=== PATIENT | male | born 1935 | race Caucasian/White ===

== ENCOUNTER 2020-07-23 13:57 | Outpatient (REF) | payer MEDICARE, SELFPAY ==
[2020-07-23 15:44] LABS: Blood Urea Nitrogen 25 mg/dL (9-16); Estimated Glomerular Filt Rate > 60
== END 2020-07-23 13:58 | disposition home or self-care (01) ==
LOC: HO.LAB 13:57
PROVIDERS: PCP Internal Medicine; Visit Provider Internal Medicine
DX: R53.83 Other fatigue (principal)
CPT/HCPCS: 82565; 84520

== ENCOUNTER 2020-07-30 10:23 | Outpatient (REF) | payer MEDICARE, SELFPAY ==
--- NOTE | 2020-07-30 10:27 | CT_ITS ---
EXAMINATION: CT CHEST WITH CONTRAST CLINICAL INFORMATION: Lung nodule. COMPARISON: CT chest 05/07/2020, 10/31/2019 and 03/18/2019. TECHNIQUE: Multidetector volumetric CT imaging of the chest was obtained after the administration of 50 mL of Omnipaque 350 intravenous contrast without immediate adverse reactions. Axial MIP volume rendering provided. Sagittal and coronal reformatted images were obtained. This CT examination was performed using dose optimization techniques as appropriate, variously including the following: *Automated exposure control *Adjustment of mA and/or kV according to patient size (this includes techniques or standardized protocols for targeted exams where dose is matched to indication/reason for exam; i.e. extremities or head) *Use of iterative reconstruction technique DLP: 217 mGy-cm. FINDINGS: CMV DRIVER: Unremarkable. LUNGS: The lungs are hyperinflated with punctate 1-2 mm calcifications in the left lung base and right lung base, stable. These are most likely calcified granulomas. No definite noncalcified nodule or mass seen. MEDIASTINUM: The thyroid lobes are symmetrical and normal. The central trachea and the bronchi are widely patent. The great vessels are normal. Small shotty lymph nodes are seen in the mediastinum. There are coronary artery calcified lesions present. There is no pericardial effusion. Again visualized is a 1.5 x 1.2 cm lesion to the right of esophagus and posterior to the gaurav measuring 40 Hounsfield units. PLEURA: There is no pleural effusion. No pleural mass or thickening. AXILLA: No abnormal lymph nodes seen. The chest wall appears unremarkable. UPPER ABDOMEN: Unremarkable. OSSEOUS STRUCTURES: Again visualized is a left lateral 6th rib nonhealed fracture. No additional fractures seen. No lytic or sclerotic process seen. There is mild ventral spondylosis. CT/CT chest w con IMPRESSION: Stable posterior mediastinal lesion, posterior to the gaurav. It measures 1.5 x 1.2 cm. Previously it measured 1.8 x 1.1 cm and prior to that 1.7 x 1.0 cm. It appears stable. Multiple calcified bibasilar nodules, likely granulomas, are stable.
[2020-07-30] MEDS: iohexoL 350 MG/ML 100 ML INFUS..BTL 65 ML IV (11:11)
== END 2020-07-30 10:24 | disposition home or self-care (01) ==
LOC: HO.CT 10:23
PROVIDERS: PCP Internal Medicine; Visit Provider Internal Medicine
DX: R91.1 Solitary pulmonary nodule (principal)
CPT/HCPCS: 71260; Q9967

== ENCOUNTER 2020-12-14 15:28 | Inpatient (IN) | payer MEDICARE, SELFPAY ==
--- NOTE | ~2020-12-14 | XR_ITS ---
EXAMINATION: XR CHEST CLINICAL INFORMATION: Palpitations COMPARISON: 07/30/2020 TECHNIQUE: Frontal view of the chest was obtained. FINDINGS: Cardiac leads overlie the chest. Lungs are clear. No consolidation, pneumothorax, or pleural effusion. Cardiac and mediastinal contours are normal. Pulmonary vasculature appears normal. No acute osseous findings. Degenerative spondylosis is present in the thoracic spine. Chronic right rotator cuff tear. Osteoarthritis is present in the acromioclavicular and glenohumeral joints. XR/XR chest 1V IMPRESSION: No acute cardiopulmonary findings.
[2020-12-14 15:53] VITALS: BP 184/76; PULSE 42; RESP 18; TEMP 37.1; O2SAT 97; BMI 31.6
--- NOTE | 2020-12-14 16:03 | ED.ARRPALP ---
HPI - Arrhythmia/Palpitations General Chief Complaint: Arrhythmia/Palpitations Stated Complaint: afib Time Seen by Provider: 12/14/20 15:54 Source: patient Mode of arrival: ambulatory Limitations: no limitations History of Present Illness HPI narrative: Patient sent by his primary care doctor for irregular heartbeats patient denies no chest pain no shortness of breath no syncope episode . Patient been feeling dizzy for last 1 week 5 days ago his legs gave out without any syncope . patient does not feel any palpitation never had any heart issues in the past Related Data Home Medications Medication Instructions Recorded Confirmed aspirin 81 mg PO DAILY 12/14/20 12/14/20 atorvastatin 1 tab PO BEDTIME 12/14/20 12/14/20 cholecalciferol (vitamin D3) 1 cap PO DAILY 12/14/20 12/14/20 fluticasone propionate 2 spray INTRANASAL DAILY 12/14/20 12/14/20 insulin aspart U-100 [Novolog 1 sliding scale dose SUBCUT 12/14/20 U-100 Insulin aspart] USEASDIRECTD insulin degludec [Tresiba 88 unit SUBCUT DAILY 12/14/20 12/14/20 FlexTouch U-100] ipratropium-albuterol [Combivent 1 puff INHALATION QID 12/14/20 12/14/20 Respimat] losartan 1 tab PO DAILY 12/14/20 12/14/20 metoprolol succinate 1 tab PO DAILY 12/14/20 12/14/20 mirabegron [Myrbetriq] 1 tab PO DAILY 12/14/20 12/14/20 multivitamin 1 tab PO DAILY 12/14/20 12/14/20 pregabalin 1 cap PO TID 12/14/20 12/14/20 Allergies Allergy/AdvReac Type Severity Reaction Status Date / Time No Known Allergies Allergy Mild N/A Unverified 05/10/20 14:56 Review of Systems Review of Systems: Constitutional : No Weight loss, No Fever, No Chills ENT/Mouth : No sore throat, No Rhinorrhea Eyes: No Eye Pain, No Swelling Cardiovascular : No Chest Pain, no palpitations Respiratory : No Cough, No Sputum, no shortness of breath Gastrointestinal : no Nausea, No Vomiting, No Diarrhea, No abdominal Pain, no black stools Genitourinary : No Dysuria, No Urinary Frequency Musculoskeletal : No joint pain, No Myalgias, No Joint Swelling Skin : No Skin Lesions, No rash Neuro : No Weakness, No Numbness, ++ Dizziness, No Headache Psych : No Anxiety/Panic, No Depression Heme/Lymph: No Bruising, No Lymphadenopathy Endocrine : No Polyuria, No Polydipsia All other systems reviewed and are negative [facility] Past Medical History Medical History CAD (coronary artery disease) Diabetes HLD (hyperlipidemia) HTN (hypertension) Myocardial infarct, old Prostate CA Social History Social History Household Members: Significant Other Housing: House Do you presently have visiting nurse or other home services: No Smoking Status: Former smoker Use of substances other than those prescribed or required for medical reasons: No Have you been hit, kicked, punched, or otherwise hurt by someone within the past year? If so, by whom?: No Do you feel safe in your current relationship?: Yes Is there a partner from a previous relationship who is making you feel unsafe now?: No Are you made to feel afraid or neglected: No Spiritual Healthcare Practices: mu-ism Cultural Healthcare Practices: rare blood rh neg B, would accept Advance Directives: No Advance Directives Information Provided: Yes Advance Directives on File: Yes Do you have thoughts of harming others: None Do you have a plan to hurt others: No Plan Recently lost weight without trying: No Physical Exam Vital Signs: Vital Signs: Last Vital Signs Temp 97.8 F 12/15/20 00:00 Pulse 55 12/15/20 00:00 Resp 20 12/15/20 00:00 BP 165/57 H 12/15/20 00:00 Pulse Ox 97 12/15/20 00:00 Body Mass Index 31.6 Appearance: Alert. Oriented X3. No acute distress. Eyes: Pupils equal, round and reactive to light. ENT: Pharynx normal. Neck: Normal inspection. Neck supple. CVS: Irregularly with frequent PVCs no murmur or gallop. Pulses normal. Respiratory: No respiratory distress. Breath sounds normal. Abdomen: Soft and nontender. Bowel sounds are present, no mass palpable, no CVA tenderness Skin: Skin warm and dry. Normal skin color. Normal skin turgor. Extremities: No lower extremity edema. Neuro: Oriented X 3. No motor deficit. No sensory deficit. MDM - Arrhythmia/Palpitations MDM Narrative Medical decision making narrative: Patient new onset of AFib with bigeminy low platelet counts will admit patient for further evaluation including echo and possible pacemaker placement. Lab Data Attestation: I reviewed the patient's lab results. Result diagrams: 12/14/20 16:03 12/14/20 16:03 Labs: Lab Results 12/14/20 12/14/20 12/14/20 Range/Units 16:03 16:03 16:03 WBC 2.7 L (4.8-10.8) X10*3/uL RBC 4.31 L (4.60-5.80) X10*6/uL Hgb 14.4 (14.0-18.0) g/dl Hct 41.5 L (42-52) % MCV 96.3 (80-98) fL MCH 33.4 H (27.0-33.0) pg MCHC 34.7 (31.0-36.0) g/dl RDW 14.7 (11.0-16.0) % Plt Count 44 L (160-400) X10*3/uL MPV 10.5 (9.4-12.4) fL Immature Gran % (Auto) 1.1 H (0.0-0.4) % Neut % (Auto) 48.1 (45-73) % Lymph % (Auto) 33.1 (20-40) % [place] % (Auto) 16.9 H (2-11) % Eos % (Auto) 0.8 (0-4) % Baso % (Auto) 0.0 (0-2) % Lymph # (Auto) 0.9 L (1.2-4.9) X10*3/uL [place] # (Auto) 0.5 (0.1-1.2) X10*3/uL Eos # (Auto) 0.0 (0.0-0.4) X10*3/uL Baso # (Auto) 0.0 (0.0-0.2) X10*3/uL Abs Immat Gran (auto) 0.03 (0.00-0.03) X10*3/uL Absolute Neuts (auto) 1.3 L (2.0-8.3) X10*3/uL Absolute Nucleated RBC 0.000 (0.0-0.012) X10*3/uL Nucleated RBC % (auto) 0.0 (0.0-0.2) /100WBC Smear Tech's Comments VERIFIED PT 14.2 H (10.8-13.0) SEC INR 1.2 H (0.9-1.1) APTT 32.5 (24.1-38.0) SEC Sodium 135 (135-145) mmol/L Potassium 4.0 (3.3-5.1) mmol/L Chloride 102 (96-108) mmol/L Carbon Dioxide 21 L (22-29) mmol/L Anion Gap 16 (12-20) BUN 34 H (9-16) mg/dL Creatinine 1.37 (0.5-1.4) mg/dL Estim Creat Clear Calc 41.2 Estimated GFR 50 Random Glucose 259 H (60-115) mg/dL Calcium 8.4 (8.4-10.2) mg/dL Magnesium 1.9 (1.6-2.6) mg/dL Total Bilirubin 2.0 H (0.0-1.0) mg/dL Direct Bilirubin 0.8 H (0.0-0.5) mg/dL AST 121 H (5-37) U/L ALT 89 H (0-40) U/L Alkaline Phosphatase 92 (39-117) U/L Troponin I High Sens (<3.5-35.0) ng/L B-Natriuretic Peptide (<100) pg/mL Total Protein 5.8 L (6.5-8.0) g/dL Albumin 3.3 L (3.5-5.0) g/dL TSH 1.67 (0.32-4.0) uIU/mL Urine Color Urine Appearance Urine pH (5.0-8.0) Ur Specific [place] (1.005-1.025) Urine Protein (NEG-TRACE) MG/DL Urine Glucose (UA) (NEG) MG/DL Urine Ketones (NEG) MG/DL Urine Blood (NEG) Urine Nitrite (NEG) Ur Leukocyte Esterase (NEG) Urine RBC (0) /HPF Urine WBC (0-4) /HPF Ur Squamous Epith Cells /LPF Urine Bacteria /LPF COVID-19 ([facility]) (Negative) COVID-19 Clin Com 12/14/20 12/14/20 12/14/20 Range/Units 16:03 16:03 17:02 WBC (4.8-10.8) X10*3/uL RBC (4.60-5.80) X10*6/uL Hgb (14.0-18.0) g/dl Hct (42-52) % MCV (80-98) fL MCH (27.0-33.0) pg MCHC (31.0-36.0) g/dl RDW (11.0-16.0) % Plt Count (160-400) X10*3/uL MPV (9.4-12.4) fL Immature Gran % (Auto) (0.0-0.4) % Neut % (Auto) (45-73) % Lymph % (Auto) (20-40) % [place] % (Auto) (2-11) % Eos % (Auto) (0-4) % Baso % (Auto) (0-2) % Lymph # (Auto) (1.2-4.9) X10*3/uL [place] # (Auto) (0.1-1.2) X10*3/uL Eos # (Auto) (0.0-0.4) X10*3/uL Baso # (Auto) (0.0-0.2) X10*3/uL Abs Immat Gran (auto) (0.00-0.03) X10*3/uL Absolute Neuts (auto) (2.0-8.3) X10*3/uL Absolute Nucleated RBC (0.0-0.012) X10*3/uL Nucleated RBC % (auto) (0.0-0.2) /100WBC Smear Tech's Comments PT (10.8-13.0) SEC INR (0.9-1.1) APTT (24.1-38.0) SEC Sodium (135-145) mmol/L Potassium (3.3-5.1) mmol/L Chloride (96-108) mmol/L Carbon Dioxide (22-29) mmol/L Anion Gap (12-20) BUN (9-16) mg/dL Creatinine (0.5-1.4) mg/dL Estim Creat Clear Calc Estimated GFR Random Glucose (60-115) mg/dL Calcium (8.4-10.2) mg/dL Magnesium (1.6-2.6) mg/dL Total Bilirubin (0.0-1.0) mg/dL Direct Bilirubin (0.0-0.5) mg/dL AST (5-37) U/L ALT (0-40) U/L Alkaline Phosphatase (39-117) U/L Troponin I High Sens 61.4 H (<3.5-35.0) ng/L B-Natriuretic Peptide 111 H (<100) pg/mL Total Protein (6.5-8.0) g/dL Albumin (3.5-5.0) g/dL TSH (0.32-4.0) uIU/mL Urine Color YELLOW Urine Appearance CLEAR Urine pH 5.5 (5.0-8.0) Ur Specific [place] >= 1.030 H (1.005-1.025) Urine Protein 1+ H (NEG-TRACE) MG/DL Urine Glucose (UA) 100 H (NEG) MG/DL Urine Ketones 5 (NEG) MG/DL Urine Blood NEG (NEG) Urine Nitrite NEG (NEG) Ur Leukocyte Esterase NEG (NEG) Urine RBC 0-2 (0) /HPF Urine WBC 0-2 (0-4) /HPF Ur Squamous Epith Cells TRACE /LPF Urine Bacteria TRACE /LPF COVID-19 ([facility]) Negative (Negative) COVID-19 Clin Com See Note 12/14/20 Range/Units 20:38 WBC (4.8-10.8) X10*3/uL RBC (4.60-5.80) X10*6/uL Hgb (14.0-18.0) g/dl Hct (42-52) % MCV (80-98) fL MCH (27.0-33.0) pg MCHC (31.0-36.0) g/dl RDW (11.0-16.0) % Plt Count (160-400) X10*3/uL MPV (9.4-12.4) fL Immature Gran % (Auto) (0.0-0.4) % Neut % (Auto) (45-73) % Lymph % (Auto) (20-40) % [place] % (Auto) (2-11) % Eos % (Auto) (0-4) % Baso % (Auto) (0-2) % Lymph # (Auto) (1.2-4.9) X10*3/uL [place] # (Auto) (0.1-1.2) X10*3/uL Eos # (Auto) (0.0-0.4) X10*3/uL Baso # (Auto) (0.0-0.2) X10*3/uL Abs Immat Gran (auto) (0.00-0.03) X10*3/uL Absolute Neuts (auto) (2.0-8.3) X10*3/uL Absolute Nucleated RBC (0.0-0.012) X10*3/uL Nucleated RBC % (auto) (0.0-0.2) /100WBC Smear Tech's Comments PT (10.8-13.0) SEC INR (0.9-1.1) APTT (24.1-38.0) SEC Sodium (135-145) mmol/L Potassium (3.3-5.1) mmol/L Chloride (96-108) mmol/L Carbon Dioxide (22-29) mmol/L Anion Gap (12-20) BUN (9-16) mg/dL Creatinine (0.5-1.4) mg/dL Estim Creat Clear Calc Estimated GFR Random Glucose (60-115) mg/dL Calcium (8.4-10.2) mg/dL Magnesium (1.6-2.6) mg/dL Total Bilirubin (0.0-1.0) mg/dL Direct Bilirubin (0.0-0.5) mg/dL AST (5-37) U/L ALT (0-40) U/L Alkaline Phosphatase (39-117) U/L Troponin I High Sens 55.8 H (<3.5-35.0) ng/L B-Natriuretic Peptide (<100) pg/mL Total Protein (6.5-8.0) g/dL Albumin (3.5-5.0) g/dL TSH (0.32-4.0) uIU/mL Urine Color Urine Appearance Urine pH (5.0-8.0) Ur Specific [place] (1.005-1.025) Urine Protein (NEG-TRACE) MG/DL Urine Glucose (UA) (NEG) MG/DL Urine Ketones (NEG) MG/DL Urine Blood (NEG) Urine Nitrite (NEG) Ur Leukocyte Esterase (NEG) Urine RBC (0) /HPF Urine WBC (0-4) /HPF Ur Squamous Epith Cells /LPF Urine Bacteria /LPF COVID-19 ([facility]) (Negative) COVID-19 Clin Com ECG Data Attestation: I personally reviewed and interpreted this ECG as follows: Interpretation: Atrial fibrillation with frequent Bigeminy with heart rate 75 beats per minute right bundle-branch block left anterior fascicular block no acute ischemic changes Discharge Plan Discharge Clinical Impression: Near syncope Atrial fibrillation Qualifiers: Atrial fibrillation type: unspecified Qualified Code(s): I48.91 - Unspecified atrial fibrillation Patient Disposition: Admitted As Inpatient Interventions: Admission Worksheet (ED) Last Done: 12/15/20 00:14 Discharge Date/Time: 12/15/20 00:00
[2020-12-14 16:17] VITALS: PULSE 45
[2020-12-14 16:22] LABS: INTERNATIONAL NORM RATIO 1.2 (0.9-1.1); Prothrombin Time 14.2 SEC (10.8-13.0)
[2020-12-14 16:25] LABS: Partial Thromboplastin Time 32.5 SEC (24.1-38.0)
[2020-12-14 16:28] LABS: COVID-19 Test Negative (Negative)
[2020-12-14 16:30] LABS: Eosinophils Percent Auto 0.8 % (0-4); Hematocrit 41.5 % (42-52); Hemoglobin 14.4 g/dl (14.0-18.0); Imm Gran Abs Auto 0.03 X10*3/uL (0.00-0.03); Imm Gran Pct Auto 1.1 % (0.0-0.4); Lymphocytes Absolute Auto 0.9 X10*3/uL (1.2-4.9); Lymphocytes Percent Auto 33.1 % (20-40); MANUAL DIFF FLAG SCAN; Mean Corpuscular HGB Conc 34.7 g/dl (31.0-36.0); Mean Corpuscular Hemoglobin 33.4 pg (27.0-33.0); Mean Corpuscular Volume 96.3 fL (80-98); Mean Platelet Volume 10.5 fL (9.4-12.4); Monocytes Absolute Auto 0.5 X10*3/uL (0.1-1.2); Monocytes Percent Auto 16.9 % (2-11); Neutrophils Absolute Auto 1.3 X10*3/uL (2.0-8.3); Neutrophils Percent Auto 48.1 % (45-73); Red Blood Count 4.31 X10*6/uL (4.60-5.80); Red Cell Distribution Width 14.7 % (11.0-16.0); SCAN SMEAR FLAG 1; White Blood Count 2.7 X10*3/uL (4.8-10.8)
[2020-12-14 16:43] LABS: Platelet Count 44 X10*3/uL (160-400)
[2020-12-14 16:44] LABS: SLIDE REVIEW VERIFIED
[2020-12-14 16:46] LABS: Alanine Aminotransferase 89 U/L (0-40); Albumin Level 3.3 g/dL (3.5-5.0); Alkaline Phosphatase 92 U/L (39-117); Anion Gap 16 (12-20); Aspartate Amino Transferase 121 U/L (5-37); Bilirubin Direct 0.8 mg/dL (0.0-0.5); Blood Urea Nitrogen 34 mg/dL (9-16); Calcium 8.4 mg/dL (8.4-10.2); Carbon Dioxide 21 mmol/L (22-29); Chloride 102 mmol/L (96-108); Creatinine Clr Calc Pharmacy 41.2; Estimated Glomerular Filt Rate 50; Glucose Random 259 mg/dL (60-115); Magnesium 1.9 mg/dL (1.6-2.6); Sodium 135 mmol/L (135-145); Total Protein 5.8 g/dL (6.5-8.0)
[2020-12-14 16:52] LABS: B Type Natriuretic Peptide 111 pg/mL (<100); Troponin-I High Sensitivity 61.4 ng/L (<3.5-35.0)
[2020-12-14 17:06] LABS: Thyroid Stimulating Hormone 1.67 uIU/mL (0.32-4.0)
[2020-12-14 17:19] LABS: Glucose Urine UA 100 MG/DL (NEG); Leukocyte Esterase Urine NEG (NEG); Nitrite Urine NEG (NEG); PH 5.5 (5.0-8.0); Specific Gravity - Urine >= 1.030 (1.005-1.025); Urine Blood NEG (NEG); Urine Ketones 5 MG/DL (NEG); Urine Protein 1+ MG/DL (NEG-TRACE)
[2020-12-14 17:23] LABS: Appearance Urine CLEAR; Color Urine YELLOW
[2020-12-14 17:49] LABS: Bacteria Urine TRACE /LPF; RBC Urine 0-2 /HPF (0); Squamous Epithelial Cell Urine TRACE /LPF; WBC Urine 0-2 /HPF (0-4)
[2020-12-14 18:00] VITALS: BP 134/49; PULSE 35; RESP 18; O2SAT 95
[2020-12-14] MEDS: Aspirin Enteric Coated 81 MG TABLET.DR 162 MG PO (18:10)
[2020-12-14 19:10] VITALS: BP 116/37; PULSE 34; RESP 18; O2SAT 96
[2020-12-14] MEDS: Pregabalin 150 MG CAPSULE PO (19:35)
[2020-12-14 19:42] VITALS: BP 135/77; PULSE 63; RESP 18; TEMP 36.8; O2SAT 96
[2020-12-14 21:33] LABS: Troponin-I High Sensitivity 55.8 ng/L (<3.5-35.0)
[2020-12-14 22:03] VITALS: BP 123/101; PULSE 77; RESP 15; TEMP 36.7; O2SAT 96
--- NOTE | 2020-12-14 22:14 | PM.IMHP ---
History of Present Illness Date of Service: 12/14/20 Chief Complaint: dizziness, weakness 85-year-old male with past medical history coronary artery disease, diabetes, HLD, HTN, prostate cancer presents to the hospital with complaints of dizziness, and weakness. Patient reports that about few days prior to presentation he was standing in the bathroom and his legs gave out and he fell. He denies losing any consciousness, denies feeling any chest pain or palpitations, he just states that he felt like his legs suddenly became significantly weak and he could not stand and he just lowered himself to the floor. He needed help to get up and he was on the floor for short period time. He did not injure his head. He reports that on that same day he had received an injection from his urologist for his prostate cancer and felt that this may have been a reaction to it, he called his urologist's and his urologist did not feel that that was the cause. He reports that he initially felt better the next day but 1 day after that he started feeling dizziness and weakness again. And decided to call his PCP who after seeing him in the office and undergoing EKG asked him to come to the hospital directly. He denies having any headache, change in vision, no chest pain, no palpitations, no diarrhea or constipation, no urinary symptoms, no lower extremity edema, no abdominal pain nausea or vomiting. He denies any numbness tingling but reports chronic neuropathy of his lower legs which have caused him to have difficulty with balance and therefore he uses a cane to get around. Patient's temp of 98.7?, heart rate of 42, respiratory rate of 18, blood pressure 184/76, satting 97% on room air. He had a heart rate as low as 35 while sleeping, and reported dizziness when changing position. Labs are significant for WBC count of 2.7 which patient states is chronic, hemoglobin of 14.4, platelet count of 44, PT of 14.2, INR of 1.2, BUN of 34, creatinine of 1.37 which is slightly elevated from previous visit at 1.14, total bili of 2.0, AST of 121, ALT of 89, high sensitivity troponin of 61.4, repeat 55.8, BNP of 111, albumin of 3.3, UA that is negative for infection, chest x-ray shows no acute cardiopulmonary finding EKG shows bigeminy/ AFib, a shows bifascicular block, Past medical history has blow and confirmed with patient Review of Systems Review of Systems: Yes all other systems are reviewed and are negative [facility] Medical History CAD (coronary artery disease) Diabetes HLD (hyperlipidemia) HTN (hypertension) Myocardial infarct, old Prostate CA Social History Household Members: Significant Other Housing: House Do you presently have visiting nurse or other home services: No Smoking Status: Former smoker Use of substances other than those prescribed or required for medical reasons: No Currently Displaying Signs/Symptoms of Drug Intoxication Withdrawal: No Have you been hit, kicked, punched, or otherwise hurt by someone within the past year? If so, by whom?: No Do you feel safe in your current relationship?: Yes Is there a partner from a previous relationship who is making you feel unsafe now?: No Are you made to feel afraid or neglected: No Spiritual Healthcare Practices: gnosticist Cultural Healthcare Practices: rare blood rh neg B, would accept Advance Directives: No Advance Directives Information Provided: Yes Advance Directives on File: Yes Do you have thoughts of harming others: None Do you have a plan to hurt others: No Plan Recently lost weight without trying: No Meds Allergies Allergy/AdvReac Type Severity Reaction Status Date / Time No Known Allergies Allergy Mild N/A Unverified 05/10/20 14:56 Active Medications: Current Medications Generic Name Dose Route Start Last Admin Trade Name Freq PRN Reason Stop Dose Admin Pharmacy Consult 1 each 12/14/20 19:18 Consult Rx Perform Med Rec MISCELLANE ONCE PRN Consult order Home Medications Medication Instructions Recorded Confirmed Last Taken Type aspirin 81 mg PO DAILY 12/14/20 12/14/20 Unknown History atorvastatin 1 tab PO BEDTIME 12/14/20 12/14/20 12/13/20 History cholecalciferol (vitamin D3) 1 cap PO DAILY 12/14/20 12/14/20 12/14/20 History fluticasone propionate 2 spray INTRANASAL DAILY 12/14/20 12/14/20 Unknown History insulin aspart U-100 [Novolog 1 sliding scale dose SUBCUT 12/14/20 Unknown History U-100 Insulin aspart] USEASDIRECTD insulin degludec [Tresiba 88 unit SUBCUT DAILY 12/14/20 12/14/20 Unknown History FlexTouch U-100] ipratropium-albuterol [Combivent 1 puff INHALATION QID 12/14/20 12/14/20 Unknown History Respimat] losartan 1 tab PO DAILY 12/14/20 12/14/20 Unknown History metoprolol succinate 1 tab PO DAILY 12/14/20 12/14/20 Unknown History mirabegron [Myrbetriq] 1 tab PO DAILY 12/14/20 12/14/20 Unknown History multivitamin 1 tab PO DAILY 12/14/20 12/14/20 Unknown History pregabalin 1 cap PO TID 12/14/20 12/14/20 Unknown History Physical Exam Vital Signs and Narrative: Vital Signs: Last Vital Signs Temp 98.1 F 12/14/20 22:03 Pulse 77 12/14/20 22:03 Resp 15 12/14/20 22:03 BP 123/101 H 12/14/20 22:03 Pulse Ox 96 12/14/20 22:03 Body Mass Index 31.6 Const: General: cooperative and no acute distress Orientation/consciousness: patient oriented x3 Eyes: General: appearance normal, both eyes and all related structures Resp: Effort & Inspection: normal respiratory effort and able to speak in complete sentences Cardio: Other: Irregular heart rate Rhythm: regular rhythm GI: Palpation (GI): Soft to palpation Auscultation: normal bowel sounds Skin: General skin exam: no rashes or lesions noted Neuro: General: patient oriented x3 Cognition (Neuro): normal cognition Extrem: General: Yes normal to inspection and Yes no pedal edema Results Labs CBC and Chem 7: 12/14/20 16:03 12/14/20 16:03 Labs: Laboratory Results - last 24 hr 12/14/20 12/14/20 12/14/20 16:03 16:03 16:03 MCV 96.3 MCH 33.4 H MCHC 34.7 RDW 14.7 Plt Count 44 L MPV 10.5 Immature Gran % (Auto) 1.1 H Neut % (Auto) 48.1 Lymph % (Auto) 33.1 [place] % (Auto) 16.9 H Eos % (Auto) 0.8 Baso % (Auto) 0.0 Lymph # (Auto) 0.9 L [place] # (Auto) 0.5 Eos # (Auto) 0.0 Baso # (Auto) 0.0 Abs Immat Gran (auto) 0.03 Absolute Neuts (auto) 1.3 L Absolute Nucleated RBC 0.000 Nucleated RBC % (auto) 0.0 Smear Tech's Comments VERIFIED PT 14.2 H INR 1.2 H APTT 32.5 Anion Gap 16 Estim Creat Clear Calc 41.2 Estimated GFR 50 Random Glucose 259 H Calcium 8.4 Magnesium 1.9 Total Bilirubin 2.0 H Direct Bilirubin 0.8 H AST 121 H ALT 89 H Alkaline Phosphatase 92 Troponin I High Sens B-Natriuretic Peptide Total Protein 5.8 L Albumin 3.3 L TSH 1.67 Urine Color Urine Appearance Urine pH Ur Specific [place] Urine Protein Urine Glucose (UA) Urine Ketones Urine Blood Urine Nitrite Ur Leukocyte Esterase Urine RBC Urine WBC Ur Squamous Epith Cells Urine Bacteria COVID-19 ([facility]) COVID-19 Clin ULTRA Testing 12/14/20 12/14/20 12/14/20 16:03 16:03 17:02 MCV MCH MCHC RDW Plt Count MPV Immature Gran % (Auto) Neut % (Auto) Lymph % (Auto) [place] % (Auto) Eos % (Auto) Baso % (Auto) Lymph # (Auto) [place] # (Auto) Eos # (Auto) Baso # (Auto) Abs Immat Gran (auto) Absolute Neuts (auto) Absolute Nucleated RBC Nucleated RBC % (auto) Smear Tech's Comments PT INR APTT Anion Gap Estim Creat Clear Calc Estimated GFR Random Glucose Calcium Magnesium Total Bilirubin Direct Bilirubin AST ALT Alkaline Phosphatase Troponin I High Sens 61.4 H B-Natriuretic Peptide 111 H Total Protein Albumin TSH Urine Color YELLOW Urine Appearance CLEAR Urine pH 5.5 Ur Specific [place] >= 1.030 H Urine Protein 1+ H Urine Glucose (UA) 100 H Urine Ketones 5 Urine Blood NEG Urine Nitrite NEG Ur Leukocyte Esterase NEG Urine RBC 0-2 Urine WBC 0-2 Ur Squamous Epith Cells TRACE Urine Bacteria TRACE COVID-19 ([facility]) Negative COVID-19 Clin Com See Note 12/14/20 20:38 MCV MCH MCHC RDW Plt Count MPV Immature Gran % (Auto) Neut % (Auto) Lymph % (Auto) [place] % (Auto) Eos % (Auto) Baso % (Auto) Lymph # (Auto) [place] # (Auto) Eos # (Auto) Baso # (Auto) Abs Immat Gran (auto) Absolute Neuts (auto) Absolute Nucleated RBC Nucleated RBC % (auto) Smear Tech's Comments PT INR APTT Anion Gap Estim Creat Clear Calc Estimated GFR Random Glucose Calcium Magnesium Total Bilirubin Direct Bilirubin AST ALT Alkaline Phosphatase Troponin I High Sens 55.8 H B-Natriuretic Peptide Total Protein Albumin TSH Urine Color Urine Appearance Urine pH Ur Specific [place] Urine Protein Urine Glucose (UA) Urine Ketones Urine Blood Urine Nitrite Ur Leukocyte Esterase Urine RBC Urine WBC Ur Squamous Epith Cells Urine Bacteria COVID-19 ([facility]) COVID-19 Clin Com Imaging Radiologist's Impressions: Impressions Chest X-Ray 12/14/20 15:55 IMPRESSION: No acute cardiopulmonary findings. Assessment and Plan (1) Atrial fibrillation: Qualifiers: Atrial fibrillation type: unspecified Qualified Code(s): I48.91 - Unspecified atrial fibrillation Status: Acute (2) Dizziness: Status: Acute (3) Near syncope: Status: Acute (4) Sick sinus syndrome: Status: Acute (5) Pancytopenia: Status: Acute This is an 85-year-old male who presents to the hospital with complaints of dizziness found to have bigeminy/AFib with bradycardia on EKG # dizziness/presyncopeSinus syndrome - most likely secondary to sick sinus syndrome as patient's EKG revealing bigeminy with an atrial fibrillation rhythm, and bradycardia with rates dropping to the 30s - will stop his metoprolol - echocardiogram - consult cardiology - possibly pacemaker placement # atrial fibrillation - new onset - has history of coronary artery disease - will obtain echocardiogram - hold metoprolol and setting of symptomatic bradycardia/sick sinus syndrome - cardiology consult - discuss in detail the risk versus benefits of anticoagulation, patient would like to decide once he speaks to retail merchandising manager # pancytopenia - has leukopenia, thrombocytopenia - reports chronic with no evaluation in the past - given patient need for anticoagulation for his current to new onset AFib will consult Hematology-Oncology for further workup of his pancytopenia possibly outpatient # CAD - continue aspirin, hold metoprolol - no chest pain at this time # diabetes - patient reports that he takes 80 units of long-acting insulin in the morning but has been having low sugars - advised to discuss insulin adjustment with his PCP - at this time will switch degludec to Lantus - monitor glucose - diabetic diet # HTN - stable - continue losartan # diabetic neuropathy - continue pregabalin DVT prophylaxis: SCDs
[2020-12-14 23:01] LABS: Calcium 8.7 mg/dL (8.4-10.2)
--- NOTE | 2020-12-14 23:22 | PC.NURSE ---
called [phone] for report once. unable to receive report.
[2020-12-15] VITALS (9 sets, daily range): BP systolic 107–165; BP diastolic 57–76; PULSE 37–63; RESP 16–20; TEMP 36–36.6; O2SAT 95–100; BMI 33.3
[2020-12-15] MEDS: Pregabalin 150 MG CAPSULE PO ×4 (01:33→22:26)
[2020-12-15] MEDS: Atorvastatin Calcium 40 MG TABLET PO ×2 (01:34→22:26)
[2020-12-15] MEDS: 0.9 % Sodium Chloride Flush 3 ML SYRINGE IVFLUSH ×3 (01:39→17:34)
[2020-12-15 06:58] LABS: Basophils Percent Auto 0.4 % (0-2); Eosinophils Percent Auto 0.7 % (0-4); Hematocrit 39.4 % (42-52); Hemoglobin 13.1 g/dl (14.0-18.0); Imm Gran Abs Auto 0.03 X10*3/uL (0.00-0.03); Imm Gran Pct Auto 1.1 % (0.0-0.4); Lymphocytes Absolute Auto 1.3 X10*3/uL (1.2-4.9); Lymphocytes Percent Auto 45.9 % (20-40); MANUAL DIFF FLAG SCAN; Mean Corpuscular HGB Conc 33.2 g/dl (31.0-36.0); Mean Corpuscular Hemoglobin 32.4 pg (27.0-33.0); Mean Corpuscular Volume 97.5 fL (80-98); Mean Platelet Volume 12.1 fL (9.4-12.4); Monocytes Absolute Auto 0.4 X10*3/uL (0.1-1.2); Monocytes Percent Auto 15.8 % (2-11); Neutrophils Percent Auto 36.1 % (45-73); Red Blood Count 4.04 X10*6/uL (4.60-5.80); Red Cell Distribution Width 14.8 % (11.0-16.0); SCAN SMEAR FLAG 1; White Blood Count 2.8 X10*3/uL (4.8-10.8)
[2020-12-15 06:59] LABS: Anion Gap 11 (12-20); Blood Urea Nitrogen 32 mg/dL (9-16); Calcium 8.3 mg/dL (8.4-10.2); Carbon Dioxide 28 mmol/L (22-29); Chloride 103 mmol/L (96-108); Creatinine Clr Calc Pharmacy 45.6; Estimated Glomerular Filt Rate 54; Glucose Random 223 mg/dL (60-115); Potassium 4.6 mmol/L (3.3-5.1); Sodium 137 mmol/L (135-145)
[2020-12-15 07:03] LABS: Platelet Count 47 X10*3/uL (160-400)
[2020-12-15 07:18] LABS: Glucose, Whole Blood 188 mg/dL (60-115)
[2020-12-15 07:23] LABS: SLIDE REVIEW VERIFIED
[2020-12-15] MEDS: Albuterol/Iprat 2.5/0.5MG 3 ML AMPUL.NEB INHALE ×2 (07:40→19:55)
[2020-12-15] MEDS: Aspirin Enteric Coated 81 MG TABLET.DR PO (08:49)
[2020-12-15] MEDS: Mirabegron 25 MG TAB.ER.24H PO (08:49)
[2020-12-15] MEDS: Insulin Lispro 100 UNIT/ML 3 ML VIAL SUBCUT ×4 (08:49→20:56)
[2020-12-15] MEDS: Multivitamin TABLET 1 TAB PO (08:49)
[2020-12-15] MEDS: Insulin Glargine,Hum.rec.anlog 100 UNIT/ML 10 ML VIAL 60 UNIT SUBCUT (08:49)
[2020-12-15] MEDS: Losartan Potassium 25 MG TABLET PO (08:50)
--- NOTE | 2020-12-15 09:51 | P.PNIM_ITS ---
Subjective Subjective Date of Service: 12/15/20 Interval History: Pt feels better this am. Denies any dizziness, no chest pain , no n/v, no abdominal pain. Slightly frustrated that he hasnt been able to reach his and that his breakfast hasnt come yet but otherwise, feeling well. Physical Exam Vital Signs: Vital Signs: Last Vital Signs Temp 97.1 F 12/15/20 07:51 Pulse 57 12/15/20 07:51 Resp 20 12/15/20 07:51 BP 148/76 H 12/15/20 07:51 Pulse Ox 100 12/15/20 07:51 Body Mass Index 33.3 Const: General: cooperative and no acute distress Orientation/consci ousness: patient oriented x3 Eyes: General: appearance normal, both eyes and all related structures Resp: Effort & Inspection: normal respiratory effort and able to speak in complete sentences Cardio: Rate: bradycardic Rhythm: abnormal rhythm GI: Palpation (GI): Soft to palpation Auscultation: normal bowel sounds Skin: General skin exam: no rashes or lesions noted Neuro: General: patient oriented x3 Cognition (Neuro): normal cognition Extrem: General: Yes normal to inspection and Yes no pedal edema Objective Data Current Medications Generic Name Dose Route Start Last Admin Trade Name Freq PRN Reason Stop Dose Admin Acetaminophen 650 mg 12/14/20 22:26 Acetaminophen 325 Mg Tablet PO Q6H PRN Pain, Mild (Pain Scale 1-3) Al Hydroxide/Mg Hydroxide 30 ml 12/14/20 22:26 Magnesium Hydrox/Alum Hydrox 30 Ml Oral.Susp PO Q4H PRN Heartburn/Nausea Albuterol/Ipratropium 3 ml 12/15/20 08:00 12/15/20 07:40 Albuterol/Iprat 2.5/0.5mg 3 Ml Ampul.Neb INHALE 3 ml RQID [facility] Administration Aspirin 81 mg 12/15/20 09:00 12/15/20 08:49 Aspirin Enteric Coated 81 Mg Tablet. PO 81 mg DAILY [facility] Administration Atorvastatin Calcium 40 mg 12/15/20 21:00 12/15/20 01:34 Atorvastatin Calcium 40 Mg Tablet PO 40 mg BEDTIME [facility] Administration Docusate Sodium 100 mg 12/14/20 22:26 Docusate Sodium 100 Mg Capsule PO DAILY PRN Constipation Fluticasone Propionate 2 spray 12/15/20 09:00 12/15/20 08:51 Fluticasone Propionate Nasal 16 Gm [place] NOSTRIL-B Not Given DAILY [facility] Insulin Glargine 60 unit 12/15/20 09:00 12/15/20 08:49 Insulin Glargine,Hum.Rec.Anlog 100 Unit/Ml 10 Ml Vial SUBCUT 60 unit DAILY [facility] Administration Insulin Human Lispro 0 unit 12/15/20 07:30 12/15/20 08:49 Insulin Lispro 100 Unit/Ml 3 Ml Vial SUBCUT 2 unit QIDACHS [facility] Administration Protocol Losartan Potassium 25 mg 12/15/20 09:00 12/15/20 08:50 Losartan Potassium 25 Mg Tablet PO 25 mg DAILY [facility] Administration Protocol Mirabegron 25 mg 12/15/20 09:00 12/15/20 08:49 Mirabegron 25 Mg Tab.Er.24h PO 25 mg DAILY [facility] Administration Multivitamins/Vitamin C 1 tab 12/15/20 09:00 12/15/20 08:49 Multivitamin Tablet PO 1 tab DAILY [facility] Administration Pharmacy Consult 1 each 12/14/20 19:18 Consult Rx Perform Med Rec MISCELLANE ONCE PRN Consult order Pregabalin 150 mg 12/15/20 09:00 12/15/20 08:49 Pregabalin 150 Mg Capsule PO 150 mg TID [facility] Administration Sodium Chloride 3 ml 12/15/20 00:00 12/15/20 08:48 0.9 % Sodium Chloride Flush 3 Ml Syringe IVFLUSH 3 ml QSHIFT [facility] Administration Labs CBC & Chem 7: 12/15/20 05:30 12/15/20 05:30 Assessment and Plan (1) Pancytopenia: Status: Acute (2) Sick sinus syndrome: Status: Acute (3) Dizziness: Status: Acute (4) Atrial fibrillation: Status: Acute (5) Near syncope: Status: Acute Assessment and Plan: This is an 85-year-old male who presents to the hospital with complaints of dizziness found to have bigeminy/AFib with bradycardia on EKG # dizziness/presyncope - most likely secondary to sick sinus syndrome as patient's EKG revealing bigeminy with an atrial fibrillation rhythm, - Pt aslo bradycardic with HRs as low as 30s. 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 # pancytopenia - has leukopenia, thrombocytopenia - reports chronic with no evaluation in the past - given patient need for anticoagulation for his current to new onset AFib will consult Hematology-Oncology for further workup of his pancytopenia possibly outpatient # CAD - continue aspirin, hold metoprolol - no chest pain at this time # diabetes - patient reports that he takes 80 units of long-acting insulin in the morning but has been having low sugars - advised to discuss insulin adjustment with his PCP - at this time will switch degludec to Lantus - monitor glucose and will add LDSSI - diabetic diet # HTN - stable - continue losartan # diabetic neuropathy - continue pregabalin DVT prophylaxis: SCDs in the setting of thrombocytopenia
--- NOTE | 2020-12-15 11:22 | P.CONCA_ITS ---
History of Present Illness History of Present Illness Date of Service: 12/15/20 Requesting physician: Robert Hsieh Consult reason: atrial fibrillation Chief complaint: New onset Afib Narrative: Thank you for asking us to consult on [place] for new onset atrial fibrillation and bradycardia with symptoms of lightheadedness. 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 On Thursday received a shot for prostate cancer and subsequently went home and while he was in the bathroom he suddenly felt weak in his legs and went to the ground. He did not have any dizziness, lightheadedness, loss of consciousness. No palpitations, chest pain, shortness of breath. He had to call his son-in-law will help him up and then subsequently continued to be dizzy. Subsequently on Thursday he went to his primary care physician we examine in and subsequently did EKG and was told that he needs to go to the hospital. EKG is not available to me at this point time. However when he came to the hospital was noted to be in atrial fibrillation with bigeminal rhythm with PVCs. His metoprolol was subsequently held as he was having bradycardia overnight. Cardiology consult was sought for further management. Currently not complaining of any dizziness. After holding his beta-blockers, this morning his heart rate is in the 70s with frequent PVCs. His troponin is mildly elevated blood flat. He denies any prior history of atrial fibrillation. Denies any recent exertional chest pain. Denies shortness of breath, orthopnea, PND. He does walk long distance but has to use a cane because after he walks long distance when he stops he gets imbalance. He has not had any falls. He says he has had low blood counts for many years, no clear etiology. Review of Systems Constitutional: Constitutional: Denies body ache(s), Denies chills, Denies fever(s) and Denies lethargy Cardiovascular: Cardiovascular: Denies chest pain, Reports lightheadedness, Denies palpitations, Denies dyspnea and Denies orthopnea Respiratory: Respiratory: Reports no additional respiratory complaints and Denies dyspnea Gastrointestinal: Gastrointestinal: Reports no additional gastrointestinal complaints Genitourinary: Genitourinary: Reports no additional male genitourinary complaints Musculoskeletal: Musculoskeletal: Reports no additional musculoskeletal complaints Neurologic: Reports system reviewed and no additional complaints, except as documented Psychiatric: Psychiatric: Reports no additional psychiatric complaints Endocrine: Endocrine: Reports no additional endocrine complaints and Denies palpitations Hematologic/Lymphatic: Hematologic/Lymphatic: Reports no additional hematologic/lymphatic complaints Allergic/Immunologic: Allergic/Immunologic: Reports no additional allergic/immunologic complaints [facility] Past Medical History Medical History (Updated 12/15/20 @ 11:28 by Titi Deluca MD) Bifascicular block CAD (coronary artery disease) Diabetes HLD (hyperlipidemia) HTN (hypertension) Myocardial infarct, old Prostate CA Social History Social History Household Members: Significant Other Housing: House Do you presently have visiting nurse or other home services: No Smoking Status: Former smoker Use of substances other than those prescribed or required for medical reasons: No Currently Displaying Signs/Symptoms of Drug Intoxication Withdrawal: No Have you been hit, kicked, punched, or otherwise hurt by someone within the past year? If so, by whom?: No Do you feel safe in your current relationship?: Yes Is there a partner from a previous relationship who is making you feel unsafe now?: No Are you made to feel afraid or neglected: No Spiritual Healthcare Practices: rastafarian Cultural Healthcare Practices: rare blood rh neg B, would accept Advance Directives: No Advance Directives Information Provided: Yes Advance Directives on File: Yes Do you have thoughts of harming others: None Do you have a plan to hurt others: No Plan Recently lost weight without trying: No Meds Allergies Allergy/AdvReac Type Severity Reaction Status Date / Time No Known Allergies Allergy Mild N/A Unverified 05/10/20 14:56 Active Medications: Current Medications Generic Name Dose Route Start Last Admin Trade Name Freq PRN Reason Stop Dose Admin Acetaminophen 650 mg 12/14/20 22:26 Acetaminophen 325 Mg Tablet PO Q6H PRN Pain, Mild (Pain Scale 1-3) Al Hydroxide/Mg Hydroxide 30 ml 12/14/20 22:26 Magnesium Hydrox/Alum Hydrox 30 Ml Oral.Susp PO Q4H PRN Heartburn/Nausea Albuterol/Ipratropium 3 ml 12/15/20 08:00 12/15/20 11:10 Albuterol/Iprat 2.5/0.5mg 3 Ml Ampul.Neb INHALE Not Given RQID [facility] Aspirin 81 mg 12/15/20 09:00 12/15/20 08:49 Aspirin Enteric Coated 81 Mg Tablet. PO 81 mg DAILY [facility] Administration Atorvastatin Calcium 40 mg 12/15/20 21:00 12/15/20 01:34 Atorvastatin Calcium 40 Mg Tablet PO 40 mg BEDTIME [facility] Administration Docusate Sodium 100 mg 12/14/20 22:26 Docusate Sodium 100 Mg Capsule PO DAILY PRN Constipation Fluticasone Propionate 2 spray 12/15/20 09:00 12/15/20 08:51 Fluticasone Propionate Nasal 16 Gm [place] NOSTRIL-B Not Given DAILY [facility] Insulin Glargine 60 unit 12/15/20 09:00 12/15/20 08:49 Insulin Glargine,Hum.Rec.Anlog 100 Unit/Ml 10 Ml Vial SUBCUT 60 unit DAILY [facility] Administration Insulin Human Lispro 0 unit 12/15/20 07:30 12/15/20 08:49 Insulin Lispro 100 Unit/Ml 3 Ml Vial SUBCUT 2 unit QIDACHS [facility] Administration Protocol Losartan Potassium 25 mg 12/15/20 09:00 12/15/20 08:50 Losartan Potassium 25 Mg Tablet PO 25 mg DAILY [facility] Administration Protocol Mirabegron 25 mg 12/15/20 09:00 12/15/20 08:49 Mirabegron 25 Mg Tab.Er.24h PO 25 mg DAILY [facility] Administration Multivitamins/Vitamin C 1 tab 12/15/20 09:00 12/15/20 08:49 Multivitamin Tablet PO 1 tab DAILY [facility] Administration Pharmacy Consult 1 each 12/14/20 19:18 Consult Rx Perform Med Rec MISCELLANE ONCE PRN Consult order Pregabalin 150 mg 12/15/20 09:00 12/15/20 08:49 Pregabalin 150 Mg Capsule PO 150 mg TID [facility] Administration Sodium Chloride 3 ml 12/15/20 00:00 12/15/20 08:48 0.9 % Sodium Chloride Flush 3 Ml Syringe IVFLUSH 3 ml QSHIFT [facility] Administration Home Medications Medication Instructions Recorded Confirmed Last Taken Type aspirin 81 mg PO DAILY 12/14/20 12/14/20 Unknown History atorvastatin 1 tab PO BEDTIME 12/14/20 12/14/20 12/13/20 History cholecalciferol (vitamin D3) 1 cap PO DAILY 12/14/20 12/14/20 12/14/20 History fluticasone propionate 2 spray INTRANASAL DAILY 12/14/20 12/14/20 Unknown History insulin aspart U-100 [Novolog 1 sliding scale dose SUBCUT 12/14/20 Unknown History U-100 Insulin aspart] USEASDIRECTD insulin degludec [Tresiba 88 unit SUBCUT DAILY 12/14/20 12/14/20 Unknown History FlexTouch U-100] ipratropium-albuterol [Combivent 1 puff INHALATION QID 12/14/20 12/14/20 Unknown History Respimat] losartan 1 tab PO DAILY 12/14/20 12/14/20 Unknown History metoprolol succinate 1 tab PO DAILY 12/14/20 12/14/20 Unknown History mirabegron [Myrbetriq] 1 tab PO DAILY 12/14/20 12/14/20 Unknown History multivitamin 1 tab PO DAILY 12/14/20 12/14/20 Unknown History pregabalin 1 cap PO TID 12/14/20 12/14/20 Unknown History Physical Exam Vital Signs: Vital Signs: Last Vital Signs Temp 97.1 F 12/15/20 07:51 Pulse 57 12/15/20 07:51 Resp 20 12/15/20 07:51 BP 148/76 H 12/15/20 07:51 Pulse Ox 100 12/15/20 07:51 Body Mass Index 33.3 Const: General: cooperative, comfortable, alert and awake Nutritional Appearance: obese Orientation/consciousness: patient oriented x3 HENMT: Head: Yes normocephalic and Yes atraumatic Neck: Neck: Yes trachea midline, Yes supple and Yes no JVD Resp: Effort & Inspection: normal respiratory effort Cardio: Jugular venous distension: no JVD Rhythm: abnormal rhythm ir regularly irregular Heart sounds: S1 normal heart sound present, S2 normal heart sound present and Murmur heart sound present systolic GI: Auscultation: normal bowel sounds Skin: General skin exam: no rashes or lesions noted Neuro: General: patient oriented x3 and no focal motor deficits Extrem: General: Yes no clubbing, cyanosis or edema Psych: Appearance: grossly normal Results Labs and Meds Result diagrams: 12/15/20 05:30 12/15/20 05:30 Lab results: Laboratory Results - last 24 hr 12/14/20 12/14/20 12/14/20 16:03 16:03 16:03 WBC 2.7 L RBC 4.31 L Hgb 14.4 Hct 41.5 L MCV 96.3 MCH 33.4 H MCHC 34.7 RDW 14.7 Plt Count 44 L MPV 10.5 Immature Gran % (Auto) 1.1 H Neut % (Auto) 48.1 Lymph % (Auto) 33.1 [place] % (Auto) 16.9 H Eos % (Auto) 0.8 Baso % (Auto) 0.0 Lymph # (Auto) 0.9 L [place] # (Auto) 0.5 Eos # (Auto) 0.0 Baso # (Auto) 0.0 Abs Immat Gran (auto) 0.03 Absolute Neuts (auto) 1.3 L Absolute Nucleated RBC 0.000 Nucleated RBC % (auto) 0.0 Smear Tech's Comments VERIFIED PT 14.2 H INR 1.2 H APTT 32.5 Sodium 135 Potassium 4.0 Chloride 102 Carbon Dioxide 21 L Anion Gap 16 BUN 34 H Creatinine 1.37 Estim Creat Clear Calc 41.2 Estimated GFR 50 POC Glucose Random Glucose 259 H Calcium 8.4 Magnesium 1.9 Total Bilirubin 2.0 H Direct Bilirubin 0.8 H AST 121 H ALT 89 H Alkaline Phosphatase 92 Troponin I High Sens B-Natriuretic Peptide Total Protein 5.8 L Albumin 3.3 L TSH 1.67 Urine Color Urine Appearance Urine pH Ur Specific [place] Urine Protein Urine Glucose (UA) Urine Ketones Urine Blood Urine Nitrite Ur Leukocyte Esterase Urine RBC Urine WBC Ur Squamous Epith Cells Urine Bacteria COVID-19 ([facility]) COVID-19 Clin Com 12/14/20 12/14/20 12/14/20 16:03 16:03 17:02 WBC RBC Hgb Hct MCV MCH MCHC RDW Plt Count MPV Immature Gran % (Auto) Neut % (Auto) Lymph % (Auto) [place] % (Auto) Eos % (Auto) Baso % (Auto) Lymph # (Auto) [place] # (Auto) Eos # (Auto) Baso # (Auto) Abs Immat Gran (auto) Absolute Neuts (auto) Absolute Nucleated RBC Nucleated RBC % (auto) Smear Tech's Comments PT INR APTT Sodium Potassium Chloride Carbon Dioxide Anion Gap BUN Creatinine Estim Creat Clear Calc Estimated GFR POC Glucose Random Glucose Calcium Magnesium Total Bilirubin Direct Bilirubin AST ALT Alkaline Phosphatase Troponin I High Sens 61.4 H B-Natriuretic Peptide 111 H Total Protein Albumin TSH Urine Color YELLOW Urine Appearance CLEAR Urine pH 5.5 Ur Specific [place] >= 1.030 H Urine Protein 1+ H Urine Glucose (UA) 100 H Urine Ketones 5 Urine Blood NEG Urine Nitrite NEG Ur Leukocyte Esterase NEG Urine RBC 0-2 Urine WBC 0-2 Ur Squamous Epith Cells TRACE Urine Bacteria TRACE COVID-19 ([facility]) Negative COVID-19 Clin Com See Note 12/14/20 12/14/20 12/15/20 20:38 22:36 05:30 WBC 2.8 L RBC 4.04 L Hgb 13.1 L Hct 39.4 L MCV 97.5 MCH 32.4 MCHC 33.2 RDW 14.8 Plt Count 47 L MPV 12.1 Immature Gran % (Auto) 1.1 H Neut % (Auto) 36.1 L Lymph % (Auto) 45.9 H [place] % (Auto) 15.8 H Eos % (Auto) 0.7 Baso % (Auto) 0.4 Lymph # (Auto) 1.3 [place] # (Auto) 0.4 Eos # (Auto) 0.0 Baso # (Auto) 0.0 Abs Immat Gran (auto) 0.03 Absolute Neuts (auto) 1.0 L Absolute Nucleated RBC 0.000 Nucleated RBC % (auto) 0.0 Smear Tech's Comments VERIFIED PT INR APTT Sodium Potassium Chloride Carbon Dioxide Anion Gap BUN Creatinine Estim Creat Clear Calc Estimated GFR POC Glucose Random Glucose Calcium 8.7 Magnesium Total Bilirubin Direct Bilirubin AST ALT Alkaline Phosphatase Troponin I High Sens 55.8 H B-Natriuretic Peptide Total Protein Albumin TSH Urine Color Urine Appearance Urine pH Ur Specific [place] Urine Protein Urine Glucose (UA) Urine Ketones Urine Blood Urine Nitrite Ur Leukocyte Esterase Urine RBC Urine WBC Ur Squamous Epith Cells Urine Bacteria COVID-19 ([facility]) COVID-19 Clin Com 12/15/20 12/15/20 05:30 07:14 WBC RBC Hgb Hct MCV MCH MCHC RDW Plt Count MPV Immature Gran % (Auto) Neut % (Auto) Lymph % (Auto) [place] % (Auto) Eos % (Auto) Baso % (Auto) Lymph # (Auto) [place] # (Auto) Eos # (Auto) Baso # (Auto) Abs Immat Gran (auto) Absolute Neuts (auto) Absolute Nucleated RBC Nucleated RBC % (auto) Smear Tech's Comments PT INR APTT Sodium 137 Potassium 4.6 Chloride 103 Carbon Dioxide 28 Anion Gap 11 L BUN 32 H Creatinine 1.27 Estim Creat Clear Calc 45.6 Estimated GFR 54 POC Glucose 188 H Random Glucose 223 H Calcium 8.3 L Magnesium Total Bilirubin Direct Bilirubin AST ALT Alkaline Phosphatase Troponin I High Sens B-Natriuretic Peptide Total Protein Albumin TSH Urine Color Urine Appearance Urine pH Ur Specific [place] Urine Protein Urine Glucose (UA) Urine Ketones Urine Blood Urine Nitrite Ur Leukocyte Esterase Urine RBC Urine WBC Ur Squamous Epith Cells Urine Bacteria COVID-19 ([facility]) COVID-19 Clin Com Imaging Radiologist's impression: Impressions Chest X-Ray 12/14/20 15:55 IMPRESSION: No acute cardiopulmonary findings. Assessment and Plan (1) Dizziness: Status: Acute Symptoms of dizziness which are of unclear etiology but could be related to new onset atrial fibrillation and/or bradycardia. Currently asymptomatic. Heart rate is much improved. Patient remains in atrial fibrillation at this point time. Will continue to monitor with full disclosure cardiac telemetry. (2) Atrial fibrillation: Qualifiers: Atrial fibrillation type: unspecified Qualified Code(s): I48.91 - Unspecified atrial fibrillation Status: Acute New onset atrial fibrillation. Patient with no prior history of atrial fibrillation. Currently rate is adequately controlled. Given nocturnal bradycardia and symptoms of dizziness hold off on any rate control medications at this point time.CHADSVASc score of at least 5. However he also has significant thrombocytopenia. Agree with Hematology consult. He is currently on aspirin therapy and can be switched to Eliquis for oral anticoagulation with similar bleeding risk, however would like Hematology input to decide if he would be a good candidate for oral anticoagulation therapy. Currently would hold off on rate control versus rhythm control discussion as not sure if this symptoms at directly related to atrial fibrillation. Duration of atrial fibrillation is not known at this point in time. Will obtain an echocardiogram to assess for LV systolic and diastolic function and biatrial chamber size. (3) Bradycardia: Status: Acute Noted bradycardia overnight with underlying bifascicular block. Could represent conduction system disease. Currently his metoprolol has been discontinued. This is appropriate. No need for pacing therapy at this point time unless he has recurrent significant bradycardia without rate control medication and/or develops tachyarrhythmia that requires rate slowing medications. Will continue to monitor. Will follow with the patient. (4) Bifascicular block: Status: Acute
[2020-12-15 11:36] LABS: Glucose, Whole Blood 411 mg/dL (60-115)
--- NOTE | 2020-12-15 12:27 | P.CNHO_ITS ---
Subjective - Subjective Patient: new to practice Consult date: 12/15/20 (thrombocytopenia) Primary Care Provider: Jewel Rebolledo MD HPI - Consult Narrative Reason for consult: thrombocytopenia and leucopenia Narrative: Jewel Canales is a 85 year old male He is an 85 year old man with mild cytopenias going back as far as 1996. The platelet count was about 90k in 2018. The PCP is Dr. Rebolledo who uses [facility] in his office. He has had no bleeding or serious infections in recent years. In [address] of lthe abdomen the spleen was not enlarged. He was seen and examinedltoday and seems stable. The platelet count is 44K repeat 47K. I spoke with Dr. Deluca who says he meets criteria for anticoagulation. Eliquis can be considered. Warfarin might be easier to reverse with FFP than Eliquis in the event of serious bleeding. The cause of the hematologic abnormalities is unclear. I will check with Dr. Rebolledo for recent office platelet counts. Review of Systems - Constitutional Reports daytime sleepiness - Respiratory Reports change in phlegm color - Gastrointestinal Reports other - Genitourinary Genitourinary: Reports frequent nighttime urination - Musculoskeletal Reports other - Neurologic Reports system reviewed and no additional complaints, except as documented, Reports hearing normal [facility] Medical History: Medical History (Last Updated 12/15/20 @ 11:28 by Titi Deluca MD) Bifascicular block CAD (coronary artery disease) Diabetes HLD (hyperlipidemia) HTN (hypertension) Myocardial infarct, old Prostate CA Social History: Social History (Last Reviewed 12/15/20 @ 11:26 by Titi Deluca MD) Living Situation History: Household Members: Significant Other Housing: House Do you presently have visiting nurse or other home services: No Tobacco History: Smoking Status: Former smoker Substance Use History: Use of substances other than those prescribed or required for medical reasons : No Currently Displaying Signs/Symptoms of Drug Intoxication Withdrawal: No Domestic Abuse History: Have you been hit, kicked, punched, or otherwise hurt by someone within the past year? If so, by whom?: No Do you feel safe in your current relationship?: Yes Is there a partner from a previous relationship who is making you feel unsafe now?: No Are you made to feel afraid or neglected: No Healthcare Practices: Spiritual Healthcare Practices: church Cultural Healthcare Practices: rare blood rh neg B, would accept Advance Directives: Advance Directives: No Advance Directives Information Provided: Yes Advance Directives on File: Yes Homicidal Assessment: Do you have thoughts of harming others: None Do you have a plan to hurt others: No Plan Nutrition Assessment: Recently lost weight without trying: No Smoking status: Former smoker Home Medications and Allergies Current Medications: Current Medications Generic Name Dose Route Start Last Admin Trade Name Shantell PRN Reason Stop Dose Admin Acetaminophen 650 mg 12/14/20 22:26 Acetaminophen 325 Mg Tablet PO Q6H PRN Pain, Mild (Pain Scale 1-3) Al Hydroxide/Mg Hydroxide 30 ml 12/14/20 22:26 Magnesium Hydrox/Alum Hydrox 30 Ml Oral.Susp PO Q4H PRN Heartburn/Nausea Albuterol/Ipratropium 3 ml 12/15/20 08:00 12/15/20 11:10 Albuterol/Iprat 2.5/0.5mg 3 Ml Ampul.Neb INHALE Not Given RQID [facility] Aspirin 81 mg 12/15/20 09:00 12/15/20 08:49 Aspirin Enteric Coated 81 Mg Tablet. PO 81 mg DAILY [facility] Administration Atorvastatin Calcium 40 mg 12/15/20 21:00 12/15/20 01:34 Atorvastatin Calcium 40 Mg Tablet PO 40 mg BEDTIME [facility] Administration Docusate Sodium 100 mg 12/14/20 22:26 Docusate Sodium 100 Mg Capsule PO DAILY PRN Constipation Fluticasone Propionate 2 spray 12/15/20 09:00 12/15/20 08:51 Fluticasone Propionate Nasal 16 Gm [place] NOSTRIL-B Not Given DAILY [facility] Insulin Glargine 60 unit 12/15/20 09:00 12/15/20 08:49 Insulin Glargine,Hum.Rec.Anlog 100 Unit/Ml 10 Ml Vial SUBCUT 60 unit DAILY [facility] Administration Insulin Human Lispro 0 unit 12/15/20 07:30 12/15/20 11:50 Insulin Lispro 100 Unit/Ml 3 Ml Vial SUBCUT 10 unit QIDACHS [facility] Administration Protocol Losartan Potassium 25 mg 12/15/20 09:00 12/15/20 08:50 Losartan Potassium 25 Mg Tablet PO 25 mg DAILY [facility] Administration Protocol Mirabegron 25 mg 12/15/20 09:00 12/15/20 08:49 Mirabegron 25 Mg Tab.Er.24h PO 25 mg DAILY [facility] Administration Multivitamins/Vitamin C 1 tab 12/15/20 09:00 12/15/20 08:49 Multivitamin Tablet PO 1 tab DAILY [facility] Administration Pharmacy Consult 1 each 12/14/20 19:18 Consult Rx Perform Med Rec MISCELLANE ONCE PRN Consult order Pregabalin 150 mg 12/15/20 09:00 12/15/20 08:49 Pregabalin 150 Mg Capsule PO 150 mg TID [facility] Administration Sodium Chloride 3 ml 12/15/20 00:00 12/15/20 08:48 0.9 % Sodium Chloride Flush 3 Ml Syringe IVFLUSH 3 ml QSHIFT [facility] Administration Home Medications Medication Instructions Recorded Confirmed Type aspirin 81 mg PO DAILY 12/14/20 12/14/20 History atorvastatin 1 tab PO BEDTIME 12/14/20 12/14/20 History cholecalciferol (vitamin D3) 1 cap PO DAILY 12/14/20 12/14/20 History fluticasone propionate 2 spray INTRANASAL DAILY 12/14/20 12/14/20 History insulin aspart U-100 [Novolog 1 sliding scale dose SUBCUT 12/14/20 History U-100 Insulin aspart] USEASDIRECTD insulin degludec [Tresiba 88 unit SUBCUT DAILY 12/14/20 12/14/20 History FlexTouch U-100] ipratropium-albuterol [Combivent 1 puff INHALATION QID 12/14/20 12/14/20 History Respimat] losartan 1 tab PO DAILY 12/14/20 12/14/20 History metoprolol succinate 1 tab PO DAILY 12/14/20 12/14/20 History mirabegron [Myrbetriq] 1 tab PO DAILY 12/14/20 12/14/20 History multivitamin 1 tab PO DAILY 12/14/20 12/14/20 History pregabalin 1 cap PO TID 12/14/20 12/14/20 History Allergies Allergy/AdvReac Type Severity Reaction Status Date / Time No Known Allergies Allergy Mild N/A Unverified 05/10/20 14:56 Physical Exam Vital signs: Vital Signs Temp 96.8 F 12/15/20 11:57 Pulse 57 12/15/20 11:57 Resp 16 12/15/20 11:57 BP 107/76 12/15/20 11:57 Pulse Ox 96 12/15/20 11:57 Intake & Output 12/14/20 12/15/20 12/15/20 18:59 06:59 18:59 Other: Urine 300 Last Bowel Movement 12/13/20 Weight 86.183 kg 90.7 kg [place] Weight in Grams 11905 Weight 90.7 kg - Constitutional Present: no acute distress - Routine HEENT Exam Head: Present: atraumatic Eye: Present: PERRL ENT: Present: TM's normal bilaterally - Routine Neck Exam Present: supple - Routine Respiratory Exam Present: decreased breath sounds - Routine Cardiovascular Exam Cardiovascular: Present: irregular rhythm - Routine Abdominal Exam Present: nontender - Routine Rectal Exam Patient deferred: visual exam - Routine Extremities Exam Present: nontender Hem/Onc Consult Result - Labs CBC & Chem 7: 12/15/20 05:30 12/15/20 05:30 Labs: Short CBC 12/14/20 12/15/20 Range/Units 16:03 05:30 WBC 2.7 L 2.8 L (4.8-10.8) X10*3/uL Hgb 14.4 13.1 L (14.0-18.0) g/dl Hct 41.5 L 39.4 L (42-52) % Plt Count 44 L 47 L (160-400) X10*3/uL BMP 12/14/20 12/14/20 12/15/20 16:03 22:36 05:30 Sodium 135 137 Potassium 4.0 4.6 Chloride 102 103 Carbon Dioxide 21 L 28 BUN 34 H 32 H Creatinine 1.37 1.27 Calcium 8.4 8.7 8.3 L Liver Function 12/14/20 Range/Units 16:03 Total Bilirubin 2.0 H (0.0-1.0) mg/dL Direct Bilirubin 0.8 H (0.0-0.5) mg/dL AST 121 H (5-37) U/L ALT 89 H (0-40) U/L Alkaline Phosphatase 92 (39-117) U/L Albumin 3.3 L (3.5-5.0) g/dL Urine 12/14/20 Range/Units 17:02 Urine Color YELLOW Urine Appearance CLEAR Urine pH 5.5 (5.0-8.0) Ur Specific [place] >= 1.030 H (1.005-1.025) Urine Protein 1+ H (NEG-TRACE) MG/DL Urine Glucose (UA) 100 H (NEG) MG/DL Assessment and Plan (1) Pancytopenia Start date: 12/15/20 (He may be anticoagulated if needed. Old office values will be obtrained.) Status: Acute
[2020-12-15 13:54] LABS: INTERNATIONAL NORM RATIO 1.1 (0.9-1.1); Prothrombin Time 13.5 SEC (10.8-13.0)
--- NOTE | 2020-12-15 15:33 | PC.NURSE ---
Critical blood glucose of 411 during 1130 check. previously recieved his scheduled 60 units of lantus and 2 units of humalog as ordered per protocol. hospitalist made aware. instructed to give 10 units of humalog sc as per protocol. no additional insulin ordered at this time.
--- NOTE | 2020-12-15 15:47 | MHC.CM.NN ---
PT REPORTS HE LIVES AT HOME WITH HIS AND HE IS INDEPENDENT WITH CARE AND MOBILITY. PT USES [facility] TO AMBULATE AND HAS NO OTHER DME. PT DENIES THE USE OF SERVICES. PT CONFIRMS HIS PCP IS CHANTAL SCOTT. PT STATES HE HAS A HCP COMPLETED AT HOME, COPY REQUESTED. IMM DELIVERED CURRENT DC PLAN IS HOME WITH NO SERVICES PTS TO TRANSPORT
[2020-12-15 17:03] LABS: Glucose, Whole Blood 337 mg/dL (60-115)
[2020-12-15] MEDS: Warfarin Sodium 2.5 MG TABLET PO (17:34)
[2020-12-15 20:33] LABS: Glucose, Whole Blood 173 mg/dL (60-115)
--- NOTE | 2020-12-15 22:26 | CA_ITS ---
Transthoracic Echocardiogram Patient (Last, First, Middle): Parent, Filemon Holloway Gender: Male Date of : 1935 Age: 85 Procedure Date: 12/15/2020 Procedure Type: Transthoracic Echocardiogram Location: [facility] [place] Height: 165.1 cm Weight: 90.27 kg BSA: 1.97 m2 Heart Rate: bpm BP: 107 / 76 mmHg Tank House Operator: BEATRICE White MD: Robert Hsieh MD Senior Designer: Titi Deluca MD Symptoms: A fib Study Quality: Fair ECG Rhythm: Atrial Fibrillation Conclusions: - 1. Low normal LV ejection fraction with LVEF of 50-55% with mild LVH 2. Mildly dilated left atrium 3. Normal cardiac valvular Doppler 4. Normal RV systolic pressure 5. No gross pericardial effusion Findings Left Ventricle Normal left ventricular cavity size. There is mildly increased left ventricular wall thickness. The left ventricular systolic function is low normal. The visually estimated ejection fraction is between 50-55%. Regional wall motion abnormalities can not be excluded due to suboptimal endocardial definition. Diastolic function is indeterminate on the basis of available data. Right Ventricle Normal right ventricular cavity size and systolic function. Atria The left atrium is mildly dilated. Interatrial shunt cannot be excluded. The right atrium is normal in size. Aortic Valve There is mild calcification of the aortic valve. There is mild thickening of the aortic valve. There is no aortic valve stenosis. There is no aortic valve regurgitation. Mitral Valve There is mild anterior and posterior mitral leaflet thickening. There is trace mitral valve regurgitation. There is no mitral valve stenosis. Pulmonic Valve The pulmonic valve is likely normal. There is trace to mild pulmonic valve regurgitation. Tricuspid Valve Likely normal tricuspid valve structure and function. There is mild tricuspid valve regurgitation. The right ventricular systolic pressure is normal. The right ventricular systolic pressure is 18 mmHg. Normal right atrial pressure. There is no evidence of pulmonary hypertension. Great Vessels All visible segments of the aorta are normal in size. The pulmonary artery was not well visualized. Venous The inferior vena cava is normal in size and collapses greater than 50% with inspiration. Pericardium/Pleural There is no evidence of pericardial effusion. Prior Study Comparison No previous study in the last 5 years for comparison Measurements 2D Linear Measurements IVSd: 1.37 0.6-0.9/0.6-1.0 cm LVIDd: 3.77 3.9-5.3/4.2-5.9 cm LVIDd Index: 1.91 2.4-3.2/2.2-3.1 cm/m2 LVIDs: 3.01 2.0-3.6 cm LVPWd: 1.22 0.7-1.1 cm Ao Root: 3.50 2.1-3.5 cm LA Diam: 4.00 2.7-3.8/3.0-4.0 cm LAIDs Index: 2.03 1.5-2.3 cm/m2 LV Mass: 211.82 67-162/88-224 g LV Mass Index: 107.52 43-95/49-115 g/m2 LVOT Diam: 2.00 3.0+(-)1.3 cm 2D Systolic Function EF 4C: 50.70 >55% EF 2C: 50.20 >55% EF BiP: 49.10 >55% Aortic Valve AoV Pk Rogelio: 1.55 AoV Mn Rogelio: 1.09 AoV VTI: 0.25 AoV Pk Grad: 10.00 Aov Mn Grad: 5.00 CHRISTIANO Cont.VTI: 2.16 LVOT LVOT Pk Rogelio: 1.00 LVOT Mn Rogelio: 0.66 LVOT VTI: 0.17 LVOT Pk Grad: 4.00 LVOT Mn Grad: 2.00 LVOT Diam: 2.00 LVOT Area: 3.14 Tricuspid Valve TR Pk Rogelio: 1.95 TR Pk Grad: 15.00 RA Press: 3.00 RVSP: 18.00 Great Vessels Aorta Ao Root-2D: 3.50 2.0-3.7 cm Ao Asc: 3.70 2.1-3.4 cm Ao Arch: 3.10 Updated in Other Vendor System with Status of Final Titi Deluca MD electronically signed on 12/15/2020 1:30:37 PM with status of Final
--- NOTE | 2020-12-16 | ECG_ITS ---
Test Reason : AFIB Blood Pressure : / mmHG Vent. Rate : 075 BPM Atrial Rate : 075 BPM P-R Int : 000 ms QRS Dur : 154 ms QT Int : 464 ms P-R-T Axes : 000 -77 036 degrees QTc Int : 518 ms Atrial fibrillation with frequent Premature ventricular complexes Right bundle branch block Left anterior fascicular block Bifascicular block Septal infarct , age undetermined Abnormal ECG When compared with ECG of 15-JAN-2011 15:13, Current undetermined rhythm precludes rhythm comparison, needs review (RBBB and left anterior fascicular block) is now Present Septal infarct is now Present Referred By: Michael Oconnell Electronically Signed By:CORNELIUS CAPPS MD
[2020-12-16] MEDS: 0.9 % Sodium Chloride Flush 3 ML SYRINGE IVFLUSH ×2 (00:18→10:40)
[2020-12-16 03:08] VITALS: BP 109/59; PULSE 57; RESP 18; TEMP 36.4; O2SAT 96
[2020-12-16 03:56] VITALS: PULSE 38
[2020-12-16 06:53] LABS: Hematocrit 37.4 % (42-52); Hemoglobin 12.4 g/dl (14.0-18.0); Mean Corpuscular HGB Conc 33.2 g/dl (31.0-36.0); Mean Corpuscular Hemoglobin 32.5 pg (27.0-33.0); Mean Corpuscular Volume 98.2 fL (80-98); Mean Platelet Volume 11.4 fL (9.4-12.4); Red Blood Count 3.81 X10*6/uL (4.60-5.80); Red Cell Distribution Width 14.9 % (11.0-16.0); White Blood Count 3.1 X10*3/uL (4.8-10.8)
[2020-12-16 06:55] LABS: INTERNATIONAL NORM RATIO 1.1 (0.9-1.1); Prothrombin Time 13.1 SEC (10.8-13.0)
[2020-12-16 07:05] LABS: Platelet Count 60 X10*3/uL (160-400)
[2020-12-16] MEDS: Albuterol/Iprat 2.5/0.5MG 3 ML AMPUL.NEB INHALE ×2 (07:17→11:11)
[2020-12-16 07:18] VITALS: PULSE 47; O2SAT 95
[2020-12-16 07:56] LABS: Glucose, Whole Blood 66 mg/dL (60-115)
[2020-12-16 08:51] VITALS: BP 141/64; PULSE 54; RESP 20; TEMP 36.3; O2SAT 95
[2020-12-16] MEDS: Aspirin Enteric Coated 81 MG TABLET.DR PO (10:39)
[2020-12-16] MEDS: Losartan Potassium 25 MG TABLET PO (10:39)
[2020-12-16] MEDS: Mirabegron 25 MG TAB.ER.24H PO (10:39)
[2020-12-16] MEDS: Pregabalin 150 MG CAPSULE PO (10:39)
[2020-12-16] MEDS: Multivitamin TABLET 1 TAB PO (10:40)
[2020-12-16 11:11] VITALS: BP 140/65; PULSE 61; PULSE 78; RESP 16; TEMP 36.8; O2SAT 96; O2SAT 97
--- NOTE | 2020-12-16 11:23 | P.PNIM_ITS ---
Subjective Subjective Date of Service: 12/16/20 Interval History: Seen in f/u for bradycardia, near syncope, AFIB. Heart rate in 60s Review of Systems Gen: no fever Resp: no sob, no cough CV: no chest, no ROBERSON, no leg edema GI: No n/v, no abd pain Neuro: No confusion Physical Exam Vital Signs: Vital Signs: Last Vital Signs Temp 98.2 F 12/16/20 11:11 Pulse 61 12/16/20 11:11 Resp 16 12/16/20 11:11 BP 140/65 H 12/16/20 11:11 Pulse Ox 97 12/16/20 11:11 Body Mass Index 33.3 Const: General: cooperative, comfortable, no acute distress, alert and awake Nutritional Appearance: obese Orientation/consciousness: patient oriented x3 Neck: Neck: Yes no JVD Resp: Effort & Inspection: normal respiratory effort and able to speak in complete sentences Cardio: Other: Irregular heart rate Jugular venous distension: no JVD Rate: bradycardic Rhythm: regular rhythm and abnormal rhythm irregularly irregular Heart sounds: S1 normal heart sound present, S2 normal heart sound present and Murmur heart sound present systolic GI: Palpation (GI): Soft to palpation Auscultation: normal bowel sounds Skin: General skin exam: no rashes or lesions noted Neuro: General: patient oriented x3 and no focal motor deficits Cognition (Neuro): normal cognition Extrem: General: Yes normal to inspection, Yes no clubbing, cyanosis or edema and Yes no pedal edema Psych: Appearance: grossly normal Objective Data Current Medications Generic Name Dose Route Start Last Admin Trade Name Freq PRN Reason Stop Dose Admin Acetaminophen 650 mg 12/14/20 22:26 Acetaminophen 325 Mg Tablet PO Q6H PRN Pain, Mild (Pain Scale 1-3) Al Hydroxide/Mg Hydroxide 30 ml 12/14/20 22:26 Magnesium Hydrox/Alum Hydrox 30 Ml Oral.Susp PO Q4H PRN Heartburn/Nausea Albuterol/Ipratropium 3 ml 12/15/20 08:00 12/16/20 11:11 Albuterol/Iprat 2.5/0.5mg 3 Ml Ampul.Neb INHALE 3 ml RQID [facility] Administration Aspirin 81 mg 12/15/20 09:00 12/16/20 10:39 Aspirin Enteric Coated 81 Mg Tablet.Dr PO 81 mg DAILY [facility] Administration Atorvastatin Calcium 40 mg 04/24/21 21:00 12/15/20 22:26 Atorvastatin Calcium 40 Mg Tablet PO 40 mg BEDTIME [facility] Administration Docusate Sodium 100 mg 12/14/20 22:26 Docusate Sodium 100 Mg Capsule PO DAILY PRN Constipation Fluticasone Propionate 2 spray 12/15/20 09:00 12/16/20 10:40 Fluticasone Propionate Nasal 16 Gm [place] NOSTRIL-B Not Given DAILY [facility] Insulin Glargine 60 unit 12/15/20 09:00 12/15/20 08:49 Insulin Glargine,Hum.Rec.Anlog 100 Unit/Ml 10 Ml Vial SUBCUT 60 unit DAILY [facility] Administration Insulin Human Lispro 0 unit 12/15/20 07:30 12/16/20 08:05 Insulin Lispro 100 Unit/Ml 3 Ml Vial SUBCUT Not Given QIDACHS [facility] Protocol Losartan Potassium 25 mg 12/15/20 09:00 12/16/20 10:39 Losartan Potassium 25 Mg Tablet PO 25 mg DAILY [facility] Administration Protocol Mirabegron 25 mg 12/15/20 09:00 12/16/20 10:39 Mirabegron 25 Mg Tab.Er.24h PO 25 mg DAILY [facility] Administration Multivitamins/Vitamin C 1 tab 12/15/20 09:00 12/16/20 10:40 Multivitamin Tablet PO 1 tab DAILY [facility] Administration Pharmacy Consult 1 each 12/14/20 19:18 Consult Rx Perform Med Rec MISCELLANE ONCE PRN Consult order Pregabalin 150 mg 12/15/20 09:00 12/16/20 10:39 Pregabalin 150 Mg Capsule PO 150 mg TID [facility] Administration Sodium Chloride 3 ml 12/15/20 00:00 12/16/20 10:40 0.9 % Sodium Chloride Flush 3 Ml Syringe IVFLUSH 3 ml QSHIFT [facility] Administration Warfarin Sodium 2.5 mg 12/15/20 18:00 12/15/20 17:34 Warfarin Sodium 2.5 Mg Tablet PO 2.5 mg DAILY@1800 [facility] Administration Labs CBC & Chem 7: 12/16/20 05:52 12/15/20 05:30 Assessment and Plan (1) Pancytopenia: Status: Acute Assessment and Plan: 85-year-old male who presents to the hospital with complaints of dizziness found to have bigeminy/AFib with bradycardia on EKG # He presented with a presyncopal episode and noted to to have bradycardia and new AFIB and bradycardia thought to be related to Metoprolol. He has been taken off metoprolol and seem to be doing well with Heart rate in 60s. There has not been any sinus pause to warrant Pace maker at this time. CHADS2 score is high and risk of stroke discussed with him and he accepts anticoagulation with cou madin. Other options such as Eliquis or Xarelto was discussed, however given underlying thrombocytopenia, oncology opioned that he will better off with coumadin should there ever be a need to reverese anticoagulation. He will therefore be discharged with coumadin adjusted for INR 2 to 3. - # pancytopenia--This is chronic and stable, evaluated by Dr. Vallecillo and not contraindication to anticoagulation as stated above. #Leukopenia is also chronic and stable and can be followed up on outpatient ba sis # CAD--Hold ASA with thrombocytopenia and now on coumdin # diabetes--To continue prior regimen of insulin at home # HTN--continue Losartan and Metoprolol is discontinued # diabetic neuropathy - continue pregabalin Discharge home today with Visiting nurse service for monitoring of INR
[2020-12-16 11:47] LABS: Glucose, Whole Blood 255 mg/dL (60-115)
[2020-12-16] MEDS: Insulin Glargine,Hum.rec.anlog 100 UNIT/ML 10 ML VIAL 60 UNIT SUBCUT (11:49)
[2020-12-16] MEDS: Insulin Lispro 100 UNIT/ML 3 ML VIAL SUBCUT (11:49)
[2020-12-16] MEDS: Potassium Chloride Packet 20 MEQ PACKET 40 MEQ PO (11:50)
--- NOTE | 2020-12-16 11:52 | P.F2F_ITS ---
Service Date Service Date: 12/16/20 Encounter Date of encounter: 12/16/20 Reasons for Services Reason for custodial: CV/CP assess and/or care and monitoring of PT/INR Overseeing Care: Jewel Rebolledo Homebound: Leaving the home is medically contraindicated at this time without the asist of a device and/or another person due th the listed conditions above and below. Homebound supporting statement: Homebound due to syncope related to slowly heart and new atrial fibrilation that has warranted medication adjustment at risk for fall and therefore needs the assistance of another person Certification: Based on the above findings, I certify that this patient is co nfined to the home and needs intermittent custodial care, physical therapy and/or speech therapy, or continues to need occupational therapy. The patient is under my care, and I have initiated the establishment of the plan of care. The patient will be followed by a physician who will periodically review the plan of care.
--- NOTE | 2020-12-16 11:54 | PM.DS ---
DS: Providers Provider Date of Service: 12/16/20 Date of admission: 12/14/20 22:11 Primary care physician: Jewel Rebolledo MD Consults: 12/14/20 22:26 Consult to Cardiology Routine Consulting Provider: Peter Viera Reason for consultation: new onset A fib Has provider been notified: No Consult to Hematology / Oncology Routine Consulting Provider: Bryon Keenan Reason for consultation: leukopenia, thrombocytopenia Has provider been notified: No DS: Diagnosis Discharge Diagnosis (1) Pancytopenia: Status: Acute DS: Medications Discharge Medications Home Medications: Home Medications Medication Instructions Recorded Confirmed Combivent Respimat 1 puff INHALATION QID 12/14/20 12/14/20 Myrbetriq 1 tab PO DAILY 12/14/20 12/14/20 Tresiba FlexTouch U-100 88 unit SUBCUT DAILY 12/14/20 12/14/20 atorvastatin 1 tab PO BEDTIME 12/14/20 12/14/20 cholecalciferol (vitamin D3) 1 cap PO DAILY 12/14/20 12/14/20 fluticasone propionate 2 spray INTRANASAL DAILY 12/14/20 12/14/20 insulin aspart U-100 [Novolog 1 sliding scale dose SUBCUT 12/14/20 U-100 Insulin aspart] USEASDIRECTD losartan 1 tab PO DAILY 12/14/20 12/14/20 multivitamin 1 tab PO DAILY 12/14/20 12/14/20 pregabalin 1 cap PO TID 12/14/20 12/14/20 Previous Rx's Medication Instructions Recorded warfarin 4 mg PO DAILY@1800 #60 tab 12/16/20 DS: Summary Hospital Course Hospital Course: 85-year-old male who presents to the hospital with complaints of dizziness found to have bigeminy/AFib with bradycardia on EKG # He presented with a presyncopal episode and noted to to have bradycardia and new AFIB and bradycardia thought to be related to Metoprolol. He has been taken off metoprolol and seem to be doing well with Heart rate in 60s. There has not been any sinus pause to warrant Pace maker at this time. CHADS2 score is high and risk of stroke discussed with him and he accepts anticoagulation with coumadin. Other options such as Eliquis or Xarelto was discussed, however given underlying thrombocytopenia, oncology opioned that he will better off with coumadin should there ever be a need to reverese anticoagulation. He will therefore be discharged with coumadin adjusted for INR 2 to 3. - # pancytopenia--This is chronic and stable, evaluated by Dr. Vallecillo and not contraindication to anticoagulation as stated above. #Leukopenia is also chronic and stable and can be followed up on outpatient basis # CAD--Hold ASA with thrombocytopenia and now on coumdin # diabetes--To continue prior regimen of insulin at home Time Spent with Patient Time attestation: Total time spent providing and/or coordinating discharge services: Discharge coordination time: Greater than 30 minutes Physical Exam Vital Signs: Vital Signs: Last Vital Signs Temp 98.2 F 12/16/20 11:11 Pulse 61 12/16/20 11:11 Resp 16 12/16/20 11:11 BP 140/65 H 12/16/20 11:11 Pulse Ox 97 12/16/20 11:11 Body Mass Index 33.3 see my progress note of today DS: Data Data Completed and Pending Labs on day of discharge: Laboratory Results - last 24 hr 12/15/20 12/15/20 12/15/20 13:32 16:58 20:27 WBC RBC Hgb Hct MCV MCH MCHC RDW Plt Count MPV Absolute Nucleated RBC Nucleated RBC % (auto) PT 13.5 H INR 1.1 POC Glucose 337 H 173 H 12/16/20 12/16/20 12/16/20 05:52 05:52 07:44 WBC 3.1 L RBC 3.81 L Hgb 12.4 L Hct 37.4 L MCV 98.2 H MCH 32.5 MCHC 33.2 RDW 14.9 Plt Count 60 L D MPV 11.4 Absolute Nucleated RBC 0.000 Nucleated RBC % (auto) 0.0 PT 13.1 H INR 1.1 POC Glucose 66 12/16/20 11:33 WBC RBC Hgb Hct MCV MCH MCHC RDW Plt Count MPV Absolute Nucleated RBC Nucleated RBC % (auto) PT INR POC Glucose 255 H Discharge Plan Discharge Anticipated Discharge Date/Time: 12/16/20 11:44 Patient Disposition: Home Health Service Discharge Diagnosis: AFIB, bradycardia and near syncope Referrals: Jewel Rebolledo MD [Primary Care Provider] - 1 Week Discharge Medications: New warfarin 2 mg tablet 4 mg PO DAILY@1800 Qty: 60 RF: 0 Continued atorvastatin 40 mg tablet 1 tab PO BEDTIME RF: 0 losartan 25 mg tablet 1 tab PO DAILY RF: 0 fluticasone propionate 50 mcg/actuation spray,suspension 2 spray intranasal DAILY RF: 0 cholecalciferol (vitamin D3) 125 mcg (5,000 unit) capsule 1 cap PO DAILY RF: 0 pregabalin 150 mg capsule 1 cap PO TID RF: 0 Myrbetriq 25 mg tablet extended release 24 hr 1 tab PO DAILY RF: 0 Tresiba FlexTouch U-100 100 unit/mL (3 mL) insulin pen 88 unit subcut DAILY RF: 0 Combivent Respimat 20-100 mcg/actuation mist 1 puff inhalation QID RF: 0 multivitamin Tablet 1 tab PO DAILY RF: 0 insulin aspart U-100 [Novolog U-100 Insulin aspart] 100 unit/mL Solution 1 sliding scale dose SUBCUT USEASDIRECTD RF: 0 Discontinued metoprolol succinate 25 mg tablet extended release 24 hr 1 tab PO DAILY RF: 0 aspirin 81 mg Tablet,Delayed Release (Dr/Ec) 81 mg PO DAILY RF: 0 Discharge Orders: Discharge Order (Routine); Ordered 12/16/20 Ordered By: Dru Penn Diet: advance to usual diet and diabetic diet Activity on Discharge: As tolerated Stand Alone Forms: Patient Portal Discharge page Care Plan Goals: prevent syncope and stroke Health Concerns: Atrial fib, syncope, bradycardia Plan of Treatment: Do not take Metoprolol anymore, i will slow your heart rate and cause dizziness. Stop taking aspirin. Start Coumadin and have INR check and reported to Dr. Rebolledo Assessment: Atril fibrilation with bradycardia and you are being starting on coumaddin
--- NOTE | 2020-12-16 13:10 | MHC.CM.PN ---
Patient has been medically cleared for dc to home today, with VNA. A referral has been made to [facility], who is aware of today's dc. PCP is Dr. Jewel Rebolledo.Last IMM addressed yesterday.
--- NOTE | 2020-12-16 13:18 | PM.PNCARD ---
Subjective Subjective Date of Service: 12/16/20 Principal diagnosis: Dizziness, atrial fibrillation Interval history: Patient remains in atrial fibrillation. Heart rate however shows no bradycardia. Heart rate in the 60s. Still complains of some dizziness. No near syncopal or lightheaded episode. Walked the hallways without any issues Review of Systems Constitutional: Reports no additional constitutional complaints Reports dizziness Cardiovascular: Reports no additional cardiovascular complaints Respiratory: Reports no additional respiratory complaints Reports system reviewed and no additional complaints, except as documented and Reports dizziness Psychiatric: Reports no additional psychiatric complaints Endocrine: Reports no additional endocrine complaints Physical Exam Vital Signs: Last Vital Signs Temp 98.2 F 12/16/20 11:11 Pulse 61 12/16/20 11:11 Resp 16 12/16/20 11:11 BP 140/65 H 12/16/20 11:11 Pulse Ox 97 12/16/20 11:11 Body Mass Index 33.3 Const General: cooperative, comfortable, no acute distress and alert Orientation/consciousness: patient oriented x3 Neck Neck: Yes trachea midline and Yes no JVD Resp Effort & Inspection: normal respiratory effort Auscultation: clear to auscultation bilaterally Cardio Rhythm: abnormal rhythm irregularly irregular Heart sounds: S1 normal heart sound present and S2 normal heart sound present Peripheral pulses: Peripheral pulses 2+ throughout Neuro General: patient oriented x3 and no focal motor deficits Extrem General: Yes no clubbing, cyanosis or edema Results Labs and Meds Result diagrams: 12/16/20 05:52 12/15/20 05:30 Lab results: Laboratory Results - last 24 hr 12/15/20 12/15/20 12/15/20 13:32 16:58 20:27 WBC RBC Hgb Hct MCV MCH MCHC RDW Plt Count MPV Absolute Nucleated RBC Nucleated RBC % (auto) PT 13.5 H INR 1.1 POC Glucose 337 H 173 H 12/16/20 12/16/20 12/16/20 05:52 05:52 07:44 WBC 3.1 L RBC 3.81 L Hgb 12.4 L Hct 37.4 L MCV 98.2 H MCH 32.5 MCHC 33.2 RDW 14.9 Plt Count 60 L D MPV 11.4 Absolute Nucleated RBC 0.000 Nucleated RBC % (auto) 0.0 PT 13.1 H INR 1.1 POC Glucose 66 12/16/20 11:33 WBC RBC Hgb Hct MCV MCH MCHC RDW Plt Count MPV Absolute Nucleated RBC Nucleated RBC % (auto) PT INR POC Glucose 255 H Progress Note: A&P Assessment and plan (1) Bradycardia: Status: Acute Assessment and Plan: Bradycardia which has not resolved since stopping metoprolol. No overt bradycardia noted overnight. Will follow up with Holter monitor as outpatient. Not sure of this was the cause of his dizziness/near syncopal episode. Will need to monitor as outpatient. No indication for pacing. (2) Atrial fibrillation: Status: Acute Assessment and Plan: New onset atrial fibrillation without any overt signs of congestive heart failure. Currently rate controlled. As recommended by Hematology will consider warfarin as an oral anticoagulation but this was discussed with patient in details. If platelet count improves gradually can switch to direct oral anticoagulant therapy such as Eliquis 5 mg b.i.d.. Discontinue aspirin therapy. No need for rate control therapy. Patient can be discharged home. Will follow up as outpatient. Fall Risk Details Current Medications: Current Medications Generic Name Dose Route Start Last Admin Trade Name Darriusq PRN Reason Stop Dose Admin Acetaminophen 650 mg 12/14/20 22:26 Acetaminophen 325 Mg Tablet PO Q6H PRN Pain, Mild (Pain Scale 1-3) Al Hydroxide/Mg Hydroxide 30 ml 12/14/20 22:26 Magnesium Hydrox/Alum Hydrox 30 Ml Oral.Susp PO Q4H PRN Heartburn/Nausea Albuterol/Ipratropium 3 ml 12/15/20 08:00 12/16/20 11:11 Albuterol/Iprat 2.5/0.5mg 3 Ml Ampul.Neb INHALE 3 ml RQID LESA Administration Aspirin 81 mg 12/15/20 09:00 12/16/20 10:39 Aspirin Enteric Coated 81 Mg Tablet. PO 81 mg DAILY LESA Administration Atorvastatin Calcium 40 mg 12/15/20 21:00 12/15/20 22:26 Atorvastatin Calcium 40 Mg Tablet PO 40 mg BEDTIME LESA Administration Docusate Sodium 100 mg 12/14/20 22:26 Docusate Sodium 100 Mg Capsule PO DAILY PRN Constipation Fluticasone Propionate 2 spray 12/15/20 09:00 12/16/20 10:40 Fluticasone Propionate Nasal 16 Gm [place] NOSTRIL-B Not Given DAILY [facility] Insulin Glargine 60 unit 12/15/20 09:00 12/16/20 11:49 Insulin Glargine,Hum.Rec.Anlog 100 Unit/Ml 10 Ml Vial SUBCUT 60 unit DAILY LESA Administration Insulin Human Lispro 0 unit 12/15/20 07:30 12/16/20 11:49 Insulin Lispro 100 Unit/Ml 3 Ml Vial SUBCUT 6 unit QIDACHS LESA Administration Protocol Losartan Potassium 25 mg 12/15/20 09:00 12/16/20 10:39 Losartan Potassium 25 Mg Tablet PO 25 mg DAILY LESA Administration Protocol Mirabegron 25 mg 12/15/20 09:00 12/16/20 10:39 Mirabegron 25 Mg Tab.Er.24h PO 25 mg DAILY LESA Administration Multivitamins/Vitamin C 1 tab 12/15/20 09:00 12/16/20 10:40 Multivitamin Tablet PO 1 tab DAILY LESA Administration Pharmacy Consult 1 each 12/14/20 19:18 Consult Rx Perform Med Rec MISCELLANE ONCE PRN Consult order Pregabalin 150 mg 12/15/20 09:00 12/16/20 10:39 Pregabalin 150 Mg Capsule PO 150 mg TID LESA Administration Sodium Chloride 3 ml 12/15/20 00:00 12/16/20 10:40 0.9 % Sodium Chloride Flush 3 Ml Syringe IVFLUSH 3 ml QSHIFT LESA Administration Warfarin Sodium 2.5 mg 12/15/20 18:00 12/15/20 17:34 Warfarin Sodium 2.5 Mg Tablet PO 2.5 mg DAILY@1800 LESA Administration Time Spent With Patient Time: Total time spent is greater than 50% in coordination of care (as documented) at patient's floor/unit and/or counseling patient: Time with patient: 25 - 35 minutes
--- NOTE | 2020-12-16 14:18 | MHC.CM.PN ---
CM met with Patient and his to further discuss dc planning and how the VNA will be out tomorrow or Thursday to check his INR, related to his new Coumadin. Patient appeared quite appreciative for the information and he is in agreement with the dc plan.
== END 2020-12-16 15:12 | disposition home health service (06) | DRG 309 ==
LOC: HO.ED 21:29 → HO.EDOVER 22:23 → HO.IMC 22:50
PROVIDERS: Emergency Medicine; Physician Assistant Medical; Admitting Provider Internal Medicine; Emergency Provider Internal Medicine; PCP Internal Medicine; Visit Provider Internal Medicine
DX: I48.91 Unspecified atrial fibrillation (principal); D61.818 Other pancytopenia; I25.2 Old myocardial infarction; E11.42 Type 2 diabetes mellitus with diabetic polyneuropathy; I45.2 Bifascicular block; C61 Malignant neoplasm of prostate; I25.10 Atherosclerotic heart disease of native coronary artery without angina pectoris; Z20.822 Contact with and (suspected) exposure to COVID-19; Z79.4 Long term (current) use of insulin; Z79.52 Long term (current) use of systemic steroids; Z79.01 Long term (current) use of anticoagulants; Z79.899 Other long term (current) drug therapy
CPT/HCPCS: 36415; 71045; 80048; 80076; 81001; 82310; 82947; 83735; 83880; 84443; 84484; 85025; 85027; 85610; 85730; 87635; 93005; 93306; 94640; 99285

== ENCOUNTER 2020-12-23 10:40 | Emergency (ER) | payer MEDICARE, SELFPAY ==
[2020-12-23] VITALS (9 sets, daily range): BP systolic 116–178; BP diastolic 40–74; PULSE 36–71; RESP 12–18; TEMP 35.9–36.9; O2SAT 97–100; BMI 47.2
--- NOTE | ~2020-12-23 | CT_ITS ---
EXAMINATION: IV contrast enhanced CT angiography of the head and neck CLINICAL INFORMATION: Headache. Possible aneurysm. COMPARISON: CT head 12/23/2020. TECHNIQUE: The degree of stenosis determined by NASCET criteria. This CT examination was performed using dose optimization techniques as appropriate, variously including the following: *Automated exposure control *Adjustment of mA and/or kV according to patient size (this includes techniques or standardized protocols for targeted exams where dose is matched to indication/reason for exam; i.e. extremities or head) *Use of iterative reconstruction technique Multiple 3-D thick section MIPS angiographic reformatted images are processed on the technologist workstation under concurrent supervision. Intravenous contrast: Omnipaque 350 70 mL. DLP: 1594 mGy-cm FINDINGS: CT angiography neck: Nonocclusive ostial calcifications are noted in association with the origin of the right subclavian artery. Noncalcific atherosclerotic plaque is present within the visualized transverse aorta. Common origin of the brachiocephalic and left common carotid arteries is noted. Nonocclusive bilateral concentric mixed calcific and noncalcific nonulcerative plaque is present within the carotid bulbs. The left vertebral artery is dominant. Punctate ostial calcifications are associated with the origin of the left vertebral artery. CT angiography head: origin of the right posterior cerebral artery is noted. Nonocclusive segmental atherosclerotic plaques are present within the cavernous portions of the internal carotid arteries. The A1 segment of the right anterior cerebral artery is absent. An anterior communicating artery is noted. No large vessel intracranial occlusions are identified. No intrarenal aneurysms are noted. Delayed IV postcontrast enhanced CT the head: Mild diffuse commensurate prominence of ventricles and sulci is noted. Patchy hypodensities are present within the periventricular white matter and ventral elvis suspicious for mild white matter chronic small vessel ischemic changes. No intracranial hemorrhage, tumors or acute infarcts are identified. Bilateral ocular lens extractions are visualized. No significant opacification of the visualized paranasal sinuses, mastoid air cells and middle ear cavities is noted. The thyroid is normal in appearance. No cervical lymphadenopathy is identified. The visualized lung apices are clear. Multiple 3-D reformatted images confirm findings made upon review of the initial axial image data set. Moderate multilevel facet and endplate hypertrophic degenerative changes of the cervical spine are present. CT/CT angio head neck IMPRESSION: IV contrast and CT the head: 1. No acute abnormalities. 2. Mild white matter chronic small vessel ischemic changes. CT angiography head: 1. No intracranial aneurysms. 2. No large vessel intracranial occlusions. CT angiography neck: 1. Mild nonocclusive, nonulcerative bilateral carotid bulb calcific and noncalcific atherosclerotic plaque.
--- NOTE | ~2020-12-23 | CT_ITS ---
EXAMINATION: CT HEAD WITHOUT CONTRAST CLINICAL INFORMATION: Headache for 3 days. COMPARISON: CT scan of the head dated 02/20/2017. TECHNIQUE: Contiguous axial imaging was performed from the skull base to vertex without intravenous administration of contrast. This CT examination was performed using dose optimization techniques as appropriate, variously including the following: *Automated exposure control *Adjustment of mA and/or kV according to patient size (this includes techniques or standardized protocols for targeted exams where dose is matched to indication/reason for exam; i.e. extremities or head) *Use of iterative reconstruction technique DLP: 767.00 mGy-cm FINDINGS: There is no evidence of acute intracranial hemorrhage or territorial infarction. No abnormal mass effect or midline shift is seen. Mari to white matter differentiation is well preserved. No extra-axial fluid collections are identified. The ventricles and sulci are enlarged, consistent with involutional changes. There is mild periventricular and deep white matter low-attenuation, consistent with ischemic small vessel disease. Mineralization in the basal ganglia again noted. The osseous structures and soft tissues are normal. There is mucosal thickening in the right maxillary sinus with small mucous retention cyst noted. The mastoid air cells and visualized portions of the paranasal sinuses are otherwise well aerated. CT/CT head/brain wo con IMPRESSION: No acute intracranial pathology. Mild involutional changes and findings of ischemic small vessel disease.
--- NOTE | 2020-12-23 12:38 | ECG_ITS ---
Test Reason : BRADYCARDIA Blood Pressure : / mmHG Vent. Rate : 065 BPM Atrial Rate : 065 BPM P-R Int : 000 ms QRS Dur : 154 ms QT Int : 468 ms P-R-T Axes : 002 -76 042 degrees QTc Int : 486 ms Atrial fibrillation Premature ventricular complexes Right bundle branch block Left anterior fascicular block Bifascicular block Abnormal ECG When compared with ECG of 14-DEC-2020 15:43, No significant changes seen Referred By: Mika Ingram Electronically Signed By:IKER SOTO
[2020-12-23] MEDS: Morphine Sulfate 4 MG/ML CARTRIDGE IVPUSH (12:45)
[2020-12-23 12:51] LABS: MANUAL DIFF FLAG NO
[2020-12-23 12:54] LABS: Basophils Percent Auto 0.2 % (0-2); Eosinophils Percent Auto 0.2 % (0-4); Hematocrit 41.2 % (42-52); Hemoglobin 13.7 g/dl (14.0-18.0); Imm Gran Abs Auto 0.05 X10*3/uL (0.00-0.03); Imm Gran Pct Auto 0.9 % (0.0-0.4); Lymphocytes Absolute Auto 0.8 X10*3/uL (1.2-4.9); Lymphocytes Percent Auto 13.3 % (20-40); Mean Corpuscular HGB Conc 33.3 g/dl (31.0-36.0); Mean Corpuscular Volume 99.3 fL (80-98); Mean Platelet Volume 10.3 fL (9.4-12.4); Monocytes Absolute Auto 0.6 X10*3/uL (0.1-1.2); Monocytes Percent Auto 10.2 % (2-11); Neutrophils Absolute Auto 4.4 X10*3/uL (2.0-8.3); Neutrophils Percent Auto 75.2 % (45-73); Platelet Count 126 X10*3/uL (160-400); Red Blood Count 4.15 X10*6/uL (4.60-5.80); Red Cell Distribution Width 14.9 % (11.0-16.0); White Blood Count 5.8 X10*3/uL (4.8-10.8)
--- NOTE | 2020-12-23 12:54 | ED_ITS ---
HPI - Headache General Chief Complaint: Headache <DONTRELL Fontaine - Last Filed: 12/23/20 18:43> Stated Complaint: head pain <DONTRELL Fontaine - Last Filed: 12/23/20 18:43> Time Seen by Provider: 12/23/20 12:37 <DONTRELL Fontaine - Last Filed: 12/23/20 18:43> Source: patient <DONTRELL Fontaine Last Filed: 12/23/20 18:43> Mode of arrival: ambulatory <DONTRELL Fontaine - Last Filed: 12/23/20 18:43> Limitations: no limitations <DONTRELL Fontaine Last Filed: 12/23/20 18:43> History of Present Illness HPI Narrative: Patient presents to ED for headache since Thursday. Patient states throbbing headache ( occipital) and neck pain. Patient denies any nausea, phot ophobia, recent head trauma. Patient recently started on Coumadin due to new onset atrial fibrillation. Patient states no fever or chills. <DONTRELL Fontaine Last Filed: 12/23/20 18:43> MD elicited complaint: headache <DONTRELL Fontaine Last Filed: 12/23/20 18:43> Related Data Home Medications: Home Medications Medication Instructions Recorded Confirmed Combivent Respimat 1 puff INHALATION QID 12/14/20 12/14/20 Myrbetriq 1 tab PO DAILY 12/14/20 12/14/20 Tresiba FlexTouch U-100 88 unit SUBCUT DAILY 12/14/20 12/14/20 atorvastatin 1 tab PO BEDTIME 12/14/20 12/14/20 cholecalciferol (vitamin D3) 1 cap PO DAILY 12/14/20 12/14/20 fluticasone propionate 2 spray INTRANASAL DAILY 12/14/20 12/14/20 insulin aspart U-100 [Novolog 1 sliding scale dose SUBCUT 12/14/20 U-100 Insulin aspart] USEASDIRECTD losartan 1 tab PO DAILY 12/14/20 12/14/20 multivitamin 1 tab PO DAILY 12/14/20 12/14/20 pregabalin 1 cap PO TID 12/14/20 12/14/20 Previous Rx's Medication Instructions Recorded warfarin 4 mg PO DAILY@1800 #60 tab 12/16/20 oxycodone-acetaminophen [Percocet] 1 tab PO TID PRN #9 tab 12/23/20 <DONTRELL Fontaine Last Filed: 12/23/20 18:43> Allergies/Adverse Reactions: Allergies Allergy/AdvReac Type Severity Reaction Status Date / Time No Known Allergies Allergy Mild N/A Unverified 05/10/20 14:56 <DONTRELL Fontaine Last Filed: 12/23/20 18:43> Review of Systems Review of Systems: Yes all other systems are reviewed and are negative <DONTRELL Fontaine Last Filed: 12/23/20 18:43> Constitutional: Constitutional: Reports as per HPI, Reports no additional constitutional complaints and Reports headache(s) <DONTRELL Fontaine Last Filed: 12/23/20 18:43> Eyes: Eyes: Reports as per HPI and Reports no additional eye complaints <DONTRELL Fontaine Last Filed: 12/23/20 18:43> ENT: Reports system reviewed and no additional complaints, except as d ocumented, Reports as per HPI, Reports headache(s) and Reports neck pain <DONTRELL Fontaine Last Filed: 12/23/20 18:43> Cardiovascular: Cardiovascular: Reports as per HPI and Reports no additional c ardiovascular complaints <DONTRELL Fontaine Last Filed: 12/23/20 18:43> Respiratory: Respiratory: Reports as per HPI and Reports no additional respiratory complaints <DONTRELL Fontaine Last Filed: 12/23/20 18:43> Gastrointestinal: Gastrointestinal: Reports as per HPI and Reports no additional gastrointestinal complaints <DONTRELL Fontaine Last Filed: 12/23/20 18:43> Genitourinary: Genitourinary: Reports no additional male genitourinary complaints and Reports as per HPI <DONTRELL Fontaine Last Filed: 12/23/20 18:43> Musculoskeletal: Musculoskeletal: Reports no additional musculoskeletal complaints, Reports as per HPI and Reports neck pain <DONTRELL Fontaine Last Filed: 12/23/20 18:43> Neurologic: Reports system reviewed and no additional complaints, except as documented, Reports as per HPI and Reports headache(s) <DONTRELL Fontaine Last Filed: 12/23/20 18:43> Psychiatric: Psychiatric: Reports no additional psychiatric complaints and Reports as per HPI <DONTRELL Fontaine - Last Filed: 12/23/20 18:43> [facility] Past Medical History Medical History: Medical History (Updated 12/23/20 @ 17:38 by DONTRELL Fontaine) Bifascicular block CAD (coronary artery disease) Diabetes HLD (hyperlipidemia) HTN (hypertension) Myocardial infarct, old Prostate CA <DONTRELL Fontaine - Last Filed: 12/23/20 18:43> Social History Social History: Social History Household Members: Significant Other Housing: House Alcohol intake: never Smoking Status: Never smoker Use of substances other than those prescribed or required for medical reasons: No Advance Directives: No Advance Directives Information Provided: No Current occupational status: retired <DONTRELL Fontaine - Last Filed: 12/23/20 18:43> Physical Exam Vital Signs: Vital Signs: Last Vital Signs Temp 98.5 F 12/23/20 16:32 Pulse 44 L 12/23/20 18:00 Resp 16 12/23/20 18:00 BP 117/50 L 12/23/20 18:00 Pulse Ox 99 12/23/20 18:00 Body Mass Index 47.2 <DONTRELL Fontaine - Last Filed: 12/23/20 18:43> Vital Signs: Last Vital Signs Temp 98.5 F 12/23/20 16:32 Pulse 44 L 12/23/20 18:00 Resp 16 12/23/20 18:00 BP 117/50 L 12/23/20 18:00 Pulse Ox 99 12/23/20 18:00 Body Mass Index 47.2 <Cole Olson MD - Last Filed: 12/23/20 16:06> Const: General: cooperative, healthy appearing and acute distress <DONTRELL Fontaine - Last Filed: 12/23/20 18:43> Orientation/consciousness: patient oriented x3 <DONTRELL Fontaine - Last Filed: 12/23/20 18:43> HENMT: Other: ociipital tenderness on palpation. . <DONTRELL Fontaine - Last Filed: 12/23/20 18:43> Head: Yes normal to inspection, Yes No palpable skull fracture present, Yes normocephalic, No atraumatic, No abrasion, No Acrocyanosis present, No Guzman's sign, No contusion, No cranial bruits, No hematoma, No laceration, No occipital foramen tenderness, No palpable skull fracture, No raccoon eyes, No scalp lesion, No scalp tenderness, No Temporal artery tenderness present and No periorbital ecchymosis <DONTRELL Fontaine Last Filed: 12/23/20 18:43> Eyes: Other: Negative photophobia <DONTRELL Fontaine Last Filed: 12/23/20 18:43> General: appearance normal, both eyes and all related structures <DONTRELL Posada Last Filed: 12/23/20 18:43> Neck: Neck: Yes normal visual inspection, Yes full ROM, Yes no lymphadenopathy, Yes no meningeal signs, Yes trachea midline, Yes supple and Yes tender (Cervical spine tenderness) <DONTRELL Fontaine Last Filed: 12/23/20 18:43> Chest: Chest palpation & inspection: normal inspection of the chest and normal palpation of entire chest wall <DONTRELL Fontaine Last Filed: 12/23/20 18:43> Resp: Effort & Inspection: normal respiratory effort and able to speak in complete sentences <DONTRELL Fontaine Last Filed: 12/23/20 18:43> Auscultation: clear to auscultation bilaterally <DONTRELL Fontaine Last Filed: 12/23/20 18:43> Cardio: Jugular venous distension: no JVD <DONTRELL Fontaine Last Filed: 12/23/20 18:43> Heart sounds: S1 normal heart sound present and S2 normal heart sound present <DONTRELL Fontaine Last Filed: 12/23/20 18:43> GI: Inspection: Yes normal to inspection and No abdominal wall ecchymosis <DONTRELL Fontaine Last Filed: 12/23/20 18:43> Palpation (GI): Soft to palpation, not firm, nontender, no guarding and not rigid <DONTRELL Fontaine Last Filed: 12/23/20 18:43> : General: No CVA tenderness and Yes no CVA tenderness <DONTRELL Fontaine Last Filed: 12/23/20 18:43> Back/Spine/Pelvis: Back: no CVA tenderness, No CVA tenderness and No back tenderness <DONTRELL Fontaine Last Filed: 12/23/20 18:43> Skin: General skin exam: no rashes or lesions noted and elasticity normal <DONTRELL Fontaine Last Filed: 12/23/20 18:43> Neuro: Other: Negative for any neuro deficits <DONTRELL Fontaine Last Filed: 12/23/20 18:43> General: patient oriented x3, no meningeal signs and CN's II-XI intact bilaterally <DONTRELL Fontaine Last Filed: 12/23/20 18:43> Cranial nerves: Yes CN's II-XII intact bilaterally <DONTRELL Fontaine Last Filed: 12/23/20 18:43> Extrem: General: Yes normal to inspection and Yes full ROM <DONTRELL Fontaine Last Filed: 12/23/20 18:43> Psych: Appearance: grossly normal, well kempt and not disheveled <DONTRELL Fontaine Last Filed: 12/23/20 18:43> Course Course Course Narrative: Due to patient being on coumading due to new atrial defibrillation with for couple days of headache will do CT scan immediately and and labs will be ordered. Morphine ordered for pain relief. Negative fluids ordered. Lactic and blood culture ordered. ESR CRP ordered <DONTRELL Fontaine Last Filed: 12/23/20 18:43> I was asked to evaluate the patient, 85-year-old male recently started on Coumadin for atrial fibrillation came in with headache and neck pain started 3 days ago as a mild pain then progressively getting worse, pain is mostly an occipital area radiating down to the neck mostly on the right side, no fever, no chills, no vomiting, no photophobia. 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 Patient feels better after morphine/Dilaudid given in the emergency department, physical exam/history/radiographic studies are consistent with cervical radiculopathy. Meningitis is not favorable diagnoses in the absence of vomiting/photophobia. No fever, no leukocytosis. Patient will be discharged home to hold his Coumadin for 1 days then resume as normal. Will be sent home with pain medication. Will follow-up with PCP as scheduled in 2 days. <Cole Olson MD - Last Filed: 12/23/20 16:06> Reevaluation(s) Reevaluation #1: Patient's head CT came back negative for any bleed. Patient still having headache states is a 10. . Discussed with DrGeovanny, recommend given Dilaudid and do head CT images no aneurysm. EKG negative for NSTEMI. No EKG changes. EKG negative for any new changes. <DONTRELL Fontaine - Last Filed: 12/23/20 18:43> Reevaluation #2: Head/neck CTA negative for any acute emboli in neck or head. ESR negative. No white count. Patient afebrile. Not suspecting meninigitis. Negative elevated of white blood cell count/lacticactic acid. Patinet is afebrile, and is negative for photophobia. patient re-evualauted by Dr. Olson who state symptoms indicated cervical radiculopahty. Patient informed him that neck pain radiating down upper extremities and worse on movement. Will do repeat troponin. <DONTRELL Fontaine - Last Filed: 12/23/20 18:43> Reevaluation #3: Patient's 2nd troponin came back the same. Patient feeling better. Patient will be discharged with oxycodone. Patient informed not to take his Coumadin dose today and restart tomorrow. Patient informed to call his PCP. Cervical radiculopathy. <DONTRELL Fontaine - Last Filed: 12/23/20 18:43> MDM - Headache MDM Narrative Medical decision making narrative: Cervical radicular Passy <DONTRELL Fontaine - Last Filed: 12/23/20 18:43> Lab Data Result diagrams: : 12/23/20 12:45 12/23/20 12:45 <DONTRELL Fontaine Last Filed: 12/23/20 18:43> Labs: Lab Results 12/23/20 12/23/20 12/23/20 Range/Units 12:45 12:45 12:45 WBC 5.8 (4.8-10.8) X10*3/uL RBC 4.15 L (4.60-5.80) X10*6/uL Hgb 13.7 L (14.0-18.0) g/dl Hct 41.2 L (42-52) % MCV 99.3 H (80-98) fL MCH 33.0 (27.0-33.0) pg MCHC 33.3 (31.0-36.0) g/dl RDW 14.9 (11.0-16.0) % Plt Count 126 L D (160-400) X10*3/uL MPV 10.3 (9.4-12.4) fL Immature Gran % (Auto) 0.9 H (0.0-0.4) % Neut % (Auto) 75.2 H (45-73) % Lymph % (Auto) 13.3 L (20-40) % [place] % (Auto) 10.2 (2-11) % Eos % (Auto) 0.2 (0-4) % Baso % (Auto) 0.2 (0-2) % Lymph # (Auto) 0.8 L (1.2-4.9) X10*3/uL [place] # (Auto) 0.6 (0.1-1.2) X10*3/uL Eos # (Auto) 0.0 (0.0-0.4) X10*3/uL Baso # (Auto) 0.0 (0.0-0.2) X10*3/uL Abs Immat Gran (auto) 0.05 H (0.00-0.03) X10*3/uL Absolute Neuts (auto) 4.4 (2.0-8.3) X10*3/uL Absolute Nucleated RBC 0.000 (0.0-0.012) X10*3/uL Nucleated RBC % (auto) 0.0 (0.0-0.2) /100WBC ESR 12 (0-15) MM/HR PT 67.2 H D (10.8-13.0) SEC INR 5.6 H* D (0.9-1.1) APTT 51.2 H D (24.1-38.0) SEC Sodium (135-145) mmol/L Potassium (3.3-5.1) mmol/L Chloride (96-108) mmol/L Carbon Dioxide (22-29) mmol/L Anion Gap (12-20) BUN (9-16) mg/dL Creatinine (0.5-1.4) mg/dL Estim Creat Clear Calc Estimated GFR POC Glucose (60-115) mg/dL Random Glucose (60-115) mg/dL Lactic Acid (0.5-2.0) mmol/L Calcium (8.4-10.2) mg/dL Total Bilirubin (0.0-1.0) mg/dL AST (5-37) U/L ALT (0-40) U/L Alkaline Phosphatase (39-117) U/L Troponin I High Sens (<3.5-35.0) ng/L C-Reactive Protein (< or = 0.50) mg/dL Total Protein (6.5-8.0) g/dL Albumin (3.5-5.0) g/dL 12/23/20 12/23/20 12/23/20 Range/Units 12:45 12:45 12:45 WBC (4.8-10.8) X10*3/uL RBC (4.60-5.80) X10*6/uL Hgb (14.0-18.0) g/dl Hct (42-52) % MCV (80-98) fL MCH (27.0-33.0) pg MCHC (31.0-36.0) g/dl RDW (11.0-16.0) % Plt Count (160-400) X10*3/uL MPV (9.4-12.4) fL Immature Gran % (Auto) (0.0-0.4) % Neut % (Auto) (45-73) % Lymph % (Auto) (20-40) % [place] % (Auto) (2-11) % Eos % (Auto) (0-4) % Baso % (Auto) (0-2) % Lymph # (Auto) (1.2-4.9) X10*3/uL [place] # (Auto) (0.1-1.2) X10*3/uL Eos # (Auto) (0.0-0.4) X10*3/uL Baso # (Auto) (0.0-0.2) X10*3/uL Abs Immat Gran (auto) (0.00-0.03) X10*3/uL Absolute Neuts (auto) (2.0-8.3) X10*3/uL Absolute Nucleated RBC (0.0-0.012) X10*3/uL Nucleated RBC % (auto) (0.0-0.2) /100WBC ESR (0-15) MM/HR PT (10.8-13.0) SEC INR (0.9-1.1) APTT (24.1-38.0) SEC Sodium 138 (135-145) mmol/L Potassium 4.7 (3.3-5.1) mmol/L Chloride 105 (96-108) mmol/L Carbon Dioxide 26 (22-29) mmol/L Anion Gap 12 (12-20) BUN 23 H (9-16) mg/dL Creatinine 1.07 (0.5-1.4) mg/dL Estim Creat Clear Calc 63.1 Estimated GFR > 60 POC Glucose (60-115) mg/dL Random Glucose 351 H* (60-115) mg/dL Lactic Acid 1.3 (0.5-2.0) mmol/L Calcium 8.9 D (8.4-10.2) mg/dL Total Bilirubin 1.2 H (0.0-1.0) mg/dL AST 48 H D (5-37) U/L ALT 66 H (0-40) U/L Alkaline Phosphatase 77 (39-117) U/L Troponin I High Sens 27.3 D (<3.5-35.0) ng/L C-Reactive Protein 2.49 H (< or = 0.50) mg/dL Total Protein 6.1 L (6.5-8.0) g/dL Albumin 3.6 (3.5-5.0) g/dL 12/23/20 12/23/20 Range/Units 16:08 16:40 WBC (4.8-10.8) X10*3/uL RBC (4.60-5.80) X10*6/uL Hgb (14.0-18.0) g/dl Hct (42-52) % MCV (80-98) fL MCH (27.0-33.0) pg MCHC (31.0-36.0) g/dl RDW (11.0-16.0) % Plt Count (160-400) X10*3/uL MPV (9.4-12.4) fL Immature Gran % (Auto) (0.0-0.4) % Neut % (Auto) (45-73) % Lymph % (Auto) (20-40) % [place] % (Auto) (2-11) % Eos % (Auto) (0-4) % Baso % (Auto) (0-2) % Lymph # (Auto) (1.2-4.9) X10*3/uL [place] # (Auto) (0.1-1.2) X10*3/uL Eos # (Auto) (0.0-0.4) X10*3/uL Baso # (Auto) (0.0-0.2) X10*3/uL Abs Immat Gran (auto) (0.00-0.03) X10*3/uL Absolute Neuts (auto) (2.0-8.3) X10*3/uL Absolute Nucleated RBC (0.0-0.012) X10*3/uL Nucleated RBC % (auto) (0.0-0.2) /100WBC ESR (0-15) MM/HR PT (10.8-13.0) SEC INR (0.9-1.1) APTT (24.1-38.0) SEC Sodium (135-145) mmol/L Potassium (3.3-5.1) mmol/L Chloride (96-108) mmol/L Carbon Dioxide (22-29) mmol/L Anion Gap (12-20) BUN (9-16) mg/dL Creatinine (0.5-1.4) mg/dL Estim Creat Clear Calc Estimated GFR POC Glucose 176 H (60-115) mg/dL Random Glucose (60-115) mg/dL Lactic Acid (0.5-2.0) mmol/L Calcium (8.4-10.2) mg/dL Total Bilirubin (0.0-1.0) mg/dL AST (5-37) U/L ALT (0-40) U/L Alkaline Phosphatase (39-117) U/L Troponin I High Sens 27.9 (<3.5-35.0) ng/L C-Reactive Protein (< or = 0.50) mg/dL Total Protein (6.5-8.0) g/dL Albumin (3.5-5.0) g/dL <DONTRELL Fontaine - Last Filed: 12/23/20 18:43> Lab Results 12/23/20 12/23/20 12/23/20 Range/Units 12:45 12:45 12:45 WBC 5.8 (4.8-10.8) X10*3/uL RBC 4.15 L (4.60-5.80) X10*6/uL Hgb 13.7 L (14.0-18.0) g/dl Hct 41.2 L (42-52) % MCV 99.3 H (80-98) fL MCH 33.0 (27.0-33.0) pg MCHC 33.3 (31.0-36.0) g/dl RDW 14.9 (11.0-16.0) % Plt Count 126 L D (160-400) X10*3/uL MPV 10.3 (9.4-12.4) fL Immature Gran % (Auto) 0.9 H (0.0-0.4) % Neut % (Auto) 75.2 H (45-73) % Lymph % (Auto) 13.3 L (20-40) % [place] % (Auto) 10.2 (2-11) % Eos % (Auto) 0.2 (0-4) % Baso % (Auto) 0.2 (0-2) % Lymph # (Auto) 0.8 L (1.2-4.9) X10*3/uL [place] # (Auto) 0.6 (0.1-1.2) X10*3/uL Eos # (Auto) 0.0 (0.0-0.4) X10*3/uL Baso # (Auto) 0.0 (0.0-0.2) X10*3/uL Abs Immat Gran (auto) 0.05 H (0.00-0.03) X10*3/uL Absolute Neuts (auto) 4.4 (2.0-8.3) X10*3/uL Absolute Nucleated RBC 0.000 (0.0-0.012) X10*3/uL Nucleated RBC % (auto) 0.0 (0.0-0.2) /100WBC ESR 12 (0-15) MM/HR PT 67.2 H D (10.8-13.0) SEC INR 5.6 H* D (0.9-1.1) APTT 51.2 H D (24.1-38.0) SEC Sodium (135-145) mmol/L Potassium (3.3-5.1) mmol/L Chloride (96-108) mmol/L Carbon Dioxide (22-29) mmol/L Anion Gap (12-20) BUN (9-16) mg/dL Creatinine (0.5-1.4) mg/dL Estim Creat Clear Calc Estimated GFR POC Glucose (60-115) mg/dL Random Glucose (60-115) mg/dL Lactic Acid (0.5-2.0) mmol/L Calcium (8.4-10.2) mg/dL Total Bilirubin (0.0-1.0) mg/dL AST (5-37) U/L ALT (0-40) U/L Alkaline Phosphatase (39-117) U/L Troponin I High Sens (<3.5-35.0) ng/L C-Reactive Protein (< or = 0.50) mg/dL Total Protein (6.5-8.0) g/dL Albumin (3.5-5.0) g/dL 12/23/20 12/23/20 12/23/20 Range/Units 12:45 12:45 12:45 WBC (4.8-10.8) X10*3/uL RBC (4.60-5.80) X10*6/uL Hgb (14.0-18.0) g/dl Hct (42-52) % MCV (80-98) fL MCH (27.0-33.0) pg MCHC (31.0-36.0) g/dl RDW (11.0-16.0) % Plt Count (160-400) X10*3/uL MPV (9.4-12.4) fL Immature Gran % (Auto) (0.0-0.4) % Neut % (Auto) (45-73) % Lymph % (Auto) (20-40) % [place] % (Auto) (2-11) % Eos % (Auto) (0-4) % Baso % (Auto) (0-2) % Lymph # (Auto) (1.2-4.9) X10*3/uL [place] # (Auto) (0.1-1.2) X10*3/uL Eos # (Auto) (0.0-0.4) X10*3/uL Baso # (Auto) (0.0-0.2) X10*3/uL Abs Immat Gran (auto) (0.00-0.03) X10*3/uL Absolute Neuts (auto) (2.0-8.3) X10*3/uL Absolute Nucleated RBC (0.0-0.012) X10*3/uL Nucleated RBC % (auto) (0.0-0.2) /100WBC ESR (0-15) MM/HR PT (10.8-13.0) SEC INR (0.9-1.1) APTT (24.1-38.0) SEC Sodium 138 (135-145) mmol/L Potassium 4.7 (3.3-5.1) mmol/L Chloride 105 (96-108) mmol/L Carbon Dioxide 26 (22-29) mmol/L Anion Gap 12 (12-20) BUN 23 H (9-16) mg/dL Creatinine 1.07 (0.5-1.4) mg/dL Estim Creat Clear Calc 63.1 Estimated GFR > 60 POC Glucose (60-115) mg/dL Random Glucose 351 H* (60-115) mg/dL Lactic Acid 1.3 (0.5-2.0) mmol/L Calcium 8.9 D (8.4-10.2) mg/dL Total Bilirubin 1.2 H (0.0-1.0) mg/dL AST 48 H D (5-37) U/L ALT 66 H (0-40) U/L Alkaline Phosphatase 77 (39-117) U/L Troponin I High Sens 27.3 D (<3.5-35.0) ng/L C-Reactive Protein 2.49 H (< or = 0.50) mg/dL Total Protein 6.1 L (6.5-8.0) g/dL Albumin 3.6 (3.5-5.0) g/dL 12/23/20 12/23/20 Range/Units 16:08 16:40 WBC (4.8-10.8) X10*3/uL RBC (4.60-5.80) X10*6/uL Hgb (14.0-18.0) g/dl Hct (42-52) % MCV (80-98) fL MCH (27.0-33.0) pg MCHC (31.0-36.0) g/dl RDW (11.0-16.0) % Plt Count (160-400) X10*3/uL MPV (9.4-12.4) fL Immature Gran % (Auto) (0.0-0.4) % Neut % (Auto) (45-73) % Lymph % (Auto) (20-40) % [place] % (Auto) (2-11) % Eos % (Auto) (0-4) % Baso % (Auto) (0-2) % Lymph # (Auto) (1.2-4.9) X10*3/uL [place] # (Auto) (0.1-1.2) X10*3/uL Eos # (Auto) (0.0-0.4) X10*3/uL Baso # (Auto) (0.0-0.2) X10*3/uL Abs Immat Gran (auto) (0.00-0.03) X10*3/uL Absolute Neuts (auto) (2.0-8.3) X10*3/uL Absolute Nucleated RBC (0.0-0.012) X10*3/uL Nucleated RBC % (auto) (0.0-0.2) /100WBC ESR (0-15) MM/HR PT (10.8-13.0) SEC INR (0.9-1.1) APTT (24.1-38.0) SEC Sodium (135-145) mmol/L Potassium (3.3-5.1) mmol/L Chloride (96-108) mmol/L Carbon Dioxide (22-29) mmol/L Anion Gap (12-20) BUN (9-16) mg/dL Creatinine (0.5-1.4) mg/dL Estim Creat Clear Calc Estimated GFR POC Glucose 176 H (60-115) mg/dL Random Glucose (60-115) mg/dL Lactic Acid (0.5-2.0) mmol/L Calcium (8.4-10.2) mg/dL Total Bilirubin (0.0-1.0) mg/dL AST (5-37) U/L ALT (0-40) U/L Alkaline Phosphatase (39-117) U/L Troponin I High Sens 27.9 (<3.5-35.0) ng/L C-Reactive Protein (< or = 0.50) mg/dL Total Protein (6.5-8.0) g/dL Albumin (3.5-5.0) g/dL <Cole Olson MD - Last Filed: 12/23/20 16:06> ECG Data Interpretation: Atrial fibrillation with frequent premature ventricular complexes. Bif ascicular block. Negative STEMI. Ventricular rate 65. Care is 154. QTC 486. <DONTRELL Fontaine - Last Filed: 12/23/20 18:43> Discharge Plan Discharge Clinical Impression: Cervical radiculopathy <DONTRELL Fontaine - Last Filed: 12/23/20 18:43> Patient Disposition: Home, Self-Care <DONTRELL Fontaine - Last Filed: 12/23/20 18:43> Instructions: Acute Headache (ED), Cervical Radiculopathy (ED) <DONTRELL Fontaine - Last Filed: 12/23/20 18:43> Additional Instructions: Return to the ED immediately for worsening neck pain, headache, dizziness, chest pain, shortness of breath, slurred speech, loss of vision, paralysis of extremities, fever, chills, neck stiffness, or any other concerning symptoms. Do not take your Coumadin dose for today. Call your PCP tomorrow. <DONTRELL Fontaine - Last Filed: 12/23/20 18:43> Prescriptions: New oxycodone-acetaminophen [Percocet] 5-325 mg tablet 1 tab PO TID PRN (Reason: pain) Qty: 9 RF: 0 No Action atorvastatin 40 mg tablet 1 tab PO BEDTIME RF: 0 losartan 25 mg tablet 1 tab PO DAILY RF: 0 fluticasone propionate 50 mcg/actuation spray,suspension 2 spray intranasal DAILY RF: 0 cholecalciferol (vitamin D3) 125 mcg (5,000 unit) capsule 1 cap PO DAILY RF: 0 pregabalin 150 mg capsule 1 cap PO TID RF: 0 Myrbetriq 25 mg tablet extended release 24 hr 1 tab PO DAILY RF: 0 Tresiba FlexTouch U-100 100 unit/mL (3 mL) insulin pen 88 unit subcut DAILY RF: 0 Combivent Respimat 20-100 mcg/actuation mist 1 puff inhalation QID RF: 0 multivitamin Tablet 1 tab PO DAILY RF: 0 insulin aspart U-100 [Novolog U-100 Insulin aspart] 100 unit/mL Solution 1 sliding scale dose SUBCUT USEASDIRECTD RF: 0 warfarin 2 mg tablet 4 mg PO DAILY@1800 Qty: 60 RF: 0 <DONTRELL Fontaine - Last Filed: 12/23/20 18:43> Referrals: Jewel Rebolledo MD [Primary Care Provider] - 2 days (Came to the ED for headache and neck pain. Head CT negative for bleed. Head CT negative for aneurysm. CT of neck shows cervical radiculopathy. INR 5.6. Patient informed not to take his Coumadin dose for today. EKG troponin & negative for heart attack.) <DONTRELL Fontaine - Last Filed: 12/23/20 18:43> Interventions: ED Discharge Assessment Last Done: 12/23/20 18:23 <DONTRELL Fontaine - Last Filed: 12/23/20 18:43> Discharge Date/Time: 12/23/20 18:25 <DONTRELL Fontaine - Last Filed: 12/23/20 18:43> Print Language: [place] <DONTRELL Fontaine - Last Filed: 12/23/20 18:43>
[2020-12-23 13:05] LABS: Prothrombin Time 67.2 SEC (10.8-13.0)
[2020-12-23 13:08] LABS: Lactic Acid 1.3 mmol/L (0.5-2.0)
[2020-12-23 13:12] LABS: INTERNATIONAL NORM RATIO 5.6 (0.9-1.1)
[2020-12-23 13:13] LABS: Partial Thromboplastin Time 51.2 SEC (24.1-38.0)
[2020-12-23 13:18] LABS: Troponin-I High Sensitivity 27.3 ng/L (<3.5-35.0)
[2020-12-23 13:32] LABS: Alanine Aminotransferase 66 U/L (0-40); Albumin Level 3.6 g/dL (3.5-5.0); Alkaline Phosphatase 77 U/L (39-117); Anion Gap 12 (12-20); Aspartate Amino Transferase 48 U/L (5-37); Bilirubin Total 1.2 mg/dL (0.0-1.0); Blood Urea Nitrogen 23 mg/dL (9-16); C Reactive Protein 2.49 mg/dL (< or = 0.50); Calcium 8.9 mg/dL (8.4-10.2); Carbon Dioxide 26 mmol/L (22-29); Chloride 105 mmol/L (96-108); Creatinine Clr Calc Pharmacy 63.1; Estimated Glomerular Filt Rate > 60; Glucose Random 351 mg/dL (60-115); Potassium 4.7 mmol/L (3.3-5.1); Sodium 138 mmol/L (135-145); Total Protein 6.1 g/dL (6.5-8.0)
[2020-12-23] MEDS: Acetaminophen 325 MG TABLET 650 MG PO (14:20)
[2020-12-23] MEDS: HYDROmorphone HCl 1 MG/ML SYRINGE IVPUSH (14:21)
[2020-12-23] MEDS: 0.9 % Sodium Chloride 1,000 ML 999 ML IV ×2 (14:25→14:26)
[2020-12-23 14:26] LABS: Erythrocyte Sedimentation Rate 12 MM/HR (0-15)
[2020-12-23] MEDS: iohexoL 350 MG/ML 100 ML INFUS..BTL IV (14:45)
[2020-12-23 16:43] LABS: Glucose, Whole Blood 176 mg/dL (60-115)
[2020-12-23 17:04] LABS: Troponin-I High Sensitivity 27.9 ng/L (<3.5-35.0)
== END 2020-12-23 18:25 | disposition home or self-care (01) ==
PROVIDERS: Physician Assistant; Emergency Provider Emergency Medicine; PCP Internal Medicine
DX: R51.9 Headache, unspecified (principal); M54.12 Radiculopathy, cervical region; I48.91 Unspecified atrial fibrillation; Z79.01 Long term (current) use of anticoagulants; E11.9 Type 2 diabetes mellitus without complications; Z79.4 Long term (current) use of insulin; E78.5 Hyperlipidemia, unspecified; Z79.02 Long term (current) use of antithrombotics/antiplatelets; I25.2 Old myocardial infarction; Z85.46 Personal history of malignant neoplasm of prostate
CPT/HCPCS: 36415; 70450; 70496; 70498; 80053; 82947; 83605; 84484; 85025; 85610; 85652; 85730; 86140; 87040; 93005; 96361; 96374; 96375; 99284; 99285; J1170; J2270; Q9967

== ENCOUNTER → 2020-12-27 09:23 | Outpatient (REF) | payer MEDICARE, SELFPAY ==
--- NOTE | 2020-12-27 11:30 | ECG_ITS ---
Hook-up date: 2020-12-27 09:39:00 Duration: 29:40:00 Test Indications: UNSPEC. AFIB Medications: 57358 QRS complexes 29726 Ventricular ectopics which represent 25 % of total QRS comp. * Supraventricular ectopics which represent % of total QRS comp. * Paced QRS complexs which represent % of total QRS comp. VENTRICULAR ECTOPY 78147 Isolated 32331 Bigeminal Cycles 477 Couplets 52 Runs 161 Beats in Runs 5 Beats LONGEST at 103 BPM at 16:27:09 2020-12-27 3 Beats FASTEST at 148 BPM at 21:57:31 2020-12-27 SUPRAVENTRICULAR ECTOPY * Isolated * Couplets * Runs * Beats in Runs * Beats LONGEST at * BPM at :: -- * Beats FASTEST at * BPM at :: -- HEART RATES 47 MIN at 22:41:41 2020-12-27 73 AVG 92 MAX at 08:18:20 2020-12-28 LONGEST RR 1.6480 secs at 22:36:23 2020-12-27 S-T LEVELS Channel 1 - 128 mm at 09:39:00 2020-12-27 - 128 mm at 09:39:00 2020-12-27 Channel 2 - 128 mm at 09:39:00 2020-12-27 - 128 mm at 09:39:00 2020-12-27 Channel 3 - 128 mm at 02:85:81 -- - 128 mm at 02:85:81 Basic rhythm Atrial fibrillation No long pause or profound bradycardia Good rate contrial in AF Frequent Premature ventricular complexes , 25% of total beats No diary submitted Referred By: Titi Deluca Overread By: TITI DELUCA MD
== END ==
LOC: HO.CARD 09:23
PROVIDERS: PCP Internal Medicine; Referring Provider Internal Medicine; Visit Provider Internal Medicine Cardiovascular Disease
DX: Z13.89 Encounter for screening for other disorder (principal)
CPT/HCPCS: 93226

== ENCOUNTER 2020-12-28 12:08 | Outpatient (REF) | payer MEDICARE, SELFPAY ==
[2020-12-28 13:41] LABS: Prothrombin Time 64.9 SEC (10.8-13.0)
[2020-12-28 13:52] LABS: INTERNATIONAL NORM RATIO 5.4 (0.9-1.1)
== END 2020-12-28 12:09 | disposition home or self-care (01) ==
LOC: HO.LAB 12:08
PROVIDERS: PCP Internal Medicine; Visit Provider Internal Medicine
DX: Z13.89 Encounter for screening for other disorder (principal)
CPT/HCPCS: 36415; 85610

== ENCOUNTER 2020-12-28 19:30 | Inpatient (IN) | payer MEDICARE, SELFPAY ==
--- NOTE | ~2020-12-28 | XR_ITS ---
EXAMINATION: XR CHEST CLINICAL INFORMATION: SOB. COMPARISON: Chest 12/14/2020 TECHNIQUE: Frontal view of the chest was obtained. FINDINGS: No significant abnormality is noted involving the heart, lungs, mediastinum, bony thorax or soft tissues. XR/XR chest 1V IMPRESSION: Unremarkable chest examination. No change from 12/14/2020.
--- NOTE | ~2020-12-28 | CT_ITS ---
EXAMINATION: CT ANGIOGRAM OF THE CHEST WITH AND WITHOUT CONTRAST (CT PULMONARY ANGIOGRAM FOR PE) CLINICAL INFORMATION: Hypoxia, shortness of breath COMPARISON: 07/30/2020, 03/18/2019, 01/18/2019 TECHNIQUE: Prior to contrast administration, noncontrast localization images were obtained. Subsequently, multidetector volumetric imaging was performed from the thoracic inlet to below the diaphragms following the administration of 71 mL Omnipaque 350 intravenous contrast. No contrast reaction reported Sagittal, coronal, and MIP oblique sagittal reformatted images were obtained on the CT workstation, uploaded to PACS, and reviewed. This CT examination was performed using dose optimization techniques as appropriate, variously including the following: *Automated exposure control *Adjustment of mA and/or kV according to patient size (this includes techniques or standardized protocols for targeted exams where dose is matched to indication/reason for exam; i.e. extremities or head) *Use of iterative reconstruction technique Total exam dose-length product 494 mGy-cm FINDINGS: QUALITY OF STUDY/CONTRAST BOLUS: Satisfactory. PULMONARY ARTERIES: No central or segmental pulmonary emboli. THORACIC AORTA: No aneurysm or dissection. LUNG: Moderate dependent changes. No acute or suspicious osseous abnormality. The trachea is midline and central airways are patent. PLEURA: No pleural effusion or pneumothorax. MEDIASTINUM: Heart size is mildly enlarged. Trace pericardial fluid. Coronary artery calcifications. No mediastinal or hilar adenopathy. Similar-appearing 1.8 x 1.1 cm oval lesion right lateral of the esophagus at the level of the aortic arch. No evidence of septal bowing or right heart strain. CHEST WALL/AXILLA: No axillary or internal mammary lymphadenopathy. OSSEOUS STRUCTURES: No acute or suspicious osseous abnormality. Old left lateral sixth rib fracture. UPPER ABDOMEN: Of the partially imaged upper abdomen, splenomegaly is seen, new since the prior study. There is reflux of contrast into the inferior vena cava. CT/CT angio chest PE protocol IMPRESSION: 1. No evidence of acute pulmonary embolism. 2. Reflux of contrast into the IVC suggesting possible elevated right heart pressure. 3. No splenomegaly, partially imaged. 4. Stable oval lesion adjacent to the esophagus, remaining indeterminate but not significantly changed since 2019. 5. Coronary artery calcifications. VTE: negative
--- NOTE | ~2020-12-28 | FL_ITS ---
EXAMINATION: Intraoperative fluoroscopy CLINICAL INFORMATION: Pacemaker insertion COMPARISON: Chest x-ray 12/30/2020 TECHNIQUE: Intraoperative fluoroscopy was provided for use by Dr. Rivas. A total of 1 image was saved to PACS. A radiologist was not present during imaging. Today's dictation is only for administrative purposes to document intraoperative fluoroscopic usage. TOTAL FLUOROSCOPIC TIME: 12 minutes and 4 seconds FL/FL guidance in OR FINDINGS~\^^ Intraoperative fluoroscopy provided for use by Dr. Rivas. Please see operative note for detailed findings.
--- NOTE | ~2020-12-28 | XR_ITS ---
EXAMINATION: XR CHEST CLINICAL INFORMATION: Pacemaker placement COMPARISON: Previous chest x-ray most recent from yesterday TECHNIQUE: Frontal view of the chest was obtained. FINDINGS: The cardiac and mediastinal contours are stable. There is a left subclavian dual chamber pacemaker with leads projecting over the right atrium and right ventricle. The lungs are clear. There is no pleural effusion or pneumothorax. XR/XR chest 1V IMPRESSION: Left subclavian dual chamber pacemaker with leads projecting over the right atrium and right ventricle.
--- NOTE | ~2020-12-28 | XR_ITS ---
EXAMINATION: XR CHEST CLINICAL INFORMATION: History pacemaker COMPARISON: Chest 12/28/2020 TECHNIQUE: Frontal view of the chest was obtained. FINDINGS: The lungs are somewhat expanded and clear. The heart size is enlarged with vascularity is normal. There is a right central venous catheter with its tip at the atriocaval junction. No gross bony abnormality seen. XR/XR chest 1V IMPRESSION: Mild cardiomegaly otherwise unremarkable chest exam. There is right central venous catheter tip at the atriocaval junction.
--- NOTE | ~2020-12-28 | XR_ITS ---
EXAMINATION: XR CHEST CLINICAL INFORMATION: Post pacer placement COMPARISON: Chest x-ray 12/30/2020 TECHNIQUE: Frontal portable view of the chest was obtained. 5:22 PM FINDINGS: Pacemaker lead in right atrium and right ventricle. There is no pneumothorax. Cardiac and mediastinal contours are normal. No pulmonary vascular congestion. No pleural effusion. 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 Right humeral head impacting inferior surface of the acromion. Multilevel degenerative spondylosis of the dorsal spine. XR/XR chest 1V IMPRESSION: Status post placement of pacemaker with lead in right atrium and right ventricle. No pneumothorax. Lungs are normally aerated.
--- NOTE | ~2020-12-28 | CT_ITS ---
EXAMINATION: CT HEAD WITHOUT CONTRAST CLINICAL INFORMATION: Intermittent dysphagia. Now asymptomatic. COMPARISON: CT brain 12/23/2020 TECHNIQUE: Contiguous axial imaging was performed from the skull base to vertex without intravenous administration of contrast. This CT examination was performed using dose optimization techniques as appropriate, variously including the following: *Automated exposure control *Adjustment of mA and/or kV according to patient size (this includes techniques or standardized protocols for targeted exams where dose is matched to indication/reason for exam; i.e. extremities or head) *Use of iterative reconstruction technique DLP: 1291 mGy-cm FINDINGS: There is no evidence of acute intracranial hemorrhage or territorial infarction. No abnormal mass effect or midline shift is seen. Mari to white matter differentiation is well preserved. No extra-axial fluid collections are identified. Both ventricles are symmetrical but slightly enlarged. No abnormal mari matter degeneration seen. The osseous structures and soft tissues are normal. There is a small polyp or retention cyst floor of right maxillary sinus. Rest of the paranasal sinuses and mastoid air cells are well-aerated. CT/CT head/brain wo con IMPRESSION: No acute intracranial process seen.
--- NOTE | ~2020-12-28 | XR_ITS ---
EXAMINATION: XR CHEST CLINICAL INFORMATION: Check placement of 10. Pacemaker COMPARISON: None TECHNIQUE: Frontal view of the chest was obtained. FINDINGS: The temporal pacemaker tip lies in the right atrium. The lungs are expanded and clear. The heart size and pulmonary vascularity is normal. No gross bony abnormality seen. XR/XR chest 1V IMPRESSION: The temporary pacemaker tip lies in the right atrium. The lungs are clear.
--- NOTE | ~2020-12-28 | XR_ITS ---
EXAMINATION: XR SHOULDER, LEFT CLINICAL INFORMATION: Pain COMPARISON: Previous left shoulder x-ray November 2018 TECHNIQUE: Two views of the left shoulder. FINDINGS: No fracture or dislocation is seen. There is arthritis at the glenohumeral joint. The acromioclavicular joint is normal. Soft tissues are normal. There is a left subclavian dual chamber pacemaker. 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
[2020-12-28 19:42] VITALS: BP 131/62; PULSE 78; RESP 22; TEMP 39.3; O2SAT 94; BMI 32.4
[2020-12-28 20:08] LABS: Glucose Urine UA NEG (NEG); Leukocyte Esterase Urine NEG (NEG); Nitrite Urine NEG (NEG); PH 5.5 (5.0-8.0); Specific Gravity - Urine 1.025 (1.005-1.025); Urine Blood 2+ (NEG); Urine Ketones NEG (NEG); Urine Protein TRACE MG/DL (NEG-TRACE)
[2020-12-28 20:10] LABS: Appearance Urine CLEAR; Color Urine DARK YELLOW
[2020-12-28 20:22] LABS: Bacteria Urine 1+ /LPF; RBC Urine 0-2 /HPF (0); WBC Urine 0 /HPF (0-4)
--- NOTE | 2020-12-28 20:23 | ECG_ITS ---
Test Reason : WEAKNESS Blood Pressure : / mmHG Vent. Rate : 083 BPM Atrial Rate : 083 BPM P-R Int : 206 ms QRS Dur : 144 ms QT Int : 388 ms P-R-T Axes : 024 -74 -05 degrees QTc Int : 455 ms Atrial fibrillation Right bundle branch block Left anterior fascicular block Bifascicular block Abnormal ECG When compared with ECG of 23-DEC-2020 12:29, Premature ventricular complexes not seen Referred By: Fabiola Benavidez Electronically Signed By:IKER SOTO
--- NOTE | 2020-12-28 20:24 | ED_ITS ---
HPI - General Adult General Chief complaint: Weakness Stated complaint: sob Time Seen by Provider: 12/28/20 19:54 Source: patient Mode of arrival: EMS Limitations: no limitations History of Present Illness HPI narrative: Patient comes to emergency room complaining of weakness. Patient states that for the last 2 days, he has been unable to stand up. Patient states that he is feels very weak. Patient denies shortness of breath. However, patient's family called EMS due to shortness of breath. Per EMS, oxygen s aturation was 90% on room air. Patient denies shortness of breath, no chest pain, no abdominal pain. Patient has noticed that his legs have gradually become more swollen for the last 3 days. Was discharged on 12/16/2020, patient was diagnosed with new onset atrial fibrillation, discharged on warfarin. Related Data Home Medications Medication Instructions Recorded Confirmed Combivent Respimat 1 puff INHALATION QID 12/14/20 12/14/20 Myrbetriq 1 tab PO DAILY 12/14/20 12/14/20 Tresiba FlexTouch U-100 88 unit SUBCUT DAILY 12/14/20 12/14/20 atorvastatin 1 tab PO BEDTIME 12/14/20 12/14/20 cholecalciferol (vitamin D3) 1 cap PO DAILY 12/14/20 12/14/20 fluticasone propionate 2 spray INTRANASAL DAILY 12/14/20 12/14/20 insulin aspart U-100 [Novolog 1 sliding scale dose SUBCUT 12/14/20 U-100 Insulin aspart] USEASDIRECTD losartan 1 tab PO DAILY 12/14/20 12/14/20 multivitamin 1 tab PO DAILY 12/14/20 12/14/20 pregabalin 1 cap PO TID 12/14/20 12/14/20 Previous Rx's Medication Instructions Recorded warfarin 4 mg PO DAILY@1800 #60 tab 12/16/20 oxycodone-acetaminophen [Percocet] 1 tab PO TID PRN #9 tab 12/23/20 Allergies Allergy/AdvReac Type Severity Reaction Status Date / Time No Known Allergies Allergy Mild N/A Verified 12/28/20 19:51 Review of Systems Review of Systems: Constitutional : No Weight loss, No Fever, No Chills, No Night Sweats, complaining of fatigue, worse in lower extremities ENT/Mouth : No Hearing loss, No Ear Pain, No Nasal Congestion, No Sinus Pain, No Hoarseness, No sore throat, No Rhinorrhea, No Swallowing Difficulty Eyes: No Eye Pain, No Swelling, No Redness, No Foreign Body, No Discharge, No Vision Changes Cardiovascular : No Chest Pain, no dyspnea, no palpitations Respiratory : No Cough, No Sputum, No Wheezing, No Smoke Exposure, per family, patient complained of shortness of breath, patient denies shortness of breath Gastrointestinal : No Nausea, No Vomiting, No Diarrhea, No Constipation, No abdominal Pain, No Hematochezia, No Melena Genitourinary : no irregular bleeding, No Dysuria, No Urinary Frequency, No Hematuria, No Urinary Incontinence, No Urgency, No Flank Pain, No Urinary Flow Changes, No Hesitancy Musculoskeletal : No joint pain, No Myalgias, No Joint Swelling, bilateral lower extremity swelling Skin : No Skin Lesions, No rash Neuro : No Weakness, No Numbness, No Paresthesias, No Loss of Consciousness, No Dizziness, No Headache Psych : No Anxiety/Panic, No Depression, No SI/HI/AH/VH, No Social Issues, Heme/Lymph: No Bruising, No Bleeding,No Lymphadenopathy Endocrine : No Polyuria, No Polydipsia, No Temperature Intolerance [facility] Past Medical History Medical History Bifascicular block CAD (coronary artery disease) Diabetes HLD (hyperlipidemia) HTN (hypertension) Myocardial infarct, old Pancytopenia Prostate CA Social History Social History Household Members: Significant Other Housing: House Alcohol intake: never Smoking Status: Never smoker Use of substances other than those prescribed or required for medical reasons: No Advance Directives: No Advance Directives Information Provided: Yes Current occupational status: retired Physical Exam Vital Signs: Vital Signs: Last Vital Signs Temp 98.5 F 12/28/20 21:53 Pulse 79 12/28/20 21:53 Resp 15 12/28/20 21:53 BP 100/46 L 12/28/20 21:53 Pulse Ox 95 12/28/20 21:53 Oxygen Flow Rate 2 12/28/20 19:42 Body Mass Index 32.4 Appearance: Alert. Oriented X3. No acute distress. Eyes: Pupils equal, round and reactive to light. ENT: Pharynx normal. Neck: Normal inspection. Neck supple. No lymph nodes noted. No crepitus CVS: Normal heart rate and rhythm. Pulses normal. Normal S1 and S2 Respiratory: No respiratory distress. Breath sounds normal. No Wheezing. No rales Abdomen: Soft and nontender. No rigidity. No distention. good BS x4 Skin: Skin warm and dry. Normal skin color. Normal skin turgor. Extremities: History pitting edema bilaterally, No Lacerations. No Rash Neuro: Oriented X 3. No motor deficit. No sensory deficit. Moving all extermi ties. No slurred speech. Course Course Course Narrative: 21:50 patient's called, states that patient has been falling at home, prior to EMS arrival patient was acutely confused for a few minutes, seem to have ?garbled speech?. By the time EMS arrived to the patient's house, the patient was at baseline. They did not mention this to EMS, therefore we did not get report. Patient denies falling Head CT shows no acute pathology, patient does not have a PE. At this time, it is unclear why patient had a fever of 102.7. There is not a clear source of infection, sepsis is not suspected at this time. Medical Decision Making Lab Data Result diagrams: 12/28/20 20:44 12/28/20 20:44 Labs: Lab Results 12/28/20 12/28/20 12/28/20 Range/Units 19:57 19:57 20:44 WBC 3.1 L (4.8-10.8) X10*3/uL RBC 4.10 L (4.60-5.80) X10*6/uL Hgb 13.4 L (14.0-18.0) g/dl Hct 39.1 L (42-52) % MCV 95.4 (80-98) fL MCH 32.7 (27.0-33.0) pg MCHC 34.3 (31.0-36.0) g/dl RDW 15.2 (11.0-16.0) % Plt Count 44 L D (160-400) X10*3/uL MPV 11.1 (9.4-12.4) fL Immature Gran % (Auto) 0.6 H (0.0-0.4) % Neut % (Auto) 86.4 H (45-73) % Lymph % (Auto) 8.6 L (20-40) % [place] % (Auto) 4.1 (2-11) % Eos % (Auto) 0.0 (0-4) % Baso % (Auto) 0.3 (0-2) % Lymph # (Auto) 0.3 L (1.2-4.9) X10*3/uL [place] # (Auto) 0.1 (0.1-1.2) X10*3/uL Eos # (Auto) 0.0 (0.0-0.4) X10*3/uL Baso # (Auto) 0.0 (0.0-0.2) X10*3/uL Abs Immat Gran (auto) 0.02 (0.00-0.03) X10*3/uL Absolute Neuts (auto) 2.7 (2.0-8.3) X10*3/uL Absolute Nucleated RBC 0.000 (0.0-0.012) X10*3/uL Nucleated RBC % (auto) 0.0 (0.0-0.2) /100WBC Smear Tech's Comments VERIFIED PT (10.8-13.0) SEC INR (0.9-1.1) Sodium (135-145) mmol/L Potassium (3.3-5.1) mmol/L Chloride (96-108) mmol/L Carbon Dioxide (22-29) mmol/L Anion Gap (12-20) BUN (9-16) mg/dL Creatinine (0.5-1.4) mg/dL Estim Creat Clear Calc Estimated GFR Random Glucose (60-115) mg/dL Lactic Acid (0.5-2.0) mmol/L Calcium (8.4-10.2) mg/dL Total Bilirubin (0.0-1.0) mg/dL Direct Bilirubin (0.0-0.5) mg/dL AST (5-37) U/L ALT (0-40) U/L Alkaline Phosphatase (39-117) U/L Troponin I High Sens (<3.5-35.0) ng/L B-Natriuretic Peptide (<100) pg/mL Total Protein (6.5-8.0) g/dL Albumin (3.5-5.0) g/dL Urine Color DARK YELLOW Urine Appearance CLEAR Urine pH 5.5 (5.0-8.0) Ur Specific [place] 1.025 (1.005-1.025) Urine Protein TRACE (NEG-TRACE) MG/DL Urine Glucose (UA) NEG (NEG) MG/DL Urine Ketones NEG (NEG) MG/DL Urine Blood 2+ H (NEG) Urine Nitrite NEG (NEG) Ur Leukocyte Esterase NEG (NEG) Urine RBC 0-2 (0) /HPF Urine WBC 0 (0-4) /HPF Ur Squamous Epith Cells NONE /LPF Urine Bacteria 1+ /LPF Coronavirus (PCR) NEGATIVE (Negative) Influenza Type A (PCR) NEGATIVE (Negative) Influenza Type B (PCR) NEGATIVE (Negative) RSV RNA Qual (PCR) NEGATIVE (Negative) 12/28/20 12/28/20 12/28/20 Range/Units 20:44 20:44 20:44 WBC (4.8-10.8) X10*3/uL RBC (4.60-5.80) X10*6/uL Hgb (14.0-18.0) g/dl Hct (42-52) % MCV (80-98) fL MCH (27.0-33.0) pg MCHC (31.0-36.0) g/dl RDW (11.0-16.0) % Plt Count (160-400) X10*3/uL MPV (9.4-12.4) fL Immature Gran % (Auto) (0.0-0.4) % Neut % (Auto) (45-73) % Lymph % (Auto) (20-40) % [place] % (Auto) (2-11) % Eos % (Auto) (0-4) % Baso % (Auto) (0-2) % Lymph # (Auto) (1.2-4.9) X10*3/uL [place] # (Auto) (0.1-1.2) X10*3/uL Eos # (Auto) (0.0-0.4) X10*3/uL Baso # (Auto) (0.0-0.2) X10*3/uL Abs Immat Gran (auto) (0.00-0.03) X10*3/uL Absolute Neuts (auto) (2.0-8.3) X10*3/uL Absolute Nucleated RBC (0.0-0.012) X10*3/uL Nucleated RBC % (auto) (0.0-0.2) /100WBC Smear Padmini's Comments PT 65.3 H (10.8-13.0) SEC INR 5.4 H* (0.9-1.1) Sodium 134 L (135-145) mmol/L Potassium 4.4 (3.3-5.1) mmol/L Chloride 101 (96-108) mmol/L Carbon Dioxide 24 (22-29) mmol/L Anion Gap 13 (12-20) BUN 28 H (9-16) mg/dL Creatinine 1.03 (0.5-1.4) mg/dL Estim Creat Clear Calc 59.3 Estimated GFR > 60 Random Glucose 60 D (60-115) mg/dL Lactic Acid 1.4 (0.5-2.0) mmol/L Calcium 8.3 L D (8.4-10.2) mg/dL Total Bilirubin 2.2 H (0.0-1.0) mg/dL Direct Bilirubin 1.0 H (0.0-0.5) mg/dL AST 103 H (5-37) U/L ALT 73 H (0-40) U/L Alkaline Phosphatase 88 (39-117) U/L Troponin I High Sens (<3.5-35.0) ng/L B-Natriuretic Peptide (<100) pg/mL Total Protein 6.1 L (6.5-8.0) g/dL Albumin 3.3 L (3.5-5.0) g/dL Urine Color Urine Appearance Urine pH (5.0-8.0) Ur Specific [place] (1.005-1.025) Urine Protein (NEG-TRACE) MG/DL Urine Glucose (UA) (NEG) MG/DL Urine Ketones (NEG) MG/DL Urine Blood (NEG) Urine Nitrite (NEG) Ur Leukocyte Esterase (NEG) Urine RBC (0) /HPF Urine WBC (0-4) /HPF Ur Squamous Epith Cells /LPF Urine Bacteria /LPF Coronavirus (PCR) (Negative) Influenza Type A (PCR) (Negative) Influenza Type B (PCR) (Negative) RSV RNA Qual (PCR) (Negative) 12/28/20 Range/Units 20:44 WBC (4.8-10.8) X10*3/uL RBC (4.60-5.80) X10*6/uL Hgb (14.0-18.0) g/dl Hct (42-52) % MCV (80-98) fL MCH (27.0-33.0) pg MCHC (31.0-36.0) g/dl RDW (11.0-16.0) % Plt Count (160-400) X10*3/uL MPV (9.4-12.4) fL Immature Gran % (Auto) (0.0-0.4) % Neut % (Auto) (45-73) % Lymph % (Auto) (20-40) % [place] % (Auto) (2-11) % Eos % (Auto) (0-4) % Baso % (Auto) (0-2) % Lymph # (Auto) (1.2-4.9) X10*3/uL [place] # (Auto) (0.1-1.2) X10*3/uL Eos # (Auto) (0.0-0.4) X10*3/uL Baso # (Auto) (0.0-0.2) X10*3/uL Abs Immat Gran (auto) (0.00-0.03) X10*3/uL Absolute Neuts (auto) (2.0-8.3) X10*3/uL Absolute Nucleated RBC (0.0-0.012) X10*3/uL Nucleated RBC % (auto) (0.0-0.2) /100WBC Smear Tech's Comments PT (10.8-13.0) SEC INR (0.9-1.1) Sodium (135-145) mmol/L Potassium (3.3-5.1) mmol/L Chloride (96-108) mmol/L Carbon Dioxide (22-29) mmol/L Anion Gap (12-20) BUN (9-16) mg/dL Creatinine (0.5-1.4) mg/dL Estim Creat Clear Calc Estimated GFR Random Glucose (60-115) mg/dL Lactic Acid (0.5-2.0) mmol/L Calcium (8.4-10.2) mg/dL Total Bilirubin (0.0-1.0) mg/dL Direct Bilirubin (0.0-0.5) mg/dL AST (5-37) U/L ALT (0-40) U/L Alkaline Phosphatase (39-117) U/L Troponin I High Sens 122.0 H D (<3.5-35.0) ng/L B-Natriuretic Peptide 262 H (<100) pg/mL Total Protein (6.5-8.0) g/dL Albumin (3.5-5.0) g/dL Urine Color Urine Appearance Urine pH (5.0-8.0) Ur Specific [place] (1.005-1.025) Urine Protein (NEG-TRACE) MG/DL Urine Glucose (UA) (NEG) MG/DL Urine Ketones (NEG) MG/DL Urine Blood (NEG) Urine Nitrite (NEG) Ur Leukocyte Esterase (NEG) Urine RBC (0) /HPF Urine WBC (0-4) /HPF Ur Squamous Epith Cells /LPF Urine Bacteria /LPF Coronavirus (PCR) (Negative) Influenza Type A (PCR) (Negative) Influenza Type B (PCR) (Negative) RSV RNA Qual (PCR) (Negative) Imaging Data Chest x-ray: Radiologist's impression: FINDINGS: No significant abnormality is noted involving the heart, lungs, mediastinum, bony thorax or soft tissues. XR/XR chest 1V IMPRESSION: Unremarkable chest examination. No change from 12/14/2020. Head CT: Radiologist's impression: There is no evidence of acute intracranial hemorrhage or territorial infarction. No abnormal mass effect or midline shift is seen. Purvis to white matter differentiation is well preserved. No extra-axial fluid collections are identified. Both ventricles are symmetrical but slightly enlarged. No abnormal purvis matter degeneration seen. The osseous structures and soft tissues are normal. There is a small polyp or retention cyst floor of right maxillary sinus. Rest of the paranasal sinuses and mastoid air cells are well-aerated. CT/CT head/brain wo con IMPRESSION: No acute intracranial process seen. CT for PE: Radiologist's impression: INDINGS: QUALITY OF STUDY/CONTRAST BOLUS: Satisfactory. PULMONARY ARTERIES: No central or segmental pulmonary emboli. THORACIC AORTA: No aneurysm or dissection. LUNG: Moderate dependent changes. No acute or suspicious osseous abnormality. The trachea is midline and central airways are patent. PLEURA: No pleural effusion or pneumothorax. MEDIASTINUM: Heart size is mildly enlarged. Trace pericardial fluid. Coronary artery calcifications. No mediastinal or hilar adenopathy. Similar-appearing 1.8 x 1.1 cm oval lesion right lateral of the esophagus at the level of the aortic arch. No evidence of septal bowing or right heart strain. CHEST WALL/AXILLA: No axillary or internal mammary lymphadenopathy. OSSEOUS STRUCTURES: No acute or suspicious osseous abnormality. Old left lateral sixth rib fracture. UPPER ABDOMEN: Of the partially imaged upper abdomen, splenomegaly is seen, new since the prior study. There is reflux of contrast into the inferior vena cava. CT/CT angio chest PE protocol IMPRESSION: 1. No evidence of acute pulmonary embolism. 2. Reflux of contrast into the IVC suggesting possible elevated right heart pressure. 3. No splenomegaly, partially imaged. 4. Stable oval lesion adjacent to the esophagus, remaining indeterminate but not significantly changed since 2019. 5. Coronary artery calcifications. VTE: negative ECG Data Attestation: I personally reviewed and interpreted this ECG as follows: (Sinus rhythm, heart rate 83, old bifascicular block in comparison to EKG of 12/23/2020, no ST segment depression or elevation, QTC 455) Discharge Plan Discharge Clinical Impression: CHF (congestive heart failure), Supratherapeutic INR, Fever of unknown origin Patient Disposition: Admitted As Inpatient Prescriptions: No Action atorvastatin 40 mg tablet 1 tab PO BEDTIME RF: 0 losartan 25 mg tablet 1 tab PO DAILY RF: 0 fluticasone propionate 50 mcg/actuation spray,suspension 2 spray intranasal DAILY RF: 0 cholecalciferol (vitamin D3) 125 mcg (5,000 unit) capsule 1 cap PO DAILY RF: 0 pregabalin 150 mg capsule 1 cap PO TID RF: 0 Myrbetriq 25 mg tablet extended release 24 hr 1 tab PO DAILY RF: 0 Tresiba FlexTouch U-100 100 unit/mL (3 mL) insulin pen 88 unit subcut DAILY RF: 0 Combivent Respimat 20-100 mcg/actuation mist 1 puff inhalation QID RF: 0 multivitamin Tablet 1 tab PO DAILY RF: 0 insulin aspart U-100 [Novolog U-100 Insulin aspart] 100 unit/mL Solution 1 sliding scale dose SUBCUT USEASDIRECTD RF: 0 warfarin 2 mg tablet 4 mg PO DAILY@1800 Qty: 60 RF: 0 oxycodone-acetaminophen [Percocet] 5-325 mg tablet 1 tab PO TID PRN (Reason: pain) Qty: 9 RF: 0
[2020-12-28] MEDS: Acetaminophen 325 MG TABLET 650 MG PO (20:48)
[2020-12-28 20:49] LABS: Influenza A PCR NEGATIVE (Negative); Influenza B PCR NEGATIVE (Negative); Resp Syncy Virus RNA Qual PCR NEGATIVE (Negative); SARS COV2 PCR INHOUSE NEGATIVE (Negative)
[2020-12-28 20:50] VITALS: BP 115/56; PULSE 80; RESP 16; O2SAT 98
[2020-12-28 20:53] LABS: Hemoglobin 13.4 g/dl (14.0-18.0); Imm Gran Abs Auto 0.02 X10*3/uL (0.00-0.03); Imm Gran Pct Auto 0.6 % (0.0-0.4); MANUAL DIFF FLAG SCAN; Mean Corpuscular Volume 95.4 fL (80-98); PLT CLUMP 1; SCAN SMEAR FLAG 1
[2020-12-28 20:55] LABS: Basophils Percent Auto 0.3 % (0-2); Hematocrit 39.1 % (42-52); Lymphocytes Absolute Auto 0.3 X10*3/uL (1.2-4.9); Lymphocytes Percent Auto 8.6 % (20-40); Mean Corpuscular HGB Conc 34.3 g/dl (31.0-36.0); Mean Corpuscular Hemoglobin 32.7 pg (27.0-33.0); Mean Platelet Volume 11.1 fL (9.4-12.4); Monocytes Absolute Auto 0.1 X10*3/uL (0.1-1.2); Monocytes Percent Auto 4.1 % (2-11); Neutrophils Absolute Auto 2.7 X10*3/uL (2.0-8.3); Neutrophils Percent Auto 86.4 % (45-73); Red Cell Distribution Width 15.2 % (11.0-16.0); White Blood Count 3.1 X10*3/uL (4.8-10.8)
[2020-12-28 21:06] LABS: Prothrombin Time 65.3 SEC (10.8-13.0)
[2020-12-28 21:08] LABS: INTERNATIONAL NORM RATIO 5.4 (0.9-1.1)
[2020-12-28 21:09] LABS: Lactic Acid 1.4 mmol/L (0.5-2.0)
[2020-12-28 21:25] LABS: Platelet Count 44 X10*3/uL (160-400)
[2020-12-28 21:26] LABS: SLIDE REVIEW VERIFIED
[2020-12-28 21:36] LABS: B Type Natriuretic Peptide 262 pg/mL (<100)
[2020-12-28 21:37] LABS: Alanine Aminotransferase 73 U/L (0-40); Albumin Level 3.3 g/dL (3.5-5.0); Alkaline Phosphatase 88 U/L (39-117); Anion Gap 13 (12-20); Aspartate Amino Transferase 103 U/L (5-37); Bilirubin Total 2.2 mg/dL (0.0-1.0); Blood Urea Nitrogen 28 mg/dL (9-16); Calcium 8.3 mg/dL (8.4-10.2); Carbon Dioxide 24 mmol/L (22-29); Chloride 101 mmol/L (96-108); Creatinine Clr Calc Pharmacy 59.3; Estimated Glomerular Filt Rate > 60; Glucose Random 60 mg/dL (60-115); Potassium 4.4 mmol/L (3.3-5.1); Sodium 134 mmol/L (135-145); Total Protein 6.1 g/dL (6.5-8.0)
--- NOTE | 2020-12-28 21:50 | PC.NURSE ---
Pt reports frequents unwitnessed falls at home, unknown head strike or loc. Reports sudden onset garbled...incomprehensible speech prior to calling the ambulance. Upon arrival pt neuros intact and remain intact at this time.
[2020-12-28 21:53] VITALS: BP 100/46; PULSE 79; RESP 15; TEMP 36.9; O2SAT 95
[2020-12-28 23:42] VITALS: BP 123/56; PULSE 94; RESP 20; TEMP 37.1; O2SAT 97
[2020-12-29] VITALS (11 sets, daily range): BP systolic 109–136; BP diastolic 53–71; PULSE 52–110; RESP 16–18; TEMP 36.1–37.2; O2SAT 93–99; BMI 32.0; BMI 32.1
[2020-12-29 00:24] LABS: Troponin-I High Sensitivity 144.6 ng/L (<3.5-35.0)
[2020-12-29] MEDS: Furosemide 40 MG/4 ML VIAL IVPUSH ×2 (02:51→15:15)
[2020-12-29 02:56] LABS: Glucose, Whole Blood 38 mg/dL (60-115)
[2020-12-29 03:27] LABS: Glucose, Whole Blood 167 mg/dL (60-115)
--- NOTE | 2020-12-29 05:36 | P.HPHOSP_ITS ---
History of Present Illness Date of Service: 12/28/20 Chief Complaint: SOB This is an 85-year-old male with past medical history of CAD, diabetes, HLD, HTN, recently diagnosed AFib on Coumadin, who presents to the hospital with shortness of breath and leg swelling. Patient appears very tired on my interview, but able to stay up long enough to give me answers. Of note patient was discharged on December 16 after being managed for new onset AFib and bradycardia thought to be related to metoprolol. It appears that mostly family sent the patient home because they were concerned about him having shortness of breath and falling, according to the family has also been confused lately although the patient denies. Patient is alert and oriented x3. He reports that mostly he came in because his legs have been given out on him, they feel weak, his also noticed leg swelling for the past 3 days. Although he denies shortness of breath in most situations, he does report some dyspnea on exertion. Denies any cough or sputum production, denies any fever or chills, no abdominal pain nausea or vomiting, no diarrhea constipation. No urinary symptoms. On arrival patient had an initial temp of 98.2 ? that increased to temp of 102.7?, heart rate ranging from 70s to mid 30s, respiratory rate of 17, blood pressure 178/74, satting 97% on 2 L of oxygen. Apparently was 90% on room air. Labs are significant for WBC count of hemoglobin of 13.7, hematocrit 41.2, PT of 67.2, INR of 5.6, BUN of 23, creatinine of 1.07, lactic acid of 1.3, total bili of 1.2, AST of 48, ALT of 66 (Lower than previous), BNP of 262 UA is negative, COVID-19 influenza A/B and RSV negative. No evidence of acute pulmonary embolism, no splenomegaly, stable overall lesion adjacent to the esophagus, coronary artery calcification, reflux of contrast into IVC suggesting possible elevated right heart pressure Has CT negative Past medical history as below on comply with patient Review of Systems Review of Systems: Yes all other systems are reviewed and are negative [facility] Medical History (Updated 12/29/20 @ 05:47 by Robert Hsieh MD) Atrial fibrillation Bifascicular block CAD (coronary artery disease) Diabetes HLD (hyperlipidemia) HTN (hypertension) Myocardial infarct, old Pancytopenia Prostate CA Social History Household Members: Spouse Housing: House Do you presently have visiting nurse or other home services: Yes (vna qd to check inr/ call md for adjustment of coumadin) Alcohol intake: never Smoking Status: Never smoker Use of substances other than those prescribed or required for medical reasons: No Have you been hit, kicked, punched, or otherwise hurt by someone within the past year? 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 1995 Advance Directives: No Advance Directives Information Provided: Yes ( Mckenzie - HCP) Do you have thoughts of harming others: None Do you have a plan to hurt others: No Plan Recently lost weight without trying: Unsure Poor oral hygiene: No Current occupational status: retired [employer] Allergies Allergy/AdvReac Type Severity Reaction Status Date / Time No Known Allergies Allergy Mild N/A Verified 12/28/20 19:51 Active Medications: Current Medications Generic Name Dose Route Start Last Admin Trade Name Freq PRN Reason Stop Dose Admin Acetaminophen 650 mg 12/29/20 01:42 Acetaminophen 325 Mg Tablet PO Q6H PRN Pain, Mild (Pain Scale 1-3) Docusate Sodium 100 mg 12/29/20 01:42 Docusate Sodium 100 Mg Capsule PO DAILY PRN Constipation Furosemide 40 mg 12/29/20 02:00 12/29/20 02:51 Furosemide 40 Mg/4 Ml Vial IVPUSH 40 mg Q12H LESA Administration Protocol Ondansetron HCl 4 mg 12/29/20 01:42 Ondansetron Hcl 4 Mg/2 Ml Vial IVPUSH Q8H PRN Nausea and Vomiting Sodium Chloride 3 ml 12/29/20 01:42 12/29/20 03:12 0.9 % Sodium Chloride Flush 3 Ml Syringe IVFLUSH Not Given QSHIFT [facility] Home Medications Medication Instructions Recorded Confirmed Last Taken Type Combivent Respimat 1 puff INHALATION QID 12/14/20 12/29/20 Unknown History Myrbetriq 1 tab PO DAILY 12/14/20 12/29/20 Unknown History Tresiba FlexTouch U-100 88 unit SUBCUT DAILY 12/14/20 12/29/20 Unknown History atorvastatin 1 tab PO BEDTIME 12/14/20 12/29/20 12/13/20 History cholecalciferol (vitamin D3) 1 cap PO DAILY 12/14/20 12/29/20 12/14/20 History fluticasone propionate 2 spray INTRANASAL DAILY 12/14/20 12/29/20 Unknown History insulin aspart U-100 [Novolog 1 sliding scale dose SUBCUT 12/14/20 12/29/20 Unknown History U-100 Insulin aspart] USEASDIRECTD losartan 1 tab PO DAILY 12/14/20 12/29/20 Unknown History multivitamin 1 tab PO DAILY 12/14/20 12/29/20 Unknown History pregabalin 1 cap PO TID 12/28/20 12/29/20 Unknown History warfarin 4 mg PO DAILY@1700 12/28/20 12/29/20 Unknown History Physical Exam Vital Signs and Narrative: Vital Signs: Last Vital Signs Temp 98.6 F 12/29/20 03:42 Pulse 75 12/29/20 03:42 Resp 18 12/29/20 03:42 BP 120/62 12/29/20 03:42 Pulse Ox 98 12/29/20 03:42 Oxygen Flow Rate 2 12/28/20 19:42 Body Mass Index 32.0 Const: Other: Sleepy but arousable General: cooperative, no acute distress and tired appearing Orientation/consciousness: patient oriented x3 Eyes: General: appearance normal, both eyes and all related structures Resp: Effort & Inspection: normal respiratory effort, able to speak in com plete sentences and abnormal respiratory pattern Auscultation: clear to a uscultation bilaterally Cardio: Rate: regular rate Rhythm: regular rhythm GI: Palpation (GI): Soft to palpation Auscultation: normal bowel sounds Skin: General skin exam: no rashes or lesions noted Neuro: General: patient oriented x3 Cognition (Neuro): normal cognition Extrem: Other: 3+ pitting edema extending just below the knee in lower extremities bilaterally General: Yes normal to inspection Results Labs CBC and Chem 7: 12/28/20 20:44 12/28/20 20:44 Labs: Laboratory Results - last 24 hr 12/28/20 12/28/20 12/28/20 19:57 19:57 20:44 MCV 95.4 MCH 32.7 MCHC 34.3 RDW 15.2 Plt Count 44 L D MPV 11.1 Immature Gran % (Auto) 0.6 H Neut % (Auto) 86.4 H Lymph % (Auto) 8.6 L [place] % (Auto) 4.1 Eos % (Auto) 0.0 Baso % (Auto) 0.3 Lymph # (Auto) 0.3 L [place] # (Auto) 0.1 Eos # (Auto) 0.0 Baso # (Auto) 0.0 Abs Immat Gran (auto) 0.02 Absolute Neuts (auto) 2.7 Absolute Nucleated RBC 0.000 Nucleated RBC % (auto) 0.0 Smear Tech's Comments VERIFIED PT INR Anion Gap Estim Creat Clear Calc Estimated GFR POC Glucose Random Glucose Lactic Acid Calcium Total Bilirubin Direct Bilirubin AST ALT Alkaline Phosphatase Troponin I High Sens B-Natriuretic Peptide Total Protein Albumin Urine Color DARK YELLOW Urine Appearance CLEAR Urine pH 5.5 Ur Specific [place] 1.025 Urine Protein TRACE Urine Glucose (UA) NEG Urine Ketones NEG Urine Blood 2+ H Urine Nitrite NEG Ur Leukocyte Esterase NEG Urine RBC 0-2 Urine WBC 0 Ur Squamous Epith Cells NONE Urine Bacteria 1+ Coronavirus (PCR) NEGATIVE Influenza Type A (PCR) NEGATIVE Influenza Type B (PCR) NEGATIVE RSV RNA Qual (PCR) NEGATIVE 12/28/20 12/28/20 12/28/20 20:44 20:44 20:44 MCV MCH MCHC RDW Plt Count MPV Immature Gran % (Auto) Neut % (Auto) Lymph % (Auto) [place] % (Auto) Eos % (Auto) Baso % (Auto) Lymph # (Auto) [place] # (Auto) Eos # (Auto) Baso # (Auto) Abs Immat Gran (auto) Absolute Neuts (auto) Absolute Nucleated RBC Nucleated RBC % (auto) Smear Tech's Comments PT 65.3 H INR 5.4 H* Anion Gap 13 Estim Creat Clear Calc 59.3 Estimated GFR > 60 POC Glucose Random Glucose 60 D Lactic Acid 1.4 Calcium 8.3 L D Total Bilirubin 2.2 H Direct Bilirubin 1.0 H AST 103 H ALT 73 H Alkaline Phosphatase 88 Troponin I High Sens B-Natriuretic Peptide Total Protein 6.1 L Albumin 3.3 L Urine Color Urine Appearance Urine pH Ur Specific [place] Urine Protein Urine Glucose (UA) Urine Ketones Urine Blood Urine Nitrite Ur Leukocyte Esterase Urine RBC Urine WBC Ur Squamous Epith Cells Urine Bacteria Coronavirus (PCR) Influenza Type A (PCR) Influenza Type B (PCR) RSV RNA Qual (PCR) 12/28/20 12/28/20 12/29/20 20:44 23:40 02:51 MCV MCH MCHC RDW Plt Count MPV Immature Gran % (Auto) Neut % (Auto) Lymph % (Auto) [place] % (Auto) Eos % (Auto) Baso % (Auto) Lymph # (Auto) [place] # (Auto) Eos # (Auto) Baso # (Auto) Abs Immat Gran (auto) Absolute Neuts (auto) Absolute Nucleated RBC Nucleated RBC % (auto) Smear Tech's Comments PT INR Anion Gap Estim Creat Clear Calc Estimated GFR POC Glucose 38 L* Random Glucose Lactic Acid Calcium Total Bilirubin Direct Bilirubin AST ALT Alkaline Phosphatase Troponin I High Sens 122.0 H D 144.6 H B-Natriuretic Peptide 262 H Total Protein Albumin Urine Color Urine Appearance Urine pH Ur Specific [place] Urine Protein Urine Glucose (UA) Urine Ketones Urine Blood Urine Nitrite Ur Leukocyte Esterase Urine RBC Urine WBC Ur Squamous Epith Cells Urine Bacteria Coronavirus (PCR) Influenza Type A (PCR) Influenza Type B (PCR) RSV RNA Qual (PCR) 12/29/20 03:23 MCV MCH MCHC RDW Plt Count MPV Immature Gran % (Auto) Neut % (Auto) Lymph % (Auto) [place] % (Auto) Eos % (Auto) Baso % (Auto) Lymph # (Auto) [place] # (Auto) Eos # (Auto) Baso # (Auto) Abs Immat Gran (auto) Absolute Neuts (auto) Absolute Nucleated RBC Nucleated RBC % (auto) Smear Tech's Comments PT INR Anion Gap Estim Creat Clear Calc Estimated GFR POC Glucose 167 H Random Glucose Lactic Acid Calcium Total Bilirubin Direct Bilirubin AST ALT Alkaline Phosphatase Troponin I High Sens B-Natriuretic Peptide Total Protein Albumin Urine Color Urine Appearance Urine pH Ur Specific [place] Urine Protein Urine Glucose (UA) Urine Ketones Urine Blood Urine Nitrite Ur Leukocyte Esterase Urine RBC Urine WBC Ur Squamous Epith Cells Urine Bacteria Coronavirus (PCR) Influenza Type A (PCR) Influenza Type B (PCR) RSV RNA Qual (PCR) Imaging Radiologist's Impressions: Impressions Chest X-Ray 12/28/20 19:55 IMPRESSION: Unremarkable chest examination. No change from 12/14/2020. Chest CTA 12/28/20 21:53 IMPRESSION: 1. No evidence of acute pulmonary embolism. 2. Reflux of contrast into the IVC suggesting possible elevated right heart pressure. 3. No splenomegaly, partially imaged. 4. Stable oval lesion adjacent to the esophagus, remaining indeterminate but not significantly changed since 2018. 5. Coronary artery calcifications. VTE: negative Head CT 12/28/20 21:54 IMPRESSION: No acute intracranial process seen. Assessment and Plan (1) CHF exacerbation: Status: Acute (2) Atrial fibrillation: Qualifiers: Atrial fibrillation type: unspecified Qualified Code(s): I48.91 - Unspecified atrial fibrillation Status: Acute (3) Supratherapeutic INR: Status: Acute (4) Fever of unknown origin: Status: Acute This is an 85-year-old male with past medical history of AFib, CAD who presents to the hospital with lower extremity edema as well as dyspnea found to have CHF # acute CHF exacerbation - elevated BNP, lower extremity edema, dyspnea - has an echo done in November that showed an ejection fraction of 50-55%, - will start him on Lasix 40 IV b.i.d. - strict I&O, daily weight, low-sodium diet - cardiology consult # fever of unknown origin - UA negative, chest CT does not show any infiltrate, no apparent soft tissue infection, no leukocytosis - received antibiotics in the ED - at this time will keep of antibiotics, follow cultures, if patient has repeat fever, will start antibiotic # supratherapeutic INR - INR 5.6 with no active bleed - will hold Coumadin - PT INR daily # atrial fib - supratherapeutic INR - metoprolol was held on previous admission for symptomatic bradycardia - will continue Coumadin once INR below 3 # diabetes - Pt had hypoglyceimia in ED - given significant hypoglycemia , will hold treseiba until glucose normalizes and or returns to his usual numbers - will place on low-dose sliding scale insulin - diabetic diet # hypertension - stable - continue losartan DVT prophylaxis: Coumadin
[2020-12-29 06:44] LABS: Hematocrit 34.3 % (42-52); Hemoglobin 11.7 g/dl (14.0-18.0); Mean Corpuscular HGB Conc 34.1 g/dl (31.0-36.0); Mean Corpuscular Hemoglobin 32.5 pg (27.0-33.0); Mean Corpuscular Volume 95.3 fL (80-98); Mean Platelet Volume 12.5 fL (9.4-12.4); White Blood Count 4.5 X10*3/uL (4.8-10.8)
[2020-12-29 06:45] LABS: Platelet Count 34 X10*3/uL (160-400)
[2020-12-29 07:16] LABS: Anion Gap 12 (12-20); Blood Urea Nitrogen 29 mg/dL (9-16); Calcium 7.7 mg/dL (8.4-10.2); Carbon Dioxide 25 mmol/L (22-29); Chloride 102 mmol/L (96-108); Creatinine Clr Calc Pharmacy 55.8; Estimated Glomerular Filt Rate > 60; Glucose Random 264 mg/dL (60-115); Potassium 3.8 mmol/L (3.3-5.1); Sodium 135 mmol/L (135-145)
[2020-12-29 07:22] LABS: Glucose, Whole Blood 245 mg/dL (60-115)
[2020-12-29 07:30] LABS: Band Neutrophils Percent 45 % (3-5); Basophils Percent Manual 1 % (0-1); Lymphocytes Absolute Manual 0.4 X10*3/uL (0.6-4.8); Lymphocytes Percent Manual 9 % (20-40); Monocytes Absolute Manual 0.3 X10*3/uL (0.0-1.2); Monocytes Percent Manual 6 % (2-11); Neutrophils Absolute Manual 3.8 X10*3/uL (2.2-7.9); Neutrophils Percent Manual 39 % (45-73)
[2020-12-29 07:31] LABS: RBC Morphology NOTED
[2020-12-29 07:32] LABS: Acanthocytes 1+ (0-2) /OIF; Platelet Estimate DECREASED (NORMAL); Platelet Morphology Comment NORMAL
[2020-12-29] MEDS: Multivitamin TABLET 1 TAB PO (07:55)
[2020-12-29] MEDS: 0.9 % Sodium Chloride Flush 3 ML SYRINGE IVFLUSH ×2 (07:55→15:15)
[2020-12-29] MEDS: Mirabegron 25 MG TAB.ER.24H PO (07:55)
[2020-12-29] MEDS: Losartan Potassium 25 MG TABLET PO (07:55)
[2020-12-29] MEDS: Pregabalin 150 MG CAPSULE PO ×3 (07:55→21:18)
[2020-12-29] MEDS: Fluticasone Propionate Nasal 16 GM SPRAY 2 SPRAY NOSTRIL-B (07:56)
[2020-12-29] MEDS: oxyCODONE HCl Immed Release 5 MG TABLET PO ×2 (08:55→21:18)
[2020-12-29] MEDS: predniSONE 20 MG TABLET PO (08:56)
[2020-12-29] MEDS: Albuterol/Iprat 2.5/0.5MG 3 ML AMPUL.NEB INHALE (11:04)
[2020-12-29 11:23] LABS: Glucose, Whole Blood 372 mg/dL (60-115)
[2020-12-29] MEDS: Insulin Lispro 100 UNIT/ML 3 ML VIAL SUBCUT ×3 (11:50→21:20)
[2020-12-29] MEDS: Metoprolol Tartrate 12.5 MG HALFTAB PO ×2 (11:51→21:19)
--- NOTE | 2020-12-29 12:24 | P.CONCA_ITS ---
History of Present Illness History of Present Illness Date of Service: 12/29/20 Consult reason: congestive heart failure Chief complaint: CHF exacerbation Narrative: This is a cardiology consultation regarding congestive heart failure. Patient has a history of recently diagnosed atrial fibrillation and was commenced on Coumadin. He presents to the hospital with leg swelling. He states that, for the last few days he has been having a lot of weakness in his legs. He could not stand or maintain his balance. Per H and P, he was also having some shortness of breath but patient denies that. Per family, that also been some confusion lately. No anginal-type chest pains. He has been admitted for further care for suspected congestive heart failure. Review of Systems Review of Systems: Yes all other systems are reviewed and are negative Cardiovascular: Cardiovascular: Reports as per HPI, Reports no additional cardiovascular complaints, Denies acrocyanosis, Denies cool extremities, Denies painful fingertips, Denies chest pain, Denies chest pain at rest, Denies diaphoresis, Denies syncope, Denies irregular heart rhythm, Denies claudication, Reports leg edema, Denies lightheadedness, Denies palpitations and Reports dyspnea Respiratory: Respiratory: Reports dyspnea Neurologic: Denies syncope Endocrine: Endocrine: Denies palpitations PMF Past Medical History Medical History (Updated 12/29/20 @ 12:32 by Jean Aguiar MD) Atrial fibrillation Bifascicular block CAD (coronary artery disease) Diabetes HLD (hyperlipidemia) HTN (hypertension) Myocardial infarct, old Pancytopenia Prostate CA Social History Social History Household Members: Spouse Housing: House Do you presently have visiting nurse or other home services: Yes (vna qd to check inr/ call md for adjustment of coumadin) Alcohol intake: never Smoking Status: Never smoker Use of substances other than those prescribed or required for medical reasons: No Currently Displaying Signs/Symptoms of Drug Intoxication Withdrawal: No Have you been hit, kicked, punched, or otherwise hurt by someone within the past year? 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 Advance Directives: No Advance Directives Information Provided: Yes ( Mckenzie - HCP) Do you have thoughts of harming others: None Do you have a plan to hurt others: No Plan Recently lost weight without trying: Unsure Poor oral hygiene: No Current occupational status: retired Meds Allergies Allergy/AdvReac Type Severity Reaction Status Date / Time No Known Allergies Allergy Mild N/A Verified 12/28/20 19:51 Active Medications: Current Medications Generic Name Dose Route Start Last Admin Trade Name Freq PRN Reason Stop Dose Admin Acetaminophen 650 mg 12/29/20 01:42 Acetaminophen 325 Mg Tablet PO Q6H PRN Pain, Mild (Pain Scale 1-3) Albuterol/Ipratropium 3 ml 12/29/20 06:00 12/29/20 11:04 Albuterol/Iprat 2.5/0.5mg 3 Ml Ampul.Neb INHALE 3 ml RQ6H LESA Administration Atorvastatin Calcium 40 mg 12/29/20 21:00 Atorvastatin Calcium 40 Mg Tablet PO BEDTIME LESA Docusate Sodium 100 mg 12/29/20 01:42 Docusate Sodium 100 Mg Capsule PO DAILY PRN Constipation Fluticasone Propionate 2 spray 12/29/20 09:00 12/29/20 07:56 Fluticasone Propionate Nasal 16 Gm [place] NOSTRIL-B 2 spray DAILY LESA Administration Furosemide 40 mg 12/29/20 02:00 12/29/20 02:51 Furosemide 40 Mg/4 Ml Vial IVPUSH 40 mg Q12H LESA Administration Protocol Insulin Human Lispro 0 unit 12/29/20 11:30 12/29/20 11:50 Insulin Lispro 100 Unit/Ml 3 Ml Vial SUBCUT 10 unit QIDACHS LESA Administration Protocol Losartan Potassium 25 mg 12/29/20 09:00 12/29/20 07:55 Losartan Potassium 25 Mg Tablet PO 25 mg DAILY LESA Administration Protocol Metoprolol Tartrate 12.5 mg 12/29/20 11:35 12/29/20 11:51 Metoprolol Tartrate 12.5 Mg Halftab PO 12.5 mg BID LESA Administration Protocol Mirabegron 25 mg 12/29/20 09:00 12/29/20 07:55 Mirabegron 25 Mg Tab.Er.24h PO 25 mg DAILY LESA Administration Multivitamins/Vitamin C 1 tab 12/29/20 09:00 12/29/20 07:55 Multivitamin Tablet PO 1 tab DAILY LESA Administration Ondansetron HCl 4 mg 12/29/20 01:42 Ondansetron Hcl 4 Mg/2 Ml Vial IVPUSH Q8H PRN Nausea and Vomiting Oxycodone HCl 5 mg 12/29/20 08:26 12/29/20 08:55 Oxycodone Hcl Immed Release 5 Mg Tablet PO 5 mg Q6H PRN Administration Pain, Severe (Pain Scale 7-10) Prednisone 20 mg 12/29/20 09:00 12/29/20 08:56 Prednisone 20 Mg Tablet PO 20 mg DAILY LESA Administration Pregabalin 150 mg 12/29/20 09:00 12/29/20 07:55 Pregabalin 150 Mg Capsule PO 150 mg TID LESA Administration Sodium Chloride 3 ml 12/29/20 01:42 12/29/20 07:55 0.9 % Sodium Chloride Flush 3 Ml Syringe IVFLUSH 3 ml QSHIFT [facility] Administration Home Medications Medication Instructions Recorded Confirmed Last Taken Type Combivent Respimat 1 puff INHALATION QID 12/14/20 12/29/20 Unknown History Myrbetriq 1 tab PO DAILY 12/14/20 12/29/20 Unknown History Tresiba FlexTouch U-100 88 unit SUBCUT DAILY 12/14/20 12/29/20 Unknown History atorvastatin 1 tab PO BEDTIME 12/14/20 12/29/20 12/13/20 History cholecalciferol (vitamin D3) 1 cap PO DAILY 12/14/20 12/29/20 12/14/20 History fluticasone propionate 2 spray INTRANASAL DAILY 12/14/20 12/29/20 Unknown History insulin aspart U-100 [Novolog 1 sliding scale dose SUBCUT 12/14/20 12/29/20 Unknown History U-100 Insulin aspart] USEASDIRECTD losartan 1 tab PO DAILY 12/14/20 12/29/20 Unknown History multivitamin 1 tab PO DAILY 12/14/20 12/29/20 Unknown History pregabalin 1 cap PO TID 12/28/20 12/29/20 Unknown History warfarin 4 mg PO DAILY@1700 12/28/20 12/29/20 Unknown History Physical Exam Vital Signs: Vital Signs: Last Vital Signs Temp 97.0 F 12/29/20 11:35 Pulse 84 12/29/20 11:51 Resp 16 12/29/20 11:35 BP 114/58 L 12/29/20 11:51 Pulse Ox 98 12/29/20 11:43 Oxygen Flow Rate 2 12/28/20 19:42 Body Mass Index 32.1 Const: General: cooperative, comfortable and no acute distress Orientation/consciousness: patient oriented x3 HENMT: Other: Unremarkable Neck: Neck: Yes normal visual inspection Chest: Chest palpation & inspection: normal inspection of the chest Resp: Auscultation: clear to auscultation bilaterally, no crackles and no wheezes Cardio: Jugular venous distension: no JVD Palpation: normal PMI Heart sounds: S1 normal heart sound present, S2 normal heart sound present, no gallops, no murmurs and no rubs GI: Palpation (GI): Soft to palpation Back/Spine/Pelvis: Other: unremarkable Skin: General skin exam: no rashes or lesions noted Neuro: General: patient oriented x3 Extrem: General: Yes edema (2+) Psych: Mental Status: mental status grossly normal Results Labs and Meds Result diagrams: 12/29/20 06:03 12/29/20 06:03 Lab results: Laboratory Results - last 24 hr 12/28/20 12/28/20 12/28/20 19:57 19:57 20:44 WBC 3.1 L RBC 4.10 L Hgb 13.4 L Hct 39.1 L MCV 95.4 MCH 32.7 MCHC 34.3 RDW 15.2 Plt Count 44 L D MPV 11.1 Immature Gran % (Auto) 0.6 H Neut % (Auto) 86.4 H Lymph % (Auto) 8.6 L [place] % (Auto) 4.1 Eos % (Auto) 0.0 Baso % (Auto) 0.3 Lymph # (Auto) 0.3 L [place] # (Auto) 0.1 Eos # (Auto) 0.0 Baso # (Auto) 0.0 Abs Immat Gran (auto) 0.02 Absolute Neuts (auto) 2.7 Absolute Nucleated RBC 0.000 Nucleated RBC % (auto) 0.0 Neutrophils % (Manual) Band Neutrophils % Lymphocytes % (Manual) Monocytes % (Manual) Basophils % (Manual) Abs Neuts (Manual) Lymphocytes # (Manual) Monocytes # (Manual) Platelet Estimate Plt Morphology Comment RBC Morphology Acanthocytes (Spur) Smear Tech's Comments VERIFIED PT INR Sodium Potassium Chloride Carbon Dioxide Anion Gap BUN Creatinine Estim Creat Clear Calc Estimated GFR POC Glucose Random Glucose Lactic Acid Calcium Total Bilirubin Direct Bilirubin AST ALT Alkaline Phosphatase Troponin I High Sens B-Natriuretic Peptide Total Protein Albumin Urine Color DARK YELLOW Urine Appearance CLEAR Urine pH 5.5 Ur Specific [place] 1.025 Urine Protein TRACE Urine Glucose (UA) NEG Urine Ketones NEG Urine Blood 2+ H Urine Nitrite NEG Ur Leukocyte Esterase NEG Urine RBC 0-2 Urine WBC 0 Ur Squamous Epith Cells NONE Urine Bacteria 1+ Coronavirus (PCR) NEGATIVE Influenza Type A (PCR) NEGATIVE Influenza Type B (PCR) NEGATIVE RSV RNA Qual (PCR) NEGATIVE 12/28/20 12/28/20 12/28/20 20:44 20:44 20:44 WBC RBC Hgb Hct MCV MCH MCHC RDW Plt Count MPV Immature Gran % (Auto) Neut % (Auto) Lymph % (Auto) [place] % (Auto) Eos % (Auto) Baso % (Auto) Lymph # (Auto) [place] # (Auto) Eos # (Auto) Baso # (Auto) Abs Immat Gran (auto) Absolute Neuts (auto) Absolute Nucleated RBC Nucleated RBC % (auto) Neutrophils % (Manual) Band Neutrophils % Lymphocytes % (Manual) Monocytes % (Manual) Basophils % (Manual) Abs Neuts (Manual) Lymphocytes # (Manual) Monocytes # (Manual) Platelet Estimate Plt Morphology Comment RBC Morphology Acanthocytes (Spur) Smear Tech's Comments PT 65.3 H INR 5.4 H* Sodium 134 L Potassium 4.4 Chloride 101 Carbon Dioxide 24 Anion Gap 13 BUN 28 H Creatinine 1.03 Estim Creat Clear Calc 59.3 Estimated GFR > 60 POC Glucose Random Glucose 60 D Lactic Acid 1.4 Calcium 8.3 L D Total Bilirubin 2.2 H Direct Bilirubin 1.0 H AST 103 H ALT 73 H Alkaline Phosphatase 88 Troponin I High Sens B-Natriuretic Peptide Total Protein 6.1 L Albumin 3.3 L Urine Color Urine Appearance Urine pH Ur Specific [place] Urine Protein Urine Glucose (UA) Urine Ketones Urine Blood Urine Nitrite Ur Leukocyte Esterase Urine RBC Urine WBC Ur Squamous Epith Cells Urine Bacteria Coronavirus (PCR) Influenza Type A (PCR) Influenza Type B (PCR) RSV RNA Qual (PCR) 12/28/20 12/28/20 12/29/20 20:44 23:40 02:51 WBC RBC Hgb Hct MCV MCH MCHC RDW Plt Count MPV Immature Gran % (Auto) Neut % (Auto) Lymph % (Auto) [place] % (Auto) Eos % (Auto) Baso % (Auto) Lymph # (Auto) [place] # (Auto) Eos # (Auto) Baso # (Auto) Abs Immat Gran (auto) Absolute Neuts (auto) Absolute Nucleated RBC Nucleated RBC % (auto) Neutrophils % (Manual) Band Neutrophils % Lymphocytes % (Manual) Monocytes % (Manual) Basophils % (Manual) Abs Neuts (Manual) Lymphocytes # (Manual) Monocytes # (Manual) Platelet Estimate Plt Morphology Comment RBC Morphology Acanthocytes (Spur) Smear Tech's Comments PT INR Sodium Potassium Chloride Carbon Dioxide Anion Gap BUN Creatinine Estim Creat Clear Calc Estimated GFR POC Glucose 38 L* Random Glucose Lactic Acid Calcium Total Bilirubin Direct Bilirubin AST ALT Alkaline Phosphatase Troponin I High Sens 122.0 H D 144.6 H B-Natriuretic Peptide 262 H Total Protein Albumin Urine Color Urine Appearance Urine pH Ur Specific [place] Urine Protein Urine Glucose (UA) Urine Ketones Urine Blood Urine Nitrite Ur Leukocyte Esterase Urine RBC Urine WBC Ur Squamous Epith Cells Urine Bacteria Coronavirus (PCR) Influenza Type A (PCR) Influenza Type B (PCR) RSV RNA Qual (PCR) 12/29/20 12/29/20 12/29/20 03:23 06:03 06:03 WBC 4.5 L RBC 3.60 L Hgb 11.7 L Hct 34.3 L MCV 95.3 MCH 32.5 MCHC 34.1 RDW 15.0 Plt Count 34 L MPV 12.5 H Immature Gran % (Auto) Cancelled Neut % (Auto) Cancelled Lymph % (Auto) Cancelled [place] % (Auto) Cancelled Eos % (Auto) Cancelled Baso % (Auto) Cancelled Lymph # (Auto) Cancelled [place] # (Auto) Cancelled Eos # (Auto) Cancelled Baso # (Auto) Cancelled Abs Immat Gran (auto) Cancelled Absolute Neuts (auto) Cancelled Absolute Nucleated RBC 0.000 Nucleated RBC % (auto) 0.0 Neutrophils % (Manual) 39 L Band Neutrophils % 45 H Lymphocytes % (Manual) 9 L Monocytes % (Manual) 6 Basophils % (Manual) 1 Abs Neuts (Manual) 3.8 Lymphocytes # (Manual) 0.4 L Monocytes # (Manual) 0.3 Platelet Estimate DECREASED Plt Morphology Comment NORMAL RBC Morphology NOTED Acanthocytes (Spur) 1+ (0-2) Smear Tech's Comments PT INR Sodium 135 Potassium 3.8 Chloride 102 Carbon Dioxide 25 Anion Gap 12 BUN 29 H Creatinine 1.09 Estim Creat Clear Calc 55.8 Estimated GFR > 60 POC Glucose 167 H Random Glucose 264 H D Lactic Acid Calcium 7.7 L D Total Bilirubin Direct Bilirubin AST ALT Alkaline Phosphatase Troponin I High Sens B-Natriuretic Peptide Total Protein Albumin Urine Color Urine Appearance Urine pH Ur Specific [place] Urine Protein Urine Glucose (UA) Urine Ketones Urine Blood Urine Nitrite Ur Leukocyte Esterase Urine RBC Urine WBC Ur Squamous Epith Cells Urine Bacteria Coronavirus (PCR) Influenza Type A (PCR) Influenza Type B (PCR) RSV RNA Qual (PCR) 12/29/20 12/29/20 07:19 11:18 WBC RBC Hgb Hct MCV MCH MCHC RDW Plt Count MPV Immature Gran % (Auto) Neut % (Auto) Lymph % (Auto) [place] % (Auto) Eos % (Auto) Baso % (Auto) Lymph # (Auto) [place] # (Auto) Eos # (Auto) Baso # (Auto) Abs Immat Gran (auto) Absolute Neuts (auto) Absolute Nucleated RBC Nucleated RBC % (auto) Neutrophils % (Manual) Band Neutrophils % Lymphocytes % (Manual) Monocytes % (Manual) Basophils % (Manual) Abs Neuts (Manual) Lymphocytes # (Manual) Monocytes # (Manual) Platelet Estimate Plt Morphology Comment RBC Morphology Acanthocytes (Spur) Smear Tech's Comments PT INR Sodium Potassium Chloride Carbon Dioxide Anion Gap BUN Creatinine Estim Creat Clear Calc Estimated GFR POC Glucose 245 H 372 H* Random Glucose Lactic Acid Calcium Total Bilirubin Direct Bilirubin AST ALT Alkaline Phosphatase Troponin I High Sens B-Natriuretic Peptide Total Protein Albumin Urine Color Urine Appearance Urine pH Ur Specific [place] Urine Protein Urine Glucose (UA) Urine Ketones Urine Blood Urine Nitrite Ur Leukocyte Esterase Urine RBC Urine WBC Ur Squamous Epith Cells Urine Bacteria Coronavirus (PCR) Influenza Type A (PCR) Influenza Type B (PCR) RSV RNA Qual (PCR) ECG Attestation: I personally reviewed and interpreted this ECG as follows: Interpretation: EKG from 28 of December- Appears to be somewhat regular with left anterior fascicular and right bundle-branch block; could still be atrial fibrillation; In today's telemetry, suspect atrial fibrillation and there are frequent PVCs in a bigeminal pattern. in the prior EKG from 12/14/2020, underlying rhythm was atrial fibrillation with frequent PVCs and bifascicular block and the rate was 75/Min. Imaging Radiologist's impression: Impressions Chest X-Ray 12/28/20 19:55 IMPRESSION: Unremarkable chest examination. No change from 12/14/2020. Chest CTA 12/28/20 21:53 IMPRESSION: 1. No evidence of acute pulmonary embolism. 2. Reflux of contrast into the IVC suggesting possible elevated right heart pressure. 3. No splenomegaly, partially imaged. 4. Stable oval lesion adjacent to the esophagus, remaining indeterminate but not significantly changed since 2019. 5. Coronary artery calcifications. VTE: negative Head CT 12/28/20 21:54 IMPRESSION: No acute intracranial process seen. Assessment and Plan (1) Acute diastolic (congestive) heart failure: Status: Acute (2) PAF (paroxysmal atrial fibrillation): Status: Acute (3) PVC (premature ventricular contraction): Status: Acute (4) Bifascicular block: Status: Acute (5) Supratherapeutic INR: Status: Acute (6) Thrombocytopenia: Status: Acute Laboratory and imaging studies were reviewed. Hemoglobin 11.7. Platelet count 34,000. INR is 5.4. Creatinine is 1.09. Blood sugars are elevated. Liver enzymes are also elevated but that was also seen last admission. Cardiac BNP is 262 which is higher than last month. High sensitivity troponins are 122 followed by 144. On the of December it was 27. In the last admission from November, it was 55 and 61. Echocardiogram from last month shows LVEF of 50-55%, mild LVH, mild left atrial dilatation. Overall, he might be in acute diastolic heart failure and that could be from atrial fibrillation itself. We could continue his IV Lasix and diuresed him aggressively. Otherwise he does have a lot of PVCs and that may also contribute to his heart failure and hence we can resume a small dose of beta-jas and see how bradycardic he really gets. This was apparently held last time due to the bradycardia but the EKG then also shows lot of PVCs and hence not clear if there is any miscalculation of heart rate. Hold anticoagulation due to supratherapeutic INR as well as diminished platelet count. Will follow with you and plan further care.
--- NOTE | 2020-12-29 12:30 | MHC.CM.PN ---
PT REPORTS HE LIVES AT HOME WITH HIS AND HE IS INDEPENDENT WITH CARE. PT USES A CANE TO AMBULATE. PT REPORTS HIS PCP IS CHANTAL SCOTT AND SAYS HE HAS A HCP COMPLETED. COPY REQUESTED. PT REPORTS HE IS ACTIVE WITH [facility] WAS REVIEWED AND PT INDICATED UNDERSTANDING. COPY PROVIDED. CURRENT DC PLAN IS HOME WITH RESUMPTION OF [facility] WILL TRANSPORT
--- NOTE | 2020-12-29 12:52 | HO.PM.IMPN ---
Subjective Subjective Date of Service: 12/30/20 Interval History: the patient was seen and evaluated this morning Laying in bed, feels tired and short of breath, questioning the need of recurrent admissions and repeating the same blood work and images Denies any fever, chills or Chest pain who No reported other overnight events. Systemic review: No fever, chills but has generalized weakness No chest pain, palpitation reporting dyspnea on exertion and shortness of breath or coughing No abdominal pain, nausea or vomiting No urinary symptoms No any rash or wounds but multiple bruises and lower extremities swelling Physical Exam Vital Signs: Vital Signs: Last Vital Signs Temp 97.0 F 12/29/20 11:35 Pulse 84 12/29/20 11:51 Resp 16 12/29/20 11:35 BP 114/58 L 12/29/20 11:51 Pulse Ox 98 12/29/20 11:43 Oxygen Flow Rate 2 12/28/20 19:42 Body Mass Index 32.1 Const: Other: Constitutional : Alert, oriented, not in distress Neck : Normal inspection, Supple Cardiovascular : RRR, S1 S2, +2 lower extremity edema Respiratory : Good bilateral air entry, basal crackles, wheezes or rhonchi Gastrointestinal: soft, lax, Normal bowel sounds, Non tender Skin : Warm/Dry, bruises Neurological : Alert & oriented x3, No focal deficit Objective Data Current Medications Generic Name Dose Route Start Last Admin Trade Name Freq PRN Reason Stop Dose Admin Acetaminophen 650 mg 12/29/20 01:42 Acetaminophen 325 Mg Tablet PO Q6H PRN Pain, Mild (Pain Scale 1-3) Albuterol/Ipratropium 3 ml 12/29/20 06:00 12/29/20 11:04 Albuterol/Iprat 2.5/0.5mg 3 Ml Ampul.Neb INHALE 3 ml RQ6H LESA Administration Atorvastatin Calcium 40 mg 12/29/20 21:00 Atorvastatin Calcium 40 Mg Tablet PO BEDTIME LESA Docusate Sodium 100 mg 12/29/20 01:42 Docusate Sodium 100 Mg Capsule PO DAILY PRN Constipation Fluticasone Propionate 2 spray 12/29/20 09:00 12/29/20 07:56 Fluticasone Propionate Nasal 16 Gm [place] NOSTRIL-B 2 spray DAILY LESA Administration Furosemide 40 mg 12/29/20 02:00 12/29/20 02:51 Furosemide 40 Mg/4 Ml Vial IVPUSH 40 mg Q12H LESA Administration Protocol Insulin Human Lispro 0 unit 12/29/20 11:30 12/29/20 11:50 Insulin Lispro 100 Unit/Ml 3 Ml Vial SUBCUT 10 unit QIDACHS [facility] Administration Protocol Losartan Potassium 25 mg 12/29/20 09:00 12/29/20 07:55 Losartan Potassium 25 Mg Tablet PO 25 mg DAILY LESA Administration Protocol Metoprolol Tartrate 12.5 mg 12/29/20 11:35 12/29/20 11:51 Metoprolol Tartrate 12.5 Mg Halftab PO 12.5 mg BID LESA Administration Protocol Mirabegron 25 mg 12/29/20 09:00 12/29/20 07:55 Mirabegron 25 Mg Tab.Er.24h PO 25 mg DAILY LESA Administration Multivitamins/Vitamin C 1 tab 12/29/20 09:00 12/29/20 07:55 Multivitamin Tablet PO 1 tab DAILY LESA Administration Ondansetron HCl 4 mg 12/29/20 01:42 Ondansetron Hcl 4 Mg/2 Ml Vial IVPUSH Q8H PRN Nausea and Vomiting Oxycodone HCl 5 mg 12/29/20 08:26 12/29/20 08:55 Oxycodone Hcl Immed Release 5 Mg Tablet PO 5 mg Q6H PRN Administration Pain, Severe (Pain Scale 7-10) Prednisone 20 mg 12/29/20 09:00 12/29/20 08:56 Prednisone 20 Mg Tablet PO 20 mg DAILY LESA Administration Pregabalin 150 mg 12/29/20 09:00 12/29/20 07:55 Pregabalin 150 Mg Capsule PO 150 mg TID LESA Administration Sodium Chloride 3 ml 12/29/20 01:42 12/29/20 07:55 0.9 % Sodium Chloride Flush 3 Ml Syringe IVFLUSH 3 ml QSHIFT [facility] Administration Labs CBC & Chem 7: 12/30/20 05:59 12/30/20 05:59 Assessment and Plan (1) CHF exacerbation: Status: Acute (2) Atrial fibrillation: Status: Acute (3) Supratherapeutic INR: Status: Acute (4) Fever of unknown origin: Status: Acute Assessment and Plan: This is an 85-year-old male with past medical history of AFib, CAD who presents to the hospital with lower extremity edema as well as dyspnea found to have CHF acute CHF exacerbation elevated BNP, lower extremity edema, dyspnea has an echo done in November that showed an ejection fraction of 50-55%, Continue Lasix 40 IV b.i.d. strict I&O, daily weight, low-sodium diet cardiology input appreciated fever UA negative, chest CT does not show any infiltrate, no apparent soft tissue infection, no leukocytosis received antibiotics in the ED at this time will keep of antibiotics, follow cultures, if patient has repeat fever, will start antibiotic Thrombocytopenia PLT low at 44 on admission related to supratherapeutic INR INR 5.4 with no active bleed will hold Coumadin PT INR daily atrial fib supratherapeutic INR to start low dose metoprolol 12.5 bid per cardiology will continue Coumadin once INR below 3 Hyperglycemia diabetes Pt had hypoglyceimia in ED started Lantus will place on low-dose sliding scale insulin diabetic diet hypertension stable continue losartan DVT prophylaxis: Coumadin
[2020-12-29 16:30] LABS: Glucose, Whole Blood 370 mg/dL (60-115)
--- NOTE | 2020-12-29 18:19 | PC.NURSE ---
Patient's POC at lunch 372 and POC at dinner 370; SSI coverage only per hospitalist. Patient amb in the hallway x 150 feet with walker and OOB to recliner for majority of the day. Patient frustrated using urinal because he is unable to control where the urine goes and has sudden urgency. Bedside commode in place, encouraged to use call pal when need to urinate arises so staff can help patient stand up. Patient verbalizes understanding and reports relief when urinating while standing up.
[2020-12-29 20:42] LABS: Glucose, Whole Blood 398 mg/dL (60-115)
[2020-12-29] MEDS: Atorvastatin Calcium 40 MG TABLET PO (21:34)
[2020-12-30] VITALS (22 sets, daily range): BP systolic 66–158; BP diastolic 31–90; PULSE 51–103; RESP 12–20; TEMP 36.4–37.9; O2SAT 92–98; BMI 31.4
[2020-12-30] MEDS: 0.9 % Sodium Chloride Flush 3 ML SYRINGE IVFLUSH ×4 (00:26→20:52)
[2020-12-30] MEDS: Furosemide 40 MG/4 ML VIAL IVPUSH ×2 (01:26→15:43)
[2020-12-30] MEDS: Albuterol/Iprat 2.5/0.5MG 3 ML AMPUL.NEB INHALE (05:35)
[2020-12-30] MEDS: Acetaminophen 325 MG TABLET 650 MG PO (06:02)
[2020-12-30 07:21] LABS: Hematocrit 37.4 % (42-52); Mean Corpuscular HGB Conc 34.8 g/dl (31.0-36.0); Mean Corpuscular Hemoglobin 32.3 pg (27.0-33.0); Red Blood Count 4.02 X10*6/uL (4.60-5.80); White Blood Count 3.4 X10*3/uL (4.8-10.8)
[2020-12-30 07:23] LABS: Platelet Count 38 X10*3/uL (160-400)
[2020-12-30 07:40] LABS: Glucose, Whole Blood 182 mg/dL (60-115)
[2020-12-30 07:46] LABS: Anion Gap 11 (12-20); Blood Urea Nitrogen 38 mg/dL (9-16); Calcium 8.1 mg/dL (8.4-10.2); Carbon Dioxide 29 mmol/L (22-29); Chloride 98 mmol/L (96-108); Creatinine Clr Calc Pharmacy 46.7; Estimated Glomerular Filt Rate 53; Glucose Random 187 mg/dL (60-115); Potassium 3.7 mmol/L (3.3-5.1); Sodium 134 mmol/L (135-145)
[2020-12-30] MEDS: Insulin Glargine,Hum.rec.anlog 100 UNIT/ML 10 ML VIAL 60 UNIT SUBCUT (07:51)
[2020-12-30] MEDS: Losartan Potassium 25 MG TABLET PO (07:52)
[2020-12-30] MEDS: Metoprolol Tartrate 12.5 MG HALFTAB PO (07:52)
[2020-12-30] MEDS: Insulin Lispro 100 UNIT/ML 3 ML VIAL SUBCUT ×4 (07:52→21:07)
[2020-12-30] MEDS: Mirabegron 25 MG TAB.ER.24H PO (07:52)
[2020-12-30] MEDS: predniSONE 20 MG TABLET PO (07:52)
[2020-12-30] MEDS: Pregabalin 150 MG CAPSULE PO ×3 (07:52→20:51)
[2020-12-30] MEDS: Multivitamin TABLET 1 TAB PO (07:52)
[2020-12-30] MEDS: Fluticasone Propionate Nasal 16 GM SPRAY 2 SPRAY NOSTRIL-B (07:53)
--- NOTE | 2020-12-30 09:40 | ECG_ITS ---
Test Reason : RHYTHM CHECK Blood Pressure : / mmHG Vent. Rate : 068 BPM Atrial Rate : 068 BPM P-R Int : 000 ms QRS Dur : 160 ms QT Int : 470 ms P-R-T Axes : 000 -66 -48 degrees QTc Int : 500 ms Atrial fibrillation with slow ventricular response and PVCs in bigeminy pattern, Bifascicular block T wave abnormality, consider inferior ischemia Abnormal ECG When compared with ECG of 28-DEC-2020 20:59, T wave inversion more evident in Inferior leads QT has lengthened Referred By: Krystle Mckeon Electronically Signed By:Peter Viera
--- NOTE | 2020-12-30 09:42 | ECG_ITS ---
Test Reason : RHYTHM CHECK Blood Pressure : / mmHG Vent. Rate : 072 BPM Atrial Rate : 072 BPM P-R Int : 000 ms QRS Dur : 166 ms QT Int : 470 ms P-R-T Axes : 000 -65 -56 degrees QTc Int : 515 ms Atrial fibrillation wit slow ventricular response and PVCs in bigeminy pattern Right bundle branch block Left anterior fascicular block Bifascicular block T wave abnormality, consider inferior ischemia Abnormal ECG When compared with ECG of 30-DEC-2020 09:40, No significant changes seen Referred By: Krystle Mckeon Electronically Signed By:Peter Viera
--- NOTE | 2020-12-30 09:45 | P.PNIM_ITS ---
Subjective Subjective Date of Service: 12/30/20 Interval History: The patient was seen and evaluated this morning Noticed to be clammy and lethargic at time of interview this morning. Check blood pressure statin to be 60/30. [place] position and a bolus of fluid was given. Rapid response call was done. Received a dose of glucagon as unit educator evaluated the patient and decided to transfer to ICU. Noticed to have bigeminy he is on telemetry Physical Exam Vital Signs: Vital Signs: Last Vital Signs Temp 97.6 F 12/30/20 08:00 Pulse 83 12/30/20 08:00 Resp 20 12/30/20 08:00 BP 90/49 L 12/30/20 08:00 Pulse Ox 92 12/30/20 08:00 Oxygen Flow Rate 2 12/28/20 19:42 Body Mass Index 31.4 Const: Other: Constitutional : Alert with stimulation, oriented, clammy, lethargic Neck : Normal inspection, Supple Cardiovascular : Irregular heart rhythm , S1 S2, +2 lower extremity edema Respiratory : Decreased bilateral air entry, basal fine crackles, wheezes or rhonchi Gastrointestinal: soft, lax, Normal bowel sounds, Non tender Skin : Warm/Dry, No rash Neurological : Alert & oriented x3, No focal deficit Objective Data Current Medications Generic Name Dose Route Start Last Admin Trade Name Darriusq PRN Reason Stop Dose Admin Acetaminophen 650 mg 12/29/20 01:42 12/30/20 06:02 Acetaminophen 325 Mg Tablet PO 650 mg Q6H PRN Administration Pain, Mild (Pain Scale 1-3) Albuterol/Ipratropium 3 ml 12/29/20 06:00 12/30/20 05:35 Albuterol/Iprat 2.5/0.5mg 3 Ml Ampul.Neb INHALE 3 ml RQ6H LESA Administration Atorvastatin Calcium 40 mg 12/29/20 21:00 12/29/20 21:34 Atorvastatin Calcium 40 Mg Tablet PO 40 mg BEDTIME LESA Administration Docusate Sodium 100 mg 12/29/20 01:42 Docusate Sodium 100 Mg Capsule PO DAILY PRN Constipation Fluticasone Propionate 2 spray 12/29/20 09:00 12/30/20 07:53 Fluticasone Propionate Nasal 16 Gm [place] NOSTRIL-B 2 spray DAILY LESA Administration Furosemide 40 mg 12/29/20 02:00 12/30/20 01:26 Furosemide 40 Mg/4 Ml Vial IVPUSH 40 mg Q12H REPLACED BY [facility] Administration Protocol Insulin Glargine 70 unit 12/30/20 09:00 12/30/20 08:58 Insulin Glargine,Hum.Rec.Anlog 100 Unit/Ml 10 Ml Vial SUBCUT Not Given DAILY REPLACED BY [facility] Insulin Human Lispro 0 unit 12/29/20 11:30 12/30/20 07:52 Insulin Lispro 100 Unit/Ml 3 Ml Vial SUBCUT 2 unit QIDACHS REPLACED BY [facility] Administration Protocol Metoprolol Tartrate 12.5 mg 12/29/20 11:35 12/30/20 07:52 Metoprolol Tartrate 12.5 Mg Halftab PO 12.5 mg BID REPLACED BY [facility] Administration Protocol Mirabegron 25 mg 12/29/20 09:00 12/30/20 07:52 Mirabegron 25 Mg Tab.Er.24h PO 25 mg DAILY REPLACED BY [facility] Administration Multivitamins/Vitamin C 1 tab 12/29/20 09:00 12/30/20 07:52 Multivitamin Tablet PO 1 tab DAILY REPLACED BY [facility] Administration Ondansetron HCl 4 mg 12/29/20 01:42 Ondansetron Hcl 4 Mg/2 Ml Vial IVPUSH Q8H PRN Nausea and Vomiting Oxycodone HCl 5 mg 12/29/20 08:26 12/29/20 21:18 Oxycodone Hcl Immed Release 5 Mg Tablet PO 5 mg Q6H PRN Administration Pain, Severe (Pain Scale 7-10) Prednisone 20 mg 12/29/20 09:00 12/30/20 07:52 Prednisone 20 Mg Tablet PO 20 mg DAILY REPLACED BY [facility] Administration Pregabalin 150 mg 12/29/20 09:00 12/30/20 07:52 Pregabalin 150 Mg Capsule PO 150 mg TID REPLACED BY [facility] Administration Sodium Chloride 3 ml 12/29/20 01:42 12/30/20 07:53 0.9 % Sodium Chloride Flush 3 Ml Syringe IVFLUSH 3 ml QSHIFT REPLACED BY [facility] Administration Labs CBC & Chem 7: 12/30/20 05:59 12/30/20 05:59 Microbiology Microbiology Results: Microbiology 12/28/20 20:55 Blood - Venous Blood Culture - Preliminary No growth after 24 hours. 12/28/20 20:44 Blood - Venous Blood Culture - Preliminary No growth after 24 hours. Assessment and Plan (1) CHF exacerbation: Status: Acute (2) Atrial fibrillation: Status: Acute (3) Supratherapeutic INR: Status: Acute (4) Fever of unknown origin: Status: Acute Assessment and Plan: This is an 85-year-old male with past medical history of AFib, CAD who presents to the hospital with lower extremity edema as well as dyspnea found to have CHF Hypotension Seems to be secondary to medications, in irregular heart rhythm Blood pressure dropped to 60s over 30s Given glucagon Bolus of fluid Transferred to ICU for close monitoring and possible need of pressors acute CHF exacerbation has an echo done in November that showed an ejection fraction of 50-55%, Continue Lasix IV strict I&O, daily weight, low-sodium diet cardiology input appreciated fever Was febrile once in the emergency and never after that Patient has leukopenia at baseline UA negative, chest CT does not show any infiltrate, no apparent soft tissue infection Has 45% band Antibiotics on hold Blood cultures negative after 48 hours Thrombocytopenia PLT low at 44 on admission , dropped down to 33 related to warfarin usage, possible infection? supratherapeutic INR INR for with no active bleed will hold Coumadin PT INR daily atrial fib Started on low dose metoprolol 12.5 bid per cardiology Hold metoprolol for low blood pressure and abnormal rhythm Hyperglycemia diabetes Pt had hypoglyceimia in ED Increase Lantus will place on low-dose sliding scale insulin diabetic diet hypertension stable continue losartan DVT prophylaxis: Coumadin
[2020-12-30 10:05] LABS: Glucose, Whole Blood 385 mg/dL (60-115)
--- NOTE | 2020-12-30 10:17 | PC.NURSE ---
Rapid response at 0930 for BP 64/33, 1L bolus started, 0.5 mg glucagon given, EKG completed. Care transitioned to ICU for closer management at this time. Family aware.
[2020-12-30] MEDS: Lidocaine HCl 2 % MPF 5 ML VIAL 2 ML INFILTRATI (11:00)
[2020-12-30 12:01] LABS: Glucose, Whole Blood 357 mg/dL (60-115)
--- NOTE | 2020-12-30 13:05 | P.PNCA_ITS ---
Subjective Subjective Date of Service: 12/30/20 Interval history: Today morning he developed low blood pressure, clammy lethargic and hence transferred to the ICU. He received temporary pacemaker. Review of Systems Review of Systems Yes all other systems are reviewed and are negative Constitutional: Reports weakness Cardiovascular: Reports as per HPI, Reports no additional cardiovascular complaints, Denies acrocyanosis, Denies cool extremities, Denies painful fingertips, Denies chest pain, Denies chest pain at rest, Denies diaphoresis, Reports syncope, Reports irregular heart rhythm, Denies claudication, Reports leg edema, Denies lightheadedness, Denies palpitations and Reports dyspnea Respiratory: Reports dyspnea Reports syncope, Reports tremor(s) and Reports weakness Endocrine: Denies palpitations Physical Exam Vital Signs: Last Vital Signs Temp 97.6 F 12/30/20 08:00 Pulse 83 12/30/20 12:00 Resp 14 12/30/20 12:00 BP 83/41 L 12/30/20 12:00 Pulse Ox 93 12/30/20 12:00 Oxygen Flow Rate 2 12/28/20 19:42 Body Mass Index 31.4 Const General: cooperative, comfortable and no acute distress Orientation/consciousness: patient oriented x3 HENIA Other: Unremarkable Neck Neck: Yes normal visual inspection Chest Chest palpation & inspection: normal inspection of the chest Resp Auscultation: clear to auscultation bilaterally, no crackles and no wheezes Cardio Jugular venous distension: no JVD Palpation: normal PMI Heart sounds: S1 normal heart sound present, S2 normal heart sound present, no gallops, no murmurs and no rubs GI Palpation (GI): Soft to palpation Back/Spine/Pelvis Other: unremarkable Skin General skin exam: no rashes or lesions noted Neuro General: patient oriented x3 Extrem General: Yes edema (2+) Psych Mental Status: mental status grossly normal Results Labs and Meds Result diagrams: 12/30/20 05:59 12/30/20 05:59 Lab results: Laboratory Results - last 24 hr 12/29/20 12/29/20 12/30/20 16:27 20:32 05:59 WBC 3.4 L RBC 4.02 L Hgb 13.0 L Hct 37.4 L MCV 93.0 MCH 32.3 MCHC 34.8 RDW 15.0 Plt Count 38 L MPV Not Reportable Absolute Nucleated RBC 0.000 Nucleated RBC % (auto) 0.0 PT INR Sodium Potassium Chloride Carbon Dioxide Anion Gap BUN Creatinine Estim Creat Clear Calc Estimated GFR POC Glucose 370 H* 398 H* Random Glucose Calcium 12/30/20 12/30/20 12/30/20 05:59 07:37 09:21 WBC RBC Hgb Hct MCV MCH MCHC RDW Plt Count MPV Absolute Nucleated RBC Nucleated RBC % (auto) PT 48.0 H D INR 4.0 H Sodium 134 L Potassium 3.7 Chloride 98 Carbon Dioxide 29 Anion Gap 11 L BUN 38 H Creatinine 1.29 Estim Creat Clear Calc 46.7 Estimated GFR 53 POC Glucose 182 H Random Glucose 187 H Calcium 8.1 L 12/30/20 12/30/20 09:59 11:57 WBC RBC Hgb Hct MCV MCH MCHC RDW Plt Count MPV Absolute Nucleated RBC Nucleated RBC % (auto) PT INR Sodium Potassium Chloride Carbon Dioxide Anion Gap BUN Creatinine Estim Creat Clear Calc Estimated GFR POC Glucose 385 H* 357 H* Random Glucose Calcium Imaging Radiologist's impression: Impressions Chest X-Ray 12/30/20 11:20 IMPRESSION: Mild cardiomegaly otherwise unremarkable chest exam. There is right central venous catheter tip at the atriocaval junction. Progress Note: A&P Assessment and plan (1) Acute diastolic (congestive) heart failure: Status: Acute (2) PVC (premature ventricular contraction): Status: Acute (3) Persistent atrial fibrillation: Status: Acute (4) Bifascicular block: Status: Acute (5) Supratherapeutic INR: Status: Acute (6) Thrombocytopenia: Status: Acute Assessment and Plan: Laboratory and imaging studies were reviewed. Hemoglobin 11.7. Platelet count 34,000. INR is 5.4. Creatinine is 1.09. Blood sugars are elevated. Liver enzymes are also elevated but that was also seen last admission. Cardiac BNP is 262 which is higher than last month. High sensitivity troponins are 122 followe d by 144. On the 23 of December it was 27. In the last admission from November, it was 55 and 61. Echocardiogram from last month shows LVEF of 50-55%, mild LVH, mild left atrial dilatation. Overall, he might be in acute diastolic heart failure and that could be from atrial fibrillation itself. He also has frequent premature ventricular contractions and that may be playing a significant role as well. Currently, he is status post temporary transvenous pacer implantation but not pacing at this time. Possibly loss of contact as the patient is sitting to eat. We could try to see if pacing could suppress the PVC burden and if the blood pressure also improves. If that were the case, then a permanent pacemaker might be of help. However, he also has a very low platelet count and that will be an issue. Diuretics as tolerated by blood pressure. Hold off further beta- blockers at this time. With regard to leg weakness, also consider any myelopathy and hence spinal imaging as appropriate. Discussed at length with the family at the bedside including 3 children and also talk to the over the phone. All questions were answered to their satisfaction. Fall Risk Details Current Medications: Current Medications Generic Name Dose Route Start Last Admin Trade Name Freq PRN Reason Stop Dose Admin Acetaminophen 650 mg 12/29/20 01:42 12/30/20 06:02 Acetaminophen 325 Mg Tablet PO 650 mg Q6H PRN Administration Pain, Mild (Pain Scale 1-3) Albuterol/Ipratropium 3 ml 12/29/20 06:00 12/30/20 11:19 Albuterol/Iprat 2.5/0.5mg 3 Ml Ampul.Neb INHALE Not Given RQ6H LESA Atorvastatin Calcium 40 mg 12/29/20 21:00 12/29/20 21:34 Atorvastatin Calcium 40 Mg Tablet PO 40 mg BEDTIME LESA Administration Docusate Sodium 100 mg 12/29/20 01:42 Docusate Sodium 100 Mg Capsule PO DAILY PRN Constipation Fluticasone Propionate 2 spray 12/29/20 09:00 12/30/20 07:53 Fluticasone Propionate Nasal 16 Gm [place] NOSTRIL-B 2 spray DAILY LESA Administration Furosemide 40 mg 12/29/20 02:00 12/30/20 01:26 Furosemide 40 Mg/4 Ml Vial IVPUSH 40 mg Q12H LESA Administration Protocol Insulin Glargine 70 unit 12/30/20 09:00 12/30/20 08:58 Insulin Glargine,Hum.Rec.Anlog 100 Unit/Ml 10 Ml Vial SUBCUT Not Given DAILY LESA Insulin Human Lispro 0 unit 12/29/20 11:30 12/30/20 12:12 Insulin Lispro 100 Unit/Ml 3 Ml Vial SUBCUT 10 unit QIDACHS LESA Administration Protocol Metoprolol Tartrate 12.5 mg 12/29/20 11:35 12/30/20 07:52 Metoprolol Tartrate 12.5 Mg Halftab PO 12.5 mg BID LESA Administration Protocol Mirabegron 25 mg 12/29/20 09:00 12/30/20 07:52 Mirabegron 25 Mg Tab.Er.24h PO 25 mg DAILY LESA Administration Multivitamins/Vitamin C 1 tab 12/29/20 09:00 12/30/20 07:52 Multivitamin Tablet PO 1 tab DAILY LESA Administration Ondansetron HCl 4 mg 12/29/20 01:42 Ondansetron Hcl 4 Mg/2 Ml Vial IVPUSH Q8H PRN Nausea and Vomiting Oxycodone HCl 5 mg 12/29/20 08:26 12/29/20 21:18 Oxycodone Hcl Immed Release 5 Mg Tablet PO 5 mg Q6H PRN Administration Pain, Severe (Pain Scale 7-10) Prednisone 20 mg 12/29/20 09:00 12/30/20 07:52 Prednisone 20 Mg Tablet PO 20 mg DAILY LESA Administration Pregabalin 150 mg 12/29/20 09:00 12/30/20 07:52 Pregabalin 150 Mg Capsule PO 150 mg TID LESA Administration Sodium Chloride 3 ml 12/29/20 01:42 12/30/20 07:53 0.9 % Sodium Chloride Flush 3 Ml Syringe IVFLUSH 3 ml QSHIFT LESA Administration Time Spent With Patient Time: Total time spent is greater than 50% in coordination of care (as documented) at patient's floor/unit and/or counseling patient: Time with patient: 25 - 35 minutes
[2020-12-30] MEDS: Phenylephrine HCL 20 MG in 0.9 % Sodium Chloride 250 ML 206.62 MG IVCONT (13:30)
--- NOTE | 2020-12-30 15:55 | P.PCNCC_ITS ---
Procedures Abscess I/D Consent for Procedure: Emergent-no informed consent obtained Site: neck Side (if applicable): right Sedation/analgesia: none Anesthetic used: lidocaine 1% Procedure Note Procedure Note: Emergent placement of central line catheter along with temporary pacing wire Indication for symptomatic bradycardia in the face of ventricular bigeminy with effective heart rate of 30 After sterile preparation and draping utilizing the right internal jugular vein a gained easy entry under ultrasound guidance passing retrograde with Seldinger technique J tipped guidewire over which a 6 and half Guatemalan introducer with side-arm and then through that a 6 [place] balloon tipped pacing wire was then placed using fluoroscopic guidance into the apex of the right ventricle with 100% capture and rate set at 100 which [address] excellent over Dr[address] elimination of the premature beats and a heart rate of 100 with marked improvement of symptoms and resolution of hypotension Chest x-ray showed no evidence of pneumothorax no complication
--- NOTE | 2020-12-30 16:13 | P.CONCC_ITS ---
History of Present Illness Data of Consult Service Date: 12/30/20 Requesting physician: Santosh Mayes Primary Care Provider: Unknown Physician HPI Reason for consult: Rapid response for near-syncope with palpable heart rate of 30 and blood pr Rapid response for near-syncope with hypotension and blood pressures of 60 and palpable pulse of 30 Patient with background sick sinus syndrome with underlying hypertension and hypertensive myocardial disease who approximately 2 weeks ago developed atrial fibrillation placed on Coumadin with supratherapeutic numbers of about the 4-5 for an INR and was noted on the monitor to be in ventricular bigeminy with an effective heart rate of 30 patient was urgently brought down to the the ICU because of hypotension and via the right internal jugular vein I urgently placed a temporary pacing wire to the right ventricular apex pacing initially at a rate of 80 effectively over driving the ventricular bigeminy and alleviating symptoms and pressure came up to 119 systolic pressure and the patient did very well from that point forward Review of Systems Review of Systems: Yes all other systems are reviewed and are negative [facility] Past Medical History Medical History (Updated 12/30/20 @ 16:17 by Krystle Mckeon MD) Atrial fibrillation Bifascicular block CAD (coronary artery disease) Diabetes HLD (hyperlipidemia) HTN (hypertension) Myocardial infarct, old Pancytopenia Prostate CA Social History Social History Household Members: Spouse Housing: House Do you presently have visiting nurse or other home services: Yes (vna qd to check inr/ call md for adjustment of coumadin) Alcohol intake: never Smoking Status: Never smoker Use of substances other than those prescribed or required for medical reasons: No Currently Displaying Signs/Symptoms of Drug Intoxication Withdrawal: No Have you been hit, kicked, punched, or otherwise hurt by someone within the past year? 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 1995 Advance Directives: No Advance Directives Information Provided: Yes ( Mckenzie - HCP) Do you have thoughts of harming others: None Do you have a plan to hurt others: No Plan Recently lost weight without trying: Unsure Poor oral hygiene: No Current occupational status: retired Meds Allergies Allergy/AdvReac Type Severity Reaction Status Date / Time No Known Allergies Allergy Mild N/A Verified 12/28/20 19:51 Active Medications: Current Medications Generic Name Dose Route Start Last Admin Trade Name Freq PRN Reason Stop Dose Admin Acetaminophen 650 mg 12/29/20 01:42 12/30/20 06:02 Acetaminophen 325 Mg Tablet PO 650 mg Q6H PRN Administration Pain, Mild (Pain Scale 1-3) Albuterol/Ipratropium 3 ml 12/29/20 06:00 12/30/20 15:42 Albuterol/Iprat 2.5/0.5mg 3 Ml Ampul.Neb INHALE Not Given RQ6H LESA Atorvastatin Calcium 40 mg 12/29/20 21:00 12/29/20 21:34 Atorvastatin Calcium 40 Mg Tablet PO 40 mg BEDTIME LESA Administration Docusate Sodium 100 mg 12/29/20 01:42 Docusate Sodium 100 Mg Capsule PO DAILY PRN Constipation Fluticasone Propionate 2 spray 12/29/20 09:00 12/30/20 07:53 Fluticasone Propionate Nasal 16 Gm [place] NOSTRIL-B 2 spray DAILY LESA Administration Furosemide 40 mg 12/29/20 02:00 12/30/20 15:43 Furosemide 40 Mg/4 Ml Vial IVPUSH 40 mg Q12H LESA Administration Protocol Phenylephrine HCl 20 mg/ 252 mls @ 0 mls/hr 12/30/20 13:30 12/30/20 13:55 Sodium Chloride IVCONT 0.5 mcg/kg/min .Q0M LESA 34.44 mls/hr Titration Protocol Per Protocol Insulin Glargine 70 unit 12/30/20 09:00 12/30/20 08:58 Insulin Glargine,Hum.Rec.Anlog 100 Unit/Ml 10 Ml Vial SUBCUT Not Given DAILY [facility] Insulin Human Lispro 0 unit 12/29/20 11:30 12/30/20 12:12 Insulin Lispro 100 Unit/Ml 3 Ml Vial SUBCUT 10 unit QIDACHS LESA Administration Protocol Lidocaine HCl 2 ml 12/30/20 16:15 Lidocaine Hcl 1 % Mpf 2 Ml Ampul INFILTRATI 12/30/20 16:16 ONCE ONE Mirabegron 25 mg 12/29/20 09:00 12/30/20 07:52 Mirabegron 25 Mg Tab.Er.24h PO 25 mg DAILY LESA Administration Multivitamins/Vitamin C 1 tab 12/29/20 09:00 12/30/20 07:52 Multivitamin Tablet PO 1 tab DAILY LESA Administration Ondansetron HCl 4 mg 12/29/20 01:42 Ondansetron Hcl 4 Mg/2 Ml Vial IVPUSH Q8H PRN Nausea and Vomiting Oxycodone HCl 5 mg 12/29/20 08:26 12/29/20 21:18 Oxycodone Hcl Immed Release 5 Mg Tablet PO 5 mg Q6H PRN Administration Pain, Severe (Pain Scale 7-10) Prednisone 20 mg 12/29/20 09:00 12/30/20 07:52 Prednisone 20 Mg Tablet PO 20 mg DAILY LESA Administration Pregabalin 150 mg 12/29/20 09:00 12/30/20 15:43 Pregabalin 150 Mg Capsule PO 150 mg TID LESA Administration Sodium Chloride 3 ml 12/29/20 01:42 12/30/20 15:43 0.9 % Sodium Chloride Flush 3 Ml Syringe IVFLUSH 3 ml QSHIFT LESA Administration Home Medications Medication Instructions Recorded Confirmed Last Taken Type Combivent Respimat 1 puff INHALATION QID 12/14/20 12/29/20 Unknown History Myrbetriq 1 tab PO DAILY 12/14/20 12/29/20 Unknown History Tresiba FlexTouch U-100 88 unit SUBCUT DAILY 12/14/20 12/29/20 Unknown History atorvastatin 1 tab PO BEDTIME 12/14/20 12/29/20 12/13/20 History cholecalciferol (vitamin D3) 1 cap PO DAILY 12/14/20 12/29/20 12/14/20 History fluticasone propionate 2 spray INTRANASAL DAILY 12/14/20 12/29/20 Unknown History insulin aspart U-100 [Novolog 1 sliding scale dose SUBCUT 12/14/20 12/29/20 Unknown History U-100 Insulin aspart] USEASDIRECTD losartan 1 tab PO DAILY 12/14/20 12/29/20 Unknown History multivitamin 1 tab PO DAILY 12/14/20 12/29/20 Unknown History pregabalin 1 cap PO TID 12/28/20 12/29/20 Unknown History warfarin 4 mg PO DAILY@1700 12/28/20 12/29/20 Unknown History Physical Exam Vital Signs: Vital Signs: Last Vital Signs Temp 97.6 F 12/30/20 08:00 Pulse 101 H 12/30/20 16:00 Resp 16 12/30/20 16:00 BP 101/51 L 12/30/20 16:00 Pulse Ox 97 12/30/20 16:00 Oxygen Flow Rate 2 12/28/20 19:42 Body Mass Index 31.4 Results Labs CBC & Chem 7: 12/30/20 05:59 12/30/20 05:59 Labs: Short CBC 12/30/20 Range/Units 05:59 WBC 3.4 L (4.8-10.8) X10*3/uL Hgb 13.0 L (14.0-18.0) g/dl Hct 37.4 L (42-52) % Plt Count 38 L (160-400) X10*3/uL BMP 12/30/20 05:59 Sodium 134 L Potassium 3.7 Chloride 98 Carbon Dioxide 29 BUN 38 H Creatinine 1.29 Calcium 8.1 L Microbiology Microbiology Results: Microbiology 12/28/20 20:55 Blood - Venous Blood Culture - Preliminary No growth after 24 hours. 12/28/20 20:44 Blood - Venous Blood Culture - Preliminary No growth after 24 hours. Assessment and Plan (1) Thrombocytopenia: Status: Acute (2) Ventricular bigeminy: Status: Acute (3) PVC (premature ventricular contraction): Status: Acute (4) PAF (paroxysmal atrial fibrillation): Status: Acute (5) Acute diastolic (congestive) heart failure: Status: Acute (6) CHF exacerbation: Status: Acute (7) Supratherapeutic INR: Status: Acute (8) Bifascicular block: Status: Acute (9) Fever of unknown origin: Status: Acute (10) Leukopenia: Status: Acute (11) Symptomatic bradycardia: Status: Acute At this point Coumadin will be held until INR is at 2 or below and now knowing that the overdrive pacing works to alleviate symptoms he would then have a permanent dual-chamber pacemaker placed with a blind atrial lead and then reestablished Coumadin anticoagulation for 1 more week and then we could address potential cardioversion for the back to normal sinus rhythm and we can also con alteration tailor anti rhythmic medication because he will have a stable basic heart rate
[2020-12-30 16:35] LABS: Glucose, Whole Blood 455 mg/dL (60-115)
[2020-12-30] MEDS: Insulin Glargine,Hum.rec.anlog 100 UNIT/ML 10 ML VIAL 15 UNIT SUBCUT (17:11)
[2020-12-30] MEDS: Phenylephrine HCL 20 MG in 0.9 % Sodium Chloride 250 ML IVCONT (17:54)
--- NOTE | 2020-12-30 18:16 | PC.NURSE ---
PT ARRIVED FROM [facility] ON IMC AT 1015. BEDSIDE TO DISCUSS PLACEMENT OF TEMPORARY PACEMAKER WITH PATIENT. PT AGREED TO PROCEDURE. INITAL PLACEMENT CONFIRMED WITH CXR. SETTING OF A RATE OF 80, OUTPUT 6.0, SENSE 2.0. WHILE EATING LUNCH CAPTURING LOST, MD NOTIFIED AND SETTINGS ADJUSTED WITHOUT SUCCESS. PATIENT BROUGHT TO IR TO FIX WIRES UNDER FLUORO BY MD. NEW AND CURRENT SETTINGS: RATE 100, OUTPUT 6.0, SENSE 3.0. RHYTHM VPACED WITH FREQUENT PVCS. BLOOD PRESSURE BEING SUPPORTED BY BRE AND CURRENTLY RUNNING AT 0.5 MCG/KG/MIN. CUELLO PLACED FOR ACCURATE I&O. DINNER POC 455 AND COVERED WITH SLIDING SCALE OF 10 UNITS AND STARTED ON LANTUS 15 UNITS BID. ATE 100% OF LUNCH AND DINNER. BATHED, Q2HR REPO, PILLOWS UTILIZED. FAMILY BEDSIDE AND UPDATED BY THIS RN AND MD.
[2020-12-30] MEDS: Atorvastatin Calcium 40 MG TABLET PO (20:51)
[2020-12-30 21:08] LABS: Glucose, Whole Blood 469 mg/dL (60-115)
[2020-12-30] MEDS: Insulin Regular, Human 100 UNIT/ML 3 ML VIAL SUBCUT (21:42)
[2020-12-30 23:58] LABS: Glucose, Whole Blood 433 mg/dL (60-115)
[2020-12-31] VITALS (33 sets, daily range): BP systolic 74–168; BP diastolic 38–84; PULSE 59–110; RESP 11–22; TEMP 36.1–38.3; O2SAT 91–977; BMI 30.4
[2020-12-31] MEDS: Insulin Regular, Human 100 UNIT/ML 3 ML VIAL 15 UNIT SUBCUT (00:02)
[2020-12-31] MEDS: Phenylephrine HCL 20 MG in 0.9 % Sodium Chloride 250 ML 20.66 MG IVCONT (01:55)
[2020-12-31 02:04] LABS: Glucose, Whole Blood 300 mg/dL (60-115)
[2020-12-31] MEDS: Insulin Lispro 100 UNIT/ML 3 ML VIAL SUBCUT ×5 (02:10→21:31)
[2020-12-31 04:11] LABS: Glucose, Whole Blood 283 mg/dL (60-115)
[2020-12-31] MEDS: Albuterol/Iprat 2.5/0.5MG 3 ML AMPUL.NEB INHALE ×3 (05:20→23:51)
[2020-12-31 05:38] LABS: Hemoglobin 13.7 g/dl (14.0-18.0); PLT ABN DIST 1
[2020-12-31 05:40] LABS: Hematocrit 40.2 % (42-52); Mean Corpuscular HGB Conc 34.1 g/dl (31.0-36.0); Mean Corpuscular Hemoglobin 31.9 pg (27.0-33.0); Mean Corpuscular Volume 93.7 fL (80-98); Mean Platelet Volume 13.6 fL (9.4-12.4); Platelet Count 37 X10*3/uL (160-400); Red Blood Count 4.29 X10*6/uL (4.60-5.80); Red Cell Distribution Width 15.3 % (11.0-16.0); White Blood Count 4.8 X10*3/uL (4.8-10.8)
[2020-12-31 05:43] LABS: INTERNATIONAL NORM RATIO 3.4 (0.9-1.1); Prothrombin Time 41.4 SEC (10.8-13.0)
[2020-12-31 06:07] LABS: Anion Gap 15 (12-20); Blood Urea Nitrogen 45 mg/dL (9-16); Calcium 8.6 mg/dL (8.4-10.2); Carbon Dioxide 24 mmol/L (22-29); Chloride 102 mmol/L (96-108); Estimated Glomerular Filt Rate 44; Glucose Random 233 mg/dL (60-115); Magnesium 1.9 mg/dL (1.6-2.6); Potassium 4.5 mmol/L (3.3-5.1); Sodium 136 mmol/L (135-145)
--- NOTE | 2020-12-31 06:08 | PC.NURSE ---
VSS with Neosynephrine gtt. Pt a&o x3, able to make needs known. Pt satting well with 2L NC. Temporary pacemaker in place, 42 at hub, Rate 100, output 6.0, sensing 3.0- vpaced on monitor. U/O wnl, pt repod self,on myVBO
[2020-12-31 06:10] LABS: Atypical Lymph Absolute Manual 0.1 x10*3/uL; Atypical Lymphs Percent Manual 3 % (0-6); Band Neutrophils Percent 24 % (3-5); Lymphocytes Absolute Manual 0.6 X10*3/uL (0.6-4.8); Lymphocytes Percent Manual 13 % (20-40); Monocytes Absolute Manual 0.1 X10*3/uL (0.0-1.2); Monocytes Percent Manual 2 % (2-11); Neutrophils Absolute Manual 3.9 X10*3/uL (2.2-7.9); Neutrophils Percent Manual 58 % (45-73)
[2020-12-31 06:12] LABS: Dohle Bodies PRESENT; Polychromasia 1+ (0-2) /OIF; RBC Morphology NOTED; Toxic Granulation PRESENT
[2020-12-31 06:13] LABS: Large Platelet PRESENT; Platelet Estimate DECREASED (NORMAL); Platelet Morphology Comment NOTED; Toxic Vacuolation PRESENT
[2020-12-31 07:13] LABS: Glucose, Whole Blood 181 mg/dL (60-115)
[2020-12-31] MEDS: Acetaminophen 325 MG TABLET 650 MG PO (07:42)
[2020-12-31] MEDS: oxyCODONE HCl Immed Release 5 MG TABLET PO (07:44)
[2020-12-31] MEDS: Pregabalin 150 MG CAPSULE PO ×3 (07:45→21:31)
[2020-12-31] MEDS: Multivitamin TABLET 1 TAB PO (07:45)
[2020-12-31] MEDS: Mirabegron 25 MG TAB.ER.24H PO (07:47)
[2020-12-31] MEDS: predniSONE 20 MG TABLET PO (07:50)
[2020-12-31] MEDS: Sodium,Potassium Phosphates POWD.PACK 2 PACKET PO (08:11)
[2020-12-31] MEDS: 0.9 % Sodium Chloride Flush 3 ML SYRINGE IVFLUSH ×3 (08:56→23:51)
[2020-12-31] MEDS: Insulin Glargine,Hum.rec.anlog 100 UNIT/ML 10 ML VIAL 90 UNIT SUBCUT (08:59)
[2020-12-31] MEDS: Fluticasone Propionate Nasal 16 GM SPRAY 2 SPRAY NOSTRIL-B (09:00)
[2020-12-31] MEDS: Phenylephrine HCL 20 MG in 0.9 % Sodium Chloride 250 ML 68.87 MG IVCONT (09:15)
[2020-12-31] MEDS: Albumin Human 25 % 100 ML IV ×2 (10:49→16:06)
[2020-12-31] MEDS: Furosemide 200 MG in 0.9 % Sodium Chloride 80 ML IVCONT (10:51)
[2020-12-31 11:25] LABS: Glucose, Whole Blood 214 mg/dL (60-115)
--- NOTE | 2020-12-31 11:53 | P.PNCA_ITS ---
Subjective Subjective Date of Service: 12/31/20 Interval history: Feeling fine. Still complaining of some neck pain. Chart reviewed. It appears heart rate was in 30s palpable when he had h ypotension. He was pacing at 100 and on dropping the rate to 50 he has background AFib with PVCs. He has palpable heart rate is 46. His blood pressure in [place] rhythm was 140/54. Physical Exam Vital Signs: Last Vital Signs Temp 100.9 F H 12/31/20 08:00 Pulse 87 12/31/20 11:44 Resp 20 12/31/20 11:00 BP 120/47 L 12/31/20 11:00 Pulse Ox 99 12/31/20 11:00 Oxygen Flow Rate 2 12/28/20 19:42 Body Mass Index 30.4 GENERAL APPEARANCE: in no acute distress, pleasant. HEENT: unremarkable. HEAD: normocephalic, atraumatic. NECK/THYROID: no carotid bruit, right IJ Cordis with temporary pacemaker wire. SKIN: no suspicious lesions, warm and dry. HEART: no murmurs, irregular rate and rhythm. LUNGS: clear to auscultation bilaterally. ABDOMEN: soft, nontender. EXTREMITIES: Mild edema PERIPHERAL PULSES: equal. NEUROLOGIC: No gross deficits, AAO X 3 Results Labs and Meds Result diagrams: 12/31/20 05:06 12/31/20 05:06 Lab results: Laboratory Results - last 24 hr 12/30/20 12/30/20 12/30/20 11:57 16:32 21:01 WBC RBC Hgb Hct MCV MCH MCHC RDW Plt Count MPV Immature Gran % (Auto) Neut % (Auto) Lymph % (Auto) [place] % (Auto) Eos % (Auto) Baso % (Auto) Lymph # (Auto) [place] # (Auto) Eos # (Auto) Baso # (Auto) Abs Immat Gran (auto) Absolute Neuts (auto) Absolute Nucleated RBC Nucleated RBC % (auto) Neutrophils % (Manual) Band Neutrophils % Lymphocytes % (Manual) Atypical Lymphs % (Man) Monocytes % (Manual) Abs Neuts (Manual) Lymphocytes # (Manual) Atyp Lymphs # (Manual) Monocytes # (Manual) Toxic Granulation Toxic Vacuolation Dohle Bodies Platelet Estimate Large Platelets Plt Morphology Comment RBC Morphology Polychromasia Smear Path Review PT INR Sodium Potassium Chloride Carbon Dioxide Anion Gap BUN Creatinine Estim Creat Clear Calc Estimated GFR POC Glucose 357 H* 455 H* 469 H* Random Glucose Calcium Phosphorus Magnesium 12/30/20 12/31/20 12/31/20 23:40 01:59 04:07 WBC RBC Hgb Hct MCV MCH MCHC RDW Plt Count MPV Immature Gran % (Auto) Neut % (Auto) Lymph % (Auto) [place] % (Auto) Eos % (Auto) Baso % (Auto) Lymph # (Auto) [place] # (Auto) Eos # (Auto) Baso # (Auto) Abs Immat Gran (auto) Absolute Neuts (auto) Absolute Nucleated RBC Nucleated RBC % (auto) Neutrophils % (Manual) Band Neutrophils % Lymphocytes % (Manual) Atypical Lymphs % (Man) Monocytes % (Manual) Abs Neuts (Manual) Lymphocytes # (Manual) Atyp Lymphs # (Manual) Monocytes # (Manual) Toxic Granulation Toxic Vacuolation Dohle Bodies Platelet Estimate Large Platelets Plt Morphology Comment RBC Morphology Polychromasia Smear Path Review PT INR Sodium Potassium Chloride Carbon Dioxide Anion Gap BUN Creatinine Estim Creat Clear Calc Estimated GFR POC Glucose 433 H* 300 H 283 H Random Glucose Calcium Phosphorus Magnesium 12/31/20 12/31/20 12/31/20 05:06 05:06 05:06 WBC 4.8 RBC 4.29 L Hgb 13.7 L Hct 40.2 L MCV 93.7 MCH 31.9 MCHC 34.1 RDW 15.3 Plt Count 37 L MPV 13.6 H Immature Gran % (Auto) Cancelled Neut % (Auto) Cancelled Lymph % (Auto) Cancelled [place] % (Auto) Cancelled Eos % (Auto) Cancelled Baso % (Auto) Cancelled Lymph # (Auto) Cancelled [place] # (Auto) Cancelled Eos # (Auto) Cancelled Baso # (Auto) Cancelled Abs Immat Gran (auto) Cancelled Absolute Neuts (auto) Cancelled Absolute Nucleated RBC 0.000 Nucleated RBC % (auto) 0.0 Neutrophils % (Manual) 58 Band Neutrophils % 24 H Lymphocytes % (Manual) 13 L Atypical Lymphs % (Man) 3 Monocytes % (Manual) 2 Abs Neuts (Manual) 3.9 Lymphocytes # (Manual) 0.6 Atyp Lymphs # (Manual) 0.1 Monocytes # (Manual) 0.1 Toxic Granulation PRESENT Toxic Vacuolation PRESENT Dohle Bodies PRESENT Platelet Estimate DECREASED Large Platelets PRESENT Plt Morphology Comment NOTED RBC Morphology NOTED Polychromasia 1+ (0-2) Smear Path Review SEE NOTE PT 41.4 H INR 3.4 H Sodium 136 Potassium 4.5 D Chloride 102 Carbon Dioxide 24 Anion Gap 15 BUN 45 H Creatinine 1.52 H Estim Creat Clear Calc 39.0 Estimated GFR 44 POC Glucose Random Glucose 233 H Calcium 8.6 D Phosphorus 2.0 L Magnesium 1.9 12/31/20 12/31/20 07:07 11:19 WBC RBC Hgb Hct MCV MCH MCHC RDW Plt Count MPV Immature Gran % (Auto) Neut % (Auto) Lymph % (Auto) [place] % (Auto) Eos % (Auto) Baso % (Auto) Lymph # (Auto) [place] # (Auto) Eos # (Auto) Baso # (Auto) Abs Immat Gran (auto) Absolute Neuts (auto) Absolute Nucleated RBC Nucleated RBC % (auto) Neutrophils % (Manual) Band Neutrophils % Lymphocytes % (Manual) Atypical Lymphs % (Man) Monocytes % (Manual) Abs Neuts (Manual) Lymphocytes # (Manual) Atyp Lymphs # (Manual) Monocytes # (Manual) Toxic Granulation Toxic Vacuolation Dohle Bodies Platelet Estimate Large Platelets Plt Morphology Comment RBC Morphology Polychromasia Smear Path Review PT INR Sodium Potassium Chloride Carbon Dioxide Anion Gap BUN Creatinine Estim Creat Clear Calc Estimated GFR POC Glucose 181 H 214 H Random Glucose Calcium Phosphorus Magnesium Imaging Radiologist's impression: Impressions Chest X-Ray 12/30/20 13:25 IMPRESSION: The temporary pacemaker tip lies in the right atrium. The lungs are clear. Progress Note: A&P Assessment and plan (1) Symptomatic bradycardia: Status: Acute (2) Ventricular bigeminy: Status: Acute (3) Persistent atrial fibrillation: Status: Acute (4) Thrombocytopenia: Status: Acute (5) Supratherapeutic INR: Status: Acute Assessment and Plan: 85-year-old gentleman with background of bifascicular block, diastolic heart failure, recent diagnosis of atrial fibrillation for which she was on Coumadin and thrombocytopenia. He is presenting for neck pain. He was noticed to be clinically in heart failure and also was noticed to have significant bigeminy for which is a beta jas. Followed by that he developed symptomatic bradycardia and was brought to ICU urgently and had a temporary pacemaker placed. His blood pressure improved after that. Currently his background rhythm is atrial fibrillation with bigeminy and his palpable heart rate is 46 beats per minute. His blood pressure is stable. I have left the pacemaker at a backup of 50 beats per minute for now. I agree that he will need permanent pacemaker. I will reach out to electrophysiology with [facility] to see if we can do the permanent pacemaker soon. Continue to hold the Coumadin for now. Unsure what is the cause for his platelet counts being low. Blood cultures are negative. Thank you for allowing me to participate in the care of your patient. Please feel free to contact me if you have any questions. Fall Risk Details Current Medications: Current Medications Generic Name Dose Route Start Last Admin Trade Name Freq PRN Reason Stop Dose Admin Acetaminophen 650 mg 12/29/20 01:42 12/31/20 07:42 Acetaminophen 325 Mg Tablet PO 650 mg Q6H PRN Administration Pain, Mild (Pain Scale 1-3) Albuterol/Ipratropium 3 ml 12/29/20 06:00 12/31/20 11:43 Albuterol/Iprat 2.5/0.5mg 3 Ml Ampul.Neb INHALE 3 ml RQ6H LESA Administration Atorvastatin Calcium 40 mg 12/29/20 21:00 12/30/20 20:51 Atorvastatin Calcium 40 Mg Tablet PO 40 mg BEDTIME LESA Administration Docusate Sodium 100 mg 12/29/20 01:42 Docusate Sodium 100 Mg Capsule PO DAILY PRN Constipation Doxycycline Hyclate 100 mg 12/31/20 21:00 Doxycycline Hyclate 100 Mg Tablet PO Q12H LESA Fentanyl 50 mcg 12/31/20 11:11 Fentanyl Citrate/Pf 100 Mcg/2 Ml Vial IVPUSH Q3H PRN Pain, Moderate (Pain Scale 4-6 Fluticasone Propionate 2 spray 12/29/20 09:00 12/31/20 09:00 Fluticasone Propionate Nasal 16 Gm Olla NOSTRIL-B 2 spray DAILY LESA Administration Phenylephrine HCl 100 mg/ 260 mls @ 0 mls/hr 12/31/20 09:45 Sodium Chloride IVCONT .Q0M LESA Protocol Per Protocol Albumin Human 100 mls @ 100 mls/hr 12/31/20 10:15 12/31/20 10:49 Kedbumin 25 % IV 01/01/21 05:14 100 mls/hr Q6H LESA Administration Furosemide 200 mg/ Sodium 100 mls @ 1 mls/hr 12/31/20 10:15 12/31/20 10:51 Chloride IVCONT 2 mg/hr .Q24H LESA 1 mls/hr Administration 2 MG/HR Doxycycline Hyclate 100 mg/ 250 mls @ 166.67 mls/hr 12/31/20 11:18 Sodium Chloride IV 12/31/20 12:47 ONCE ONE Insulin Glargine 90 unit 12/31/20 09:00 12/31/20 08:59 Insulin Glargine,Hum.Rec.Anlog 100 Unit/Ml 10 Ml Vial SUBCUT 90 unit DAILY LESA Administration Insulin Human Lispro 0 unit 12/29/20 11:30 12/31/20 08:53 Insulin Lispro 100 Unit/Ml 3 Ml Vial SUBCUT 2 unit QIDACHS LESA Administration Protocol Mirabegron 25 mg 12/29/20 09:00 12/31/20 07:47 Mirabegron 25 Mg Tab.Er.24h PO 25 mg DAILY LESA Administration Multivitamins/Vitamin C 1 tab 12/29/20 09:00 12/31/20 07:45 Multivitamin Tablet PO 1 tab DAILY LESA Administration Ondansetron HCl 4 mg 12/29/20 01:42 Ondansetron Hcl 4 Mg/2 Ml Vial IVPUSH Q8H PRN Nausea and Vomiting Oxycodone HCl 5 mg 12/29/20 08:26 12/31/20 07:44 Oxycodone Hcl Immed Release 5 Mg Tablet PO 5 mg Q6H PRN Administration Pain, Severe (Pain Scale 7-10) Pregabalin 150 mg 12/29/20 09:00 12/31/20 07:45 Pregabalin 150 Mg Capsule PO 150 mg TID LESA Administration Sodium Chloride 3 ml 12/29/20 01:42 12/31/20 08:56 0.9 % Sodium Chloride Flush 3 Ml Syringe IVFLUSH 3 ml QSHIFT LESA Administration Time Spent With Patient Time: Total time spent is greater than 50% in coordination of care (as documented) at patient's floor/unit and/or counseling patient: Time with patient: 15 - 24 minutes
[2020-12-31] MEDS: Doxycycline Hyclate 100 MG in 0.9 % Sodium Chloride 250 ML 166.67 MG IV (12:18)
[2020-12-31] MEDS: fentaNYL citrate/PF 100 MCG/2 ML VIAL 50 MCG IVPUSH (12:19)
[2020-12-31] MEDS: Phenylephrine HCL 100 MG in 0.9 % Sodium Chloride 250 ML 13.76 MG IVCONT (12:22)
--- NOTE | 2020-12-31 14:03 | MHC.CM.PN ---
Pt remains in ICU with CHF exacerbation, bradycardia needing a permanent pacer and new temp concerning for infectious process. Temp will be monitored today: if afebrile, plans can be made for pacer insertion (INR still elevated but could be reversed) Pt resides at home with spouse and has [facility] services. CM to follow for changes in d/c plan
--- NOTE | 2020-12-31 14:18 | P.PNCC_ITS ---
Subjective Subjective Date of Service: 12/31/20 Interval History: 85-year-old gentleman with underlying history of CAD, diabetes mellitus, AFib, bifascicular block, prior [place] with recent admission for bradycardia secondary to beta-jas overdose admitted on 12/28/2020 with dyspnea secondary to heart failure exacerbation. Patient has been initially treated with a diuretic, he developed symptomatic bradycardia with ventricular bigeminy necessitating transfer to intensive care unit and placement of a temporary pacer with pressor support. His hospital course has been further been complicated by coagulopathy, transaminitis, and thrombocytopenia. Of note, on 12/31/2020 his blood smear was noted to be positive for Anaplasma and he was started on doxycycline. Physical Exam Vital Signs: Vital Signs: Last Vital Signs Temp 98.7 F 12/31/20 12:00 Pulse 86 12/31/20 14:00 Resp 22 H 12/31/20 14:00 BP 99/71 12/31/20 14:00 Pulse Ox 93 12/31/20 14:00 Oxygen Flow Rate 2 12/28/20 19:42 Body Mass Index 30.4 Const: General: no acute distress, alert and awake Eyes: Sclerae: sclerae normal EOM: EOMs intact bilaterally Neck: Neck: Yes no lymphadenopathy, Yes trachea midline and Yes supple Resp: Effort & Inspection: normal respiratory effort and no respiratory distress Auscultation: crackles (Bibasilar) Cardio: Rate: regular rate Rhythm: regular rhythm Heart sounds: no gallops, no murmurs and no rubs GI: Palpation (GI): Soft to palpation and Other GI palpation findings present ( Nontender) Auscultation: normal bowel sounds Extrem: General: No clubbing, No cyanosis and Yes pedal edema (2+ bilateral) Objective Data Labs CBC & Chem 7: 12/31/20 05:06 12/31/20 05:06 Labs: Laboratory Results - last 24 hr 12/30/20 12/30/20 12/30/20 16:32 21:01 23:40 WBC RBC Hgb Hct MCV MCH MCHC RDW Plt Count MPV Immature Gran % (Auto) Neut % (Auto) Lymph % (Auto) [place] % (Auto) Eos % (Auto) Baso % (Auto) Lymph # (Auto) [place] # (Auto) Eos # (Auto) Baso # (Auto) Abs Immat Gran (auto) Absolute Neuts (auto) Absolute Nucleated RBC Nucleated RBC % (auto) Neutrophils % (Manual) Band Neutrophils % Lymphocytes % (Manual) Atypical Lymphs % (Man) Monocytes % (Manual) Abs Neuts (Manual) Lymphocytes # (Manual) Atyp Lymphs # (Manual) Monocytes # (Manual) Toxic Granulation Toxic Vacuolation Dohle Bodies Platelet Estimate Large Platelets Plt Morphology Comment RBC Morphology Polychromasia Smear Path Review PT INR Sodium Potassium Chloride Carbon Dioxide Anion Gap BUN Creatinine Estim Creat Clear Calc Estimated GFR POC Glucose 455 H* 469 H* 433 H* Random Glucose Calcium Phosphorus Magnesium 12/31/20 12/31/20 12/31/20 01:59 04:07 05:06 WBC RBC Hgb Hct MCV MCH MCHC RDW Plt Count MPV Immature Gran % (Auto) Neut % (Auto) Lymph % (Auto) [place] % (Auto) Eos % (Auto) Baso % (Auto) Lymph # (Auto) [place] # (Auto) Eos # (Auto) Baso # (Auto) Abs Immat Gran (auto) Absolute Neuts (auto) Absolute Nucleated RBC Nucleated RBC % (auto) Neutrophils % (Manual) Band Neutrophils % Lymphocytes % (Manual) Atypical Lymphs % (Man) Monocytes % (Manual) Abs Neuts (Manual) Lymphocytes # (Manual) Atyp Lymphs # (Manual) Monocytes # (Manual) Toxic Granulation Toxic Vacuolation Dohle Bodies Platelet Estimate Large Platelets Plt Morphology Comment RBC Morphology Polychromasia Smear Path Review PT 41.4 H INR 3.4 H Sodium Potassium Chloride Carbon Dioxide Anion Gap BUN Creatinine Estim Creat Clear Calc Estimated GFR POC Glucose 300 H 283 H Random Glucose Calcium Phosphorus Magnesium 12/31/20 12/31/20 12/31/20 05:06 05:06 07:07 WBC 4.8 RBC 4.29 L Hgb 13.7 L Hct 40.2 L MCV 93.7 MCH 31.9 MCHC 34.1 RDW 15.3 Plt Count 37 L MPV 13.6 H Immature Gran % (Auto) Cancelled Neut % (Auto) Cancelled Lymph % (Auto) Cancelled [place] % (Auto) Cancelled Eos % (Auto) Cancelled Baso % (Auto) Cancelled Lymph # (Auto) Cancelled [place] # (Auto) Cancelled Eos # (Auto) Cancelled Baso # (Auto) Cancelled Abs Immat Gran (auto) Cancelled Absolute Neuts (auto) Cancelled Absolute Nucleated RBC 0.000 Nucleated RBC % (auto) 0.0 Neutrophils % (Manual) 58 Band Neutrophils % 24 H Lymphocytes % (Manual) 13 L Atypical Lymphs % (Man) 3 Monocytes % (Manual) 2 Abs Neuts (Manual) 3.9 Lymphocytes # (Manual) 0.6 Atyp Lymphs # (Manual) 0.1 Monocytes # (Manual) 0.1 Toxic Granulation PRESENT Toxic Vacuolation PRESENT Dohle Bodies PRESENT Platelet Estimate DECREASED Large Platelets PRESENT Plt Morphology Comment NOTED RBC Morphology NOTED Polychromasia 1+ (0-2) Smear Path Review SEE NOTE PT INR Sodium 136 Potassium 4.5 D Chloride 102 Carbon Dioxide 24 Anion Gap 15 BUN 45 H Creatinine 1.52 H Estim Creat Clear Calc 39.0 Estimated GFR 44 POC Glucose 181 H Random Glucose 233 H Calcium 8.6 D Phosphorus 2.0 L Magnesium 1.9 12/31/20 11:19 WBC RBC Hgb Hct MCV MCH MCHC RDW Plt Count MPV Immature Gran % (Auto) Neut % (Auto) Lymph % (Auto) [place] % (Auto) Eos % (Auto) Baso % (Auto) Lymph # (Auto) [place] # (Auto) Eos # (Auto) Baso # (Auto) Abs Immat Gran (auto) Absolute Neuts (auto) Absolute Nucleated RBC Nucleated RBC % (auto) Neutrophils % (Manual) Band Neutrophils % Lymphocytes % (Manual) Atypical Lymphs % (Man) Monocytes % (Manual) Abs Neuts (Manual) Lymphocytes # (Manual) Atyp Lymphs # (Manual) Monocytes # (Manual) Toxic Granulation Toxic Vacuolation Dohle Bodies Platelet Estimate Large Platelets Plt Morphology Comment RBC Morphology Polychromasia Smear Path Review PT INR Sodium Potassium Chloride Carbon Dioxide Anion Gap BUN Creatinine Estim Creat Clear Calc Estimated GFR POC Glucose 214 H Random Glucose Calcium Phosphorus Magnesium Microbiology Microbiology Results: Microbiology 12/28/20 20:55 Blood - Venous Blood Culture - Preliminary No growth after 48 hours. 12/28/20 20:44 Blood - Venous Blood Culture - Preliminary No growth after 48 hours. Progress Note: A&P Assessment and plan (1) Symptomatic bradycardia: Status: Acute Assessment and Plan: Assessment: 85-year-old gentleman with underlying CAD, AFib, bifascicular block admitted with acute on chronic diastolic congestive heart failure exacerbation further complicated by development of symptomatic bradycardia requiring temporary pacer cough and acute anaplasma infection Plan: Neuro: No acute issues. Cardiac: Symptomatic bradycardia, underlying AFib and bifascicular block. Cardiology service care appreciated. Now with temporary pacer, may require permanent pacer. Exacerbation of underlying diastolic congestive heart failure improving with diuresis. Continue to titrate off pressors as tolerated. Pulmonary: Acute hypoxic respiratory failure secondary to exacerbation of underlying chronic diastolic congestive heart failure, improving with diuresis. Continue to titrate off supplemental oxygen as tolerated. Renal: A care, likely secondary to intravascular volume depletion. Will start with albumin supplementation. Continue with gentle IV diuresis. Endo: No acute issues. Underlying diabetes mellitus. GI: No acute issues. ID: Anaplasma on the blood smear, starting doxycycline. Lyme serologies are pending. 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 Coagulopathy, improving. Psych: No acute issues. Miscellaneous: No acute issues. Prophylaxis: INR supratherapeutic Diet: Cardiac Critical care time spent: 60 minutes (2) Leukopenia: Status: Acute (3) Ventricular bigeminy: Status: Acute (4) Persistent atrial fibrillation: Status: Acute (5) Thrombocytopenia: Status: Acute (6) Acute diastolic (congestive) heart failure: Status: Acute (7) Supratherapeutic INR: Status: Acute (8) Anaplasmosis: Status: Acute Critical Care Time Critical Care Time (minutes): 60
[2020-12-31 16:35] LABS: Glucose, Whole Blood 392 mg/dL (60-115)
--- NOTE | 2020-12-31 20:20 | PC.NURSE ---
assumed care at 0700; patient was alert, anxious, oriented x4. Patient was on 3 lpm nasal cannula, this has been titrated off to room air, spo2 stays 96-100% on room air. This morning patient noted to have drank 1 liter of PO fluids from 7 am to 8 am, lung sounds with finecrackles at bilateral bases, +4 edema to bilateral feet, MD notified, urine outputs had been about 30 ccs per hour, lasix gtt ordered, after started urine outputs increased to about 150-225 per hour, and patient diuresed over 1 liter this shift. New order for 2 liters per day fluid restriction, patient educated about this. Patient BP has been somewhat labile around change to 5x concentrated Michele, but otherwise Michele was titrated up from 0.5 to 2 and back down to 0.5. Patient in afib with bigemony and trigemony on monitor, frequent PVCs, and V-Pacing. Temporary pacer in Cordis to right IJ, original settings were pacing 100, output 6.0, and sensing 3.0; the exhibit cleaner was in to see patient in the afternoon and changed these so it was pacing 50 with output 6.0 and sensing 3.0; the patient had more ectopy with frequent PVCs and bradycardia down to 40's with no sensing or firing on monitor, MD was brought to bedside and changed settings to pacing 60, output 6.0, sensing 3.0, and that is the current setting; the cordis is 42 cm at the hub; the dressing was reinforced with tegederms. Patient started on albumin. Patient abdomen is distended and semi-firm, last BM 12/29, MD aware. Patient has fine tremors of bilateral hands, patient and his attest that this started day of admission, and MD aware. Patient endorses drinking wine and beer at baseline, but states his last drink was 3 weeks ago. Patient was sweaty all day, despite being bathed and his POC was 181 while diaphoretic. Later in at dinner his POC was 392, 10 units lispro administered per sliding scale and MD notified. 90 units of lantus this morning. good appetite: 100% meals. Patient was febrile this morning 100.9 orally, MD aware. Rechecked and afebrile in the afternoon. Patient tested positive for anaplasma this shift, new order for doxycycline, also tested for Lyme this shift. skin with scattered bruising through bilateral arms, also has redness on bilateral buttocks that is blanchable and photographed, and abrasions to bilateral knees that are intact.
[2020-12-31 21:17] LABS: Glucose, Whole Blood 345 mg/dL (60-115)
[2020-12-31] MEDS: Atorvastatin Calcium 40 MG TABLET PO (21:31)
[2020-12-31] MEDS: Albumin Human 25 % 100 ML 200 ML IV (21:38)
[2021-01-01] VITALS (32 sets, daily range): BP systolic 80–162; BP diastolic 45–84; PULSE 58–88; RESP 9–19; TEMP 36–36.9; O2SAT 91–100; BMI 29.5
[2021-01-01] MEDS: Albumin Human 25 % 100 ML 200 ML IV (04:10)
[2021-01-01 05:41] LABS: VBG Base Excess 8.7 mmol/L; VBG HCO3 33 mmol/L (22-26); VBG pCO2 47 mmHg; VBG pH 7.46 (7.32-7.43); VBG pO2 39 mmHg
[2021-01-01] MEDS: Albuterol/Iprat 2.5/0.5MG 3 ML AMPUL.NEB INHALE ×3 (05:51→19:34)
[2021-01-01 06:01] LABS: Basophils Percent Auto 0.2 % (0-2); MANUAL DIFF FLAG SCAN; Platelet Count 34 X10*3/uL (160-400); SCAN SMEAR FLAG 1
[2021-01-01 06:03] LABS: Hematocrit 30.7 % (42-52); Hemoglobin 10.5 g/dl (14.0-18.0); Imm Gran Abs Auto 0.06 X10*3/uL (0.00-0.03); Imm Gran Pct Auto 1.3 % (0.0-0.4); Lymphocytes Absolute Auto 1.3 X10*3/uL (1.2-4.9); Lymphocytes Percent Auto 26.5 % (20-40); Mean Corpuscular HGB Conc 34.2 g/dl (31.0-36.0); Mean Corpuscular Hemoglobin 32.5 pg (27.0-33.0); Mean Platelet Volume 13.4 fL (9.4-12.4); Monocytes Absolute Auto 0.4 X10*3/uL (0.1-1.2); Monocytes Percent Auto 7.9 % (2-11); Neutrophils Absolute Auto 3.1 X10*3/uL (2.0-8.3); Neutrophils Percent Auto 64.1 % (45-73); Red Blood Count 3.23 X10*6/uL (4.60-5.80); Red Cell Distribution Width 15.8 % (11.0-16.0); White Blood Count 4.8 X10*3/uL (4.8-10.8)
[2021-01-01 06:09] LABS: PLT ABN DIST 1
[2021-01-01 06:11] LABS: INTERNATIONAL NORM RATIO 2.3 (0.9-1.1); Prothrombin Time 27.3 SEC (10.8-13.0)
[2021-01-01 06:23] LABS: SLIDE REVIEW VERIFIED
[2021-01-01 06:35] LABS: Alanine Aminotransferase 81 U/L (0-40); Albumin Level 3.7 g/dL (3.5-5.0); Alkaline Phosphatase 96 U/L (39-117); Anion Gap 14 (12-20); Aspartate Amino Transferase 88 U/L (5-37); Bilirubin Total 1.7 mg/dL (0.0-1.0); Blood Urea Nitrogen 46 mg/dL (9-16); Calcium 8.6 mg/dL (8.4-10.2); Carbon Dioxide 30 mmol/L (22-29); Chloride 99 mmol/L (96-108); Estimated Glomerular Filt Rate 46; Glucose Random 357 mg/dL (60-115); Magnesium 1.9 mg/dL (1.6-2.6); Potassium 3.5 mmol/L (3.3-5.1); Sodium 139 mmol/L (135-145)
[2021-01-01 06:47] LABS: Venous Blood Gas Refer to POC result
[2021-01-01 07:08] LABS: Glucose, Whole Blood 318 mg/dL (60-115)
[2021-01-01] MEDS: Insulin Lispro 100 UNIT/ML 3 ML VIAL SUBCUT ×4 (08:06→20:27)
[2021-01-01] MEDS: Insulin Glargine,Hum.rec.anlog 100 UNIT/ML 10 ML VIAL 90 UNIT SUBCUT (08:06)
[2021-01-01] MEDS: Pregabalin 150 MG CAPSULE PO ×3 (08:07→20:30)
[2021-01-01] MEDS: Mirabegron 25 MG TAB.ER.24H PO (08:07)
[2021-01-01] MEDS: Multivitamin TABLET 1 TAB PO (08:07)
[2021-01-01] MEDS: 0.9 % Sodium Chloride Flush 3 ML SYRINGE IVFLUSH ×2 (08:07→16:29)
[2021-01-01] MEDS: Fluticasone Propionate Nasal 16 GM SPRAY 2 SPRAY NOSTRIL-B (08:08)
[2021-01-01] MEDS: Potassium Chloride Packet 20 MEQ PACKET 60 MEQ PO (09:12)
[2021-01-01 09:31] LABS: Glucose, Whole Blood 313 mg/dL (60-115)
--- NOTE | 2021-01-01 10:01 | P.PNCA_ITS ---
Subjective Subjective Date of Service: 01/01/21 Principal diagnosis: Afib, Alejandro, Temp PPM, PVCs, Diastolic HF, hypotension, thrombocytopenia Interval history: Cardiology follow up for the above. Seen at 0845. Today he reports feeling shaky and thristy. He states he felt better yesterday. No chest pains, breathing comfortable. No heart palpitations or dizziness. Mild generalized weakness. Review of Systems Review of Systems as above Yes all other systems are reviewed and are negative Physical Exam Vital Signs: Last Vital Signs Temp 97.3 F 01/01/21 08:00 Pulse 60 01/01/21 09:00 Resp 10 L 01/01/21 09:00 BP 111/75 01/01/21 09:00 Pulse Ox 100 01/01/21 09:00 Oxygen Flow Rate 2 12/28/20 19:42 Body Mass Index 29.5 Const General: cooperative, no acute distress, alert and awake Orientation/consciousness: patient oriented x3 HENMT Head: Yes normal to inspection Neck Other: Introducer and pacer wire into right IJ, no JVD seen left IJ Neck: Yes no JVD Resp Other: Unlabored with rales noted in each lower lobe Effort & Inspection: normal respiratory effort and not labored Auscultation: no rhonchi and no wheezes Cardio Palpation: normal PMI Rate: regular rate Rhythm: regular rhythm Heart sounds: S1 normal heart sound present and S2 normal heart sound present Peripheral pulses: Peripheral pulses 2+ throughout GI Inspection: Yes normal to inspection Neuro General: patient oriented x3 Extrem General: Yes normal to inspection and No edema Results Labs and Meds Result diagrams: 01/01/21 05:35 01/01/21 05:35 Lab results: Laboratory Results - last 24 hr 12/31/20 12/31/20 12/31/20 05:06 11:19 16:32 WBC RBC Hgb Hct MCV MCH MCHC RDW Plt Count MPV Immature Gran % (Auto) Neut % (Auto) Lymph % (Auto) [place] % (Auto) Eos % (Auto) Baso % (Auto) Lymph # (Auto) [place] # (Auto) Eos # (Auto) Baso # (Auto) Abs Immat Gran (auto) Absolute Neuts (auto) Absolute Nucleated RBC Nucleated RBC % (auto) Smear Tech's Comments Smear Path Review SEE NOTE PT INR VBG pH VBG pCO2 VBG pO2 VBG HCO3 VBG O2 Saturation VBG Base Excess Sodium Potassium Chloride Carbon Dioxide Anion Gap BUN Creatinine Estim Creat Clear Calc Estimated GFR POC Glucose 214 H 392 H* Random Glucose Calcium Phosphorus Magnesium Total Bilirubin AST ALT Alkaline Phosphatase Total Protein Albumin 12/31/20 01/01/21 01/01/21 21:11 05:35 05:35 WBC 4.8 RBC 3.23 L D Hgb 10.5 L D Hct 30.7 L D MCV 95.0 MCH 32.5 MCHC 34.2 RDW 15.8 Plt Count 34 L MPV 13.4 H Immature Gran % (Auto) 1.3 H Neut % (Auto) 64.1 Lymph % (Auto) 26.5 [place] % (Auto) 7.9 Eos % (Auto) 0.0 Baso % (Auto) 0.2 Lymph # (Auto) 1.3 [place] # (Auto) 0.4 Eos # (Auto) 0.0 Baso # (Auto) 0.0 Abs Immat Gran (auto) 0.06 H Absolute Neuts (auto) 3.1 Absolute Nucleated RBC 0.000 Nucleated RBC % (auto) 0.0 Smear Tech's Comments VERIFIED Smear Path Review PT 27.3 H D INR 2.3 H VBG pH VBG pCO2 VBG pO2 VBG HCO3 VBG O2 Saturation VBG Base Excess Sodium Potassium Chloride Carbon Dioxide Anion Gap BUN Creatinine Estim Creat Clear Calc Estimated GFR POC Glucose 345 H Random Glucose Calcium Phosphorus Magnesium Total Bilirubin AST ALT Alkaline Phosphatase Total Protein Albumin 01/01/21 01/01/21 01/01/21 05:35 05:35 07:04 WBC RBC Hgb Hct MCV MCH MCHC RDW Plt Count MPV Immature Gran % (Auto) Neut % (Auto) Lymph % (Auto) [place] % (Auto) Eos % (Auto) Baso % (Auto) Lymph # (Auto) [place] # (Auto) Eos # (Auto) Baso # (Auto) Abs Immat Gran (auto) Absolute Neuts (auto) Absolute Nucleated RBC Nucleated RBC % (auto) Smear Tech's Comments Smear Path Review PT INR VBG pH 7.46 H VBG pCO2 47 VBG pO2 39 VBG HCO3 33 H VBG O2 Saturation 65.0 VBG Base Excess 8.7 Sodium 139 Potassium 3.5 D Chloride 99 Carbon Dioxide 30 H Anion Gap 14 BUN 46 H Creatinine 1.46 H Estim Creat Clear Calc 40.0 Estimated GFR 46 POC Glucose 318 H Random Glucose 357 H* Calcium 8.6 Phosphorus 4.0 Magnesium 1.9 Total Bilirubin 1.7 H AST 88 H ALT 81 H Alkaline Phosphatase 96 Total Protein 6.0 L Albumin 3.7 01/01/21 09:23 WBC RBC Hgb Hct MCV MCH MCHC RDW Plt Count MPV Immature Gran % (Auto) Neut % (Auto) Lymph % (Auto) [place] % (Auto) Eos % (Auto) Baso % (Auto) Lymph # (Auto) [place] # (Auto) Eos # (Auto) Baso # (Auto) Abs Immat Gran (auto) Absolute Neuts (auto) Absolute Nucleated RBC Nucleated RBC % (auto) Smear Tech's Comments Smear Path Review PT INR VBG pH VBG pCO2 VBG pO2 VBG HCO3 VBG O2 Saturation VBG Base Excess Sodium Potassium Chloride Carbon Dioxide Anion Gap BUN Creatinine Estim Creat Clear Calc Estimated GFR POC Glucose 313 H Random Glucose Calcium Phosphorus Magnesium Total Bilirubin AST ALT Alkaline Phosphatase Total Protein Albumin Progress Note: A&P Assessment and plan (1) Symptomatic bradycardia: Status: Acute Assessment and Plan: Events of admission reviewed by me. In ICU and under close observation of wildlife ecology professor. Temporary pacemaker wire in place. Tele shows underlying atrial fibrillation with V paced rhythm, PVCs with up to 4 beat NSVT. Platinum heart rate yesterday in the 40s. Lyme disease testing pending. If Neg then planning for permanent PPM placement. We will continue to follow along. (2) Ventricular bigeminy: Status: Acute Assessment and Plan: Freq PVCs this admit, short NSVT runs. Echo with EF 50-55%, mild LVH, normal valves. K and Mg normal levels. Sat 97% on RA. Ongoing tele monitoring (3) Persistent atrial fibrillation: Status: Acute Assessment and Plan: Slow ventricular response, underlying. Now with temporary PPM in place. On no rate slowing medications. Coumadin on hold. Probable PPM in near future. Has known thrombocytopenia with Plt currently 34. No signs of bleeding. Eventual restart of anticoagulation when medically appropriate (4) Thrombocytopenia: Status: Acute (5) Acute diastolic (congestive) heart failure: Status: Acute Assessment and Plan: On exam he does have rales in each base. He denies feeling sob. On lasix drip for diuresis. Continue with strict I+O monitoring, close monitoring of electrolyte and kidney function. Fall Risk Details Current Medications: Current Medications Generic Name Dose Route Start Last Admin Trade Name Freq PRN Reason Stop Dose Admin Acetaminophen 650 mg 12/29/20 01:42 12/31/20 07:42 Acetaminophen 325 Mg Tablet PO 650 mg Q6H PRN Administration Pain, Mild (Pain Scale 1-3) Albuterol/Ipratropium 3 ml 12/29/20 06:00 01/01/21 05:51 Albuterol/Iprat 2.5/0.5mg 3 Ml Ampul.Neb INHALE 3 ml RQ6H LESA Administration Atorvastatin Calcium 40 mg 12/29/20 21:00 12/31/20 21:31 Atorvastatin Calcium 40 Mg Tablet PO 40 mg BEDTIME LESA Administration Docusate Sodium 100 mg 12/29/20 01:42 Docusate Sodium 100 Mg Capsule PO DAILY PRN Constipation Doxycycline Hyclate 100 mg 12/31/20 21:00 01/01/21 08:07 Doxycycline Hyclate 100 Mg Tablet PO 100 mg Q12H LESA Administration Fentanyl 50 mcg 12/31/20 11:11 12/31/20 12:19 Fentanyl Citrate/Pf 100 Mcg/2 Ml Vial IVPUSH 50 mcg Q3H PRN Administration Pain, Moderate (Pain Scale 4-6 Fluticasone Propionate 2 spray 12/29/20 09:00 01/01/21 08:08 Fluticasone Propionate Nasal 16 Gm [place] NOSTRIL-B 2 spray DAILY LESA Administration Phenylephrine HCl 100 mg/ 260 mls @ 0 mls/hr 12/31/20 09:45 01/01/21 05:38 Sodium Chloride IVCONT 0.3 mcg/kg/min .Q0M LESA 4.13 mls/hr Titration Protocol Per Protocol Furosemide 200 mg/ Sodium 100 mls @ 1 mls/hr 12/31/20 10:15 12/31/20 10:51 Chloride IVCONT 2 mg/hr .Q24H LESA 1 mls/hr Administration 2 MG/HR Insulin Glargine 90 unit 12/31/20 09:00 01/01/21 08:06 Insulin Glargine,Hum.Rec.Anlog 100 Unit/Ml 10 Ml Vial SUBCUT 90 unit DAILY LESA Administration Insulin Human Lispro 0 unit 12/29/20 11:30 01/01/21 08:06 Insulin Lispro 100 Unit/Ml 3 Ml Vial SUBCUT 8 unit QIDACHS LESA Administration Protocol Mirabegron 25 mg 12/29/20 09:00 01/01/21 08:07 Mirabegron 25 Mg Tab.Er.24h PO 25 mg DAILY LESA Administration Multivitamins/Vitamin C 1 tab 12/29/20 09:00 01/01/21 08:07 Multivitamin Tablet PO 1 tab DAILY LESA Administration Pt Own Theraworx ( 1 each 12/31/20 15:54 Mag Sulfate [place]) TOPICAL TID PRN muscle ache Ondansetron HCl 4 mg 12/29/20 01:42 Ondansetron Hcl 4 Mg/2 Ml Vial IVPUSH Q8H PRN Nausea and Vomiting Oxycodone HCl 5 mg 12/29/20 08:26 12/31/20 07:44 Oxycodone Hcl Immed Release 5 Mg Tablet PO 5 mg Q6H PRN Administration Pain, Severe (Pain Scale 7-10) Pregabalin 150 mg 12/29/20 09:00 01/01/21 08:07 Pregabalin 150 Mg Capsule PO 150 mg TID LESA Administration Sodium Chloride 3 ml 12/29/20 01:42 01/01/21 08:07 0.9 % Sodium Chloride Flush 3 Ml Syringe IVFLUSH 3 ml QSHIFT LESA Administration Time Spent With Patient Time: Total time spent is greater than 50% in coordination of care (as documented) at patient's floor/unit and/or counseling patient: Time with patient: 15 - 24 minutes
[2021-01-01 10:06] LABS: Lyme Blot 1.67 index
[2021-01-01] MEDS: Furosemide 200 MG in 0.9 % Sodium Chloride 80 ML IVCONT (10:11)
--- NOTE | 2021-01-01 10:22 | P.CDIC_ITS ---
CDI Concurrent Query Service Date: 01/01/21 Documentation Clarification: Please clarify if you are treating a proba ble/suspected/likely or confirmed: Acute kidney failure Please specify if known or undetermined Provider Response: Other Other Diagnosis: Acute kidney injury PLEASE DO NOT DELETE/MODIFY EXISTING CONTENT Additional information is needed in order to code to the highest accuracy and appropriate Severity of Illness (SOI). Please clarify the information noted below in your progress notes and discharge summary. Risk Factors/Clinical Indicators/Treatments GFR > 60 53 44 CR: 1.03 1.29 1.52 Bun 28 38 45 IV fluids CDS: Radha Kurtz CCS, [facility]IS Contact Number: [phone] Please Review the information above and exercise your independent professional judgment in responding to the query. If you concur, pleas document in the PROGRESS NOTES and DISCHARGE SUMMARY. If you do not agree with the query, please document in the query above. THIS QUERY IS PART OF THE PERMANENT MEDICAL RECORD
[2021-01-01 12:19] LABS: Glucose, Whole Blood 334 mg/dL (60-115)
[2021-01-01 12:19] LABS: Glucose, Whole Blood 325 mg/dL (60-115)
--- NOTE | 2021-01-01 12:59 | PM.CCPN ---
Subjective Subjective Date of Service: 01/01/21 Interval History: 85-year-old gentleman with underlying history of CAD, diabetes mellitus, AFib, bifascicular block, prior [place] with recent admission for bradycardia secondary to beta-jas overdose admitted on 12/28/2020 with dyspnea secondary to heart failure exacerbation. Patient has been initially treated with a diuretic, he developed symptomatic bradycardia with ventricular bigeminy necessitating transfer to intensive care unit and placement of a temporary pacer with pressor support. His hospital course has been further been complicated by coagulopathy, transaminitis, and thrombocytopenia. Of note, on 12/31/2020 his blood smear was noted to be positive for Anaplasma and he was started on doxycycline. Lyme serologies are pending. No events overnight. Physical Exam Vital Signs: Vital Signs: Last Vital Signs Temp 97.3 F 01/01/21 08:00 Pulse 66 01/01/21 12:48 Resp 16 01/01/21 12:00 BP 92/51 L 01/01/21 12:48 Pulse Ox 94 01/01/21 12:00 Oxygen Flow Rate 2 12/28/20 19:42 Body Mass Index 29.5 Const: General: no acute distress, alert and awake Eyes: Sclerae: sclerae normal EOM: EOMs intact bilaterally Neck: Neck: Yes no lymphadenopathy, Yes trachea midline and Yes supple Resp: Effort & Inspection: normal respiratory effort and no respiratory distress Auscultation: crackles (Bibasilar) Cardio: Rate: regular rate (Paced) Rhythm: regular rhythm Heart sounds: no gallops, no murmurs and no rubs GI: Palpation (GI): Soft to palpation and Other GI palpation findings present ( Nontender) Auscultation: normal bowel sounds Extrem: General: No clubbing, No cyanosis and Yes pedal edema (1+ bilateral) Objective Data Labs CBC & Chem 7: 01/01/21 05:35 01/01/21 05:35 Labs: Laboratory Results - last 24 hr 12/31/20 12/31/20 12/31/20 15:31 16:32 21:11 WBC RBC Hgb Hct MCV MCH MCHC RDW Plt Count MPV Immature Gran % (Auto) Neut % (Auto) Lymph % (Auto) [place] % (Auto) Eos % (Auto) Baso % (Auto) Lymph # (Auto) [place] # (Auto) Eos # (Auto) Baso # (Auto) Abs Immat Gran (auto) Absolute Neuts (auto) Absolute Nucleated RBC Nucleated RBC % (auto) Smear Tech's Comments PT INR VBG pH VBG pCO2 VBG pO2 VBG HCO3 VBG O2 Saturation VBG Base Excess Sodium Potassium Chloride Carbon Dioxide Anion Gap BUN Creatinine Estim Creat Clear Calc Estimated GFR POC Glucose 392 H* 345 H Random Glucose Calcium Phosphorus Magnesium Total Bilirubin AST ALT Alkaline Phosphatase Total Protein Albumin Lyme Progressive Test 1.67 H 01/01/21 01/01/21 01/01/21 05:35 05:35 05:35 WBC 4.8 RBC 3.23 L D Hgb 10.5 L D Hct 30.7 L D MCV 95.0 MCH 32.5 MCHC 34.2 RDW 15.8 Plt Count 34 L MPV 13.4 H Immature Gran % (Auto) 1.3 H Neut % (Auto) 64.1 Lymph % (Auto) 26.5 [place] % (Auto) 7.9 Eos % (Auto) 0.0 Baso % (Auto) 0.2 Lymph # (Auto) 1.3 [place] # (Auto) 0.4 Eos # (Auto) 0.0 Baso # (Auto) 0.0 Abs Immat Gran (auto) 0.06 H Absolute Neuts (auto) 3.1 Absolute Nucleated RBC 0.000 Nucleated RBC % (auto) 0.0 Smear Tech's Comments VERIFIED PT 27.3 H D INR 2.3 H VBG pH VBG pCO2 VBG pO2 VBG HCO3 VBG O2 Saturation VBG Base Excess Sodium 139 Potassium 3.5 D Chloride 99 Carbon Dioxide 30 H Anion Gap 14 BUN 46 H Creatinine 1.46 H Estim Creat Clear Calc 40.0 Estimated GFR 46 POC Glucose Random Glucose 357 H* Calcium 8.6 Phosphorus 4.0 Magnesium 1.9 Total Bilirubin 1.7 H AST 88 H ALT 81 H Alkaline Phosphatase 96 Total Protein 6.0 L Albumin 3.7 Lyme Progressive Test 01/01/21 01/01/21 01/01/21 05:35 07:04 09:23 WBC RBC Hgb Hct MCV MCH MCHC RDW Plt Count MPV Immature Gran % (Auto) Neut % (Auto) Lymph % (Auto) [place] % (Auto) Eos % (Auto) Baso % (Auto) Lymph # (Auto) [place] # (Auto) Eos # (Auto) Baso # (Auto) Abs Immat Gran (auto) Absolute Neuts (auto) Absolute Nucleated RBC Nucleated RBC % (auto) Smear Tech's Comments PT INR VBG pH 7.46 H VBG pCO2 47 VBG pO2 39 VBG HCO3 33 H VBG O2 Saturation 65.0 VBG Base Excess 8.7 Sodium Potassium Chloride Carbon Dioxide Anion Gap BUN Creatinine Estim Creat Clear Calc Estimated GFR POC Glucose 318 H 313 H Random Glucose Calcium Phosphorus Magnesium Total Bilirubin AST ALT Alkaline Phosphatase Total Protein Albumin Lyme Progressive Test 01/01/21 01/01/21 11:15 12:13 WBC RBC Hgb Hct MCV MCH MCHC RDW Plt Count MPV Immature Gran % (Auto) Neut % (Auto) Lymph % (Auto) [place] % (Auto) Eos % (Auto) Baso % (Auto) Lymph # (Auto) [place] # (Auto) Eos # (Auto) Baso # (Auto) Abs Immat Gran (auto) Absolute Neuts (auto) Absolute Nucleated RBC Nucleated RBC % (auto) Smear Tech's Comments PT INR VBG pH VBG pCO2 VBG pO2 VBG HCO3 VBG O2 Saturation VBG Base Excess Sodium Potassium Chloride Carbon Dioxide Anion Gap BUN Creatinine Estim Creat Clear Calc Estimated GFR POC Glucose 325 H 334 H Random Glucose Calcium Phosphorus Magnesium Total Bilirubin AST ALT Alkaline Phosphatase Total Protein Albumin Lyme Progressive Test Microbiology Microbiology Results: Microbiology 12/28/20 20:55 Blood - Venous Blood Culture - Preliminary No growth after 48 hours. 12/28/20 20:44 Blood - Venous Blood Culture - Preliminary No growth after 48 hours. Progress Note: A&P Assessment and plan (1) Anaplasmosis: Status: Acute Assessment and Plan: Assessment: 85-year-old gentleman with underlying CAD, AFib, bifascicular block admitted with acute on chronic diastolic congestive heart failure exacerbation further complicated by development of symptomatic bradycardia requiring temporary pacer cough and acute anaplasma infection Plan: Neuro: No acute issues. Cardiac: Symptomatic bradycardia, underlying AFib and bifascicular block. Cardiology service care appreciated. Now with temporary pacer, may require permanent pacer. Exacerbation of underlying diastolic congestive heart failure improving with diuresis. Continue to titrate off pressors as tolerated. Pulmonary: Acute hypoxic respiratory failure secondary to exacerbation of underlying chronic diastolic congestive heart failure, improving with diuresis. Continue to titrate off supplemental oxygen as tolerated. Renal: Acute kidney injury, likely secondary to intravascular volume depletion versus cardiorenal syndrome, improving. Non oliguric. Continue with gentle IV diuresis. Endo: No acute issues. Underlying diabetes mellitus. GI: No acute issues. ID: Anaplasma now on doxycycline. Lyme serologies are pending. 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 Coagulopathy, improving. Psych: No acute issues. Miscellaneous: No acute issues. Prophylaxis: INR supratherapeutic Diet: Cardiac Critical care time spent: 60 minutes (2) Symptomatic bradycardia: Status: Acute (3) Leukopenia: Status: Acute (4) Ventricular bigeminy: Status: Acute (5) Persistent atrial fibrillation: Status: Acute (6) Thrombocytopenia: Status: Acute (7) Acute diastolic (congestive) heart failure: Status: Acute (8) Acute kidney injury: Status: Acute (9) Bifascicular block: Status: Acute Critical Care Time Critical Care Time (minutes): 60
[2021-01-01 16:25] LABS: Glucose, Whole Blood 330 mg/dL (60-115)
[2021-01-01] MEDS: Phenylephrine HCL 100 MG in 0.9 % Sodium Chloride 250 ML 6.88 MG IVCONT (18:09)
[2021-01-01] MEDS: Atorvastatin Calcium 40 MG TABLET PO (20:28)
[2021-01-02] VITALS (31 sets, daily range): BP systolic 80–127; BP diastolic 45–73; PULSE 56–92; RESP 11–21; TEMP 36.8; O2SAT 87–98; BMI 28.6
[2021-01-02 05:26] LABS: VBG HCO3 34 mmol/L (22-26); VBG pCO2 47 mmHg; VBG pH 7.47 (7.32-7.43); VBG pO2 51 mmHg
[2021-01-02 05:28] LABS: Venous Blood Gas Refer to POC result
[2021-01-02 05:33] LABS: Imm Gran Abs Auto 0.25 X10*3/uL (0.00-0.03); MANUAL DIFF FLAG SCAN; PLT ABN DIST 1; SCAN SMEAR FLAG 1
[2021-01-02 05:34] LABS: Basophils Percent Auto 0.1 % (0-2); Eosinophils Percent Auto 0.4 % (0-4); Hematocrit 36.7 % (42-52); Hemoglobin 12.3 g/dl (14.0-18.0); Imm Gran Pct Auto 3.6 % (0.0-0.4); Lymphocytes Absolute Auto 2.6 X10*3/uL (1.2-4.9); Lymphocytes Percent Auto 37.2 % (20-40); Mean Corpuscular HGB Conc 33.5 g/dl (31.0-36.0); Mean Corpuscular Hemoglobin 31.6 pg (27.0-33.0); Mean Corpuscular Volume 94.3 fL (80-98); Mean Platelet Volume 13.9 fL (9.4-12.4); Monocytes Absolute Auto 0.5 X10*3/uL (0.1-1.2); Monocytes Percent Auto 7.2 % (2-11); Neutrophils Absolute Auto 3.5 X10*3/uL (2.0-8.3); Neutrophils Percent Auto 51.5 % (45-73); Red Blood Count 3.89 X10*6/uL (4.60-5.80); Red Cell Distribution Width 15.8 % (11.0-16.0); White Blood Count 6.9 X10*3/uL (4.8-10.8)
[2021-01-02 05:37] LABS: Platelet Count 51 X10*3/uL (160-400)
[2021-01-02 05:56] LABS: Alanine Aminotransferase 90 U/L (0-40); Albumin Level 3.5 g/dL (3.5-5.0); Alkaline Phosphatase 116 U/L (39-117); Anion Gap 15 (12-20); Aspartate Amino Transferase 90 U/L (5-37); Bilirubin Total 1.6 mg/dL (0.0-1.0); Blood Urea Nitrogen 42 mg/dL (9-16); Calcium 9.5 mg/dL (8.4-10.2); Carbon Dioxide 29 mmol/L (22-29); Chloride 99 mmol/L (96-108); Creatinine Clr Calc Pharmacy 46.1; Estimated Glomerular Filt Rate 55; Glucose Random 133 mg/dL (60-115); Magnesium 1.8 mg/dL (1.6-2.6); Phosphorus 3.7 mg/dL (2.7-4.5); Potassium 4.4 mmol/L (3.3-5.1); SLIDE REVIEW VERIFIED; Sodium 139 mmol/L (135-145); Total Protein 6.5 g/dL (6.5-8.0)
[2021-01-02 07:31] LABS: Glucose, Whole Blood 118 mg/dL (60-115)
[2021-01-02 07:51] LABS: Glucose, Whole Blood 133 mg/dL (60-115)
[2021-01-02] MEDS: 0.9 % Sodium Chloride Flush 3 ML SYRINGE IVFLUSH ×2 (07:59→15:23)
[2021-01-02] MEDS: Mirabegron 25 MG TAB.ER.24H PO (08:01)
[2021-01-02] MEDS: Pregabalin 150 MG CAPSULE PO ×3 (08:01→20:41)
[2021-01-02] MEDS: Multivitamin TABLET 1 TAB PO (08:01)
[2021-01-02] MEDS: Insulin Glargine,Hum.rec.anlog 100 UNIT/ML 10 ML VIAL 90 UNIT SUBCUT (08:02)
[2021-01-02 09:13] LABS: Glucose, Whole Blood 370 mg/dL (60-115)
[2021-01-02] MEDS: Fluticasone Propionate Nasal 16 GM SPRAY 2 SPRAY NOSTRIL-B (09:35)
[2021-01-02] MEDS: Furosemide 200 MG in 0.9 % Sodium Chloride 80 ML IVCONT (11:11)
--- NOTE | 2021-01-02 11:13 | P.PNCA_ITS ---
Subjective Subjective Date of Service: 01/02/21 Principal diagnosis: Afib, CHF, ?Lyme carditis Interval history: Denying any active issues. He is on low-dose of phen ylephrine. On Lasix drip. His [place] rhythm is atrial fibrillation with occasional PVCs. His heart rate is in 60s. Review of Systems Review of Systems Yes all other systems are reviewed and are negative Physical Exam Vital Signs: Last Vital Signs Temp 97.4 F 01/01/21 23:00 Pulse 64 01/02/21 11:00 Resp 18 01/02/21 11:00 BP 97/56 L 01/02/21 11:00 Pulse Ox 94 01/02/21 11:00 Oxygen Flow Rate 2 12/28/20 19:42 Body Mass Index 28.6 GENERAL APPEARANCE: in no acute distress, pleasant. NECK/THYROID: no carotid bruit, right IJ Cordis with temporary pacemaker wire. HEART: no murmurs, irregular rate and rhythm. LUNGS: clear to auscultation bilaterally. ABDOMEN: soft, nontender. EXTREMITIES: 1-2+ edema. PERIPHERAL PULSES: equal. NEUROLOGIC: No gross deficits, AAO X 3 Results Labs and Meds Result diagrams: 01/02/21 05:15 01/02/21 05:15 Lab results: Laboratory Results - last 24 hr 01/01/21 01/01/21 01/01/21 11:15 12:13 16:22 WBC RBC Hgb Hct MCV MCH MCHC RDW Plt Count MPV Immature Gran % (Auto) Neut % (Auto) Lymph % (Auto) [place] % (Auto) Eos % (Auto) Baso % (Auto) Lymph # (Auto) [place] # (Auto) Eos # (Auto) Baso # (Auto) Abs Immat Gran (auto) Absolute Neuts (auto) Absolute Nucleated RBC Nucleated RBC % (auto) Smear Tech's Comments VBG pH VBG pCO2 VBG pO2 VBG HCO3 VBG O2 Saturation VBG Base Excess Sodium Potassium Chloride Carbon Dioxide Anion Gap BUN Creatinine Estim Creat Clear Calc Estimated GFR POC Glucose 325 H 334 H 330 H Random Glucose Calcium Phosphorus Magnesium Total Bilirubin AST ALT Alkaline Phosphatase Total Protein Albumin 01/01/21 01/02/21 01/02/21 20:15 05:15 05:15 WBC 6.9 RBC 3.89 L D Hgb 12.3 L Hct 36.7 L MCV 94.3 MCH 31.6 MCHC 33.5 RDW 15.8 Plt Count 51 L D MPV 13.9 H Immature Gran % (Auto) 3.6 H Neut % (Auto) 51.5 Lymph % (Auto) 37.2 [place] % (Auto) 7.2 Eos % (Auto) 0.4 Baso % (Auto) 0.1 Lymph # (Auto) 2.6 [place] # (Auto) 0.5 Eos # (Auto) 0.0 Baso # (Auto) 0.0 Abs Immat Gran (auto) 0.25 H Absolute Neuts (auto) 3.5 Absolute Nucleated RBC 0.000 Nucleated RBC % (auto) 0.0 Smear Tech's Comments VERIFIED VBG pH VBG pCO2 VBG pO2 VBG HCO3 VBG O2 Saturation VBG Base Excess Sodium 139 Potassium 4.4 D Chloride 99 Carbon Dioxide 29 Anion Gap 15 BUN 42 H Creatinine 1.25 Estim Creat Clear Calc 46.1 Estimated GFR 55 POC Glucose 370 H* Random Glucose 133 H D Calcium 9.5 D Phosphorus 3.7 Magnesium 1.8 Total Bilirubin 1.6 H AST 90 H ALT 90 H Alkaline Phosphatase 116 D Total Protein 6.5 Albumin 3.5 01/02/21 01/02/21 01/02/21 05:18 07:26 07:43 WBC RBC Hgb Hct MCV MCH MCHC RDW Plt Count MPV Immature Gran % (Auto) Neut % (Auto) Lymph % (Auto) [place] % (Auto) Eos % (Auto) Baso % (Auto) Lymph # (Auto) [place] # (Auto) Eos # (Auto) Baso # (Auto) Abs Immat Gran (auto) Absolute Neuts (auto) Absolute Nucleated RBC Nucleated RBC % (auto) Smear Tech's Comments VBG pH 7.47 H VBG pCO2 47 VBG pO2 51 VBG HCO3 34 H VBG O2 Saturation 79.0 VBG Base Excess TNP Sodium Potassium Chloride Carbon Dioxide Anion Gap BUN Creatinine Estim Creat Clear Calc Estimated GFR POC Glucose 118 H 133 H Random Glucose Calcium Phosphorus Magnesium Total Bilirubin AST ALT Alkaline Phosphatase Total Protein Albumin Progress Note: A&P Assessment and plan (1) Anaplasmosis: Status: Acute (2) Symptomatic bradycardia: Status: Acute (3) Persistent atrial fibrillation: Status: Acute (4) PVC (premature ventricular contraction): Status: Acute (5) CHF (congestive heart failure): Status: Acute (6) Bifascicular block: Status: Acute Assessment and Plan: 85-year-old gentleman with background of bifascicular block, diastolic heart failure, recent diagnosis of atrial fibrillation for which he was on Coumadin. He had symptomatic bradycardia. Based on clinical features he was diagnosed with anaplasmosis and started on doxycycline. He also had Lyme titer sent. Temporary pacemaker was placed because of her very bradycardia. I have set him at 50 beats per minute backup rate and his [place] rhythm is atrial fibrillation at 65 beats per minute with occasional premature ventricular complexes. Clinic ally he is improving with doxycycline. On IV diuretics for congestive heart failure. He has peripheral edema but no obvious JVD right now. Will follow along with you. Thank you for allowing me to participate in the care of your patient. Please feel free to contact me if you have any questions. Fall Risk Details Current Medications: Current Medications Generic Name Dose Route Start Last Admin Trade Name Freq PRN Reason Stop Dose Admin Acetaminophen 650 mg 12/29/20 01:42 12/31/20 07:42 Acetaminophen 325 Mg Tablet PO 650 mg Q6H PRN Administration Pain, Mild (Pain Scale 1-3) Albuterol/Ipratropium 3 ml 12/29/20 06:00 01/02/21 05:41 Albuterol/Iprat 2.5/0.5mg 3 Ml Ampul.Neb INHALE Not Given RQ6H LESA Atorvastatin Calcium 40 mg 12/29/20 21:00 01/01/21 20:28 Atorvastatin Calcium 40 Mg Tablet PO 40 mg BEDTIME LESA Administration Docusate Sodium 100 mg 12/29/20 01:42 Docusate Sodium 100 Mg Capsule PO DAILY PRN Constipation Doxycycline Hyclate 100 mg 12/31/20 21:00 01/02/21 08:01 Doxycycline Hyclate 100 Mg Tablet PO 100 mg Q12H LESA Administration Fentanyl 50 mcg 12/31/20 11:11 12/31/20 12:19 Fentanyl Citrate/Pf 100 Mcg/2 Ml Vial IVPUSH 50 mcg Q3H PRN Administration Pain, Moderate (Pain Scale 4-6 Fluticasone Propionate 2 spray 12/29/20 09:00 01/02/21 09:35 Fluticasone Propionate Nasal 16 Gm [place] NOSTRIL-B 2 spray DAILY LESA Administration Phenylephrine HCl 100 mg/ 260 mls @ 0 mls/hr 12/31/20 09:45 01/01/21 18:09 Sodium Chloride IVCONT 0.5 mcg/kg/min .Q0M LESA 6.88 mls/hr Administration Protocol Per Protocol Furosemide 200 mg/ Sodium 100 mls @ 1 mls/hr 12/31/20 10:15 01/02/21 11:11 Chloride IVCONT 2 mg/hr .Q24H LESA 1 mls/hr Administration 2 MG/HR Insulin Glargine 90 unit 12/31/20 09:00 01/02/21 08:02 Insulin Glargine,Hum.Rec.Anlog 100 Unit/Ml 10 Ml Vial SUBCUT 90 unit DAILY LESA Administration Insulin Human Lispro 0 unit 12/29/20 11:30 01/02/21 07:47 Insulin Lispro 100 Unit/Ml 3 Ml Vial SUBCUT Not Given QIDACHS [facility] Protocol Mirabegron 25 mg 12/29/20 09:00 01/02/21 08:01 Mirabegron 25 Mg Tab.Er.24h PO 25 mg DAILY LESA Administration Multivitamins/Vitamin C 1 tab 12/29/20 09:00 01/02/21 08:01 Multivitamin Tablet PO 1 tab DAILY LESA Administration Pt Own Theraworx ( 1 each 12/31/20 15:54 Mag Sulfate [place]) TOPICAL TID PRN muscle ache Ondansetron HCl 4 mg 12/29/20 01:42 Ondansetron Hcl 4 Mg/2 Ml Vial IVPUSH Q8H PRN Nausea and Vomiting Oxycodone HCl 5 mg 12/29/20 08:26 12/31/20 07:44 Oxycodone Hcl Immed Release 5 Mg Tablet PO 5 mg Q6H PRN Administration Pain, Severe (Pain Scale 7-10) Pregabalin 150 mg 12/29/20 09:00 01/02/21 08:01 Pregabalin 150 Mg Capsule PO 150 mg TID LESA Administration Sodium Chloride 3 ml 12/29/20 01:42 01/02/21 07:59 0.9 % Sodium Chloride Flush 3 Ml Syringe IVFLUSH 3 ml QSHIFT LESA Administration Time Spent With Patient Time: Total time spent is greater than 50% in coordination of care (as documented) at patient's floor/unit and/or counseling patient: Time with patient: 15 - 24 minutes
[2021-01-02] MEDS: Albuterol/Iprat 2.5/0.5MG 3 ML AMPUL.NEB INHALE ×2 (11:18→16:56)
[2021-01-02] MEDS: Acetaminophen 325 MG TABLET 650 MG PO (11:23)
[2021-01-02] MEDS: oxyCODONE HCl Immed Release 5 MG TABLET PO (11:23)
[2021-01-02 11:28] LABS: Glucose, Whole Blood 129 mg/dL (60-115)
[2021-01-02] MEDS: Heparin Sodium,Porcine 5,000 UNIT/ML VIAL 5000 UNIT SUBCUT ×2 (11:32→20:38)
[2021-01-02] MEDS: Magnesium Sulfate/H2O 2 GM/50 ML PIGGYBACK IV (12:23)
[2021-01-02] MEDS: Calcium Carbonate 750 MG TAB.CHEW PO (14:36)
--- NOTE | 2021-01-02 14:55 | P.PNCC_ITS ---
Subjective Subjective Date of Service: 01/02/21 Interval History: 85-year-old gentleman with underlying history of CAD, diabetes mellitus, AFib, bifascicular block, prior [place] with recent admission for bradycardia secondary to beta-jas overdose admitted on 12/28/2020 with dyspnea secondary to heart failure exacerbation. Patient has been initially treated with a diuretic, he developed symptomatic bradycardia with ventricular bigeminy necessitating transfer to intensive care unit and placement of a temporary pacer with pressor support. His hospital course has been further been complicated by coagulopathy, transaminitis, and thrombocytopenia. Of note, on 12/31/2020 his blood smear was noted to be positive for Anaplasma and he was started on doxycycline. Lyme antibody screen is positive, other serology is pending. No events overnight. Physical Exam Vital Signs: Vital Signs: Last Vital Signs Temp 98.2 F 01/02/21 13:00 Pulse 75 01/02/21 14:00 Resp 18 01/02/21 14:00 BP 94/56 L 01/02/21 14:00 Pulse Ox 92 01/02/21 14:00 Oxygen Flow Rate 2 12/28/20 19:42 Body Mass Index 28.6 Const: General: no acute distress, alert and awake Eyes: Sclerae: sclerae normal EOM: EOMs intact bilaterally Neck: Neck: Yes no lymphadenopathy, Yes trachea midline and Yes supple Resp: Effort & Inspection: normal respiratory effort and no respiratory distress Auscultation: clear to auscultation bilaterally Cardio: Rate: regular rate Rhythm: regular rhythm Heart sounds: no gallops, no murmurs and no rubs GI: Palpation (GI): Soft to palpation and Other GI palpation findings present ( Nontender) Auscultation: normal bowel sounds Extrem: General: No clubbing, No cyanosis and Yes pedal edema (Trace bilateral) Objective Data Labs CBC & Chem 7: 01/02/21 05:15 01/02/21 05:15 Labs: Laboratory Results - last 24 hr 01/01/21 01/01/21 01/02/21 16:22 20:15 05:15 WBC 6.9 RBC 3.89 L D Hgb 12.3 L Hct 36.7 L MCV 94.3 MCH 31.6 MCHC 33.5 RDW 15.8 Plt Count 51 L D MPV 13.9 H Immature Gran % (Auto) 3.6 H Neut % (Auto) 51.5 Lymph % (Auto) 37.2 Bradley % (Auto) 7.2 Eos % (Auto) 0.4 Baso % (Auto) 0.1 Lymph # (Auto) 2.6 Bradley # (Auto) 0.5 Eos # (Auto) 0.0 Baso # (Auto) 0.0 Abs Immat Gran (auto) 0.25 H Absolute Neuts (auto) 3.5 Absolute Nucleated RBC 0.000 Nucleated RBC % (auto) 0.0 Smear Tech's Comments VERIFIED VBG pH VBG pCO2 VBG pO2 VBG HCO3 VBG O2 Saturation VBG Base Excess Sodium Potassium Chloride Carbon Dioxide Anion Gap BUN Creatinine Estim Creat Clear Calc Estimated GFR POC Glucose 330 H 370 H* Random Glucose Calcium Phosphorus Magnesium Total Bilirubin AST ALT Alkaline Phosphatase Total Protein Albumin 01/02/21 01/02/21 01/02/21 05:15 05:18 07:26 WBC RBC Hgb Hct MCV MCH MCHC RDW Plt Count MPV Immature Gran % (Auto) Neut % (Auto) Lymph % (Auto) Bradley % (Auto) Eos % (Auto) Baso % (Auto) Lymph # (Auto) Bradley # (Auto) Eos # (Auto) Baso # (Auto) Abs Immat Gran (auto) Absolute Neuts (auto) Absolute Nucleated RBC Nucleated RBC % (auto) Smear Tech's Comments VBG pH 7.47 H VBG pCO2 47 VBG pO2 51 VBG HCO3 34 H VBG O2 Saturation 79.0 VBG Base Excess TNP Sodium 139 Potassium 4.4 D Chloride 99 Carbon Dioxide 29 Anion Gap 15 BUN 42 H Creatinine 1.25 Estim Creat Clear Calc 46.1 Estimated GFR 55 POC Glucose 118 H Random Glucose 133 H D Calcium 9.5 D Phosphorus 3.7 Magnesium 1.8 Total Bilirubin 1.6 H AST 90 H ALT 90 H Alkaline Phosphatase 116 D Total Protein 6.5 Albumin 3.5 01/02/21 01/02/21 07:43 11:22 WBC RBC Hgb Hct MCV MCH MCHC RDW Plt Count MPV Immature Gran % (Auto) Neut % (Auto) Lymph % (Auto) Bradley % (Auto) Eos % (Auto) Baso % (Auto) Lymph # (Auto) Bradley # (Auto) Eos # (Auto) Baso # (Auto) Abs Immat Gran (auto) Absolute Neuts (auto) Absolute Nucleated RBC Nucleated RBC % (auto) Smear Tech's Comments VBG pH VBG pCO2 VBG pO2 VBG HCO3 VBG O2 Saturation VBG Base Excess Sodium Potassium Chloride Carbon Dioxide Anion Gap BUN Creatinine Estim Creat Clear Calc Estimated GFR POC Glucose 133 H 129 H Random Glucose Calcium Phosphorus Magnesium Total Bilirubin AST ALT Alkaline Phosphatase Total Protein Albumin Microbiology Microbiology Results: Microbiology 12/28/20 20:55 Blood - Venous Blood Culture - Preliminary No growth after 48 hours. 12/28/20 20:44 Blood - Venous Blood Culture - Preliminary No growth after 48 hours. Progress Note: A&P Assessment and plan (1) Acute kidney injury: Status: Acute Assessment and Plan: Assessment: 85-year-old gentleman with underlying CAD, AFib, bifascicular block admitted with acute on chronic diastolic congestive heart failure exacerbation further complicated by development of symptomatic bradycardia requiring temporary pacer cough and acute anaplasma infection Plan: Neuro: No acute issues. Cardiac: Symptomatic bradycardia, underlying AFib and bifascicular block. Cardiology service care appreciated. Now with temporary pacer, planned for permanent pacer. Exacerbation of underlying diastolic congestive heart failure improving with diuresis. Continue to titrate off pressors as tolerated. Pulmonary: Acute hypoxic respiratory failure secondary to exacerbation of underlying chronic diastolic congestive heart failure, improving with diuresis. Continue to titrate off supplemental oxygen as tolerated. Renal: Acute kidney injury, likely secondary to intravascular volume depletion versus cardiorenal syndrome, improving. Non oliguric. Continue with gentle IV diuresis. Endo: No acute issues. Underlying diabetes mellitus. GI: No acute issues. ID: Anaplasma now on doxycycline. Lyme serologies are pending. Infectious Disease service care appreciated. Continue on doxycycline. 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 Coagulopathy, improving. Psych: No acute issues. Miscellaneous: No acute issues. Prophylaxis: Heparin Diet: Cardiac Critical care time spent: 60 minutes (2) Hepatorenal syndrome: Status: Acute (3) Anaplasmosis: Status: Acute (4) Symptomatic bradycardia: Status: Acute (5) Suspected Lyme disease: Status: Acute (6) Persistent atrial fibrillation: Status: Acute (7) Thrombocytopenia: Status: Acute (8) Acute diastolic (congestive) heart failure: Status: Acute (9) Bifascicular block: Status: Acute (10) Diabetes: Status: Acute Critical Care Time Critical Care Time (minutes): 60
[2021-01-02] MEDS: cefTRIAXone sodium 1 GM in 0.9 % Sodium Chloride 50 ML IV (15:23)
--- NOTE | 2021-01-02 15:40 | P.CNID_ITS ---
History of Present Illness Data of Consult Service Date: 01/02/21 Requesting physician: Kartik Avila Primary Care Provider: Unknown Physician HPI Reason for consult: tickborne illness,heart block He presents to hospital with weakness and falling at home. He was found to be bradycardic and has heart block. He has no fever or chills He reports his dog has ticks,no report of antiparasitic agents applied to dogs PMFSH Past Medical History Medical History Atrial fibrillation Bifascicular block CAD (coronary artery disease) Diabetes HLD (hyperlipidemia) HTN (hypertension) Myocardial infarct, old Pancytopenia Prostate CA Family History Family history: reviewed and not pertinent Social History Social History Household Members: Spouse Housing: House Do you presently have visiting nurse or other home services: Yes (vna qd to check inr/ call md for adjustment of coumadin) Alcohol intake: never Current occupational status: retired [employer] Allergies Allergy/AdvReac Type Severity Reaction Status Date / Time No Known Allergies Allergy Mild N/A Verified 12/28/20 19:51 Active Medications: Current Medications Generic Name Dose Route Start Last Admin Trade Name Freq PRN Reason Stop Dose Admin Acetaminophen 650 mg 12/29/20 01:42 01/02/21 11:23 Acetaminophen 325 Mg Tablet PO 650 mg Q6H PRN Administration Pain, Mild (Pain Scale 1-3) Albuterol/Ipratropium 3 ml 12/29/20 06:00 01/02/21 11:18 Albuterol/Iprat 2.5/0.5mg 3 Ml Ampul.Neb INHALE 3 ml RQ6H LESA Administration Atorvastatin Calcium 40 mg 12/29/20 21:00 01/01/21 20:28 Atorvastatin Calcium 40 Mg Tablet PO 40 mg BEDTIME LESA Administration Calcium Carbonate 750 mg 01/02/21 11:15 01/02/21 14:36 Calcium Carbonate 750 Mg Tab.Chew PO 750 mg Q6H PRN Administration Dyspepsia Docusate Sodium 100 mg 12/29/20 01:42 Docusate Sodium 100 Mg Capsule PO DAILY PRN Constipation Doxycycline Hyclate 100 mg 12/31/20 21:00 01/02/21 08:01 Doxycycline Hyclate 100 Mg Tablet PO 100 mg Q12H LESA Administration Fentanyl 50 mcg 12/31/20 11:11 12/31/20 12:19 Fentanyl Citrate/Pf 100 Mcg/2 Ml Vial IVPUSH 50 mcg Q3H PRN Administration Pain, Moderate (Pain Scale 4-6 Fluticasone Propionate 2 spray 12/29/20 09:00 01/02/21 09:35 Fluticasone Propionate Nasal 16 Gm Procious NOSTRIL-B 2 spray DAILY LESA Administration Heparin Sodium (Porcine) 5,000 unit 01/02/21 11:30 01/02/21 11:32 Heparin Sodium,Porcine 5,000 Unit/Ml Vial SUBCUT 5,000 unit Q8H LESA Administration Phenylephrine HCl 100 mg/ 260 mls @ 0 mls/hr 12/31/20 09:45 01/02/21 15:05 Sodium Chloride IVCONT 0.4 mcg/kg/min .Q0M LESA 5.5 mls/hr Titration Protocol Per Protocol Furosemide 200 mg/ Sodium 100 mls @ 1 mls/hr 12/31/20 10:15 01/02/21 11:11 Chloride IVCONT 2 mg/hr .Q24H LESA 1 mls/hr Administration 2 MG/HR Ceftriaxone Sodium 1 gm/ 50 mls @ 100 mls/hr 01/02/21 16:00 01/02/21 15:23 Sodium Chloride IV 100 mls/hr Q24H LESA Administration Insulin Glargine 90 unit 12/31/20 09:00 01/02/21 08:02 Insulin Glargine,Hum.Rec.Anlog 100 Unit/Ml 10 Ml Vial SUBCUT 90 unit DAILY LESA Administration Insulin Human Lispro 0 unit 12/29/20 11:30 01/02/21 11:22 Insulin Lispro 100 Unit/Ml 3 Ml Vial SUBCUT Not Given QIDACHS [facility] Protocol Mirabegron 25 mg 12/29/20 09:00 01/02/21 08:01 Mirabegron 25 Mg Tab.Er.24h PO 25 mg DAILY LESA Administration Multivitamins/Vitamin C 1 tab 12/29/20 09:00 01/02/21 08:01 Multivitamin Tablet PO 1 tab DAILY LESA Administration Pt Own Theraworx ( 1 each 12/31/20 15:54 Mag Sulfate Procious) TOPICAL TID PRN muscle ache Ondansetron HCl 4 mg 12/29/20 01:42 Ondansetron Hcl 4 Mg/2 Ml Vial IVPUSH Q8H PRN Nausea and Vomiting Oxycodone HCl 5 mg 12/29/20 08:26 01/02/21 11:23 Oxycodone Hcl Immed Release 5 Mg Tablet PO 5 mg Q6H PRN Administration Pain, Severe (Pain Scale 7-10) Pregabalin 150 mg 12/29/20 09:00 01/02/21 14:36 Pregabalin 150 Mg Capsule PO 150 mg TID LESA Administration Sodium Chloride 3 ml 12/29/20 01:42 01/02/21 15:23 0.9 % Sodium Chloride Flush 3 Ml Syringe IVFLUSH 3 ml QSHIFT LESA Administration Home Medications Medication Instructions Recorded Confirmed Last Taken Type Combivent Respimat 1 puff INHALATION QID 12/14/20 12/29/20 Unknown History Myrbetriq 1 tab PO DAILY 12/14/20 12/29/20 Unknown History Tresiba FlexTouch U-100 88 unit SUBCUT DAILY 12/14/20 12/29/20 Unknown History atorvastatin 1 tab PO BEDTIME 12/14/20 12/29/20 12/13/20 History cholecalciferol (vitamin D3) 1 cap PO DAILY 12/14/20 12/29/20 12/14/20 History fluticasone propionate 2 spray INTRANASAL DAILY 12/14/20 12/29/20 Unknown Hi story insulin aspart U-100 [Novolog 1 sliding scale dose SUBCUT 12/14/20 12/29/20 Unknown History U-100 Insulin aspart] USEASDIRECTD losartan 1 tab PO DAILY 12/14/20 12/29/20 Unknown History multivitamin 1 tab PO DAILY 12/14/20 12/29/20 Unknown History pregabalin 1 cap PO TID 12/28/20 12/29/20 Unknown History Physical Exam Vital Signs: Vital Signs: Last Vital Signs Temp 98.2 F 01/02/21 13:00 Pulse 67 01/02/21 15:00 Resp 14 01/02/21 15:00 BP 88/53 L 01/02/21 15:05 Pulse Ox 94 01/02/21 15:00 Oxygen Flow Rate 2 12/28/20 19:42 Body Mass Index 28.6 Const: General: cooperative Orientation/consciousness: patient oriented x3 HENMT: Head: Yes normal to inspection Mouth: Normal oral and palatal mucosa present Eyes: General: appearance normal, both eyes and all related structures Resp: Effort & Inspection: normal respiratory effort Cardio: Rate: bradycardic GI: Palpation (GI): Soft to palpation and nontender Skin: General skin exam: no rashes or lesions noted Neuro: General: patient oriented x3 Extrem: Other: scab from fall right knee Results Labs CBC & Chem 7: 01/07/21 05:31 01/07/21 05:31 Labs: Short CBC 12/31/20 01/02/21 Range/Units 05:06 05:15 WBC 6.9 (4.8-10.8) X10*3/uL Hgb 12.3 L (14.0-18.0) g/dl Hct 36.7 L (42-52) % Plt Count 51 L D (160-400) X10*3/uL Smear Path Review SEE NOTE BMP 01/02/21 05:15 Sodium 139 Potassium 4.4 D Chloride 99 Carbon Dioxide 29 BUN 42 H Creatinine 1.25 Calcium 9.5 D Liver Function 01/02/21 Range/Units 05:15 Total Bilirubin 1.6 H (0.0-1.0) mg/dL AST 90 H (5-37) U/L ALT 90 H (0-40) U/L Alkaline Phosphatase 116 D (39-117) U/L Albumin 3.5 (3.5-5.0) g/dL Microbiology Microbiology Results: Microbiology 12/28/20 20:55 Blood - Venous Blood Culture - Preliminary No growth after 48 hours. 12/28/20 20:44 Blood - Venous Blood Culture - Preliminary No growth after 48 hours. Assessment and Plan (1) Suspected Lyme disease: Status: Acute Would treat with Ceftriaxone while in house He will not need PICC line Finish treatment with po Doxycycline for 14-21 d outpatient If still symptomatic block after 7 days needs permanent pacer for possible other cardiac causes (2) Anaplasmosis: Status: Acute (3) Symptomatic bradycardia:
[2021-01-02 16:15] LABS: C Reactive Protein 6.86 mg/dL (< or = 0.50)
[2021-01-02 16:17] LABS: Glucose, Whole Blood 261 mg/dL (60-115)
[2021-01-02] MEDS: Insulin Lispro 100 UNIT/ML 3 ML VIAL SUBCUT ×2 (16:17→20:38)
[2021-01-02 16:51] LABS: Erythrocyte Sedimentation Rate 40 MM/HR (0-15)
[2021-01-02] MEDS: Phenylephrine HCL 100 MG in 0.9 % Sodium Chloride 250 ML 6.88 MG IVCONT (20:23)
[2021-01-02 20:37] LABS: Glucose, Whole Blood 305 mg/dL (60-115)
[2021-01-02] MEDS: Atorvastatin Calcium 40 MG TABLET PO (20:41)
[2021-01-03] VITALS (22 sets, daily range): BP systolic 104–142; BP diastolic 49–76; PULSE 50–70; RESP 9–21; TEMP 36.2–36.5; O2SAT 90–98; BMI 29.5
[2021-01-03] MEDS: 0.9 % Sodium Chloride Flush 3 ML SYRINGE IVFLUSH ×4 (00:17→23:32)
[2021-01-03] MEDS: Albuterol/Iprat 2.5/0.5MG 3 ML AMPUL.NEB INHALE ×2 (00:26→05:55)
[2021-01-03 06:00] LABS: Hemoglobin 12.1 g/dl (14.0-18.0); PLT ABN DIST 1
[2021-01-03 06:02] LABS: Hematocrit 35.7 % (42-52); Mean Corpuscular HGB Conc 33.9 g/dl (31.0-36.0); Mean Corpuscular Hemoglobin 31.9 pg (27.0-33.0); Mean Corpuscular Volume 94.2 fL (80-98); Mean Platelet Volume 12.9 fL (9.4-12.4); NRBC Pct Auto 0.2 /100WBC (0.0-0.2); Red Blood Count 3.79 X10*6/uL (4.60-5.80); Red Cell Distribution Width 16.2 % (11.0-16.0); White Blood Count 9.5 X10*3/uL (4.8-10.8)
[2021-01-03 06:04] LABS: Platelet Count 68 X10*3/uL (160-400)
[2021-01-03 06:27] LABS: Alanine Aminotransferase 88 U/L (0-40); Albumin Level 3.2 g/dL (3.5-5.0); Alkaline Phosphatase 117 U/L (39-117); Anion Gap 14 (12-20); Aspartate Amino Transferase 94 U/L (5-37); Bilirubin Total 1.2 mg/dL (0.0-1.0); Blood Urea Nitrogen 47 mg/dL (9-16); Calcium 9.2 mg/dL (8.4-10.2); Carbon Dioxide 31 mmol/L (22-29); Chloride 98 mmol/L (96-108); Estimated Glomerular Filt Rate 50; Glucose Random 147 mg/dL (60-115); Magnesium 2.2 mg/dL (1.6-2.6); Phosphorus 5.3 mg/dL (2.7-4.5); Sodium 139 mmol/L (135-145); Total Protein 6.1 g/dL (6.5-8.0)
[2021-01-03 06:34] LABS: Atypical Lymph Absolute Manual 0.3 x10*3/uL; Atypical Lymphs Percent Manual 3 % (0-6); Band Neutrophils Percent 10 % (3-5); Eosinophils Absolute Manual 0.2 X10*3/UL (0.0-0.8); Eosinophils Percent Manual 2 % (0-4); Lymphocytes Absolute Manual 2.9 X10*3/uL (0.6-4.8); Lymphocytes Percent Manual 30 % (20-40); Metamyelocytes Absolute 0.2 X10*3/uL; Metamyelocytes Percent 2 %; Monocytes Absolute Manual 0.7 X10*3/uL (0.0-1.2); Monocytes Percent Manual 7 % (2-11); Neutrophils Absolute Manual 5.3 X10*3/uL (2.2-7.9); Neutrophils Percent Manual 46 % (45-73)
[2021-01-03 06:37] LABS: Platelet Estimate DECREASED (NORMAL); Platelet Morphology Comment NOTED; RBC Morphology NORMAL
[2021-01-03 07:29] LABS: Glucose, Whole Blood 141 mg/dL (60-115)
[2021-01-03] MEDS: Insulin Glargine,Hum.rec.anlog 100 UNIT/ML 10 ML VIAL 90 UNIT SUBCUT (08:13)
[2021-01-03] MEDS: Fluticasone Propionate Nasal 16 GM SPRAY 2 SPRAY NOSTRIL-B (08:14)
--- NOTE | 2021-01-03 08:16 | PC.NURSE ---
Addendum entered by Lina Esquivel RN 01/03/21 18:02: BACK FROM OR AT 1638. LEFT UPPER CHEST INCISION C/D/I - OINTMENT FROM THE OR ON IT. CXR BEDSIDE TO CONFIRM PLACEMENT. A&O X 4, DENIES PAIN. BRE GTT TURNED OFF AT 1648. MAINTAINING MAP > 65. SECOND DOSE OF ALBUMIN GIVEN. RIJ CORDIS REMOVED BY THIS RN. BATHED, BARRIER CREAM, SMALL BM, FAMILY UPDATE THROUGHOUT THE DAY. REPORT GIVEN TO [facility] RN. AWAITING TRANSFER. Addendum entered by Lina Esquivel RN 01/03/21 14:37: OFF UNIT TO OR AT 1435. Addendum entered by Lina Esquivel RN 01/03/21 10:16: LASIX GTT STOPPED AT 0945 PER MD. Original Note: ALL PO MEDS HELD THIS AM PER MD DUE TO NPO STATUS FOR SURGERY LATER THIS AFTERNOON. LANTUS DECREASED TO 50 UNITS PER MD.
[2021-01-03] MEDS: Albumin Human 25 % 100 ML IV ×3 (09:00→20:09)
[2021-01-03 10:48] LABS: INTERNATIONAL NORM RATIO 1.5 (0.9-1.1); Prothrombin Time 17.8 SEC (10.8-13.0)
--- NOTE | 2021-01-03 11:12 | P.PNCA_ITS ---
Subjective Subjective Date of Service: 01/03/21 <YAN Arzola - Last Filed: 01/03/21 12:36> 01/03/21 <Titi Deluca MD - Last Filed: 01/03/21 16:53> Principal diagnosis: Afib, CHF, ?Lyme carditis, symptomatic chemo, temp PPM <YAN Arzola - Last Filed: 01/03/21 12:36> Interval history: Cardiology follow up for the above. Seen at 0830. Today he is observed awake, resting in bed. He denies feeling sob, no cough. No chest pains, heart palpitation, dizziness. Waiting for breakfast, denies nausea. Mena in place. Legs without significant edema. Temporary pacer wire in place right IJ. <YAN Arzola - Last Filed: 01/03/21 12:36> Review of Systems Review of Systems as above <YAN Arzola - Last Filed: 01/03/21 12:36> Yes all other systems are reviewed and are negative <YAN Arzola - Last Filed: 01/03/21 12:36> Physical Exam Vital Signs: Last Vital Signs Temp 97.1 F 01/03/21 07:00 Pulse 50 01/03/21 10:15 Resp 12 01/03/21 10:00 BP 128/62 01/03/21 10:15 Pulse Ox 90 L 01/03/21 10:00 Oxygen Flow Rate 2 12/28/20 19:42 Body Mass Index 29.5 <YAN Arzola - Last Filed: 01/03/21 12:36> Const General: cooperative, no acute distress, alert and awake <YAN Arzola - Last Filed: 01/03/21 12:36> Orientation/consciousness: patient oriented x3 <YAN Arzola Last Filed: 01/03/21 12:36> Neck Other: Introducer and temp pacer wire right IJ - <YAN Arzola - Last Filed: 01/03/21 12:36> Neck: Yes normal visual inspection and Yes no JVD <YAN Arzola - Last Filed: 01/03/21 12:36> Resp Other: faint rales noted left base <Yary Carlin NPC - Last Filed: 01/03/21 12:36> Effort & Inspection: normal respiratory effort, able to speak in complete sentences and not labored <Yary Carlin NPC - Last Filed: 01/03/21 12:36> Auscultation: clear to auscultation bilaterally, no rhonchi and no wheezes <[facility] Carlin [facility] - Last Filed: 01/03/21 12:36> Cardio Other: heart tones irregular <Yary Tesfaye [facility] - Last Filed: 01/03/21 12:36> Palpation: normal PMI <Yary Carlin [facility] - Last Filed: 01/03/21 12:36> Rate: regular rate <Yary Carlin [facility] - Last Filed: 01/03/21 12:36> Heart sounds: S1 normal heart sound present and S2 normal heart sound present <Yary Carlin [facility] - Last Filed: 01/03/21 12:36> Peripheral pulses: Peripheral pulses 2+ throughout <Yary Carlin [facility] - Last Filed: 01/03/21 12:36> GI Inspection: Yes normal to inspection <Yary Carlin [facility] - Last Filed: 01/03/21 12:36> Neuro General: patient oriented x3 <Yary Carlin [facility] - Last Filed: 01/03/21 12:36> Extrem General: Yes normal to inspection and No edema <Yary Carlin [facility] - Last Filed: 01/03/21 12:36> Results Labs and Meds Result diagrams: : 01/03/21 05:48 01/03/21 05:48 <Yary Carlin [facility] - Last Filed: 01/03/21 12:36> Lab results: Laboratory Results - last 24 hr 01/02/21 01/02/21 01/02/21 11:22 15:39 15:39 WBC RBC Hgb Hct MCV MCH MCHC RDW Plt Count MPV Immature Gran % (Auto) Neut % (Auto) Lymph % (Auto) [place] % (Auto) Eos % (Auto) Baso % (Auto) Lymph # (Auto) [place] # (Auto) Eos # (Auto) Baso # (Auto) Abs Immat Gran (auto) Absolute Neuts (auto) Absolute Nucleated RBC Nucleated RBC % (auto) Neutrophils % (Manual) Band Neutrophils % Lymphocytes % (Manual) Atypical Lymphs % (Man) Monocytes % (Manual) Eosinophils % (Manual) Metamyelocytes % Abs Neuts (Manual) Lymphocytes # (Manual) Atyp Lymphs # (Manual) Monocytes # (Manual) Eosinophils # (Manual) Metamyelocytes # Platelet Estimate Plt Morphology Comment RBC Morphology ESR 40 H PT INR Sodium Potassium Chloride Carbon Dioxide Anion Gap BUN Creatinine Estim Creat Clear Calc Estimated GFR POC Glucose 129 H Random Glucose Calcium Phosphorus Magnesium Total Bilirubin AST ALT Alkaline Phosphatase C-Reactive Protein 6.86 H Total Protein Albumin 01/02/21 01/02/21 01/03/21 16:14 20:33 05:48 WBC 9.5 RBC 3.79 L Hgb 12.1 L Hct 35.7 L MCV 94.2 MCH 31.9 MCHC 33.9 RDW 16.2 H Plt Count 68 L D MPV 12.9 H Immature Gran % (Auto) Cancelled Neut % (Auto) Cancelled Lymph % (Auto) Cancelled [place] % (Auto) Cancelled Eos % (Auto) Cancelled Baso % (Auto) Cancelled Lymph # (Auto) Cancelled [place] # (Auto) Cancelled Eos # (Auto) Cancelled Baso # (Auto) Cancelled Abs Immat Gran (auto) Cancelled Absolute Neuts (auto) Cancelled Absolute Nucleated RBC 0.020 H Nucleated RBC % (auto) 0.2 Neutrophils % (Manual) 46 Band Neutrophils % 10 H Lymphocytes % (Manual) 30 Atypical Lymphs % (Man) 3 Monocytes % (Manual) 7 Eosinophils % (Manual) 2 Metamyelocytes % 2 Abs Neuts (Manual) 5.3 Lymphocytes # (Manual) 2.9 Atyp Lymphs # (Manual) 0.3 Monocytes # (Manual) 0.7 Eosinophils # (Manual) 0.2 Metamyelocytes # 0.2 Platelet Estimate DECREASED Plt Morphology Comment NOTED RBC Morphology NORMAL ESR PT INR Sodium Potassium Chloride Carbon Dioxide Anion Gap BUN Creatinine Estim Creat Clear Calc Estimated GFR POC Glucose 261 H 305 H Random Glucose Calcium Phosphorus Magnesium Total Bilirubin AST ALT Alkaline Phosphatase C-Reactive Protein Total Protein Albumin 01/03/21 01/03/21 01/03/21 05:48 07:25 10:31 WBC RBC Hgb Hct MCV MCH MCHC RDW Plt Count MPV Immature Gran % (Auto) Neut % (Auto) Lymph % (Auto) [place] % (Auto) Eos % (Auto) Baso % (Auto) Lymph # (Auto) [place] # (Auto) Eos # (Auto) Baso # (Auto) Abs Immat Gran (auto) Absolute Neuts (auto) Absolute Nucleated RBC Nucleated RBC % (auto) Neutrophils % (Manual) Band Neutrophils % Lymphocytes % (Manual) Atypical Lymphs % (Man) Monocytes % (Manual) Eosinophils % (Manual) Metamyelocytes % Abs Neuts (Manual) Lymphocytes # (Manual) Atyp Lymphs # (Manual) Monocytes # (Manual) Eosinophils # (Manual) Metamyelocytes # Platelet Estimate Plt Morphology Comment RBC Morphology ESR PT 17.8 H D INR 1.5 H Sodium 139 Potassium 4.0 Chloride 98 Carbon Dioxide 31 H Anion Gap 14 BUN 47 H Creatinine 1.36 Estim Creat Clear Calc 43.0 Estimated GFR 50 POC Glucose 141 H Random Glucose 147 H Calcium 9.2 Phosphorus 5.3 H Magnesium 2.2 Total Bilirubin 1.2 H AST 94 H ALT 88 H Alkaline Phosphatase 117 C-Reactive Protein Total Protein 6.1 L Albumin 3.2 L <MOODY ArzolaC - Last Filed: 01/03/21 12:36> Progress Note: A&P Assessment and plan (1) Symptomatic bradycardia: Status: Acute <MOODY ArzolaC - Last Filed: 01/03/21 12:36> Assessment and Plan: Newer finding of afib and has bifasicular block. prior to admit note indicate chemo with BB use. This admit for CHF, then had symptomatic bradycardia, requiring Temporary PPM placement and ICU care. 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 Lyme titer is pending. With his underlying AF, slow ventricular response, symptomatic chemo - plan is for placement of a dual chamber pacemaker today with Dr Rivas. We will follow. <MOODY ArzolaC - Last Filed: 01/03/21 12:36> Patient with bradycardia and with temporary transvenous pacemaker set at 50 beats per minute still pacing frequently. Patient has underlying bifascicular block. Had become hypotensive. I think it is reasonable to proceed with pacemaker placement. He will also most likely require rhythm control approach in the future given that he has developed heart failure, although this could be secondary to systemic infection with an appliance pulses. At this point time agree with permanent pacemaker placement, dual chamber to be programmed in DDIR at 60 beats per minute. He has low platelet count and thoracic surgery is aware of the same. <Titi Deluca MD - Last Filed: 01/03/21 16:53> (2) Persistent atrial fibrillation: Status: Acute <YAN Arzola - Last Filed: 01/03/21 12:36> Assessment and Plan: Slow ventricular response. Symptomatic chemo this admit and has te mporary PPM in place. Tele shows Afib with intermittent V paced rhythm, PVCs, rates 50s- 60s. On no rate slowing medications. Coumadin on hold. Has thrombocytopenia with Plt currently 68, slowly improving. No signs of bleeding. Eventual restart of anticoagulation when PLt > 80/ medically appropriate. Recommend use of NOAC, instead of coumadin. Going forward we will plan to pursue rhythm control for this afib, not just rate control. <YAN Arzola - Last Filed: 01/03/21 12:36> Persistent atrial fibrillation, recent diagnosis with mild left atrial enlargement. Developed heart failure syndrome with systemic illness. Most likely in future will require rhythm control approach. This will require therapy with antiarrhythmic drugs which would cause bradycardia. Therefore I think permanent pacemaker above with is indicated. Once pacemaker is placed and platelet count improves, we will start him on oral anticoagulant therapy with direct oral anticoagulant agent such as Eliquis 5 mg b.i.d.. <Titi Deluca MD - Last Filed: 01/03/21 16:53> (3) Anaplasmosis: Problem details: Treat with 10-14 d po Doxycycline Watch sun exposure <YAN Arzola - Last Filed: 01/03/21 12:36> Status: Acute <YAN Arzola - Last Filed: 01/03/21 12:36> Assessment and Plan: On Doxycycline - being followed by intenvist and ID <YAN Arzola - Last Filed: 01/03/21 12:36> (4) Suspected Lyme disease: Status: Acute <YAN Arzola - Last Filed: 01/03/21 12:36> (5) CHF exacerbation: Status: Acute <YAN Arzola - Last Filed: 01/03/21 12:36> Assessment and Plan: HFpEF present on admit. Has been di[place] [id number] cc since admit. On exam he does have faint rales in left base, no JVD, trace edema. He denies feeling sob this am. On lasix drip 2mg/hr for diuresis. Was not on lasix at home. HF may be related to his AF and/ or bradycardia. PPM being placed. Then recommend change to PO diuretic. Continue with strict I+O monitoring, close monitoring of electrolyte and kidney function. <YAN Arzola - Last Filed: 01/03/21 12:36> (6) PVC (premature ventricular contraction): Status: Acute <YAN Arzola - Last Filed: 01/03/21 12:36> (7) Bifascicular block: Status: Acute <YAN Arzola - Last Filed: 01/03/21 12:36> (8) CHF (congestive heart failure): Status: Acute <YAN Arzola - Last Filed: 01/03/21 12:36> Assessment and Plan: CHF improving. Still having intermittent low oxygen saturation which probably could be related to underlying atelectasis. And output chart. Can switch to oral Lasix /Bumex starting tomorrow. Pursue rhythm control approach once his systemic infection is well treated. <Titi Deluca MD - Last Filed: 01/03/21 16:53> Fall Risk Details Current Medications: Current Medications Generic Name Dose Route Start Last Admin Trade Name Freq PRN Reason Stop Dose Admin Acetaminophen 650 mg 12/29/20 01:42 01/02/21 11:23 Acetaminophen 325 Mg Tablet PO 650 mg Q6H PRN Administration Pain, Mild (Pain Scale 1-3) Albuterol/Ipratropium 3 ml 12/29/20 06:00 01/03/21 05:55 Albuterol/Iprat 2.5/0.5mg 3 Ml Ampul.Neb INHALE 3 ml RQ6H LESA Administration Atorvastatin Calcium 40 mg 12/29/20 21:00 01/02/21 20:41 Atorvastatin Calcium 40 Mg Tablet PO 40 mg BEDTIME LESA Administration Calcium Carbonate 750 mg 01/02/21 11:15 01/02/21 14:36 Calcium Carbonate 750 Mg Tab.Chew PO 750 mg Q6H PRN Administration Dyspepsia Docusate Sodium 100 mg 12/29/20 01:42 Docusate Sodium 100 Mg Capsule PO DAILY PRN Constipation Doxycycline Hyclate 100 mg 12/31/20 21:00 01/03/21 08:14 Doxycycline Hyclate 100 Mg Tablet PO Not Given Q12H LESA Fentanyl 50 mcg 12/31/20 11:11 12/31/20 12:19 Fentanyl Citrate/Pf 100 Mcg/2 Ml Vial IVPUSH 50 mcg Q3H PRN Administration Pain, Moderate (Pain Scale 4-6 Fluticasone Propionate 2 spray 12/29/20 09:00 01/03/21 08:14 Fluticasone Propionate Nasal 16 Gm [place] NOSTRIL-B 2 spray DAILY LESA Administration Heparin Sodium (Porcine) 5,000 unit 01/02/21 11:30 01/03/21 04:37 Heparin Sodium,Porcine 5,000 Unit/Ml Vial SUBCUT Not Given Q8H LESA Phenylephrine HCl 100 mg/ 260 mls @ 0 mls/hr 12/31/20 09:45 01/03/21 10:15 Sodium Chloride IVCONT 0.5 mcg/kg/min .Q0M LESA 6.88 mls/hr Titration Protocol Per Protocol Ceftriaxone Sodium 1 gm/ 50 mls @ 100 mls/hr 01/02/21 16:00 01/02/21 15:59 Sodium Chloride IV Infused Q24H [facility] Infusion Albumin Human 100 mls @ 100 mls/hr 01/03/21 08:45 01/03/21 10:07 Kedbumin 25 % IV 01/04/21 03:44 Infused Q6H L[facility]A Infusion Insulin Glargine 90 unit 12/31/20 09:00 01/03/21 08:13 Insulin Glargine,Hum.Rec.Anlog 100 Unit/Ml 10 Ml Vial SUBCUT 50 unit DAILY LESA Administration Insulin Human Lispro 0 unit 12/29/20 11:30 01/03/21 07:33 Insulin Lispro 100 Unit/Ml 3 Ml Vial SUBCUT Not Given QIDACHS [facility] Protocol Mirabegron 25 mg 12/29/20 09:00 01/03/21 08:14 Mirabegron 25 Mg Tab.Er.24h PO Not Given DAILY [facility] Multivitamins/Vitamin C 1 tab 12/29/20 09:00 01/03/21 08:14 Multivitamin Tablet PO Not Given DAILY [facility] Pt Own Theraworx ( 1 each 12/31/20 15:54 Mag Sulfate [place]) TOPICAL TID PRN muscle ache Ondansetron HCl 4 mg 12/29/20 01:42 Ondansetron Hcl 4 Mg/2 Ml Vial IVPUSH Q8H PRN Nausea and Vomiting Pregabalin 150 mg 12/29/20 09:00 01/03/21 08:14 Pregabalin 150 Mg Capsule PO Not Given TID [facility] Sodium Chloride 3 ml 12/29/20 01:42 01/03/21 08:13 0.9 % Sodium Chloride Flush 3 Ml Syringe IVFLUSH 3 ml QSHIFT [facility] Administration <YAN Arzola - Last Filed: 01/03/21 12:36> Time Spent With Patient Time: Total time spent is greater than 50% in coordination of care (as documented) at patient's floor/unit and/or counseling patient: <YAN Arzola - Last Filed: 01/03/21 12:36> Time with patient: 15 - 24 minutes <YAN Arzola - Last Filed: 01/03/21 12:36>
[2021-01-03 11:38] LABS: Glucose, Whole Blood 147 mg/dL (60-115)
--- NOTE | 2021-01-03 13:39 | MHC.SHP ---
Pre-Procedural Eval Section B Chief Complaint: CHF exacerbation Allergies: Allergies Allergy/AdvReac Type Severity Reaction Status Date / Time No Known Allergies Allergy Mild N/A Verified 12/28/20 19:51 Plan I have reviewed the history and physical and performed a pertinent physical examination on my patient. No changes have occurred unless specified.
--- NOTE | 2021-01-03 13:52 | P.CONAN_ITS ---
FORMERLY [facility] Past Medical History Medical History Atrial fibrillation Bifascicular block CAD (coronary artery disease) Diabetes HLD (hyperlipidemia) HTN (hypertension) Myocardial infarct, old Pancytopenia Prostate CA Social History Social History Household Members: Spouse Housing: House Do you presently have visiting nurse or other home services: Yes (vna qd to check inr/ call md for adjustment of coumadin) Alcohol intake: never Smoking Status: Never smoker Use of substances other than those prescribed or required for medical reasons: No Currently Displaying Signs/Symptoms of Drug Intoxication Withdrawal: No Have you been hit, kicked, punched, or otherwise hurt by someone within the past year? 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 Advance Directives: No Advance Directives Information Provided: Yes ( Mckenzie - HCP) Do you have thoughts of harming others: None Do you have a plan to hurt others: No Plan Recently lost weight without trying: Unsure Poor oral hygiene: No Current occupational status: retired Meds Allergies Allergy/AdvReac Type Severity Reaction Status Date / Time No Known Allergies Allergy Mild N/A Verified 12/28/20 19:51 Home Medications Medication Instructions Recorded Confirmed Last Taken Type Combivent Respimat 1 puff INHALATION QID 12/14/20 12/29/20 Unknown History Myrbetriq 1 tab PO DAILY 12/14/20 12/29/20 Unknown History Tresiba FlexTouch U-100 88 unit SUBCUT DAILY 12/14/20 12/29/20 Unknown History atorvastatin 1 tab PO BEDTIME 12/14/20 12/29/20 12/13/20 History cholecalciferol (vitamin D3) 1 cap PO DAILY 12/14/20 12/29/20 12/14/20 History fluticasone propionate 2 spray INTRANASAL DAILY 12/14/20 12/29/20 Unknown History insulin aspart U-100 [Novolog 1 sliding scale dose SUBCUT 12/14/20 12/29/20 Unknown History U-100 Insulin aspart] USEASDIRECTD losartan 1 tab PO DAILY 12/14/20 12/29/20 Unknown History multivitamin 1 tab PO DAILY 12/14/20 12/29/20 Unknown History pregabalin 1 cap PO TID 12/28/20 12/29/20 Unknown History warfarin 4 mg PO DAILY@1700 12/28/20 12/29/20 Unknown History Exam Airway Mallampati Class: III TM Dist: >3cm Neck ROM: Full Loose/Missing/Broken Teeth: No Heart: RRR Lungs: CTA Assessment and Plan Assessment Anesthesia Assessment: Anesthesia Plan Discussed and Chart Reviewed Final Anesthetic Review NPO: Yes ASA Class: III Final Preanesthetic Review: Meds/Allgs Chart Reviewed, Consent Obtained/Reviewed and Anes Risks/Benef Reviewed Patient Risk: Intermediate Procedure Risk: Intermediate Anesthetic Plan Anesthetic Plan: MAC: Disposition: Standard PACU
--- NOTE | 2021-01-03 14:26 | PM.CCPN ---
Subjective Subjective Date of Service: 01/03/21 Interval History: 85-year-old gentleman with underlying history of CAD, diabetes mellitus, AFib, bifascicular block, prior [place] with recent admission for bradycardia secondary to beta-jas overdose admitted on 12/28/2020 with dyspnea secondary to heart failure exacerbation. Patient has been initially treated with a diuretic, he developed symptomatic bradycardia with ventricular bigeminy necessitating transfer to intensive care unit and placement of a temporary pacer with pressor support. His hospital course has been further been complicated by coagulopathy, transaminitis, and thrombocytopenia. Of note, on 12/31/2020 his blood smear was noted to be positive for Anaplasma and he was started on doxycycline. Lyme antibody screen is positive, other serology is pending. Planned for permanent pacemaker today. No events overnight. Physical Exam Vital Signs: Vital Signs: Last Vital Signs Temp 97.6 F 01/03/21 11:00 Pulse 58 01/03/21 14:00 Resp 11 L 01/03/21 14:00 BP 104/61 01/03/21 14:00 Pulse Ox 93 01/03/21 14:00 Oxygen Flow Rate 2 12/28/20 19:42 Body Mass Index 29.5 Const: General: no acute distress, alert and awake Eyes: Sclerae: sclerae normal EOM: EOMs intact bilaterally Neck: Neck: Yes no lymphadenopathy, Yes trachea midline and Yes supple Resp: Effort & Inspection: normal respiratory effort and no respiratory distress Auscultation: clear to auscultation bilaterally Cardio: Rate: regular rate Rhythm: regular rhythm Heart sounds: no gallops, no murmurs and no rubs GI: Palpation (GI): Soft to palpation and Other GI palpation findings present ( Nontender) Auscultation: normal bowel sounds Extrem: General: No clubbing, No cyanosis and Yes pedal edema (Trace bilateral) Objective Data Labs CBC & Chem 7: 01/03/21 05:48 01/03/21 05:48 Labs: Laboratory Results - last 24 hr 01/02/21 01/02/21 01/02/21 15:39 15:39 16:14 WBC RBC Hgb Hct MCV MCH MCHC RDW Plt Count MPV Immature Gran % (Auto) Neut % (Auto) Lymph % (Auto) [place] % (Auto) Eos % (Auto) Baso % (Auto) Lymph # (Auto) [place] # (Auto) Eos # (Auto) Baso # (Auto) Abs Immat Gran (auto) Absolute Neuts (auto) Absolute Nucleated RBC Nucleated RBC % (auto) Neutrophils % (Manual) Band Neutrophils % Lymphocytes % (Manual) Atypical Lymphs % (Man) Monocytes % (Manual) Eosinophils % (Manual) Metamyelocytes % Abs Neuts (Manual) Lymphocytes # (Manual) Atyp Lymphs # (Manual) Monocytes # (Manual) Eosinophils # (Manual) Metamyelocytes # Platelet Estimate Plt Morphology Comment RBC Morphology ESR 40 H PT INR Sodium Potassium Chloride Carbon Dioxide Anion Gap BUN Creatinine Estim Creat Clear Calc Estimated GFR POC Glucose 261 H Random Glucose Calcium Phosphorus Magnesium Total Bilirubin AST ALT Alkaline Phosphatase C-Reactive Protein 6.86 H Total Protein Albumin Blood Type Antibody Screen 01/02/21 01/03/21 01/03/21 20:33 05:48 05:48 WBC 9.5 RBC 3.79 L Hgb 12.1 L Hct 35.7 L MCV 94.2 MCH 31.9 MCHC 33.9 RDW 16.2 H Plt Count 68 L D MPV 12.9 H Immature Gran % (Auto) Cancelled Neut % (Auto) Cancelled Lymph % (Auto) Cancelled [place] % (Auto) Cancelled Eos % (Auto) Cancelled Baso % (Auto) Cancelled Lymph # (Auto) Cancelled [place] # (Auto) Cancelled Eos # (Auto) Cancelled Baso # (Auto) Cancelled Abs Immat Gran (auto) Cancelled Absolute Neuts (auto) Cancelled Absolute Nucleated RBC 0.020 H Nucleated RBC % (auto) 0.2 Neutrophils % (Manual) 46 Band Neutrophils % 10 H Lymphocytes % (Manual) 30 Atypical Lymphs % (Man) 3 Monocytes % (Manual) 7 Eosinophils % (Manual) 2 Metamyelocytes % 2 Abs Neuts (Manual) 5.3 Lymphocytes # (Manual) 2.9 Atyp Lymphs # (Manual) 0.3 Monocytes # (Manual) 0.7 Eosinophils # (Manual) 0.2 Metamyelocytes # 0.2 Platelet Estimate DECREASED Plt Morphology Comment NOTED RBC Morphology NORMAL ESR PT INR Sodium 139 Potassium 4.0 Chloride 98 Carbon Dioxide 31 H Anion Gap 14 BUN 47 H Creatinine 1.36 Estim Creat Clear Calc 43.0 Estimated GFR 50 POC Glucose 305 H Random Glucose 147 H Calcium 9.2 Phosphorus 5.3 H Magnesium 2.2 Total Bilirubin 1.2 H AST 94 H ALT 88 H Alkaline Phosphatase 117 C-Reactive Protein Total Protein 6.1 L Albumin 3.2 L Blood Type Antibody Screen 01/03/21 01/03/21 01/03/21 07:25 10:31 10:31 WBC RBC Hgb Hct MCV MCH MCHC RDW Plt Count MPV Immature Gran % (Auto) Neut % (Auto) Lymph % (Auto) [place] % (Auto) Eos % (Auto) Baso % (Auto) Lymph # (Auto) [place] # (Auto) Eos # (Auto) Baso # (Auto) Abs Immat Gran (auto) Absolute Neuts (auto) Absolute Nucleated RBC Nucleated RBC % (auto) Neutrophils % (Manual) Band Neutrophils % Lymphocytes % (Manual) Atypical Lymphs % (Man) Monocytes % (Manual) Eosinophils % (Manual) Metamyelocytes % Abs Neuts (Manual) Lymphocytes # (Manual) Atyp Lymphs # (Manual) Monocytes # (Manual) Eosinophils # (Manual) Metamyelocytes # Platelet Estimate Plt Morphology Comment RBC Morphology ESR PT 17.8 H D INR 1.5 H Sodium Potassium Chloride Carbon Dioxide Anion Gap BUN Creatinine Estim Creat Clear Calc Estimated GFR POC Glucose 141 H Random Glucose Calcium Phosphorus Magnesium Total Bilirubin AST ALT Alkaline Phosphatase C-Reactive Protein Total Protein Albumin Blood Type B Negative Antibody Screen NEGATIVE 01/03/21 11:33 WBC RBC Hgb Hct MCV MCH MCHC RDW Plt Count MPV Immature Gran % (Auto) Neut % (Auto) Lymph % (Auto) [place] % (Auto) Eos % (Auto) Baso % (Auto) Lymph # (Auto) [place] # (Auto) Eos # (Auto) Baso # (Auto) Abs Immat Gran (auto) Absolute Neuts (auto) Absolute Nucleated RBC Nucleated RBC % (auto) Neutrophils % (Manual) Band Neutrophils % Lymphocytes % (Manual) Atypical Lymphs % (Man) Monocytes % (Manual) Eosinophils % (Manual) Metamyelocytes % Abs Neuts (Manual) Lymphocytes # (Manual) Atyp Lymphs # (Manual) Monocytes # (Manual) Eosinophils # (Manual) Metamyelocytes # Platelet Estimate Plt Morphology Comment RBC Morphology ESR PT INR Sodium Potassium Chloride Carbon Dioxide Anion Gap BUN Creatinine Estim Creat Clear Calc Estimated GFR POC Glucose 147 H Random Glucose Calcium Phosphorus Magnesium Total Bilirubin AST ALT Alkaline Phosphatase C-Reactive Protein Total Protein Albumin Blood Type Antibody Screen Microbiology Microbiology Results: Microbiology 12/28/20 20:55 Blood - Venous Blood Culture - Final No growth after 5 days. 12/28/20 20:44 Blood - Venous Blood Culture - Final No growth after 5 days. Progress Note: A&P Assessment and plan (1) Diabetes: Status: Acute Assessment and Plan: Assessment: 85-year-old gentleman with underlying CAD, AFib, bifascicular block admitted with acute on chronic diastolic congestive heart failure exacerbation further complicated by development of symptomatic bradycardia requiring temporary pacer and acute anaplasma/Lyme infection Plan: Neuro: No acute issues. Cardiac: Symptomatic bradycardia, underlying AFib and bifascicular block. Cardiology service care appreciated. Now with temporary pacer, planned for permanent pacer today. Exacerbation of underlying diastolic congestive heart failure improved with diuresis. Continue to titrate off pressors as tolerated. Pulmonary: Acute hypoxic respiratory failure secondary to exacerbation of underlying chronic diastolic congestive heart failure, improving with diuresis. Continue to titrate off supplemental oxygen as tolerated. Renal: Acute kidney injury, likely secondary to intravascular volume depletion versus cardiorenal syndrome, improving. Non oliguric. Endo: No acute issues. Underlying diabetes mellitus. GI: No acute issues. ID: Anaplasma/Lyme on ceftriaxone while inpatient, to complete total of 21 days of therapy, at discharge can be switched to doxycycline. Infectious Disease service care appreciated. 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 Coagulopathy, resolved. Psych: No acute issues. Miscellaneous: No acute issues. Prophylaxis: Heparin Diet: NPO for procedure Critical care time spent: 60 minutes (2) Suspected Lyme disease: Status: Acute (3) Hepatorenal syndrome: Status: Acute (4) Anaplasmosis: Problem details: Treat with 10-14 d po Doxycycline Watch sun exposure Status: Acute (5) Symptomatic bradycardia: Status: Acute (6) Persistent atrial fibrillation: Status: Acute (7) Thrombocytopenia: Status: Acute (8) CHF (congestive heart failure): Status: Acute Critical Care Time Critical Care Time (minutes): 60
[2021-01-03] MEDS: cefTRIAXone sodium 1 GM in 0.9 % Sodium Chloride 50 ML IV (15:00)
--- NOTE | 2021-01-03 15:32 | MHC.CM.PN ---
Pt going to OR today for a dual chamber pacer placement after procedure being on hold for various medical complications: Pt also found to be + for Lyme dz and is on doxycycline. Family has reported increased falls at home with weakness: unsure if this is secondary to Lyme or cardiac issues. Pt and family are non committal re: placement but it seems like pt would benefit from strength/gait/balance improvement following d/c. Pt will also have limited use of left arm d/c pacer. CM will reapproach pt and family after his surgery and will request a PT eval for a more detailed assessment of his limitations and potential for improvement. Pt is active with [facility] and has been re-referred.
--- NOTE | 2021-01-03 16:50 | W.PM.OPN ---
Operative Note Operative Note Date of Service: 01/03/21 Narrative: Preoperative diagnosis: Sick sinus syndrome Postoperative diagnosis: Same Operation: Placement of dual-chamber permanent pacemaker with fluoroscopic guidance Surgeon: Jose Miguel Rivas MD Specimens: None EBL: 5 cc Operative findings: The pacemaker placed was a [employer]urity MRI serial [id number]. The atrial lead was a [employer] serial number [id number]. The ventricular lead was a [employer] serial number [id number]. Parameters in the right atrial lead sensing was 1.5 atrial flutter with impedance of 507. In the ventricular lead threshold was 0.6 volts at 0.5 milliseconds with an impedance of 520 Ohms. Patient tolerated procedure well. Operation in detail: The patient was brought to the operating room, placed supine on the operating room table, anesthesia moderate of ices were placed, and the patient was gently sedated. A time-out was performed confirming the correct patient site and procedure. After injection of local anesthetic, a 3 cm incision was made in the left infraclavicular region and carried down to the pectoralis fascia with electrocautery. The patient was then placed in Trendelenburg and an 18 gauge needle was used to access subclavian vein on the 1st take. And a wire was placed into the right atrium under fluoroscopic guidance. A 2nd 18 gauge needle was then used to access the subclavian vein again on the 1st ache and a wire was placed under fluoroscopic guidance and parked in the right atrium. The patient was then taken out of Trendelenburg and a pocket was formed using blunt and electrocautery dissection. The 1st 6 [place] sheath was then placed over wire and the wire and dilator were removed. The ventricular lead was then placed through the sheath and parked in the right atrium and the peel-away sheath was removed. After several attempts using a curved stylet we were eventually able to access the right ventricle and the tip of the lead was positioned at the right ventricular apex. The endocardial screw was deployed and the lead was tested with excellent parameters above. This lead was then secured with silk sutures to the pectoralis fascia. The 2nd 6 [place] sheath was then placed over the 2nd wire and a wire dilator removed. The atrial lead was then placed and parked in the right atrium. AJ stylet was used to position this in the right atrial appendage. The endocardial screws deployed and the lead was tested with excellent parameters above. This lead was also secured with silk sutures to the pectoralis fascia. The pocket was then copiously irrigated with antibiotic solution. The leads were then placed in their appropriate receptacles and the pacemaker was tested again with excellent parameters. The temporary pacing wire was then removed under fluoroscopic guidance and none of the leads changed position. The generator and excess lead was then placed into the pocket. The wound was then closed with a deep running 3-0 Vicryl suture followed by running 3-0 Vicryl suture and Dermabond glue in the skin. The patient was then brought back to the ICU in stable condition.
[2021-01-03] MEDS: Pregabalin 150 MG CAPSULE PO ×2 (16:52→20:08)
--- NOTE | 2021-01-03 17:08 | PM.CNGS ---
History of Present Illness Consult details Consult date: 01/03/21 Reason for consult: other Requesting physician: Kartik Avila Narrative: 85-year-old male had a syncopal episode who presented the hospital with a heart rate in the 30s and a blood pressure in the 60s on beta-blockade due to new onset atrial fibrillation and on Coumadin supratherapeutic. While these additional issues were being sorted out, a temporary pacing wire was placed and I was consulted for a permanent pacemaker dual-chamber. Review of Systems Constitutional: Constitutional: Reports no additional constitutional complaints ENT: Reports system reviewed and no additional complaints, except as documented Cardiovascular: Cardiovascular: Reports as per HPI and Reports no additional cardiovascular complaints Respiratory: Respiratory: Reports as per HPI Comments: Complains of a cough with deep breath Gastrointestinal: Gastrointestinal: Reports no additional gastrointestinal complaints Musculoskeletal: Musculoskeletal: Reports no additional musculoskeletal complaints Neurologic: Reports system reviewed and no additional complaints, except as documented Hematologic/Lymphatic: Hematologic/Lymphatic: Reports no additional hematologic/lymphatic complaints PMFSH Past Medical History Medical History Atrial fibrillation Bifascicular block CAD (coronary artery disease) Diabetes HLD (hyperlipidemia) HTN (hypertension) Myocardial infarct, old Pancytopenia Prostate CA Family History Family history: reviewed and not pertinent Social History Social History Household Members: Spouse Housing: House Do you presently have visiting nurse or other home services: Yes (vna qd to check inr/ call md for adjustment of coumadin) Alcohol intake: never Smoking Status: Never smoker Use of substances other than those prescribed or required for medical reasons: No Currently Displaying Signs/Symptoms of Drug Intoxication Withdrawal: No Have you been hit, kicked, punched, or otherwise hurt by someone within the past year? 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 for transfusion 1995 Advance Directives: No Advance Directives Information Provided: Yes ( Mckenzie - HCP) Do you have thoughts of harming others: None Do you have a plan to hurt others: No Plan Recently lost weight without trying: Unsure Poor oral hygiene: No Current occupational status: retired Meds Allergies Allergy/AdvReac Type Severity Reaction Status Date / Time No Known Allergies Allergy Mild N/A Verified 12/28/20 19:51 Active Medications: Current Medications Generic Name Dose Route Start Last Admin Trade Name Freq PRN Reason Stop Dose Admin Acetaminophen 650 mg 12/29/20 01:42 01/02/21 11:23 Acetaminophen 325 Mg Tablet PO 650 mg Q6H PRN Administration Pain, Mild (Pain Scale 1-3) Atorvastatin Calcium 40 mg 12/29/20 21:00 01/02/21 20:41 Atorvastatin Calcium 40 Mg Tablet PO 40 mg BEDTIME LESA Administration Calcium Carbonate 750 mg 01/02/21 11:15 01/02/21 14:36 Calcium Carbonate 750 Mg Tab.Chew PO 750 mg Q6H PRN Administration Dyspepsia Docusate Sodium 100 mg 12/29/20 01:42 Docusate Sodium 100 Mg Capsule PO DAILY PRN Constipation Fentanyl 50 mcg 12/31/20 11:11 12/31/20 12:19 Fentanyl Citrate/Pf 100 Mcg/2 Ml Vial IVPUSH 50 mcg Q3H PRN Administration Pain, Moderate (Pain Scale 4-6 Fluticasone Propionate 2 spray 12/29/20 09:00 01/03/21 08:14 Fluticasone Propionate Nasal 16 Gm [place] NOSTRIL-B 2 spray DAILY LESA Administration Heparin Sodium (Porcine) 5,000 unit 01/02/21 11:30 01/03/21 11:13 Heparin Sodium,Porcine 5,000 Unit/Ml Vial SUBCUT Not Given Q8H LSEA Phenylephrine HCl 100 mg/ 260 mls @ 0 mls/hr 12/31/20 09:45 01/03/21 16:48 Sodium Chloride IVCONT 0 mcg/kg/min .Q0M LESA 0 mls/hr Titration Protocol Per Protocol Ceftriaxone Sodium 1 gm/ 50 mls @ 100 mls/hr 01/02/21 16:00 01/03/21 16:45 Sodium Chloride IV Infused Q24H LESA Infusion Albumin Human 100 mls @ 100 mls/hr 01/03/21 08:45 01/03/21 16:53 Kedbumin 25 % IV 01/04/21 03:44 100 mls/hr Q6H LESA Administration Insulin Glargine 90 unit 12/31/20 09:00 01/03/21 08:13 Insulin Glargine,Hum.Rec.Anlog 100 Unit/Ml 10 Ml Vial SUBCUT 50 unit DAILY [facility] Administration Insulin Human Lispro 0 unit 12/29/20 11:30 01/03/21 16:53 Insulin Lispro 100 Unit/Ml 3 Ml Vial SUBCUT Not Given QIDACHS [facility] Protocol Mirabegron 25 mg 12/29/20 09:00 01/03/21 08:14 Mirabegron 25 Mg Tab.Er.24h PO Not Given DAILY [facility] Multivitamins/Vitamin C 1 tab 12/29/20 09:00 01/03/21 08:14 Multivitamin Tablet PO Not Given DAILY [facility] Pt Own Theraworx ( 1 each 12/31/20 15:54 Mag Sulfate [place]) TOPICAL TID PRN muscle ache Ondansetron HCl 4 mg 12/29/20 01:42 Ondansetron Hcl 4 Mg/2 Ml Vial IVPUSH Q8H PRN Nausea and Vomiting Pregabalin 150 mg 12/29/20 09:00 01/03/21 16:52 Pregabalin 150 Mg Capsule PO 150 mg TID [facility] Administration Sodium Chloride 3 ml 12/29/20 01:42 01/03/21 16:54 0.9 % Sodium Chloride Flush 3 Ml Syringe IVFLUSH 3 ml QSHIFT [facility] Administration Home Medications Medication Instructions Recorded Confirmed Last Taken Type Combivent Respimat 1 puff INHALATION QID 12/14/20 12/29/20 Unknown History Myrbetriq 1 tab PO DAILY 12/14/20 12/29/20 Unknown History Tresiba FlexTouch U-100 88 unit SUBCUT DAILY 12/14/20 12/29/20 Unknown History atorvastatin 1 tab PO BEDTIME 12/14/20 12/29/20 12/13/20 History cholecalciferol (vitamin D3) 1 cap PO DAILY 12/14/20 12/29/20 12/14/20 History fluticasone propionate 2 spray INTRANASAL DAILY 12/14/20 12/29/20 Unknown History insulin aspart U-100 [Novolog 1 sliding scale dose SUBCUT 12/14/20 12/29/20 Unknown History U-100 Insulin aspart] USEASDIRECTD losartan 1 tab PO DAILY 12/14/20 12/29/20 Unknown History multivitamin 1 tab PO DAILY 12/14/20 12/29/20 Unknown History pregabalin 1 cap PO TID 12/28/20 12/29/20 Unknown History warfarin 4 mg PO DAILY@1700 12/28/20 12/29/20 Unknown History Physical Exam Vital Signs: Vital Signs: Last Vital Signs Temp 97.4 F 01/03/21 16:45 Pulse 66 01/03/21 17:00 Resp 14 01/03/21 17:00 BP 142/76 H 01/03/21 17:00 Pulse Ox 98 01/03/21 17:00 Oxygen Flow Rate 2 12/28/20 19:42 Body Mass Index 29.5 General: No acute distress HEENT: Moist mucous membranes, normocephalic, pupils equal round and reactive to light. Neck: No thyromegaly, supple, no JVD Lymph: No cervical, supraclavicular, or other lymphadenopathy Chest: No chest wall abnormalities or deformities Heart: Regular rate and rhythm Lungs: Clear to auscultation bilaterally Abdomen: Soft, nontender, normal bowel sounds Extremities: No edema, cyanosis, or clubbing. Full range of motion Neuro: Grossly intact, alert and oriented x3, and nonfocal Skin: Warm and dry no rashes he does have bruising over both Affect: Normal Results Labs Result diagrams: 01/03/21 05:48 01/03/21 05:48 Labs: Abnormal lab results 01/02/21 01/03/21 01/03/21 Range/Units 20:33 05:48 05:48 RBC 3.79 L (4.60-5.80) X10*6/uL Hgb 12.1 L (14.0-18.0) g/dl Hct 35.7 L (42-52) % RDW 16.2 H (11.0-16.0) % Plt Count 68 L D (160-400) X10*3/uL MPV 12.9 H (9.4-12.4) fL Absolute Nucleated RBC 0.020 H (0.0-0.012) X10*3/uL Band Neutrophils % 10 H (3-5) % PT (10.8-13.0) SEC INR (0.9-1.1) Carbon Dioxide 31 H (22-29) mmol/L BUN 47 H (9-16) mg/dL POC Glucose 305 H (60-115) mg/dL Random Glucose 147 H (60-115) mg/dL Phosphorus 5.3 H (2.7-4.5) mg/dL Total Bilirubin 1.2 H (0.0-1.0) mg/dL AST 94 H (5-37) U/L ALT 88 H (0-40) U/L Total Protein 6.1 L (6.5-8.0) g/dL Albumin 3.2 L (3.5-5.0) g/dL 01/03/21 01/03/21 01/03/21 Range/Units 07:25 10:31 11:33 RBC (4.60-5.80) X10*6/uL Hgb (14.0-18.0) g/dl Hct (42-52) % RDW (11.0-16.0) % Plt Count (160-400) X10*3/uL MPV (9.4-12.4) fL Absolute Nucleated RBC (0.0-0.012) X10*3/uL Band Neutrophils % (3-5) % PT 17.8 H D (10.8-13.0) SEC INR 1.5 H (0.9-1.1) Carbon Dioxide (22-29) mmol/L BUN (9-16) mg/dL POC Glucose 141 H 147 H (60-115) mg/dL Random Glucose (60-115) mg/dL Phosphorus (2.7-4.5) mg/dL Total Bilirubin (0.0-1.0) mg/dL AST (5-37) U/L ALT (0-40) U/L Total Protein (6.5-8.0) g/dL Albumin (3.5-5.0) g/dL Short CBC 01/03/21 Range/Units 05:48 WBC 9.5 (4.8-10.8) X10*3/uL Hgb 12.1 L (14.0-18.0) g/dl Hct 35.7 L (42-52) % Plt Count 68 L D (160-400) X10*3/uL BMP 01/03/21 05:48 Sodium 139 Potassium 4.0 Chloride 98 Carbon Dioxide 31 H BUN 47 H Creatinine 1.36 Calcium 9.2 Liver Function 01/03/21 Range/Units 05:48 Total Bilirubin 1.2 H (0.0-1.0) mg/dL AST 94 H (5-37) U/L ALT 88 H (0-40) U/L Alkaline Phosphatase 117 (39-117) U/L Albumin 3.2 L (3.5-5.0) g/dL Urine 12/28/20 Range/Units 19:57 Urine Color DARK YELLOW Urine Appearance CLEAR Urine pH 5.5 (5.0-8.0) Ur Specific [place] 1.025 (1.005-1.025) Urine Protein TRACE (NEG-TRACE) MG/DL Urine Glucose (UA) NEG (NEG) MG/DL All other labs normal. Assessment and Plan (1) Suspected Lyme disease: Status: Acute (2) Symptomatic bradycardia: Status: Acute 85-year-old gentleman with atrial fibrillation whose INR has come down now to 1.5 and platelets have increased up to 68 now appropriate for a dual-chamber permanent pacemaker. I had a long discussion with him and his [id number] about the risks, benefits, and alternatives of a dual-chamber permanent pacemaker which they both understood and agreed to proceed. (3) Persistent atrial fibrillation: Status: Acute Dual-chamber placed with the prospect of rate control in the future.
[2021-01-03 17:13] LABS: Glucose, Whole Blood 88 mg/dL (60-115)
[2021-01-03] MEDS: Heparin Sodium,Porcine 5,000 UNIT/ML VIAL 5000 UNIT SUBCUT (20:07)
[2021-01-03] MEDS: Atorvastatin Calcium 40 MG TABLET PO (20:08)
[2021-01-03] MEDS: Acetaminophen 325 MG TABLET 650 MG PO (20:08)
[2021-01-03 20:18] LABS: Glucose, Whole Blood 258 mg/dL (60-115)
[2021-01-03] MEDS: Insulin Lispro 100 UNIT/ML 3 ML VIAL SUBCUT (20:30)
[2021-01-04] VITALS (8 sets, daily range): BP systolic 94–132; BP diastolic 49–61; PULSE 51–80; RESP 14–20; TEMP 36–37.1; O2SAT 93–98; BMI 30.5
[2021-01-04] MEDS: traMADoL HCL 50 MG TABLET 25 MG PO ×2 (00:45→12:23)
[2021-01-04] MEDS: Albumin Human 25 % 100 ML IV (03:31)
[2021-01-04] MEDS: Heparin Sodium,Porcine 5,000 UNIT/ML VIAL 5000 UNIT SUBCUT ×3 (03:37→19:14)
[2021-01-04 06:25] LABS: MANUAL DIFF FLAG NO
[2021-01-04 06:32] LABS: Basophils Percent Auto 0.2 % (0-2); Eosinophils Absolute Auto 0.1 X10*3/uL (0.0-0.4); Eosinophils Percent Auto 2.2 % (0-4); Hematocrit 28.5 % (42-52); Hemoglobin 9.4 g/dl (14.0-18.0); Imm Gran Abs Auto 0.31 X10*3/uL (0.00-0.03); Imm Gran Pct Auto 4.9 % (0.0-0.4); Lymphocytes Absolute Auto 2.3 X10*3/uL (1.2-4.9); Lymphocytes Percent Auto 37.2 % (20-40); Mean Corpuscular Hemoglobin 31.5 pg (27.0-33.0); Mean Corpuscular Volume 95.6 fL (80-98); Mean Platelet Volume 12.4 fL (9.4-12.4); Monocytes Absolute Auto 0.5 X10*3/uL (0.1-1.2); Monocytes Percent Auto 7.3 % (2-11); Neutrophils Percent Auto 48.2 % (45-73); Red Blood Count 2.98 X10*6/uL (4.60-5.80); Red Cell Distribution Width 15.9 % (11.0-16.0)
[2021-01-04 06:39] LABS: Platelet Count 67 X10*3/uL (160-400)
[2021-01-04 07:09] LABS: Glucose, Whole Blood 200 mg/dL (60-115)
[2021-01-04 07:34] LABS: Albumin Level 3.8 g/dL (3.5-5.0); Anion Gap 13 (12-20); Blood Urea Nitrogen 52 mg/dL (9-16); Calcium 8.8 mg/dL (8.4-10.2); Carbon Dioxide 28 mmol/L (22-29); Chloride 100 mmol/L (96-108); Creatinine Clr Calc Pharmacy 38.8; Estimated Glomerular Filt Rate 44; Glucose Random 210 mg/dL (60-115); Magnesium 2.3 mg/dL (1.6-2.6); Phosphorus 3.2 mg/dL (2.7-4.5); Potassium 3.7 mmol/L (3.3-5.1); Sodium 137 mmol/L (135-145)
[2021-01-04 08:04] LABS: White Blood Count 6.3 X10*3/uL (4.8-10.8)
[2021-01-04] MEDS: Insulin Lispro 100 UNIT/ML 3 ML VIAL SUBCUT ×4 (08:08→20:35)
[2021-01-04] MEDS: Insulin Glargine,Hum.rec.anlog 100 UNIT/ML 10 ML VIAL 90 UNIT SUBCUT (08:08)
[2021-01-04] MEDS: 0.9 % Sodium Chloride Flush 3 ML SYRINGE IVFLUSH ×3 (08:08→20:44)
[2021-01-04] MEDS: Fluticasone Propionate Nasal 16 GM SPRAY 2 SPRAY NOSTRIL-B (08:13)
[2021-01-04] MEDS: Acetaminophen 325 MG TABLET 650 MG PO ×2 (08:50→19:11)
[2021-01-04] MEDS: Multivitamin TABLET 1 TAB PO (08:50)
[2021-01-04] MEDS: Mirabegron 25 MG TAB.ER.24H PO (08:50)
[2021-01-04] MEDS: Pregabalin 150 MG CAPSULE PO ×3 (08:50→20:36)
[2021-01-04 09:40] LABS: B Type Natriuretic Peptide 125 pg/mL (<100)
--- NOTE | 2021-01-04 09:58 | P.PNIM_ITS ---
Subjective Subjective Date of Service: 01/04/21 Interval History: Downgraded from ICU 01/03 POD1 s/p PM placement Reporting left shoulder pain, no significant pain at site of PM Dry cough with deep breath, no SOB. ROS: CV: No chest pain, palpitations PULM: No shortness of breath, dry cough with deep inspiration Constitutional: No fever, no chills GI: No abdominal pain constant nausea, vomiting, diarrhea MS: reports left shoulder pain Physical Exam Vital Signs: Vital Signs: Last Vital Signs Temp 97.6 F 01/04/21 07:50 Pulse 53 01/04/21 07:50 Resp 18 01/04/21 07:50 BP 107/51 L 01/04/21 07:50 Pulse Ox 93 01/04/21 07:50 Oxygen Flow Rate 2 12/28/20 19:42 Body Mass Index 30.5 Const: Nutritional Appearance: well nourished Orientation/consciousness: patient oriented x3 HENMT: Head: Yes normocephalic and Yes atraumatic Eyes: Sclerae: sclerae normal Chest: Other: PM site clean, no erythema or drainage Resp: Effort & Inspection: normal respiratory effort and no respiratory distress Auscultation: clear to auscultation bilaterally Cardio: Rate: regular rate Rhythm: regular rhythm GI: Palpation (GI): Soft to palpation and nontender : Other: renteria Neuro: General: patient oriented x3 Cranial nerves: Yes CN's II-XII intact bilaterally and Yes Bilaterally intact EOM present Extrem: Other: no edema Objective Data Current Medications Generic Name Dose Route Start Last Admin Trade Name Freq PRN Reason Stop Dose Admin Acetaminophen 650 mg 12/29/20 01:42 01/04/21 08:50 Acetaminophen 325 Mg Tablet PO 650 mg Q6H PRN Administration Pain, Mild (Pain Scale 1-3) Atorvastatin Calcium 40 mg 12/29/20 21:00 01/03/21 20:08 Atorvastatin Calcium 40 Mg Tablet PO 40 mg BEDTIME [facility]A Administration Calcium Carbonate 750 mg 01/02/21 11:15 01/02/21 14:36 Calcium Carbonate 750 Mg Tab.Chew PO 750 mg Q6H PRN Administration Dyspepsia Docusate Sodium 100 mg 12/29/20 01:42 Docusate Sodium 100 Mg Capsule PO DAILY PRN Constipation Fentanyl 50 mcg 12/31/20 11:11 12/31/20 12:19 Fentanyl Citrate/Pf 100 Mcg/2 Ml Vial IVPUSH 50 mcg Q3H PRN Administration Pain, Moderate (Pain Scale 4-6 Fluticasone Propionate 2 spray 12/29/20 09:00 01/04/21 08:13 Fluticasone Propionate Nasal 16 Gm [place] NOSTRIL-B 2 spray DAILY LESA Administration Heparin Sodium (Porcine) 5,000 unit 01/02/21 11:30 01/04/21 03:37 Heparin Sodium,Porcine 5,000 Unit/Ml Vial SUBCUT 5,000 unit Q8H L[facility]A Administration Ceftriaxone Sodium 1 gm/ 50 mls @ 100 mls/hr 01/02/21 16:00 01/03/21 16:45 Sodium Chloride IV Infused Q24H [facility]A Infusion Insulin Glargine 90 unit 12/31/20 09:00 01/04/21 08:08 Insulin Glargine,Hum.Rec.Anlog 100 Unit/Ml 10 Ml Vial SUBCUT 90 unit DAILY LESA Administration Insulin Human Lispro 0 unit 12/29/20 11:30 01/04/21 08:08 Insulin Lispro 100 Unit/Ml 3 Ml Vial SUBCUT 2 unit QIDACHS [facility] Administration Protocol Mirabegron 25 mg 12/29/20 09:00 01/04/21 08:50 Mirabegron 25 Mg Tab.Er.24h PO 25 mg DAILY LESA Administration Multivitamins/Vitamin C 1 tab 12/29/20 09:00 01/04/21 08:50 Multivitamin Tablet PO 1 tab DAILY LESA Administration Pt Own Theraworx ( 1 each 12/31/20 15:54 Mag Sulfate [place]) TOPICAL TID PRN muscle ache Ondansetron HCl 4 mg 12/29/20 01:42 Ondansetron Hcl 4 Mg/2 Ml Vial IVPUSH Q8H PRN Nausea and Vomiting Pregabalin 150 mg 12/29/20 09:00 01/04/21 08:50 Pregabalin 150 Mg Capsule PO 150 mg TID [facility]A Administration Sodium Chloride 3 ml 12/29/20 01:42 01/04/21 08:08 0.9 % Sodium Chloride Flush 3 Ml Syringe IVFLUSH 3 ml QSHIFT [facility] Administration Labs CBC & Chem 7: 01/04/21 05:58 01/04/21 05:58 Microbiology Microbiology Results: Microbiology 12/28/20 20:55 Blood - Venous Blood Culture - Final No growth after 5 days. 12/28/20 20:44 Blood - Venous Blood Culture - Final No growth after 5 days. Assessment and Plan (1) Suspected Lyme disease: Status: Acute (2) Bifascicular block: Status: Acute (3) Symptomatic bradycardia: Problem details: Patient is POD #1, s/p dual-chamber permanent pacemaker due to a heart rate in the 30s with BP in the 60s who is symptomatic with syncopal episodes. Does complain of some left-sided shoulder pain. Denies any shortness of breath and continues to have left arm remaining in the sling which must remain in place for 48 hours after surgery. Post op instructions for pace maker insertion. Please call your doctor or come back to the emergency room should any new symptoms arise. You will receive a courtesy call from [facility] 24-48 hours after discharge. Avoid: For the next 6 weeks avoid any reching or lifting above you head with the are on the effected side. For the next 6 weeks no pulling or pushing anything greater than 10 pounds. For the next 48 hrs on the arm on your effected side you must keep arm in sling. After 48 hrs you may continue to use the sling when doing activities however be sure to perform sideways range of motion to avoid a shoulder stiffness. WATCH FOR: - Monitor all incisions for increased redness, swelling, open areas, or drainage. - Monitor for increased air under the skin around the incision or chest (feels like Rice Krispy cereal when touched). - Monitor for fever, chills, shortness of breath, chest pain, severe abdominal pain, persistent nausea/vomiting, severe changes in bowel or bladder habits. - Call the thoracic surgery office to schedule a followup appointment with Dr. Rivas for 2 weeks at [facility]. Phone number: [phone] Status: Acute Assessment and Plan: This is an 85-year-old male w/ history of CAD, diabetes mellitus, AFib, bifascicular block, prior SD with recent admission for bradycardia secondary to beta-jas overdose admitted on 12/28/2020 with dyspnea secondary to heart failure exacerbation. Patient has been initially treated with a diuretic, he developed symptomatic bradycardia with ventricular bigeminy necessitating transfer to ICU for placement of a temporary pacer with pressor support. His hospital course has been further been complicated by coagulopathy, transaminitis, and thrombocytopenia. Of note, on 12/31/2020 his blood smear was noted to be positive for Anaplasma and he was started on doxycycline. Lyme antibody screen is positive, other serology is pending. s/p PPM 01/03 and then downgraded to IMC. symptomatic bradycardia h/o underlying afib/bifasicular block POD1 s/p PPM PM interrogated this a.m. 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 not on lasix at home ?precipitated by bradycardia appears euvolemic at this time, creatinine trending up -hold off on further diuresis at this time -monitor fluid status closely -cardiology following -losartan on hold for ALPA ALPA Creatitine trending up to 1.53 -avoid nephrotoxins -follow BMP Afib s/p PM -will need AC when H/H stable and platelets above 80 -previously on coumdin, cardiology rec Eliquis instead -cardiology following DM -Continue Lantus -SSI, POCs CAD asa previously d/c due to throbocytopenia metoprolol previously d/c due to bradycardia -Continue statin Leukopenia. Resolved. Dispo: Will need PT eval and likely STR DVT ppx - heparin; will need full AC for afib when medically appropriate Attending: Dr. marte
[2021-01-04 10:00] LABS: 18 KD (IgG) Band NON-REACTIVE; 23 KD (IgG) Band NON-REACTIVE; 23 KD (IgM) Band REACTIVE; 28 KD (IgG) Band REACTIVE; 30 KD (IgG) Band NON-REACTIVE; 39 KD (IgM) Band REACTIVE; 41 KD (IgM) Band NON-REACTIVE; 45 KD (IgG) Band NON-REACTIVE; 58 KD (IgG) Band REACTIVE; 66 KD (IgG) Band NON-REACTIVE; 93 KD (IgG) Band NON-REACTIVE; Lyme IgG Blot Interp NEGATIVE (NEGATIVE); Lyme IgM Blot Interp POSITIVE (NEGATIVE)
--- NOTE | 2021-01-04 10:27 | HO.POSTANES ---
Post Anesthesia Evaluation Post Anesthesia Evaluation Vital Signs: Vital Signs Temp Pulse Resp BP Pulse Ox 01/04/21 07:50 97.6 F 53 18 107/51 L 93 01/04/21 04:00 98.2 F 54 16 114/56 L 98 01/04/21 00:00 98.7 F 71 16 115/51 L 97 Anesthesia: Monitored Mental Status: Awake Pain Control: Satisfactory Nausea/Vomiting: None Hydration: Adequate Anesthesia-Related Issues: No Anes. Related Issues
--- NOTE | 2021-01-04 11:19 | PM.PNTS ---
Subjective Subjective Date of Service: 01/04/21 Interval history: Patient is POD #1, s/p dual-chamber permanent pacemaker due to a heart rate in the 30s with BP in the 60s who is symptomatic with syncopal episodes. Does complain of some left-sided shoulder pain. Denies any shortness of breath and continues to have left arm remaining in the sling which must remain in place for 48 hours after surgery. Physical Exam Vital Signs: Vital Signs: Last Vital Signs Temp 97.2 F 01/04/21 10:50 Pulse 68 01/04/21 10:50 Resp 20 01/04/21 10:50 BP 109/49 L 01/04/21 10:50 Pulse Ox 94 01/04/21 10:50 Oxygen Flow Rate 2 12/28/20 19:42 Body Mass Index 30.5 Const: General: no acute distress Orientation/consciousness: patient oriented x3 HENMT: Head: Yes normal to inspection Eyes: General: appearance normal, both eyes and all related structures Neck: Other: trachea midline with no subcu air along neck Chest: Other: Left sided pacer incision remain intact with no evidence of hematoma, or infection. No subcu air along chest wall and BS are CTA Cardio: Jugular venous distension: no JVD Rate: regular rate Rhythm: regular rhythm Heart sounds: S1 normal heart sound present and S2 normal heart sound present GI: Inspection: Yes normal to inspection and No distended Auscultation: normal bowel sounds Neuro: General: patient oriented x3 Extrem: Other: IVY extremity remains in sling Progress Note: A&P Assessment and plan (1) Symptomatic bradycardia: Problem details: Patient is POD #1, s/p dual-chamber permanent pacemaker due to a heart rate in the 30s with BP in the 60s who is symptomatic with syncopal episodes. Does complain of some left-sided shoulder pain. Denies any shortness of breath and continues to have left arm remaining in the sling which must remain in place for 48 hours after surgery. Post op instructions for pace maker insertion. Please call your doctor or come back to the emergency room should any new symptoms arise. You will receive a courtesy call from [facility] 24-48 hours after discharge. Avoid: For the next 6 weeks avoid any reching or lifting above you head with the are on the effected side. For the next 6 weeks no pulling or pushing anything greater than 10 pounds. For the next 48 hrs on the arm on your effected side you must keep arm in sling. After 48 hrs you may continue to use the sling when doing activities however be sure to perform sideways range of motion to avoid a shoulder stiffness. WATCH FOR: - Monitor all incisions for increased redness, swelling, open areas, or drainage. - Monitor for increased air under the skin around the incision or chest (feels like Rice Krispy cereal when touched). - Monitor for fever, chills, shortness of breath, chest pain, severe abdominal pain, persistent nausea/vomiting, severe changes in bowel or bladder habits. - Call the thoracic surgery office to schedule a followup appointment with Dr. Rivas for 2 weeks at [facility]. Phone number: [phone] Status: Acute Fall Risk Details Current Medications: Current Medications Generic Name Dose Route Start Last Admin Trade Name Freq PRN Reason Stop Dose Admin Acetaminophen 650 mg 12/29/20 01:42 01/04/21 08:50 Acetaminophen 325 Mg Tablet PO 650 mg Q6H PRN Administration Pain, Mild (Pain Scale 1-3) Atorvastatin Calcium 40 mg 12/29/20 21:00 01/03/21 20:08 Atorvastatin Calcium 40 Mg Tablet PO 40 mg BEDTIME LESA Administration Calcium Carbonate 750 mg 01/02/21 11:15 01/02/21 14:36 Calcium Carbonate 750 Mg Tab.Chew PO 750 mg Q6H PRN Administration Dyspepsia Docusate Sodium 100 mg 12/29/20 01:42 Docusate Sodium 100 Mg Capsule PO DAILY PRN Constipation Fluticasone Propionate 2 spray 12/29/20 09:00 01/04/21 08:13 Fluticasone Propionate Nasal 16 Gm [place] NOSTRIL-B 2 spray DAILY LESA Administration Heparin Sodium (Porcine) 5,000 unit 01/02/21 11:30 01/04/21 03:37 Heparin Sodium,Porcine 5,000 Unit/Ml Vial SUBCUT 5,000 unit Q8H [facility] Administration Ceftriaxone Sodium 1 gm/ 50 mls @ 100 mls/hr 01/02/21 16:00 01/03/21 16:45 Sodium Chloride IV Infused Q24H [facility] Infusion Insulin Glargine 90 unit 12/31/20 09:00 01/04/21 08:08 Insulin Glargine,Hum.Rec.Anlog 100 Unit/Ml 10 Ml Vial SUBCUT 90 unit DAILY [facility]A Administration Insulin Human Lispro 0 unit 12/29/20 11:30 01/04/21 08:08 Insulin Lispro 100 Unit/Ml 3 Ml Vial SUBCUT 2 unit QIDACHS [facility] Administration Protocol Mirabegron 25 mg 12/29/20 09:00 01/04/21 08:50 Mirabegron 25 Mg Tab.Er.24h PO 25 mg DAILY [facility]A Administration Multivitamins/Vitamin C 1 tab 12/29/20 09:00 01/04/21 08:50 Multivitamin Tablet PO 1 tab DAILY LESA Administration Pt Own Theraworx ( 1 each 12/31/20 15:54 Mag Sulfate [place]) TOPICAL TID PRN muscle ache Ondansetron HCl 4 mg 12/29/20 01:42 Ondansetron Hcl 4 Mg/2 Ml Vial IVPUSH Q8H PRN Nausea and Vomiting Pregabalin 150 mg 12/29/20 09:00 01/04/21 08:50 Pregabalin 150 Mg Capsule PO 150 mg TID [facility] Administration Sodium Chloride 3 ml 12/29/20 01:42 01/04/21 08:08 0.9 % Sodium Chloride Flush 3 Ml Syringe IVFLUSH 3 ml QSHIFT [facility] Administration Time Spent With Patient Time: Total time spent is greater than 50% in coordination of care (as documented) at patient's floor/unit and/or counseling patient: Time with patient: 15 - 24 minutes
[2021-01-04 11:57] LABS: Hematocrit 29.9 % (42-52); Mean Corpuscular HGB Conc 33.4 g/dl (31.0-36.0); Mean Corpuscular Hemoglobin 32.3 pg (27.0-33.0); Mean Corpuscular Volume 96.5 fL (80-98); Mean Platelet Volume 12.4 fL (9.4-12.4); White Blood Count 6.3 X10*3/uL (4.8-10.8)
[2021-01-04 12:00] LABS: Glucose, Whole Blood 264 mg/dL (60-115)
[2021-01-04 12:11] LABS: Platelet Count 64 X10*3/uL (160-400)
[2021-01-04 14:15] LABS: Lyme Abs Screen POSITIVE
--- NOTE | 2021-01-04 14:51 | PM.PNCARD ---
Subjective Subjective Date of Service: 01/04/21 Principal diagnosis: Afib, CHF, ?Lyme carditis, symptomatic chemo, s/p PPM Interval history: Cardiology follow up for the above. Seen at 0830. Today he reports discomfort at PPM site and into left shoulder and neck. He slept well after receiving pain medication during the night. He has no other chest area discomfort, no shortness of breath at rest, heart palpitations, dizziness. No nausea or vomiting. He he does have some mild lower leg edema. Review of Systems Review of Systems As above Yes all other systems are reviewed and are negative Physical Exam Vital Signs: Last Vital Signs Temp 97.2 F 01/04/21 10:50 Pulse 68 01/04/21 10:50 Resp 20 01/04/21 10:50 BP 109/49 L 01/04/21 10:50 Pulse Ox 94 01/04/21 10:50 Oxygen Flow Rate 2 12/28/20 19:42 Body Mass Index 30.5 Const General: cooperative, no acute distress, alert and awake Orientation/consciousness: patient oriented x3 Neck Neck: Yes normal visual inspection and Yes no JVD Chest Other: Pacemaker site left chest with mild swelling, mild ecchymosis, fully intact with no drainage, tenderness to palpation of the area around device Resp Effort & Inspection: normal respiratory effort, able to speak in complete sentences and not labored Auscultation: clear to auscultation bilaterally, no crackles, no rales, no rhonchi and no wheezes Cardio Palpation: normal PMI Rate: regular rate Heart sounds: S1 normal heart sound present and S2 normal heart sound present Peripheral pulses: Peripheral pulses 2+ throughout GI Inspection: Yes normal to inspection Neuro General: patient oriented x3 Extrem Other: Soft pitting edema in the lateral aspect of each foot General: Yes normal to inspection Results Labs and Meds Result diagrams: 01/04/21 11:46 01/04/21 05:58 Lab results: Laboratory Results - last 24 hr 12/31/20 01/03/21 01/03/21 15:31 16:52 19:41 WBC RBC Hgb Hct MCV MCH MCHC RDW Plt Count MPV Immature Gran % (Auto) Neut % (Auto) Lymph % (Auto) Wilkinson % (Auto) Eos % (Auto) Baso % (Auto) Lymph # (Auto) [place]kinson # (Auto) Eos # (Auto) Baso # (Auto) Abs Immat Gran (auto) Absolute Neuts (auto) Absolute Nucleated RBC Nucleated RBC % (auto) Sodium Potassium Chloride Carbon Dioxide Anion Gap BUN Creatinine Estim Creat Clear Calc Estimated GFR POC Glucose 88 258 H Random Glucose Calcium Phosphorus Magnesium B-Natriuretic Peptide Albumin Lyme Screen IgG & IgM POSITIVE Lyme IgG 18 kDa Band NON-REACTIVE Lyme IgG 23 kDa Band NON-REACTIVE Lyme IgG 28 kDa Band REACTIVE A Lyme IgG 30 kDa Band NON-REACTIVE Lyme IgG 45 kDa Band NON-REACTIVE Lyme IgG 58 kDa Band REACTIVE A Lyme IgG 66 kDa Band NON-REACTIVE Lyme IgG 93 kDa Band NON-REACTIVE Lyme IgG Ab (Immblot) NEGATIVE Lyme IgM 23 kDa Band REACTIVE A Lyme IgM 39 kDa Band REACTIVE A Lyme IgM 41 kDa Band NON-REACTIVE Lyme IgM Interpretaton POSITIVE A 01/04/21 01/04/21 01/04/21 05:58 05:58 05:58 WBC 6.3 RBC 2.98 L D Hgb 9.4 L D Hct 28.5 L D MCV 95.6 MCH 31.5 MCHC 33.0 RDW 15.9 Plt Count 67 L MPV 12.4 Immature Gran % (Auto) 4.9 H Neut % (Auto) 48.2 Lymph % (Auto) 37.2 Wilkinson % (Auto) 7.3 Eos % (Auto) 2.2 Baso % (Auto) 0.2 Lymph # (Auto) 2.3 [place]kinson # (Auto) 0.5 Eos # (Auto) 0.1 Baso # (Auto) 0.0 Abs Immat Gran (auto) 0.31 H Absolute Neuts (auto) 3.0 Absolute Nucleated RBC 0.000 Nucleated RBC % (auto) 0.0 Sodium 137 Potassium 3.7 Chloride 100 Carbon Dioxide 28 Anion Gap 13 BUN 52 H Creatinine 1.53 H Estim Creat Clear Calc 38.8 Estimated GFR 44 POC Glucose Random Glucose 210 H D Calcium 8.8 Phosphorus 3.2 Magnesium 2.3 B-Natriuretic Peptide 125 H Albumin 3.8 Lyme Screen IgG & IgM Lyme IgG 18 kDa Band Lyme IgG 23 kDa Band Lyme IgG 28 kDa Band Lyme IgG 30 kDa Band Lyme IgG 45 kDa Band Lyme IgG 58 kDa Band Lyme IgG 66 kDa Band Lyme IgG 93 kDa Band Lyme IgG Ab (Immblot) Lyme IgM 23 kDa Band Lyme IgM 39 kDa Band Lyme IgM 41 kDa Band Lyme IgM Interpretaton 0501/04/21 01/04/21 07:03 11:36 11:46 WBC 6.3 RBC 3.10 L Hgb 10.0 L Hct 29.9 L MCV 96.5 MCH 32.3 MCHC 33.4 RDW 16.0 Plt Count 64 L MPV 12.4 Immature Gran % (Auto) Neut % (Auto) Lymph % (Auto) Wilkinson % (Auto) Eos % (Auto) Baso % (Auto) Lymph # (Auto) [place] # (Auto) Eos # (Auto) Baso # (Auto) Abs Immat Gran (auto) Absolute Neuts (auto) Absolute Nucleated RBC 0.000 Nucleated RBC % (auto) 0.0 Sodium Potassium Chloride Carbon Dioxide Anion Gap BUN Creatinine Estim Creat Clear Calc Estimated GFR POC Glucose 200 H 264 H Random Glucose Calcium Phosphorus Magnesium B-Natriuretic Peptide Albumin Lyme Screen IgG & IgM Lyme IgG 18 kDa Band Lyme IgG 23 kDa Band Lyme IgG 28 kDa Band Lyme IgG 30 kDa Band Lyme IgG 45 kDa Band Lyme IgG 58 kDa Band Lyme IgG 66 kDa Band Lyme IgG 93 kDa Band Lyme IgG Ab (Immblot) Lyme IgM 23 kDa Band Lyme IgM 39 kDa Band Lyme IgM 41 kDa Band Lyme IgM Interpretaton Imaging Radiologist's impression: Impressions Guidance Fluoroscopy 01/03/21 14:17 FINDINGS~\^^ Intraoperative fluoroscopy provided for use by Dr. Rivas. Please see operative note for detailed findings. Chest X-Ray 01/03/21 17:30 IMPRESSION: Status post placement of pacemaker with lead in right atrium and right ventricle. No pneumothorax. Lungs are normally aerated. Chest X-Ray 01/04/21 10:17 IMPRESSION: Left subclavian dual chamber pacemaker with leads projecting over the right atrium and right ventricle. 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 Progress Note: A&P Assessment and plan (1) Symptomatic bradycardia: Problem details: POD #1 [facility] dual chamber PPM Status: Acute Assessment and Plan: Temporary pacemaker removed and permanent pacemaker placed yesterday by Dr. Rivas. Mild swelling at the site. Hemoglobin did drop and plan for CBC recheck. Interrogation done this morning shows that device is functioning normally, DDD IR, base rate 60, no alerts. Morning chest x-ray shows leads in appropriate placement, no pneumothorax. Patient will have wound check by Dr. Rivas in 2 weeks. Cardiology follow-up with device check planned for 6 weeks. Ongoing telemetry monitoring while inpatient. (2) Persistent atrial fibrillation: Status: Acute Assessment and Plan: Persistent AFib with slow ventricular response this admission. Now with pacemaker as above. He is not on rate slowing medications at this time. Telemetry monitoring showing atrial fibrillation with intermittent V paced rhythm, PVCs, rates 60s. He has been off anticoagulation this admission due to thrombocytopenia which has been improving. Platelets today 64. Hemoglobin/ hematocrit did drop following pacemaker placement. Needs recheck this a.m. When medically appropriate plan to restart anticoagulation, will use Eliquis 5 mg b.i.d. Going forward will pursue rhythm control on this patient. (3) Anaplasmosis: Problem details: Treat with 10-14 d po Doxycycline Watch sun exposure Status: Acute (4) Suspected Lyme disease: Status: Acute Assessment and Plan: Lyme titer pending, Lyme antibody positive. On ceftriaxone as directed by ID (5) CHF exacerbation: Status: Acute Assessment and Plan: Heart failure symptoms earlier this admission and he had been on Lasix drip. Echocardiogram showed EF 50-55%, mild left atrium dilatation, normal RV. At present breathing comfortable, no JVD or rales. He does have some lower extremity edema which could be from being sedentary. He is not on diuretics at home and is off Lasix at present time. Will check BNP this morning. Chest x-ray shows lungs are clear. Continue to follow. (6) Bifascicular block: Status: Acute Assessment and Plan: Not new Fall Risk Details Current Medications: Current Medications Generic Name Dose Route Start Last Admin Trade Name Freq PRN Reason Stop Dose Admin Acetaminophen 650 mg 12/29/20 01:42 01/04/21 08:50 Acetaminophen 325 Mg Tablet PO 650 mg Q6H PRN Administration Pain, Mild (Pain Scale 1-3) Atorvastatin Calcium 40 mg 12/29/20 21:00 01/03/21 20:08 Atorvastatin Calcium 40 Mg Tablet PO 40 mg BEDTIME LESA Administration Calcium Carbonate 750 mg 01/02/21 11:15 01/02/21 14:36 Calcium Carbonate 750 Mg Tab.Chew PO 750 mg Q6H PRN Administration Dyspepsia Docusate Sodium 100 mg 12/29/20 01:42 Docusate Sodium 100 Mg Capsule PO DAILY PRN Constipation Fluticasone Propionate 2 spray 05/08/21 09:00 01/04/21 08:13 Fluticasone Propionate Nasal 16 Gm [place] NOSTRIL-B 2 spray DAILY LESA Administration Heparin Sodium (Porcine) 5,000 unit 01/02/21 11:30 01/04/21 12:25 Heparin Sodium,Porcine 5,000 Unit/Ml Vial SUBCUT 5,000 unit Q8H [facility]A Administration Ceftriaxone Sodium 1 gm/ 50 mls @ 100 mls/hr 01/02/21 16:00 01/03/21 16:45 Sodium Chloride IV Infused Q24H [facility] Infusion Insulin Glargine 90 unit 12/31/20 09:00 01/04/21 08:08 Insulin Glargine,Hum.Rec.Anlog 100 Unit/Ml 10 Ml Vial SUBCUT 90 unit DAILY LESA Administration Insulin Human Lispro 0 unit 12/29/20 11:30 01/04/21 12:25 Insulin Lispro 100 Unit/Ml 3 Ml Vial SUBCUT 6 unit QIDACHS [facility] Administration Protocol Mirabegron 25 mg 12/29/20 09:00 01/04/21 08:50 Mirabegron 25 Mg Tab.Er.24h PO 25 mg DAILY LESA Administration Multivitamins/Vitamin C 1 tab 12/29/20 09:00 01/04/21 08:50 Multivitamin Tablet PO 1 tab DAILY LESA Administration Pt Own Theraworx ( 1 each 12/31/20 15:54 Mag Sulfate [place]) TOPICAL TID PRN muscle ache Ondansetron HCl 4 mg 12/29/20 01:42 Ondansetron Hcl 4 Mg/2 Ml Vial IVPUSH Q8H PRN Nausea and Vomiting Pregabalin 150 mg 12/29/20 09:00 01/04/21 08:50 Pregabalin 150 Mg Capsule PO 150 mg TID [facility]A Administration Sodium Chloride 3 ml 12/29/20 01:42 01/04/21 08:08 0.9 % Sodium Chloride Flush 3 Ml Syringe IVFLUSH 3 ml QSHIFT [facility] Administration Time Spent With Patient Time: Total time spent is greater than 50% in coordination of care (as documented) at patient's floor/unit and/or counseling patient: 24 Time with patient: 15 - 24 minutes
[2021-01-04 16:12] LABS: Glucose, Whole Blood 198 mg/dL (60-115)
[2021-01-04] MEDS: cefTRIAXone sodium 1 GM in 0.9 % Sodium Chloride 50 ML IV (16:47)
[2021-01-04 20:03] LABS: Glucose, Whole Blood 287 mg/dL (60-115)
[2021-01-04] MEDS: Atorvastatin Calcium 40 MG TABLET PO (20:36)
[2021-01-04] MEDS: oxyCODONE HCl Immed Release 5 MG TABLET PO (20:49)
[2021-01-04] MEDS: Docusate Sodium 100 MG CAPSULE PO (20:49)
[2021-01-05] VITALS (7 sets, daily range): BP systolic 109–134; BP diastolic 55–69; PULSE 53–79; RESP 12–20; TEMP 36.1–37; O2SAT 92–98; BMI 33.9
[2021-01-05] MEDS: Heparin Sodium,Porcine 5,000 UNIT/ML VIAL 5000 UNIT SUBCUT ×3 (03:47→19:32)
[2021-01-05 05:06] LABS: Hematocrit 31.1 % (42-52); Hemoglobin 10.1 g/dl (14.0-18.0); Mean Corpuscular HGB Conc 32.5 g/dl (31.0-36.0); Mean Corpuscular Hemoglobin 31.4 pg (27.0-33.0); Mean Corpuscular Volume 96.6 fL (80-98); Mean Platelet Volume 12.3 fL (9.4-12.4); Red Blood Count 3.22 X10*6/uL (4.60-5.80); Red Cell Distribution Width 15.5 % (11.0-16.0); White Blood Count 6.3 X10*3/uL (4.8-10.8)
[2021-01-05 05:14] LABS: Platelet Count 75 X10*3/uL (160-400)
[2021-01-05 05:35] LABS: Anion Gap 9 (12-20); Blood Urea Nitrogen 41 mg/dL (9-16); Calcium 8.9 mg/dL (8.4-10.2); Carbon Dioxide 29 mmol/L (22-29); Chloride 103 mmol/L (96-108); Estimated Glomerular Filt Rate > 60; Glucose Random 156 mg/dL (60-115); Potassium 3.9 mmol/L (3.3-5.1); Sodium 137 mmol/L (135-145)
[2021-01-05 07:25] LABS: Glucose, Whole Blood 153 mg/dL (60-115)
[2021-01-05] MEDS: Insulin Lispro 100 UNIT/ML 3 ML VIAL SUBCUT ×4 (07:42→21:30)
[2021-01-05] MEDS: Pregabalin 150 MG CAPSULE PO ×3 (09:18→21:30)
[2021-01-05] MEDS: Multivitamin TABLET 1 TAB PO (09:18)
[2021-01-05] MEDS: 0.9 % Sodium Chloride Flush 3 ML SYRINGE IVFLUSH ×3 (09:18→21:30)
[2021-01-05] MEDS: Insulin Glargine,Hum.rec.anlog 100 UNIT/ML 10 ML VIAL 90 UNIT SUBCUT (09:19)
[2021-01-05] MEDS: Mirabegron 25 MG TAB.ER.24H PO (09:19)
[2021-01-05] MEDS: Fluticasone Propionate Nasal 16 GM SPRAY 2 SPRAY NOSTRIL-B (09:19)
--- NOTE | 2021-01-05 10:34 | PM.PNCARD ---
Subjective Subjective Date of Service: 01/05/21 Principal diagnosis: Afib, CHF, Lyme/ anaplasmosis, symptomatic chemo, s/p PPM Interval history: Cardiology follow-up for AFib, status post pacemaker. Seen at 09:45. Today he reports that he is feeling much better. He is sitting up in a chair and was able to eat breakfast. He reports left shoulder discomfort with movement. Pacer site mildly sore, improving. No other chest pains, no shortness of breath, palpitations, dizziness. Slept well. Review of Systems Review of Systems As above Yes all other systems are reviewed and are negative Physical Exam Vital Signs: Last Vital Signs Temp 97.0 F 01/05/21 07:45 Pulse 69 01/05/21 07:45 Resp 20 01/05/21 07:45 BP 109/66 01/05/21 07:45 Pulse Ox 92 01/05/21 07:45 Oxygen Flow Rate 2 12/28/20 19:42 Body Mass Index 33.9 Const General: cooperative, no acute distress, alert and awake Orientation/consciousness: patient oriented x3 Neck Neck: Yes normal visual inspection and Yes no JVD Resp Effort & Inspection: normal respiratory effort, able to speak in complete sentences and not labored Auscultation: clear to auscultation bilaterally, no crackles, no rales, no rhonchi and no wheezes Cardio Other: Heart tones irregularly irregular. Pacer site left upper chest fully intact with no signs of infection, no drainage, mild swelling, no gross ecchymosis Palpation: normal PMI Rate: regular rate Heart sounds: S1 normal heart sound present and S2 normal heart sound present Peripheral pulses: Peripheral pulses 2+ throughout GI Inspection: Yes normal to inspection Neuro General: patient oriented x3 Extrem Other: Mild pitting edema lateral aspect of feet General: Yes normal to inspection Results Labs and Meds Result diagrams: 01/05/21 04:30 01/05/21 04:30 Lab results: Laboratory Results - last 24 hr 12/31/20 01/04/21 01/04/21 15:31 11:36 11:46 WBC 6.3 RBC 3.10 L Hgb 10.0 L Hct 29.9 L MCV 96.5 MCH 32.3 MCHC 33.4 RDW 16.0 Plt Count 64 L MPV 12.4 Absolute Nucleated RBC 0.000 Nucleated RBC % (auto) 0.0 Sodium Potassium Chloride Carbon Dioxide Anion Gap BUN Creatinine Estim Creat Clear Calc Estimated GFR POC Glucose 264 H Random Glucose Calcium Lyme Screen IgG & IgM POSITIVE 01/04/21 01/04/21 01/05/21 16:02 19:54 04:30 WBC 6.3 RBC 3.22 L Hgb 10.1 L Hct 31.1 L MCV 96.6 MCH 31.4 MCHC 32.5 RDW 15.5 Plt Count 75 L MPV 12.3 Absolute Nucleated RBC 0.000 Nucleated RBC % (auto) 0.0 Sodium Potassium Chloride Carbon Dioxide Anion Gap BUN Creatinine Estim Creat Clear Calc Estimated GFR POC Glucose 198 H 287 H Random Glucose Calcium Lyme Screen IgG & IgM 01/05/21 01/05/21 04:30 07:10 WBC RBC Hgb Hct MCV MCH MCHC RDW Plt Count MPV Absolute Nucleated RBC Nucleated RBC % (auto) Sodium 137 Potassium 3.9 Chloride 103 Carbon Dioxide 29 Anion Gap 9 L BUN 41 H Creatinine 1.08 Estim Creat Clear Calc 55.0 Estimated GFR > 60 POC Glucose 153 H Random Glucose 156 H Calcium 8.9 Lyme Screen IgG & IgM Imaging Radiologist's impression: Impressions Chest X-Ray 01/04/21 10:17 IMPRESSION: Left subclavian dual chamber pacemaker with leads projecting over the right atrium and right ventricle. 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 Progress Note: A&P Assessment and plan (1) Symptomatic bradycardia: Problem details: POD #1 [employer] dual chamber PPM Status: Acute Assessment and Plan: Symptomatic bradycardia this admission. Had permanent pacemaker placed 01/03/[address] Rivas. Mild swelling at the site, no significant hematoma noted. Hemoglobin initially dropped, has been stable. Interrogation yesterday shows that device is functioning normally, DDD IR, base rate 60, no alerts. Yesterday chest x-ray shows leads in appropriate placement, no pneumothorax. Patient will have wound check by Dr. Rivas in 2 weeks. Cardiology follow-up with device check planned for 6 weeks -we will arrange. Ongoing telemetry monitoring while inpatient. Plan to review pacemaker site care prior to discharge (2) Pacemaker: Problem details: [employer], dual-chamber, 01/03/2021 Status: Acute (3) Persistent atrial fibrillation: Status: Acute Assessment and Plan: Persistent AFib with slow ventricular response this admission. Now with pacemaker as above. He is not on rate slowing medications at this time. Telemetry monitoring showing atrial fibrillation with intermittent V paced rhythm, PVCs, rates 60s. He has been off anticoagulation this admission due to thrombocytopenia which has been improving. Platelets today 75. Can restart anticoagulation when platelets greater than 80. Then plan to start on Eliquis 5 mg b.i.d. Going forward we will pursue rhythm control on this patient. His AFib is a new or finding. (4) Suspected Lyme disease: Status: Acute Assessment and Plan: Testing positive. He is on appropriate management as directed by ID (5) Anaplasmosis: Problem details: Treat with 10-14 d po Doxycycline Watch sun exposure Status: Acute Assessment and Plan: On appropriate antibiotic (6) Thrombocytopenia: Status: Acute Assessment and Plan: Improving as above (7) Bifascicular block: Status: Acute Assessment and Plan: Noted on EKG Fall Risk Details Current Medications: Current Medications Generic Name Dose Route Start Last Admin Trade Name Freq PRN Reason Stop Dose Admin Acetaminophen 650 mg 12/29/20 01:42 01/04/21 19:11 Acetaminophen 325 Mg Tablet PO 650 mg Q6H PRN Administration Pain, Mild (Pain Scale 1-3) Atorvastatin Calcium 40 mg 12/29/20 21:00 01/04/21 20:36 Atorvastatin Calcium 40 Mg Tablet PO 40 mg BEDTIME [facility] Administration Calcium Carbonate 750 mg 01/02/21 11:15 01/02/21 14:36 Calcium Carbonate 750 Mg Tab.Chew PO 750 mg Q6H PRN Administration Dyspepsia Docusate Sodium 100 mg 12/29/20 01:42 01/04/21 20:49 Docusate Sodium 100 Mg Capsule PO 100 mg DAILY PRN Administration Constipation Fluticasone Propionate 2 spray 12/29/20 09:00 01/05/21 09:19 Fluticasone Propionate Nasal 16 Gm [place] NOSTRIL-B 2 spray DAILY [facility] Administration Heparin Sodium (Porcine) 5,000 unit 01/02/21 11:30 01/05/21 03:47 Heparin Sodium,Porcine 5,000 Unit/Ml Vial SUBCUT 5,000 unit Q8H [facility] Administration Ceftriaxone Sodium 1 gm/ 50 mls @ 100 mls/hr 01/02/21 16:00 01/04/21 17:27 Sodium Chloride IV Infused Q24H [facility] Infusion Insulin Glargine 90 unit 12/31/20 09:00 01/05/21 09:19 Insulin Glargine,Hum.Rec.Anlog 100 Unit/Ml 10 Ml Vial SUBCUT 90 unit DAILY [facility] Administration Insulin Human Lispro 0 unit 12/29/20 11:30 01/05/21 07:42 Insulin Lispro 100 Unit/Ml 3 Ml Vial SUBCUT 2 unit QIDACHS [facility] Administration Protocol Mirabegron 25 mg 12/29/20 09:00 01/05/21 09:19 Mirabegron 25 Mg Tab.Er.24h PO 25 mg DAILY [facility] Administration Multivitamins/Vitamin C 1 tab 12/29/20 09:00 01/05/21 09:18 Multivitamin Tablet PO 1 tab DAILY [facility] Administration Pt Own Theraworx ( 1 each 12/31/20 15:54 Mag Sulfate [place]) TOPICAL TID PRN muscle ache Ondansetron HCl 4 mg 12/29/20 01:42 Ondansetron Hcl 4 Mg/2 Ml Vial IVPUSH Q8H PRN Nausea and Vomiting Pregabalin 150 mg 12/29/20 09:00 01/05/21 09:18 Pregabalin 150 Mg Capsule PO 150 mg TID [facility] Administration Sodium Chloride 3 ml 12/29/20 01:42 01/05/21 09:18 0.9 % Sodium Chloride Flush 3 Ml Syringe IVFLUSH 3 ml QSHIFT [facility] Administration Time Spent With Patient Time: Total time spent is greater than 50% in coordination of care (as documented) at patient's floor/unit and/or counseling patient: 22 Time with patient: 15 - 24 minutes
--- NOTE | 2021-01-05 10:42 | P.PNIM_ITS ---
Subjective Subjective Date of Service: 01/05/21 <Clau Franco NP - Last Filed: 01/05/21 15:36> 01/06/21 <Dru Penn MD - Last Filed: 01/06/21 14:01> Interval History: Follow up pacer placement sec to bradycardia Right shoulder pain No sob <Clau Franco NP - Last Filed: 01/05/21 15:36> Physical Exam Vital Signs: Vital Signs: Last Vital Signs Temp 97.0 F 01/05/21 07:45 Pulse 69 01/05/21 07:45 Resp 20 01/05/21 07:45 BP 109/66 01/05/21 07:45 Pulse Ox 92 01/05/21 07:45 Oxygen Flow Rate 2 12/28/20 19:42 Body Mass Index 33.9 <Clau Franco NP - Last Filed: 01/05/21 15:36> Appearing in no acute distress lung sounds are clear to auscultation heart regular rate rhythm, clear S1, S2, left chest pacer, mild swelling at site, sling on positive bowel sounds, abdomen is soft, nontender neuro patient is alert x3, no focal deficits <Clau Franco NP - Last Filed: 01/05/21 15:36> Objective Data Current Medications Generic Name Dose Route Start Last Admin Trade Name Freq PRN Reason Stop Dose Admin Acetaminophen 650 mg 12/29/20 01:42 01/04/21 19:11 Acetaminophen 325 Mg Tablet PO 650 mg Q6H PRN Administration Pain, Mild (Pain Scale 1-3) Atorvastatin Calcium 40 mg 12/29/20 21:00 01/04/21 20:36 Atorvastatin Calcium 40 Mg Tablet PO 40 mg BEDTIME [facility]A Administration Calcium Carbonate 750 mg 01/02/21 11:15 01/02/21 14:36 Calcium Carbonate 750 Mg Tab.Chew PO 750 mg Q6H PRN Administration Dyspepsia Docusate Sodium 100 mg 12/29/20 01:42 01/04/21 20:49 Docusate Sodium 100 Mg Capsule PO 100 mg DAILY PRN Administration Constipation Fluticasone Propionate 2 spray 12/29/20 09:00 01/05/21 09:19 Fluticasone Propionate Nasal 16 Gm [place] NOSTRIL-B 2 spray DAILY [facility] Administration Heparin Sodium (Porcine) 5,000 unit 01/02/21 11:30 01/05/21 03:47 Heparin Sodium,Porcine 5,000 Unit/Ml Vial SUBCUT 5,000 unit Q8H [facility] Administration Ceftriaxone Sodium 1 gm/ 50 mls @ 100 mls/hr 01/02/21 16:00 01/04/21 17:27 Sodium Chloride IV Infused Q24H [facility] Infusion Insulin Glargine 90 unit 12/31/20 09:00 01/05/21 09:19 Insulin Glargine,Hum.Rec.Anlog 100 Unit/Ml 10 Ml Vial SUBCUT 90 unit DAILY [facility] Administration Insulin Human Lispro 0 unit 12/29/20 11:30 01/05/21 07:42 Insulin Lispro 100 Unit/Ml 3 Ml Vial SUBCUT 2 unit QIDACHS [facility] Administration Protocol Mirabegron 25 mg 12/29/20 09:00 01/05/21 09:19 Mirabegron 25 Mg Tab.Er.24h PO 25 mg DAILY [facility] Administration Multivitamins/Vitamin C 1 tab 12/29/20 09:00 01/05/21 09:18 Multivitamin Tablet PO 1 tab DAILY [facility] Administration Pt Own Theraworx ( 1 each 12/31/20 15:54 Mag Sulfate [place]) TOPICAL TID PRN muscle ache Ondansetron HCl 4 mg 12/29/20 01:42 Ondansetron Hcl 4 Mg/2 Ml Vial IVPUSH Q8H PRN Nausea and Vomiting Pregabalin 150 mg 12/29/20 09:00 01/05/21 09:18 Pregabalin 150 Mg Capsule PO 150 mg TID [facility] Administration Sodium Chloride 3 ml 12/29/20 01:42 01/05/21 09:18 0.9 % Sodium Chloride Flush 3 Ml Syringe IVFLUSH 3 ml QSHIFT [facility] Administration <Clau Franco NP - Last Filed: 01/05/21 15:36> Labs CBC & Chem 7: : 01/06/21 08:46 01/05/21 04:30 <Clau rFanco NP - Last Filed: 01/05/21 15:36> Microbiology Microbiology Results: Microbiology 12/28/20 20:55 Blood - Venous Blood Culture - Final No growth after 5 days. 12/28/20 20:44 Blood - Venous Blood Culture - Final No growth after 5 days. <Clau Franco NP - Last Filed: 01/05/21 15:36> Assessment and Plan (1) Pacemaker: Problem details: [employer], dual-chamber, 01/03/2021 <Clau Franco NP - Last Filed: 01/05/21 15:36> Status: Acute <Clau Franco NP - Last Filed: 01/05/21 15:36> Assessment and Plan: This is an 85-year-old male w/ history of CAD, diabetes mellitus, AFib, bifascicular block, prior [place] with recent admission for bradycardia secondary to beta-jas overdose admitted on 12/28/2020 with dyspnea secondary to heart failure exacerbation. Patient has been initially treated with a diuretic, he developed symptomatic bradycardia with ventricular bigeminy necessi tating transfer to ICU for placement of a temporary pacer with pressor support. His hospital course has been further been complicated by coagulopathy, transaminitis, and thrombocytopenia. Of note, on 12/31/2020 his blood smear was noted to be positive for Anaplasma and he was started on doxycycline. Lyme antibody screen is positive, other serology is pending. s/p PPM 01/03 and then downgraded to IMC. Symptomatic bradycardia h/o underlying afib/bifasicular block POD 2 s/p Pacemaker -cardiology following Anaplasmosis/Lyme seen by ID -IV ceftriaxone now, doxycycline on discharge to complete 21 day course Anemia -repeat CBC this afternoon Left shoulder pain seems musculoskeletal -pain management Thrombocytopenia Likely related to Anaplasmosis -platelets stable -follow CBC Afib. s/p PM -will need AC when H/H stable and platelets above 80 -previously on coumdin, cardiology rec Eliquis instead -cardiology following HFpEF s/p lasix drip in ICU. not on lasix at home ?precipitated by bradycardia appears euvolemic at this time, creatinine trending up -hold off on further diuresis at this time -monitor fluid status closely -cardiology following -losartan on hold for ALPA ALPA Creatinine trending up, 1.08 -avoid nephrotoxins -follow BMP DM -Continue Lantus -SSI, POCs CAD asa previously d/c due to throbocytopenia metoprolol previously d/c due to bradycardia -Continue statin Leukopenia. Resolved. Dispo: Will need PT eval and likely STR DVT ppx - heparin; will need full AC for afib when medically appropriate Attending: Dr. Penn <Clau Salvador, UNDER BASTER - Last Filed: 01/05/21 15:36>
[2021-01-05 11:28] LABS: Glucose, Whole Blood 194 mg/dL (60-115)
[2021-01-05] MEDS: oxyCODONE HCl Immed Release 5 MG TABLET PO ×2 (11:45→23:29)
[2021-01-05 16:17] LABS: Glucose, Whole Blood 271 mg/dL (60-115)
[2021-01-05] MEDS: cefTRIAXone sodium 1 GM in 0.9 % Sodium Chloride 50 ML IV (16:30)
--- NOTE | 2021-01-05 18:08 | PC.NURSE ---
Mena Catheter removed at [address] Penn. DTV at [phone].
[2021-01-05 21:29] LABS: Glucose, Whole Blood 295 mg/dL (60-115)
[2021-01-05] MEDS: Atorvastatin Calcium 40 MG TABLET PO (21:30)
[2021-01-06] VITALS (7 sets, daily range): BP systolic 113–135; BP diastolic 60–78; PULSE 52–94; RESP 16–20; TEMP 36.2–37.2; O2SAT 93–98; BMI 31.2
[2021-01-06] MEDS: Heparin Sodium,Porcine 5,000 UNIT/ML VIAL 5000 UNIT SUBCUT (02:54)
[2021-01-06] MEDS: oxyCODONE HCl Immed Release 5 MG TABLET PO ×3 (03:01→21:10)
[2021-01-06 07:22] LABS: Glucose, Whole Blood 83 mg/dL (60-115)
[2021-01-06 09:06] LABS: Hematocrit 34.4 % (42-52); Hemoglobin 11.1 g/dl (14.0-18.0); Mean Corpuscular HGB Conc 32.3 g/dl (31.0-36.0); Mean Corpuscular Hemoglobin 31.7 pg (27.0-33.0); Mean Corpuscular Volume 98.3 fL (80-98); Mean Platelet Volume 11.3 fL (9.4-12.4); Red Cell Distribution Width 15.5 % (11.0-16.0); White Blood Count 6.9 X10*3/uL (4.8-10.8)
[2021-01-06 09:16] LABS: Platelet Count 92 X10*3/uL (160-400)
[2021-01-06] MEDS: 0.9 % Sodium Chloride Flush 3 ML SYRINGE IVFLUSH ×3 (10:04→21:16)
[2021-01-06] MEDS: Pregabalin 150 MG CAPSULE PO ×3 (10:04→21:11)
[2021-01-06] MEDS: Multivitamin TABLET 1 TAB PO (10:04)
[2021-01-06] MEDS: Mirabegron 25 MG TAB.ER.24H PO (10:04)
[2021-01-06] MEDS: Fluticasone Propionate Nasal 16 GM SPRAY 2 SPRAY NOSTRIL-B (10:05)
[2021-01-06] MEDS: Insulin Glargine,Hum.rec.anlog 100 UNIT/ML 10 ML VIAL 90 UNIT SUBCUT (10:05)
--- NOTE | 2021-01-06 10:19 | P.PNIM_ITS ---
Subjective Subjective Date of Service: 01/06/21 Interval History: Followup pacemaker Pain to left ear that radiates over his head to right hear still with shoulder pain vesicular rash under left ear and chin Physical Exam Vital Signs: Vital Signs: Last Vital Signs Temp 97.6 F 01/06/21 07:43 Pulse 58 01/06/21 07:43 Resp 20 01/06/21 07:43 BP 113/63 01/06/21 07:43 Pulse Ox 95 01/06/21 07:43 Oxygen Flow Rate 2 12/28/20 19:42 Body Mass Index 31.2 Appearing in no acute distress neck is supple, dried vesicles with no drainage, crossing midline lung sounds are clear to auscultation heart paced positive bowel sounds, abdomen is soft, nontender neuro patient is alert x3, no focal deficits Objective Data Current Medications Generic Name Dose Route Start Last Admin Trade Name Freq PRN Reason Stop Dose Admin Acetaminophen 650 mg 12/29/20 01:42 01/04/21 19:11 Acetaminophen 325 Mg Tablet PO 650 mg Q6H PRN Administration Pain, Mild (Pain Scale 1-3) Atorvastatin Calcium 40 mg 12/29/20 21:00 01/05/21 21:30 Atorvastatin Calcium 40 Mg Tablet PO 40 mg BEDTIME [facility]A Administration Calcium Carbonate 750 mg 01/02/21 11:15 01/02/21 14:36 Calcium Carbonate 750 Mg Tab.Chew PO 750 mg Q6H PRN Administration Dyspepsia Docusate Sodium 100 mg 12/29/20 01:42 01/04/21 20:49 Docusate Sodium 100 Mg Capsule PO 100 mg DAILY PRN Administration Constipation Fluticasone Propionate 2 spray 12/29/20 09:00 01/06/21 10:05 Fluticasone Propionate Nasal 16 Gm [place] NOSTRIL-B 2 spray DAILY [facility]A Administration Heparin Sodium (Porcine) 5,000 unit 01/02/21 11:30 01/06/21 02:54 Heparin Sodium,Porcine 5,000 Unit/Ml Vial SUBCUT 5,000 unit Q8H [facility] Administration Ceftriaxone Sodium 1 gm/ 50 mls @ 100 mls/hr 01/02/21 16:00 01/05/21 17:12 Sodium Chloride IV Infused Q24H [facility] Infusion Insulin Glargine 90 unit 12/31/20 09:00 01/06/21 10:05 Insulin Glargine,Hum.Rec.Anlog 100 Unit/Ml 10 Ml Vial SUBCUT 90 unit DAILY [facility] Administration Insulin Human Lispro 0 unit 12/29/20 11:30 01/06/21 07:38 Insulin Lispro 100 Unit/Ml 3 Ml Vial SUBCUT Not Given QIDACHS [facility] Protocol Mirabegron 25 mg 12/29/20 09:00 01/06/21 10:04 Mirabegron 25 Mg Tab.Er.24h PO 25 mg DAILY [facility]A Administration Multivitamins/Vitamin C 1 tab 12/29/20 09:00 01/06/21 10:04 Multivitamin Tablet PO 1 tab DAILY [facility]A Administration Pt Own Theraworx ( 1 each 12/31/20 15:54 Mag Sulfate [place]) TOPICAL TID PRN muscle ache Ondansetron HCl 4 mg 12/29/20 01:42 Ondansetron Hcl 4 Mg/2 Ml Vial IVPUSH Q8H PRN Nausea and Vomiting Oxycodone HCl 5 mg 01/05/21 10:41 01/06/21 10:09 Oxycodone Hcl Immed Release 5 Mg Tablet PO 5 mg Q6H PRN Administration Pain, Moderate (Pain Scale 4-6 Pregabalin 150 mg 12/29/20 09:00 01/06/21 10:04 Pregabalin 150 Mg Capsule PO 150 mg TID [facility] Administration Sodium Chloride 3 ml 12/29/20 01:42 01/06/21 10:04 0.9 % Sodium Chloride Flush 3 Ml Syringe IVFLUSH 3 ml QSHIFT [facility] Administration Valacyclovir HCl 1,000 mg 01/06/21 11:00 Valacycyclovir Hcl 1,000 Mg Tablet PO 01/13/21 10:59 Q8H [facility] Labs CBC & Chem 7: 01/06/21 08:46 01/05/21 04:30 Microbiology Microbiology Results: Microbiology 12/28/20 20:55 Blood - Venous Blood Culture - Final No growth after 5 days. 12/28/20 20:44 Blood - Venous Blood Culture - Final No growth after 5 days. Assessment and Plan (1) Pacemaker: Problem details: [employer], dual-chamber, 01/03/2021 Status: Acute Assessment and Plan: This is an 85-year-old male w/ history of CAD, diabetes mellitus, AFib, bifascicular block, prior [place] with recent admission for bradycardia secondary to beta-jas overdose admitted on 12/28/2020 with dyspnea secondary to heart failure exacerbation. Patient has been initially treated with a diuretic, he developed symptomatic bradycardia with ventricular bigeminy necessitating transfer to ICU for placement of a temporary pacer with pressor support. His hospital course has been further been complicated by coagulopathy, transaminitis, and thrombocytopenia. Of note, on 12/31/2020 his blood smear was noted to be positive for Anaplasma and he was started on doxycycline. Lyme antibody screen is positive, other serology is pending. s/p PPM 5/ and then downgraded to IMC. Left shoulder pain. Likely related to Herpes zoster. vesicular rash to left neck slightly crossing middle - Valtrex 1gm TID for 7 days - Add gabapentin - pain management Symptomatic bradycardia underlying afib/bifasicular block POD# 3 s/p Pacemaker -cardiology following Anaplasmosis/Lyme seen by ID -IV ceftriaxone now, doxycycline on discharge to complete 21 day course Anemia -repeat CBC this afternoon Thrombocytopenia. PLT at 92 Likely related to Anaplasmosis -follow CBC Afib. s/p Pacer -start Eliquis 5mg BID -cardiology following HFpEF s/p lasix drip in ICU. not on lasix at home ?precipitated by bradycardia appears euvolemic at this time, creatinine trending up -hold off on further diuresis at this time -monitor fluid status closely -cardiology following -losartan on hold for ALPA ALPA Creatinine trending down -avoid nephrotoxins -follow BMP DM -Continue Lantus -SSI, POCs CAD asa previously d/c due to throbocytopenia metoprolol previously d/c due to bradycardia -Continue statin Leukopenia. Resolved. Dispo: STR tomorrow, needs rapid covid DVT ppx - Eliquis Attending: Dr. Penn
--- NOTE | 2021-01-06 10:26 | PM.PNCARD ---
Subjective Subjective Date of Service: 01/06/21 Principal diagnosis: Afib, CHF, Lyme/ anaplasmosis, symptomatic chemo, s/p PPM Interval history: Feeling better. Physical Exam Vital Signs: Last Vital Signs Temp 97.6 F 01/06/21 07:43 Pulse 58 01/06/21 07:43 Resp 20 01/06/21 07:43 BP 113/63 01/06/21 07:43 Pulse Ox 95 01/06/21 07:43 Oxygen Flow Rate 2 12/28/20 19:42 Body Mass Index 31.2 GENERAL APPEARANCE: in no acute distress, pleasant. NECK/THYROID: no carotid bruit, no JVD. HEART: no murmurs, irregular rate and rhythm. LUNGS: clear to auscultation bilaterally. ABDOMEN: soft, nontender. EXTREMITIES: Mild edema. PERIPHERAL PULSES: equal. NEUROLOGIC: No gross deficits, AAO X 3 Pacemaker site: no hematoma. Results Labs and Meds Result diagrams: 01/06/21 08:46 01/05/21 04:30 Lab results: Laboratory Results - last 24 hr 01/05/21 01/05/21 01/05/21 11:24 16:10 21:25 WBC RBC Hgb Hct MCV MCH MCHC RDW Plt Count MPV Absolute Nucleated RBC Nucleated RBC % (auto) POC Glucose 194 H 271 H 295 H 01/06/21 01/06/21 07:04 08:46 WBC 6.9 RBC 3.50 L Hgb 11.1 L Hct 34.4 L MCV 98.3 H MCH 31.7 MCHC 32.3 RDW 15.5 Plt Count 92 L MPV 11.3 Absolute Nucleated RBC 0.000 Nucleated RBC % (auto) 0.0 POC Glucose 83 Progress Note: A&P Assessment and plan (1) Pacemaker: Problem details: [employer], dual-chamber, 01/03/2021 Status: Acute (2) Suspected Lyme disease: Status: Acute (3) Atrial fibrillation: Status: Acute (4) CHF exacerbation: Status: Acute Assessment and Plan: 85-year-old gentleman who presented with weakness and then developed symptomatic bradycardia. A temporary pacemaker followed by permanent pacemaker placement. He has been diagnosed with anaplasmosis and was treated with antibiotics. His Lyme antibodies were also positive. He had atrial fibrillation. Rates are controlled without any AV sofy blockers. Clinically looks euvolemic. I think he should be on 40 mg Lasix p.o. daily. Can resume Eliquis today. We are signing off for now. Fall Risk Details Current Medications: Current Medications Generic Name Dose Route Start Last Admin Trade Name [place] PRN Reason Stop Dose Admin Acetaminophen 650 mg 12/29/20 01:42 01/04/21 19:11 Acetaminophen 325 Mg Tablet PO 650 mg Q6H PRN Administration Pain, Mild (Pain Scale 1-3) Atorvastatin Calcium 40 mg 12/29/20 21:00 01/05/21 21:30 Atorvastatin Calcium 40 Mg Tablet PO 40 mg BEDTIME [facility] Administration Calcium Carbonate 750 mg 01/02/21 11:15 01/02/21 14:36 Calcium Carbonate 750 Mg Tab.Chew PO 750 mg Q6H PRN Administration Dyspepsia Docusate Sodium 100 mg 12/29/20 01:42 01/04/21 20:49 Docusate Sodium 100 Mg Capsule PO 100 mg DAILY PRN Administration Constipation Fluticasone Propionate 2 spray 12/29/20 09:00 01/06/21 10:05 Fluticasone Propionate Nasal 16 Gm [place] NOSTRIL-B 2 spray DAILY [facility] Administration Heparin Sodium (Porcine) 5,000 unit 01/02/21 11:30 01/06/21 02:54 Heparin Sodium,Porcine 5,000 Unit/Ml Vial SUBCUT 5,000 unit Q8H [facility] Administration Ceftriaxone Sodium 1 gm/ 50 mls @ 100 mls/hr 01/02/21 16:00 01/05/21 17:12 Sodium Chloride IV Infused Q24H [facility] Infusion Insulin Glargine 90 unit 12/31/20 09:00 01/06/21 10:05 Insulin Glargine,Hum.Rec.Anlog 100 Unit/Ml 10 Ml Vial SUBCUT 90 unit DAILY [facility] Administration Insulin Human Lispro 0 unit 12/29/20 11:30 01/06/21 07:38 Insulin Lispro 100 Unit/Ml 3 Ml Vial SUBCUT Not Given QIDACHS [facility] Protocol Mirabegron 25 mg 12/29/20 09:00 01/06/21 10:04 Mirabegron 25 Mg Tab.Er.24h PO 25 mg DAILY [facility] Administration Multivitamins/Vitamin C 1 tab 12/29/20 09:00 01/06/21 10:04 Multivitamin Tablet PO 1 tab DAILY [facility] Administration Pt Own Theraworx ( 1 each 12/31/20 15:54 Mag Sulfate [place]) TOPICAL TID PRN muscle ache Ondansetron HCl 4 mg 12/29/20 01:42 Ondansetron Hcl 4 Mg/2 Ml Vial IVPUSH Q8H PRN Nausea and Vomiting Oxycodone HCl 5 mg 01/05/21 10:41 01/06/21 10:09 Oxycodone Hcl Immed Release 5 Mg Tablet PO 5 mg Q6H PRN Administration Pain, Moderate (Pain Scale 4-6 Pregabalin 150 mg 12/29/20 09:00 01/06/21 10:04 Pregabalin 150 Mg Capsule PO 150 mg TID [facility] Administration Sodium Chloride 3 ml 12/29/20 01:42 01/06/21 10:04 0.9 % Sodium Chloride Flush 3 Ml Syringe IVFLUSH 3 ml QSHIFT [facility] Administration Valacyclovir HCl 1,000 mg 01/06/21 11:00 Valacycyclovir Hcl 1,000 Mg Tablet PO 01/13/21 10:59 Q8H [facility] Time Spent With Patient Time: Total time spent is greater than 50% in coordination of care (as documented) at patient's floor/unit and/or counseling patient: Time with patient: less than 15 minutes
[2021-01-06 11:19] LABS: Glucose, Whole Blood 211 mg/dL (60-115)
[2021-01-06] MEDS: Insulin Lispro 100 UNIT/ML 3 ML VIAL SUBCUT ×3 (11:41→21:12)
--- NOTE | 2021-01-06 16:14 | PM.DS ---
DS: Providers Provider Date of Service: 01/07/21 <Clau Franco NP - Last Filed: 01/07/21 15:44> 01/07/21 <Basil Larkin MD - Last Filed: 01/07/21 16:06> Date of admission: 12/29/20 00:01 <Clau Franco NP - Last Filed: 01/07/21 15:44> Date of discharge: 01/07/21 <Clau Franco NP - Last Filed: 01/07/21 15:44> Primary care physician: Unknown Physician <Clau Franco NP - Last Filed: 01/07/21 15:44> Admitting clinician: Robert Hsieh <Clau Franco NP - Last Filed: 01/07/21 15:44> Attending physician on admission: Robert Hsieh <Clau Franco NP - Last Filed: 01/07/21 15:44> Consults: 12/29/20 01:42 Consult to Cardiology Routine Consulting Provider: Jean Aguiar Reason for consultation: CHF, lasix on dc? Has provider been notified: No 01/02/21 11:16 Consult to Thoracic Surgery Routine Consulting Provider: Jose Miguel Rivas Reason for consultation: PPM placement Has provider been notified: No 01/02/21 12:05 Consult to Infectious Diseases Routine Consulting Provider: Monica Carrillo Reason for consultation: Anaplasmosis, Lyme, symptomatic bradycardia Has provider been notified: Yes <Clau Franco NP - Last Filed: 01/07/21 15:44> Attending physician on discharge: Basil Larkin <Clau Franco NP - Last Filed: 01/07/21 15:44> Discharging clinician: Clau Franco <Clau Franco NP - Last Filed: 01/07/21 15:44> DS: Diagnosis Discharge Diagnosis (1) Pacemaker: Status: Acute <Clau Franco NP - Last Filed: 01/07/21 15:44> Problem details: [employer], dual-chamber, 01/03/2021 <Clau Franco NP - Last Filed: 01/07/21 15:44> (2) Symptomatic bradycardia: Status: Acute <Clau Franco NP - Last Filed: 01/07/21 15:44> (3) Anaplasmosis: Status: Acute <Clau Franco NP - Last Filed: 01/07/21 15:44> (4) Acute diastolic (congestive) heart failure: Status: Acute <Clau Franco NP - Last Filed: 01/07/21 15:44> (5) Acute kidney injury: Status: Acute <Clau Franco NP - Last Filed: 01/07/21 15:44> (6) Thrombocytopenia: Status: Acute <Clau Franco NP - Last Filed: 01/07/21 15:44> (7) Leukopenia: Status: Acute <Clau Franco NP - Last Filed: 01/07/21 15:44> (8) Diabetes: Status: Acute <Clau Franco NP - Last Filed: 01/07/21 15:44> (9) Shingles (herpes zoster) polyneuropathy: Status: Acute <Clau Franco NP - Last Filed: 01/07/21 15:44> DS: Medications Discharge Medications Home Medications: Home Medications Medication Instructions Recorded Confirmed Combivent Respimat 1 puff INHALATION QID 12/14/20 12/29/20 Myrbetriq 1 tab PO DAILY 12/14/20 12/29/20 Tresiba FlexTouch U-100 88 unit SUBCUT DAILY 12/14/20 12/29/20 atorvastatin 1 tab PO BEDTIME 12/14/20 12/29/20 cholecalciferol (vitamin D3) 1 cap PO DAILY 12/14/20 12/29/20 fluticasone propionate 2 spray INTRANASAL DAILY 12/14/20 12/29/20 insulin aspart U-100 [Novolog 1 sliding scale dose SUBCUT 12/14/20 12/29/20 U-100 Insulin aspart] USEASDIRECTD losartan 1 tab PO DAILY 12/14/20 12/29/20 multivitamin 1 tab PO DAILY 12/14/20 12/29/20 pregabalin 1 cap PO TID 12/28/20 12/29/20 warfarin 4 mg PO DAILY@1700 12/28/20 12/29/20 Previous Rx's Medication Instructions Recorded oxycodone-acetaminophen [Percocet] 1 tab PO TID PRN #9 tab 12/23/20 <Clau Franco NP - Last Filed: 01/07/21 15:44> DS: Summary Hospital Course Hospital Course: HP as per admitting provider This is an 85-year-old male with past medical history of CAD, diabetes, HLD, HTN, recently diagnosed AFib on Coumadin, who presents to the hospital with shortness of breath and leg swelling. Patient appears very tired on my interview, but able to stay up long enough to give me answers. Of note patient was discharged on December 16 after being managed for new onset AFib and bradycardia thought to be related to metoprolol. It appears that mostly family sent the patient home because they were concerned about him having shortness of breath and falling, according to the family has also been confused lately although the patient denies. Patient is alert and oriented x3. He reports that mostly he came in because his legs have been given out on him, they feel weak, his also noticed leg swelling for the past 3 days. Although he denies shortness of breath in most situations, he does report some dyspnea on exertion. Denies any cough or sputum production, denies any fever or chills, no abdominal pain nausea or vomiting, no diarrhea constipation. No urinary symptoms. On arrival patient had an initial temp of 98.2 ? that increased to temp of 102.7?, heart rate ranging from 70s to mid 30s, respiratory rate of 17, blood pressure 178/74, satting 97% on 2 L of oxygen. Apparently was 90% on room air. Labs are significant for WBC count of hemoglobin of 13.7, hematocrit 41.2, PT of 67.2, INR of 5.6, BUN of 23, creatinine of 1.07, lactic acid of 1.3, total bili of 1.2, AST of 48, ALT of 66 (Lower than previous), BNP of 262 UA is negative, COVID-19 influenza A/B and RSV negative. No evidence of acute pulmonary embolism, no splenomegaly, stable overall lesion adjacent to the esophagus, coronary artery calcification, reflux of contrast into IVC suggesting possible elevated right heart pressure . Diastolic heart failure. Initially treated with IV Lasix drip due to severe peripheral edema and JVD, seen and evaluated by Cardiology. Subsequently taken off and placed on IV scheduled Lasix. Had negative balance of 14 liters. Placed on Lasix 40 daily. Sick sinus syndrome bradycardia. Rapid response was called due to near-syncope with hypotension. Patient also had heart rate in the 30s , telemetry monitoring showing ventricular bigeminy. He was transferred to the ICU and a temporary wire was placed. He subsequently had a [employer] chamber pacemaker placed. The next day the pacemaker was interrogated, showed to be function in normally with base rate of 60. patient had a sling on for 48 hours. Surgical wound site was clean dry and intact. Patient will follow-up with thoracic surgery in 2 weeks and Cardiology in 6 weeks to evaluate device. Atrial fibrillation. Recent diagnosis of approximately 3-4 weeks ago. INR had been supratherapeutic and patient was placed on warfarin. Had thrombocytopenia and anticoagulation was held Changed to Eliquis once platelet count was above 80. Lyme disease. Due to symptoms of bradycardia was tested for Lyme. Showed to be positive. Start on doxycycline will continue 14 day treatment. Herpes zoster. Patient with complaints of head pain from left ear to right ear. Noted to have small grouped area dried up, scabbed vesicles below left ear and almost crossing the midline below the chin. Certainly appear to be shingles. Started on Valtrex and gabapentin for pain. Attending Attestation: Patient seen and examined independently and I was present during allen portion of E/M service. Agree with Lore Franco NP's history, physical, assessment, and plan. <Clau Fracno NP - Last Filed: 01/07/21 15:44> Time Spent with Patient Time attestation: Total time spent providing and/or coordinating discharge services: <Clau Franco NP - Last Filed: 01/07/21 15:44> Discharge coordination time: Greater than 30 minutes <Clau Franco NP - Last Filed: 01/07/21 15:44> Quality: Stroke Does the patient have a stroke diagnosis?: No <Clau Franco NP - Last Filed: 01/07/21 15:44> Physical Exam Vital Signs: Vital Signs: Last Vital Signs Temp 97.8 F 01/06/21 15:12 Pulse 94 01/06/21 15:12 Resp 18 01/06/21 15:12 BP 135/78 01/06/21 15:12 Pulse Ox 97 01/06/21 15:12 Oxygen Flow Rate 2 12/28/20 19:42 Body Mass Index 31.2 <Clau Franco NP - Last Filed: 01/07/21 15:44> Appearing in no acute distress head is normocephalic atraumatic eyes pupils are PERRLA sclera is anicteric mouth throat mucous membranes are intact and moist neck is supple no lymphadenopathy, no JVD noted, herpes zoster rash, scabbed over lung sounds are clear to auscultation heart regular rate rhythm, clear S1, S2, left chest pacer site clean, no drainage positive bowel sounds, abdomen is soft, nontender neuro patient is alert x3, no focal deficits <Clau Franco NP - Last Filed: 01/07/21 15:44> DS: Data Data Completed and Pending Labs on day of discharge: Laboratory Results - last 24 hr 01/05/21 01/05/21 01/06/21 16:10 21:25 07:04 WBC RBC Hgb Hct MCV MCH MCHC RDW Plt Count MPV Absolute Nucleated RBC Nucleated RBC % (auto) POC Glucose 271 H 295 H 83 01/06/21 01/06/21 08:46 11:04 WBC 6.9 RBC 3.50 L Hgb 11.1 L Hct 34.4 L MCV 98.3 H MCH 31.7 MCHC 32.3 RDW 15.5 Plt Count 92 L MPV 11.3 Absolute Nucleated RBC 0.000 Nucleated RBC % (auto) 0.0 POC Glucose 211 H <Clau Franco NP - Last Filed: 01/07/21 15:44> Discharge Plan Discharge Anticipated Discharge Date/Time: 01/05/21 13:22 <Clau Franco NP - Last Filed: 01/07/21 15:44> Patient Disposition: Xfer Inpatient Rehab Fac <Clau Franco NP - Last Filed: 01/07/21 15:44> Discharge Diagnosis: Bradycardia status post pacemaker placement Herpes zoster Lyme disease Heart failure with preserved ejection fraction <Clau Franco NP - Last Filed: 01/07/21 15:44> Bradycardia status post pacemaker placement Herpes zoster Lyme disease Heart failure with preserved ejection fraction <Basil Larkin MD - Last Filed: 01/07/21 16:06> Referrals: [facility] [Other] - 1 Week Physician,Unknown [Primary Care Provider] - 1 Week <Clau Franco NP - Last Filed: 01/07/21 15:44> Discharge Medications: New Eliquis 5 mg Tablet 5 mg PO BID 30 Days Qty: 60 RF: 0 valacyclovir 1 gram Tablet 1,000 mg PO Q8H 6 Days Qty: 18 RF: 0 gabapentin 100 mg Capsule 100 mg PO BID 30 Days Qty: 60 RF: 0 furosemide [Lasix] 40 mg tablet 40 mg PO DAILY Qty: 30 RF: 0 Continued atorvastatin 40 mg tablet 1 tab PO BEDTIME RF: 0 losartan 25 mg tablet 1 tab PO DAILY RF: 0 fluticasone propionate 50 mcg/actuation spray,suspension 2 spray intranasal DAILY RF: 0 cholecalciferol (vitamin D3) 125 mcg (5,000 unit) capsule 1 cap PO DAILY RF: 0 Myrbetriq 25 mg tablet extended release 24 hr 1 tab PO DAILY RF: 0 Tresiba FlexTouch U-100 100 unit/mL (3 mL) insulin pen 88 unit subcut DAILY RF: 0 Combivent Respimat 20-100 mcg/actuation mist 1 puff inhalation QID RF: 0 multivitamin Tablet 1 tab PO DAILY RF: 0 insulin aspart U-100 [Novolog U-100 Insulin aspart] 100 unit/mL Solution 1 sliding scale dose SUBCUT USEASDIRECTD RF: 0 pregabalin 150 mg capsule 1 cap PO TID RF: 0 oxycodone-acetaminophen [Percocet] 5-325 mg tablet 1 tab PO TID PRN (Reason: pain) Qty: 9 RF: 0 Discontinued warfarin 2 mg tablet 4 mg PO DAILY@1700 RF: 0 <Clau Franco NP - Last Filed: 01/07/21 15:44> Discharge Orders: Discharge Order (Routine); Ordered 01/07/21 Ordered By: Clau Franco <Clau Franco NP - Last Filed: 01/07/21 15:44> Diet: advance to usual diet <Clau Franco NP - Last Filed: 01/07/21 15:44> advance to usual diet <Basil Larkin MD - Last Filed: 01/07/21 16:06> Activity on Discharge: As tolerated <Clau Franco NP - Last Filed: 01/07/21 15:44> As tolerated <Basil Larkin MD - Last Filed: 01/07/21 16:06> Stand Alone Forms: Patient Portal Discharge page <Clau Franco NP - Last Filed: 01/07/21 15:44> Care Plan Goals: Complete resolution of herpes zoster rash Avoidance of admissions for bradycardia <Clau Franco NP - Last Filed: 01/07/21 15:44> Health Concerns: Bradycardia status post pacemaker placement Herpes zoster Lyme disease Heart failure with preserved ejection fraction <Clau Franco NP - Last Filed: 01/07/21 15:44> Plan of Treatment: Follow-up with primary care provider once discharged from acute rehab You have been diagnosed with shingles and complete a 7 day course of Valtrex. Gabapentin has also been ordered for neuropathic pain. You have also been diagnosed with Lyme disease and will complete a 14 day course of doxycycline <Calu Franco NP - Last Filed: 01/07/21 15:44> Assessment: see discharge summary <Clau Franco NP - Last Filed: 01/07/21 15:44> Discharge Date/Time: 01/07/21 11:06 <Clau Franco NP - Last Filed: 01/07/21 15:44>
--- NOTE | 2021-01-06 16:22 | MHC.CM.PN ---
CM MET WITH PT AND HIS SON THIS MORNING. PT REPORTS HE WOULD LIKE TO GO TO [facility] OR [facility] HE CANNOT WALK OR USE HIS ARMS. CM MADE REFERRALS TO BOTH FACILITIES. CM MET WITH PT AND HIS THIS AFTERNOON TO INFORM THEM [facility] HAS OFFERED A BED. PT ACCEPTED THE BED AND WILL BE TRANSFERRED VIA [facility] TOMORROW, Thursday01/07/21, AT 1100 HOURS
[2021-01-06] MEDS: cefTRIAXone sodium 1 GM in 0.9 % Sodium Chloride 50 ML IV (16:33)
[2021-01-06] MEDS: Gabapentin 100 MG CAPSULE PO (16:33)
[2021-01-06 16:41] LABS: COVID-19 Test Negative (Negative); IDNOW Serial# 9DD0AD1C
[2021-01-06 16:46] LABS: Glucose, Whole Blood 335 mg/dL (60-115)
[2021-01-06 20:31] LABS: Glucose, Whole Blood 350 mg/dL (60-115)
[2021-01-06] MEDS: Atorvastatin Calcium 40 MG TABLET PO (21:11)
[2021-01-06] MEDS: Apixaban 5 MG TABLET PO (21:11)
[2021-01-07 03:59] VITALS: BP 138/61; PULSE 74; RESP 18; TEMP 36.4; O2SAT 96
[2021-01-07 05:34] VITALS: BMI 29.0
[2021-01-07 06:56] LABS: Hematocrit 31.4 % (42-52); Hemoglobin 10.1 g/dl (14.0-18.0); Mean Corpuscular HGB Conc 32.2 g/dl (31.0-36.0); Mean Corpuscular Volume 99.4 fL (80-98); Mean Platelet Volume 11.5 fL (9.4-12.4); Red Blood Count 3.16 X10*6/uL (4.60-5.80); Red Cell Distribution Width 15.6 % (11.0-16.0); White Blood Count 6.4 X10*3/uL (4.8-10.8)
[2021-01-07 06:57] LABS: Platelet Count 92 X10*3/uL (160-400)
[2021-01-07 07:10] LABS: Glucose, Whole Blood 91 mg/dL (60-115)
[2021-01-07 07:18] LABS: Anion Gap 10 (12-20); Blood Urea Nitrogen 28 mg/dL (9-16); Calcium 8.8 mg/dL (8.4-10.2); Carbon Dioxide 27 mmol/L (22-29); Chloride 107 mmol/L (96-108); Creatinine Clr Calc Pharmacy 63.1; Estimated Glomerular Filt Rate > 60; Glucose Random 84 mg/dL (60-115); Potassium 4.4 mmol/L (3.3-5.1); Sodium 140 mmol/L (135-145)
[2021-01-07 07:56] VITALS: BP 137/64; PULSE 67; RESP 18; TEMP 36.4; O2SAT 97
--- NOTE | 2021-01-07 08:23 | MHC.CM.PN ---
Patient has been medically cleared for dc today. Patient will be dc to [facility] today at 11AM, via [facility]. IMM addressed with Patient this morning, providing Patient with the original and placing a copy on the chart. Patient is aware of and in agreement with the dc plan.
[2021-01-07] MEDS: Pregabalin 150 MG CAPSULE PO (09:38)
[2021-01-07] MEDS: Multivitamin TABLET 1 TAB PO (09:38)
[2021-01-07] MEDS: Gabapentin 100 MG CAPSULE PO (09:39)
[2021-01-07] MEDS: Apixaban 5 MG TABLET PO (09:40)
[2021-01-07] MEDS: Insulin Glargine,Hum.rec.anlog 100 UNIT/ML 10 ML VIAL 90 UNIT SUBCUT (09:41)
[2021-01-07] MEDS: 0.9 % Sodium Chloride Flush 3 ML SYRINGE IVFLUSH (09:41)
[2021-01-07] MEDS: Fluticasone Propionate Nasal 16 GM SPRAY 2 SPRAY NOSTRIL-B (09:41)
[2021-01-07 11:15] LABS: Glucose, Whole Blood 231 mg/dL (60-115)
== END 2021-01-07 11:06 | DRG 242 ==
LOC: HO.ED 23:25 → HO.EDOVER 12-29 00:20 → HO.IMC 12-29 01:37 → HO.ICU 12-30 09:55 → HO.IMC 01-03 17:27
PROVIDERS: Family Medicine; Internal Medicine; Internal Medicine Cardiovascular Disease; Internal Medicine Pulmonary Disease; Nurse Practitioner Family; Physician Assistant; Physician Assistant Medical; Student in an Organized Health Care Education/Training Program; Surgery; Admitting Provider Internal Medicine; Emergency Provider Emergency Medicine; Visit Provider Nurse Practitioner Acute Care
PROC: 0JH606Z Insertion of Pacemaker, Dual Chamber into Chest Subcutaneous Tissue and Fascia, Open Approach (ICD-10-PCS; principal; 2021-01-03 13:30)
DX: I45.2 Bifascicular block (principal); I50.31 Acute diastolic (congestive) heart failure; A77.49 Other ehrlichiosis; N17.9 Acute kidney failure, unspecified; A69.20 Lyme disease, unspecified; I11.0 Hypertensive heart disease with heart failure; I48.19 Other persistent atrial fibrillation; I49.5 Sick sinus syndrome; I25.10 Atherosclerotic heart disease of native coronary artery without angina pectoris; R29.6 Repeated falls; R79.1 Abnormal coagulation profile; E11.649 Type 2 diabetes mellitus with hypoglycemia without coma; E11.65 Type 2 diabetes mellitus with hyperglycemia; I25.2 Old myocardial infarction; M25.512 Pain in left shoulder; B02.9 Zoster without complications; I49.3 Ventricular premature depolarization; D72.819 Decreased white blood cell count, unspecified; D69.6 Thrombocytopenia, unspecified; Z20.822 Contact with and (suspected) exposure to COVID-19; Z91.81 History of falling; Z79.01 Long term (current) use of anticoagulants; Z79.51 Long term (current) use of inhaled steroids; Z79.899 Other long term (current) drug therapy
CPT/HCPCS: 0241U; 36415; 70450; 71045; 71275; 73030; 80048; 80053; 80076; 81001; 82040; 82947; 83605; 83735; 83880; 84100; 84484; 85007; 85025; 85027; 85610; 85652; 86140; 86617; 86618; 86850; 86900; 86901; 87040; 87635; 93005; 93226; 94640; 94799; 97162; 97163; 99285; C1758; C1785; C1892; C1898; J0696; J1610; J1940; J2370; J3010; J3370; J3475; P9047

== ENCOUNTER → 2021-02-12 14:21 | Outpatient (BNVA) | payer MEDICARE, SELFPAY | PROVIDERS: Visit Provider Internal Medicine Cardiovascular Disease | DX: Z45.018 Encounter for adjustment and management of other part of cardiac pacemaker (principal); I48.19 Other persistent atrial fibrillation; I50.30 Unspecified diastolic (congestive) heart failure | CPT/HCPCS: 99212 ==

== ENCOUNTER 2021-02-20 09:26 | Day surgery (SDC) | payer MEDICARE, SELFPAY ==
--- NOTE | 2021-02-19 12:43 | HO.ANESPROP2 ---
Documented by User: Natalia Geeta 02/19/21 15:39 HPI - Anesthesia Eval Consult details Narrative: 85yo M for Cardioversion s/p pacer insertion 01/03/21 with OLIVIA Higgins for afib PMFSH Active Problems Active Problems: All Active Problems (Updated 02/12/21 @ 14:41 by Titi Deluca MD) (HFpEF) heart failure with preserved ejection fraction (Acute) Cardiac pacemaker in situ (Acute) Shingles (herpes zoster) polyneuropathy (Acute) Suspected Lyme disease (Acute) Anaplasmosis (Acute) Persistent atrial fibrillation (Acute) Past Medical History Medical History (HFpEF) heart failure with preserved ejection fraction Acute diastolic (congestive) heart failure Acute kidney injury Atrial fibrillation Bifascicular block CAD (coronary artery disease) Cardiac pacemaker in situ CHF exacerbation Diabetes Fever of unknown origin Hepatorenal syndrome HLD (hyperlipidemia) HTN (hypertension) Leukopenia Myocardial infarct, old PAF (paroxysmal atrial fibrillation) Pancytopenia Prostate CA PVC (premature ventricular contraction) Supratherapeutic INR Symptomatic bradycardia Thrombocytopenia Ventricular bigeminy Social History Social History Household Members: Spouse Housing: House Do you presently have visiting nurse or other home services: Yes (vna qd to check inr/ call md for adjustment of coumadin) Alcohol intake: never Patient Tobacco Use Status: Former Tobacco user Tobacco use type: Cigarette Years Smoked: 10 Use of substances other than those prescribed or required for medical reasons: No Are you DNR?: No Advance Directives: No Advance Directives Information Provided: Yes Current occupational status: retired [employer] Allergies Allergy/AdvReac Type Severity Reaction Status Date / Time No Known Allergies Allergy Mild N/A Verified 02/20/21 09:43 Home Medications Medication Instructions Recorded Confirmed Last Taken Type Combivent Respimat 1 puff INHALATION QID 12/14/20 02/12/21 02/20/21 08:00 History Tresiba FlexTouch U-100 88 unit SUBCUT DAILY 12/14/20 02/12/21 02/20/21 08:00 History 60 Units cholecalciferol (vitamin D3) 1 cap PO DAILY 12/14/20 02/12/21 02/20/21 08:00 History fluticasone propionate 2 spray INTRANASAL DAILY 12/14/20 02/12/21 02/20/21 08:00 History insulin aspart U-100 [Novolog 1 sliding scale dose SUBCUT 12/14/20 02/12/21 Unknown History U-100 Insulin aspart] USEASDIRECTD losartan 1 tab PO DAILY 12/14/20 02/12/21 Unknown History multivitamin 1 tab PO DAILY 12/14/20 02/12/21 Unknown History pregabalin 1 cap PO TID 12/28/20 02/12/21 02/20/21 08:00 History atorvastatin 40 mg tablet 40 mg PO BEDTIME 02/12/21 02/12/21 Unknown History Exam Exam Date and Time: February 19, 2021 1243 Pertinent Lab Results Pertinent Lab Results: Laboratory Tests 01/07/21 01/07/21 05:31 05:31 WBC 6.4 Hgb 10.1 L Hct 31.4 L Plt Count 92 L Sodium 140 Potassium 4.4 Chloride 107 Carbon Dioxide 27 BUN 28 H Creatinine 0.92 Narrative Narrative: Pacer Interr 01/2021 Dual-chamber [employer] pacemaker in place programmed in [facility]DI. Patient noted to be in atrial fibrillation. Ventricular sensing was adequate. Ventricular pacing thresholds adequate and reprogrammed to enhance battery life. Pacing lead impedance is stable. Battery life is excellent EKG 12/2020 Vent. Rate : 072 BPM Atrial Rate : 072 BPM P-R Int : 000 ms QRS Dur : 166 ms QT Int : 470 ms P-R-T Axes : 000 -65 -56 degrees QTc Int : 515 ms Atrial fibrillation wit slow ventricular response and PVCs in bigeminy pattern Right bundle branch block Left anterior fascicular block Bifascicular block T wave abnormality, consider inferior ischemia Abnormal ECG When compared with ECG of 30-DEC-2020 09:40, No significant changes seen ECHO 11/2020 Conclusions: - 1. Low normal LV ejection fraction with LVEF of 50-55% with mild LVH 2. Mildly dilated left atrium 3. Normal cardiac valvular Doppler 4. Normal RV systolic pressure 5. No gross pericardial effusion Assessment and Plan Assessment Anesthesia Assessment: Chart Reviewed Documented by User: Katie Sinclair 02/20/21 10:37 [facility] Past Medical History Medical History (HFpEF) heart failure with preserved ejection fraction Acute diastolic (congestive) heart failure Acute kidney injury Atrial fibrillation Bifascicular block CAD (coronary artery disease) Cardiac pacemaker in situ CHF exacerbation Diabetes Fever of unknown origin Hepatorenal syndrome HLD (hyperlipidemia) HTN (hypertension) Leukopenia Myocardial infarct, old PAF (paroxysmal atrial fibrillation) Pancytopenia Prostate CA PVC (premature ventricular contraction) Supratherapeutic INR Symptomatic bradycardia Thrombocytopenia Ventricular bigeminy Social History Social History Household Members: Spouse Housing: House Do you presently have visiting nurse or other home services: Yes (vna qd to check inr/ call md for adjustment of coumadin) Alcohol intake: never Patient Tobacco Use Status: Former Tobacco user Tobacco use type: Cigarette Years Smoked: 10 Use of substances other than those prescribed or required for medical reasons: No Are you DNR?: No Advance Directives: No Advance Directives Information Provided: Yes Current occupational status: retired Meds Allergies Allergy/AdvReac Type Severity Reaction Status Date / Time No Known Allergies Allergy Mild N/A Verified 02/20/21 09:43 Home Medications Medication Instructions Recorded Confirmed Last Taken Type Combivent Respimat 1 puff INHALATION QID 12/14/20 02/12/21 02/20/21 08:00 History Tresiba FlexTouch U-100 88 unit SUBCUT DAILY 12/14/20 02/12/21 02/20/21 08:00 History 60 Units cholecalciferol (vitamin D3) 1 cap PO DAILY 12/14/20 02/12/21 02/20/21 08:00 History fluticasone propionate 2 spray INTRANASAL DAILY 12/14/20 02/12/21 02/20/21 08:00 History insulin aspart U-100 [Novolog 1 sliding scale dose SUBCUT 12/14/20 02/12/21 Unknown History U-100 Insulin aspart] USEASDIRECTD losartan 1 tab PO DAILY 12/14/20 02/12/21 Unknown History multivitamin 1 tab PO DAILY 12/14/20 02/12/21 Unknown History pregabalin 1 cap PO TID 12/28/20 02/12/21 02/20/21 08:00 History atorvastatin 40 mg tablet 40 mg PO BEDTIME 02/12/21 02/12/21 Unknown History Exam Airway Mallampati Class: II TM Dist: >3cm Neck ROM: Full Assessment and Plan Assessment Anesthesia Assessment: Anesthesia Plan Discussed and Chart Reviewed Final Anesthetic Review ASA Class: III Final Preanesthetic Review: No Changes in Pt Med Stat, Meds/Allgs Chart Reviewed, Consent Obtained/Reviewed and Anes Risks/Benef Reviewed Patient Risk: Intermediate Procedure Risk: Low Assessment/Block/Sedation in SS: Assess/Block/Sedation-SS Anesthetic Plan Anesthetic Plan: MAC: Disposition: Standard PACU
--- NOTE | 2021-02-20 08:44 | MHC.SHP ---
Pre-Procedural Eval Section A Date of Service: 02/20/21 The patient is an INPATIENT: No Changes since office visit: Yes Patient answered all questions; No Cold of Flu in the past 2 weeks, No New Medical Problems and No Changes in Medication Section B Chief Complaint: a-fib Allergies: Allergies Allergy/AdvReac Type Severity Reaction Status Date / Time No Known Allergies Allergy Mild N/A Verified 12/28/20 19:51 Plan I have reviewed the history and physical and performed a pertinent physical examination on my patient. No changes have occurred unless specified.
[2021-02-20 09:50] VITALS: BP 123/48; PULSE 73; RESP 16; TEMP 36.7; O2SAT 97; BMI 28.1
[2021-02-20 09:55] LABS: Glucose, Whole Blood 173 mg/dL (60-115)
[2021-02-20] MEDS: Lactated Ringers 500 ML 20 ML IVCONT (10:53)
--- NOTE | 2021-02-20 11:14 | ECG_ITS ---
Test Reason : S/P CARDIOVERSION Blood Pressure : / mmHG Vent. Rate : 082 BPM Atrial Rate : 055 BPM P-R Int : 000 ms QRS Dur : 176 ms QT Int : 462 ms P-R-T Axes : 000 -73 111 degrees QTc Int : 539 ms AV dual-paced complexes with Premature ventricular complexes with intermittent sinus beat with Vpaced complex Abnormal ECG When compared with ECG of 30-DEC-2020 09:42, Atrial-paced rhythm is now Present Referred By: Titi Deluca Electronically Signed By:TITI DELUCA MD
[2021-02-20 11:20] VITALS: BP 124/55; PULSE 80; RESP 16; TEMP 36.7; O2SAT 95
[2021-02-20 11:35] VITALS: BP 105/62; PULSE 66; RESP 18; O2SAT 96
--- NOTE | 2021-02-20 11:39 | HO.CARDIVERS ---
Cardioversion Procedure Note Cardioversion Date of Procedure: Today Ordering Provider: Myself Performing Provider: Myself Indication for Procedure: Persistent atrial fibrillation with symptoms Pre-Op Diagnosis: Same Post-Op Diagnosis: Successful conversion to GUS Performed with Transesophageal Echo: No History: See details in out patient note Consent: Verbal and Written consent was obtained from the patient before starting the procedure and confirming use of Eliquis.. The patient was made aware of the risk of the procedure including benefits, alternatives and second opinion Procedure: After consent obtained, cardioversion pads were attached AP configurartion and the patient was sedated by the anesthesia team. Once adequate sedation achieved, patient was delivered 120 J biphasic synchronized energy in AP configuration Complications: NOne Impression: Successful conversion to NSR Recommendations: 1. 12 lead EKG 2> Pacer reprogrammed 3. COntinue ELiquis uninterrupted 4. Folow up in clinic in 2 week
[2021-02-20 11:50] VITALS: BP 112/67; PULSE 86; RESP 18; TEMP 36.8; O2SAT 99
== END 2021-02-20 13:17 | disposition home or self-care (01) ==
PROVIDERS: PCP Internal Medicine; Visit Provider Internal Medicine Cardiovascular Disease
PROC: 5A2204Z Restoration of Cardiac Rhythm, Single (ICD-10-PCS; principal; 2021-02-20 11:00)
DX: I48.19 Other persistent atrial fibrillation (principal); Z79.01 Long term (current) use of anticoagulants; I11.0 Hypertensive heart disease with heart failure; I50.31 Acute diastolic (congestive) heart failure; Z95.0 Presence of cardiac pacemaker; E11.9 Type 2 diabetes mellitus without complications; C61 Malignant neoplasm of prostate; Z79.4 Long term (current) use of insulin; Z79.51 Long term (current) use of inhaled steroids; Z87.891 Personal history of nicotine dependence; Z79.899 Other long term (current) drug therapy
CPT/HCPCS: 82947; 92960; 93005

== ENCOUNTER 2021-02-22 09:54 | Outpatient (REF) | payer MEDICARE, SELFPAY ==
--- NOTE | ~2021-02-22 | CT_ITS ---
EXAMINATION: CT CHEST WITH CONTRAST CLINICAL INFORMATION: Enlarged lymph nodes COMPARISON: Previous chest x-ray most recent December [address] scans, most recent chest CTA December [address] December 2018 TECHNIQUE: Multidetector volumetric CT imaging of the chest was obtained after the administration of 50 mL of Omnipaque 350 intravenous contrast without immediate adverse reactions. Axial MIP volume rendering provided. Sagittal and coronal reformatted images were obtained. This CT examination was performed using dose optimization techniques as appropriate, variously including the following: *Automated exposure control *Adjustment of mA and/or kV according to patient size (this includes techniques or standardized protocols for targeted exams where dose is matched to indication/reason for exam; i.e. extremities or head) *Use of iterative reconstruction technique DLP: 163 mGy-cm FINDINGS: LUNGS: There are small calcified pulmonary nodules that are stable. MEDIASTINUM: There are small mediastinal lymph nodes. The previously identified enlarged posterior mediastinal lymph node adjacent to the esophagus and azygos esophageal recess on previous exams is no longer seen. The heart does not appear enlarged. There is coronary artery calcification. There is a left subclavian dual chamber pacemaker. There is no pericardial effusion. The thoracic aorta is normal in caliber. The visualized thyroid gland is unremarkable. PLEURA: There is no pleural effusion. No pleural mass or thickening. AXILLA: No lymphadenopathy. UPPER ABDOMEN: There may be a small gallstone in the gallbladder. OSSEOUS STRUCTURES: There are degenerative changes of the spine. There is a fracture of the left lateral sixth rib that is unchanged. CT/CT chest w con IMPRESSION: Small mediastinal lymph nodes. No enlarged lymph nodes seen. The previously identified enlarged posterior mediastinal lymph node adjacent to the esophagus has decreased in size. Coronary artery calcification. Left subclavian dual chamber pacemaker.
[2021-02-22 10:58] LABS: Blood Urea Nitrogen 27 mg/dL (9-16); Estimated Glomerular Filt Rate 56
[2021-02-22] MEDS: iohexoL 350 MG/ML 100 ML INFUS..BTL 65 ML IV (11:31)
== END 2021-02-22 09:55 | disposition home or self-care (01) ==
LOC: HO.CT 09:54
PROVIDERS: Visit Provider Surgery
DX: R59.0 Localized enlarged lymph nodes (principal); Z95.0 Presence of cardiac pacemaker
CPT/HCPCS: 36415; 71260; 82565; 84520; Q9967

== ENCOUNTER 2021-02-22 11:44 | Emergency (ER) | payer MEDICARE, SELFPAY ==
[2021-02-22 12:07] VITALS: BP 154/77; PULSE 53; RESP 18; TEMP 36.6; O2SAT 97; BMI 28.1
[2021-02-22 13:21] LABS: Appearance Urine HAZY; Color Urine YELLOW; Glucose Urine UA >=1000 MG/DL (NEG); Leukocyte Esterase Urine NEG (NEG); Nitrite Urine NEG (NEG); Specific Gravity - Urine <= 1.005 (1.005-1.025); Urine Blood 2+ (NEG); Urine Ketones NEG (NEG); Urine Protein NEG (NEG-TRACE)
--- NOTE | 2021-02-22 13:35 | ED_ITS ---
HPI - Male Genitourinary General Chief complaint: Urogenital-Male Stated complaint: blood in urine Time Seen by Provider: 02/22/21 13:16 Source: patient Mode of arrival: ambulatory Limitations: no limitations History of Present Illness HPI Narrative: 85-year-old male who presents emergency department for evaluation of dysuria and hematuria. Patient states that he has had a burning sensation with urinating for the past week. He states that station got worse over the past 3 days. The patient does take Lasix and he states that he always has urinary frequency. Patient states that today he noticed red blood in his urine. The patient does have a history of atrial fibrillation and is on Eliquis. He denied fever, chills, nausea, vomiting, abdominal pain, flank pain. The patient has a history of atrial fibrillation and was cardioverted 3 days prior. Related Data Home Medications Medication Instructions Recorded Confirmed Combivent Respimat 1 puff INHALATION QID 12/14/20 02/12/21 Tresiba FlexTouch U-100 88 unit SUBCUT DAILY 12/14/20 02/12/21 cholecalciferol (vitamin D3) 1 cap PO DAILY 12/14/20 02/12/21 fluticasone propionate 2 spray INTRANASAL DAILY 12/14/20 02/12/21 insulin aspart U-100 [Novolog 1 sliding scale dose SUBCUT 12/14/20 02/12/21 U-100 Insulin aspart] USEASDIRECTD losartan 1 tab PO DAILY 12/14/20 02/12/21 multivitamin 1 tab PO DAILY 12/14/20 02/12/21 pregabalin 1 cap PO TID 12/28/20 02/12/21 atorvastatin 40 mg tablet 40 mg PO BEDTIME 02/12/21 02/12/21 Previous Rx's Medication Instructions Recorded gabapentin 100 mg PO BID 30 Days #60 cap 01/06/21 furosemide 20 mg tablet 20 mg PO DAILY #45 tab 02/12/21 apixaban 5 mg tablet 5 mg PO BID 30 Days #60 tab 02/20/21 ciprofloxacin HCl [Cipro] 500 mg PO Q12H 7 Days #14 tab 02/22/21 Allergies Allergy/AdvReac Type Severity Reaction Status Date / Time No Known Allergies Allergy Mild N/A Verified 02/20/21 09:43 Review of Systems Review of Systems: Yes all other systems are reviewed and are negative PMFSH Past Medical History Medical History (HFpEF) heart failure with preserved ejection fraction Acute diastolic (congestive) heart failure Acute kidney injury Atrial fibrillation Bifascicular block CAD (coronary artery disease) Cardiac pacemaker in situ CHF exacerbation Diabetes Fever of unknown origin Hepatorenal syndrome HLD (hyperlipidemia) HTN (hypertension) Leukopenia Myocardial infarct, old PAF (paroxysmal atrial fibrillation) Pancytopenia Prostate CA PVC (premature ventricular contraction) Supratherapeutic INR Symptomatic bradycardia Thrombocytopenia Ventricular bigeminy Social History Social History Household Members: Spouse Housing: House Do you presently have visiting nurse or other home services: Yes (vna qd to check inr/ call md for adjustment of coumadin) Alcohol intake: never Patient Tobacco Use Status: Former Tobacco user Tobacco use type: Cigarette Years Smoked: 10 Advance Directives: Yes Advance Directives Information Provided: Yes Advance Directives on File: No Current occupational status: retired Physical Exam Vital Signs: Vital Signs: Last Vital Signs Temp 97.9 F 02/22/21 12:07 Pulse 53 02/22/21 12:07 Resp 18 02/22/21 12:07 BP 154/77 H 02/22/21 12:07 Pulse Ox 97 02/22/21 12:07 Body Mass Index 28.1 Const: General: cooperative Orientation/consciousness: oriented to person and oriented to place Limitations: no limitations HENMT: Head: Yes normal to inspection, Yes normocephalic and Yes atraumatic Ears: external ears normal General nose exam: Normal external nose present Face and sinus: Yes normal facial exam Mouth: Normal oral and palatal mucosa present Throat: Yes posterior oropharynx normal Eyes: Periorbital: periorbital findings normal Eyelids: Yes eyelids normal Conjunctivae: conjunctivae normal Sclerae: sclerae normal Corneas: corneas normal Pupils: Equal, round and reactive pupils present Direct Ophthalmoscopy: normal light reflex Neck: Neck: Yes full ROM, Yes no lymphadenopathy, Yes no meningeal signs, Yes trachea midline and Yes supple Chest: Chest palpation & inspection: normal inspection of the chest and normal palpation of entire chest wall Resp: Effort & Inspection: normal respiratory effort and able to speak in complete sentences Auscultation: clear to auscultation bilaterally Cardio: Rate: regular rate Rhythm: regular rhythm Heart sounds: S1 normal heart sound present, S2 normal heart sound present and no murmurs GI: Inspection: Yes normal to inspection Palpation (GI): Soft to palpation, nontender, no guarding, not rigid and No hepatosplenomegaly present : General: Yes no CVA tenderness Back/Spine/Pelvis: Back: no CVA tenderness Cervical Spine: normal cervical lordosis Thoracic/Lumbar Spine: thoracic and lumbar spine normal to inspection Skin: Lesions: no lesions Rashes: no rashes Wounds: no wounds Neuro: General: oriented to person, oriented to place and no meningeal signs Cranial nerves: Yes CN's II-XII intact bilaterally and Yes Equal, round and reactive pupils present Cognition (Neuro): normal cognition Motor exam (neuro): 5/5 motor strength present throughout Extrem: General: Yes normal to inspection and Yes full ROM Psych: Appearance: well kempt Mental Status: mental status grossly normal Speech and movement: Normal speech and movement present Affect: normal affect Attitude: cooperative Thought process: Normal thought process present Thought content: Normal thought content present Course Course Course Narrative: 85-year-old male who presents emergency department for evaluation of dysuria x1 week with symptoms getting worse x3 days and hematuria that started this morning. The patient is on Eliquis for his atrial fibrillation. Physical examination revealed no abdominal or flank tenderness. Urinalysis revealed 2+ blood, negative nitrates and negative leukocyte Estrace. I am concerned that the patient may have nonspecific urethritis verses a bladder infection as the cause of his symptoms I did discuss this with him. The patient was started on ciprofloxacin 500 mg, 1 pill every 12 hours x7 days. He is also advised to take Tylenol as needed for pain. The patient was given verbal and printed instructions prior to discharge. The patient was advised to follow-up with their PCP in 2 days and to return to the emergency department if their symptoms get worse or if they develop any new symptoms that are concerning to them. MDM - Male Genitourinary Lab Data Labs: Lab Results 02/22/21 Range/Units 13:11 Urine Color YELLOW Urine Appearance HAZY Urine pH 6.0 (5.0-8.0) Ur Specific [place] <= 1.005 (1.005-1.025) Urine Protein NEG (NEG-TRACE) MG/DL Urine Glucose (UA) >=1000 H (NEG) MG/DL Urine Ketones NEG (NEG) MG/DL Urine Blood 2+ H (NEG) Urine Nitrite NEG (NEG) Ur Leukocyte Esterase NEG (NEG) Discharge Plan Discharge Clinical Impression: Dysuria Hematuria Qualifiers: Hematuria type: gross Qualified Code(s): R31.0 - Gross hematuria Patient Disposition: Home, Self-Care Instructions: Urinary Tract Infection in Men (ED) Additional Instructions: I am treating you for possible urinary tract infection. Take ciprofloxacin 500 mg pills, 1 pill twice a day for 7 days. Take ibuprofen 200 mg pills, 3 pills every 6 hours as needed for pain.Take Tylenol (acetaminophen) 500 mg pills, 2 pills every 4 to 6 hours as needed for pain. Follow-up with your doctor in 2 days. Please return to the emergency department if your symptoms get worse or if you develop any symptoms that are concerning to you. Prescriptions: New ciprofloxacin HCl [Cipro] 500 mg tablet 500 mg PO Q12H 7 Days Qty: 14 RF: 0 No Action Eliquis 5 mg tablet 5 mg PO BID 30 Days Qty: 60 RF: 3 losartan 25 mg tablet 1 tab PO DAILY RF: 0 fluticasone propionate 50 mcg/actuation spray,suspension 2 spray intranasal DAILY RF: 0 cholecalciferol (vitamin D3) 125 mcg (5,000 unit) capsule 1 cap PO DAILY RF: 0 Tresiba FlexTouch U-100 100 unit/mL (3 mL) insulin pen 88 unit subcut DAILY RF: 0 Combivent Respimat 20-100 mcg/actuation mist 1 puff inhalation QID RF: 0 multivitamin Tablet 1 tab PO DAILY RF: 0 insulin aspart U-100 [Novolog U-100 Insulin aspart] 100 unit/mL Solution 1 sliding scale dose SUBCUT USEASDIRECTD RF: 0 atorvastatin 40 mg tablet 40 mg PO BEDTIME RF: 0 pregabalin 150 mg capsule 1 cap PO TID RF: 0 gabapentin 100 mg Capsule 100 mg PO BID 30 Days Qty: 60 RF: 0 furosemide [Lasix] 20 mg tablet 20 mg PO DAILY Qty: 45 RF: 3
[2021-02-22 13:44] LABS: RBC Urine 30-49 /HPF (0); Renal Epithelial Cells Urine TRACE /LPF; Squamous Epithelial Cell Urine TRACE /LPF
[2021-02-22 13:50] VITALS: BP 125/67; PULSE 62; RESP 16; TEMP 37.1; O2SAT 97
== END 2021-02-22 14:07 | disposition home or self-care (01) ==
PROVIDERS: Emergency Provider Emergency Medicine Emergency Medical Services; PCP Internal Medicine
DX: R31.0 Gross hematuria (principal); R30.0 Dysuria; I48.0 Paroxysmal atrial fibrillation; I11.0 Hypertensive heart disease with heart failure; I50.30 Unspecified diastolic (congestive) heart failure; Z79.01 Long term (current) use of anticoagulants; Z79.899 Other long term (current) drug therapy
CPT/HCPCS: 81001; 99282; 99283; 99284

== ENCOUNTER 2021-03-07 12:45 | Outpatient (REF) | payer MEDICARE, SELFPAY ==
--- NOTE | ~2021-03-07 | XR_ITS ---
EXAMINATION: XR THORACIC SPINE CLINICAL INFORMATION: Mid back pain. COMPARISON: CT chest dated 02/22/2021. TECHNIQUE: 3 views of the thoracic spine were obtained. FINDINGS: Mild dextrocurvature of the lumbar spine. The thoracic kyphosis is maintained. No acute fracture or subluxation. No loss of vertebral body height. Multilevel loss of intervertebral disc height with anterior endplate osteophytes. No lytic or blastic osseous lesion. The visualized lungs are clear. Left chest wall pacer with its leads in the right heart. XR/XR thoracic spine 3V IMPRESSION: Multilevel degenerative disc disease, not significantly changed.
== END 2021-03-07 12:46 | disposition home or self-care (01) ==
LOC: HO.HMGCX 12:45
PROVIDERS: PCP Internal Medicine; Visit Provider Internal Medicine
DX: M54.6 Pain in thoracic spine (principal)
CPT/HCPCS: 72072

== ENCOUNTER → 2021-03-20 13:49 | Outpatient (BNVA) | payer MEDICARE, SELFPAY | PROVIDERS: PCP Internal Medicine; Referring Provider Internal Medicine; Visit Provider Internal Medicine Cardiovascular Disease | DX: I50.30 Unspecified diastolic (congestive) heart failure (principal); I48.0 Paroxysmal atrial fibrillation; Z45.018 Encounter for adjustment and management of other part of cardiac pacemaker; Z79.01 Long term (current) use of anticoagulants; Z79.899 Other long term (current) drug therapy | CPT/HCPCS: 93005; 99212 ==

== ENCOUNTER → 2021-03-22 09:22 | Outpatient (BNVA) | payer MEDICARE, SELFPAY | PROVIDERS: PCP Internal Medicine; Visit Provider Surgery | DX: R59.0 Localized enlarged lymph nodes (principal); Z79.899 Other long term (current) drug therapy; Z87.891 Personal history of nicotine dependence | CPT/HCPCS: 99212 ==

== ENCOUNTER 2021-04-18 11:22 | Outpatient (REF) | payer MEDICARE, SELFPAY ==
--- NOTE | ~2021-04-18 | XR_ITS ---
EXAMINATION: XR CERVICAL SPINE CLINICAL INFORMATION: Right neck pain; question degenerative disc disease. COMPARISON: Prior radiographs, most recently 03/12/2011. TECHNIQUE: Frontal, odontoid and lateral views of the cervical spine were obtained. FINDINGS: There is bony demineralization. There is reversal of the normal lordotic curvature. At C2-C3, there is a 3 mm anterolisthesis. There is marked degenerative disc disease at C3-C4 and C4-C5, with partial fusion. There is moderately severe degenerative disc disease at C5-C6 and C6-C7. No acute fracture or spondylolisthesis is seen. There is multi-level cervical spondylosis and facet arthropathy. The dens is intact. There is no prevertebral soft tissue swelling. There is calcifications the ligamentum nuchae. XR/XR cervical spine 3V IMPRESSION: 1. There is severe degenerative disc disease at C3-C4 and C4-C5, moderately severe degenerative disc disease at C5-C6 and C6-C7, and mild degenerative disc disease at C2-C3. 2. No acute fracture or spondylolisthesis is seen. 3. There is reversal of normal lordotic curvature, which can be associated with muscle spasm. 4. There is multi-level cervical spondylosis and facet arthropathy.
== END 2021-04-18 11:23 | disposition home or self-care (01) ==
LOC: HO.HMGCX 11:22
PROVIDERS: PCP Internal Medicine; Visit Provider Internal Medicine
DX: M54.2 Cervicalgia (principal)
CPT/HCPCS: 72040

== ENCOUNTER 2021-05-10 13:25 | Emergency (ER) | payer MEDICARE, SELFPAY ==
--- NOTE | ~2021-05-10 | CT_ITS ---
EXAMINATION: CT ABDOMEN AND PELVIS WITH CONTRAST CLINICAL INFORMATION: Left lower quadrant pain COMPARISON: None TECHNIQUE: Multidetector volumetric images were obtained from the superior aspect of the liver through the pubic symphysis following administration 85 mL of Omnipaque 350 intravenous contrast. Sagittal and coronal reformatted images were obtained on the technologist's workstation. Oral contrast: No This CT examination was performed using dose optimization techniques as appropriate, variously including the following: *Automated exposure control *Adjustment of mA and/or kV according to patient size (this includes techniques or standardized protocols for targeted exams where dose is matched to indication/reason for exam; i.e. extremities or head) *Use of iterative reconstruction technique DLP: 588 mGy-cm FINDINGS: LUNG BASES: The visualized lung bases are unremarkable. LIVER, GALLBLADDER, AND BILIARY TREE: The liver is normal in size, shape, and attenuation. No focal hepatic lesion or biliary ductal dilatation is present. The gallbladder is unremarkable with no evidence of radiopaque gallstones, gallbladder wall thickening, or obvious pericholecystic inflammatory changes. PANCREAS: Unremarkable. SPLEEN: Unremarkable. ADRENAL GLANDS: Unremarkable. KIDNEYS AND URETERS: The kidneys are normal in size, shape, and attenuation. No hydronephrosis, hydroureter, or calculi seen. No perinephric stranding. Incidental cortical and parapelvic cysts left kidney. BLADDER: Unremarkable. GASTROINTESTINAL TRACT: Moderately severe diverticular disease noted with mild acute inflammatory changes at the junction of the descending and sigmoid colon relatively pronounced bowel wall edema and fluid. There is no obstruction appearance is consistent with acute diverticulitis. Normal appendix. No small bowel abnormality. ABDOMINAL WALL: Penile implant noted. LYMPH NODES: Normal. VASCULAR: Unremarkable. PELVIC VISCERA: Prostate gland appears to be surgically absent. Seminal vesicles also appear absent. Clips noted. OSSEOUS STRUCTURES: Fusion changes posteriorly at L3-L4 noted. Advanced spondylosis throughout. CT/CT abdomen pelvis w con IMPRESSION: Acute diverticulitis left lower quadrant as above. Recommend follow-up lower GI assessment to exclude an underlying lesion following resolution of acute symptoms electively.
[2021-05-10 13:26] VITALS: BP 144/73; PULSE 70; RESP 16; TEMP 36.2; O2SAT 96; BMI 29.0
[2021-05-10 14:59] VITALS: BP 131/69; PULSE 78; RESP 17; TEMP 37.1; O2SAT 97
--- NOTE | 2021-05-10 15:00 | ED.ABDPAIN ---
HPI - Abdominal Pain General Chief Complaint: Abdominal Pain Stated Complaint: low lt abd pain Time Seen by Provider: 05/10/21 15:00 Source: patient Mode of arrival: ambulatory Limitations: no limitations History of Present Illness HPI narrative: 85-year-old male presents with left lower quadrant pain that started yesterday. The pain is worse when he moves and when he pushes on it, states with movement pain is a 10/10. No radiation to his back, no radiation to his testes. No diarrhea, no vomiting no nausea. No dysuria. No chest pain, no shortness of breath. Patient was sent here from his primary care's office for CT of abdomen. MD elicited complaint: abdominal pain Pertinent past history: none Onset (ago): day(s) (1) Pain Consistency: constant Location: LLQ Severity: severe Quality: cramping and aching Radiation: none Migration to: no migration Relieving factors: movement Associated symptoms: denies other symptoms Related Data Home Medications Medication Instructions Recorded Confirmed cholecalciferol (vitamin D3) 125 1 cap PO DAILY 12/14/20 03/22/21 mcg (5,000 unit) capsule fluticasone propionate 50 2 spray INTRANASAL DAILY 12/14/20 03/22/21 mcg/actuation nasal spray,suspension insulin aspart U-100 100 unit/mL 1 sliding scale dose SUBCUT 12/14/20 03/22/21 subcutaneous solution (Novolog USEASDIRECTD U-100 Insulin aspart) insulin degludec 100 unit/mL (3 88 unit SUBCUT DAILY 12/14/20 03/22/21 mL) subcutaneous pen (Tresiba FlexTouch U-100 insulin) ipratropium 20 mcg-albuterol 100 1 puff INHALATION QID 12/14/20 03/22/21 mcg/actuation mist for inhalation (Combivent Respimat) multivitamin 1 tab PO DAILY 12/14/20 03/22/21 Previous Rx's Medication Instructions Recorded gabapentin 100 mg capsule 100 mg PO BID 30 Days #60 cap 01/06/21 furosemide 20 mg tablet (Lasix) 20 mg PO DAILY #45 tab 02/12/21 apixaban 5 mg tablet (Eliquis) 5 mg PO BID 90 Days #180 tab 03/20/21 levofloxacin 750 mg tablet 750 mg PO DAILY 10 Days #10 tab 09/17/21 levofloxacin 750 mg tablet 750 mg PO DAILY 10 Days #10 tab 05/10/21 metronidazole 500 mg tablet 500 mg PO Q8H 10 Days #30 tab 05/10/21 metronidazole 500 mg tablet 500 mg PO Q8H 10 Days #30 tab 05/10/21 Allergies Allergy/AdvReac Type Severity Reaction Status Date / Time No Known Allergies Allergy Mild N/A Verified 02/20/21 09:43 Review of Systems Constitutional: Denies body ache(s), Denies chills, Denies fatigue, Denies fever(s), Denies headache(s), Denies malaise and Denies weakness Eyes: Denies diplopia Denies vertigo, Denies dizziness, Denies otalgia, Denies headache(s), Denies mouth pain, Denies post nasal drip, Denies sinus pain, Denies sinus pressure, Denies sore throat and Denies throat swelling Cardiovascular: Denies chest pain, Denies syncope, Denies leg edema, Denies lightheadedness, Denies Loss of Consciousness, Denies palpitations and Denies dyspnea Respiratory: Denies chest congestion, Denies cough and Denies dyspnea Gastrointestinal: Reports abdominal pain, Denies hematochezia, Denies constipation, Denies diarrhea and Denies vomiting Musculoskeletal: Reports no additional musculoskeletal complaints Denies confusion, Denies vertigo, Denies dizziness, Denies syncope, Denies headache(s) and Denies weakness Psychiatric: Denies anxiety, Denies confusion and Denies depression Endocrine: Denies fatigue and Denies palpitations Allergic/Immunologic: Denies throat swelling Physical Exam Vital Signs: Vital Signs: Last Vital Signs Temp 98.8 F 05/10/21 14:59 Pulse 78 05/10/21 14:59 Resp 17 05/10/21 14:59 BP 131/69 05/10/21 14:59 Pulse Ox 97 05/10/21 14:59 Body Mass Index 29.0 Const: General: No confusion Nutritional Appearance: well nourished Orientation/consciousness: No confusion Limitations: no limitations HENMT: Head: Yes normal to inspection, Yes normocephalic and Yes atraumatic Ears: hearing grossly normal bilaterally, external ears normal, TM's normal bilaterally and EAC's normal General nose exam: Normal external nose present Face and sinus: Yes normal facial exam and Yes sinuses nontender Mouth: Normal oral and palatal mucosa present Throat: Yes posterior oropharynx normal Eyes: Conjunctivae: conjunctivae normal Pupils: Equal, round and reactive pupils present EOM: EOMs intact bilaterally Neck: Neck: Yes full ROM, Yes no lymphadenopathy and Yes supple Resp: Effort & Inspection: normal respiratory effort and able to speak in complete sentences Auscultation: clear to auscultation bilaterally, no crackles, no rales, no rhonchi and no wheezes Cardio: Rate: regular rate Rhythm: regular rhythm Heart sounds: S1 normal heart sound present and S2 normal heart sound present GI: Inspection: Yes normal to inspection Palpation (GI): Soft to palpation, Tenderness to palpation present (GI) in the LLQ, Guarding due to palpation present (GI) in the LLQ and not rigid Percussion: Yes normal to percussion Auscultation: normal bowel sounds Skin: General skin exam: no rashes or lesions noted Neuro: General: No confusion Cranial nerves: Yes Equal, round and reactive pupils present Extrem: General: Yes normal to inspection and Yes full ROM Psych: Appearance: grossly normal Affect: normal affect Attitude: cooperative Thought process: Normal thought process present Course Course Course Narrative: Patient's labs are remarkable for low platelet count, blood glucose of 279, increased bili of 1.8 and mildly elevated liver function enzymes. Patient has glucosuria. CT shows: Moderately severe diverticular disease noted with mild acute inflammatory changes at the junction of the descending and sigmoid colon relatively pronounced bowel wall edema and fluid Discussed return precautions extensively with patient, told patient to return if fevers, worsening belly pain, nausea or vomiting. Patient verbalized agreement understanding of the plan. MDM - Abdominal Pain Lab Data Result diagrams: 05/10/21 16:06 05/10/21 16:06 Labs: Lab Results 05/10/21 05/10/21 05/10/21 Range/Units 16:06 16:06 16:08 WBC 10.7 (4.8-10.8) X10*3/uL RBC 4.06 L D (4.60-5.80) X10*6/uL Hgb 12.9 L D (14.0-18.0) g/dl Hct 38.3 L D (42-52) % MCV 94.3 (80-98) fL MCH 31.8 (27.0-33.0) pg MCHC 33.7 (31.0-36.0) g/dl RDW 15.8 (11.0-16.0) % Plt Count 77 L (160-400) X10*3/uL MPV 11.0 (9.4-12.4) fL Immature Gran % (Auto) 0.7 H (0.0-0.4) % Neut % (Auto) 80.3 H (45-73) % Lymph % (Auto) 11.5 L (20-40) % [place] % (Auto) 7.2 (2-11) % Eos % (Auto) 0.1 (0-4) % Baso % (Auto) 0.2 (0-2) % Lymph # (Auto) 1.2 (1.2-4.9) X10*3/uL [place] # (Auto) 0.8 (0.1-1.2) X10*3/uL Eos # (Auto) 0.0 (0.0-0.4) X10*3/uL Baso # (Auto) 0.0 (0.0-0.2) X10*3/uL Abs Immat Gran (auto) 0.07 H (0.00-0.03) X10*3/uL Absolute Neuts (auto) 8.6 H (2.0-8.3) X10*3/uL Absolute Nucleated RBC 0.000 (0.0-0.012) X10*3/uL Nucleated RBC % (auto) 0.0 (0.0-0.2) /100WBC Sodium 136 (135-145) mmol/L Potassium 4.3 (3.3-5.1) mmol/L Chloride 102 (96-108) mmol/L Carbon Dioxide 27 (22-29) mmol/L Anion Gap 11 L (12-20) BUN 22 H (9-16) mg/dL Creatinine 1.00 (0.5-1.4) mg/dL Estim Creat Clear Calc 57.9 Estimated GFR > 60 Random Glucose 279 H D (60-115) mg/dL Calcium 9.0 (8.4-10.2) mg/dL Total Bilirubin 1.8 H (0.0-1.0) mg/dL AST 45 H D (5-37) U/L ALT 48 H (0-40) U/L Alkaline Phosphatase 84 D (39-117) U/L Total Protein 6.3 L (6.5-8.0) g/dL Albumin 3.6 (3.5-5.0) g/dL Urine Color YELLOW Urine Appearance CLEAR Urine pH 6.0 (5.0-8.0) Ur Specific [place] 1.010 (1.005-1.025) Urine Protein NEG (NEG-TRACE) MG/DL Urine Glucose (UA) >=1000 H (NEG) MG/DL Urine Ketones NEG (NEG) MG/DL Urine Blood NEG (NEG) Urine Nitrite NEG (NEG) Ur Leukocyte Esterase NEG (NEG) Urine RBC 0-2 (0) /HPF Urine WBC 0-2 (0-4) /HPF Ur Squamous Epith Cells NONE /LPF Urine Bacteria NONE /LPF Discharge Plan Discharge Clinical Impression: Diverticulitis, Thrombocytopenia Patient Disposition: Home, Self-Care Instructions: Diverticulitis (ED), Diverticulitis Diet (ED) Additional Instructions: Please take your antibiotics for 10 days. Please read the diverticulitis diet information in your discharge paperwork and follow the recommendations. Your plate her low today, this is also something to talk to her primary care provider about. Call your primary care provider on Thursday for follow-up appointment. I would like you to be seen by the end of next week. Please return to the emergency room if you have fevers, worsening belly pain, nausea, vomiting, or any other new or concerning symptoms. Prescriptions: New levofloxacin 750 mg tablet 750 mg PO DAILY 10 Days Qty: 10 RF: 0 metronidazole 500 mg tablet 500 mg PO Q8H 10 Days Qty: 30 RF: 0 levofloxacin 750 mg tablet 750 mg PO DAILY 10 Days Qty: 10 RF: 0 metronidazole 500 mg tablet 500 mg PO Q8H 10 Days Qty: 30 RF: 0 No Action Eliquis 5 mg tablet 5 mg PO BID 90 Days Qty: 180 RF: 3 fluticasone propionate 50 mcg/actuation spray,suspension 2 spray intranasal DAILY RF: 0 cholecalciferol (vitamin D3) 125 mcg (5,000 unit) capsule 1 cap PO DAILY RF: 0 Tresiba FlexTouch U-100 100 unit/mL (3 mL) insulin pen 88 unit subcut DAILY RF: 0 Combivent Respimat 20-100 mcg/actuation mist 1 puff inhalation QID RF: 0 multivitamin Tablet 1 tab PO DAILY RF: 0 insulin aspart U-100 [Novolog U-100 Insulin aspart] 100 unit/mL Solution 1 sliding scale dose SUBCUT USEASDIRECTD RF: 0 gabapentin 100 mg Capsule 100 mg PO BID 30 Days Qty: 60 RF: 0 furosemide [Lasix] 20 mg tablet 20 mg PO DAILY Qty: 45 RF: 3 PMFSH Past Medical History Medical History (HFpEF) heart failure with preserved ejection fraction Acute kidney injury Bifascicular block CAD (coronary artery disease) Cardiac pacemaker in situ (~12/2020) CHF exacerbation Diabetes Fever of unknown origin Hepatorenal syndrome History of ST elevation myocardial infarction (STEMI) HLD (hyperlipidemia) HTN (hypertension) Leukopenia Myocardial infarct, old Pancytopenia Paroxysmal atrial fibrillation Persistent atrial fibrillation Prostate CA PVC (premature ventricular contraction) Supratherapeutic INR Symptomatic bradycardia Thrombocytopenia Tubular adenoma of colon Ventricular bigeminy Surgical History History of cardiac pacemaker (~12/2020) History of cervical spinal surgery History of colonoscopy History of left inguinal hernia repair History of lumbar discectomy History of radical prostatectomy History of total right knee replacement (TKR) Social History Social History Household Members: Spouse Housing: House Do you presently have visiting nurse or other home services: Yes (vna qd to check inr/ call md for adjustment of coumadin) Alcohol intake: never Patient Tobacco Use Status: Former Tobacco user Tobacco use type: Cigarette Years Smoked: 10 Advance Directives: No Current occupational status: retired
[2021-05-10 16:16] LABS: MANUAL DIFF FLAG NO
[2021-05-10 16:20] LABS: Basophils Percent Auto 0.2 % (0-2); Eosinophils Percent Auto 0.1 % (0-4); Hematocrit 38.3 % (42-52); Hemoglobin 12.9 g/dl (14.0-18.0); Imm Gran Abs Auto 0.07 X10*3/uL (0.00-0.03); Imm Gran Pct Auto 0.7 % (0.0-0.4); Lymphocytes Absolute Auto 1.2 X10*3/uL (1.2-4.9); Lymphocytes Percent Auto 11.5 % (20-40); Mean Corpuscular HGB Conc 33.7 g/dl (31.0-36.0); Mean Corpuscular Hemoglobin 31.8 pg (27.0-33.0); Mean Corpuscular Volume 94.3 fL (80-98); Monocytes Absolute Auto 0.8 X10*3/uL (0.1-1.2); Monocytes Percent Auto 7.2 % (2-11); Neutrophils Absolute Auto 8.6 X10*3/uL (2.0-8.3); Neutrophils Percent Auto 80.3 % (45-73); Red Blood Count 4.06 X10*6/uL (4.60-5.80); Red Cell Distribution Width 15.8 % (11.0-16.0); White Blood Count 10.7 X10*3/uL (4.8-10.8)
[2021-05-10] MEDS: 0.9 % Sodium Chloride 500 ML IV (16:20)
[2021-05-10 16:21] LABS: Platelet Count 77 X10*3/uL (160-400)
[2021-05-10 16:27] LABS: Appearance Urine CLEAR; Color Urine YELLOW; Glucose Urine UA >=1000 MG/DL (NEG); Leukocyte Esterase Urine NEG (NEG); Nitrite Urine NEG (NEG); Urine Blood NEG (NEG); Urine Ketones NEG (NEG); Urine Protein NEG (NEG-TRACE)
--- NOTE | 2021-05-10 16:40 | PC.NURSE ---
pt has old bruising around umbiicus, pt states this is from his insulin shots. abd is distended but soft and slightl tender. bowel sounds hyperactive, no bruit noted. no abd guarding or facial grimace noted. pt has declined pain medication. awaiting ct.
[2021-05-10 16:41] LABS: RBC Urine 0-2 /HPF (0); WBC Urine 0-2 /HPF (0-4)
[2021-05-10 16:46] LABS: Alanine Aminotransferase 48 U/L (0-40); Albumin Level 3.6 g/dL (3.5-5.0); Alkaline Phosphatase 84 U/L (39-117); Anion Gap 11 (12-20); Aspartate Amino Transferase 45 U/L (5-37); Bilirubin Total 1.8 mg/dL (0.0-1.0); Blood Urea Nitrogen 22 mg/dL (9-16); Carbon Dioxide 27 mmol/L (22-29); Chloride 102 mmol/L (96-108); Creatinine Clr Calc Pharmacy 57.9; Estimated Glomerular Filt Rate > 60; Glucose Random 279 mg/dL (60-115); Potassium 4.3 mmol/L (3.3-5.1); Sodium 136 mmol/L (135-145); Total Protein 6.3 g/dL (6.5-8.0)
[2021-05-10] MEDS: iohexoL 350 MG/ML 100 ML INFUS..BTL IV (17:17)
[2021-05-10 18:27] VITALS: BP 124/71; PULSE 71; RESP 16; O2SAT 99
[2021-05-10 18:30] LABS: Lactic Acid 0.8 mmol/L (0.5-2.0)
== END 2021-05-10 19:06 | disposition home or self-care (01) ==
PROVIDERS: Physician Assistant; Emergency Provider Emergency Medicine; PCP Internal Medicine
DX: K57.32 Diverticulitis of large intestine without perforation or abscess without bleeding (principal); D69.49 Other primary thrombocytopenia; R10.32 Left lower quadrant pain; Z87.891 Personal history of nicotine dependence; Z79.899 Other long term (current) drug therapy
CPT/HCPCS: 36415; 74177; 80053; 81001; 83605; 85025; 96361; 96374; 99283; 99284; Q9967

== ENCOUNTER 2021-06-13 11:04 | Outpatient (REF) | payer MEDICARE, SELFPAY ==
[2021-06-13 12:47] LABS: Anion Gap 10 (12-20); Blood Urea Nitrogen 21 mg/dL (9-16); Calcium 9.1 mg/dL (8.4-10.2); Carbon Dioxide 28 mmol/L (22-29); Chloride 107 mmol/L (96-108); Estimated Glomerular Filt Rate > 60; Glucose Random 306 mg/dL (60-115); Potassium 4.8 mmol/L (3.3-5.1); Sodium 140 mmol/L (135-145)
[2021-06-13 12:50] LABS: B Type Natriuretic Peptide 271 pg/mL (<100)
== END 2021-06-13 11:05 | disposition home or self-care (01) ==
LOC: HO.LAB 11:04
PROVIDERS: PCP Internal Medicine; Referring Provider Internal Medicine; Visit Provider Internal Medicine Cardiovascular Disease
DX: I50.30 Unspecified diastolic (congestive) heart failure (principal); I48.0 Paroxysmal atrial fibrillation; Z95.0 Presence of cardiac pacemaker
CPT/HCPCS: 36415; 80048; 83880; 99212

== ENCOUNTER → 2021-11-11 13:06 | Outpatient (REF) | payer MEDICARE, SELFPAY ==
--- NOTE | 2021-11-11 13:09 | CA_ITS ---
Transthoracic Echocardiogram Patient (Last, First, Middle): Parent, Filemon Holloway Gender: Male Date of : 1935 Age: 86 Procedure Date: 11/11/2021 Procedure Type: Transthoracic Echocardiogram Location: OP Height: 170.18 cm Weight: 83.92 kg BSA: 1.96 m2 Heart Rate: bpm BP: 130 / 72 mmHg Baseball Inspector And Repairer: ANDRES Referring MD: Titi Deluca MD Symptoms: I50.30 - Unspecified diastolic (congestive) heart failure Study Quality: Fair ECG Rhythm: Atrial Fibrillation Conclusions: - The left ventricular systolic function is mildly decreased. The calculated ejection fraction is 50% by biplane method. - The left atrium is moderately dilated. - There is mild calcification of the aortic valve. - There is mild mitral valve regurgitation. Findings Left Ventricle Normal left ventricular cavity size. There is mildly increased left ventricular wall thickness. The left ventricular systolic function is mildly decreased. The calculated ejection fraction is 50% by biplane method. E/E prime ratio is between 8 and 15 consistent with indeterminate filling pressures. Evidence suggests grade I (mild) diastolic dysfunction. There is moderate septal asymmetric hypertrophy. Right Ventricle Normal right ventricular cavity size and systolic function. Atria The left atrium is moderately dilated. The right atrium is normal in size. Aortic Valve There is a normal trileaflet aortic valve. There is mild calcification of the aortic valve. The mean gradient is 5 mmHg. There is no aortic valve regurgitation. No significant aortic stenosis. Mitral Valve The mitral valve appears normal. There is mild mitral valve regurgitation. There is no mitral valve stenosis. Pulmonic Valve The pulmonic valve was not well visualized. There is trace pulmonic valve regurgitation. Tricuspid Valve Normal tricuspid valve structure. There is trace tricuspid valve regurgitation. The pulmonary artery systolic pressure is normal. Great Vessels The asc aorta and aortic arch are normal in size. Venous The inferior vena cava is normal in size and collapses greater than 50% with inspiration. Pericardium/Pleural There is no evidence of pericardial effusion. Prior Study Comparison No significant change compared to prior study dated: 12/11/2020. Measurements 2D Linear Measurements IVSd: 1.43 0.6-0.9/0.6-1.0 cm LVIDd: 4.49 3.9-5.3/4.2-5.9 cm LVIDd Index: 2.29 2.4-3.2/2.2-3.1 cm/m2 LVIDs: 3.54 2.0-3.6 cm LVPWd: 1.25 0.7-1.1 cm LA Diam: 4.10 2.7-3.8/3.0-4.0 cm LAIDs Index: 2.09 1.5-2.3 cm/m2 LV Mass: 289.21 67-162/88-224 g LV Mass Index: 147.55 43-95/49-115 g/m2 LVOT Diam: 2.00 3.0+(-)1.3 cm 2D Systolic Function EF 4C: 49.90 >55% EF 2C: 51.60 >55% EF BiP: 50.30 >55% Mitral Valve MV Pk E: 0.53 MV PK A: 0.82 MV Decel Time: 317.00 E/A: 0.60 E'Lateral: 6.74 E'Medial: 4.13 E/E' Med: 12.70 E/E' Lat: 7.80 PHT: 93.00 MVA PHT: 2.37 Decel [place]: 1.66 Aortic Valve AoV Pk Rogelio: 1.49 AoV Mn Rogelio: 1.11 AoV VTI: 0.31 AoV Pk Grad: 9.00 Aov Mn Grad: 5.00 CHRISTIANO Cont.VTI: 1.91 LVOT LVOT Pk Rogelio: 0.92 LVOT Mn Rogelio: 0.72 LVOT VTI: 0.19 LVOT Pk Grad: 3.00 LVOT Mn Grad: 2.00 LVOT Diam: 2.00 LVOT Area: 3.14 Diastolic Function MV Pk E: 0.53 MV Pk A: 0.82 E/A: 0.60 E'Medial: 4.13 E/E' Med: 12.70 E' Laterial: 6.74 E/E' Lat: 7.80 Right Ventricle TAPSE (mm): 22.40 TVS' Rogelio: 15.80 Tricuspid Valve TR Pk Rogelio: 1.63 TR Pk Grad: 11.00 RA Press: 8.00 RVSP: 19.00 Great Vessels Aorta Sinus of Valsalva: 3.83 2.0-3.[address] Ridge: 3.34 1.7-3.4 cm Ao Asc: 3.60 2.1-3.4 cm Ao Arch: 3.10 Updated in Other Vendor System with Status of Final Jean Aguiar MD electronically signed on 11/11/2021 4:50:49 PM with status of Final
== END ==
LOC: HO.CARD 13:06
PROVIDERS: PCP Internal Medicine; Visit Provider Internal Medicine Cardiovascular Disease
DX: I50.30 Unspecified diastolic (congestive) heart failure (principal)
CPT/HCPCS: 93306

== ENCOUNTER 2021-12-03 06:57 | Day surgery (SDC) | payer MEDICARE, SELFPAY ==
[2021-11-28 10:21] VITALS: BMI 29.2
--- NOTE | 2021-12-02 11:11 | P.CONAN_ITS ---
Documented by User: Natalia Connor NP 12/02/21 11:15 HPI - Anesthesia Eval Consult details Narrative: 86yo M for Colonoscopy Pacer in situ Eliquis for afib s/p cardioversion 01/2021 with MAC Hx thrombocytopenia. Repeat CBC DOS PMFSH Active Problems Active Problems: All Active Problems (Updated 11/28/21 @ 10:18 by Diann Dawkins RN) Anaplasmosis (Acute) Suspected Lyme disease (Acute) Shingles (herpes zoster) polyneuropathy (Acute) Mediastinal lymphadenopathy (Acute) Paroxysmal atrial fibrillation (Acute) (HFpEF) heart failure with preserved ejection fraction (Acute) Cardiac pacemaker in situ (Acute ~12/2020) Past Medical History Medical History (Updated 11/28/21 @ 10:18 by Diann Dawkins RN) (HFpEF) heart failure with preserved ejection fraction Acute kidney injury Bifascicular block CAD (coronary artery disease) Cardiac pacemaker in situ (~12/2020) CHF exacerbation COVID-19 vaccine series completed Diabetes Fever of unknown origin Hepatorenal syndrome History of cardioversion History of ST elevation myocardial infarction (STEMI) HLD (hyperlipidemia) HTN (hypertension) Hx of Lyme disease Leukopenia Myocardial infarct, old Pancytopenia Paroxysmal atrial fibrillation Persistent atrial fibrillation Prostate CA PVC (premature ventricular contraction) Supratherapeutic INR Symptomatic bradycardia Thrombocytopenia Tubular adenoma of colon Ventricular bigeminy Surgical History Surgical History History of cardiac pacemaker (~12/2020) History of cervical spinal surgery History of colonoscopy History of left inguinal hernia repair History of lumbar discectomy History of radical prostatectomy History of total right knee replacement (TKR) Social History Social History Household Members: Spouse Housing: House Are you a primary resident care aide to a significant other at home: No Do you presently have visiting nurse or other home services: No Alcohol intake: never Patient Tobacco Use Status: Former Tobacco user Quit Date: age 22's Tobacco use type: Cigarette Years Smoked: 10 Use of substances other than those prescribed or required for medical reasons: No Have you been hit, kicked, punched, or otherwise hurt by someone within the past year? If so, by whom?: No Are you DNR?: No Advance Directives: No Advance Directives Information Provided: Yes Advance Directives on File: No Recently lost weight without trying: No Eating poorly because of decreased appetite: No Nutrition Risks: Surgical patient >75years Current occupational status: retired Meds Allergies Allergy/AdvReac Type Severity Reaction Status Date / Time No Known Allergies Allergy Mild N/A Verified 02/20/21 09:43 Home Medications Medication Instructions Recorded Confirmed Last Taken Type cholecalciferol (vitamin D3) 125 1 cap PO DAILY 12/14/20 11/28/21 02/20/21 08:00 History mcg (5,000 unit) capsule fluticasone propionate 50 2 spray INTRANASAL DAILY 12/14/20 11/28/21 02/20/21 08:00 History mcg/actuation nasal spray,suspension insulin aspart U-100 100 unit/mL 1 sliding scale dose SUBCUT 12/14/20 11/28/21 Unknown History subcutaneous solution (Novolog USEASDIRECTD U-100 Insulin aspart) insulin degludec 100 unit/mL (3 54 unit SUBCUT DAILY 12/14/20 11/28/21 02/20/21 08:00 History mL) subcutaneous pen (Tresiba 60 Units FlexTouch U-100 insulin) ipratropium 20 mcg-albuterol 100 1 puff INHALATION QID 12/14/20 11/28/21 02/20/21 08:00 History mcg/actuation mist for inhalation (Combivent Respimat) multivitamin 1 tab PO DAILY 12/14/20 11/28/21 Unknown History atorvastatin 40 mg tablet 40 mg PO BEDTIME 06/13/21 11/28/21 Unknown History budesonide-formoterol HFA 80 1 inh INHALATION DAILY 06/13/21 11/28/21 Unknown History mcg-4.5 mcg/actuation aerosol inhaler (Symbicort) lactobacillus combination no.4 3 3,000 mmu cells PO DAILY 06/13/21 11/28/21 Unknown History billion cell capsule (Probiotic) losartan 25 mg tablet 25 mg PO BID tab 06/13/21 11/28/21 Unknown History pregabalin 150 mg capsule 150 mg PO QID 06/13/21 11/28/21 Unknown History diphenoxylate-atropine 2.5 tab PO 12/02/21 12/02/21 Unknown History mg-0.025 mg tablet oxybutynin chloride 15 mg 1 tab PO DAILY 12/02/21 12/02/21 Unknown History tablet,extended release 24 hr Exam Exam Date and Time: December 02, 2021 1111 Height,Weight and Vital Signs: Height 5 ft 7 in Weight 84.822 kg Pertinent Lab Results Pertinent Lab Results: Laboratory Tests 06/13/21 11:59 Sodium 140 Potassium 4.8 Chloride 107 Carbon Dioxide 28 BUN 21 H Creatinine 1.11 Narrative Narrative: ECHO 10/2021 Conclusions: - The left ventricular systolic function is mildly decreased.? ? The calculated ejection fraction is 50% by biplane method. ? ? ? - The left atrium is moderately dilated. ? - There is mild calcification of the aortic valve. ? - There is mild mitral valve regurgitation.? ?? Cardiac Device Check 05/2021 Details: Dual-chamber [employer] pacemaker in place.? Programmed in DDDR at 70 beats per minute.? Atrial pacing 58% of the time.? Ventricular pacing 81% of time.? No significant atrial fibrillation burden noted.? Atrial pacing thresholds excellent and reprogrammed to enhance battery life.? Ventricular pacing thresholds adequate and maintained.? Atrial sensing adequate.? Ventricular sensing is excellent.? Pacing lead impedance is stable.? Battery life is excellent at 08:28 0.3 years Assessment and Plan Assessment Anesthesia Assessment: Chart Reviewed Documented by User: Augustine Polo MD 12/03/21 17:02 [facility] Past Medical History Medical History (Updated 11/28/21 @ 10:18 by Diann Dawkins RN) (HFpEF) heart failure with preserved ejection fraction Acute kidney injury Bifascicular block CAD (coronary artery disease) Cardiac pacemaker in situ (~12/2020) CHF exacerbation COVID-19 vaccine series completed Diabetes Fever of unknown origin Hepatorenal syndrome History of cardioversion History of ST elevation myocardial infarction (STEMI) HLD (hyperlipidemia) HTN (hypertension) Hx of Lyme disease Leukopenia Myocardial infarct, old Pancytopenia Paroxysmal atrial fibrillation Persistent atrial fibrillation Prostate CA PVC (premature ventricular contraction) Supratherapeutic INR Symptomatic bradycardia Thrombocytopenia Tubular adenoma of colon Ventricular bigeminy Family History Family history of problems with anesthesia: No Surgical History Surgical History History of cardiac pacemaker (~12/2020) History of cervical spinal surgery History of colonoscopy History of left inguinal hernia repair History of lumbar discectomy History of radical prostatectomy History of total right knee replacement (TKR) History of Problems with Anesthesia: No Social History Social History Household Members: Spouse Housing: House Are you a primary resident care aide to a significant other at home: No Do you presently have visiting nurse or other home services: No Alcohol intake: never Patient Tobacco Use Status: Former Tobacco user Quit Date: age 22's Tobacco use type: Cigarette Years Smoked: 10 Use of substances other than those prescribed or required for medical reasons: No Have you been hit, kicked, punched, or otherwise hurt by someone within the past year? If so, by whom?: No Are you DNR?: No Advance Directives: No Advance Directives Information Provided: Yes Advance Directives on File: No Recently lost weight without trying: No Eating poorly because of decreased appetite: No Nutrition Risks: Surgical patient >75years Current occupational status: retired Meds Allergies Allergy/AdvReac Type Severity Reaction Status Date / Time No Known Allergies Allergy Mild N/A Verified 02/20/21 09:43 Home Medications Medication Instructions Recorded Confirmed Last Taken Type cholecalciferol (vitamin D3) 125 1 cap PO DAILY 12/14/20 11/28/21 02/20/21 08:00 History mcg (5,000 unit) capsule fluticasone propionate 50 2 spray INTRANASAL DAILY 12/14/20 11/28/21 02/20/21 08:00 History mcg/actuation nasal spray,suspension insulin aspart U-100 100 unit/mL 1 sliding scale dose SUBCUT 12/14/20 11/28/21 Unknown History subcutaneous solution (Novolog USEASDIRECTD U-100 Insulin aspart) insulin degludec 100 unit/mL (3 54 unit SUBCUT DAILY 12/14/20 11/28/21 02/20/21 08:00 History mL) subcutaneous pen (Tresiba 60 Units FlexTouch U-100 insulin) ipratropium 20 mcg-albuterol 100 1 puff INHALATION QID 12/14/20 11/28/21 02/20/21 08:00 History mcg/actuation mist for inhalation (Combivent Respimat) multivitamin 1 tab PO DAILY 12/14/20 11/28/21 Unknown History atorvastatin 40 mg tablet 40 mg PO BEDTIME 06/13/21 11/28/21 Unknown History budesonide-formoterol HFA 80 1 inh INHALATION DAILY 06/13/21 11/28/21 Unknown History mcg-4.5 mcg/actuation aerosol inhaler (Symbicort) lactobacillus combination no.4 3 3,000 mmu cells PO DAILY 06/13/21 11/28/21 Unknown History billion cell capsule (Probiotic) losartan 25 mg tablet 25 mg PO BID tab 06/13/21 11/28/21 Unknown History pregabalin 150 mg capsule 150 mg PO QID 06/13/21 11/28/21 Unknown History diphenoxylate-atropine 2.5 tab PO 12/02/21 12/02/21 Unknown History mg-0.025 mg tablet oxybutynin chloride 15 mg 1 tab PO DAILY 12/02/21 12/02/21 Unknown History tablet,extended release 24 hr Exam Airway Mallampati Class: III TM Dist: >3cm Neck ROM: Full Loose/Missing/Broken Teeth: Yes Heart: S1, S2 Lungs: b/l breath sounds Assessment and Plan Assessment Anesthesia Assessment: Anesthesia Plan Discussed Final Anesthetic Review Family History of Problems with Anesthesia: No History of Problems with Anesthesia: No NPO: Yes ASA Class: III Final Preanesthetic Review: Meds/Allgs Chart Reviewed, Consent Obtained/Reviewed and Anes Risks/Benef Reviewed Patient Risk: High Procedure Risk: Intermediate Anesthetic Plan Anesthetic Plan: MAC: Disposition: Standard PACU
[2021-12-03 07:17] VITALS: BP 138/62; PULSE 91; RESP 16; TEMP 36.2; O2SAT 99
[2021-12-03] MEDS: Dextrose 5 % 100 ML IV (07:30)
[2021-12-03 07:38] LABS: Glucose, Whole Blood 85 mg/dL (60-115)
[2021-12-03] MEDS: Lactated Ringers 1,000 ML 50 ML IVCONT (07:38)
[2021-12-03 07:48] LABS: Hematocrit 38.9 % (42.0-52.0); Hemoglobin 12.8 g/dl (14.0-18.0); Mean Corpuscular HGB Conc 32.9 g/dl (31.0-36.0); Mean Corpuscular Hemoglobin 32.5 pg (27.0-33.0); Mean Corpuscular Volume 98.7 fL (80.0-98.0); Mean Platelet Volume 9.7 fL (9.4-12.4); Platelet Count 111 X10*3/uL (160-400); Red Blood Count 3.94 X10*6/uL (4.60-5.80); Red Cell Distribution Width 13.2 % (11.0-16.0); White Blood Count 4.3 X10*3/uL (4.8-10.8)
[2021-12-03 07:53] LABS: INTERNATIONAL NORM RATIO 1.2 (0.9-1.1); Prothrombin Time 13.5 SEC (9.9-13.0)
[2021-12-03 08:13] LABS: Glucose, Whole Blood 109 mg/dL (60-115)
--- NOTE | 2021-12-03 08:13 | PC.NURSE ---
pt called at 0615 to report he was lightheaded, dizzy and unable to stand. he checked POC at home and stated it was 50. pt instructed to drink a sip of water with sugar. upon arrival at 0700 pt POC checked 85. LR IV started, Dr. Polo notified and D5 100ml KVO ordered and infused. rechecked POC 108. pt states he is feeling better, c/o dry mouth but no longer feeling weak. colonoscopy delayed due to sugar water, pt procedure to start 0830.
[2021-12-03 09:04] VITALS: BP 104/59; PULSE 70; RESP 16; TEMP 36.1; O2SAT 99
--- NOTE | 2021-12-03 09:04 | PM.OP ---
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 Ascending colon) Condition: stable Disposition: PACU
[2021-12-03 09:11] VITALS: BP 106/55; PULSE 75; RESP 17; O2SAT 99
[2021-12-03 09:19] VITALS: BP 117/55; PULSE 78; RESP 17; TEMP 36.1; O2SAT 100
--- NOTE | 2021-12-04 04:37 | OP_ITS ---
SURGEON: Joshua Adkins MD INDICATIONS: The patient presents for evaluation of change in bowel habits with associated loose bowel movements and occasional hematochezia. Full consent was obtained from him for this, including risks of bleeding and perforation. PREOPERATIVE DIAGNOSIS: Change in bowel habits with loose bowel movements and hematochezia. POSTOPERATIVE DIAGNOSIS: Change in bowel habits with loose bowel movements and hematochezia, rule out microscopic colitis, diverticulosis, small colon polyps not removed, internal hemorrhoids, and some mild rectal telangiectasias in distal rectum. PROCEDURE PERFORMED: Colonoscopy to the cecum with biopsies. ESTIMATED BLOOD LOSS: COMPLICATIONS: ANESTHESIA: Medication Used: Monitored anesthesia care. ASSISTANTS: SPECIMENS: DESCRIPTION OF PROCEDURE: The patient was placed in the left lateral decubitus position. The digital rectal exam revealed no abnormalities. The Olympus video pediatric colonoscope was entered into the rectum and advanced easily to the cecum. Once in the cecum, I did identify cecal pouch with appendiceal orifice and a normal-appearing ileocecal valve. The cecal pouch had a fair amount of liquid and solid stool in it, which was copiously irrigated and suctioned away with ultimately good visualization of the cecum. I did not visualize any sign of mass or ulceration. The scope was slowly withdrawn assessing all mucosal surfaces carefully. For the most part, preparation was good throughout the colon, although there were some small areas of liquid and solid stool, which obscured visualization somewhat. There was no sign of any colitis nor angiodysplasia. I did obtain 2 biopsies from the ascending colon with the cold biopsy forceps to inspect for microscopic colitis given his symptomatology. One of the biopsy sites developed a clear submucosal hematoma with persistent oozing. After the oozing persisted, I did place a single Resolution clip on the biopsy site with good hemostasis and good deployment. The area was further observed and irrigated without any further signs of active bleeding. The scope was then further withdrawn throughout the remainder of the colon. There were several less than 10 mm polyps visualized in various parts of the colon. However, given his age, gross appearance of the small and benign-appearing polyps, the evidence of bleeding from just the cold biopsy, and the fact that he had stopped his Eliquis just 2 days ago and will have to go back on that, and has some chronic thrombocytopenia with a platelet count of 111,000 this morning, I opted not to remove any of the polyps as I did not think would be worth the risk of having a post polypectomy bleed. I did not visualize any sign of colitis and no other biopsies were obtained. There was a mild amount of sigmoid diverticulosis. The rectum was notable for some mild amount of telangiectasias in the distal rectum in relation to the previous radiation. However, this was not particularly impressive and there was no sign of any active inflammation. The scope was retroflexed visualizing internal hemorrhoids, but no other pathology. The scope was straightened and withdrawn from the patient. He tolerated the procedure well and was returned to recovery area in stable condition. IMPRESSION: 1. Rule out microscopic colitis. 2. Small colon polyps, not removed. 3. Diverticulosis. 4. Rectal telangiectasias. 5. Internal hemorrhoids. PLAN: The results of the pathology will be checked. In discussing things with the patient, he does appear to be achieving good relief of his previous symptoms on the use of Lomotil. I did advise him to continue this. He was advised to resume his Xarelto in 48 hours. I do not think he is on aspirin, but if he is on daily aspirin in relation to underlying cardiac disease, I did advise him that he could resume that in 48 hours as well. He was advised to avoid NSAIDs long-term. I will plan to see him in 2 to 3 months for a followup visit, but did advise him to contact me prior to that if he has any problems or questions I can be of assistance with. I do not think the rectal telangiectasias are playing a role in his symptoms as I do not think he has a component of radiation proctitis at this time. This has all been discussed with his . MD JAMAR Zelaya/YENY / [id number]
== END 2021-12-03 10:34 | disposition home or self-care (01) ==
PROVIDERS: Nurse Practitioner; PCP Internal Medicine; Visit Provider Internal Medicine
PROC: 0DJD8ZZ Inspection of Lower Intestinal Tract, Via Natural or Artificial Opening Endoscopic (ICD-10-PCS; CPT 45378; principal; 2021-12-03 07:30)
DX: R19.4 Change in bowel habit (principal); R19.5 Other fecal abnormalities; Z86.010 Personal history of colon polyps; K63.5 Polyp of colon; Z85.46 Personal history of malignant neoplasm of prostate; K62.7 Radiation proctitis; K57.30 Diverticulosis of large intestine without perforation or abscess without bleeding; K64.8 Other hemorrhoids; D69.6 Thrombocytopenia, unspecified; E78.5 Hyperlipidemia, unspecified; I10 Essential (primary) hypertension; J44.9 Chronic obstructive pulmonary disease, unspecified; I48.91 Unspecified atrial fibrillation; E11.9 Type 2 diabetes mellitus without complications; Z79.4 Long term (current) use of insulin; Z79.01 Long term (current) use of anticoagulants; Z79.899 Other long term (current) drug therapy; Z87.891 Personal history of nicotine dependence
CPT/HCPCS: 45380; 36415; 82947; 85027; 85610; 88305; J3010

== ENCOUNTER 2021-12-19 11:15 | Outpatient (REF) | payer MEDICARE, SELFPAY ==
[2021-12-19 13:28] LABS: Anion Gap 11 (12-20); Blood Urea Nitrogen 31 mg/dL (9-16); Calcium 9.7 mg/dL (8.4-10.2); Carbon Dioxide 28 mmol/L (22-29); Chloride 103 mmol/L (96-108); Estimated Glomerular Filt Rate 50; Glucose Random 294 mg/dL (60-115); Potassium 5.3 mmol/L (3.3-5.1); Sodium 137 mmol/L (135-145)
== END 2021-12-19 11:16 | disposition home or self-care (01) ==
LOC: HO.LAB 11:15
PROVIDERS: PCP Internal Medicine; Referring Provider Internal Medicine; Visit Provider Internal Medicine Cardiovascular Disease
DX: I48.0 Paroxysmal atrial fibrillation (principal); I50.30 Unspecified diastolic (congestive) heart failure; Z79.899 Other long term (current) drug therapy; Z45.018 Encounter for adjustment and management of other part of cardiac pacemaker
CPT/HCPCS: 36415; 80048; 93280; 99212

== ENCOUNTER 2022-04-09 14:01 | Outpatient (REF) | payer MEDICARE, SELFPAY ==
--- NOTE | ~2022-04-09 | XR_ITS ---
EXAMINATION: XR SHOULDER, RIGHT CLINICAL INFORMATION: Shoulder pain, limited range of motion COMPARISON: Radiographs right shoulder 12/10/2018. TECHNIQUE: Right shoulder is imaged in 3 views. FINDINGS: There is elevation of the humeral head with faceting of the acromion consistent with chronic rotator cuff degeneration and probable tear. Osteoarthritic changes involve the glenohumeral joint. There are no definite visible rotator cuff calcifications. The acromioclavicular alignment is normal. No fracture, dislocation, or destructive process. 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 -Osteoarthritis glenohumeral joint. Acromioclavicular alignment normal.
== END 2022-04-09 14:02 | disposition home or self-care (01) ==
LOC: HO.HMGCX 14:01
PROVIDERS: PCP Internal Medicine; Visit Provider Internal Medicine
DX: M25.511 Pain in right shoulder (principal)
CPT/HCPCS: 73030

== ENCOUNTER 2022-05-07 08:59 | Outpatient (REF) | payer MEDICARE, SELFPAY ==
--- NOTE | ~2022-05-07 | CT_ITS ---
EXAMINATION: CT CHEST WITH CONTRAST CLINICAL INFORMATION: IDDM, CKD. COMPARISON: None. TECHNIQUE: Multidetector volumetric CT imaging of the chest was obtained after the administration of 50 mL of Omnipaque 350 intravenous contrast without immediate adverse reactions. Axial MIP volume rendering provided. Sagittal and coronal reformatted images were obtained. This CT examination was performed using dose optimization techniques as appropriate, variously including the following: *Automated exposure control *Adjustment of mA and/or kV according to patient size (this includes techniques or standardized protocols for targeted exams where dose is matched to indication/reason for exam; i.e. extremities or head) *Use of iterative reconstruction technique DLP: 246 mGy-cm. FINDINGS: CHEF'S ASSISTANT: Unremarkable chest exam. LUNGS: The lungs are well expanded and clear of acute pneumonic consolidation. There are no pulmonary nodules, mass or ground-glass attenuation. There are 1 mm punctate calcifications seen in left lung base image 148, right middle lobe image 126/9. MEDIASTINUM: The thyroid lobes are symmetrical and normal. The central trachea and the bronchi are widely patent. The heart size and the great vessels are normal caliber. There is no pericardial effusion. Small shotty lymph nodes in the mediastinum none of which are significant. They are stable. Left subclavian inserted dual-chamber pacemaker is stable. CORONARY ARTERY CALCIFICATION: Moderate coronary artery calcifications. PLEURA: There is no pleural effusion. No pleural mass or thickening. AXILLA: No lymphadenopathy. UPPER ABDOMEN: Visualized liver, spleen, pancreas and bilateral adrenal glands unremarkable. There are no radiopaque gallstones. OSSEOUS STRUCTURES: No aggressive lytic or sclerotic process seen. Mild ventral spondylosis seen throughout dorsal spine. CT/CT chest w IV con IMPRESSION: Multiple calcified granulomas are stable. Small shotty lymph nodes in the mediastinum are stable. No change in dual chamber pacer electrode. Fleischner guidelines were followed.
[2022-05-07 09:48] LABS: Blood Urea Nitrogen 21 mg/dL (9-16); Estimated Glomerular Filt Rate > 60
[2022-05-07] MEDS: iohexoL 350 MG/ML 100 ML INFUS..BTL IV (10:15)
== END 2022-05-07 09:00 | disposition home or self-care (01) ==
LOC: HO.CT 08:59
PROVIDERS: PCP Internal Medicine; Visit Provider Internal Medicine
DX: Z01.812 Encounter for preprocedural laboratory examination (principal); N18.9 Chronic kidney disease, unspecified; E11.9 Type 2 diabetes mellitus without complications; Z79.4 Long term (current) use of insulin
CPT/HCPCS: 36415; 71260; 82565; 84520; Q9967

== ENCOUNTER 2022-05-13 15:00 | Emergency (ER) | payer MEDICARE, SELFPAY ==
[2022-05-13 17:26] VITALS: BP 141/71; PULSE 65; RESP 20; TEMP 36.2; O2SAT 99; BMI 28.1
--- NOTE | 2022-05-13 18:00 | ED_ITS ---
HPI - Male Genitourinary General Chief complaint: Urogenital-Male Stated complaint: sent from doctors. bleeding from groin Time Seen by Provider: 05/13/22 17:39 Source: patient Mode of arrival: ambulatory Limitations: no limitations History of Present Illness HPI Narrative: 86-year-old male who presents emergency department for evaluation of hematuria in urinary frequency. The patient states that he urinates frequently, every 2 hours. He states that because of this frequency has to wear depends. The patient was getting ready to go out with his and he sat on the toilet to changes depends. States that he noted that his depends were soaked with red urine. He states that he then urinated bright red blood. He went to see his PCP, Dr. Rebolledo. His PCP did blood work on him the patient states that the h ematuria resolved. He states that when he got home however he began to urinate blood again. He denied fever, chills, dysuria. He has had no changes urinary frequency. He denied nausea, vomiting, diarrhea or abdominal pain. Patient does have a history of paroxysmal atrial fibrillation and does take Eliquis. Related Data Home Medications Medication Instructions Recorded Confirmed cholecalciferol (vitamin D3) 125 1 cap PO DAILY 12/14/20 12/19/21 mcg (5,000 unit) capsule fluticasone propionate 50 2 spray intranasal DAILY 12/14/20 12/19/21 mcg/actuation nasal spray,suspension insulin aspart U-100 100 unit/mL 1 sliding scale dose subcut 12/14/20 12/19/21 subcutaneous solution (Novolog USEASDIRECTD U-100 Insulin aspart) insulin degludec 100 unit/mL (3 54 unit subcut DAILY 12/14/20 12/19/21 mL) subcutaneous pen (Tresiba FlexTouch U-100 insulin) ipratropium 20 mcg-albuterol 100 1 puff inhalation QID 12/14/20 12/19/21 mcg/actuation mist for inhalation (Combivent Respimat) multivitamin 1 tab PO DAILY 12/14/20 12/19/21 atorvastatin 40 mg tablet 40 mg PO BEDTIME 06/13/21 12/19/21 budesonide-formoterol HFA 80 1 inh inhalation DAILY 06/13/21 12/19/21 mcg-4.5 mcg/actuation aerosol inhaler (Symbicort) lactobacillus combination no.4 3 3,000 mmu cells PO DAILY 06/13/21 12/19/21 billion cell capsule (Probiotic) losartan 25 mg tablet 25 mg PO BID 06/13/21 12/19/21 pregabalin 150 mg capsule 150 mg PO QID 06/13/21 12/19/21 diphenoxylate-atropine 2.5 tab PO 12/02/21 12/19/21 mg-0.025 mg tablet ascorbic acid (vitamin C) 500 mg mg PO 12/19/21 12/19/21 capsule cholecalciferol (vitamin D3) 25 25 mcg PO DAILY 12/19/21 12/19/21 mcg (1,000 unit) capsule magnesium 200 mg tablet 200 mg PO DAILY 12/19/21 12/19/21 oxybutynin chloride 15 mg 15 mg PO DAILY 12/19/21 12/19/21 tablet,extended release 24 hr vitamin B complex (B 1 tab PO DAILY 12/19/21 12/19/21 Complex-Vitamin B12 tablet) Previous Rx's Medication Instructions Recorded gabapentin 100 mg capsule 100 mg PO BID 30 days #60 caps 01/06/21 apixaban 5 mg tablet (Eliquis) 5 mg PO BID 90 days #180 tabs 03/20/21 furosemide 20 mg tablet (Lasix) 10 mg PO DAILY PRN edema #90 tabs 08/05/21 cephalexin 500 mg capsule 500 mg PO TID 7 days #21 caps 05/13/22 Allergies Allergy/AdvReac Type Severity Reaction Status Date / Time No Known Allergies Allergy Mild N/A Verified 02/20/21 09:43 Review of Systems Review of Systems: Yes all other systems are reviewed and are negative [facility] Past Medical History [facility] Narrative: Social history: The patient lives with his . He states that he does not smoke cigarettes but was a former smoker. The patient drinks alcohol 3 to 4 times a week, he states he drinks 1-2 glasses of wine when he drinks. Medical History (HFpEF) heart failure with preserved ejection fraction Acute kidney injury Bifascicular block CAD (coronary artery disease) Cardiac pacemaker in situ (~12/2020) CHF exacerbation COVID-19 vaccine series completed Diabetes Fever of unknown origin Hepatorenal syndrome History of cardioversion History of ST elevation myocardial infarction (STEMI) HLD (hyperlipidemia) HTN (hypertension) Hx of Lyme disease Leukopenia Myocardial infarct, old Pancytopenia Paroxysmal atrial fibrillation Persistent atrial fibrillation Prostate CA PVC (premature ventricular contraction) Supratherapeutic INR Symptomatic bradycardia Thrombocytopenia Tubular adenoma of colon Ventricular bigeminy Surgical History History of cardiac pacemaker (~12/2020) History of cervical spinal surgery History of colonoscopy History of left inguinal hernia repair History of lumbar discectomy History of radical prostatectomy History of total right knee replacement (TKR) Social History Social History Household Members: Spouse Housing: House Are you a primary manager medicare to a significant other at home: No Do you presently have visiting nurse or other home services: No Alcohol intake: never Patient Tobacco Use Status: Former Tobacco user Quit Date: age 22's Tobacco use type: Cigarette Years Smoked: 10 Advance Directives: No Advance Directives Information Provided: No Current occupational status: retired Physical Exam Vital Signs: Vital Signs: Last Vital Signs Temp 97.1 F 05/13/22 17:26 Pulse 65 05/13/22 17:26 Resp 20 05/13/22 17:26 BP 141/71 H 05/13/22 17:26 Pulse Ox 99 05/13/22 17:26 O2 Del Method 05/13/22 17:26 BMI result Body Mass Index 28.1 Const: General: cooperative and no acute distress Orientation/consciousness: oriented to person and oriented to place Limitations: no limitations HEENT: Head: Yes normal to inspection, Yes normocephalic and Yes atraumatic Ears: external ears normal General nose exam: Normal external nose present Face and sinus: Yes normal facial exam Mouth: Normal oral and palatal mucosa present Throat: Yes posterior oropharynx normal Eyes: General: appearance normal, both eyes and all related structures Pupils: Equal, round and reactive pupils present Neck: Neck: Yes normal visual inspection, Yes no lymphadenopathy, Yes trachea midline and Yes supple Chest: Chest palpation & inspection: normal inspection of the chest and normal palpation of entire chest wall Resp: Effort & Inspection: normal respiratory effort and able to speak in complete sentences Auscultation: clear to auscultation bilaterally Cardio: Rate: regular rate Rhythm: regular rhythm Heart sounds: S1 normal heart sound present, S2 normal heart sound present and no murmurs GI: Inspection: Yes normal to inspection Palpation (GI): Soft to palpation, Tenderness to palpation present (GI) suprapubicly ([id number]) and no guarding Auscultation: normal bowel sounds : General: Yes no CVA tenderness Back/Spine/Pelvis: Back: no CVA tenderness Skin: Other: Patient has multiple areas of ecchymosis on his arms and legs Neuro: General: oriented to person and oriented to place Cranial nerves: Yes CN's II-XII intact bilaterally and Yes Equal, round and reactive pupils present Cognition (Neuro): normal cognition Motor exam (neuro): 5/5 motor strength present throughout Extrem: General: Yes normal to inspection Psych: Appearance: grossly normal Speech and movement: Normal speech and movement present Affect: normal affect Attitude: cooperative Thought process: Normal thought process present Thought content: Normal thought content present Course Course Course Narrative: 86-year-old male who presents emergency department for evaluation of hematuria w hich started earlier today, resolved and then started again. Patient states that he urinates every 2 hours and his urinary frequency is unchanged. He states that he feels like he can not urinate at this time. Patient is on Eliquis for paroxysmal atrial fibrillation. Vital signs were unremarkable. Physical examination revealed mild to moderate suprapubic tenderness. Patient's skin exam does reveal multiple areas of ecchymosis most likely secondary to Eliquis treatment. I ordered a CBC, CMP, lipase, PT/INR, PTT and urinalysis. The patient will also get a bladder scan to rule out urinary retention. 2111: Laboratory evaluation was unremarkable except for the patient's urinalysis and microscopic examination. The patient had moderate 2+ blood, large leukocyte esterase 3+, microscopic revealed greater than 20 RBCs, 21-50 wbc's, 0-2 squamous cells and 1+ bacteria. This was obtained from a Mena catheter specimen. The patient's bladder scan revealed 100 cc of urine, the patient was unable to urinate therefore a Mena catheter was placed. Given the microscopic findings above, I will start the patient on cephalexin 500 mg 3 times a day for 7 days for urinary tract infection. Patient feels significantly better after Mena catheter was placed and I believe that he was having difficulty emptying his bladder therefore he will be discharged with the Mena catheter in place. Patient was advised to contact his urologist tomorrow for follow-up in 2-3 days to have the Mena catheter removed. MDM - Male Genitourinary Lab Data Result diagrams: 05/13/22 18:20 05/13/22 18:20 Labs: Lab Results 05/13/22 05/13/22 05/13/22 Range/Units 18:20 18:20 18:20 WBC 10.4 (4.8-10.8) X10*3/uL RBC 4.07 L (4.60-5.80) X10*6/uL Hgb 13.3 L (14.0-18.0) g/dl Hct 39.2 L (42.0-52.0) % MCV 96.3 (80.0-98.0) fL MCH 32.7 (27.0-33.0) pg MCHC 33.9 (31.0-36.0) g/dl RDW 13.8 (11.0-16.0) % Plt Count 109 L (160-400) X10*3/uL MPV 10.6 (9.4-12.4) fL Immature Gran % (Auto) 2.9 H (0.0-0.4) % Neut % (Auto) 77.8 H (45-73) % Lymph % (Auto) 12.3 L (20-40) % [place] % (Auto) 6.3 (2-11) % Eos % (Auto) 0.4 (0-4) % Baso % (Auto) 0.3 (0-2) % Lymph # (Auto) 1.3 (1.2-4.9) X10*3/uL [place] # (Auto) 0.7 (0.1-1.2) X10*3/uL Eos # (Auto) 0.0 (0.0-0.4) X10*3/uL Baso # (Auto) 0.0 (0.0-0.2) X10*3/uL Abs Immat Gran (auto) 0.30 H (0.00-0.03) X10*3/uL Absolute Neuts (auto) 8.1 (2.0-8.3) x10*3/uL Absolute Nucleated RBC 0.000 (0.0-0.012) X10*3/uL Nucleated RBC % (auto) 0.0 (0.0-0.2) /100WBC PT 15.4 H (10.0-13.1) SEC INR 1.3 H (0.9-1.1) APTT 28.9 (26.0-36.4) SEC Sodium 137 (135-145) mmol/L Potassium 4.1 D (3.3-5.1) mmol/L Chloride 104 (96-108) mmol/L Carbon Dioxide 23 (22-29) mmol/L Anion Gap 14 (12-20) BUN 29 H (9-16) mg/dL Creatinine 1.00 (0.5-1.4) mg/dL Estim Creat Clear Calc 56.2 Estimated GFR > 60 Random Glucose 237 H (60-115) mg/dL Calcium 8.9 D (8.4-10.2) mg/dL Total Bilirubin 1.0 (0.0-1.0) mg/dL AST 27 (5-37) U/L ALT 48 H (0-40) U/L Alkaline Phosphatase 97 (39-117) U/L Total Protein 6.0 L (6.5-8.0) g/dL Albumin 3.8 (3.5-5.0) g/dL Lipase 21 (8-78) U/L Urine Color Urine Appearance Urine pH (5.0-9.0) Ur Specific [place] (1.005-1.025) Urine Protein (Neg-Trace) mg/dL Urine Glucose (UA) (Negative) mg/dL Urine Ketones (Negative) mg/dL Urine Blood (Negative) Urine Nitrite (Negative) Ur Leukocyte Esterase (Negative) Urine RBC (0-2) /HPF Urine WBC (0-5) /HPF Ur Squamous Epith Cells (0-2) /HPF Urine Bacteria (None Seen) Hyaline Casts (0-2) /LPF 05/13/22 Range/Units 20:37 WBC (4.8-10.8) X10*3/uL RBC (4.60-5.80) X10*6/uL Hgb (14.0-18.0) g/dl Hct (42.0-52.0) % MCV (80.0-98.0) fL MCH (27.0-33.0) pg MCHC (31.0-36.0) g/dl RDW (11.0-16.0) % Plt Count (160-400) X10*3/uL MPV (9.4-12.4) fL Immature Gran % (Auto) (0.0-0.4) % Neut % (Auto) (45-73) % Lymph % (Auto) (20-40) % [place] % (Auto) (2-11) % Eos % (Auto) (0-4) % Baso % (Auto) (0-2) % Lymph # (Auto) (1.2-4.9) X10*3/uL [place] # (Auto) (0.1-1.2) X10*3/uL Eos # (Auto) (0.0-0.4) X10*3/uL Baso # (Auto) (0.0-0.2) X10*3/uL Abs Immat Gran (auto) (0.00-0.03) X10*3/uL Absolute Neuts (auto) (2.0-8.3) x10*3/uL Absolute Nucleated RBC (0.0-0.012) X10*3/uL Nucleated RBC % (auto) (0.0-0.2) /100WBC PT (10.0-13.1) SEC INR (0.9-1.1) APTT (26.0-36.4) SEC Sodium (135-145) mmol/L Potassium (3.3-5.1) mmol/L Chloride (96-108) mmol/L Carbon Dioxide (22-29) mmol/L Anion Gap (12-20) BUN (9-16) mg/dL Creatinine (0.5-1.4) mg/dL Estim Creat Clear Calc Estimated GFR Random Glucose (60-115) mg/dL Calcium (8.4-10.2) mg/dL Total Bilirubin (0.0-1.0) mg/dL AST (5-37) U/L ALT (0-40) U/L Alkaline Phosphatase (39-117) U/L Total Protein (6.5-8.0) g/dL Albumin (3.5-5.0) g/dL Lipase (8-78) U/L Urine Color Yellow Urine Appearance Clear Urine pH 5.5 (5.0-9.0) Ur Specific [place] <= 1.005 (1.005-1.025) Urine Protein Negative (Neg-Trace) mg/dL Urine Glucose (UA) 100 H (Negative) mg/dL Urine Ketones Negative (Negative) mg/dL Urine Blood Moderate (2+) H (Negative) Urine Nitrite Negative (Negative) Ur Leukocyte Esterase Large (3+) H (Negative) Urine RBC >20 H (0-2) /HPF Urine WBC 21-50 H (0-5) /HPF Ur Squamous Epith Cells 0-2 (0-2) /HPF Urine Bacteria 1+ (None Seen) Hyaline Casts 0-2 (0-2) /LPF Discharge Plan Discharge Clinical Impression: Urinary tract infection Qualifiers: Urinary tract infection type: acute cystitis Hematuria presence: with hematuria Qualified Code(s): N30.01 - Acute cystitis with hematuria Patient Disposition: Home, Self-Care Instructions: Urinary Tract Infection in Men (ED), Mena Catheter Placement and Care (ED) Additional Instructions: Your blood work was unremarkable and unchanged from your baseline blood work. Your urinalysis and microscopic evaluation of the urine is consistent with a urinary tract infection. I am treating you with the following antibiotic: Take Keflex (cephalexin) 500 mg pills, 1 pill 3 times a day for 7 days. You only had a small amount of urine in your bladder based on the bladder scan however you were unable to urinate therefore we placed a Mena catheter. I am seeing you home with his Mena catheter in place, put the leg bag on during the day and the larger bag on at night. Call your urology tomorrow for follow-up appointment in 2-3 days to have the Mena catheter removed. Follow-up with your urology in 2-3 days. Please return to the emergency department if your symptoms get worse or if you develop any symptoms that are concerning to you. Prescriptions: New cephalexin 500 mg capsule 500 mg PO TID 7 Days Qty: 21 0RF No Action Eliquis 5 mg tablet 5 mg PO BID 90 Days Qty: 180 3RF furosemide [Lasix] 20 mg tablet 10 mg PO DAILY PRN (Reason: edema) Qty: 90 0RF fluticasone propionate 50 mcg/actuation spray,suspension 2 spray intranasal DAILY cholecalciferol (vitamin D3) 125 mcg (5,000 unit) capsule 1 cap PO DAILY Tresiba FlexTouch U-100 100 unit/mL (3 mL) insulin pen 54 unit subcut DAILY Combivent Respimat 20-100 mcg/actuation mist 1 puff inhalation QID multivitamin Tablet 1 tab PO DAILY insulin aspart U-100 [Novolog U-100 Insulin aspart] 100 unit/mL Solution 1 sliding scale dose SUBCUT USEASDIRECTD gabapentin 100 mg Capsule 100 mg PO BID 30 Days Qty: 60 0RF diphenoxylate-atropine 2.5-0.025 mg tablet PO oxybutynin chloride 15 mg tablet extended release 24 hr 15 mg PO DAILY atorvastatin 40 mg tablet 40 mg PO BEDTIME budesonide-formoterol [Symbicort] 80-4.5 mcg/actuation HFA aerosol inhaler 1 inh inhalation DAILY Probiotic 3 billion cell capsule 3,000 mmu cells PO DAILY Rx Instructions: administer with a meal pregabalin 150 mg capsule 150 mg PO QID losartan 25 mg tablet 25 mg PO BID magnesium 200 mg tablet 200 mg PO DAILY vitamin B complex [B Complex-Vitamin B12] Tablet 1 tab PO DAILY cholecalciferol (vitamin D3) 25 mcg (1,000 unit) capsule 25 mcg PO DAILY ascorbic acid (vitamin C) 500 mg capsule PO
[2022-05-13 18:27] LABS: MANUAL DIFF FLAG NO
[2022-05-13 18:34] LABS: INTERNATIONAL NORM RATIO 1.3 (0.9-1.1); Prothrombin Time 15.4 SEC (10.0-13.1)
[2022-05-13 18:36] LABS: Partial Thromboplastin Time 28.9 SEC (26.0-36.4)
[2022-05-13 18:38] LABS: Basophils Percent Auto 0.3 % (0-2); Eosinophils Percent Auto 0.4 % (0-4); Hematocrit 39.2 % (42.0-52.0); Hemoglobin 13.3 g/dl (14.0-18.0); Imm Gran Pct Auto 2.9 % (0.0-0.4); Lymphocytes Absolute Auto 1.3 X10*3/uL (1.2-4.9); Lymphocytes Percent Auto 12.3 % (20-40); Mean Corpuscular HGB Conc 33.9 g/dl (31.0-36.0); Mean Corpuscular Hemoglobin 32.7 pg (27.0-33.0); Mean Corpuscular Volume 96.3 fL (80.0-98.0); Mean Platelet Volume 10.6 fL (9.4-12.4); Monocytes Absolute Auto 0.7 X10*3/uL (0.1-1.2); Monocytes Percent Auto 6.3 % (2-11); Neutrophils Absolute Auto 8.1 x10*3/uL (2.0-8.3); Neutrophils Percent Auto 77.8 % (45-73); Platelet Count 109 X10*3/uL (160-400); Red Blood Count 4.07 X10*6/uL (4.60-5.80); Red Cell Distribution Width 13.8 % (11.0-16.0); White Blood Count 10.4 X10*3/uL (4.8-10.8)
[2022-05-13 18:51] LABS: Alanine Aminotransferase 48 U/L (0-40); Albumin Level 3.8 g/dL (3.5-5.0); Alkaline Phosphatase 97 U/L (39-117); Anion Gap 14 (12-20); Aspartate Amino Transferase 27 U/L (5-37); Blood Urea Nitrogen 29 mg/dL (9-16); Calcium 8.9 mg/dL (8.4-10.2); Carbon Dioxide 23 mmol/L (22-29); Chloride 104 mmol/L (96-108); Creatinine Clr Calc Pharmacy 56.2; Estimated Glomerular Filt Rate > 60; Glucose Random 237 mg/dL (60-115); Lipase 21 U/L (8-78); Potassium 4.1 mmol/L (3.3-5.1); Sodium 137 mmol/L (135-145)
[2022-05-13 20:42] LABS: Appearance Urine Clear; Color Urine Yellow; Glucose Urine UA 100 mg/dL (Negative); Leukocyte Esterase Urine Large (3+) (Negative); Nitrite Urine Negative (Negative); PH 5.5 (5.0-9.0); Specific Gravity - Urine <= 1.005 (1.005-1.025); UMIC TRIGGER UACC YES; Urine Blood Moderate (2+) (Negative); Urine Ketones Negative (Negative); Urine Protein Negative (Neg-Trace)
[2022-05-13 21:01] LABS: Bacteria Urine 1+ (None Seen); Hyaline Casts Urine 0-2 /LPF (0-2); RBC Urine >20 /HPF (0-2); Squamous Epithelial Cell Urine 0-2 /HPF (0-2); UACC Culture Trigger YES; WBC Urine 21-50 /HPF (0-5)
[2022-05-13] MEDS: cephALEXin 500 MG CAPSULE PO (21:36)
== END 2022-05-13 22:02 | disposition home or self-care (01) ==
PROVIDERS: Emergency Provider Emergency Medicine Emergency Medical Services; PCP Internal Medicine
DX: N30.01 Acute cystitis with hematuria (principal); R35.0 Frequency of micturition; E11.9 Type 2 diabetes mellitus without complications; Z79.899 Other long term (current) drug therapy; Z87.891 Personal history of nicotine dependence; Z79.4 Long term (current) use of insulin
CPT/HCPCS: 36415; 51798; 80053; 81001; 83690; 85025; 85610; 85730; 87086; 87088; 87186; 99283

== ENCOUNTER 2022-05-27 10:37 | Outpatient (REF) | payer MEDICARE, SELFPAY ==
[2022-05-27 13:44] LABS: MANUAL DIFF FLAG NO
[2022-05-27 13:57] LABS: Basophils Percent Auto 0.5 % (0-2); Eosinophils Absolute Auto 0.2 X10*3/uL (0.0-0.4); Eosinophils Percent Auto 2.9 % (0-4); Hematocrit 39.2 % (42.0-52.0); Hemoglobin 12.8 g/dl (14.0-18.0); Imm Gran Abs Auto 0.07 X10*3/uL (0.00-0.03); Imm Gran Pct Auto 1.1 % (0.0-0.4); Lymphocytes Absolute Auto 0.8 X10*3/uL (1.2-4.9); Lymphocytes Percent Auto 11.7 % (20-40); Mean Corpuscular HGB Conc 32.7 g/dl (31.0-36.0); Mean Corpuscular Hemoglobin 32.4 pg (27.0-33.0); Mean Corpuscular Volume 99.2 fL (80.0-98.0); Mean Platelet Volume 10.6 fL (9.4-12.4); Monocytes Absolute Auto 0.6 X10*3/uL (0.1-1.2); Monocytes Percent Auto 8.8 % (2-11); Neutrophils Absolute Auto 4.9 x10*3/uL (2.0-8.3); Platelet Count 113 X10*3/uL (160-400); Red Blood Count 3.95 X10*6/uL (4.60-5.80); Red Cell Distribution Width 14.2 % (11.0-16.0); White Blood Count 6.5 X10*3/uL (4.8-10.8)
== END 2022-05-27 10:38 | disposition home or self-care (01) ==
LOC: HO.10HDL 10:37
PROVIDERS: Visit Provider Internal Medicine Medical Oncology
DX: R16.1 Splenomegaly, not elsewhere classified (principal); D61.818 Other pancytopenia
CPT/HCPCS: 36415; 85025

== ENCOUNTER 2022-05-29 08:54 | Outpatient (REF) | payer MEDICARE, SELFPAY ==
--- NOTE | ~2022-05-29 | US_ITS ---
EXAMINATION: US ABDOMEN COMPLETE CLINICAL INFORMATION: Splenomegaly. Pancytopenia. COMPARISON: CT abdomen and pelvis 05/10/2021. TECHNIQUE: Real-time imaging of the abdominal viscera. FINDINGS: PANCREAS: Normal. ABDOMINAL AORTA: The proximal, mid, and distal segments are normal in caliber. INFERIOR VENA CAVA: Visualized portions are normal. LIVER: The liver is limited in evaluation due to overlying gas and patient's body habitus. The liver is normal in size. The liver contour is normal. The liver is diffusely increased in echogenicity and heterogeneous. No focal hepatic lesion. There is no intrahepatic biliary duct dilatation seen. GALLBLADDER: The gallbladder is physiologically distended. Multiple mobile gallstones are present. No evidence of gallbladder wall thickening or pericholecystic fluid. Gallbladder wall thickness is 0.25 cm. COMMON BILE DUCT: Normal in caliber measuring 0.23 cm in diameter. RIGHT KIDNEY: No hydronephrosis. No renal calculi or focal parenchymal lesions. The kidney measures 11.1 cm in maximum dimension. There is a peripelvic cyst measuring 2.0 x 1.2 x 0.83 cm LEFT KIDNEY: There is anechoic cyst in the upper pole measuring 5.3 x 3.5 x 4.6 cm. Also visualized is a parapelvic cyst midpole measuring 3.0 x 1.9 x 2.0 cm. No hydronephrosis or renal calculi. The kidney measures 12.8 cm in maximum dimension. SPLEEN: Normal. The spleen measures 9.6 cm in maximum dimension. FREE FLUID: None. US/US abdomen complete IMPRESSION: Very heterogeneous and echogenic liver without focal lesion, however, limited in evaluation due to body habitus. Bilateral peripelvic renal cyst and upper pole simple left renal cyst.
== END 2022-05-29 08:55 | disposition home or self-care (01) ==
LOC: HO.US 08:54
PROVIDERS: Visit Provider Internal Medicine Medical Oncology
DX: R16.1 Splenomegaly, not elsewhere classified (principal); D61.818 Other pancytopenia
CPT/HCPCS: 76700

== ENCOUNTER → 2022-10-02 13:19 | Outpatient (BNVA) | payer MEDICARE, SELFPAY | PROVIDERS: PCP Internal Medicine; Referring Provider Internal Medicine; Visit Provider Internal Medicine Cardiovascular Disease | DX: Z45.018 Encounter for adjustment and management of other part of cardiac pacemaker (principal); I48.19 Other persistent atrial fibrillation; I50.30 Unspecified diastolic (congestive) heart failure; R07.9 Chest pain, unspecified | CPT/HCPCS: 93280; 99212 ==

== ENCOUNTER → 2022-10-06 08:05 | Outpatient (REF) | payer MEDICARE, SELFPAY ==
--- NOTE | ~2022-10-06 | NM_ITS ---
Myocardial perfusion study Indication: Chest pain to evaluate for myocardial ischemia Technique: The patient was brought in for a Lexiscan perfusion study on 10/06/2022. Patient performed low-level exercise and was injected 0.4 mg of Lexiscan intravenously. Within a minute of injection, 25 mCi of sestamibi was given intravenously. Images were obtained using the SPECT gamma camera interlaced with the gating device. Images were obtained in supine position. Resting perfusion study was performed on 10/08/2022. Patient was administered 25 mCi of sestamibi intravenously at rest. Images were then obtained in supine position. Images obtained with and without CT attenuation. Total DLP 112 mGy-cm. Images were processed with the software and compared side to side in short axis, horizontal long axis and vertical long axis views. Findings: The stress perfusion study showed non attenuated images show absent uptake in the basal and mid inferolateral wall of the LV myocardium as well as mildly reduced uptake in the apex as well as distal lateral wall of the LV myocardium. Is also moderate to severely reduced uptake in the basal lateral wall of the LV myocardium. The inferior wall is obscured by subdiaphragmatic uptake but there is suggestion of mildly reduced uptake in the inferior wall of the LV myocardium. Attenuation corrected images show minimally improved uptake in the inferior wall which may suggest diaphragmatic attenuation but shows persistent absent uptake in the basal and mid inferolateral as well as moderate to severely reduced uptake in the basal lateral wall of the LV myocardium. The gated study shows reduced LV systolic function with calculated LVEF of 34%. LV cavity is mildly dilated size. The gated study shows absent wall thickening and contraction of basal and mid inferolateral segments with hypokinesis of other segments. Resting study shows no improvement in uptake in the inferolateral as well as the basal lateral wall suggestive both on attenuated corrected as well as non attenuated images. On non attenuated images inferior wall uptake is again obscured by subdiaphragmatic uptake.. Gating at rest reveals basal and mid inferolateral wall motion abnormality with ejection fraction at 30%. 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 The inferior wall evaluation is suboptimal due to subdiaphragmatic uptake. NM/NM nnamdi perf SPECT rest & str Impression: 1. Myocardial perfusion imaging study shows transmural infarct of the basal and mid inferolateral wall extending into the inferolateral wall with no obvious significant myocardial ischemia 2. Gated LVEF is 34% 3. Transient ischemic dilatation not present but LV cavity is dilated EKG is nondiagnostic for ischemia
--- NOTE | 2022-10-06 08:08 | CA_ITS ---
Acquisition Time: 2022-10-06 08:14:32 Total Exercise Time: 00:02:00 Test Indications: CHEST PAIN AFIB Medications: SEE H Protocol: LEXISCAN Max HR: 092 BPM 68% of Pred: 135 BPM Max BP: 134/072 mmHG Max Work Load: 1.0 METS Pharmacological stress test with Lexiscan injection, while sitting and kicking his legs, without anginal symptoms, with isolated PVC, with normotensive response to injection, with nondiagnostic EKG for ischemia. In recovery he was treated with Aminophylline 75mg IVP to reverse Lexiscan. Nuclear images pending. Test reviewed with Dr Deluca. Referred By: Titi Deluca Overread By: ALEXSANDRA JOHNSON
== END ==
LOC: HO.CARD 08:05
PROVIDERS: PCP Internal Medicine; Visit Provider Internal Medicine Cardiovascular Disease
DX: R07.9 Chest pain, unspecified (principal)
CPT/HCPCS: 78452; 93017; A9500; J0280; J2785

== ENCOUNTER 2022-10-08 19:05 | Emergency (ER) | payer MEDICARE, SELFPAY ==
--- NOTE | ~2022-10-08 | CT_ITS ---
EXAMINATION: NONCONTRAST HEAD CT NONCONTRAST CERVICAL SPINE CT INDICATION INFORMATION: Fall. Head strike. On lymph node clips. COMPARISON: 12/28/2020 TECHNIQUE: Separate noncontrast CT examinations of the head and cervical spine were performed. Coronal and sagittal images were created for each examination at the technologist workstation. This CT examination was performed using dose optimization techniques as appropriate, variously including the following: *Automated exposure control *Adjustment of mA and/or kV according to patient size (this includes techniques or standardized protocols for targeted exams where dose is matched to indication/reason for exam; i.e. extremities or head) *Use of iterative reconstruction technique DLP: 1112 mGy-cm FINDINGS: Head: There is no evidence of acute intracranial hemorrhage or territorial infarction. No abnormal mass effect or midline shift is seen. Mari to white matter differentiation is well preserved. No extra-axial fluid collections are identified. No hydrocephalus. Proportional prominence of the ventricles and sulcal spaces is consistent with mild volume loss. Patchy periventricular and deep white matter hypoattenuation is consistent with mild small vessel ischemic changes. No acute osseous or soft tissue abnormality. Partially opacified left mastoid air cells. The right mastoid air cells and visualized portions of the paranasal sinuses are well aerated. Cervical spine: Straightening of the normal cervical lordosis. Slight anterolisthesis of C2 on C3, appearing degenerative. There is otherwise anatomic alignment of the vertebral bodies and posterior elements. The atlantoaxial and atlantooccipital articulations are intact. Vertebral body heights are maintained. There is multilevel intervertebral disc space narrowing with endplate osteophyte formation and facet arthropathy. No evidence of acute fracture. Nonspecific lucent appearance within the C6 vertebral body. This is unchanged. No prevertebral soft tissue swelling. Visualized portions of the lung apices are unremarkable. The thyroid gland is unremarkable. CT/CT cervical spine wo IV con IMPRESSION: 1. No acute intracranial finding. 2. No acute fracture or malalignment of the cervical spine. Moderate degenerative changes.
[2022-10-08 20:37] VITALS: BP 138/64; PULSE 72; RESP 17; TEMP 36.6; O2SAT 97; BMI 28.1
--- NOTE | 2022-10-08 20:37 | ED_ITS ---
HPI - Fall General Chief Complaint: Fall <Zari Talbert CNP - Last Filed: 10/08/22 20:42> Stated Complaint: Wound on head , urgent care req cat scan <Zari Talbert CNP - Last Filed: 10/08/22 20:42> Time Seen by Provider: 10/08/22 21:36 <Zari Talbert CNP - Last Filed: 10/08/22 20:42> Source: patient and family (Patient's daughter) <Fabiola Benavidez MD - Last Filed: 10/08/22 21:57> Mode of arrival: ambulatory <Fabiola Benavidez MD - Last Filed: 10/08/22 21:57> Limitations: no limitations <Fabiola Benavidez MD - Last Filed: 10/08/22 21:57> History of Present Illness HPI Narrative: Patient comes in the emergency room complaining of a mechanical fall. Patient states that he was walking, uses a walker which got tangled in a cable. Patient fell backwards and hit the back of his head. Patient states that he did not lose consciousness. Patient does take Eliquis for atrial fibrillation. Patient denies headache. Patient complaining of mild neck soreness. Patient states that he had he denies any other injuries <Fabiola Benavidez MD - Last Filed: 10/08/22 21:57> Related Data Home Medications: Home Medications Medication Instructions Recorded Confirmed cholecalciferol (vitamin D3) 125 1 cap PO DAILY 12/14/20 10/02/22 mcg (5,000 unit) capsule fluticasone propionate 50 2 spray intranasal DAILY 12/14/20 10/02/22 mcg/actuation nasal spray,suspension insulin aspart U-100 100 unit/mL 1 sliding scale dose subcut 12/14/20 10/02/22 subcutaneous solution (Novolog USEASDIRECTD U-100 Insulin aspart) insulin degludec 100 unit/mL (3 54 unit subcut DAILY 12/14/20 10/02/22 mL) subcutaneous pen (Tresiba FlexTouch U-100 insulin) ipratropium 20 mcg-albuterol 100 1 puff inhalation QID 12/14/20 10/02/22 mcg/actuation mist for inhalation (Combivent Respimat) multivitamin 1 tab PO DAILY 12/14/20 10/02/22 atorvastatin 40 mg tablet 40 mg PO BEDTIME 06/13/21 10/02/22 budesonide-formoterol HFA 80 1 inh inhalation DAILY 06/13/21 10/02/22 mcg-4.5 mcg/actuation aerosol inhaler (Symbicort) losartan 25 mg tablet 25 mg PO BID 06/13/21 10/02/22 pregabalin 150 mg capsule 150 mg PO QID 06/13/21 10/02/22 diphenoxylate-atropine 2.5 tab PO 12/02/21 10/02/22 mg-0.025 mg tablet ascorbic acid (vitamin C) 500 mg mg PO 12/19/21 10/02/22 capsule cholecalciferol (vitamin D3) 25 25 mcg PO DAILY 12/19/21 10/02/22 mcg (1,000 unit) capsule magnesium 200 mg tablet 200 mg PO DAILY 12/19/21 10/02/22 vitamin B complex (B 1 tab PO DAILY 12/19/21 10/02/22 Complex-Vitamin B12 tablet) Previous Rx's Medication Instructions Recorded gabapentin 100 mg capsule 100 mg PO BID 30 days #60 caps 01/06/21 apixaban 5 mg tablet (Eliquis) 5 mg PO BID 90 days #180 tabs 03/20/21 furosemide 20 mg tablet (Lasix) 10 mg PO DAILY PRN edema #90 tabs 08/05/21 metoprolol succinate 25 mg 25 mg PO DAILY #30 tabs 09/26/22 tablet,extended release 24 hr dronedarone 400 mg tablet (Multaq) 400 mg PO BID #60 tabs 10/02/22 isosorbide mononitrate 30 mg 30 mg PO DAILY #30 tabs 10/02/22 tablet,extended release 24 hr <Zari Talbert CNP - Last Filed: 10/08/22 20:42> Allergies/Adverse Reactions: Allergies Allergy/AdvReac Type Severity Reaction Status Date / Time No Known Allergies Allergy Mild N/A Verified 10/08/22 20:40 <Zari Talbert CNP - Last Filed: 10/08/22 20:42> Review of Systems Review of Systems: Constitutional : No Weight loss, No Fever, No Chills, No Night Sweats, No Fatigue, No Malaise ENT/Mouth : No Hearing loss, No Ear Pain, No Nasal Congestion, No Sinus Pain, No Hoarseness, No sore throat, No Rhinorrhea, No Swallowing Difficulty Eyes: No Eye Pain, No Swelling, No Redness, No Foreign Body, No Discharge, No Vision Changes Cardiovascular : No Chest Pain, No SOB, No Dyspnea on Exertion, No Orthopnea, No Edema, No Palpitations Respiratory : No Cough, No Sputum, No Wheezing, No Smoke Exposure, No Dyspnea Gastrointestinal : No Nausea, No Vomiting, No Diarrhea, No Constipation, No abdominal Pain, No Hematochezia, No Melena Genitourinary : no irregular bleeding, No Dysuria, No Urinary Frequency, No Hematuria, No Urinary Incontinence, No Urgency, No Flank Pain, No Urinary Flow Changes, No Hesitancy Musculoskeletal : Complaining of mild neck soreness No Myalgias, No Joint Swelling Skin : Complaining of hematoma/skin tear in the posterior aspect of the scalp Neuro : No Weakness, No Numbness, No Paresthesias, No Loss of Consciousness, No Dizziness, No Headache Psych : No Anxiety/Panic, No Depression, No SI/HI/AH/VH, No Social Issues, Heme/Lymph: No Bruising, No Bleeding,No Lymphadenopathy Endocrine : No Polyuria, No Polydipsia, No Temperature Intolerance <Fabiola Benavidez MD - Last Filed: 10/08/22 21:57> FOR[facility]LY [facility] Past Medical History Medical History: Medical History (HFpEF) heart failure with preserved ejection fraction Acute kidney injury Bifascicular block CAD (coronary artery disease) Cardiac pacemaker in situ (~12/2020) CHF exacerbation COVID-19 vaccine series completed Diabetes Fever of unknown origin Hepatorenal syndrome History of cardioversion History of ST elevation myocardial infarction (STEMI) HLD (hyperlipidemia) HTN (hypertension) Hx of Lyme disease Leukopenia Myocardial infarct, old Pancytopenia Paroxysmal atrial fibrillation Persistent atrial fibrillation Prostate CA PVC (premature ventricular contraction) Supratherapeutic INR Symptomatic bradycardia Thrombocytopenia Tubular adenoma of colon Ventricular bigeminy <Zari Talbert CNP - Last Filed: 10/08/22 20:42> Surgical History: Surgical History History of cardiac pacemaker (~12/2020) History of cervical spinal surgery History of colonoscopy History of left inguinal hernia repair History of lumbar discectomy History of radical prostatectomy History of total right knee replacement (TKR) <Zari Jennaeli Talbert CNP - Last Filed: 10/08/22 20:42> Social History Social History: Social History Household Members: Spouse Housing: House Are you a primary child care provider to a significant other at home: No Do you presently have visiting nurse or other home services: No Alcohol intake: never Patient Tobacco Use Status: Former Tobacco user Quit Date: age 22's Tobacco use type: Cigarette Years Smoked: 10 Current occupational status: retired <Zarimarquis Talbert CNP - Last Filed: 10/08/22 20:42> Physical Exam Vital Signs: Vital Signs: Last Vital Signs Temp 97.8 F 10/08/22 20:37 Pulse 72 10/08/22 20:37 Resp 17 10/08/22 20:37 BP 138/64 10/08/22 20:37 Pulse Ox 97 10/08/22 20:37 O2 Del Method 10/08/22 20:37 BMI result Body Mass Index 28.1 <Zari West GRACE Talbert - Last Filed: 10/08/22 20:42> Vital Signs: Last Vital Signs Temp 97.8 F 10/08/22 20:37 Pulse 72 10/08/22 20:37 Resp 17 10/08/22 20:37 BP 138/64 10/08/22 20:37 Pulse Ox 97 10/08/22 20:37 O2 Del Method 10/08/22 20:37 BMI result Body Mass Index 28.1 <Fabiola Benavidez MD - Last Filed: 10/08/22 21:57> Const: Other: Appearance: Alert. Oriented X3. No acute distress. Eyes: Pupils equal, round and reactive to light. ENT: Pharynx normal. Neck: Normal inspection. Neck supple. No lymph nodes noted. No crepitus, no palpable step-offs, normal range of motion with flexion and extension CVS: Normal heart rate and rhythm. Pulses normal. Normal S1 and S2 Respiratory: No respiratory distress. Breath sounds normal. No Wheezing. No rales Abdomen: Soft and nontender. No rigidity. No distention. Skin: Skin warm and dry. There is a 5 cm x 5 cm hematoma in the scalp posteriorly. There is a small skin tear Extremities: No lower extremity edema. No Lacerations. No Rash Neuro: Oriented X 3. No motor deficit. No sensory deficit. Moving all extremities. No slurred speech. CN 2 through 12 grossly intact Psych: calm, cooperative, normal affect <Fabiola Benavidez MD - Last Filed: 10/08/22 21:57> Course Course Course Narrative: Patient is an 87-year-old male who presents to emergency department for evaluation after a fall. Mechanical trip and fall, walker got caught on a cord that was on the floor in a store. Positive head strike, no LOC. he is on Eliquis. Also reporting diffuse neck pain. He was evaluated at walk-in clinic in [place], and was advised to come to the emergency department. Denies headache, dizziness, lightheadedness, confusion, numbness or tingling, chest pain, shortness of breath difficulty breathing. Moving all extremities. Patient has a hematoma to the left occiput Plan: CT head and cervical spine <Zari Talbert CNP - Last Filed: 10/08/22 20:42> Medical Decision Making Medical Decision Making MDM Narrative: -skin tear was covered, bleeding controlled with pressure. -CT scan of the head and neck are unremarkable. -patient is a bit sore in his neck, no headache, otherwise asymptomatic. <Fabiola Benavidez MD - Last Filed: 10/08/22 21:57> Differential Diagnosis Differential Diagnoses: The differential diagnosis associated with the presentation includes (Contusion, concussion, hematoma, intracranial bleed) <Fabiola Benavidez MD - Last Filed: 10/08/22 21:57> Independent Interpretation I performed an independent interpretation of an: CT Scan <Fabiola Benavidez MD - Last Filed: 10/08/22 21:57> Radiology Impression Discussion of test interpretation with radiology: I have reviewed the radiologist's reading. <Fabiola Benavidez MD - Last Filed: 10/08/22 21:57> Radiologist Impression: INDINGS: Head: There is no evidence of acute intracranial hemorrhage or territorial infarction. No abnormal mass effect or midline shift is seen. Mari to white matter differentiation is well preserved. No extra-axial fluid collections are identified. No hydrocephalus. Proportional prominence of the ventricles and sulcal spaces is consistent with mild volume loss. Patchy periventricular and deep white matter hypoattenuation is consistent with mild small vessel ischemic changes. No acute osseous or soft tissue abnormality. Partially opacified left mastoid air cells. The right mastoid air cells and visualized portions of the paranasal sinuses are well aerated. Cervical spine: Straightening of the normal cervical lordosis. Slight anterolisthesis of C2 on C3, appearing degenerative. There is otherwise anatomic alignment of the vertebral bodies and posterior elements. The atlantoaxial and atlantooccipital articulations are intact. Vertebral body heights are maintained. There is multilevel intervertebral disc space narrowing with endplate osteophyte formation and facet arthropathy. No evidence of acute fracture. Nonspecific lucent appearance within the C6 vertebral body. This is unchanged. No prevertebral soft tissue swelling. Visualized portions of the lung apices are unremarkable. The thyroid gland is unremarkable. CT/CT cervical spine wo IV con IMPRESSION: 1.? No acute intracranial finding. 2.? No acute fracture or malalignment of the cervical spine. Moderate degenerative changes. <Fabiola Benaviedz MD - Last Filed: 10/08/22 21:57> Discharge Plan Discharge Clinical Impression: Fall, Hematoma of scalp <Zari Talbert CNP - Last Filed: 10/08/22 20:42> Patient Disposition: Home, Self-Care <Zari Talbert CNP - Last Filed: 10/08/22 20:42> Instructions: Skin Tear (ED), Hematoma (ED) <Zari Talbert CNP - Last Filed: 10/08/22 20:42> Additional Instructions: Please follow-up with your primary care physician tomorrow. If you have any worsening or new symptoms, please return to the emergency room or call 911 <Zari Talbert CNP - Last Filed: 10/08/22 20:42> Prescriptions: No Action Eliquis 5 mg tablet 5 mg PO BID 90 Days Qty: 180 3RF furosemide [Lasix] 20 mg tablet 10 mg PO DAILY PRN (Reason: edema) Qty: 90 0RF metoprolol succinate 25 mg tablet extended release 24 hr 25 mg PO DAILY Qty: 30 5RF fluticasone propionate 50 mcg/actuation spray,suspension 2 spray intranasal DAILY cholecalciferol (vitamin D3) 125 mcg (5,000 unit) capsule 1 cap PO DAILY Tresiba FlexTouch U-100 100 unit/mL (3 mL) insulin pen 54 unit subcut DAILY Combivent Respimat 20-100 mcg/actuation mist 1 puff inhalation QID multivitamin Tablet 1 tab PO DAILY insulin aspart U-100 [Novolog U-100 Insulin aspart] 100 unit/mL Solution 1 sliding scale dose SUBCUT USEASDIRECTD gabapentin 100 mg Capsule 100 mg PO BID 30 Days Qty: 60 0RF diphenoxylate-atropine 2.5-0.025 mg tablet PO atorvastatin 40 mg tablet 40 mg PO BEDTIME budesonide-formoterol [Symbicort] 80-4.5 mcg/actuation HFA aerosol inhaler 1 inh inhalation DAILY pregabalin 150 mg capsule 150 mg PO QID losartan 25 mg tablet 25 mg PO BID magnesium 200 mg tablet 200 mg PO DAILY vitamin B complex [B Complex-Vitamin B12] Tablet 1 tab PO DAILY cholecalciferol (vitamin D3) 25 mcg (1,000 unit) capsule 25 mcg PO DAILY ascorbic acid (vitamin C) 500 mg capsule PO Multaq 400 mg tablet 400 mg PO BID Qty: 60 1RF Rx Instructions: must administer with a meal/food, start on 10/22/2022 isosorbide mononitrate 30 mg tablet extended release 24 hr 30 mg PO DAILY Qty: 30 3RF <Zari Talbert, GRACE - Last Filed: 10/08/22 20:42>
[2022-10-08 22:00] VITALS: BP 133/61; PULSE 69; RESP 16; TEMP 36.6
--- NOTE | 2022-10-08 22:04 | PC.NURSE ---
pt daughter at bedside. per dr york's this rn wrapped hematoma on posterior head. pt tolerated well. pt ambulates with walker
--- NOTE | 2022-10-08 22:10 | PC.NURSE ---
pt ambulatory with walker at discharge. pt daughter at bedside with pt. pt provided with discharge packet. pt verbalized understanding of discharge plan
== END 2022-10-08 22:18 | disposition home or self-care (01) ==
LOC: HO.ED 22:08
PROVIDERS: Emergency Provider Emergency Medicine; PCP Internal Medicine
DX: S00.03XA Contusion of scalp, initial encounter (principal); W01.0XXA Fall on same level from slipping, tripping and stumbling without subsequent striking against object, initial encounter; M54.2 Cervicalgia; I48.0 Paroxysmal atrial fibrillation; Z87.891 Personal history of nicotine dependence; Z95.0 Presence of cardiac pacemaker; Z79.02 Long term (current) use of antithrombotics/antiplatelets; Z79.4 Long term (current) use of insulin; Z79.899 Other long term (current) drug therapy; Z79.01 Long term (current) use of anticoagulants; Y93.89 Activity, other specified; Y92.019 Unspecified place in single-family (private) house as the place of occurrence of the external cause; Y99.9 Unspecified external cause status
CPT/HCPCS: 70450; 72125; 99284

== ENCOUNTER 2022-10-14 14:38 | Outpatient (REF) | payer MEDICARE, SELFPAY ==
--- NOTE | ~2022-10-14 | XR_ITS ---
EXAMINATION: XR PELVIS CLINICAL INFORMATION: Low back pain status post fall COMPARISON: CT abdomen/pelvis dated 05/10/2021 TECHNIQUE: AP view of the pelvis. FINDINGS: No acute fracture or dislocation. Moderate sclerosis along the sacroiliac joints bilaterally. Mild bilateral hip joint space narrowing and small acetabular marginal osteophytes. Femoral heads are spherical. Pubic symphysis is normal. Vascular calcification XR/XR pelvis 1-2V IMPRESSION: * No acute fracture or dislocation. * Moderate bilateral sacroiliac arthrosis.
--- NOTE | ~2022-10-14 | XR_ITS ---
EXAMINATION: XR LUMBOSACRAL SPINE CLINICAL INFORMATION: Low back pain status post fall COMPARISON: CT abdomen/pelvis dated 05/10/2021. TECHNIQUE: Three views of the lumbosacral spine. FINDINGS: No acute fracture or traumatic malalignment. Interspinous spacer at L3-L4. Stable grade 1 anterolisthesis of L3 over L4. Near-complete obliteration of the disc spaces throughout the lumbar spine with accompanying bulky endplate osteophytes. Mild levoconvex lumbar scoliosis centered at L2-L3. Mild bilateral sacroiliac joint sclerosis. XR/XR lumbar spine 2-3V IMPRESSION: * No acute fracture or traumatic malalignment. * Severe lumbar spondylosis as described.
--- NOTE | ~2022-10-14 | XR_ITS ---
EXAMINATION: XR SHOULDER, RIGHT CLINICAL INFORMATION: Right shoulder pain status post fall COMPARISON: 04/09/2022 TECHNIQUE: Three views of the right shoulder. FINDINGS: No acute fracture or dislocation. High riding humeral head abuts the undersurface of the distal clavicle/acromion, as well as present previously, with a degree of remodeling of the undersurface of the distal clavicle and acromion. Moderate marginal osteophytes of the glenohumeral joint. Soft tissues unremarkable. XR/XR shoulder RT min 2V IMPRESSION: * No acute fracture or dislocation. * High riding humeral head compatible with chronic rotator cuff tear. * Moderate marginal osteophytes of the glenohumeral joint.
== END 2022-10-14 14:39 | disposition home or self-care (01) ==
LOC: HO.HMGCX 14:38
PROVIDERS: PCP Internal Medicine; Visit Provider Internal Medicine
DX: M54.50 Low back pain, unspecified (principal); M25.511 Pain in right shoulder; Z91.81 History of falling
CPT/HCPCS: 72100; 72170; 73030

== ENCOUNTER → 2022-10-16 10:41 | Outpatient (REF) | payer MEDICARE, SELFPAY ==
--- NOTE | 2022-10-16 10:44 | CA_ITS ---
Transthoracic Echocardiogram Patient (Last, First, Middle): Parent, Filemon Holloway Gender: Male Date of : 1935 Age: 87 Procedure Date: 10/16/2022 Procedure Type: Transthoracic Echocardiogram Location: OP Height: 172.72 cm Weight: 81.65 kg BSA: 1.95 m2 Heart Rate: 70 bpm BP: 120 / 70 mmHg Theater Teacher: ANNE MARIE Referring MD: Titi Deluca MD Symptoms: I50.30 - Unspecified diastolic (congestive) heart failure Study Quality: Fair ECG Rhythm: Atrial Fibrillation Conclusions: - The left ventricular systolic function is normal. The calculated ejection fraction is 62% by biplane method. - There is mild calcification of the aortic valve. - There is mild mitral valve regurgitation. Findings Left Ventricle Mildly increased left ventricular cavity size. There is mildly increased left ventricular wall thickness. The left ventricular systolic function is normal. The calculated ejection fraction is 62% by biplane method. There is no evidence of regional wall motion abnormalities. Diastolic function is normal for age. Right Ventricle Mildly increased right ventricular cavity size. There is normal right ventricular systolic function. Atria Both atria are normal in size. Aortic Valve There is mild calcification of the aortic valve. There is no aortic valve stenosis. There is no aortic valve regurgitation. Mitral Valve There is mild anterior mitral leaflet thickening. There is mild mitral valve regurgitation. There is no mitral valve stenosis. Pulmonic Valve The pulmonic valve is likely normal. Tricuspid Valve There is mild tricuspid valve regurgitation. There is no evidence of pulmonary hypertension. Great Vessels The asc aorta is normal in size. Venous The inferior vena cava was not well visualized. The inferior vena cava is normal in size. Pericardium/Pleural There is a trivial pericardial effusion. Prior Study Comparison Changes noted compared to prior study dated: 11/11/2021. LVEDD suggests mild dilatation, but not clear if technical. Measurements 2D Linear Measurements IVSd: 1.16 0.6-0.9/0.6-1.0 cm LVIDd: 5.71 3.9-5.3/4.2-5.9 cm LVIDd Index: 2.93 2.4-3.2/2.2-3.1 cm/m2 LVIDs: 4.69 2.0-3.6 cm LVPWd: 1.06 0.7-1.1 cm LA Diam: 4.70 2.7-3.8/3.0-4.0 cm LAIDs Index: 2.41 1.5-2.3 cm/m2 LV Mass: 325.01 67-162/88-224 g LV Mass Index: 166.67 43-95/49-115 g/m2 LVOT Diam: 2.40 3.0+(-)1.3 cm 2D Systolic Function EF 4C: 61.50 >55% EF 2C: 60.30 >55% EF BiP: 62.10 >55% Mitral Valve MV Pk E: 0.84 MV PK A: 0.31 MV Decel Time: 207.00 E/A: 2.70 E'Lateral: 10.00 E'Medial: 6.42 E/E' Med: 13.00 E/E' Lat: 8.40 PHT: 60.00 MVA PHT: 3.67 Decel Gem: 4.05 Aortic Valve AoV Pk Rogelio: 1.41 AoV Mn Rogelio: 1.01 AoV VTI: 0.25 AoV Pk Grad: 8.00 Aov Mn Grad: 5.00 CHRISTIANO Cont.VTI: 2.60 LVOT LVOT Pk Rogelio: 0.79 LVOT Mn Rogelio: 0.54 LVOT VTI: 0.15 LVOT Pk Grad: 2.00 LVOT Mn Grad: 1.00 LVOT Diam: 2.40 LVOT Area: 4.52 Diastolic Function MV Pk E: 0.84 MV Pk A: 0.31 E/A: 2.70 E'Medial: 6.42 E/E' Med: 13.00 E' Laterial: 10.00 E/E' Lat: 8.40 Right Ventricle TAPSE (mm): 18.60 TVS' Rogelio: 10.70 Tricuspid Valve TR Pk Rogelio: 2.20 TR Pk Grad: 19.00 Great Vessels Aorta Sinus of Valsalva: 3.80 2.0-3.5 cm Ao Asc: 3.60 2.1-3.4 cm Updated in Other Vendor System with Status of Final Jean Aguiar MD electronically signed on 10/18/2022 12:09:30 PM with status of Final
== END ==
LOC: HO.CARD 10:41
PROVIDERS: Visit Provider Internal Medicine Cardiovascular Disease
DX: I48.19 Other persistent atrial fibrillation (principal); I50.30 Unspecified diastolic (congestive) heart failure
CPT/HCPCS: 93306

== ENCOUNTER 2022-10-24 09:17 | Day surgery (SDC) | payer MEDICARE, SELFPAY ==
[2022-10-20 14:55] VITALS: BMI 27.2
--- NOTE | 2022-10-23 11:23 | P.CONAN_ITS ---
Documented by User: Natalia Connor NP 10/23/22 11:29 HPI - Anesthesia Eval Consult details Narrative: 87yo M for Cardioversion Eliquis for afib Pacer in situ 10/08/22 Mechanical fall with head strike, no LOC. Seen in [facility] [place] [place] [facility] and all head/neck imaging nml. Hematoma of scalp. PMFSH Active Problems Active Problems: All Active Problems (Updated 10/09/22 @ 00:02 by Background Daemon) Anaplasmosis (Acute) Suspected Lyme disease (Acute) Shingles (herpes zoster) polyneuropathy (Acute) Mediastinal lymphadenopathy (Acute) Chest pain (Acute) Persistent atrial fibrillation (Acute) Hematoma of scalp (Acute) Paroxysmal atrial fibrillation (Acute) (HFpEF) heart failure with preserved ejection fraction (Acute) Cardiac pacemaker in situ (Acute ~12/2020) Past Medical History Medical History (HFpEF) heart failure with preserved ejection fraction Acute kidney injury Bifascicular block CAD (coronary artery disease) Cardiac pacemaker in situ (~12/2020) CHF exacerbation COVID-19 vaccine series completed Diabetes Fever of unknown origin Hepatorenal syndrome History of cardioversion History of ST elevation myocardial infarction (STEMI) HLD (hyperlipidemia) HTN (hypertension) Hx of Lyme disease Leukopenia Myocardial infarct, old Pancytopenia Paroxysmal atrial fibrillation Persistent atrial fibrillation Prostate CA PVC (premature ventricular contraction) Supratherapeutic INR Symptomatic bradycardia Thrombocytopenia Tubular adenoma of colon Ventricular bigeminy Family History Family history of problems with anesthesia: No Surgical History Surgical History History of cardiac pacemaker (~12/2020) History of cervical spinal surgery History of colonoscopy History of left inguinal hernia repair History of lumbar discectomy History of radical prostatectomy History of total right knee replacement (TKR) History of Problems with Anesthesia: No Social History Social History Household Members: Spouse Housing: House Are you a primary manager long term care to a significant other at home: No Do you presently have visiting nurse or other home services: No Alcohol intake: never Patient Tobacco Use Status: Former Tobacco user Quit Date: age 22's Tobacco use type: Cigarette Years Smoked: 10 Smoked in Last 30 Days: No Use of substances other than those prescribed or required for medical reasons: No Are you DNR?: No Advance Directives: No Advance Directives Information Provided: Yes Current occupational status: retired Meds Allergies Allergy/AdvReac Type Severity Reaction Status Date / Time No Known Allergies Allergy Mild N/A Verified 10/24/22 10:13 Home Medications Medication Instructions Recorded Confirmed Last Taken Type fluticasone propionate 50 2 spray intranasal DAILY 12/14/20 10/20/22 02/20/21 08:00 History mcg/actuation nasal spray,suspension insulin aspart U-100 100 unit/mL 1 sliding scale dose subcut 12/14/20 10/20/22 Unknown History subcutaneous solution (Novolog USEASDIRECTD U-100 Insulin aspart) insulin degludec 100 unit/mL (3 54 unit subcut DAILY 12/14/20 10/20/22 02/20/21 08:00 History mL) subcutaneous pen (Tresiba 60 Units FlexTouch U-100 insulin) ipratropium 20 mcg-albuterol 100 1 puff inhalation QID 12/14/20 10/24/22 10/24/22 07:00 History mcg/actuation mist for inhalation (Combivent Respimat) multivitamin 1 tab PO DAILY 12/14/20 10/20/22 Unknown History atorvastatin 40 mg tablet 40 mg PO BEDTIME 06/13/21 10/20/22 Unknown History budesonide-formoterol HFA 80 1 inh inhalation DAILY 06/13/21 10/24/22 10/24/22 07:00 History mcg-4.5 mcg/actuation aerosol inhaler (Symbicort) losartan 25 mg tablet 25 mg PO BID 06/13/21 10/20/22 Unknown History pregabalin 150 mg capsule 150 mg PO QID 06/13/21 10/20/22 Unknown History diphenoxylate-atropine 2.5 tab PO 12/02/21 10/02/22 Unknown History mg-0.025 mg tablet ascorbic acid (vitamin C) 500 mg 500 mg PO DAILY 12/19/21 10/20/22 Unknown History capsule cholecalciferol (vitamin D3) 25 25 mcg PO DAILY 12/19/21 10/20/22 Unknown History mcg (1,000 unit) capsule magnesium 200 mg tablet 200 mg PO DAILY 12/19/21 10/20/22 Unknown History vitamin B complex (B 1 tab PO DAILY 12/19/21 10/20/22 Unknown History Complex-Vitamin B12 tablet) insulin degludec 100 unit/mL (3 54 unit subcut DAILY 10/20/22 10/20/22 Unknown History mL) subcutaneous pen (Tresiba FlexTouch U-100 insulin) Exam Exam Date and Time: October 23, 2022 1123 Height,Weight and Vital Signs: Height 5 ft 7 in Weight 78.925 kg Pertinent Lab Results Pertinent Lab Results: Laboratory Tests 05/13/22 05/27/22 18:20 10:50 WBC 6.5 Hgb 12.8 L Hct 39.2 L Plt Count 113 L Sodium 137 Potassium 4.1 D Chloride 104 Carbon Dioxide 23 BUN 29 H Creatinine 1.00 Narrative Narrative: ECHO 09/2022 Conclusions: - The left ventricular systolic function is normal.? The ? calculated ejection fraction is 62% by biplane method. ? - There is mild calcification of the aortic valve. ? - There is mild mitral valve regurgitation.?? NM nnamdi perf SPECT rest & str 09/2022 Impression: ? 1.? Myocardial perfusion imaging study shows transmural infarct of the basal and mid inferolateral wall extending into the inferolateral wall with no obvious significant myocardial ischemia 2.? Gated LVEF is 34% 3. Transient ischemic dilatation not present but LV cavity is dilated ? EKG is nondiagnostic for ischemia Cardiac Device Check 09/2022 Details: Dual-chamber [employer] pacemaker in place.? Reprogrammed from DDDR to DDIR due to persistent atrial flutter/fibrillation.? Atrial sensing and thresholds could not be checked due to persistent rapid atrial rate.? Ventricular capture thresholds adequate and in our capture mode.? Ventricular pacing 83% of time.? Lead impedance is stable.? Battery life is adequate at about 8 years Assessment and Plan Assessment Anesthesia Assessment: Chart Reviewed Final Anesthetic Review Family History of Problems with Anesthesia: No History of Problems with Anesthesia: No Documented by User: Nikhil Lawton MD 10/24/22 10:18 [facility] Past Medical History Medical History (HFpEF) heart failure with preserved ejection fraction Acute kidney injury Bifascicular block CAD (coronary artery disease) Cardiac pacemaker in situ (~12/2020) CHF exacerbation COVID-19 vaccine series completed Diabetes Fever of unknown origin Hepatorenal syndrome History of cardioversion History of ST elevation myocardial infarction (STEMI) HLD (hyperlipidemia) HTN (hypertension) Hx of Lyme disease Leukopenia Myocardial infarct, old Pancytopenia Paroxysmal atrial fibrillation Persistent atrial fibrillation Prostate CA PVC (premature ventricular contraction) Supratherapeutic INR Symptomatic bradycardia Thrombocytopenia Tubular adenoma of colon Ventricular bigeminy Surgical History Surgical History History of cardiac pacemaker (~12/2020) History of cervical spinal surgery History of colonoscopy History of left inguinal hernia repair History of lumbar discectomy History of radical prostatectomy History of total right knee replacement (TKR) Social History Social History Household Members: Spouse Housing: House Are you a primary manager long term care to a significant other at home: No Do you presently have visiting nurse or other home services: No Alcohol intake: never Patient Tobacco Use Status: Former Tobacco user Quit Date: age 22's Tobacco use type: Cigarette Years Smoked: 10 Smoked in Last 30 Days: No Use of substances other than those prescribed or required for medical reasons: No Are you DNR?: No Advance Directives: No Advance Directives Information Provided: Yes Current occupational status: retired [employer] Allergies Allergy/AdvReac Type Severity Reaction Status Date / Time No Known Allergies Allergy Mild N/A Verified 10/24/22 10:13 Home Medications Medication Instructions Recorded Confirmed Last Taken Type fluticasone propionate 50 2 spray intranasal DAILY 12/14/20 10/20/22 02/20/21 08:00 History mcg/actuation nasal spray,suspension insulin aspart U-100 100 unit/mL 1 sliding scale dose subcut 12/14/20 10/20/22 Unknown History subcutaneous solution (Novolog USEASDIRECTD U-100 Insulin aspart) insulin degludec 100 unit/mL (3 54 unit subcut DAILY 12/14/20 10/20/2202/20/21 08:00 History mL) subcutaneous pen (Tresiba 60 Units FlexTouch U-100 insulin) ipratropium 20 mcg-albuterol 100 1 puff inhalation QID 12/14/20 10/24/22 10/24/22 07:00 History mcg/actuation mist for inhalation (Combivent Respimat) multivitamin 1 tab PO DAILY 12/14/20 10/20/22 Unknown History atorvastatin 40 mg tablet 40 mg PO BEDTIME 06/13/21 10/20/22 Unknown History budesonide-formoterol HFA 80 1 inh inhalation DAILY 06/13/21 10/24/22 10/24/22 07:00 History mcg-4.5 mcg/actuation aerosol inhaler (Symbicort) losartan 25 mg tablet 25 mg PO BID 06/13/21 10/20/22 Unknown History pregabalin 150 mg capsule 150 mg PO QID 06/13/21 10/20/22 Unknown History diphenoxylate-atropine 2.5 tab PO 12/02/21 10/02/22 Unknown History mg-0.025 mg tablet ascorbic acid (vitamin C) 500 mg 500 mg PO DAILY 12/19/21 10/20/22 Unknown History capsule cholecalciferol (vitamin D3) 25 25 mcg PO DAILY 12/19/21 10/20/22 Unknown History mcg (1,000 unit) capsule magnesium 200 mg tablet 200 mg PO DAILY 12/19/21 10/20/22 Unknown History vitamin B complex (B 1 tab PO DAILY 12/19/21 10/20/22 Unknown History Complex-Vitamin B12 tablet) insulin degludec 100 unit/mL (3 54 unit subcut DAILY 10/20/22 10/20/22 Unknown History mL) subcutaneous pen (Tresiba FlexTouch U-100 insulin) Exam Airway Mallampati Class: II TM Dist: >3cm Neck ROM: Full Loose/Missing/Broken Teeth: Yes (poor dentition globally) Heart: irreg irreg s1s2 Lungs: cta b/l Assessment and Plan Assessment Anesthesia Assessment: Anesthesia Plan Discussed Final Anesthetic Review NPO: Yes ASA Class: III Final Preanesthetic Review: No Changes in Pt Med Stat, Meds/Allgs Chart Reviewed, Consent Obtained/Reviewed and Anes Risks/Benef Reviewed Patient Risk: Intermediate Procedure Risk: Intermediate Assessment/Block/Sedation in SS: Assess/Block/Sedation-SS Anesthetic Plan Anesthetic Plan: GA and Agree w/ Assess. and Plan Disposition: Standard PACU
[2022-10-24] VITALS (9 sets, daily range): BP systolic 107–128; BP diastolic 61–73; PULSE 69–78; RESP 9–16; TEMP 36.1–36.7; O2SAT 98–100; BMI 28.1
--- NOTE | 2022-10-24 09:26 | MHC.SHP ---
Pre-Procedural Eval Section A Date of Service: 10/24/22 The patient is an INPATIENT: No Changes since office visit: Yes Patient answered all questions; No Cold of Flu in the past 2 weeks, No New Medical Problems and No Changes in Medication The History & Physical has been completed within 30 days and I have reviewed it.: Yes Section B Chief Complaint: Other persistent atrial fibrillation Allergies: Allergies Allergy/AdvReac Type Severity Reaction Status Date / Time No Known Allergies Allergy Mild N/A Verified 10/08/22 20:40 Plan I have reviewed the history and physical and performed a pertinent physical examination on my patient. No changes have occurred unless specified. Time Spent With Patient Time: Total time managing care of this patient today ____ minutes.
[2022-10-24 10:11] LABS: Glucose, Whole Blood 154 mg/dL (60-115)
[2022-10-24] MEDS: Lactated Ringers 1,000 ML 50 ML IVCONT (10:23)
--- NOTE | 2022-10-24 10:45 | ECG_ITS ---
Test Reason : post cardioversion Blood Pressure : / mmHG Vent. Rate : 077 BPM Atrial Rate : 077 BPM P-R Int : 152 ms QRS Dur : 182 ms QT Int : 474 ms P-R-T Axes : 113 -74 112 degrees QTc Int : 536 ms AV dual-paced rhythm with Premature ventricular complexes Abnormal ECG When compared with ECG of 20-FEB-2021 11:22, Vent. rate has decreased BY 5 BPM Referred By: Titi Deluca Electronically Signed By:TITI DELUCA MD
--- NOTE | 2022-10-24 10:54 | HO.CARDIVERS ---
Cardioversion Procedure Note Cardioversion Date of Procedure: Today Ordering Provider: Myself Performing Provider: Myself Indication for Procedure: Persistent symptomatic atrial flutter Pre-Op Diagnosis: Same Post-Op Diagnosis: Atrial paced rhythm Performed with Transesophageal Echo: No History: See my office note Consent: Verbal and Written consent was obtained from the patient before starting and after confirming oral anticoagulation use. Pacer was checked and confirm that he was still in atrial flutter. The patient was made aware of the risk of synchronized cardioversion including benefits and risks. Procedure: After consent obtained, cardioversion pads were attached in anteroposterior configuration and the patient was sedated by the anesthesia team. Once adequate sedation achieved, patient was delivered 200 joules of biphasic synchronized energy in anteroposterior configuration. Patient converted to atrially paced rhythm after few beats. Pacemaker was reprogrammed to DDDR at 70 beats per minute. Pacing lead impedance is stable. Atrial pacing thresholds were stable. P-wave sensing at 1.1 mV Complications: None Impression: Successful conversion to atrially paced rhythm Recommendations: 1. Continue dronedarone and Eliquis 2. Twelve lead EKG 3. Follow up in the clinic in 4 weeks time
== END 2022-10-24 13:20 | disposition home or self-care (01) ==
PROVIDERS: PCP Internal Medicine; Visit Provider Internal Medicine Cardiovascular Disease
PROC: 5A2204Z Restoration of Cardiac Rhythm, Single (ICD-10-PCS; principal; 2022-10-24 10:30)
DX: I48.92 Unspecified atrial flutter (principal); Z79.01 Long term (current) use of anticoagulants; Z95.0 Presence of cardiac pacemaker; R07.9 Chest pain, unspecified; I11.0 Hypertensive heart disease with heart failure; I50.30 Unspecified diastolic (congestive) heart failure; I25.10 Atherosclerotic heart disease of native coronary artery without angina pectoris; E11.9 Type 2 diabetes mellitus without complications; Z79.4 Long term (current) use of insulin; Z79.899 Other long term (current) drug therapy; Z87.891 Personal history of nicotine dependence
CPT/HCPCS: 82947; 92960; 93005; J0330; J2370

== ENCOUNTER → 2022-11-10 14:39 | Outpatient (BNVA) | payer MEDICARE, SELFPAY | PROVIDERS: PCP Internal Medicine; Referring Provider Internal Medicine; Visit Provider Internal Medicine Cardiovascular Disease | DX: I50.30 Unspecified diastolic (congestive) heart failure (principal); I49.8 Other specified cardiac arrhythmias; I48.0 Paroxysmal atrial fibrillation; I48.19 Other persistent atrial fibrillation; I10 Essential (primary) hypertension; Z98.890 Other specified postprocedural states; Z45.018 Encounter for adjustment and management of other part of cardiac pacemaker | CPT/HCPCS: 93005; 93280; 99212 ==

== ENCOUNTER 2023-01-04 07:23 | Inpatient (IN) | payer MEDICARE, SELFPAY ==
--- NOTE | ~2023-01-04 | US_ITS ---
EXAMINATION: US RETROPERITONEAL COMPLETE (RENAL) CLINICAL INFORMATION: Hematuria. History of radical prostatectomy for history of prostate cancer. COMPARISON: Ultrasound abdomen complete 05/29/2022. CT abdomen and pelvis 05/10/2021. TECHNIQUE: Real-time imaging of the kidneys and bladder. FINDINGS: RIGHT KIDNEY: 12.6 x 5.9 x 5.4 cm (SAG x AP x TRV). The kidney is normal in size, contour, and echogenicity. Renal cortical thickness is normal. No renal calculi or hydronephrosis. There is a simple appearing cyst noted in the midpole measuring 1.3 cm in maximum dimension which does not require follow-up. LEFT KIDNEY: 11.9 x 6.7 x 6.2 cm (SAG x AP x TRV). The kidney is normal in size, contour, and echogenicity. Renal cortical thickness is normal. No renal calculi. There are numerous simple appearing cysts in the largest measuring approximately 5.1 cm in longest dimension which does not require follow-up. There appears to be mild hydronephrosis. BLADDER: Evaluation is limited due to Mena catheter in place and Mena catheter not being clamped with continuous bladder irrigation being performed.. Bilateral ureteral jets are not demonstrated. No focal mass/clot identified. US/US retroperitoneal comp IMPRESSION: Bilateral simple appearing renal cysts. Mild left hydronephrosis. Mena catheter in place with limited evaluation of the bladder as described..
--- NOTE | 2023-01-04 07:38 | ED.ABDPAIN ---
HPI - Abdominal Pain General Chief Complaint: Urogenital-Male Stated Complaint: unable to urinate/ bleeding Time Seen by Provider: 01/04/23 07:32 Source: patient and family (Spouse) Mode of arrival: ambulatory Limitations: no limitations History of Present Illness HPI narrative: 87-year-old male with history prostate cancer and chronic indwelling Mena catheterization for the past 3 months, patient's Mena catheter was clogged and he pulled it out, now he is unable to urinate for the past 2 days feels bloated and distended abdomen with significant discomfort, no fever, no chills. Patient is on Eliquis for chronic atrial fibrillation noted he mildly bleeding in the Mena catheter. Related Data Home Medications Medication Instructions Recorded Confirmed fluticasone propionate 50 2 spray intranasal DAILY 12/14/20 11/10/22 mcg/actuation nasal spray,suspension insulin aspart U-100 100 unit/mL 1 sliding scale dose subcut 12/14/20 11/10/22 subcutaneous solution (Novolog USEASDIRECTD U-100 Insulin aspart) ipratropium 20 mcg-albuterol 100 1 puff inhalation QID 12/14/20 11/10/22 mcg/actuation mist for inhalation (Combivent Respimat) multivitamin 1 tab PO DAILY 12/14/20 11/10/22 atorvastatin 40 mg tablet 40 mg PO BEDTIME 06/13/21 11/10/22 budesonide-formoterol HFA 80 1 inh inhalation DAILY 06/13/21 11/10/22 mcg-4.5 mcg/actuation aerosol inhaler (Symbicort) losartan 25 mg tablet 25 mg PO BID 06/13/21 11/10/22 pregabalin 150 mg capsule 150 mg PO QID 06/13/21 11/10/22 diphenoxylate-atropine 2.5 tab PO 12/02/21 11/10/22 mg-0.025 mg tablet ascorbic acid (vitamin C) 500 mg 500 mg PO DAILY 12/19/21 11/10/22 capsule cholecalciferol (vitamin D3) 25 25 mcg PO DAILY 12/19/21 11/10/22 mcg (1,000 unit) capsule magnesium 200 mg tablet 200 mg PO DAILY 12/19/21 11/10/22 vitamin B complex (B 1 tab PO DAILY 12/19/21 11/10/22 Complex-Vitamin B12 tablet) insulin degludec 100 unit/mL (3 54 unit subcut DAILY 10/20/22 11/10/22 mL) subcutaneous pen (Tresiba FlexTouch U-100 insulin) Previous Rx's Medication Instructions Recorded gabapentin 100 mg capsule 100 mg PO BID 30 days #60 caps 01/06/21 apixaban 5 mg tablet (Eliquis) 5 mg PO BID 90 days #180 tabs 03/20/21 furosemide 20 mg tablet (Lasix) 10 mg PO DAILY PRN edema #90 tabs 08/05/21 isosorbide mononitrate 30 mg 30 mg PO DAILY #30 tabs 10/02/22 tablet,extended release 24 hr dronedarone 400 mg tablet (Multaq) 400 mg PO BID 90 days #180 tabs 12/16/22 Allergies Allergy/AdvReac Type Severity Reaction Status Date / Time No Known Allergies Allergy Mild N/A Verified 11/10/22 14:50 Review of Systems Review of Systems All other systems are reviewed and are negative Constitutional: Reports as per HPI and Reports no additional constitutional complaints Eyes: Reports as per HPI and Reports no additional eye complaints Reports system reviewed and no additional complaints, except as documented Cardiovascular: Reports as per HPI and Reports no additional cardiovascular complaints Respiratory: Reports as per HPI and Reports no additional respiratory complaints Gastrointestinal: Reports as per HPI and Reports no additional gastrointestinal complaints Genitourinary: Reports no additional female genitourinary complaints Musculoskeletal: Reports no additional musculoskeletal complaints Skin/Breast: Reports system reviewed and no additional complaints, except as docu Psychiatric: Reports no additional psychiatric complaints Endocrine: Reports no additional endocrine complaints Hematologic/Lymphatic: Reports no additional hematologic/lymphatic complaints Allergic/Immunologic: Reports no additional allergic/immunologic complaints Reports system reviewed and no additional complaints, except as documented and Reports Abnormal speech present [facility] Past Medical History Medical History (HFpEF) heart failure with preserved ejection fraction Acute kidney injury Bifascicular block CAD (coronary artery disease) Cardiac pacemaker in situ (~12/2020) CHF exacerbation COVID-19 vaccine series completed Diabetes Fever of unknown origin Hepatorenal syndrome History of cardioversion History of ST elevation myocardial infarction (STEMI) HLD (hyperlipidemia) HTN (hypertension) Hx of Lyme disease Leukopenia Myocardial infarct, old Pancytopenia Paroxysmal atrial fibrillation Persistent atrial fibrillation Prostate CA PVC (premature ventricular contraction) Supratherapeutic INR Symptomatic bradycardia Thrombocytopenia Tubular adenoma of colon Ventricular bigeminy Surgical History History of cardiac pacemaker (~12/2020) History of cervical spinal surgery History of colonoscopy History of left inguinal hernia repair History of lumbar discectomy History of radical prostatectomy History of total right knee replacement (TKR) Social History Social History Household Members: Spouse Housing: House Are you a primary child care aide to a significant other at home: No Do you presently have visiting nurse or other home services: No Alcohol intake: never Patient Tobacco Use Status: Former Tobacco user Quit Date: age 22's Tobacco use type: Cigarette Years Smoked: 10 Use of substances other than those prescribed or required for medical reasons: No Advance Directives: Yes Advance Directives Information Provided: No Advance Directives on File: No Current occupational status: retired Physical Exam ED Vital Signs: Vital Signs - 24 hr 01/04/23 07:39 Temperature 97.2 F Pulse Rate 79 Respiratory Rate 18 Blood Pressure 161/78 H Pulse Oximetry 98 Oxygen Delivery Method Room Air BMI result Body Mass Index 28.2 Vital signs have been reviewed as appeared to be correct. Blood pressure elevated due to discomfort, Heart rate normal. Respiration rate normal. Temperature normal. Oxygen saturation normal. Appearance: Alert. Oriented X3. No acute distress. Head: Normal external exam. Normocephalic. Atraumatic. No Guzman signs noted. No raccoon eyes noted Eyes: PERRLA. EOMI. Conjunctiva and sclera normal. Eyelids normal. ENT: TM's Normal. Pharynx normal. Uvula midline. Moist mucous membranes. No trismus noted. No drooling noted. No muffled voice noted. Neck: Normal inspection. Neck supple. FROM. No adenopathy. Thyroid Normal. No meningeal signs. No neck mass noted. CVS: Normal heart rate and rhythm. Heart sound normal. No murmurs noted. Pulses normal throughout. Respiratory: No respiratory distress. Painless inspiration. Breath sounds normal. No wheezes/rales/rhonchi noted. Chest nontender. No accessory muscle usage noted or decreased air movement noted. Abdomen: Suprapubic tenderness with distention, no guarding, no rebound tenderness. Bowel sounds normal in all 4 quadrants. No distention noted. No organomegaly noted. No visible injury noted. Back: No CVA tenderness. Full range of motion noted. Skin: Skin warm and dry. Normal skin color. Normal skin turgor. No rashes/lesions/lacerations noted. Extremities: No lower extremity edema. Extremities exhibit normal range of motion. Extremities nontender. Neuro: Oriented X 3. Cranial nerve exam: II-XII are grossly intact No motor deficit. No sensory deficit. Reflexes normal. Course Course Course Narrative: Mena catheter 16 [place] was placed with bloody urine drainage and some patients symptoms relief will replace the Mena catheter with 3 way is catheter and continuous bladder irrigation. Reevaluation(s) Reevaluation #1: 3 ways catheter with CBI due to hematuria patient is on Eliquis, H&H is which is slightly lower than his baseline, patient remained asymptomatic and hemodynamically stable, bloody urine is still draining through the CBI case discussed with from Urology Service who advised to admit to Medicine and she will give Urology consultation in the morning. Time: 11:19 Medical Decision Making Differential Diagnosis Differential Diagnoses: The differential diagnosis associated with the presentation includes (Coagulopathy, severe anemia, acute renal failure, electrolyte abnormalities, severe hematuria, hemodynamic instability) Admission/Observation Consideration of admission/observation: Escalation of care including admission/observation considered Consult Healthcare Provider Management of the patient was discussed with: Hospitalist (Dr. Mccray) and Feed Crusher Operator (Dr. Cm) Lab Data MDM Lab Attestation statement: I reviewed the patient's lab results. 01/04/23 08:45 01/04/23 08:45 Labs: Lab Results 01/04/23 01/04/23 01/04/23 Range/Units 08:45 08:45 08:49 WBC 7.4 (4.8-10.8) X10*3/uL RBC 3.49 L (4.60-5.80) X10*6/uL Hgb 11.3 L (14.0-18.0) g/dl Hct 33.5 L (42.0-52.0) % MCV 96.0 (80.0-98.0) fL MCH 32.4 (27.0-33.0) pg MCHC 33.7 (31.0-36.0) g/dl RDW 14.9 (11.0-16.0) % Plt Count 116 L (160-400) X10*3/uL MPV 10.0 (9.4-12.4) fL Immature Gran % (Auto) 1.3 H (0.0-0.4) % Neut % (Auto) 77.0 H (45-73) % Lymph % (Auto) 11.7 L (20-40) % [place] % (Auto) 9.3 (2-11) % Eos % (Auto) 0.4 (0-4) % Baso % (Auto) 0.3 (0-2) % Lymph # (Auto) 0.9 L (1.2-4.9) X10*3/uL [place] # (Auto) 0.7 (0.1-1.2) X10*3/uL Eos # (Auto) 0.0 (0.0-0.4) X10*3/uL Baso # (Auto) 0.0 (0.0-0.2) X10*3/uL Abs Immat Gran (auto) 0.10 H (0.00-0.03) X10*3/uL Absolute Neuts (auto) 5.7 (2.0-8.3) x10*3/uL Absolute Nucleated RBC 0.000 (0.0-0.012) X10*3/uL Nucleated RBC % (auto) 0.0 (0.0-0.2) /100WBC PT 17.7 H (10.0-13.1) SEC INR 1.5 H (0.9-1.1) APTT 33.2 (26.0-36.4) SEC Sodium 135 (135-145) mmol/L Potassium 4.8 (3.3-5.1) mmol/L Chloride 101 (96-108) mmol/L Carbon Dioxide 25 (22-29) mmol/L Anion Gap 14 (12-20) BUN 29 H (9-16) mg/dL Creatinine 1.29 (0.5-1.4) mg/dL Estim Creat Clear Calc 42.8 Estimated GFR 53 Random Glucose 290 H (60-115) mg/dL Calcium 8.7 (8.4-10.2) mg/dL Discharge Plan Discharge Clinical Impression: Hematuria, Acute retention of urine Patient Disposition: Admitted As Inpatient
[2023-01-04 07:39] VITALS: BP 161/78; PULSE 79; RESP 18; TEMP 36.2; O2SAT 98; BMI 28.2
--- NOTE | 2023-01-04 08:14 | PC.NURSE ---
Mena inserted, approx 400ml bloody urine output
--- NOTE | 2023-01-04 08:47 | PC.NURSE ---
Upon standing, pt passed multiple clots onto the floor. 3 way irrigation started, pt tolerated well. Immediate return of gross hematuria, at this time urine has begun to clear. IV established, labs drawn and sent.
[2023-01-04 08:54] LABS: MANUAL DIFF FLAG NO
[2023-01-04 08:55] LABS: Basophils Percent Auto 0.3 % (0-2); Eosinophils Percent Auto 0.4 % (0-4); Hematocrit 33.5 % (42.0-52.0); Hemoglobin 11.3 g/dl (14.0-18.0); Imm Gran Pct Auto 1.3 % (0.0-0.4); Lymphocytes Absolute Auto 0.9 X10*3/uL (1.2-4.9); Lymphocytes Percent Auto 11.7 % (20-40); Mean Corpuscular HGB Conc 33.7 g/dl (31.0-36.0); Mean Corpuscular Hemoglobin 32.4 pg (27.0-33.0); Monocytes Absolute Auto 0.7 X10*3/uL (0.1-1.2); Monocytes Percent Auto 9.3 % (2-11); Neutrophils Absolute Auto 5.7 x10*3/uL (2.0-8.3); Platelet Count 116 X10*3/uL (160-400); Red Blood Count 3.49 X10*6/uL (4.60-5.80); Red Cell Distribution Width 14.9 % (11.0-16.0); White Blood Count 7.4 X10*3/uL (4.8-10.8)
[2023-01-04 09:00] LABS: INTERNATIONAL NORM RATIO 1.5 (0.9-1.1); Prothrombin Time 17.7 SEC (10.0-13.1)
[2023-01-04 09:03] LABS: Partial Thromboplastin Time 33.2 SEC (26.0-36.4)
[2023-01-04 09:11] LABS: Anion Gap 14 (12-20); Blood Urea Nitrogen 29 mg/dL (9-16); Calcium 8.7 mg/dL (8.4-10.2); Carbon Dioxide 25 mmol/L (22-29); Chloride 101 mmol/L (96-108); Creatinine Clr Calc Pharmacy 42.8; Estimated Glomerular Filt Rate 53; Glucose Random 290 mg/dL (60-115); Potassium 4.8 mmol/L (3.3-5.1); Sodium 135 mmol/L (135-145)
--- NOTE | 2023-01-04 11:20 | PC.NURSE ---
First bag of cbi completed, pt still passing clots at this time with red output. 4000ml output
[2023-01-04 11:27] VITALS: BP 107/53; PULSE 69; RESP 12; O2SAT 97
--- NOTE | 2023-01-04 12:11 | P.HPHOSP_ITS ---
History of Present Illness Date of Service: 01/04/23 <Clau Franco NP - Last Filed: 01/05/23 12:06> Chief Complaint: urinary retension <Clau Franco NP - Last Filed: 01/05/23 12:06> 87 year old man presenting with inability to urinate for 2 days after removing his bird catheter that he thought was clogged . He reported bloating, pain and abdominal distension. He denied nausea, vomiting, fever, chills. CBI placed in the ED with noted hematuria draining. Stable HH and vital signs. He will be admitted for further management and treatment of urinary retention <Clau Franco NP - Last Filed: 01/05/23 12:06> Review of Systems Review of Systems: Denies any recent fever chills or decrease in appetite respiratory denies any shortness of breath coverage production cardiovascular Denied chest pain gastrointestinal denies any dysphagia abdominal pain nausea vomiting or diarrhea genitourinary denies any dysuria frequency or hematuria musculoskeletal denies any joint pain or swelling neuropsych denies any weakness or seizures all other systems reviewed are negative <Clau Franco NP - Last Filed: 01/05/23 12:06> FORMERLY [facility], 1928–1983 Medical History: Medical History (HFpEF) heart failure with preserved ejection fraction Bifascicular block CAD (coronary artery disease) Cardiac pacemaker in situ (~12/2020) CHF exacerbation COVID-19 vaccine series completed Diabetes Hepatorenal syndrome History of cardioversion History of ST elevation myocardial infarction (STEMI) HLD (hyperlipidemia) HTN (hypertension) Hx of Lyme disease Myocardial infarct, old Pancytopenia Persistent atrial fibrillation Prostate CA PVC (premature ventricular contraction) Symptomatic bradycardia Thrombocytopenia Tubular adenoma of colon Ventricular bigeminy <Clau Franco NP - Last Filed: 01/05/23 12:06> Surgical History: Surgical History History of cardiac pacemaker (~12/2020) History of cervical spinal surgery History of colonoscopy History of left inguinal hernia repair History of lumbar discectomy History of radical prostatectomy History of total right knee replacement (TKR) <Clau Franco NP - Last Filed: 01/05/23 12:06> Social History: Social History Household Members: Spouse Housing: House Are you a primary spiritual care coordinator to a significant other at home: No Do you presently have visiting nurse or other home services: Yes Alcohol intake: never Patient Tobacco Use Status: Former Tobacco user Quit Date: age 22's Tobacco use type: Cigarette Years Smoked: 10 Use of substances other than those prescribed or required for medical reasons: No Currently Displaying Signs/Symptoms of Drug Intoxication Withdrawal: No Have you been hit, kicked, punched, or otherwise hurt by someone within the past year? If so, by whom?: No Do you feel safe in your current relationship?: No Is there a partner from a previous relationship who is making you feel unsafe now?: No Are you made to feel afraid or neglected: No Advance Directives: Yes Advance Directives Information Provided: No Advance Directives on File: No Advance Directives Date on File: 01/04/23 Do you have thoughts of harming others: None Do you have a plan to hurt others: No Plan Recently lost weight without trying: No Poor oral hygiene: No Current occupational status: retired <Clau Franco NP - Last Filed: 01/05/23 12:06> Meds Allergies/Adverse reactions: Allergies Allergy/AdvReac Type Severity Reaction Status Date / Time No Known Allergies Allergy Mild N/A Verified 11/10/22 14:50 <Clau Franco NP - Last Filed: 01/05/23 12:06> Active Medications: Current Medications Acetaminophen (Acetaminophen 325 Mg Tablet) 650 mg PO Q6H PRN PRN Reason: Pain, Mild (Pain Scale 1-3) Ondansetron HCl (Ondansetron Hcl 4 Mg/2 Ml Vial) 4 mg IVPUSH Q8H PRN PRN Reason: Nausea and Vomiting Pharmacy Consult (Consult Rx Perform Med Rec) 1 each MISCELLANE ONCE PRN PRN Reason: Consult order Sodium Chloride (0.9 % Sodium Chloride Flush 3 Ml Syringe) 3 ml IVFLUSH QSHIFT [facility] <Clau Franco NP - Last Filed: 01/05/23 12:06> Home medications: Home Medications Medication Instructions Recorded Confirmed Last Taken Type fluticasone propionate 50 2 spray intranasal DAILY PRN 12/14/20 01/04/23 02/20/21 08:00 History mcg/actuation nasal Allergy Symptoms spray,suspension insulin aspart U-100 100 unit/mL 1 sliding scale dose subcut 12/14/20 01/04/23 Unknown History subcutaneous solution (Novolog USEASDIRECTD U-100 Insulin aspart) ipratropium 20 mcg-albuterol 100 1 puff inhalation QID 12/14/20 01/04/23 10/24/22 07:00 History mcg/actuation mist for inhalation (Combivent Respimat) multivitamin 1 tab PO DAILY 12/14/20 01/04/23 Unknown History atorvastatin 40 mg tablet 40 mg PO BEDTIME 06/13/21 01/04/23 Unknown History budesonide-formoterol HFA 80 1 inh inhalation DAILY 06/13/21 01/04/23 10/24/22 07:00 History mcg-4.5 mcg/actuation aerosol inhaler (Symbicort) losartan 25 mg tablet 25 mg PO DAILY 06/13/21 01/04/23 Unknown History pregabalin 150 mg capsule 150 mg PO QID PRN Pain, Moderate 06/13/21 01/04/23 Unknown History cholecalciferol (vitamin D3) 25 25 mcg PO DAILY 12/19/21 01/04/23 Unknown History mcg (1,000 unit) capsule vitamin B complex (B 1 tab PO DAILY 12/19/21 01/04/23 Unknown History Complex-Vitamin B12 tablet) insulin degludec 100 unit/mL (3 70 unit subcut DAILY 10/20/22 01/04/23 10/24/22 07:00 History mL) subcutaneous pen (Tresiba 30 units FlexTouch U-100 insulin) ciprofloxacin HCl 500 mg tablet 500 mg PO BID 01/04/23 01/04/23 Unknown History gabapentin 100 mg capsule 100 mg PO TID 01/04/23 01/04/23 Unknown History metoprolol succinate 25 mg 25 mg PO DAILY 01/04/23 01/04/23 Unknown History tablet,extended release 24 hr oxycodone 5 mg tablet 5 mg PO QID PRN Pain 01/04/23 01/04/23 Unknown History <Clau Franco NP - Last Filed: 01/05/23 12:06> Physical Exam Vital Signs and Narrative: Vital Signs: Last Vital Signs Temp 97.2 F 01/04/23 07:39 Pulse 69 01/04/23 11:27 Resp 12 01/04/23 11:27 BP 107/53 L 01/04/23 11:27 Pulse Ox 97 01/04/23 11:27 O2 Del Method Room Air 01/04/23 11:27 BMI result Body Mass Index 28.2 <Clau Franco NP - Last Filed: 01/05/23 12:06> Appearing in no acute distress head is normocephalic atraumatic eyes pupils are PERRLA sclera is anicteric mouth throat mucous membranes are intact and moist neck is supple no lymphadenopathy, no JVD noted lung sounds are clear to auscultation heart regular rate rhythm, clear S1, S2 positive bowel sounds, abdomen is soft, nontender neuro patient is alert x3, no focal deficits <Clau Franco NP - Last Filed: 01/05/23 12:06> Results Labs CBC and Chem 7: 01/04/23 08:45 01/04/23 08:45 <Clau Franco NP - Last Filed: 01/05/23 12:06> Labs: Laboratory Results - last 24 hr 01/04/23 01/04/23 01/04/23 08:45 08:45 08:49 MCV 96.0 MCH 32.4 MCHC 33.7 RDW 14.9 Plt Count 116 L MPV 10.0 Immature Gran % (Auto) 1.3 H Neut % (Auto) 77.0 H Lymph % (Auto) 11.7 L [place] % (Auto) 9.3 Eos % (Auto) 0.4 Baso % (Auto) 0.3 Lymph # (Auto) 0.9 L [place] # (Auto) 0.7 Eos # (Auto) 0.0 Baso # (Auto) 0.0 Abs Immat Gran (auto) 0.10 H Absolute Neuts (auto) 5.7 Absolute Nucleated RBC 0.000 Nucleated RBC % (auto) 0.0 PT 17.7 H INR 1.5 H APTT 33.2 Anion Gap 14 Estim Creat Clear Calc 42.8 Estimated GFR 53 Random Glucose 290 H Calcium 8.7 <Clau Franco NP - Last Filed: 01/05/23 12:06> Assessment and Plan (1) Blood clot in bladder: Status: Acute <Clau Franco NP - Last Filed: 01/05/23 12:06> 87 year old man admitted with urinary retention after taking his bird catheter out 2 days ago Urinary retention bird catheter placed and CBI started, now clotted off and unable to irrigate or flush discussed with urology, will be in to assess, bird cath removed with 3 clots plan to re-insert bird cath (by urologist) and restart CBI pain management Hypertension stable blood pressure continue home medications HFpEF No acute heart failure continue home medications Persistant afib continue Hold eliquis for now DVT prophylaxis with SCD boots in light of hematuria Attending Dr. Mccray Full code 2 midnights for treatment of urinary retention requiring CBI and close monitoring <Clau Franco NP - Last Filed: 01/05/23 12:06> 87 year old man admitted with urinary retention after taking his bird catheter out 2 days ago Urinary retention bird catheter placed and CBI started, now clotted off and unable to irrigate or flush discussed with urology, will be in to assess, bird cath removed with 3 clots plan to re-insert bird cath (by urologist) and restart CBI pain management Hypertension stable blood pressure continue home medications HFpEF No acute heart failure continue home medications Persistant afib continue Hold eliquis for now DVT prophylaxis with SCD boots in light of hematuria Attending Dr. Mccray Full code 2 midnights for treatment of urinary retention requiring CBI and close mary toring Addendum to history and physical by the advanced practice provider, Clau Franco I interviewed and examined the patient. I discussed their presentation and management with the PRANEETH. 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 Unable to urinate x2 after removing clogged Bird catheter. Bird placed in ED then CBI started due to hematuria but then Bird became blocked. Admitted to [facility]. Urology called and 22Fr catheter placed and CBI re-initiated. <Miguel Angel Mccray MD - Last Filed: 01/05/23 10:41> Time Spent With Patient Time: Total time managing care of this patient today ____ minutes. <Clau Franco NP - Last Filed: 01/05/23 12:06> Quality Stroke Does the patient have a stroke diagnosis?: No <Miguel Angel Mccray MD - Last Filed: 01/05/23 10:41> VTE Prior VTE?: No <Miguel Angel Mccray MD - Last Filed: 01/05/23 10:41> VTE Risk Level:: Medical - moderate - high <Clau Franco NP - Last Filed: 01/05/23 12:06> VTE Device Contraindication: N/A - Device Ordered <Clau Franco NP - Last Filed: 01/05/23 12:06> VTE Drug Contraindication: Treatment Not Indicated <Clau Franco NP - Last Filed: 01/05/23 12:06>
--- NOTE | 2023-01-04 12:37 | PHA.MEDREC ---
Pharmacy Consult ? Medication Reconciliation Pharmacy has completed the medication reconciliation. spoke with patient. Not a good historian. Used claim history to support reconciliation.
--- NOTE | 2023-01-04 13:02 | PC.NURSE ---
Pt manually irrigated multiple times, moderate sized clots removed during this.
[2023-01-04] MEDS: Morphine Sulfate 4 MG/ML CARTRIDGE 3 MG IVPUSH (14:19)
--- NOTE | 2023-01-04 14:28 | PC.NURSE ---
Noted, Admission, [place] noted BLE, +2.
--- NOTE | 2023-01-04 14:33 | PC.NURSE ---
Telephone order to D/C Three way Cath, CBI, awiating for Urology to come see patient.
--- NOTE | 2023-01-04 14:34 | PC.NURSE ---
Patient up from the ED, yelling in pain, VETERINARY SURGERY TECHNOLOGIST notified, CBI not irrigating and blocked, VETERINARY SURGERY TECHNOLOGIST notify urology to see patient at bedside. Morphine 3mg given now. Instructed to take Mena out, tolerated removal, three clots noted, approx 1.3 cm in width. Expressing relief with pain medications.
[2023-01-04] MEDS: Gabapentin 100 MG CAPSULE PO ×2 (14:50→20:32)
[2023-01-04] MEDS: oxyCODONE HCl Immed Release 5 MG TABLET PO (14:50)
--- NOTE | 2023-01-04 15:18 | PC.NURSE ---
Pt has passed 5 clots thus far.
--- NOTE | 2023-01-04 15:29 | PC.NURSE ---
Pt in bed with eyes closed at the moment, comfortable, sleeping. RR 16
--- NOTE | 2023-01-04 16:25 | P.CNUR_ITS ---
History of Present Illness Consult details Consult date: 01/04/23 Narrative: 87 year old man h/o prostae cancer, s/p radical prostatectomy, states he has had intractible urinary incontinence, with trial of a penile clamp and botox with persistent leakage, renteria was then placed, he is presenting with inability to urinate for 2 days after removing his renteria catheter that he thought was clogged . He reported bloating, pain and abdominal distension. He denied nausea, vomiting, fever, chills. CBI placed in the ED with noted hematuria draining. Stable HH and vital signs. CBI not running properly on the floor. Urology called. Review of chart Abd floyd 05/29/22 - ?Bilateral peripelvic renal cyst and upper pole simple left renal cyst. Review of Systems Review of Systems: 10 point ROS negative other then stated in HPI PMFSH Past Medical History Medical History (HFpEF) heart failure with preserved ejection fraction Bifascicular block CAD (coronary artery disease) Cardiac pacemaker in situ (~12/2020) CHF exacerbation COVID-19 vaccine series completed Diabetes Hepatorenal syndrome History of cardioversion History of ST elevation myocardial infarction (STEMI) HLD (hyperlipidemia) HTN (hypertension) Hx of Lyme disease Myocardial infarct, old Pancytopenia Persistent atrial fibrillation Prostate CA PVC (premature ventricular contraction) Symptomatic bradycardia Thrombocytopenia Tubular adenoma of colon Ventricular bigeminy Surgical History Surgical History History of cardiac pacemaker (~12/2020) History of cervical spinal surgery History of colonoscopy History of left inguinal hernia repair History of lumbar discectomy History of radical prostatectomy History of total right knee replacement (TKR) Social History Social History Household Members: Spouse Housing: House Are you a primary child care education coordinator to a significant other at home: No Do you presently have visiting nurse or other home services: Yes Alcohol intake: never Patient Tobacco Use Status: Former Tobacco user Quit Date: age 22's Tobacco use type: Cigarette Years Smoked: 10 Use of substances other than those prescribed or required for medical reasons: No Currently Displaying Signs/Symptoms of Drug Intoxication Withdrawal: No Have you been hit, kicked, punched, or otherwise hurt by someone within the past year? If so, by whom?: No Do you feel safe in your current relationship?: No Is there a partner from a previous relationship who is making you feel unsafe now?: No Are you made to feel afraid or neglected: No Advance Directives: Yes Advance Directives Information Provided: No Advance Directives on File: No Advance Directives Date on File: 01/04/23 Do you have thoughts of harming others: None Do you have a plan to hurt others: No Plan Recently lost weight without trying: No Poor oral hygiene: No Current occupational status: retired [employer] Allergies Allergy/AdvReac Type Severity Reaction Status Date / Time No Known Allergies Allergy Mild N/A Verified 11/10/22 14:50 Active Medications: Current Medications Acetaminophen (Acetaminophen 325 Mg Tablet) 650 mg PO Q6H PRN PRN Reason: Pain, Mild (Pain Scale 1-3) Albuterol/Ipratropium (Albuterol/Iprat 2.5/0.5mg 3 Ml Ampul.Neb) 3 ml INHALE RQ6H [facility] Atorvastatin Calcium (Atorvastatin Calcium 40 Mg Tablet) 40 mg PO BEDTIME [facility] Dronedarone (Dronedarone Hcl 400 Mg Tablet) 400 mg PO BID [facility] Fluticasone Propionate (Fluticasone Propionate Nasal 16 Gm [place]) 2 spray NOSTRIL-B DAILY PRN PRN Reason: Allergy Symptoms Fluticasone/Vilanterol (Fluticasone/Vilanterol 100/25 Blst.W.Dev) 1 puff INHALE RDAILY [facility] Furosemide (Furosemide 20 Mg Tablet) 10 mg PO DAILY PRN; Protocol PRN Reason: edema Gabapentin (Gabapentin 100 Mg Capsule) 100 mg PO TID [facility] Last Admin: 01/04/23 14:50 Dose: 100 mg Insulin Glargine (Insulin Glargine,Hum.Rec.Anlog 100 Unit/Ml 10 Ml Vial) 49 unit SUBCUT DAILY [facility] Isosorbide Mononitrate (Isosorbide Mononitrate 30 Mg Tab.Er.24h) 30 mg PO DAILY [facility]; Protocol Losartan Potassium (Losartan Potassium 25 Mg Tablet) 25 mg PO DAILY [facility]; Protocol Metoprolol Succinate (Metoprolol Succinate Er 25 Mg Tab.Er.24h) 25 mg PO DAILY [facility]; Protocol Morphine Sulfate (Morphine Sulfate 2 Mg/Ml Cartridge) 2 mg IVPUSH Q3H PRN; Protocol PRN Reason: Pain, Mild (Pain Scale 1-3) Multivitamins/Vitamin C (Multivitamin Tablet) 1 tab PO DAILY [facility] Multivitamins/Vitamin C (Multivitamin Tablet) 1 tab PO DAILY [facility] Ondansetron HCl (Ondansetron Hcl 4 Mg/2 Ml Vial) 4 mg IVPUSH Q8H PRN PRN Reason: Nausea and Vomiting Oxycodone HCl (Oxycodone Hcl Immed Release 5 Mg Tablet) 5 mg PO Q4H PRN PRN Reason: Pain, Mild (Pain Scale 1-3) Last Admin: 01/04/23 14:50 Dose: 5 mg Pharmacy Consult (Consult Rx Perform Med Rec) 1 each MISCELLANE ONCE PRN PRN Reason: Consult order Pregabalin (Pregabalin 150 Mg Capsule) 150 mg PO QID PRN PRN Reason: Pain, Moderate Sodium Chloride (0.9 % Sodium Chloride Flush 3 Ml Syringe) 3 ml IVFLUSH QSHIFT [facility] Last Admin: 01/04/23 14:38 Dose: Not Given Vitamin D (Cholecalciferol (Vitamin D3) 25 Mcg Tablet) 25 mcg PO DAILY [facility] Home Medications Medication Instructions Recorded Confirmed Last Taken Type fluticasone propionate 50 2 spray intranasal DAILY PRN 12/14/20 01/04/23 06 08:00 History mcg/actuation nasal Allergy Symptoms spray,suspension insulin aspart U-100 100 unit/mL 1 sliding scale dose subcut 12/14/20 01/04/23 Unknown History subcutaneous solution (Novolog USEASDIRECTD U-100 Insulin aspart) ipratropium 20 mcg-albuterol 100 1 puff inhalation QID 12/14/20 01/04/23 10/24/22 07:00 History mcg/actuation mist for inhalation (Combivent Respimat) multivitamin 1 tab PO DAILY 12/14/20 01/04/23 Unknown History atorvastatin 40 mg tablet 40 mg PO BEDTIME 06/13/21 01/04/23 Unknown History budesonide-formoterol HFA 80 1 inh inhalation DAILY 06/13/21 01/04/23 10/24/22 07:00 History mcg-4.5 mcg/actuation aerosol inhaler (Symbicort) losartan 25 mg tablet 25 mg PO DAILY 06/13/21 01/04/23 Unknown History pregabalin 150 mg capsule 150 mg PO QID PRN Pain, Moderate 06/13/21 01/04/23 Unknown History cholecalciferol (vitamin D3) 25 25 mcg PO DAILY 12/19/21 01/04/23 Unknown History mcg (1,000 unit) capsule vitamin B complex (B 1 tab PO DAILY 12/19/21 01/04/23 Unknown History Complex-Vitamin B12 tablet) insulin degludec 100 unit/mL (3 70 unit subcut DAILY 10/20/22 01/04/23 10/24/22 07:00 History mL) subcutaneous pen (Tresiba 30 units FlexTouch U-100 insulin) ciprofloxacin HCl 500 mg tablet 500 mg PO BID 01/04/23 01/04/23 Unknown History gabapentin 100 mg capsule 100 mg PO TID 01/04/23 01/04/23 Unknown History metoprolol succinate 25 mg 25 mg PO DAILY 01/04/23 01/04/23 Unknown History tablet,extended release 24 hr oxycodone 5 mg tablet 5 mg PO QID PRN Pain 01/04/23 01/04/23 Unknown History Physical Exam Vital Signs: Vital Signs: Last Vital Signs Temp 97.2 F 01/04/23 07:39 Pulse 69 01/04/23 11:27 Resp 12 01/04/23 11:27 BP 107/53 L 01/04/23 11:27 Pulse Ox 97 01/04/23 11:27 O2 Del Method Room Air 01/04/23 11:27 BMI result Body Mass Index 28.2 Const: General: no acute distress and well developed Orientation/consciousness: patient oriented x3 HEENT: Head: Yes normocephalic and Yes atraumatic Eyes: Conjunctivae: conjunctivae normal Neck: Neck: Yes normal visual inspection Chest: Chest palpation & inspection: normal inspection of the chest Resp: Effort & Inspection: normal respiratory effort Cardio: Rate: regular rate GI: Inspection: Yes normal to inspection : Penis: normal penis Scrotum: scrotum normal Skin: General skin exam: no rashes or lesions noted Neuro: General: patient oriented x3 Extrem: General: No pedal edema Psych: Appearance: grossly normal Affect: normal affect Results Labs 01/04/23 08:45 01/04/23 08:45 Labs: Abnormal lab results 01/04/23 01/04/23 01/04/23 Range/Units 08:45 08:45 08:49 RBC 3.49 L (4.60-5.80) X10*6/uL Hgb 11.3 L (14.0-18.0) g/dl Hct 33.5 L (42.0-52.0) % Plt Count 116 L (160-400) X10*3/uL Immature Gran % (Auto) 1.3 H (0.0-0.4) % Neut % (Auto) 77.0 H (45-73) % Lymph % (Auto) 11.7 L (20-40) % Lymph # (Auto) 0.9 L (1.2-4.9) X10*3/uL Abs Immat Gran (auto) 0.10 H (0.00-0.03) X10*3/uL PT 17.7 H (10.0-13.1) SEC INR 1.5 H (0.9-1.1) BUN 29 H (9-16) mg/dL Random Glucose 290 H (60-115) mg/dL Short CBC 01/04/23 Range/Units 08:45 WBC 7.4 (4.8-10.8) X10*3/uL Hgb 11.3 L (14.0-18.0) g/dl Hct 33.5 L (42.0-52.0) % Plt Count 116 L (160-400) X10*3/uL BMP 01/04/23 08:45 Sodium 135 Potassium 4.8 Chloride 101 Carbon Dioxide 25 BUN 29 H Creatinine 1.29 Calcium 8.7 Imaging Abdominal ultrasound report/results: report reviewed Additional studies: Date of Service: 05/29/22 US ABDOMEN COMPLETE CLINICAL INFORMATION: Splenomegaly. Pancytopenia. COMPARISON: CT abdomen and pelvis 05/10/2021. TECHNIQUE: Real-time imaging of the abdominal viscera. FINDINGS: PANCREAS: Normal. ABDOMINAL AORTA: The proximal, mid, and distal segments are normal in caliber. INFERIOR VENA CAVA: Visualized portions are normal. LIVER: The liver is limited in evaluation due to overlying gas and patient's body habitus. The liver is normal in size. The liver contour is normal. The liver is diffusely increased in echogenicity and heterogeneous. No focal hepatic lesion. There is no intrahepatic biliary duct dilatation seen. GALLBLADDER: The gallbladder is physiologically distended. Multiple mobile gallstones are present. No evidence of gallbladder wall thickening or pericholecystic fluid. Gallbladder wall thickness is 0.25 cm. COMMON BILE DUCT: Normal in caliber measuring 0.23 cm in diameter. RIGHT KIDNEY:? No hydronephrosis. No renal calculi or focal parenchymal lesions. The kidney measures 11.1 cm in maximum dimension. There is a peripelvic cyst measuring 2.0 x 1.2 x 0.83 cm LEFT KIDNEY: There is anechoic cyst in the upper pole measuring 5.3 x 3.5 x 4.6 cm. Also visualized is a parapelvic cyst midpole measuring 3.0 x 1.9 x 2.0 cm. No hydronephrosis or renal calculi. The kidney measures 12.8 cm in maximum dimension. SPLEEN: Normal. The spleen measures 9.6 cm in maximum dimension. FREE FLUID: None. IMPRESSION: Very heterogeneous and echogenic liver without focal lesion, however, limited in evaluation due to body habitus. ? Bilateral peripelvic renal cyst and upper pole simple left renal cyst. Assessment and Plan (1) Acute retention of urine: Status: Acute (2) Gross hematuria: Status: Acute (3) History of prostate cancer: Status: Acute (4) Blood clot in bladder: Status: Acute Plan I attempted to place 24 fr hematuria catheter but was too large, [address]ter[address] placed without difficulty, I irrigated out several clots and restarted CBI Cont CBI Renal US. Will Follow Time Spent With Patient Time: Total time managing care of this patient today ____ minutes. Procedures Date of Service Date of Service: 01/04/23 Catheter Insertion (Urinary) Date of insertion: 01/04/23 Time of insertion: 17:06 Reason for placing: Other (hematuria) Catheter type/location: 3-way Urethral Size (German): 22 Catheter balloon size (mL): 30 Catheter balloon amount: 25 Results: successfully catheterized-immediate flow Procedure performed: without complications Comment: Bladder irrigation 500 mL. Irrigated out several clots
[2023-01-04] MEDS: Lidocaine HCl 2 % Urojet 10 ML JEL.PF.APP TOPICAL ×2 (16:33)
--- NOTE | 2023-01-04 17:34 | PC.NURSE ---
Pt seen by Urology, MD Cm, manual flush, produced many clots, CBI continued, Urine output like pink compared to dark red. Pt states he is much better now.
[2023-01-04 19:12] VITALS: PULSE 71; RESP 18; O2SAT 98
[2023-01-04] MEDS: Albuterol/Iprat 2.5/0.5MG 3 ML AMPUL.NEB INHALE (19:12)
[2023-01-04 19:39] VITALS: BP 141/66; PULSE 86; RESP 15; TEMP 36.4; O2SAT 93
[2023-01-04] MEDS: Dronedarone HCl 400 MG TABLET PO (20:32)
[2023-01-04] MEDS: Atorvastatin Calcium 40 MG TABLET PO (20:32)
[2023-01-05 03:55] VITALS: BP 118/54; PULSE 70; RESP 17; TEMP 36.2; O2SAT 95
[2023-01-05 06:43] LABS: MANUAL DIFF FLAG NO
[2023-01-05 06:52] LABS: Basophils Percent Auto 0.3 % (0-2); Eosinophils Absolute Auto 0.1 X10*3/uL (0.0-0.4); Eosinophils Percent Auto 1.1 % (0-4); Hematocrit 28.1 % (42.0-52.0); Hemoglobin 9.4 g/dl (14.0-18.0); Imm Gran Abs Auto 0.09 X10*3/uL (0.00-0.03); Imm Gran Pct Auto 1.4 % (0.0-0.4); Lymphocytes Absolute Auto 1.3 X10*3/uL (1.2-4.9); Lymphocytes Percent Auto 19.9 % (20-40); Mean Corpuscular HGB Conc 33.5 g/dl (31.0-36.0); Mean Corpuscular Hemoglobin 32.3 pg (27.0-33.0); Mean Corpuscular Volume 96.6 fL (80.0-98.0); Mean Platelet Volume 10.5 fL (9.4-12.4); Monocytes Absolute Auto 0.7 X10*3/uL (0.1-1.2); Monocytes Percent Auto 10.1 % (2-11); Neutrophils Absolute Auto 4.5 x10*3/uL (2.0-8.3); Neutrophils Percent Auto 67.2 % (45-73); Platelet Count 113 X10*3/uL (160-400); Red Blood Count 2.91 X10*6/uL (4.60-5.80); Red Cell Distribution Width 15.1 % (11.0-16.0); White Blood Count 6.6 X10*3/uL (4.8-10.8)
[2023-01-05 07:28] LABS: Anion Gap 10 (12-20); Blood Urea Nitrogen 24 mg/dL (9-16); Calcium 8.4 mg/dL (8.4-10.2); Carbon Dioxide 27 mmol/L (22-29); Chloride 105 mmol/L (96-108); Creatinine Clr Calc Pharmacy 52.6; Estimated Glomerular Filt Rate > 60; Glucose Random 227 mg/dL (60-115); Potassium 4.4 mmol/L (3.3-5.1); Sodium 138 mmol/L (135-145)
[2023-01-05 08:00] VITALS: BP 132/61; PULSE 69; RESP 18; TEMP 36.1; O2SAT 97
[2023-01-05 08:28] LABS: Glucose, Whole Blood 206 mg/dL (60-115)
[2023-01-05] MEDS: Insulin Glargine,Hum.rec.anlog 100 UNIT/ML 10 ML VIAL 49 UNIT SUBCUT (08:32)
[2023-01-05] MEDS: 0.9 % Sodium Chloride Flush 3 ML SYRINGE IVFLUSH ×3 (08:32→20:27)
[2023-01-05] MEDS: Cholecalciferol (Vitamin D3) 25 MCG TABLET PO (08:33)
[2023-01-05] MEDS: Gabapentin 100 MG CAPSULE PO ×3 (08:33→20:27)
[2023-01-05] MEDS: Losartan Potassium 25 MG TABLET PO (08:33)
[2023-01-05] MEDS: Isosorbide Mononitrate 30 MG TAB.ER.24H PO (08:33)
[2023-01-05] MEDS: Dronedarone HCl 400 MG TABLET PO ×2 (08:33→20:27)
[2023-01-05] MEDS: Metoprolol Succinate ER 25 MG TAB.ER.24H PO (08:33)
[2023-01-05] MEDS: Multivitamin TABLET 1 TAB PO (08:33)
--- NOTE | 2023-01-05 09:51 | P.PNIM_ITS ---
Subjective Subjective Date of Service: 01/05/23 Interval History: Follow up urinary retention mild bladder pain CBI running Physical Exam Vital Signs: Vital Signs: Last Vital Signs Temp 96.9 F 01/05/23 08:00 Pulse 69 01/05/23 08:00 Resp 18 01/05/23 08:00 BP 132/61 01/05/23 08:00 Pulse Ox 97 01/05/23 08:00 O2 Del Method Room Air 01/05/23 08:00 BMI result Body Mass Index 28.2 Appearing in no acute distress lung sounds are clear to auscultation heart regular rate rhythm, clear S1, S2 positive bowel sounds, abdomen is soft, nontender neuro patient is alert x3, no focal deficits CBI with punch colored urine and small clots Objective Data Active Medications Acetaminophen (Acetaminophen 325 Mg Tablet) 650 mg PO Q6H PRN PRN Reason: Pain, Mild (Pain Scale 1-3) Albuterol/Ipratropium (Albuterol/Iprat 2.5/0.5mg 3 Ml Ampul.Neb) 3 ml INHALE RQ6H [facility] Last Admin: 01/05/23 05:02 Dose: Not Given Documented By: STONE Non-Admin Reason: Patient Refused Atorvastatin Calcium (Atorvastatin Calcium 40 Mg Tablet) 40 mg PO BEDTIME [facility] Last Admin: 01/04/23 20:32 Dose: 40 mg Documented By: MARIELENA Dronedarone (Dronedarone Hcl 400 Mg Tablet) 400 mg PO BID [facility] Last Admin: 01/05/23 08:33 Dose: 400 mg Documented By: RICKEY Fluticasone Propionate (Fluticasone Propionate Nasal 16 Gm [place]) 2 spray NOSTRIL-B DAILY PRN PRN Reason: Allergy Symptoms Fluticasone/Vilanterol (Fluticasone/Vilanterol 100/25 Blst.W.Dev) 1 puff INHALE RDAILY [facility] Last Admin: 01/05/23 07:39 Dose: Not Given Documented By: DEANNE Non-Admin Reason: Patient Asleep Furosemide (Furosemide 20 Mg Tablet) 10 mg PO DAILY PRN; Protocol PRN Reason: edema Gabapentin (Gabapentin 100 Mg Capsule) 100 mg PO TID [facility] Last Admin: 01/05/23 08:33 Dose: 100 mg Documented By: RICKEY Insulin Glargine (Insulin Glargine,Hum.Rec.Anlog 100 Unit/Ml 10 Ml Vial) 49 unit SUBCUT DAILY [facility] Last Admin: 01/05/23 08:32 Dose: 49 unit Documented By: RICKEY Isosorbide Mononitrate (Isosorbide Mononitrate 30 Mg Tab.Er.24h) 30 mg PO DAILY [facility]; Protocol Last Admin: 01/05/23 08:33 Dose: 30 mg Documented By: RICKEY Losartan Potassium (Losartan Potassium 25 Mg Tablet) 25 mg PO DAILY [facility]; Protocol Last Admin: 01/05/23 08:33 Dose: 25 mg Documented By: RICKEY Metoprolol Succinate (Metoprolol Succinate Er 25 Mg Tab.Er.24h) 25 mg PO DAILY [facility]; Protocol Last Admin: 01/05/23 08:33 Dose: 25 mg Documented By: RICKEY Morphine Sulfate (Morphine Sulfate 2 Mg/Ml Cartridge) 2 mg IVPUSH Q3H PRN; Protocol PRN Reason: Pain, Mild (Pain Scale 1-3) Multivitamins/Vitamin C (Multivitamin Tablet) 1 tab PO DAILY [facility] Last Admin: 01/05/23 08:33 Dose: 1 tab Documented By: RICKEY Multivitamins/Vitamin C (Multivitamin Tablet) 1 tab PO DAILY [facility] Last Admin: 01/05/23 08:31 Dose: Not Given Documented By: RICKEY Non-Admin Reason: Duplicate Order Ondansetron HCl (Ondansetron Hcl 4 Mg/2 Ml Vial) 4 mg IVPUSH Q8H PRN PRN Reason: Nausea and Vomiting Oxycodone HCl (Oxycodone Hcl Immed Release 5 Mg Tablet) 5 mg PO Q4H PRN PRN Reason: Pain, Mild (Pain Scale 1-3) Last Admin: 01/04/23 14:50 Dose: 5 mg Documented By: MAGAN Pharmacy Consult (Consult Rx Perform Med Rec) 1 each MISCELLANE ONCE PRN PRN Reason: Consult order Pregabalin (Pregabalin 150 Mg Capsule) 150 mg PO QID PRN PRN Reason: Pain, Moderate Sodium Chloride (0.9 % Sodium Chloride Flush 3 Ml Syringe) 3 ml IVFLUSH QSHIFT [facility] Last Admin: 01/05/23 08:32 Dose: 3 ml Documented By: RICKEY Vitamin D (Cholecalciferol (Vitamin D3) 25 Mcg Tablet) 25 mcg PO DAILY [facility] Last Admin: 01/05/23 08:33 Dose: 25 mcg Documented By: RIKCEY Labs 01/05/23 05:47 01/05/23 05:47 Labs: Laboratory Results - last 24 hr 01/05/23 01/05/23 01/05/23 05:47 05:47 08:24 MCV 96.6 MCH 32.3 MCHC 33.5 RDW 15.1 Plt Count 113 L MPV 10.5 Immature Gran % (Auto) 1.4 H Neut % (Auto) 67.2 Lymph % (Auto) 19.9 L [place] % (Auto) 10.1 Eos % (Auto) 1.1 Baso % (Auto) 0.3 Lymph # (Auto) 1.3 [place] # (Auto) 0.7 Eos # (Auto) 0.1 Baso # (Auto) 0.0 Abs Immat Gran (auto) 0.09 H Absolute Neuts (auto) 4.5 Absolute Nucleated RBC 0.000 Nucleated RBC % (auto) 0.0 Anion Gap 10 L Estim Creat Clear Calc 52.6 Estimated GFR > 60 POC Glucose 206 H Random Glucose 227 H Calcium 8.4 Assessment and Plan (1) Blood clot in bladder: Status: Acute Plan ?87 year old man admitted with urinary retention after taking his renteria catheter out 2 days ago Urinary retention s/p renteria catheter placed and CBI started now clotted off and unable to irrigate or flush, renteria removed and replaced by urology CBI running with removal of small clots, punch colored urine noted mild bladder pain with CBI running renal us pending Hypertension stable blood pressure continue home medications HFpEF No acute heart failure continue home medications Persistant afib continue Hold eliquis for now DVT prophylaxis with SCD boots in light of hematuria Attending Dr. Larkin Full code continue hospital stay for CBI and close follow up of renal function Time Spent With Patient Time: Total time managing care of this patient today ____ minutes. Quality Stroke Does the patient have a stroke diagnosis?: No VTE Prior VTE?: No VTE Risk Level:: Medical - moderate - high VTE Device Contraindication: N/A - Device Ordered VTE Drug Contraindication: Treatment Not Indicated
--- NOTE | 2023-01-05 11:22 | PC.NURSE ---
Pt complaining of bladder pain, CBI noted to not be draining properly, renteria catheter irrigated, 4 clots drained, Pt states he feels much better, CBI draining, will continue to monitor.
--- NOTE | 2023-01-05 12:09 | PM.UROPN ---
Subjective Subjective Date of Service: 01/05/23 Interval history: Jewel is an 87 year old with h/o radical prostatectomy for prostate cancer admitted due to urinary retention and gross hematuria. The patient has been started on CBI. Renal U/S today - results pending. Physical Exam Vital Signs: Vital Signs: Last Vital Signs Temp 96.9 F 01/05/23 08:00 Pulse 69 01/05/23 08:00 Resp 18 01/05/23 08:00 BP 132/61 01/05/23 08:00 Pulse Ox 97 01/05/23 08:00 O2 Del Method Room Air 01/05/23 08:00 BMI result Body Mass Index 28.2 Urology Results Labs 01/05/23 05:47 01/05/23 05:47 Labs: Laboratory Results - last 24 hr 01/05/23 01/05/23 01/05/23 05:47 05:47 08:24 WBC 6.6 RBC 2.91 L Hgb 9.4 L Hct 28.1 L MCV 96.6 MCH 32.3 MCHC 33.5 RDW 15.1 Plt Count 113 L MPV 10.5 Immature Gran % (Auto) 1.4 H Neut % (Auto) 67.2 Lymph % (Auto) 19.9 L [place] % (Auto) 10.1 Eos % (Auto) 1.1 Baso % (Auto) 0.3 Lymph # (Auto) 1.3 [place] # (Auto) 0.7 Eos # (Auto) 0.1 Baso # (Auto) 0.0 Abs Immat Gran (auto) 0.09 H Absolute Neuts (auto) 4.5 Absolute Nucleated RBC 0.000 Nucleated RBC % (auto) 0.0 Sodium 138 Potassium 4.4 Chloride 105 Carbon Dioxide 27 Anion Gap 10 L BUN 24 H Creatinine 1.05 Estim Creat Clear Calc 52.6 Estimated GFR > 60 POC Glucose 206 H Random Glucose 227 H Calcium 8.4 Progress Note: A&P Assessment and plan (1) Blood clot in bladder: Status: Acute (2) History of prostate cancer: Status: Acute (3) Gross hematuria: Status: Acute (4) Acute retention of urine: Status: Acute Plan Continue Continuous bladder irrigation Renal US today final results pending Time Spent With Patient Time: Total time managing care of this patient today ____ minutes. Progress Note: Quality Stroke Does the patient have a stroke diagnosis?: No
--- NOTE | 2023-01-05 13:23 | MHC.CM.PN ---
IMM 01/05/23 Male 87 DX Urinary retention. Patient lives with his . He is independent with ADLS. He uses a cane/walker prn. [facility] is providing wound care and assessment. Vaxxed x3. A copy of his HCP has been requested. DP Home resume [facility] patient will give him a ride home at discharge.
--- NOTE | 2023-01-05 14:48 | MHC.CLN ---
NUTRITION DIET CHANGED TO DIABETIC 2000 KCALS, 2 GRAM SODIUM. HAS HX DM AND TAKES INSULIN.
[2023-01-05 15:13] VITALS: BP 110/55; PULSE 68; RESP 20; TEMP 36.8; O2SAT 95
[2023-01-05 18:54] VITALS: BP 107/53; PULSE 66; RESP 20; TEMP 37; O2SAT 96
[2023-01-05] MEDS: Pregabalin 150 MG CAPSULE PO (20:27)
[2023-01-05] MEDS: Atorvastatin Calcium 40 MG TABLET PO (20:27)
[2023-01-05] MEDS: Artificial Tears 15 ML DROPS 1 DROP EYE-BOTH (20:42)
[2023-01-06 03:59] VITALS: BP 107/60; PULSE 78; RESP 16; TEMP 36.7; O2SAT 95
[2023-01-06 07:21] VITALS: BP 102/58; PULSE 68; RESP 20; TEMP 36.5; O2SAT 97
[2023-01-06 07:33] LABS: Glucose, Whole Blood 225 mg/dL (60-115)
--- NOTE | 2023-01-06 07:36 | PM.UROPN ---
Subjective Subjective Date of Service: 01/06/23 Interval history: Jewel is an 87 year old with h/o radical prostatectomy for prostate cancer admitted due to urinary retention and gross hematuria.? The urine is clear on slow CBI. H/H stable. Physical Exam Vital Signs: Vital Signs: Last Vital Signs Temp 97.7 F 01/06/23 07:21 Pulse 68 01/06/23 07:21 Resp 20 01/06/23 07:21 BP 102/58 L 01/06/23 07:21 Pulse Ox 97 01/06/23 07:21 O2 Del Method Room Air 01/06/23 07:21 BMI result Body Mass Index 28.2 Const: General: healthy appearing, no acute distress and well developed Orientation/consciousness: patient oriented x3 HEENT: Head: Yes normocephalic and Yes atraumatic Eyes: Conjunctivae: conjunctivae normal Neck: Neck: Yes normal visual inspection Chest: Chest palpation & inspection: normal inspection of the chest Resp: Effort & Inspection: normal respiratory effort Cardio: Rate: regular rate GI: Inspection: Yes normal to inspection Palpation (GI): Soft to palpation : Other: urine yellow draining well Skin: General skin exam: no rashes or lesions noted Neuro: General: patient oriented x3 Psych: Appearance: grossly normal Affect: normal affect Urology Results Labs 01/05/23 05:47 01/05/23 05:47 Labs: Laboratory Results - last 24 hr 01/05/23 01/06/23 08:24 07:24 POC Glucose 206 H 225 H Progress Note: A&P Assessment and plan (1) Blood clot in bladder: Status: Acute (2) History of prostate cancer: Status: Acute (3) Gross hematuria: Status: Acute (4) Acute retention of urine: Status: Acute Plan Stop CBI Continue renteria Okay to Restart Eliquis from standpoint as clinically warranted per Hospitalist Pt has a Urologist and should follow up post discharge Time Spent With Patient Time: Total time managing care of this patient today ____ minutes. Progress Note: Quality Stroke Does the patient have a stroke diagnosis?: No
[2023-01-06] MEDS: Fluticasone/Vilanterol 100/25 BLST.W.DEV 1 PUFF INHALE (08:07)
[2023-01-06 08:08] VITALS: PULSE 68; RESP 20
[2023-01-06 08:21] LABS: Hematocrit 25.5 % (42.0-52.0); Hemoglobin 8.5 g/dl (14.0-18.0)
[2023-01-06] MEDS: Insulin Glargine,Hum.rec.anlog 100 UNIT/ML 10 ML VIAL 49 UNIT SUBCUT (08:41)
[2023-01-06] MEDS: 0.9 % Sodium Chloride Flush 3 ML SYRINGE IVFLUSH ×3 (08:41→21:25)
[2023-01-06] MEDS: Gabapentin 100 MG CAPSULE PO ×3 (08:42→21:25)
[2023-01-06] MEDS: Dronedarone HCl 400 MG TABLET PO ×2 (08:42→21:25)
[2023-01-06] MEDS: Isosorbide Mononitrate 30 MG TAB.ER.24H PO (08:42)
[2023-01-06] MEDS: Losartan Potassium 25 MG TABLET PO (08:42)
[2023-01-06] MEDS: Metoprolol Succinate ER 25 MG TAB.ER.24H PO (08:42)
[2023-01-06] MEDS: Multivitamin TABLET 1 TAB PO (08:42)
[2023-01-06] MEDS: Cholecalciferol (Vitamin D3) 25 MCG TABLET PO (08:42)
--- NOTE | 2023-01-06 09:41 | HO.PM.IMPN ---
Subjective Subjective Date of Service: 01/06/23 Interval History: Follow up urinary retention bladder pain gone CBI stopped Physical Exam Vital Signs: Vital Signs: Last Vital Signs Temp 97.7 F 01/06/23 07:21 Pulse 68 01/06/23 08:08 Resp 20 01/06/23 08:08 BP 102/58 L 01/06/23 07:21 Pulse Ox 97 01/06/23 07:21 O2 Del Method Room Air 01/06/23 07:21 BMI result Body Mass Index 28.2 Appearing in no acute distress lung sounds are clear to auscultation heart regular rate rhythm, clear S1, S2 positive bowel sounds, abdomen is soft, nontender neuro patient is alert x3, no focal deficits F/C translucent yellow urine Objective Data Active Medications Acetaminophen (Acetaminophen 325 Mg Tablet) 650 mg PO Q6H PRN PRN Reason: Pain, Mild (Pain Scale 1-3) Albuterol/Ipratropium (Albuterol/Iprat 2.5/0.5mg 3 Ml Ampul.Neb) 3 ml INHALE RQ6H [facility] Last Admin: 01/06/23 05:00 Dose: Not Given Documented By: STONE Non-Admin Reason: Patient Refused Apixaban (Apixaban 5 Mg Tablet) 5 mg PO BID [facility] Artificial Tears (Artificial Tears 15 Ml Drops) 1 drop EYE-BOTH Q4H PRN PRN Reason: Dry Eyes Last Admin: 01/05/23 20:42 Dose: 1 drop Documented By: ROLAN Atorvastatin Calcium (Atorvastatin Calcium 40 Mg Tablet) 40 mg PO BEDTIME [facility] Last Admin: 01/05/23 20:27 Dose: 40 mg Documented By: ROLAN Dronedarone (Dronedarone Hcl 400 Mg Tablet) 400 mg PO BID [facility] Last Admin: 01/06/23 08:42 Dose: 400 mg Documented By: RICKEY Fluticasone Propionate (Fluticasone Propionate Nasal 16 Gm [place]) 2 spray NOSTRIL-B DAILY PRN PRN Reason: Allergy Symptoms Fluticasone/Vilanterol (Fluticasone/Vilanterol 100/25 Blst.W.Dev) 1 puff INHALE RDAILY [facility] Last Admin: 01/06/23 08:07 Dose: 1 puff Documented By: KARY Furosemide (Furosemide 20 Mg Tablet) 10 mg PO DAILY PRN; Protocol PRN Reason: edema Gabapentin (Gabapentin 100 Mg Capsule) 100 mg PO TID [facility] Last Admin: 01/06/23 08:42 Dose: 100 mg Documented By: RICKEY Insulin Glargine (Insulin Glargine,Hum.Rec.Anlog 100 Unit/Ml 10 Ml Vial) 49 unit SUBCUT DAILY [facility] Last Admin: 01/06/23 08:41 Dose: 49 unit Documented By: RICKEY Isosorbide Mononitrate (Isosorbide Mononitrate 30 Mg Tab.Er.24h) 30 mg PO DAILY [facility]; Protocol Last Admin: 01/06/23 08:42 Dose: 30 mg Documented By: RICKEY Losartan Potassium (Losartan Potassium 25 Mg Tablet) 25 mg PO DAILY [facility]; Protocol Last Admin: 01/06/23 08:42 Dose: 25 mg Documented By: RICKEY Metoprolol Succinate (Metoprolol Succinate Er 25 Mg Tab.Er.24h) 25 mg PO DAILY [facility]; Protocol Last Admin: 01/06/23 08:42 Dose: 25 mg Documented By: RICKEY Morphine Sulfate (Morphine Sulfate 2 Mg/Ml Cartridge) 2 mg IVPUSH Q3H PRN; Protocol PRN Reason: Pain, Mild (Pain Scale 1-3) Multivitamins/Vitamin C (Multivitamin Tablet) 1 tab PO DAILY [facility] Last Admin: 01/06/23 08:42 Dose: 1 tab Documented By: RICKEY Multivitamins/Vitamin C (Multivitamin Tablet) 1 tab PO DAILY [facility] Last Admin: 01/06/23 08:41 Dose: Not Given Documented By: RICKEY Non-Admin Reason: Duplicate Order Ondansetron HCl (Ondansetron Hcl 4 Mg/2 Ml Vial) 4 mg IVPUSH Q8H PRN PRN Reason: Nausea and Vomiting Oxycodone HCl (Oxycodone Hcl Immed Release 5 Mg Tablet) 5 mg PO Q4H PRN PRN Reason: Pain, Mild (Pain Scale 1-3) Last Admin: 01/04/23 14:50 Dose: 5 mg Documented By: MAGAN Pharmacy Consult (Consult Rx Perform Med Rec) 1 each MISCELLANE ONCE PRN PRN Reason: Consult order Pregabalin (Pregabalin 150 Mg Capsule) 150 mg PO QID PRN PRN Reason: Pain, Moderate Last Admin: 01/05/23 20:27 Dose: 150 mg Documented By: CASTILM Sodium Chloride (0.9 % Sodium Chloride Flush 3 Ml Syringe) 3 ml IVFLUSH QSHIFT [facility] Last Admin: 01/06/23 08:41 Dose: 3 ml Documented By: RICKEY Vitamin D (Cholecalciferol (Vitamin D3) 25 Mcg Tablet) 25 mcg PO DAILY [facility] Last Admin: 01/06/23 08:42 Dose: 25 mcg Documented By: RICKEY Labs 01/06/23 08:02 01/05/23 05:47 Labs: Laboratory Results - last 24 hr 01/06/23 07:24 POC Glucose 225 H Assessment and Plan (1) Blood clot in bladder: Status: Acute Plan 87 year old man admitted with urinary retention after taking his renteria catheter out 2 days prior to admission Urinary retention s/p renteria catheter and CBI. 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 Larkin Full code DISPO likely home tomorrow after restart of eliquis and complete resolution of hematuria and retention continue hospital stay for tx of hematuria and close follow up of renal function Time Spent With Patient Time: Total time managing care of this patient today ____ minutes. Quality Stroke Does the patient have a stroke diagnosis?: No VTE Prior VTE?: No VTE Risk Level:: Medical - moderate - high VTE Device Contraindication: N/A - Device Ordered VTE Drug Contraindication: Treatment Not Indicated
[2023-01-06 11:23] LABS: Glucose, Whole Blood 353 mg/dL (60-115)
[2023-01-06] MEDS: oxyCODONE HCl Immed Release 5 MG TABLET PO ×2 (12:03→23:29)
[2023-01-06] MEDS: Insulin Lispro 100 UNIT/ML 3 ML VIAL SUBCUT ×3 (12:03→21:24)
[2023-01-06] MEDS: cefTRIAXone sodium 1 GM in 0.9 % Sodium Chloride 50 ML IV (12:07)
[2023-01-06 12:58] LABS: Appearance Urine Turbid; Color Urine Yellow; Glucose Urine UA >=1000 mg/dL (Negative); Leukocyte Esterase Urine Large (3+) (Negative); Nitrite Urine Negative (Negative); PH 5.5 (5.0-9.0); Specific Gravity - Urine >= 1.030 (1.005-1.025); UMIC TRIGGER UACC YES; Urine Blood Large (3+) (Negative); Urine Ketones Negative (Negative); Urine Protein 100 (2+) mg/dL (Neg-Trace)
--- NOTE | 2023-01-06 13:05 | PC.RT ---
Pt has been refusing duoneb tx for two days, pt was very adamant about not taking them. [place] texted MD Clau Franco to d/c scheduled tx and make it PRN. Order hasn't been changed yet.
[2023-01-06 13:10] LABS: Bacteria Urine 1+ (None Seen); Hyaline Casts Urine 0-2 /LPF (0-2); Squamous Epithelial Cell Urine 0-2 /HPF (0-2); UACC Culture Trigger YES; WBC Urine >50 /HPF (0-5)
[2023-01-06] MEDS: Artificial Tears 15 ML DROPS 1 DROP EYE-BOTH ×2 (13:56→23:30)
[2023-01-06 15:07] VITALS: BP 102/56; PULSE 67; RESP 17; TEMP 37.1; O2SAT 96
[2023-01-06 16:34] LABS: Glucose, Whole Blood 335 mg/dL (60-115)
[2023-01-06] MEDS: Morphine Sulfate 2 MG/ML CARTRIDGE IVPUSH (18:11)
[2023-01-06 19:18] VITALS: BP 98/56; PULSE 70; RESP 18; TEMP 36.4; O2SAT 97
[2023-01-06 20:28] LABS: Glucose, Whole Blood 326 mg/dL (60-115)
[2023-01-06] MEDS: Apixaban 5 MG TABLET PO (21:24)
[2023-01-06] MEDS: Atorvastatin Calcium 40 MG TABLET PO (21:24)
[2023-01-07] VITALS (9 sets, daily range): BP systolic 87–123; BP diastolic 44–60; PULSE 63–75; RESP 16–20; TEMP 36.3–37.3; O2SAT 95–97
[2023-01-07 06:22] LABS: Hematocrit 22.4 % (42.0-52.0); Hemoglobin 7.4 g/dl (14.0-18.0); Platelet Count 122 X10*3/uL (160-400); Red Blood Count 2.31 X10*6/uL (4.60-5.80); Red Cell Distribution Width 15.3 % (11.0-16.0); White Blood Count 6.8 X10*3/uL (4.8-10.8)
[2023-01-07 07:27] LABS: Glucose, Whole Blood 202 mg/dL (60-115)
[2023-01-07] MEDS: Insulin Glargine,Hum.rec.anlog 100 UNIT/ML 10 ML VIAL 49 UNIT SUBCUT (08:26)
[2023-01-07] MEDS: Insulin Lispro 100 UNIT/ML 3 ML VIAL SUBCUT ×4 (08:26→21:04)
[2023-01-07] MEDS: 0.9 % Sodium Chloride Flush 3 ML SYRINGE IVFLUSH ×3 (08:27→21:05)
[2023-01-07] MEDS: Cholecalciferol (Vitamin D3) 25 MCG TABLET PO (08:29)
[2023-01-07] MEDS: Isosorbide Mononitrate 30 MG TAB.ER.24H PO (08:29)
[2023-01-07] MEDS: Dronedarone HCl 400 MG TABLET PO ×2 (08:29→21:05)
[2023-01-07] MEDS: Multivitamin TABLET 1 TAB PO (08:29)
[2023-01-07] MEDS: Fluticasone/Vilanterol 100/25 BLST.W.DEV 1 PUFF INHALE (08:30)
[2023-01-07] MEDS: Gabapentin 100 MG CAPSULE PO ×3 (08:30→21:04)
[2023-01-07] MEDS: Metoprolol Succinate ER 25 MG TAB.ER.24H PO (08:30)
[2023-01-07] MEDS: Losartan Potassium 25 MG TABLET PO (08:30)
[2023-01-07 11:18] LABS: Glucose, Whole Blood 309 mg/dL (60-115)
[2023-01-07] MEDS: cefTRIAXone sodium 1 GM in 0.9 % Sodium Chloride 50 ML IV (11:30)
--- NOTE | 2023-01-07 12:23 | MHC.CM.PN ---
NO PLAN FOR DC TODAY REQUIRES 2 UNITS PRBC. [facility] MADE AWARE.
--- NOTE | 2023-01-07 16:01 | HO.PM.IMPN ---
Subjective Subjective Date of Service: 01/08/23 Interval History: feels weak this morning, no further episodes of hematuria but noted to have significant drop in hematocrit, soft blood pressure, complaining of urinary burning, urine culture pending, denies fever, no chills. Review of Systems Review of Systems: Yes all other systems are reviewed and are negative Physical Exam Vital Signs: Vital Signs: Last Vital Signs Temp 98.1 F 01/07/23 14:02 Pulse 69 01/07/23 14:02 Resp 18 01/07/23 14:02 BP 87/49 L 01/07/23 14:02 Pulse Ox 95 01/07/23 14:02 O2 Del Method Room Air 01/07/23 14:02 BMI result Body Mass Index 28.2 Const: Other: General awake alert x3, in no acute distress. Neck supple no JVD. CVS regular rate rhythm, Respiratory lungs clear to auscultation, no respiratory distress, no wheeze, no rhonchi. Gastrointestinal abdomen soft, non tender, bowel sounds audible, no guarding , no rigidity. Extremities mild pitting edema dorsum of both feet. Neuro nonfocal Skin no rash psych appropriate affect Renteria catheter in place clear urine with sediment Objective Data Active Medications Acetaminophen (Acetaminophen 325 Mg Tablet) 650 mg PO Q6H PRN PRN Reason: Pain, Mild (Pain Scale 1-3) Albuterol/Ipratropium (Albuterol/Iprat 2.5/0.5mg 3 Ml Ampul.Neb) 3 ml INHALE RQ6H PRN PRN Reason: wheezing Artificial Tears (Artificial Tears 15 Ml Drops) 1 drop EYE-BOTH Q4H PRN PRN Reason: Dry Eyes Last Admin: 01/06/23 23:30 Dose: 1 drop Documented By: ODALYS Atorvastatin Calcium (Atorvastatin Calcium 40 Mg Tablet) 40 mg PO BEDTIME [facility] Last Admin: 01/06/23 21:24 Dose: 40 mg Documented By: ODALYS Dronedarone (Dronedarone Hcl 400 Mg Tablet) 400 mg PO BID [facility] Last Admin: 01/07/23 08:29 Dose: 400 mg Documented By: LALITA Fluticasone Propionate (Fluticasone Propionate Nasal 16 Gm [place]) 2 spray NOSTRIL-B DAILY PRN PRN Reason: Allergy Symptoms Fluticasone/Vilanterol (Fluticasone/Vilanterol 100/25 Blst.W.Dev) 1 puff INHALE RDAILY [facility] Last Admin: 01/07/23 08:30 Dose: 1 puff Documented By: DEANNE Furosemide (Furosemide 20 Mg Tablet) 10 mg PO DAILY PRN; Protocol PRN Reason: edema Gabapentin (Gabapentin 100 Mg Capsule) 100 mg PO TID [facility] Last Admin: 01/07/23 15:13 Dose: 100 mg Documented By: LALITA Glucose (Glucose Gel 15 Gm Gel..Gram.) 15 gm PO Q15M PRN; Protocol PRN Reason: per Hypoglycemia Standing Ord. Dextrose (D10) 250 mls @ 750 mls/hr IV Q15M PRN; Protocol PRN Reason: per Hypoglycemia Standing Ord. Ceftriaxone Sodium 1 gm/ (Sodium Chloride) 50 mls @ 100 mls/hr IV Q24H [facility] Last Infusion: 01/07/23 12:03 Dose: 0 mls/hr Documented By: LALITA Insulin Glargine (Insulin Glargine,Hum.Rec.Anlog 100 Unit/Ml 10 Ml Vial) 49 unit SUBCUT DAILY [facility] Last Admin: 01/07/23 08:26 Dose: 49 unit Documented By: LALITA Insulin Human Lispro (Insulin Lispro 100 Unit/Ml 3 Ml Vial) 0 unit SUBCUT QIDACHS [facility]; Protocol Last Admin: 01/07/23 11:40 Dose: 8 unit Documented By: LALITA Isosorbide Mononitrate (Isosorbide Mononitrate 30 Mg Tab.Er.24h) 30 mg PO DAILY [facility]; Protocol Last Admin: 01/07/23 08:29 Dose: 30 mg Documented By: LALITA Losartan Potassium (Losartan Potassium 25 Mg Tablet) 25 mg PO DAILY [facility]; Protocol Last Admin: 01/07/23 08:30 Dose: 25 mg Documented By: LALITA Metoprolol Succinate (Metoprolol Succinate Er 25 Mg Tab.Er.24h) 25 mg PO DAILY [facility]; Protocol Last Admin: 01/07/23 08:30 Dose: 25 mg Documented By: LALITA Morphine Sulfate (Morphine Sulfate 2 Mg/Ml Cartridge) 2 mg IVPUSH Q3H PRN; Protocol PRN Reason: Pain, Mild (Pain Scale 1-3) Last Admin: 01/06/23 18:11 Dose: 2 mg Documented By: RICKEY Multivitamins/Vitamin C (Multivitamin Tablet) 1 tab PO DAILY [facility] Last Admin: 01/07/23 08:29 Dose: 1 tab Documented By: LALITA Multivitamins/Vitamin C (Multivitamin Tablet) 1 tab PO DAILY [facility] Last Admin: 01/07/23 08:36 Dose: Not Given Documented By: LALITA Non-Admin Reason: duplicate order Ondansetron HCl (Ondansetron Hcl 4 Mg/2 Ml Vial) 4 mg IVPUSH Q8H PRN PRN Reason: Nausea and Vomiting Oxycodone HCl (Oxycodone Hcl Immed Release 5 Mg Tablet) 5 mg PO Q4H PRN PRN Reason: Pain, Mild (Pain Scale 1-3) Last Admin: 01/06/23 23:29 Dose: 5 mg Documented By: ODALYS Pharmacy Consult (Consult Rx Perform Med Rec) 1 each MISCELLANE ONCE PRN PRN Reason: Consult order Pregabalin (Pregabalin 150 Mg Capsule) 150 mg PO QID PRN PRN Reason: Pain, Moderate Last Admin: 01/05/23 20:27 Dose: 150 mg Documented By: CASTGRACY Sodium Chloride (0.9 % Sodium Chloride Flush 3 Ml Syringe) 3 ml IVFLUSH QSHIFT [facility] Last Admin: 01/07/23 15:17 Dose: 3 ml Documented By: LALITA Vitamin D (Cholecalciferol (Vitamin D3) 25 Mcg Tablet) 25 mcg PO DAILY [facility] Last Admin: 01/07/23 08:29 Dose: 25 mcg Documented By: LALITA Labs 01/07/23 06:08 01/05/23 05:47 Labs: Laboratory Results - last 24 hr 01/06/23 01/06/23 01/07/23 16:30 20:19 06:08 MCV 97.0 MCH 32.0 MCHC 33.0 RDW 15.3 Plt Count 122 L MPV 10.0 Absolute Nucleated RBC 0.000 Nucleated RBC % (auto) 0.0 POC Glucose 335 H 326 H Blood Type Antibody Screen Crossmatch 01/07/23 01/07/23 01/07/23 07:05 11:14 11:48 MCV MCH MCHC RDW Plt Count MPV Absolute Nucleated RBC Nucleated RBC % (auto) POC Glucose 202 H 309 H Blood Type B Negative Antibody Screen NEGATIVE Crossmatch See Detail Microbiology Microbiology Results: Microbiology 01/06/23 Unknown Urine Culture - Preliminary Urine Catheterized - Renteria Catheter Culture in progress. Assessment and Plan (1) Blood clot in bladder: Status: Acute Plan 87 year old man admitted with urinary retention after taking his renteria catheter out 2 days prior to admission Urinary retention/hematuria no further episodes of hematuria, complaining of mild dysuria receiving IV antibiotics had Renteria catheter for 3 months pulled out 3 days ago since it was clogged and was unable to urinate, s/p renteria catheter placement in ED and CBI. CBI stopped 01/06/23, now with cloudy yellow urine, continue renteria catheter UA positive, urine culture pending renal us showed bilateral simple appearing renal cyst, mild left hydronephrosis, and limited evaluation of bladder case discussed with Urology they recommend outpatient follow-up with primary urologist,will DC Eliquis for acute drop in hematocrit. Acute blood loss anemia secondary to hematuria , will transfuse 1 unit of packed RBC follow H&H Hypertension soft blood pressures on multiple medications losartan 25 mg, metoprolol XL 25 mg, nitrates and as needed Lasix, will discontinue nitrates transfuse 1 unit and follow blood pressure closely HFpEF No acute heart failure, continue home medications Persistant afib significant drop in hematocrit will discontinue Eliquis, continue Multaq and metoprolol for rate control chronic thrombocytopenia unclear etiology but present since 1996 DVT prophylaxis with SCD boots Full code DISPO patient need continued inpatient hospitalization for significant drop in hematocrit requiring blood transfusion, will obtain PT eval, encourage out of bed to chair Time Spent With Patient Time: Total time managing care of this patient today ____ minutes. Quality Stroke Does the patient have a stroke diagnosis?: No VTE Prior VTE?: No VTE Risk Level:: Medical - moderate - high VTE Device Contraindication: N/A - Device Ordered VTE Drug Contraindication: Treatment Not Indicated
[2023-01-07 16:33] LABS: Glucose, Whole Blood 333 mg/dL (60-115)
[2023-01-07 20:58] LABS: Glucose, Whole Blood 285 mg/dL (60-115)
[2023-01-07] MEDS: polyethylene glycoL 3350 17 GM POWD.PACK PO (21:04)
[2023-01-07] MEDS: Atorvastatin Calcium 40 MG TABLET PO (21:04)
[2023-01-07] MEDS: traZODone HCL 50 MG TABLET PO (23:30)
[2023-01-08] MEDS: Morphine Sulfate 2 MG/ML CARTRIDGE IVPUSH (01:53)
[2023-01-08] MEDS: Furosemide 20 MG TABLET 10 MG PO (01:57)
[2023-01-08] MEDS: Morphine Sulfate 4 MG/ML CARTRIDGE IVPUSH (02:29)
[2023-01-08] MEDS: Gabapentin 100 MG CAPSULE 200 MG PO (02:35)
--- NOTE | 2023-01-08 02:45 | PC.NURSE ---
Pt c/o of excruciating pain in right foot states comes and goes.Has 3+ enrrique pedal edema.medicated with morphine 2mg iv and lasix 10 mg po per prn order.Pt requesting to see a doctor. came to see pt ordered gabapentin 200mg and morphine 4mg iv given at 0230.outer aspect of right foot is red puffy foot elevated on pillows.will continue to monitor.
[2023-01-08] MEDS: Acetaminophen 325 MG TABLET 650 MG PO (03:57)
[2023-01-08 03:58] VITALS: BP 117/57; PULSE 70; RESP 17; TEMP 36.8
[2023-01-08] MEDS: oxyCODONE HCl Immed Release 5 MG TABLET PO (03:58)
[2023-01-08 04:08] VITALS: BP 126/68; PULSE 71; RESP 18; O2SAT 97
--- NOTE | 2023-01-08 04:09 | PC.NURSE ---
Pt still c/o 10/10 pain comes and goes in right foot.States morphine did nothing.Medicated with 2 tylenol and oxycodone 5mg po at 0400
--- NOTE | 2023-01-08 05:49 | PC.NURSE ---
Pt put out 2,000 cc yellow urine in renteria after lasix swelling in right foot down pt states foot is feeling better.
[2023-01-08 07:25] VITALS: BP 110/59; PULSE 70; RESP 17; TEMP 36.2; O2SAT 98
[2023-01-08 07:33] LABS: Glucose, Whole Blood 229 mg/dL (60-115)
[2023-01-08] MEDS: polyethylene glycoL 3350 17 GM POWD.PACK PO (08:18)
[2023-01-08] MEDS: 0.9 % Sodium Chloride Flush 3 ML SYRINGE IVFLUSH (08:18)
[2023-01-08] MEDS: Insulin Glargine,Hum.rec.anlog 100 UNIT/ML 10 ML VIAL 49 UNIT SUBCUT (08:18)
[2023-01-08] MEDS: Insulin Lispro 100 UNIT/ML 3 ML VIAL SUBCUT ×2 (08:18→11:56)
[2023-01-08] MEDS: Dronedarone HCl 400 MG TABLET PO (08:19)
[2023-01-08] MEDS: Fluticasone/Vilanterol 100/25 BLST.W.DEV 1 PUFF INHALE (08:19)
[2023-01-08] MEDS: Multivitamin TABLET 1 TAB PO (08:19)
[2023-01-08] MEDS: Gabapentin 100 MG CAPSULE PO ×2 (08:19→14:09)
[2023-01-08] MEDS: Cholecalciferol (Vitamin D3) 25 MCG TABLET PO (08:19)
[2023-01-08] MEDS: Metoprolol Succinate ER 25 MG TAB.ER.24H PO (08:19)
[2023-01-08 08:48] LABS: Hematocrit 27.4 % (42.0-52.0); Hemoglobin 9.3 g/dl (14.0-18.0); Mean Corpuscular HGB Conc 33.9 g/dl (31.0-36.0); Mean Corpuscular Hemoglobin 32.4 pg (27.0-33.0); Mean Corpuscular Volume 95.5 fL (80.0-98.0); Mean Platelet Volume 10.2 fL (9.4-12.4); NRBC Pct Auto 0.3 /100WBC (0.0-0.2); Platelet Count 132 X10*3/uL (160-400); Red Blood Count 2.87 X10*6/uL (4.60-5.80); Red Cell Distribution Width 15.2 % (11.0-16.0); White Blood Count 6.5 X10*3/uL (4.8-10.8)
[2023-01-08 09:03] LABS: Anion Gap 14 (12-20); Blood Urea Nitrogen 18 mg/dL (9-16); Calcium 8.5 mg/dL (8.4-10.2); Carbon Dioxide 26 mmol/L (22-29); Chloride 104 mmol/L (96-108); Creatinine Clr Calc Pharmacy 56.3; Estimated Glomerular Filt Rate > 60; Glucose Random 270 mg/dL (60-115); Potassium 4.1 mmol/L (3.3-5.1); Sodium 140 mmol/L (135-145)
[2023-01-08 11:09] LABS: Glucose, Whole Blood 306 mg/dL (60-115)
[2023-01-08] MEDS: cefTRIAXone sodium 1 GM in 0.9 % Sodium Chloride 50 ML IV (12:21)
--- NOTE | 2023-01-08 12:24 | PM.DS ---
DS: Providers Provider Date of Service: 01/08/23 Date of admission: 01/04/23 12:07 Primary care physician: Jewel Rebolledo MD Consults: 01/04/23 11:11 Consult to Urology Stat Consulting Provider: Marlon Castano Reason for consultation: hematuria Has provider been notified: Yes 01/04/23 12:09 Consult to Urology Routine Consulting Provider: Marlon Castano Reason for consultation: urinary retension DS: Diagnosis Discharge Diagnosis (1) Blood clot in bladder: Status: Acute DS: Summary Hospital Course Hospital Course: history of presenting illness: being Date of Service: ? ? ? 01/04/23? Chief Complaint: ? ? ? urinary retention? 87 year old man presenting with inability to urinate for 2 days after removing his renteria catheter that he thought was clogged . He reported bloating, pain and abdominal distension. He denied nausea, vomiting, fever, chills. CBI placed in the ED with noted hematuria draining. Stable HH and vital signs. He will be admitted for further management and treatment of urinary retention?. hospital course: 87 year old man admitted with urinary retention after taking his renteria catheter out 2 days prior to admission Urinary retention/hematuria, admitted to medical floor due to urinary retention Renteria catheter placed noted to have significant hematuria treated with CBI, urine cleared, patient complained of dysuria therefore treated with IV antibiotics however urine culture grew no bacteria ,but grew yeast less than 50,000, no antifungal treatment required patient noted to have significant drop in hematocrit 1 unit of packed RBC was given, hematocrit improved, patient evaluated by urologist , Dr. David Alvarado, she recommend outpatient follow-up with Urology, since patient is hemodynamically stable he is being discharged home ,Eliquis has been discontinued due to significant drop in hematocrit, he has been recommended outpatient follow-up with Urology, prior to resuming Eliquis, may be a candidate of low-dose Eliquis since noted to have significant bruising both upper extremity since starting Eliquis, renal us? showed bilateral simple appearing renal cyst, mild left hydronephrosis, and limited evaluation of bladder. Acute blood loss anemia secondary to hematuria , hematocrit improved after 1 unit of packed RBC, no further bout of hematuria in last 48 hours Hypertension noted to have soft blood? pressures on multiple medications losartan 25 mg, metoprolol XL 25 mg, nitrates and as needed Lasix, will discontinue losartan recommend close outpatient follow-up with PCP. HFpEF No acute heart failure, continue home medications Persistant afib significant drop in hematocrit will discontinue Eliquis, continue? Multaq and metoprolol for rate control, recommend outpatient follow-up with Cardiology chronic thrombocytopenia stable platelet count,unclear etiology but present since 1996. Time Spent with Patient Time attestation: Total time managing care of this patient today ____ minutes. Discharge coordination time: Greater than 30 minutes Quality: Safe Use of Opioids Does Pt have an Active Cancer Diagnosis on the Problem List?: No Quality: Stroke Does the patient have a stroke diagnosis?: No Physical Exam Vital Signs: Vital Signs: Last Vital Signs Temp 97.2 F 01/08/23 07:25 Pulse 70 01/08/23 07:25 Resp 17 01/08/23 07:25 BP 110/59 L 01/08/23 07:25 Pulse Ox 98 01/08/23 07:25 O2 Del Method Room Air 01/08/23 07:25 BMI result Body Mass Index 28.2 Const: Other: General? awake alert x3, in no acute distress.? Neck? supple no JVD. CVS? regular rate rhythm, Respiratory lungs clear to auscultation, no respiratory distress, no wheeze, no rhonchi. Gastrointestinal abdomen soft, non tender, bowel sounds audible, no guarding , no rigidity. Extremities? pitting edema dorsum of both feet. Neuro nonfocal Skin no rash psych appropriate affect Renteria catheter in place clear urine . DS: Data Data Completed and Pending Completed studies during hospitalization [Text1]: Procedures Insertion of Infusion Device into Superior Vena Cava, Percutaneous Approach (12/29/20) Insertion of Pacemaker Lead into Right Atrium, Percutaneous Approach (12/29/20) Insertion of Pacemaker Lead into Right Ventricle, Percutaneous Approach (12/29/20) Insertion of Pacemaker, Dual Chamber into Chest Subcutaneous Tissue and Fascia, Open Approach (12/29/20) Labs on day of discharge: Laboratory Results - last 24 hr 01/07/23 01/07/23 01/07/23 11:48 16:25 20:53 WBC RBC Hgb Hct MCV MCH MCHC RDW Plt Count MPV Absolute Nucleated RBC Nucleated RBC % (auto) Sodium Potassium Chloride Carbon Dioxide Anion Gap BUN Creatinine Estim Creat Clear Calc Estimated GFR POC Glucose 333 H 285 H Random Glucose Calcium Blood Type B Negative Antibody Screen NEGATIVE Crossmatch See Detail 01/08/23 01/08/23 01/08/23 07:28 08:22 08:22 WBC 6.5 RBC 2.87 L D Hgb 9.3 L D Hct 27.4 L D MCV 95.5 MCH 32.4 MCHC 33.9 RDW 15.2 Plt Count 132 L MPV 10.2 Absolute Nucleated RBC 0.020 H Nucleated RBC % (auto) 0.3 H Sodium 140 Potassium 4.1 Chloride 104 Carbon Dioxide 26 Anion Gap 14 BUN 18 H Creatinine 0.98 Estim Creat Clear Calc 56.3 Estimated GFR > 60 POC Glucose 229 H Random Glucose 270 H Calcium 8.5 Blood Type Antibody Screen Crossmatch 01/08/23 11:05 WBC RBC Hgb Hct MCV MCH MCHC RDW Plt Count MPV Absolute Nucleated RBC Nucleated RBC % (auto) Sodium Potassium Chloride Carbon Dioxide Anion Gap BUN Creatinine Estim Creat Clear Calc Estimated GFR POC Glucose 306 H Random Glucose Calcium Blood Type Antibody Screen Crossmatch Preliminary micro results at discharge 01/06/23 Unknown Urine Culture - Preliminary Urine Catheterized - Renteria Catheter Yeast Discharge Plan Discharge Anticipated Discharge Date/Time: 01/08/23 12:04 Patient Disposition: Home Health Service Discharge Diagnosis: hematuria Referrals: Jewel Rebolledo MD [Primary Care Provider] - 1 Week Discharge Medications: New cefuroxime axetil 250 mg tablet 250 mg PO BID Qty: 10 0RF Continued furosemide [Lasix] 20 mg tablet 10 mg PO DAILY PRN (Reason: edema) Qty: 90 0RF Multaq 400 mg tablet 400 mg PO BID 90 Days Qty: 180 1RF Rx Instructions: must administer with a meal/food, fluticasone propionate 50 mcg/actuation spray,suspension 2 spray intranasal DAILY PRN (Reason: Allergy Symptoms) Combivent Respimat 20-100 mcg/actuation mist 1 puff inhalation QID multivitamin Tablet 1 tab PO DAILY insulin aspart U-100 [Novolog U-100 Insulin aspart] 100 unit/mL Solution 1 sliding scale dose SUBCUT USEASDIRECTD insulin degludec [Tresiba FlexTouch U-100] 100 unit/mL (3 mL) insulin pen 70 unit subcut DAILY metoprolol succinate 25 mg tablet extended release 24 hr 25 mg PO DAILY oxycodone 5 mg tablet 5 mg PO QID PRN (Reason: Pain) gabapentin 100 mg capsule 100 mg PO TID atorvastatin 40 mg tablet 40 mg PO BEDTIME budesonide-formoterol [Symbicort] 80-4.5 mcg/actuation HFA aerosol inhaler 1 inh inhalation DAILY pregabalin 150 mg capsule 150 mg PO QID PRN (Reason: Pain, Moderate) vitamin B complex [B Complex-Vitamin B12] Tablet 1 tab PO DAILY cholecalciferol (vitamin D3) 25 mcg (1,000 unit) capsule 25 mcg PO DAILY isosorbide mononitrate 30 mg tablet extended release 24 hr 30 mg PO DAILY Qty: 30 3RF Discontinued Eliquis 5 mg tablet 5 mg PO BID 90 Days Qty: 180 3RF ciprofloxacin HCl 500 mg tablet 500 mg PO BID losartan 25 mg tablet 25 mg PO DAILY Discharge Orders: Discharge Order (Routine); Ordered 01/08/23 Ordered By: Wilton Mccabe Diet: Diabetic diet Activity on Discharge: As tolerated Stand Alone Forms: Patient Portal Discharge page Care Plan Goals: hematuria resolved,stop Eliquis follow-up with Urology prior to resumption of Eliquis noted to have low blood pressures hold losartan take Ceftin 250 mg 1 tablet twice daily for 5 more days continue all other home medication Health Concerns: diabetes / atrial fibrillation Plan of Treatment: outpatient follow-up with primary care physician, outpatient follow-up with urology call for appointment for urinary retention and hematuria Assessment: as above
--- NOTE | 2023-01-08 13:12 | MHC.CM.PN ---
PATIENT IS DC HOME TODAY WITH RESUMPTION OF HIS BAYS=[facility]. IMM 01/07 IN CHART
--- NOTE | 2023-01-08 15:31 | P.CDIM_ITS ---
PROVIDER RESPONSE TEXT: To clarify, the appropriate diagnosis supported by the clinical indicators: Adverse effect of anti coagulant: Eliquis could be contributing to hematuria QUERY TEXT: PHYSICIAN'S DOCUMENTATION REQUEST Date of Query: 01/08/2023 09:19 AM EDT Patient Name: Jewel Canales Admit Date: 01/04/2023 Dear Wilton Mccabe, A review of the medical record indicates additional documentation may be needed. Please review below and update the documentation accordingly. Clinical Indicators: H&H on 01/07/23: 7.4/22.4 Per Hospitalist Progress Note 01/07/23: significant drop in hematocrit will discontinue Eliquis Acute blood loss anemia secondary to hematuria , will transfuse 1 unit of packed RBC follow H&H Based on the above, could you clarify the appropriate diagnosis, if significant, that supports the ab ove abnormalities and additional evaluation, monitoring, and/or treatment rendered: Hemorrhagic disorder due to extrinsic circulating anticoagulant Adverse effect of anti coagulant Other (explain) Clinically unable to determine (explain) Thank you, Alejandra Goncalves RN Use of terms such as suspected, likely, concern for, or probable (associated with a specific diagnosi s that is being evaluated, monitored, or treated as if it exists) are acceptable and can be coded in the inpatient se tting, when documented at the time of discharge. Please use your independent medical judgment in providing your response. THIS QUERY IS PART OF THE PERMANENT MEDICAL RECORD
== END 2023-01-08 15:10 | disposition home health service (06) | DRG 813 ==
LOC: HO.ED 11:18 → HO.EDOVER 12:12 → HO.S3 12:54
PROVIDERS: Admitting Provider Nurse Practitioner Acute Care; Emergency Provider Emergency Medicine; PCP Internal Medicine; Visit Provider Hospitalist
DX: D68.32 Hemorrhagic disorder due to extrinsic circulating anticoagulants (principal); D62 Acute posthemorrhagic anemia; I48.19 Other persistent atrial fibrillation; I50.32 Chronic diastolic (congestive) heart failure; D69.6 Thrombocytopenia, unspecified; R31.0 Gross hematuria; T45.515A Adverse effect of anticoagulants, initial encounter; R33.9 Retention of urine, unspecified; I11.0 Hypertensive heart disease with heart failure; Z85.46 Personal history of malignant neoplasm of prostate
CPT/HCPCS: 36415; 76770; 80048; 81001; 82947; 85014; 85018; 85025; 85027; 85610; 85730; 86850; 86900; 86901; 86923; 87086; 87088; 94640; 99285; C1758; J0696; J2270; P9016

== ENCOUNTER 2023-01-23 13:56 | Emergency (ER) | payer MEDICARE, SELFPAY ==
[2023-01-23 14:07] VITALS: BP 135/55; PULSE 70; RESP 18; TEMP 36.8; O2SAT 98; BMI 27.2
--- NOTE | 2023-01-23 14:25 | ED.MALEGU ---
HPI - Male Genitourinary General Chief complaint: Urogenital-Male Stated complaint: bleeding from catheter Time Seen by Provider: 01/23/23 17:51 Source: patient, RN notes reviewed and old records reviewed Mode of arrival: ambulatory Limitations: no limitations History of Present Illness HPI Narrative: 87-year-old male past medical history significant for paroxysmal AFib, heart failure, pacemaker implantation, prostate cancer status post prostate resection followed by Dr. Castano presents for evaluation of blood in the urine. Patient was discharged from this facility on 01/08/2023 after an episode of urinary retention and significant hematuria requiring blood transfusion x1. The patient is due to follow-up with Dr. Cm in 2 weeks He has still not had his Eliquis that was discontinued at his last visit He reports mild lower abdominal discomfort Patient states that last night he had significant bright red hematuria On arrival to the ED he reports ?it is mixed with blood and urine but was orange. There were very small blood clots but not as bad as when I was here few weeks ago. ? Patient believes he has a UTI Related Data Home Medications Medication Instructions Recorded Confirmed fluticasone propionate 50 2 spray intranasal DAILY PRN 12/14/20 01/04/23 mcg/actuation nasal Allergy Symptoms spray,suspension insulin aspart U-100 100 unit/mL 1 sliding scale dose subcut 12/14/20 01/04/23 subcutaneous solution (Novolog USEASDIRECTD U-100 Insulin aspart) ipratropium 20 mcg-albuterol 100 1 puff inhalation QID 12/14/20 01/04/23 mcg/actuation mist for inhalation (Combivent Respimat) multivitamin 1 tab PO DAILY 12/14/20 01/04/23 atorvastatin 40 mg tablet 40 mg PO BEDTIME 06/13/21 01/04/23 budesonide-formoterol HFA 80 1 inh inhalation DAILY 06/13/21 01/04/23 mcg-4.5 mcg/actuation aerosol inhaler (Symbicort) pregabalin 150 mg capsule 150 mg PO QID PRN Pain, Moderate 06/13/21 01/04/23 cholecalciferol (vitamin D3) 25 25 mcg PO DAILY 12/19/21 01/04/23 mcg (1,000 unit) capsule vitamin B complex (B 1 tab PO DAILY 12/19/21 01/04/23 Complex-Vitamin B12 tablet) insulin degludec 100 unit/mL (3 70 unit subcut DAILY 10/20/22 01/04/23 mL) subcutaneous pen (Tresiba FlexTouch U-100 insulin) gabapentin 100 mg capsule 100 mg PO TID 01/04/23 01/04/23 metoprolol succinate 25 mg 25 mg PO DAILY 01/04/23 01/04/23 tablet,extended release 24 hr oxycodone 5 mg tablet 5 mg PO QID PRN Pain 01/04/23 01/04/23 Previous Rx's Medication Instructions Recorded furosemide 20 mg tablet (Lasix) 10 mg PO DAILY PRN edema #90 tabs 08/05/21 isosorbide mononitrate 30 mg 30 mg PO DAILY #30 tabs 10/02/22 tablet,extended release 24 hr dronedarone 400 mg tablet (Multaq) 400 mg PO BID 90 days #180 tabs 12/16/22 cefuroxime axetil 250 mg tablet 250 mg PO BID #10 tabs 01/08/23 cefuroxime axetil 250 mg tablet 250 mg PO Q12H #14 tabs 01/23/23 Allergies Allergy/AdvReac Type Severity Reaction Status Date / Time No Known Allergies Allergy Mild N/A Verified 11/10/22 14:50 Review of Systems Constitutional: Constitutional: Reports as per HPI, Denies chills, Denies fatigue, Denies fever(s) and Denies headache(s) ENT: Denies headache(s) Cardiovascular: Cardiovascular: Denies chest pain and Denies dyspnea Respiratory: Respiratory: Denies cough and Denies dyspnea Gastrointestinal: Gastrointestinal: Denies constipation and Denies vomiting Genitourinary: Genitourinary: Reports hematuria, Denies difficulty urinating and Reports dysuria Neurologic: Denies headache(s) and Denies focal weakness Endocrine: Endocrine: Denies fatigue PMFSH Past Medical History Medical History (HFpEF) heart failure with preserved ejection fraction Bifascicular block CAD (coronary artery disease) Cardiac pacemaker in situ (~12/2020) CHF exacerbation COVID-19 vaccine series completed Diabetes Hepatorenal syndrome History of cardioversion History of ST elevation myocardial infarction (STEMI) HLD (hyperlipidemia) HTN (hypertension) Hx of Lyme disease Myocardial infarct, old Pancytopenia Persistent atrial fibrillation Prostate CA PVC (premature ventricular contraction) Symptomatic bradycardia Thrombocytopenia Tubular adenoma of colon Ventricular bigeminy Surgical History History of cardiac pacemaker (~12/2020) History of cervical spinal surgery History of colonoscopy History of left inguinal hernia repair History of lumbar discectomy History of radical prostatectomy History of total right knee replacement (TKR) Social History Social History Household Members: Spouse Housing: House Are you a primary care coordination manager to a significant other at home: No Do you presently have visiting nurse or other home services: Yes Alcohol intake: never Patient Tobacco Use Status: Former Tobacco user Quit Date: age 22's Tobacco use type: Cigarette Years Smoked: 10 Smoked in Last 30 Days: No Use of substances other than those prescribed or required for medical reasons: No Advance Directives: Yes Advance Directives on File: Yes Advance Directives Date on File: 01/04/23 service: Yes Current occupational status: retired Physical Exam Vital Signs: Vital Signs: Last Vital Signs Temp 98.3 F 01/23/23 14:07 Pulse 69 01/23/23 17:55 Resp 18 01/23/23 17:55 BP 133/90 H 01/23/23 17:55 Pulse Ox 98 01/23/23 17:55 O2 Del Method Room Air 01/23/23 17:55 BMI result Body Mass Index 27.2 Const: General: healthy appearing, comfortable, no acute distress, alert and awake Nutritional Appearance: well nourished Orientation/consciousness: patient oriented x3 HEENT: Head: Yes normocephalic and Yes atraumatic Eyes: Eyelids: Yes eyelids normal Conjunctivae: conjunctivae normal Sclerae: sclerae normal Corneas: corneas normal Pupils: Equal, round and reactive pupils present EOM: EOMs intact bilaterally Neck: Neck: Yes full ROM Resp: Effort & Inspection: normal respiratory effort and able to speak in complete sentences GI: Inspection: No distended Palpation (GI): Soft to palpation, not firm, nontender, no guarding and not rigid Auscultation: normoactive bowel sounds Skin: General skin exam: no rashes or lesions noted and elasticity normal Neuro: General: patient oriented x3 Cranial nerves: Yes Equal, round and reactive pupils present and Yes Bilaterally intact EOM present Cognition (Neuro): normal cognition Course Course Course Narrative: RME performed by Jessica Wilson PA-C. Patient is an 87 year old assigned male at presenting to the emergency department with blood in his urine. Labs ordered. Patient placed back in the waiting room pending room availability and results. Medical Decision Making Medical Decision Making MDM Narrative: 87-year-old male presents for evaluation of hematuria, it appears to be improving. His urine bag was full of clear, orange urine, no blood clots. His blood counts are significantly improved from his last hospital visit. Hemoglobin is 11.2 and 34.8 up from a discharge of 9.3 and 27.4. The patient is not a discomfort. He does appear to have a UTI. Given that UTI, we will treat with antibiotics and the patient will require a Mena catheter change. The patient did have an ultrasound of his bladder less than 3 weeks ago did not show any significant mass in the patient does have appropriate follow-up with Urology already scheduled Differential Diagnosis Urinary tract infection Hematuria Bladder mass Pyelonephritis Obstructive uropathy Lab Data [facility] Lab Attestation statement: I reviewed the patient's lab results. (Patient's renal function is within normal limits, he has hyperglycemia consistent with his baseline, no evidence of DKA. Mild anemia as described above, again improved from recent discharge) 01/23/23 14:26 01/23/23 14:26 Labs: Lab Results 01/23/23 01/23/23 01/23/23 Range/Units 14:26 14:26 14:26 WBC 6.4 (4.8-10.8) X10*3/uL RBC 3.46 L D (4.60-5.80) X10*6/uL Hgb 11.2 L D (14.0-18.0) g/dl Hct 34.8 L D (42.0-52.0) % MCV 100.6 H (80.0-98.0) fL MCH 32.4 (27.0-33.0) pg MCHC 32.2 (31.0-36.0) g/dl RDW 15.8 (11.0-16.0) % Plt Count 126 L (160-400) X10*3/uL MPV 10.1 (9.4-12.4) fL Immature Gran % (Auto) 0.9 H (0.0-0.4) % Neut % (Auto) 74.5 H (45-73) % Lymph % (Auto) 13.5 L (20-40) % [place] % (Auto) 8.6 (2-11) % Eos % (Auto) 2.2 (0-4) % Baso % (Auto) 0.3 (0-2) % Lymph # (Auto) 0.9 L (1.2-4.9) X10*3/uL [place] # (Auto) 0.6 (0.1-1.2) X10*3/uL Eos # (Auto) 0.1 (0.0-0.4) X10*3/uL Baso # (Auto) 0.0 (0.0-0.2) X10*3/uL Abs Immat Gran (auto) 0.06 H (0.00-0.03) X10*3/uL Absolute Neuts (auto) 4.8 (2.0-8.3) x10*3/uL Absolute Nucleated RBC 0.000 (0.0-0.012) X10*3/uL Nucleated RBC % (auto) 0.0 (0.0-0.2) /100WBC Sodium 135 (135-145) mmol/L Potassium 4.8 (3.3-5.1) mmol/L Chloride 104 (96-108) mmol/L Carbon Dioxide 23 (22-29) mmol/L Anion Gap 13 (12-20) BUN 19 H (9-16) mg/dL Creatinine 1.30 (0.5-1.4) mg/dL Estim Creat Clear Calc 38.8 Estimated GFR 52 Random Glucose 323 H (60-115) mg/dL Calcium 8.7 (8.4-10.2) mg/dL Total Bilirubin 1.3 H (0.0-1.0) mg/dL AST 34 (5-37) U/L ALT 37 (0-40) U/L Alkaline Phosphatase 85 (39-117) U/L B-Natriuretic Peptide 207 H (<100) pg/mL Total Protein 5.7 L (6.5-8.0) g/dL Albumin 3.5 (3.5-5.0) g/dL Urine Color Urine Appearance Urine pH (5.0-9.0) Ur Specific Frannie (1.005-1.025) Urine Protein (Neg-Trace) mg/dL Urine Glucose (UA) (Negative) mg/dL Urine Ketones (Negative) mg/dL Urine Blood (Negative) Urine Nitrite (Negative) Ur Leukocyte Esterase (Negative) Urine RBC (0-2) /HPF Urine WBC (0-5) /HPF Ur Squamous Epith Cells (0-2) /HPF Urine Bacteria (None Seen) Hyaline Casts (0-2) /LPF 01/23/23 Range/Units 14:26 WBC (4.8-10.8) X10*3/uL RBC (4.60-5.80) X10*6/uL Hgb (14.0-18.0) g/dl Hct (42.0-52.0) % MCV (80.0-98.0) fL MCH (27.0-33.0) pg MCHC (31.0-36.0) g/dl RDW (11.0-16.0) % Plt Count (160-400) X10*3/uL MPV (9.4-12.4) fL Immature Gran % (Auto) (0.0-0.4) % Neut % (Auto) (45-73) % Lymph % (Auto) (20-40) % [place] % (Auto) (2-11) % Eos % (Auto) (0-4) % Baso % (Auto) (0-2) % Lymph # (Auto) (1.2-4.9) X10*3/uL [place] # (Auto) (0.1-1.2) X10*3/uL Eos # (Auto) (0.0-0.4) X10*3/uL Baso # (Auto) (0.0-0.2) X10*3/uL Abs Immat Gran (auto) (0.00-0.03) X10*3/uL Absolute Neuts (auto) (2.0-8.3) x10*3/uL Absolute Nucleated RBC (0.0-0.012) X10*3/uL Nucleated RBC % (auto) (0.0-0.2) /100WBC Sodium (135-145) mmol/L Potassium (3.3-5.1) mmol/L Chloride (96-108) mmol/L Carbon Dioxide (22-29) mmol/L Anion Gap (12-20) BUN (9-16) mg/dL Creatinine (0.5-1.4) mg/dL Estim Creat Clear Calc Estimated GFR Random Glucose (60-115) mg/dL Calcium (8.4-10.2) mg/dL Total Bilirubin (0.0-1.0) mg/dL AST (5-37) U/L ALT (0-40) U/L Alkaline Phosphatase (39-117) U/L B-Natriuretic Peptide (<100) pg/mL Total Protein (6.5-8.0) g/dL Albumin (3.5-5.0) g/dL Urine Color [place] A Urine Appearance Turbid Urine pH 6.0 (5.0-9.0) Ur Specific Frannie 1.020 (1.005-1.025) Urine Protein 300 (3+) H (Neg-Trace) mg/dL Urine Glucose (UA) >=1000 H (Negative) mg/dL Urine Ketones Negative (Negative) mg/dL Urine Blood Large (3+) H (Negative) Urine Nitrite Negative (Negative) Ur Leukocyte Esterase Large (3+) H (Negative) Urine RBC >20 H (0-2) /HPF Urine WBC >50 H (0-5) /HPF Ur Squamous Epith Cells 0-2 (0-2) /HPF Urine Bacteria 4+ (None Seen) Hyaline Casts 0-2 (0-2) /LPF Discharge Plan Discharge Clinical Impression: Urinary tract infection with hematuria Patient Disposition: Home, Self-Care Instructions: Hematuria (ED), Urinary Tract Infection in Older Adults (ED) Additional Instructions: Your urine appears to be clearing up as there are no blood clots in the urine is more clear than you described earlier. Your Mena catheter was changed due to UTI Take Ceftin twice daily for the next 7 days, your 1st dose was given in the ER Follow-up with Dr. Cm/Dr. Castano as planned Return if you are unable to urinate, if there is no drainage in the bag we have significant pain Your blood sugar was elevated today, follow-up your primary doctor Prescriptions: New cefuroxime axetil 250 mg tablet 250 mg PO Q12H Qty: 14 0RF No Action furosemide [Lasix] 20 mg tablet 10 mg PO DAILY PRN (Reason: edema) Qty: 90 0RF Multaq 400 mg tablet 400 mg PO BID 90 Days Qty: 180 1RF Rx Instructions: must administer with a meal/food, fluticasone propionate 50 mcg/actuation spray,suspension 2 spray intranasal DAILY PRN (Reason: Allergy Symptoms) Combivent Respimat 20-100 mcg/actuation mist 1 puff inhalation QID multivitamin Tablet 1 tab PO DAILY insulin aspart U-100 [Novolog U-100 Insulin aspart] 100 unit/mL Solution 1 sliding scale dose SUBCUT USEASDIRECTD insulin degludec [Tresiba FlexTouch U-100] 100 unit/mL (3 mL) insulin pen 70 unit subcut DAILY metoprolol succinate 25 mg tablet extended release 24 hr 25 mg PO DAILY oxycodone 5 mg tablet 5 mg PO QID PRN (Reason: Pain) gabapentin 100 mg capsule 100 mg PO TID cefuroxime axetil 250 mg tablet 250 mg PO BID Qty: 10 0RF atorvastatin 40 mg tablet 40 mg PO BEDTIME budesonide-formoterol [Symbicort] 80-4.5 mcg/actuation HFA aerosol inhaler 1 inh inhalation DAILY pregabalin 150 mg capsule 150 mg PO QID PRN (Reason: Pain, Moderate) vitamin B complex [B Complex-Vitamin B12] Tablet 1 tab PO DAILY cholecalciferol (vitamin D3) 25 mcg (1,000 unit) capsule 25 mcg PO DAILY isosorbide mononitrate 30 mg tablet extended release 24 hr 30 mg PO DAILY Qty: 30 3RF
[2023-01-23 14:32] LABS: MANUAL DIFF FLAG NO
[2023-01-23 14:36] LABS: Basophils Percent Auto 0.3 % (0-2); Eosinophils Absolute Auto 0.1 X10*3/uL (0.0-0.4); Eosinophils Percent Auto 2.2 % (0-4); Hematocrit 34.8 % (42.0-52.0); Hemoglobin 11.2 g/dl (14.0-18.0); Imm Gran Abs Auto 0.06 X10*3/uL (0.00-0.03); Imm Gran Pct Auto 0.9 % (0.0-0.4); Lymphocytes Absolute Auto 0.9 X10*3/uL (1.2-4.9); Lymphocytes Percent Auto 13.5 % (20-40); Mean Corpuscular HGB Conc 32.2 g/dl (31.0-36.0); Mean Corpuscular Hemoglobin 32.4 pg (27.0-33.0); Mean Corpuscular Volume 100.6 fL (80.0-98.0); Mean Platelet Volume 10.1 fL (9.4-12.4); Monocytes Absolute Auto 0.6 X10*3/uL (0.1-1.2); Monocytes Percent Auto 8.6 % (2-11); Neutrophils Absolute Auto 4.8 x10*3/uL (2.0-8.3); Neutrophils Percent Auto 74.5 % (45-73); Platelet Count 126 X10*3/uL (160-400); Red Blood Count 3.46 X10*6/uL (4.60-5.80); Red Cell Distribution Width 15.8 % (11.0-16.0); White Blood Count 6.4 X10*3/uL (4.8-10.8)
[2023-01-23 14:37] LABS: Appearance Urine Turbid; Color Urine Orange; Glucose Urine UA >=1000 mg/dL (Negative); Leukocyte Esterase Urine Large (3+) (Negative); Nitrite Urine Negative (Negative); UMIC TRIGGER UACC YES; Urine Blood Large (3+) (Negative); Urine Ketones Negative (Negative); Urine Protein 300 (3+) mg/dL (Neg-Trace)
[2023-01-23 14:42] LABS: Bacteria Urine 4+ (None Seen); Hyaline Casts Urine 0-2 /LPF (0-2); RBC Urine >20 /HPF (0-2); Squamous Epithelial Cell Urine 0-2 /HPF (0-2); UACC Culture Trigger YES; WBC Urine >50 /HPF (0-5)
[2023-01-23 14:53] LABS: Alanine Aminotransferase 37 U/L (0-40); Albumin Level 3.5 g/dL (3.5-5.0); Alkaline Phosphatase 85 U/L (39-117); Anion Gap 13 (12-20); Aspartate Amino Transferase 34 U/L (5-37); Bilirubin Total 1.3 mg/dL (0.0-1.0); Blood Urea Nitrogen 19 mg/dL (9-16); Calcium 8.7 mg/dL (8.4-10.2); Carbon Dioxide 23 mmol/L (22-29); Chloride 104 mmol/L (96-108); Creatinine Clr Calc Pharmacy 38.8; Estimated Glomerular Filt Rate 52; Glucose Random 323 mg/dL (60-115); Potassium 4.8 mmol/L (3.3-5.1); Sodium 135 mmol/L (135-145); Total Protein 5.7 g/dL (6.5-8.0)
[2023-01-23 14:57] LABS: B Type Natriuretic Peptide 207 pg/mL (<100)
[2023-01-23 17:55] VITALS: BP 133/90; PULSE 69; RESP 18; O2SAT 98
[2023-01-23 20:57] VITALS: BP 127/66; PULSE 68; RESP 16; TEMP 36.4; O2SAT 97
[2023-01-23 22:51] VITALS: BP 150/105; PULSE 75; RESP 19; O2SAT 97
[2023-01-23 22:52] LABS: Glucose, Whole Blood 377 mg/dL (60-115)
[2023-01-23] MEDS: Lidocaine HCl 2 % Urojet 10 ML JEL.PF.APP TOPICAL (23:08)
[2023-01-23 23:58] VITALS: BP 143/70
== END 2023-01-23 23:59 | disposition home or self-care (01) ==
PROVIDERS: Emergency Provider Emergency Medicine; PCP Internal Medicine
DX: N39.0 Urinary tract infection, site not specified (principal); B96.5 Pseudomonas (aeruginosa) (mallei) (pseudomallei) as the cause of diseases classified elsewhere; B95.2 Enterococcus as the cause of diseases classified elsewhere; R31.9 Hematuria, unspecified; E11.9 Type 2 diabetes mellitus without complications; I11.0 Hypertensive heart disease with heart failure; I50.9 Heart failure, unspecified; E78.5 Hyperlipidemia, unspecified; I48.0 Paroxysmal atrial fibrillation; Z95.0 Presence of cardiac pacemaker; Z87.891 Personal history of nicotine dependence; Z79.4 Long term (current) use of insulin; Z79.02 Long term (current) use of antithrombotics/antiplatelets; Z79.899 Other long term (current) drug therapy
CPT/HCPCS: 36415; 51702; 80053; 81001; 82947; 83880; 85025; 87086; 87088; 87186; 99284

== ENCOUNTER 2023-01-31 01:45 | Inpatient (IN) | payer MEDICARE, SELFPAY ==
--- NOTE | ~2023-01-31 | CT_ITS ---
EXAMINATION: CT ABDOMEN AND PELVIS WITHOUT CONTRAST CLINICAL INFORMATION: UTI. Left hydronephrosis. COMPARISON: Previous renal ultrasound December 2022 TECHNIQUE: Multidetector volumetric imaging was performed from the superior aspect of the liver through the pubic symphysis. Sagittal and coronal reformatted images were obtained on the technologist's workstation. This CT examination was performed using dose optimization techniques as appropriate, variously including the following: *Automated exposure control *Adjustment of mA and/or kV according to patient size (this includes techniques or standardized protocols for targeted exams where dose is matched to indication/reason for exam; i.e. extremities or head) *Use of iterative reconstruction technique DLP: 733 mGy-cm FINDINGS: LUNG BASES: Increased peripheral reticular markings questionable for mild interstitial lung disease. LIVER, GALLBLADDER, AND BILIARY TREE: The liver is normal in size, shape, and attenuation. No focal hepatic lesion or biliary ductal dilatation is present. Small gallstones in the gallbladder. PANCREAS: Unremarkable. SPLEEN: Unremarkable. ADRENAL GLANDS: Unremarkable. KIDNEYS AND URETERS: 4 x 6 cm cyst in the upper pole of the left kidney. No imaging follow-up recommended. Mild bilateral hydronephrosis and ureteral dilatation down to the bladder. BLADDER: The bladder wall is diffusely thickened. There is a Mena catheter in the bladder. There is a small amount of fluid and air in the bladder. GASTROINTESTINAL TRACT: Diverticulosis of the colon. No evidence of diverticulitis. Small and large bowel is otherwise normal. The appendix is normal. The stomach is normal. ABDOMINAL WALL: No significant hernia is appreciated. LYMPH NODES: Normal. VASCULAR: Severe atherosclerotic disease. The abdominal aorta is tortuous. No aneurysm. PELVIC VISCERA: Surgical clips in the pelvis. The prostate gland appears to have been removed. OSSEOUS STRUCTURES: Degenerative changes of the spine. Mild 2 mm anterior subluxation of L3 with respect to L2 and L4. Surgical hardware in between the posterior elements/spinous processes of L3 and L4. Mild scoliosis. Mild degenerative changes of the hip joints. CT/CT abdomen pelvis wo IV con IMPRESSION: Mild bilateral hydronephrosis and ureteral dilatation down to the bladder. The bladder wall is diffusely thickened. There is a Mena catheter in the bladder. There is a small amount of fluid and air in the bladder. Gallstones. Diverticulosis of the colon. Fleischner guidelines were followed.
[2023-01-31 01:47] VITALS: BP 154/79; PULSE 81; RESP 18; TEMP 37.1; O2SAT 100; BMI 25.1
--- NOTE | 2023-01-31 02:30 | ED.MALEGU ---
HPI - Male Genitourinary General Chief complaint: Urogenital-Male Stated complaint: Catheter issue/ burning Time Seen by Provider: 01/31/23 02:14 Source: patient Mode of arrival: wheelchair Limitations: no limitations History of Present Illness HPI Narrative: Patient comes to the emergency room complaining of irritation/burning in the bladder and penis tip. Patient has a chronic Mena catheter. Patient was seen here about a week ago, prescribe cefuroxime. Patient states that the burning and the abdominal discomfort keeps worsening. Denies fever chills, no flank pain. Related Data Home Medications Medication Instructions Recorded Confirmed fluticasone propionate 50 2 spray intranasal DAILY PRN 12/14/20 01/04/23 mcg/actuation nasal Allergy Symptoms spray,suspension insulin aspart U-100 100 unit/mL 1 sliding scale dose subcut 12/14/20 01/04/23 subcutaneous solution (Novolog USEASDIRECTD U-100 Insulin aspart) ipratropium 20 mcg-albuterol 100 1 puff inhalation QID 12/14/20 01/04/23 mcg/actuation mist for inhalation (Combivent Respimat) multivitamin 1 tab PO DAILY 12/14/20 01/04/23 atorvastatin 40 mg tablet 40 mg PO BEDTIME 06/13/21 01/04/23 budesonide-formoterol HFA 80 1 inh inhalation DAILY 06/13/21 01/04/23 mcg-4.5 mcg/actuation aerosol inhaler (Symbicort) pregabalin 150 mg capsule 150 mg PO QID PRN Pain, Moderate 06/13/21 01/04/23 cholecalciferol (vitamin D3) 25 25 mcg PO DAILY 12/19/21 01/04/23 mcg (1,000 unit) capsule vitamin B complex (B 1 tab PO DAILY 12/19/21 01/04/23 Complex-Vitamin B12 tablet) insulin degludec 100 unit/mL (3 70 unit subcut DAILY 10/20/22 01/04/23 mL) subcutaneous pen (Tresiba FlexTouch U-100 insulin) gabapentin 100 mg capsule 100 mg PO TID 01/04/23 01/04/23 metoprolol succinate 25 mg 25 mg PO DAILY 01/04/23 01/04/23 tablet,extended release 24 hr oxycodone 5 mg tablet 5 mg PO QID PRN Pain 01/04/23 01/04/23 Previous Rx's Medication Instructions Recorded furosemide 20 mg tablet (Lasix) 10 mg PO DAILY PRN edema #90 tabs 08/05/21 isosorbide mononitrate 30 mg 30 mg PO DAILY #30 tabs 10/02/22 tablet,extended release 24 hr dronedarone 400 mg tablet (Multaq) 400 mg PO BID 90 days #180 tabs 12/16/22 cefuroxime axetil 250 mg tablet 250 mg PO BID #10 tabs 01/08/23 cefuroxime axetil 250 mg tablet 250 mg PO Q12H #14 tabs 01/23/23 Allergies Allergy/AdvReac Type Severity Reaction Status Date / Time No Known Allergies Allergy Mild N/A Verified 11/10/22 14:50 Review of Systems Review of Systems: Constitutional : No Weight loss, No Fever, No Chills, No Night Sweats, No Fatigue, No Malaise ENT/Mouth : No Hearing loss, No Ear Pain, No Nasal Congestion, No Sinus Pain, No Hoarseness, No sore throat, No Rhinorrhea, No Swallowing Difficulty Eyes: No Eye Pain, No Swelling, No Redness, No Foreign Body, No Discharge, No Vision Changes Cardiovascular : No Chest Pain, No SOB, No Dyspnea on Exertion, No Orthopnea, No Edema, No Palpitations Respiratory : No Cough, No Sputum, No Wheezing, No Smoke Exposure, No Dyspnea Gastrointestinal : No Nausea, No Vomiting, No Diarrhea, No Constipation, No abdominal Pain, No Hematochezia, No Melena Genitourinary : Complaining of penile burning from the Mena catheter, dysuria, No Urinary Frequency, No Hematuria, No Urinary Incontinence, No Urgency, No Flank Pain, No Urinary Flow Changes, No Hesitancy Musculoskeletal : No joint pain, No Myalgias, No Joint Swelling Skin : No Skin Lesions, No rash Neuro : No Weakness, No Numbness, No Paresthesias, No Loss of Consciousness, No Dizziness, No Headache Psych : No Anxiety/Panic, No Depression, No SI/HI/AH/VH, No Social Issues, Heme/Lymph: No Bruising, No Bleeding,No Lymphadenopathy Endocrine : No Polyuria, No Polydipsia, No Temperature Intolerance PMFSH Past Medical History Medical History (HFpEF) heart failure with preserved ejection fraction Acute retention of urine Bifascicular block CAD (coronary artery disease) Cardiac pacemaker in situ (~12/2020) CHF exacerbation COVID-19 vaccine series completed Diabetes Hepatorenal syndrome History of cardioversion History of prostate cancer History of ST elevation myocardial infarction (STEMI) HLD (hyperlipidemia) HTN (hypertension) Hx of Lyme disease Myocardial infarct, old Pancytopenia Persistent atrial fibrillation Prostate CA PVC (premature ventricular contraction) Symptomatic bradycardia Thrombocytopenia Tubular adenoma of colon Ventricular bigeminy Surgical History History of cardiac pacemaker (~12/2020) History of cervical spinal surgery History of colonoscopy History of left inguinal hernia repair History of lumbar discectomy History of radical prostatectomy History of total right knee replacement (TKR) Social History Social History Household Members: Spouse Housing: House Are you a primary healthcare translator to a significant other at home: No Do you presently have visiting nurse or other home services: Yes Alcohol intake: never Patient Tobacco Use Status: Former Tobacco user Quit Date: age 22's Tobacco use type: Cigarette Years Smoked: 10 Smoked in Last 30 Days: No Use of substances other than those prescribed or required for medical reasons: No Advance Directives: Yes Advance Directives on File: Yes Advance Directives Date on File: 01/04/23 service: Yes Current occupational status: retired Physical Exam Vital Signs: Vital Signs: Last Vital Signs Temp 98.7 F 01/31/23 01:47 Pulse 81 01/31/23 01:47 Resp 18 01/31/23 01:47 BP 154/79 H 01/31/23 01:47 Pulse Ox 100 01/31/23 01:47 O2 Del Method Room Air 01/31/23 01:47 BMI result Body Mass Index 25.1 Const: Other: Appearance: Alert. Oriented X3. No acute distress. Eyes: Pupils equal, round and reactive to light. ENT: Pharynx normal. Neck: Normal inspection. Neck supple. No lymph nodes noted. No crepitus CVS: Normal heart rate and rhythm. Pulses normal. Normal S1 and S2 Respiratory: No respiratory distress. Breath sounds normal. No Wheezing. No rales Abdomen: Soft and nontender mild suprapubic discomfort. Skin: Skin warm and dry. Normal skin color. Normal skin turgor. Extremities: No lower extremity edema. No Lacerations. No Rash Neuro: Oriented X 3. No motor deficit. No sensory deficit. Moving all extremities. No slurred speech. CN 2 through 12 grossly intact Psych: calm, cooperative, normal affect Medical Decision Making Medical Decision Making [facility] Narrative: -patient's Mena catheter was changed -patient's micro urine specimen from last week is positive for Pseudomonas and Enterococcus, patient is resistant to several antibiotics, either to the Pseudomonas or the Enterococcus faecalis. Patient failed outpatient treatment. Pt has symptoms, not improving with PO abx, this is likely a UTI rather than just chronic colonization. I discussed the patient with Dr. Owens, we will admit the patient -sepsis not suspected. we'll start the pt on defepime and linezolid Admission/Observation Consideration of admission/observation: Escalation of care including admission/observation considered Consult Healthcare Provider Management of the patient was discussed with: Hospitalist Lab Data [facility] Lab Attestation statement: I reviewed the patient's lab results. 01/31/23 02:42 01/31/23 02:42 Labs: Lab Results 01/31/23 01/31/23 01/31/23 Range/Units 02:42 02:42 02:42 WBC 5.8 (4.8-10.8) X10*3/uL RBC 3.56 L (4.60-5.80) X10*6/uL Hgb 11.0 L (14.0-18.0) g/dl Hct 33.4 L (42.0-52.0) % MCV 93.8 (80.0-98.0) fL MCH 30.9 (27.0-33.0) pg MCHC 32.9 (31.0-36.0) g/dl RDW 14.6 (11.0-16.0) % Plt Count 118 L (160-400) X10*3/uL MPV 10.0 (9.4-12.4) fL Immature Gran % (Auto) 0.7 H (0.0-0.4) % Neut % (Auto) 73.8 H (45-73) % Lymph % (Auto) 13.7 L (20-40) % [place] % (Auto) 10.5 (2-11) % Eos % (Auto) 1.0 (0-4) % Baso % (Auto) 0.3 (0-2) % Lymph # (Auto) 0.8 L (1.2-4.9) X10*3/uL [place] # (Auto) 0.6 (0.1-1.2) X10*3/uL Eos # (Auto) 0.1 (0.0-0.4) X10*3/uL Baso # (Auto) 0.0 (0.0-0.2) X10*3/uL Abs Immat Gran (auto) 0.04 H (0.00-0.03) X10*3/uL Absolute Neuts (auto) 4.3 (2.0-8.3) x10*3/uL Absolute Nucleated RBC 0.000 (0.0-0.012) X10*3/uL Nucleated RBC % (auto) 0.0 (0.0-0.2) /100WBC Sodium 133 L (135-145) mmol/L Potassium 4.1 (3.3-5.1) mmol/L Chloride 99 (96-108) mmol/L Carbon Dioxide 24 (22-29) mmol/L Anion Gap 14 (12-20) BUN 27 H (9-16) mg/dL Creatinine 1.06 (0.5-1.4) mg/dL Estim Creat Clear Calc 47.6 Estimated GFR > 60 Random Glucose 320 H (60-115) mg/dL Lactic Acid 0.8 (0.5-2.0) mmol/L Calcium 9.2 (8.4-10.2) mg/dL Discharge Plan Discharge Clinical Impression: Acute UTI Patient Disposition: Admitted As Inpatient Prescriptions: No Action furosemide [Lasix] 20 mg tablet 10 mg PO DAILY PRN (Reason: edema) Qty: 90 0RF Multaq 400 mg tablet 400 mg PO BID 90 Days Qty: 180 1RF Rx Instructions: must administer with a meal/food, fluticasone propionate 50 mcg/actuation spray,suspension 2 spray intranasal DAILY PRN (Reason: Allergy Symptoms) Combivent Respimat 20-100 mcg/actuation mist 1 puff inhalation QID multivitamin Tablet 1 tab PO DAILY insulin aspart U-100 [Novolog U-100 Insulin aspart] 100 unit/mL Solution 1 sliding scale dose SUBCUT USEASDIRECTD insulin degludec [Tresiba FlexTouch U-100] 100 unit/mL (3 mL) insulin pen 70 unit subcut DAILY metoprolol succinate 25 mg tablet extended release 24 hr 25 mg PO DAILY oxycodone 5 mg tablet 5 mg PO QID PRN (Reason: Pain) gabapentin 100 mg capsule 100 mg PO TID cefuroxime axetil 250 mg tablet 250 mg PO BID Qty: 10 0RF cefuroxime axetil 250 mg tablet 250 mg PO Q12H Qty: 14 0RF atorvastatin 40 mg tablet 40 mg PO BEDTIME budesonide-formoterol [Symbicort] 80-4.5 mcg/actuation HFA aerosol inhaler 1 inh inhalation DAILY pregabalin 150 mg capsule 150 mg PO QID PRN (Reason: Pain, Moderate) vitamin B complex [B Complex-Vitamin B12] Tablet 1 tab PO DAILY cholecalciferol (vitamin D3) 25 mcg (1,000 unit) capsule 25 mcg PO DAILY isosorbide mononitrate 30 mg tablet extended release 24 hr 30 mg PO DAILY Qty: 30 3RF
[2023-01-31 02:47] LABS: MANUAL DIFF FLAG NO
[2023-01-31 02:49] LABS: Basophils Percent Auto 0.3 % (0-2); Eosinophils Absolute Auto 0.1 X10*3/uL (0.0-0.4); Hematocrit 33.4 % (42.0-52.0); Imm Gran Abs Auto 0.04 X10*3/uL (0.00-0.03); Imm Gran Pct Auto 0.7 % (0.0-0.4); Lymphocytes Absolute Auto 0.8 X10*3/uL (1.2-4.9); Lymphocytes Percent Auto 13.7 % (20-40); Mean Corpuscular HGB Conc 32.9 g/dl (31.0-36.0); Mean Corpuscular Hemoglobin 30.9 pg (27.0-33.0); Mean Corpuscular Volume 93.8 fL (80.0-98.0); Monocytes Absolute Auto 0.6 X10*3/uL (0.1-1.2); Monocytes Percent Auto 10.5 % (2-11); Neutrophils Absolute Auto 4.3 x10*3/uL (2.0-8.3); Neutrophils Percent Auto 73.8 % (45-73); Platelet Count 118 X10*3/uL (160-400); Red Blood Count 3.56 X10*6/uL (4.60-5.80); Red Cell Distribution Width 14.6 % (11.0-16.0); White Blood Count 5.8 X10*3/uL (4.8-10.8)
[2023-01-31 03:00] LABS: Lactic Acid 0.8 mmol/L (0.5-2.0)
[2023-01-31 03:03] LABS: Anion Gap 14 (12-20); Blood Urea Nitrogen 27 mg/dL (9-16); Calcium 9.2 mg/dL (8.4-10.2); Carbon Dioxide 24 mmol/L (22-29); Chloride 99 mmol/L (96-108); Creatinine Clr Calc Pharmacy 47.6; Estimated Glomerular Filt Rate > 60; Glucose Random 320 mg/dL (60-115); Potassium 4.1 mmol/L (3.3-5.1); Sodium 133 mmol/L (135-145)
--- NOTE | 2023-01-31 03:41 | PC.NURSE ---
Three way catheter removed. Pt able to void immediately after removal. Urine is yellow, cloudy with sediment. 16F two way catheter inserted. Pt tolerated well.
--- NOTE | 2023-01-31 03:45 | P.HPHOSP_ITS ---
History of Present Illness Date of Service: 01/31/23 Chief Complaint: Dysuria This is a 87-year-old male with pertinent history of congestive heart failure with preserved ejection fraction, insulin-dependent diabetes mellitus, persistent atrial fibrillation, essential hypertension, mixed hyperlipidemia, chronic thrombocytopenia, urinary retention on chronic Mena who presents to the emergency department for evaluation of dysuria and suprapubic pain. Patient was seen in the ER on 01/23 and discharged on oral cephalosporin. Patient states he his symptoms continued despite the oral antibiotic. He is here with worsening dysuria and suprapubic discomfort comfort. Patient denies fever, chills, nausea, vomiting, chest discomfort, shortness of breath, palpitations, changes in bowel habits Upon chart review, urine culture on 01/23 with Pseudomonas and VRE Review of Systems Constitutional: Constitutional: Reports no additional constitutional complaints Cardiovascular: Cardiovascular: Reports no additional cardiovascular complaints Respiratory: Respiratory: Reports no additional respiratory complaints Gastrointestinal: Gastrointestinal: Reports no additional gastrointestinal complaints Genitourinary: Genitourinary: Reports dysuria [facility] Medical History (HFpEF) heart failure with preserved ejection fraction Acute retention of urine Bifascicular block CAD (coronary artery disease) Cardiac pacemaker in situ (~12/2020) CHF exacerbation COVID-19 vaccine series completed Diabetes Hepatorenal syndrome History of cardioversion History of prostate cancer History of ST elevation myocardial infarction (STEMI) HLD (hyperlipidemia) HTN (hypertension) Hx of Lyme disease Myocardial infarct, old Pancytopenia Persistent atrial fibrillation Prostate CA PVC (premature ventricular contraction) Symptomatic bradycardia Thrombocytopenia Tubular adenoma of colon Ventricular bigeminy Surgical History History of cardiac pacemaker (~12/2020) History of cervical spinal surgery History of colonoscopy History of left inguinal hernia repair History of lumbar discectomy History of radical prostatectomy History of total right knee replacement (TKR) Social History Household Members: Spouse Housing: House Are you a primary personal care worker to a significant other at home: No Do you presently have visiting nurse or other home services: Yes Alcohol intake: never Patient Tobacco Use Status: Former Tobacco user Quit Date: age 22's Tobacco use type: Cigarette Years Smoked: 10 Advance Directives Date on File: 01/04/23 service: Yes Current occupational status: retired Meds Allergies Allergy/AdvReac Type Severity Reaction Status Date / Time No Known Allergies Allergy Mild N/A Verified 11/10/22 14:50 Active Medications: Current Medications Linezolid (Zyvox/D5w) 600 mg in 300 mls @ 300 mls/hr IV Q12H [facility] Cefepime HCl 2 gm/ Sodium (Chloride) 50 mls @ 100 mls/hr IV Q8H [facility] Home Medications Medication Instructions Recorded Confirmed Last Taken Type fluticasone propionate 50 2 spray intranasal DAILY PRN 12/14/20 01/04/23 02/20/21 08:00 History mcg/actuation nasal Allergy Symptoms spray,suspension insulin aspart U-100 100 unit/mL 1 sliding scale dose subcut 12/14/20 01/04/23 Unknown History subcutaneous solution (Novolog USEASDIRECTD U-100 Insulin aspart) ipratropium 20 mcg-albuterol 100 1 puff inhalation QID 12/14/20 01/04/23 10/24/22 07:00 History mcg/actuation mist for inhalation (Combivent Respimat) multivitamin 1 tab PO DAILY 12/14/20 01/04/23 Unknown History atorvastatin 40 mg tablet 40 mg PO BEDTIME 06/13/21 01/04/23 Unknown History budesonide-formoterol HFA 80 1 inh inhalation DAILY 06/13/21 01/04/23 10/24/22 07:00 History mcg-4.5 mcg/actuation aerosol inhaler (Symbicort) pregabalin 150 mg capsule 150 mg PO QID PRN Pain, Moderate 06/13/21 01/04/23 Unknown History cholecalciferol (vitamin D3) 25 25 mcg PO DAILY 12/19/21 01/04/23 Unknown History mcg (1,000 unit) capsule vitamin B complex (B 1 tab PO DAILY 12/19/21 01/04/23 Unknown History Complex-Vitamin B12 tablet) insulin degludec 100 unit/mL (3 70 unit subcut DAILY 10/20/22 01/04/23 10/24/22 07:00 History mL) subcutaneous pen (Tresiba 30 units FlexTouch U-100 insulin) gabapentin 100 mg capsule 100 mg PO TID 01/04/23 01/04/23 Unknown History metoprolol succinate 25 mg 25 mg PO DAILY 01/04/23 01/04/23 Unknown History tablet,extended release 24 hr oxycodone 5 mg tablet 5 mg PO QID PRN Pain 01/04/23 01/04/23 Unknown History Physical Exam Vital Signs and Narrative: Vital Signs: Last Vital Signs Temp 98.7 F 01/31/23 01:47 Pulse 81 01/31/23 01:47 Resp 18 01/31/23 01:47 BP 154/79 H 01/31/23 01:47 Pulse Ox 100 01/31/23 01:47 O2 Del Method Room Air 01/31/23 01:47 BMI result Body Mass Index 25.1 elderly male lying in bed in no distress Neck supple, no JVD irregularly irregular, S1-S2 heard Regular breath sounds bilaterally, no wheezing or crackles appreciated Abdomen with suprapubic tenderness with deep palpation, no guarding, no rigidity, no rebound tenderness Patient is awake, alert and oriented to self, place, time and person ; no focal motor deficit Psych: Normal mood No pedal edema Results Labs 01/31/23 02:42 01/31/23 02:42 Labs: Laboratory Results - last 24 hr 01/31/23 01/31/23 01/31/23 02:42 02:42 02:42 MCV 93.8 MCH 30.9 MCHC 32.9 RDW 14.6 Plt Count 118 L MPV 10.0 Immature Gran % (Auto) 0.7 H Neut % (Auto) 73.8 H Lymph % (Auto) 13.7 L [place] % (Auto) 10.5 Eos % (Auto) 1.0 Baso % (Auto) 0.3 Lymph # (Auto) 0.8 L [place] # (Auto) 0.6 Eos # (Auto) 0.1 Baso # (Auto) 0.0 Abs Immat Gran (auto) 0.04 H Absolute Neuts (auto) 4.3 Absolute Nucleated RBC 0.000 Nucleated RBC % (auto) 0.0 Anion Gap 14 Estim Creat Clear Calc 47.6 Estimated GFR > 60 Random Glucose 320 H Lactic Acid 0.8 Calcium 9.2 Assessment and Plan (1) Acute UTI: Status: Acute Plan This is a 87-year-old male with pertinent history of congestive heart failure with preserved ejection fraction, insulin-dependent diabetes mellitus, persistent atrial fibrillation, essential hypertension, mixed hyperlipidemia, chronic thrombocytopenia, urinary retention on chronic Mena who presents to the emergency department for evaluation of dysuria and suprapubic pain. #. Acute UTI. Will admit patient as he failed p.o. antibiotics. Previous urine culture with Pseudomonas and VRE. Initiating empiric IV antibiotics. Consulting ID #. insulin-dependent diabetes mellitus with hyperglycemia. Continue basal plus regimen. On pregabalin /gabapentin for neuropathy #. persistent atrial fibrillation. Anticoagulation discontinued during previous hospitalization due to hematuria. Rate controlled in the ER. #. Congestive heart failure with preserved ejection fraction. Compensated during admission. #. Chronic thrombocytopenia. Stable #. essential hypertension. Continue home antihypertensives #. mixed hyperlipidemia. On statin med rec pending DVT prophylaxis: Lovenox Full code Cardiac diet Admit as inpatient and will require two night minimum hospital stay for IV antibiotics. Specialist consult pending Time Spent With Patient Time: Total time managing care of this patient today ____ minutes. Quality Stroke Does the patient have a stroke diagnosis?: No VTE Prior VTE?: No VTE Risk Level:: Medical - moderate - high VTE Device Contraindication: Treatment Not Indicated VTE Drug Contraindication: N/A - Med Ordered
[2023-01-31] MEDS: Enoxaparin Sodium 40 MG/0.4 ML SYRINGE SUBCUT (04:08)
[2023-01-31] MEDS: cefEPime HCl 2 GM in 0.9 % Sodium Chloride 50 ML IV ×3 (04:08→19:38)
[2023-01-31 04:22] LABS: Appearance Urine Turbid; Color Urine Yellow; Glucose Urine UA >=1000 mg/dL (Negative); Leukocyte Esterase Urine Large (3+) (Negative); Nitrite Urine Negative (Negative); UMIC TRIGGER UACC YES; Urine Blood Moderate (2+) (Negative); Urine Ketones Negative (Negative); Urine Protein 30 (1+) mg/dL (Neg-Trace)
[2023-01-31] MEDS: Linezolid/D5W 600 MG/300 ML PIGGYBACK 300 MG IV ×2 (04:29→16:52)
[2023-01-31 04:36] LABS: Bacteria Urine Trace (None Seen); RBC Urine 0-2 /HPF (0-2); Squamous Epithelial Cell Urine 0-2 /HPF (0-2); UACC Culture Trigger YES; WBC Urine >50 /HPF (0-5)
[2023-01-31] MEDS: Insulin Regular, Human 100 UNIT/ML 3 ML VIAL 10 UNIT IVPUSH (04:36)
[2023-01-31 06:22] LABS: MANUAL DIFF FLAG NO
[2023-01-31 06:23] LABS: Basophils Percent Auto 0.3 % (0-2); Eosinophils Absolute Auto 0.1 X10*3/uL (0.0-0.4); Eosinophils Percent Auto 1.8 % (0-4); Hematocrit 33.2 % (42.0-52.0); Hemoglobin 10.8 g/dl (14.0-18.0); Imm Gran Abs Auto 0.05 X10*3/uL (0.00-0.03); Imm Gran Pct Auto 0.8 % (0.0-0.4); Mean Corpuscular HGB Conc 32.5 g/dl (31.0-36.0); Mean Corpuscular Hemoglobin 31.3 pg (27.0-33.0); Mean Corpuscular Volume 96.2 fL (80.0-98.0); Mean Platelet Volume 9.9 fL (9.4-12.4); Monocytes Absolute Auto 0.8 X10*3/uL (0.1-1.2); Monocytes Percent Auto 12.4 % (2-11); Neutrophils Absolute Auto 4.2 x10*3/uL (2.0-8.3); Neutrophils Percent Auto 68.7 % (45-73); Platelet Count 115 X10*3/uL (160-400); Red Blood Count 3.45 X10*6/uL (4.60-5.80); Red Cell Distribution Width 14.6 % (11.0-16.0); White Blood Count 6.1 X10*3/uL (4.8-10.8)
[2023-01-31 06:54] LABS: Glucose, Whole Blood 213 mg/dL (60-115)
[2023-01-31 07:07] LABS: Anion Gap 10 (12-20); Blood Urea Nitrogen 23 mg/dL (9-16); Calcium 9.2 mg/dL (8.4-10.2); Carbon Dioxide 27 mmol/L (22-29); Chloride 105 mmol/L (96-108); Creatinine Clr Calc Pharmacy 54.8; Estimated Glomerular Filt Rate > 60; Glucose Random 151 mg/dL (60-115); Sodium 138 mmol/L (135-145)
[2023-01-31 07:15] VITALS: BP 119/59; PULSE 69; RESP 16; TEMP 36.6; O2SAT 99
[2023-01-31 07:27] LABS: Glucose, Whole Blood 166 mg/dL (60-115)
[2023-01-31] MEDS: 0.9 % Sodium Chloride Flush 3 ML SYRINGE IVFLUSH ×3 (07:46→20:19)
[2023-01-31] MEDS: Insulin Lispro 100 UNIT/ML 3 ML VIAL SUBCUT ×4 (07:46→20:19)
--- NOTE | 2023-01-31 08:24 | PC.NURSE ---
Cristina patent, 50mL in bag, cloudy. Ate breakfast. Alert and orient
--- NOTE | 2023-01-31 09:02 | PC.NURSE ---
report given for medical admission
[2023-01-31 10:00] VITALS: BP 139/68; PULSE 70; RESP 18; TEMP 36.3; O2SAT 96
--- NOTE | 2023-01-31 10:44 | PHA.MEDREC ---
Pharmacy Consult ? Medication Reconciliation Pharmacy has completed the medication reconciliation. spoke with patient. kamari historian. Per last visit he was told to stop Eliquis and losartan until he followed up with his doctor. He gets confused between gabapentin and pregabalin and thinks that they are the exact same medication. He says he only takes the one that the insurance pays for which is the pregabalin (verified through claim history and [employer]). He claims to be taking furosemide 20mg daily for edema however there is no claim history for it and it was on his discharge summary from previous visit. He did seem unsure on some of his medications. Also no history for Novolog. Used claim history and previous discharge summary to complete med rec.
[2023-01-31 11:18] LABS: Glucose, Whole Blood 332 mg/dL (60-115)
--- NOTE | 2023-01-31 12:23 | MHC.CM.PN ---
pt lives with he is a vet ,states is active with scott who comes in [place] to change f/c and has mow pts car is in parking lot dc plan home
--- NOTE | 2023-01-31 14:06 | PM.EVENT ---
Event Note Date of Service: 01/31/23 Event Note: This is a 87-year-old male with pertinent history of congestive heart failure with preserved ejection fraction, insulin-dependent diabetes mellitus, persistent atrial fibrillation, essential hypertension, mixed hyperlipidemia,? chronic thrombocytopenia, urinary retention on chronic Mena who presents to the emergency department for evaluation of dysuria and suprapubic pain. Acute UTI.? Will admit patient as he failed p.o. antibiotics.? Previous urine culture with Pseudomonas and VRE.? Initiating empiric IV antibiotics.? Consulting ID insulin-dependent diabetes mellitus with hyperglycemia.? Continue basal plus regimen.? On pregabalin /gabapentin for neuropathy persistent atrial fibrillation.? Anticoagulation discontinued during previous hospitalization due to hematuria.? Rate controlled in the ER. Congestive heart failure with preserved ejection fraction.? Compensated during admission. Chronic thrombocytopenia.? Stable essential hypertension.? Continue home antihypertensives mixed hyperlipidemia.? On statin DVT prophylaxis:? Lovenox Full code Admit as inpatient and will require two night minimum hospital stay for? IV antibiotics.? Specialist consult pending Time Spent With Patient Time: Total time managing care of this patient today ____ minutes.
[2023-01-31 15:04] VITALS: BP 121/56; PULSE 70; RESP 18; TEMP 36.4; O2SAT 98
[2023-01-31 15:55] LABS: Glucose, Whole Blood 304 mg/dL (60-115)
--- NOTE | 2023-01-31 17:32 | P.CNUR_ITS ---
History of Present Illness Consult details Consult date: 01/31/23 Narrative: 87-year-old male with pertinent history of prostate cancer status post radical prostatectomy followed by radiation, the patient states the Renteria catheter was put in due to persistent urinary frequency and urge incontinence, he states he failed medication, also had a round of Botox bladder injection. PMH congestive heart failure with preserved ejection fraction, insulin-dependent diabetes mellitus, persistent atrial fibrillation, essential hypertension, mixed hyperlipidemia,? chronic thrombocytopenia, chhronic Renteria who presents to the emergency department for evaluation of dysuria and suprapubic pain.? Patient was seen in the ER on 01/23 and discharged on oral cephalosporin.? Patient states he his symptoms continued despite the oral antibiotic.? He is here with worsening dysuria and suprapubic discomfort comfort and he complains of pain right side of the abdomen. Patient denies fever, chills, nausea, vomiting, chest discomfort, shortness of breath. Urine culture on 01/23 with Pseudomonas and VRE. Pt on Cefepime and Linezolid. Renal Sono 01/05, mild hydro, left - Recommend CT abd/pelvis without IV contrast. Review of Systems Review of Systems: 10 point ROS negative other than stated [facility]PI [facility] Past Medical History Medical History (HFpEF) heart failure with preserved ejection fraction Acute retention of urine Bifascicular block CAD (coronary artery disease) Cardiac pacemaker in situ (~12/2020) CHF exacerbation COVID-19 vaccine series completed Diabetes Hepatorenal syndrome History of cardioversion History of prostate cancer History of ST elevation myocardial infarction (STEMI) HLD (hyperlipidemia) HTN (hypertension) Hx of Lyme disease Myocardial infarct, old Pancytopenia Persistent atrial fibrillation Prostate CA PVC (premature ventricular contraction) Symptomatic bradycardia Thrombocytopenia Tubular adenoma of colon Ventricular bigeminy Surgical History Surgical History History of cardiac pacemaker (~12/2020) History of cervical spinal surgery History of colonoscopy History of left inguinal hernia repair History of lumbar discectomy History of radical prostatectomy History of total right knee replacement (TKR) Social History Social History Household Members: Spouse Household Members Other:: dog Housing: House Are you a primary career development engineer to a significant other at home: No Do you presently have visiting nurse or other home services: Yes Alcohol intake: never Patient Tobacco Use Status: Former Tobacco user Quit Date: age 22's Tobacco use type: Cigarette Years Smoked: 10 Advance Directives Date on File: 01/04/23 service: Yes Current occupational status: retired Meds Allergies Allergy/AdvReac Type Severity Reaction Status Date / Time No Known Allergies Allergy Mild N/A Verified 11/10/22 14:50 Active Medications: Current Medications Acetaminophen (Acetaminophen 325 Mg Tablet) 650 mg PO Q6H PRN PRN Reason: Pain, Mild (Pain Scale 1-3) Albuterol/Ipratropium (Albuterol/Iprat 2.5/0.5mg 3 Ml Ampul.Neb) 3 ml INHALE RTID [facility] Atorvastatin Calcium (Atorvastatin Calcium 40 Mg Tablet) 40 mg PO BEDTIME [facility] Dronedarone (Dronedarone Hcl 400 Mg Tablet) 400 mg PO BID [facility] Enoxaparin Sodium (Enoxaparin Sodium 40 Mg/0.4 Ml Syringe) 40 mg SUBCUT Q24H [facility] Last Admin: 01/31/23 04:08 Dose: 40 mg Fluticasone Propionate (Fluticasone Propionate Nasal 16 Gm [place]) 1 spray NOSTRIL-B DAILY PRN PRN Reason: Allergy Symptoms Furosemide (Furosemide 20 Mg Tablet) 20 mg PO DAILY PRN; Protocol PRN Reason: Edema Glucose (Glucose Gel 15 Gm Gel..Gram.) 15 gm PO Q15M PRN; Protocol PRN Reason: per Hypoglycemia Standing Ord. Linezolid (Zyvox/D5w) 600 mg in 300 mls @ 300 mls/hr IV Q12H [facility] Last Admin: 01/31/23 16:52 Dose: 300 mls/hr Cefepime HCl 2 gm/ Sodium (Chloride) 50 mls @ 100 mls/hr IV Q8H [facility] Last Infusion: 01/31/23 14:04 Dose: Infused Dextrose (D10) 250 mls @ 750 mls/hr IV Q15M PRN; Protocol PRN Reason: per Hypoglycemia Standing Ord. Insulin Glargine (Insulin Glargine,Hum.Rec.Anlog 100 Unit/Ml 10 Ml Vial) 49 unit SUBCUT DAILY [facility] Insulin Human Lispro (Insulin Lispro 100 Unit/Ml 3 Ml Vial) 0 unit SUBCUT QIDACHS [facility]; Protocol Last Admin: 01/31/23 17:00 Dose: 8 unit Isosorbide Mononitrate (Isosorbide Mononitrate 30 Mg Tab.Er.24h) 30 mg PO DAILY [facility]; Protocol Melatonin (Melatonin 3 Mg Tablet) 6 mg PO BEDTIME PRN PRN Reason: Insomnia Metoprolol Succinate (Metoprolol Succinate Er 25 Mg Tab.Er.24h) 25 mg PO DAILY [facility]; Protocol Multivitamins/Vitamin C (Multivitamin Tablet) 1 tab PO DAILY [facility] Ondansetron HCl (Ondansetron Hcl 4 Mg/2 Ml Vial) 4 mg IVPUSH Q8H PRN PRN Reason: Nausea and Vomiting Oxycodone HCl (Oxycodone Hcl Immed Release 5 Mg Tablet) 5 mg PO QID PRN PRN Reason: Severe Pain (Scale Score 7-10) Pharmacy Consult (Consult Rx Perform Med Rec) 1 each MISCELLANE ONCE PRN PRN Reason: Consult order Pregabalin (Pregabalin 150 Mg Capsule) 150 mg PO QID PRN PRN Reason: Pain, Moderate Sodium Chloride (0.9 % Sodium Chloride Flush 3 Ml Syringe) 3 ml IVFLUSH QSHIFT [facility] Last Admin: 01/31/23 16:52 Dose: 3 ml Vitamin D (Cholecalciferol (Vitamin D3) 25 Mcg Tablet) 25 mcg PO DAILY [facility] Home Medications Medication Instructions Recorded Confirmed Last Taken Type insulin aspart U-100 100 unit/mL 1 sliding scale dose subcut 12/14/20 01/31/23 Unknown History subcutaneous solution (Novolog USEASDIRECTD U-100 Insulin aspart) ipratropium 20 mcg-albuterol 100 1 puff inhalation TID 12/14/20 01/31/23 10/24/22 07:00 History mcg/actuation mist for inhalation (Combivent Respimat) multivitamin 1 tab PO DAILY 12/14/20 01/31/23 Unknown History atorvastatin 40 mg tablet 40 mg PO BEDTIME 06/13/21 01/31/23 Unknown History pregabalin 150 mg capsule 150 mg PO QID PRN Pain, Moderate 06/13/21 01/31/23 Unknown History insulin degludec 100 unit/mL (3 70 unit subcut DAILY 10/20/22 01/31/2310/24/23 07:00 History mL) subcutaneous pen (Tresiba 30 units FlexTouch U-100 insulin) metoprolol succinate 25 mg 25 mg PO DAILY 01/04/23 01/31/23 Unknown History tablet,extended release 24 hr oxycodone 5 mg tablet 5 mg PO QID PRN Severe Pain (Scale 01/04/23 01/31/23 Unknown History Score 7-10) budesonide-formoterol HFA 80 2 puff inhalation BID 01/31/23 01/31/23 Unknown History mcg-4.5 mcg/actuation aerosol inhaler (Symbicort) cholecalciferol (vitamin D3) 25 25 mcg PO DAILY 01/31/23 01/31/23 Unknown Histor y mcg (1,000 unit) capsule (Vitamin D3) dronedarone 400 mg tablet ([place]) 400 mg PO BID 01/31/23 01/31/23 Unknown History fluticasone propionate 50 1 spray intranasal DAILY PRN 01/31/23 01/31/23 Unknown History mcg/actuation nasal Allergy Symptoms spray,suspension furosemide 20 mg tablet 20 mg PO DAILY PRN Edema 01/31/23 01/31/23 Unknown History vitamin B complex 1 tab PO DAILY 01/31/23 01/31/23 Unknown History Physical Exam Vital Signs: Vital Signs: Last Vital Signs Temp 97.6 F 01/31/23 15:04 Pulse 70 01/31/23 15:04 Resp 18 01/31/23 15:04 BP 121/56 L 01/31/23 15:04 Pulse Ox 98 01/31/23 15:04 O2 Del Method Room Air 01/31/23 15:04 BMI result Body Mass Index 25.1 Const: General: healthy appearing, no acute distress and well developed Orientation/consciousness: patient oriented x3 HEENT: Head: Yes normocephalic and Yes atraumatic Eyes: Conjunctivae: conjunctivae normal Neck: Neck: Yes normal visual inspection Chest: Chest palpation & inspection: normal inspection of the chest Resp: Effort & Inspection: normal respiratory effort Cardio: Rate: regular rate GI: Inspection: Yes normal to inspection Palpation (GI): Soft to palpation : Other: renteria in place urine clear Penis: normal penis Scrotum: scrotum normal Skin: General skin exam: no rashes or lesions noted Neuro: General: patient oriented x3 Psych: Appearance: grossly normal Affect: normal affect Results Labs 01/31/23 06:16 01/31/23 06:16 Labs: Abnormal lab results 01/31/23 01/31/23 01/31/23 Range/Units 02:42 02:42 04:17 RBC 3.56 L (4.60-5.80) X10*6/uL Hgb 11.0 L (14.0-18.0) g/dl Hct 33.4 L (42.0-52.0) % Plt Count 118 L (160-400) X10*3/uL Immature Gran % (Auto) 0.7 H (0.0-0.4) % Neut % (Auto) 73.8 H (45-73) % Lymph % (Auto) 13.7 L (20-40) % [place] % (Auto) (2-11) % Lymph # (Auto) 0.8 L (1.2-4.9) X10*3/uL Abs Immat Gran (auto) 0.04 H (0.00-0.03) X10*3/uL Sodium 133 L (135-145) mmol/L Anion Gap (12-20) BUN 27 H (9-16) mg/dL POC Glucose (60-115) mg/dL Random Glucose 320 H (60-115) mg/dL Urine Protein 30 (1+) H (Neg-Trace) mg/dL Urine Glucose (UA) >=1000 H (Negative) mg/dL Urine Blood Moderate (2+) H (Negative) Ur Leukocyte Esterase Large (3+) H (Negative) Urine WBC >50 H (0-5) /HPF 01/31/23 01/31/23 01/31/23 Range/Units 05:22 06:16 06:16 RBC 3.45 L (4.60-5.80) X10*6/uL Hgb 10.8 L (14.0-18.0) g/dl Hct 33.2 L (42.0-52.0) % Plt Count 115 L (160-400) X10*3/uL Immature Gran % (Auto) 0.8 H (0.0-0.4) % Neut % (Auto) (45-73) % Lymph % (Auto) 16.0 L (20-40) % [place] % (Auto) 12.4 H (2-11) % Lymph # (Auto) 1.0 L (1.2-4.9) X10*3/uL Abs Immat Gran (auto) 0.05 H (0.00-0.03) X10*3/uL Sodium (135-145) mmol/L Anion Gap 10 L (12-20) BUN 23 H (9-16) mg/dL POC Glucose 213 H (60-115) mg/dL Random Glucose 151 H (60-115) mg/dL Urine Protein (Neg-Trace) mg/dL Urine Glucose (UA) (Negative) mg/dL Urine Blood (Negative) Ur Leukocyte Esterase (Negative) Urine WBC (0-5) /HPF 01/31/23 01/31/23 01/31/23 Range/Units 07:21 11:12 15:45 RBC (4.60-5.80) X10*6/uL Hgb (14.0-18.0) g/dl Hct (42.0-52.0) % Plt Count (160-400) X10*3/uL Immature Gran % (Auto) (0.0-0.4) % Neut % (Auto) (45-73) % Lymph % (Auto) (20-40) % [place] % (Auto) (2-11) % Lymph # (Auto) (1.2-4.9) X10*3/uL Abs Immat Gran (auto) (0.00-0.03) X10*3/uL Sodium (135-145) mmol/L Anion Gap (12-20) BUN (9-16) mg/dL POC Glucose 166 H 332 H 304 H (60-115) mg/dL Random Glucose (60-115) mg/dL Urine Protein (Neg-Trace) mg/dL Urine Glucose (UA) (Negative) mg/dL Urine Blood (Negative) Ur Leukocyte Esterase (Negative) Urine WBC (0-5) /HPF Short CBC 01/31/23 01/31/23 Range/Units 02:42 06:16 WBC 5.8 6.1 (4.8-10.8) X10*3/uL Hgb 11.0 L 10.8 L (14.0-18.0) g/dl Hct 33.4 L 33.2 L (42.0-52.0) % Plt Count 118 L 115 L (160-400) X10*3/uL BMP 01/31/23 01/31/23 02:42 06:16 Sodium 133 L 138 Potassium 4.1 4.0 Chloride 99 105 Carbon Dioxide 24 27 BUN 27 H 23 H Creatinine 1.06 0.92 Calcium 9.2 9.2 Urine 01/31/23 Range/Units 04:17 Urine Color Yellow Urine Appearance Turbid Urine pH 6.0 (5.0-9.0) Ur Specific [place] 1.010 (1.005-1.025) Urine Protein 30 (1+) H (Neg-Trace) mg/dL Urine Glucose (UA) >=1000 H (Negative) mg/dL Imaging US - kidney/bladder: report reviewed Additional studies: Date of Service: 01/05/23 EXAMINATION: US RETROPERITONEAL COMPLETE (RENAL) CLINICAL INFORMATION: Hematuria. History of radical prostatectomy for history of prostate cancer. COMPARISON: Ultrasound abdomen complete 05/29/2022. CT abdomen and pelvis 05/10/2021. TECHNIQUE: Real-time imaging of the kidneys and bladder. FINDINGS: RIGHT KIDNEY: 12.6 x 5.9 x 5.4 cm (SAG x AP x TRV). The kidney is normal in size, contour, and echogenicity. Renal cortical thickness is normal. No renal calculi or hydronephrosis. There is a simple appearing cyst noted in the midpole measuring 1.3 cm in maximum dimension which does not require follow-up. LEFT KIDNEY: 11.9 x 6.7 x 6.2 cm (SAG x AP x TRV). The kidney is normal in size, contour, and echogenicity. Renal cortical thickness is normal. No renal calculi. There are numerous simple appearing cysts in the largest measuring approximately 5.1 cm in longest dimension which does not require follow-up. There appears to be mild hydronephrosis. BLADDER: Evaluation is limited due to Renteria catheter in place and Renteria catheter not being clamped with continuous bladder irrigation being performed.. Bilateral ureteral jets are not demonstrated. No focal mass/clot identified. IMPRESSION: Bilateral simple appearing renal cysts. ? Mild left hydronephrosis. Renteria catheter in place with limited evaluation of the bladder as described.. Assessment and Plan (1) Acute UTI: Status: Acute (2) Chronic indwelling Renteria catheter: Status: Acute (3) Recurrent UTI: Status: Acute (4) Hydronephrosis, left: Status: Acute Plan Recommend CT abd/pelvis without IV contrast. Time Spent With Patient Time: Total time managing care of this patient today ____ minutes. Procedures Date of Service Date of Service: 01/31/23
[2023-01-31 19:16] VITALS: BP 124/56; PULSE 70; RESP 18; TEMP 36.2; O2SAT 98
[2023-01-31 20:09] LABS: Glucose, Whole Blood 287 mg/dL (60-115)
[2023-01-31] MEDS: Dronedarone HCl 400 MG TABLET PO (20:19)
[2023-01-31] MEDS: Atorvastatin Calcium 40 MG TABLET PO (20:19)
--- NOTE | 2023-01-31 22:31 | P.CNID_ITS ---
History of Present Illness Data of Consult Service Date: 01/31/23 Primary Care Provider: Jewel Rebolledo MD [facility] Reason for consult: abdominal discomfort He has urinary discomfort after catheter change last week. He denies fever or chills. He sees Urology Review of Systems Review of Systems: Yes all other systems are reviewed and are negative [facility] Past Medical History Medical History (HFpEF) heart failure with preserved ejection fraction Acute retention of urine Bifascicular block CAD (coronary artery disease) Cardiac pacemaker in situ (~12/2020) CHF exacerbation COVID-19 vaccine series completed Diabetes Hepatorenal syndrome History of cardioversion History of prostate cancer History of ST elevation myocardial infarction (STEMI) HLD (hyperlipidemia) HTN (hypertension) Hx of Lyme disease Myocardial infarct, old Pancytopenia Persistent atrial fibrillation Prostate CA PVC (premature ventricular contraction) Symptomatic bradycardia Thrombocytopenia Tubular adenoma of colon Ventricular bigeminy Surgical History Surgical History History of cardiac pacemaker (~12/2020) History of cervical spinal surgery History of colonoscopy History of left inguinal hernia repair History of lumbar discectomy History of radical prostatectomy History of total right knee replacement (TKR) Social History Social History Household Members: Spouse Household Members Other:: dog Housing: House Are you a primary animal care technician to a significant other at home: No Do you presently have visiting nurse or other home services: Yes Alcohol intake: never Patient Tobacco Use Status: Former Tobacco user Quit Date: age 22's Tobacco use type: Cigarette Years Smoked: 10 Advance Directives Date on File: 01/04/23 service: Yes Current occupational status: retired Meds Allergies Allergy/AdvReac Type Severity Reaction Status Date / Time No Known Allergies Allergy Mild N/A Verified 11/10/22 14:50 Active Medications: Current Medications Acetaminophen (Acetaminophen 325 Mg Tablet) 650 mg PO Q6H PRN PRN Reason: Pain, Mild (Pain Scale 1-3) Albuterol/Ipratropium (Albuterol/Iprat 2.5/0.5mg 3 Ml Ampul.Neb) 3 ml INHALE RTID [place] Last Admin: 01/31/23 19:07 Dose: Not Given Atorvastatin Calcium (Atorvastatin Calcium 40 Mg Tablet) 40 mg PO BEDTIME COUNTS INCLUDE 234 BEDS AT THE [facility] Last Admin: 01/31/23 20:19 Dose: 40 mg Dronedarone (Dronedarone Hcl 400 Mg Tablet) 400 mg PO BID COUNTS INCLUDE 234 BEDS AT THE [facility] Last Admin: 01/31/23 20:19 Dose: 400 mg Enoxaparin Sodium (Enoxaparin Sodium 40 Mg/0.4 Ml Syringe) 40 mg SUBCUT Q24H COUNTS INCLUDE 234 BEDS AT THE [facility] Last Admin: 01/31/23 04:08 Dose: 40 mg Fluticasone Propionate (Fluticasone Propionate Nasal 16 Gm [place]) 1 spray NOSTRIL-B DAILY PRN PRN Reason: Allergy Symptoms Furosemide (Furosemide 20 Mg Tablet) 20 mg PO DAILY PRN; Protocol PRN Reason: Edema Glucose (Glucose Gel 15 Gm Gel..Gram.) 15 gm PO Q15M PRN; Protocol PRN Reason: per Hypoglycemia Standing Ord. Linezolid (Zyvox/D5w) 600 mg in 300 mls @ 300 mls/hr IV Q12H COUNTS INCLUDE 234 BEDS AT THE [facility] Last Infusion: 01/31/23 18:33 Dose: Infused Cefepime HCl 2 gm/ Sodium (Chloride) 50 mls @ 100 mls/hr IV Q8H COUNTS INCLUDE 234 BEDS AT THE [facility] Last Infusion: 01/31/23 20:09 Dose: Infused Dextrose (D10) 250 mls @ 750 mls/hr IV Q15M PRN; Protocol PRN Reason: per Hypoglycemia Standing Ord. Insulin Glargine (Insulin Glargine,Hum.Rec.Anlog 100 Unit/Ml 10 Ml Vial) 49 unit SUBCUT DAILY COUNTS INCLUDE 234 BEDS AT THE [facility] Insulin Human Lispro (Insulin Lispro 100 Unit/Ml 3 Ml Vial) 0 unit SUBCUT QIDACHS COUNTS INCLUDE 234 BEDS AT THE [facility]; Protocol Last Admin: 01/31/23 20:19 Dose: 6 unit Isosorbide Mononitrate (Isosorbide Mononitrate 30 Mg Tab.Er.24h) 30 mg PO DAILY COUNTS INCLUDE 234 BEDS AT THE [facility]; Protocol Melatonin (Melatonin 3 Mg Tablet) 6 mg PO BEDTIME PRN PRN Reason: Insomnia Metoprolol Succinate (Metoprolol Succinate Er 25 Mg Tab.Er.24h) 25 mg PO DAILY COUNTS INCLUDE 234 BEDS AT THE [facility]; Protocol Multivitamins/Vitamin C (Multivitamin Tablet) 1 tab PO DAILY COUNTS INCLUDE 234 BEDS AT THE [facility] Ondansetron HCl (Ondansetron Hcl 4 Mg/2 Ml Vial) 4 mg IVPUSH Q8H PRN PRN Reason: Nausea and Vomiting Oxycodone HCl (Oxycodone Hcl Immed Release 5 Mg Tablet) 5 mg PO QID PRN PRN Reason: Severe Pain (Scale Score 7-10) Pharmacy Consult (Consult Rx Perform Med Rec) 1 each MISCELLANE ONCE PRN PRN Reason: Consult order Pregabalin (Pregabalin 150 Mg Capsule) 150 mg PO QID PRN PRN Reason: Pain, Moderate Sodium Chloride (0.9 % Sodium Chloride Flush 3 Ml Syringe) 3 ml IVFLUSH QSHIFT COUNTS INCLUDE 234 BEDS AT THE [facility] Last Admin: 01/31/23 20:19 Dose: 3 ml Vitamin D (Cholecalciferol (Vitamin D3) 25 Mcg Tablet) 25 mcg PO DAILY COUNTS INCLUDE 234 BEDS AT THE [facility] Home Medications Medication Instructions Recorded Confirmed Last Taken Type insulin aspart U-100 100 unit/mL 1 sliding scale dose subcut 12/14/20 01/31/23 Unknown History subcutaneous solution (Novolog USEASDIRECTD U-100 Insulin aspart) ipratropium 20 mcg-albuterol 100 1 puff inhalation TID 12/14/20 01/31/23 10/24/22 07:00 History mcg/actuation mist for inhalation (Combivent Respimat) multivitamin 1 tab PO DAILY 12/14/20 01/31/23 Unknown History atorvastatin 40 mg tablet 40 mg PO BEDTIME 06/13/21 01/31/23 Unknown History pregabalin 150 mg capsule 150 mg PO QID PRN Pain, Moderate 06/13/21 01/31/23 Unknown History insulin degludec 100 unit/mL (3 70 unit subcut DAILY 10/20/22 01/31/23 10/24/22 07:00 History mL) subcutaneous pen (Tresiba 30 units FlexTouch U-100 insulin) metoprolol succinate 25 mg 25 mg PO DAILY 01/04/23 01/31/23 Unknown History tablet,extended release 24 hr oxycodone 5 mg tablet 5 mg PO QID PRN Severe Pain (Scale 01/04/23 01/31/23 Unknown History Score 7-10) budesonide-formoterol HFA 80 2 puff inhalation BID 01/31/23 01/31/23 Unknown History mcg-4.5 mcg/actuation aerosol inhaler (Symbicort) cholecalciferol (vitamin D3) 25 25 mcg PO DAILY 01/31/23 01/31/23 Unknown History mcg (1,000 unit) capsule (Vitamin D3) dronedarone 400 mg tablet (Multaq) 400 mg PO BID 01/31/23 01/31/23 Unknown History fluticasone propionate 50 1 spray intranasal DAILY PRN 01/31/23 01/31/23 Unknown History mcg/actuation nasal Allergy Symptoms spray,suspension furosemide 20 mg tablet 20 mg PO DAILY PRN Edema 01/31/23 01/31/23 Unknown History vitamin B complex 1 tab PO DAILY 01/31/23 01/31/23 Unknown History Physical Exam Vital Signs: Vital Signs: Last Vital Signs Temp 97.2 F 01/31/23 19:16 Pulse 70 01/31/23 19:16 Resp 18 01/31/23 19:16 BP 124/56 L 01/31/23 19:16 Pulse Ox 98 01/31/23 19:16 O2 Del Method Room Air 01/31/23 19:16 BMI result Body Mass Index 25.1 Results Labs 01/31/23 06:16 01/31/23 06:16 Labs: Short CBC 01/31/23 01/31/23 Range/Units 02:42 06:16 WBC 5.8 6.1 (4.8-10.8) X10*3/uL Hgb 11.0 L 10.8 L (14.0-18.0) g/dl Hct 33.4 L 33.2 L (42.0-52.0) % Plt Count 118 L 115 L (160-400) X10*3/uL BMP 01/31/23 01/31/23 02:42 06:16 Sodium 133 L 138 Potassium 4.1 4.0 Chloride 99 105 Carbon Dioxide 24 27 BUN 27 H 23 H Creatinine 1.06 0.92 Calcium 9.2 9.2 Urine 01/31/23 Range/Units 04:17 Urine Color Yellow Urine Appearance Turbid Urine pH 6.0 (5.0-9.0) Ur Specific [place] 1.010 (1.005-1.025) Urine Protein 30 (1+) H (Neg-Trace) mg/dL Urine Glucose (UA) >=1000 H (Negative) mg/dL Assessment and Plan (1) Hydronephrosis, left: Status: Acute (2) Recurrent UTI: Status: Acute He has recurrent UTI from bladder ,possible colonizion Plan Possibly Ceftin may help,10 days total follow Urology In[place] Time Spent With Patient Time: Total time managing care of this patient today ____ minutes.
[2023-02-01] MEDS: Acetaminophen 325 MG TABLET 650 MG PO ×2 (01:51→13:47)
[2023-02-01] MEDS: oxyCODONE HCl Immed Release 5 MG TABLET PO (01:51)
[2023-02-01] MEDS: cefEPime HCl 2 GM in 0.9 % Sodium Chloride 50 ML IV ×3 (03:11→20:36)
[2023-02-01 03:18] VITALS: BP 106/54; PULSE 70; RESP 18; TEMP 36.2; O2SAT 96
[2023-02-01] MEDS: Linezolid/D5W 600 MG/300 ML PIGGYBACK 300 MG IV ×2 (03:41→15:48)
[2023-02-01] MEDS: Enoxaparin Sodium 40 MG/0.4 ML SYRINGE SUBCUT (03:41)
[2023-02-01 07:35] LABS: Glucose, Whole Blood 267 mg/dL (60-115)
[2023-02-01 07:56] VITALS: BP 144/80; PULSE 71; RESP 20; TEMP 36.8; O2SAT 98
[2023-02-01] MEDS: Insulin Lispro 100 UNIT/ML 3 ML VIAL SUBCUT ×4 (08:32→20:37)
[2023-02-01] MEDS: Dronedarone HCl 400 MG TABLET PO ×2 (08:32→20:37)
[2023-02-01] MEDS: Insulin Glargine,Hum.rec.anlog 100 UNIT/ML 10 ML VIAL 49 UNIT SUBCUT (08:32)
[2023-02-01] MEDS: Cholecalciferol (Vitamin D3) 25 MCG TABLET PO (08:32)
[2023-02-01] MEDS: Multivitamin TABLET 1 TAB PO (08:32)
[2023-02-01] MEDS: Isosorbide Mononitrate 30 MG TAB.ER.24H PO (08:32)
[2023-02-01] MEDS: Metoprolol Succinate ER 25 MG TAB.ER.24H PO (08:32)
[2023-02-01] MEDS: Furosemide 20 MG TABLET PO (08:32)
[2023-02-01] MEDS: 0.9 % Sodium Chloride Flush 3 ML SYRINGE IVFLUSH ×3 (08:33→20:38)
--- NOTE | 2023-02-01 09:29 | P.PNIM_ITS ---
Subjective Subjective Date of Service: 02/01/23 Review of Systems Follow up UTI Physical Exam Vital Signs: Vital Signs: Last Vital Signs Temp 98.3 F 02/01/23 07:56 Pulse 71 02/01/23 07:56 Resp 20 02/01/23 07:56 BP 144/80 H 02/01/23 07:56 Pulse Ox 98 02/01/23 07:56 O2 Del Method Room Air 02/01/23 07:56 BMI result Body Mass Index 25.1 Appearing in no acute distress lung sounds are clear to auscultation heart regular rate rhythm, clear S1, S2 positive bowel sounds, abdomen is soft, nontender neuro patient is alert x3, no focal deficits Objective Data Active Medications Acetaminophen (Acetaminophen 325 Mg Tablet) 650 mg PO Q6H PRN PRN Reason: Pain, Mild (Pain Scale 1-3) Last Admin: 02/01/23 01:51 Dose: 650 mg Documented By: ODALYS Albuterol/Ipratropium (Albuterol/Iprat 2.5/0.5mg 3 Ml Ampul.Neb) 3 ml INHALE RTID [facility] Last Admin: 02/01/23 08:04 Dose: Not Given Documented By: INDRA Non-Admin Reason: Patient Refused Atorvastatin Calcium (Atorvastatin Calcium 40 Mg Tablet) 40 mg PO BEDTIME [facility] Last Admin: 01/31/23 20:19 Dose: 40 mg Documented By: ODALYS Dronedarone (Dronedarone Hcl 400 Mg Tablet) 400 mg PO BID [facility] Last Admin: 02/01/23 08:32 Dose: 400 mg Documented By: JOSE Enoxaparin Sodium (Enoxaparin Sodium 40 Mg/0.4 Ml Syringe) 40 mg SUBCUT Q24H [facility] Last Admin: 02/01/23 03:41 Dose: 40 mg Documented By: ODALYS Fluticasone Propionate (Fluticasone Propionate Nasal 16 Gm [place]) 1 spray NOSTRIL-B DAILY PRN PRN Reason: Allergy Symptoms Furosemide (Furosemide 20 Mg Tablet) 20 mg PO DAILY PRN; Protocol PRN Reason: Edema Last Admin: 02/01/23 08:32 Dose: 20 mg Documented By: JOSE Glucose (Glucose Gel 15 Gm Gel..Gram.) 15 gm PO Q15M PRN; Protocol PRN Reason: per Hypoglycemia Standing Ord. Linezolid (Zyvox/D5w) 600 mg in 300 mls @ 300 mls/hr IV Q12H [facility] Last Infusion: 02/01/23 04:48 Dose: 0 mls/hr Documented By: ODALYS Cefepime HCl 2 gm/ Sodium (Chloride) 50 mls @ 100 mls/hr IV Q8H [facility] Last Infusion: 02/01/23 03:49 Dose: 0 mls/hr Documented By: ODALYS Dextrose (D10) 250 mls @ 750 mls/hr IV Q15M PRN; Protocol PRN Reason: per Hypoglycemia Standing Ord. Insulin Glargine (Insulin Glargine,Hum.Rec.Anlog 100 Unit/Ml 10 Ml Vial) 49 unit SUBCUT DAILY [facility] Last Admin: 02/01/23 08:32 Dose: 49 unit Documented By: JOSE Insulin Human Lispro (Insulin Lispro 100 Unit/Ml 3 Ml Vial) 0 unit SUBCUT QIDACHS [facility]; Protocol Last Admin: 02/01/23 08:32 Dose: 6 unit Documented By: JOSE Comments: Breakfast late with cardiac trays Isosorbide Mononitrate (Isosorbide Mononitrate 30 Mg Tab.Er.24h) 30 mg PO DAILY [facility]; Protocol Last Admin: 02/01/23 08:32 Dose: 30 mg Documented By: JOSE Melatonin (Melatonin 3 Mg Tablet) 6 mg PO BEDTIME PRN PRN Reason: Insomnia Metoprolol Succinate (Metoprolol Succinate Er 25 Mg Tab.Er.24h) 25 mg PO DAILY [facility]; Protocol Last Admin: 02/01/23 08:32 Dose: 25 mg Documented By: JOSE Multivitamins/Vitamin C (Multivitamin Tablet) 1 tab PO DAILY [facility] Last Admin: 02/01/23 08:32 Dose: 1 tab Documented By: JOSE Ondansetron HCl (Ondansetron Hcl 4 Mg/2 Ml Vial) 4 mg IVPUSH Q8H PRN PRN Reason: Nausea and Vomiting Oxycodone HCl (Oxycodone Hcl Immed Release 5 Mg Tablet) 5 mg PO QID PRN PRN Reason: Severe Pain (Scale Score 7-10) Last Admin: 02/01/23 01:51 Dose: 5 mg Documented By: ODALYS Pharmacy Consult (Consult Rx Perform Med Rec) 1 each MISCELLANE ONCE PRN PRN Reason: Consult order Pregabalin (Pregabalin 150 Mg Capsule) 150 mg PO QID PRN PRN Reason: Pain, Moderate Sodium Chloride (0.9 % Sodium Chloride Flush 3 Ml Syringe) 3 ml IVFLUSH QSHIFT [facility] Last Admin: 02/01/23 08:33 Dose: 3 ml Documented By: JOSE Vitamin D (Cholecalciferol (Vitamin D3) 25 Mcg Tablet) 25 mcg PO DAILY [facility] Last Admin: 02/01/23 08:32 Dose: 25 mcg Documented By: JOSE Labs 01/31/23 06:16 01/31/23 06:16 Labs: Laboratory Results - last 24 hr 01/31/23 01/31/23 01/31/23 11:12 15:45 20:03 POC Glucose 332 H 304 H 287 H 02/01/23 07:32 POC Glucose 267 H Microbiology Microbiology Results: Microbiology 01/31/23 Unknown Urine Culture - Preliminary Urine clean catch - Urine purvis top Culture in progress. 01/31/23 02:42 Blood Culture - Preliminary Blood - Venous No growth after 24 hours. 01/31/23 02:42 Blood Culture - Preliminary Blood - Venous No growth after 24 hours. Assessment and Plan (1) Hydronephrosis, left: Status: Acute Plan This is a 87-year-old male with pertinent history of congestive heart failure with preserved ejection fraction, insulin-dependent diabetes mellitus, persistent atrial fibrillation, essential hypertension, mixed hyperlipidemia,? chronic thrombocytopenia, urinary retention on chronic Renteria who presents to the emergency department for evaluation of dysuria and suprapubic pain. Acute UTI.? failed p.o. antibiotics.? Previous urine culture with Pseudomonas and VRE.? Initiating empiric IV antibiotics.? Consulting ID>likely some degree of colonization, Ceftin 10 days on dc GI consult>rec abd CT, showing mild bilateral hydronephrosis and ureteral dilatation down to the bladder with diffuse bladder wall thickening, continue IV abx and renteria cath insulin-dependent diabetes mellitus with hyperglycemia.? Continue basal plus regimen.? Neuropathy pregabalin /gabapentin Persistent atrial fibrillation.? Anticoagulation discontinued during previous hospitalization due to hematuria.? Rate controlled in the ER. Congestive heart failure with preserved ejection fraction.? Compensated Chronic thrombocytopenia.? Stable essential hypertension.? Continue home antihypertensives mixed hyperlipidemia.? On statin DVT prophylaxis:? Lovenox Full code Attending Dr. Penn continued hospital stay IV antibiotics.? Specialist consult pending Time Spent With Patient Time: Total time managing care of this patient today ____ minutes. Quality Stroke Does the patient have a stroke diagnosis?: No VTE Prior VTE?: No VTE Risk Level:: Medical - moderate - high VTE Device Contraindication: Treatment Not Indicated VTE Drug Contraindication: N/A - Med Ordered
[2023-02-01] MEDS: Pregabalin 150 MG CAPSULE PO ×3 (09:55→20:37)
--- NOTE | 2023-02-01 11:11 | PM.UROPN ---
Subjective Subjective Date of Service: 04/29/23 Interval history: 87-year-old male with pertinent history of? prostate cancer? status post radical prostatectomy followed by radiation,? currently with chronic renteria. Recurrent UTI. Urine culture on 01/23 with Pseudomonas and VRE.? Pt on Cefepime and Linezolid.?CT findings mild bilateral hydronephrosis likely secondry to Bladder wall thickening/Cystitis no ureteral or renal stones Physical Exam Vital Signs: Vital Signs: Last Vital Signs Temp 98.3 F 02/01/23 07:56 Pulse 71 02/01/23 07:56 Resp 20 02/01/23 07:56 BP 144/80 H 02/01/23 07:56 Pulse Ox 98 02/01/23 07:56 O2 Del Method Room Air 02/01/23 07:56 BMI result Body Mass Index 25.1 Const: General: healthy appearing, no acute distress and well developed Orientation/consciousness: patient oriented x3 HEENT: Head: Yes normocephalic and Yes atraumatic Eyes: Conjunctivae: conjunctivae normal Neck: Neck: Yes normal visual inspection Chest: Chest palpation & inspection: normal inspection of the chest Resp: Effort & Inspection: normal respiratory effort Cardio: Rate: regular rate GI: Inspection: Yes normal to inspection Skin: General skin exam: no rashes or lesions noted Neuro: General: patient oriented x3 Psych: Appearance: grossly normal Affect: normal affect Urology Results Labs 01/31/23 06:16 01/31/23 06:16 Labs: Laboratory Results - last 24 hr 01/31/23 01/31/23 01/31/23 11:12 15:45 20:03 POC Glucose 332 H 304 H 287 H 02/01/23 07:32 POC Glucose 267 H Date of Service: 01/31/23 EXAMINATION: CT ABDOMEN AND PELVIS WITHOUT CONTRAST? CLINICAL INFORMATION: UTI. Left hydronephrosis.? COMPARISON: Previous renal ultrasound December 2022 TECHNIQUE: Multidetector volumetric imaging was performed from the superior aspect of the liver through the pubic symphysis. Sagittal and coronal reformatted images were obtained on the technologist's workstation.? This CT examination was performed using dose optimization techniques as appropriate, variously including the following: *Automated exposure control *Adjustment of mA and/or kV according to patient size (this includes techniques or standardized protocols for targeted exams where dose is matched to indication/reason for exam; i.e. extremities or head) *Use of iterative reconstruction technique DLP: 733 mGy-cm FINDINGS: LUNG BASES: Increased peripheral reticular markings questionable for mild interstitial lung disease.? LIVER, GALLBLADDER, AND BILIARY TREE: The liver is normal in size, shape, and attenuation. No focal hepatic lesion or biliary ductal dilatation is present. Small gallstones in the gallbladder. PANCREAS: Unremarkable.? SPLEEN: Unremarkable.? ADRENAL GLANDS: Unremarkable.? KIDNEYS AND URETERS: 4 x 6 cm cyst in the upper pole of the left kidney. No imaging follow-up recommended. Mild bilateral hydronephrosis and ureteral dilatation down to the bladder. BLADDER: The bladder wall is diffusely thickened. There is a Renteria catheter in the bladder. There is a small amount of fluid and air in the bladder.? GASTROINTESTINAL TRACT: Diverticulosis of the colon. No evidence of diverticulitis. Small and large bowel is otherwise normal. The appendix is normal. The stomach is normal.? ABDOMINAL WALL: No significant hernia is appreciated.? LYMPH NODES: Normal. VASCULAR: Severe atherosclerotic disease. The abdominal aorta is tortuous. No aneurysm. PELVIC VISCERA: Surgical clips in the pelvis. The prostate gland appears to have been removed.? OSSEOUS STRUCTURES: Degenerative changes of the spine. Mild 2 mm anterior subluxation of L3 with respect to L2 and L4. Surgical hardware in between the posterior elements/spinous processes of L3 and L4. Mild scoliosis. Mild degenerative changes of the hip joints. IMPRESSION: Mild bilateral hydronephrosis and ureteral dilatation down to the bladder. The bladder wall is diffusely thickened. There is a Renteria catheter in the bladder. There is a small amount of fluid and air in the bladder.? Gallstones. Diverticulosis of the colon. ? Progress Note: A&P Assessment and plan (1) History of prostate cancer: Status: Resolved (2) Recurrent UTI: Status: Inactive (3) Acute UTI: Status: Resolved Plan IV Antibiotics Cont renteria for now Time Spent With Patient Time: Total time managing care of this patient today ____ minutes. Progress Note: Quality Stroke Does the patient have a stroke diagnosis?: No
[2023-02-01 11:52] LABS: Glucose, Whole Blood 341 mg/dL (60-115)
[2023-02-01 15:27] VITALS: BP 106/52; PULSE 70; RESP 18; TEMP 36.4; O2SAT 98
[2023-02-01 16:33] LABS: Glucose, Whole Blood 345 mg/dL (60-115)
[2023-02-01 19:31] VITALS: BP 120/68; PULSE 72; RESP 16; TEMP 36.2; O2SAT 96
[2023-02-01 20:08] LABS: Glucose, Whole Blood 337 mg/dL (60-115)
[2023-02-01] MEDS: Atorvastatin Calcium 40 MG TABLET PO (20:37)
[2023-02-01] MEDS: Mirtazapine 7.5 MG TABLET PO (20:37)
--- NOTE | 2023-02-01 22:33 | PM.EVENT ---
Event Note Date of Service: 02/01/23 Event Note: patient on Cefepime and linezolid continue pending urine culture and blood culture Time Spent With Patient Time: Total time managing care of this patient today ____ minutes.
[2023-02-02 03:24] VITALS: BP 110/60; PULSE 70; RESP 16; TEMP 36.8; O2SAT 97
[2023-02-02] MEDS: cefEPime HCl 2 GM in 0.9 % Sodium Chloride 50 ML IV ×2 (03:49→11:18)
[2023-02-02] MEDS: Linezolid/D5W 600 MG/300 ML PIGGYBACK 300 MG IV ×2 (04:19→16:28)
[2023-02-02] MEDS: Enoxaparin Sodium 40 MG/0.4 ML SYRINGE SUBCUT (04:19)
[2023-02-02 07:18] VITALS: BP 125/68; PULSE 71; RESP 18; TEMP 36.1; O2SAT 97
[2023-02-02 07:23] LABS: Glucose, Whole Blood 265 mg/dL (60-115)
[2023-02-02] MEDS: Isosorbide Mononitrate 30 MG TAB.ER.24H PO (07:50)
[2023-02-02] MEDS: 0.9 % Sodium Chloride Flush 3 ML SYRINGE IVFLUSH ×2 (07:51→16:28)
[2023-02-02] MEDS: Insulin Lispro 100 UNIT/ML 3 ML VIAL SUBCUT ×3 (07:51→11:59)
[2023-02-02] MEDS: Cholecalciferol (Vitamin D3) 25 MCG TABLET PO (07:51)
[2023-02-02] MEDS: Metoprolol Succinate ER 25 MG TAB.ER.24H PO (07:51)
[2023-02-02] MEDS: Multivitamin TABLET 1 TAB PO (07:51)
[2023-02-02] MEDS: Dronedarone HCl 400 MG TABLET PO (07:51)
--- NOTE | 2023-02-02 09:24 | P.PNIM_ITS ---
Subjective Subjective Date of Service: 02/02/23 Review of Systems Follow up UTI still with bladder pain Physical Exam Vital Signs: Vital Signs: Last Vital Signs Temp 97.0 F 02/02/23 07:18 Pulse 71 02/02/23 07:18 Resp 18 02/02/23 07:18 BP 125/68 02/02/23 07:18 Pulse Ox 97 02/02/23 07:18 O2 Del Method Room Air 02/02/23 07:18 BMI result Body Mass Index 25.1 Appearing in no acute distress lung sounds are clear to auscultation heart regular rate rhythm, clear S1, S2 positive bowel sounds, abdomen is soft, nontender neuro patient is alert x3, no focal deficits Objective Data Active Medications Acetaminophen (Acetaminophen 325 Mg Tablet) 650 mg PO Q6H PRN PRN Reason: Pain, Mild (Pain Scale 1-3) Last Admin: 02/01/23 13:47 Dose: 650 mg Documented By: JOSE Albuterol/Ipratropium (Albuterol/Iprat 2.5/0.5mg 3 Ml Ampul.Neb) 3 ml INHALE RTID [facility] Last Admin: 02/01/23 19:15 Dose: Not Given Documented By: STONE Non-Admin Reason: Patient Refused Atorvastatin Calcium (Atorvastatin Calcium 40 Mg Tablet) 40 mg PO BEDTIME [facility] Last Admin: 02/01/23 20:37 Dose: 40 mg Documented By: STEPHANIE Dronedarone (Dronedarone Hcl 400 Mg Tablet) 400 mg PO BID [facility] Last Admin: 02/02/23 07:51 Dose: 400 mg Documented By: KENRICK Enoxaparin Sodium (Enoxaparin Sodium 40 Mg/0.4 Ml Syringe) 40 mg SUBCUT Q24H [facility] Last Admin: 02/02/23 04:19 Dose: 40 mg Documented By: BAILEE Fluticasone Propionate (Fluticasone Propionate Nasal 16 Gm Monarch) 1 spray NOSTRIL-B DAILY PRN PRN Reason: Allergy Symptoms Furosemide (Furosemide 20 Mg Tablet) 20 mg PO DAILY PRN; Protocol PRN Reason: Edema Last Admin: 02/01/23 08:32 Dose: 20 mg Documented By: JOSE Glucose (Glucose Gel 15 Gm Gel..Gram.) 15 gm PO Q15M PRN; Protocol PRN Reason: per Hypoglycemia Standing Ord. Linezolid (Zyvox/D5w) 600 mg in 300 mls @ 300 mls/hr IV Q12H [facility] Last Infusion: 02/02/23 05:20 Dose: 0 mls/hr Documented By: BAILEE Cefepime HCl 2 gm/ Sodium (Chloride) 50 mls @ 100 mls/hr IV Q8H [facility] Last Infusion: 02/02/23 04:19 Dose: 0 mls/hr Documented By: BAILEE Dextrose (D10) 250 mls @ 750 mls/hr IV Q15M PRN; Protocol PRN Reason: per Hypoglycemia Standing Ord. Insulin Glargine (Insulin Glargine,Hum.Rec.Anlog 100 Unit/Ml 10 Ml Vial) 49 unit SUBCUT DAILY [facility] Last Admin: 02/01/23 08:32 Dose: 49 unit Documented By: JOSE Insulin Human Lispro (Insulin Lispro 100 Unit/Ml 3 Ml Vial) 0 unit SUBCUT QIDACHS [facility]; Protocol Last Admin: 02/02/23 07:51 Dose: 6 unit Documented By: KENRICK Isosorbide Mononitrate (Isosorbide Mononitrate 30 Mg Tab.Er.24h) 30 mg PO DAILY [facility]; Protocol Last Admin: 02/02/23 07:50 Dose: 30 mg Documented By: KENRICK Melatonin (Melatonin 3 Mg Tablet) 6 mg PO BEDTIME PRN PRN Reason: Insomnia Metoprolol Succinate (Metoprolol Succinate Er 25 Mg Tab.Er.24h) 25 mg PO DAILY [facility]; Protocol Last Admin: 02/02/23 07:51 Dose: 25 mg Documented By: KENRICK Mirtazapine (Mirtazapine 7.5 Mg Tablet) 7.5 mg PO BEDTIME PRN PRN Reason: insomnia Last Admin: 02/01/23 20:37 Dose: 7.5 mg Documented By: STEPHANIE Multivitamins/Vitamin C (Multivitamin Tablet) 1 tab PO DAILY [facility] Last Admin: 02/02/23 07:51 Dose: 1 tab Documented By: KENRICK Ondansetron HCl (Ondansetron Hcl 4 Mg/2 Ml Vial) 4 mg IVPUSH Q8H PRN PRN Reason: Nausea and Vomiting Oxycodone HCl (Oxycodone Hcl Immed Release 5 Mg Tablet) 5 mg PO QID PRN PRN Reason: Severe Pain (Scale Score 7-10) Last Admin: 02/01/23 01:51 Dose: 5 mg Documented By: ODALYS Pharmacy Consult (Consult Rx Perform Med Rec) 1 each MISCELLANE ONCE PRN PRN Reason: Consult order Phenazopyridine HCl (Phenazopyridine Hcl 200 Mg Tablet) 200 mg PO TIDWM [facility] Stop: 02/03/23 17:01 Pregabalin (Pregabalin 150 Mg Capsule) 150 mg PO QID PRN PRN Reason: Pain, Moderate Last Admin: 02/01/23 20:37 Dose: 150 mg Documented By: STEPHANIE Sodium Chloride (0.9 % Sodium Chloride Flush 3 Ml Syringe) 3 ml IVFLUSH QSHIFT [facility] Last Admin: 02/02/23 07:51 Dose: 3 ml Documented By: KENRICK Vitamin D (Cholecalciferol (Vitamin D3) 25 Mcg Tablet) 25 mcg PO DAILY [facility] Last Admin: 02/02/23 07:51 Dose: 25 mcg Documented By: KENRICK Labs 01/31/23 06:16 01/31/23 06:16 Labs: Laboratory Results - last 24 hr 02/01/23 02/01/23 02/01/23 11:48 16:23 19:42 POC Glucose 341 H 345 H 337 H 02/02/23 07:20 POC Glucose 265 H Microbiology Microbiology Results: Microbiology 01/31/23 Unknown Urine Culture - Final Urine clean catch - Urine purvis top 01/31/23 02:42 Blood Culture - Preliminary Blood - Venous No growth after 48 hours. 01/31/23 02:42 Blood Culture - Preliminary Blood - Venous No growth after 48 hours. Assessment and Plan (1) Hydronephrosis, left: Status: Acute Plan This is a 87-year-old male with pertinent history of congestive heart failure with preserved ejection fraction, insulin-dependent diabetes mellitus, persistent atrial fibrillation, essential hypertension, mixed hyperlipidemia,? chronic thrombocytopenia, urinary retention on chronic Mena who presents to the emergency department for evaluation of dysuria and suprapubic pain. Acute UTI.? Previous urine culture with Pseudomonas and VRE.? Initiating empiric IV antibiotics.? Consulting ID>likely some degree of colonization, Ceftin 10 days on dc GI consult>rec abd CT, showing mild bilateral hydronephrosis and ureteral dilatation down to the bladder with diffuse bladder wall thickening, continue IV abx, voiding trial today Pyridium for bladder pain insulin-dependent diabetes mellitus with hyperglycemia.? Continue basal plus regimen.? Neuropathy pregabalin /gabapentin Persistent atrial fibrillation.? Anticoagulation discontinued during previous hospitalization due to hematuria.? Rate controlled in the ER. Congestive heart failure with preserved ejection fraction.? Compensated Chronic thrombocytopenia.? Stable essential hypertension.? Continue home antihypertensives mixed hyperlipidemia.? On statin DVT prophylaxis:? Lovenox Full code Attending Dr. Larkin continued hospital stay IV antibiotics.? Specialist consult pending Time Spent With Patient Time: Total time managing care of this patient today ____ minutes. Quality Stroke Does the patient have a stroke diagnosis?: No VTE Prior VTE?: No VTE Risk Level:: Medical - moderate - high VTE Device Contraindication: Treatment Not Indicated VTE Drug Contraindication: N/A - Med Ordered
[2023-02-02] MEDS: Insulin Glargine,Hum.rec.anlog 100 UNIT/ML 10 ML VIAL 49 UNIT SUBCUT (10:09)
--- NOTE | 2023-02-02 10:25 | PC.NURSE ---
Mnea cath removed at 1015. slight urine dribbling with blood
[2023-02-02 11:24] LABS: Glucose, Whole Blood 460 mg/dL (60-115)
[2023-02-02 11:36] LABS: Glucose, Whole Blood 397 mg/dL (60-115)
[2023-02-02] MEDS: Phenazopyridine HCL 200 MG TABLET PO ×2 (11:58→17:55)
--- NOTE | 2023-02-02 14:13 | MHC.CM.PN ---
Per MD rounds Voiding trial today. Patient may discharge later today. DP home self care. Patient will arrange for a ride home.
--- NOTE | 2023-02-02 14:15 | MHC.CM.PN ---
Addendum entered by Sarah Hunter 02/02/23 14:16: [facility] will resume services at discharge. Original Note: Per MD rounds Voiding trial today. DP home self care. He will arrange for transport home.
[2023-02-02 15:35] VITALS: BP 114/61; PULSE 74; RESP 18; TEMP 36.3; O2SAT 97
[2023-02-02 16:40] LABS: Glucose, Whole Blood 78 mg/dL (60-115)
--- NOTE | 2023-02-02 16:42 | PC.NURSE ---
Patient very upset and complaining he requested to talk to the doctor and no doctor came to talk to him,Kamar Santos notified and wiil come in and talk to the patient,nurse encouraged patient to ask for help,and offered assistance
--- NOTE | 2023-02-02 18:09 | W.MHC.F2F ---
Service Date Service Date: 02/02/23 Encounter Date of encounter: 02/02/23 Reasons for Services Signs and symptoms assessed: Pseudomonas aeruginosa UTI Reason for shelter: CV/CP assess and/or care and GI/ assessment Homebound: Leaving the home is medically contraindicated at this time without the asist of a device and/or another person due th the listed conditions above and below. Reason homebound: unsteady gait / fall risk Certification: Based on the above findings, I certify that this patient is confined to the home and needs intermittent shelter care, physical therapy and/or speech therapy, or continues to need occupational therapy. The patient is under my care, and I have initiated the establishment of the plan of care. The patient will be followed by a physician who will periodically review the plan of care. Time Spent With Patient Time: Total time managing care of this patient today ____ minutes.
--- NOTE | 2023-02-02 18:09 | PM.DS ---
DS: Providers Provider Date of Service: 02/02/23 Date of admission: 01/31/23 03:43 Primary care physician: Jewel Rebolledo MD Consults: 01/31/23 03:44 Consult to Infectious Diseases [place]ine [place] [facility] [place] Reason for consultation: UTI 01/31/23 15:00 Consult to Urology Routine Consulting Provider: Ed Ramirez Reason for consultation: bladder irritation DS: Diagnosis Discharge Diagnosis (1) Hydronephrosis, left: Status: Acute DS: Summary Hospital Course Hospital Course: HP as per admitting provider This is a 87-year-old male with pertinent history of congestive heart failure with preserved ejection fraction, insulin-dependent diabetes mellitus, persistent atrial fibrillation, essential hypertension, mixed hyperlipidemia,? chronic thrombocytopenia, urinary retention on chronic Mena who presents to the emergency department for evaluation of dysuria and suprapubic pain.? Patient was seen in the ER on 01/23 and discharged on oral cephalosporin.? Patient states he his symptoms continued despite the oral antibiotic.? He is here with worsening dysuria and suprapubic discomfort comfort.? Patient denies fever, chills, nausea, vomiting, chest discomfort, shortness of breath,? palpitations, changes in bowel habits. Upon chart review, urine culture on 01/23 with Pseudomonas and VRE . Acute UTI.? Previous urine culture with Pseudomonas and VRE.? Treated with IV antibiotics.? Consulting ID>likely some degree of colonization, linezolid and levaquin for 7 days on dc Mena catheter removed, may use [place] cath at nightime Pyridium for bladder pain insulin-dependent diabetes mellitus with hyperglycemia.? continue home medications Neuropathy pregabalin /gabapentin Persistent atrial fibrillation.? Anticoagulation discontinued during previous hospitalization due to hematuria.? Rate controlled in the ER. Congestive heart failure with preserved ejection fraction.? Compensated Chronic thrombocytopenia.? Stable essential hypertension.? Continue home antihypertensives mixed hyperlipidemia.? On statin Time Spent with Patient Time attestation: Total time managing care of this patient today ____ minutes. Discharge coordination time: Greater than 30 minutes Quality: Safe Use of Opioids Does Pt have an Active Cancer Diagnosis on the Problem List?: No Quality: Stroke Does the patient have a stroke diagnosis?: No Physical Exam Vital Signs: Vital Signs: Last Vital Signs Temp 97.3 F 02/02/23 15:35 Pulse 74 02/02/23 15:35 Resp 18 02/02/23 15:35 BP 114/61 02/02/23 15:35 Pulse Ox 97 02/02/23 15:35 O2 Del Method Room Air 02/02/23 15:35 BMI result Body Mass Index 25.1 Appearing in no acute distress head is normocephalic atraumatic eyes pupils are PERRLA sclera is anicteric mouth throat mucous membranes are intact and moist neck is supple no lymphadenopathy, no JVD noted lung sounds are clear to auscultation heart regular rate rhythm, clear S1, S2 positive bowel sounds, abdomen is soft, nontender neuro patient is alert x3, no focal deficits DS: Data Data Completed and Pending Completed studies during hospitalization [Text1]: Procedures Insertion of Infusion Device into Superior Vena Cava, Percutaneous Approach (12/29/20) Insertion of Pacemaker Lead into Right Atrium, Percutaneous Approach (12/29/20) Insertion of Pacemaker Lead into Right Ventricle, Percutaneous Approach (12/29/20) Insertion of Pacemaker, Dual Chamber into Chest Subcutaneous Tissue and Fascia, Open Approach (12/29/20) Irrigation of Genitourinary Tract using Irrigating Substance, Via Natural or Artificial Opening (01/04/23) Labs on day of discharge: Laboratory Results - last 24 hr 02/01/23 02/02/23 02/02/23 19:42 07:20 11:21 POC Glucose 337 H 265 H 460 H* 02/02/23 02/02/23 11:32 16:34 POC Glucose 397 H* 78 Preliminary micro results at discharge 01/31/23 02:42 Blood Culture - Preliminary Blood - Venous No growth after 48 hours. 01/31/23 02:42 Blood Culture - Preliminary Blood - Venous No growth after 48 hours. Discharge Plan Discharge Anticipated Discharge Date/Time: 02/02/23 18:03 Patient Disposition: Home Health Service Discharge Diagnosis: Acute UTI Referrals: Jewel Rebolledo MD [Primary Care Provider] - 1 Week Discharge Medications: New phenazopyridine 200 mg Tablet 200 mg PO TIDWM Qty: 14 0RF linezolid 600 mg tablet 600 mg PO BID Qty: 14 0RF levofloxacin 500 mg tablet 500 mg PO DAILY Qty: 7 0RF Continued Combivent Respimat 20-100 mcg/actuation mist 1 puff inhalation TID multivitamin Tablet 1 tab PO DAILY insulin aspart U-100 [Novolog U-100 Insulin aspart] 100 unit/mL Solution 1 sliding scale dose SUBCUT USEASDIRECTD insulin degludec [Tresiba FlexTouch U-100] 100 unit/mL (3 mL) insulin pen 70 unit subcut DAILY metoprolol succinate 25 mg tablet extended release 24 hr 25 mg PO DAILY oxycodone 5 mg tablet 5 mg PO QID PRN (Reason: Severe Pain (Scale Score 7-10)) vitamin B complex Tablet 1 tab PO DAILY fluticasone propionate 50 mcg/actuation spray,suspension 1 spray INTRANASAL DAILY PRN (Reason: Allergy Symptoms) cholecalciferol (vitamin D3) [Vitamin D3] 25 mcg (1,000 unit) Capsule 25 mcg PO DAILY budesonide-formoterol [Symbicort] 80-4.5 mcg/actuation HFA aerosol inhaler 2 puff inhalation BID Multaq 400 mg tablet 400 mg PO BID furosemide 20 mg Tablet 20 mg PO DAILY PRN (Reason: Edema) atorvastatin 40 mg tablet 40 mg PO BEDTIME pregabalin 150 mg capsule 150 mg PO QID PRN (Reason: Pain, Moderate) isosorbide mononitrate 30 mg tablet extended release 24 hr 30 mg PO DAILY Qty: 30 3RF Discharge Orders: Discharge Order (Routine); Ordered 02/02/23 Ordered By: Clau Franco Diet: Advance to usual diet Activity on Discharge: As tolerated Stand Alone Forms: Patient Portal Discharge page Care Plan Goals: Follow-up with urologist at previously scheduled appointment Health Concerns: Acute UTI Plan of Treatment: Follow-up with primary care provider as needed Take all medications as prescribed Assessment: See discharge summary
== END 2023-02-02 19:00 | disposition home health service (06) | DRG 690 ==
LOC: HO.ED 03:44 → HO.EDOVER 03:47 → HO.S3 07:48
PROVIDERS: Admitting Provider Student in an Organized Health Care Education/Training Program; Emergency Provider Emergency Medicine; PCP Internal Medicine; Visit Provider Nurse Practitioner Acute Care
DX: N13.6 Pyonephrosis (principal); I48.19 Other persistent atrial fibrillation; I50.32 Chronic diastolic (congestive) heart failure; E78.2 Mixed hyperlipidemia; D69.6 Thrombocytopenia, unspecified; Z95.0 Presence of cardiac pacemaker; I25.10 Atherosclerotic heart disease of native coronary artery without angina pectoris; I25.2 Old myocardial infarction; E11.40 Type 2 diabetes mellitus with diabetic neuropathy, unspecified; E11.65 Type 2 diabetes mellitus with hyperglycemia; I11.0 Hypertensive heart disease with heart failure; Z85.46 Personal history of malignant neoplasm of prostate; Z90.79 Acquired absence of other genital organ(s); Z87.440 Personal history of urinary (tract) infections; Z87.891 Personal history of nicotine dependence; Z92.3 Personal history of irradiation; Z79.4 Long term (current) use of insulin; Z79.899 Other long term (current) drug therapy
CPT/HCPCS: 36415; 74176; 80048; 81001; 82947; 83605; 85025; 87040; 87086; 99285; J0692; J1650; J2020

== ENCOUNTER → 2023-01-31 03:43 | Outpatient (BNV) | payer MEDICARE, SELFPAY | PROVIDERS: Admitting Provider Student in an Organized Health Care Education/Training Program; Emergency Provider Emergency Medicine; PCP Internal Medicine; Visit Provider Urology | DX: N39.0 Urinary tract infection, site not specified (principal); Z85.46 Personal history of malignant neoplasm of prostate | CPT/HCPCS: 99222; 99232 ==

== ENCOUNTER → 2023-02-05 08:23 | Outpatient (BNVA) | payer MEDICARE, SELFPAY | PROVIDERS: PCP Internal Medicine; Visit Provider Urology | DX: N39.0 Urinary tract infection, site not specified (principal); R32 Unspecified urinary incontinence; Z85.46 Personal history of malignant neoplasm of prostate | CPT/HCPCS: 51798; 99212 ==

== ENCOUNTER → 2023-02-09 13:10 | Outpatient (BNVA) | payer MEDICARE, SELFPAY | PROVIDERS: PCP Internal Medicine; Referring Provider Internal Medicine; Visit Provider Internal Medicine Cardiovascular Disease | DX: I50.30 Unspecified diastolic (congestive) heart failure (principal); I48.0 Paroxysmal atrial fibrillation; Z95.0 Presence of cardiac pacemaker | CPT/HCPCS: 93005; 93280; 99212 ==

== ENCOUNTER 2023-03-11 10:30 | Outpatient (REF) | payer MEDICARE, SELFPAY ==
[2023-03-11 13:01] LABS: MANUAL DIFF FLAG NO
[2023-03-11 13:35] LABS: Basophils Percent Auto 0.3 % (0-2); Eosinophils Absolute Auto 0.1 X10*3/uL (0.0-0.4); Eosinophils Percent Auto 1.8 % (0-4); Hematocrit 37.2 % (42.0-52.0); Hemoglobin 11.5 g/dl (14.0-18.0); Imm Gran Abs Auto 0.04 X10*3/uL (0.00-0.03); Imm Gran Pct Auto 1.2 % (0.0-0.4); Lymphocytes Absolute Auto 0.7 X10*3/uL (1.2-4.9); Lymphocytes Percent Auto 21.9 % (20-40); Mean Corpuscular HGB Conc 30.9 g/dl (31.0-36.0); Mean Corpuscular Hemoglobin 31.3 pg (27.0-33.0); Mean Corpuscular Volume 101.1 fL (80.0-98.0); Mean Platelet Volume 10.3 fL (9.4-12.4); Monocytes Absolute Auto 0.3 X10*3/uL (0.1-1.2); Monocytes Percent Auto 10.1 % (2-11); Neutrophils Absolute Auto 2.2 x10*3/uL (2.0-8.3); Neutrophils Percent Auto 64.7 % (45-73); Platelet Count 103 X10*3/uL (160-400); Red Blood Count 3.68 X10*6/uL (4.60-5.80); White Blood Count 3.4 X10*3/uL (4.8-10.8)
[2023-03-11 15:18] LABS: Estimated Average Glucose 148 mg/dL; Hemoglobin A1C 152.6193 umol/L; Hemoglobin A1c % 6.8 %
[2023-03-12 01:52] LABS: Alanine Aminotransferase 46 U/L (0-40); Albumin Level 3.6 g/dL (3.5-5.0); Alkaline Phosphatase 78 U/L (39-117); Anion Gap 9 (12-20); Aspartate Amino Transferase 44 U/L (5-37); Bilirubin Total 0.6 mg/dL (0.0-1.0); Blood Urea Nitrogen 23 mg/dL (9-16); Calcium 9.3 mg/dL (8.4-10.2); Carbon Dioxide 28 mmol/L (22-29); Chloride 109 mmol/L (96-108); Cholesterol 133 mg/dL; Estimated Glomerular Filt Rate > 60; Glucose Fasting 108 mg/dL (60-99); HDL Cholesterol 72 mg/dL; LDL Cholesterol Calculated 55 mg/dl; Potassium 4.4 mmol/L (3.3-5.1); Sodium 142 mmol/L (135-145); Total Protein 5.8 g/dL (6.5-8.0); Triglycerides 34 mg/dL; Uric Acid 4.8 mg/dL (3.4-7.0)
== END 2023-03-11 10:31 | disposition home or self-care (01) ==
LOC: HO.HMGCLDS 10:30
PROVIDERS: PCP Internal Medicine; Visit Provider Internal Medicine
DX: R53.83 Other fatigue (principal); E78.5 Hyperlipidemia, unspecified; E11.9 Type 2 diabetes mellitus without complications
CPT/HCPCS: 36415; 80053; 80061; 83036; 84550; 85025

== ENCOUNTER 2023-03-18 10:40 | Outpatient (AMB) | payer MEDICARE, SELFPAY ==
--- NOTE | 2023-03-18 06:56 | MHC.OFFVIS ---
Intake Intake Visit Reasons: 6w cysto Allergies No Known Allergies Allergy (Mild, Verified 03/18/23 11:01) N/A HPI HPI Comments History of Present Illness Details Jewel is an 87-year-old male who presents today to the office for a 6-week follow-up for office cysto. 03/18/23 -- He was last seen on 02/05/23. He has a history of prostate cancer, and he is status post-radical prostatectomy followed by radiation. The patient was initially evaluated as an inpatient hospital visit and has had recurrent UTIs. The patient states that he was followed by another urologist and has had intractable urinary incontinence. He states that he has been treated with various mediations that did not help, as well as a trial of Botox bladder injections that were also unsuccessful. He has a Mena catheter placed for urinary incontinence, which seemed to help the situation where he was not leaking; however, on his most recent hospital visit, the Mena catheter was removed because it was felt to be nidus for his recurrent UTI. His past medical history is significant for hypertension, hyperlipidemia, and chronic thrombocytopenia. His last positive UTI culture with susceptibilities identified was on 01/23/23 with pseudomonas and enterococcus. During the last visit on 02/05/23, I discussed alternative options for the urinary incontinence, to include a penile clamp. He has completed his antibiotic course and currently has no medication left with him. He maintains regular follow-up with his primary care physician. He states that his primary care physician has not ordered physical therapy. Results reviewed: 01/31/23 -- CAT scan results reviewed: A 4 x 6 cm cyst in the upper pole of the left kidney. Mild bilateral hydronephrosis and ureteral dilatation down to the bladder. The bladder wall is diffusely thickened. Evaluation today: UA: Blood: Negative Freddie/uL, leukocytes: negative. Cystoscopy finding today: bladder was neck wide open, no scarring was noted at the bladder neck, urethra was normal. Bladder wall thickening noted. No suspicious bladder lesions. Plan: I have again encouraged the patient to try the penile clamp. I have discussed with him that his Prior urologist tried virtually all the options including an artificial urinary sphincter which did not work. I will write a script for pads to use at night time and I want him to give the penile clamp to try during the daytime to clamp and release every 2 to 3 hours to empty his bladder. Follow up in -8 weeks. [facility] Medical History (HFpEF) heart failure with preserved ejection fraction Acute retention of urine Bifascicular block CAD (coronary artery disease) Cardiac pacemaker in situ (~12/2020) CHF exacerbation COVID-19 vaccine series completed Diabetes Hepatorenal syndrome History of cardioversion History of prostate cancer History of ST elevation myocardial infarction (STEMI) HLD (hyperlipidemia) HTN (hypertension) Hx of Lyme disease Myocardial infarct, old Pancytopenia Persistent atrial fibrillation Prostate CA PVC (premature ventricular contraction) Symptomatic bradycardia Thrombocytopenia Tubular adenoma of colon Urinary tract infection due to Pseudomonas aeruginosa Ventricular bigeminy Surgical History History of cardiac pacemaker (~12/2020) History of cervical spinal surgery History of colonoscopy History of left inguinal hernia repair History of lumbar discectomy History of radical prostatectomy History of total right knee replacement (TKR) Social History Household Members: Spouse Household Members Other:: dog Housing: House Are you a primary doggy daycare activities director to a significant other at home: No Do you presently have visiting nurse or other home services: Yes Alcohol intake: never Patient Tobacco Use Status: Former Tobacco user Quit Date: age 22's Tobacco use type: Cigarette Years Smoked: 10 Advance Directives Date on File: 01/04/23 service: Yes Current occupational status: retired Review of Systems Const All systems reviewed & are unremarkable except as noted in HPI and below Reports no additional complaints Eyes Reports no additional complaints ENT Denies neck pain Card Denies leg edema Resp Denies cough GI Denies constipation Musc Reports no additional complaints and Denies neck pain Skin/Breast Denies rash and Denies unusual bruising Neuro Reports no additional complaints Psych Reports no additional complaints Endo Reports no additional complaints [place]/Lymph Reports no additional complaints Aller/Immun Reports no additional complaints Office Procedures Cystoscopy Consent Discussed risk and benefit or proposed procedure with the patient. Information consent for procedure given to the patient. Discussed technical aspects, risks, benefits and alternatives in full. Addressed all of the patient's questions and concerns regarding the procedure. The patient demonstrated knowledge and understanding. They wish to proceed with this procedure. Preparation The patient was prepped in the usual manner. A extrusion operator was present and in the room. Genitalia was prepped with betadine solution in a sterile manner. Lidocaine Jelly 2% was placed into the urethra and 16Fr flexible Olympus cystoscope was inserted into the meatus after adequate lubrication. Procedure Time out per protocol performed. Bladder Inspection Bladder Inspection: The bladder was inspected in its entirety with utilization retroflexion displaying: Tumor(s): none visualized Trabeculation: mild/moderate Mucosal Erthema: mild Orifices: normal shape and position Urethra: normal Cystoscopy findings: s/p radical prostate removed, bladder neck wide open, no significant scarring noted. bulbous urethra [] WNL, no suspicious bladder lesions visualized [id number] Procedure code (CPT) selection complete Office Meds lidocaine HCl Performing Provider: Ed Ramirez MD Documented (not given) by: Ed Ramirez MD on 03/31/23 16:47 Dose Route Admin Location Lot Number Expiration Date NDC Location Analyst 10 mL intra-urethral naproxen Performing Provider: Ed Ramirez MD Documented (not given) by: Ed Ramirez MD on 03/31/23 16:47 Dose Route Admin Location Lot Number Expiration Date NDC Location Analyst 500 mg PO ciprofloxacin HCl Performing Provider: Ed Ramirez MD Documented (not given) by: Ed Ramirez MD on 03/31/23 16:47 Dose Route Admin Location Lot Number Expiration Date NDC Location Analyst 500 mg PO Results Reviewed Results Reviewed: 03/18/23 09:00 Lidocaine HCl 2 % Urojet [Xylocaine 2 % Urojet] 20 ml .ROUTE .STK-MED ONE NaPROXEN [Naprosyn] 500 mg .ROUTE .STK-MED ONE Nitrofurantoin Monohyd/M-Cryst [Macrobid] 100 mg PO .STK-MED ONE EXAMINATION: CT ABDOMEN AND PELVIS WITHOUT CONTRAST? CLINICAL INFORMATION: UTI. Left hydronephrosis.? COMPARISON: Previous renal ultrasound December 2022 FINDINGS: LUNG BASES: Increased peripheral reticular markings questionable for mild interstitial lung disease.? LIVER, GALLBLADDER, AND BILIARY TREE: The liver is normal in size, shape, and attenuation. No focal hepatic lesion or biliary ductal dilatation is present. Small gallstones in the gallbladder. PANCREAS: Unremarkable.? SPLEEN: Unremarkable.? ADRENAL GLANDS: Unremarkable.? KIDNEYS AND URETERS: 4 x 6 cm cyst in the upper pole of the left kidney. No imaging follow-up recommended. Mild bilateral hydronephrosis and ureteral dilatation down to the bladder. BLADDER: The bladder wall is diffusely thickened. There is a Mena catheter in the bladder. There is a small amount of fluid and air in the bladder.? GASTROINTESTINAL TRACT: Diverticulosis of the colon. No evidence of diverticulitis. Small and large bowel is otherwise normal. The appendix is normal. The stomach is normal.? ABDOMINAL WALL: No significant hernia is appreciated.? LYMPH NODES: Normal. VASCULAR: Severe atherosclerotic disease. The abdominal aorta is tortuous. No aneurysm. PELVIC VISCERA: Surgical clips in the pelvis. The prostate gland appears to have been removed.? OSSEOUS STRUCTURES: Degenerative changes of the spine. Mild 2 mm anterior subluxation of L3 with respect to L2 and L4. Surgical hardware in between the posterior elements/spinous processes of L3 and L4. Mild scoliosis. Mild degenerative changes of the hip joints. IMPRESSION: Mild bilateral hydronephrosis and ureteral dilatation down to the bladder. The bladder wall is diffusely thickened. There is a Mena catheter in the bladder. There is a small amount of fluid and air in the bladder.? Gallstones. Diverticulosis of the colon. Assessment & Plan Assessment & Plan (1) History of prostate cancer: Code(s): Z85.46 - Personal history of malignant neoplasm of prostate (2) At risk for UTI related to indwelling catheter: Code(s): Z91.89 - Other specified personal risk factors, not elsewhere classified (3) Urinary incontinence: Code(s): R32 - Unspecified urinary incontinence Plan I have again encouraged the patient to again try the penile clamp. I have discussed with him that his Prior urologist tried virtually all the options including an artificial urinary sphincter which did not work. I will write a script for pads to use at night time and I want him to give the penile clamp to try during the daytime to clamp and release every 2 to 3 hours to empty his bladder. Follow up in 6-8 weeks. Orders: Orders PSA, Ultra Sensitive 03/18/23 Z85.46 - Personal history of malignant neoplasm of prostate AMB Cystoscopy 03/18/23 N39.0 - Urinary tract infection, site not specified Medications: New ciprofloxacin HCl 500 mg PO ONCE 1 tab 0RF N39.0 - Urinary tract infection, site not specified naproxen 500 mg PO ONCE 1 tab 0RF N39.0 - Urinary tract infection, site not specified lidocaine HCl 2% 10 mL intra-urethral ONCE 10 mL 0RF N39.0 - Urinary tract infection, site not specified Discontinued gabapentin 100 mg PO BID 30 days 60 caps 0RF B02.23 - Postherpetic polyneuropathy Patient Instructions: The patient had an opportunity to ask questions regarding treatment plan. All questions were answered. Imaging, Laboratory studies and physical exam results were discussed and reviewed in detail. No major barriers to understanding were identified. The patient expressed understanding and agreement with the above treatment plan.? ? ? The patient is aware they should contact our office by phone for worsening of their current condition or the appearance of new symptoms. Compliance is encouraged with any medications and followup testing that is ordered.? ? ? It is a privilege to be allowed the opportunity to participate in the urologic care of your patient. If you have any questions or concerns regarding treatment for the above conditions please do not hesitate to contact me. The office telephone contact is [phone].? ? ? This note is constructed in part using voice recognition software. While every effort has been made to ensure accuracy traveling freight agent errors may have been included.? ? ? Yours sincerely,? ? ? Ed Ramirez MD? Coding Level of Care Code Procedure Only Diagnoses History of prostate cancer Z85.46 At risk for UTI related to indwelling catheter Z91.89 Urinary incontinence R32 CPT Codes Cystoscopy - CPT: [id number] ([id number])
== END 2023-03-18 12:05 | disposition home or self-care (01) ==
PROVIDERS: PCP Internal Medicine; Visit Provider Urology
DX: R32 Unspecified urinary incontinence (principal); Z85.46 Personal history of malignant neoplasm of prostate; Z91.89 Other specified personal risk factors, not elsewhere classified
CPT/HCPCS: 52000

== ENCOUNTER → 2023-03-18 10:40 | Outpatient (BNVA) | payer MEDICARE, SELFPAY | PROVIDERS: PCP Internal Medicine; Visit Provider Urology | DX: R32 Unspecified urinary incontinence (principal); Z91.89 Other specified personal risk factors, not elsewhere classified; Z85.46 Personal history of malignant neoplasm of prostate | CPT/HCPCS: 52000 ==

== ENCOUNTER 2023-05-01 15:36 | Emergency (ER) | payer MEDICARE, SELFPAY ==
--- NOTE | ~2023-05-01 | CT_ITS ---
EXAMINATION: CT HEAD WITHOUT CONTRAST, CT CERVICAL SPINE WITHOUT CONTRAST CLINICAL INFORMATION: Fall on thinners COMPARISON: Portions of a previous study 10/08/22 TECHNIQUE: Multidetector CT examination of the head is performed without contrast. Multidetector CT of the cervical spine without contrast. Multiplanar postprocessing This CT examination was performed using dose optimization techniques as appropriate, variously including the following: *Automated exposure control *Adjustment of mA and/or kV according to patient size (this includes techniques or standardized protocols for targeted exams where dose is matched to indication/reason for exam; i.e. extremities or head) *Use of iterative reconstruction technique DLP: Head CT 746 mGy-cm DLP: Cervical CT 573 mGy-cm FINDINGS: Head CT: There is no evidence of a recent intracranial hemorrhage or extra-axial collection. The midline structures are nondisplaced. The ventricles, cisterns, and sulci are within normal limits. There is no evidence of an intra-axial mass. There are no suspicious focal areas of abnormal brain attenuation. The purvis-white interface is within normal limits. There is no evidence of acute territorial infarct. There is incomplete opacification of some of the posterior inferior left mastoid air cells. This is fairly similar to 10/08/22 No acute fracture demonstrated Cervical CT: There is no acute fracture demonstrated. There is unchanged anterolisthesis of C2 relative to C3. There is a so-called rigid spine with near complete ankylosis of C3, C4 and C5. There is disc narrowing. There are marginal osteophytes. There is foraminal narrowing. There is no convincing change in the alignment when compared to 10/08/22. There is an unchanged lucency in the left side of C6. No suspicious abnormality in the visualized apex of the chest. Partially included cardiac leads traversing the left brachiocephalic vein. There is canal narrowing and there is foraminal narrowing. CT/CT cervical spine wo IV con IMPRESSION: 1. There is no evidence of a recent intracranial hemorrhage. 2. No acute infarct. 3. 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
--- NOTE | ~2023-05-01 | CT_ITS ---
EXAMINATION: CT CHEST, ABDOMEN AND PELVIS WITH CONTRAST CLINICAL INFORMATION: Reason for Exam RUQ pain, fall on Eliquis. COMPARISON: Portions of abdomen CT 01/31/23. TECHNIQUE: Multidetector CT of the chest, abdomen and pelvis. The patient received: Oral contrast: No Intravenous contrast: 85 mL of Omnipaque 350 No contrast reaction reported Sagittal and coronal reformatted images were obtained on the technologist workstation. This CT examination was performed using dose optimization techniques as appropriate, variously including the following: *Automated exposure control *Adjustment of mA and/or kV according to patient size (this includes techniques or standardized protocols for targeted exams where dose is matched to indication/reason for exam; i.e. extremities or head) *Use of iterative reconstruction technique Total exam dose-length product 482 mGy-cm FINDINGS: DIGITAL OPTICAL EFFECTS LAYOUT PERSON: There is a power generator in the left chest with cardiac leads present. No definite mediastinal widening. Gas within loops of small and large bowel throughout the abdomen and pelvis. CHEST: Lung: No abnormality of the trachea or mainstem bronchi. No suspicious mass or dense area of consolidation. There are a few juxtapleural reticular and polygonal opacities. No definite honeycomb formation. These findings are lower zone predominant. Pleura: No pleural effusion or pneumothorax. Mediastinum: There is no evidence of a mediastinal hematoma. There are no enlarged lymph nodes. There is no suspicious abnormality of the esophagus. Vascular: There is marked coronary artery calcification There is no thoracic aortic aneurysm. The main pulmonary artery is normal caliber. There is no pericardial fluid. Cardiac leads terminate in the region of the right atrium and right ventricle. Chest Wall/Axilla: Artifact related to a power generator in the left chest wall. ABDOMEN/PELVIS: Liver, Gallbladder, And Biliary Tree: No suspicious abnormality of the liver. Specifically no evidence of liver injury. There are small gallstones present. There is no biliary dilation. Pancreas: No evidence of a pancreatic injury or localized fluid around the pancreas Spleen: No evidence of a splenic injury. No focal lesion. Adrenal Glands: Within normal limits Kidneys And Ureters: No evidence of a renal injury. The nephrograms are symmetric. There is a 5.5 cm upper pole left renal cyst which does not have any suspicious features and does not require any further evaluation. There is at least one additional simple cyst in the upper right kidney which does not require any further evaluation. Gastrointestinal Tract: No evidence of large bowel injury. There are numerous colonic diverticula. There is wall thickening of the sigmoid. The appendix is within normal limits. There is no significant small bowel dilation. No definite abnormality the stomach. There is no definite evidence of an omental or mesenteric hematoma. Abdominal Wall: There is stranding in the soft tissues of the mid abdominal wall. Correlate with any evidence of seatbelt injury. There is hyperdensity in the suprapubic soft tissues. Lymphovascular Structures And Fluid: There is no evidence of an abdominal aortic injury or retroperitoneal hemorrhage. The portal vein enhances. Bladder: No suspicious abnormality Pelvic Viscera: There are surgical clips in the expected region of the prostate. Musculoskeletal: There is an acute minimally displaced anterior right sixth rib fracture there is deformity of the anterior right seventh rib which is age indeterminate. There is a minimally displaced posterior right eighth rib fracture There are more chronic appearing minimal deformities of the anterior right fourth and fifth ribs. There is a subacute appearing lateral left sixth rib fracture. There is instrumentation involving the spinous process L3/L4. CT/CT abdomen pelvis w IV con IMPRESSION: There is no mediastinal hematoma or evidence of an aortic injury. There is no pneumothorax or evidence of pulmonary contusion. No solid visceral injury or hemoperitoneum. There are rib fractures including some which appear acute. Tiny incidental gallstones..
[2023-05-01 15:42] VITALS: BP 135/73; PULSE 70; O2SAT 97
[2023-05-01 15:50] VITALS: BP 148/68; PULSE 74; RESP 18; TEMP 36.8; O2SAT 95; BMI 29.4
--- NOTE | 2023-05-01 16:58 | ED_ITS ---
HPI - Fall General Chief Complaint: Fall Stated Complaint: mechanical fall, R side rib pain, no LOC Time Seen by Provider: 05/01/23 16:11 Source: patient Mode of arrival: EMS Limitations: no limitations History of Present Illness HPI Narrative: Patient comes to the emergency room complaining of a mechanical fall. Patient states that he tripped and landed on the right side of his body. Patient states he did not hit his head or loss consciousness. However, patient is on Eliquis. Patient complaining of severe right rib pain and right upper quadrant pain. Also, patient reports that his legs have been very swollen for couple of months. Reports no chest pain or shortness of breath. Related Data Home Medications Medication Instructions Recorded Confirmed insulin aspart U-100 100 unit/mL 1 sliding scale dose subcut 12/14/20 02/09/23 subcutaneous solution (Novolog USEASDIRECTD U-100 Insulin aspart) ipratropium 20 mcg-albuterol 100 1 puff inhalation TID 12/14/20 02/09/23 mcg/actuation mist for inhalation (Combivent Respimat) multivitamin 1 tab PO DAILY 12/14/20 02/09/23 atorvastatin 40 mg tablet 40 mg PO BEDTIME 06/13/21 02/09/23 pregabalin 150 mg capsule 150 mg PO QID PRN Pain, Moderate 06/13/21 02/09/23 insulin degludec 100 unit/mL (3 70 unit subcut DAILY 10/20/22 02/09/23 mL) subcutaneous pen (Tresiba FlexTouch U-100 insulin) metoprolol succinate 25 mg 25 mg PO DAILY 01/04/23 02/09/23 tablet,extended release 24 hr oxycodone 5 mg tablet 5 mg PO QID PRN Severe Pain (Scale 01/04/23 02/09/23 Score 7-10) budesonide-formoterol HFA 80 2 puff inhalation BID 01/31/23 02/09/23 mcg-4.5 mcg/actuation aerosol inhaler (Symbicort) cholecalciferol (vitamin D3) 25 25 mcg PO DAILY 01/31/23 02/09/23 mcg (1,000 unit) capsule (Vitamin D3) dronedarone 400 mg tablet (Multaq) 400 mg PO BID 01/31/23 02/09/23 fluticasone propionate 50 1 spray intranasal DAILY PRN 01/31/23 02/09/23 mcg/actuation nasal Allergy Symptoms spray,suspension furosemide 20 mg tablet 20 mg PO DAILY PRN Edema 01/31/23 02/09/23 vitamin B complex 1 tab PO DAILY 01/31/23 02/09/23 losartan 25 mg tablet 25 mg PO DAILY 02/09/23 02/09/23 Previous Rx's Medication Instructions Recorded isosorbide mononitrate 30 mg 30 mg PO DAILY #30 tabs 10/02/22 tablet,extended release 24 hr linezolid 600 mg tablet 600 mg PO BID #14 tabs 02/02/23 phenazopyridine 200 mg tablet 200 mg PO TIDWM #14 tabs 02/02/23 apixaban 5 mg tablet (Eliquis) 5 mg PO BID #60 tabs 02/09/23 oxycodone 5 mg tablet 5 mg PO BID PRN pain #7 tabs 05/01/23 Allergies Allergy/AdvReac Type Severity Reaction Status Date / Time No Known Allergies Allergy Mild N/A Verified 05/01/23 15:50 Review of Systems 2 Review of Systems: Constitutional : No Weight loss, No Fever, No Chills, No Night Sweats, No Fatigue, No Malaise ENT/Mouth : No Hearing loss, No Ear Pain, No Nasal Congestion, No Sinus Pain, No Hoarseness, No sore throat, No Rhinorrhea, No Swallowing Difficulty Eyes: No Eye Pain, No Swelling, No Redness, No Foreign Body, No Discharge, No Vision Changes Cardiovascular : No Chest Pain, No SOB, No Dyspnea on Exertion, No Orthopnea, no palpitations, complaining of bilateral lower extremity edema for couple of months Respiratory : No Cough, No Sputum, No Wheezing, No Smoke Exposure, No Dyspnea Gastrointestinal : No Nausea, No Vomiting, No Diarrhea, No Constipation, complaining of right upper quadrant pain, Genitourinary : no irregular bleeding, No Dysuria, No Urinary Frequency, No Hematuria, No Urinary Incontinence, No Urgency, No Flank Pain, No Urinary Flow Changes, No Hesitancy Musculoskeletal : Complaining of severe right side rib pain No joint pain, No Myalgias, No Joint Swelling Skin : No Skin Lesions, No rash Neuro : No Weakness, No Numbness, No Paresthesias, No Loss of Consciousness, No Dizziness, No Headache Psych : No Anxiety/Panic, No Depression, No SI/HI/AH/VH, No Social Issues, Heme/Lymph: No Bruising, No Bleeding,No Lymphadenopathy Endocrine : No Polyuria, No Polydipsia, No Temperature Intolerance [facility] Past Medical History Medical History Urinary tract infection due to Pseudomonas aeruginosa Recurrent UTI History of prostate cancer Acute retention of urine Persistent atrial fibrillation COVID-19 vaccine series completed History of cardioversion Hx of Lyme disease Tubular adenoma of colon History of ST elevation myocardial infarction (STEMI) (HFpEF) heart failure with preserved ejection fraction Cardiac pacemaker in situ (~12/2020) Hepatorenal syndrome Symptomatic bradycardia Ventricular bigeminy Thrombocytopenia PVC (premature ventricular contraction) CHF exacerbation Bifascicular block Pancytopenia Prostate CA Myocardial infarct, old CAD (coronary artery disease) HLD (hyperlipidemia) Diabetes HTN (hypertension) Surgical History History of cardiac pacemaker (~12/2020) History of cervical spinal surgery History of colonoscopy History of left inguinal hernia repair History of lumbar discectomy History of radical prostatectomy History of total right knee replacement (TKR) Social History Social History Household Members: Spouse Household Members Other:: dog Housing: House Are you a primary youth care specialist to a significant other at home: No Do you presently have visiting nurse or other home services: Yes Alcohol intake: never Patient Tobacco Use Status: Former Tobacco user Quit Date: age 22's Tobacco use type: Cigarette Years Smoked: 10 Advance Directives: Yes Advance Directives Information Provided: No Advance Directives on File: No Advance Directives Date on File: 01/04/23 service: Yes Current occupational status: retired Physical Exam 2 Vital Signs: Vital Signs: Last Vital Signs Temp 97.8 F 05/01/23 17:03 Pulse 69 05/01/23 17:03 Resp 16 05/01/23 17:03 BP 145/69 H 05/01/23 17:03 Pulse Ox 95 05/01/23 15:50 O2 Del Method Room Air 05/01/23 17:03 BMI result Body Mass Index 29.4 Const: Other: Appearance: Alert. Oriented X3. Eyes: Pupils equal, round and reactive to light. ENT: Pharynx normal. Neck: Normal inspection. Neck supple. No lymph nodes noted. No crepitus CVS: Normal heart rate and rhythm. Pulses normal. Normal S1 and S2 Respiratory: No respiratory distress. Breath sounds normal. No Wheezing. No rales Abdomen: Soft , mild pain to palpation over the right upper quadrant, No rigidity. No distention. Musculoskeletal: Pain and swelling to palpation on the right side of the ribs Skin: Skin warm and dry. Multiple ecchymoses, skin abrasion in the right elbow Extremities: No lower extremity edema. No Lacerations. No Rash Neuro: Oriented X 3. No motor deficit. No sensory deficit. Moving all extremities. No slurred speech. CN 2 through 12 grossly intact Psych: calm, cooperative, normal affect Course Course Course Narrative: -all of patient's labs and imaging pending Medications Administered Discontinued Medications Generic Name Dose Route Start Last Admin Trade Name Darriusq PRN Reason Stop Dose Admin Iohexol 100 ml 05/01/23 18:12 05/01/23 18:12 Iohexol 350 Mg/Ml 100 Ml Infus..Btl IV 05/01/23 18:13 85 ml ONCE ONE Administration Morphine Sulfate 4 mg 05/01/23 17:38 05/01/23 18:10 Morphine Sulfate 4 Mg/Ml Cartridge IVPUSH 05/01/23 17:39 4 mg ONCE ONE Administration Protocol Ondansetron HCl 4 mg 05/01/23 17:38 05/01/23 18:11 Ondansetron Hcl 4 Mg/2 Ml Vial IVPUSH 05/01/23 17:39 4 mg ONCE ONE Administration Medical Decision Making Medical Decision Making [facility] Narrative: -my interpretation of labs: Patient's hematology and chemistry at baseline. Patient's potassium 5.4, no EKG changes, no peaked T-waves, no treatment at this time. -my interpretation of CT scan of the chest: No hematoma or fracture ribs. My interpretation of CT scan of the head: No intracranial bleed. Differential Diagnosis Differential Diagnoses: The differential diagnosis associated with the presentation includes (Rib fracture, pulmonary contusion, costochondritis, pneumothorax, expanding hematoma) Admission/Observation Consideration of admission/observation: Escalation of care including admission/observation considered (On arrival, patient was in severe pain, admission was considered.) Lab Data [facility] Lab Attestation statement: I reviewed the patient's lab results. 05/01/23 17:19 05/01/23 17:19 Labs: Lab Results 05/01/23 Range/Units 17:19 WBC 5.6 (4.8-10.8) X10*3/uL RBC 3.74 L (4.60-5.80) X10*6/uL Hgb 11.9 L (14.0-18.0) g/dl Hct 35.8 L (42.0-52.0) % MCV 95.7 (80.0-98.0) fL MCH 31.8 (27.0-33.0) pg MCHC 33.2 (31.0-36.0) g/dl RDW 16.7 H (11.0-16.0) % Plt Count 101 L (160-400) X10*3/uL MPV 10.1 (9.4-12.4) fL Immature Gran % (Auto) 1.4 H (0.0-0.4) % Neut % (Auto) 68.7 (45-73) % Lymph % (Auto) 17.6 L (20-40) % [place] % (Auto) 11.0 (2-11) % Eos % (Auto) 0.9 (0-4) % Baso % (Auto) 0.4 (0-2) % Lymph # (Auto) 1.0 L (1.2-4.9) X10*3/uL [place] # (Auto) 0.6 (0.1-1.2) X10*3/uL Eos # (Auto) 0.1 (0.0-0.4) X10*3/uL Baso # (Auto) 0.0 (0.0-0.2) X10*3/uL Abs Immat Gran (auto) 0.08 H (0.00-0.03) X10*3/uL Absolute Neuts (auto) 3.9 (2.0-8.3) x10*3/uL Absolute Nucleated RBC 0.000 (0.0-0.012) X10*3/uL Nucleated RBC % (auto) 0.0 (0.0-0.2) /100WBC Sodium 139 (135-145) mmol/L Potassium 5.4 H D (3.3-5.1) mmol/L Chloride 109 H (96-108) mmol/L Carbon Dioxide 25 (22-29) mmol/L Anion Gap 10 L (12-20) BUN 16 (9-16) mg/dL Creatinine 0.91 (0.5-1.4) mg/dL Estim Creat Clear Calc 63.8 Estimated GFR > 60 Random Glucose 147 H (60-115) mg/dL Calcium 9.1 (8.4-10.2) mg/dL Total Bilirubin 0.7 (0.0-1.0) mg/dL Direct Bilirubin 0.3 (0.0-0.5) mg/dL AST 38 H (5-37) U/L ALT 35 (0-40) U/L Alkaline Phosphatase 76 (39-117) U/L Troponin I High Sens 18.2 (<3.5-35.0) ng/L B-Natriuretic Peptide 344 H (<100) pg/mL Total Protein 5.7 L (6.5-8.0) g/dL Albumin 3.3 L (3.5-5.0) g/dL Independent Interpretation I performed an independent interpretation of an: CT Scan Radiology Impression Discussion of test interpretation with radiology: I have reviewed the radiologist's reading. Radiologist Impression: There is no mediastinal hematoma or evidence of an aortic injury. There is no pneumothorax or evidence of pulmonary contusion. No solid visceral injury or hemoperitoneum. There are rib fractures including some which appear acute. Tiny incidental gallstones. IMPRESSION: 1. There is no evidence of a recent intracranial hemorrhage. 2. No acute infarct. 3. 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 Time includes review of lab data, radiology results, discussion with consultants, and monitoring for potential decompensation. Intervention performed as documented. Discharge Plan Discharge Clinical Impression: Fall, Contusion of rib on right side Patient Disposition: Home, Self-Care Instructions: Rib Contusion (ED) Additional Instructions: Please follow-up with your primary care physician tomorrow. If you have any worsening or new symptoms, please return to the emergency room or call 911 Prescriptions: New oxycodone 5 mg tablet 5 mg PO BID PRN (Reason: pain) Qty: 7 0RF Rx Instructions: Partial Fill upon patient request. No Action Combivent Respimat 20-100 mcg/actuation mist 1 puff inhalation TID multivitamin Tablet 1 tab PO DAILY insulin aspart U-100 [Novolog U-100 Insulin aspart] 100 unit/mL Solution 1 sliding scale dose SUBCUT USEASDIRECTD insulin degludec [Tresiba FlexTouch U-100] 100 unit/mL (3 mL) insulin pen 70 unit subcut DAILY metoprolol succinate 25 mg tablet extended release 24 hr 25 mg PO DAILY oxycodone 5 mg tablet 5 mg PO QID PRN (Reason: Severe Pain (Scale Score 7-10)) vitamin B complex Tablet 1 tab PO DAILY fluticasone propionate 50 mcg/actuation spray,suspension 1 spray INTRANASAL DAILY PRN (Reason: Allergy Symptoms) cholecalciferol (vitamin D3) [Vitamin D3] 25 mcg (1,000 unit) Capsule 25 mcg PO DAILY budesonide-formoterol [Symbicort] 80-4.5 mcg/actuation HFA aerosol inhaler 2 puff inhalation BID Multaq 400 mg tablet 400 mg PO BID furosemide 20 mg Tablet 20 mg PO DAILY PRN (Reason: Edema) phenazopyridine 200 mg Tablet 200 mg PO TIDWM Qty: 14 0RF linezolid 600 mg tablet 600 mg PO BID Qty: 14 0RF atorvastatin 40 mg tablet 40 mg PO BEDTIME pregabalin 150 mg capsule 150 mg PO QID PRN (Reason: Pain, Moderate) isosorbide mononitrate 30 mg tablet extended release 24 hr 30 mg PO DAILY Qty: 30 3RF losartan 25 mg tablet 25 mg PO DAILY Eliquis 5 mg tablet 5 mg PO BID Qty: 60 0RF ciprofloxacin HCl 500 mg tablet 500 mg PO ONCE Qty: 1 0RF naproxen 500 mg tablet 500 mg PO ONCE Qty: 1 0RF lidocaine HCl 2 % jelly in applicator 10 ml intra-urethral ONCE Qty: 10 0RF
[2023-05-01 17:03] VITALS: BP 145/69; PULSE 69; RESP 16; TEMP 36.6
--- NOTE | 2023-05-01 17:22 | MHC.EDTECH ---
PATIENT VITALS SIGN TAKEN AND BLOOD DRAWN AND SENT TO LAB .
[2023-05-01 17:23] LABS: MANUAL DIFF FLAG NO
[2023-05-01 17:26] LABS: Basophils Percent Auto 0.4 % (0-2); Eosinophils Absolute Auto 0.1 X10*3/uL (0.0-0.4); Eosinophils Percent Auto 0.9 % (0-4); Hematocrit 35.8 % (42.0-52.0); Hemoglobin 11.9 g/dl (14.0-18.0); Imm Gran Abs Auto 0.08 X10*3/uL (0.00-0.03); Imm Gran Pct Auto 1.4 % (0.0-0.4); Lymphocytes Percent Auto 17.6 % (20-40); Mean Corpuscular HGB Conc 33.2 g/dl (31.0-36.0); Mean Corpuscular Hemoglobin 31.8 pg (27.0-33.0); Mean Corpuscular Volume 95.7 fL (80.0-98.0); Mean Platelet Volume 10.1 fL (9.4-12.4); Monocytes Absolute Auto 0.6 X10*3/uL (0.1-1.2); Neutrophils Absolute Auto 3.9 x10*3/uL (2.0-8.3); Neutrophils Percent Auto 68.7 % (45-73); Platelet Count 101 X10*3/uL (160-400); Red Blood Count 3.74 X10*6/uL (4.60-5.80); Red Cell Distribution Width 16.7 % (11.0-16.0); White Blood Count 5.6 X10*3/uL (4.8-10.8)
[2023-05-01 17:39] LABS: Alanine Aminotransferase 35 U/L (0-40); Albumin Level 3.3 g/dL (3.5-5.0); Alkaline Phosphatase 76 U/L (39-117); Anion Gap 10 (12-20); Aspartate Amino Transferase 38 U/L (5-37); Bilirubin Direct 0.3 mg/dL (0.0-0.5); Bilirubin Total 0.7 mg/dL (0.0-1.0); Blood Urea Nitrogen 16 mg/dL (9-16); Calcium 9.1 mg/dL (8.4-10.2); Carbon Dioxide 25 mmol/L (22-29); Chloride 109 mmol/L (96-108); Creatinine Clr Calc Pharmacy 63.8; Estimated Glomerular Filt Rate > 60; Glucose Random 147 mg/dL (60-115); Potassium 5.4 mmol/L (3.3-5.1); Sodium 139 mmol/L (135-145); Total Protein 5.7 g/dL (6.5-8.0)
[2023-05-01 17:44] LABS: B Type Natriuretic Peptide 344 pg/mL (<100)
[2023-05-01 17:45] LABS: Troponin-I High Sensitivity 18.2 ng/L (<3.5-35.0)
--- NOTE | 2023-05-01 17:57 | PC.NURSE ---
attempted to medication, pt in CT.
[2023-05-01] MEDS: Morphine Sulfate 4 MG/ML CARTRIDGE IVPUSH (18:10)
[2023-05-01] MEDS: ondansetron HCL 4 MG/2 ML VIAL IVPUSH (18:11)
[2023-05-01] MEDS: iohexoL 350 MG/ML 100 ML INFUS..BTL IV (18:12)
[2023-05-01] MEDS: oxyCODONE HCl Immed Release 5 MG TABLET PO (20:14)
== END 2023-05-01 20:44 | disposition home or self-care (01) ==
PROVIDERS: Emergency Provider Emergency Medicine; PCP Internal Medicine
DX: S20.211A Contusion of right front wall of thorax, initial encounter (principal); W01.0XXA Fall on same level from slipping, tripping and stumbling without subsequent striking against object, initial encounter; Y93.9 Activity, unspecified; E11.9 Type 2 diabetes mellitus without complications; I11.0 Hypertensive heart disease with heart failure; I50.30 Unspecified diastolic (congestive) heart failure; E78.5 Hyperlipidemia, unspecified; I48.0 Paroxysmal atrial fibrillation; Y92.9 Unspecified place or not applicable; Y99.9 Unspecified external cause status; Z95.0 Presence of cardiac pacemaker; Z85.46 Personal history of malignant neoplasm of prostate; Z87.891 Personal history of nicotine dependence; Z79.01 Long term (current) use of anticoagulants; Z79.899 Other long term (current) drug therapy
CPT/HCPCS: 36415; 70450; 71260; 72125; 74177; 80048; 80076; 83880; 84484; 85025; 96374; 96375; 99284; J2270; J2405; Q9967

== ENCOUNTER 2023-05-18 12:38 | Outpatient (REF) | payer MEDICARE, SELFPAY ==
[2023-05-18 16:08] LABS: MANUAL DIFF FLAG NO
[2023-05-18 16:15] LABS: Basophils Percent Auto 0.1 % (0-2); Hematocrit 37.4 % (42.0-52.0); Hemoglobin 12.3 g/dl (14.0-18.0); Imm Gran Abs Auto 0.14 X10*3/uL (0.00-0.03); Imm Gran Pct Auto 1.7 % (0.0-0.4); Lymphocytes Absolute Auto 0.5 X10*3/uL (1.2-4.9); Lymphocytes Percent Auto 5.9 % (20-40); Mean Corpuscular HGB Conc 32.9 g/dl (31.0-36.0); Mean Corpuscular Hemoglobin 31.5 pg (27.0-33.0); Mean Corpuscular Volume 95.7 fL (80.0-98.0); Mean Platelet Volume 10.7 fL (9.4-12.4); Monocytes Absolute Auto 0.7 X10*3/uL (0.1-1.2); Monocytes Percent Auto 7.8 % (2-11); Neutrophils Absolute Auto 7.1 x10*3/uL (2.0-8.3); Neutrophils Percent Auto 84.5 % (45-73); Platelet Count 168 X10*3/uL (160-400); Red Blood Count 3.91 X10*6/uL (4.60-5.80); Red Cell Distribution Width 15.3 % (11.0-16.0); White Blood Count 8.4 X10*3/uL (4.8-10.8)
[2023-05-18 16:24] LABS: Alanine Aminotransferase 40 U/L (0-40); Albumin Level 3.7 g/dL (3.5-5.0); Alkaline Phosphatase 92 U/L (39-117); Anion Gap 13 (12-20); Aspartate Amino Transferase 36 U/L (5-37); Bilirubin Total 0.9 mg/dL (0.0-1.0); Blood Urea Nitrogen 38 mg/dL (9-16); Carbon Dioxide 22 mmol/L (22-29); Chloride 105 mmol/L (96-108); Estimated Glomerular Filt Rate > 60; Glucose Random 286 mg/dL (60-115); Potassium 4.4 mmol/L (3.3-5.1); Sodium 136 mmol/L (135-145); Total Protein 6.3 g/dL (6.5-8.0)
== END 2023-05-18 12:39 | disposition home or self-care (01) ==
LOC: HO.HMGCLDS 12:38
PROVIDERS: PCP Internal Medicine; Visit Provider Internal Medicine
DX: R53.83 Other fatigue (principal)
CPT/HCPCS: 36415; 80053; 85025

== ENCOUNTER 2023-05-20 09:59 | Outpatient (AMB) | payer MEDICARE, SELFPAY ==
--- NOTE | 2023-05-20 10:01 | A.OFFVIS_ITS ---
Intake Intake Visit Reasons: 2m/PSA Intake Note: Patient presents today for a follow-up on PSA: Meds- None Allergies to Antibiotic- No Known Allergies Blood Thinner- Eliquis & Furosemide Patient Symptoms: Urine leakage On Air Announcer Required: No Accompanied by: Self / Same As Patient Allergies No Known Allergies Allergy (Mild, Verified 05/01/23 15:50) N/A Medication List - Last Reconciled 05/20/23 by Ed Ramirez MD apixaban (Eliquis) 5 mg PO BID atorvastatin 40 mg PO BEDTIME budesonide-formoterol 80-4.5 mcg/actuation (Symbicort) 2 puffs inhalation BID cholecalciferol (vitamin D3) (Vitamin D3) 25 mcg PO DAILY dronedarone (Multaq) 400 mg PO BID fluticasone propionate 50 mcg/actuation 1 spray intranasal DAILY PRN furosemide 20 mg PO DAILY PRN insulin aspart U-100 (Novolog U-100 Insulin aspart) 1 sliding scale dose subcut USEASDIRECTD insulin degludec (Tresiba FlexTouch U-100 insulin) 70 units subcut DAILY ipratropium-albuterol 20-100 mcg/actuation (Combivent Respimat) 1 puff inhalation TID isosorbide mononitrate ER 30 mg PO DAILY linezolid 600 mg PO BID losartan 25 mg PO DAILY metoprolol succinate ER 25 mg PO DAILY multivitamin 1 tab PO DAILY oxycodone 5 mg PO QID PRN oxycodone 5 mg PO BID PRN phenazopyridine 200 mg PO TIDWM pregabalin 150 mg PO QID PRN vitamin B complex 1 tab PO DAILY HPI HPI Comments History of Present Illness Details Jewel is an 87-year-old male who presents today to the office for a follow-up. 05/20/2023? He is followed today for PSA. He was last seen by me on 03/18/2023 for Cystoscopy. The bladder neck was wide open. The patient was encouraged to try a penile clamp. The patient fell and was seen in the ED on 05/01/23, he sustain some rib fractures. I reviewed the CT abdomen/pelvis results from 05/01/2023 - kidneys - bilateral renal cyst, L>R. Patient states that he is extremely distressed regarding his urine leakage. He states that he is spending a lot of money on pads, and he is very frustrated that nothing has helped him. He denies dysuria of hematuria. Reviewed recent blood work 05/18/23- BUN 38, creat 1.04 Review of charts: Last visit: 03/18/23 -- He has a history of prostate cancer, and he is status post-radical prostatectomy followed by radiation. The patient was initially evaluated as an inpatient hospital visit and has had recurrent UTIs. The patient states that he was followed by another urologist and has had intractable urinary incontinence. He states that he has been treated with various mediations that did not help, as well as a trial of Botox bladder injections that were also unsuccessful. He has a Mena catheter placed for urinary incontinence, which seemed to help the situation where he was not leaking; however, on his most recent hospital visit, the Mena catheter was removed because it was felt to be nidus for his recurrent UTI. His past medical history is significant for hypertension, hyperlipidemia, and chronic thrombocytopenia. His last positive UTI culture with susceptibilities identified was on 01/23/23 with pseudomonas and enterococcus. During the last visit on 02/05/23, I discussed alternative options for the urinary incontinence, to include a penile clamp. He has completed his antibiotic course and currently has no medication left with him. He maintains regular follow-up with his primary care physician. He states that his primary care physician has not ordered physical therapy. Results reviewed:? 01/31/23 -- CAT scan results reviewed: A 4 x 6 cm cyst in the upper pole of the left kidney. Mild bilateral hydronephrosis and ureteral dilatation down to the bladder. The bladder wall is diffusely thickened. Evaluation today: UA: Blood: Negative Freddie/uL, leukocytes: negative. Cystoscopy finding today: bladder was neck wide open, no scarring was noted at the bladder neck, urethra was normal. Bladder wall thickening noted. No suspicious bladder lesions. Plan:I have again encouraged the patient to try the penile clamp. I have discussed with him that his Prior urologist tried virtually all the options including an artificial urinary sphincter which did not work. 05/20/2023: Plan: Urodynamics was discussed to be scheduled on 05/28/2023. [facility] Medical History Urinary tract infection due to Pseudomonas aeruginosa Recurrent UTI History of prostate cancer Acute retention of urine Persistent atrial fibrillation COVID-19 vaccine series completed History of cardioversion Hx of Lyme disease Tubular adenoma of colon History of ST elevation myocardial infarction (STEMI) (HFpEF) heart failure with preserved ejection fraction Cardiac pacemaker in situ (~12/2020) Hepatorenal syndrome Symptomatic bradycardia Ventricular bigeminy Thrombocytopenia PVC (premature ventricular contraction) CHF exacerbation Bifascicular block Pancytopenia Prostate CA Myocardial infarct, old CAD (coronary artery disease) HLD (hyperlipidemia) Diabetes HTN (hypertension) Surgical History History of cardiac pacemaker (~12/2020) History of cervical spinal surgery History of colonoscopy History of left inguinal hernia repair History of lumbar discectomy History of radical prostatectomy History of total right knee replacement (TKR) Social History Household Members: Spouse Household Members Other:: dog Housing: House Are you a primary health care aide to a significant other at home: No Do you presently have visiting nurse or other home services: Yes Alcohol intake: never Patient Tobacco Use Status: Former Tobacco user Quit Date: age 22's Tobacco use type: Cigarette Years Smoked: 10 Advance Directives Date on File: 01/04/23 service: Yes Current occupational status: retired Results Reviewed Results Reviewed: Date of Service: 05/01/23 EXAMINATION:? CT CHEST, ABDOMEN AND PELVIS WITH CONTRAST CLINICAL INFORMATION:? Reason for Exam RUQ pain, fall on Eliquis. COMPARISON:? Portions of abdomen CT 01/31/23. FINDINGS: DIGITAL GAME TECHNICIAN: There is a power generator in the left chest with cardiac leads present. No definite mediastinal widening. Gas within loops of small and large bowel throughout the abdomen and pelvis. CHEST: Lung: No abnormality of the trachea or mainstem bronchi. No suspicious mass or dense area of consolidation. There are a few juxtapleural reticular and polygonal opacities. No definite honeycomb formation. These findings are lower zone predominant. Pleura: No pleural effusion or pneumothorax. Mediastinum: There is no evidence of a mediastinal hematoma. There are no enlarged lymph nodes. There is no suspicious abnormality of the esophagus. Vascular: There is marked coronary artery calcification There is no thoracic aortic aneurysm. The main pulmonary artery is normal caliber. There is no pericardial fluid. Cardiac leads terminate in the region of the right atrium and right ventricle. Chest Wall/Axilla: Artifact related to a power generator in the left chest wall. ABDOMEN/PELVIS: Liver, Gallbladder, And Biliary Tree: No suspicious abnormality of the liver. Specifically no evidence of liver injury. There are small gallstones present. There is no biliary dilation.?? Pancreas: No evidence of a pancreatic injury or localized fluid around the pancreas?? Spleen: No evidence of a splenic injury. No focal lesion.?? Adrenal Glands: Within normal limits?? Kidneys And Ureters: No evidence of a renal injury. The nephrograms are symmetric. There is a 5.5 cm upper pole left renal cyst which does not have any suspicious features and does not require any further evaluation. There is at least one additional simple cyst in the upper right kidney which does not require any further evaluation.?? Gastrointestinal Tract: No evidence of large bowel injury. There are numerous colonic diverticula. There is wall thickening of the sigmoid.? The appendix is within normal limits. There is no significant small bowel dilation. No definite abnormality the stomach. There is no definite evidence of an omental or mesenteric hematoma. Abdominal Wall: There is stranding in the soft tissues of the mid abdominal wall. Correlate with any evidence of seatbelt injury. There is hyperdensity in the suprapubic soft tissues.?? Lymphovascular Structures And Fluid: There is no evidence of an abdominal aortic injury or retroperitoneal hemorrhage. The portal vein enhances.?? Bladder: No suspicious abnormality?? Pelvic Viscera: There are surgical clips in the expected region of the prostate. Musculoskeletal: There is an acute minimally displaced anterior right sixth rib fracture there is deformity of the anterior right seventh rib which is age indeterminate. There is a minimally displaced posterior right eighth rib fracture There are more chronic appearing minimal deformities of the anterior right fourth and fifth ribs. There is a subacute appearing lateral left sixth rib fracture. There is instrumentation involving the spinous process L3/L4.?? IMPRESSION: There is no mediastinal hematoma or evidence of an aortic injury. There is no pneumothorax or evidence of pulmonary contusion. No solid visceral injury or hemoperitoneum. There are rib fractures including some which appear acute. Tiny incidental gallstones. Assessment & Plan Assessment & Plan (1) History of prostate cancer: Code(s): Z85.46 - Personal history of malignant neoplasm of prostate (2) Urinary incontinence: Code(s): R32 - Unspecified urinary incontinence Plan Urodynamics was discussed to be scheduled on 05/28/2023. Patient Instructions: The patient had an opportunity to ask questions regarding treatment plan. All questions were answered. Imaging, Laboratory studies and physical exam results were discussed and reviewed in detail. No major barriers to understanding were identified. The patient expressed understanding and agreement with the above treatment plan.? ? ? The patient is aware they should contact our office by phone for worsening of their current condition or the appearance of new symptoms. Compliance is encouraged with any medications and followup testing that is ordered.? ? ? It is a privilege to be allowed the opportunity to participate in the urologic care of your patient. If you have any questions or concerns regarding treatment for the above conditions please do not hesitate to contact me. The office telephone contact is [phone].? ? ? This note is constructed in part using voice recognition software. While every effort has been made to ensure accuracy fluoroscope operator errors may have been included.? ? ? Yours sincerely,? ? ? Ed Ramirez MD? Coding Level of Care Code Est Pt Level 3 (67619) Diagnoses History of prostate cancer Z85.46 Urinary incontinence R32
== END 2023-05-20 10:40 | disposition home or self-care (01) ==
PROVIDERS: PCP Internal Medicine; Visit Provider Urology
DX: Z85.46 Personal history of malignant neoplasm of prostate (principal); R32 Unspecified urinary incontinence
CPT/HCPCS: 99213

== ENCOUNTER → 2023-05-20 09:59 | Outpatient (BNVA) | payer MEDICARE, SELFPAY | PROVIDERS: PCP Internal Medicine; Visit Provider Urology | DX: R32 Unspecified urinary incontinence (principal); Z85.46 Personal history of malignant neoplasm of prostate | CPT/HCPCS: 99212 ==

== ENCOUNTER 2023-05-24 07:50 | Emergency (ER) | payer MEDICARE, SELFPAY ==
--- NOTE | ~2023-05-24 | XR_ITS ---
EXAMINATION: XR CHEST CLINICAL INFORMATION: Right mid back pain COMPARISON: Previous chest x-ray most recent December [address] most recent November 2022 TECHNIQUE: Frontal view of the chest was obtained. FINDINGS: The cardiac and mediastinal contours are stable. Left subclavian dual chamber pacemaker unchanged in position. The lungs are clear. No pleural effusion or pneumothorax. There are right posterior seventh and eighth rib fractures and right anterior fifth through seventh rib fractures probably unchanged from April 2023 CT. Thoracic spine not well evaluated. Due to overlapping mediastinal structures. Degenerative changes of the spine. XR/XR chest 1V IMPRESSION: No evidence for acute disease in the chest. Right-sided rib fractures probably similar to 05/01/[address]
--- NOTE | ~2023-05-24 | US_ITS ---
EXAMINATION: US VENOUS ULTRASOUND WITH DOPPLER LOWER EXTREMITY, RIGHT CLINICAL INFORMATION: Swelling and pain COMPARISON: Previous exam February 2000 TECHNIQUE: Ultrasound of the deep veins is performed from the hip to the calf with compression sonography and color and pulse Doppler assessment. Spectral analysis with color-flow imaging is performed. FINDINGS: There is normal venous compression and respiratory variation and augmented flow. The visualized common femoral vein, superficial femoral vein, profunda femoral vein, popliteal vein, and the trifurcation region shows no evidence of deep venous thrombosis. There is no significant popliteal fossa cyst. US/US venous duplex LE RT IMPRESSION: No DVT demonstrated in the right lower extremity.
[2023-05-24 07:52] VITALS: BP 100/67; PULSE 70; RESP 16; TEMP 36.6; O2SAT 100; BMI 27.5
[2023-05-24 08:07] VITALS: BP 129/61; PULSE 70; RESP 16; TEMP 36.8; O2SAT 98
--- NOTE | 2023-05-24 08:20 | ED.EXTPRO ---
HPI - Extremity Problem General Chief complaint: Extremity Problem Stated complaint: cant sleep; foot red and swollen Time Seen by Provider: 05/24/23 07:55 Source: patient Mode of arrival: ambulatory Limitations: no limitations History of Present Illness HPI Narrative: patient comes to the emergency room complaining of right lower extremity pain and swelling. Patient states that he has chronic venous stasis, has a visiting nurse that takes care of a nonhealing wound in the calf . However, over last 2-3 days, patient started noticing that he has significant pain in the right lower extremity and it has been more erythematous and swollen than usual. Related Data Home Medications Medication Instructions Recorded Confirmed insulin aspart U-100 100 unit/mL 1 sliding scale dose subcut 12/14/20 05/20/23 subcutaneous solution (Novolog USEASDIRECTD U-100 Insulin aspart) ipratropium 20 mcg-albuterol 100 1 puff inhalation TID 12/14/20 05/20/23 mcg/actuation mist for inhalation (Combivent Respimat) multivitamin 1 tab PO DAILY 12/14/20 05/20/23 atorvastatin 40 mg tablet 40 mg PO BEDTIME 06/13/21 05/20/23 pregabalin 150 mg capsule 150 mg PO QID PRN Pain, Moderate 06/13/21 05/20/23 insulin degludec 100 unit/mL (3 70 unit subcut DAILY 10/20/22 05/20/23 mL) subcutaneous pen (Tresiba FlexTouch U-100 insulin) metoprolol succinate 25 mg 25 mg PO DAILY 01/04/23 05/20/23 tablet,extended release 24 hr oxycodone 5 mg tablet 5 mg PO QID PRN Severe Pain (Scale 01/04/23 05/20/23 Score 7-10) budesonide-formoterol HFA 80 2 puff inhalation BID 01/31/23 05/20/23 mcg-4.5 mcg/actuation aerosol inhaler (Symbicort) cholecalciferol (vitamin D3) 25 25 mcg PO DAILY 01/31/23 05/20/23 mcg (1,000 unit) capsule (Vitamin D3) dronedarone 400 mg tablet (Multaq) 400 mg PO BID 01/31/23 05/20/23 fluticasone propionate 50 1 spray intranasal DAILY PRN 01/31/23 05/20/23 mcg/actuation nasal Allergy Symptoms spray,suspension vitamin B complex 1 tab PO DAILY 01/31/23 05/20/23 losartan 25 mg tablet 25 mg PO DAILY 02/09/23 05/20/23 Previous Rx's Medication Instructions Recorded isosorbide mononitrate 30 mg 30 mg PO DAILY #30 tabs 10/02/22 tablet,extended release 24 hr linezolid 600 mg tablet 600 mg PO BID #14 tabs 02/02/23 phenazopyridine 200 mg tablet 200 mg PO TIDWM #14 tabs 02/02/23 apixaban 5 mg tablet (Eliquis) 5 mg PO BID #60 tabs 02/09/23 oxycodone 5 mg tablet 5 mg PO BID PRN pain #7 tabs 05/01/23 furosemide 20 mg tablet 20 mg PO DAILY PRN Edema #90 tabs 05/14/23 cephalexin 500 mg capsule 500 mg PO BID #19 caps 05/24/23 doxycycline hyclate 100 mg capsule 100 mg PO BID #19 caps 05/24/23 olanzapine 2.5 mg tablet (Zyprexa) 2.5 mg PO BEDTIME PRN insomnia #4 05/24/23 tabs pregabalin 150 mg capsule (Lyrica) 150 mg PO BID #10 caps 05/24/23 Allergies Allergy/AdvReac Type Severity Reaction Status Date / Time No Known Allergies Allergy Mild N/A Verified 05/24/23 07:59 Review of Systems Review of Systems: ?Constitutional : No Weight loss, No Fever, No Chills, No Night Sweats, No Fatigue, No Malaise ENT/Mouth : No Hearing loss, No Ear Pain, No Nasal Congestion, No Sinus Pain, No Hoarseness, No sore throat, No Rhinorrhea, No Swallowing Difficulty Eyes: No Eye Pain, No Swelling, No Redness, No Foreign Body, No Discharge, No Vision Changes Cardiovascular : No Chest Pain, No SOB, No Dyspnea on Exertion, No Orthopnea, No Edema, No Palpitations Respiratory : No Cough, No Sputum, No Wheezing, No Smoke Exposure, No Dyspnea Gastrointestinal : No Nausea, No Vomiting, No Diarrhea, No Constipation, No abdominal Pain, No Hematochezia, No Melena Genitourinary : no irregular bleeding, No Dysuria, No Urinary Frequency, No Hematuria, No Urinary Incontinence, No Urgency, No Flank Pain, No Urinary Flow Changes, No Hesitancy Musculoskeletal : No joint pain, No Myalgias, No Joint Swelling Skin :? complaining of erythema swelling of the right lower extremity Neuro : No Weakness, No Numbness, No Paresthesias, No Loss of Consciousness, No Dizziness, No Headache Psych : No Anxiety/Panic, No Depression, No SI/HI/AH/VH, No Social Issues, Heme/Lymph: No Bruising, No Bleeding,No Lymphadenopathy Endocrine : No Polyuria, No Polydipsia, No Temperature Intolerance [facility] Past Medical History Medical History Urinary tract infection due to Pseudomonas aeruginosa Recurrent UTI History of prostate cancer Acute retention of urine Persistent atrial fibrillation COVID-19 vaccine series completed History of cardioversion Hx of Lyme disease Tubular adenoma of colon History of ST elevation myocardial infarction (STEMI) (HFpEF) heart failure with preserved ejection fraction Cardiac pacemaker in situ (~12/2020) Hepatorenal syndrome Symptomatic bradycardia Ventricular bigeminy Thrombocytopenia PVC (premature ventricular contraction) CHF exacerbation Bifascicular block Pancytopenia Prostate CA Myocardial infarct, old CAD (coronary artery disease) HLD (hyperlipidemia) Diabetes HTN (hypertension) Surgical History History of cardiac pacemaker (~12/2020) History of cervical spinal surgery History of colonoscopy History of left inguinal hernia repair History of lumbar discectomy History of radical prostatectomy History of total right knee replacement (TKR) Social History Social History Household Members: Spouse Household Members Other:: dog Housing: House Are you a primary health care manager to a significant other at home: No Do you presently have visiting nurse or other home services: Yes Alcohol intake: never Patient Tobacco Use Status: Former Tobacco user Quit Date: age 22's Tobacco use type: Cigarette Years Smoked: 10 Smoked in Last 30 Days: No Use of substances other than those prescribed or required for medical reasons: No Advance Directives: Yes Advance Directives Information Provided: Yes Advance Directives on File: No Advance Directives Date on File: 01/04/23 service: Yes Current occupational status: retired Physical Exam Vital Signs: Vital Signs: Last Vital Signs Temp 98.3 F 05/24/23 10:38 Pulse 70 05/24/23 10:38 Resp 12 05/24/23 10:38 BP 105/54 L 05/24/23 10:38 Pulse Ox 97 05/24/23 10:38 O2 Del Method Room Air 05/24/23 10:38 BMI result Body Mass Index 27.5 Const: Other: ?Appearance: Alert.? Oriented X3.? No acute distress.?? Eyes: Pupils equal, round and reactive to light.? ENT: Pharynx normal.? Neck: Normal inspection.? Neck supple. No lymph nodes noted. No crepitus CVS: Normal heart rate and rhythm.? Pulses normal. Normal S1 and S2 Respiratory: No respiratory distress.? Breath sounds normal. No Wheezing. No rales? Abdomen: Soft and nontender. No rigidity. No distention.? Skin: Skin warm and dry.? Normal skin color.? Normal skin turgor.? Extremities:? right lower extremity has chronic venous stasis with acute erythema on the wound anterior aspect, mild pain to palpation, 1 chronic wound on the right calf medially, nonpitting edema, no significant? ?additional warmth Neuro:? Cranial nerves 2-12 grossly intact ?psych: Normal affect Course Course Course Narrative: - all of patient's labs and imaging pending Medical Decision Making Medical Decision Making [facility] Narrative: -My interpretation of labs: White blood cell count 13.7, likely secondary to cellulitis, lactic acid normal, normal blood pressure, no fever, sepsis no suspected. - My interpretation ultrasound: No obvious DVT - my interpretation of EKG: Av dual paced rhythm, heart rate 70, no ST segment depression or elevation, no T-wave inversion, QTC 518 - patient was given p.o. pregabalin per patient's request since his prescription has not been mailed out to him yet. Also, received the 1st dose of Keflex and doxycycline - case management/ PT services were offered to the patient, patient declined, states that he already has a visiting nurse - patient requesting a small prescription for sleeping Differential Diagnosis Differential Diagnoses: The differential diagnosis associated with the presentation includes ( DVT, cellulitis, contusion) Admission/Observation Consideration of admission/observation: Escalation of care including admission/observation considered ( admission was considered on arrival) Lab Data [facility] Lab Attestation statement: I reviewed the patient's lab results. 05/24/23 08:33 05/24/23 08:33 Labs: Lab Results 05/24/23 Range/Units 08:33 WBC 13.7 H (4.8-10.8) X10*3/uL RBC 3.85 L (4.60-5.80) X10*6/uL Hgb 12.3 L (14.0-18.0) g/dl Hct 37.1 L (42.0-52.0) % MCV 96.4 (80.0-98.0) fL MCH 31.9 (27.0-33.0) pg MCHC 33.2 (31.0-36.0) g/dl RDW 14.9 (11.0-16.0) % Plt Count 120 L D (160-400) X10*3/uL MPV 10.8 (9.4-12.4) fL Immature Gran % (Auto) 1.3 H (0.0-0.4) % Neut % (Auto) 85.5 H (45-73) % Lymph % (Auto) 7.3 L (20-40) % [place] % (Auto) 5.7 (2-11) % Eos % (Auto) 0.1 (0-4) % Baso % (Auto) 0.1 (0-2) % Lymph # (Auto) 1.0 L (1.2-4.9) X10*3/uL [place] # (Auto) 0.8 (0.1-1.2) X10*3/uL Eos # (Auto) 0.0 (0.0-0.4) X10*3/uL Baso # (Auto) 0.0 (0.0-0.2) X10*3/uL Abs Immat Gran (auto) 0.18 H (0.00-0.03) X10*3/uL Absolute Neuts (auto) 11.7 H (2.0-8.3) x10*3/uL Absolute Nucleated RBC 0.000 (0.0-0.012) X10*3/uL Nucleated RBC % (auto) 0.0 (0.0-0.2) /100WBC Sodium 137 (135-145) mmol/L Potassium 4.5 (3.3-5.1) mmol/L Chloride 103 (96-108) mmol/L Carbon Dioxide 23 (22-29) mmol/L Anion Gap 16 (12-20) BUN 29 H (9-16) mg/dL Creatinine 0.94 (0.5-1.4) mg/dL Estim Creat Clear Calc 58.4 Estimated GFR > 60 Random Glucose 171 H (60-115) mg/dL Lactic Acid 1.6 (0.5-2.0) mmol/L Calcium 9.0 (8.4-10.2) mg/dL Total Bilirubin 1.7 H (0.0-1.0) mg/dL Direct Bilirubin 0.7 H (0.0-0.5) mg/dL AST 23 (5-37) U/L ALT 36 (0-40) U/L Alkaline Phosphatase 101 (39-117) U/L B-Natriuretic Peptide 185 H (<100) pg/mL Total Protein 6.1 L (6.5-8.0) g/dL Albumin 3.7 (3.5-5.0) g/dL Independent Interpretation I performed an independent interpretation of an: Plain X-Ray ( my interpretation of chest x-ray :unremarkable) and Ultrasound Radiology Impression Discussion of test interpretation with radiology: I have reviewed the radiologist's reading. Radiologist Impression: FINDINGS: There is normal venous compression and respiratory variation and augmented flow. The visualized common femoral vein, superficial femoral vein, profunda femoral vein, popliteal vein, and the trifurcation region shows no evidence of deep venous thrombosis. There is no significant popliteal fossa cyst. US/US venous duplex LE RT IMPRESSION: No DVT demonstrated in the right lower extremity. FINDINGS: The cardiac and mediastinal contours are stable. Left subclavian dual chamber pacemaker unchanged in position. The lungs are clear. No pleural effusion or pneumothorax. There are right posterior seventh and eighth rib fractures and right anterior fifth through seventh rib fractures probably unchanged from April 2023 CT. Thoracic spine not well evaluated. Due to overlapping mediastinal structures. Degenerative changes of the spine. XR/XR chest 1V IMPRESSION: No evidence for acute disease in the chest. Right-sided rib fractures probably similar to 05/01/[address] Critical Care Time Critical Care Time Critical Care Time: Yes Total Critical Care Time: 60 Attestation: I have personally provided critical care time. Time includes review of lab data, radiology results, discussion with consultants, and monitoring for potential decompensation. Intervention performed as documented. Discharge Plan Discharge Clinical Impression: Cellulitis, Insomnia Patient Disposition: Home, Self-Care Instructions: Cellulitis (ED), Insomnia (ED) Additional Instructions: Please follow-up with your primary care physician tomorrow. If you have any worsening or new symptoms, please return to the emergency room or call 911 Prescriptions: New cephalexin 500 mg capsule 500 mg PO BID Qty: 19 0RF doxycycline hyclate 100 mg capsule 100 mg PO BID Qty: 19 0RF pregabalin [Lyrica] 150 mg capsule 150 mg PO BID Qty: 10 0RF olanzapine [Zyprexa] 2.5 mg tablet 2.5 mg PO BEDTIME PRN (Reason: insomnia) Qty: 4 0RF No Action furosemide 20 mg tablet 20 mg PO DAILY PRN (Reason: Edema) Qty: 90 1RF Combivent Respimat 20-100 mcg/actuation mist 1 puff inhalation TID multivitamin Tablet 1 tab PO DAILY insulin aspart U-100 [Novolog U-100 Insulin aspart] 100 unit/mL Solution 1 sliding scale dose SUBCUT USEASDIRECTD insulin degludec [Tresiba FlexTouch U-100] 100 unit/mL (3 mL) insulin pen 70 unit subcut DAILY metoprolol succinate 25 mg tablet extended release 24 hr 25 mg PO DAILY oxycodone 5 mg tablet 5 mg PO QID PRN (Reason: Severe Pain (Scale Score 7-10)) oxycodone 5 mg tablet 5 mg PO BID PRN (Reason: pain) Qty: 7 0RF Rx Instructions: Partial Fill upon patient request. vitamin B complex Tablet 1 tab PO DAILY fluticasone propionate 50 mcg/actuation spray,suspension 1 spray INTRANASAL DAILY PRN (Reason: Allergy Symptoms) cholecalciferol (vitamin D3) [Vitamin D3] 25 mcg (1,000 unit) Capsule 25 mcg PO DAILY budesonide-formoterol [Symbicort] 80-4.5 mcg/actuation HFA aerosol inhaler 2 puff inhalation BID Multaq 400 mg tablet 400 mg PO BID phenazopyridine 200 mg Tablet 200 mg PO TIDWM Qty: 14 0RF linezolid 600 mg tablet 600 mg PO BID Qty: 14 0RF atorvastatin 40 mg tablet 40 mg PO BEDTIME pregabalin 150 mg capsule 150 mg PO QID PRN (Reason: Pain, Moderate) isosorbide mononitrate 30 mg tablet extended release 24 hr 30 mg PO DAILY Qty: 30 3RF losartan 25 mg tablet 25 mg PO DAILY Eliquis 5 mg tablet 5 mg PO BID Qty: 60 0RF ciprofloxacin HCl 500 mg tablet 500 mg PO ONCE Qty: 1 0RF naproxen 500 mg tablet 500 mg PO ONCE Qty: 1 0RF lidocaine HCl 2 % jelly in applicator 10 ml intra-urethral ONCE Qty: 10 0RF
--- NOTE | 2023-05-24 08:36 | PC.NURSE ---
BEDSIDE ULTRASOUND AT BEDSIDE.
[2023-05-24 08:40] LABS: MANUAL DIFF FLAG NO
[2023-05-24 08:52] LABS: Basophils Percent Auto 0.1 % (0-2); Eosinophils Percent Auto 0.1 % (0-4); Hematocrit 37.1 % (42.0-52.0); Hemoglobin 12.3 g/dl (14.0-18.0); Imm Gran Abs Auto 0.18 X10*3/uL (0.00-0.03); Imm Gran Pct Auto 1.3 % (0.0-0.4); Lymphocytes Percent Auto 7.3 % (20-40); Mean Corpuscular HGB Conc 33.2 g/dl (31.0-36.0); Mean Corpuscular Hemoglobin 31.9 pg (27.0-33.0); Mean Corpuscular Volume 96.4 fL (80.0-98.0); Mean Platelet Volume 10.8 fL (9.4-12.4); Monocytes Absolute Auto 0.8 X10*3/uL (0.1-1.2); Monocytes Percent Auto 5.7 % (2-11); Neutrophils Absolute Auto 11.7 x10*3/uL (2.0-8.3); Neutrophils Percent Auto 85.5 % (45-73); Platelet Count 120 X10*3/uL (160-400); Red Blood Count 3.85 X10*6/uL (4.60-5.80); Red Cell Distribution Width 14.9 % (11.0-16.0); White Blood Count 13.7 X10*3/uL (4.8-10.8)
[2023-05-24 08:59] LABS: Lactic Acid 1.6 mmol/L (0.5-2.0)
--- NOTE | 2023-05-24 09:00 | PC.NURSE ---
PT R LOWER LEG IS BEET RED,WARM, TENDER, SWOLLEN WITH 3+ PITTING EDEMA. L LEG IS HAS 2+ PITTING EDEMA NO REDNESS NOTED. PT ABLE TO MOVE LOWER EXT.
[2023-05-24 09:03] LABS: Alanine Aminotransferase 36 U/L (0-40); Albumin Level 3.7 g/dL (3.5-5.0); Alkaline Phosphatase 101 U/L (39-117); Anion Gap 16 (12-20); Aspartate Amino Transferase 23 U/L (5-37); Bilirubin Direct 0.7 mg/dL (0.0-0.5); Bilirubin Total 1.7 mg/dL (0.0-1.0); Blood Urea Nitrogen 29 mg/dL (9-16); Carbon Dioxide 23 mmol/L (22-29); Chloride 103 mmol/L (96-108); Creatinine Clr Calc Pharmacy 58.4; Estimated Glomerular Filt Rate > 60; Glucose Random 171 mg/dL (60-115); Potassium 4.5 mmol/L (3.3-5.1); Sodium 137 mmol/L (135-145); Total Protein 6.1 g/dL (6.5-8.0)
[2023-05-24 09:07] LABS: B Type Natriuretic Peptide 185 pg/mL (<100)
[2023-05-24 09:47] VITALS: BP 103/54; PULSE 69; RESP 17; TEMP 36.8; O2SAT 94
--- NOTE | 2023-05-24 10:13 | ECG_ITS ---
Test Reason : LEFT FOOT PAIN Blood Pressure : / mmHG Vent. Rate : 070 BPM Atrial Rate : 070 BPM P-R Int : 196 ms QRS Dur : 168 ms QT Int : 480 ms P-R-T Axes : 000 -71 106 degrees QTc Int : 518 ms AV dual-paced rhythm Abnormal ECG When compared with ECG of 24-OCT-2022 10:57, Premature ventricular complexes are no longer Present Vent. rate has decreased BY 7 BPM Referred By: Fabiola Benavidez Electronically Signed By:JASKARAN CHAVEZ
[2023-05-24 10:38] VITALS: BP 105/54; PULSE 70; RESP 12; TEMP 36.8; O2SAT 97
[2023-05-24] MEDS: cephALEXin 500 MG CAPSULE PO (11:00)
[2023-05-24] MEDS: Pregabalin 150 MG CAPSULE PO (11:01)
[2023-05-24] MEDS: Doxycycline Monohydrate 100 MG CAPSULE PO (11:01)
== END 2023-05-24 11:27 | disposition home or self-care (01) ==
PROVIDERS: Emergency Provider Emergency Medicine; PCP Internal Medicine
DX: L03.115 Cellulitis of right lower limb (principal); G47.00 Insomnia, unspecified; R60.0 Localized edema; N39.0 Urinary tract infection, site not specified; R06.02 Shortness of breath; M54.50 Low back pain, unspecified; M79.672 Pain in left foot; R30.0 Dysuria; R94.31 Abnormal electrocardiogram [ECG] [EKG]; I25.10 Atherosclerotic heart disease of native coronary artery without angina pectoris; Z87.891 Personal history of nicotine dependence; Z79.899 Other long term (current) drug therapy
CPT/HCPCS: 36415; 51798; 71045; 80048; 80076; 83605; 83880; 85025; 87040; 93005; 93971; 99284; 99285

== ENCOUNTER 2023-05-28 14:50 | Outpatient (AMB) | payer MEDICARE, SELFPAY ==
--- NOTE | 2023-05-28 15:08 | MHC.OFFVIS ---
Intake Intake Visit Reasons: Urodynamics Intake Note: Patient presents today for a URODYNAMIC Procedure: Meds: None Allergies to Antibiotic: No Known Allergies Blood Thinner: None Daycare Provider Required: No Accompanied by: Self / Same As Patient Allergies No Known Allergies Allergy (Mild, Verified 05/28/23 15:12) N/A HPI HPI Comments History of Present Illness Details Jewel is an 87-year-old male who presents today to the office for a follow-up. 05/28/2023-- He is followed today for a urodynamics procedure. He was last seen by me on 05/20/23. Comorbidity, s/p radical prostatectomy and radiation for prostate cancer. The patient states that he was followed by another urologist, he has been treated with various mediations that he states did not help, including anticholinergis, trial of Botox bladder injections, AUS sphincter, (the cuff was removed). Also he had a Mena catheter placed for urinary incontinence, which he felt seemed to help the situation where he was not leaking; but developed CAUTI's, and on his most recent hospital visit, the Mena catheter was removed because it was felt to be nidus for his recurrent UTI. His past medical history is significant for hypertension, CAD, hyperlipidemia, and chronic thrombocytopenia. His last positive UTI culture with susceptibilities identified was on 01/23/23 with pseudomonas and enterococcus. He states that he still has urinary leakage. He is wearing pads. Patient states that he is extremely distressed regarding his urine leakage. He states that he is spending a lot of money on pads, and he is very frustrated that nothing has helped him. CMG parameters detailed below. Interpretation: Complex uroflow was not obtained, as patient was unable to void due to constant dripping and leakage into pad Catherized PVR 10 mL. Complex CMG-During the filling phase there was first sensation was at 64 mL, Leakage was noted with Valsalva at 122 mL at detrusor LPP of 4.6 and Abd LPP of 115 cm. Strong urge was noted at 155 mL, bladder capacity was less than average, the patient felt that he was at capacity at 162 mL and patient used abdominal muscles to void and pushed ureteral catheter out, he voided 126 mL. EMG- Appropriate changes in the waveforms were noted during the filling phase. There was a decrease in the EMG activity during the voiding phase. Findings consistent with less than average functional bladder capacity and ISD. Also findings are mixed in regard to bladder function as there was significant use of abdominal pressure during the voiding phase and suggest impaired bladder contractility. Lengthy discussion with the patient regarding the results of CMG and limited treatment plan as he has failed multiple modes of therapy. Discussed that he has failed AUS and male sling is less likely to be beneficial. He has questions regarding placement of SP tube, which may not be ideal due to poor sphinter. Bulking agent may be less effective due to scar tissue. Reviewed pictures of penile clamps and he was given info on the 'dribbling stop penile clamp. 30 minutes spent speaking with the patient regarding treatment plan. Plan: He is agreeable to trial the penile clamp. He will FU with EMBEDDED FIRMWARE DEVELOPER for teaching on how to use the clamp effectively. Pelvic floor PT would also be beneficial [facility] Medical History Urinary tract infection due to Pseudomonas aeruginosa Recurrent UTI History of prostate cancer Acute retention of urine Persistent atrial fibrillation COVID-19 vaccine series completed History of cardioversion Hx of Lyme disease Tubular adenoma of colon History of ST elevation myocardial infarction (STEMI) (HFpEF) heart failure with preserved ejection fraction Cardiac pacemaker in situ (~12/2020) Hepatorenal syndrome Symptomatic bradycardia Ventricular bigeminy Thrombocytopenia PVC (premature ventricular contraction) CHF exacerbation Bifascicular block Pancytopenia Prostate CA Myocardial infarct, old CAD (coronary artery disease) HLD (hyperlipidemia) Diabetes HTN (hypertension) Surgical History History of cardiac pacemaker (~12/2020) History of cervical spinal surgery History of colonoscopy History of left inguinal hernia repair History of lumbar discectomy History of radical prostatectomy History of total right knee replacement (TKR) Social History Household Members: Spouse Household Members Other:: dog Housing: House Are you a primary daycare manager to a significant other at home: No Do you presently have visiting nurse or other home services: Yes Alcohol intake: never Patient Tobacco Use Status: Former Tobacco user Quit Date: age 22's Tobacco use type: Cigarette Years Smoked: 10 Advance Directives Date on File: 01/04/23 service: Yes Current occupational status: retired Office Procedures Bladder/Catheter Procedure Details: Under sterile technique a 14 [place]ambian coude catheter was passed transurethrally, 10 mL urine drained 02300-Thpfci Bladder Catheter Procedure code (CPT) selection complete Urodynamic Studies Consent Discussed risk and benefit or proposed procedure with the patient. Information consent for procedure given to the patient. Discussed technical aspects, risks, benefits and alternatives in full. Addressed all of the patient's questions and concerns regarding the procedure. The patient demonstrated knowledge and understanding. They wish to proceed with this procedure. Preparation The patient was prepped in the usual manner. A foreign language teacher was present and in the room. Genitalia was prepped with betadine solution in a sterile manner. Prep: The patient was prepped in the usual manner. A foreign language teacher was present and in the room. Genitalia was prepped with betadine solution in a sterile manner. 68141-Kfxjzzdetwvtrd w/ MACHINE MAINTENANCE 39674-Lfre/Urinary Muscle Study 31875-Bkklm-Zppjjzqdd Pressure Test Procedure code (CPT) selection complete Office Meds nitrofurantoin monohydrate/macrocrystals 100 mg capsule Performing Provider: Ed Ramirez MD [facility] Administered by: Benito Oscar LPN on 05/28/23 16:14 Dose Route Admin Location Dispensed Lot Number Expiration Date [facility] Pen Maker 100 mg PO 1 cap Results AMB Urinalysis, Automated UA Leukoctes 500 Vladimir/uL Last Edit by IRVING Mariee on 05/28/23 16:24 3+ Lashell Carrillo 05/28/23 16:24 UA Nitrite Negative Last Edit by IRVING Mariee on 05/28/23 16:24 UA Urobilinogen 0.2 mg/dL Last Edit by IRVING Mariee on 05/28/23 16:24 UA Protein 30 mg/dL Last Edit by IRVING Mariee on 05/28/23 16:24 1+ Lashell Carrillo 05/28/23 16:24 UA pH 5.5 Last Edit by IRVING Mariee on 05/28/23 16:24 UA Blood 200 Freddie/uL Last Edit by IRVING Mariee on 05/28/23 16:24 3+ Lashell Carrillo 05/28/23 16:24 UA Specific [place] 1.025 Last Edit by IRVING Mariee on 05/28/23 16:24 UA Ketone Negative Last Edit by IRVING Mariee on 05/28/23 16:24 UA Bilirubin 0 mg/dL Last Edit by IRVING Mariee on 05/28/23 16:24 UA Glucose 0 mg/dL Last Edit by IRVING Mariee on 05/28/23 16:24 Results Reviewed Results Reviewed: Laboratory Last Values Urine pH (Auto) 5.5 05/28/23 16:23 Specific [place] (Auto) 1.025 05/28/23 16:23 Urine Protein (Auto) 30 mg/dL 05/28/23 16:23 Glucose (UA)(Auto) 0 mg/dL 05/28/23 16:23 Urine Ketones (Auto) Negative 05/28/23 16:23 Urine Blood (Auto) 200 Freddie/uL 05/28/23 16:23 Urine Nitrite (Auto) Negative 05/28/23 16:23 Urine Bilirubin (Auto) 0 mg/dL 05/28/23 16:23 Urine Urobilinogen (Auto) 0.2 mg/dL 05/28/23 16:23 Leukocyte Esterase (Auto) 500 Vladimir/uL 05/28/23 16:23 Assessment & Plan Assessment & Plan (1) Urinary incontinence due to urethral sphincter incompetence: Code(s): N36.42 - Intrinsic sphincter deficiency (ISD); R32 - Unspecified urinary incontinence (2) Mixed stress and urge urinary incontinence: Code(s): N39.46 - Mixed incontinence (3) Voiding dysfunction: Code(s): N39.8 - Other specified disorders of urinary system Plan He is agreeable to trial the penile clamp. He will FU with EMBEDDED FIRMWARE DEVELOPER for teaching on how to use the clamp effectively. Pelvic floor PT would also be beneficial Orders: Orders AMB Urinalysis Automated Today Z13.9 - Encounter for screening, unspecified AMB Bladder/Catheter Procedure Today N36.42 - Intrinsic sphincter deficiency (ISD), R32 - Unspecified urinary incontinence AMB Urodynamics Studies Today R32 - Unspecified urinary incontinence Patient Instructions: The patient had an opportunity to ask questions regarding treatment plan. All questions were answered. Imaging, Laboratory studies and physical exam results were discussed and reviewed in detail. No major barriers to understanding were identified. The patient expressed understanding and agreement with the above treatment plan.? ? ? The patient is aware they should contact our office by phone for worsening of their current condition or the appearance of new symptoms. Compliance is encouraged with any medications and followup testing that is ordered.? ? ? It is a privilege to be allowed the opportunity to participate in the urologic care of your patient. If you have any questions or concerns regarding treatment for the above conditions please do not hesitate to contact me. The office telephone contact is [phone].? ? ? This note is constructed in part using voice recognition software. While every effort has been made to ensure accuracy fiber drier operator errors may have been included.? ? ? Yours sincerely,? ? ? Ed Ramirez MD? Coding Level of Care Code Est Pt Level 3 (37333) Diagnoses Urinary incontinence due to urethral sphincter incompetence N36.42; R32 Mixed stress and urge urinary incontinence N39.46 Voiding dysfunction N39.8 CPT Codes Bladder/Catheter Procedure - CPT: 78294-Pqlequ Bladder Catheter ([id number]) Urodynamic Studies - CPT: 43811-Bmfcnrimbldmfd w/ MACHINE MAINTENANCE ([id number]) Urodynamic Studies - CPT: 77509-Moac/Urinary Muscle Study ([id number]) Urodynamic Studies - CPT: 15925-Ylrxw-Yhsinjmrh Pressure Test ([id number]) Complex Uroflow Complex uroflow performed by: Ed Ramirez Comments: Procedure unable to be completed patient unable to void. Cystometrogram Void Pressure Cystometrogram void pressure performed by: Ed Ramirez Vaginal/rectal catheter type: rectal First sensation at (mL): 64 First detrussor pressure (cm H2O): 6.9 Second sensation at (cc): 70 Second detrussor pressure (cm H2O): 6.0 Strong desire to void occured at (mL): 155 Strong desire detrussor pressure (cm H2O): 3.0 Maximum fill (mL): 155 Maximum fill detrussor pressure (cm H2O): 3.2 Maximum flow rate (mL/second): 14 Additional details: Max detrusor voiding pressure not able to be determined patient used abdominal muscles to void and pushed ureteral catheter out.
== END 2023-05-28 16:23 | disposition home or self-care (01) ==
LOC: HO.HUSH 14:51
PROVIDERS: PCP Internal Medicine; Visit Provider Urology
DX: R32 Unspecified urinary incontinence (principal); Z13.9 Encounter for screening, unspecified
CPT/HCPCS: 51728; 51784; 51797

== ENCOUNTER → 2023-05-28 14:50 | Outpatient (BNVA) | payer MEDICARE, SELFPAY | PROVIDERS: PCP Internal Medicine; Visit Provider Urology | DX: N36.42 Intrinsic sphincter deficiency (ISD) (principal); N39.46 Mixed incontinence; N39.8 Other specified disorders of urinary system | CPT/HCPCS: 51728; 51784; 51797; 81003 ==

== ENCOUNTER 2023-05-30 08:33 | Inpatient (IN) | payer MEDICARE, SELFPAY ==
[2023-05-30] VITALS (7 sets, daily range): BP systolic 98–145; BP diastolic 54–63; PULSE 68–73; RESP 16–18; TEMP 36.2–37.3; O2SAT 95–100; BMI 28.3
--- NOTE | 2023-05-30 09:18 | PC.NURSE ---
a&ox3, vss aside from low grade temp (99.0 orally), nsr on the cardiac specialist. pt has pacemaker - spikes displaying on cardiac specialist. pt comes in today d/t past dx of cellulitis from ED on thursday. pt states he has been med compliant w/ abx that was prescribed but states that he feels like his leg looks worse. 2+ pitting edema noted on LE bilaterally. right leg shows erythema, taught skin, and skin warm to touch. pt denies any recent fevers/chills at this time. lung sounds clear throughout. pt resting comfortably in no apparent distress w/ bedside. respirations even and unlabored. call pal placed within reach.
--- NOTE | 2023-05-30 10:40 | ED.GENADULT ---
HPI - General Adult General Chief complaint: General Medical Stated complaint: cellulitis Time Seen by Provider: 05/30/23 09:17 Source: patient Mode of arrival: ambulatory Limitations: no limitations History of Present Illness HPI narrative: 67-year-old male history of prostate CA, paroxysmal atrial fibrillation, congestive heart failure with preserved EF, pacemaker, urinary incontinence who presents emergency department for evaluation of worsening cellulitis. The patient was seen on 05/24/2023 and diagnosed with right lower extremity cellulitis. [place] WBC [place] 36563, blood cultures were negative. Patient was started on Keflex 500 mg b.i.d. and doxycycline 100 mg b.i.d. He states that despite taking his medication his cellulitis is gotten worse and is now spread up to his right inner thigh. He was seen by his visiting nurse advised to go to the emergency department for re-evaluation. He states he has peripheral edema times months he is taking furosemide and he is leaking fluid from his right leg wounds. He states that the visiting nurses been caring for his leg wounds times months. He denied fever, chills, nausea, vomiting, chest pain, shortness of breath, fatigue or weakness. Related Data Home Medications Medication Instructions Recorded Confirmed insulin aspart U-100 100 unit/mL 1 sliding scale dose subcut 12/14/20 05/20/23 subcutaneous solution (Novolog USEASDIRECTD U-100 Insulin aspart) ipratropium 20 mcg-albuterol 100 1 puff inhalation TID 12/14/20 05/20/23 mcg/actuation mist for inhalation (Combivent Respimat) multivitamin 1 tab PO DAILY 12/14/20 05/20/23 atorvastatin 40 mg tablet 40 mg PO BEDTIME 06/13/21 05/20/23 pregabalin 150 mg capsule 150 mg PO QID PRN Pain, Moderate 06/13/21 05/20/23 insulin degludec 100 unit/mL (3 70 unit subcut DAILY 10/20/22 05/20/23 mL) subcutaneous pen (Tresiba FlexTouch U-100 insulin) metoprolol succinate 25 mg 25 mg PO DAILY 01/04/23 05/20/23 tablet,extended release 24 hr oxycodone 5 mg tablet 5 mg PO QID PRN Severe Pain (Scale 01/04/23 05/20/23 Score 7-10) budesonide-formoterol HFA 80 2 puff inhalation BID 01/31/23 05/20/23 mcg-4.5 mcg/actuation aerosol inhaler (Symbicort) cholecalciferol (vitamin D3) 25 25 mcg PO DAILY 01/31/23 05/20/23 mcg (1,000 unit) capsule (Vitamin D3) dronedarone 400 mg tablet (Multaq) 400 mg PO BID 01/31/23 05/20/23 fluticasone propionate 50 1 spray intranasal DAILY PRN 01/31/23 05/20/23 mcg/actuation nasal Allergy Symptoms spray,suspension vitamin B complex 1 tab PO DAILY 01/31/23 05/20/23 losartan 25 mg tablet 25 mg PO DAILY 02/09/23 05/20/23 Previous Rx's Medication Instructions Recorded isosorbide mononitrate 30 mg 30 mg PO DAILY #30 tabs 10/02/22 tablet,extended release 24 hr linezolid 600 mg tablet 600 mg PO BID #14 tabs 02/02/23 phenazopyridine 200 mg tablet 200 mg PO TIDWM #14 tabs 02/02/23 apixaban 5 mg tablet (Eliquis) 5 mg PO BID #60 tabs 02/09/23 oxycodone 5 mg tablet 5 mg PO BID PRN pain #7 tabs 05/01/23 furosemide 20 mg tablet 20 mg PO DAILY PRN Edema #90 tabs 05/14/23 cephalexin 500 mg capsule 500 mg PO BID #19 caps 05/24/23 doxycycline hyclate 100 mg capsule 100 mg PO BID #19 caps 05/24/23 olanzapine 2.5 mg tablet (Zyprexa) 2.5 mg PO BEDTIME PRN insomnia #4 05/24/23 tabs pregabalin 150 mg capsule (Lyrica) 150 mg PO BID #10 caps 05/24/23 Allergies Allergy/AdvReac Type Severity Reaction Status Date / Time No Known Allergies Allergy Mild N/A Verified 05/30/23 08:39 Review of Systems Review of Systems: Yes all other systems are reviewed and are negative [facility] Past Medical History [facility] Narrative: Social history: He denies tobacco use. Occasionally drinks alcohol. He denies drug use. Medical History Urinary tract infection due to Pseudomonas aeruginosa Recurrent UTI History of prostate cancer Acute retention of urine Persistent atrial fibrillation COVID-19 vaccine series completed History of cardioversion Hx of Lyme disease Tubular adenoma of colon History of ST elevation myocardial infarction (STEMI) (HFpEF) heart failure with preserved ejection fraction Cardiac pacemaker in situ (~12/2020) Hepatorenal syndrome Symptomatic bradycardia Ventricular bigeminy Thrombocytopenia PVC (premature ventricular contraction) CHF exacerbation Bifascicular block Pancytopenia Prostate CA Myocardial infarct, old CAD (coronary artery disease) HLD (hyperlipidemia) Diabetes HTN (hypertension) Surgical History History of colonoscopy History of cervical spinal surgery History of radical prostatectomy History of left inguinal hernia repair History of total right knee replacement (TKR) History of lumbar discectomy History of cardiac pacemaker (~12/2020) Social History Social History Household Members: Spouse Household Members Other:: dog Housing: House Are you a primary residential child care counselor to a significant other at home: No Do you presently have visiting nurse or other home services: Yes Alcohol intake: current Alcohol intake frequency: holidays/special occasions only Alcohol type: wine Patient Tobacco Use Status: Former Tobacco user Quit Date: age 22's Tobacco use type: Cigarette Years Smoked: 10 Smoked in Last 30 Days: No Use of substances other than those prescribed or required for medical reasons: No Advance Directives: No Advance Directives Information Provided: Yes Advance Directives Date on File: 01/04/23 service: Yes Current occupational status: retired Physical Exam ED Vital Signs: Vital Signs - 24 hr 05/30/23 08:39 05/30/23 09:05 Temperature 99.1 F 99.0 F Pulse Rate 73 70 Respiratory Rate 18 16 Blood Pressure 145/62 H 130/54 L Pulse Oximetry 95 98 Oxygen Delivery Method Room Air Room Air BMI result Body Mass Index 28.3 Vital signs were normal: Exam: General: Awake, alert in no distress Head: Normocephalic, atraumatic EENT: PERRL, Lids normal, sclera normal, conjunctiva normal, nose normal , ears normal, throat without erythema or exudates Neck: Supple, no adenopathy, trachea midline and nontender Lung: breath sounds symmetric, no wheezing, rales or rhonchi Chest: symmetric movement, nontender Heart: regular rate and rhythm, normal S1, S2 no murmurs or rubs Abdomen: soft, non-tender, nondistended, normal bowel sounds Back: no vertebral tenderness, no CVAT Extremities: Patient does have 1+ peripheral edema to the right lower extremity with the right leg being larger than the left, patient has chronic skin changes and very thin dry skin, there are 2 small wounds to his right lower extremity which were leaking fluid, patient has erythema from his ankle to just below his knee and he has erythema extending along the medial aspect of the right thigh pain . this erythema is warm to the touch Neuro: Awake, alert, oriented, normal speech, cranial nerves intact, moves all extremities symmetrically Psych: Pleasant, cooperative Medical Decision Making Medical Decision Making [facility] Narrative: 67-year-old male history of prostate CA, paroxysmal atrial fibrillation, congestive heart failure with preserved EF, pacemaker, urinary incontinence who presents emergency department for worsening cellulitis of his right leg. Patient was seen on 05/24/2023 and diagnosed with cellulitis, started on Keflex and doxycycline. Patient's cellulitis is extended and is now traveling up his left inner thigh. Patient has had no concerning systemic symptoms such as fever, chills, nausea, vomiting or fatigue. Patient does have peripheral edema with weeping through wounds in his right leg-she had a negative DVT study 05/24/2023. Patient's vital signs were normal exam did reveal asymmetric swelling with the right lower extremity being larger than the left with 1+ pitting edema bilaterally. Following evaluation was ordered: CBC, CMP, PT/INR, PTT, ESR, CRP, lactic acid blood cultures x2. I ordered vancomycin 2 g IV and ceftriaxone 1 g IV. I will discuss admission with the covering hospitalist Differential Diagnosis Differential Diagnoses: The differential diagnosis associated with the presentation includes Differential diagnosis includes was limited to cellulitis, DVT, osteomyelitis, peripheral vascular disease Admission/Observation Consideration of admission/observation: Escalation of care including admission/observation considered Consult Healthcare Provider Management of the patient was discussed with: Hospitalist Lab Data [facility] Lab Attestation statement: I reviewed the patient's lab results. Chronic Conditions Patient?s care impacted by: Other (Congestive heart failure, peripheral edema, atrial fibrillation) Discharge Plan Discharge Patient Disposition: Admitted As Inpatient Prescriptions: No Action furosemide 20 mg tablet 20 mg PO DAILY PRN (Reason: Edema) Qty: 90 1RF Combivent Respimat 20-100 mcg/actuation mist 1 puff inhalation TID multivitamin Tablet 1 tab PO DAILY insulin aspart U-100 [Novolog U-100 Insulin aspart] 100 unit/mL Solution 1 sliding scale dose SUBCUT USEASDIRECTD insulin degludec [Tresiba FlexTouch U-100] 100 unit/mL (3 mL) insulin pen 70 unit subcut DAILY metoprolol succinate 25 mg tablet extended release 24 hr 25 mg PO DAILY oxycodone 5 mg tablet 5 mg PO QID PRN (Reason: Severe Pain (Scale Score 7-10)) oxycodone 5 mg tablet 5 mg PO BID PRN (Reason: pain) Qty: 7 0RF Rx Instructions: Partial Fill upon patient request. cephalexin 500 mg capsule 500 mg PO BID Qty: 19 0RF doxycycline hyclate 100 mg capsule 100 mg PO BID Qty: 19 0RF pregabalin [Lyrica] 150 mg capsule 150 mg PO BID Qty: 10 0RF olanzapine [Zyprexa] 2.5 mg tablet 2.5 mg PO BEDTIME PRN (Reason: insomnia) Qty: 4 0RF vitamin B complex Tablet 1 tab PO DAILY fluticasone propionate 50 mcg/actuation spray,suspension 1 spray INTRANASAL DAILY PRN (Reason: Allergy Symptoms) cholecalciferol (vitamin D3) [Vitamin D3] 25 mcg (1,000 unit) Capsule 25 mcg PO DAILY budesonide-formoterol [Symbicort] 80-4.5 mcg/actuation HFA aerosol inhaler 2 puff inhalation BID Multaq 400 mg tablet 400 mg PO BID phenazopyridine 200 mg Tablet 200 mg PO TIDWM Qty: 14 0RF linezolid 600 mg tablet 600 mg PO BID Qty: 14 0RF atorvastatin 40 mg tablet 40 mg PO BEDTIME pregabalin 150 mg capsule 150 mg PO QID PRN (Reason: Pain, Moderate) isosorbide mononitrate 30 mg tablet extended release 24 hr 30 mg PO DAILY Qty: 30 3RF losartan 25 mg tablet 25 mg PO DAILY Eliquis 5 mg tablet 5 mg PO BID Qty: 60 0RF ciprofloxacin HCl 500 mg tablet 500 mg PO ONCE Qty: 1 0RF naproxen 500 mg tablet 500 mg PO ONCE Qty: 1 0RF lidocaine HCl 2 % jelly in applicator 10 ml intra-urethral ONCE Qty: 10 0RF
--- NOTE | 2023-05-30 11:31 | PC.NURSE ---
pt continues to be a&ox3, vss and up to date, nsr on plastic extruding machine operator w/ pacemaker spikes. 20gIV placed in right AC w/o complications. labs drawn and sent to lab. medications administered per provider order. pt resting comfortably in no apparent distress. respirations even and unlabored. call pal placed within reach.
[2023-05-30 11:42] LABS: Alanine Aminotransferase 45 U/L (0-40); Albumin Level 3.2 g/dL (3.5-5.0); Alkaline Phosphatase 91 U/L (39-117); Anion Gap 12 (12-20); Aspartate Amino Transferase 35 U/L (5-37); Bilirubin Total 0.8 mg/dL (0.0-1.0); Blood Urea Nitrogen 25 mg/dL (9-16); C Reactive Protein 4.02 mg/dL (< or = 0.50); Carbon Dioxide 23 mmol/L (22-29); Chloride 107 mmol/L (96-108); Creatinine Clr Calc Pharmacy 58.2; Estimated Glomerular Filt Rate > 60; Glucose Random 249 mg/dL (60-115); Potassium 4.4 mmol/L (3.3-5.1); Sodium 138 mmol/L (135-145); Total Protein 5.6 g/dL (6.5-8.0)
--- NOTE | 2023-05-30 12:16 | PC.NURSE ---
medication administered per provider order.
--- NOTE | 2023-05-30 13:00 | PC.NURSE ---
admitting PA bedside speaking w/ pt to formulate plan for admission.
--- NOTE | 2023-05-30 13:04 | PM.IMHP ---
History of Present Illness Date of Service: 05/30/23 Attending physician on admission: Naz Puckett Chief Complaint: RLE infection 87-year-old male with history of prostate cancer s/p radiation therapy, urinary incontinence, HFpEF, paroxysmal atrial fibrillation anticoagulated with Eliquis, pacemaker in place, coronary artery disease, insulin-dependent type 2 diabetes, hyperlipidemia, COPD, chronic venous stasis dermatitis, and diabetic polyneuropathy presented to the ED earlier today for evaluation of worsening redness in the right lower extremity that has been ongoing for a total of 2 weeks. He was seen in the ED 1 week ago and started on doxycycline and Keflex for right lower extremity cellulitis which he has been taking as prescribed. Unfortunately, he has chronic bilateral lower extremity edema with weeping shallow ulcerations of the right lower extremity and the erythema has been worsening. There is mild discomfort with palpation. He denies any fevers or chills. He does endorse long standing orthopnea and ROBERSON. No sob at rest, chest pain, palpitations, or lightheadedness. He has VNA in the home. On arrival, VSS normal, patiently slightly hypertensive. No leukocytosis (WBC improved from 13 --> 9). Renal function baseline, electrolytes normal. Glucose 249. CRP 4.02, ESR 36. Wound culture pending. CXR pending. In the ED, has received IV vanco and rocephin. Review of Systems Review of Systems: General: No fevers, malaise, unintentional weight loss HEENT: No blurred vision, diplopia. No sore throat, nasal congestion, rhinorrhea, sinus pain, ear pain Cardiovascular: No chest pain, palpitations. +ble edema Respiratory: +orthopnea, +roberson. No shortness of breath at rest, wheezing, cough GI: No abdominal pain, nausea, vomiting, diarrhea, constipation, melena, hematochezia : No dysuria, hematuria, increased urinary frequency, decreased urinary output MSK: No myalgia, back pain Neuro: No headaches, weakness, paresthesias Skin: No rashes or lesions. +erythema, warmth RLE, +RLE uleration [facility] Medical History Urinary tract infection due to Pseudomonas aeruginosa Recurrent UTI History of prostate cancer Acute retention of urine Persistent atrial fibrillation COVID-19 vaccine series completed History of cardioversion Hx of Lyme disease Tubular adenoma of colon History of ST elevation myocardial infarction (STEMI) (HFpEF) heart failure with preserved ejection fraction Cardiac pacemaker in situ (~12/2020) Hepatorenal syndrome Symptomatic bradycardia Ventricular bigeminy Thrombocytopenia PVC (premature ventricular contraction) CHF exacerbation Bifascicular block Pancytopenia Prostate CA Myocardial infarct, old CAD (coronary artery disease) HLD (hyperlipidemia) Diabetes HTN (hypertension) Surgical History History of colonoscopy History of cervical spinal surgery History of radical prostatectomy History of left inguinal hernia repair History of total right knee replacement (TKR) History of lumbar discectomy History of cardiac pacemaker (~12/2020) Social History Household Members: Spouse Household Members Other:: dog Housing: House Are you a primary career education teacher to a significant other at home: No Do you presently have visiting nurse or other home services: Yes Alcohol intake: current Alcohol intake frequency: holidays/special occasions only Alcohol type: wine Patient Tobacco Use Status: Former Tobacco user Quit Date: age 22's Tobacco use type: Cigarette Years Smoked: 10 Smoked in Last 30 Days: No Use of substances other than those prescribed or required for medical reasons: No Advance Directives: No Advance Directives Information Provided: Yes Advance Directives Date on File: 01/04/23 service: Yes Current occupational status: retired Meds Allergies Allergy/AdvReac Type Severity Reaction Status Date / Time No Known Allergies Allergy Mild N/A Verified 05/30/23 08:39 Active Medications: Current Medications Acetaminophen (Acetaminophen 325 Mg Tablet) 650 mg PO Q6H PRN PRN Reason: Pain, Mild (Pain Scale 1-3) Apixaban (Apixaban 5 Mg Tablet) 5 mg PO BID [facility] Dextrose (Dextrose 50 % 25 Gm/50 Ml Syringe) 25 gm IVPUSH Q15M PRN; Protocol PRN Reason: per Hypoglycemia Standing Ord. Docusate Sodium (Docusate Sodium 100 Mg Capsule) 100 mg PO DAILY PRN PRN Reason: Constipation Glucose (Glucose Gel 15 Gm Gel..Gram.) 15 gm PO Q15M PRN; Protocol PRN Reason: per Hypoglycemia Standing Ord. Cefepime HCl 2 gm/ Sodium (Chloride) 50 mls @ 100 mls/hr IV Q8H [facility] Insulin Human Lispro (Insulin Lispro 100 Unit/Ml 3 Ml Vial) 0 unit SUBCUT QIDACHS [facility]; Protocol Ondansetron HCl (Ondansetron Hcl 4 Mg/2 Ml Vial) 4 mg IVPUSH Q8H PRN PRN Reason: Nausea and Vomiting Pharmacy Consult (Consult Rx Vancomycin Dosing) 1 each MISCELLANE DAILY PRN PRN Reason: Consult order Pharmacy Consult (Consult Rx Vancomycin Dosing) 1 each MISCELLANE DAILY PRN PRN Reason: Consult order Sodium Chloride (0.9 % Sodium Chloride Flush 3 Ml Syringe) 3 ml IVFLUSH QSHIFT [facility] Home Medications Medication Instructions Recorded Confirmed Last Taken Type insulin aspart U-100 100 unit/mL 1 sliding scale dose subcut 12/14/20 05/30/23 05/30/23 History subcutaneous solution (Novolog USEASDIRECTD U-100 Insulin aspart) ipratropium 20 mcg-albuterol 100 1 puff inhalation TID 12/14/20 05/30/23 05/30/23 History mcg/actuation mist for inhalation (Combivent Respimat) multivitamin 1 tab PO DAILY 12/14/20 05/30/23 05/30/23 History atorvastatin 40 mg tablet 40 mg PO BEDTIME 06/13/21 05/30/23 05/29/23 History insulin degludec 100 unit/mL (3 70 unit subcut DAILY 10/20/22 05/30/23 05/30/23 History mL) subcutaneous pen (Tresiba FlexTouch U-100 insulin) oxycodone 5 mg tablet 5 mg PO QID PRN Severe Pain (Scale 01/04/23 05/30/23 Unknown History Score 7-10) budesonide-formoterol HFA 80 2 puff inhalation BID 01/31/23 05/30/23 05/30/23 History mcg-4.5 mcg/actuation aerosol inhaler (Symbicort) dronedarone 400 mg tablet (Multaq) 400 mg PO BID 01/31/23 05/30/23 05/30/23 History fluticasone propionate 50 1 spray intranasal DAILY PRN 01/31/23 05/30/23 Unknown History mcg/actuation nasal Allergy Symptoms spray,suspension vitamin B complex 1 tab PO DAILY 01/31/23 05/30/23 05/30/23 History losartan 25 mg tablet 25 mg PO DAILY 02/09/23 05/30/23 05/30/23 History cholecalciferol (vitamin D3) 125 125 mcg PO DAILY 05/30/23 05/30/23 05/30/23 History mcg (5,000 unit) tablet (Vitamin D3) magnesium 250 mg tablet 250 mg PO DAILY 05/30/23 05/30/23 05/30/23 History omega-3s 300 [id number]-[id number]-other 1 cap PO BID 05/30/23 05/30/23 05/30/23 History [id number] oil 1,000 mg capsule ([place]-3 Fish Oil) pregabalin 150 mg capsule (Lyrica) 150 mg PO QID 05/30/23 05/30/23 05/30/23 History zinc 220 mg PO DAILY 05/30/23 05/30/23 05/30/23 History Physical Exam Vital Signs and Narrative: Vital Signs: Last Vital Signs Temp 99.0 F 05/30/23 09:05 Pulse 70 05/30/23 12:13 Resp 17 05/30/23 12:13 BP 98/62 05/30/23 12:13 Pulse Ox 99 05/30/23 12:13 O2 Del Method Room Air 05/30/23 12:13 BMI result Body Mass Index 28.3 Constitutional - Awake and Alert, No apparent distress Eyes - PERRLA, EOMI Cardiovascular - S1S2, RRR, 3+ ble edema Respiratory - Normal lung expansion, Normal respiratory effort, No respiratory distress, bibasilar rales Gastrointestinal - NT / ND; +BS; No rebound or guarding Extremities - no calf tenderness bilaterally, no swelling Skin - Warm/Dry. Extensive RLE erythema from ankle, lower leg, and posterior thigh with thickened erythematous/brown skin discoloration lower leg with 2 shallow venous ulcerations with serous drainage Neurological - Alert & oriented x3 Psychological - Appropriate affect Results Labs 05/30/23 11:19 05/30/23 11:19 Labs: Laboratory Results - last 24 hr 05/30/23 11:19 MCV 95.2 MCH 31.8 MCHC 33.4 RDW 14.6 Plt Count 117 L MPV 9.6 Immature Gran % (Auto) 1.4 H Neut % (Auto) 76.6 H Lymph % (Auto) 11.0 L [place] % (Auto) 8.5 Eos % (Auto) 2.2 Baso % (Auto) 0.3 Lymph # (Auto) 1.0 L [place] # (Auto) 0.8 Eos # (Auto) 0.2 Baso # (Auto) 0.0 Abs Immat Gran (auto) 0.13 H Absolute Neuts (auto) 7.0 Absolute Nucleated RBC 0.000 Nucleated RBC % (auto) 0.0 ESR 36 H PT 19.2 H INR 1.6 H APTT 32.2 Anion Gap 12 Estim Creat Clear Calc 58.2 Estimated GFR > 60 Random Glucose 249 H Lactic Acid 1.2 Calcium 9.0 Total Bilirubin 0.8 AST 35 ALT 45 H Alkaline Phosphatase 91 C-Reactive Protein 4.02 H Total Protein 5.6 L Albumin 3.2 L Assessment and Plan (1) Cellulitis of leg, right: Status: Acute Plan 87-year-old male with history of prostate cancer s/p radiation therapy, urinary incontinence, HFpEF, paroxysmal atrial fibrillation anticoagulated with Eliquis, pacemaker in place, coronary artery disease, insulin-dependent type 2 diabetes, hyperlipidemia, COPD, chronic venous stasis dermatitis, and diabetic polyneuropathy admitted for management of worsening RLE cellulitis having failed outpt oral abx. #RLE cellulitis associated with type 2 diabetes -in uncontrolled diabetic having failed oral abx -IV vancomycin and cefepime (initiated 05/30) -Wound culture pending -No leukocytosis, SIRS criteria. No sepsis -Follow CBC, cultures #BLE edema -3+ ble edema, likely r/t chronic venous stasis and CHF -Check BNP and CXR given edema, roberson, orthopnea though these appear chronic -Give 1 dose IV lasix 20mg and reassess fluid status am #Paroxysmal atrial fibrillation -rate controlled -continue Eliquis for anticoagulation, metoprolol, and Multaq # insulin-dependent type 2 diabetes -uncontrolled with hemoglobin A1c 8.1% -POC glucose -Diabetic diet -Dose adjusted basal insulin -humalog on sliding scale # CAD -no anginal chest pain -continue home meds # hypertension -blood pressure reasonably controlled -continue home meds #HFpEF -as above -continue lasix # COPD -no acute exacerbation -continue maintenance inhalers, albuterol p.r.n. 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 Quality Stroke Does the patient have a stroke diagnosis?: No VTE Prior VTE?: No VTE Risk Level:: Medical - moderate - high VTE Device Contraindication: Treatment Not Indicated VTE Drug Contraindication: N/A - Med Ordered
--- NOTE | 2023-05-30 13:18 | PC.NURSE ---
pharmacy bedside confirming home medication list at this time.
--- NOTE | 2023-05-30 13:23 | PHA.PROG ---
Admission Date/Time: May 30, 2023 12:57 Indication:SKIN/SKIN STRUCTURE Weight in k kg Adjusted body weight in Kg: [place] body weight in Kg: Obesity Dosing Indication % IBW: Serum Creatinine - Last 168 Hours 05/30/23 11:19 Creatinine 0.95 Estimated CrCl and GFR - Last 168 Hours 05/30/23 11:19 Estim Creat Clear Calc 58.2 Estimated GFR > 60 Vancomycin Loading Dose: 2000 MG Current Vancomycin Dosing Regimen: 1250MG Q24H Vancomycin Monitoring using AUC goal of 400 - 600 range with trough as surrogate marker: AUC 452, TROUGH 13.2 Date and Time for next Vancomycin Level to be drawn: 06/01 @1000 Pharmacist Comments on Vancomycin Plan: Vancomycin dosing will take advantage of [employer] as a clinical decision support tool that uses Bayesian modeling to calculate individual patient's pharmacokinetic parameters and forecast the patient's drug concentration time course with the target goal AUC 24 range of 400 - 600 mg/L/hr.
[2023-05-30 13:26] LABS: Estimated Average Glucose 186 mg/dL; Hemoglobin A1c % 8.1 % (<6.0)
--- NOTE | 2023-05-30 13:34 | PC.NURSE ---
phlebotomy bedside w/ pt.
--- NOTE | 2023-05-30 13:35 | PC.NURSE ---
awaiting to administer 2nd abx at this time bev ganatibility - admitting provider aware.
--- NOTE | 2023-05-30 14:54 | PHA.MEDREC ---
Pharmacy Consult ? Medication Reconciliation Pharmacy has completed the medication reconciliation. Pt does not take metoprolol anymore.
--- NOTE | 2023-05-30 16:30 | PC.NURSE ---
report given to RN - will notify transport.
--- NOTE | 2023-05-30 17:31 | HO.SKINPHOTO ---
Location: Category: Stage: Length: Width: Depth: cm Location: Category: Stage: Length: Width: Depth: cm Location: Category: Stage: Length: Width: Depth: cm Location: Category: Stage: Length: Width: Depth: cm Location: Category: Stage: Length: Width: Depth: cm Location: bilat-buttocks Category: Stage:2-3 Length: Width: Depth: cm
[2023-05-31 02:52] VITALS: BP 111/57; PULSE 70; RESP 18; TEMP 36.6; O2SAT 99
[2023-05-31 07:53] VITALS: BP 117/70; PULSE 70; RESP 20; TEMP 36.3; O2SAT 99
--- NOTE | 2023-05-31 09:16 | MHC.CM.PN ---
CM met with Patient at bedside and addressed IMM with him, providing Patient with the original and placing a copy on the chart. Patient lives in a house with his /HCP/Mckenzie and he uses both a cane and a walker to assist with mobility. Patient receives MOWs and a RN weekly visit (patient cannot recall the name of the agency;CM awaits a return call from Mckenzie). Home/resume said services is the goal and CM has initiated and will follow for dc planning. PCP is Dr. Jewel Rebolledo.
--- NOTE | 2023-05-31 09:37 | HE.PHANOTE ---
@RE QUE CONTINUE CURRENT DOSE, NEXT LEVEL DUE 06/01 @1000
--- NOTE | 2023-05-31 10:27 | HO.PM.IMPN ---
Subjective Subjective Date of Service: 05/31/23 Interval History: leg cellulitis Review of Systems leg soarness seems improving no fever or nausea denies any sob Physical Exam Vital Signs: Vital Signs: Last Vital Signs Temp 97.4 F 05/31/23 07:53 Pulse 70 05/31/23 07:53 Resp 20 05/31/23 07:53 BP 117/70 05/31/23 07:53 Pulse Ox 99 05/31/23 07:53 O2 Del Method Room Air 05/31/23 07:53 BMI result Body Mass Index 28.3 Appearance: Alert.? not in distress.? cvs: rrr, [id number] . res: clear to auscultation ,no rhonchii or wheezing abd: no rebound or guarding ,nt, bs present. ext pulses present , no cyanosis right leg cellulitis -erythema and soarness seems somewhat improving neuro:nonfocal. Objective Data Active Medications Acetaminophen (Acetaminophen 325 Mg Tablet) 650 mg PO Q6H PRN PRN Reason: Pain, Mild (Pain Scale 1-3) Albuterol/Ipratropium (Albuterol/Iprat 2.5/0.5mg 3 Ml Ampul.Neb) 3 ml INHALE RTID [facility] Last Admin: 05/31/23 07:54 Dose: Not Given Documented By: JESUS Non-Admin Reason: Patient Refused Apixaban (Apixaban 5 Mg Tablet) 5 mg PO BID [facility] Last Admin: 05/31/23 08:45 Dose: 5 mg Documented By: MARISELA Atorvastatin Calcium (Atorvastatin Calcium 40 Mg Tablet) 40 mg PO BEDTIME [facility] Last Admin: 05/30/23 21:07 Dose: 40 mg Documented By: LEOBARDO Dextrose (Dextrose 50 % 25 Gm/50 Ml Syringe) 25 gm IVPUSH Q15M PRN; Protocol PRN Reason: per Hypoglycemia Standing Ord. Docusate Sodium (Docusate Sodium 100 Mg Capsule) 100 mg PO DAILY PRN PRN Reason: Constipation Dronedarone (Dronedarone Hcl 400 Mg Tablet) 400 mg PO BID [facility] Last Admin: 05/31/23 08:44 Dose: 400 mg Documented By: MARISELA Fluticasone Propionate (Fluticasone Propionate Nasal 16 Gm [place]) 1 spray NOSTRIL-B DAILY PRN PRN Reason: Allergy Symptoms Fluticasone/Vilanterol (Fluticasone/Vilanterol 100/25 Blst.W.Dev) 1 puff INHALE RDAILY [facility] Last Admin: 05/31/23 07:54 Dose: Not Given Documented By: JESUS Non-Admin Reason: Patient Refused Furosemide (Furosemide 20 Mg Tablet) 20 mg PO DAILY PRN; Protocol PRN Reason: Edema Glucose (Glucose Gel 15 Gm Gel..Gram.) 15 gm PO Q15M PRN; Protocol PRN Reason: per Hypoglycemia Standing Ord. Cefepime HCl 2 gm/ Sodium (Chloride) 50 mls @ 100 mls/hr IV Q12H [facility] Last Infusion: 05/31/23 01:04 Dose: Infused Documented By: LEOBARDO Vancomycin HCl 1,250 mg/ (Sodium Chloride) 250 mls @ 166.667 mls/hr IV Q24H [facility] Insulin Human Lispro (Insulin Lispro 100 Unit/Ml 3 Ml Vial) 0 unit SUBCUT QIDACHS [facility]; Protocol Last Admin: 05/31/23 08:15 Dose: Not Given Documented By: MARISELA Non-Admin Reason: No Insulin Coverage Isosorbide Mononitrate (Isosorbide Mononitrate 30 Mg Tab.Er.24h) 30 mg PO DAILY [facility]; Protocol Last Admin: 05/31/23 08:44 Dose: 30 mg Documented By: MARISELA Losartan Potassium (Losartan Potassium 25 Mg Tablet) 25 mg PO DAILY [facility]; Protocol Last Admin: 05/31/23 08:45 Dose: 25 mg Documented By: MARISELA Magnesium Oxide (Magnesium Oxide 400 Mg Tablet) 200 mg PO DAILY [facility] Last Admin: 05/31/23 08:44 Dose: 200 mg Documented By: MARISELA Multivitamins/Vitamin C (Multivitamin Tablet) 1 tab PO DAILY [facility] Last Admin: 05/31/23 08:45 Dose: 1 tab Documented By: MARISELA Ondansetron HCl (Ondansetron Hcl 4 Mg/2 Ml Vial) 4 mg IVPUSH Q8H PRN PRN Reason: Nausea and Vomiting Oxycodone HCl (Oxycodone Hcl Immed Release 5 Mg Tablet) 5 mg PO QID PRN PRN Reason: Severe Pain (Scale Score 7-10) Last Admin: 05/31/23 00:39 Dose: 5 mg Documented By: LEOBARDO Pharmacy Consult (Consult Rx Vancomycin Dosing) 1 each MISCELLANE DAILY PRN PRN Reason: Consult order Pharmacy Consult (Consult Rx Vancomycin Dosing) 1 each MISCELLANE DAILY PRN PRN Reason: Consult order Pregabalin (Pregabalin 150 Mg Capsule) 150 mg PO QID [facility] Last Admin: 05/31/23 08:44 Dose: 150 mg Documented By: MARISELA Sodium Chloride (0.9 % Sodium Chloride Flush 3 Ml Syringe) 3 ml IVFLUSH QSHIFT [facility] Last Admin: 05/31/23 08:47 Dose: 3 ml Documented By: MARISELA Vitamin D (Cholecalciferol (Vitamin D3) 25 Mcg Tablet) 125 mcg PO DAILY [facility] Last Admin: 05/31/23 08:45 Dose: 125 mcg Documented By: MARISELA Zinc Sulfate (Zinc Sulfate 220 Mg Capsule) 220 mg PO DAILY [facility] Last Admin: 05/31/23 08:43 Dose: 220 mg Documented By: MARISELA Labs 05/31/23 06:20 05/31/23 06:20 Labs: Laboratory Results - last 24 hr 05/30/23 05/30/23 05/30/23 11:19 13:37 17:12 MCV 95.2 MCH 31.8 MCHC 33.4 RDW 14.6 Plt Count 117 L MPV 9.6 Immature Gran % (Auto) 1.4 H Neut % (Auto) 76.6 H Lymph % (Auto) 11.0 L [place] % (Auto) 8.5 Eos % (Auto) 2.2 Baso % (Auto) 0.3 Lymph # (Auto) 1.0 L [place] # (Auto) 0.8 Eos # (Auto) 0.2 Baso # (Auto) 0.0 Abs Immat Gran (auto) 0.13 H Absolute Neuts (auto) 7.0 Absolute Nucleated RBC 0.000 Nucleated RBC % (auto) 0.0 ESR 36 H PT 19.2 H INR 1.6 H APTT 32.2 Anion Gap 12 Estim Creat Clear Calc 58.2 Estimated GFR > 60 POC Glucose 189 H Random Glucose 249 H Estimat Average Glucose 186 Hemoglobin A1c % 8.1 H Lactic Acid 1.2 Calcium 9.0 Total Bilirubin 0.8 AST 35 ALT 45 H Alkaline Phosphatase 91 C-Reactive Protein 4.02 H B-Natriuretic Peptide 226 H Total Protein 5.6 L Albumin 3.2 L 05/30/23 05/31/23 05/31/23 20:01 06:20 07:56 MCV 97.1 MCH 31.8 MCHC 32.7 RDW 14.7 Plt Count 128 L MPV 10.5 Immature Gran % (Auto) 2.4 H Neut % (Auto) 64.7 Lymph % (Auto) 20.6 [place] % (Auto) 7.9 Eos % (Auto) 3.9 Baso % (Auto) 0.5 Lymph # (Auto) 1.3 [place] # (Auto) 0.5 Eos # (Auto) 0.3 Baso # (Auto) 0.0 Abs Immat Gran (auto) 0.15 H Absolute Neuts (auto) 4.1 Absolute Nucleated RBC 0.000 Nucleated RBC % (auto) 0.0 ESR PT INR APTT Anion Gap 13 Estim Creat Clear Calc 57.6 Estimated GFR > 60 POC Glucose 250 H 97 Random Glucose 114 Estimat Average Glucose Hemoglobin A1c % Lactic Acid Calcium 9.0 Total Bilirubin AST ALT Alkaline Phosphatase C-Reactive Protein B-Natriuretic Peptide 179 H Total Protein Albumin Microbiology Microbiology Results: Microbiology 05/30/23 12:05 Gram Stain - Final Leg Right Routine Culture - Preliminary Gram negative cristopher Assessment and Plan (1) Cellulitis of leg, right: Status: Acute Plan 87-year-old male with history of prostate cancer s/p radiation therapy, urinary incontinence, HFpEF, paroxysmal atrial fibrillation anticoagulated with Eliquis, pacemaker in place, coronary artery disease, insulin-dependent type 2 diabetes, hyperlipidemia, COPD, chronic venous stasis dermatitis, and diabetic polyneuropathy admitted for management of worsening RLE cellulitis having failed outpt oral abx. RLE cellulitis associated with type 2 diabetes- failed oral abx No sepsis leg cellulitis somewhat improving no fever or leucoctosis ,Wound growing -gram neg cristopher,and blood culture pending IV vancomycin and cefepime (initiated 05/30) vanco elyse patient says chronic BLE edema, likely r/t chronic venous stasis less likely acute excerebation of Hfpef. cxr neg bnp improving edema improving plan: continue po lasix , leg elevation,compression stockin Paroxysmal atrial fibrillation-rate controlled continue Eliquis for anticoagulation, metoprolol, and Multaq insulin-dependent type 2 diabetes fs running 97-200 range hemoglobin A1c 8.1% POC glucose,Diabetic diet Dose adjusted basal insulin humalog on sliding scale CAD-no anginal chest pain continue home meds hypertension -blood pressure reasonably controlled continue home meds HFpEF -as above continue lasix COPD-no acute exacerbation continue maintenance inhalers, albuterol p.r.n. 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 Quality Stroke Does the patient have a stroke diagnosis?: No VTE Prior VTE?: No VTE Risk Level:: Medical - moderate - high VTE Device Contraindication: Treatment Not Indicated VTE Drug Contraindication: N/A - Med Ordered
[2023-05-31 15:25] VITALS: BP 98/58; PULSE 69; RESP 16; TEMP 36.5
[2023-05-31 16:26] VITALS: BP 103/58; PULSE 67
[2023-05-31 19:31] VITALS: BP 102/55; PULSE 88; RESP 18; TEMP 37.1; O2SAT 96
[2023-06-01 03:29] VITALS: BP 118/79; PULSE 89; RESP 18; TEMP 37; O2SAT 97
[2023-06-01 08:00] VITALS: BP 113/60; PULSE 67; RESP 16; TEMP 36.9; O2SAT 98
[2023-06-01 08:27] VITALS: PULSE 70; RESP 16; O2SAT 98
[2023-06-01 12:24] VITALS: BMI 28.3
--- NOTE | 2023-06-01 12:24 | HE.PHANOTE ---
Vanco Dosing Level 9.6 today. Will increase dose to vanco 1500 mg Q24H, new expected AUC 475 with a trough of 13.3. Next level 06/03 @ 1000. Jo sTeD
--- NOTE | 2023-06-01 12:27 | MHC.CLN ---
RE: CONSULT PT WITH INCREASED NUTRITION RISK R/T PRESSURE INJURY DIET RX: 1800DM-RECOMMEND 200DM DIET TO MEET NEEDS FOR WOUND HEALING RECOMMEND ADDING ENSURE MAX BID TO PROMOTE WOUND HEALING SUPP TO PROVIDE 300KCALS, 60G PROTEIN MONITOR PO INTAKE CLOSELY SEE ALSO FULL CLINICAL NUTRITION ASSESSMENT
--- NOTE | 2023-06-01 15:07 | HO.PM.IMPN ---
Subjective Subjective Date of Service: 06/01/23 Interval History: leg cellulitis Review of Systems leg soarness/erythema seems improving no fever or nausea denies any sob Physical Exam Vital Signs: Vital Signs: Last Vital Signs Temp 98.5 F 06/01/23 08:00 Pulse 70 06/01/23 08:27 Resp 16 06/01/23 08:27 BP 113/60 06/01/23 08:00 Pulse Ox 98 06/01/23 08:00 O2 Del Method Room Air 06/01/23 08:00 BMI result Body Mass Index 28.3 Appearance: Alert.? not in distress.? cvs: rrr, [id number] . res: clear to auscultation ,no rhonchii or wheezing abd: no rebound or guarding ,nt, bs present. ext pulses present , no cyanosis right leg cellulitis -has big area erythema almost whole legon admission-erythema and soarness seems somewhat improving slowly neuro:nonfocal. Objective Data Active Medications Acetaminophen (Acetaminophen 325 Mg Tablet) 650 mg PO Q6H PRN PRN Reason: Pain, Mild (Pain Scale 1-3) Albuterol/Ipratropium (Albuterol/Iprat 2.5/0.5mg 3 Ml Ampul.Neb) 3 ml INHALE RTID [facility] Last Admin: 06/01/23 13:25 Dose: Not Given Documented By: KATHERIN Non-Admin Reason: Patient Refused Apixaban (Apixaban 5 Mg Tablet) 5 mg PO BID [facility] Last Admin: 06/01/23 08:39 Dose: 5 mg Documented By: ZAHRAA Atorvastatin Calcium (Atorvastatin Calcium 40 Mg Tablet) 40 mg PO BEDTIME [facility] Last Admin: 05/31/23 21:15 Dose: 40 mg Documented By: ISABEL Dextrose (Dextrose 50 % 25 Gm/50 Ml Syringe) 25 gm IVPUSH Q15M PRN; Protocol PRN Reason: per Hypoglycemia Standing Ord. Docusate Sodium (Docusate Sodium 100 Mg Capsule) 100 mg PO DAILY PRN PRN Reason: Constipation Dronedarone (Dronedarone Hcl 400 Mg Tablet) 400 mg PO BID [facility] Last Admin: 06/01/23 08:39 Dose: 400 mg Documented By: ZAHRAA Fluticasone Propionate (Fluticasone Propionate Nasal 16 Gm [place]) 1 spray NOSTRIL-B DAILY PRN PRN Reason: Allergy Symptoms Fluticasone/Vilanterol (Fluticasone/Vilanterol 100/25 Blst.W.Dev) 1 puff INHALE RDAILY [facility] Last Admin: 06/01/23 08:26 Dose: 1 puff Documented By: KATHERIN Furosemide (Furosemide 20 Mg Tablet) 20 mg PO DAILY [facility]; Protocol Last Admin: 06/01/23 08:39 Dose: 20 mg Documented By: ZAHRAA Glucose (Glucose Gel 15 Gm Gel..Gram.) 15 gm PO Q15M PRN; Protocol PRN Reason: per Hypoglycemia Standing Ord. Cefepime HCl 2 gm/ Sodium (Chloride) 50 mls @ 100 mls/hr IV Q12H [facility] Last Infusion: 06/01/23 14:37 Dose: 100 mls/hr Documented By: ZAHRAA Vancomycin HCl 1,500 mg/ (Sodium Chloride) 500 mls @ 333.333 mls/hr IV Q24H [facility] Last Infusion: 06/01/23 13:53 Dose: Infused Documented By: ZAHRAA Insulin Glargine (Insulin Glargine,Hum.Rec.Anlog 100 Unit/Ml 10 Ml Vial) 45 unit SUBCUT DAILY [facility] Last Admin: 06/01/23 12:13 Dose: 45 unit Documented By: ZAHRAA Insulin Human Lispro (Insulin Lispro 100 Unit/Ml 3 Ml Vial) 0 unit SUBCUT QIDACHS [facility]; Protocol Last Admin: 06/01/23 12:13 Dose: 14 unit Documented By: ZAHRAA Isosorbide Mononitrate (Isosorbide Mononitrate 30 Mg Tab.Er.24h) 30 mg PO DAILY [facility]; Protocol Last Admin: 06/01/23 08:39 Dose: 30 mg Documented By: ZAHRAA Losartan Potassium (Losartan Potassium 25 Mg Tablet) 25 mg PO DAILY [facility]; Protocol Last Admin: 06/01/23 08:39 Dose: 25 mg Documented By: ZAHRAA Magnesium Oxide (Magnesium Oxide 400 Mg Tablet) 200 mg PO DAILY [facility] Last Admin: 06/01/23 08:39 Dose: 200 mg Documented By: ZAHRAA Multivitamins/Vitamin C (Multivitamin Tablet) 1 tab PO DAILY [facility] Last Admin: 06/01/23 08:39 Dose: 1 tab Documented By: ZAHRAA Ondansetron HCl (Ondansetron Hcl 4 Mg/2 Ml Vial) 4 mg IVPUSH Q8H PRN PRN Reason: Nausea and Vomiting Oxycodone HCl (Oxycodone Hcl Immed Release 5 Mg Tablet) 5 mg PO QID PRN PRN Reason: Severe Pain (Scale Score 7-10) Last Admin: 05/31/23 23:50 Dose: 5 mg Documented By: ISABEL Pharmacy Consult (Consult Rx Vancomycin Dosing) 1 each MISCELLANE DAILY PRN PRN Reason: Consult order Pharmacy Consult (Consult Rx Vancomycin Dosing) 1 each MISCELLANE DAILY PRN PRN Reason: Consult order Pregabalin (Pregabalin 150 Mg Capsule) 150 mg PO QID [facility] Last Admin: 06/01/23 12:29 Dose: 150 mg Documented By: ZAHRAA Sodium Chloride (0.9 % Sodium Chloride Flush 3 Ml Syringe) [facility] Last Admin: 06/01/23 08:43 Dose: 3 ml Documented By: ZAHRAA Vitamin D (Cholecalciferol (Vitamin D3) 25 Mcg Tablet) 125 mcg PO DAILY [facility] Last Admin: 06/01/23 08:39 Dose: 125 mcg Documented By: ZAHRAA Zinc Sulfate (Zinc Sulfate 220 Mg Capsule) 220 mg PO DAILY [facility] Last Admin: 06/01/23 08:39 Dose: 220 mg Documented By: ZAHRAA Labs 05/31/23 06:20 06/01/23 06:45 Labs: Laboratory Results - last 24 hr 05/31/23 05/31/23 06/01/23 17:07 20:12 06:45 Estim Creat Clear Calc 58.2 Estimated GFR > 60 POC Glucose 184 H 311 H Random Vancomycin 06/01/23 06/01/23 06/01/23 07:07 10:40 11:15 Estim Creat Clear Calc Estimated GFR POC Glucose 145 H 494 H* Random Vancomycin 9.6 L Microbiology Microbiology Results: Microbiology 05/30/23 11:19 Blood Culture - Preliminary Blood - Venous No growth after 48 hours. 05/30/23 11:19 Blood Culture - Preliminary Blood - Venous No growth after 48 hours. 05/30/23 12:05 Gram Stain - Final Leg Right Routine Culture - Final Pseudomonas aeruginosa Assessment and Plan (1) Cellulitis of leg, right: Status: Acute Plan 87-year-old male with history of prostate cancer s/p radiation therapy, urinary incontinence, HFpEF, paroxysmal atrial fibrillation anticoagulated with Eliquis, pacemaker in place, coronary artery disease, insulin-dependent type 2 diabetes, hyperlipidemia, COPD, chronic venous stasis dermatitis, and diabetic polyneuropathy admitted for management of worsening RLE cellulitis having failed outpt oral abx. RLE cellulitis associated with type 2 diabetes- failed oral abx No sepsis leg cellulitis somewhat improving no fever or leucoctosis ,Wound growing -gram neg cristopher,and blood culture pending IV vancomycin and cefepime (initiated 05/30) vanco trough patient says chronic BLE edema, likely r/t chronic venous stasis less likely acute excerebation of Hfpef. cxr neg bnp improving edema improving plan: continue po lasix , leg elevation,compression stockin Paroxysmal atrial fibrillation-rate controlled continue Eliquis for anticoagulation, metoprolol, and Multaq insulin-dependent type 2 diabetes fs running flactuating but running higher hemoglobin A1c 8.1% POC glucose,Diabetic diet Dose adjusted basal insulin humalog on sliding scale,adjusted to lantus . CAD-no anginal chest pain continue home meds hypertension -blood pressure reasonably controlled continue home meds HFpEF -as above continue lasix COPD-no acute exacerbation continue maintenance inhalers, albuterol p.r.n. 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 Time Spent With Patient Time: Total time managing care of this patient today ____ minutes. Quality Stroke Does the patient have a stroke diagnosis?: No VTE Prior VTE?: No VTE Risk Level:: Medical - moderate - high VTE Device Contraindication: Treatment Not Indicated VTE Drug Contraindication: N/A - Med Ordered
[2023-06-01 16:00] VITALS: BP 93/56; PULSE 69; RESP 16; TEMP 36.6; O2SAT 97
[2023-06-01 20:00] VITALS: BP 111/63; PULSE 70; RESP 18; TEMP 36.2; O2SAT 95
[2023-06-02 03:10] VITALS: BP 110/62; PULSE 70; RESP 17; TEMP 36.6; O2SAT 95
[2023-06-02 07:40] VITALS: BP 114/63; PULSE 69; RESP 18; TEMP 36.3; O2SAT 98
--- NOTE | 2023-06-02 07:41 | HE.PHANOTE ---
RE: VANCO Patients scr 0.72 from 0.95. will increase dose from 1500 mg Q24H to 1000 mg Q12H. AUC 511 predicted
--- NOTE | 2023-06-02 10:30 | MHC.CM.PN ---
Patient active with [facility]. A referral has been sent via [facility]. Per MD rounds, discharge is anticipated tomorrow. DP Home with resumption of [facility]. Patients will provide transport home.
--- NOTE | 2023-06-02 13:57 | HO.PM.IMPN ---
Subjective Subjective Date of Service: 06/02/23 Interval History: offers no acute complaints feels right leg redness and swelling is improving, concern about fluctuating blood sugars, also has chronic urinary frequency, denies urinary burning or urgency, no fevers, no chills tolerating diet with no nausea no vomiting no abdominal pain lives at home with , no acute events overnight. Review of Systems All other system reviewed and negative. Physical Exam Vital Signs: Vital Signs: Last Vital Signs Temp 97.3 F 06/02/23 07:40 Pulse 69 06/02/23 07:40 Resp 18 06/02/23 07:40 BP 114/63 06/02/23 07:40 Pulse Ox 98 06/02/23 07:40 O2 Del Method Room Air 06/02/23 07:40 BMI result Body Mass Index 28.3 Const: Other: General awake alert x3,in no acute distress. Neck no JVD. CVS regular rate rhythm, Respiratory lungs clear to auscultation, no respiratory distress, no wheeze, no rhonchi. Gastrointestinal abdomen soft, non tender, bowel sounds audible Extremities bilateral lower extremity edema, right leg redness improving, small healed laceration mid julien, small open wound medial leg no drainage Neuro non focal ,speech clear. psych appropriate affect Objective Data Active Medications Acetaminophen (Acetaminophen 325 Mg Tablet) 650 mg PO Q6H PRN PRN Reason: Pain, Mild (Pain Scale 1-3) Albuterol/Ipratropium (Albuterol/Iprat 2.5/0.5mg 3 Ml Ampul.Neb) 3 ml INHALE RTID [facility] Last Admin: 06/02/23 08:13 Dose: Not Given Documented By: RITESH Non-Admin Reason: pt refused Apixaban (Apixaban 5 Mg Tablet) 5 mg PO BID [facility] Last Admin: 06/02/23 08:24 Dose: 5 mg Documented By: GRAZOLGA Atorvastatin Calcium (Atorvastatin Calcium 40 Mg Tablet) 40 mg PO BEDTIME [facility] Last Admin: 06/01/23 21:15 Dose: 40 mg Documented By: JIMMY Dextrose (Dextrose 50 % 25 Gm/50 Ml Syringe) 25 gm IVPUSH Q15M PRN; Protocol PRN Reason: per Hypoglycemia Standing Ord. Docusate Sodium (Docusate Sodium 100 Mg Capsule) 100 mg PO DAILY PRN PRN Reason: Constipation Dronedarone (Dronedarone Hcl 400 Mg Tablet) 400 mg PO BID [facility] Last Admin: 06/02/23 08:33 Dose: 400 mg Documented By: LALITA Fluticasone Propionate (Fluticasone Propionate Nasal 16 Gm [place]) 1 spray NOSTRIL-B DAILY PRN PRN Reason: Allergy Symptoms Fluticasone/Vilanterol (Fluticasone/Vilanterol 100/25 Blst.W.Dev) 1 puff INHALE RDAILY [facility] Last Admin: 06/02/23 08:13 Dose: Not Given Documented By: RITESH Non-Admin Reason: pt refused Furosemide (Furosemide 20 Mg Tablet) 20 mg PO DAILY [facility]; Protocol Last Admin: 06/02/23 08:26 Dose: 20 mg Documented By: LALITA Glucose (Glucose Gel 15 Gm Gel..Gram.) 15 gm PO Q15M PRN; Protocol PRN Reason: per Hypoglycemia Standing Ord. Cefepime HCl 2 gm/ Sodium (Chloride) 50 mls @ 100 mls/hr IV Q12H [facility] Last Admin: 06/02/23 13:23 Dose: 100 mls/hr Documented By: LALITA Vancomycin HCl 1,000 mg/ (Sodium Chloride) 270 mls @ 270 mls/hr IV Q12H [facility] Last Infusion: 06/02/23 13:08 Dose: Infused Documented By: LALITA Insulin Glargine (Insulin Glargine,Hum.Rec.Anlog 100 Unit/Ml 10 Ml Vial) 45 unit SUBCUT DAILY [facility] Last Admin: 06/02/23 08:34 Dose: 45 unit Documented By: LALITA Insulin Human Lispro (Insulin Lispro 100 Unit/Ml 3 Ml Vial) 0 unit SUBCUT QIDACHS [facility]; Protocol Last Admin: 06/02/23 11:56 Dose: 10 unit Documented By: LALITA Isosorbide Mononitrate (Isosorbide Mononitrate 30 Mg Tab.Er.24h) 30 mg PO DAILY [facility]; Protocol Last Admin: 06/02/23 08:26 Dose: 30 mg Documented By: LALITA Losartan Potassium (Losartan Potassium 25 Mg Tablet) 25 mg PO DAILY [facility]; Protocol Last Admin: 06/02/23 08:26 Dose: 25 mg Documented By: LALITA Magnesium Oxide (Magnesium Oxide 400 Mg Tablet) 200 mg PO DAILY [facility] Last Admin: 06/02/23 08:24 Dose: 200 mg Documented By: LALITA Multivitamins/Vitamin C (Multivitamin Tablet) 1 tab PO DAILY [facility] Last Admin: 06/02/23 08:24 Dose: 1 tab Documented By: LALITA Ondansetron HCl (Ondansetron Hcl 4 Mg/2 Ml Vial) 4 mg IVPUSH Q8H PRN PRN Reason: Nausea and Vomiting Oxycodone HCl (Oxycodone Hcl Immed Release 5 Mg Tablet) 5 mg PO QID PRN PRN Reason: Severe Pain (Scale Score 7-10) Last Admin: 05/31/23 23:50 Dose: 5 mg Documented By: ISABEL Pharmacy Consult (Consult Rx Vancomycin Dosing) 1 each MISCELLANE DAILY PRN PRN Reason: Consult order Pharmacy Consult (Consult Rx Vancomycin Dosing) 1 each MISCELLANE DAILY PRN PRN Reason: Consult order Pregabalin (Pregabalin 150 Mg Capsule) 150 mg PO QID [facility] Last Admin: 06/02/23 13:24 Dose: 150 mg Documented By: LALITA Sodium Chloride (0.9 % Sodium Chloride Flush 3 Ml Syringe) 3 ml IVFLUSH QSHIFT [facility] Last Admin: 06/02/23 08:19 Dose: 3 ml Documented By: LALITA Vitamin D (Cholecalciferol (Vitamin D3) 25 Mcg Tablet) 125 mcg PO DAILY [facility] Last Admin: 06/02/23 08:27 Dose: 125 mcg Documented By: LALITA Zinc Sulfate (Zinc Sulfate 220 Mg Capsule) 220 mg PO DAILY [facility] Last Admin: 06/02/23 08:24 Dose: 220 mg Documented By: LALITA Labs 05/31/23 06:20 06/02/23 06:03 Labs: Laboratory Results - last 24 hr 06/01/23 06/01/23 06/02/23 16:05 20:56 06:03 Hold Purple Top SEE NOTE Estim Creat Clear Calc 76.8 Estimated GFR > 60 POC Glucose 296 H 202 H 06/02/23 06/02/23 07:32 11:30 Hold Purple Top Estim Creat Clear Calc Estimated GFR POC Glucose 129 H 303 H Microbiology Microbiology Results: Microbiology 05/30/23 11:19 Blood Culture - Preliminary Blood - Venous No growth after 48 hours. 05/30/23 11:19 Blood Culture - Preliminary Blood - Venous No growth after 48 hours. Assessment and Plan (1) Cellulitis of leg, right: Status: Acute Plan 87-year-old male with history of prostate cancer s/p radiation therapy, urinary incontinence, HFpEF, paroxysmal atrial fibrillation anticoagulated with Eliquis, pacemaker in place, coronary artery disease, insulin-dependent type 2 diabetes, hyperlipidemia, COPD, chronic venous stasis dermatitis, and diabetic polyneuropathy admitted for management of worsening RLE cellulitis having failed outpt oral abx. RLE cellulitis associated with type 2 diabetes- failed oral abx redness improving, No sepsis no fever or leucoctosis ,Wound c/s grew pseudomonas and blood culture negative will DC IV vancomycin continue iv cefepime (initiated 05/30) transition to po upon dc seen by Physical therapy they recommend home with PT due to gross deconditioning and impaired bed mobility. chronic BLE edema, likely r/t chronic venous stasis no acute excerebation of Hfpef, albumin 3.2, normal renal function cxr neg,stable BNP edema improving continue po lasix , leg elevation,compression stocking,high protein diet Paroxysmal atrial fibrillation-rate controlled continue Eliquis , metoprolol, and Multaq Insulin-dependent type 2 diabetes elevated blood sugars, hemoglobin A1c 8.1% continue,Diabetic diet, insulin sliding scale and Lantus at home on Tresiba CAD-no chest pain, continue home meds hypertension well controlled continue losartan,and Imdur HFpEF -as above continue lasix COPD-no acute exacerbation continue maintenance inhalers, albuterol p.r.n. 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 Time Spent With Patient Time: Total time managing care of this patient today ____ minutes. Quality Stroke Does the patient have a stroke diagnosis?: No VTE Prior VTE?: No VTE Risk Level:: Medical - moderate - high VTE Device Contraindication: Treatment Not Indicated VTE Drug Contraindication: N/A - Med Ordered
[2023-06-02 16:00] VITALS: BP 109/57; PULSE 68; RESP 16; TEMP 36.2; O2SAT 97
[2023-06-02 19:39] VITALS: BP 117/56; PULSE 70; RESP 16; TEMP 36.4; O2SAT 98
--- NOTE | 2023-06-02 21:09 | HO.SKINPHOTO ---
Location:right heel Category: Stage: Length: Width: Depth: cm Location:left heel Category: Stage: Length: Width: Depth: cm Location: Category: Stage: Length: Width: Depth: cm Location: Category: Stage: Length: Width: Depth: cm Location: Category: Stage: Length: Width: Depth: cm Location: Category: Stage: Length: Width: Depth: cm
[2023-06-03 04:00] VITALS: BP 101/62; PULSE 69; RESP 16; TEMP 36.3; O2SAT 97
[2023-06-03 06:45] VITALS: BP 120/56; PULSE 66; RESP 17; TEMP 35.5; O2SAT 98
[2023-06-03 06:49] LABS: Creatinine Clr Calc Pharmacy 74.7; Estimated Glomerular Filt Rate > 60
--- NOTE | 2023-06-03 11:00 | W.MHC.F2F ---
Service Date Service Date: 06/03/23 Encounter Date of encounter: 06/03/23 Reasons for Services Signs and symptoms assessed: right lower extremity swelling redness Homebound: Leaving the home is medically contraindicated at this time without the asist of a device and/or another person due th the listed conditions above and below. Reason homebound: weakness related to hospital stay Homebound supporting statement: deconditioning and impaired bed mobility Certification: Based on the above findings, I certify that this patient is confined to the home and needs intermittent fdc care, physical therapy and/or speech therapy, or continues to need occupational therapy. The patient is under my care, and I have initiated the establishment of the plan of care. The patient will be followed by a physician who will periodically review the plan of care. Time Spent With Patient Time: Total time managing care of this patient today ____ minutes.
--- NOTE | 2023-06-03 11:02 | PM.DS ---
DS: Providers Provider Date of Service: 06/03/23 Date of admission: 05/30/23 12:57 Primary care physician: Jewel Rebolledo MD DS: Diagnosis Discharge Diagnosis (1) Cellulitis of leg, right: Status: Acute DS: Summary Hospital Course Hospital Course: Date of Service: 05/30/23 Attending physician on admission: Naz Puckett Chief Complaint: RLE infection 87-year-old male with history of prostate cancer s/p radiation therapy, urinary incontinence, HFpEF, paroxysmal atrial fibrillation anticoagulated with Eliquis, pacemaker in place, coronary artery disease, insulin-dependent type 2 diabetes, hyperlipidemia, COPD, chronic venous stasis dermatitis, and diabetic polyneuropathy presented to the ED earlier today for evaluation of worsening redness in the right lower extremity that has been ongoing for a total of 2 weeks. He was seen in the ED 1 week ago and started on doxycycline and Keflex for right lower extremity cellulitis which he has been taking as prescribed. Unfortunately, he has chronic bilateral lower extremity edema with weeping shallow ulcerations of the right lower extremity and the erythema has been worsening. There is mild discomfort with palpation. He denies any fevers or chills. He does endorse long standing orthopnea and ROBERSON. No sob at rest, chest pain, palpitations, or lightheadedness. He has VNA in the home. On arrival, VSS normal, patiently slightly hypertensive. No leukocytosis (WBC improved from 13 --> 9). Renal function baseline, electrolytes normal. Glucose 249. CRP 4.02, ESR 36. Wound culture pending. CXR pending. In the ED, has received IV vanco and rocephin. hospital course: 87-year-old male with history of prostate cancer s/p radiation therapy, urinary incontinence, HFpEF, paroxysmal atrial fibrillation anticoagulated with Eliquis, pacemaker in place, coronary artery disease, insulin-dependent type 2 diabetes, hyperlipidemia, COPD, chronic venous stasis dermatitis, and diabetic polyneuropathy admitted for management of worsening RLE cellulitis having failed outpt oral abx. RLE cellulitis associated with type 2 diabetes, Patient treated with Keflex and doxycycline for 1 week as outpatient with no improvement in redness therefore came to ER patient placed on IV vancomycin and IV cefepime blood cultures x2 came back negative, wound culture sensitivity from right leg grew Pseudomonas, therefore IV vancomycin discontinued patient treated with IV cefepime for 4 days now being discharged home on Levaquin to finish a total 7 day course of antibiotic, recommend to keep leg elevated and continue daily Lasix 20 mg and take high-protein diet. Patient evaluated by Physical therapy and they recommend home PT due to gross deconditioning and impaired bed mobility. chronic BLE edema, likely r/t chronic venous stasis , there was no evidence of acute CHF chest x-ray showed no edema, BNP was stable recommend to continue by mouth Lasix use high-protein diet leg elevation and use compression stocking Paroxysmal atrial fibrillation-rate controlled continue Eliquis , metoprolol, and Multaq Insulin-dependent type 2 diabetes, hemoglobin A1c 8.1% recommend to continue diabetic diet and home medications. hypertension well controlled continue losartan,and Imdur COPD-no acute exacerbation continue maintenance inhalers, albuterol p.r.n. Diabetic poly neuropathy-continue lyrica Time Spent with Patient Time attestation: Total time managing care of this patient today ____ minutes. Discharge coordination time: Greater than 30 minutes Quality: Safe Use of Opioids Does Pt have an Active Cancer Diagnosis on the Problem List?: No Quality: Stroke Does the patient have a stroke diagnosis?: No Physical Exam Vital Signs: Vital Signs: Last Vital Signs Temp 96 F L 06/03/23 06:45 Pulse 66 06/03/23 06:45 Resp 17 06/03/23 06:45 BP 120/56 L 06/03/23 06:45 Pulse Ox 98 06/03/23 06:45 O2 Del Method Room Air 06/03/23 06:45 BMI result Body Mass Index 28.3 Const: Other: General awake alert x3,in no acute distress. Neck no JVD. CVS regular rate rhythm, Respiratory lungs clear to auscultation, no respiratory distress, no wheeze, no rhonchi. Gastrointestinal abdomen soft, non tender, bowel sounds audible Extremities bilateral lower extremity edema, right leg redness improving, small healed laceration mid julien, small open wound well healed medial leg, no drainage. Neuro non focal ,speech clear. psych appropriate affect DS: Data Data Completed and Pending Completed studies during hospitalization [Text1]: Procedures Insertion of Infusion Device into Superior Vena Cava, Percutaneous Approach (12/29/20) Insertion of Pacemaker Lead into Right Atrium, Percutaneous Approach (12/29/20) Insertion of Pacemaker Lead into Right Ventricle, Percutaneous Approach (12/29/20) Insertion of Pacemaker, Dual Chamber into Chest Subcutaneous Tissue and Fascia, Open Approach (12/29/20) Irrigation of Genitourinary Tract using Irrigating Substance, Via Natural or Artificial Opening (01/04/23) Labs on day of discharge: Laboratory Results - last 24 hr 06/02/23 06/02/23 06/02/23 11:30 16:10 20:46 Hold Purple Top Creatinine Estim Creat Clear Calc Estimated GFR POC Glucose 303 H 382 H* 308 H Random Vancomycin 06/03/23 06/03/23 06/03/23 06:22 07:03 07:04 Hold Purple Top SEE NOTE Creatinine 0.74 Estim Creat Clear Calc 74.7 Estimated GFR > 60 POC Glucose 52 L* 55 L* Random Vancomycin 06/03/23 06/03/23 09:35 09:54 Hold Purple Top Creatinine Estim Creat Clear Calc Estimated GFR POC Glucose 337 H Random Vancomycin 11.5 L Preliminary micro results at discharge 05/30/23 11:19 Blood Culture - Preliminary Blood - Venous No growth after 48 hours. 05/30/23 11:19 Blood Culture - Preliminary Blood - Venous No growth after 48 hours. Discharge Plan Discharge Anticipated Discharge Date/Time: 06/03/23 10:44 Patient Disposition: Home Health Service Discharge Diagnosis: Right lower extremity cellulitis Referrals: [facility] [Outside] - 1 Week Jewel Rebolledo MD [Primary Care Provider] - 1 Week Discharge Medications: New levofloxacin 500 mg tablet 500 mg PO DAILY 5 Days Qty: 5 0RF Continued isosorbide mononitrate 30 mg tablet extended release 24 hr 30 mg PO DAILY Qty: 90 3RF Combivent Respimat 20-100 mcg/actuation mist 1 puff inhalation TID multivitamin Tablet 1 tab PO DAILY insulin aspart U-100 [Novolog U-100 Insulin aspart] 100 unit/mL Solution 1 sliding scale dose SUBCUT USEASDIRECTD insulin degludec [Tresiba FlexTouch U-100] 100 unit/mL (3 mL) insulin pen 70 unit subcut DAILY oxycodone 5 mg tablet 5 mg PO QID PRN (Reason: Severe Pain (Scale Score 7-10)) [place]-3 Fish Oil 300-1,000 mg Capsule 1 cap PO BID pregabalin [Lyrica] 150 mg capsule 150 mg PO QID magnesium 250 mg Tablet 250 mg PO DAILY cholecalciferol (vitamin D3) [Vitamin D3] 125 mcg (5,000 unit) Tablet 125 mcg PO DAILY zinc 220 mg PO DAILY vitamin B complex Tablet 1 tab PO DAILY fluticasone propionate 50 mcg/actuation spray,suspension 1 spray INTRANASAL DAILY PRN (Reason: Allergy Symptoms) budesonide-formoterol [Symbicort] 80-4.5 mcg/actuation HFA aerosol inhaler 2 puff inhalation BID Multaq 400 mg tablet 400 mg PO BID atorvastatin 40 mg tablet 40 mg PO BEDTIME losartan 25 mg tablet 25 mg PO DAILY Eliquis 5 mg tablet 5 mg PO BID Qty: 60 0RF Changed furosemide 20 mg tablet 20 mg PO DAILY Qty: 90 1RF Discontinued cephalexin 500 mg capsule 500 mg PO BID Qty: 19 0RF doxycycline hyclate 100 mg capsule 100 mg PO BID Qty: 19 0RF Discharge Orders: Discharge Order (Routine); Ordered 06/03/23 Ordered By: Wilton Mccabe Diet: Diabetic diet Activity on Discharge: As tolerated Stand Alone Forms: Patient Portal Discharge page Care Plan Goals: Take antibiotic as prescribed Health Concerns: chronic leg edema, keep leg elevated take high-protein diet follow diabetic diet continue all home medications Plan of Treatment: outpatient follow-up with primary care physician call for appointment. Assessment: as above
--- NOTE | 2023-06-03 11:22 | MHC.CM.PN ---
IMM 06/03/23 Patient is discharged to home with resumption of [facility]. All discharge info has been sent to the agency. Patient has arranged for his to provide transport home.
== END 2023-06-03 14:43 | disposition home health service (06) | DRG 637 ==
LOC: HO.ED 11:40 → HO.EDOVER 13:04 → HO.IMC 15:07 → HO.S3 06-01 18:36
PROVIDERS: Admitting Provider Physician Assistant; Emergency Provider Emergency Medicine Emergency Medical Services; PCP Internal Medicine; Visit Provider Hospitalist
DX: E11.628 Type 2 diabetes mellitus with other skin complications (principal); I50.33 Acute on chronic diastolic (congestive) heart failure; L03.115 Cellulitis of right lower limb; I87.333 Chronic venous hypertension (idiopathic) with ulcer and inflammation of bilateral lower extremity; L97.929 Non-pressure chronic ulcer of unspecified part of left lower leg with unspecified severity; L97.919 Non-pressure chronic ulcer of unspecified part of right lower leg with unspecified severity; I25.10 Atherosclerotic heart disease of native coronary artery without angina pectoris; I11.0 Hypertensive heart disease with heart failure; I48.0 Paroxysmal atrial fibrillation; E78.5 Hyperlipidemia, unspecified; E11.42 Type 2 diabetes mellitus with diabetic polyneuropathy; Z85.46 Personal history of malignant neoplasm of prostate; Z95.0 Presence of cardiac pacemaker; Z87.891 Personal history of nicotine dependence; Z79.4 Long term (current) use of insulin; Z79.01 Long term (current) use of anticoagulants; Z79.51 Long term (current) use of inhaled steroids; Z79.899 Other long term (current) drug therapy
CPT/HCPCS: 36415; 71045; 80048; 80053; 80202; 81003; 82565; 82947; 83036; 83605; 83880; 85025; 85610; 85652; 85730; 86140; 87040; 87070; 87077; 87186; 87205; 94640; 97116; 97162; 97530; 99285; J0692; J0696; J1940; J3370; J3371

== ENCOUNTER → 2023-05-30 12:57 | Outpatient (BNV) | payer MEDICARE, SELFPAY | PROVIDERS: Admitting Provider Physician Assistant; Emergency Provider Emergency Medicine Emergency Medical Services; PCP Internal Medicine; Visit Provider Physician Assistant | DX: L03.115 Cellulitis of right lower limb (principal) | CPT/HCPCS: 99223; 99232; 99233; 99239; G0180 ==

== ENCOUNTER 2023-06-24 14:13 | Outpatient (REF) | payer MEDICARE, SELFPAY ==
[2023-06-24 16:12] LABS: Appearance Urine Cloudy; Color Urine Dark Yellow; Glucose Urine UA Negative (Negative); Leukocyte Esterase Urine Large (3+) (Negative); Nitrite Urine Negative (Negative); PH 5.5 (5.0-9.0); Specific Gravity - Urine 1.015 (1.005-1.025); UMIC TRIGGER UACC YES; Urine Blood Moderate (2+) (Negative); Urine Ketones Negative (Negative); Urine Protein Negative (Neg-Trace)
[2023-06-24 16:21] LABS: Bacteria Urine Trace (None Seen); Hyaline Casts Urine 0-2 /LPF (0-2); RBC Urine >20 /HPF (0-2); UACC Culture Trigger YES; WBC Urine >50 /HPF (0-5)
== END 2023-06-24 14:14 | disposition home or self-care (01) ==
LOC: HO.HVNA 14:13
PROVIDERS: PCP Internal Medicine; Visit Provider Internal Medicine
DX: R30.0 Dysuria (principal); R53.83 Other fatigue
CPT/HCPCS: 81001; 87086; 87088; 87147; 87186

== ENCOUNTER 2023-06-26 11:07 | Outpatient (REF) | payer MEDICARE, SELFPAY ==
[2023-06-26 11:33] LABS: MANUAL DIFF FLAG NO
[2023-06-26 11:41] LABS: Basophils Percent Auto 0.3 % (0-2); Eosinophils Absolute Auto 0.1 X10*3/uL (0.0-0.4); Eosinophils Percent Auto 1.1 % (0-4); Hematocrit 32.4 % (42.0-52.0); Hemoglobin 10.3 g/dl (14.0-18.0); Imm Gran Abs Auto 0.08 X10*3/uL (0.00-0.03); Imm Gran Pct Auto 1.2 % (0.0-0.4); Lymphocytes Absolute Auto 1.1 X10*3/uL (1.2-4.9); Lymphocytes Percent Auto 16.8 % (20-40); Mean Corpuscular HGB Conc 31.8 g/dl (31.0-36.0); Mean Corpuscular Hemoglobin 30.7 pg (27.0-33.0); Mean Corpuscular Volume 96.7 fL (80.0-98.0); Mean Platelet Volume 9.9 fL (9.4-12.4); Monocytes Absolute Auto 0.6 X10*3/uL (0.1-1.2); Monocytes Percent Auto 9.6 % (2-11); Neutrophils Absolute Auto 4.7 x10*3/uL (2.0-8.3); Platelet Count 138 X10*3/uL (160-400); Red Blood Count 3.35 X10*6/uL (4.60-5.80); Red Cell Distribution Width 15.4 % (11.0-16.0); White Blood Count 6.6 X10*3/uL (4.8-10.8)
[2023-06-26 12:51] LABS: Anion Gap 10 (12-20); Blood Urea Nitrogen 25 mg/dL (9-16); Calcium 8.8 mg/dL (8.4-10.2); Carbon Dioxide 27 mmol/L (22-29); Chloride 103 mmol/L (96-108); Estimated Glomerular Filt Rate > 60; Glucose Random 275 mg/dL (60-115); Potassium 4.4 mmol/L (3.3-5.1); Sodium 136 mmol/L (135-145)
== END 2023-06-26 11:08 | disposition home or self-care (01) ==
LOC: HO.LAB 11:07
PROVIDERS: PCP Internal Medicine; Visit Provider Internal Medicine
DX: R53.83 Other fatigue (principal)
CPT/HCPCS: 36415; 80048; 85025

== ENCOUNTER 2023-06-30 10:40 | Outpatient (REF) | payer MEDICARE, SELFPAY ==
--- NOTE | ~2023-06-30 | XR_ITS ---
EXAMINATION: XR CERVICAL SPINE CLINICAL INFORMATION: Severe neck pain COMPARISON: CT of cervical spine from 05/01/2023 TECHNIQUE: 3 views of the cervical spine were obtained. FINDINGS: There is straightening of cervical lordosis with grade 1 anterior listhesis of C2 over C3 and fusion of C3 -4 vertebral bodies, as well as narrowing of C4-C5, C5-C6 and C6-C7 intervertebral disc spaces. There is mild deformity of C6 vertebral body. Soft tissues unremarkable XR/XR cervical spine 3V IMPRESSION: Multilevel degenerative changes with no significant interval change since previous CT scan.
[2023-06-30 13:45] LABS: Estimated Average Glucose 189 mg/dL; Hemoglobin A1c % 8.2 % (<6.0)
== END 2023-06-30 10:41 | disposition home or self-care (01) ==
LOC: HO.HMGCX 10:40
PROVIDERS: PCP Internal Medicine; Visit Provider Internal Medicine
DX: E11.9 Type 2 diabetes mellitus without complications (principal); M54.2 Cervicalgia
CPT/HCPCS: 36415; 72040; 83036

== ENCOUNTER 2023-07-06 11:25 | Emergency (ER) | payer MEDICARE, SELFPAY ==
--- NOTE | ~2023-07-06 | US_ITS ---
EXAMINATION: COLOR-FLOW DUPLEX IMAGING OF THE RIGHT LOWER EXTREMITY ARTERIAL SYSTEM. VELOCITY MEASUREMENTS THROUGHOUT THE FEMORAL ARTERIES. CLINICAL INFORMATION: 87-year-old male with poikilothermia COMPARISON: None available TECHNIQUE: Grayscale, color and spectral Doppler imaging was obtained of the deep arterial system of the right lower extremity. FINDINGS: Patent deep arterial system of the right lower extremity. Multiphasic waveforms are present throughout the entirety of the right lower extremity with the exception of the anterior and posterior tibial arteries which demonstrate abnormal monophasic waveforms. No elevated velocities within the right lower extremity to suggest an area of focal hemodynamically significant stenosis. US/US arterial duplex LE RT IMPRESSION: Patent deep arterial system of the right lower extremity. No ultrasound evidence for focal hemodynamically significant stenosis. Some mild peripheral arterial disease is noted within the calf.
--- NOTE | ~2023-07-06 | US_ITS ---
EXAMINATION: US SCROTUM CLINICAL INFORMATION: Overlying cellulitis Swelling. COMPARISON: None available. TECHNIQUE: A sonogram of the scrotum was performed assessing purvis-scale appearance and color Doppler flow. Spectral Doppler analysis of the arterial and venous flow were performed in the testes bilaterally. FINDINGS: RIGHT: Right testicle measures 3.3 x 1.5 x 2.2 cm, volume 5.7 mL. No focal testicular parenchymal lesions are visualized. Spectral Doppler analysis of the arterial and venous flow is normal in the right testis. Right epididymal head is normal in size. Small right hydrocele. No varicocele is seen. Right epididymal Doppler flow is normal. LEFT: Left testicle measures 2.3 x 2.0 x 2.4 cm, volume 5.7 mL. No focal testicular parenchymal lesions are visualized. Spectral Doppler analysis of the arterial and venous flow is normal in the left testis. Left epididymal head is normal in size. Small left hydrocele. No varicocele is seen. Left epididymal Doppler flow is normal. There is partial visualization of a penile implant on the right. There is no abnormal fluid collection, no evidence of an abscess. US/US scrotum IMPRESSION: 1. Normal testicles and epididymides. 2. Small bilateral hydroceles. 3. Partial visualization of a penile implant on the right.
--- NOTE | ~2023-07-06 | US_ITS ---
EXAMINATION: RIGHT LOWER EXTREMITY DEEP VENOUS ULTRASOUND CLINICAL INFORMATION: Right lower extremity pain and edema. COMPARISON: Right lower extremity DVT study 05/24/2023 TECHNIQUE: Duplex Doppler imaging with compression maneuvers were performed of the right lower extremity deep venous system. FINDINGS: The visualized common femoral, femoral and popliteal veins demonstrate normal compressibility and color flow without evidence of venous thrombosis. Visualized portions of the calf veins demonstrate normal color fill-in suggesting patency. There is no evidence of a Alexander's cyst. US/US venous duplex LE RT IMPRESSION: No evidence of deep venous thrombosis involving the right lower extremity.
[2023-07-06 11:31] VITALS: BP 136/62; PULSE 70; O2SAT 99
[2023-07-06 11:33] VITALS: BP 129/56; PULSE 70; RESP 18; TEMP 36.9; O2SAT 97; BMI 27.9
--- NOTE | 2023-07-06 11:50 | ED_ITS ---
HPI - General Adult General Chief complaint: General Medical Stated complaint: RLE PAIN/INF W/DIFF AMB PER EMS Time Seen by Provider: 07/06/23 11:27 Source: patient, EMS, RN notes reviewed and old records reviewed Mode of arrival: EMS Limitations: no limitations History of Present Illness HPI narrative: 87-year-old male with pmhx significant for prostate CA, paroxysmal atrial fibrillation, congestive heart failure with preserved EF, pacemaker, urinary incontinence, chronic venous stasis presents to the ED today via EMS from home with multiple complaints. Patient reports increased swelling to his right lower extremity. He was evaluated in the ED for this 10 days ago and was admitted to the hospital for IV abx for cellulitis after failing outpatient treatment. He was discharged from this facility 2 days ago and returns today stating that his RLE swelling has worsened. He feels that his leg is cool to the touch and is painful. Patient states he is able to ambulate with a walker at home. Denies fever, chills, dizziness, chest pain, SOB, N/V, abd pain. He endorses chronic neuropathy. Additionally patient reports penis infection x2 weeks. States he has a physician visit him at home every Thursday. He was prescribed an oral medication for this however does not recall the name. He was taking it twice daily and completed the course this morning. He is able to retract the foreskin however it is painful. Endorses chronic dribbling from urethral meatus. Wears depends and a pad at baseline for this and expresses frustration that it's becoming expensive. States that his penis and scrotum have been very red and irritated recently. He currently follows with urologist for this. Related Data Home Medications Medication Instructions Recorded Confirmed insulin aspart U-100 100 unit/mL 1 sliding scale dose subcut 12/14/20 05/30/23 subcutaneous solution (Novolog USEASDIRECTD U-100 Insulin aspart) ipratropium 20 mcg-albuterol 100 1 puff inhalation TID 12/14/20 05/30/23 mcg/actuation mist for inhalation (Combivent Respimat) multivitamin 1 tab PO DAILY 12/14/20 05/30/23 atorvastatin 40 mg tablet 40 mg PO BEDTIME 06/13/21 05/30/23 insulin degludec 100 unit/mL (3 70 unit subcut DAILY 10/20/22 05/30/23 mL) subcutaneous pen (Tresiba FlexTouch U-100 insulin) oxycodone 5 mg tablet 5 mg PO QID PRN Severe Pain (Scale 01/04/23 05/30/23 Score 7-10) budesonide-formoterol HFA 80 2 puff inhalation BID 01/31/23 05/30/23 mcg-4.5 mcg/actuation aerosol inhaler (Symbicort) fluticasone propionate 50 1 spray intranasal DAILY PRN 01/31/23 05/30/23 mcg/actuation nasal Allergy Symptoms spray,suspension vitamin B complex 1 tab PO DAILY 01/31/23 05/30/23 losartan 25 mg tablet 25 mg PO DAILY 02/09/23 05/30/23 cholecalciferol (vitamin D3) 125 125 mcg PO DAILY 05/30/23 05/30/23 mcg (5,000 unit) tablet (Vitamin D3) magnesium 250 mg tablet 250 mg PO DAILY 05/30/23 05/30/23 omega-3s 300 [id number] 1 cap PO BID 05/30/23 05/30/23 [id number] oil 1,000 mg capsule ([place]-3 Fish Oil) pregabalin 150 mg capsule (Lyrica) 150 mg PO QID 05/30/23 05/30/23 zinc 220 mg PO DAILY 05/30/23 05/30/23 Previous Rx's Medication Instructions Recorded apixaban 5 mg tablet (Eliquis) 5 mg PO BID #60 tabs 02/09/23 furosemide 20 mg tablet 20 mg PO DAILY Edema #90 tabs 06/03/23 levofloxacin 500 mg tablet 500 mg PO DAILY 5 days #5 tabs 06/03/23 dronedarone 400 mg tablet (Multaq) 400 mg PO BID #180 tabs 06/08/23 isosorbide mononitrate 30 mg 30 mg PO DAILY #30 tabs 06/08/23 tablet,extended release 24 hr clotrimazole 1 % topical cream 1 appl topical BID 2 weeks #45 07/06/23 grams hydrocortisone 1 % topical cream 1 appl topical BID PRN rash 2 07/06/23 weeks #28.4 grams Allergies Allergy/AdvReac Type Severity Reaction Status Date / Time No Known Allergies Allergy Mild N/A Verified 05/30/23 08:39 Review of Systems 2 Review of Systems: Constitutional: No fever, chills, fatigue, night sweats, weight changes ENT/Mouth: No ear pain, hearing loss, nasal congestion, sinus pain, rhinorrhea, sore throat Eyes: No eye pain, swelling, redness, vision changes, discharge Cardio: No chest pain, palpitations, ROBERSON, orthopnea, +peripheral edema Pulm: No SOB, cough, sputum, wheezing, dyspnea, hemoptysis GI: No nausea, vomiting, hematemesis, abdominal pain, diarrhea, constipation, hematochezia, melena : No irregular bleeding, dysuria, +frequency, No urgency, hesitancy, hematuria, flank pain, urinary flow changes, +urinary incontinence, No retention MSK: No back pain, neck pain, joint pain, myalgias Skin: No lesions, rashes Neuro: No weakness, numbness, paresthesias, LOC, dizziness, headache All other systems reviewed and are negative. [facility] Past Medical History Attestation statement: The following information was validated with the patient. Source: old records reviewed and nursing notes reviewed Medical History Urinary tract infection due to Pseudomonas aeruginosa Recurrent UTI History of prostate cancer Acute retention of urine Persistent atrial fibrillation COVID-19 vaccine series completed History of cardioversion Hx of Lyme disease Tubular adenoma of colon History of ST elevation myocardial infarction (STEMI) (HFpEF) heart failure with preserved ejection fraction Cardiac pacemaker in situ (~12/2020) Hepatorenal syndrome Symptomatic bradycardia Ventricular bigeminy Thrombocytopenia PVC (premature ventricular contraction) CHF exacerbation Bifascicular block Pancytopenia Prostate CA Myocardial infarct, old CAD (coronary artery disease) HLD (hyperlipidemia) Diabetes HTN (hypertension) Surgical History History of colonoscopy History of cervical spinal surgery History of radical prostatectomy History of left inguinal hernia repair History of total right knee replacement (TKR) History of lumbar discectomy History of cardiac pacemaker (~12/2020) Social History Social History Household Members: Spouse Household Members Other:: 1 Housing: House Are you a primary home health care worker to a significant other at home: No Do you presently have visiting nurse or other home services: Yes Alcohol intake: current Alcohol intake frequency: holidays/special occasions only Alcohol type: wine Patient Tobacco Use Status: Former Tobacco user Quit Date: age 22's Tobacco use type: Cigarette Years Smoked: 10 Advance Directives: No Advance Directives Information Provided: Yes Advance Directives Date on File: 01/04/23 service: Yes Current occupational status: retired Physical Exam ED Vital Signs: Vital Signs - 24 hr 07/06/23 11:33 07/06/23 12:55 07/06/23 16:16 Temperature 98.4 F 98.3 F 98.2 F Pulse Rate 70 70 70 Respiratory Rate 18 19 18 Blood Pressure 129/56 L 132/60 130/67 Pulse Oximetry 97 97 99 Oxygen Delivery Method Room Air Room Air Room Air BMI result Body Mass Index 27.9 Vital signs stable Const General: cooperative, no acute distress, alert and awake Orientation/consciousness: patient oriented x3 Limitations: no limitations HENMT Head: Yes normal to inspection Ears: hearing grossly normal bilaterally General nose exam: Normal external nose present Eyes General: appearance normal, both eyes and all related structures Neck Neck: Yes normal visual inspection and Yes no meningeal signs Chest Chest palpation & inspection: normal inspection of the chest Resp Effort & Inspection: normal respiratory effort Auscultation: clear to auscultation bilaterally Cardio Rate: regular rate Rhythm: regular rhythm Heart sounds: S1 normal heart sound present and S2 normal heart sound present Peripheral pulses: Peripheral pulses 2+ throughout GI Inspection: Yes normal to inspection Palpation (GI): Soft to palpation, nontender, no guarding and hepatosplenomegaly present Other: + Penis is uncircumcised. Foreskin is able to be retracted however causes pain to patient. There is erythema noted to both penis and scrotum with notable skin irritation at the base of the penis. Urethral meatus with urine dribbling out. Perineum normal. No areas of necrosis. Testes: Testes normal and testicular lie normal Skin General skin exam: no rashes or lesions noted Neuro General: patient oriented x3, gait normal, moves all extremities and no meningeal signs Cranial nerves: Yes CN's II-XII intact bilaterally Extrem Other: + 2+ pitting edema noted to bilateral feet, R>L + Erythema noted to RLE consistent with chronic venous stasis + 2+ DP/PT pulses to RLE, 2+ DP/PT pulses to LLE General: Yes normal to inspection and Yes full ROM Course Course Course Narrative: 1233-- on review of chart, patient follows with urologist Dr. Jasso > was recommended to use penile clamps and referred to pelvic floor PT. Did not recommend indwelling catheter suprapubic catheter. Patient expressing frustration to both me and urologist regarding money spent on pads/diapers for this problem. 1526-- CBC without leukocytosis. Chronically stable anemia with H&H noted to be 10.6/32.8, upward trending since visit 10 days ago. Denies BRBPR, hematochezia or melena. BUN mildly elevated to 18, improved since last visit. US of scrotum without evidence of fluid collection or abscess. There is no fat stranding to suggest cellulitis. There are small bilateral hydroceles however unlikely cause of patient's symptoms. Exam consistent with balanitis & phimosis. > Arterial US of RLE without evidence of stenosis however shows mild PAD consistent with exam findings. Venous duplex of RLE without evidence of DVT. Patient's symptoms are consistent with chronic venous insufficiency and neuropathy. 1555-- Discussed lab and imaging results with patient. He continues to report neuropathic pain to his feet b/l > takes pregabalin for this TID, missed his dose this morning. He expresses frustration that this pain has been ruining his life over the last few years and he wants answers. He is unable to drive and live his life . I explained to him that this neuropathy is a chronic condition and secondary to his diabetes. I offered PT/case management consult however patient states that he has been in rehab before and it did not help him. Declining consult at this time. > I am still waiting for UA results. There is no concern for scrotal cellulitis, sepsis, or Nakita gangrene at this time. 1649-- Patient's vital stable at the end of my shift. Sign out given to my colleague, Mika GONZALEZ pending UA. Reevaluation(s) Reevaluation #1: UA came back negative for infection. Case discussed with Dr. Mccabe [facility] and she was informed of patient's labs including urine and she also evaluated patient prior to urine results and she states patient does requires admission. Patient can be discharged. lower extremities bilaterally not cellulitic. Not suspecting Nakita gangrene of testicles. 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 DIscharged with hydrocrotisone and clomitrazole Time: 18:44 Medications Administered Discontinued Medications Generic Name Dose Route Start Last Admin Trade Name Shantell PRN Reason Stop Dose Admin Furosemide 20 mg 07/06/23 15:51 07/06/23 16:25 Furosemide 20 Mg Tablet PO 07/06/23 15:52 20 mg ONCE ONE Administration Protocol Gabapentin 100 mg 07/06/23 16:30 07/06/23 16:41 Gabapentin 100 Mg Capsule PO 07/06/23 16:31 100 mg ONCE ONE Administration Medical Decision Making Medical Decision Making [facility] Narrative: 87-year-old male with pmhx significant for prostate CA, paroxysmal atrial fibrillation, congestive heart failure with preserved EF, pacemaker, urinary incontinence, chronic venous stasis presents to the ED today via EMS from home with multiple complaints. VSS, afebrile, normotensive. Penis is uncircumcised. Foreskin is able to be retracted however causes pain to patient. There is erythema noted to both penis and scrotum with notable skin irritation at the base of the penis. Urethral meatus with urine dribbling out. Perineum normal. No areas of necrosis. Bilateral LE with 2+ pitting edema. There is erythema noted to b/l LE consistent with venous stasis. Negative vivi sign b/l. NV intact distally. Clinical concern for cellulitis, DVT, arterial occlusion, chronic venous insufficiency, venous stasis. Unlikely NV compromise or threat to limb. Suspicion for UTI, scrotal cellulitis, balanitis, phimosis, and urinary incontinence. Unlikely founiers gangrene. Unlikely CHF. No concern for sepsis at this time. Plan at this time is basic labs, lower extremity US, scrotal US. Differential Diagnosis Differential Diagnoses: The differential diagnosis associated with the presentation includes As above. Admission/Observation Consideration of admission/observation: Escalation of care including admission/observation considered Lab Data [facility] Lab Attestation statement: I reviewed the patient's lab results. As above. 07/06/23 13:02 07/06/23 13:02 Labs: Lab Results 07/06/23 07/06/23 Range/Units 13:02 17:16 WBC 6.5 (4.8-10.8) X10*3/uL RBC 3.51 L (4.60-5.80) X10*6/uL Hgb 10.6 L (14.0-18.0) g/dl Hct 32.8 L (42.0-52.0) % MCV 93.4 (80.0-98.0) fL MCH 30.2 (27.0-33.0) pg MCHC 32.3 (31.0-36.0) g/dl RDW 15.5 (11.0-16.0) % Plt Count 168 (160-400) X10*3/uL MPV 9.9 (9.4-12.4) fL Immature Gran % (Auto) 0.6 H (0.0-0.4) % Neut % (Auto) 76.6 H (45-73) % Lymph % (Auto) 14.2 L (20-40) % [place] % (Auto) 7.9 (2-11) % Eos % (Auto) 0.5 (0-4) % Baso % (Auto) 0.2 (0-2) % Lymph # (Auto) 0.9 L (1.2-4.9) X10*3/uL [place] # (Auto) 0.5 (0.1-1.2) X10*3/uL Eos # (Auto) 0.0 (0.0-0.4) X10*3/uL Baso # (Auto) 0.0 (0.0-0.2) X10*3/uL Abs Immat Gran (auto) 0.04 H (0.00-0.03) X10*3/uL Absolute Neuts (auto) 5.0 (2.0-8.3) x10*3/uL Absolute Nucleated RBC 0.000 (0.0-0.012) X10*3/uL Nucleated RBC % (auto) 0.0 (0.0-0.2) /100WBC Sodium 137 (135-145) mmol/L Potassium 4.1 (3.3-5.1) mmol/L Chloride 103 (96-108) mmol/L Carbon Dioxide 27 (22-29) mmol/L Anion Gap 11 L (12-20) BUN 18 H (9-16) mg/dL Creatinine 0.95 (0.5-1.4) mg/dL Estim Creat Clear Calc 58.2 Estimated GFR > 60 Random Glucose 232 H (60-115) mg/dL Calcium 9.1 (8.4-10.2) mg/dL Magnesium 2.1 (1.6-2.6) mg/dL Total Bilirubin 1.0 (0.0-1.0) mg/dL AST 32 (5-37) U/L ALT 29 (0-40) U/L Alkaline Phosphatase 74 (39-117) U/L B-Natriuretic Peptide 353 H (<100) pg/mL Total Protein 6.3 L (6.5-8.0) g/dL Albumin 3.3 L (3.5-5.0) g/dL Lipase 10 (8-78) U/L Urine Color Yellow Urine Appearance Clear Urine pH 7.5 (5.0-9.0) Ur Specific [place] 1.010 (1.005-1.025) Urine Protein Negative (Neg-Trace) mg/dL Urine Glucose (UA) Negative (Negative) mg/dL Urine Ketones Negative (Negative) mg/dL Urine Blood Negative (Negative) Urine Nitrite Negative (Negative) Ur Leukocyte Esterase Trace H (Negative) Urine RBC 0-2 (0-2) /HPF Urine WBC 6-10 H (0-5) /HPF Ur Squamous Epith Cells 0-2 (0-2) /HPF Urine Bacteria None Seen (None Seen) Hyaline Casts 0-2 (0-2) /LPF COVID-19 (OCTAVIA) Negative (Negative) COVID-19 Clin Com See Note Independent Interpretation I performed an independent interpretation of an: Ultrasound Interpretation: Arterial US of b/l LE without acute arterial occlusion, agree with radiologist's interpretation. Venous US of RLE without acute DVT, agree with radiologist's interpretation. Scrotal US with small hydrocele, agree with radiologist's interpretation. Radiology Impression Discussion of test interpretation with radiology: I have reviewed the radiologist's reading. Radiologist Impression: US venous duplex LE RT IMPRESSION: No evidence of deep venous thrombosis involving the right lower extremity.? US arterial duplex LE RT IMPRESSION: Patent deep arterial system of the right lower extremity. No ultrasound evidence for focal hemodynamically significant stenosis. Some mild peripheral arterial disease is noted within the calf. US scrotum IMPRESSION: 1.? Normal testicles and epididymides. 2.? Small bilateral hydroceles. 3.? Partial visualization of a penile implant on the right. Independent Historian Clinical information obtained from an independent historian. History obtained from or confirmed by: EMS External Record Review External record reviewed: Inpatient record, Office record, Outpatient record, Prior outpatient labs, Prior outpatient radiology, Primary care record and Outside ED record Prescription Management I considered prescription management with: Antibiotic Chronic Conditions Patient?s care impacted by: Diabetes Critical Care Time Critical Care Time Critical Care Time: No Discharge Plan Discharge Clinical Impression: Chronic venous insufficiency of lower extremity, Balanitis, Phimosis Patient Disposition: Home, Self-Care Instructions: Balanitis (ED), Venous Insufficiency (DC) Additional Instructions: Return to the ED for any fever, chills, chest pain, shortness of breath, redness /swelling of lower extremities, calf pain, red streaks, blue and black discoloration, numbness / tingling, testicular pain, testicular swelling, penile lesions, penile discharge, erythema, dysuria, hematuria, or any other concerning symptoms. Please follow the primary care provider. Prescriptions: New clotrimazole 1 % cream 1 appl topical BID 14 Days Qty: 45 0RF hydrocortisone 1 % cream 1 appl topical BID PRN (Reason: rash) 14 Days Qty: 28.4 0RF No Action isosorbide mononitrate 30 mg tablet extended release 24 hr 30 mg PO DAILY Qty: 30 6RF Multaq 400 mg tablet 400 mg PO BID Qty: 180 6RF Combivent Respimat 20-100 mcg/actuation mist 1 puff inhalation TID multivitamin Tablet 1 tab PO DAILY insulin aspart U-100 [Novolog U-100 Insulin aspart] 100 unit/mL Solution 1 sliding scale dose SUBCUT USEASDIRECTD insulin degludec [Tresiba FlexTouch U-100] 100 unit/mL (3 mL) insulin pen 70 unit subcut DAILY oxycodone 5 mg tablet 5 mg PO QID PRN (Reason: Severe Pain (Scale Score 7-10)) Fulton-3 Fish Oil 300-1,000 mg Capsule 1 cap PO BID pregabalin [Lyrica] 150 mg capsule 150 mg PO QID magnesium 250 mg Tablet 250 mg PO DAILY cholecalciferol (vitamin D3) [Vitamin D3] 125 mcg (5,000 unit) Tablet 125 mcg PO DAILY zinc 220 mg PO DAILY furosemide 20 mg tablet 20 mg PO DAILY Qty: 90 1RF levofloxacin 500 mg tablet 500 mg PO DAILY 5 Days Qty: 5 0RF vitamin B complex Tablet 1 tab PO DAILY fluticasone propionate 50 mcg/actuation spray,suspension 1 spray INTRANASAL DAILY PRN (Reason: Allergy Symptoms) budesonide-formoterol [Symbicort] 80-4.5 mcg/actuation HFA aerosol inhaler 2 puff inhalation BID atorvastatin 40 mg tablet 40 mg PO BEDTIME losartan 25 mg tablet 25 mg PO DAILY Eliquis 5 mg tablet 5 mg PO BID Qty: 60 0RF Discharge Date/Time: 07/07/23 06:28 Print Language: Sammarinese
[2023-07-06 12:55] VITALS: BP 132/60; PULSE 70; RESP 19; TEMP 36.8; O2SAT 97
[2023-07-06 13:07] LABS: MANUAL DIFF FLAG NO
[2023-07-06 13:09] LABS: Basophils Percent Auto 0.2 % (0-2); Eosinophils Percent Auto 0.5 % (0-4); Hematocrit 32.8 % (42.0-52.0); Hemoglobin 10.6 g/dl (14.0-18.0); Imm Gran Abs Auto 0.04 X10*3/uL (0.00-0.03); Imm Gran Pct Auto 0.6 % (0.0-0.4); Lymphocytes Absolute Auto 0.9 X10*3/uL (1.2-4.9); Lymphocytes Percent Auto 14.2 % (20-40); Mean Corpuscular HGB Conc 32.3 g/dl (31.0-36.0); Mean Corpuscular Hemoglobin 30.2 pg (27.0-33.0); Mean Corpuscular Volume 93.4 fL (80.0-98.0); Mean Platelet Volume 9.9 fL (9.4-12.4); Monocytes Absolute Auto 0.5 X10*3/uL (0.1-1.2); Monocytes Percent Auto 7.9 % (2-11); Neutrophils Percent Auto 76.6 % (45-73); Platelet Count 168 X10*3/uL (160-400); Red Blood Count 3.51 X10*6/uL (4.60-5.80); Red Cell Distribution Width 15.5 % (11.0-16.0); White Blood Count 6.5 X10*3/uL (4.8-10.8)
[2023-07-06 13:24] LABS: Alanine Aminotransferase 29 U/L (0-40); Albumin Level 3.3 g/dL (3.5-5.0); Alkaline Phosphatase 74 U/L (39-117); Anion Gap 11 (12-20); Aspartate Amino Transferase 32 U/L (5-37); Blood Urea Nitrogen 18 mg/dL (9-16); Calcium 9.1 mg/dL (8.4-10.2); Carbon Dioxide 27 mmol/L (22-29); Chloride 103 mmol/L (96-108); Creatinine Clr Calc Pharmacy 58.2; Estimated Glomerular Filt Rate > 60; Glucose Random 232 mg/dL (60-115); Lipase 10 U/L (8-78); Magnesium 2.1 mg/dL (1.6-2.6); Potassium 4.1 mmol/L (3.3-5.1); Sodium 137 mmol/L (135-145); Total Protein 6.3 g/dL (6.5-8.0)
[2023-07-06 13:26] LABS: COVID-19 Test Negative (Negative); IDNOW Serial# BCCEAD1C
[2023-07-06 16:16] VITALS: BP 130/67; PULSE 70; RESP 18; TEMP 36.8; O2SAT 99
[2023-07-06] MEDS: Furosemide 20 MG TABLET PO (16:25)
[2023-07-06 16:34] LABS: B Type Natriuretic Peptide 353 pg/mL (<100)
[2023-07-06] MEDS: Gabapentin 100 MG CAPSULE PO (16:41)
[2023-07-06 17:28] LABS: Appearance Urine Clear; Color Urine Yellow; Glucose Urine UA Negative (Negative); Leukocyte Esterase Urine Trace (Negative); Nitrite Urine Negative (Negative); PH 7.5 (5.0-9.0); UMIC TRIGGER UACC YES; Urine Blood Negative (Negative); Urine Ketones Negative (Negative); Urine Protein Negative (Neg-Trace)
[2023-07-06 17:52] LABS: Bacteria Urine None Seen (None Seen); Hyaline Casts Urine 0-2 /LPF (0-2); RBC Urine 0-2 /HPF (0-2); Squamous Epithelial Cell Urine 0-2 /HPF (0-2); UACC Culture Trigger YES
== END 2023-07-07 06:28 | disposition home or self-care (01) ==
PROVIDERS: Physician Assistant; Physician Assistant Medical; Emergency Provider Emergency Medicine; PCP Internal Medicine
DX: I87.2 Venous insufficiency (chronic) (peripheral) (principal); N47.1 Phimosis; N48.1 Balanitis; R68.0 Hypothermia, not associated with low environmental temperature; N49.2 Inflammatory disorders of scrotum; M79.661 Pain in right lower leg; I48.0 Paroxysmal atrial fibrillation; I50.9 Heart failure, unspecified; R32 Unspecified urinary incontinence; M79.89 Other specified soft tissue disorders; D64.9 Anemia, unspecified; G62.9 Polyneuropathy, unspecified; Z95.0 Presence of cardiac pacemaker; Z11.52 Encounter for screening for COVID-19; Z79.899 Other long term (current) drug therapy
CPT/HCPCS: 76870; 80053; 81001; 83690; 83735; 83880; 85025; 87086; 87635; 93926; 93971; 99283; 99284

== ENCOUNTER 2023-07-22 12:39 | Outpatient (REF) | payer MEDICARE, SELFPAY ==
--- NOTE | ~2023-07-22 | US_ITS ---
EXAMINATION: NONINVASIVE ASSESSMENT OF THE ARTERY OF THE LEFT LOWER EXTREMITY INTERPRETING VASCULAR AND INTERVENTIONAL RADIOLOGIST: Oleg Nunn MD CLINICAL INFORMATION: Absent pedal pulses. TECHNIQUE: Left lower extremity duplex ultrasound was performed with velocity measurements and waveform analysis in the common femoral artery, profunda femoris artery, proximal mid and distal superficial femoral artery, popliteal artery and tibial vessels. This study was performed only at rest. COMPARISON: None FINDINGS: Velocities in cm/sec and phasicity as well as the presence of plaque are reported below. LEFT LEG: Calcified plaque is present throughout. No one focal area of velocity acceleration is seen to suggest a dominant focal stenosis. Triphasic flow is noted throughout much of the lower extremity with some areas with biphasic flow. Common Femoral: 88 Profunda Femoris: 55 Proximal Saphenofemoral: 85 Mid Saphenofemoral: 90 Distal Saphenofemoral: 41 Popliteal: 35 Posterior tibial artery: 130 Peroneal: 87 Anterior tibial artery: 77 Dorsalis pedis: 41 US/US arterial duplex LE LT IMPRESSION: There is no evidence of any hemodynamically significant lower extremity arterial disease by pressure, waveform or duplex Doppler criteria at rest.
== END 2023-07-22 12:40 | disposition home or self-care (01) ==
LOC: HO.US 12:39
PROVIDERS: PCP Internal Medicine; Visit Provider Internal Medicine
DX: R09.89 Other specified symptoms and signs involving the circulatory and respiratory systems (principal)
CPT/HCPCS: 93926

== ENCOUNTER 2023-08-11 12:37 | Outpatient (AMB) | payer MEDICARE, SELFPAY ==
[2023-08-11 12:41] VITALS: BP 124/68; PULSE 79; BMI 27.0
--- NOTE | 2023-08-11 12:41 | A.OFFVIS_ITS ---
Intake Vital Signs 08/11/23 12:41 Height 5 ft 7.5 in Weight 175 lb BMI 27.0 BP 124/68 Blood Pressure Location Lt brachial Position Sitting Pulse 79 Intake Visit Reasons: 6 mth fu w/ [facility] Intake Note: 6 month follow-up [facility] hearts doing ok Electro Mechanical Technician Required: No Geographic Information Scientist: Geographic Information Scientist Present Accompanied by: Spouse Allergies No Known Allergies Allergy (Mild, Verified 05/30/23 08:39) N/A Medication List - Last Reconciled 08/11/23 by Titi Deluca MD apixaban (Eliquis) 5 mg PO BID atorvastatin 40 mg PO BEDTIME budesonide-formoterol 80-4.5 mcg/actuation (Symbicort) 2 puffs inhalation BID cholecalciferol (vitamin D3) (Vitamin D3) 125 mcg PO DAILY clotrimazole 1% 1 appl topical BID 2 weeks dronedarone (Multaq) 400 mg PO BID fluticasone propionate 50 mcg/actuation 1 spray intranasal DAILY PRN furosemide 20 mg PO DAILY hydrocortisone 1% 1 appl topical BID PRN 2 weeks insulin aspart U-100 (Novolog U-100 Insulin aspart) 1 sliding scale dose subcut USEASDIRECTD insulin degludec (Tresiba FlexTouch U-100 insulin) 70 units subcut DAILY ipratropium-albuterol 20-100 mcg/actuation (Combivent Respimat) 1 puff inhalation TID isosorbide mononitrate ER 30 mg PO DAILY levofloxacin 500 mg PO DAILY 5 days losartan 25 mg PO DAILY magnesium 250 mg PO DAILY multivitamin 1 tab PO DAILY [id number]-fish oil 300-1,000 mg (Chilcoot-3 Fish Oil) 1 cap PO BID oxycodone 5 mg PO QID PRN pregabalin (Lyrica) 150 mg PO QID vitamin B complex 1 tab PO DAILY [zinc 220 mg PO DAILY] HPI HPI Comments History of Present Illness Details Jewel comes for follow-up. He is very frustrated because of his urinary incontinence and says nobody is helping him with this. However he has had extensive evaluation by urology team. Patient says he is currently not taking Lasix due to the same problem. He has notice some increased leg swelling as well as increase shortness of breath in the last few weeks. His BNP was also elevated in the 300 range. He has had no prolonged palpitation irregular heartbeat. He is taking his oral anticoagulation therapy. No bleeding issues. He has had couple of falls due to lack of balance [facility] Medical History Urinary tract infection due to Pseudomonas aeruginosa Recurrent UTI History of prostate cancer Acute retention of urine Persistent atrial fibrillation COVID-19 vaccine series completed History of cardioversion Hx of Lyme disease Tubular adenoma of colon History of ST elevation myocardial infarction (STEMI) (HFpEF) heart failure with preserved ejection fraction Cardiac pacemaker in situ (~12/2020) Hepatorenal syndrome Symptomatic bradycardia Ventricular bigeminy Thrombocytopenia PVC (premature ventricular contraction) CHF exacerbation Bifascicular block Pancytopenia Prostate CA Myocardial infarct, old CAD (coronary artery disease) HLD (hyperlipidemia) Diabetes HTN (hypertension) Surgical History History of colonoscopy History of cervical spinal surgery History of radical prostatectomy History of left inguinal hernia repair History of total right knee replacement (TKR) History of lumbar discectomy History of cardiac pacemaker (~12/2020) Social History Household Members: Spouse Household Members Other:: 1 Housing: House Are you a primary child care associate to a significant other at home: No Do you presently have visiting nurse or other home services: Yes Alcohol intake: current Alcohol intake frequency: holidays/special occasions only Alcohol type: wine Comment: pt refused bed/chair alarm Patient Tobacco Use Status: Former Tobacco user Quit Date: age 22's Tobacco use type: Cigarette Years Smoked: 10 Advance Directives Date on File: 01/04/23 service: Yes Current occupational status: retired Review of Systems Const Denies chills, Denies fatigue, Denies fever(s), Denies frequent falls, Denies weakness, Denies weight gain and Denies weight loss ENT Denies dizziness Card Denies chest pain, Denies leg edema, Denies lightheadedness, Denies palpitations, Denies dyspnea, Denies dyspnea on exertion, Denies orthopnea and Denies other (loss of consciousness) Resp Denies cough, Denies dyspnea and Denies dyspnea on exertion GI Denies hematochezia and Denies change in stool character Musc Denies abnormal gait, Denies muscle weakness, Denies numbness, Denies radiating pain into limb and Denies tingling Neuro Denies abnormal gait, Denies dizziness, Denies frequent falls, Denies numbness, Denies tingling and Denies weakness Endo Denies fatigue and Denies palpitations Physical Exam Vital Signs: Last Vital Signs Pulse 79 08/11/23 12:41 BP 124/68 08/11/23 12:41 BMI result Body Mass Index 27.0 Const General: cooperative, comfortable, no acute distress, alert and awake Nutritional Appearance: overweight Orientation/consciousness: patient oriented x3 Limitations: ambulation with cane Neck Neck: Yes trachea midline, Yes supple and Yes no JVD Resp Effort & Inspection: normal respiratory effort Auscultation: clear to auscultation bilaterally Cardio Jugular venous distension: no JVD Rate: regular rate Rhythm: regular rhythm Heart sounds: S1 normal heart sound present, S2 normal heart sound present, no click, no gallops and no murmurs Skin General skin exam: no rashes or lesions noted and ecchymosis Neuro General: patient oriented x3 and no focal motor deficits Extrem General: No clubbing, No cyanosis and Yes edema Psych Appearance: grossly normal Office Procedures Cardiac Device Check Cardiac Device Check Details: Dual-chamber [facility] pacemaker in place. Atrial pacing 53% time in ventricular pacing 98% of time. No episodes of atrial fibrillation noted. Atrial pacing thresholds are excellent. Ventricular pacing thresholds are stable. Atrial sensing is adequate. Pacing lead impedance is stable. Battery life is at 8.6 years [id number] Cardiac Device Check, pacemaker dual lead Procedure code (CPT) selection complete EKG Details: EKG shows atrially sensed, ventricularly paced rhythm at 80 beats per minute [id number], Complete Assessment & Plan Assessment & Plan (1) (HFpEF) heart failure with preserved ejection fraction: Code(s): I50.30 - Unspecified diastolic (congestive) heart failure Plan: Patient with elevated BNP and worsening symptoms of leg edema and shortness of breath after not taking his Lasix at home. I have strongly recommended him to restart taking his Lasix to avoid hospitalization. He said he understands. He is very frustrated about his urinary incontinence and feels that this is affecting the quality of his life. I emphasized with him but importance of diuretic therapy was discussed to avoid hospitalization. Daily weight monitoring avoidance of salt loading was discussed. He has had frequent falls and discussed with him about pursuing physical therapy to improve his balance. Continue aggressive blood pressure control which is currently well optimized. Continue rhythm control approach. (2) Paroxysmal atrial fibrillation: Code(s): I48.0 - Paroxysmal atrial fibrillation Plan: Paroxysmal atrial fibrillation which has remained suppressed. Patient is doing well with rhythm control approach. Continue full oral anticoagulation, currently on Multaq 400 mg b.i.d. tolerating it well. Continue the same. Will continue to monitor for recurrent atrial fibrillation with pacer telemetry. Continue full oral anticoagulation, currently on Eliquis 5 mg b.i.d.. Quarterly renal function test should be pursued. (3) Cardiac pacemaker in situ: Onset Date: ~12/2020 Comment: ([facility] DC[facility] 01/03/2021) Code(s): Z95.0 - Presence of cardiac pacemaker Plan: Cardiac pacemaker in-situ, working well. Reprogrammed for adequate function. Will follow remotely every 3 months in the clinic in 6 months time. Follow up in the clinic in 3 months time, sooner p.r.n.. Thank you for allowing me to partake in his care Coding Level of Care Code Est Pt Level 4 (50843) Diagnoses (HFpEF) heart failure with preserved ejection fraction I50.30 Paroxysmal atrial fibrillation I48.0 Cardiac pacemaker in situ Z95.0 CPT Codes Cardiac Device Check - Cardiac Device 2: [id number] Cardiac Device Check, pacemaker dual lead ([id number]) EKG - CPT: 17807-[id number], Complete ([id number])
== END 2023-08-11 13:16 | disposition home or self-care (01) ==
PROVIDERS: PCP Internal Medicine; Visit Provider Internal Medicine Cardiovascular Disease
DX: I50.30 Unspecified diastolic (congestive) heart failure (principal); I48.0 Paroxysmal atrial fibrillation; Z95.0 Presence of cardiac pacemaker
CPT/HCPCS: 93010; 93280; 99214

== ENCOUNTER → 2023-08-11 12:37 | Outpatient (BNVA) | payer MEDICARE, SELFPAY | PROVIDERS: PCP Internal Medicine; Visit Provider Internal Medicine Cardiovascular Disease | DX: Z45.018 Encounter for adjustment and management of other part of cardiac pacemaker (principal); I50.30 Unspecified diastolic (congestive) heart failure; I48.0 Paroxysmal atrial fibrillation | CPT/HCPCS: 93005; 93280; 99212 ==

== ENCOUNTER → 2023-08-11 23:59 | Outpatient (BNV) | payer MEDICARE, SELFPAY ==
--- NOTE | 2023-08-11 16:04 | MHC.OFFVIS ---
Intake Intake Visit Reasons: Remote Device Check- [facility] Allergies No Known Allergies Allergy (Mild, Verified 05/30/23 08:39) N/A REPLACED BY [facility] Medical History Urinary tract infection due to Pseudomonas aeruginosa Recurrent UTI History of prostate cancer Acute retention of urine Persistent atrial fibrillation COVID-19 vaccine series completed History of cardioversion Hx of Lyme disease Tubular adenoma of colon History of ST elevation myocardial infarction (STEMI) (HFpEF) heart failure with preserved ejection fraction Cardiac pacemaker in situ (~12/2020) Hepatorenal syndrome Symptomatic bradycardia Ventricular bigeminy Thrombocytopenia PVC (premature ventricular contraction) CHF exacerbation Bifascicular block Pancytopenia Prostate CA Myocardial infarct, old CAD (coronary artery disease) HLD (hyperlipidemia) Diabetes HTN (hypertension) Surgical History History of colonoscopy History of cervical spinal surgery History of radical prostatectomy History of left inguinal hernia repair History of total right knee replacement (TKR) History of lumbar discectomy History of cardiac pacemaker (~12/2020) Social History Household Members: Spouse Household Members Other:: 1 Housing: House Are you a primary gericare aide to a significant other at home: No Do you presently have visiting nurse or other home services: Yes Alcohol intake: current Alcohol intake frequency: holidays/special occasions only Alcohol type: wine Comment: pt refused bed/chair alarm Patient Tobacco Use Status: Former Tobacco user Quit Date: age 22's Tobacco use type: Cigarette Years Smoked: 10 Advance Directives Date on File: 01/04/23 service: Yes Current occupational status: retired Office Procedures Cardiac Device Check Cardiac Device Check Details: Remote pacemaker report generated 08/11/2023. Pacemaker function is adequate [id number] Cardiac Device Interrogation, pacemaker Procedure code (CPT) selection complete Assessment & Plan Assessment & Plan (1) Cardiac pacemaker in situ: Onset Date: ~12/2020 Comment: ([facility] DC[facility] 01/03/2021) Code(s): Z95.0 - Presence of cardiac pacemaker Plan: See above Coding Level of Care Code Procedure Only Diagnoses Cardiac pacemaker in situ Z95.0 CPT Codes Cardiac Device Check - Cardiac Device 12: [id number] Cardiac Device Interrogation, pacemaker ([id number])
== END ==
PROVIDERS: PCP Internal Medicine; Visit Provider Internal Medicine Cardiovascular Disease
DX: Z95.0 Presence of cardiac pacemaker (principal)
CPT/HCPCS: 93294

== ENCOUNTER 2023-08-24 14:01 | Observation (INO) | payer MEDICARE, SELFPAY ==
--- NOTE | 2023-08-24 | ECG_ITS ---
Test Reason : TIA Blood Pressure : / mmHG Vent. Rate : 070 BPM Atrial Rate : 250 BPM P-R Int : 000 ms QRS Dur : 174 ms QT Int : 498 ms P-R-T Axes : 000 -74 107 degrees QTc Int : 537 ms Ventricular-paced rhythm Abnormal ECG When compared with ECG of 24-MAY-2023 10:23, No significant change was found Referred By: Tonia Herndon Electronically Signed By:Peter Viera
--- NOTE | ~2023-08-24 | CT_ITS ---
EXAMINATION: CT OF THE HEAD WITHOUT CONTRAST CT OF THE CERVICAL SPINE WITHOUT CONTRAST CLINICAL INFORMATION: Fall. Positive head/neck strike. On blood thinners.. COMPARISON: CT scan of the head and neck dated 05/01/2023. TECHNIQUE: Contiguous axial imaging was performed from the skullbase to vertex without intravenous administration of contrast. Coronal reformations of the head were obtained. Contiguous axial imaging was then performed from the skull base down to the thoracic inlet. Coronal and sagittal reformations of the cervical spine were obtained. This CT examination was performed using dose optimization techniques as appropriate, variously including the following: *Automated exposure control *Adjustment of mA and/or kV according to patient size (this includes techniques or standardized protocols for targeted exams where dose is matched to indication/reason for exam; i.e. extremities or head) *Use of iterative reconstruction technique DLP: 1153.4 mGy-cm. FINDINGS: CT scan of the head: There is suspicion of bilateral small hygromas, measuring approximately 0.9 cm in thickness, with minimal mass effect upon the brain leading to slightly less prominent sulci when compared to the prior exam.. There is no evidence of acute intracranial hemorrhage or territorial infarction. No midline shift is seen. Mari to white matter differentiation is well preserved. No extra-axial fluid collections are identified. The ventricles and sulci are enlarged. There is subtle asymmetric hypodensity in region of the left superior cerebellar peduncle, perhaps representing a age indeterminate infarct. The osseous structures and soft tissues are normal. The patient is status post ocular lens extractions and ocular replacements. The mastoid air cells and visualized portions of the paranasal sinuses are well-aerated. CT scan of the cervical spine: As noted previously, there is a mild convex left cervical scoliosis and a minimal reversal of the normal cervical lordosis. Grade 1 anterolisthesis of C2 on C3 is again seen with relative widening of the C2-C3 disc space relative to the other cervical disc spaces, which are nearly completely fused from C3-C4 to T1-T2. There is diffuse osteopenia. Focal lucency in the left side of the C7 vertebral body again noted, unchanged. Prominent cystic changes and C7 also similar to prior exam. No evidence of acute fracture or dislocation. Craniocervical junction and atlantoaxial articulations are intact with mild hypertrophic changes and prominent posterior atlantodental ligamentous hypertrophy noted. Prevertebral soft tissues are normal in thickness. There is severe facet arthropathy throughout the cervical spine. The included soft tissues of the neck and upper chest are unremarkable. There is some interstitial thickening and subpleural reticulation noted in the lung apices bilaterally. CT/CT cervical spine wo IV con IMPRESSION: CT SCAN OF THE HEAD: * Subtle asymmetric hypodensity in the region of the left superior cerebellar peduncle, perhaps representing an age indeterminate infarct. Close clinical correlation is requested. Further assessment with MRI scan may be helpful to clarify the findings. 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 CT SCAN OF THE CERVICAL SPINE: * No evidence of cervical spine fracture or malalignment. * Extensive degenerative changes in the spine as discussed above. This critical result was discussed with Dr. Fabiola Benavidez 08/24/2023, 4:47 PM and it was ascertained that the content and urgency of this report was understood at the time of direct communication.
--- NOTE | ~2023-08-24 | CT_ITS ---
EXAMINATION: CT ANGIOGRAM NECK CT ANGIOGRAM HEAD CLINICAL INFORMATION: Gait and balance. Confusion. COMPARISON: 12/23/2020. TECHNIQUE: The degree of stenosis determined by NASCET criteria. This CT examination was performed using dose optimization techniques as appropriate, variously including the following: *Automated exposure control *Adjustment of mA and/or kV according to patient size (this includes techniques or standardized protocols for targeted exams where dose is matched to indication/reason for exam; i.e. extremities or head) *Use of iterative reconstruction technique DLP: 1452 mGy-cm FINDINGS: CTA chest: There is atherosclerotic plaque of the aortic arch without aneurysm. There is mild atherosclerotic at the portion of the aortic arch vessels. There is a right upper lobe opacity. CTA NECK: There is mild atherosclerotic plaque at the carotid bifurcation. The common carotid internal and external carotid arteries are patent. The left vertebral artery is dominant. Both vertebral arteries are patent. CTA HEAD: There is atherosclerotic plaque of the intracranial internal carotid arteries without significant narrowing. The bilateral middle cerebral and anterior cerebral arteries are patent. The distal right vertebral artery is hypoplastic. The basilar artery and branches as well as posterior cerebral arteries are also patent. Postcontrast delayed CT head: There is mild cerebral volume loss with prominence of the lateral and the third ventricles. The cortical sulci are widened appropriately. The fourth ventricle and basal cisterns are normally outlined. There is no acute territorial defect, hemorrhage or midline shift. The extra-axial spaces are unremarkable. Calvarium: Intact. Maxillofacial sinuses and mastoids: There is partial opacification of the left mastoid. There is mucosal thickening right maxillary sinus. The remaining maxillofacial sinuses and left mastoid are clear. CT/CT angio head neck IMPRESSION: 1. No acute intracranial abnormality. 2. No significant stenosis or occlusion of the cervical vasculature and intracranial vasculature. 3. Right upper lobe opacity may be infectious or inflammatory in etiology. 4. Mild cerebral volume loss.
[2023-08-24 14:07] VITALS: BP 128/60; PULSE 72; O2SAT 97
[2023-08-24 14:20] VITALS: BP 135/64; PULSE 70; RESP 18; TEMP 36.7; O2SAT 99; BMI 27.2
--- NOTE | 2023-08-24 14:25 | ED.FALL ---
HPI - Fall General Chief Complaint: Fall Stated Complaint: FALL,HIT HEAD,R ARM SKIN TEAR,-LOC,+ELIQUIS, Time Seen by Provider: 08/24/23 14:13 Source: patient and EMS Mode of arrival: EMS Limitations: no limitations History of Present Illness HPI Narrative: Patient comes to the emergency room from home via ambulance. Patient states that there was a small step-off between his kitchen and living room, there was a backpack right in the way covering the step, patient states that he did not lift high enough his walker, then fell and hit his head on the right side, patient did not lose consciousness, patient is on Eliquis for atrial fibrillation. Patient denies headache, no neck pain. Patient has an abrasion to the lateral aspect of the forehead/scalp, states the pain is localized but has no headache. Patient complaining of mild elbow pain on the right but is able to flex and extend. Patient has multiple abrasions from previous falls, [facility] get [facility] changes. Related Data Home Medications Medication Instructions Recorded Confirmed insulin aspart U-100 100 unit/mL 1 sliding scale dose subcut 12/14/20 08/11/23 subcutaneous solution (Novolog USEASDIRECTD U-100 Insulin aspart) ipratropium 20 mcg-albuterol 100 1 puff inhalation TID 12/14/20 08/11/23 mcg/actuation mist for inhalation (Combivent Respimat) multivitamin 1 tab PO DAILY 12/14/20 08/11/23 atorvastatin 40 mg tablet 40 mg PO BEDTIME 06/13/21 08/11/23 insulin degludec 100 unit/mL (3 70 unit subcut DAILY 10/20/22 08/11/23 mL) subcutaneous pen (Tresiba FlexTouch U-100 insulin) oxycodone 5 mg tablet 5 mg PO QID PRN Severe Pain (Scale 01/04/23 08/11/23 Score 7-10) budesonide-formoterol HFA 80 2 puff inhalation BID 01/31/23 08/11/23 mcg-4.5 mcg/actuation aerosol inhaler (Symbicort) fluticasone propionate 50 1 spray intranasal DAILY PRN 01/31/23 08/11/23 mcg/actuation nasal Allergy Symptoms spray,suspension vitamin B complex 1 tab PO DAILY 01/31/23 08/11/23 losartan 25 mg tablet 25 mg PO DAILY 02/09/23 08/11/23 cholecalciferol (vitamin D3) 125 125 mcg PO DAILY 05/30/23 08/11/23 mcg (5,000 unit) tablet (Vitamin D3) magnesium 250 mg tablet 250 mg PO DAILY 05/30/23 08/11/23 omega-3s 300 ya-lxh-bdo-other 1 cap PO BID 05/30/23 08/11/23 [id number] oil 1,000 mg capsule ([place]-3 Fish Oil) pregabalin 150 mg capsule (Lyrica) 150 mg PO QID 05/30/23 08/11/23 zinc 220 mg PO DAILY 05/30/23 08/11/23 Previous Rx's Medication Instructions Recorded apixaban 5 mg tablet (Eliquis) 5 mg PO BID #60 tabs 02/09/23 furosemide 20 mg tablet 20 mg PO DAILY Edema #90 tabs 06/03/23 levofloxacin 500 mg tablet 500 mg PO DAILY 5 days #5 tabs 06/03/23 dronedarone 400 mg tablet (Multaq) 400 mg PO BID #180 tabs 06/08/23 isosorbide mononitrate 30 mg 30 mg PO DAILY #30 tabs 06/08/23 tablet,extended release 24 hr clotrimazole 1 % topical cream 1 appl topical BID 2 weeks #45 07/06/23 grams hydrocortisone 1 % topical cream 1 appl topical BID PRN rash 2 07/06/23 weeks #28.4 grams Allergies Allergy/AdvReac Type Severity Reaction Status Date / Time No Known Allergies Allergy Mild N/A Verified 05/30/23 08:39 Review of Systems Review of Systems: Constitutional : No Weight loss, No Fever, No Chills, No Night Sweats, No Fatigue, No Malaise ENT/Mouth : No Hearing loss, No Ear Pain, No Nasal Congestion, No Sinus Pain, No Hoarseness, No sore throat, No Rhinorrhea, No Swallowing Difficulty Eyes: No Eye Pain, No Swelling, No Redness, No Foreign Body, No Discharge, No Vision Changes Cardiovascular : No Chest Pain, No SOB, No Dyspnea on Exertion, No Orthopnea, No Edema, No Palpitations Respiratory : No Cough, No Sputum, No Wheezing, No Smoke Exposure, No Dyspnea Gastrointestinal : No Nausea, No Vomiting, No Diarrhea, No Constipation, No abdominal Pain, No Hematochezia, No Melena Genitourinary : no irregular bleeding, No Dysuria, No Urinary Frequency, No Hematuria, No Urinary Incontinence, No Urgency, No Flank Pain, No Urinary Flow Changes, No Hesitancy Musculoskeletal : No joint pain, No Myalgias, No Joint Swelling Skin : Complaining of multiple skin abrasions in different stages of healing, new abrasion to the forehead Neuro : No Weakness, No Numbness, No Paresthesias, No Loss of Consciousness, No Dizziness, No Headache Psych : No Anxiety/Panic, No Depression, No SI/HI/AH/VH, No Social Issues, Heme/Lymph: No Bruising, No Bleeding,No Lymphadenopathy Endocrine : No Polyuria, No Polydipsia, No Temperature Intolerance PMFSH Past Medical History Onset Date is defined in the Problem List Problems that require an onset date and time if occurred within 24 hrs of arrival to the ED Aortic Dissection and Rupture; Neurologic impairment; Cardiopulmonary Arrest; Endotracheal Intubation; Insertion or Replacement of Mechanical Circulatory Assist Device Medical History Urinary tract infection due to Pseudomonas aeruginosa Recurrent UTI History of prostate cancer Acute retention of urine Persistent atrial fibrillation COVID-19 vaccine series completed History of cardioversion Hx of Lyme disease Tubular adenoma of colon History of ST elevation myocardial infarction (STEMI) (HFpEF) heart failure with preserved ejection fraction Cardiac pacemaker in situ (~12/2020) Hepatorenal syndrome Symptomatic bradycardia Ventricular bigeminy Thrombocytopenia PVC (premature ventricular contraction) CHF exacerbation Bifascicular block Pancytopenia Prostate CA Myocardial infarct, old CAD (coronary artery disease) HLD (hyperlipidemia) Diabetes HTN (hypertension) Surgical History History of colonoscopy History of cervical spinal surgery History of radical prostatectomy History of left inguinal hernia repair History of total right knee replacement (TKR) History of lumbar discectomy History of cardiac pacemaker (~12/2020) Social History Social History Household Members: Spouse Household Members Other:: 1 Housing: House Are you a primary elderly caregiver to a significant other at home: No Do you presently have visiting nurse or other home services: Yes Alcohol intake: current Alcohol intake frequency: holidays/special occasions only Alcohol type: wine Comment: pt refused bed/chair alarm Patient Tobacco Use Status: Former Tobacco user Quit Date: age 22's Tobacco use type: Cigarette Years Smoked: 10 Advance Directives: Yes Advance Directives Information Provided: No Advance Directives on File: No Advance Directives Date on File: 01/04/23 service: Yes Current occupational status: retired Physical Exam Vital Signs: Vital Signs: Last Vital Signs Temp 98.1 F 08/24/23 14:20 Pulse 70 08/24/23 14:20 Resp 18 08/24/23 14:20 BP 135/64 08/24/23 14:20 Pulse Ox 99 08/24/23 14:20 O2 Del Method Room Air 08/24/23 14:20 BMI result Body Mass Index 27.2 Const: Other: Appearance: Alert. Oriented X3. No acute distress. Eyes: Pupils equal, round and reactive to light. ENT: Pharynx normal. Neck: Normal inspection. Neck supple. No lymph nodes noted. No crepitus, no palpable step-off CVS: Normal heart rate and rhythm. Pulses normal. Normal S1 and S2 Respiratory: No respiratory distress. Breath sounds normal. No Wheezing. No rales Abdomen: Soft and nontender. No rigidity. No distention. Skin: Multiple ecchymoses informs legs and head, multiple skin abrasions in forearms at different stages of healing, Willa abrasion to the right side of the forehead/scalp, bleeding controlled. Patient has a new stage II pressure ulcer in the buttocks Extremities: No lower extremity edema. No Lacerations. No Rash Neuro: Oriented X 3. No motor deficit. No sensory deficit. Moving all extremities. No slurred speech. CN 2 through 12 grossly intact Psych: calm, cooperative, normal affect Course Course Course Narrative: -I discussed with the patient that we will get a head CT and cervical spine CT. Patient agreeable. Medical Decision Making Medical Decision Making MDM Narrative: -I discussed the CT scan findings with Dr. Mota from [facility], patient has bilateral hygromas, likely chronic. Patient also has possible new evolving cerebral peduncle infarct, but is unclear if it is an actual infarct. Patient has a pacemaker, MRI cannot be done. Option for now: Repeat CT scan in the morning. -patient states that he feels well, no neurological deficits, no headache. Vitals are stable -I discussed the patient with Dr. Mayes, patient being admitted Differential Diagnosis Differential Diagnoses: The differential diagnosis associated with the presentation includes (Intracranial bleed, subdural hematoma, contusion, concussion, CVA) Admission/Observation Consideration of admission/observation: Escalation of care including admission/observation considered Consult Healthcare Provider Management of the patient was discussed with: Hospitalist Independent Interpretation I performed an independent interpretation of an: CT Scan Radiology Impression Discussion of test interpretation with radiology: I discussed test interpretation with the radiologist and I have reviewed the radiologist's reading. Radiologist Impression: FINDINGS: CT scan of the head: There is suspicion of bilateral small hygromas, measuring approximately 0.9 cm in thickness, with minimal mass effect upon the brain leading to slightly less prominent sulci when compared to the prior exam.. There is no evidence of acute intracranial hemorrhage or territorial infarction. No midline shift is seen. Mari to white matter differentiation is well preserved. No extra-axial fluid collections are identified. The ventricles and sulci are enlarged. There is subtle asymmetric hypodensity in region of the left superior cerebellar peduncle, perhaps representing a age indeterminate infarct. The osseous structures and soft tissues are normal. The patient is status post ocular lens extractions and ocular replacements. The mastoid air cells and visualized portions of the paranasal sinuses are well-aerated. CT scan of the cervical spine: As noted previously, there is a mild convex left cervical scoliosis and a minimal reversal of the normal cervical lordosis. Grade 1 anterolisthesis of C2 on C3 is again seen with relative widening of the C2-C3 disc space relative to the other cervical disc spaces, which are nearly completely fused from C3-C4 to T1-T2. There is diffuse osteopenia. Focal lucency in the left side of the C7 vertebral body again noted, unchanged. Prominent cystic changes and C7 also similar to prior exam. No evidence of acute fracture or dislocation. Craniocervical junction and atlantoaxial articulations are intact with mild hypertrophic changes and prominent posterior atlantodental ligamentous hypertrophy noted. Prevertebral soft tissues are normal in thickness. There is severe facet arthropathy throughout the cervical spine. The included soft tissues of the neck and upper chest are unremarkable. There is some interstitial thickening and subpleural reticulation noted in the lung apices bilaterally. CT/CT head/brain wo IV con IMPRESSION: CT SCAN OF THE HEAD: * Subtle asymmetric hypodensity in the region of the left superior cerebellar peduncle, perhaps representing an age indeterminate infarct. Close clinical correlation is requested. Further assessment with MRI scan may be helpful to clarify the findings. 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 CT SCAN OF THE CERVICAL SPINE: * No evidence of cervical spine fracture or malalignment. * Extensive degenerative changes in the spine as discussed above. Critical Care Time Critical Care Time Critical Care Time: Yes Total Critical Care Time: 60 Attestation: I have personally provided critical care time. Time includes review of lab data, radiology results, discussion with consultants, and monitoring for potential decompensation. Intervention performed as documented. Discharge Plan Discharge Clinical Impression: Fall Patient Disposition: Admitted As Inpatient Prescriptions: No Action isosorbide mononitrate 30 mg tablet extended release 24 hr 30 mg PO DAILY Qty: 30 6RF Multaq 400 mg tablet 400 mg PO BID Qty: 180 6RF Combivent Respimat 20-100 mcg/actuation mist 1 puff inhalation TID multivitamin Tablet 1 tab PO DAILY insulin aspart U-100 [Novolog U-100 Insulin aspart] 100 unit/mL Solution 1 sliding scale dose SUBCUT USEASDIRECTD insulin degludec [Tresiba FlexTouch U-100] 100 unit/mL (3 mL) insulin pen 70 unit subcut DAILY oxycodone 5 mg tablet 5 mg PO QID PRN (Reason: Severe Pain (Scale Score 7-10)) [place]-3 Fish Oil 300-1,000 mg Capsule 1 cap PO BID pregabalin [Lyrica] 150 mg capsule 150 mg PO QID magnesium 250 mg Tablet 250 mg PO DAILY cholecalciferol (vitamin D3) [Vitamin D3] 125 mcg (5,000 unit) Tablet 125 mcg PO DAILY zinc 220 mg PO DAILY furosemide 20 mg tablet 20 mg PO DAILY Qty: 90 1RF levofloxacin 500 mg tablet 500 mg PO DAILY 5 Days Qty: 5 0RF clotrimazole 1 % cream 1 appl topical BID 14 Days Qty: 45 0RF hydrocortisone 1 % cream 1 appl topical BID PRN (Reason: rash) 14 Days Qty: 28.4 0RF vitamin B complex Tablet 1 tab PO DAILY fluticasone propionate 50 mcg/actuation spray,suspension 1 spray INTRANASAL DAILY PRN (Reason: Allergy Symptoms) budesonide-formoterol [Symbicort] 80-4.5 mcg/actuation HFA aerosol inhaler 2 puff inhalation BID atorvastatin 40 mg tablet 40 mg PO BEDTIME losartan 25 mg tablet 25 mg PO DAILY Eliquis 5 mg tablet 5 mg PO BID Qty: 60 0RF
--- NOTE | 2023-08-24 14:49 | PC.NURSE ---
pt was seen by dr latasha melendez made aware of the care plan. pt has multiple skin tears and the start of a pressure wound on his buttocks. wound care completed. he is alert and appropriately conversational.
--- NOTE | 2023-08-24 18:47 | P.HPHOSP_ITS ---
<Statement entered by Santosh Mayes MD - 08/25/23 12:51> The patient was seen and evaluated with DONTRELL Vincent. I agree with her note, assessment and plan with the following. In summary, An 87 year old male with PMH of PAF on Eliquis s/p PPM, DM2, dCHF, CAD, history of prostate cancer, COPD among others who is presenting to the hospital with confusion, unsteadiness and fall. Concern over medication side effect vs stroke\TIA # Confusion, Unsteadiness CT head showed subtle asymmetric hypodensity in the region of the left superior cerebellar peduncle angle possibly representing age-indeterminate infarct DDx medication side effect vs stroke\TIA ideally cerebellar stroke should not cause confusion Check CTA head and neck, can not have MRI Neurology consult ASA, Atorvastatin and neurochecks Rest of evaluations by DONTRELL note. History of Present Illness Date of Service: 08/24/23 Attending physician on admission: Santosh Mayes Chief Complaint: fall 87-year-old male with history of paroxysmal atrial fibrillation anticoagulated with Eliquis s/p pacemaker, insulin-dependent type 2 diabetes, heart failure preserved ejection fraction, coronary artery disease H/O STEMI, history of prostate cancer, COPD, hypertension, hyperlipidemia presented to the ED earlier today via EMS after sustaining a mechanical fall. The patient tells me when he woke this morning he did not feel like himself and was somewhat confused. He has little memory of events from this morning but states he felt very unsteady on his feet, increased from baseline though does use a walker to assist with ambulation. He states there is a very small step in his kitchen which she is typically very aware of and uses caution around, but today he tripped on the step landing on the right side of his head but denies any loss of consciousness. He was unable to get up and called EMS for assistance. He denies any associated fevers, chills, lightheadedness, unilateral weakness, paresthesias, facial droop, slurred speech, visual changes, shortness of breath, palpitations, or chest pain. No recent illness. Denies any urinary symptoms or diarrhea. Of note, pt did take an ambien last night which he does not typically do. On arrival, vital signs stable. CT of the cervical spine negative for fracture or malalignment but does show extensive degenerative changes. CT of the head shows a subtle asymmetric hypodensity in the region of the left superior cerebellar peduncle, perhaps representing age-indeterminate infarct. Attempt was made to obtain MRI of the brain but due to pacemaker was unable to be imaged. 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 There is noted to be a small scalp hematoma with laceration that did not require suturing and without active bleeding. He does report mild right sided headed. Review of Systems Review of Systems: General: No fevers, malaise, unintentional weight loss HEENT: No blurred vision, diplopia. No sore throat, nasal congestion, rhinorrhea, sinus pain, ear pain Cardiovascular: No chest pain, palpitations, or leg edema Respiratory: No shortness of breath, wheezing, cough GI: No abdominal pain, nausea, vomiting, diarrhea, constipation, melena, hematochezia : No dysuria, hematuria, increased urinary frequency, decreased urinary output MSK: No myalgia, back pain. +fall Neuro: No headaches, weakness, paresthesias. +amnesia, +peripheral neuropathy, +confusion Skin: No rashes or lesions [facility] Medical History Urinary tract infection due to Pseudomonas aeruginosa Recurrent UTI History of prostate cancer Acute retention of urine Persistent atrial fibrillation COVID-19 vaccine series completed History of cardioversion Hx of Lyme disease Tubular adenoma of colon History of ST elevation myocardial infarction (STEMI) (HFpEF) heart failure with preserved ejection fraction Cardiac pacemaker in situ (~12/2020) Hepatorenal syndrome Symptomatic bradycardia Ventricular bigeminy Thrombocytopenia PVC (premature ventricular contraction) CHF exacerbation Bifascicular block Pancytopenia Prostate CA Myocardial infarct, old CAD (coronary artery disease) HLD (hyperlipidemia) Diabetes HTN (hypertension) Surgical History History of colonoscopy History of cervical spinal surgery History of radical prostatectomy History of left inguinal hernia repair History of total right knee replacement (TKR) History of lumbar discectomy History of cardiac pacemaker (~12/2020) Social History Household Members: Spouse Household Members Other:: 1 Housing: House Are you a primary ambulatory care coordinator to a significant other at home: No Do you presently have visiting nurse or other home services: Yes Alcohol intake: current Alcohol intake frequency: holidays/special occasions only Alcohol type: wine Comment: pt refused bed/chair alarm Patient Tobacco Use Status: Former Tobacco user Quit Date: age 22's Tobacco use type: Cigarette Years Smoked: 10 Advance Directives: Yes Advance Directives Information Provided: No Advance Directives on File: No Advance Directives Date on File: 01/04/23 service: Yes Current occupational status: retired [employer] Allergies Allergy/AdvReac Type Severity Reaction Status Date / Time No Known Allergies Allergy Mild N/A Verified 05/30/23 08:39 Active Medications: Current Medications Acetaminophen (Acetaminophen 325 Mg Tablet) 650 mg PO Q6H PRN PRN Reason: Pain, Mild (Pain Scale 1-3) Aspirin (Aspirin Enteric Coated 81 Mg Tablet.Dr) 81 mg PO DAILY [facility] Ondansetron HCl (Ondansetron Hcl 4 Mg/2 Ml Vial) 4 mg IVPUSH Q8H PRN PRN Reason: Nausea and Vomiting Senna (Sennosides 8.6 Mg Tablet) 17.2 mg PO BEDTIME PRN PRN Reason: Constipation Sodium Chloride (0.9 % Sodium Chloride Flush 3 Ml Syringe) 3 ml IVFLUSH [facility] Home Medications Medication Instructions Recorded Confirmed Last Taken Type insulin aspart U-100 100 unit/mL 1 sliding scale dose subcut 12/14/20 08/24/23 05/30/23 History subcutaneous solution (Novolog USEASDIRECTD U-100 Insulin aspart) ipratropium 20 mcg-albuterol 100 1 puff inhalation TID 12/14/20 08/24/23 05/30/23 History mcg/actuation mist for inhalation (Combivent Respimat) multivitamin 1 tab PO DAILY 12/14/20 08/24/23 05/30/23 History atorvastatin 40 mg tablet 40 mg PO BEDTIME 06/13/21 08/24/23 05/29/23 History insulin degludec 100 unit/mL (3 70 unit subcut DAILY 10/20/22 08/24/23 05/30/23 History mL) subcutaneous pen (Tresiba FlexTouch U-100 insulin) oxycodone 5 mg tablet 5 mg PO QID PRN Severe Pain (Scale 01/04/23 08/24/23 Unknown History Score 7-10) budesonide-formoterol HFA 80 2 puff inhalation BID 01/31/23 08/24/23 05/30/23 History mcg-4.5 mcg/actuation aerosol inhaler (Symbicort) vitamin B complex 1 tab PO DAILY 01/31/23 08/24/23 05/30/23 History losartan 25 mg tablet 25 mg PO DAILY 02/09/23 08/24/23 05/30/23 History cholecalciferol (vitamin D3) 125 125 mcg PO DAILY 05/30/23 08/24/23 05/30/23 History mcg (5,000 unit) tablet (Vitamin D3) magnesium 250 mg tablet 250 mg PO DAILY 05/30/23 08/24/23 05/30/23 History omega-3s 300 sk-hly-lcz-other 1 cap PO BID 05/30/23 08/24/23 05/30/23 History tugci2s-imyr oil 1,000 mg capsule ([place]-3 Fish Oil) zinc 220 mg PO DAILY 05/30/23 08/24/23 05/30/23 History ammonium lactate 12 % topical cream 1 appl topical BID 08/24/23 08/24/23 Unknown History ciprofloxacin HCl 500 mg tablet 500 mg PO Q12H 08/24/23 08/24/23 Unknown History Physical Exam Vital Signs and Narrative: Vital Signs: Last Vital Signs Temp 98.1 F 08/24/23 14:20 Pulse 70 08/24/23 14:20 Resp 18 08/24/23 14:20 BP 135/64 08/24/23 14:20 Pulse Ox 99 08/24/23 14:20 O2 Del Method Room Air 08/24/23 14:20 BMI result Body Mass Index 27.2 Constitutional - Awake and Alert, No apparent distress Eyes - PERRLA, EOMI Head - normocephalic. Superficial ulceration posterior scale. 3cm laceration R parietal scalp with small hematoma, no active bleeding Cardiovascular - S1S2, RRR, No edema Respiratory - Normal lung expansion, Normal respiratory effort, No respiratory distress, CTA bilaterally Gastrointestinal - NT / ND; +BS; No rebound or guarding Extremities - no calf tenderness bilaterally, no swelling Skin - Warm/Dry Neurological - Alert & oriented x3, CN II-XII in tact, 5/5 strength BUE and BLE. Normal [id number] testing, normal rapid alternating action testing, normal hears to julien testing. Negative Romberg Psychological - Appropriate affect Results Imaging Radiologist's Impressions: Impressions Cervical Spine CT 08/24/23 15:03 IMPRESSION: CT SCAN OF THE HEAD: * Subtle asymmetric hypodensity in the region of the left superior cerebellar peduncle, perhaps representing an age indeterminate infarct. Close clinical correlation is requested. Further assessment with MRI scan may be helpful to clarify the findings. 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 CT SCAN OF THE CERVICAL SPINE: * No evidence of cervical spine fracture or malalignment. * Extensive degenerative changes in the spine as discussed above. This critical result was discussed with Dr. Fabiola Benavidez 08/24/2023, 4:47 PM and it was ascertained that the content and urgency of this report was understood at the time of direct communication. Head CT 08/24/23 15:03 IMPRESSION: CT SCAN OF THE HEAD: * Subtle asymmetric hypodensity in the region of the left superior cerebellar peduncle, perhaps representing an age indeterminate infarct. Close clinical correlation is requested. Further assessment with MRI scan may be helpful to clarify the findings. 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 CT SCAN OF THE CERVICAL SPINE: * No evidence of cervical spine fracture or malalignment. * Extensive degenerative changes in the spine as discussed above. This critical result was discussed with Dr. Fabiola Benavidez 08/24/2023, 4:47 PM and it was ascertained that the content and urgency of this report was understood at the time of direct communication. Assessment and Plan (1) Fall: Status: Acute (2) TIA (transient ischemic attack): Status: Acute Plan 87-year-old male with history of paroxysmal atrial fibrillation anticoagulated with Eliquis s/p pacemaker, insulin-dependent type 2 diabetes, heart failure preserved ejection fraction, coronary artery disease H/O STEMI, history of prostate cancer, COPD, hypertension, hyperlipidemia to be observed for possible TIA #TIA -pt with retrograde anemia, unsteady gait this morning with full resolution on arrival. Less likely r/t to ambien taken last night though could be contributory -Head CT head with subtle asymmetric hypodensity in the region of the left superior cerebellar peduncle angle possibly representing age-indeterminate infarct -CTA head/neck pending -no MRI given pacer maker -bedside swallow eval -echocardiogram -check coag studies, trop, EKG -check lipid panel, atorvastatin 80 mg daily -ASA 81 mg now, continue daily -stroke education -neurochecks -pt/ot eval -neurology consult #Fall -mechanical, possibly related to above -PT eval -head CT negative for any intracranial bleed -cold pack on scalp hematoma # insulin-dependent type 2 diabetes -uncontrolled last hemoglobin A1c of 8.2%, goal less than 8.0% -dose adjust basal insulin -Humalog on sliding scale -diabetic diet -POC glucose #Paroxysmal atrial fibrillation -rate controlled -continue Eliquis for anticoagulation, metoprolol, and Multaq # CAD -no anginal chest pain -continue home meds # hypertension -blood pressure reasonably controlled -continue home meds #HFpEF -as above -continue lasix # COPD -no acute exacerbation -continue maintenance inhalers, albuterol p.r.n. 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 Add gabapentin 300mg bedtime DVT prophylaxis- eliquis Full code Quality Stroke Does the patient have a stroke diagnosis?: Yes Reason for No Anti-thrombotic by Day Two: Drug treatment not indicated VTE Prior VTE?: No VTE Risk Level:: Medical - moderate - high VTE Device Contraindication: Treatment Not Indicated VTE Drug Contraindication: N/A - Med Ordered
--- NOTE | 2023-08-24 19:05 | PHA.MEDREC ---
Addendum entered by Reuben Saini 08/25/23 09:27: Pt takes Oxycodone 10mg Q4H PRN Severe Pain and Pregablin 150mg QID. Added to med rec. Original Note: Pharmacy Consult ? Medication Reconciliation Pharmacy has completed the medication reconciliation.CONFIRMED MED LIST WITH PATIENT. HE SAYS HE ONLY TOOK 1 DOSE ZOLPIDEM LAST NIGHT AND HE IS CONVINCED IT IS WHAT MADE HIM FALL. HE SAYS HE NEVER WANTS TO TAKE IT AGAIN. I LEFT IT OFF HOME MED LIST DUE TO THIS BUT PHARMACY FILLED ZOLPIDEM 10 MG.
[2023-08-24 19:25] LABS: MANUAL DIFF FLAG NO
[2023-08-24 19:28] LABS: Basophils Percent Auto 0.1 % (0-2); Eosinophils Absolute Auto 0.1 X10*3/uL (0.0-0.4); Eosinophils Percent Auto 1.3 % (0-4); Hematocrit 34.6 % (42.0-52.0); Hemoglobin 11.3 g/dl (14.0-18.0); Imm Gran Abs Auto 0.08 X10*3/uL (0.00-0.03); Lymphocytes Absolute Auto 0.8 X10*3/uL (1.2-4.9); Lymphocytes Percent Auto 10.5 % (20-40); Mean Corpuscular HGB Conc 32.7 g/dl (31.0-36.0); Mean Corpuscular Hemoglobin 29.3 pg (27.0-33.0); Mean Corpuscular Volume 89.6 fL (80.0-98.0); Mean Platelet Volume 11.6 fL (9.4-12.4); Monocytes Absolute Auto 0.6 X10*3/uL (0.1-1.2); Monocytes Percent Auto 7.4 % (2-11); Neutrophils Absolute Auto 6.1 x10*3/uL (2.0-8.3); Neutrophils Percent Auto 79.7 % (45-73); Platelet Count 122 X10*3/uL (160-400); Red Blood Count 3.86 X10*6/uL (4.60-5.80); Red Cell Distribution Width 18.5 % (11.0-16.0); White Blood Count 7.7 X10*3/uL (4.8-10.8)
[2023-08-24 19:33] LABS: INTERNATIONAL NORM RATIO 1.2 (0.9-1.1); Prothrombin Time 14.7 SEC (11.1-13.3)
[2023-08-24 19:43] LABS: Alanine Aminotransferase 39 U/L (0-40); Albumin Level 2.9 g/dL (3.5-5.0); Alkaline Phosphatase 83 U/L (39-117); Anion Gap 12 (12-20); Aspartate Amino Transferase 46 U/L (5-37); Bilirubin Direct 0.3 mg/dL (0.0-0.5); Bilirubin Total 0.7 mg/dL (0.0-1.0); Blood Urea Nitrogen 23 mg/dL (9-16); Calcium 8.6 mg/dL (8.4-10.2); Carbon Dioxide 26 mmol/L (22-29); Chloride 108 mmol/L (96-108); Cholesterol 90 mg/dL (<200); Creatinine Clr Calc Pharmacy 60.8; Estimated Glomerular Filt Rate > 60; Glucose Random 121 mg/dL (60-115); HDL Cholesterol 42 mg/dL (>40); LDL Cholesterol Calculated 41 mg/dL (<100); Potassium 4.8 mmol/L (3.3-5.1); Sodium 141 mmol/L (135-145); Triglycerides 35 mg/dL (<150)
[2023-08-24 19:50] VITALS: BP 132/76; PULSE 70; RESP 18; O2SAT 99
[2023-08-24 19:50] LABS: Troponin-I High Sensitivity 39.9 ng/L (<3.5-35.0)
[2023-08-24] MEDS: Aspirin Enteric Coated 81 MG TABLET.DR PO (20:52)
[2023-08-24] MEDS: Atorvastatin Calcium 80 MG TABLET PO (21:31)
[2023-08-24] MEDS: Gabapentin 300 MG CAPSULE PO (21:31)
[2023-08-24 21:43] LABS: Glucose, Whole Blood 298 mg/dL (60-115)
[2023-08-24] MEDS: Apixaban 5 MG TABLET PO (23:34)
[2023-08-24] MEDS: oxyCODONE HCl Immed Release 5 MG TABLET PO (23:35)
[2023-08-25] MEDS: iohexoL 350 MG/ML 100 ML INFUS..BTL 85 ML IV (00:37)
[2023-08-25 00:41] VITALS: BP 129/67; PULSE 70; RESP 16; O2SAT 95
--- NOTE | 2023-08-25 00:54 | PC.NURSE ---
ASSUMED CARE OF PT AT 2315. PT MEDICATED PER OCT FOR PAIN. PT STATES PAIN HAS NOT IMPROVED, USUALLY TAKE 10MG OXY AT HOME; PT ALSO STATES GABAPENTIN DOSAGE IS WRONG; THIS RN UNABLE TO VERIFY. DR ARIAS NOTIFIED. PT REFUSING NONPHARMOLOGICAL PAIN RELIEF METHODS (ICE/HEAT PACK, ELEVATION, ETC). PT MOVED INTO HOSPITAL BED UPON RETURN FROM CT SCAN. SKIN ABRASIONS WRAPPED BY PREVIOUS RN; DRESSING DRY AND INTACT. BED ALARM SUPPLY CHAIN DIRECTOR ANSARI WITHIN REACH. PT ON HEART MONITOR. LIGHTS DIMMED FOR COMFORT.
[2023-08-25] MEDS: 0.9 % Sodium Chloride Flush 3 ML SYRINGE IVFLUSH (00:58)
--- NOTE | 2023-08-25 01:16 | PC.NURSE ---
DR ARIAS MADE AWARE OF PAIN MED REQUEST PT EDUCATED DOSAGE GIVEN PER MED REC DONE WITH PHARMACY. PT REFUSING STRAIGHT CATH AT THIS TIME REQUESTING TO PLACE URINAL TO OBTAIN CATCH; DR ARIAS AWARE AND OK WITH PLAN.
--- NOTE | 2023-08-25 02:22 | MHC.EDTECH ---
pt incontinenent of urine pt cleaned and dry. VSS
[2023-08-25 04:14] LABS: Appearance Urine Clear; Color Urine Yellow; Glucose Urine UA >=1000 mg/dL (Negative); Leukocyte Esterase Urine Small (1+) (Negative); Nitrite Urine Negative (Negative); Specific Gravity - Urine >= 1.030 (1.005-1.025); UMIC TRIGGER UACC YES; Urine Blood Small (1+) (Negative); Urine Ketones Negative (Negative); Urine Protein Negative (Neg-Trace)
[2023-08-25 04:48] LABS: Bacteria Urine None Seen (None Seen); Hyaline Casts Urine 0-2 /LPF (0-2); Squamous Epithelial Cell Urine 0-2 /HPF (0-2); UACC Culture Trigger YES
[2023-08-25 05:24] VITALS: BP 122/76; PULSE 66; RESP 16; TEMP 36.9; O2SAT 94
[2023-08-25 06:18] LABS: MANUAL DIFF FLAG NO
[2023-08-25 06:25] LABS: Basophils Percent Auto 0.2 % (0-2); Eosinophils Absolute Auto 0.1 X10*3/uL (0.0-0.4); Eosinophils Percent Auto 2.1 % (0-4); Hematocrit 32.4 % (42.0-52.0); Hemoglobin 10.4 g/dl (14.0-18.0); Imm Gran Abs Auto 0.06 X10*3/uL (0.00-0.03); Lymphocytes Absolute Auto 0.8 X10*3/uL (1.2-4.9); Lymphocytes Percent Auto 13.5 % (20-40); Mean Corpuscular HGB Conc 32.1 g/dl (31.0-36.0); Mean Corpuscular Hemoglobin 28.7 pg (27.0-33.0); Mean Corpuscular Volume 89.5 fL (80.0-98.0); Mean Platelet Volume 11.4 fL (9.4-12.4); Monocytes Absolute Auto 0.5 X10*3/uL (0.1-1.2); Monocytes Percent Auto 8.4 % (2-11); Neutrophils Absolute Auto 4.4 x10*3/uL (2.0-8.3); Neutrophils Percent Auto 74.8 % (45-73); Platelet Count 111 X10*3/uL (160-400); Red Blood Count 3.62 X10*6/uL (4.60-5.80); Red Cell Distribution Width 18.4 % (11.0-16.0); White Blood Count 5.8 X10*3/uL (4.8-10.8)
[2023-08-25 06:58] LABS: Anion Gap 9 (12-20); Blood Urea Nitrogen 19 mg/dL (9-16); Calcium 8.4 mg/dL (8.4-10.2); Carbon Dioxide 24 mmol/L (22-29); Chloride 109 mmol/L (96-108); Creatinine Clr Calc Pharmacy 63.1; Estimated Glomerular Filt Rate > 60; Glucose Random 202 mg/dL (60-115); Potassium 4.2 mmol/L (3.3-5.1); Sodium 138 mmol/L (135-145)
--- NOTE | 2023-08-25 07:00 | CA_ITS ---
Transthoracic Echocardiogram Patient (Last, First, Middle): Parent, Filemon Holloway Gender: Male Date of : 1935 Age: 87 Procedure Date: 08/25/2023 Procedure Type: Transthoracic Echocardiogram Location: ER Height: 170. cm Weight: 78.47 kg BSA: 1.90 m2 Heart Rate: bpm BP: 129 / 67 mmHg Chronometer Repairer: ANNE MARIE Referring MD: Tonia JON Symptoms: tia Study Quality: Adequate with contrast Conclusions: - Normal left ventricular cavity size. There is mildly increased left ventricular wall thickness. The left ventricular systolic function is low normal. The visually estimated ejection fraction is between 50-55%. - Mildly increased right ventricular cavity size. There is normal right ventricular systolic function. There is a pacemaker wire seen in the right ventricle. Findings Procedure Information Contrast agent, definity, is being given per protocol without apparent complications. Left Ventricle Normal left ventricular cavity size. There is mildly increased left ventricular wall thickness. The left ventricular systolic function is low normal. The visually estimated ejection fraction is between 50-55%. There is no evidence of regional wall motion abnormalities. There is paradoxical septal motion consistent with a right ventricular pacemaker. Diastolic function is indeterminate on the basis of available data. Right Ventricle Mildly increased right ventricular cavity size. There is normal right ventricular systolic function. There is a pacemaker wire seen in the right ventricle. Atria The left atrium is normal in size. The right atrium is normal in size. Aortic Valve There is a normal trileaflet aortic valve. There is mild calcification of the aortic valve. There is no aortic valve stenosis. There is no aortic valve regurgitation. Mitral Valve The mitral valve appears normal. There is mild mitral valve regurgitation. There is no mitral valve stenosis. Pulmonic Valve The pulmonic valve is likely normal. Tricuspid Valve Normal tricuspid valve structure. There is trace tricuspid valve regurgitation. Tricuspid regurgitation envelope is inadequate for calculation of right ventricular systolic pressure. Normal right atrial pressure. Great Vessels There is mild dilatation of the ascending aorta measuring 3.70 cm. The visualized portions of the pulmonary artery and branches are normal. Venous The inferior vena cava is normal in size and collapses greater than 50% with inspiration. Pericardium/Pleural There is no evidence of pericardial effusion. Prior Study Comparison Changes noted compared to prior study dated: 10/16/2022. Low normal LVEF. Mild dilation of RV. Measurements 2D Linear Measurements IVSd: 1.30 0.6-0.9/0.6-1.0 cm LVIDd: 4.48 3.9-5.3/4.2-5.9 cm LVIDd Index: 2.36 2.4-3.2/2.2-3.1 cm/m2 LVIDs: 3.36 2.0-3.6 cm LVPWd: 1.25 0.7-1.1 cm LA Diam: 4.20 2.7-3.8/3.0-4.0 cm LAIDs Index: 2.21 1.5-2.3 cm/m2 LV Mass: 267.81 67-162/88-224 g LV Mass Index: 140.95 43-95/49-115 g/m2 LVOT Diam: 2.10 3.0+(-)1.3 cm 2D Systolic Function EF 4C: 51.20 >55% EF 2C: 45.50 >55% EF BiP: 49.00 >55% Mitral Valve MV Pk E: 0.87 MV PK A: 0.53 MV Decel Time: 141.00 E/A: 1.70 E'Lateral: 5.22 E'Medial: 5.55 E/E' Med: 15.70 E/E' Lat: 16.70 PHT: 41.00 MVA PHT: 5.37 Decel Harper: 6.21 Aortic Valve AoV Pk Rogelio: 1.42 AoV Mn Rogelio: 0.97 AoV VTI: 0.28 AoV Pk Grad: 8.00 Aov Mn Grad: 4.00 CHRISTIANO Cont.VTI: 2.29 LVOT LVOT Pk Rogelio: 0.99 LVOT Mn Rogelio: 0.70 LVOT VTI: 0.19 LVOT Pk Grad: 4.00 LVOT Mn Grad: 2.00 LVOT Diam: 2.10 LVOT Area: 3.46 Diastolic Function MV Pk E: 0.87 MV Pk A: 0.53 E/A: 1.70 E'Medial: 5.55 E/E' Med: 15.70 E' Laterial: 5.22 E/E' Lat: 16.70 Right Ventricle TAPSE (mm): 17.80 Tricuspid Valve TR Pk Rogelio: 1.86 TR Pk Grad: 14.00 Great Vessels Aorta Sinus of Valsalva: 3.60 2.0-3.5 cm Ao Asc: 3.70 2.1-3.4 cm Pulmonary Valve PV Pk Rogelio: 1.06 Peak PV Grad: 4.00 Updated in Other Vendor System with Status of Final Peter Viera MD electronically signed on 08/25/2023 12:41:08 PM with status of Final
[2023-08-25 07:24] LABS: Glucose, Whole Blood 146 mg/dL (60-115)
[2023-08-25 08:20] VITALS: PULSE 81
--- NOTE | 2023-08-25 08:34 | PC.NURSE ---
assumed care of pt at 0700. pt a&o x4, calm, and cooperative. pt ambulated to bathroom with walker. ate breakfast. reporting 9/10 pain to left foot due to neuropathy. call pal within pt reach. plan of care ongoing.
--- NOTE | 2023-08-25 09:29 | PC.NURSE ---
called pharmacy to do a repeat med rec. per pt, medications are incorrect, pt is very agitated about it.
--- NOTE | 2023-08-25 09:50 | PM.NEUROCN ---
History of Present Illness Data of Consult Service Date: 08/25/23 Primary Care Provider: Jewel Rebolledo MD [facility] Reason for consult: Fall ?TIA This is a 87-year-old male with history of paroxysmal atrial fibrillation anticoagulated with Eliquis s/p pacemaker, insulin-dependent type 2 diabetes, heart failure preserved ejection fraction, coronary artery disease H/O STEMI, history of prostate cancer, COPD, hypertension, hyperlipidemia, severe diabetic neuropathy with partial foot drop, presented to the ED earlier today via EMS after sustaining a mechanical fall. He had taken Ambien the night before, woke this morning and did not feel like himself and was somewhat confused. He has little memory of events from this morning but states he felt very unsteady on his feet, increased from baseline though does use a walker to assist with ambulation. He tripped on a small step to the kitchen landing on the right side of his head but denies any loss of consciousness. He was unable to get up and called EMS for assistance. He denies any associated fevers, chills, lightheadedness, unilateral weakness, paresthesias, facial droop, slurred speech, visual changes, shortness of breath, palpitations, or chest pain. No recent illness. Denies any urinary symptoms or diarrhea. He had fallen on 08/17/23 also after a few drinks as he felt inebriated and had scalp laceration . CT of the cervical spine negative for fracture or malalignment but does show extensive degenerative changes. CT of the head shows bilateral subdural hygromas that are significantly larger than Ct in April 2023. Questionable hypodensity in the region of the left superior cerebellar peduncle probably artifactual or representing age-indeterminate infarct. No MRI of the brain but due to pacemaker. He has small scalp hematoma with laceration that did not require suturing and without active bleeding. He does report mild right sided headed. Review of Systems Review of Systems: General: No fevers, malaise, unintentional weight loss HEENT: No blurred vision, diplopia. No sore throat, nasal congestion, rhinorrhea, sinus pain, ear pain Cardiovascular: No chest pain, palpitations, or leg edema Respiratory: No shortness of breath, wheezing, cough GI: No abdominal pain, nausea, vomiting, diarrhea, constipation, melena, hematochezia : No dysuria, hematuria, increased urinary frequency, decreased urinary output MSK: No myalgia, back pain. +fall Neuro: No headaches, weakness, paresthesias. +amnesia, +peripheral neuropathy, +confusion Skin: No rashes or lesions [facility] Past Medical History Medical History Urinary tract infection due to Pseudomonas aeruginosa Recurrent UTI History of prostate cancer Acute retention of urine Persistent atrial fibrillation COVID-19 vaccine series completed History of cardioversion Hx of Lyme disease Tubular adenoma of colon History of ST elevation myocardial infarction (STEMI) (HFpEF) heart failure with preserved ejection fraction Cardiac pacemaker in situ (~12/2020) Hepatorenal syndrome Symptomatic bradycardia Ventricular bigeminy Thrombocytopenia PVC (premature ventricular contraction) CHF exacerbation Bifascicular block Pancytopenia Prostate CA Myocardial infarct, old CAD (coronary artery disease) HLD (hyperlipidemia) Diabetes HTN (hypertension) Surgical History Surgical History History of colonoscopy History of cervical spinal surgery History of radical prostatectomy History of left inguinal hernia repair History of total right knee replacement (TKR) History of lumbar discectomy History of cardiac pacemaker (~12/2020) Social History Social History Household Members: Spouse Household Members Other:: 1 Housing: House Are you a primary transitional care liaison to a significant other at home: No Do you presently have visiting nurse or other home services: Yes Alcohol intake: current Alcohol intake frequency: holidays/special occasions only Alcohol type: wine Comment: pt refused bed/chair alarm Patient Tobacco Use Status: Former Tobacco user Quit Date: age 22's Tobacco use type: Cigarette Years Smoked: 10 Advance Directives: Yes Advance Directives Information Provided: No Advance Directives on File: No Advance Directives Date on File: 01/04/23 service: Yes Current occupational status: retired Meds Allergies Allergy/AdvReac Type Severity Reaction Status Date / Time No Known Allergies Allergy Mild N/A Verified 05/30/23 08:39 Active Medications: Current Medications Acetaminophen (Acetaminophen 325 Mg Tablet) 650 mg PO Q6H PRN PRN Reason: Pain, Mild (Pain Scale 1-3) Apixaban (Apixaban 5 Mg Tablet) 5 mg PO BID [facility] Aspirin (Aspirin Enteric Coated 81 Mg Tablet.) 81 mg PO DAILY [facility] Last Admin: 08/24/23 20:52 Dose: 81 mg Atorvastatin Calcium (Atorvastatin Calcium 80 Mg Tablet) 80 mg PO BEDTIME [facility] Last Admin: 08/24/23 21:31 Dose: 80 mg Atorvastatin Calcium (Atorvastatin Calcium 40 Mg Tablet) 40 mg PO BEDTIME [facility] Clotrimazole (Clotrimazole 1 % Cream 15 Gm Tube) 1 appl TOPICAL BID [facility]; Protocol Dextrose (Dextrose 50 % 25 Gm/50 Ml Syringe) 25 gm IVPUSH Q15M PRN; Protocol PRN Reason: per Hypoglycemia Standing Ord. Dronedarone (Dronedarone Hcl 400 Mg Tablet) 400 mg PO BID [facility] Furosemide (Furosemide 20 Mg Tablet) 20 mg PO DAILY [facility]; Protocol Gabapentin (Gabapentin 300 Mg Capsule) 300 mg PO BEDTIME [facility] Last Admin: 08/24/23 21:31 Dose: 300 mg Glucose (Glucose Gel 15 Gm Gel..Gram.) 15 gm PO Q15M PRN; Protocol PRN Reason: per Hypoglycemia Standing Ord. Insulin Human Lispro (Insulin Lispro 100 Unit/Ml 3 Ml Vial) 0 unit SUBCUT QIDACHS [facility]; Protocol Last Admin: 08/25/23 07:29 Dose: Not Given Isosorbide Mononitrate (Isosorbide Mononitrate 30 Mg Tab.Er.24h) 30 mg PO DAILY [facility]; Protocol Lactic Acid (Ammonium Lactate 12 % Cream 140 Gm Tube) 1 appl TOPICAL BID [facility]; Protocol Losartan Potassium (Losartan Potassium 25 Mg Tablet) 25 mg PO DAILY [facility]; Protocol Multivitamins/Vitamin C (Multivitamin Tablet) 1 tab PO DAILY [facility] Non-Formulary Medication (Budesonide-Formoterol [Symbicort]) 2 puff INHALE BID [facility] Non-Formulary Medication (Insulin Degludec [Tresiba Flextouch U-100]) 50 unit SUBCUT DAILY [facility] Non-Formulary Medication (Ipratropium-Albuterol [Combivent Respimat]) 1 puff INHALE TID [facility] Non-Formulary Medication (Magnesium) 250 mg PO DAILY [facility] Non-Formulary Medication (Bqowd-[id number]-[id number]-Epa-Fish Oil [[place]-3 Fish Oil]) 1 cap PO BID [facility] Ondansetron HCl (Ondansetron Hcl 4 Mg/2 Ml Vial) 4 mg IVPUSH Q8H PRN PRN Reason: Nausea and Vomiting Oxycodone HCl (Oxycodone Hcl Immed Release 5 Mg Tablet) 10 mg PO Q4H PRN PRN Reason: Severe Pain (Scale Score 7-10) Pregabalin (Pregabalin 150 Mg Capsule) 150 mg PO QID [facility] Senna (Sennosides 8.6 Mg Tablet) 17.2 mg PO BEDTIME PRN PRN Reason: Constipation Sodium Chloride (0.9 % Sodium Chloride Flush 3 Ml Syringe) 3 ml IVFLUSH QSHIFT [facility] Last Admin: 08/25/23 07:30 Dose: Not Given Vitamin D (Cholecalciferol (Vitamin D3) 25 Mcg Tablet) 125 mcg PO DAILY [facility] Zinc Sulfate (Zinc Sulfate 220 Mg Capsule) 220 mg PO DAILY [facility] Home Medications Medication Instructions Recorded Confirmed Last Taken Type insulin aspart U-100 100 unit/mL 1 sliding scale dose subcut 12/14/20 08/24/23 05/30/23 History subcutaneous solution (Novolog USEASDIRECTD U-100 Insulin aspart) ipratropium 20 mcg-albuterol 100 1 puff inhalation TID 12/14/20 08/24/23 05/30/23 History mcg/actuation mist for inhalation (Combivent Respimat) multivitamin 1 tab PO DAILY 12/14/20 08/24/23 05/30/23 History atorvastatin 40 mg tablet 40 mg PO BEDTIME 06/13/21 08/24/23 05/29/23 History insulin degludec 100 unit/mL (3 70 unit subcut DAILY 10/20/22 08/24/23 05/30/23 History mL) subcutaneous pen (Tresiba FlexTouch U-100 insulin) budesonide-formoterol HFA 80 2 puff inhalation BID 01/31/23 08/24/23 05/30/23 History mcg-4.5 mcg/actuation aerosol inhaler (Symbicort) vitamin B complex 1 tab PO DAILY 01/31/23 08/24/23 05/30/23 History losartan 25 mg tablet 25 mg PO DAILY 02/09/23 08/24/23 05/30/23 History cholecalciferol (vitamin D3) 125 125 mcg PO DAILY 05/30/23 08/24/23 05/30/23 History mcg (5,000 unit) tablet (Vitamin D3) magnesium 250 mg tablet 250 mg PO DAILY 05/30/23 08/24/23 05/30/23 History omega-3s 300 ps-zbf-del-other 1 cap PO BID 05/30/23 08/24/23 05/30/23 History [id number] oil 1,000 mg capsule ([place]-3 Fish Oil) zinc 220 mg PO DAILY 05/30/23 08/24/23 05/30/23 History ammonium lactate 12 % topical cream 1 appl topical BID 08/24/23 08/24/23 Unknown History ciprofloxacin HCl 500 mg tablet 500 mg PO Q12H 08/24/23 08/24/23 Unknown History oxycodone 10 mg tablet 10 mg PO Q4H PRN Severe Pain 08/25/23 08/25/23 Unknown History (Scale Score 7-10) pregabalin 150 mg capsule 150 mg PO QID 08/25/23 08/25/23 Unknown History Physical Exam Vital Signs: Vital Signs: Last Vital Signs Temp 98.4 F 08/25/23 05:24 Pulse 66 08/25/23 05:24 Resp 16 08/25/23 05:24 BP 122/76 08/25/23 05:24 Pulse Ox 94 08/25/23 05:24 O2 Del Method Room Air 08/25/23 05:24 BMI result Body Mass Index 27.2 Const: Other: Appearance: Alert. Oriented X3. No acute distress. Eyes: Pupils equal, round and reactive to light. ENT: Pharynx normal. Neck: Normal inspection. Neck supple. No lymph nodes noted. No crepitus, no palpable step-off CVS: Normal heart rate and rhythm. Pulses normal. Normal S1 and S2 Respiratory: No respiratory distress. Breath sounds normal. No Wheezing. No rales Abdomen: Soft and nontender. No rigidity. No distention. Skin: Multiple ecchymoses informs legs and head, multiple skin abrasions in forearms at different stages of healing, [place] abrasion to the right side of the forehead/scalp, bleeding controlled. Patient has a new stage II pressure ulcer in the buttocks Extremities: No lower extremity edema. No Lacerations. No Rash Neuro: Oriented X 3. No motor deficit. No sensory deficit. Moving all extremities. No slurred speech. CN 2 through 12 grossly intact Psych: calm, cooperative, normal affect Neuro: Other: He is alert and oriented x3 with normal intellectual and cognitive functions. Speech and language is normal. Cranial nerves II through XII are normal. His exam is nonfocal. He has atrophy of the anterior tibial muscles and partial foot drop bilaterally, right greater than left. He is areflexic. Plantar response are flexor Results Labs 08/25/23 05:49 08/25/23 05:49 Labs: Short CBC 08/24/23 08/25/23 Range/Units 19:15 05:49 WBC 7.7 5.8 (4.8-10.8) X10*3/uL Hgb 11.3 L 10.4 L (14.0-18.0) g/dl Hct 34.6 L 32.4 L (42.0-52.0) % Plt Count 122 L D 111 L (160-400) X10*3/uL BMP 08/24/23 08/25/23 19:16 05:49 Sodium 141 138 Potassium 4.8 4.2 Chloride 108 109 H Carbon Dioxide 26 24 BUN 23 H 19 H Creatinine 0.83 0.80 Calcium 8.6 8.4 Liver Function 08/24/23 Range/Units 19:16 Total Bilirubin 0.7 (0.0-1.0) mg/dL Direct Bilirubin 0.3 (0.0-0.5) mg/dL AST 46 H (5-37) U/L ALT 39 (0-40) U/L Alkaline Phosphatase 83 (39-117) U/L Albumin 2.9 L (3.5-5.0) g/dL Urine 08/25/23 Range/Units 04:05 Urine Color Yellow Urine Appearance Clear Urine pH 7.0 (5.0-9.0) Ur Specific [place] >= 1.030 H (1.005-1.025) Urine Protein Negative (Neg-Trace) mg/dL Urine Glucose (UA) >=1000 H (Negative) mg/dL Assessment and Plan (1) Fall: Status: Acute His fall is marked multifactorial, probably because of the use of Ambien at night superimposed on his ulnar neuropathy with bilateral foot drop beading him too trip. His CAT scan shows bilateral subdural hygromas which are new from April and probably related to some bleeding from his head trauma a week earlier. Recommendation: Followup CT scan in one month (2) TIA (transient ischemic attack): Status: Acute I do not believe that he had a TIA or a stroke. His alteration and fall. It was probably from his use of Ambien. He had had a fall 6 days earlierAfter several drinks for [place]. His exam is nonfocal. Plan 87-year-old male with history of paroxysmal atrial fibrillation anticoagulated with Eliquis s/p pacemaker, insulin-dependent type 2 diabetes, heart failure preserved ejection fraction, coronary artery disease H/O STEMI, history of prostate cancer, COPD, hypertension, hyperlipidemia to be observed for possible TIA #TIA -pt with retrograde anemia, unsteady gait this morning with full resolution on arrival. Less likely r/t to ambien taken last night though could be contributory -Head CT head with subtle asymmetric hypodensity in the region of the left superior cerebellar peduncle angle possibly representing age-indeterminate infarct -CTA head/neck pending -no MRI given pacer maker -bedside swallow eval -echocardiogram -check coag studies, trop, EKG -check lipid panel, atorvastatin 80 mg daily -ASA 81 mg now, continue daily -stroke education -neurochecks -pt/ot eval -neurology consult #Fall -mechanical, possibly related to above -PT eval -head CT negative for any intracranial bleed -cold pack on scalp hematoma # insulin-dependent type 2 diabetes -uncontrolled last hemoglobin A1c of 8.2%, goal less than 8.0% -dose adjust basal insulin -Humalog on sliding scale -diabetic diet -POC glucose #Paroxysmal atrial fibrillation -rate controlled -continue Eliquis for anticoagulation, metoprolol, and Multaq # CAD -no anginal chest pain -continue home meds # hypertension -blood pressure reasonably controlled -continue home meds #HFpEF -as above -continue lasix # COPD -no acute exacerbation -continue maintenance inhalers, albuterol p.r.n. 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 Add gabapentin 300mg bedtime DVT prophylaxis- eliquis Full code Procedures Date of Service Date of Service: 08/25/23
[2023-08-25 10:05] LABS: Troponin-I High Sensitivity 38.7 ng/L (<3.5-35.0)
[2023-08-25] MEDS: Cholecalciferol (Vitamin D3) 25 MCG TABLET 125 MCG PO (10:23)
[2023-08-25] MEDS: Multivitamin TABLET 1 TAB PO (10:23)
[2023-08-25] MEDS: Pregabalin 150 MG CAPSULE PO ×4 (10:24→22:22)
[2023-08-25] MEDS: Isosorbide Mononitrate 30 MG TAB.ER.24H PO (10:24)
[2023-08-25] MEDS: Furosemide 20 MG TABLET PO (10:25)
[2023-08-25] MEDS: Apixaban 5 MG TABLET PO ×2 (10:25→22:21)
[2023-08-25] MEDS: Acetaminophen 325 MG TABLET 650 MG PO ×2 (10:25→22:20)
[2023-08-25] MEDS: Losartan Potassium 25 MG TABLET PO (10:25)
[2023-08-25] MEDS: Insulin Glargine,Hum.rec.anlog 100 UNIT/ML 10 ML VIAL 35 UNIT SUBCUT (10:29)
--- NOTE | 2023-08-25 10:35 | PC.NURSE ---
pt aspirin held due to low platelets.
[2023-08-25] MEDS: oxyCODONE HCl Immed Release 5 MG TABLET 10 MG PO ×2 (10:41→22:21)
[2023-08-25] MEDS: Zinc Sulfate 220 MG CAPSULE PO (10:42)
[2023-08-25] MEDS: Dronedarone HCl 400 MG TABLET PO ×2 (10:42→23:00)
[2023-08-25 10:43] VITALS: BP 131/70; PULSE 69; RESP 15
[2023-08-25] MEDS: Albuterol/Iprat 2.5/0.5MG 3 ML AMPUL.NEB INHALE ×2 (10:59→15:10)
[2023-08-25] MEDS: Fluticasone/Vilanterol 100/25 BLST.W.DEV 1 PUFF INHALE (11:01)
[2023-08-25 11:02] VITALS: PULSE 81; RESP 16; O2SAT 96
--- NOTE | 2023-08-25 11:49 | MHC.CM.PN ---
ESTIVEN 08/25/22, EMR REVIEWED, PT ADMITTED W/TIA, O.T. CURRENTLY RECOMENDS STR, P.T. PENDING, CM MET W/PT WHO IS A&O AND REPORTING HE WILL NOT GO TO STR OR ACUTE REHAB HE LIKES HIS PHYSICAL THERAPIST W/[facility], CM WILL REQUEST INCREASE IN SERVICES HE ONLY HAS ONCE WEEKLY VISITS FROM P.T., PT HAS CANE/WALKER/CHAIR LIFT/WALK IN SHOWER/ GRAB BARS COMING INTO HOUSE. PT VERIFIES PCP AND HCP ON FILE ARE CORRECT. ANTIC HOME W/[facility] ONCE MEDICALLY CLEARED W/FAMILY FOR TRANSPORT
--- NOTE | 2023-08-25 12:02 | P.DS_ITS ---
DS: Providers Provider Date of Service: 08/26/23 Date of admission: 08/24/23 18:40 Date of discharge: 08/26/23 Primary care physician: Jewel Rebolledo MD Admitting clinician: Toina Herndon Attending physician on admission: Santosh Mayes Consults: 08/24/23 18:44 Consult to Neurology Routine Consulting Provider: Yoanna Draper Reason for consultation: tia Attending physician on discharge: Basil Larkin Discharging clinician: Tonia Herndon DS: Diagnosis Discharge Diagnosis (1) Fall: Status: Acute (2) TIA (transient ischemic attack): Status: Acute DS: Summary Hospital Course Hospital Course: HPI on admission by this provider on 08/24: 87-year-old male with history of paroxysmal atrial fibrillation anticoagulated with Eliquis s/p pacemaker, insulin-dependent type 2 diabetes, heart failure preserved ejection fraction, coronary artery disease H/O STEMI, history of prostate cancer, COPD, hypertension, hyperlipidemia presented to the ED earlier today via EMS after sustaining a mechanical fall. The patient tells me when he woke this morning he did not feel like himself and was somewhat confused. He has little memory of events from this morning but states he felt very unsteady on his feet, increased from baseline though does use a walker to assist with ambulation. He states there is a very small step in his kitchen which she is typically very aware of and uses caution around, but today he tripped on the step landing on the right side of his head but denies any loss of consciousness. He was unable to get up and called EMS for assistance. He denies any associated fevers, chills, lightheadedness, unilateral weakness, paresthesias, facial droop, slurred speech, visual changes, shortness of breath, palpitations, or chest pain. No recent illness. Denies any urinary symptoms or diarrhea. Of note, pt did take an ambien last night which he does not typically do. On arrival, vital signs stable. CT of the cervical spine negative for fracture or malalignment but does show extensive degenerative changes. CT of the head shows a subtle asymmetric hypodensity in the region of the left superior cerebellar peduncle, perhaps representing age-indeterminate infarct. Attempt was made to obtain MRI of the brain but due to pacemaker was unable to be imaged. 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 There is noted to be a small scalp hematoma with laceration that did not require suturing and without active bleeding. He does report mild right sided headache. Hospital course: Hospital course uneventful. Patient was observed for possible TIA versus adverse medication reaction after taking Ambien. Patient had experienced a self-limited episode of retrograde amnesia and disorientation and sustained a mechanical fall. Head CT was negative for any acute intracranial bleeding or hemorrhage but did show possible evolving infarction in the cerebellar peduncle. Symptoms had fully resolved upon arrival and superficial laceration to the scalp to not require any suturing or stapling. No evidence of fractures. Echo showed low normal LV systolic function with EF 50-55%.. Unable to perform MRI given pacemaker presence. Neurology was consulted who felt symptoms were related to a toxic encephalopathy secondary to Ambien use rather than a TIA. There were no recurrence of symptoms during observation. Advised to avoid ambien and alcohol given risk of sedation and falls especially in combination with oxycodone and lyrica. DECREASE LYRICA TO TID AND CONTINUE WORKING TO MINIMIZE SEDATING MEDICATIONS THAT COULD PROMOTE FALLS. Can consider outpt referral to pain management for consideration of interventions for peripheral neuropathy. Continue eliquis at this time for anticoagulation and follow up with cardiology. 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 recommended follow up head CT in one month per neurology given interval development noted on head ct. He was evaluated by PT/OT recommending pt be discharged home with services. Strict compliance with walker advised. Status at Discharge Functional status at discharge: uses cane/walker Overall status at discharge: patient is progressing back to baseline Time Attestation Discharge coordination time: Greater than 30 minutes Quality: Safe Use of Opioids Does Pt have an Active Cancer Diagnosis on the Problem List?: No Quality: Stroke Does the patient have a stroke diagnosis?: No Physical Exam Vital Signs: Vital Signs: Last Vital Signs Temp 98.4 F 08/25/23 05:24 Pulse 81 08/25/23 11:02 Resp 16 08/25/23 11:02 BP 131/70 08/25/23 10:43 Pulse Ox 94 08/25/23 05:24 O2 Del Method Room Air 08/25/23 05:24 BMI result Body Mass Index 27.2 DS: Data Data Completed and Pending Completed studies during hospitalization [Text1]: Procedures Insertion of Infusion Device into Superior Vena Cava, Percutaneous Approach (12/29/20) Insertion of Pacemaker Lead into Right Atrium, Percutaneous Approach (12/29/20) Insertion of Pacemaker Lead into Right Ventricle, Percutaneous Approach (12/29/20) Insertion of Pacemaker, Dual Chamber into Chest Subcutaneous Tissue and Fascia, Open Approach (12/29/20) Irrigation of Genitourinary Tract using Irrigating Substance, Via Natural or Artificial Opening (01/04/23) Labs on day of discharge: Laboratory Results - last 24 hr 08/24/23 08/24/23 08/24/23 19:15 19:16 21:38 WBC 7.7 RBC 3.86 L Hgb 11.3 L Hct 34.6 L MCV 89.6 MCH 29.3 MCHC 32.7 RDW 18.5 H Plt Count 122 L D MPV 11.6 Immature Gran % (Auto) 1.0 H Neut % (Auto) 79.7 H Lymph % (Auto) 10.5 L [place] % (Auto) 7.4 Eos % (Auto) 1.3 Baso % (Auto) 0.1 Lymph # (Auto) 0.8 L [place] # (Auto) 0.6 Eos # (Auto) 0.1 Baso # (Auto) 0.0 Abs Immat Gran (auto) 0.08 H Absolute Neuts (auto) 6.1 Absolute Nucleated RBC 0.000 Nucleated RBC % (auto) 0.0 PT 14.7 H D INR 1.2 H APTT 30.0 Sodium 141 Potassium 4.8 Chloride 108 Carbon Dioxide 26 Anion Gap 12 BUN 23 H Creatinine 0.83 Estim Creat Clear Calc 60.8 Estimated GFR > 60 POC Glucose 298 H Random Glucose 121 H Calcium 8.6 Total Bilirubin 0.7 Direct Bilirubin 0.3 AST 46 H ALT 39 Alkaline Phosphatase 83 Troponin I High Sens 39.9 H D Total Protein 6.0 L Albumin 2.9 L Triglycerides 35 Cholesterol 90 LDL Cholesterol, Calc 41 HDL Cholesterol 42 Urine Color Urine Appearance Urine pH Ur Specific [place] Urine Protein Urine Glucose (UA) Urine Ketones Urine Blood Urine Nitrite Ur Leukocyte Esterase Urine RBC Urine WBC Ur Squamous Epith Cells Urine Bacteria Hyaline Casts Urine Yeast 08/25/23 08/25/23 08/25/23 04:05 05:49 07:18 WBC 5.8 RBC 3.62 L Hgb 10.4 L Hct 32.4 L MCV 89.5 MCH 28.7 MCHC 32.1 RDW 18.4 H Plt Count 111 L MPV 11.4 Immature Gran % (Auto) 1.0 H Neut % (Auto) 74.8 H Lymph % (Auto) 13.5 L [place] % (Auto) 8.4 Eos % (Auto) 2.1 Baso % (Auto) 0.2 Lymph # (Auto) 0.8 L [place] # (Auto) 0.5 Eos # (Auto) 0.1 Baso # (Auto) 0.0 Abs Immat Gran (auto) 0.06 H Absolute Neuts (auto) 4.4 Absolute Nucleated RBC 0.000 Nucleated RBC % (auto) 0.0 PT INR APTT Sodium 138 Potassium 4.2 Chloride 109 H Carbon Dioxide 24 Anion Gap 9 L BUN 19 H Creatinine 0.80 Estim Creat Clear Calc 63.1 Estimated GFR > 60 POC Glucose 146 H Random Glucose 202 H Calcium 8.4 Total Bilirubin Direct Bilirubin AST ALT Alkaline Phosphatase Troponin I High Sens Total Protein Albumin Triglycerides Cholesterol LDL Cholesterol, Calc HDL Cholesterol Urine Color Yellow Urine Appearance Clear Urine pH 7.0 Ur Specific [place] >= 1.030 H Urine Protein Negative Urine Glucose (UA) >=1000 H Urine Ketones Negative Urine Blood Small (1+) H Urine Nitrite Negative Ur Leukocyte Esterase Small (1+) H Urine RBC 6-10 H Urine WBC 6-10 Ur Squamous Epith Cells 0-2 Urine Bacteria None Seen Hyaline Casts 0-2 Urine Yeast Present 08/25/23 09:32 WBC RBC Hgb Hct MCV MCH MCHC RDW Plt Count MPV Immature Gran % (Auto) Neut % (Auto) Lymph % (Auto) [place] % (Auto) Eos % (Auto) Baso % (Auto) Lymph # (Auto) [place] # (Auto) Eos # (Auto) Baso # (Auto) Abs Immat Gran (auto) Absolute Neuts (auto) Absolute Nucleated RBC Nucleated RBC % (auto) PT INR APTT Sodium Potassium Chloride Carbon Dioxide Anion Gap BUN Creatinine Estim Creat Clear Calc Estimated GFR POC Glucose Random Glucose Calcium Total Bilirubin Direct Bilirubin AST ALT Alkaline Phosphatase Troponin I High Sens 38.7 H Total Protein Albumin Triglycerides Cholesterol LDL Cholesterol, Calc HDL Cholesterol Urine Color Urine Appearance Urine pH Ur Specific [place] Urine Protein Urine Glucose (UA) Urine Ketones Urine Blood Urine Nitrite Ur Leukocyte Esterase Urine RBC Urine WBC Ur Squamous Epith Cells Urine Bacteria Hyaline Casts Urine Yeast Discharge Plan Discharge Anticipated Discharge Date/Time: 08/26/23 10:44 Patient Disposition: Home Health Service Discharge Diagnosis: Fall, toxic encephalopathy, adverse drug reaction Referrals: [facility] [Outside] - 1 Week Jewel Rebolledo MD [Primary Care Provider] - 1 Week Discharge Medications: Continued isosorbide mononitrate 30 mg tablet extended release 24 hr 30 mg PO DAILY Qty: 30 6RF Multaq 400 mg tablet 400 mg PO BID Qty: 180 6RF Combivent Respimat 20-100 mcg/actuation mist 1 puff inhalation TID multivitamin Tablet 1 tab PO DAILY insulin aspart U-100 [Novolog U-100 Insulin aspart] 100 unit/mL Solution 1 sliding scale dose SUBCUT USEASDIRECTD insulin degludec [Tresiba FlexTouch U-100] 100 unit/mL (3 mL) insulin pen 70 unit subcut DAILY [place]-3 Fish Oil 300-1,000 mg Capsule 1 cap PO BID magnesium 250 mg Tablet 250 mg PO DAILY cholecalciferol (vitamin D3) [Vitamin D3] 125 mcg (5,000 unit) Tablet 125 mcg PO DAILY zinc 220 mg PO DAILY furosemide 20 mg tablet 20 mg PO DAILY Qty: 90 1RF clotrimazole 1 % cream 1 appl topical BID 14 Days Qty: 45 0RF vitamin B complex Tablet 1 tab PO DAILY budesonide-formoterol [Symbicort] 80-4.5 mcg/actuation HFA aerosol inhaler 2 puff inhalation BID ciprofloxacin HCl 500 mg tablet 500 mg PO Q12H Rx Instructions: 7 DAYS STARTING ON 08/20 ammonium lactate 12 % cream 1 appl topical BID oxycodone 10 mg tablet 10 mg PO Q4H PRN (Reason: Severe Pain (Scale Score 7-10)) atorvastatin 40 mg tablet 40 mg PO BEDTIME losartan 25 mg tablet 25 mg PO DAILY Eliquis 5 mg tablet 5 mg PO BID Qty: 60 0RF Changed pregabalin 150 mg capsule 150 mg PO TID Qty: 90 0RF Discharge Orders: Discharge Order (Routine); Ordered 08/26/23 Ordered By: Tonia Herndon Diet: Advance to usual diet Activity on Discharge: As tolerated Stand Alone Forms: Patient Portal Discharge page Care Plan Goals: Reduce fall risk Health Concerns: Adverse medication reaction Toxic encephalopathy Fall Plan of Treatment: Altered mental status/disorientation/Fall -Less likely related to a TIA/Stroke. More likely secondary to the ambien that had been taken the night prior -You are on a number of sedating medications- including oxycodone, lyrica, ambien -Ambien can be particularly disorienting especially in older adults. Do not take this medication. -Decrease lyrica to 3 times daily. Use oxycodone and lyrica with great caution. Further medication adjustments per PCP. -Also recommend following up with pain management to discuss alternatives to pain management to reduce fall risk -Do not drink alcohol as this will can further exacerbation sedation/disorientation related to medications and therefore increase falls -Given eliquis use, all efforts to prevent falls should be taken. Use walker at all times. -Follow up with Dr. Rebolledo Assessment: see above. see discharge summary
[2023-08-25 12:19] LABS: Glucose, Whole Blood 241 mg/dL (60-115)
[2023-08-25] MEDS: Insulin Lispro 100 UNIT/ML 3 ML VIAL SUBCUT ×2 (13:42→20:06)
--- NOTE | 2023-08-25 14:29 | PC.NURSE ---
pt stating that he feels off and doesn't want to be discharged. per pt, he hasn't slept in 2 days, is having some dizziness at times, and doesn't feel strong enough to walk on his own at home. DONTRELL Randall notified and aware. pt appears well, speaking in full complete sentences. rr even/unlabored.
[2023-08-25 15:12] VITALS: PULSE 71; RESP 16; O2SAT 98
--- NOTE | 2023-08-25 15:35 | HO.PM.IMPN ---
Subjective Subjective Date of Service: 08/25/23 Interval History: Seen in follow up for disorientation, fall, ?TIA Interval history: Reports neuropathic pain LLE, missed doses of lyrica yesterday. Feels unsteady on feet as a result Review of Systems Review of Systems: Yes all other systems are reviewed and are negative Physical Exam Vital Signs: Vital Signs: Last Vital Signs Temp 98.4 F 08/25/23 05:24 Pulse 71 08/25/23 15:12 Resp 16 08/25/23 15:12 BP 131/70 08/25/23 10:43 Pulse Ox 94 08/25/23 05:24 O2 Del Method Room Air 08/25/23 05:24 BMI result Body Mass Index 27.2 Constitutional - Awake and Alert, No apparent distress Eyes - PERRLA, EOMI Cardiovascular - S1S2, RRR, No edema Respiratory - Normal lung expansion, Normal respiratory effort, No respiratory distress, CTA bilaterally Gastrointestinal - NT / ND; +BS; No rebound or guarding Extremities - no calf tenderness bilaterally, no swelling Skin - Warm/Dry Neurological - Alert & oriented x3, CN II-XII in tact, 5/5 strength BUE and BLE Objective Data Active Medications Acetaminophen (Acetaminophen 325 Mg Tablet) 650 mg PO Q6H PRN PRN Reason: Pain, Mild (Pain Scale 1-3) Last Admin: 08/25/23 10:25 Dose: 650 mg Documented By: DEBBIE Albuterol/Ipratropium (Albuterol/Iprat 2.5/0.5mg 3 Ml Ampul.Neb) 3 ml INHALE TID@0900,1500,2100 [facility] Last Admin: 08/25/23 15:10 Dose: 3 ml Documented By: KATHERIN Apixaban (Apixaban 5 Mg Tablet) 5 mg PO BID [facility] Last Admin: 08/25/23 10:25 Dose: 5 mg Documented By: DEBBIE Aspirin (Aspirin Enteric Coated 81 Mg Tablet.) 81 mg PO DAILY [facility] Last Admin: 08/25/23 10:34 Dose: Not Given Documented By: DEBBIE Non-Admin Reason: See Note Atorvastatin Calcium (Atorvastatin Calcium 80 Mg Tablet) 80 mg PO BEDTIME [facility] Last Admin: 08/24/23 21:31 Dose: 80 mg Documented By: NIURKA Atorvastatin Calcium (Atorvastatin Calcium 40 Mg Tablet) 40 mg PO BEDTIME [facility] Clotrimazole (Clotrimazole 1 % Cream 15 Gm Tube) 1 appl TOPICAL BID [facility]; Protocol Last Admin: 08/25/23 13:34 Dose: Not Given Documented By: DEBBIE Non-Admin Reason: Med Not Available Dextrose (Dextrose 50 % 25 Gm/50 Ml Syringe) 25 gm IVPUSH Q15M PRN; Protocol PRN Reason: per Hypoglycemia Standing Ord. Dronedarone (Dronedarone Hcl 400 Mg Tablet) 400 mg PO BID [facility] Last Admin: 08/25/23 10:42 Dose: 400 mg Documented By: DEBBIE Fluticasone/Vilanterol (Fluticasone/Vilanterol 100/25 Blst.W.Dev) 1 puff INHALE DAILY@0900 [facility] Last Admin: 08/25/23 11:01 Dose: 1 puff Documented By: HOLLY Furosemide (Furosemide 20 Mg Tablet) 20 mg PO DAILY [facility]; Protocol Last Admin: 08/25/23 10:25 Dose: 20 mg Documented By: DEBBIE Gabapentin (Gabapentin 300 Mg Capsule) 300 mg PO BEDTIME [facility] Last Admin: 08/24/23 21:31 Dose: 300 mg Documented By: NIURKA Glucose (Glucose Gel 15 Gm Gel..Gram.) 15 gm PO Q15M PRN; Protocol PRN Reason: per Hypoglycemia Standing Ord. Insulin Glargine (Insulin Glargine,Hum.Rec.Anlog 100 Unit/Ml 10 Ml Vial) 35 unit SUBCUT DAILY [facility] Last Admin: 08/25/23 10:29 Dose: 35 unit Documented By: DEBBIE Insulin Human Lispro (Insulin Lispro 100 Unit/Ml 3 Ml Vial) 0 unit SUBCUT QIDACHS [facility]; Protocol Last Admin: 08/25/23 13:42 Dose: 4 unit Documented By: DEBBIE Isosorbide Mononitrate (Isosorbide Mononitrate 30 Mg Tab.Er.24h) 30 mg PO DAILY [facility]; Protocol Last Admin: 08/25/23 10:24 Dose: 30 mg Documented By: DEBBIE Lactic Acid (Ammonium Lactate 12 % Cream 140 Gm Tube) 1 appl TOPICAL BID [facility]; Protocol Losartan Potassium (Losartan Potassium 25 Mg Tablet) 25 mg PO DAILY [facility]; Protocol Last Admin: 08/25/23 10:25 Dose: 25 mg Documented By: DEBBIE Magnesium Oxide (Magnesium Oxide 400 Mg Tablet) 200 mg PO DAILY [facility] Multivitamins/Vitamin C (Multivitamin Tablet) 1 tab PO DAILY [facility] Last Admin: 08/25/23 10:23 Dose: 1 tab Documented By: DEBBIE Ondansetron HCl (Ondansetron Hcl 4 Mg/2 Ml Vial) 4 mg IVPUSH Q8H PRN PRN Reason: Nausea and Vomiting Oxycodone HCl (Oxycodone Hcl Immed Release 5 Mg Tablet) 10 mg PO Q4H PRN PRN Reason: Severe Pain (Scale Score 7-10) Last Admin: 08/25/23 10:41 Dose: 10 mg Documented By: DEBBIE Pregabalin (Pregabalin 150 Mg Capsule) 150 mg PO QID [facility] Last Admin: 08/25/23 13:43 Dose: 150 mg Documented By: DEBBIE Senna (Sennosides 8.6 Mg Tablet) 17.2 mg PO BEDTIME PRN PRN Reason: Constipation Sodium Chloride (0.9 % Sodium Chloride Flush 3 Ml Syringe) 3 ml IVFLUSH QSHIFT [facility] Last Admin: 08/25/23 15:29 Dose: Not Given Documented By: DEBBIE Non-Admin Reason: Med Not Available Vitamin D (Cholecalciferol (Vitamin D3) 25 Mcg Tablet) 125 mcg PO DAILY [facility] Last Admin: 08/25/23 10:23 Dose: 125 mcg Documented By: DEBBIE Zinc Sulfate (Zinc Sulfate 220 Mg Capsule) 220 mg PO DAILY [facility] Last Admin: 08/25/23 10:42 Dose: 220 mg Documented By: DEBBIE Labs 08/25/23 05:49 08/25/23 05:49 Labs: Laboratory Results - last 24 hr 08/24/23 08/24/23 08/24/23 19:15 19:16 21:38 MCV 89.6 MCH 29.3 MCHC 32.7 RDW 18.5 H Plt Count 122 L D MPV 11.6 Immature Gran % (Auto) 1.0 H Neut % (Auto) 79.7 H Lymph % (Auto) 10.5 L [place] % (Auto) 7.4 Eos % (Auto) 1.3 Baso % (Auto) 0.1 Lymph # (Auto) 0.8 L [place] # (Auto) 0.6 Eos # (Auto) 0.1 Baso # (Auto) 0.0 Abs Immat Gran (auto) 0.08 H Absolute Neuts (auto) 6.1 Absolute Nucleated RBC 0.000 Nucleated RBC % (auto) 0.0 PT 14.7 H D INR 1.2 H APTT 30.0 Anion Gap 12 Estim Creat Clear Calc 60.8 Estimated GFR > 60 POC Glucose 298 H Random Glucose 121 H Calcium 8.6 Total Bilirubin 0.7 Direct Bilirubin 0.3 AST 46 H ALT 39 Alkaline Phosphatase 83 Total Protein 6.0 L Albumin 2.9 L Triglycerides 35 Cholesterol 90 LDL Cholesterol, Calc 41 HDL Cholesterol 42 Urine Color Urine Appearance Urine pH Ur Specific [place] Urine Protein Urine Glucose (UA) Urine Ketones Urine Blood Urine Nitrite Ur Leukocyte Esterase Urine RBC Urine WBC Ur Squamous Epith Cells Urine Bacteria Hyaline Casts Urine Yeast 08/25/23 08/25/23 08/25/23 04:05 05:49 07:18 MCV 89.5 MCH 28.7 MCHC 32.1 RDW 18.4 H Plt Count 111 L MPV 11.4 Immature Gran % (Auto) 1.0 H Neut % (Auto) 74.8 H Lymph % (Auto) 13.5 L [place] % (Auto) 8.4 Eos % (Auto) 2.1 Baso % (Auto) 0.2 Lymph # (Auto) 0.8 L [place] # (Auto) 0.5 Eos # (Auto) 0.1 Baso # (Auto) 0.0 Abs Immat Gran (auto) 0.06 H Absolute Neuts (auto) 4.4 Absolute Nucleated RBC 0.000 Nucleated RBC % (auto) 0.0 PT INR APTT Anion Gap 9 L Estim Creat Clear Calc 63.1 Estimated GFR > 60 POC Glucose 146 H Random Glucose 202 H Calcium 8.4 Total Bilirubin Direct Bilirubin AST ALT Alkaline Phosphatase Total Protein Albumin Triglycerides Cholesterol LDL Cholesterol, Calc HDL Cholesterol Urine Color Yellow Urine Appearance Clear Urine pH 7.0 Ur Specific [place] >= 1.030 H Urine Protein Negative Urine Glucose (UA) >=1000 H Urine Ketones Negative Urine Blood Small (1+) H Urine Nitrite Negative Ur Leukocyte Esterase Small (1+) H Urine RBC 6-10 H Urine WBC 6-10 Ur Squamous Epith Cells 0-2 Urine Bacteria None Seen Hyaline Casts 0-2 Urine Yeast Present 08/25/23 12:12 MCV MCH MCHC RDW Plt Count MPV Immature Gran % (Auto) Neut % (Auto) Lymph % (Auto) [place] % (Auto) Eos % (Auto) Baso % (Auto) Lymph # (Auto) [place] # (Auto) Eos # (Auto) Baso # (Auto) Abs Immat Gran (auto) Absolute Neuts (auto) Absolute Nucleated RBC Nucleated RBC % (auto) PT INR APTT Anion Gap Estim Creat Clear Calc Estimated GFR POC Glucose 241 H Random Glucose Calcium Total Bilirubin Direct Bilirubin AST ALT Alkaline Phosphatase Total Protein Albumin Triglycerides Cholesterol LDL Cholesterol, Calc HDL Cholesterol Urine Color Urine Appearance Urine pH Ur Specific [place] Urine Protein Urine Glucose (UA) Urine Ketones Urine Blood Urine Nitrite Ur Leukocyte Esterase Urine RBC Urine WBC Ur Squamous Epith Cells Urine Bacteria Hyaline Casts Urine Yeast Assessment and Plan (1) Adverse drug reaction: Status: Acute (2) Disorientation: Status: Acute (3) Fall: Status: Acute Plan 87-year-old male with history of paroxysmal atrial fibrillation anticoagulated with Eliquis s/p pacemaker, insulin-dependent type 2 diabetes, heart failure preserved ejection fraction, coronary artery disease H/O STEMI, history of prostate cancer, COPD, hypertension, hyperlipidemia to be observed for possible TIA #Disorientation.confusion -pt with retrograde anemia, unsteady gait, confusion. Resolved on arrival -Head CT head with subtle asymmetric hypodensity in the region of the left superior cerebellar peduncle angle possibly representing age-indeterminate infarct -CTA head/neck negative for any hemodynamically significant stenoses or LVO -no MRI given pacer maker -More likely adverse medication reaction to ambien rather than TIA -echo without thrombus, EF 50-55% -Lipids at goal, continue atorvastatin 40mg daily -Unlikely TIA, dc asa -neurology input appreciated #Fall -mechanical, possibly related to above -PT eval recommending home with services -head CT negative for any intracranial bleed -cold pack on scalp hematoma # insulin-dependent type 2 diabetes -uncontrolled last hemoglobin A1c of 8.2%, goal less than 8.0% -dose adjust basal insulin -Humalog on sliding scale -diabetic diet -POC glucose #Diabetic polyneuropathy -resume lyrica (was initially thought to be discontinued so was not ordered on admission and pt missed several doses) -oxycodone prn from home #Paroxysmal atrial fibrillation -rate controlled -continue Eliquis for anticoagulation, metoprolol, and Multaq # CAD -no anginal chest pain -continue home meds # hypertension -blood pressure reasonably controlled -continue home meds #HFpEF -as above -continue lasix # COPD -no acute exacerbation -continue maintenance inhalers, albuterol p.r.n. 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
--- NOTE | 2023-08-25 18:06 | PC.NURSE ---
pt found sleeping in hospital bed. good since pt has not slept in days per statement. pt medicated per oct. rr even/unlabored. awaiting bed assignment.
--- NOTE | 2023-08-25 19:27 | PC.NURSE ---
this rn assumed care of pt. pt set up for dinner at this time. insulin coverage late due to dinner being delivered late. no acute distress noted.
[2023-08-25 20:03] LABS: Glucose, Whole Blood 269 mg/dL (60-115)
--- NOTE | 2023-08-25 20:10 | PC.NURSE ---
this rn assisted pt with brief change at this time .
[2023-08-25] MEDS: Gabapentin 300 MG CAPSULE PO (22:22)
[2023-08-25] MEDS: Atorvastatin Calcium 40 MG TABLET PO (22:22)
--- NOTE | 2023-08-25 22:55 | PC.NURSE ---
pt given insulin coverage late due to late dinner, provider aware. dose held. pharmacy aware of need for medciations.
[2023-08-25] MEDS: Ammonium Lactate 12 % Cream 140 GM TUBE 1 APPL TOPICAL (23:00)
[2023-08-25] MEDS: Clotrimazole 1 % Cream 15 GM TUBE 1 APPL TOPICAL (23:00)
--- NOTE | 2023-08-26 00:04 | PC.NURSE ---
pt assisted with changing brief at this time. bed change complete. pt resting comfortably in hospital bed at this time.
[2023-08-26] MEDS: 0.9 % Sodium Chloride Flush 3 ML SYRINGE IVFLUSH ×2 (01:56→09:41)
[2023-08-26 03:32] VITALS: BP 119/64; PULSE 71; RESP 16; O2SAT 95
[2023-08-26 07:19] LABS: Glucose, Whole Blood 151 mg/dL (60-115)
[2023-08-26 08:00] VITALS: BP 109/55; PULSE 70; RESP 20; TEMP 36.4; O2SAT 99
[2023-08-26 08:10] LABS: Glucose, Whole Blood 284 mg/dL (60-115)
[2023-08-26 08:14] VITALS: PULSE 70; RESP 16; O2SAT 97
[2023-08-26] MEDS: Albuterol/Iprat 2.5/0.5MG 3 ML AMPUL.NEB INHALE (08:14)
[2023-08-26] MEDS: Fluticasone/Vilanterol 100/25 BLST.W.DEV 1 PUFF INHALE (08:14)
[2023-08-26] MEDS: Insulin Glargine,Hum.rec.anlog 100 UNIT/ML 10 ML VIAL 35 UNIT SUBCUT (09:37)
[2023-08-26] MEDS: Insulin Lispro 100 UNIT/ML 3 ML VIAL SUBCUT ×2 (09:37→12:16)
[2023-08-26] MEDS: Cholecalciferol (Vitamin D3) 25 MCG TABLET 125 MCG PO (09:38)
[2023-08-26] MEDS: Isosorbide Mononitrate 30 MG TAB.ER.24H PO (09:38)
[2023-08-26] MEDS: Dronedarone HCl 400 MG TABLET PO (09:38)
[2023-08-26] MEDS: Magnesium Oxide 400 MG TABLET 200 MG PO (09:38)
[2023-08-26] MEDS: Zinc Sulfate 220 MG CAPSULE PO (09:39)
[2023-08-26] MEDS: Losartan Potassium 25 MG TABLET PO (09:39)
[2023-08-26] MEDS: Pregabalin 150 MG CAPSULE PO (09:39)
[2023-08-26] MEDS: Furosemide 20 MG TABLET PO (09:39)
[2023-08-26] MEDS: Apixaban 5 MG TABLET PO (09:39)
[2023-08-26 10:25] VITALS: PULSE 70
[2023-08-26 12:00] VITALS: BP 136/68; PULSE 72; RESP 20; TEMP 36.4; O2SAT 97
--- NOTE | 2023-08-26 12:02 | PM.NEUROCN ---
History of Present Illness Data of Consult Service Date: 08/26/23 Primary Care Provider: Jewel Rebolledo MD HPI Reason for consult: Falling 87-year-old male with history of paroxysmal atrial fibrillation anticoagulated with Eliquis s/p pacemaker, insulin-dependent type 2 diabetes, heart failure preserved ejection fraction, coronary artery disease H/O STEMI, history of prostate cancer, COPD, hypertension, hyperlipidemia to be observed for possible TIA. He said that he took a dose of Ambien the night before which she has not taken. He woke up and felt dizzy and lightheaded and at 1 point lost his balance and fell down with his walker on him. There was no witnessing of any seizure. Review of Systems Review of Systems: Chronic insomnia and unsteadiness [facility] Past Medical History Medical History Urinary tract infection due to Pseudomonas aeruginosa Recurrent UTI History of prostate cancer Acute retention of urine Persistent atrial fibrillation COVID-19 vaccine series completed History of cardioversion Hx of Lyme disease Tubular adenoma of colon History of ST elevation myocardial infarction (STEMI) (HFpEF) heart failure with preserved ejection fraction Cardiac pacemaker in situ (~12/2020) Hepatorenal syndrome Symptomatic bradycardia Ventricular bigeminy Thrombocytopenia PVC (premature ventricular contraction) CHF exacerbation Bifascicular block Pancytopenia Prostate CA Myocardial infarct, old CAD (coronary artery disease) HLD (hyperlipidemia) Diabetes HTN (hypertension) Surgical History Surgical History History of colonoscopy History of cervical spinal surgery History of radical prostatectomy History of left inguinal hernia repair History of total right knee replacement (TKR) History of lumbar discectomy History of cardiac pacemaker (~12/2020) Social History Social History Household Members: Spouse Household Members Other:: 1 Housing: House Are you a primary daycare assistant to a significant other at home: No Do you presently have visiting nurse or other home services: Yes Alcohol intake: current Alcohol intake frequency: holidays/special occasions only Alcohol type: wine Comment: pt refused bed/chair alarm Patient Tobacco Use Status: Former Tobacco user Quit Date: 60 years ago per patient Tobacco use type: Cigarette Years Smoked: 10 Advance Directives Date on File: 05/14/23 service: Yes Current occupational status: retired Meds Allergies Allergy/AdvReac Type Severity Reaction Status Date / Time No Known Allergies Allergy Mild N/A Verified 05/30/23 08:39 Active Medications: Current Medications Acetaminophen (Acetaminophen 325 Mg Tablet) 650 mg PO Q6H PRN PRN Reason: Pain, Mild (Pain Scale 1-3) Last Admin: 08/25/23 22:20 Dose: 650 mg Albuterol/Ipratropium (Albuterol/Iprat 2.5/0.5mg 3 Ml Ampul.Neb) 3 ml INHALE TID@0900,1500,2100 [facility] Last Admin: 08/26/23 08:14 Dose: 3 ml Apixaban (Apixaban 5 Mg Tablet) 5 mg PO BID [facility] Last Admin: 08/26/23 09:39 Dose: 5 mg Atorvastatin Calcium (Atorvastatin Calcium 40 Mg Tablet) 40 mg PO BEDTIME [facility] Last Admin: 08/25/23 22:22 Dose: 40 mg Clotrimazole (Clotrimazole 1 % Cream 15 Gm Tube) 1 appl TOPICAL BID [facility]; Protocol Last Admin: 08/26/23 09:43 Dose: Not Given Dextrose (Dextrose 50 % 25 Gm/50 Ml Syringe) 25 gm IVPUSH Q15M PRN; Protocol PRN Reason: per Hypoglycemia Standing Ord. Dronedarone (Dronedarone Hcl 400 Mg Tablet) 400 mg PO BID [facility] Last Admin: 08/26/23 09:38 Dose: 400 mg Fluticasone/Vilanterol (Fluticasone/Vilanterol 100/25 Blst.W.Dev) 1 puff INHALE DAILY@0900 [facility] Last Admin: 08/26/23 08:14 Dose: 1 puff Furosemide (Furosemide 20 Mg Tablet) 20 mg PO DAILY [facility]; Protocol Last Admin: 08/26/23 09:39 Dose: 20 mg Gabapentin (Gabapentin 300 Mg Capsule) 300 mg PO BEDTIME [facility] Last Admin: 08/25/23 22:22 Dose: 300 mg Glucose (Glucose Gel 15 Gm Gel..Gram.) 15 gm PO Q15M PRN; Protocol PRN Reason: per Hypoglycemia Standing Ord. Insulin Glargine (Insulin Glargine,Hum.Rec.Anlog 100 Unit/Ml 10 Ml Vial) 35 unit SUBCUT DAILY [facility] Last Admin: 08/26/23 09:37 Dose: 35 unit Insulin Human Lispro (Insulin Lispro 100 Unit/Ml 3 Ml Vial) 0 unit SUBCUT QIDACHS [facility]; Protocol Last Admin: 08/26/23 09:37 Dose: 6 unit Isosorbide Mononitrate (Isosorbide Mononitrate 30 Mg Tab.Er.24h) 30 mg PO DAILY [facility]; Protocol Last Admin: 08/26/23 09:38 Dose: 30 mg Lactic Acid (Ammonium Lactate 12 % Cream 140 Gm Tube) 1 appl TOPICAL BID [facility]; Protocol Last Admin: 08/26/23 09:43 Dose: Not Given Losartan Potassium (Losartan Potassium 25 Mg Tablet) 25 mg PO DAILY [facility]; Protocol Last Admin: 08/26/23 09:39 Dose: 25 mg Magnesium Oxide (Magnesium Oxide 400 Mg Tablet) 200 mg PO DAILY [facility] Last Admin: 08/26/23 09:38 Dose: 200 mg Multivitamins/Vitamin C (Multivitamin Tablet) 1 tab PO DAILY [facility] Last Admin: 08/26/23 09:38 Dose: 1 tab Ondansetron HCl (Ondansetron Hcl 4 Mg/2 Ml Vial) 4 mg IVPUSH Q8H PRN PRN Reason: Nausea and Vomiting Oxycodone HCl (Oxycodone Hcl Immed Release 5 Mg Tablet) 10 mg PO Q4H PRN PRN Reason: Severe Pain (Scale Score 7-10) Last Admin: 08/25/23 22:21 Dose: 10 mg Pregabalin (Pregabalin 150 Mg Capsule) 150 mg PO QID [facility] Last Admin: 08/26/23 09:39 Dose: 150 mg Senna (Sennosides 8.6 Mg Tablet) 17.2 mg PO BEDTIME PRN PRN Reason: Constipation Sodium Chloride (0.9 % Sodium Chloride Flush 3 Ml Syringe) 3 ml IVFLUSH QSHIFT [facility] Last Admin: 08/26/23 09:41 Dose: 3 ml Vitamin D (Cholecalciferol (Vitamin D3) 25 Mcg Tablet) 125 mcg PO DAILY [facility] Last Admin: 08/26/23 09:38 Dose: 125 mcg Zinc Sulfate (Zinc Sulfate 220 Mg Capsule) 220 mg PO DAILY [facility] Last Admin: 08/26/23 09:39 Dose: 220 mg Home Medications Medication Instructions Recorded Confirmed Last Taken Type insulin aspart U-100 100 unit/mL 1 sliding scale dose subcut 12/14/20 08/24/23 05/30/23 History subcutaneous solution (Novolog USEASDIRECTD U-100 Insulin aspart) ipratropium 20 mcg-albuterol 100 1 puff inhalation TID 12/14/20 08/24/23 05/30/23 History mcg/actuation mist for inhalation (Combivent Respimat) multivitamin 1 tab PO DAILY 12/14/20 08/24/23 05/30/23 History atorvastatin 40 mg tablet 40 mg PO BEDTIME 06/13/21 08/24/23 05/29/23 History insulin degludec 100 unit/mL (3 70 unit subcut DAILY 10/20/22 08/24/23 05/30/23 History mL) subcutaneous pen (Tresiba FlexTouch U-100 insulin) budesonide-formoterol HFA 80 2 puff inhalation BID 01/31/23 08/24/23 05/30/23 History mcg-4.5 mcg/actuation aerosol inhaler (Symbicort) vitamin B complex 1 tab PO DAILY 01/31/23 08/24/23 05/30/23 History losartan 25 mg tablet 25 mg PO DAILY 02/09/23 08/24/23 05/30/23 History cholecalciferol (vitamin D3) 125 125 mcg PO DAILY 05/30/23 08/24/23 05/30/23 History mcg (5,000 unit) tablet (Vitamin D3) magnesium 250 mg tablet 250 mg PO DAILY 05/30/23 08/24/23 05/30/23 History omega-3s 300 sx-csx-dxb-other 1 cap PO BID 05/30/23 08/24/23 05/30/23 History [id number] oil 1,000 mg capsule ([place]-3 Fish Oil) zinc 220 mg PO DAILY 05/30/23 08/24/23 05/30/23 History ammonium lactate 12 % topical cream 1 appl topical BID 08/24/23 08/24/23 Unknown History ciprofloxacin HCl 500 mg tablet 500 mg PO Q12H 08/24/23 08/24/23 Unknown History oxycodone 10 mg tablet 10 mg PO Q4H PRN Severe Pain 08/25/23 08/25/23 Unknown History (Scale Score 7-10) pregabalin 150 mg capsule 150 mg PO QID 08/25/23 08/25/23 Unknown History Physical Exam Vital Signs: Vital Signs: Last Vital Signs Temp 97.6 F 08/26/23 08:00 Pulse 70 08/26/23 10:25 Resp 16 08/26/23 08:14 BP 109/55 L 08/26/23 08:00 Pulse Ox 99 08/26/23 08:00 O2 Del Method Room Air 08/26/23 08:00 BMI result Body Mass Index 27.2 Neuro: Other: He is alert and awake with normal spontaneity of speech fluency comprehension and affect. Face is symmetrical. Visual arenas are full. There is no significant tremor. Deep Results Labs 08/25/23 05:49 08/25/23 05:49 Labs: Head CT and CTA were reviewed. They revealed bilateral cortical frontoparietal hygromas, and mild cerebral and cerebellar atrophy. Microbiology Microbiology Results: Microbiology 08/25/23 Unknown Urine clean catch - Urine purvis top Urine Culture - Preliminary Culture in progress. Assessment and Plan (1) Encephalopathy: Status: Acute Multifactorial encephalopathy with acute component of Ambien that he took the night before. 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 There is also underlying cerebral and cerebellar atrophy and signs of neuropathy. He should not be prescribed any medicine that could result in further loss of balance. This would include Ambien type of medicines and pregabalin during daytime. Regular use a walker is recommended. Procedures Date of Service Date of Service: 08/26/23
--- NOTE | 2023-08-26 12:21 | MHC.CM.PN ---
Pt is medically cleared for D/C home with resumption of [facility] services. Pts family to transport him home.
== END 2023-08-26 15:12 | disposition home health service (06) ==
LOC: HO.ED 18:10 → HO.EDOVER 18:52 → HO.IMC 08-26 05:48
PROVIDERS: Admitting Provider Physician Assistant; Emergency Provider Emergency Medicine; PCP Internal Medicine; Visit Provider Physician Assistant
DX: G92.8 Other toxic encephalopathy (principal); T42.6X5A Adverse effect of other antiepileptic and sedative-hypnotic drugs, initial encounter; S09.90XA Unspecified injury of head, initial encounter; W10.8XXA Fall (on) (from) other stairs and steps, initial encounter; S00.01XA Abrasion of scalp, initial encounter; S00.81XA Abrasion of other part of head, initial encounter; Y93.89 Activity, other specified; Y92.9 Unspecified place or not applicable; Y99.9 Unspecified external cause status; I48.0 Paroxysmal atrial fibrillation; J44.9 Chronic obstructive pulmonary disease, unspecified; I50.30 Unspecified diastolic (congestive) heart failure; I11.0 Hypertensive heart disease with heart failure; I25.10 Atherosclerotic heart disease of native coronary artery without angina pectoris; E11.42 Type 2 diabetes mellitus with diabetic polyneuropathy; R41.0 Disorientation, unspecified; R26.81 Unsteadiness on feet; I87.2 Venous insufficiency (chronic) (peripheral); Z95.0 Presence of cardiac pacemaker; Z79.4 Long term (current) use of insulin; Z79.01 Long term (current) use of anticoagulants; Z79.899 Other long term (current) drug therapy; Z99.89 Dependence on other enabling machines and devices; Z85.46 Personal history of malignant neoplasm of prostate
CPT/HCPCS: 36415; 70450; 70496; 70498; 72125; 80048; 80061; 80076; 81001; 82947; 84484; 85025; 85610; 85730; 87086; 93005; 93306; 94640; 97116; 97161; 97166; 97535; 99222; 99285; Q9957; Q9967

== ENCOUNTER 2023-08-24 18:40 | Outpatient (BNV) | payer MEDICARE, SELFPAY | END 2023-08-24 19:04 | PROVIDERS: Admitting Provider Physician Assistant; Emergency Provider Emergency Medicine; PCP Internal Medicine; Visit Provider Internal Medicine Cardiovascular Disease | DX: R94.31 Abnormal electrocardiogram [ECG] [EKG] (principal) | CPT/HCPCS: 93010 ==

== ENCOUNTER 2023-08-24 18:40 | Outpatient (BNV) | payer MEDICARE, SELFPAY | END 2023-08-25 07:00 | PROVIDERS: Admitting Provider Physician Assistant; Emergency Provider Emergency Medicine; PCP Internal Medicine; Visit Provider Internal Medicine Cardiovascular Disease | DX: I34.0 Nonrheumatic mitral (valve) insufficiency (principal); I35.8 Other nonrheumatic aortic valve disorders | CPT/HCPCS: 93306 ==

== ENCOUNTER → 2023-08-24 18:40 | Outpatient (BNV) | payer MEDICARE, SELFPAY | PROVIDERS: Admitting Provider Physician Assistant; Emergency Provider Emergency Medicine; PCP Internal Medicine; Visit Provider Physician Assistant | DX: G45.9 Transient cerebral ischemic attack, unspecified (principal); T50.905A Adverse effect of unspecified drugs, medicaments and biological substances, initial encounter; R41.0 Disorientation, unspecified; W19.XXXA Unspecified fall, initial encounter | CPT/HCPCS: 99223; 99232; 99239 ==

== ENCOUNTER 2023-09-25 09:53 | Outpatient (AMB) | payer MEDICARE, SELFPAY ==
--- NOTE | 2023-09-25 10:11 | A.OFFVIS_ITS ---
Intake Intake Visit Reasons: follow up(Urodynamic Follow Up) Intake Note: Patient presents today for a follow-up Meds- None Allergies to Antibiotic- No Known Allergies Blood Thinner- Eliquis Patient was unable to provide an urine sample Post Void Residual: 47 Quoter Required: No Accompanied by: Significant Other Allergies No Known Allergies Allergy (Mild, Verified 09/25/23 10:17) N/A HPI HPI Comments History of Present Illness Details Jewel is a pleasant male. He is a patient of Dr. Rebolledo. 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 Had been managed with indwelling Mena however has had complications with urinary tract infection and hematuria secondary to radiation cystitis 06/15 urodynamics. Summary of findings include reduced bladder capacity 150 cc, incompetence sphincter, reduced bladder compliance Different treatment options have been discussed including - urinary diversion - use of diapers - possible use of soft catheter with kavin mo prophylaxis - penile clamp emptying every 2 hours In the setting Botox, InterStim, anticholinergics likely to be unhelpful given the lack of bladder compliance secondary to damage from radiation Prescriptions for methenamine with vitamin-C +diapers were provided [facility] Medical History Urinary tract infection due to Pseudomonas aeruginosa Recurrent UTI History of prostate cancer Acute retention of urine Persistent atrial fibrillation COVID-19 vaccine series completed History of cardioversion Hx of Lyme disease Tubular adenoma of colon History of ST elevation myocardial infarction (STEMI) (HFpEF) heart failure with preserved ejection fraction Cardiac pacemaker in situ (~12/2020) Hepatorenal syndrome Symptomatic bradycardia Ventricular bigeminy Thrombocytopenia PVC (premature ventricular contraction) CHF exacerbation Bifascicular block Pancytopenia Prostate CA Myocardial infarct, old CAD (coronary artery disease) HLD (hyperlipidemia) Diabetes HTN (hypertension) Surgical History History of colonoscopy History of cervical spinal surgery History of radical prostatectomy History of left inguinal hernia repair History of total right knee replacement (TKR) History of lumbar discectomy History of cardiac pacemaker (~12/2020) Social History Household Members: Spouse Household Members Other:: 1 Housing: House Are you a primary point of care specialist to a significant other at home: No Do you presently have visiting nurse or other home services: Yes Alcohol intake: current Alcohol intake frequency: holidays/special occasions only Alcohol type: wine Comment: pt refused bed/chair alarm Patient Tobacco Use Status: Former Tobacco user Quit Date: 60 years ago per patient Tobacco use type: Cigarette Years Smoked: 10 Advance Directives Date on File: 01/04/23 service: Yes Current occupational status: retired Review of Systems Const Denies chills and Denies fever(s) Card Reports no additional complaints and Denies syncope Resp Denies cough GI Denies abdominal pain and Denies heartburn Reports as per HPI and Denies change in libido Neuro Denies syncope Psych Denies change in libido Endo Denies change in libido Physical Exam Const General: cooperative, healthy appearing, comfortable and no acute distress Orientation/consciousness: patient oriented x3 HEENT Face and sinus: Yes normal facial exam Mouth: moist mucous membranes Neck Neck: Yes normal visual inspection, Yes full ROM and Yes trachea midline Chest Chest palpation & inspection: normal inspection of the chest Resp Effort & Inspection: normal respiratory effort, able to speak in complete sentences and no respiratory distress GI Inspection: Yes normal to inspection Back/Spine/Pelvis Cervical Spine: normal cervical lordosis Thoracic/Lumbar Spine: thoracic and lumbar spine normal to inspection Skin General skin exam: no rashes or lesions noted Neuro General: patient oriented x3, gait normal, tone normal and moves all extremities Extrem General: Yes normal to inspection and Yes capillary refill normal Assessment & Plan Assessment & Plan (1) Urinary incontinence due to urethral sphincter incompetence: Code(s): N36.42 - Intrinsic sphincter deficiency (ISD); R32 - Unspecified urinary incontinence (2) Radiation cystitis: Code(s): N30.40 - Irradiation cystitis without hematuria (3) Complicated UTI (urinary tract infection): Code(s): N39.0 - Urinary tract infection, site not specified Plan Initiate chemo prophylaxis One month follow-up possible assessment for Poesis catheter Medications: New diaper,brief,adult,disposable As directed - 4 per day 120 ea 4RF Sphincter incontinence N36.42 - Intrinsic sphincter deficiency (ISD), R32 - Unspecified urinary incontinence methenamine hippurate 1 g PO DAILY 90 days 90 tabs 1RF N36.42 - Intrinsic sphincter deficiency (ISD), N39.0 - Urinary tract infection, site not specified, R32 - Unspecified urinary incontinence ascorbic acid (vitamin C) 1 g PO DAILY 90 days 90 tabs 1RF N36.42 - Intrinsic sphincter deficiency (ISD), N39.0 - Urinary tract infection, site not specified, R32 - Unspecified urinary incontinence Patient Instructions: Imaging studies, laboratory and physical exam results were discussed and reviewed in detail. No major barriers to patient understanding were identified. An opportunity to ask questions regarding the treatment plan was provided. All questions were answered. The patient expressed understanding and agreement with the above treatment plan. The patient is aware they should contact our office by phone for worsening of their current condition or the appearance of new urologic symptoms. Compliance is encouraged with any medications and followup testing that is ordered. It is a privilege to participate in the urologic care of your patient. If you have any questions or concerns regarding treatment for the above conditions, or other urologic issues, please do not hesitate to contact me. The office telephone contact is [phone]. This note is constructed using voice recognition software. While every effort has been made to ensure accuracy police judge errors may have been included. Yours sincerely, Dr Marlon Castano MD, [facility] - Urology Providers of Expert, Compassionate Care for the Genitourinary System Coding Level of Care Code Est Pt Level 4 (82582) Diagnoses Urinary incontinence due to urethral sphincter incompetence N36.42; R32 Radiation cystitis N30.40 Complicated UTI (urinary tract infection) N39.0
== END 2023-09-25 11:15 | disposition home or self-care (01) ==
LOC: HO.HUSH 09:53
PROVIDERS: PCP Internal Medicine; Visit Provider Urology
DX: N36.42 Intrinsic sphincter deficiency (ISD) (principal); R32 Unspecified urinary incontinence; N39.0 Urinary tract infection, site not specified
CPT/HCPCS: 99214

== ENCOUNTER → 2023-09-25 09:53 | Outpatient (BNVA) | payer MEDICARE, SELFPAY | PROVIDERS: PCP Internal Medicine; Visit Provider Urology | DX: N36.42 Intrinsic sphincter deficiency (ISD) (principal); N30.40 Irradiation cystitis without hematuria; R32 Unspecified urinary incontinence | CPT/HCPCS: 99212 ==

== ENCOUNTER 2023-10-14 01:47 | Emergency (ER) | payer MEDICARE, SELFPAY ==
[2023-10-14 01:50] VITALS: BP 152/88; PULSE 76; O2SAT 100
[2023-10-14 02:04] VITALS: BP 159/64; PULSE 71; RESP 18; TEMP 36.6; O2SAT 96; BMI 30.7
--- NOTE | 2023-10-14 02:18 | ED_ITS ---
HPI - General Adult General Chief complaint: General Medical Stated complaint: LEG PAIN FROM INF X1 YR PER EMS Time Seen by Provider: 10/14/23 01:59 Source: patient and EMS Mode of arrival: EMS Limitations: no limitations History of Present Illness HPI narrative: 88-year-old male with history of bilateral lower extremity wounds that [facility], patient use pregabalin to control his medication ran out of his medication for the past week now complaining of bilateral wound pain, patient can not sleep because of the chronic pain here today asking for pregabalin, patient otherwise declined any fever chills, patient on Eliquis. Patient's pain is similar to his chronic pain. Patient will contact his primary doctor to get prescription for pregabalin tomorrow. Related Data Home Medications Medication Instructions Recorded Confirmed insulin aspart U-100 100 unit/mL 1 sliding scale dose subcut 12/14/20 08/24/23 subcutaneous solution (Novolog USEASDIRECTD U-100 Insulin aspart) ipratropium 20 mcg-albuterol 100 1 puff inhalation TID 12/14/20 08/24/23 mcg/actuation mist for inhalation (Combivent Respimat) multivitamin 1 tab PO DAILY 12/14/20 08/24/23 atorvastatin 40 mg tablet 40 mg PO BEDTIME 06/13/21 08/24/23 insulin degludec 100 unit/mL (3 70 unit subcut DAILY 10/20/22 08/24/23 mL) subcutaneous pen (Tresiba FlexTouch U-100 insulin) budesonide-formoterol HFA 80 2 puff inhalation BID 01/31/23 08/24/23 mcg-4.5 mcg/actuation aerosol inhaler (Symbicort) vitamin B complex 1 tab PO DAILY 01/31/23 08/24/23 losartan 25 mg tablet 25 mg PO DAILY 02/09/23 08/24/23 cholecalciferol (vitamin D3) 125 125 mcg PO DAILY 05/30/23 08/24/23 mcg (5,000 unit) tablet (Vitamin D3) magnesium 250 mg tablet 250 mg PO DAILY 05/30/23 08/24/23 omega-3s 300 [id number] 1 cap PO BID 05/30/23 08/24/23 [id number] oil 1,000 mg capsule ([place]-3 Fish Oil) zinc 220 mg PO DAILY 05/30/23 08/24/23 ammonium lactate 12 % topical cream 1 appl topical BID 08/24/23 08/24/23 oxycodone 10 mg tablet 10 mg PO Q4H PRN Severe Pain 08/25/23 08/25/23 (Scale Score 7-10) cranberry concentrate-ascorbic cap PO 09/25/23 acid 4,200 mg-20 mg capsule insulin aspart U-100 100 unit/mL 100 unit subcut QPM 09/25/23 (3 mL) subcutaneous pen (Novolog FlexPen U-100 Insulin aspart) magnesium 250 mg tablet 250 mg PO DAILY 09/25/23 turmeric 400 mg capsule mg PO 09/25/23 Previous Rx's Medication Instructions Recorded apixaban 5 mg tablet (Eliquis) 5 mg PO BID #60 tabs 02/09/23 furosemide 20 mg tablet 20 mg PO DAILY Edema #90 tabs 06/03/23 isosorbide mononitrate 30 mg 30 mg PO DAILY #30 tabs 06/08/23 tablet,extended release 24 hr clotrimazole 1 % topical cream 1 appl topical BID 2 weeks #45 07/06/23 grams pregabalin 150 mg capsule 150 mg PO TID #90 caps 08/26/23 metoprolol tartrate 50 mg tablet 50 mg PO BID 90 days #180 tabs 08/28/23 ascorbic acid (vitamin C) 1,000 mg 1 g PO DAILY 90 days #90 tabs 09/25/23 tablet methenamine hippurate 1 gram tablet 1 g PO DAILY 90 days #90 tabs 09/25/23 diaper,brief,adult,disposable #120 ea 09/28/23 Allergies Allergy/AdvReac Type Severity Reaction Status Date / Time No Known Allergies Allergy Mild N/A Verified 09/25/23 10:17 Review of Systems Review of Systems: All other systems are reviewed and are negative Constitutional: Reports as per HPI and Reports no additional constitutional complaints Eyes: Reports as per HPI and Reports no additional eye complaints Reports system reviewed and no additional complaints, except as documented Cardiovascular: Reports as per HPI and Reports no additional cardiovascular complaints Respiratory: Reports as per HPI and Reports no additional respiratory complaints Gastrointestinal: Reports as per HPI and Reports no additional gastrointestinal complaints Genitourinary: Reports no additional female genitourinary complaints Musculoskeletal: Reports no additional musculoskeletal complaints Skin/Breast: Reports system reviewed and no additional complaints, except as docu Psychiatric: Reports no additional psychiatric complaints Endocrine: Reports no additional endocrine complaints Hematologic/Lymphatic: Reports no additional hematologic/lymphatic complaints Allergic/Immunologic: Reports no additional allergic/immunologic complaints Reports system reviewed and no additional complaints, except as documented and Reports Abnormal speech present [facility] Past Medical History Medical History Urinary tract infection due to Pseudomonas aeruginosa Recurrent UTI History of prostate cancer Acute retention of urine Persistent atrial fibrillation COVID-19 vaccine series completed History of cardioversion Hx of Lyme disease Tubular adenoma of colon History of ST elevation myocardial infarction (STEMI) (HFpEF) heart failure with preserved ejection fraction Cardiac pacemaker in situ (~12/2020) Hepatorenal syndrome Symptomatic bradycardia Ventricular bigeminy Thrombocytopenia PVC (premature ventricular contraction) CHF exacerbation Bifascicular block Pancytopenia Prostate CA Myocardial infarct, old CAD (coronary artery disease) HLD (hyperlipidemia) Diabetes HTN (hypertension) Surgical History History of colonoscopy History of cervical spinal surgery History of radical prostatectomy History of left inguinal hernia repair History of total right knee replacement (TKR) History of lumbar discectomy History of cardiac pacemaker (~12/2020) Social History Social History Household Members: Spouse Household Members Other:: 1 Housing: House Are you a primary primary care pediatrician to a significant other at home: No Do you presently have visiting nurse or other home services: Yes Alcohol intake: current Alcohol intake frequency: holidays/special occasions only Alcohol type: wine Comment: pt refused bed/chair alarm Patient Tobacco Use Status: Former Tobacco user Quit Date: 60 years ago per patient Tobacco use type: Cigarette Years Smoked: 10 Advance Directives Date on File: 01/04/23 service: Yes Current occupational status: retired Physical Exam ED Vital Signs: Vital Signs - 24 hr 10/14/23 02:04 Temperature 97.9 F Pulse Rate 71 Respiratory Rate 18 Blood Pressure 159/64 H Pulse Oximetry 96 Oxygen Delivery Method Room Air BMI result Body Mass Index 30.7 Vital signs have been reviewed and appear to be correct. Blood pressure elevated. Heart rate normal. Respiratory rate normal. Temperature normal. Oxygen saturation normal. Appearance: Alert. Oriented X3. No acute distress. Head: Normal external exam. Normocephalic. Atraumatic. No Guzman signs noted. No raccoon eyes noted Eyes: PERRLA. EOMI. Conjunctiva and sclera normal. Eyelids normal. ENT: TM's Normal. Pharynx normal. Uvula midline. Moist mucous membranes. No trismus noted. No drooling noted. No muffled voice noted. Neck: Normal inspection. Neck supple. FROM. No adenopathy. Thyroid Normal. No meningeal signs. No neck mass noted. CVS: Normal heart rate and rhythm. Heart sound normal. No murmurs noted. Pulses normal throughout. Respiratory: No respiratory distress. Painless inspiration. Breath sounds normal. No wheezes/rales/rhonchi noted. Chest nontender. No accessory muscle usage noted or decreased air movement noted. Abdomen: Soft and nontender. Bowel sounds normal in all 4 quadrants. No distention noted. No organomegaly noted. No visible injury noted. Back: No CVA tenderness. Full range of motion noted. Skin: Skin warm and dry. Normal skin color. Normal skin turgor. No rashes/lesions/lacerations noted. Extremities: Bilateral lower extremities edema that the patient confirmed is chronic, bilateral venous stasis to both lower extremity, no hotness, no redness, no drainage. Neuro: Oriented X 3. Cranial nerve exam: II-XII are grossly intact No motor deficit. No sensory deficit. Reflexes normal. Course Reevaluation(s) Reevaluation #1: Acute on chronic bilateral leg pain due to likely peripheral neuropathy patient ran out pregabalin that usually control the pain well was given 1 dose of pregabalin patient report improvement of the pain. Medical Decision Making Differential Diagnosis Differential Diagnoses: The differential diagnosis associated with the presentation includes (Cellulitis, peripheral neuropathy.) Admission/Observation Consideration of admission/observation: Escalation of care including admission/observation considered Chronic Conditions Patient?s care impacted by: Other (Chronic peripheral neuropathy.) Discharge Plan Discharge Clinical Impression: Chronic wound, Chronic pain Patient Disposition: Home, Self-Care Instructions: Chronic Pain (ED) Prescriptions: No Action isosorbide mononitrate 30 mg tablet extended release 24 hr 30 mg PO DAILY Qty: 30 6RF metoprolol tartrate 50 mg tablet 50 mg PO BID 90 Days Qty: 180 2RF (DME) diaper,brief,adult,disposable Misc See Rx Instructions .ROUTE .MEDSUPPLY Qty: 120 4RF Rx Instructions: As directed - 4 per day Combivent Respimat 20-100 mcg/actuation mist 1 puff inhalation TID multivitamin Tablet 1 tab PO DAILY insulin aspart U-100 [Novolog U-100 Insulin aspart] 100 unit/mL Solution 1 sliding scale dose SUBCUT USEASDIRECTD insulin degludec [Tresiba FlexTouch U-100] 100 unit/mL (3 mL) insulin pen 70 unit subcut DAILY [place]inckley-3 Fish Oil 300-1,000 mg Capsule 1 cap PO BID magnesium 250 mg Tablet 250 mg PO DAILY cholecalciferol (vitamin D3) [Vitamin D3] 125 mcg (5,000 unit) Tablet 125 mcg PO DAILY zinc 220 mg PO DAILY furosemide 20 mg tablet 20 mg PO DAILY Qty: 90 1RF clotrimazole 1 % cream 1 appl topical BID 14 Days Qty: 45 0RF vitamin B complex Tablet 1 tab PO DAILY budesonide-formoterol [Symbicort] 80-4.5 mcg/actuation HFA aerosol inhaler 2 puff inhalation BID ammonium lactate 12 % cream 1 appl topical BID oxycodone 10 mg tablet 10 mg PO Q4H PRN (Reason: Severe Pain (Scale Score 7-10)) pregabalin 150 mg capsule 150 mg PO TID Qty: 90 0RF atorvastatin 40 mg tablet 40 mg PO BEDTIME losartan 25 mg tablet 25 mg PO DAILY Eliquis 5 mg tablet 5 mg PO BID Qty: 60 0RF turmeric 400 mg capsule PO cranberry conc-ascorbic acid 4,200-20 mg capsule PO magnesium 250 mg tablet 250 mg PO DAILY insulin aspart U-100 [Novolog FlexPen U-100 Insulin] 100 unit/mL (3 mL) insulin pen 100 unit subcut QPM methenamine hippurate 1 gram tablet 1 g PO DAILY 90 Days Qty: 90 1RF ascorbic acid (vitamin C) 1,000 mg tablet 1 g PO DAILY 90 Days Qty: 90 1RF Referrals: Jewel Rebolledo MD [Primary Care Provider] -
[2023-10-14] MEDS: Pregabalin 150 MG CAPSULE PO (02:54)
[2023-10-14 06:05] VITALS: BP 142/78; PULSE 76; RESP 18; O2SAT 99
[2023-10-14] MEDS: Pregabalin 100 MG CAPSULE PO (06:43)
== END 2023-10-14 06:45 | disposition home or self-care (01) ==
PROVIDERS: Emergency Provider Emergency Medicine; PCP Internal Medicine
DX: G89.4 Chronic pain syndrome (principal); S81.802D Unspecified open wound, left lower leg, subsequent encounter; S81.801D Unspecified open wound, right lower leg, subsequent encounter; X58.XXXD Exposure to other specified factors, subsequent encounter; R60.0 Localized edema; I87.8 Other specified disorders of veins; E11.9 Type 2 diabetes mellitus without complications; I11.0 Hypertensive heart disease with heart failure; I50.30 Unspecified diastolic (congestive) heart failure; E78.5 Hyperlipidemia, unspecified; I48.19 Other persistent atrial fibrillation; I25.2 Old myocardial infarction; Z87.891 Personal history of nicotine dependence; Z85.46 Personal history of malignant neoplasm of prostate; Z95.0 Presence of cardiac pacemaker; Z79.4 Long term (current) use of insulin; Z79.899 Other long term (current) drug therapy; Z79.01 Long term (current) use of anticoagulants; Z79.02 Long term (current) use of antithrombotics/antiplatelets
CPT/HCPCS: 99283; 99284

== ENCOUNTER 2023-11-06 15:46 | Outpatient (REF) | payer MEDICARE, SELFPAY ==
--- NOTE | ~2023-11-06 | XR_ITS ---
EXAMINATION: XR RIBS, RIGHT CLINICAL INFORMATION: Right-sided rib pain, fall 2 days ago. COMPARISON: Chest radiograph 05/30/2023. TECHNIQUE: 3 views of the right ribs were obtained. FINDINGS: Stable prominence of the cardiomediastinal silhouette. Left-sided pacer with leads projecting over the right atrium and right ventricle. Unchanged diffuse interstitial thickening and bibasilar streaky opacities. No new focal airspace densities. No pleural effusion or pneumothorax. Chronic displaced left lateral sixth rib fracture. Chronic mildly displaced right posterolateral seventh and eighth rib fractures. Stable decreased right acromiohumeral interval suggesting rotator cuff disease with moderate arthrosis of the acromiohumeral and glenohumeral joints. XR/XR ribs RT min 3V w CXR1V IMPRESSION: 1. No acute cardiopulmonary findings. 2. Bilateral chronic rib fractures. 3. Stable moderate arthrosis of the right shoulder with findings suggesting rotator cuff disease.
== END 2023-11-06 15:47 | disposition home or self-care (01) ==
LOC: HO.HMGCX 15:46
PROVIDERS: PCP Internal Medicine; Visit Provider Internal Medicine
DX: R07.9 Chest pain, unspecified (principal); Z91.81 History of falling
CPT/HCPCS: 71101

== ENCOUNTER → 2023-11-09 23:59 | Outpatient (BNV) | payer MEDICARE, SELFPAY ==
--- NOTE | 2023-11-11 14:46 | MHC.OFFVIS ---
Intake Intake Visit Reasons: Remote Device Check- [facility] Allergies No Known Allergies Allergy (Mild, Verified 09/25/23 10:17) N/A [facility] Medical History Urinary tract infection due to Pseudomonas aeruginosa Recurrent UTI History of prostate cancer Acute retention of urine Persistent atrial fibrillation COVID-19 vaccine series completed History of cardioversion Hx of Lyme disease Tubular adenoma of colon History of ST elevation myocardial infarction (STEMI) (HFpEF) heart failure with preserved ejection fraction Cardiac pacemaker in situ (~12/2020) Hepatorenal syndrome Symptomatic bradycardia Ventricular bigeminy Thrombocytopenia PVC (premature ventricular contraction) CHF exacerbation Bifascicular block Pancytopenia Prostate CA Myocardial infarct, old CAD (coronary artery disease) HLD (hyperlipidemia) Diabetes HTN (hypertension) Surgical History History of colonoscopy History of cervical spinal surgery History of radical prostatectomy History of left inguinal hernia repair History of total right knee replacement (TKR) History of lumbar discectomy History of cardiac pacemaker (~12/2020) Social History Household Members: Spouse Household Members Other:: 1 Housing: House Are you a primary career services officer to a significant other at home: No Do you presently have visiting nurse or other home services: Yes Alcohol intake: current Alcohol intake frequency: holidays/special occasions only Alcohol type: wine Comment: pt refused bed/chair alarm Patient Tobacco Use Status: Former Tobacco user Quit Date: 60 years ago per patient Tobacco use type: Cigarette Years Smoked: 10 Advance Directives Date on File: 01/04/23 service: Yes Current occupational status: retired Office Procedures Cardiac Device Check Cardiac Device Check Details: Remote pacemaker report generated 11/09/2023. Pacemaker function overall is adequate. Increasing burden of atrial fibrillation noted. [id number] Cardiac Device Interrogation, pacemaker Procedure code (CPT) selection complete Assessment & Plan Assessment & Plan (1) Cardiac pacemaker in situ: Onset Date: ~12/2020 Comment: ([facility] DCPP 01/03/2021) Code(s): Z95.0 - Presence of cardiac pacemaker Plan: See above Coding Level of Care Code Procedure Only Diagnoses Cardiac pacemaker in situ Z95.0 CPT Codes Cardiac Device Check - Cardiac Device 12: [id number] Cardiac Device Interrogation, pacemaker ([id number])
== END ==
PROVIDERS: PCP Internal Medicine; Visit Provider Internal Medicine Cardiovascular Disease
DX: I48.91 Unspecified atrial fibrillation (principal); Z95.0 Presence of cardiac pacemaker
CPT/HCPCS: 93294

== ENCOUNTER → 2023-11-10 11:46 | Outpatient (BNVA) | payer MEDICARE, SELFPAY | PROVIDERS: PCP Internal Medicine; Visit Provider Internal Medicine Cardiovascular Disease ==

== ENCOUNTER 2023-11-17 10:37 | Outpatient (REF) | payer MEDICARE, SELFPAY ==
[2023-11-17 13:46] LABS: Estimated Average Glucose 206 mg/dL; Hemoglobin A1c % 8.8 % (<6.0)
== END 2023-11-17 10:38 | disposition home or self-care (01) ==
LOC: HO.HMGCLDS 10:37
PROVIDERS: PCP Internal Medicine; Visit Provider Internal Medicine
DX: E10.65 Type 1 diabetes mellitus with hyperglycemia (principal); Z79.4 Long term (current) use of insulin
CPT/HCPCS: 36415; 83036

== ENCOUNTER 2023-12-08 01:06 | Emergency (ER) | payer MEDICARE, SELFPAY ==
--- NOTE | 2023-12-08 | ECG_ITS ---
Test Reason : fall Blood Pressure : / mmHG Vent. Rate : 072 BPM Atrial Rate : 072 BPM P-R Int : 202 ms QRS Dur : 172 ms QT Int : 468 ms P-R-T Axes : 050 -78 091 degrees QTc Int : 512 ms Atrial-sensed ventricular-paced rhythm Abnormal ECG When compared with ECG of 24-AUG-2023 19:04, No significant changes seen Referred By: Michael Pope Electronically Signed By:IKER SOTO
--- NOTE | ~2023-12-08 | CT_ITS ---
EXAMINATION: NONCONTRAST HEAD CT NONCONTRAST CERVICAL SPINE CT INDICATION INFORMATION: Fall COMPARISON: 08/25/2023 TECHNIQUE: Separate noncontrast CT examinations of the head and cervical spine were performed. Coronal head CT images and coronal and sagittal cervical spine images were created at the technologist workstation. DLP: 1151 mGy-cm DOSE LOWERING TECHNIQUES: This CT examination was performed using dose optimization techniques as appropriate, variously including the following: - Automated exposure control - Adjustment of mA and/or kV according to patient size (this includes techniques or standardized protocols for targeted exams were dose is matched to indication/reason for exam; i.e. extremities or head) - Use of iterative reconstruction technique FINDINGS: Head: There is no evidence of acute intracranial hemorrhage or territorial infarction. No abnormal mass-effect or midline shift is seen. Mari to white matter differentiation is well preserved. No extra-axial fluid collections are identified. The ventricles are normal in size. Moderate volume loss is noted. Posterior scalp soft tissue swelling is noted. No acute fracture is seen. Mucus retention cyst in the right maxillary sinus. Partially opacified left mastoid air cells. Cervical spine: There is degenerative change at the atlantodens articulation. There is grade 1 anterolisthesis of C2 on C3, similar to prior. Vertebral body heights are maintained. There is diffuse disc space narrowing and endplate osteophyte formation along with multilevel facet arthropathy. No evidence of acute fracture. No prevertebral soft tissue swelling. Visualized portions of the lung apices are unremarkable. The thyroid gland is unremarkable. CT/CT cervical spine wo IV con IMPRESSION: HEAD: No acute intracranial findings. Posterior scalp soft tissue swelling. CERVICAL SPINE: No acute findings identified. Multilevel degenerative changes.
[2023-12-08 01:28] VITALS: BP 134/70; PULSE 72
[2023-12-08 01:29] VITALS: BP 123/53; PULSE 72; RESP 16; TEMP 37; O2SAT 99; BMI 26.6
--- NOTE | 2023-12-08 01:31 | ED_ITS ---
HPI - Fall General Chief Complaint: Fall Stated Complaint: MECHANICAL FALL Time Seen by Provider: 12/08/23 01:14 Source: patient Mode of arrival: ambulatory Limitations: no limitations History of Present Illness HPI Narrative: Patient on Eliquis for AFib apparently lost his balance as his walker moved and patient fell backwards hitting his top of the head to the table . This happened at 8 pm since then patient has been bleeding no loss of consciousness patient has tried to stop bleeding but could not do it no dizziness Related Data Home Medications ?Medication ?Instructions ?Recorded ?Confirmed insulin aspart U-100 100 unit/mL 1 sliding scale dose subcut 12/14/20 08/24/23 subcutaneous solution (Novolog USEASDIRECTD U-100 Insulin aspart) ipratropium 20 mcg-albuterol 100 1 puff inhalation TID 12/14/20 08/24/23 mcg/actuation mist for inhalation (Combivent Respimat) multivitamin 1 tab PO DAILY 12/14/20 08/24/23 atorvastatin 40 mg tablet 40 mg PO BEDTIME 06/13/21 08/24/23 insulin degludec 100 unit/mL (3 70 unit subcut DAILY 10/20/22 08/24/23 mL) subcutaneous pen (Tresiba FlexTouch U-100 insulin) budesonide-formoterol HFA 80 2 puff inhalation BID 01/31/23 08/24/23 mcg-4.5 mcg/actuation aerosol inhaler (Symbicort) vitamin B complex 1 tab PO DAILY 01/31/23 08/24/23 losartan 25 mg tablet 25 mg PO DAILY 02/09/23 08/24/23 cholecalciferol (vitamin D3) 125 125 mcg PO DAILY 05/30/23 08/24/23 mcg (5,000 unit) tablet (Vitamin D3) magnesium 250 mg tablet 250 mg PO DAILY 05/30/23 08/24/23 omega-3s 300 ct-mlc-xxe-other 1 cap PO BID 05/30/23 08/24/23 [id number] oil 1,000 mg capsule ([place]-3 Fish Oil) zinc 220 mg PO DAILY 05/30/23 08/24/23 ammonium lactate 12 % topical cream 1 appl topical BID 08/24/23 08/24/23 oxycodone 10 mg tablet 10 mg PO Q4H PRN Severe Pain 08/25/23 08/25/23 (Scale Score 7-10) cranberry concentrate-ascorbic cap PO 09/25/23 acid 4,200 mg-20 mg capsule insulin aspart U-100 100 unit/mL 100 unit subcut QPM 09/25/23 (3 mL) subcutaneous pen (Novolog FlexPen U-100 Insulin aspart) magnesium 250 mg tablet 250 mg PO DAILY 09/25/23 turmeric 400 mg capsule mg PO 09/25/23 Previous Rx's ?Medication ?Instructions ?Recorded apixaban 5 mg tablet (Eliquis) 5 mg PO BID #60 tabs 02/09/23 isosorbide mononitrate 30 mg 30 mg PO DAILY #30 tabs 06/08/23 tablet,extended release 24 hr clotrimazole 1 % topical cream 1 appl topical BID 2 weeks #45 07/06/23 grams pregabalin 150 mg capsule 150 mg PO TID #90 caps 08/26/23 metoprolol tartrate 50 mg tablet 50 mg PO BID 90 days #180 tabs 08/28/23 ascorbic acid (vitamin C) 1,000 mg 1 g PO DAILY 90 days #90 tabs 09/25/23 tablet methenamine hippurate 1 gram tablet 1 g PO DAILY 90 days #90 tabs 09/25/23 diaper,brief,adult,disposable #120 ea 09/28/23 torsemide 20 mg tablet 20 mg PO DAILY #30 tabs 10/27/23 Allergies Allergy/AdvReac Type Severity Reaction Status Date / Time No Known Allergies Allergy Mild N/A Verified 12/08/23 01:32 Review of Systems Review of Systems: Yes all other systems are reviewed and are negative [facility] Past Medical History Medical History Urinary tract infection due to Pseudomonas aeruginosa Recurrent UTI History of prostate cancer Acute retention of urine Persistent atrial fibrillation COVID-19 vaccine series completed History of cardioversion Hx of Lyme disease Tubular adenoma of colon History of ST elevation myocardial infarction (STEMI) (HFpEF) heart failure with preserved ejection fraction Cardiac pacemaker in situ (~12/2020) Hepatorenal syndrome Symptomatic bradycardia Ventricular bigeminy Thrombocytopenia PVC (premature ventricular contraction) CHF exacerbation Bifascicular block Pancytopenia Prostate CA Myocardial infarct, old CAD (coronary artery disease) HLD (hyperlipidemia) Diabetes HTN (hypertension) Surgical History History of colonoscopy History of cervical spinal surgery History of radical prostatectomy History of left inguinal hernia repair History of total right knee replacement (TKR) History of lumbar discectomy History of cardiac pacemaker (~12/2020) Social History Social History Household Members: Spouse Household Members Other:: 1 Housing: House Are you a primary career placement specialist to a significant other at home: No Do you presently have visiting nurse or other home services: Yes Alcohol intake: current Alcohol intake frequency: holidays/special occasions only Alcohol type: wine Comment: pt refused bed/chair alarm Patient Tobacco Use Status: Former Tobacco user Quit Date: 60 years ago per patient Tobacco use type: Cigarette Years Smoked: 10 Smoked in Last 30 Days: No Use of substances other than those prescribed or required for medical reasons: No Advance Directives: Yes Advance Directives on File: Yes Advance Directives Date on File: 01/04/23 service: Yes Current occupational status: retired Physical Exam Vital Signs: Vital Signs: Last Vital Signs Temp 97.7 F 12/08/23 06:14 Pulse 69 12/08/23 06:14 Resp 18 12/08/23 06:14 BP 101/56 L 12/08/23 06:14 Pulse Ox 97 12/08/23 06:14 O2 Del Method Room Air 12/08/23 06:14 BMI result Body Mass Index 26.6 Appearance: Alert. Oriented X3. No acute distress. Eyes: no pallor ENT: Pharynx normal. Oral Mucosa moist small laceration at occipital area actively bleding Neck: Normal inspection. Neck supple. CVS: Normal heart rate and rhythm. Pulses normal. Respiratory: No respiratory distress. Equal air entry bilateral, no wheezing/rales/rhonchi Abdomen: Soft and nontender. Skin: Skin warm and dry. Normal skin color. Normal skin turgor. Extremities: No lower extremity edema. No calf tenderness Neuro: Oriented X 3. No motor deficit. No sensory deficit.No cerebellar signs , cranial nerves II-XII intact Procedures Laceration Laceration 1: Site: scalp Size (cm): 1 Description: linear Skin layer closed with: other (3 tanner) Medical Decision Making Independent Interpretation I performed an independent interpretation of an: EKG Interpretation: Paced rhythm 72 beats per no acute ST T wave changes no acute ischemia Discharge Plan Discharge Clinical Impression: Fall, Laceration of scalp Patient Disposition: Home, Self-Care Instructions: Laceration (ED), Fall Prevention (ED) Additional Instructions: Care and cautions as advised Staple removal in 1 week Prescriptions: No Action isosorbide mononitrate 30 mg tablet extended release 24 hr 30 mg PO DAILY Qty: 30 6RF metoprolol tartrate 50 mg tablet 50 mg PO BID 90 Days Qty: 180 2RF (DME) diaper,brief,adult,disposable Misc See Rx Instructions .ROUTE .MEDSUPPLY Qty: 120 4RF Rx Instructions: As directed - 4 per day torsemide 20 mg tablet 20 mg PO DAILY Qty: 30 5RF Combivent Respimat 20-100 mcg/actuation mist 1 puff inhalation TID multivitamin Tablet 1 tab PO DAILY insulin aspart U-100 [Novolog U-100 Insulin aspart] 100 unit/mL Solution 1 sliding scale dose SUBCUT USEASDIRECTD insulin degludec [Tresiba FlexTouch U-100] 100 unit/mL (3 mL) insulin pen 70 unit subcut DAILY [place]-3 Fish Oil 300-1,000 mg Capsule 1 cap PO BID magnesium 250 mg Tablet 250 mg PO DAILY cholecalciferol (vitamin D3) [Vitamin D3] 125 mcg (5,000 unit) Tablet 125 mcg PO DAILY zinc 220 mg PO DAILY clotrimazole 1 % cream 1 appl topical BID 14 Days Qty: 45 0RF vitamin B complex Tablet 1 tab PO DAILY budesonide-formoterol [Symbicort] 80-4.5 mcg/actuation HFA aerosol inhaler 2 puff inhalation BID ammonium lactate 12 % cream 1 appl topical BID oxycodone 10 mg tablet 10 mg PO Q4H PRN (Reason: Severe Pain (Scale Score 7-10)) pregabalin 150 mg capsule 150 mg PO TID Qty: 90 0RF atorvastatin 40 mg tablet 40 mg PO BEDTIME losartan 25 mg tablet 25 mg PO DAILY Eliquis 5 mg tablet 5 mg PO BID Qty: 60 0RF turmeric 400 mg capsule PO cranberry conc-ascorbic acid 4,200-20 mg capsule PO magnesium 250 mg tablet 250 mg PO DAILY insulin aspart U-100 [Novolog FlexPen U-100 Insulin] 100 unit/mL (3 mL) insulin pen 100 unit subcut QPM methenamine hippurate 1 gram tablet 1 g PO DAILY 90 Days Qty: 90 1RF ascorbic acid (vitamin C) 1,000 mg tablet 1 g PO DAILY 90 Days Qty: 90 1RF Print Language: Chinese
[2023-12-08 01:44] VITALS: BP 123/53; PULSE 74; RESP 16; TEMP 36.8; O2SAT 98
[2023-12-08 06:14] VITALS: BP 101/56; PULSE 69; RESP 18; TEMP 36.5; O2SAT 97
--- NOTE | 2023-12-08 07:42 | PC.NURSE ---
Pt calling at this time for discharge ride home.
[2023-12-08 08:23] VITALS: BP 106/58; PULSE 70; RESP 18; TEMP 36.6; O2SAT 99
--- NOTE | 2023-12-08 08:25 | MHC.EDTECH ---
Patient states unable to pick him up until 10 am. Patient denies headache But states that he has 7/10 bilateral shoulder pain. When this tech asked patient if this was related to the fall ,he stated no this is an ongoing issues RN aware.
--- NOTE | 2023-12-08 10:56 | PC.NURSE ---
upon removing pts IV, his skin is thin/delicate and the tegaderm caused a skin tear, provider came into the room and evaluated it, the area was dressed with a non stick dressing and cling per request of provider.
[2023-12-08 11:17] VITALS: BP 113/64; PULSE 70; RESP 18; TEMP 36.4; O2SAT 100
== END 2023-12-08 11:18 | disposition home or self-care (01) ==
PROVIDERS: Emergency Provider Internal Medicine; PCP Internal Medicine
DX: S01.01XA Laceration without foreign body of scalp, initial encounter (principal); I48.19 Other persistent atrial fibrillation; I11.0 Hypertensive heart disease with heart failure; I50.30 Unspecified diastolic (congestive) heart failure; E11.9 Type 2 diabetes mellitus without complications; Z79.01 Long term (current) use of anticoagulants; W18.30XA Fall on same level, unspecified, initial encounter; Y93.9 Activity, unspecified; Y92.9 Unspecified place or not applicable; Y99.9 Unspecified external cause status; Z95.0 Presence of cardiac pacemaker
CPT/HCPCS: 12001; 70450; 72125; 93005; 99284; 99285

== ENCOUNTER → 2023-12-08 01:33 | Outpatient (BNV) | payer MEDICARE, SELFPAY | PROVIDERS: Emergency Provider Internal Medicine; PCP Internal Medicine; Visit Provider Internal Medicine | DX: R94.31 Abnormal electrocardiogram [ECG] [EKG] (principal) | CPT/HCPCS: 93010 ==

== ENCOUNTER 2024-01-03 00:34 | Emergency (ER) | payer MEDICARE, SELFPAY ==
--- NOTE | 2024-01-03 | ECG_ITS ---
Test Reason : SOB Blood Pressure : / mmHG Vent. Rate : 080 BPM Atrial Rate : 057 BPM P-R Int : 000 ms QRS Dur : 190 ms QT Int : 492 ms P-R-T Axes : 000 -68 111 degrees QTc Int : 567 ms Ventricular-paced rhythm with frequent Premature ventricular complexes Abnormal ECG When compared with ECG of 08-DEC-2023 01:33, Premature ventricular complexes are now Present Vent. rate has increased BY 8 BPM Referred By: Generic ED Physician Electronically Signed By:Peter Viera
[2024-01-03 00:41] VITALS: BP 124/88; BP 130/109; PULSE 75; PULSE 82; RESP 16; O2SAT 96; O2SAT 99; BMI 27.3
[2024-01-03 01:05] LABS: Glucose, Whole Blood 124 mg/dL (60-115)
--- NOTE | 2024-01-03 01:23 | ED.GENADULT ---
HPI - General Adult General Chief complaint: General Medical Stated complaint: AMS, hypoglycemic Time Seen by Provider: 01/03/24 00:43 Source: patient, family (Patient's and daughter), RN notes reviewed and old records reviewed Limitations: other (Patient is a very poor historian) History of Present Illness HPI narrative: 88-year-old male past medical history significant for diabetic neuropathy, chronic urinary incontinence, recurrent lower extremity cellulitis, encephalopathy, radiation cystitis, shingles, paroxysmal AFib, heart failure with preserved ejection fraction presents for evaluation of hyperglycemia. Per EMS and the patient's family, the patient was found awake, but not himself. ? The patient's who is bedside said that the patient's eyes are open but he was not making sense when she was trying to talk to him She called the ambulance and EMS found his point of care glucose to be 40 He was given 25 g of D10 EN route to the hospital The patient reports that he is on 30 units of long-acting insulin every morning in his sliding scale throughout the day. He is confident that he did not overdose on insulin bad accident The patient also complains of chronic foot pain [id number] which she attributes to neuropathy He reports that he was recently started on a new antibiotic yesterday. His said it was for a foot infection and the patient states it is for a bladder infection Unclear which the exact indication was or which antibiotic he started yesterday Related Data Home Medications ?Medication ?Instructions ?Recorded ?Confirmed insulin aspart U-100 100 unit/mL 1 sliding scale dose subcut 12/14/20 08/24/23 subcutaneous solution (Novolog USEASDIRECTD U-100 Insulin aspart) ipratropium 20 mcg-albuterol 100 1 puff inhalation TID 12/14/20 08/24/23 mcg/actuation mist for inhalation (Combivent Respimat) multivitamin 1 tab PO DAILY 12/14/20 08/24/23 atorvastatin 40 mg tablet 40 mg PO BEDTIME 06/13/21 08/24/23 insulin degludec 100 unit/mL (3 70 unit subcut DAILY 10/20/22 08/24/23 mL) subcutaneous pen (Tresiba FlexTouch U-100 insulin) budesonide-formoterol HFA 80 2 puff inhalation BID 01/31/23 08/24/23 mcg-4.5 mcg/actuation aerosol inhaler (Symbicort) vitamin B complex 1 tab PO DAILY 01/31/23 08/24/23 losartan 25 mg tablet 25 mg PO DAILY 02/09/23 08/24/23 cholecalciferol (vitamin D3) 125 125 mcg PO DAILY 05/30/23 08/24/23 mcg (5,000 unit) tablet (Vitamin D3) magnesium 250 mg tablet 250 mg PO DAILY 05/30/23 08/24/23 omega-3s 300 [id number] 1 cap PO BID 05/30/23 08/24/23 [id number] oil 1,000 mg capsule ([place]-3 Fish Oil) zinc 220 mg PO DAILY 05/30/23 08/24/23 ammonium lactate 12 % topical cream 1 appl topical BID 08/24/23 08/24/23 oxycodone 10 mg tablet 10 mg PO Q4H PRN Severe Pain 08/25/23 08/25/23 (Scale Score 7-10) cranberry concentrate-ascorbic cap PO 09/25/23 acid 4,200 mg-20 mg capsule insulin aspart U-100 100 unit/mL 100 unit subcut QPM 09/25/23 (3 mL) subcutaneous pen (Novolog FlexPen U-100 Insulin aspart) magnesium 250 mg tablet 250 mg PO DAILY 09/25/23 turmeric 400 mg capsule mg PO 09/25/23 Previous Rx's ?Medication ?Instructions ?Recorded apixaban 5 mg tablet (Eliquis) 5 mg PO BID #60 tabs 02/09/23 isosorbide mononitrate 30 mg 30 mg PO DAILY #30 tabs 06/08/23 tablet,extended release 24 hr clotrimazole 1 % topical cream 1 appl topical BID 2 weeks #45 07/06/23 grams pregabalin 150 mg capsule 150 mg PO TID #90 caps 08/26/23 metoprolol tartrate 50 mg tablet 50 mg PO BID 90 days #180 tabs 08/28/23 ascorbic acid (vitamin C) 1,000 mg 1 g PO DAILY 90 days #90 tabs 09/25/23 tablet methenamine hippurate 1 gram tablet 1 g PO DAILY 90 days #90 tabs 09/25/23 diaper,brief,adult,disposable #120 ea 09/28/23 torsemide 20 mg tablet 20 mg PO DAILY #30 tabs 03/05/24 Allergies Allergy/AdvReac Type Severity Reaction Status Date / Time No Known Allergies Allergy Mild N/A Verified 01/03/24 00:43 Review of Systems Constitutional: Constitutional: Denies body ache(s), Denies chills, Denies fever(s) and Denies headache(s) Eyes: Eyes: Denies blurry vision ENT: Denies headache(s) and Denies sore throat Cardiovascular: Cardiovascular: Denies chest pain and Denies dyspnea Respiratory: Respiratory: Denies cough and Denies dyspnea Gastrointestinal: Gastrointestinal: Denies abdominal pain, Denies nausea and Denies vomiting Genitourinary: Genitourinary: Reports urinary frequency and Reports urinary incontinence Musculoskeletal: Musculoskeletal: Denies back pain Comments: Reports bilateral foot pain Neurologic: Denies headache(s) Psychiatric: Psychiatric: Denies panic attacks PMF Past Medical History Medical History Urinary tract infection due to Pseudomonas aeruginosa Recurrent UTI History of prostate cancer Acute retention of urine Persistent atrial fibrillation COVID-19 vaccine series completed History of cardioversion Hx of Lyme disease Tubular adenoma of colon History of ST elevation myocardial infarction (STEMI) (HFpEF) heart failure with preserved ejection fraction Cardiac pacemaker in situ (~12/2020) Hepatorenal syndrome Symptomatic bradycardia Ventricular bigeminy Thrombocytopenia PVC (premature ventricular contraction) CHF exacerbation Bifascicular block Pancytopenia Prostate CA Myocardial infarct, old CAD (coronary artery disease) HLD (hyperlipidemia) Diabetes HTN (hypertension) Surgical History History of colonoscopy History of cervical spinal surgery History of radical prostatectomy History of left inguinal hernia repair History of total right knee replacement (TKR) History of lumbar discectomy History of cardiac pacemaker (~12/2020) Social History Social History Household Members: Spouse Household Members Other:: 1 Housing: House Are you a primary laboratory animal caretaker to a significant other at home: No Do you presently have visiting nurse or other home services: Yes Alcohol intake: current Alcohol intake frequency: holidays/special occasions only Alcohol type: wine Comment: pt refused bed/chair alarm Patient Tobacco Use Status: Former Tobacco user Quit Date: 60 years ago per patient Tobacco use type: Cigarette Years Smoked: 10 Advance Directives Date on File: 01/04/23 service: Yes Current occupational status: retired Physical Exam ED Vital Signs: Vital Signs - 24 hr 01/03/24 00:41 Pulse Rate 75 Respiratory Rate 16 Blood Pressure 130/109 H Pulse Oximetry 99 Oxygen Delivery Method Room Air BMI result Body Mass Index 27.3 Const General: healthy appearing, comfortable, no acute distress, alert and awake Nutritional Appearance: well nourished HENDC Head: Yes normocephalic and Yes atraumatic Throat: Yes posterior oropharynx normal Eyes Eyelids: Yes eyelids normal Conjunctivae: conjunctivae normal Sclerae: sclerae normal Corneas: corneas normal Pupils: Equal, round and reactive pupils present EOM: EOMs intact bilaterally Neck Neck: Yes full ROM Resp Effort & Inspection: normal respiratory effort, able to speak in complete sentences, no audible wheezes and not labored Auscultation: clear to auscultation bilaterally Cardio Rate: regular rate Rhythm: regular rhythm GI Inspection: No distended Palpation (GI): Soft to palpation, not firm, nontender, no guarding and not rigid Skin General skin exam: elasticity normal Neuro Cranial nerves: Yes CN's II-XII intact bilaterally, Yes Equal, round and reactive pupils present and Yes Bilaterally intact EOM present Cognition (Neuro): normal cognition Extrem Other: Moving all extremities well. The patient has chronic left foot deformity due to previous surgery. There is a faint spot of erythema to the dorsal surface of the left foot. About 2 cm wide. There is no increased warmth, there is no tenderness to palpation. There are no open wounds. No significant lower extremity edema, no calf tenderness Course Reevaluation(s) Reevaluation #1: Per the patient's and daughter, the patient is back to his mental baseline Time: 01:28 Medical Decision Making Medical Decision Making MDM Narrative: 88-year-old male presents for evaluation of hypoglycemia. The patient was given 25 g of D10 prior to arrival and is sugar on point of care was 124 in the ER. Per family he is back to his mental baseline. He complains of bilateral foot pain, left greater than right. Per himself and family this is chronic and he believes related to neuropathy. He treats sent home with oxycodone. He will be given a dose of oxycodone. He has a faint spot of erythema to the dorsal surface of left foot. This does not appear to be consistent with acute cellulitis. Plan for basic labs, UA frequent sugar monitoring Differential Diagnosis Differential Diagnoses: The differential diagnosis associated with the presentation includes Hypoglycemia Insulin overdose UTI Diabetic neuropathy Lab Data Labs: Lab Results 01/03/24 Range/Units 00:48 POC Glucose 124 H (60-115) mg/dL Discharge Plan Discharge Clinical Impression: Hypoglycemia Patient Disposition: Still a Patient Prescriptions: No Action isosorbide mononitrate 30 mg tablet extended release 24 hr 30 mg PO DAILY Qty: 30 6RF metoprolol tartrate 50 mg tablet 50 mg PO BID 90 Days Qty: 180 2RF (DME) diaper,brief,adult,disposable Misc See Rx Instructions .ROUTE .MEDSUPPLY Qty: 120 4RF Rx Instructions: As directed - 4 per day torsemide 20 mg tablet 20 mg PO DAILY Qty: 30 5RF Combivent Respimat 20-100 mcg/actuation mist 1 puff inhalation TID multivitamin Tablet 1 tab PO DAILY insulin aspart U-100 [Novolog U-100 Insulin aspart] 100 unit/mL Solution 1 sliding scale dose SUBCUT USEASDIRECTD insulin degludec [Tresiba FlexTouch U-100] 100 unit/mL (3 mL) insulin pen 70 unit subcut DAILY [place]-3 Fish Oil 300-1,000 mg Capsule 1 cap PO BID magnesium 250 mg Tablet 250 mg PO DAILY cholecalciferol (vitamin D3) [Vitamin D3] 125 mcg (5,000 unit) Tablet 125 mcg PO DAILY zinc 220 mg PO DAILY clotrimazole 1 % cream 1 appl topical BID 14 Days Qty: 45 0RF vitamin B complex Tablet 1 tab PO DAILY budesonide-formoterol [Symbicort] 80-4.5 mcg/actuation HFA aerosol inhaler 2 puff inhalation BID ammonium lactate 12 % cream 1 appl topical BID oxycodone 10 mg tablet 10 mg PO Q4H PRN (Reason: Severe Pain (Scale Score 7-10)) pregabalin 150 mg capsule 150 mg PO TID Qty: 90 0RF atorvastatin 40 mg tablet 40 mg PO BEDTIME losartan 25 mg tablet 25 mg PO DAILY Eliquis 5 mg tablet 5 mg PO BID Qty: 60 0RF turmeric 400 mg capsule PO cranberry conc-ascorbic acid 4,200-20 mg capsule PO magnesium 250 mg tablet 250 mg PO DAILY insulin aspart U-100 [Novolog FlexPen U-100 Insulin] 100 unit/mL (3 mL) insulin pen 100 unit subcut QPM methenamine hippurate 1 gram tablet 1 g PO DAILY 90 Days Qty: 90 1RF ascorbic acid (vitamin C) 1,000 mg tablet 1 g PO DAILY 90 Days Qty: 90 1RF Print Language: [place]ian
[2024-01-03 01:24] LABS: MANUAL DIFF FLAG NO
[2024-01-03] MEDS: oxyCODONE HCl Immed Release 15 MG TABLET PO (01:25)
[2024-01-03 01:27] LABS: Basophils Percent Auto 0.2 % (0-2); Eosinophils Percent Auto 0.2 % (0-4); Hematocrit 34.2 % (42.0-52.0); Hemoglobin 11.2 g/dl (14.0-18.0); Imm Gran Abs Auto 0.04 X10*3/uL (0.00-0.03); Lymphocytes Absolute Auto 0.5 X10*3/uL (1.2-4.9); Mean Corpuscular HGB Conc 32.7 g/dl (31.0-36.0); Mean Corpuscular Hemoglobin 31.1 pg (27.0-33.0); Mean Platelet Volume 9.8 fL (9.4-12.4); Monocytes Absolute Auto 0.4 X10*3/uL (0.1-1.2); Monocytes Percent Auto 8.6 % (2-11); Neutrophils Absolute Auto 3.2 x10*3/uL (2.0-8.3); Platelet Count 152 X10*3/uL (160-400); Red Cell Distribution Width 15.5 % (11.0-16.0); White Blood Count 4.1 X10*3/uL (4.8-10.8)
[2024-01-03 01:41] LABS: Alanine Aminotransferase 27 U/L (0-40); Albumin Level 3.2 g/dL (3.5-5.0); Alkaline Phosphatase 97 U/L (39-117); Anion Gap 15 (12-20); Aspartate Amino Transferase 37 U/L (5-37); Bilirubin Total 0.5 mg/dL (0.0-1.0); Blood Urea Nitrogen 21 mg/dL (9-16); Calcium 9.3 mg/dL (8.4-10.2); Carbon Dioxide 28 mmol/L (22-29); Chloride 100 mmol/L (96-108); Creatinine Clr Calc Pharmacy 58.3; Estimated Glomerular Filt Rate > 60; Glucose Random 108 mg/dL (60-115); Lipase 8 U/L (8-78); Potassium 3.4 mmol/L (3.3-5.1); Sodium 140 mmol/L (135-145); Total Protein 6.5 g/dL (6.5-8.0)
[2024-01-03 02:02] LABS: Glucose, Whole Blood 83 mg/dL (60-115)
--- NOTE | 2024-01-03 02:07 | MHC.EDTECH ---
patient BS 85 given OJ and annmarie villalba
[2024-01-03 03:28] VITALS: BP 130/59; PULSE 79; RESP 12; TEMP 36.4; O2SAT 100
[2024-01-03 03:35] LABS: Appearance Urine Clear; Color Urine Yellow; Glucose Urine UA Negative (Negative); Leukocyte Esterase Urine Negative (Negative); Nitrite Urine Negative (Negative); PH 5.5 (5.0-9.0); Specific Gravity - Urine 1.015 (1.005-1.025); Urine Blood Negative (Negative); Urine Ketones Negative (Negative); Urine Protein Negative (Neg-Trace)
[2024-01-03 03:39] LABS: Bacteria Urine None Seen (None Seen); RBC Urine 0-2 /HPF (0-2); Squamous Epithelial Cell Urine 0-2 /HPF (0-2); WBC Urine 0-5 /HPF (0-5)
[2024-01-03 04:25] LABS: Glucose, Whole Blood 121 mg/dL (60-115)
[2024-01-03 05:32] VITALS: BP 130/59; PULSE 79; RESP 12; TEMP 36.4; O2SAT 100
== END 2024-01-03 05:33 | disposition home or self-care (01) ==
PROVIDERS: Physician Assistant; Emergency Provider Internal Medicine; PCP Internal Medicine
DX: E11.649 Type 2 diabetes mellitus with hypoglycemia without coma (principal); R41.82 Altered mental status, unspecified; R06.02 Shortness of breath; R94.31 Abnormal electrocardiogram [ECG] [EKG]; Z79.4 Long term (current) use of insulin; Z79.899 Other long term (current) drug therapy
CPT/HCPCS: 36415; 80053; 81001; 82947; 83690; 85025; 93005; 99283; 99285

== ENCOUNTER → 2024-01-03 01:00 | Outpatient (BNV) | payer MEDICARE, SELFPAY | PROVIDERS: Emergency Provider Internal Medicine; PCP Internal Medicine; Visit Provider Internal Medicine Cardiovascular Disease | DX: I49.3 Ventricular premature depolarization (principal) | CPT/HCPCS: 93010 ==

== ENCOUNTER 2024-01-08 17:43 | Emergency (ER) | payer MEDICARE, SELFPAY ==
--- NOTE | ~2024-01-08 | CT_ITS ---
CT head/brain wo IV con CLINICAL INFORMATION: Fall COMPARISON: Prior CT November 2023 TECHNIQUE: Department standard protocol. This CT examination was performed using dose optimization techniques as appropriate, variously including the following: *Automated exposure control *Adjustment of mA and/or kV according to patient size (this includes techniques or standardized protocols for targeted exams where dose is matched to indication/reason for exam; i.e. extremities or head) *Use of iterative reconstruction technique DLP: 703 mGy-cm FINDINGS: CEREBRAL HEMISPHERES: There is no evidence of intra-axial or extra-axial mass, hemorrhage or acute infarct. BRAIN PARENCHYMA: Deep white matter and paraventricular hypoattenuation, nonspecific; most likely changes secondary to chronic ischemia due to microvascular angiopathy. SUBDURAL SPACE: No bleed. BASAL GANGLIA AND PINEAL GLAND: Unremarkable VENTRICLES: Symmetric and normal in size. CEREBELLUM AND BRAINSTEM: No space-occupying mass, hemorrhage or acute infarct. CEREBELLOPONTINE ANGLES: No lesion found. ORBITS: No intraorbital mass. VESSELS: Unremarkable SKULL BASE: Unremarkable INCLUDED SINUSES AT SKULL BASE: Clear SKULL AND SKIN: No fracture or bone lesion found. CT/CT head/brain wo IV con IMPRESSION: 1. Deep white matter and periventricular hypoattenuation, nonspecific; most likely sequela of chronic microvascular angiopathy ischemia. 2. No intracranial bleed.
--- NOTE | ~2024-01-08 | XR_ITS ---
EXAMINATION: XR FOOT, RIGHT CLINICAL INFORMATION: Right foot pain COMPARISON: None available. TECHNIQUE: AP, lateral, and oblique views of the right foot. FINDINGS: Cerebral radiodense horizontal lines at the base of the second and third metatarsal raising concern for possible stress fractures.. Alignment is anatomic. Joint spaces are maintained. Mild degenerative osteoarthritic changes involving the metatarsophalangeal and interphalangeal joints. There are vascular calcifications. No radiographic evidence of bone destruction to suggest osteomyelitis. There is a small inferior calcaneal spur. Bone alignments are satisfactory. XR/XR foot RT min 3V IMPRESSION: 1. There are radiodense horizontal lines at the base of the second and third metatarsal raising concern for possible stress fractures. Please correlate with patient's area of tenderness. This can be confirmed by CT scan or MRI if clinically indicated. 2. Underlying mild degenerative osteoarthritis. 3. Heavy vascular calcifications.
[2024-01-08 17:44] VITALS: BP 105/61; PULSE 71; RESP 20; TEMP 37.1; O2SAT 97; BMI 26.6
--- NOTE | 2024-01-08 17:52 | ED.GENADULT ---
HPI - General Adult General Chief complaint: Skin/Abscess/Foreign Body Stated complaint: fell, head inj Time Seen by Provider: 01/08/24 21:01 Source: patient Mode of arrival: ambulatory Limitations: no limitations History of Present Illness HPI narrative: History of paroxysmal AFib on Eliquis apparently had any fall about 3 days ago and hit his forehead to the ground when slumped down no loss of consciousness no nausea no vomiting his superficial abrasion in the right forehead. Today patient went to the wound clinic for chronic nonhealing callus the right heel area also complaining of pain on the dorsum of the foot with slight redness for last few days no fever no chills patient was sent here from the wound clinic for possible cellulitis and head injury been on Eliquis Related Data Home Medications ?Medication ?Instructions ?Recorded ?Confirmed insulin aspart U-100 100 unit/mL 1 sliding scale dose subcut 12/14/20 08/24/23 subcutaneous solution (Novolog USEASDIRECTD U-100 Insulin aspart) ipratropium 20 mcg-albuterol 100 1 puff inhalation TID 12/14/20 08/24/23 mcg/actuation mist for inhalation (Combivent Respimat) multivitamin 1 tab PO DAILY 12/14/20 08/24/23 atorvastatin 40 mg tablet 40 mg PO BEDTIME 06/13/21 08/24/23 insulin degludec 100 unit/mL (3 70 unit subcut DAILY 10/20/22 08/24/23 mL) subcutaneous pen (Tresiba FlexTouch U-100 insulin) budesonide-formoterol HFA 80 2 puff inhalation BID 01/31/23 08/24/23 mcg-4.5 mcg/actuation aerosol inhaler (Symbicort) vitamin B complex 1 tab PO DAILY 01/31/23 08/24/23 losartan 25 mg tablet 25 mg PO DAILY 02/09/23 08/24/23 cholecalciferol (vitamin D3) 125 125 mcg PO DAILY 05/30/23 08/24/23 mcg (5,000 unit) tablet (Vitamin D3) magnesium 250 mg tablet 250 mg PO DAILY 05/30/23 08/24/23 omega-3s 300 [id number] 1 cap PO BID 05/30/23 08/24/23 [id number] oil 1,000 mg capsule ([place]-3 Fish Oil) zinc 220 mg PO DAILY 05/30/23 08/24/23 ammonium lactate 12 % topical cream 1 appl topical BID 08/24/23 08/24/23 oxycodone 10 mg tablet 10 mg PO Q4H PRN Severe Pain 08/25/23 08/25/23 (Scale Score 7-10) cranberry concentrate-ascorbic cap PO 09/25/23 acid 4,200 mg-20 mg capsule insulin aspart U-100 100 unit/mL 100 unit subcut QPM 09/25/23 (3 mL) subcutaneous pen (Novolog FlexPen U-100 Insulin aspart) magnesium 250 mg tablet 250 mg PO DAILY 09/25/23 turmeric 400 mg capsule mg PO 09/25/23 Previous Rx's ?Medication ?Instructions ?Recorded apixaban 5 mg tablet (Eliquis) 5 mg PO BID #60 tabs 02/09/23 isosorbide mononitrate 30 mg 30 mg PO DAILY #30 tabs 06/08/23 tablet,extended release 24 hr clotrimazole 1 % topical cream 1 appl topical BID 2 weeks #45 07/06/23 grams pregabalin 150 mg capsule 150 mg PO TID #90 caps 08/26/23 metoprolol tartrate 50 mg tablet 50 mg PO BID 90 days #180 tabs 08/28/23 ascorbic acid (vitamin C) 1,000 mg 1 g PO DAILY 90 days #90 tabs 09/25/23 tablet methenamine hippurate 1 gram tablet 1 g PO DAILY 90 days #90 tabs 09/25/23 diaper,brief,adult,disposable #120 ea 09/28/23 torsemide 20 mg tablet 20 mg PO DAILY #30 tabs 10/27/23 cephalexin 500 mg capsule 500 mg PO QID 10 days #40 caps 01/08/24 doxycycline hyclate 100 mg tablet 100 mg PO BID #20 tabs 01/08/24 Allergies Allergy/AdvReac Type Severity Reaction Status Date / Time No Known Allergies Allergy Mild N/A Verified 01/08/24 17:50 Review of Systems Review of Systems: Yes all other systems are reviewed and are negative PMFSH Past Medical History Medical History Urinary tract infection due to Pseudomonas aeruginosa Recurrent UTI History of prostate cancer Acute retention of urine Persistent atrial fibrillation COVID-19 vaccine series completed History of cardioversion Hx of Lyme disease Tubular adenoma of colon History of ST elevation myocardial infarction (STEMI) (HFpEF) heart failure with preserved ejection fraction Cardiac pacemaker in situ (~12/2020) Hepatorenal syndrome Symptomatic bradycardia Ventricular bigeminy Thrombocytopenia PVC (premature ventricular contraction) CHF exacerbation Bifascicular block Pancytopenia Prostate CA Myocardial infarct, old CAD (coronary artery disease) HLD (hyperlipidemia) Diabetes HTN (hypertension) Surgical History History of colonoscopy History of cervical spinal surgery History of radical prostatectomy History of left inguinal hernia repair History of total right knee replacement (TKR) History of lumbar discectomy History of cardiac pacemaker (~12/2020) Social History Social History Household Members: Spouse Household Members Other:: 1 Housing: House Are you a primary pet care associate to a significant other at home: No Do you presently have visiting nurse or other home services: Yes Alcohol intake: current Alcohol intake frequency: does not drink Alcohol type: wine Comment: pt refused bed/chair alarm Patient Tobacco Use Status: Former Tobacco user Quit Date: 60 years ago per patient Tobacco use type: Cigarette Years Smoked: 10 Smoked in Last 30 Days: No Advance Directives: Yes Advance Directives on File: Yes Advance Directives Date on File: 01/04/23 Do you have a plan to hurt others: No Plan service: Yes Current occupational status: retired Physical Exam ED Vital Signs: Vital Signs - 24 hr 01/08/24 17:44 01/08/24 22:00 01/08/24 23:04 Temperature 98.7 F 98.2 F 98.2 F Pulse Rate 71 70 70 Respiratory Rate 20 20 20 Blood Pressure 105/61 110/62 110/62 Pulse Oximetry 97 97 97 Oxygen Delivery Method Room Air Room Air Room Air BMI result Body Mass Index 26.6 Appearance: Alert. Oriented X3. No acute distress. Eyes: PERRLA, No Nystagmus ENT: Pharynx normal. Oral Mucosa moist superficial abrasion right forehead Neck: Normal inspection. Neck supple. CVS: Normal heart rate and rhythm. Pulses normal. Respiratory: No respiratory distress. Equal air entry bilateral, no wheezing/rales/rhonchi Abdomen: Soft and nontender. Bowel sounds are present, no mass palpable, no CVA tenderness Skin: Skin warm and dry. Normal skin color. Normal skin turgor. Extremities: No lower extremity edema. No calf tenderness healing callus on the right lateral aspect of the heel tenderness in the dorsum of the foot with slight erythema neurovascular intact Neuro: Oriented X 3. No motor deficit. No sensory deficit.No cerebellar signs , cranial nerves II-XII intact Course Course Course Narrative: This is an RME done by DONTRELL Wiseman: Additional HPI, ROS, PE not included below will be deferred to primary provider. 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 Patient also reports a few days ago he fell, hit his head, no loss of consciousness, he is on Eliquis, wound clinic applied a dressing to the laceration. He reports that he is worried about his head but what is bothering him most is his right foot as he has not been able to walk recently due to increasing pain. Appearance: Alert.? Oriented X3.? No acute cardiopulmonary distress distress.? Head: Normocephalic, + lac w/ dressing to right side of forehead, no step-offs or deformities Neck: Normal inspection.? Neck supple.? CVS: Pulses normal.? Respiratory: No respiratory distress.? Abdomen: Soft and nontender.? Skin: ? Normal skin color. Extremities: 5/5 strength to bilateral upper and lower extremities + chronic wound to right foot dressed in triage Back: No midline tenderness, no C-spine tenderness, full range of motion, No CVA tenderness bilaterally Neuro: Oriented X 3.? No motor deficit.? No sensory deficit. Medications Administered Discontinued Medications Generic Name Dose Route Start Last Admin Trade Name Freq PRN Reason Stop Dose Admin Cephalexin HCl 500 mg 01/08/24 21:35 01/08/24 22:18 Cephalexin 500 Mg Capsule PO 01/08/24 21:36 500 mg ONCE ONE Administration Doxycycline Monohydrate 100 mg 01/08/24 21:35 01/08/24 22:18 Doxycycline Monohydrate 100 Mg Capsule PO 01/08/24 21:36 100 mg ONCE ONE Administration Oxycodone HCl 10 mg 01/08/24 21:35 01/08/24 22:18 Oxycodone Hcl Immed Release 5 Mg Tablet PO 01/08/24 21:36 10 mg ONCE ONE Administration Medical Decision Making Medical Decision Making [facility] Narrative: Patient with cellulitis of the dorsum of the right foot with callus at the heel area which is not infected x-ray showed possible stress fracture but patient did not have any injury labs were stable with white counts are normal will give patient p.o. doxycycline and cephalexin advised to follow with outpatient. CT scan of the head is negative for acute Lab Data [facility] Lab Attestation statement: I reviewed the patient's lab results. 01/08/24 18:13 01/08/24 18:13 Labs: Lab Results 01/08/24 Range/Units 18:13 WBC 5.6 (4.8-10.8) X10*3/uL RBC 3.29 L (4.60-5.80) X10*6/uL Hgb 10.3 L (14.0-18.0) g/dl Hct 31.3 L (42.0-52.0) % MCV 95.1 (80.0-98.0) fL MCH 31.3 (27.0-33.0) pg MCHC 32.9 (31.0-36.0) g/dl RDW 15.7 (11.0-16.0) % Plt Count 154 L (160-400) X10*3/uL MPV 10.0 (9.4-12.4) fL Immature Gran % (Auto) 1.1 H (0.0-0.4) % Neut % (Auto) 67.1 (45-73) % Lymph % (Auto) 20.6 (20-40) % [place] % (Auto) 9.8 (2-11) % Eos % (Auto) 1.2 (0-4) % Baso % (Auto) 0.2 (0-2) % Lymph # (Auto) 1.2 (1.2-4.9) X10*3/uL [place] # (Auto) 0.6 (0.1-1.2) X10*3/uL Eos # (Auto) 0.1 (0.0-0.4) X10*3/uL Baso # (Auto) 0.0 (0.0-0.2) X10*3/uL Abs Immat Gran (auto) 0.06 H (0.00-0.03) X10*3/uL Absolute Neuts (auto) 3.8 (2.0-8.3) x10*3/uL Absolute Nucleated RBC 0.000 (0.0-0.012) X10*3/uL Nucleated RBC % (auto) 0.0 (0.0-0.2) /100WBC ESR 39 H (0-15) MM/HR PT 31.3 H D (11.1-13.3) SEC INR 2.6 H (0.9-1.1) Sodium 143 (135-145) mmol/L Potassium 4.3 D (3.3-5.1) mmol/L Chloride 102 (96-108) mmol/L Carbon Dioxide 30 H (22-29) mmol/L Anion Gap 15 (12-20) BUN 18 H (9-16) mg/dL Creatinine 1.02 (0.5-1.4) mg/dL Estim Creat Clear Calc 48.6 Estimated GFR > 60 Random Glucose 199 H (60-115) mg/dL Calcium 9.0 (8.4-10.2) mg/dL Total Bilirubin 0.6 (0.0-1.0) mg/dL AST 32 (5-37) U/L ALT 26 (0-40) U/L Alkaline Phosphatase 92 (39-117) U/L C-Reactive Protein 2.04 H (< or = 0.50) mg/dL Total Protein 5.9 L (6.5-8.0) g/dL Albumin 3.1 L (3.5-5.0) g/dL Independent Interpretation I performed an independent interpretation of an: CT Scan Radiology Impression Discussion of test interpretation with radiology: I have reviewed the radiologist's reading. Discharge Plan Discharge Clinical Impression: Cellulitis, Minor closed head injury Patient Disposition: Home, Self-Care Instructions: Cellulitis (ED), Head Injury (ED) Additional Instructions: Keep right foot elevated Care and cautions as advised Start taking antibiotics Report to the ER/PCP if worsening of the redness or pain in the right foot Prescriptions: New doxycycline hyclate 100 mg tablet 100 mg PO BID Qty: 20 0RF cephalexin 500 mg capsule 500 mg PO QID 10 Days Qty: 40 0RF No Action isosorbide mononitrate 30 mg tablet extended release 24 hr 30 mg PO DAILY Qty: 30 6RF metoprolol tartrate 50 mg tablet 50 mg PO BID 90 Days Qty: 180 2RF (DME) diaper,brief,adult,disposable Misc See Rx Instructions .ROUTE .MEDSUPPLY Qty: 120 4RF Rx Instructions: As directed - 4 per day torsemide 20 mg tablet 20 mg PO DAILY Qty: 30 5RF Combivent Respimat 20-100 mcg/actuation mist 1 puff inhalation TID multivitamin Tablet 1 tab PO DAILY insulin aspart U-100 [Novolog U-100 Insulin aspart] 100 unit/mL Solution 1 sliding scale dose SUBCUT USEASDIRECTD insulin degludec [Tresiba FlexTouch U-100] 100 unit/mL (3 mL) insulin pen 70 unit subcut DAILY Alum [place]-3 Fish Oil 300-1,000 mg Capsule 1 cap PO BID magnesium 250 mg Tablet 250 mg PO DAILY cholecalciferol (vitamin D3) [Vitamin D3] 125 mcg (5,000 unit) Tablet 125 mcg PO DAILY zinc 220 mg PO DAILY clotrimazole 1 % cream 1 appl topical BID 14 Days Qty: 45 0RF vitamin B complex Tablet 1 tab PO DAILY budesonide-formoterol [Symbicort] 80-4.5 mcg/actuation HFA aerosol inhaler 2 puff inhalation BID ammonium lactate 12 % cream 1 appl topical BID oxycodone 10 mg tablet 10 mg PO Q4H PRN (Reason: Severe Pain (Scale Score 7-10)) pregabalin 150 mg capsule 150 mg PO TID Qty: 90 0RF atorvastatin 40 mg tablet 40 mg PO BEDTIME losartan 25 mg tablet 25 mg PO DAILY Eliquis 5 mg tablet 5 mg PO BID Qty: 60 0RF turmeric 400 mg capsule PO cranberry conc-ascorbic acid 4,200-20 mg capsule PO magnesium 250 mg tablet 250 mg PO DAILY insulin aspart U-100 [Novolog FlexPen U-100 Insulin] 100 unit/mL (3 mL) insulin pen 100 unit subcut QPM methenamine hippurate 1 gram tablet 1 g PO DAILY 90 Days Qty: 90 1RF ascorbic acid (vitamin C) 1,000 mg tablet 1 g PO DAILY 90 Days Qty: 90 1RF Interventions: ED Discharge Assessment Last Done: 01/08/24 23:04 Discharge Date/Time: 01/08/24 23:05 Print Language: [place] Citizen
[2024-01-08 18:23] LABS: MANUAL DIFF FLAG NO
[2024-01-08 18:25] LABS: Basophils Percent Auto 0.2 % (0-2); Eosinophils Absolute Auto 0.1 X10*3/uL (0.0-0.4); Eosinophils Percent Auto 1.2 % (0-4); Hematocrit 31.3 % (42.0-52.0); Hemoglobin 10.3 g/dl (14.0-18.0); Imm Gran Abs Auto 0.06 X10*3/uL (0.00-0.03); Imm Gran Pct Auto 1.1 % (0.0-0.4); Lymphocytes Absolute Auto 1.2 X10*3/uL (1.2-4.9); Lymphocytes Percent Auto 20.6 % (20-40); Mean Corpuscular HGB Conc 32.9 g/dl (31.0-36.0); Mean Corpuscular Hemoglobin 31.3 pg (27.0-33.0); Mean Corpuscular Volume 95.1 fL (80.0-98.0); Monocytes Absolute Auto 0.6 X10*3/uL (0.1-1.2); Monocytes Percent Auto 9.8 % (2-11); Neutrophils Absolute Auto 3.8 x10*3/uL (2.0-8.3); Neutrophils Percent Auto 67.1 % (45-73); Platelet Count 154 X10*3/uL (160-400); Red Blood Count 3.29 X10*6/uL (4.60-5.80); Red Cell Distribution Width 15.7 % (11.0-16.0); White Blood Count 5.6 X10*3/uL (4.8-10.8)
[2024-01-08 18:39] LABS: Alanine Aminotransferase 26 U/L (0-40); Albumin Level 3.1 g/dL (3.5-5.0); Alkaline Phosphatase 92 U/L (39-117); Anion Gap 15 (12-20); Aspartate Amino Transferase 32 U/L (5-37); Bilirubin Total 0.6 mg/dL (0.0-1.0); Blood Urea Nitrogen 18 mg/dL (9-16); C Reactive Protein 2.04 mg/dL (< or = 0.50); Carbon Dioxide 30 mmol/L (22-29); Chloride 102 mmol/L (96-108); Creatinine Clr Calc Pharmacy 48.6; Estimated Glomerular Filt Rate > 60; Glucose Random 199 mg/dL (60-115); Potassium 4.3 mmol/L (3.3-5.1); Sodium 143 mmol/L (135-145); Total Protein 5.9 g/dL (6.5-8.0)
[2024-01-08 18:50] LABS: INTERNATIONAL NORM RATIO 2.6 (0.9-1.1); Prothrombin Time 31.3 SEC (11.1-13.3)
[2024-01-08 19:29] LABS: Erythrocyte Sedimentation Rate 39 MM/HR (0-15)
[2024-01-08 22:00] VITALS: BP 110/62; PULSE 70; RESP 20; TEMP 36.8; O2SAT 97
[2024-01-08] MEDS: Doxycycline Monohydrate 100 MG CAPSULE PO (22:18)
[2024-01-08] MEDS: cephALEXin 500 MG CAPSULE PO (22:18)
[2024-01-08] MEDS: oxyCODONE HCl Immed Release 5 MG TABLET 10 MG PO (22:18)
[2024-01-08 23:04] VITALS: BP 110/62; PULSE 70; RESP 20; TEMP 36.8; O2SAT 97
== END 2024-01-08 23:05 | disposition home or self-care (01) ==
PROVIDERS: Physician Assistant; Emergency Provider Internal Medicine; PCP Internal Medicine
DX: L03.115 Cellulitis of right lower limb (principal); S00.81XA Abrasion of other part of head, initial encounter; W18.30XA Fall on same level, unspecified, initial encounter; Y93.9 Activity, unspecified; Y92.9 Unspecified place or not applicable; Y99.9 Unspecified external cause status; Z79.899 Other long term (current) drug therapy; I48.91 Unspecified atrial fibrillation; Z79.01 Long term (current) use of anticoagulants
CPT/HCPCS: 36415; 70450; 73630; 80053; 85025; 85610; 85652; 86140; 99284

== ENCOUNTER 2024-01-17 13:10 | Inpatient (IN) | payer MEDICARE, SELFPAY ==
--- NOTE | ~2024-01-17 | XR_ITS ---
EXAMINATION: XR HUMERUS, LEFT CLINICAL INFORMATION: Swelling COMPARISON: None available. TECHNIQUE: AP and lateral views of the left humerus. FINDINGS: Generalized nonspecific soft tissue swelling. There is no underlying acute bony findings. No osteomyelitis. Generalized spurring about the elbow joint. No soft tissue air. Moderate degeneration of glenohumeral joint. XR/XR humerus LT IMPRESSION: Nonspecific soft tissue swelling as above. No acute findings.
--- NOTE | ~2024-01-17 | XR_ITS ---
EXAMINATION: XR chest 1V CLINICAL INFORMATION: Shortness of breath COMPARISON: 11/06/2023 TECHNIQUE: Single portable frontal view. Tubes and lines: Dual electrode cardiac device embedded in the left chest wall unchanged. Lungs and pleura: Diminished lung volume, redemonstration of mild bibasilar mild infiltrates left more than right.. Heart and mediastinum: Heart and mediastinum are widened exaggerated by AP technique unchanged.. Bones/soft tissue: Skeletal structures included are normal for patient's age. XR/XR chest 1V IMPRESSION: 1. Mild bibasilar infiltrates left more than right. 2. Diminished lung volume. 3. Widened mediastinum exaggerated by AP technique unchanged.
[2024-01-17 13:16] VITALS: BP 100/60; BP 94/52; PULSE 69; PULSE 82; RESP 16; TEMP 36.4; O2SAT 94; O2SAT 95; BMI 29.5
--- NOTE | 2024-01-17 13:19 | ECG_ITS ---
Test Reason : ALTERED/FOUND UNRESPONSIVE Blood Pressure : / mmHG Vent. Rate : 074 BPM Atrial Rate : 065 BPM P-R Int : 000 ms QRS Dur : 196 ms QT Int : 490 ms P-R-T Axes : 000 -67 104 degrees QTc Int : 543 ms Ventricular-paced rhythm with occasional atrial-paced complexes and with frequent Premature ventricular complexes Abnormal ECG When compared with ECG of 03-JAN-2024 01:00, Vent. rate has decreased BY 6 BPM Referred By: Mena Jin Electronically Signed By:Peter Viera
--- NOTE | 2024-01-17 13:20 | PC.NURSE ---
pt biba by from home after being found unconscious/unresponsive by in recliner chair. upon EMS arrival - POC = 40mg/dL. EMS administered 25g of D10 in 18gIV in the left AC. POC post medication administration = 160mg/dL. upon EMS arrival to ED - pt is a&ox4. vss and up to date aside from being slightly hypotensive. 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 repeat POC = 93mg/dL. pt c/o left shoulder pain. deformities noted in clavicle area. multiple staged healing/bruising/skin tears noted throughout body. pt unaware of if he fell or not recently. pt states he is unable to recall any part of today up until arriving to ED. 3+ pitting edema noted in LE bilaterally. swelling/bruising noted in UE as well. no sob/wob noted. respirations even and unlabored. pt seen by ED provider/aware of plan of care at this time. call pal placed within reach.
--- NOTE | 2024-01-17 13:24 | ED_ITS ---
HPI - General Adult General Chief complaint: Recheck/Abnormal Lab/Rx Stated complaint: FOUND UNCONSCIOUS, HYPOGLYCEMIC BS 157 LIANA PER EMS Time Seen by Provider: 01/17/24 13:19 Source: patient and EMS Mode of arrival: EMS History of Present Illness ED Provider: Dr Jin HPI narrative: 88-year-old male with multiple medical comorbidities presents via EMS after found him unconscious and unresponsive in his recliner. On arrival EMS reports that patient's glucose was 40, they gave D10 and patient improved to 160. Patient denies any shortness of breath/chest pain and denies any abdominal pain/nausea/vomiting/diarrhea. Patient confirms he is on blood thinners. Related Data Home Medications ?Medication ?Instructions ?Recorded ?Confirmed insulin aspart U-100 100 unit/mL 1 sliding scale dose subcut 12/14/20 08/24/23 subcutaneous solution (Novolog USEASDIRECTD U-100 Insulin aspart) ipratropium 20 mcg-albuterol 100 1 puff inhalation TID 12/14/20 08/24/23 mcg/actuation mist for inhalation (Combivent Respimat) multivitamin 1 tab PO DAILY 12/14/20 08/24/23 atorvastatin 40 mg tablet 40 mg PO BEDTIME 06/13/21 08/24/23 insulin degludec 100 unit/mL (3 70 unit subcut DAILY 10/20/22 08/24/23 mL) subcutaneous pen (Tresiba FlexTouch U-100 insulin) budesonide-formoterol HFA 80 2 puff inhalation BID 01/31/23 08/24/23 mcg-4.5 mcg/actuation aerosol inhaler (Symbicort) vitamin B complex 1 tab PO DAILY 01/31/23 08/24/23 losartan 25 mg tablet 25 mg PO DAILY 02/09/23 08/24/23 cholecalciferol (vitamin D3) 125 125 mcg PO DAILY 05/30/23 08/24/23 mcg (5,000 unit) tablet (Vitamin D3) magnesium 250 mg tablet 250 mg PO DAILY 05/30/23 08/24/23 omega-3s 300 [id number]-[id number] 1 cap PO BID 05/30/23 08/24/23 [id number] oil 1,000 mg capsule ([place]-3 Fish Oil) zinc 220 mg PO DAILY 05/30/23 08/24/23 ammonium lactate 12 % topical cream 1 appl topical BID 08/24/23 08/24/23 oxycodone 10 mg tablet 10 mg PO Q4H PRN Severe Pain 08/25/23 08/25/23 (Scale Score 7-10) cranberry concentrate-ascorbic cap PO 09/25/23 acid 4,200 mg-20 mg capsule insulin aspart U-100 100 unit/mL 100 unit subcut QPM 09/25/23 (3 mL) subcutaneous pen (Novolog FlexPen U-100 Insulin aspart) magnesium 250 mg tablet 250 mg PO DAILY 09/25/23 turmeric 400 mg capsule mg PO 09/25/23 Previous Rx's ?Medication ?Instructions ?Recorded apixaban 5 mg tablet (Eliquis) 5 mg PO BID #60 tabs 02/09/23 isosorbide mononitrate 30 mg 30 mg PO DAILY #30 tabs 06/08/23 tablet,extended release 24 hr clotrimazole 1 % topical cream 1 appl topical BID 2 weeks #45 07/06/23 grams pregabalin 150 mg capsule 150 mg PO TID #90 caps 08/26/23 metoprolol tartrate 50 mg tablet 50 mg PO BID 90 days #180 tabs 08/28/23 ascorbic acid (vitamin C) 1,000 mg 1 g PO DAILY 90 days #90 tabs 09/25/23 tablet methenamine hippurate 1 gram tablet 1 g PO DAILY 90 days #90 tabs 09/25/23 diaper,brief,adult,disposable #120 ea 09/28/23 torsemide 20 mg tablet 20 mg PO DAILY #30 tabs 10/27/23 cephalexin 500 mg capsule 500 mg PO QID 10 days #40 caps 01/08/24 doxycycline hyclate 100 mg tablet 100 mg PO BID #20 tabs 01/08/24 Allergies Allergy/AdvReac Type Severity Reaction Status Date / Time No Known Allergies Allergy Mild N/A Verified 01/17/24 13:17 Review of Systems 2 Review of Systems: Pertinent positives and negatives as stated in HPI [facility] Past Medical History Source: nursing notes reviewed Medical History Urinary tract infection due to Pseudomonas aeruginosa Recurrent UTI History of prostate cancer Acute retention of urine Persistent atrial fibrillation COVID-19 vaccine series completed History of cardioversion Hx of Lyme disease Tubular adenoma of colon History of ST elevation myocardial infarction (STEMI) (HFpEF) heart failure with preserved ejection fraction Cardiac pacemaker in situ (~12/2020) Hepatorenal syndrome Symptomatic bradycardia Ventricular bigeminy Thrombocytopenia PVC (premature ventricular contraction) CHF exacerbation Bifascicular block Pancytopenia Prostate CA Myocardial infarct, old CAD (coronary artery disease) HLD (hyperlipidemia) Diabetes HTN (hypertension) Surgical History History of colonoscopy History of cervical spinal surgery History of radical prostatectomy History of left inguinal hernia repair History of total right knee replacement (TKR) History of lumbar discectomy History of cardiac pacemaker (~12/2020) Social History Social History Household Members: Spouse Household Members Other:: 1 Housing: House Are you a primary healthcare facility administrator to a significant other at home: No Do you presently have visiting nurse or other home services: Yes Alcohol intake: current Alcohol intake frequency: does not drink Alcohol type: wine Comment: pt refused bed/chair alarm Patient Tobacco Use Status: Former Tobacco user Quit Date: 60 years ago per patient Tobacco use type: Cigarette Years Smoked: 10 Smoked in Last 30 Days: No Use of substances other than those prescribed or required for medical reasons: No Advance Directives: Yes Advance Directives Information Provided: No Advance Directives on File: No Advance Directives Date on File: 01/04/23 Do you have a plan to hurt others: No Plan service: Yes Current occupational status: retired Physical Exam ED Vital Signs: Vital Signs - 24 hr 01/17/24 13:16 Temperature 97.5 F Pulse Rate 69 Respiratory Rate 16 Blood Pressure 94/52 L Pulse Oximetry 95 Oxygen Delivery Method Room Air BMI result Body Mass Index 29.5 VITAL SIGNS: Reviewed. GENERAL: Well developed, well nourished, in no acute distress. HEAD: Normocephalic/atraumatic EYES: PERRLA, EOMI EARS: Ext canals without abnormality NOSE: Nares patent bilateral OROPHARYNX: no oral lesions noted, posterior pharynx clear NECK: Supple, no adenopathy LUNGS: Bibasilar rales noted with mild tachypnea SpO2<95> CARDIOVASCULAR: Regular rate and rhythm without noted murmurs, no JVD extensive bilateral lower extremity 2 to 3+ pitting edema up to the knees ABDOMEN: Soft, non-tender, non-distended with bowel sounds. MUSCULOSKELETAL: No tenderness, deformities, or effusions noted on gross inspection. EXTREMITIES: No cyanosis, clubbing or edema. LUE: Noted swelling within the left upper extremity, appears to be full range of motion at the elbow and wrist with good strong hand fashion artist no overlying erythema or induration SKIN: Inspection of the skin reveals no rashes NEUROLOGIC: Alert and oriented x 4. Strength and sensation to light touch were grossly intact x 4. Medical Decision Making Medical Decision Making [facility] Narrative: 88-year-old male with history and clinical presentation, DDX: Hypoglycemia, CHF exacerbation, possible DVT in left upper extremity, possible occult fracture in left upper extremity. I reviewed all investigations and hematologic indices without leukocytosis and patient has a stable normocytic anemia likely of chronic disease as well as chronically stable thrombocytopenia. Coagulation studies are elevated consistent with patient's underlying use of chronic anticoagulation. VBG is not consistent with respiratory acidosis or hypercapnia. Chemistry indices negative for ALPA and there are no electrolyte derangements, serial point of care glucose levels are stable. Urinalysis negative for UTI or hematuria. 1448: I suspect infection given chest x-ray identified as mild bibasilar infiltrates and will initiate antibiotics though patient has no leukocytosis. BNP is also noted to be elevated which coincides with clinical findings. 1544: I discussed case with inpatient hospitalist who accepts admission. Differential Diagnosis Differential Diagnoses: The differential diagnosis associated with the presentation includes Please see the discussion above Admission/Observation Consideration of admission/observation: Escalation of care including admission/observation considered Please see the discussion above Consult Healthcare Provider Management of the patient was discussed with: Hospitalist Please see the discussion above Lab Data MDM Lab Attestation statement: I reviewed the patient's lab results. Please see the discussion above 01/17/24 13:29 01/17/24 13:29 Labs: Lab Results 01/17/24 01/17/24 01/17/24 Range/Units 13:16 13:29 13:30 WBC 7.0 (4.8-10.8) X10*3/uL RBC 3.13 L (4.60-5.80) X10*6/uL Hgb 9.5 L (14.0-18.0) g/dl Hct 28.7 L (42.0-52.0) % MCV 91.7 (80.0-98.0) fL MCH 30.4 (27.0-33.0) pg MCHC 33.1 (31.0-36.0) g/dl RDW 15.6 (11.0-16.0) % Plt Count 120 L (160-400) X10*3/uL MPV 10.0 (9.4-12.4) fL Immature Gran % (Auto) 1.3 H (0.0-0.4) % Neut % (Auto) 83.3 H (45-73) % Lymph % (Auto) 7.3 L (20-40) % [place] % (Auto) 7.2 (2-11) % Eos % (Auto) 0.6 (0-4) % Baso % (Auto) 0.3 (0-2) % Lymph # (Auto) 0.5 L (1.2-4.9) X10*3/uL [place] # (Auto) 0.5 (0.1-1.2) X10*3/uL Eos # (Auto) 0.0 (0.0-0.4) X10*3/uL Baso # (Auto) 0.0 (0.0-0.2) X10*3/uL Abs Immat Gran (auto) 0.09 H (0.00-0.03) X10*3/uL Absolute Neuts (auto) 5.8 (2.0-8.3) x10*3/uL Absolute Nucleated RBC 0.000 (0.0-0.012) X10*3/uL Nucleated RBC % (auto) 0.0 (0.0-0.2) /100WBC Smear Tech's Comments VERIFIED PT 30.8 H (11.1-13.3) SEC INR 2.5 H (0.9-1.1) VBG pH (7.32-7.43) VBG pCO2 mmHg VBG pO2 mmHg VBG HCO3 (22-26) mmol/L VBG O2 Saturation % VBG Base Excess mmol/L Sodium 138 (135-145) mmol/L Potassium 3.3 D (3.3-5.1) mmol/L Chloride 102 (96-108) mmol/L Carbon Dioxide 28 (22-29) mmol/L Anion Gap 11 L (12-20) BUN 30 H (9-16) mg/dL Creatinine 1.13 (0.5-1.4) mg/dL Estim Creat Clear Calc 48.9 Estimated GFR > 60 POC Glucose 93 (60-115) mg/dL Random Glucose 91 (60-115) mg/dL Lactic Acid 0.9 (0.5-2.0) mmol/L Calcium 8.5 (8.4-10.2) mg/dL Magnesium 1.9 (1.6-2.6) mg/dL Total Bilirubin 0.6 (0.0-1.0) mg/dL AST 49 H (5-37) U/L ALT 30 (0-40) U/L Alkaline Phosphatase 100 (39-117) U/L Troponin I High Sens 27.3 (<3.5-35.0) ng/L B-Natriuretic Peptide 250 H (<100) pg/mL Total Protein 5.5 L (6.5-8.0) g/dL Albumin 2.7 L (3.5-5.0) g/dL Urine Color Urine Appearance Urine pH (5.0-9.0) Ur Specific [place] (1.005-1.025) Urine Protein (Neg-Trace) mg/dL Urine Glucose (UA) (Negative) mg/dL Urine Ketones (Negative) mg/dL Urine Blood (Negative) Urine Nitrite (Negative) Ur Leukocyte Esterase (Negative) Urine RBC (0-2) /HPF Urine WBC (0-5) /HPF Ur Squamous Epith Cells (0-2) /HPF Urine Bacteria (None Seen) Hyaline Casts (0-2) /LPF 01/17/24 01/17/24 01/17/24 Range/Units 13:35 13:40 14:21 WBC (4.8-10.8) X10*3/uL RBC (4.60-5.80) X10*6/uL Hgb (14.0-18.0) g/dl Hct (42.0-52.0) % MCV (80.0-98.0) fL MCH (27.0-33.0) pg MCHC (31.0-36.0) g/dl RDW (11.0-16.0) % Plt Count (160-400) X10*3/uL MPV (9.4-12.4) fL Immature Gran % (Auto) (0.0-0.4) % Neut % (Auto) (45-73) % Lymph % (Auto) (20-40) % [place] % (Auto) (2-11) % Eos % (Auto) (0-4) % Baso % (Auto) (0-2) % Lymph # (Auto) (1.2-4.9) X10*3/uL [place] # (Auto) (0.1-1.2) X10*3/uL Eos # (Auto) (0.0-0.4) X10*3/uL Baso # (Auto) (0.0-0.2) X10*3/uL Abs Immat Gran (auto) (0.00-0.03) X10*3/uL Absolute Neuts (auto) (2.0-8.3) x10*3/uL Absolute Nucleated RBC (0.0-0.012) X10*3/uL Nucleated RBC % (auto) (0.0-0.2) /100WBC Smear Tech's Comments PT (11.1-13.3) SEC INR (0.9-1.1) VBG pH 7.45 H (7.32-7.43) VBG pCO2 45 mmHg VBG pO2 82 mmHg VBG HCO3 31 H (22-26) mmol/L VBG O2 Saturation 97.0 % VBG Base Excess 6.8 mmol/L Sodium (135-145) mmol/L Potassium (3.3-5.1) mmol/L Chloride (96-108) mmol/L Carbon Dioxide (22-29) mmol/L Anion Gap (12-20) BUN (9-16) mg/dL Creatinine (0.5-1.4) mg/dL Estim Creat Clear Calc Estimated GFR POC Glucose 83 116 H (60-115) mg/dL Random Glucose (60-115) mg/dL Lactic Acid (0.5-2.0) mmol/L Calcium (8.4-10.2) mg/dL Magnesium (1.6-2.6) mg/dL Total Bilirubin (0.0-1.0) mg/dL AST (5-37) U/L ALT (0-40) U/L Alkaline Phosphatase (39-117) U/L Troponin I High Sens (<3.5-35.0) ng/L B-Natriuretic Peptide (<100) pg/mL Total Protein (6.5-8.0) g/dL Albumin (3.5-5.0) g/dL Urine Color Urine Appearance Urine pH (5.0-9.0) Ur Specific [place] (1.005-1.025) Urine Protein (Neg-Trace) mg/dL Urine Glucose (UA) (Negative) mg/dL Urine Ketones (Negative) mg/dL Urine Blood (Negative) Urine Nitrite (Negative) Ur Leukocyte Esterase (Negative) Urine RBC (0-2) /HPF Urine WBC (0-5) /HPF Ur Squamous Epith Cells (0-2) /HPF Urine Bacteria (None Seen) Hyaline Casts (0-2) /LPF 01/17/24 Range/Units 14:38 WBC (4.8-10.8) X10*3/uL RBC (4.60-5.80) X10*6/uL Hgb (14.0-18.0) g/dl Hct (42.0-52.0) % MCV (80.0-98.0) fL MCH (27.0-33.0) pg MCHC (31.0-36.0) g/dl RDW (11.0-16.0) % Plt Count (160-400) X10*3/uL MPV (9.4-12.4) fL Immature Gran % (Auto) (0.0-0.4) % Neut % (Auto) (45-73) % Lymph % (Auto) (20-40) % [place] % (Auto) (2-11) % Eos % (Auto) (0-4) % Baso % (Auto) (0-2) % Lymph # (Auto) (1.2-4.9) X10*3/uL [place] # (Auto) (0.1-1.2) X10*3/uL Eos # (Auto) (0.0-0.4) X10*3/uL Baso # (Auto) (0.0-0.2) X10*3/uL Abs Immat Gran (auto) (0.00-0.03) X10*3/uL Absolute Neuts (auto) (2.0-8.3) x10*3/uL Absolute Nucleated RBC (0.0-0.012) X10*3/uL Nucleated RBC % (auto) (0.0-0.2) /100WBC Smear Tech's Comments PT (11.1-13.3) SEC INR (0.9-1.1) VBG pH (7.32-7.43) VBG pCO2 mmHg VBG pO2 mmHg VBG HCO3 (22-26) mmol/L VBG O2 Saturation % VBG Base Excess mmol/L Sodium (135-145) mmol/L Potassium (3.3-5.1) mmol/L Chloride (96-108) mmol/L Carbon Dioxide (22-29) mmol/L Anion Gap (12-20) BUN (9-16) mg/dL Creatinine (0.5-1.4) mg/dL Estim Creat Clear Calc Estimated GFR POC Glucose (60-115) mg/dL Random Glucose (60-115) mg/dL Lactic Acid (0.5-2.0) mmol/L Calcium (8.4-10.2) mg/dL Magnesium (1.6-2.6) mg/dL Total Bilirubin (0.0-1.0) mg/dL AST (5-37) U/L ALT (0-40) U/L Alkaline Phosphatase (39-117) U/L Troponin I High Sens (<3.5-35.0) ng/L B-Natriuretic Peptide (<100) pg/mL Total Protein (6.5-8.0) g/dL Albumin (3.5-5.0) g/dL Urine Color Yellow Urine Appearance Clear Urine pH 5.0 (5.0-9.0) Ur Specific [place] 1.015 (1.005-1.025) Urine Protein Trace (Neg-Trace) mg/dL Urine Glucose (UA) Negative (Negative) mg/dL Urine Ketones Negative (Negative) mg/dL Urine Blood Trace H (Negative) Urine Nitrite Negative (Negative) Ur Leukocyte Esterase Small (1+) H (Negative) Urine RBC 0-2 (0-2) /HPF Urine WBC 0-5 (0-5) /HPF Ur Squamous Epith Cells 0-2 (0-2) /HPF Urine Bacteria None Seen (None Seen) Hyaline Casts 3-5 (0-2) /LPF Independent Interpretation I performed an independent interpretation of an: EKG Interpretation: Ventricular paced rhythm, HR-74, no STEMI, QRS/QTC prolonged consistent with underlying rhythm. Radiology Impression Discussion of test interpretation with radiology: I have reviewed the radiologist's reading. Radiologist Impression: Please see the discussion above External Record Review External record reviewed: Outpatient record and Prior outpatient labs Chronic Conditions Patient?s care impacted by: Diabetes Chronic anticoagulation Critical Care Time Critical Care Time Critical Care Time: Yes Total Critical Care Time: 60 Attestation: I personally attest to this time spent taking care of the patient. Discharge Plan Discharge Clinical Impression: Pneumonia, CHF exacerbation Patient Disposition: Admitted As Inpatient Prescriptions: No Action isosorbide mononitrate 30 mg tablet extended release 24 hr 30 mg PO DAILY Qty: 30 6RF metoprolol tartrate 50 mg tablet 50 mg PO BID 90 Days Qty: 180 2RF (DME) diaper,brief,adult,disposable Misc See Rx Instructions .ROUTE .MEDSUPPLY Qty: 120 4RF Rx Instructions: As directed - 4 per day torsemide 20 mg tablet 20 mg PO DAILY Qty: 30 5RF Combivent Respimat 20-100 mcg/actuation mist 1 puff inhalation TID multivitamin Tablet 1 tab PO DAILY insulin aspart U-100 [Novolog U-100 Insulin aspart] 100 unit/mL Solution 1 sliding scale dose SUBCUT USEASDIRECTD insulin degludec [Tresiba FlexTouch U-100] 100 unit/mL (3 mL) insulin pen 70 unit subcut DAILY [place]-3 Fish Oil 300-1,000 mg Capsule 1 cap PO BID magnesium 250 mg Tablet 250 mg PO DAILY cholecalciferol (vitamin D3) [Vitamin D3] 125 mcg (5,000 unit) Tablet 125 mcg PO DAILY zinc 220 mg PO DAILY clotrimazole 1 % cream 1 appl topical BID 14 Days Qty: 45 0RF vitamin B complex Tablet 1 tab PO DAILY budesonide-formoterol [Symbicort] 80-4.5 mcg/actuation HFA aerosol inhaler 2 puff inhalation BID ammonium lactate 12 % cream 1 appl topical BID oxycodone 10 mg tablet 10 mg PO Q4H PRN (Reason: Severe Pain (Scale Score 7-10)) pregabalin 150 mg capsule 150 mg PO TID Qty: 90 0RF doxycycline hyclate 100 mg tablet 100 mg PO BID Qty: 20 0RF cephalexin 500 mg capsule 500 mg PO QID 10 Days Qty: 40 0RF atorvastatin 40 mg tablet 40 mg PO BEDTIME losartan 25 mg tablet 25 mg PO DAILY Eliquis 5 mg tablet 5 mg PO BID Qty: 60 0RF turmeric 400 mg capsule PO cranberry conc-ascorbic acid 4,200-20 mg capsule PO magnesium 250 mg tablet 250 mg PO DAILY insulin aspart U-100 [Novolog FlexPen U-100 Insulin] 100 unit/mL (3 mL) insulin pen 100 unit subcut QPM methenamine hippurate 1 gram tablet 1 g PO DAILY 90 Days Qty: 90 1RF ascorbic acid (vitamin C) 1,000 mg tablet 1 g PO DAILY 90 Days Qty: 90 1RF Print Language: Colombian Sepsis Bolus Exclusion Sepsis Bolus Exclusion This patient met severe sepsis criteria due to the following condition(s):: H ypotension In my clinical judgement the administration of 30 ml/kg of crystalloid would be detrimental to this patient due to the patient's following conditions:: Concern for fluid overload Replace the 30 mls/kg with (Zero amount not acceptable and all fluids for severe sepsis must be given at GREATER than 125 mls/hr) *Note: One of the arenas must be documented Crystalloids amount given in mls: (rate must be at least 150cc/hr): 500
--- NOTE | 2024-01-17 13:40 | PC.NURSE ---
repeat POC = 83mg/dL. Dr. Jin notified/aware.
[2024-01-17 13:41] LABS: Basophils Percent Auto 0.3 % (0-2); Eosinophils Percent Auto 0.6 % (0-4); Hematocrit 28.7 % (42.0-52.0); Hemoglobin 9.5 g/dl (14.0-18.0); Imm Gran Abs Auto 0.09 X10*3/uL (0.00-0.03); Imm Gran Pct Auto 1.3 % (0.0-0.4); Lymphocytes Absolute Auto 0.5 X10*3/uL (1.2-4.9); Lymphocytes Percent Auto 7.3 % (20-40); MANUAL DIFF FLAG SCAN; Mean Corpuscular HGB Conc 33.1 g/dl (31.0-36.0); Mean Corpuscular Hemoglobin 30.4 pg (27.0-33.0); Mean Corpuscular Volume 91.7 fL (80.0-98.0); Monocytes Absolute Auto 0.5 X10*3/uL (0.1-1.2); Monocytes Percent Auto 7.2 % (2-11); Neutrophils Absolute Auto 5.8 x10*3/uL (2.0-8.3); Neutrophils Percent Auto 83.3 % (45-73); Platelet Count 120 X10*3/uL (160-400); Red Blood Count 3.13 X10*6/uL (4.60-5.80); Red Cell Distribution Width 15.6 % (11.0-16.0); SCAN SMEAR FLAG 1
[2024-01-17 13:44] LABS: Glucose, Whole Blood 83 mg/dL (60-115)
[2024-01-17 13:44] LABS: Glucose, Whole Blood 93 mg/dL (60-115)
--- NOTE | 2024-01-17 13:44 | PC.NURSE ---
pt provided w/ orange juice/sugar packets/saltine crackers. will reobtain POC.
[2024-01-17 13:45] LABS: VBG Base Excess 6.8 mmol/L; VBG HCO3 31 mmol/L (22-26); VBG pCO2 45 mmHg; VBG pH 7.45 (7.32-7.43); VBG pO2 82 mmHg
[2024-01-17 13:46] LABS: Venous Blood Gas Refer to POC result
[2024-01-17 13:48] LABS: INTERNATIONAL NORM RATIO 2.5 (0.9-1.1); Prothrombin Time 30.8 SEC (11.1-13.3)
--- NOTE | 2024-01-17 13:48 | PC.NURSE ---
xray being completed at this time.
[2024-01-17 13:51] LABS: Lactic Acid 0.9 mmol/L (0.5-2.0)
[2024-01-17 13:56] LABS: Alanine Aminotransferase 30 U/L (0-40); Albumin Level 2.7 g/dL (3.5-5.0); Alkaline Phosphatase 100 U/L (39-117); Anion Gap 11 (12-20); Aspartate Amino Transferase 49 U/L (5-37); Bilirubin Total 0.6 mg/dL (0.0-1.0); Blood Urea Nitrogen 30 mg/dL (9-16); Calcium 8.5 mg/dL (8.4-10.2); Carbon Dioxide 28 mmol/L (22-29); Chloride 102 mmol/L (96-108); Creatinine Clr Calc Pharmacy 48.9; Estimated Glomerular Filt Rate > 60; Glucose Random 91 mg/dL (60-115); Magnesium 1.9 mg/dL (1.6-2.6); Potassium 3.3 mmol/L (3.3-5.1); Sodium 138 mmol/L (135-145); Total Protein 5.5 g/dL (6.5-8.0)
[2024-01-17 14:02] LABS: B Type Natriuretic Peptide 250 pg/mL (<100)
[2024-01-17 14:03] LABS: Troponin-I High Sensitivity 27.3 ng/L (<3.5-35.0)
[2024-01-17 14:08] LABS: SLIDE REVIEW VERIFIED
[2024-01-17 14:27] LABS: Glucose, Whole Blood 116 mg/dL (60-115)
--- NOTE | 2024-01-17 14:39 | PC.NURSE ---
dustin catheter applied - UA obtained/sent to lab.
[2024-01-17 14:44] LABS: Appearance Urine Clear; Color Urine Yellow; Glucose Urine UA Negative (Negative); Leukocyte Esterase Urine Small (1+) (Negative); Nitrite Urine Negative (Negative); Specific Gravity - Urine 1.015 (1.005-1.025); UMIC TRIGGER UACC YES; Urine Blood Trace (Negative); Urine Ketones Negative (Negative); Urine Protein Trace mg/dL (Neg-Trace)
[2024-01-17 14:55] LABS: Bacteria Urine None Seen (None Seen); RBC Urine 0-2 /HPF (0-2); Squamous Epithelial Cell Urine 0-2 /HPF (0-2); UACC Culture Trigger YES; WBC Urine 0-5 /HPF (0-5)
[2024-01-17 15:32] LABS: Glucose, Whole Blood 97 mg/dL (60-115)
[2024-01-17 15:38] VITALS: BP 105/55; PULSE 75; RESP 11; TEMP 36.6; O2SAT 99
--- NOTE | 2024-01-17 15:44 | PC.NURSE ---
vss and up to date aside from remaining hypotensive. provider aware. nsr on the ear machine operator. POC wnl but continues to trend downward. pt provided w/ eva crackers/juice. will reobtain POC.
[2024-01-17 15:50] VITALS: BP 102/81
[2024-01-17] MEDS: Furosemide 40 MG/4 ML VIAL IVPUSH (15:50)
[2024-01-17] MEDS: Piperacillin Sodium/Tazobactam 3.375 GM in 0.9 % Sodium Chloride 50 ML IV (15:50)
[2024-01-17] MEDS: 0.9 % Sodium Chloride 500 ML 999 ML IV (15:51)
--- NOTE | 2024-01-17 16:06 | PM.IMHP ---
History of Present Illness Date of Service: 01/17/24 Chief Complaint: Unresponsive 88-year-old man presented to the ER after being found unresponsive at home. Apparently his found him and called EMS. He was unresponsive in his recliner. Upon EMS arrival his glucose was noted to be 40, he was given a dose of D10 with elevation in his blood sugar patient reports the 1st thing he remembers is the EMS personnel taking care of him. He denied any recent illness, chest pain, nausea, vomiting, diarrhea, fall or injury. He had a chest x-ray in the ER which showed mild bibasilar infiltrates left more than right, diminished lung volume with no consolidation. Mildly decreased blood pressure with lowest reading of 94/52 but otherwise stable. Labs all within acceptable limits. Patient was given a dose of IV Zosyn, Lasix and 500 mL of IV fluids. He will be admitted for further management and treatment of acute hyperglycemia and mild congestive heart failure. Review of Systems Review of Systems: Denies any recent fever chills or decrease in appetite respiratory denies any shortness of breath or cough cardiovascular is adjustment of any PND or edema gastrointestinal denies any dysphagia abdominal pain nausea vomiting or diarrhea genitourinary denies any dysuria frequency or hematuria musculoskeletal denies any joint pain or swelling neuropsych denies any weakness or seizures all other systems reviewed are negative [facility] Medical History Urinary tract infection due to Pseudomonas aeruginosa Recurrent UTI History of prostate cancer Acute retention of urine Persistent atrial fibrillation COVID-19 vaccine series completed History of cardioversion Hx of Lyme disease Tubular adenoma of colon History of ST elevation myocardial infarction (STEMI) (HFpEF) heart failure with preserved ejection fraction Cardiac pacemaker in situ (~12/2020) Hepatorenal syndrome Symptomatic bradycardia Ventricular bigeminy Thrombocytopenia PVC (premature ventricular contraction) CHF exacerbation Bifascicular block Pancytopenia Prostate CA Myocardial infarct, old CAD (coronary artery disease) HLD (hyperlipidemia) Diabetes HTN (hypertension) Surgical History History of colonoscopy History of cervical spinal surgery History of radical prostatectomy History of left inguinal hernia repair History of total right knee replacement (TKR) History of lumbar discectomy History of cardiac pacemaker (~12/2020) Social History Household Members: Spouse Household Members Other:: 1 Housing: House Are you a primary career representative to a significant other at home: No Do you presently have visiting nurse or other home services: Yes Alcohol intake: current Alcohol intake frequency: does not drink Alcohol type: wine Comment: pt refused bed/chair alarm Patient Tobacco Use Status: Former Tobacco user Quit Date: 60 years ago per patient Tobacco use type: Cigarette Years Smoked: 10 Smoked in Last 30 Days: No Patient Interested in Nicotine Replacement: No Patient Given Instructions on How to Stop Smoking: No Second Hand Smoke Exposure: No Use of substances other than those prescribed or required for medical reasons: No Last Used Substance: Unknown Currently Displaying Signs/Symptoms of Drug Intoxication Withdrawal: No Any prior treatment program specific to substance use: No Have you been hit, kicked, punched, or otherwise hurt by someone within the past year? If so, by whom?: No Do you feel safe in your current relationship?: No Is there a partner from a previous relationship who is making you feel unsafe now?: No Advance Directives: Yes Advance Directives Information Provided: No Advance Directives on File: No Advance Directives Date on File: 01/04/23 Do you have a plan to hurt others: No Plan Recently lost weight without trying: Yes How much weight loss: 14-23 pounds Eating poorly because of decreased appetite: No Nutrition screen score: 4 Nutrition Risks: No Nutritional Risk Poor oral hygiene: No service: No Current occupational status: retired Meds Allergies Allergy/AdvReac Type Severity Reaction Status Date / Time No Known Allergies Allergy Mild N/A Verified 01/17/24 13:17 Active Medications: Current Medications Piperacillin Sod/Tazobactam (Sod 3.375 gm/ Sodium Chloride) 50 mls @ 100 mls/hr IV ONCE ONE Stop: 01/17/24 16:08 Sodium Chloride (Ns) 500 mls @ 999 mls/hr IV .Q31M LESA Stop: 01/17/24 16:30 Home Medications ?Medication ?Instructions ?Recorded ?Confirmed ?Last Taken ?Type insulin aspart U-100 100 unit/mL 1 sliding scale dose subcut 12/14/20 01/17/24 05/30/23 History subcutaneous solution (Novolog USEASDIRECTD U-100 Insulin aspart) multivitamin 1 tab PO DAILY 12/14/20 01/17/2423 History atorvastatin 40 mg tablet 40 mg PO BEDTIME 06/13/21 01/17/24 05/29/23 History insulin degludec 100 unit/mL (3 70 unit subcut DAILY 10/20/22 08/24/23 05/30/23 History mL) subcutaneous pen (Tresiba FlexTouch U-100 insulin) budesonide-formoterol HFA 80 2 puff inhalation BID 01/31/23 01/17/24 05/30/23 History mcg-4.5 mcg/actuation aerosol inhaler (Symbicort) vitamin B complex 1 tab PO DAILY 01/31/23 01/17/24 05/30/23 History losartan 25 mg tablet 25 mg PO DAILY 02/09/23 01/17/24 05/30/23 History cholecalciferol (vitamin D3) 125 125 mcg PO DAILY 05/30/23 01/17/24 05/30/23 History mcg (5,000 unit) tablet (Vitamin D3) magnesium 250 mg tablet 250 mg PO DAILY 05/30/23 01/17/24 05/30/23 History omega-3s 300 og-nja-xpj-other 1 cap PO DAILY 05/30/23 01/17/24 05/30/23 History [id number] oil 1,000 mg capsule (Hundred-3 Fish Oil) zinc 220 mg PO DAILY 05/30/23 01/17/24 05/30/23 History ammonium lactate 12 % topical cream 1 appl topical BID 08/24/23 01/17/24 Unknown History turmeric 400 mg capsule 400 mg PO DAILY 09/25/23 01/17/24 Unknown History clotrimazole-betamethasone 1 1 appl topical BID PRN Itching 01/17/24 01/17/24 Unknown History %-0.05 % topical cream cranberry 400 mg capsule 400 mg PO DAILY 01/17/24 01/17/24 Unknown History oxycodone 15 mg tablet 15 mg PO Q4H PRN Pain 01/17/24 01/17/24 Unknown History pregabalin 150 mg capsule 150 mg PO QID 01/17/24 01/17/24 Unknown History Physical Exam Vital Signs and Narrative: Vital Signs: Last Vital Signs Temp 97.9 F 01/17/24 15:38 Pulse 75 01/17/24 15:38 Resp 11 L 01/17/24 15:38 BP 105/55 L 01/17/24 15:38 Pulse Ox 99 01/17/24 15:38 O2 Del Method Room Air 01/17/24 15:38 BMI result Body Mass Index 29.5 Appearing in no acute distress head is normocephalic atraumatic eyes pupils are PERRLA sclera is anicteric mouth throat mucous membranes are intact and moist neck is supple no lymphadenopathy, no JVD noted lung sounds are clear to auscultation heart regular rate rhythm, clear S1, S2 positive bowel sounds, abdomen is soft, nontender neuro patient is alert x3, no focal deficits Results Labs 01/17/24 13:29 01/18/24 07:40 Labs: Laboratory Results - last 24 hr 01/17/24 01/17/24 01/17/24 13:16 13:29 13:30 MCV 91.7 MCH 30.4 MCHC 33.1 RDW 15.6 Plt Count 120 L MPV 10.0 Immature Gran % (Auto) 1.3 H Neut % (Auto) 83.3 H Lymph % (Auto) 7.3 L [place] % (Auto) 7.2 Eos % (Auto) 0.6 Baso % (Auto) 0.3 Lymph # (Auto) 0.5 L [place] # (Auto) 0.5 Eos # (Auto) 0.0 Baso # (Auto) 0.0 Abs Immat Gran (auto) 0.09 H Absolute Neuts (auto) 5.8 Absolute Nucleated RBC 0.000 Nucleated RBC % (auto) 0.0 Smear Tech's Comments VERIFIED PT 30.8 H INR 2.5 H VBG pH VBG pCO2 VBG pO2 VBG HCO3 VBG O2 Saturation VBG Base Excess Anion Gap 11 L Estim Creat Clear Calc 48.9 Estimated GFR > 60 POC Glucose 93 Random Glucose 91 Lactic Acid 0.9 Calcium 8.5 Magnesium 1.9 Total Bilirubin 0.6 AST 49 H ALT 30 Alkaline Phosphatase 100 Troponin I High Sens 27.3 B-Natriuretic Peptide 250 H Total Protein 5.5 L Albumin 2.7 L Urine Color Urine Appearance Urine pH Ur Specific [place] Urine Protein Urine Glucose (UA) Urine Ketones Urine Blood Urine Nitrite Ur Leukocyte Esterase Urine RBC Urine WBC Ur Squamous Epith Cells Urine Bacteria Hyaline Casts 01/17/24 01/17/24 01/17/24 13:35 13:40 14:21 MCV MCH MCHC RDW Plt Count MPV Immature Gran % (Auto) Neut % (Auto) Lymph % (Auto) [place] % (Auto) Eos % (Auto) Baso % (Auto) Lymph # (Auto) [place] # (Auto) Eos # (Auto) Baso # (Auto) Abs Immat Gran (auto) Absolute Neuts (auto) Absolute Nucleated RBC Nucleated RBC % (auto) Smear Tech's Comments PT INR VBG pH 7.45 H VBG pCO2 45 VBG pO2 82 VBG HCO3 31 H VBG O2 Saturation 97.0 VBG Base Excess 6.8 Anion Gap Estim Creat Clear Calc Estimated GFR POC Glucose 83 116 H Random Glucose Lactic Acid Calcium Magnesium Total Bilirubin AST ALT Alkaline Phosphatase Troponin I High Sens B-Natriuretic Peptide Total Protein Albumin Urine Color Urine Appearance Urine pH Ur Specific [place] Urine Protein Urine Glucose (UA) Urine Ketones Urine Blood Urine Nitrite Ur Leukocyte Esterase Urine RBC Urine WBC Ur Squamous Epith Cells Urine Bacteria Hyaline Casts 01/17/24 01/17/24 14:38 15:26 MCV MCH MCHC RDW Plt Count MPV Immature Gran % (Auto) Neut % (Auto) Lymph % (Auto) [place] % (Auto) Eos % (Auto) Baso % (Auto) Lymph # (Auto) [place] # (Auto) Eos # (Auto) Baso # (Auto) Abs Immat Gran (auto) Absolute Neuts (auto) Absolute Nucleated RBC Nucleated RBC % (auto) Smear Tech's Comments PT INR VBG pH VBG pCO2 VBG pO2 VBG HCO3 VBG O2 Saturation VBG Base Excess Anion Gap Estim Creat Clear Calc Estimated GFR POC Glucose 97 Random Glucose Lactic Acid Calcium Magnesium Total Bilirubin AST ALT Alkaline Phosphatase Troponin I High Sens B-Natriuretic Peptide Total Protein Albumin Urine Color Yellow Urine Appearance Clear Urine pH 5.0 Ur Specific [place] 1.015 Urine Protein Trace Urine Glucose (UA) Negative Urine Ketones Negative Urine Blood Trace H Urine Nitrite Negative Ur Leukocyte Esterase Small (1+) H Urine RBC 0-2 Urine WBC 0-5 Ur Squamous Epith Cells 0-2 Urine Bacteria None Seen Hyaline Casts 3-5 Imaging Radiologist's Impressions: Impressions Chest X-Ray 01/17/24 13:53 IMPRESSION: 1. Mild bibasilar infiltrates left more than right. 2. Diminished lung volume. 3. Widened mediastinum exaggerated by AP technique unchanged. Assessment and Plan (1) CHF exacerbation: Status: Acute Plan 88 year old man admitted for hypoglycemia and mild congestive heart failure Diabetes mellitus type 2 with Hypoglycemia. Found unresponsive at home As per EMS blood sugar was 40, given dextrose with good elevation in blood sugar Will continue sliding scale, ADA diet Monitor blood sugar closely and adjust medications Heart failure with preserved ejection fraction last echocardiogram in August of 2023 EF 50-55% Continue supplemental oxygen IV Lasix 40 mg daily Cardiology consultation Monitor on telemetry Paroxysmal atrial fibrillation No RVR Continue apixaban and beta-jas Hypertension Stable blood pressure, continue home medications COPD No exacerbation Continue albuterol as needed History of CAD Continue statin DVT prophylaxis with apixaban Full code Patient require at least 48 hours of inpatient admission for acute heart failure exacerbation with noted hypoglycemia requiring IV medications and specialty consultation. Due to patient's age and other comorbidities he is at high risk for decompensation. Quality Stroke Does the patient have a stroke diagnosis?: No VTE Prior VTE?: No VTE Risk Level:: Medical - moderate - high VTE Device Contraindication: Treatment Not Indicated VTE Drug Contraindication: N/A - Med Ordered
--- NOTE | 2024-01-17 16:38 | PC.NURSE ---
pt speaking w/ hospitalist tin regards to being admitted at this time. plan of care ongoing.
--- NOTE | 2024-01-17 17:09 | PHA.MEDREC ---
Addendum entered by Reuben Saini 01/19/24 11:43: Called patient's and confirmed that patient is on Tresiba 70 units daily. Patient gets through [facility]. Original Note: Pharmacy Consult ? Medication Reconciliation Pharmacy has completed the medication reconciliation. Spoke with patient to confirm medications. He confirms he takes novolog via a sliding scale and confirmed 70 units of the long acting insulin but was not able to recall the name. There is no claim history for the Tresiba or novolog and [facility]. [facility] has an old prescription from 2021 for Basaglar. Tried calling but no answer, called his daughter however she did not know. He confirmed he picked up his previous discharge medications but cannot remember what they were for or when he last took. He reports he is no longer using combivent because it was too expensive. Patient says he has a red inhaler at home and Symbicort was on his home med list prior to me confirming them so I kept on his med list, no claims to support this either. He confirmed oxycodone prn (last bulk picker was for 15mg) and lyrica QID. Used claim history to confirm dosages and frequency of prescription medications.
--- NOTE | 2024-01-17 17:22 | PC.NURSE ---
unable to adequately monitor I&Os d/t pt having no prostate/constant leaking. provider notified aware. per admitting provider order - 16Fr renteria catheter placed. 200ml of clear pale yellow urine noted immediately post output. pt tolerated well.
[2024-01-17 18:49] LABS: Glucose, Whole Blood 210 mg/dL (60-115)
[2024-01-17] MEDS: Cholecalciferol (Vitamin D3) 25 MCG TABLET 125 MCG PO (18:58)
[2024-01-17] MEDS: Ascorbic Acid 500 MG TABLET 1000 MG PO (18:58)
[2024-01-17] MEDS: Multivitamin TABLET 1 TAB PO (18:58)
--- NOTE | 2024-01-17 19:11 | PC.NURSE ---
sliding scale insulin/losartan held per provider order.
--- NOTE | 2024-01-17 19:48 | PC.NURSE ---
This RN assumed pt care @ 1900. Pt sitting in bed eating dinner and watching tv. Pt ca&ox3, no signs of distress. Vitals stable. Plan of care ongoing.
[2024-01-17 20:15] VITALS: O2SAT 98
[2024-01-17 21:49] LABS: Glucose, Whole Blood 256 mg/dL (60-115)
[2024-01-17 21:49] LABS: Glucose, Whole Blood 262 mg/dL (60-115)
[2024-01-17] MEDS: Apixaban 5 MG TABLET PO (22:00)
[2024-01-17] MEDS: Atorvastatin Calcium 40 MG TABLET PO (22:00)
--- NOTE | 2024-01-17 22:09 | PC.NURSE ---
Pt medicated per oct. Plan of care ongoing.
[2024-01-18] VITALS (10 sets, daily range): BP systolic 98–141; BP diastolic 54–78; PULSE 68–78; RESP 16–18; TEMP 36–36.7; O2SAT 96–98
[2024-01-18 01:59] LABS: Glucose, Whole Blood 257 mg/dL (60-115)
[2024-01-18] MEDS: Insulin Lispro 100 UNIT/ML 3 ML VIAL SUBCUT ×5 (02:21→21:55)
[2024-01-18] MEDS: 0.9 % Sodium Chloride Flush 3 ML SYRINGE IVFLUSH ×3 (02:22→17:23)
[2024-01-18 04:20] LABS: Glucose, Whole Blood 194 mg/dL (60-115)
[2024-01-18 06:31] LABS: Glucose, Whole Blood 168 mg/dL (60-115)
[2024-01-18 08:07] LABS: Glucose, Whole Blood 159 mg/dL (60-115)
[2024-01-18 08:35] LABS: Anion Gap 12 (12-20); Blood Urea Nitrogen 25 mg/dL (9-16); Calcium 8.4 mg/dL (8.4-10.2); Carbon Dioxide 30 mmol/L (22-29); Chloride 103 mmol/L (96-108); Creatinine Clr Calc Pharmacy 60.1; Estimated Glomerular Filt Rate > 60; Glucose Random 159 mg/dL (60-115); Potassium 3.5 mmol/L (3.3-5.1); Sodium 141 mmol/L (135-145)
[2024-01-18 08:53] LABS: B Type Natriuretic Peptide 432 pg/mL (<100)
[2024-01-18] MEDS: Cholecalciferol (Vitamin D3) 25 MCG TABLET 125 MCG PO (09:21)
[2024-01-18] MEDS: Isosorbide Mononitrate 30 MG TAB.ER.24H PO (09:21)
[2024-01-18] MEDS: Apixaban 5 MG TABLET PO (09:21)
[2024-01-18] MEDS: Metoprolol Tartrate 50 MG TABLET PO ×2 (09:22→21:53)
[2024-01-18] MEDS: Losartan Potassium 25 MG TABLET PO (09:22)
[2024-01-18] MEDS: Multivitamin TABLET 1 TAB PO (09:22)
[2024-01-18] MEDS: Ascorbic Acid 500 MG TABLET 1000 MG PO (09:22)
[2024-01-18] MEDS: Pregabalin 150 MG CAPSULE PO ×4 (09:22→21:53)
[2024-01-18] MEDS: Zinc Sulfate 220 MG CAPSULE PO (09:22)
[2024-01-18] MEDS: Furosemide 40 MG/4 ML VIAL IVPUSH (09:23)
[2024-01-18 11:22] LABS: Glucose, Whole Blood 289 mg/dL (60-115)
--- NOTE | 2024-01-18 12:02 | PM.CNCAR ---
History of Present Illness History of Present Illness Date of Service: 01/18/24 Chief complaint: chf Narrative: [age] year gentleman presenting with unresponsiveness due to hypoglycemia and was noticed to be in heart failure. He has been experiencing shortness of breath over the last week or so. He also has chronic lower extremity edema. He is saying that his sugar has been somewhat difficult to control and he had previous episodes of hypoglycemia in the morning. He is saying his sugars at night are to 100s and he takes insulin accordingly and gets hypoglycemic episode in the morning. Denying chest discomfort. Does have chronic peripheral edema. Denying any obvious orthopnea/PND. [facility] Past Medical History Medical History Urinary tract infection due to Pseudomonas aeruginosa Recurrent UTI History of prostate cancer Acute retention of urine Persistent atrial fibrillation COVID-19 vaccine series completed History of cardioversion Hx of Lyme disease Tubular adenoma of colon History of ST elevation myocardial infarction (STEMI) (HFpEF) heart failure with preserved ejection fraction Cardiac pacemaker in situ (~12/2020) Hepatorenal syndrome Symptomatic bradycardia Ventricular bigeminy Thrombocytopenia PVC (premature ventricular contraction) CHF exacerbation Bifascicular block Pancytopenia Prostate CA Myocardial infarct, old CAD (coronary artery disease) HLD (hyperlipidemia) Diabetes HTN (hypertension) Surgical History Surgical History History of colonoscopy History of cervical spinal surgery History of radical prostatectomy History of left inguinal hernia repair History of total right knee replacement (TKR) History of lumbar discectomy History of cardiac pacemaker (~12/2020) Social History Social History Household Members: Spouse Household Members Other:: 1 Housing: House Are you a primary healthcare market consultant to a significant other at home: No Do you presently have visiting nurse or other home services: Yes Alcohol intake: current Alcohol intake frequency: does not drink Alcohol type: wine Comment: pt refused bed/chair alarm Patient Tobacco Use Status: Former Tobacco user Quit Date: 60 years ago per patient Tobacco use type: Cigarette Years Smoked: 10 Smoked in Last 30 Days: No Patient Interested in Nicotine Replacement: No Patient Given Instructions on How to Stop Smoking: No Second Hand Smoke Exposure: No Use of substances other than those prescribed or required for medical reasons: No Last Used Substance: Unknown Currently Displaying Signs/Symptoms of Drug Intoxication Withdrawal: No Any prior treatment program specific to substance use: No Have you been hit, kicked, punched, or otherwise hurt by someone within the past year? If so, by whom?: No Do you feel safe in your current relationship?: No Is there a partner from a previous relationship who is making you feel unsafe now?: No Advance Directives: Yes Advance Directives Information Provided: No Advance Directives on File: No Advance Directives Date on File: 01/04/23 Do you have a plan to hurt others: No Plan Recently lost weight without trying: Yes How much weight loss: 14-23 pounds Eating poorly because of decreased appetite: No Nutrition screen score: 4 Nutrition Risks: No Nutritional Risk Poor oral hygiene: No service: Yes Current occupational status: retired [employer] Allergies Allergy/AdvReac Type Severity Reaction Status Date / Time No Known Allergies Allergy Mild N/A Verified 01/17/24 13:17 Active Medications: Current Medications Acetaminophen (Acetaminophen 325 Mg Tablet) 650 mg PO Q6H PRN PRN Reason: Pain, Mild (Pain Scale 1-3) Al Hydroxide/Mg Hydroxide (Magnesium Hydrox/Alum Hydrox 30 Ml Oral.Susp) 30 ml PO Q4H PRN PRN Reason: Heartburn/Nausea Apixaban (Apixaban 5 Mg Tablet) 5 mg PO BID [facility] Last Admin: 01/18/24 09:21 Dose: 5 mg Ascorbic Acid (Ascorbic Acid 500 Mg Tablet) 1,000 mg PO DAILY [facility] Last Admin: 01/18/24 09:22 Dose: 1,000 mg Atorvastatin Calcium (Atorvastatin Calcium 40 Mg Tablet) 40 mg PO BEDTIME [facility] Last Admin: 01/17/24 22:00 Dose: 40 mg Docusate Sodium (Docusate Sodium 100 Mg Capsule) 100 mg PO DAILY PRN PRN Reason: Constipation Fluticasone/Vilanterol (Fluticasone/Vilanterol 100/25 Blst.W.Dev) 1 puff INHALE DAILY [facility] Furosemide (Furosemide 40 Mg/4 Ml Vial) 40 mg IVPUSH DAILY [facility]; Protocol Last Admin: 01/18/24 09:23 Dose: 40 mg Glucose (Glucose Gel 15 Gm Gel..Gram.) 15 gm PO Q15M PRN; Protocol PRN Reason: per Hypoglycemia Standing Ord. Glucose (Glucose Gel 15 Gm Gel..Gram.) 15 gm PO Q15M PRN; Protocol PRN Reason: per Hypoglycemia Standing Ord. Dextrose (D10) 250 mls @ 750 mls/hr IV Q15M PRN; Protocol PRN Reason: per Hypoglycemia Standing Ord. Dextrose (D10) 250 mls @ 750 mls/hr IV Q15M PRN; Protocol PRN Reason: per Hypoglycemia Standing Ord. Insulin Human Lispro (Insulin Lispro 100 Unit/Ml 3 Ml Vial) 0 unit SUBCUT QIDACHS [facility]; Protocol Last Admin: 01/18/24 11:59 Dose: 6 unit Isosorbide Mononitrate (Isosorbide Mononitrate 30 Mg Tab.Er.24h) 30 mg PO DAILY [facility]; Protocol Last Admin: 01/18/24 09:21 Dose: 30 mg Lactic Acid (Ammonium Lactate 12 % Cream 140 Gm Tube) 1 appl TOPICAL BID [facility]; Protocol Last Admin: 01/18/24 09:46 Dose: Not Given Losartan Potassium (Losartan Potassium 25 Mg Tablet) 25 mg PO DAILY [facility]; Protocol Last Admin: 01/18/24 09:22 Dose: 25 mg Melatonin (Melatonin 3 Mg Tablet) 6 mg PO BEDTIME PRN PRN Reason: Insomnia Metoprolol Tartrate (Metoprolol Tartrate 50 Mg Tablet) 50 mg PO BID [facility]; Protocol Last Admin: 01/18/24 09:22 Dose: 50 mg Multivitamins/Vitamin C (Multivitamin Tablet) 1 tab PO DAILY [facility] Last Admin: 01/18/24 09:22 Dose: 1 tab Pregabalin (Pregabalin 150 Mg Capsule) 150 mg PO QID [facility] Last Admin: 01/18/24 11:59 Dose: 150 mg Sodium Chloride (0.9 % Sodium Chloride Flush 3 Ml Syringe) 3 ml IVFLUSH QSHIFT [facility] Last Admin: 01/18/24 09:23 Dose: 3 ml Vitamin D (Cholecalciferol (Vitamin D3) 25 Mcg Tablet) 125 mcg PO DAILY [facility] Last Admin: 01/18/24 09:21 Dose: 125 mcg Zinc Sulfate (Zinc Sulfate 220 Mg Capsule) 220 mg PO DAILY [facility] Last Admin: 01/18/24 09:22 Dose: 220 mg Home Medications ?Medication ?Instructions ?Recorded ?Confirmed ?Last Taken ?Type insulin aspart U-100 100 unit/mL 1 sliding scale dose subcut 12/14/20 01/17/24 05/30/23 History subcutaneous solution (Novolog USEASDIRECTD U-100 Insulin aspart) multivitamin 1 tab PO DAILY 12/14/20 01/17/24 05/30/23 History atorvastatin 40 mg tablet 40 mg PO BEDTIME 06/13/21 01/17/24 05/29/23 History insulin degludec 100 unit/mL (3 70 unit subcut DAILY 10/20/22 08/24/23 05/30/23 History mL) subcutaneous pen (Tresiba FlexTouch U-100 insulin) budesonide-formoterol HFA 80 2 puff inhalation BID 01/31/23 01/17/24 05/30/23 History mcg-4.5 mcg/actuation aerosol inhaler (Symbicort) vitamin B complex 1 tab PO DAILY 01/31/23 01/17/24 05/30/23 History losartan 25 mg tablet 25 mg PO DAILY 02/09/23 01/17/24 05/30/23 History cholecalciferol (vitamin D3) 125 125 mcg PO DAILY 05/30/23 01/17/24 05/30/23 History mcg (5,000 unit) tablet (Vitamin D3) magnesium 250 mg tablet 250 mg PO DAILY 05/30/23 01/17/24 05/30/23 History omega-3s 300 az-civ-hye-other 1 cap PO DAILY 05/30/23 01/17/24 05/30/23 History [id number] oil 1,000 mg capsule ([place]-3 Fish Oil) zinc 220 mg PO DAILY 05/30/23 01/17/24 05/30/23 History ammonium lactate 12 % topical cream 1 appl topical BID 08/24/23 01/17/24 Unknown History turmeric 400 mg capsule 400 mg PO DAILY 09/25/23 01/17/24 Unknown History clotrimazole-betamethasone 1 1 appl topical BID PRN Itching 01/17/24 01/17/24 Unknown History %-0.05 % topical cream cranberry 400 mg capsule 400 mg PO DAILY 01/17/24 01/17/24 Unknown History oxycodone 15 mg tablet 15 mg PO Q4H PRN Pain 01/17/24 01/17/24 Unknown History pregabalin 150 mg capsule 150 mg PO QID 01/17/24 01/17/24 Unknown History Physical Exam Vital Signs: Vital Signs: Last Vital Signs Temp 97.4 F 01/18/24 07:34 Pulse 68 01/18/24 09:22 Resp 17 01/18/24 07:34 BP 105/57 L 01/18/24 09:23 Pulse Ox 97 01/18/24 07:34 O2 Del Method Room Air 01/18/24 07:34 BMI result Body Mass Index 29.5 GENERAL APPEARANCE: in no acute distress, pleasant. NECK: no carotid bruit, + jugular venous distention. SKIN: no suspicious lesions, warm and dry. HEART: no murmurs, regular rate and rhythm. LUNGS: Crackles at bases ABDOMEN: soft, nontender. EXTREMITIES: ++ edema. PERIPHERAL PULSES: equal. NEUROLOGIC: No gross deficits, AAO X 3 Objective Labs and Meds 01/17/24 13:29 01/18/24 07:40 Lab results: Laboratory Results - last 24 hr 01/17/24 01/17/24 01/17/24 13:16 13:29 13:30 WBC 7.0 RBC 3.13 L Hgb 9.5 L Hct 28.7 L MCV 91.7 MCH 30.4 MCHC 33.1 RDW 15.6 Plt Count 120 L MPV 10.0 Immature Gran % (Auto) 1.3 H Neut % (Auto) 83.3 H Lymph % (Auto) 7.3 L [place] % (Auto) 7.2 Eos % (Auto) 0.6 Baso % (Auto) 0.3 Lymph # (Auto) 0.5 L [place] # (Auto) 0.5 Eos # (Auto) 0.0 Baso # (Auto) 0.0 Abs Immat Gran (auto) 0.09 H Absolute Neuts (auto) 5.8 Absolute Nucleated RBC 0.000 Nucleated RBC % (auto) 0.0 Smear Tech's Comments VERIFIED PT 30.8 H INR 2.5 H VBG pH VBG pCO2 VBG pO2 VBG HCO3 VBG O2 Saturation VBG Base Excess Sodium 138 Potassium 3.3 D Chloride 102 Carbon Dioxide 28 Anion Gap 11 L BUN 30 H Creatinine 1.13 Estim Creat Clear Calc 48.9 Estimated GFR > 60 POC Glucose 93 Random Glucose 91 Lactic Acid 0.9 Calcium 8.5 Magnesium 1.9 Total Bilirubin 0.6 AST 49 H ALT 30 Alkaline Phosphatase 100 Troponin I High Sens 27.3 B-Natriuretic Peptide 250 H Total Protein 5.5 L Albumin 2.7 L Urine Color Urine Appearance Urine pH Ur Specific Energy Urine Protein Urine Glucose (UA) Urine Ketones Urine Blood Urine Nitrite Ur Leukocyte Esterase Urine RBC Urine WBC Ur Squamous Epith Cells Urine Bacteria Hyaline Casts 01/17/24 01/17/24 01/17/24 13:35 13:40 14:21 WBC RBC Hgb Hct MCV MCH MCHC RDW Plt Count MPV Immature Gran % (Auto) Neut % (Auto) Lymph % (Auto) [place] % (Auto) Eos % (Auto) Baso % (Auto) Lymph # (Auto) [place] # (Auto) Eos # (Auto) Baso # (Auto) Abs Immat Gran (auto) Absolute Neuts (auto) Absolute Nucleated RBC Nucleated RBC % (auto) Smear Tech's Comments PT INR VBG pH 7.45 H VBG pCO2 45 VBG pO2 82 VBG HCO3 31 H VBG O2 Saturation 97.0 VBG Base Excess 6.8 Sodium Potassium Chloride Carbon Dioxide Anion Gap BUN Creatinine Estim Creat Clear Calc Estimated GFR POC Glucose 83 116 H Random Glucose Lactic Acid Calcium Magnesium Total Bilirubin AST ALT Alkaline Phosphatase Troponin I High Sens B-Natriuretic Peptide Total Protein Albumin Urine Color Urine Appearance Urine pH Ur Specific Energy Urine Protein Urine Glucose (UA) Urine Ketones Urine Blood Urine Nitrite Ur Leukocyte Esterase Urine RBC Urine WBC Ur Squamous Epith Cells Urine Bacteria Hyaline Casts 01/17/24 01/17/24 01/17/24 14:38 15:26 18:43 WBC RBC Hgb Hct MCV MCH MCHC RDW Plt Count MPV Immature Gran % (Auto) Neut % (Auto) Lymph % (Auto) [place] % (Auto) Eos % (Auto) Baso % (Auto) Lymph # (Auto) [place] # (Auto) Eos # (Auto) Baso # (Auto) Abs Immat Gran (auto) Absolute Neuts (auto) Absolute Nucleated RBC Nucleated RBC % (auto) Smear Tech's Comments PT INR VBG pH VBG pCO2 VBG pO2 VBG HCO3 VBG O2 Saturation VBG Base Excess Sodium Potassium Chloride Carbon Dioxide Anion Gap BUN Creatinine Estim Creat Clear Calc Estimated GFR POC Glucose 97 210 H Random Glucose Lactic Acid Calcium Magnesium Total Bilirubin AST ALT Alkaline Phosphatase Troponin I High Sens B-Natriuretic Peptide Total Protein Albumin Urine Color Yellow Urine Appearance Clear Urine pH 5.0 Ur Specific Energy 1.015 Urine Protein Trace Urine Glucose (UA) Negative Urine Ketones Negative Urine Blood Trace H Urine Nitrite Negative Ur Leukocyte Esterase Small (1+) H Urine RBC 0-2 Urine WBC 0-5 Ur Squamous Epith Cells 0-2 Urine Bacteria None Seen Hyaline Casts 3-5 01/17/24 01/17/24 01/18/24 19:57 21:46 01:50 WBC RBC Hgb Hct MCV MCH MCHC RDW Plt Count MPV Immature Gran % (Auto) Neut % (Auto) Lymph % (Auto) [place] % (Auto) Eos % (Auto) Baso % (Auto) Lymph # (Auto) [place] # (Auto) Eos # (Auto) Baso # (Auto) Abs Immat Gran (auto) Absolute Neuts (auto) Absolute Nucleated RBC Nucleated RBC % (auto) Smear Tech's Comments PT INR VBG pH VBG pCO2 VBG pO2 VBG HCO3 VBG O2 Saturation VBG Base Excess Sodium Potassium Chloride Carbon Dioxide Anion Gap BUN Creatinine Estim Creat Clear Calc Estimated GFR POC Glucose 262 H 256 H 257 H Random Glucose Lactic Acid Calcium Magnesium Total Bilirubin AST ALT Alkaline Phosphatase Troponin I High Sens B-Natriuretic Peptide Total Protein Albumin Urine Color Urine Appearance Urine pH Ur Specific Energy Urine Protein Urine Glucose (UA) Urine Ketones Urine Blood Urine Nitrite Ur Leukocyte Esterase Urine RBC Urine WBC Ur Squamous Epith Cells Urine Bacteria Hyaline Casts 01/18/24 01/18/24 01/18/24 04:13 06:19 07:38 WBC RBC Hgb Hct MCV MCH MCHC RDW Plt Count MPV Immature Gran % (Auto) Neut % (Auto) Lymph % (Auto) [place] % (Auto) Eos % (Auto) Baso % (Auto) Lymph # (Auto) [place] # (Auto) Eos # (Auto) Baso # (Auto) Abs Immat Gran (auto) Absolute Neuts (auto) Absolute Nucleated RBC Nucleated RBC % (auto) Smear Tech's Comments PT INR VBG pH VBG pCO2 VBG pO2 VBG HCO3 VBG O2 Saturation VBG Base Excess Sodium Potassium Chloride Carbon Dioxide Anion Gap BUN Creatinine Estim Creat Clear Calc Estimated GFR POC Glucose 194 H 168 H 159 H Random Glucose Lactic Acid Calcium Magnesium Total Bilirubin AST ALT Alkaline Phosphatase Troponin I High Sens B-Natriuretic Peptide Total Protein Albumin Urine Color Urine Appearance Urine pH Ur Specific Energy Urine Protein Urine Glucose (UA) Urine Ketones Urine Blood Urine Nitrite Ur Leukocyte Esterase Urine RBC Urine WBC Ur Squamous Epith Cells Urine Bacteria Hyaline Casts 01/18/24 01/18/24 07:40 11:19 WBC RBC Hgb Hct MCV MCH MCHC RDW Plt Count MPV Immature Gran % (Auto) Neut % (Auto) Lymph % (Auto) [place] % (Auto) Eos % (Auto) Baso % (Auto) Lymph # (Auto) [place] # (Auto) Eos # (Auto) Baso # (Auto) Abs Immat Gran (auto) Absolute Neuts (auto) Absolute Nucleated RBC Nucleated RBC % (auto) Smear Tech's Comments PT INR VBG pH VBG pCO2 VBG pO2 VBG HCO3 VBG O2 Saturation VBG Base Excess Sodium 141 Potassium 3.5 Chloride 103 Carbon Dioxide 30 H Anion Gap 12 BUN 25 H Creatinine 0.92 Estim Creat Clear Calc 60.1 Estimated GFR > 60 POC Glucose 289 H Random Glucose 159 H Lactic Acid Calcium 8.4 Magnesium Total Bilirubin AST ALT Alkaline Phosphatase Troponin I High Sens B-Natriuretic Peptide 432 H Total Protein Albumin Urine Color Urine Appearance Urine pH Ur Specific Energy Urine Protein Urine Glucose (UA) Urine Ketones Urine Blood Urine Nitrite Ur Leukocyte Esterase Urine RBC Urine WBC Ur Squamous Epith Cells Urine Bacteria Hyaline Casts Imaging Radiologist's impression: Impressions Chest X-Ray 01/17/24 13:53 IMPRESSION: 1. Mild bibasilar infiltrates left more than right. 2. Diminished lung volume. 3. Widened mediastinum exaggerated by AP technique unchanged. Humerus X-Ray 01/17/24 16:05 IMPRESSION: Nonspecific soft tissue swelling as above. No acute findings. Assessment and Plan (1) CHF exacerbation: Status: Acute Plan [age] year gentleman presenting with congestive heart failure and hypoglycemia. He had unresponsiveness due to low sugars but he has improved. His insulin dose has to be adjusted because wide fluctuations of sugar level can have significant cardiovascular and neurological effects. Clinically he is overloaded. Agree with IV diuretics currently. On apixaban for paroxysmal atrial fibrillation. Thank you for allowing me to participate in the care of your patient. Please feel free to contact me if you have any questions. Procedures Date of Service Date of Service: 01/18/24
--- NOTE | 2024-01-18 12:14 | MHC.CM.PN ---
IMM 01/17. Pt lives at home with his . Pt states he is active with [facility], return referral placed in [facility]. Pt states he uses a cane, walker, chair lift, has a walk in shower and grab bars in the entrance of his home. Pts states his will transport him home at [place]. Copy of HCP received from [facility], verified and now on file. PCP: Dr. Jewel Rebolledo
--- NOTE | 2024-01-18 12:23 | HO.PM.IMPN ---
Subjective Subjective Date of Service: 01/18/24 Review of Systems Follow up CHF, hypoglycemia feeling better today Physical Exam Vital Signs: Vital Signs: Last Vital Signs Temp 97.4 F 01/18/24 12:00 Pulse 71 01/18/24 12:00 Resp 18 01/18/24 12:00 BP 101/59 L 01/18/24 12:00 Pulse Ox 96 01/18/24 12:00 O2 Del Method Room Air 01/18/24 12:00 BMI result Body Mass Index 29.5 Appearing in no acute distress lung sounds are clear to auscultation heart regular rate rhythm, clear S1, S2 positive bowel sounds, abdomen is soft, nontender neuro patient is alert x3, no focal deficits Objective Data Active Medications Acetaminophen (Acetaminophen 325 Mg Tablet) 650 mg PO Q6H PRN PRN Reason: Pain, Mild (Pain Scale 1-3) Al Hydroxide/Mg Hydroxide (Magnesium Hydrox/Alum Hydrox 30 Ml Oral.Susp) 30 ml PO Q4H PRN PRN Reason: Heartburn/Nausea Apixaban (Apixaban 5 Mg Tablet) 5 mg PO BID [facility] Last Admin: 01/18/24 09:21 Dose: 5 mg Documented By: JONAS Ascorbic Acid (Ascorbic Acid 500 Mg Tablet) 1,000 mg PO DAILY [facility] Last Admin: 01/18/24 09:22 Dose: 1,000 mg Documented By: JONAS Atorvastatin Calcium (Atorvastatin Calcium 40 Mg Tablet) 40 mg PO BEDTIME [facility] Last Admin: 01/17/24 22:00 Dose: 40 mg Documented By: ROCIO Docusate Sodium (Docusate Sodium 100 Mg Capsule) 100 mg PO DAILY PRN PRN Reason: Constipation Fluticasone/Vilanterol (Fluticasone/Vilanterol 100/25 Blst.W.Dev) 1 puff INHALE DAILY [facility] Furosemide (Furosemide 40 Mg/4 Ml Vial) 40 mg IVPUSH DAILY [facility]; Protocol Last Admin: 01/18/24 09:23 Dose: 40 mg Documented By: JONAS Glucose (Glucose Gel 15 Gm Gel..Gram.) 15 gm PO Q15M PRN; Protocol PRN Reason: per Hypoglycemia Standing Ord. Glucose (Glucose Gel 15 Gm Gel..Gram.) 15 gm PO Q15M PRN; Protocol PRN Reason: per Hypoglycemia Standing Ord. Dextrose (D10) 250 mls @ 750 mls/hr IV Q15M PRN; Protocol PRN Reason: per Hypoglycemia Standing Ord. Dextrose (D10) 250 mls @ 750 mls/hr IV Q15M PRN; Protocol PRN Reason: per Hypoglycemia Standing Ord. Insulin Human Lispro (Insulin Lispro 100 Unit/Ml 3 Ml Vial) 0 unit SUBCUT QIDACHS [facility]; Protocol Last Admin: 01/18/24 11:59 Dose: 6 unit Documented By: JONAS Isosorbide Mononitrate (Isosorbide Mononitrate 30 Mg Tab.Er.24h) 30 mg PO DAILY [facility]; Protocol Last Admin: 01/18/24 09:21 Dose: 30 mg Documented By: JONAS Lactic Acid (Ammonium Lactate 12 % Cream 140 Gm Tube) 1 appl TOPICAL BID [facility]; Protocol Last Admin: 01/18/24 09:46 Dose: Not Given Documented By: JONAS Non-Admin Reason: Med Not Available Lidocaine (Lidocaine 4 % Patch Adh..Patch) 1 patch TRANSDERMA DAILY [facility]; Protocol Losartan Potassium (Losartan Potassium 25 Mg Tablet) 25 mg PO DAILY [facility]; Protocol Last Admin: 01/18/24 09:22 Dose: 25 mg Documented By: JONAS Melatonin (Melatonin 3 Mg Tablet) 6 mg PO BEDTIME PRN PRN Reason: Insomnia Metoprolol Tartrate (Metoprolol Tartrate 50 Mg Tablet) 50 mg PO BID [facility]; Protocol Last Admin: 01/18/24 09:22 Dose: 50 mg Documented By: JONAS Multivitamins/Vitamin C (Multivitamin Tablet) 1 tab PO DAILY [facility] Last Admin: 01/18/24 09:22 Dose: 1 tab Documented By: JONAS Pregabalin (Pregabalin 150 Mg Capsule) 150 mg PO QID [facility] Last Admin: 01/18/24 11:59 Dose: 150 mg Documented By: JONAS Sodium Chloride (0.9 % Sodium Chloride Flush 3 Ml Syringe) 3 ml IVFLUSH QSHIFT [facility] Last Admin: 01/18/24 09:23 Dose: 3 ml Documented By: JONAS Vitamin D (Cholecalciferol (Vitamin D3) 25 Mcg Tablet) 125 mcg PO DAILY [facility] Last Admin: 01/18/24 09:21 Dose: 125 mcg Documented By: JONAS Zinc Sulfate (Zinc Sulfate 220 Mg Capsule) 220 mg PO DAILY [facility] Last Admin: 01/18/24 09:22 Dose: 220 mg Documented By: JONAS Labs 01/17/24 13:29 01/18/24 07:40 Labs: Laboratory Results - last 24 hr 01/17/24 01/17/24 01/17/24 13:16 13:29 13:30 MCV 91.7 MCH 30.4 MCHC 33.1 RDW 15.6 Plt Count 120 L MPV 10.0 Immature Gran % (Auto) 1.3 H Neut % (Auto) 83.3 H Lymph % (Auto) 7.3 L [place] % (Auto) 7.2 Eos % (Auto) 0.6 Baso % (Auto) 0.3 Lymph # (Auto) 0.5 L [place] # (Auto) 0.5 Eos # (Auto) 0.0 Baso # (Auto) 0.0 Abs Immat Gran (auto) 0.09 H Absolute Neuts (auto) 5.8 Absolute Nucleated RBC 0.000 Nucleated RBC % (auto) 0.0 Smear Tech's Comments VERIFIED PT 30.8 H INR 2.5 H VBG pH VBG pCO2 VBG pO2 VBG HCO3 VBG O2 Saturation VBG Base Excess Anion Gap 11 L Estim Creat Clear Calc 48.9 Estimated GFR > 60 POC Glucose 93 Random Glucose 91 Lactic Acid 0.9 Calcium 8.5 Magnesium 1.9 Total Bilirubin 0.6 AST 49 H ALT 30 Alkaline Phosphatase 100 Troponin I High Sens 27.3 B-Natriuretic Peptide 250 H Total Protein 5.5 L Albumin 2.7 L Urine Color Urine Appearance Urine pH Ur Specific [place] Urine Protein Urine Glucose (UA) Urine Ketones Urine Blood Urine Nitrite Ur Leukocyte Esterase Urine RBC Urine WBC Ur Squamous Epith Cells Urine Bacteria Hyaline Casts 01/17/24 01/17/24 01/17/24 13:35 13:40 14:21 MCV MCH MCHC RDW Plt Count MPV Immature Gran % (Auto) Neut % (Auto) Lymph % (Auto) [place] % (Auto) Eos % (Auto) Baso % (Auto) Lymph # (Auto) [place] # (Auto) Eos # (Auto) Baso # (Auto) Abs Immat Gran (auto) Absolute Neuts (auto) Absolute Nucleated RBC Nucleated RBC % (auto) Smear Tech's Comments PT INR VBG pH 7.45 H VBG pCO2 45 VBG pO2 82 VBG HCO3 31 H VBG O2 Saturation 97.0 VBG Base Excess 6.8 Anion Gap Estim Creat Clear Calc Estimated GFR POC Glucose 83 116 H Random Glucose Lactic Acid Calcium Magnesium Total Bilirubin AST ALT Alkaline Phosphatase Troponin I High Sens B-Natriuretic Peptide Total Protein Albumin Urine Color Urine Appearance Urine pH Ur Specific [place] Urine Protein Urine Glucose (UA) Urine Ketones Urine Blood Urine Nitrite Ur Leukocyte Esterase Urine RBC Urine WBC Ur Squamous Epith Cells Urine Bacteria Hyaline Casts 01/17/24 01/17/24 01/17/24 14:38 15:26 18:43 MCV MCH MCHC RDW Plt Count MPV Immature Gran % (Auto) Neut % (Auto) Lymph % (Auto) [place] % (Auto) Eos % (Auto) Baso % (Auto) Lymph # (Auto) [place] # (Auto) Eos # (Auto) Baso # (Auto) Abs Immat Gran (auto) Absolute Neuts (auto) Absolute Nucleated RBC Nucleated RBC % (auto) Smear Tech's Comments PT INR VBG pH VBG pCO2 VBG pO2 VBG HCO3 VBG O2 Saturation VBG Base Excess Anion Gap Estim Creat Clear Calc Estimated GFR POC Glucose 97 210 H Random Glucose Lactic Acid Calcium Magnesium Total Bilirubin AST ALT Alkaline Phosphatase Troponin I High Sens B-Natriuretic Peptide Total Protein Albumin Urine Color Yellow Urine Appearance Clear Urine pH 5.0 Ur Specific [place] 1.015 Urine Protein Trace Urine Glucose (UA) Negative Urine Ketones Negative Urine Blood Trace H Urine Nitrite Negative Ur Leukocyte Esterase Small (1+) H Urine RBC 0-2 Urine WBC 0-5 Ur Squamous Epith Cells 0-2 Urine Bacteria None Seen Hyaline Casts 3-5 01/17/24 01/17/24 01/18/24 19:57 21:46 01:50 MCV MCH MCHC RDW Plt Count MPV Immature Gran % (Auto) Neut % (Auto) Lymph % (Auto) [place] % (Auto) Eos % (Auto) Baso % (Auto) Lymph # (Auto) [place] # (Auto) Eos # (Auto) Baso # (Auto) Abs Immat Gran (auto) Absolute Neuts (auto) Absolute Nucleated RBC Nucleated RBC % (auto) Smear Tech's Comments PT INR VBG pH VBG pCO2 VBG pO2 VBG HCO3 VBG O2 Saturation VBG Base Excess Anion Gap Estim Creat Clear Calc Estimated GFR POC Glucose 262 H 256 H 257 H Random Glucose Lactic Acid Calcium Magnesium Total Bilirubin AST ALT Alkaline Phosphatase Troponin I High Sens B-Natriuretic Peptide Total Protein Albumin Urine Color Urine Appearance Urine pH Ur Specific [place] Urine Protein Urine Glucose (UA) Urine Ketones Urine Blood Urine Nitrite Ur Leukocyte Esterase Urine RBC Urine WBC Ur Squamous Epith Cells Urine Bacteria Hyaline Casts 01/18/24 01/18/24 01/18/24 04:13 06:19 07:38 MCV MCH MCHC RDW Plt Count MPV Immature Gran % (Auto) Neut % (Auto) Lymph % (Auto) [place] % (Auto) Eos % (Auto) Baso % (Auto) Lymph # (Auto) [place] # (Auto) Eos # (Auto) Baso # (Auto) Abs Immat Gran (auto) Absolute Neuts (auto) Absolute Nucleated RBC Nucleated RBC % (auto) Smear Tech's Comments PT INR VBG pH VBG pCO2 VBG pO2 VBG HCO3 VBG O2 Saturation VBG Base Excess Anion Gap Estim Creat Clear Calc Estimated GFR POC Glucose 194 H 168 H 159 H Random Glucose Lactic Acid Calcium Magnesium Total Bilirubin AST ALT Alkaline Phosphatase Troponin I High Sens B-Natriuretic Peptide Total Protein Albumin Urine Color Urine Appearance Urine pH Ur Specific [place] Urine Protein Urine Glucose (UA) Urine Ketones Urine Blood Urine Nitrite Ur Leukocyte Esterase Urine RBC Urine WBC Ur Squamous Epith Cells Urine Bacteria Hyaline Casts 01/18/24 01/18/24 07:40 11:19 MCV MCH MCHC RDW Plt Count MPV Immature Gran % (Auto) Neut % (Auto) Lymph % (Auto) [place] % (Auto) Eos % (Auto) Baso % (Auto) Lymph # (Auto) [place] # (Auto) Eos # (Auto) Baso # (Auto) Abs Immat Gran (auto) Absolute Neuts (auto) Absolute Nucleated RBC Nucleated RBC % (auto) Smear Tech's Comments PT INR VBG pH VBG pCO2 VBG pO2 VBG HCO3 VBG O2 Saturation VBG Base Excess Anion Gap 12 Estim Creat Clear Calc 60.1 Estimated GFR > 60 POC Glucose 289 H Random Glucose 159 H Lactic Acid Calcium 8.4 Magnesium Total Bilirubin AST ALT Alkaline Phosphatase Troponin I High Sens B-Natriuretic Peptide 432 H Total Protein Albumin Urine Color Urine Appearance Urine pH Ur Specific [place] Urine Protein Urine Glucose (UA) Urine Ketones Urine Blood Urine Nitrite Ur Leukocyte Esterase Urine RBC Urine WBC Ur Squamous Epith Cells Urine Bacteria Hyaline Casts Microbiology Microbiology Results: Microbiology 01/17/24 Unknown Urine Culture - Final Urine clean catch - Urine purvis top Assessment and Plan (1) CHF exacerbation: Status: Acute Plan 88 year old man admitted for hypoglycemia and mild congestive heart failure Diabetes mellitus type 2 with Hypoglycemia. Hypoglycemia resolved Found unresponsive at home As per EMS blood sugar was 40, given dextrose with good elevation in blood sugar Will continue sliding scale, ADA diet Monitor blood sugar closely and adjust medications Heart failure with preserved ejection fraction last echocardiogram in August of 2023 EF 50-55% Continue supplemental oxygen IV Lasix 40 mg daily Cardiology consultation Monitor on telemetry Paroxysmal atrial fibrillation No RVR Continue apixaban and beta-jas Hypertension Stable blood pressure, continue home medications COPD No exacerbation Continue albuterol as needed History of CAD Continue statin DVT prophylaxis with apixaban Attending Dr. Penn Full code continue hospital stay for acute heart failure exacerbation with noted hypoglycemia requiring IV medications and specialty consultation. Due to patient's age and other comorbidities he is at high risk for decompensation. Quality Stroke Does the patient have a stroke diagnosis?: No VTE Prior VTE?: No VTE Risk Level:: Medical - moderate - high VTE Device Contraindication: Treatment Not Indicated VTE Drug Contraindication: N/A - Med Ordered
[2024-01-18 16:56] LABS: Glucose, Whole Blood 223 mg/dL (60-115)
[2024-01-18] MEDS: Docusate Sodium 100 MG CAPSULE PO (17:27)
[2024-01-18 21:51] LABS: Glucose, Whole Blood 283 mg/dL (60-115)
[2024-01-18] MEDS: Atorvastatin Calcium 40 MG TABLET PO (21:54)
[2024-01-19] VITALS (9 sets, daily range): BP systolic 112–135; BP diastolic 56–78; PULSE 70–95; RESP 16–20; TEMP 35.9–36.7; O2SAT 96–99
[2024-01-19] MEDS: 0.9 % Sodium Chloride Flush 3 ML SYRINGE IVFLUSH ×4 (01:22→20:42)
[2024-01-19 06:26] LABS: Anion Gap 11 (12-20); Blood Urea Nitrogen 22 mg/dL (9-16); Calcium 8.5 mg/dL (8.4-10.2); Carbon Dioxide 30 mmol/L (22-29); Chloride 104 mmol/L (96-108); Creatinine Clr Calc Pharmacy 59.5; Estimated Glomerular Filt Rate > 60; Glucose Random 218 mg/dL (60-115); Potassium 3.6 mmol/L (3.3-5.1); Sodium 141 mmol/L (135-145)
[2024-01-19 07:02] LABS: Glucose, Whole Blood 201 mg/dL (60-115)
[2024-01-19] MEDS: Isosorbide Mononitrate 30 MG TAB.ER.24H PO (08:19)
[2024-01-19] MEDS: Metoprolol Tartrate 50 MG TABLET PO ×2 (08:19→20:41)
[2024-01-19] MEDS: Ascorbic Acid 500 MG TABLET 1000 MG PO (08:19)
[2024-01-19] MEDS: Zinc Sulfate 220 MG CAPSULE PO (08:19)
[2024-01-19] MEDS: Multivitamin TABLET 1 TAB PO (08:19)
[2024-01-19] MEDS: Losartan Potassium 25 MG TABLET PO (08:19)
[2024-01-19] MEDS: Cholecalciferol (Vitamin D3) 25 MCG TABLET 125 MCG PO (08:19)
[2024-01-19] MEDS: Pregabalin 150 MG CAPSULE PO ×4 (08:19→20:41)
[2024-01-19] MEDS: Furosemide 40 MG/4 ML VIAL IVPUSH (08:20)
[2024-01-19] MEDS: Lidocaine 4 % Patch ADH..PATCH 1 PATCH TRANSDERMA (08:20)
[2024-01-19] MEDS: Insulin Lispro 100 UNIT/ML 3 ML VIAL SUBCUT ×4 (08:21→21:36)
[2024-01-19] MEDS: Ammonium Lactate 12 % Cream 140 GM TUBE 1 APPL TOPICAL (08:33)
[2024-01-19] MEDS: Apixaban 5 MG TABLET PO ×2 (08:52→20:42)
--- NOTE | 2024-01-19 09:32 | PM.PNCARD ---
Subjective Subjective Date of Service: 01/19/24 Interval history: Admitted for question of congestive heart failure hyperglycemia but he states he feels fine. He is denying any clear-cut shortness of breath. He states he always has some leg swelling. He states he feels fine today. Review of Systems Review of Systems Yes all other systems are reviewed and are negative Constitutional: Reports as per HPI and Reports no additional constitutional complaints Eyes: Reports as per HPI and Denies no additional eye complaints Denies system reviewed and no additional complaints, except as documented and Reports as per HPI Cardiovascular: Reports as per HPI, Reports no additional cardiovascular complaints, Denies acrocyanosis, Denies cool extremities, Denies chest pain, Reports leg edema, Denies lightheadedness, Denies palpitations and Denies dyspnea Respiratory: Reports as per HPI, Denies no additional respiratory complaints and Denies dyspnea Gastrointestinal: Reports as per HPI and Denies no additional gastrointestinal complaints Genitourinary: Reports no additional male genitourinary complaints and Reports as per HPI Musculoskeletal: Reports no additional musculoskeletal complaints and Reports as per HPI Skin/Breast: Reports system reviewed and no additional complaints, except as docu Reports system reviewed and no additional complaints, except as documented and Reports as per HPI Psychiatric: Reports no additional psychiatric complaints and Reports as per HPI Endocrine: Reports no additional endocrine complaints, Reports as per HPI and Denies palpitations Hematologic/Lymphatic: Reports no additional hematologic/lymphatic complaints and Reports as per HPI Allergic/Immunologic: Reports no additional allergic/immunologic complaints and Reports as per HPI Physical Exam Vital Signs: Last Vital Signs Temp 97.4 F 01/19/24 07:36 Pulse 70 01/19/24 08:19 Resp 20 01/19/24 07:36 BP 126/78 01/19/24 08:20 Pulse Ox 99 01/19/24 07:36 O2 Del Method Room Air 01/19/24 07:36 BMI result Body Mass Index 29.5 Const General: comfortable and no acute distress Orientation/consciousness: patient oriented x3 HEENT Other: Unremarkable Head: Yes normal to inspection Neck Neck: Yes normal visual inspection Chest Chest palpation & inspection: normal inspection of the chest Resp Auscultation: clear to auscultation bilaterally Cardio Palpation: normal PMI Heart sounds: S1 normal heart sound present, S2 normal heart sound present, no gallops, no murmurs and no rubs GI Palpation (GI): Soft to palpation Back/Spine/Pelvis Other: unremarkable Skin General skin exam: no rashes or lesions noted Neuro General: patient oriented x3 Extrem General: Yes normal to inspection Psych Mental Status: mental status grossly normal Objective Labs and Meds 01/17/24 13:29 01/19/24 06:04 Lab results: Laboratory Results - last 24 hr 01/18/24 01/18/24 01/18/24 11:19 16:52 21:47 Sodium Potassium Chloride Carbon Dioxide Anion Gap BUN Creatinine Estim Creat Clear Calc Estimated GFR POC Glucose 289 H 223 H 283 H Random Glucose Calcium 01/19/24 01/19/24 06:04 06:58 Sodium 141 Potassium 3.6 Chloride 104 Carbon Dioxide 30 H Anion Gap 11 L BUN 22 H Creatinine 0.93 Estim Creat Clear Calc 59.5 Estimated GFR > 60 POC Glucose 201 H Random Glucose 218 H Calcium 8.5 Progress Note: A&P Assessment and plan (1) Acute on chronic diastolic (congestive) heart failure: Status: Acute Plan In the recent echocardiogram, LVEF was 50-55%. No wall motion abnormalities. No overt valvular findings. Mild RV dilatation. Cardiac BNP is in the 400s. Previous levels have been in the 100s, 200s, 300s at different times. Overall, variable. EKG with ventricular paced rhythm. Unclear underlying rhythm and could be atrial fibrillation. Overall, possible component of heart failure but he states he always has some leg swelling. He feels fine today. May switch to oral diuretics. Other meds as currently listed. Discharge planning. Discussed with Clau Franco. Time Spent With Patient Time: Total time managing care of this patient today 40 minutes. This includes time spent in review of chart, laboratory data, imaging studies, review of telemetry, counseling patient, discussion with hospitalist, RN, documentation, coordination of care. Progress Note: Quality Stroke Does the patient have a stroke diagnosis?: No Procedures Date of Service Date of Service: 01/19/24
[2024-01-19 10:55] LABS: Glucose, Whole Blood 321 mg/dL (60-115)
--- NOTE | 2024-01-19 12:43 | P.PNIM_ITS ---
Subjective Subjective Date of Service: 01/19/24 Review of Systems Follow up CHF, hypoglycemia feeling better today Physical Exam 2 Vital Signs: Vital Signs: Last Vital Signs Temp 97.0 F 01/19/24 11:26 Pulse 76 01/19/24 11:26 Resp 20 01/19/24 11:26 BP 112/64 01/19/24 11:26 Pulse Ox 96 01/19/24 11:26 O2 Del Method Room Air 01/19/24 11:26 BMI result Body Mass Index 29.5 Appearing in no acute distress lung sounds are clear to auscultation heart regular rate rhythm, clear S1, S2 positive bowel sounds, abdomen is soft, nontender neuro patient is alert x3, no focal deficits chronic bilateral LE edema Objective Data Active Medications Acetaminophen (Acetaminophen 325 Mg Tablet) 650 mg PO Q6H PRN PRN Reason: Pain, Mild (Pain Scale 1-3) Al Hydroxide/Mg Hydroxide (Magnesium Hydrox/Alum Hydrox 30 Ml Oral.Susp) 30 ml PO Q4H PRN PRN Reason: Heartburn/Nausea Apixaban (Apixaban 5 Mg Tablet) 5 mg PO BID [facility] Last Admin: 01/19/24 08:52 Dose: 5 mg Documented By: JONAS Ascorbic Acid (Ascorbic Acid 500 Mg Tablet) 1,000 mg PO DAILY [facility] Last Admin: 01/19/24 08:19 Dose: 1,000 mg Documented By: JONAS Atorvastatin Calcium (Atorvastatin Calcium 40 Mg Tablet) 40 mg PO BEDTIME [facility] Last Admin: 01/18/24 21:54 Dose: 40 mg Documented By: JOSEF Docusate Sodium (Docusate Sodium 100 Mg Capsule) 100 mg PO DAILY PRN PRN Reason: Constipation Last Admin: 01/18/24 17:27 Dose: 100 mg Documented By: JONAS Fluticasone/Vilanterol (Fluticasone/Vilanterol 100/25 Blst.W.Dev) 1 puff INHALE DAILY [facility] Last Admin: 01/19/24 12:24 Dose: Not Given Documented By: SO Non-Admin Reason: Med Not Available Furosemide (Furosemide 40 Mg/4 Ml Vial) 40 mg IVPUSH DAILY [facility]; Protocol Last Admin: 01/19/24 08:20 Dose: 40 mg Documented By: JONAS Glucose (Glucose Gel 15 Gm Gel..Gram.) 15 gm PO Q15M PRN; Protocol PRN Reason: per Hypoglycemia Standing Ord. Glucose (Glucose Gel 15 Gm Gel..Gram.) 15 gm PO Q15M PRN; Protocol PRN Reason: per Hypoglycemia Standing Ord. Dextrose (D10) 250 mls @ 750 mls/hr IV Q15M PRN; Protocol PRN Reason: per Hypoglycemia Standing Ord. Dextrose (D10) 250 mls @ 750 mls/hr IV Q15M PRN; Protocol PRN Reason: per Hypoglycemia Standing Ord. Insulin Human Lispro (Insulin Lispro 100 Unit/Ml 3 Ml Vial) 0 unit SUBCUT QIDACHS [facility]; Protocol Last Admin: 01/19/24 11:14 Dose: 8 unit Documented By: JONAS Isosorbide Mononitrate (Isosorbide Mononitrate 30 Mg Tab.Er.24h) 30 mg PO DAILY [facility]; Protocol Last Admin: 01/19/24 08:19 Dose: 30 mg Documented By: JONAS Lactic Acid (Ammonium Lactate 12 % Cream 140 Gm Tube) 1 appl TOPICAL BID [facility]; Protocol Last Admin: 01/19/24 08:33 Dose: 1 appl Documented By: JONAS Lidocaine (Lidocaine 4 % Patch Adh..Patch) 1 patch TRANSDERMA DAILY [facility]; Protocol Last Admin: 01/19/24 08:20 Dose: 1 patch Documented By: JONAS Losartan Potassium (Losartan Potassium 25 Mg Tablet) 25 mg PO DAILY [facility]; Protocol Last Admin: 01/19/24 08:19 Dose: 25 mg Documented By: JONAS Melatonin (Melatonin 3 Mg Tablet) 6 mg PO BEDTIME PRN PRN Reason: Insomnia Metoprolol Tartrate (Metoprolol Tartrate 50 Mg Tablet) 50 mg PO BID [facility]; Protocol Last Admin: 01/19/24 08:19 Dose: 50 mg Documented By: JONAS Multivitamins/Vitamin C (Multivitamin Tablet) 1 tab PO DAILY [facility] Last Admin: 01/19/24 08:19 Dose: 1 tab Documented By: JONAS Pregabalin (Pregabalin 150 Mg Capsule) 150 mg PO QID [facility] Last Admin: 01/19/24 08:19 Dose: 150 mg Documented By: JONAS Sodium Biphosphate/Sodium Phosphate (Sodium Phosphate,Linn-Dibasic 133 Ml Enema) 133 ml RI ONCE PRN PRN Reason: Constipation Sodium Chloride (0.9 % Sodium Chloride Flush 3 Ml Syringe) 3 ml IVFLUSH QSHIFT [facility] Last Admin: 01/19/24 08:20 Dose: 3 ml Documented By: JONAS Vitamin D (Cholecalciferol (Vitamin D3) 25 Mcg Tablet) 125 mcg PO DAILY [facility] Last Admin: 01/19/24 08:19 Dose: 125 mcg Documented By: JONAS Zinc Sulfate (Zinc Sulfate 220 Mg Capsule) 220 mg PO DAILY [facility] Last Admin: 01/19/24 08:19 Dose: 220 mg Documented By: JONAS Labs 01/17/24 13:29 01/19/24 06:04 Labs: Laboratory Results - last 24 hr 01/18/24 01/18/24 01/19/24 16:52 21:47 06:04 Anion Gap 11 L Estim Creat Clear Calc 59.5 Estimated GFR > 60 POC Glucose 223 H 283 H Random Glucose 218 H Calcium 8.5 01/19/24 01/19/24 06:58 10:52 Anion Gap Estim Creat Clear Calc Estimated GFR POC Glucose 201 H 321 H Random Glucose Calcium Microbiology Microbiology Results: Microbiology 01/17/24 13:29 Blood Culture - Preliminary Blood - Venous No growth after 24 hours. 01/17/24 13:29 Blood Culture - Preliminary Blood - Venous No growth after 24 hours. 01/17/24 Unknown Urine Culture - Final Urine clean catch - Urine purvis top Assessment and Plan (1) CHF exacerbation: Status: Acute Plan 88 year old man admitted for hypoglycemia and mild congestive heart failure Diabetes mellitus type 2 with Hypoglycemia. Hypoglycemia resolved Found unresponsive at home As per EMS blood sugar was 40, given dextrose with good elevation in blood sugar Will continue sliding scale, ADA diet Monitor blood sugar closely and adjust medications Mild Heart failure with preserved ejection fraction. resolved last echocardiogram in August of 2023 EF 50-55% Continue supplemental oxygen IV Lasix 40 mg daily , transition to oral Cardiology consultation> Monitor on telemetry Paroxysmal atrial fibrillation No RVR Continue apixaban and beta-jas Hypertension Stable blood pressure, continue home medications COPD No exacerbation Continue albuterol as needed History of CAD Continue statin DVT prophylaxis with apixaban Attending Dr. Larkin Full code continue hospital stay for acute heart failure exacerbation with noted hypoglycemia requiring IV medications and specialty consultation. Due to patient's age and other comorbidities he is at high risk for decompensation. Quality Stroke Does the patient have a stroke diagnosis?: No VTE Prior VTE?: No VTE Risk Level:: Medical - moderate - high VTE Device Contraindication: Treatment Not Indicated VTE Drug Contraindication: N/A - Med Ordered
[2024-01-19] MEDS: Sodium Phosphate,Mono-Dibasic 133 ML ENEMA PR (12:55)
--- NOTE | 2024-01-19 13:21 | HO.WOUND ---
Wound Consult: Initial 88yr old?Male admitted to [facility] on [facility]/17/24 - See progress notes and H&P for detailed history.? Wound consult placed for Right Heel wound.? Patient agreeable to assessment and photo documentation.? 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 Left Lateral Heel Left Lateral Heel Etiology: ?Deep Tissue Injury?Present on Admission Wound Bed: appears to be resolving DTI may have been a blister Drainage / Odor: None Edges: ? well defined Avani wound pink and intact No Induration, Fluctuance or Warmth noted Pain: reports pain Goals of Treatment: ? foam dressing to aid in pressure redistribution Right Lateral Heel Etiology: ??Diabetic wound Present on Admission Wound Bed: red moist tissue Drainage / Odor: scant serosang Edges: ? irregular Avani wound: ? callused tissue - No Induration, Fluctuance or Warmth noted Pain: denies at this time Goals of Treatment: Right lateral Ankle Etiology: ?Stage 2 Pressure Injury ?Present on Admission Wound Bed: resolving blister over bony prominence Drainage / Odor: None Edges: ? well defined Avani wound: Intact ? No Induration, Fluctuance or Warmth noted Pain: tenderness reported Goals of Treatment: Xeroform and foam dressing Recommendations: 1. Turn and Reposition every 2 hours and as needed for patient comfort.? Use pillows or wedges to support off loading positions. 2. Off Load all bony prominences with use of pillows and heel boots if needed.? Apply Preventative foams where needed. ? 3. Monitor for incontinence and moisture control, use barrier creams when needed for prevention and treatment. 4. Provide adequate and supplemental nutrition.? 5. Order or Continue low air loss mattress. 6. When applicable maintain blood glucose levels per Providers order. 7. Left Heel - Elevate heel off of bed surface with pillows. Apply foam dressing, peel back for assessment and change every 3 days. 8. Right Lateral Heel - Cleanse with Ns moist gauze, pat dry. Lightly pack wound bed with cut to size durafiber AG. Cover with foam dressing. Change every other day. 9. Right Lateral Ankle - Cleanse with Ns moist gauze, cover wound bed with xeroform. Cover with foam dressing change every other day. 10. Skin Tears - Cleanse with normal saline, pat dry. ?Apply double layer Xeroform secure with Abd pads, gauze wrap and tape. ?Do not apply tape to patients skin.? Avoid Adhesive application to skin - when necessary, apply skin prep prior.? Re-consult wound care Nurse for wound deterioration or wound changes.
[2024-01-19 15:22] LABS: Glucose, Whole Blood 343 mg/dL (60-115)
[2024-01-19 18:42] LABS: B Type Natriuretic Peptide 278 pg/mL (<100)
[2024-01-19 20:15] LABS: Glucose, Whole Blood 331 mg/dL (60-115)
[2024-01-19] MEDS: Acetaminophen 325 MG TABLET 650 MG PO (20:41)
[2024-01-19] MEDS: Atorvastatin Calcium 40 MG TABLET PO (20:41)
[2024-01-19] MEDS: Melatonin 3 MG TABLET 6 MG PO (20:41)
[2024-01-19] MEDS: Docusate Sodium 100 MG CAPSULE PO (20:42)
[2024-01-20] VITALS (8 sets, daily range): BP systolic 101–133; BP diastolic 56–71; PULSE 70–73; RESP 16–20; TEMP 36.1–36.9; O2SAT 94–99; BMI 29.5
[2024-01-20 07:16] LABS: Glucose, Whole Blood 257 mg/dL (60-115)
[2024-01-20] MEDS: Cholecalciferol (Vitamin D3) 25 MCG TABLET 125 MCG PO (08:26)
[2024-01-20] MEDS: Insulin Lispro 100 UNIT/ML 3 ML VIAL SUBCUT ×4 (08:26→20:58)
[2024-01-20] MEDS: Torsemide 20 MG TABLET PO (08:27)
[2024-01-20] MEDS: Zinc Sulfate 220 MG CAPSULE PO (08:27)
[2024-01-20] MEDS: Losartan Potassium 25 MG TABLET PO (08:27)
[2024-01-20] MEDS: Apixaban 5 MG TABLET PO ×2 (08:27→20:36)
[2024-01-20] MEDS: Multivitamin TABLET 1 TAB PO (08:27)
[2024-01-20] MEDS: Metoprolol Tartrate 50 MG TABLET PO ×2 (08:27→20:35)
[2024-01-20] MEDS: Isosorbide Mononitrate 30 MG TAB.ER.24H PO (08:27)
[2024-01-20] MEDS: Pregabalin 150 MG CAPSULE PO ×4 (08:27→20:36)
[2024-01-20] MEDS: Ascorbic Acid 500 MG TABLET 1000 MG PO (08:27)
[2024-01-20] MEDS: Lidocaine 4 % Patch ADH..PATCH 1 PATCH TRANSDERMA (08:28)
[2024-01-20] MEDS: Fluticasone/Vilanterol 100/25 BLST.W.DEV 1 PUFF INHALE (09:02)
--- NOTE | 2024-01-20 10:30 | P.PNIM_ITS ---
Subjective Subjective Date of Service: 01/20/24 Review of Systems Follow up CHF, hypoglycemia feeling better today Physical Exam 2 Vital Signs: Vital Signs: Last Vital Signs Temp 98.4 F 01/20/24 07:41 Pulse 73 01/20/24 09:04 Resp 16 01/20/24 09:04 BP 126/71 01/20/24 07:41 Pulse Ox 97 01/20/24 07:41 O2 Del Method Room Air 01/20/24 07:41 BMI result Body Mass Index 29.5 Appearing in no acute distress lung sounds are clear to auscultation heart regular rate rhythm, clear S1, S2 positive bowel sounds, abdomen is soft, nontender neuro patient is alert x3, no focal deficits chronic LE edema Objective Data Active Medications Acetaminophen (Acetaminophen 325 Mg Tablet) 650 mg PO Q6H PRN PRN Reason: Pain, Mild (Pain Scale 1-3) Last Admin: 01/19/24 20:41 Dose: 650 mg Documented By: SUZANNE Al Hydroxide/Mg Hydroxide (Magnesium Hydrox/Alum Hydrox 30 Ml Oral.Susp) 30 ml PO Q4H PRN PRN Reason: Heartburn/Nausea Apixaban (Apixaban 5 Mg Tablet) 5 mg PO BID [facility] Last Admin: 01/20/24 08:27 Dose: 5 mg Documented By: BRIAN Ascorbic Acid (Ascorbic Acid 500 Mg Tablet) 1,000 mg PO DAILY [facility] Last Admin: 01/20/24 08:27 Dose: 1,000 mg Documented By: BRIAN Atorvastatin Calcium (Atorvastatin Calcium 40 Mg Tablet) 40 mg PO BEDTIME [facility] Last Admin: 01/19/24 20:41 Dose: 40 mg Documented By: SUZANNE Docusate Sodium (Docusate Sodium 100 Mg Capsule) 100 mg PO DAILY PRN PRN Reason: Constipation Last Admin: 01/19/24 20:42 Dose: 100 mg Documented By: SUZANNE Fluticasone/Vilanterol (Fluticasone/Vilanterol 100/25 Blst.W.Dev) 1 puff INHALE DAILY [facility] Last Admin: 01/20/24 09:02 Dose: 1 puff Documented By: KATHERIN Glucose (Glucose Gel 15 Gm Gel..Gram.) 15 gm PO Q15M PRN; Protocol PRN Reason: per Hypoglycemia Standing Ord. Glucose (Glucose Gel 15 Gm Gel..Gram.) 15 gm PO Q15M PRN; Protocol PRN Reason: per Hypoglycemia Standing Ord. Dextrose (D10) 250 mls @ 750 mls/hr IV Q15M PRN; Protocol PRN Reason: per Hypoglycemia Standing Ord. Dextrose (D10) 250 mls @ 750 mls/hr IV Q15M PRN; Protocol PRN Reason: per Hypoglycemia Standing Ord. Insulin Human Lispro (Insulin Lispro 100 Unit/Ml 3 Ml Vial) 0 unit SUBCUT QIDACHS [facility]; Protocol Last Admin: 01/20/24 08:26 Dose: 6 unit Documented By: BRIAN Isosorbide Mononitrate (Isosorbide Mononitrate 30 Mg Tab.Er.24h) 30 mg PO DAILY [facility]; Protocol Last Admin: 01/20/24 08:27 Dose: 30 mg Documented By: BRIAN Lactic Acid (Ammonium Lactate 12 % Cream 140 Gm Tube) 1 appl TOPICAL BID [facility]; Protocol Last Admin: 01/19/24 23:13 Dose: Not Given Documented By: SUZANNE Non-Admin Reason: Patient Asleep Lidocaine (Lidocaine 4 % Patch Adh..Patch) 1 patch TRANSDERMA DAILY [facility]; Protocol Last Admin: 01/20/24 08:28 Dose: 1 patch Documented By: BRIAN Losartan Potassium (Losartan Potassium 25 Mg Tablet) 25 mg PO DAILY [facility]; Protocol Last Admin: 01/20/24 08:27 Dose: 25 mg Documented By: BRIAN Melatonin (Melatonin 3 Mg Tablet) 6 mg PO BEDTIME PRN PRN Reason: Insomnia Last Admin: 01/19/24 20:41 Dose: 6 mg Documented By: SUZANNE Metoprolol Tartrate (Metoprolol Tartrate 50 Mg Tablet) 50 mg PO BID [facility]; Protocol Last Admin: 01/20/24 08:27 Dose: 50 mg Documented By: BRIAN Multivitamins/Vitamin C (Multivitamin Tablet) 1 tab PO DAILY [facility] Last Admin: 01/20/24 08:27 Dose: 1 tab Documented By: BRIAN Pregabalin (Pregabalin 150 Mg Capsule) 150 mg PO QID [facility] Last Admin: 01/20/24 08:27 Dose: 150 mg Documented By: BRIAN Sodium Biphosphate/Sodium Phosphate (Sodium Phosphate,[place]-Dibasic 133 Ml Enema) 133 ml VT ONCE PRN PRN Reason: Constipation Last Admin: 01/19/24 12:55 Dose: 133 ml Documented By: JONAS Sodium Chloride (0.9 % Sodium Chloride Flush 3 Ml Syringe) 3 ml IVFLUSH QSHIFT [facility] Last Admin: 01/19/24 20:42 Dose: 3 ml Documented By: SUZANNE Torsemide (Torsemide 20 Mg Tablet) 20 mg PO DAILY [facility]; Protocol Last Admin: 01/20/24 08:27 Dose: 20 mg Documented By: BRIAN Vitamin D (Cholecalciferol (Vitamin D3) 25 Mcg Tablet) 125 mcg PO DAILY [facility] Last Admin: 01/20/24 08:26 Dose: 125 mcg Documented By: BRIAN Zinc Sulfate (Zinc Sulfate 220 Mg Capsule) 220 mg PO DAILY [facility] Last Admin: 01/20/24 08:27 Dose: 220 mg Documented By: BRIAN Labs 01/17/24 13:29 01/19/24 06:04 Labs: Laboratory Results - last 24 hr 01/19/24 01/19/24 01/19/24 10:52 15:18 18:13 POC Glucose 321 H 343 H B-Natriuretic Peptide 278 H 01/19/24 01/20/24 20:08 07:12 POC Glucose 331 H 257 H B-Natriuretic Peptide Microbiology Microbiology Results: Microbiology 01/17/24 13:29 Blood Culture - Preliminary Blood - Venous No growth after 48 hours. 01/17/24 13:29 Blood Culture - Preliminary Blood - Venous No growth after 48 hours. Assessment and Plan (1) CHF exacerbation: Status: Acute Plan 88 year old man admitted for hypoglycemia and mild congestive heart failure Rectal pain had constipation but had BM yesterday after edema no rectal bleeding GI consultation Diabetes mellitus type 2 with Hypoglycemia. Hypoglycemia resolved Found unresponsive at home As per EMS blood sugar was 40, given dextrose with good elevation in blood sugar Will continue sliding scale, ADA diet Monitor blood sugar closely and adjust medications Mild Heart failure with preserved ejection fraction. resolved last echocardiogram in August of 2023 EF 50-55% Continue supplemental oxygen s/p IV Lasix 40 mg daily , transitioned to oral Cardiology consultation>mild CHF, continue home lasix, chronic LE edema Monitor on telemetry Paroxysmal atrial fibrillation No RVR Continue apixaban and beta-jas Hypertension Stable blood pressure, continue home medications COPD No exacerbation Continue albuterol as needed History of CAD Continue statin DVT prophylaxis with apixaban Attending Dr. Larkin Full code DISPO plan for acute rehab if patient accepted, otherwise home with services continue hospital stay for acute heart failure exacerbation with noted hypoglycemia requiring IV medications and specialty consultation. Due to patient's age and other comorbidities he is at high risk for decompensation. Quality Stroke Does the patient have a stroke diagnosis?: No VTE Prior VTE?: No VTE Risk Level:: Medical - moderate - high VTE Device Contraindication: Treatment Not Indicated VTE Drug Contraindication: N/A - Med Ordered
[2024-01-20 10:50] LABS: Glucose, Whole Blood 349 mg/dL (60-115)
[2024-01-20] MEDS: 0.9 % Sodium Chloride Flush 3 ML SYRINGE IVFLUSH ×3 (11:06→20:59)
[2024-01-20] MEDS: Ammonium Lactate 12 % Cream 140 GM TUBE 1 APPL TOPICAL (11:08)
--- NOTE | 2024-01-20 11:13 | MHC.CM.PN ---
CM met with pt to ask his choice for AR and STR if acute is not available. He said that he will only go to [facility] or [facility], and that he will not go anywhere else. Referrals placed.
--- NOTE | 2024-01-20 11:13 | MHC.CLN ---
PT WITH INCREASED NUTRITION RISK R/T PRESSURE INJURIES PO INTAKE 100% DIET RX: 1800DM-RECOMMEND INCREASING TO 2200DM TO PROMOTE WOUND HEALING RECOMMEND ADDING ENSURE MAX BID TO INCREASE KCALS AND PROMOTE WOUND HEALING SUPP TO PROVIDE 300KCALS, 60G PROTEIN WITH 100% ACCEPTANCE MONITOR PO INTAKE AND ENCOURAGE SUPPLEMENTS SEE ALSO FULL CLINICAL NUTRITION ASSESSMENT
[2024-01-20 11:17] LABS: Hematocrit 30.9 % (42.0-52.0); Hemoglobin 9.9 g/dl (14.0-18.0); Mean Corpuscular Hemoglobin 29.6 pg (27.0-33.0); Mean Corpuscular Volume 92.5 fL (80.0-98.0); Mean Platelet Volume 10.5 fL (9.4-12.4); Platelet Count 122 X10*3/uL (160-400); Red Blood Count 3.34 X10*6/uL (4.60-5.80); White Blood Count 5.6 X10*3/uL (4.8-10.8)
--- NOTE | 2024-01-20 14:57 | PC.NURSE ---
Addendum entered by Manasa Potts RN 01/20/24 16:17: laxatives administered , Enema NE given , pt had moderate hard BM on the commode Original Note: Patient reported intermittent pain in his rectum , made BRITTNEE Olguin is aware , GI consult was placed . Pt seen by DR Garcia , no other new orders at this time
[2024-01-20] MEDS: polyethylene glycoL 3350 17 GM POWD.PACK PO (15:26)
[2024-01-20] MEDS: Dicyclomine HCl 10 MG CAPSULE PO (15:26)
[2024-01-20] MEDS: Sodium Phosphate,Mono-Dibasic 133 ML ENEMA PR (15:51)
--- NOTE | 2024-01-20 15:59 | CONS_ITS ---
DATE OF SERVICE: 01/20/2024 REFERRING PHYSICIAN: Clau Franco NP REASON FOR CONSULTATION: Rectal pain. HISTORY OF PRESENT ILLNESS: Mr. Canales is a pleasant 88-year-old man, who was admitted to the hospital after presenting to the emergency department on January 16 with a change in mental status. Consultation is requested regarding the patient's complaints of rectal pain. He states he was having severe rectal pain yesterday, which improved after he was given an enema. He does have a feeling of incomplete evacuation and would like to have a bowel regimen to help keep his bowels regular. Evaluation in the emergency department was undertaken with laboratory studies, which have shown no evidence of GI bleeding. Imaging studies have shown lung infiltrates. He last underwent colonoscopy in November 2021 for evaluation of a change in bowel habits with hematochezia. This showed diverticulosis, rectal telangiectasias, and internal hemorrhoids. Small polyps were identified, but not removed by the endoscopist. Biopsies were negative for microscopic colitis. We reviewed this today. PAST MEDICAL HISTORY: 1. Congestive heart failure. 2. Urinary tract infections. 3. Atrial fibrillation. 4. Coronary artery disease with history of CO. 5. Thrombocytopenia. 6. Prostate cancer. 7. Hypertension. 8. Hyperlipidemia. 9. Diabetes mellitus. CURRENT MEDICATIONS: His current medication list is reviewed in the chart. ALLERGIES: THERE ARE NONE REPORTED. PAST SURGICAL HISTORY: Reviewed in the electronic medical record. REVIEW OF SYSTEMS: SKIN: No pruritus. HEENT: Negative. CARDIOPULMONARY: He denies shortness of breath or chest pain currently. GASTROINTESTINAL: As above. GENITOURINARY: Negative. NEUROPSYCHIATRIC: Negative. PHYSICAL EXAMINATION: GENERAL: Shows a pleasant male, lying comfortably in bed. He is tolerating a regular diet. VITAL SIGNS: Reviewed in electronic medical record and are stable. SKIN: Anicteric. HEENT: Shows no scleral icterus. NECK: Without lymphadenopathy or thyromegaly. LUNGS: Clear. HEART: Shows regular rate and rhythm. S1, S2. No murmur. ABDOMEN: Soft without focal masses or tenderness. Bowel sounds are present. No organomegaly is noted. EXTREMITIES: Remarkable for edema. LABORATORY DATA AND IMAGING STUDIES: Reviewed. IMPRESSION: Rectal pain. 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 We discussed this today. We recommended a p.r.n. Fleet enemas for his rectal discomfort. Addition of a stool softener and MiraLAX. He will also be started on dicyclomine to help with any spastic component to his discomfort. Thanks for asking me to see him. I will follow him in the hospital with you. MD SAVANNA Palm/YENY / [phone]
[2024-01-20 16:25] LABS: Glucose, Whole Blood 362 mg/dL (60-115)
[2024-01-20] MEDS: Acetaminophen 325 MG TABLET 650 MG PO (20:36)
[2024-01-20] MEDS: Atorvastatin Calcium 40 MG TABLET PO (20:36)
[2024-01-20] MEDS: Docusate Sodium 100 MG CAPSULE PO (20:36)
[2024-01-20] MEDS: Melatonin 3 MG TABLET 6 MG PO (20:36)
[2024-01-20 20:45] LABS: Glucose, Whole Blood 301 mg/dL (60-115)
[2024-01-21] VITALS (8 sets, daily range): BP systolic 101–123; BP diastolic 56–64; PULSE 69–72; RESP 16–20; TEMP 36.3–37.1; O2SAT 94–100
[2024-01-21] MEDS: Simethicone 80 MG TAB.CHEW 160 MG PO (00:09)
[2024-01-21] MEDS: oxyCODONE HCl Immed Release 15 MG TABLET PO (00:09)
[2024-01-21 07:58] LABS: Glucose, Whole Blood 309 mg/dL (60-115)
[2024-01-21] MEDS: Insulin Lispro 100 UNIT/ML 3 ML VIAL SUBCUT ×2 (08:21→12:18)
[2024-01-21] MEDS: Cholecalciferol (Vitamin D3) 25 MCG TABLET 125 MCG PO (08:22)
[2024-01-21] MEDS: Lidocaine 4 % Patch ADH..PATCH 1 PATCH TRANSDERMA (08:22)
[2024-01-21] MEDS: polyethylene glycoL 3350 17 GM POWD.PACK PO (08:22)
[2024-01-21] MEDS: Pregabalin 150 MG CAPSULE PO ×2 (08:23→12:18)
[2024-01-21] MEDS: Torsemide 20 MG TABLET PO (08:23)
[2024-01-21] MEDS: Docusate Sodium 100 MG CAPSULE PO (08:23)
[2024-01-21] MEDS: Losartan Potassium 25 MG TABLET PO (08:23)
[2024-01-21] MEDS: Zinc Sulfate 220 MG CAPSULE PO (08:23)
[2024-01-21] MEDS: Isosorbide Mononitrate 30 MG TAB.ER.24H PO (08:23)
[2024-01-21] MEDS: 0.9 % Sodium Chloride Flush 3 ML SYRINGE IVFLUSH (08:24)
[2024-01-21] MEDS: Ascorbic Acid 500 MG TABLET 1000 MG PO (08:24)
[2024-01-21] MEDS: Metoprolol Tartrate 50 MG TABLET PO (08:24)
[2024-01-21] MEDS: Multivitamin TABLET 1 TAB PO (08:24)
[2024-01-21] MEDS: Apixaban 5 MG TABLET PO (08:24)
[2024-01-21] MEDS: Fluticasone/Vilanterol 100/25 BLST.W.DEV 1 PUFF INHALE (08:36)
[2024-01-21] MEDS: Ammonium Lactate 12 % Cream 140 GM TUBE 1 APPL TOPICAL (11:24)
--- NOTE | 2024-01-21 11:32 | PM.DS ---
DS: Providers Provider Date of Service: 01/21/24 Date of admission: 01/17/24 16:06 Date of discharge: 01/21/24 Primary care physician: Jewel Rebolledo MD Consults: 01/17/24 17:01 Consult to Cardiology Routine Consulting Provider: [facility] Reason for consultation: CHF 01/18/24 15:26 Consult to Wound Care Routine Reason for consultation: Right foot wound Has provider been notified: Yes 01/20/24 10:30 Consult to Gastroenterology Routine Consulting Provider: Chapo Garcia Reason for consultation: severe rectal pain Attending physician on discharge: Basil Larkin Discharging clinician: Vita Boss DS: Diagnosis Discharge Diagnosis (1) CHF exacerbation: Status: Acute DS: Summary Hospital Course Hospital Course: From H&P on the day of admission 88-year-old man presented to the ER after being found unresponsive at home. Apparently his found him and called EMS. He was unresponsive in his recliner. Upon EMS arrival his glucose was noted to be 40, he was given a dose of D10 with elevation in his blood sugar patient reports the 1st thing he remembers is the EMS personnel taking care of him. He denied any recent illness, chest pain, nausea, vomiting, diarrhea, fall or injury. He had a chest x-ray in the ER which showed mild bibasilar infiltrates left more than right, diminished lung volume with no consolidation. Mildly decreased blood pressure with lowest reading of 94/52 but otherwise stable. Labs all within acceptable limits. Patient was given a dose of IV Zosyn, Lasix and 500 mL of IV fluids. He will be admitted for further management and treatment of acute hyperglycemia and mild congestive heart failure. Rectal pain had constipation but had BM yesterday after edema. No rectal bleeding. Seen in consultation by Gastroenterology, and symptoms consistent with proctalgia fugax and stool softeners recommended. Had bowel movement on the day of discharge. Diabetes mellitus type 2 with Hypoglycemia. Hypoglycemia resolved Found unresponsive at home As per EMS blood sugar was 40, given dextrose with good elevation in blood sugar On Tresiba 70 units daily at baseline. will reduce dose to 20 units - will likely need further titration. Monitor blood sugar close Mild Heart failure with preserved ejection fraction. resolved last echocardiogram in August of 2023 EF 50-55% s/p IV Lasix 40 mg daily , transitioned to oral Cardiology consultation>mild CHF, continue home diuretics Chronic wounds Right ankle stage II pressure injury. Present on admission, resolving blister over bony prominence. Right lateral heel diabetic wound present on admission. Left lateral heel deep tissue injury present on admission Left Heel - Elevate heel off of bed surface with pillows. Apply foam dressing, peel back for assessment and change every 3 days. Right Lateral Heel - Cleanse with Ns moist gauze, pat dry. Lightly pack wound bed with cut to size durafiber AG. Cover with foam dressing. Change every other day. Right Lateral Ankle - Cleanse with Ns moist gauze, cover wound bed with xeroform. Cover with foam dressing change every other day. Skin Tears - Cleanse with normal saline, pat dry. ?Apply double layer Xeroform secure with Abd pads, gauze wrap and tape. ?Do not apply tape to patients skin.? Avoid Adhesive application to skin - when necessary, apply skin prep prior.? -recommend to continue outpatient follow-up with Wound Care Clinic as previously scheduled Time Attestation Discharge Coordination Time (in mins): 32 Quality: Safe Use of Opioids Does Pt have an Active Cancer Diagnosis on the Problem List?: No Quality: Stroke Does the patient have a stroke diagnosis?: No Physical Exam Vital Signs: Vital Signs: Last Vital Signs Temp 98.2 F 01/21/24 08:00 Pulse 72 01/21/24 08:37 Resp 18 01/21/24 08:37 BP 122/60 01/21/24 08:24 Pulse Ox 99 01/21/24 08:00 O2 Del Method Room Air 01/21/24 08:00 BMI result Body Mass Index 29.5 Const: General: cooperative, comfortable, alert and awake Nutritional Appearance: average body habitus Orientation/consciousness: patient oriented x3 GI: Inspection: No distended Palpation (GI): Soft to palpation and nontender Neuro: General: patient oriented x3, moves all extremities and CN's II-XI intact bilaterally Extrem: Other: trace leg edema DS: Data Data Completed and Pending Completed studies during hospitalization [Text1]: Procedures Insertion of Infusion Device into Superior Vena Cava, Percutaneous Approach (12/29/20) Insertion of Pacemaker Lead into Right Atrium, Percutaneous Approach (12/29/20) Insertion of Pacemaker Lead into Right Ventricle, Percutaneous Approach (12/29/20) Insertion of Pacemaker, Dual Chamber into Chest Subcutaneous Tissue and Fascia, Open Approach (12/29/20) Irrigation of Genitourinary Tract using Irrigating Substance, Via Natural or Artificial Opening (01/04/23) Labs on day of discharge: Laboratory Results - last 24 hr 01/20/24 01/20/24 01/21/24 16:22 20:36 07:50 POC Glucose 362 H* 301 H 309 H Preliminary micro results at discharge 01/17/24 13:29 Blood Culture - Preliminary Blood - Venous No growth after 48 hours. 01/17/24 13:29 Blood Culture - Preliminary Blood - Venous No growth after 48 hours. Discharge Plan Discharge Anticipated Discharge Date/Time: 01/21/24 11:42 Patient Disposition: Xfer SNF Discharge Diagnosis: Hypoglycemia Mild CHF Rectal pain due to proctalgia rfugax Referrals: Jewel Rebolledo MD [Primary Care Provider] - 1 Week Discharge Medications: New dicyclomine 10 mg Capsule 10 mg PO QIDACHS PRN (Reason: Pain, Mild (Pain Scale 1-3)) Qty: 1 0RF docusate sodium 100 mg Capsule 100 mg PO BID Qty: 10 0RF polyethylene glycol 3350 17 gram Powder In Packet 17 g PO DAILY Qty: 14 0RF Continued isosorbide mononitrate 30 mg tablet extended release 24 hr 30 mg PO DAILY Qty: 30 6RF metoprolol tartrate 50 mg tablet 50 mg PO BID 90 Days Qty: 180 2RF torsemide 20 mg tablet 20 mg PO DAILY Qty: 30 5RF multivitamin Tablet 1 tab PO DAILY insulin aspart U-100 [Novolog U-100 Insulin aspart] 100 unit/mL Solution 1 sliding scale dose SUBCUT USEASDIRECTD [place]-3 Fish Oil 300-1,000 mg Capsule 1 cap PO DAILY magnesium 250 mg Tablet 250 mg PO DAILY cholecalciferol (vitamin D3) [Vitamin D3] 125 mcg (5,000 unit) Tablet 125 mcg PO DAILY zinc 220 mg PO DAILY oxycodone 15 mg tablet 15 mg PO Q4H PRN (Reason: Pain) clotrimazole-betamethasone 1-0.05 % cream 1 appl TOPICAL BID PRN (Reason: Itching) cranberry 400 mg Capsule 400 mg PO DAILY Rx Instructions: administer with a meal pregabalin 150 mg capsule 150 mg PO QID vitamin B complex Tablet 1 tab PO DAILY budesonide-formoterol [Symbicort] 80-4.5 mcg/actuation HFA aerosol inhaler 2 puff inhalation BID ammonium lactate 12 % cream 1 appl topical BID atorvastatin 40 mg tablet 40 mg PO BEDTIME losartan 25 mg tablet 25 mg PO DAILY Eliquis 5 mg tablet 5 mg PO BID Qty: 60 0RF turmeric 400 mg capsule 400 mg PO DAILY methenamine hippurate 1 gram tablet 1 g PO DAILY 90 Days Qty: 90 1RF ascorbic acid (vitamin C) 1,000 mg tablet 1 g PO DAILY 90 Days Qty: 90 1RF Changed insulin degludec [Tresiba FlexTouch U-100] 100 unit/mL (3 mL) insulin pen 20 unit subcut DAILY Qty: 15 0RF Discontinued doxycycline hyclate 100 mg tablet 100 mg PO BID Qty: 20 0RF cephalexin 500 mg capsule 500 mg PO QID 10 Days Qty: 40 0RF No Action (DME) diaper,brief,adult,disposable Misc See Rx Instructions .ROUTE .MEDSUPPLY Qty: 120 4RF Rx Instructions: As directed - 4 per day Discharge Orders: Discharge Order (Routine); Ordered 01/21/24 Ordered By: Vita Boss Activity on Discharge: As tolerated Stand Alone Forms: Patient Portal Discharge page Print Language: Italian Care Plan Goals: See below Health Concerns: Hypoglycemia Rectal 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 Apply foam dressing, peel back for assessment and change every 3 days. Right Lateral Heel - Cleanse with Ns moist gauze, pat dry. Lightly pack wound bed with cut to size durafiber AG. Cover with foam dressing. Change every other day. Right Lateral Ankle - Cleanse with Ns moist gauze, cover wound bed with xeroform. Cover with foam dressing change every other day. Skin Tears - Cleanse with normal saline, pat dry. ?Apply double layer Xeroform secure with Abd pads, gauze wrap and tape. ?Do not apply tape to patients skin.? Avoid Adhesive application to skin - when necessary, apply skin prep prior.? Plan of Treatment: Hypoglycemia-Dose of long-acting insulin reduced from 70 units at baseline to 20 units. Monitor blood sugar closely and adjust as needed Proctalgia fugax - GI recommends scheduled MiraLax, Colace and p.r.n. Tadeo Assessment: See discharge summary
[2024-01-21 12:08] LABS: Glucose, Whole Blood 378 mg/dL (60-115)
--- NOTE | 2024-01-21 12:14 | P.CDIM_ITS ---
PROVIDER RESPONSE TEXT: To clarify, the appropriate diagnosis supported by the clinical indicators: Pressure injury Stage 2 right lateral ankle QUERY TEXT: PHYSICIAN'S DOCUMENTATION REQUEST Date of Query: 01/21/2024 11:40 AM EDT Patient Name: Jewel Canales Admit Date: 01/17/2024 Dear Vita Boss, A review of the medical record indicates additional documentation may be needed. Please review below and update the documentation accordingly. Clinical Indicators: Wound care notes 01/18 - Pressure injury Stage 2 right lateral ankle, present on arrival Xeroform and foam dressing. Based on the above, could you please provide further information regarding the ulcer/wound/injury: Pressure injury Stage 2 right lateral ankle Other (explain) Clinically unable to determine (explain) Thank you, Radha Kurtz, CCS, CDIS Use of terms such as suspected, likely, concern for, or probable (associated with a specific diagnosi s that is being evaluated, monitored, or treated as if it exists) are acceptable and can be coded in the inpatient se tting, when documented at the time of discharge. Please use your independent medical judgment in providing your response. THIS QUERY IS PART OF THE PERMANENT MEDICAL RECORD
--- NOTE | 2024-01-21 12:19 | MHC.CM.PN ---
Second IMM 01/21/24, pt has been medically cleared for DC, he will go today to [facility] for STR via BLS.
[2024-01-21] MEDS: oxyCODONE HCl Immed Release 5 MG TABLET 10 MG PO (12:38)
--- NOTE | 2024-01-21 12:41 | P.CDIM_ITS ---
PROVIDER RESPONSE TEXT: To clarify, the appropriate diagnosis supported by the clinical indicators: Deep tissue injury (DTI) left heel QUERY TEXT: PHYSICIAN'S DOCUMENTATION REQUEST Date of Query: 01/21/2024 11:42 AM EDT Patient Name: Jewel Canales Admit Date: 01/17/2024 Dear Vita Boss, A review of the medical record indicates additional documentation may be needed. Please review below and update the documentation accordingly. Clinical Indicators: Wound care notes 01/18 - Deep tissue injury left lateral heel Present on arrival Foam dressing to aid in pressure redistribution. Based on the above, could you please provide further information regarding the ulcer/wound/injury Deep tissue injury (DTI) left heel Other (explain) Clinically unable to determine (explain) Thank you, Radha Kurtz, CCS, CDIS Use of terms such as suspected, likely, concern for, or probable (associated with a specific diagnosi s that is being evaluated, monitored, or treated as if it exists) are acceptable and can be coded in the inpatient se tting, when documented at the time of discharge. Please use your independent medical judgment in providing your response. THIS QUERY IS PART OF THE PERMANENT MEDICAL RECORD
--- NOTE | 2024-01-21 14:12 | HO.WOUND ---
Wound Consult: Follow up 88yr old?Male admitted to [facility] [place] on 01/17/24 - See progress notes and H&P for detailed history.? Wound consult follow up for Bilateral Heel wounds.? Patient agreeable to assessment and photo documentation.? 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 Patient reports pain and discomfort at the buttock. Coccyx Etiology: ?Deep Tissue Injury?Present on Admission Wound Bed: maroon nonblanchable tissue - intact at this time Drainage / Odor: None Edges: ? well defined Avani wound: MASD with maceration noted - No Induration, Fluctuance or Warmth noted Pain: reports pain Goals of Treatment: ?Triad and foam dressing to aid in pressure redistribution Intergluteal Etiology: ?MASD (Moisture Associated Skin Damage) with friction Wound Bed: mirrored wound beds within gluteal fold - red clean wound bed noted Drainage / Odor: None noted at time of my consultation Edges: ? irregular Avani wound: Macerated tissue with evidence of friction - No Induration, Fluctuance or Warmth noted Pain: reports pain Goals of Treatment: ?Triad and foam dressing to aid in pressure redistribution Left Lateral Heel Unchanged at todays assessment - no new topical recommendations needed. Etiology: ?Deep Tissue Injury?Present on Admission Wound Bed: appears to be resolving DTI may have been a blister Drainage / Odor: None Edges: ? well defined Avani wound pink and intact No Induration, Fluctuance or Warmth noted Pain: reports pain Goals of Treatment: ? foam dressing to aid in pressure redistribution Right Lateral Heel Unchanged at todays assessment - no new topical recommendations needed. Etiology: ??Diabetic wound Present on Admission Wound Bed: red moist tissue Drainage / Odor: scant serosang Edges: ? irregular Avani wound: ? callused tissue - No Induration, Fluctuance or Warmth noted Pain: denies at this time Goals of Treatment: Right lateral Ankle Unchanged at todays assessment - no new topical recommendations needed. Etiology: ?Stage 2 Pressure Injury ?Present on Admission Wound Bed: resolving blister over bony prominence Drainage / Odor: None Edges: ? well defined Avani wound: Intact ? No Induration, Fluctuance or Warmth noted Pain: tenderness reported Goals of Treatment: Xeroform and foam dressing Recommendations: 1. Turn and Reposition every 2 hours and as needed for patient comfort.? Use pillows or wedges to support off loading positions. 2. Off Load all bony prominences with use of pillows and heel boots if needed.? Apply Preventative foams where needed. ? 3. Monitor for incontinence and moisture control, use barrier creams when needed for prevention and treatment. 4. Provide adequate and supplemental nutrition.? 5. Order or Continue low air loss mattress. 6. When applicable maintain blood glucose levels per Providers order. 7. Left Heel - Elevate heel off of bed surface with pillows. Apply foam dressing, peel back for assessment and change every 3 days. 8. Right Lateral Heel - Cleanse with Ns moist gauze, pat dry. Lightly pack wound bed with cut to size durafiber AG. Cover with foam dressing. Change every other day. 9. Right Lateral Ankle - Cleanse with Ns moist gauze, cover wound bed with xeroform. Cover with foam dressing change every other day. 10. Skin Tears - Cleanse with normal saline, pat dry. ?Apply double layer Xeroform secure with Abd pads, gauze wrap and tape. ?Do not apply tape to patients skin.? Avoid Adhesive application to skin - when necessary, apply skin prep prior.? 11. Coccyx and Intergluteal / Buttock - Off Load Pressure - Waffle cushion when up to chair. Limit sit time to 1hr increments. Cleanse with PH balance spray or wipes, pat dry. ?Apply thin layer of Triad to wound bed. Do not remove all of paste between applications as this may cause further skin damage.? Cover with foam dressing to aid in off loading and protection from friction. Re-consult wound care Nurse for wound deterioration or wound changes.
== END 2024-01-21 16:43 | disposition skilled nursing facility (03) | DRG 637 ==
LOC: HO.ED 15:48 → HO.EDOVER 16:15 → HO.IMC 23:24
PROVIDERS: Admitting Provider Nurse Practitioner Acute Care; Emergency Provider Student in an Organized Health Care Education/Training Program; PCP Internal Medicine; Visit Provider Physician Assistant Medical
DX: E11.641 Type 2 diabetes mellitus with hypoglycemia with coma (principal); I50.33 Acute on chronic diastolic (congestive) heart failure; I48.0 Paroxysmal atrial fibrillation; I11.0 Hypertensive heart disease with heart failure; K59.4 Anal spasm; L89.626 Pressure-induced deep tissue damage of left heel; L89.512 Pressure ulcer of right ankle, stage 2; K59.00 Constipation, unspecified; J44.9 Chronic obstructive pulmonary disease, unspecified; I25.10 Atherosclerotic heart disease of native coronary artery without angina pectoris; Z95.0 Presence of cardiac pacemaker; Z87.891 Personal history of nicotine dependence; Z79.01 Long term (current) use of anticoagulants; Z79.4 Long term (current) use of insulin; Z79.899 Other long term (current) drug therapy
CPT/HCPCS: 36415; 71045; 73060; 80048; 80053; 81001; 82803; 82947; 83605; 83735; 83880; 84484; 85025; 85027; 85610; 87040; 87086; 93005; 94640; 97162; 99285; C1758; J1940; J2543

== ENCOUNTER → 2024-01-17 16:06 | Outpatient (BNV) | payer MEDICARE, SELFPAY | PROVIDERS: Admitting Provider Nurse Practitioner Acute Care; Emergency Provider Student in an Organized Health Care Education/Training Program; PCP Internal Medicine; Visit Provider Internal Medicine Cardiovascular Disease | DX: I50.9 Heart failure, unspecified (principal); I49.3 Ventricular premature depolarization; I49.1 Atrial premature depolarization | CPT/HCPCS: 93010; 99222; 99233 ==

== ENCOUNTER → 2024-01-17 16:06 | Outpatient (BNV) | payer MEDICARE, SELFPAY | PROVIDERS: Admitting Provider Nurse Practitioner Acute Care; Emergency Provider Student in an Organized Health Care Education/Training Program; PCP Internal Medicine; Visit Provider Nurse Practitioner Acute Care | DX: I50.9 Heart failure, unspecified (principal) | CPT/HCPCS: 99223; 99232; 99239 ==

== ENCOUNTER → 2024-02-18 23:59 | Outpatient (BNV) | payer MEDICARE, SELFPAY ==
--- NOTE | 2024-02-22 08:59 | A.OFFVIS_ITS ---
Intake Visit Reasons: Remote device check- [facility] Allergies No Known Allergies Allergy (Mild, Verified 01/17/24 13:17) N/A [facility] Medical History Urinary tract infection due to Pseudomonas aeruginosa Recurrent UTI History of prostate cancer Acute retention of urine Persistent atrial fibrillation COVID-19 vaccine series completed History of cardioversion Hx of Lyme disease Tubular adenoma of colon History of ST elevation myocardial infarction (STEMI) (HFpEF) heart failure with preserved ejection fraction Cardiac pacemaker in situ (~12/2020) Hepatorenal syndrome Symptomatic bradycardia Ventricular bigeminy Thrombocytopenia PVC (premature ventricular contraction) CHF exacerbation Bifascicular block Pancytopenia Prostate CA Myocardial infarct, old CAD (coronary artery disease) HLD (hyperlipidemia) Diabetes HTN (hypertension) Surgical History History of colonoscopy History of cervical spinal surgery History of radical prostatectomy History of left inguinal hernia repair History of total right knee replacement (TKR) History of lumbar discectomy History of cardiac pacemaker (~12/2020) Social History Household Members: Spouse Household Members Other:: 1 Housing: House Are you a primary hemodialysis patient care specialist to a significant other at home: No Do you presently have visiting nurse or other home services: Yes Alcohol intake: current Alcohol intake frequency: does not drink Alcohol type: wine Comment: pt refused bed/chair alarm Patient Tobacco Use Status: Former Tobacco user Tobacco use type: Cigarette Years Smoked: 10 Second Hand Smoke Exposure: No Advance Directives Date on File: 01/04/23 service: No Current occupational status: retired Office Procedures Cardiac Device Check Cardiac Device Check Details: Remote pacemaker report generated 02/19/2024. Pacemaker function is adequate. Increasing burden of atrial fibrillation noted. Will follow with the patient [id number] Cardiac Device Interrogation, pacemaker Procedure code (CPT) selection complete Assessment & Plan Assessment & Plan (1) Cardiac pacemaker in situ: Onset Date: ~12/2020 Comment: ([facility] DCPP 01/03/2021) Code(s): Z95.0 - Presence of cardiac pacemaker Category: Medical Plan: See above Coding Level of Care Code Procedure Only Diagnoses Cardiac pacemaker in situ Z95.0 CPT Codes Cardiac Device Check - Cardiac Device 12: [id number] Cardiac Device Interrogation, pacemaker ([id number])
== END ==
PROVIDERS: PCP Internal Medicine; Visit Provider Internal Medicine Cardiovascular Disease
DX: I48.91 Unspecified atrial fibrillation (principal); Z95.0 Presence of cardiac pacemaker
CPT/HCPCS: 93294

== ENCOUNTER 2024-04-12 12:08 | Outpatient (REF) | payer MEDICARE, SELFPAY ==
--- NOTE | ~2024-04-12 | XR_ITS ---
EXAMINATION: XR HIP, RIGHT CLINICAL INFORMATION: Right hip pain. COMPARISON: CT dated 01/31/2023 TECHNIQUE: AP and frog-leg lateral views of the right hip. 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 No fracture or malalignment. No evidence of avascular necrosis. Surgical clips in the central pelvis. Atherosclerotic calcifications in the femoral and iliac arteries. 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 No acute osseous findings. Electronically signed by: Cornelio Tay MD 05/04/2024 09:23 AM EDT
--- NOTE | ~2024-04-12 | XR_ITS ---
EXAMINATION: XR SACROILIAC JOINTS CLINICAL INFORMATION: Severe joint pain COMPARISON: CT scan of the abdomen and pelvis 2022 TECHNIQUE: 3 views of the sacroiliac joints FINDINGS: Sacroiliac joints normal. Arterial calcification present. Surgical clips noted. Degenerative disc changes present at the partially visualized lumbar sacral junction XR/XR sacroiliac joint min 3V IMPRESSION: 1. Normal sacroiliac joints. 2. Calcific atherosclerotic disease. Electronically signed by: Jewel Rey MD 05/04/2024 11:32 AM EDT
== END 2024-04-12 12:09 | disposition home or self-care (01) ==
LOC: HO.HMGCX 12:08
PROVIDERS: PCP Internal Medicine; Visit Provider Internal Medicine
DX: M25.551 Pain in right hip (principal); M53.3 Sacrococcygeal disorders, not elsewhere classified
CPT/HCPCS: 72202; 73502

== ENCOUNTER 2024-04-18 14:47 | Outpatient (AMB) | payer MEDICARE, SELFPAY ==
--- NOTE | 2024-04-18 15:03 | MHC.OFFVIS ---
Vital Signs 04/18/24 15:04 Height 5 ft 7 in Weight 170 lb BMI 26.6 BP 110/64 Blood Pressure Location Lt brachial Position Sitting Pulse 70 Intake Visit Reasons: follow-up with [facility] check Intake Note: Follow-up with [facility] c/o swelling and pain Thoracic Medicine Physician Required: No Allergies No Known Allergies Allergy (Mild, Verified 01/17/24 13:17) N/A Medication List - Last Reconciled 04/18/24 by Titi Deluca MD ammonium lactate 12% 1 appl topical BID apixaban (Eliquis) 5 mg PO BID ascorbic acid (vitamin C) 1 g PO DAILY 90 days atorvastatin 40 mg PO BEDTIME budesonide-formoterol 80-4.5 mcg/actuation (Symbicort) 2 puffs inhalation BID cholecalciferol (vitamin D3) (Vitamin D3) 125 mcg PO DAILY clotrimazole-betamethasone 1-0.05 % 1 appl topical BID PRN cranberry 400 mg PO DAILY diaper,brief,adult,disposable As directed - 4 per day dicyclomine 10 mg PO QIDACHS PRN docusate sodium 100 mg PO BID insulin aspart U-100 (Novolog U-100 Insulin aspart) 1 sliding scale dose subcut USEASDIRECTD insulin degludec (Tresiba FlexTouch U-100 insulin) 20 units (0.2 mL) subcut DAILY isosorbide mononitrate ER 30 mg PO DAILY losartan 25 mg PO DAILY magnesium 250 mg PO DAILY methenamine hippurate 1 g PO DAILY 90 days metoprolol tartrate 50 mg PO BID 90 days multivitamin 1 tab PO DAILY flgar-[id number]-epa-fish oil 300-1,000 mg ([place]-3 Fish Oil) 1 cap PO DAILY oxycodone 15 mg PO Q4H PRN polyethylene glycol 3350 17 grams PO DAILY pregabalin 150 mg PO QID torsemide 20 mg PO DAILY turmeric 400 mg PO DAILY vitamin B complex 1 tab PO DAILY [zinc 220 mg PO DAILY] HPI Comments Details: Jewel comes for follow-up. Was admitted in December with decompensated congestive heart failure. He comes for follow-up since then. He is pretty disappointed as there has been progressively declining health with reduced functional capacity. He comes to the office in the wheelchair. He said he gets around the house walking with a walker. He is not able to go out much. He was admitted with a fall. He also has a lot of bladder issues. He takes his medications currently. No bleeding issues or neurologic events. No clear orthopnea, PND. Has more zak ankle edema. Denies any palpitations. No lightheadedness, syncope. [facility] Medical History (Updated 04/18/24 @ 16:06 by Titi Deluca MD) Persistent atrial fibrillation Acute on chronic diastolic (congestive) heart failure Urinary tract infection due to Pseudomonas aeruginosa Recurrent UTI History of prostate cancer Acute retention of urine COVID-19 vaccine series completed History of cardioversion Hx of Lyme disease Tubular adenoma of colon History of ST elevation myocardial infarction (STEMI) (HFpEF) heart failure with preserved ejection fraction Cardiac pacemaker in situ (~12/2020) Hepatorenal syndrome Symptomatic bradycardia Ventricular bigeminy Thrombocytopenia PVC (premature ventricular contraction) CHF exacerbation Bifascicular block Pancytopenia Prostate CA Myocardial infarct, old CAD (coronary artery disease) HLD (hyperlipidemia) Diabetes HTN (hypertension) Surgical History History of colonoscopy History of cervical spinal surgery History of radical prostatectomy History of left inguinal hernia repair History of total right knee replacement (TKR) History of lumbar discectomy History of cardiac pacemaker (~12/2020) Social History Household Members: Spouse Household Members Other:: 1 Housing: House Are you a primary child care counselor to a significant other at home: No Do you presently have visiting nurse or other home services: Yes Alcohol intake: current Alcohol intake frequency: does not drink Alcohol type: wine Comment: pt refused bed/chair alarm Patient Tobacco Use Status: Former Tobacco user Tobacco use type: Cigarette Years Smoked: 10 Second Hand Smoke Exposure: No Advance Directives Date on File: 01/04/23 service: No Current occupational status: retired Review of Systems Const Denies chills, Denies fatigue, Denies fever(s), Denies frequent falls, Denies weakness, Denies weight gain and Denies weight loss ENT Denies dizziness Card Denies chest pain, Denies leg edema, Denies lightheadedness, Denies palpitations, Denies dyspnea, Denies dyspnea on exertion, Denies orthopnea and Denies other (loss of consciousness) Resp Denies cough, Denies dyspnea and Denies dyspnea on exertion GI Denies hematochezia and Denies change in stool character Musc Denies abnormal gait, Denies muscle weakness, Denies numbness, Denies radiating pain into limb and Denies tingling Neuro Denies abnormal gait, Denies dizziness, Denies frequent falls, Denies numbness, Denies tingling and Denies weakness Endo Denies fatigue and Denies palpitations Physical Exam Vital Signs: Last Vital Signs Pulse 70 04/18/24 15:04 BP 110/64 04/18/24 15:04 BMI result Body Mass Index 26.6 Const General: cooperative, comfortable, no acute distress, alert and awake Nutritional Appearance: overweight and other (Frail elderly man) Orientation/consciousness: patient oriented x3 Limitations: wheelchair Neck Neck: Yes trachea midline, Yes supple and Yes no JVD Resp Effort & Inspection: normal respiratory effort Auscultation: clear to auscultation bilaterally Cardio Jugular venous distension: no JVD Rate: regular rate Rhythm: regular rhythm Heart sounds: S1 normal heart sound present, S2 normal heart sound present, no click, no gallops and no murmurs Skin General skin exam: no rashes or lesions noted and ecchymosis Neuro General: patient oriented x3 and no focal motor deficits Extrem General: No clubbing, No cyanosis and Yes edema Psych Appearance: grossly normal Office Procedures Cardiac Device Check Cardiac Device Check Details: Dual-chamber [facility] pacemaker. Noted to be in atrial fibrillation chronically now for some months. Reprogrammed from DDDR to DDIR. Ventricular pacing thresholds adequate and in auto capture mode. Ventricular sensing is adequate. Pacing lead impedance is stable. Battery life is adequate [id number] Cardiac Device Check, pacemaker dual lead Procedure code (CPT) selection complete Assessment & Plan Assessment & Plan (1) (HFpEF) heart failure with preserved ejection fraction: Code(s): I50.30 - Unspecified diastolic (congestive) heart failure Category: Medical Plan: Heart failure preserved ejection fraction. Clinically today appears to be euvolemic and well compensated. Overall prognosis guarded and risk for recurrent hospitalization due to CHF is high given his persistent atrial fibrillation chronically worsening overall physical functional status which appears to be more related to deconditioning from multiple hospitalization advancing age. Continue current diuretic therapy. Daily weight monitoring avoidance of salt loading was discussed. Management of heart failure was discussed again. (2) Cardiac pacemaker in situ: Onset Date: ~12/2020 Comment: ([facility] DCPP 01/03/2021) Code(s): Z95.0 - Presence of cardiac pacemaker Category: Medical Plan: Cardiac pacemaker in-situ, working well. Reprogrammed for adequate functioning. (3) Persistent atrial fibrillation: Comment: Status post repeat cardioversion, October 2022 on therapy with Multaq Code(s): I48.19 - Other persistent atrial fibrillation Category: Medical Plan: Persistent and/possibly chronic atrial fibrillation. Has failed rhythm control approach at this point time. There is no worsening heart failure syndrome overall in his overall reduced functional capacity is related to his general health status and gradually debilitating held stairs related to his multiple hospitalization physical deconditioning. Continue participate in the same. At this point time will continue rate control approach. Continue current full oral anticoagulation with Eliquis. Quarterly renal function test should be pursued. Will follow up in the clinic in 6 months time, sooner p.r.n.. Thank you for allowing me to partake in his care Coding Level of Care Code Est Pt Level 4 (94948) Diagnoses (HFpEF) heart failure with preserved ejection fraction I50.30 Cardiac pacemaker in situ Z95.0 Persistent atrial fibrillation I48.19 CPT Codes Cardiac Device Check - Cardiac Device 2: [id number] Cardiac Device Check, pacemaker dual lead ([id number])
[2024-04-18 15:04] VITALS: BP 110/64; PULSE 70; BMI 26.6
== END 2024-04-18 15:37 | disposition home or self-care (01) ==
LOC: HO.HCS 14:47
PROVIDERS: PCP Internal Medicine; Visit Provider Internal Medicine Cardiovascular Disease
DX: I50.30 Unspecified diastolic (congestive) heart failure (principal); Z95.0 Presence of cardiac pacemaker; I48.19 Other persistent atrial fibrillation
CPT/HCPCS: 93280; 99214

== ENCOUNTER → 2024-04-18 14:47 | Outpatient (BNVA) | payer MEDICARE, SELFPAY | PROVIDERS: PCP Internal Medicine; Visit Provider Internal Medicine Cardiovascular Disease | DX: I48.19 Other persistent atrial fibrillation (principal); I11.0 Hypertensive heart disease with heart failure; I50.33 Acute on chronic diastolic (congestive) heart failure; I25.10 Atherosclerotic heart disease of native coronary artery without angina pectoris; Z45.010 Encounter for checking and testing of cardiac pacemaker pulse generator [battery] | CPT/HCPCS: 93280; 99212 ==

== ENCOUNTER → 2024-05-09 23:59 | Outpatient (BNV) | payer MEDICARE, SELFPAY ==
--- NOTE | 2024-05-12 15:28 | MHC.OFFVIS ---
Intake Visit Reasons: Remote device check- [facility] Allergies No Known Allergies Allergy (Mild, Verified 01/17/24 13:17) N/A [facility] Medical History (Updated 04/18/24 @ 16:06 by Titi Deluca MD) Persistent atrial fibrillation Acute on chronic diastolic (congestive) heart failure Urinary tract infection due to Pseudomonas aeruginosa Recurrent UTI History of prostate cancer Acute retention of urine COVID-19 vaccine series completed History of cardioversion Hx of Lyme disease Tubular adenoma of colon History of ST elevation myocardial infarction (STEMI) (HFpEF) heart failure with preserved ejection fraction Cardiac pacemaker in situ (~12/2020) Hepatorenal syndrome Symptomatic bradycardia Ventricular bigeminy Thrombocytopenia PVC (premature ventricular contraction) CHF exacerbation Bifascicular block Pancytopenia Prostate CA Myocardial infarct, old CAD (coronary artery disease) HLD (hyperlipidemia) Diabetes HTN (hypertension) Surgical History History of colonoscopy History of cervical spinal surgery History of radical prostatectomy History of left inguinal hernia repair History of total right knee replacement (TKR) History of lumbar discectomy History of cardiac pacemaker (~12/2020) Social History Household Members: Spouse Household Members Other:: 1 Housing: House Are you a primary neonatal intensive care nurse to a significant other at home: No Do you presently have visiting nurse or other home services: Yes Alcohol intake: current Alcohol intake frequency: does not drink Alcohol type: wine Comment: pt refused bed/chair alarm Patient Tobacco Use Status: Former Tobacco user Tobacco use type: Cigarette Years Smoked: 10 Second Hand Smoke Exposure: No Advance Directives Date on File: 01/04/23 service: No Current occupational status: retired Office Procedures Cardiac Device Check Cardiac Device Check Details: Remote pacemaker report generated 05/09/2024. Pacemaker function is adequate. Persistent [place] [id number] Cardiac Device Interrogation, pacemaker Procedure code (CPT) selection complete Assessment & Plan Assessment & Plan (1) Cardiac pacemaker in situ: Onset Date: ~12/2020 Comment: ([facility] DCPP 01/03/2021) Code(s): Z95.0 - Presence of cardiac pacemaker Category: Medical Plan: See above Coding Level of Care Code Procedure Only Diagnoses Cardiac pacemaker in situ Z95.0 CPT Codes Cardiac Device Check - Cardiac Device 12: [id number] Cardiac Device Interrogation, pacemaker ([id number])
== END ==
PROVIDERS: PCP Internal Medicine; Visit Provider Internal Medicine Cardiovascular Disease
DX: I48.19 Other persistent atrial fibrillation (principal); Z95.0 Presence of cardiac pacemaker
CPT/HCPCS: 93294

== ENCOUNTER 2024-10-11 14:47 | Outpatient (AMB) | payer MEDICARE, SELFPAY ==
[2024-10-11 14:52] VITALS: BP 130/76; PULSE 70
--- NOTE | 2024-10-11 14:52 | A.OFFVIS_ITS ---
Vital Signs 10/11/24 14:52 Height 5 ft 7 in BP 130/76 Blood Pressure Location Lt brachial Position Sitting Pulse 70 Intake Visit Reasons: 6 mth fu w/ [facility] Intake Note: 6 month follow-up with [facility] check feeling ok Web Marketing Specialist Required: No Allergies No Known Allergies Allergy (Mild, Verified 01/17/24 13:17) N/A Medication List - Last Reconciled 10/11/24 by Titi Deluca MD ammonium lactate 12% 1 appl topical BID apixaban (Eliquis) 5 mg PO BID ascorbic acid (vitamin C) 1 g PO DAILY 90 days atorvastatin 40 mg PO BEDTIME budesonide-formoterol 80-4.5 mcg/actuation (Symbicort) 2 puffs inhalation BID cholecalciferol (vitamin D3) (Vitamin D3) 125 mcg PO DAILY clotrimazole-betamethasone 1-0.05 % 1 appl topical BID PRN cranberry fruit 400 mg PO DAILY diaper,brief,adult,disposable As directed - 4 per day dicyclomine 10 mg PO QIDACHS PRN docusate sodium 100 mg PO BID insulin aspart U-100 (Novolog U-100 Insulin aspart) 1 sliding scale dose subcut USEASDIRECTD insulin degludec (Tresiba FlexTouch U-100 insulin) 20 units (0.2 mL) subcut DAILY isosorbide mononitrate ER 30 mg PO DAILY losartan 25 mg PO DAILY magnesium 250 mg PO DAILY methenamine hippurate 1 g PO DAILY 90 days multivitamin 1 tab PO DAILY [id number]-fish oil 300-1,000 mg ([place]-3 Fish Oil) 1 cap PO DAILY oxycodone 15 mg PO Q4H PRN polyethylene glycol 3350 17 grams PO DAILY pregabalin 150 mg PO QID torsemide 20 mg PO DAILY turmeric 400 mg PO DAILY vitamin B complex 1 tab PO DAILY [zinc 220 mg PO DAILY] HPI Comments Details: Jewel comes for follow-up. No new cardiac complaints. Complains of pain in the right toe with the infected toe with pain mostly in supine position. Does not get pain in the dependent position. Underwent intervention and outpatient vascular facility, do not have the results. Not sure if he had interventions performed. He denies any worsening shortness of breath, orthopnea, PND. No worsening leg edema. Takes all her as diuretics. Denies any lightheadedness, syncope. Generally getting frailer and not able to move around as easily. Uses a walker. However he was diffuse joint pains related to arthritis. [facility] Medical History Persistent atrial fibrillation Acute on chronic diastolic (congestive) heart failure Urinary tract infection due to Pseudomonas aeruginosa Recurrent UTI History of prostate cancer Acute retention of urine COVID-19 vaccine series completed History of cardioversion Hx of Lyme disease Tubular adenoma of colon History of ST elevation myocardial infarction (STEMI) (HFpEF) heart failure with preserved ejection fraction Cardiac pacemaker in situ (~12/2020) Hepatorenal syndrome Symptomatic bradycardia Ventricular bigeminy Thrombocytopenia PVC (premature ventricular contraction) CHF exacerbation Bifascicular block Pancytopenia Prostate CA Myocardial infarct, old CAD (coronary artery disease) HLD (hyperlipidemia) Diabetes HTN (hypertension) Surgical History History of colonoscopy History of cervical spinal surgery History of radical prostatectomy History of left inguinal hernia repair History of total right knee replacement (TKR) History of lumbar discectomy History of cardiac pacemaker (~12/2020) Social History Household Members: Spouse Household Members Other:: 1 Housing: House Are you a primary veterinarian laboratory animal care to a significant other at home: No Do you presently have visiting nurse or other home services: Yes Alcohol intake: current Alcohol intake frequency: does not drink Alcohol type: wine Comment: pt refused bed/chair alarm Patient Tobacco Use Status: Former Tobacco user Tobacco use type: Cigarette Years Smoked: 10 Second Hand Smoke Exposure: No Advance Directives Date on File: 01/04/23 service: No Current occupational status: retired Review of Systems Const Denies chills, Denies fatigue, Denies fever(s), Denies frequent falls, Denies weakness, Denies weight gain and Denies weight loss ENT Denies dizziness Card Denies chest pain, Denies leg edema, Denies lightheadedness, Denies palpitations, Denies dyspnea, Denies dyspnea on exertion, Denies orthopnea and Denies other (loss of consciousness) Resp Denies cough, Denies dyspnea and Denies dyspnea on exertion GI Denies hematochezia and Denies change in stool character Musc Denies abnormal gait, Denies muscle weakness, Denies numbness, Denies radiating pain into limb and Denies tingling Neuro Denies abnormal gait, Denies dizziness, Denies frequent falls, Denies numbness, Denies tingling and Denies weakness Endo Denies fatigue and Denies palpitations Physical Exam Vital Signs: Last Vital Signs Pulse 70 10/11/24 14:52 BP 130/76 10/11/24 14:52 Const General: cooperative, comfortable, no acute distress, alert and awake Nutritional Appearance: overweight and other (Frail elderly man) Orientation/consciousness: patient oriented x3 Limitations: wheelchair Neck Neck: Yes trachea midline, Yes supple and Yes no JVD Resp Effort & Inspection: normal respiratory effort Auscultation: clear to auscultation bilaterally Cardio Jugular venous distension: no JVD Rate: regular rate Rhythm: regular rhythm Heart sounds: S1 normal heart sound present, S2 normal heart sound present, no click, no gallops and no murmurs Skin General skin exam: no rashes or lesions noted and ecchymosis Neuro General: patient oriented x3 and no focal motor deficits Extrem General: No clubbing, No cyanosis and Yes edema Psych Appearance: grossly normal Office Procedures Cardiac Device Check Cardiac Device Check Details: Dual-chamber [facility] pacemaker in place. Programmed in DDDR at 70 beats per minute. Ventricular pacing 94% of the time. Ventricular pacing thresholds adequate and in auto capture mode. Ventricular sensing is adequate. Pacing lead impedance is stable. Battery life is at 4 and half years [id number] Cardiac Device Check, pacemaker dual lead Procedure code (CPT) selection complete Assessment & Plan Assessment & Plan (1) Persistent atrial fibrillation: Comment: Status post repeat cardioversion, October 2022 on therapy with Multaq Code(s): I48.19 - Other persistent atrial fibrillation Category: Medical Plan: Persistent atrial fibrillation has failed rhythm control approach. Continue rate control approach. Currently rate is adequately controlled, patient predominantly pacer dependent in the ventricle. Continue full oral anticoagulation, currently on Eliquis 5 mg b.i.d.. (2) (HFpEF) heart failure with preserved ejection fraction: Code(s): I50.30 - Unspecified diastolic (congestive) heart failure Category: Medical Plan: Heart failure preserved ejection fraction related diastolic dysfunction and persistent atrial fibrillation. Clinically euvolemic and well compensated. Continue current diuretic regimen with torsemide. He is pretty unhappy with requiring diuretic therapy although importance of diuretic therapy was discussed. Additional diuretics as need be. Daily weight monitoring avoidance salt loading was discussed. Continue aggressive blood pressure control which is well optimized. (3) Cardiac pacemaker in situ: Onset Date: ~12/2020 Comment: ([facility] 01/03/2021) Code(s): Z95.0 - Presence of cardiac pacemaker Category: Medical Plan: Cardiac pacemaker in-situ, working well. Reprogrammed for adequate function. Will follow remotely every 3 months. Follow up in the clinic in 6 months time. Will follow up in the clinic in 6 months time, sooner p.r.n.. Thank you for allowing me to partake in his care Coding Level of Care Code Est Pt Level 4 (91480) Complex EM visit Add On G2211 Diagnoses Persistent atrial fibrillation I48.19 (HFpEF) heart failure with preserved ejection fraction I50.30 Cardiac pacemaker in situ Z95.0 CPT Codes Cardiac Device Check - Cardiac Device 2: [id number] Cardiac Device Check, pacemaker dual lead ([id number])
--- OUTSIDE RECORDS SUMMARY | 2024-10-11 15:49 | XMS_ITS | Encounter Summary ---
Author Organization [facility] Address [address] [place] [address] Care Team Providers Care Street Light Cleaner Name Role Phone Pcp, No Primary Care Provider Unavailabl e Encounter Details Date Type Department Care Team (Late st Contact Info) Description 01/13/2024 Scanned Document [facility] Urologic Surgery [address] [place] [address] Enoch Cardona MD [address] [id number] Social History Tobacco Use Types Packs/Day Years Used Date Smoking Tobacco: Former Cigarettes Alcohol Use Standard Drinks/Week Comments Yes 0 (1 standard drink = 0.6 oz pur e alcohol) Sex and Gender Information Value Date Recorded Sex Assigned at Not on file Gender Identity Male 08/19/2023 2:13 PM EST Sexual Orientation Not on file documented as of this encounter Plan of Treatment Not on file documented as of this encounter Visit Diagnoses Not on filedocumented in this encounter Care Teams Street Light Cleaner Relationship Specialty Start Date End Date Pcp, No PCP - General General Medicine 08/19/23 documented as of this encounter
--- OUTSIDE RECORDS SUMMARY | 2024-10-11 15:49 | XMS_ITS | Encounter Summary ---
Author Organization [facility] Address [address] [place] [address] Care Team Providers Care Service Worker Name Role Phone Pcp, No Primary Care Provider Unavailabl e Encounter Details Date Type Department Care Team (Late st Contact Info) Description 09/29/2022 Scanned Document [facility] Urologic Surgery [address] [place] [address] Sreekanth Lobato MD [address] [phone] Social History Tobacco Use Types Packs/Day Years Used Date Smoking Tobacco: Never Assessed Sex and Gender Information Value Date Recorded Sex Assigned at Not on file Gender Identity Male 08/19/2023 2:13 PM EST Sexual Orientation Not on file documented as of this encounter Plan of Treatment Not on file documented as of this encounter Visit Diagnoses Not on filedocumented in this encounter Care Teams Service Worker Relationship Specialty Start Date End Date Pcp, No PCP - General General Medicine 08/19/23 documented as of this encounter
--- OUTSIDE RECORDS SUMMARY | 2024-10-11 15:49 | XMS_ITS ---
Author Organization [facility] Address [address] [place] [address] Care Team Providers Care Dye Can Operator Name Role Phone Jewel Rebolledo MD Primary Care Provider UnavailMatiled Baker Unavailable [phone] Erin Steen Unavailable [phone] REASON FOR VISIT cx 02/11 Encounters Encounter Location Date Provider Diagnosis [facility] [address] [place] [address] 02/08/2024 Erineli Steen Plan Of Treatment No Information Progress Notes * Jewel NEAL PDOB: [birth year] (88 yo M)Acc No.[id number]:02/08/2024 Patient:?Jewel Neal :1935???Age:88 Y???Sex:Male Address:[address] [place] [address] [place] [address] * true * Date:? Generated for Bretti mine/Rambo/eTransmitting on:?10/11/2024 03:49 PM EST
--- OUTSIDE RECORDS SUMMARY | 2024-10-11 15:49 | XMS_ITS | Clinical Summary ---
Author Organization [facility] Address [address] [place] [address] Care Team Providers Care Configuration Management Consultant Name Role Phone Pcp, No Primary Care Provider Unavailabl e Allergies Active Allergy Reactions Criticality Noted Date Comments Ibuprofen Unknown/Patient and Family Unable to Define Medium 10/28/2023 Medications Medication Sig Dispensed Refills Start Date End Date Status metoPROLOL TARTRATE (LOPRESSOR) 50 MG tablet Take 1 tablet (50 mg total) by mouth 2 (two) times a day. 08/28/2023 Active losartan (COZAAR) 25 MG tablet 08/04/2023 Active isosorbide mononitrate (IMDUR) 30 MG 24 hr tablet 08/04/2023 Active furosemide (LASIX) 20 MG tablet TAKE 1 TABLET BY MOUTH DAILY FOR EDEMA 08/11/2023 Active Eliquis 5 MG tablet 07/06/2023 Activ e atorvastatin (LIPITOR) 40 MG tablet 08/17/2023 Active TURMERIC PO Take by mouth. Active B Complex Vitamins (VITAMIN B-COMPLEX PO) Take by mouth. Active Multiple Vitamins-Minerals (ZINC PO) Take by mouth. Active Christoval-3 Fatty Acids (FISH OIL PO) Take by mouth. Active CRANBERRY PO Take by mouth. Active MAGNESIUM PO Take by mouth. Active Cholecalciferol (VITAMIN D3 PO) Take by mouth. Activ e Insulin Degludec (TRESIBA FLEXTOUCH SC) Inject under the skin. Active insulin aspart (NovoLOG FlexPen) 100 UNIT/ML prefilled pen injection Inject under the skin 3 (three) times a day before meals. Active budesonide-formoterol (SYMBICORT) 80-4.5 MCG/ACT inhaler Inhale 2 puffs 2 (two) times a day. Active ipratropium-albuterol (COMBIVENT RESPIMAT) 20-100 mcg/puff inhaler Inhale 1 puff 4 (four) times a day. Active Social History Tobacco Use Types Packs/Day Years Used Date Smoking Tobacco: Former Cigarettes Tobacco Cessation:Counseling Given: Not Answered Alcohol Use Standard Drinks/Week Comments Yes 0 (1 standard drink = 0.6 oz pur e alcohol) Sex and Gender Information Value Date Recorded Sex Assigned at Not on file Gender Identity Male 08/19/2023 2:13 PM EST Sexual Orientation Not on file Last Filed Vital Signs Vital Sign Reading Time Taken Comments Blood Pressure - - Pulse - - Temperature - - Respiratory Rate - - Oxygen Saturation - - Inhaled Oxygen Concentration - - Weight 77.1 kg (170 lb) 10/28/2023 1:04 PM EST p er pt Height 171.5 cm (5' 7.5 ) 10/28/2023 1:04 PM EST per pt Body Mass Index 26.23 10/28/2023 1:04 PM EST Plan of Treatment Health Maintenance Due Date Last Done Comments DTaP/Tdap/Td Vaccines (1 - Tdap) 1954 Pneumococcal Vaccines 50+ (1 of 1 - PCV) 1987 Zoster (Shingles) Vaccine (1 of 2) 1987 RSV Vaccine 60 years and older and Patients (1 - 1-dose 75+ series) 2012 Influenza Vaccine 03/24/2024 05/20/2022, , 05/21/2020, Additional history exists COVID-19 Vaccine (2023- season) 2024 06/14/2021, 10/24/2020, 10/03/2020 Hepatitis B Vaccines Aged Out No long er eligible based on patient's age to complete this topic Care Teams Configuration Management Consultant Relationship Specialty Start Date End Date Pcp, No PCP - General General Medicine 08/19/23
--- OUTSIDE RECORDS SUMMARY | 2024-10-11 15:49 | XMS_ITS ---
Author Name [facility] Unknown History of Medication Use Medication Directions Dispensed Refills Start Date End Date Stat us budesonide-formo terol (SYMBICORT) 80-4.5 MCG/ACT inhaler Inhale 2 puffs 2 (two) times a day. active TURMERIC PO Take by mouth. activ e metoPROLOL TARTRATE (LOPRESSOR) 50 MG tablet Take 1 tablet (50 mg total) by mouth 2 (two) times a day. 08/28/2023 active sulfamethoxazole -trimethoprim (BACTRIM DS,SEPTRA DS) 800-160 MG tablet 1 tablet 1 tablet, Oral, Once, On Thu01/13/24 at 1500, For 1 dose, Administer with at least 8 ounces of water, All antimicrobials used at [facility] require an indication. Please complete the following documentation. Medical Prophylaxis 01/13/2024 01/13/2024 complete d ipratropium-albu terol (COMBIVENT RESPIMAT) 20-100 mcg/puff inhaler Inhale 1 puff 4 (four) times a day. active Problems Problem Status Onset Date Problem Type Date of Resolution Source Frequent urination active EncounterDiagnosisAct [facility] Prophylactic antibiotic active EncounterDiagnosisAct [facility] Stress incontinence of urine active EncounterDiagnosisAct [facility] S/P prostatectomy active EncounterDiagnosisAct [facility] Status post implantation of artificial urinary sphincter active EncounterDiagnosisAct [facility] S/P radiotherapy active EncounterDiagnosisAct [facility]
--- OUTSIDE RECORDS SUMMARY | 2024-10-11 15:49 | XMS_ITS | Encounter Summary ---
Author Organization [facility] Address [address] [place] [address] Care Team Providers Care Physical Education Professor Name Role Phone Jewel Rebolledo MD Primary Care Provider [phone] Encounter Details Date Type Department Care Team (Latest Contact Info) Description 06/28/2024 Lab Requisition [facility] - Main Lab [address] [facility] [place] [address] Lamonte Sagastume MD [address] [place] [id number] Type 2 diabetes mellitus without complications (CMS/HCC) Social History Tobacco Use Types Packs/Day Years Used Date Smoking Tobacco: Never Assessed Sex and Gender Information Value Date Recorded Sex Assigned at Not on file Legal Sex Male 2:37 AM EST Gender Identity Not on file Sexual Orientation Not on file documented as of this encounter Plan of Treatment Not on file documented as of this encounter Procedures Procedure Name Priority Date/Time Associated Diagnosis Comments COMPLETE BLOOD COUNT Routine 06/28/2024 6:01 AM EST Type 2 diabetes mellitus without complications (CMS/HCC) PHOSPHORUS Routine 06/28/2024 6:01 AM EST Type 2 diabetes mellitus without complications (CMS/HCC) MAGNESIUM Routine 06/28/2024 6:01 AM EST Type 2 diabetes mellitus without complications (CMS/HCC) COMPREHENSIVE METABOLIC PANEL Routine 06/28/2024 6:01 AM EST Type 2 diabetes mellitus without complications (CMS/HCC) documented in this encounter Results * Magnesium (06/28/2024 6:01 AM EST) Magnesium 2.3 1.9 - 2.6 mg/dL LAB CHEMISTRY METHOD 06/28/2024 2:41 PM EST [facility] Blood Venous blood specimen / Unknown Venipuncture / Unknown 06/28/2024 6:01 AM EST 06/28/2024 11:11 AM EST Lamonte Sagastume MD LAB BLOOD ORDERABLES Final Res ult [facility] [address] [place] [address], [place] [phone] * Phosphorus (06/28/2024 6:01 AM EST) Pathologist [facility] Phosphorus 2.9 2.5 - 4.5 mg/dL LAB CHEMISTRY METHOD 06/28/2024 2:41 PM EST [facility] Blood Venous blood specimen / Unknown Venipuncture / Unknown 06/28/2024 6:01 AM EST 06/28/2024 11:11 AM EST us Lamonte Sagastume MD LAB BLOOD ORDERABLES Final Res ult [facility] [address] [place] [address], [place] [phone] * (ABNORMAL) Complete blood count (06/28/2024 6:01 AM EST) WBC 5.4 4.8 - 10.8 K/Health system LAB HEMETOLOGY METHOD 06/28/2024 12:41 PM EST [facility] RBC 3.60(L) 4.50 - 5.50 M/Health system LAB HEMETOLOGY METHOD 06/28/2024 12:41 PM EST [facility] Hemoglobin 9.7(L) 13.5 - 17.5 g/dL LAB HEMETOLOGY METHOD 06/28/2024 12:41 PM [facility] Hematocrit 31.9(L) 42.0 - 54.0 % LAB HEMETOLOGY METHOD 06/28/2024 12:41 PM [facility] MCV 89.9 79.0 - 98.0 FL LAB HEMETOLOGY METHOD 06/28/2024 12:41 PM [facility] MCH 27.3 27.0 - 32.0 pcg LAB HEMETOLOGY METHOD 06/28/2024 12:41 PM [facility] MCHC 30.4(L) 32.0 - 37.0 g/dL LAB HEMETOLOGY METHOD 06/28/2024 12:41 PM [facility] RDW 18.2(H) 11.0 - 15.0 % LAB HEMETOLOGY METHOD 06/28/2024 12:41 PM [facility] Platelets 164 130 - 400 K/mcL LAB HEMETOLOGY METHOD 06/28/2024 12:41 PM [facility] MPV 10.8 7.0 - 11.0 FL LAB HEMETOLOGY METHOD 06/28/2024 12:41 PM [facility] NRBC 0.0 <1.0 % LAB HEMETOLOGY METHOD 06/28/2024 12:41 PM [facility] NRBC Absolute 0.00 <0.10 K/mcL LAB HEMETOLOGY METHOD 06/28/2024 12:41 PM [facility] Blood Venous blood specimen / Unknown Venipuncture / Unknown 06/28/2024 6:01 AM EST 06/28/2024 11:11 AM EST us Lamonte Sagastume MD LAB BLOOD ORDERABLES Final Res ult [facility] [address] [place] [address], [place] [phone] * (ABNORMAL) Comprehensive metabolic panel (06/28/2024 6:01 AM EST) Sodium 138 133 - 145 mmol/L LAB CHEMISTRY METHOD 06/28/2024 2:45 PM [facility] Potassium 4.1 3.5 - 5.5 mmol/L LAB CHEMISTRY METHOD 06/28/2024 2:45 PM [facility] Chloride 102 96 - 110 mmol/L LAB CHEMISTRY METHOD 06/28/2024 2:45 PM [facility] CO2 33(H) 21 - 32 mmol/L LAB CHEMISTRY METHOD 06/28/2024 2:45 PM [facility] Anion Gap 3 3 - 11 LAB CHEMISTRY METHOD 06/28/2024 2:45 PM [facility] Glucose 213(H) 70 - 100 mg/dL LAB CHEMISTRY METHOD 06/28/2024 2:45 PM [facility] BUN 47(H) 5 - 25 mg/dL LAB CHEMISTRY METHOD 06/28/2024 2:45 PM [facility] Creatinine 1.02 0.70 - 1.30 mg/dL LAB CHEMISTRY METHOD 06/28/2024 2:45 PM [facility] eGFR 72 >=60 mL/min/1. 73m2 LAB CHEMISTRY METHOD 06/28/2024 2:45 PM [facility] Comment:Calculation based on the??Chronic Kidney Disease Epidemiology Collaboration (CKD-EPI) equation refit??without adjustment for race. BUN/Creatinine Ratio 46.1 LAB CHEMISTRY METHOD 06/28/2024 2:45 PM [facility] Calcium 8.5 8.5 - 10.5 mg/dL LAB CHEMISTRY METHOD 06/28/2024 2:45 PM [facility] AST (SGOT) 25 10 - 42 unit/L LAB CHEMISTRY METHOD 06/28/2024 2:45 PM [facility] ALT (SGPT) 47 10 - 60 unit/L LAB CHEMISTRY METHOD 06/28/2024 2:45 PM [facility] Alkaline Phosphatase 150(H) 42 - 121 unit/L LAB CHEMISTRY METHOD 06/28/2024 2:45 PM [facility] Total Protein 5.5(L) 6.0 - 8.0 g/dL LAB CHEMISTRY METHOD 06/28/2024 2:45 PM [facility] Albumin 2.7(L) 3.2 - 5.0 g/dL LAB CHEMISTRY METHOD 06/28/2024 2:45 PM [facility] Total Bilirubin 0.3 0.0 - 1.4 mg/dL LAB CHEMISTRY METHOD 06/28/2024 2:45 PM [facility] Blood Venous blood specimen / Unknown Venipuncture / Unknown 06/28/2024 6:01 AM EST 06/28/2024 11:11 AM EST us Lamonte Sagastume MD LAB BLOOD ORDERABLES Final Res ult [facility] [address] [place] [address], documented in this encounter Visit Diagnoses Diagnosis Type 2 diabetes mellitus without complications (CMS/HCC) documented in this encounter Care Teams Physical Education Professor Relationship Specialty Start Date End Date Jewel Rebolledo MD [address] [place] [address] PCP - General 09/25/22 documented as of this encounter
--- OUTSIDE RECORDS SUMMARY | 2024-10-11 15:49 | XMS_ITS | Clinical Summary ---
Author Organization [address] Address [address] [place] [address] Phone Care Team Providers Care Nail Puller Name Role Phone Jewel Rebolledo MD Primary Care Provider [phone] Social History Tobacco Use Types Packs/Day Years Used Date Smoking Tobacco: Never Assessed Sex and Gender Information Value Date Recorded Sex Assigned at Not on file Legal Sex Male 2:37 AM EST Gender Identity Not on file Sexual Orientation Not on file Plan of Treatment Health Maintenance Due Date Last Done Comments Diabetes: Annual Foot Exam 1945 Diabetes: Annual Retina Eye Exam 1945 DTaP,Tdap,and Td Vaccines (1 - Tdap) 1956 Zoster Vaccines (1 of 2) 1987 RSV Immunization Patients 60+ Years Old (1 - 1-dose 75+ series) 2012 Pneumococcal Vaccine: 50+ Years (2 of 2 - PCV) 03/11/2022 03/11/2021 Cholesterol Screening (Lipid Panel) 07/27/2022 Depression Screening 07/27/2022 Falls Risk Assessment 07/27/2022 Social Influencers of Health Screening 07/27/2022 COVID-19 Vaccine ( season) 2024 Influenza Vaccine (#1) 2024 2, 04/20/2021, 05/21/2020, Additional history exists Diabetes: Blood Sugar Control Test (HGBA1C) 06/27/2024 HIB Vaccines Aged Out No longer eligi ble based on patient's age to complete this topic HPV Vaccines Aged Out No longer eligi ble based on patient's age to complete this topic Hepatitis A Vaccines Aged Out No long er eligible based on patient's age to complete this topic Hepatitis B Vaccines Aged Out No long er eligible based on patient's age to complete this topic IPV Vaccines Aged Out No longer eligi ble based on patient's age to complete this topic MMR Vaccines Aged Out No longer eligi ble based on patient's age to complete this topic Meningococcal ACWY Vaccine Aged Out N o longer eligible based on patient's age to complete this topic Meningococcal B Vacine Aged Out No lo nger eligible based on patient's age to complete this topic RSV Immunization Patients Under 20 months Aged Out No longer eligible based on patient's age to complete this topic Varicella Vaccines Aged Out No longer eligible based on patient's age to complete this topic Advance Directives Documents on File Type Date Recorded Patient Mine Foreman Expl anation Health Care Decision (hx) 01/27/2024 CHATO MANDEL DIRECTIVE Care Teams Nail Puller Relationship Specialty Start Date End Date Jewel Rebolledo MD [address] [place] [address] [place] PCP - General 09/25/22
--- OUTSIDE RECORDS SUMMARY | 2024-10-11 15:49 | XMS_ITS ---
Author Organization [facility] Address [address] [place] [address] Care Team Providers Care Ehs Manager Name Role Phone Jewel Rebolledo MD Primary Care Provider Matilde Stanley Unavailable [phone] Allergies Allergen (clinical drug ingredient) Drug/Non Drug Allergy documented on EMR Reaction Allergy Type Onset Date Status Advil Unknown Drug Allergy Active REASON FOR VISIT PCP: 08/2023, At Risk Footcare, Skin problem(s) Medications Medication SIG (Take, Route, Frequency, Duration) Notes Start Date End Date Status Probiotic Not-Taking oxyCODONE HCl 10 MG 1 tablet as needed Orally every 6 hrs Not-Taking Metoprolol Succinate ER 25 MG 1 tablet Orally Once a day for 30 day(s) Active Extra Depth Orthopedic Shoes (1 Pair) with Customized Heat Molded Multidensity Innersoles (3 Pair) as directed Dx: IDDM/Polyneuropathy (E10.42), Hammertoe Foot Deformity (M20.41,M20.42), Preulcerative Skin Lesion(s) (L85.1) 10/13/2019 Active Furosemide 20 MG 1 tablet Orally Once a day for 30 day(s) Active Symbicort 80-4.5 MCG/ACT 2 puffs Inhalation Active Vitamin D3 Active Combivent Respimat 20-100 MCG/ACT 1 puff as needed Inhalation Active Tresiba FlexTouch Ac tive NovoLOG 100 UNIT/ML as directed Subcutaneous Active Atorvastatin Calcium 40 MG 1 tablet Oral ly Once a day Active Losartan Potassium 25 MG 1 tablet Orally Once a day for 30 day(s) Active Pregabalin 150 MG 1 capsule Orally Onc e a day Active Eliquis 5 MG as directed Orally Active Vitamin B1 Active Fish Oil Active Magnesium 250 MG 1 tablet with a meal Orally Once a day for 30 day(s) Active Isosorbide Dinitrate 30 MG 1 tablet Oral ly Twice a day Active Turmeric Curcumin - as directed Orally Active clonazePAM 1 MG 1 tablet at bedtime Orally Once a day Not-Taking Lorazepam Not-Taking Melatonin Not-Taking Gabapentin 500 mg 1 capsule Orally Thr ee times a day Not-Taking Lantus SoloStar 100 UNIT/ML 0.1 ml Subcutaneous Once a day for 30 day(s) Not-Taking Betamethasone Dipropionate Aug Not-Taking PHENobarbital Not-Ta erika Vitamin D Not-Taking Extra Depth Orthopedic Shoes (1 Pair) with Customized Heat Molded Multidensity Innersoles (3 Pair) as directed Dx: NIDDM/Polyneuropathy (E11.42), Hammertoe Foot Deformity (M20.41,M20.42), Preulcerative Skin Lesion(s) (L85.1 05/08/2016 Not-Taking Extra-Depth Diabetic Shoes with 3 Pair Custom heat-molded multi-density innersoles . for 1 year . Dx:hammertoes 1-5 b/l with calloused lesions for . 10/23/2014 Not-Taking Extra-Depth Diabetic Shoes with 3 Pair Custom heat-molded multi-density innersoles . for 1 year . Dx:IDDM/NEURO hammertoes and preulcerative lesions for . 12/21/2013 Not-Taking Extra-Depth Diabetic Shoes with 3 Pair Custom heat-molded multi-density innersoles . 1pair shoes/3sets inserts . . for 1 year 02/14/2013 Not-Takin g Vitamin B Plus+ Not- Taking Vitamin B Complex No t-Taking Metoprolol Tartrate 50 MG 1/2 tablet Ora lly Twice a day Not-Taking predniSONE Not-Takin g Lyrica Not-Taking Calcium Not-Taking Ventolin HFA Not-Denton ing Sulindac Not-Taking Aspirin 81 MG 1 tablet Orally Once a day for 30 day(s) Not-Taking Flax Seeds Not-Takin g Ipratropium-Albuterol 20-100 MCG/ACT 1 puff as needed Inhalation every 6 hrs Not-Takin g Gabapentin 100 MG 1 capsule Orally Onc e a day for 30 day(s) Not-Taking Sulfamethoxazole - as directed Not-Taking Trospium Chloride 20 MG 1 tablet at bedt mayito on an empty stomach Orally Once a day for 30 day(s) Not-Taking Cipro 500 MG 1 tablet Orally ever y 12 hrs for 7 days 08/19/2023 Not-Taking Santyl 250 UNIT/GM 1 application to affected area Externally to Foot Ulcer Once a day to wound right foot measuring 15 mm x 15mm x 3mm for 30 days 08/11/2023 Not-Taking Extra Depth Orthopedic Shoes (1 Pair) with Customized Heat Molded Multidensity Innersoles (3 Pair) as directed Dx: NIDDM/Polyneuropathy (E11.42), Hammertoe Foot Deformity (M20.41,M20.42), Preulcerative Skin Lesion(s) (L85.1 11/26/2022 Not-Taking Milk Thistle Not-Denton ing levoFLOXacin Not-Denton ing Doxycycline Hyclate 100 MG 1 capsule Ora lly Twice a day for 10 day(s) 08/11/2023 Not-Taking Ammonium Lactate 12 % 1 application Externally Twice a day for 30 days Not-Taking zzzCompression Stockings 20-30mm Hg . . With Zipper Not-Taking Vitamin C 1000 MG as directed Orally Once a day Not-Taking Extra Depth Orthopedic Shoes (1 Pair) with Customized Heat Molded Multidensity Innersoles (3 Pair) as directed Dx: IDDM/Polyneuropathy (E10.42), Hammertoe Foot Deformity (M20.41,M20.42), Preulcerative Skin Lesion(s) (L85.1) 03/07/2021 Not-Taking Vitamin B 12 Not-Denton ing Multivitamins as directed Orally Not-Taking Flonase Not-Taking Social History Tobacco Use: Social History Observation Description Date Details (start date - stop date) Former Smoker NA - NA Tobacco Use/Smoking Question Answer Notes Are you a: former smoker Additional Findings: Tobacco Non-User Current no n-smoker Alcohol Screen Question Answer Notes Did you have a drink contain ing alcohol in the past year? Yes How often did you have a dri nk containing alcohol in the past year? Monthly or less (1 point) Points 1 Interpretation Negative Tobacco use other than smoking: Question Answer Notes Are you an other tobacco user? 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 ; Pressure ulcer, heel, left, unstageable L89.620 ; Type 1 diabetes mellitus with diabetic polyneuropathy E10.42 ; Tinea unguium B35.1 ; Atherosclerosis of artery of both lower extremities I70.203 ; Pes planus of left foot M21.42 and Pes planus of right foot M21.41 Assessments Encounter Date Diagnosis (ICD Code) Assessment Notes Treatment Notes Treatment Clinical Notes Section Notes 12/09/2023 Neuropathic ulcer of right foot, limited to breakdown of skin (ICD-10 - L97.511) 12/09/2023 Pressure ulcer, heel, left, unstageable (ICD-10 - L89.620) 12/09/2023 Type 1 diabetes mellitus with diabetic polyneuropathy (ICD-10 - E10.42) 12/09/2023 Tinea unguium (ICD-10 - B35.1) 12/09/2023 Atherosclerosis of artery of both lower extremities (ICD-10 - I70.203) 12/09/2023 Pes planus of left foot (ICD-10 - M21.42) 12/09/2023 Pes planus of right foot (ICD-10 - M21.41) Plan Of Treatment Next Appt Details Follow Up: 2 Months, Reason: Procedure Notes * Category Sub-Category Detail Notes Debride Nail 6-10 Nail debridement Nail debridem ent performed extensively to reduce/remove overall nail length and girth, subungual debris, and necrotic tissue, by manual and electrical means with use of a nail nipper and/or dremel, to more viable healthy nail plate or bed tissue 6-10. Silver nitrate used for any petechial bleeding as necessary. Patient chooses, no pharmaceutical tx (05829) Debride skin< 25 sq cm Open wound NEUROPATH Y: Physician of record performed open wound selective debridement of first 25 sq cm or less, of devitilized necrotic/nonviable soft tissue, fibrin, and exudate extending from the epidermis through the dermis, utilizing sharp dissection with sterile 15 blade, and/or tissue nippers. Hemostasis was controlled through direct pressure. Sterile antibiotic dressing applied, ANESTHESIA was not required due to presence of NEUROPATHY. Post debridement measurements: 7 mm x 5 mm x 2 mm. Character of the wound post debridement is stable (08278) Keratoma Treatment Parring or Cutting o f Benign Hyperkeratotic Lesion(s) 61700 ( More than 4 Lesions ) - The Benign hyperkeratotic lesions, as described above were pared, and/or cut utilizing a sterile 15 blade, tissue nippers, and/or dremel Progress Notes * Jewel NEAL PDOB: [birth year] (88 yo M)Acc No.[id number]:12/09/2023 Progress Note Patient:?Jewel Neal Provider:?Matilde Jalloh DPM :1935???Age:88 Y???Sex:Male Samuel e:12/09/2023 Address:[address] [place] [id number] Pcp:Jewel Rebolledo MD Subjective: * Chief Complaints: * ??? PCP: t Risk Foot careSkin problem(s) * HPI: ???At Risk footcare:?Pt States Last PCP Visit:?Date?09/09/2023 ???Skin problems:?Nature:?Open sore.?Location:?Outside , Heel/Rearfoot , Right.?Onset/Cause:?gradual , insidious.?Course:?unresolved.?Aggravated by:?any pressure.?Treatments:?Pt seeing [facility] wound care, offloading boots, revascularization by Dr Balderas?.? * ROS:?General/Constitutional:?Nausea?denies, denies, denies, denies.?Vomiting?denies, denies, denies, denies.?Hunger Thirst?denies, denies, denies, denies.?Loss appetite?denies, denies, denies, denies.?Chills?denies, denies, denies, denies.?Fatigue?denies, denies, denies, denies.?Fever?denies, denies, denies, denies.?Night Sweats?denies, denies, denies, denies.?Unexplained weight loss?denies, denies, denies, denies.?Unexplained weight gain?denies, denies, denies, denies.?HEENTM:?Dentures?denies, denies, denies, denies.?Dizziness?denies, denies, denies, denies.?Glasses/contacts?denies, denies, denies, denies.?Retinopathy?denies, denies, denies, denies.?Blurred/double vision?denies, denies, denies, denies.?TMJ?denies, denies, denies, denies.?Discharge/drainage?denies, denies, denies, denies.?Implants?denies, denies, denies, denies.?Sore throat?denies, denies, denies, denies.?Dental implants?denies, denies, denies, denies.?Hard of hearing ?denies, denies, denies, denies.?Difficulty chewing/swallowing/speaking?denies, denies, denies, denies.?Nose bleeds?denies, denies, denies, denies.?Sore mouth?denies, denies, denies, denies.?Respiratory:?On Oxygen?denies, denies, denies, denies.?Pneumonia/pleurisy?denies, denies, denies, denies.?Bronchitis?denies, denies, denies, denies.?Emphysema?denies, denies, denies, denies.?Coughing?denies, denies, denies, denies. Cough blood?denies, denies, denies, denies.?Shortness of breath?denies, denies, denies, denies.?Wheezing?denies, denies, denies, denies.?Cardiovascular:?Pacemaker?denies, denies, denies, denies.?MVP?denies, denies, denies, denies.?WPW?denies, denies, denies, denies.?CHF?denies, denies, denies, denies.?Heart attack?denies, denies, denies, denies.?Septal defect?denies, denies, denies, denies.?Rapid beat?denies, denies, denies, denies.?Chest pain ?denies, denies, denies, denies.?Atrial Fib.?denies, denies, denies, denies.?Murmur/Palpitations?denies, denies, denies, denies.?Gastrointestinal:?Hemorrhoids?denies, denies, denies, denies.?Stomach/Abdominal pain?denies, denies, denies, denies.?Dark blood stool?denies, denies, denies, denies.?Irritable bowel ?denies, denies, denies, denies.?Constipation?denies, denies, denies, denies.?Diarrhea?denies, denies, denies, denies.?Hematology:?Swelling?admits, admits, admits, admits.?Clots?denies, denies, denies, denies.?Varicose Veins?denies, admits, denies, denies.?Bruising?admits, admits, admits, admits.?Bleeding problem?denies, denies, denies, denies.?Genitourinary:?Blood urine?denies, denies, denies, denies.?Frequent/Painfu/urination/bladder control?denies, denies, denies, denies.?Kidney stones?denies, denies, denies, denies.?Infection (UTI)?denies, denies, denies, denies.?Nephropathy denies, denies, denies, denies.?sex trans dis (STD)?denies, denies, denies, denies.?Prostate?denies, denies, denies, denies.?Musculoskeletal:?Hammertoes?denies, denies, denies, denies.?Bunions?denies, denies, denies, denies.?Back Pain?denies, denies, denies, denies.?Muscle Cramps/ Resting?denies, denies, denies, denies.?Muscle cramps / walking?denies, denies, denies, denies.?Generalized aches and pains?admits, admits, admits, admits.?Weakness?denies, denies, denies, denies.?Integ.:?Mack?denies, denies, denies, denies.?Scars?denies, denies, denies, denies.?Corns/calluses?denies, denies, denies, denies.?Ingrown nails?denies, denies, denies, denies.?Painful nails?denies, denies, denies, denies. Open Sores?denies, admits, denies, denies.?Rashes?denies, denies, denies, denies.?Neurologic:?Difficulty sleeping?denies, denies, denies, denies.?Brain disorder?denies, denies, denies, denies.?Numbness?denies, denies, denies, denies.?Balance trouble?denies, denies, denies, denies.?Confusion?denies, denies, denies, denies.?Fainting/blackouts?denies, denies, denies, denies.?Tingling?denies, denies, denies, denies.?Tremors?denies, denies, denies, denies.? * Medical History:? * Surgical History:?prostate s urgery back surgery right knee replacement hernia left knee replacement 2012Back surgery 04/04/2015Foot surgery/hammer toe, left 10/23/2015foot surgery- left 06/18/2016cardiac pacemeker LE revasclarization 2023 * Hospitalization/Major Diagno stic Procedure:?Patient had left knee replacement at [facility]. 03/25/2012 for foot surgery- IPJ fusion left hallux, rearfoot fusion left 10/23/2015[facility] bladder 02/2017[facility]-Af[facility] 1 week in hospital 2 weeks in rehab trial fibrillation/ [facility] 09/15[facility] - Bladder infection 2022fell, ruled out seisure 09/16 * Family History:?Mother: dece ased, diagnosed with Diabetic - NIDDM.?Father: , diagnosed with Other malignant neoplasm of unspecified site.? * Social History:?Tobacco Use:?Tobacco Use/Smoking?Are you a:?former smoker ?Additional Findings: Tobacco Non-User?Current non-smoker ?Tobacco use other than smoking?Are you an other tobacco user??No ???Drugs/Alcohol:?Drugs?Have you used drugs other than those for medical reasons in the past 12 months??No ?Alcohol Screen?Did you have a drink containing alcohol in the past year??Yes ?How often did you have a drink containing alcohol in the past year??Monthly or less (1 point) ?Points?1 ?Interpretation?Negative ???Miscellaneous:?Caffeine: yes, frequency:, 1-2 cups per day. ?Children: yes. ?Exercise: yes, PT at home, working out. ?Marital status: . 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 * Medications:?TakingTurmeric Curcumin - Capsule as directed Orally Isosorbide Dinitrate 30 MG Tablet 1 tablet Orally Twice a dayMagnesium 250 MG Tablet 1 tablet with a meal Orally Once a dayFish Oil Vitamin B1 Eliquis 5 MG Tablet as directed Orally Pregabalin 150 MG Capsule 1 capsule Orally Once a dayLosartan Potassium 25 MG Tablet 1 tablet Orally Once a dayAtorvastatin Calcium 40 MG Tablet 1 tablet Orally Once a dayNovoLOG 100 UNIT/ML Solution as directed Subcutaneous Tresiba FlexTouch Combivent Respimat 20-100 MCG/ACT Aerosol Solution 1 puff as needed Inhalation Vitamin D3 Symbicort 80-4.5 MCG/ACT Aerosol 2 puffs Inhalation Furosemide 20 MG Tablet 1 tablet Orally Once a dayExtra Depth Orthopedic Shoes (1 Pair) with Customized Heat Molded Multidensity Innersoles (3 Pair) as directed Dx: IDDM/Polyneuropathy (E10.42), Hammertoe Foot Deformity (M20.41,M20.42), Preulcerative Skin Lesion(s) (L85.1)Metoprolol Succinate ER 25 MG Tablet Extended Release 24 Hour 1 tablet Orally Once a dayTaking Turmeric Curcumin - Capsule as directed Orally Taking Isosorbide Dinitrate 30 MG Tablet 1 tablet Orally Twice a dayTaking Magnesium 250 MG Tablet 1 tablet with a meal Orally Once a dayTaking Fish Oil Taking Vitamin B1 Taking Eliquis 5 MG Tablet as directed Orally Taking Pregabalin 150 MG Capsule 1 capsule Orally Once a dayTaking Losartan Potassium 25 MG Tablet 1 tablet Orally Once a dayTaking Atorvastatin Calcium 40 MG Tablet 1 tablet Orally Once a dayTaking NovoLOG 100 UNIT/ML Solution as directed Subcutaneous Taking Tresiba FlexTouch Taking Combivent Respimat 20-100 MCG/ACT Aerosol Solution 1 puff as needed Inhalation Taking Vitamin D3 Taking Symbicort 80-4.5 MCG/ACT Aerosol 2 puffs Inhalation Taking Furosemide 20 MG Tablet 1 tablet Orally Once a dayTaking Extra Depth Orthopedic Shoes (1 Pair) with Customized Heat Molded Multidensity Innersoles (3 Pair) as directed Dx: IDDM/Polyneuropathy (E10.42), Hammertoe Foot Deformity (M20.41,M20.42), Preulcerative Skin Lesion(s) (L85.1)Taking Metoprolol Succinate ER 25 MG Tablet Extended Release 24 Hour 1 tablet Orally Once a dayNot-Taking/PRNoxyCODONE HCl 10 MG Tablet 1 tablet as needed Orally every 6 hrsProbiotic Flonase Multivitamins Capsule as directed Orally Vitamin B 12 Extra Depth Orthopedic Shoes (1 Pair) with Customized Heat Molded Multidensity Innersoles (3 Pair) as directed Dx: IDDM/Polyneuropathy (E10.42), Hammertoe Foot Deformity (M20.41,M20.42), Preulcerative Skin Lesion(s) (L85.1)Vitamin C 1000 MG Tablet as directed Orally Once a dayzzzCompression Stockings 20-30mm Hg 1 pair closed toe- knee high . . With ZipperAmmonium Lactate 12 % Cream 1 application Externally Twice a dayDoxycycline Hyclate 100 MG Capsule 1 capsule Orally Twice a daySantyl 250 UNIT/GM Ointment 1 application to affected area Externally to Foot Ulcer Once a day to wound right foot measuring 15 mm x 15mm x 3mmCipro 500 MG Tablet 1 tablet Orally every 12 hrslevoFLOXacin Milk Thistle Extra Depth Orthopedic Shoes (1 Pair) with Customized Heat Molded Multidensity Innersoles (3 Pair) as directed Dx: NIDDM/Polyneuropathy (E11.42), Hammertoe Foot Deformity (M20.41,M20.42), Preulcerative Skin Lesion(s) (L85.1Trospium Chloride 20 MG Tablet 1 tablet at bedtime on an empty stomach Orally Once a daySulfamethoxazole - Powder as directed Gabapentin 100 MG Capsule 1 capsule Orally Once a dayIpratropium-Albuterol 20-100 MCG/ACT Aerosol Solution 1 puff as needed Inhalation every 6 hrsFlax Seeds Calcium Lyrica Aspirin 81 MG Tablet Chewable 1 tablet Orally Once a daySulindac Ventolin HFA predniSONE Metoprolol Tartrate 50 MG Tablet 1/2 tablet Orally Twice a dayVitamin B Complex Vitamin B Plus+ Extra-Depth Diabetic Shoes with 3 Pair Custom heat- molded multi-density innersoles . . 1pair shoes/3sets inserts . .Extra-Depth Diabetic Shoes with 3 Pair Custom heat-molded multi-density innersoles . . for 1 year . Dx:IDDM/NEURO hammertoes and preulcerative lesionsExtra-Depth Diabetic Shoes with 3 Pair Custom heat-molded multi-density innersoles . . for 1 year . Dx:hammertoes 1-5 b/l with calloused lesionsExtra Depth Orthopedic Shoes (1 Pair) with Customized Heat Molded Multidensity Innersoles (3 Pair) as directed Dx: NIDDM/Polyneuropathy (E11.42), Hammertoe Foot Deformity (M20.41,M20.42), Preulcerative Skin Lesion(s) (L85.1Vitamin D PHENobarbital Lorazepam Betamethasone Dipropionate Aug Lantus SoloStar 100 UNIT/ML Solution 0.1 ml Subcutaneous Once a dayGabapentin 500 mg Capsule 1 capsule Orally Three times a dayMelatonin clonazePAM 1 MG Tablet 1 tablet at bedtime Orally Once a dayMedication List reviewed and reconciled with the patientNot-Taking/PRN oxyCODONE HCl 10 MG Tablet 1 tablet as needed Orally every 6 hrsNot-Taking/PRN Probiotic Not-Taking/PRN Flonase Not-Taking/PRN Multivitamins Capsule as directed Orally Not-Taking/PRN Vitamin B 12 Not-Taking/PRN Extra Depth Orthopedic Shoes (1 Pair) with Customized Heat Molded Multidensity Innersoles (3 Pair) as directed Dx: IDDM/Polyneuropathy (E10.42), Hammertoe Foot Deformity (M20.41,M20.42), Preulcerative Skin Lesion(s) (L85.1)Not-Taking/PRN Vitamin C 1000 MG Tablet as directed Orally Once a dayNot-Taking/PRN zzzCompression Stockings 20- 30mm Hg 1 pair closed toe- knee high . . With ZipperNot-Taking/PRN Ammonium Lactate 12 % Cream 1 application Externally Twice a dayNot-Taking/PRN Doxycycline Hyclate 100 MG Capsule 1 capsule Orally Twice a dayNot-Taking/PRN Santyl 250 UNIT/GM Ointment 1 application to affected area Externally to Foot Ulcer Once a day to wound right foot measuring 15 mm x 15mm x 3mmNot-Taking/PRN Cipro 500 MG Tablet 1 tablet Orally every 12 hrsNot-Taking/PRN levoFLOXacin Not-Taking/PRN Milk Thistle Not-Taking/PRN Extra Depth Orthopedic Shoes (1 Pair) with Customized Heat Molded Multidensity Innersoles (3 Pair) as directed Dx: NIDDM/Polyneuropathy (E11.42), Hammertoe Foot Deformity (M20.41,M20.42), Preulcerative Skin Lesion(s) (L85.1Not-Taking/PRN Trospium Chloride 20 MG Tablet 1 tablet at bedtime on an empty stomach Orally Once a dayNot- Taking/PRN Sulfamethoxazole - Powder as directed Not-Taking/PRN Gabapentin 100 MG Capsule 1 capsule Orally Once a dayNot-Taking/PRN Ipratropium-Albuterol 20-100 MCG/ACT Aerosol Solution 1 puff as needed Inhalation every 6 hrsNot-Taking/PRN Flax Seeds Not-Taking/PRN Calcium Not-Taking/PRN Lyrica Not-Taking/PRN Aspirin 81 MG Tablet Chewable 1 tablet Orally Once a dayNot-Taking/PRN Sulindac Not-Taking/PRN Ventolin HFA Not-Taking/PRN predniSONE Not-Taking/PRN Metoprolol Tartrate 50 MG Tablet 1/2 tablet Orally Twice a dayNot-Taking/PRN Vitamin B Complex Not-Taking/PRN Vitamin B Plus+ Not-Taking/PRN Extra-Depth Diabetic Shoes with 3 Pair Custom heat-molded multi-density innersoles . . 1pair shoes/3sets inserts . .Not-Taking/PRN Extra- Depth Diabetic Shoes with 3 Pair Custom heat-molded multi-density innersoles . . for 1 year . Dx:IDDM/NEURO hammertoes and preulcerative lesionsNot-Taking/PRN Extra-Depth Diabetic Shoes with 3 Pair Custom heat-molded multi-density innersoles . . for 1 year . Dx:hammertoes 1-5 b/l with calloused lesionsNot-Taking/PRN Extra Depth Orthopedic Shoes (1 Pair) with Customized Heat Molded Multidensity Innersoles (3 Pair) as directed Dx: NIDDM/Polyneuropathy (E11.42), Hammertoe Foot Deformity (M20.41,M20.42), Preulcerative Skin Lesion(s) (L85.1Not-Taking/PRN Vitamin D Not-Taking/PRN PHENobarbital Not-Taking/PRN Lorazepam Not-Taking/PRN Betamethasone Dipropionate Aug Not-Taking/PRN Lantus SoloStar 100 UNIT/ML Solution 0.1 ml Subcutaneous Once a dayNot-Taking/PRN Gabapentin 500 mg Capsule 1 capsule Orally Three times a dayNot-Taking/PRN Melatonin Not-Taking/PRN clonazePAM 1 MG Tablet 1 tablet at bedtime Orally Once a dayMedication List reviewed and reconciled with the patient * Allergies:?Advil: Allergyyes [Allergies Verified] Objective: * Vitals:?Ht: 5 ft 7 in, Wt:17 0, BMI:26.62, Shoe size:10, BP:120/60 mm Hg, BS:not taken. * ???Past Orders: ???Lab:HEMOGLOBIN A1C (GLYCO HEMOGLOBIN) (Order Date - 03/24/2023) (Collection Date - 03/24/2023) ? Value Reference Range ?HEMOGLOBIN A1C % (HH) 6.5 * Examination: ???Ophthalmology Referral: ?DIABETES EYE EXAM?Vascular: ?DP PULSES:?1/4, B/L.?PT PULSES:?0/4, B/L.?CAPILLARY FILL TIME:?4 secs. per digit.?SKIN TEMPERTURE GRADIENT OF THE LOWER EXTERMITIES:?decreased, cool to cool, proximal to distal, B/L.?HAIR GROWTH/TEXTURE/ELASTICITY/TURGOR:?decreased, B/L , sparce hair growth , dystrophic (thin,shiny).?PIGMENTATION:?pale, B/L.?Dermatologic: ?SKIN FINDINGS:?Skin exam reveals Keratotic lesion(s) located at TA, T5 T6, heels B/L,.?ULCER:?LOCATION, lateral rearfoot LEFT?SIZE, 7 mm X 5 mm X 2mm, BASE, granular, RIM, hyperkeratotic, UNDERMINING, absent, TRACKING, Full thickness breakdown of skin, DRAINAGE, serosanguineous, mild, NECROTIC TISSUE, loosely-adherent, yellow slough, MALODOR, absent, CALOR, absent, ERYTHEMA, absent, PAIN ON PALPATION, present.?Neurological: ?SENSORY:? Neurological exam demonstrates, reduced light touch sensation, reduced sharp/dull pin prick discrimination , B/L, 5.07 monofilament test performed at plantar aspects of 5 varied sites per foot shows sensation, reduced , B/L?.?Nails: ?NAILS are:?Elongated, overgrown, dystrophic, lytic, greater than 3mm thick, discolored and friable with crumbly malodorous subungual debris.?Orthopedic: ?GAIT ABNORMALITY:?Pronated , abducted angle and base of gate.?FOOT MORPHOLOGY:?B/L , Pes Planus structure , Rigid.?Heel Pain: ?INSPECTION REVEALS:?LEFT foot pain on palpation lateral heel.? 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 Plan: * Treatment: * Procedures:?Debride Nail 6-10:?Nail debridement?Nail debridement performed extensively to reduce/remove overall nail length and girth, subungual debris, and necrotic tissue, by manual and electrical means with use of a nail nipper and/or dremel, to more viable healthy nail plate or bed tissue 6-10. Silver nitrate used for any petechial bleeding as necessary. Patient chooses, no pharmaceutical tx (89804).?Debride skin< 25 sq cm:?Open wound?NEUROPATHY: Physician of record performed open wound selective debridement of first 25 sq cm or less, of devitilized necrotic/nonviable soft tissue, fibrin, and exudate extending from the epidermis through the dermis, utilizing sharp dissection with sterile 15 blade, and/or tissue nippers. Hemostasis was controlled through direct pressure. Sterile antibiotic dressing applied, ANESTHESIA was not required due to presence of NEUROPATHY. Post debridement measurements: 7 mm x 5 mm x 2 mm. Character of the wound post debridement is stable (41824).?Keratoma Treatment:?Parring or Cutting of Benign Hyperkeratotic Lesion(s)?15951 ( More than 4 Lesions ) - The Benign hyperkeratotic lesions, as described above were pared, and/or cut utilizing a sterile 15 blade, tissue nippers, and/or dremel.? * Procedure Codes:?63722 DEBRI DE NAIL, 6 OR MORE, Modifiers: XS 33472 TRIM SKIN LESIONS, OVER 4, Modifiers: XS 31249 ACTIVE WOUND CARE/20 CM OR <, Modifiers: XS * Preventive Medicine:? ??Counseling:?Discussion:?-13: Office or other outpatient visit for the evaluation and management of an established patient, which required a medically appropriate history and/or examination and LOW level of DECISION MAKING for: 1 STABLE ACUTE UNCOMPLICATED PROBLEM, 2 OR MORE MINOR PROBLEMS, OR 1 STABLE CHRONIC PROBLEM, THAT POSE(S) A LOW RISK FOR MORBIDITY/MORTALITY. The visit on the day of the encounter encompassed interpreting the data and educating the patient as to the nature of their condition, treatment options available according to their individual PMH, meds, allergies, and overall health/living conditions, as well as any potential risks or complications that may occur from a failure to adhere to, and participate in, the recommended course of therapy. The discussion included a complete verbal, and/or written explanation of the examination results, any x-rays taken, the proposed diagnosis, and outline of the treatment plan. A schedule for future care needs was also explained. The patient verbalized an understanding of the instructions at this time and agreed to be an active participant in their treatment. If the patient should think of any questions or concerns after the visit, I have encouraged the patient to call the office.?BioMech.:?I discussed the Pts foot biomechanics with them and how it relates to their problem.?P.R.I.C.E.:?The patient was counseled on the use of P.R.I.C.E. and NSAIDS (if well tolerated) to aid in the recovery from their painful condition, Recommended Topical analgesics including Aspercream/Biofreeze/Voltaren gel as directed.?Ulcer:?Pt should continue follow up with wound care and revascularization with Dr Balderas.? * Follow Up:?2 Months * Images: * Sign off status: Completed true * Provider:?Matilde Jalloh, PACO Date:? Generated for Med blount/Rambo/Reggie on:?10/11/2024 03:48 PM EST History and Physical Notes * HPI (History of Present Illness) Category Sub-Category Detail Notes Category Not es Skin problems Nature: Open sore Location: Outside , Heel/Rearf oot , Right Onset/Cause: gradual , insidious Course: unresolved Aggravated by: any pressure Treatments: Pt seeing [facility] wound care, offloading boots, revascularization by Dr Balderas At Risk footcare Pt States Last PCP Visit: Date: 4 Examination Category Sub-Category Detail Notes Category Not es Heel Pain INSPECTION REVEALS: LEFT foot pa in on palpation lateral heel Neurological SENSORY: Neurological exa m demonstrates, reduced light touch sensation, reduced sharp/dull pin prick discrimination , B/L, 5.07 monofilament test performed at plantar aspects of 5 varied sites per foot shows sensation, reduced , B/L Dermatologic SKIN FINDINGS: Skin exam reveal s Keratotic lesion(s) located at TA, T5 T6, heels B/L, ULCER: LOCATION, lateral re arfoot LEFT SIZE, 7 mm X 5 mm X 2mm, BASE, granular, RIM, hyperkeratotic, UNDERMINING, absent, TRACKING, Full thickness breakdown of skin, DRAINAGE, serosanguineous, mild, NECROTIC TISSUE, loosely-adherent, yellow slough, MALODOR, absent, CALOR, absent, ERYTHEMA, absent, PAIN ON PALPATION, present Orthopedic GAIT ABNORMALITY: Pronated , abducted ang le and base of gate FOOT MORPHOLOGY: B/L , Pes Planus str ucture , Rigid Ophthalmology Referral DIABETES EYE EXAM Diabetic Retinopa thy Screening:: No Findings of Diabetic Eye Exam:: no retin opathy Vascular DP PULSES (B): 1/4, B/L PT PULSES (B): 0/4, B/L CAPILLARY FILL TIME: 4 secs. per digit TEMPERTURE GRADIENT (C): decreased, cool to cool, proximal to distal, B/L TROPHIC CONDITION-TEXTURE/ELASTICITY/TURGOR/HAIR GROWTH (B): decreased, B/L , sparce hair growth , dy strophic (thin,shiny) PIGMENTATION: pale, B/L Nails NAILS are: Elongated, overg rown, dystrophic, lytic, greater than 3mm thick, discolored and friable with crumbly malodorous subungual debris
--- OUTSIDE RECORDS SUMMARY | 2024-10-11 15:49 | XMS_ITS | Encounter Summary ---
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 ([facility]); Unspecified fall, initial encounter; Type 2 diabetes mellitus without complications ([facility]) Social History Tobacco Use Types Packs/Day Years [...] Associated Diagnosis Comments COMPLETE BLOOD COUNT Routine 06/27/2024 4:47 AM EST 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 (CMS/HCC) Unspecified fall, initial encounter Type 2 diabetes mellitus without complications ([facility]) BASIC METABOLIC PANEL Routine 06/27/2024 4:47 AM EST 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 RBC 3.50(L) 4.50 - 5.50 M/mcL LAB HEMETOLOGY METHOD 06/27/2024 11:[address] [facility] Hemoglobin 9.7(L) 13.5 - 17.5 g/dL LAB HEMETOLOGY METHOD 06/27/2024 11:[address] [facility] Hematocrit 31.4(L) 42.0 - 54.0 % LAB HEMETOLOGY METHOD 06/27/2024 11:[address] [facility] MCV 90.0 79.0 - 98.0 FL LAB HEMETOLOGY METHOD 06/27/2024 11:[address] [facility] MCH 27.8 27.0 - 32.0 pcg LAB HEMETOLOGY METHOD 06/27/2024 11:[address] [facility] MCHC 30.9(L) 32.0 - 37.0 g/dL LAB HEMETOLOGY METHOD 06/27/2024 11:[address] [facility] RDW 17.8(H) 11.0 - 15.0 % LAB HEMETOLOGY METHOD 06/27/2024 11:[address] [facility] Platelets 158 130 - 400 K/mcL LAB HEMETOLOGY METHOD 06/27/2024 11:[address] [facility] MPV 10.5 7.0 - 11.0 FL LAB HEMETOLOGY METHOD 06/27/2024 11:[address] [facility] NRBC 0.0 <1.0 % LAB HEMETOLOGY METHOD 06/27/2024 11:[address] [facility] NRBC Absolute 0.00 <0.10 K/mcL LAB HEMETOLOGY METHOD 06/27/2024 11:31 AM EST [facility] Blood Venous blood specimen / Unknown Venipuncture / Unknown 06/27/2024 4:47 AM EST 06/27/2024 10:54 AM EST us Lamonte Sagastume MD LAB BLOOD ORDERABLES Final Res ult [facility] [address] [place] [address], [place] [phone] * (ABNORMAL) Basic metabolic panel (06/27/2024 4:47 AM EST) Sodium 140 133 - 145 mmol/L LAB CHEMISTRY METHOD 06/27/2024 11:[address] [facility] Potassium 4.1 3.5 - 5.5 mmol/L LAB CHEMISTRY METHOD 06/27/2024 11:[address] [facility] Chloride 103 96 - 110 mmol/L LAB CHEMISTRY METHOD 06/27/2024 11:[address] [facility] CO2 33(H) 21 - 32 mmol/L LAB CHEMISTRY METHOD 06/27/2024 11:[address] [facility] Anion Gap 4 3 - 11 LAB CHEMISTRY METHOD 06/27/2024 11:[address] [facility] Glucose 94 70 - 100 mg/dL LAB CHEMISTRY METHOD 06/27/2024 11:[address] [facility] BUN 51(H) 5 - 25 mg/dL LAB CHEMISTRY METHOD 06/27/2024 11:[address] [facility] Creatinine 0.96 0.70 - 1.30 mg/dL LAB CHEMISTRY METHOD 06/27/2024 11:[address] [facility] eGFR 77 >=60 mL/min/1. 73m2 LAB CHEMISTRY METHOD 06/27/2024 11:34 AM EST [facility] Comment:Calculation based on the??Chronic Kidney Disease Epidemiology Collaboration (CKD-EPI) equation refit??without adjustment for race. BUN/Creatinine Ratio 53.1 LAB CHEMISTRY METHOD 06/27/2024 11:34 AM EST [facility] Calcium 9.1 8.5 - 10.5 mg/dL LAB CHEMISTRY METHOD 06/27/2024 11:[address] 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
--- OUTSIDE RECORDS SUMMARY | 2024-10-11 15:49 | XMS_ITS | Patient Health Record ---
Author Organization [facility] Address [address] [place] [address] Care Team Providers Care University President Name Role Phone Jewel Rebolledo MD Primary Care Provider Joshua Sims Unavailable [phone] ALLERGIES Allergen (clinical drug ingredient) Drug/Non Drug Allergy documented on EMR Reaction Allergy Type Onset Date Status naproxen Naproxen Unknown Drug Allergy Active REASON FOR REFERRAL No Information MEDICATIONS Medication SIG (Take, Route, Frequency, Duration) Notes Start Date End Date Status Zinc Active Diphenoxylate-Atropine 2.5-0.025 MG Oral for 15 Active Trospium Chloride Ac tive [facility] D3 125 MCG (5000 UT) TAKE 1 CAPSULE BY MOUTH EVERY DAY Oral for 90 Active Vitamin B 12 Active Pregabalin 150 MG Oral for 90 Active Vitamin B1 Active Combivent Respimat 20-100 MCG/ACT Inhalation for 90 Active Milk Thistle Active Vitamin D3 125 MCG (5000 UT) TAKE 1 CAPSULE BY MOUTH EVERY DAY Oral for 90 Active Magnesium 250 MG 1 tablet with a meal Orally Once a day for 30 day(s) Active Multi Vitamin/Minerals Active Tresiba FlexTouch 100 UNIT/ML Subcutaneous for 86 Active Eliquis 5 MG TAKE 1 TABLET BY REGAN TH TWICE A DAY Oral for 90 Active oxyBUTYnin Chloride ER 15 MG Oral for 90 Active Fluticasone Propionate 50 MCG/ACT USE 2 SPRAYS EACH NOSTRIL ONCE DAILY Nasal for 90 Active Probiotic - as directed Orally Active Losartan Potassium 25 MG TAKE 1 TABLET B Y MOUTH EVERY DAY Oral for 90 Active NovoLOG FlexPen 100 UNIT/ML as directed Subcutaneous Act leslie Symbicort 80-4.5 MCG/ACT Inhalation for 90 Active IMMUNIZATIONS Vaccine Route Administration Date Status Comme nts Influenza Unknown 04/24/2021 Administered SOCIAL HISTORY Sex Assigned At : Social History Observation Description Sex Assigned At Unknown Alcohol Screen Question Answer Notes Did you have a drink containing alcohol in the p ast year? No Points 0 Interpretation Negative PROBLEMS Problem Type ICD Code Onset Dates Problem Status W/U Status Risk SNOMED Code Notes Problem Rectal bleeding (K62.5) Active confirmed Rectal bleeding (12573644) Problem Change in bowel habits (R19.4) Active confirmed 199743264 Problem Heme + stool (R19.5) Active confirmed 28252257 Problem Hx of adenomatous colonic polyps (Z86.010) Active confirmed 225697336 Problem Diverticulosis of colon (K57.30) Active confirmed Diverticulosi s of colon (838052786) PLAN OF TREATMENT Future Test Test Name Order Date COLONOSCOPY 01/27/2013 COLONOSCOPY 11/19/2021 Insurance Providers Payer Name Payer Address Payer Phone Subscriber Number Group Number Insured Name Patient Relationship to Insured Coverage Start Date Coverage End Date MEDICARE OF [place] [address] [place] [address] [id number] PAR[employer] Self - patient is the insured [employer] ATTN CLAIMS [address] [place] [phone] [id number] PARENT[employer]EWEL Self - patient is the insured MEDICAL (GENERAL) HISTORY Medical History History ICD Code Colonsocopy 02/2003 and 09/13-removal of small tubular adenomas-also noted were internal hemorrhoids and diverticulosis IDDM Hyperlipidemia Arthritis [place] > 10 yrs ago-2002--no problems since Denies CVA,renal disease Hypertension Prostate cancer--surgery as below, then subsequent XRT due to a rising PSA Atrial fibrillation-Dr. Deluca--cardiover kenny in 2020 Peripheral neuropathy Pacemaker Urinary incontinence CAD Unsteady gait with balanc issues Colonoscopy 03/2013 with removal of small tubular adenomas Some breathing issues --COPD Urinary frequency--has an artificial sph incter Diverticulitis noted on a CT scan in April of 2021 with inflammatory changes at the junction of the descending and sigmoid colon Colonoscopy in 11/2021 with X RT-telangiectasias, diverticulosis, small polyps not removed due to his Eliquis and low platelets, and internal hemorrhoids. Biopsies were negative for microscopic colitis. There was no IBD. Surgical History Surgery Date(Month/Year) Prostatectomy for cancer 1996 Cervical disc surgery Carpal tunnel release Back surgery x 5 Left knee replacement 2012 Right knee replacement 2010 Hernia Left foot surgery
--- OUTSIDE RECORDS SUMMARY | 2024-10-11 15:49 | XMS_ITS | Encounter Summary ---
Author Organization [facility] Address [address] [place] [address] Care Team Providers Care Medical Collector Name Role Phone Pcp, No Primary Care Provider Unavailabl e Reason for Visit * Reason Comments Appointment Encounter Details Date Type Department Care Team (Late st Contact Info) Description 12/03/2023 Telephone [facility] Center [address] [place] [address] Enoch Cardona MD [address] [phone] Appointment Social History Tobacco Use Types Packs/Day Years [...] on filedocumented in this encounter Care Teams Medical Collector Relationship Specialty Start Date End Date Pcp, No PCP - General General Medicine 08/19/23 documented as of this encounter
--- OUTSIDE RECORDS SUMMARY | 2024-10-11 15:49 | XMS_ITS | Encounter Summary ---
Author Organization [facility] Address [address] [place] [address] Care Team Providers Care Tufting Machine Operator Single Needle Name Role Phone Pcp, No Primary Care Provider Unavailabl e Reason for Visit * Reason Comments Appointment Encounter Details Date Type Department Care Team (Late st Contact Info) Description 01/13/2024 Telephone [facility] [address] [place] [address] Enoch Cardona MD [address] [phone] Appointment Social History Tobacco Use Types Packs/Day Years Used Date Smoking Tobacco: Former Cigarettes Alcohol Use Standard Drinks/Week Comments Yes 0 (1 standard drink = 0.6 oz pur e alcohol) Sex and Gender Information Value Date Recorded Sex Assigned at Not on file Gender Identity Male 08/19/2023 2:13 PM EST Sexual Orientation Not on file documented as of this encounter Miscellaneous Notes * Telephone Encounter - Kojo De La Garza V - 01/13/2024 8:35 AM EDT Returned patient call to let him know that we do not have a later appointment today. Patient confirmed. Ree documented in this encounter Plan of Treatment Not on file documented as of this encounter Visit Diagnoses Not on filedocumented in this encounter Care Teams Tufting Machine Operator Single Needle Relationship Specialty Start Date End Date Pcp, No PCP - General General Medicine 08/19/23 documented as of this encounter
--- OUTSIDE RECORDS SUMMARY | 2024-10-11 15:50 | XMS_ITS ---
Author Organization [facility] Address [address] [place] [address] Care Team Providers Care Dial Brusher Name Role Phone Jewel Rebolledo MD Primary Care Provider Matilde Stanley Unavailable [phone] Encounters Encounter Location Date Provider Diagnosis [address] [address] 02/12/2024 Matilde Jalloh Plan Of Treatment No Information Progress Notes * Jewel NEAL PDOB: [birth year] (89 yo M)Acc No.[id number]:02/12/2024 Progress Note Patient:?Jewel NEAL Provider:?Matilde Jalloh DPM :1935???Age:88 Y???Sex:Male Samuel e:02/12/2024 Address:[address] [place] [phone] Pcp:Jewel Rebolledo MD Subjective: * Chief Complaints: * ??? * Medical History:? Objective: * Vitals:? Assessment: Plan: * Treatment: * Images: * The named appointment provid er may or may not be the originator of this progress note, and it is not deemed complete until electronically signed by the appointment provider. Sign off status: Pending * Provider:?Matilde Jalloh DPM Date:? Generated for Med blount/Rambo/eTransmitting on:?10/11/2024 03:49 PM EST
== END 2024-10-11 15:23 | disposition home or self-care (01) ==
LOC: HO.HCS 14:47
PROVIDERS: PCP Internal Medicine; Visit Provider Internal Medicine Cardiovascular Disease
DX: I48.19 Other persistent atrial fibrillation (principal); I50.30 Unspecified diastolic (congestive) heart failure; Z95.0 Presence of cardiac pacemaker
CPT/HCPCS: 93280; 99214; G2211

== ENCOUNTER 2024-10-11 19:14 | Inpatient (IN) | payer MEDICARE, SELFPAY ==
--- NOTE | ~2024-10-11 | CT_ITS ---
CLINICAL HISTORY: fall, eliquis, ams CT head without contrast Comparison: CT/NE/SR - CT HEAD/BRAIN WO IV CON - 01/08/24 17:58 EDT Findings: No intra-axial mass, midline shift, hydrocephalus, or acute hemorrhage. Mild atrophy-like change or white matter disease. The visualized paranasal sinuses and mastoid air cells are normal. The orbits are unremarkable. No skull fracture. IMPRESSION: 1. No acute intracranial findings specifically, no acute intracranial hemorrhage. This document has been electronically signed by: Emerald Perea MD on 10/11/2024 20:50:29
--- NOTE | ~2024-10-11 | XR_ITS ---
CLINICAL HISTORY: CHF 1 view chest x-ray Comparison: CR/SR - XR CHEST 1V - 01/17/24 13:47 EDT Findings: Heart size within normal limits. Atherosclerotic vascular disease of aortic arch. Stable left side dual lead ICD. Interstitial thickening and mild bilateral pulmonary opacities. No significant pleural effusion or pneumothorax. No acute fracture. Degenerative changes of the shoulders. IMPRESSION: 1. Interstitial thickening and mild bilateral pulmonary opacities may represent pulmonary edema versus pneumonia. This document has been electronically signed by: Darcy Alexander MD on 10/11/2024 23:22:53
--- NOTE | ~2024-10-11 | XR_ITS ---
CLINICAL HISTORY: R foot pain r o infection 3 view right foot Comparison: CR/SR - XR FOOT RT MIN 3V - 01/08/24 18:00 EDT Findings: No acute fracture. No dislocation. No bone destruction or bone erosions. No significant degenerative changes. Significant atherosclerotic vascular disease. Significant soft tissue swelling of the dorsum of the foot. IMPRESSION: 1. No radiographic evidence of acute osseous findings. 2. Soft tissue swelling of the dorsum of the foot and atherosclerotic vascular disease. This document has been electronically signed by: Darcy Alexander MD on 10/12/2024 03:43:39
--- NOTE | ~2024-10-11 | CT_ITS ---
CLINICAL HISTORY: fall, ams CT cervical spine without contrast Comparison: CT/REG/SR - CT CERVICAL SPINE WO IV CON - 12/08/23 01:43 EDT Findings: Straightening of normal cervical lordosis. Grade 1 anterolisthesis of C2 on C3 on degenerative basis. Moderate multilevel spondylosis with disc space narrowing, endplate sclerosis, osteophytosis, and facet arthropathy. Partial bony fusion at C3-C4 and C4-C5 levels. Prominent posterior disc osteophyte complex causing moderate to severe spinal canal narrowing at C3-C4 and C5-C6 levels. No acute fractures or dislocations. Visualized intracranial contents are unremarkable. Soft tissues of the neck are normal. Lung apices are clear. IMPRESSION: No evidence of acute fracture or traumatic listhesis of the cervical spine. Grade 1 anterolisthesis of C2 on C3 on degenerative basis. Moderate multilevel spondylosis most notably at C3-C4 and and C5-C6 levels with large posterior disc osteophyte complex causing moderate to severe spinal canal narrowing. This document has been electronically signed by: Emerald Perea MD on 10/11/2024 20:48:31
--- NOTE | 2024-10-11 19:22 | ECG_ITS ---
Test Reason : FALL Blood Pressure : */* mmHG Vent. Rate : 88 BPM Atrial Rate : 38 BPM P-R Int : * ms QRS Dur : 178 ms QT Int : 466 ms P-R-T Axes : * -74 87 degrees QTcB Int : 563 ms Artifact in tracing Undetermined rhythm Intermittent ventricular pacing Abnormal ECG When compared with ECG of 17-Jan-2024 13:59, Current undetermined rhythm precludes rhythm comparison, needs review Referred By: Fabiola Benavidez Electronically Signed By: IKER SOTO
[2024-10-11 19:35] LABS: MANUAL DIFF FLAG NO
[2024-10-11 19:36] LABS: Basophils Percent Auto 0.3 % (0-2); Eosinophils Absolute Auto 0.1 X10*3/uL (0.0-0.4); Hematocrit 33.3 % (42.0-52.0); Hemoglobin 10.8 g/dl (14.0-18.0); Imm Gran Abs Auto 0.06 X10*3/uL (0.00-0.03); Imm Gran Pct Auto 0.9 % (0.0-0.4); Lymphocytes Absolute Auto 1.3 X10*3/uL (1.2-4.9); Lymphocytes Percent Auto 20.4 % (20-40); Mean Corpuscular HGB Conc 32.4 g/dl (31.0-36.0); Mean Corpuscular Hemoglobin 27.6 pg (27.0-33.0); Mean Corpuscular Volume 84.9 fL (80.0-98.0); Mean Platelet Volume 10.6 fL (9.4-12.4); Monocytes Absolute Auto 0.7 X10*3/uL (0.1-1.2); Monocytes Percent Auto 10.8 % (2-11); Neutrophils Absolute Auto 4.2 x10*3/uL (2.0-8.3); Neutrophils Percent Auto 65.6 % (45-73); Red Blood Count 3.92 X10*6/uL (4.60-5.80); Red Cell Distribution Width 19.9 % (11.0-16.0); White Blood Count 6.5 X10*3/uL (4.8-10.8)
[2024-10-11 19:44] LABS: Platelet Count 67 X10*3/uL (160-400)
[2024-10-11 19:49] VITALS: BP 149/91; PULSE 70; RESP 15; TEMP 33.9; O2SAT 97; BMI 30.1
[2024-10-11 19:51] LABS: INTERNATIONAL NORM RATIO 1.6 (0.9-1.1); Prothrombin Time 18.3 SEC (10.9-12.4)
[2024-10-11 19:59] LABS: Troponin-I High Sensitivity 17.1 ng/L (<3.5-35.0)
[2024-10-11 20:06] LABS: Alanine Aminotransferase 40 U/L (0-40); Albumin Level 3.5 g/dL (3.5-5.0); Alkaline Phosphatase 117 U/L (39-117); Anion Gap 12 (12-20); Aspartate Amino Transferase 51 U/L (5-37); Bilirubin Direct 0.2 mg/dL (0.0-0.5); Bilirubin Total 0.5 mg/dL (0.0-1.0); Blood Urea Nitrogen 27 mg/dL (9-16); Calcium 9.5 mg/dL (8.4-10.2); Carbon Dioxide 28 mmol/L (22-29); Chloride 108 mmol/L (96-108); Creatinine Clr Calc Pharmacy 64.8; Estimated Glomerular Filt Rate > 60; Ethanol < 10 mg/dL; Glucose Random 32 mg/dL (60-115); Magnesium 2.1 mg/dL (1.6-2.6); Potassium 3.5 mmol/L (3.3-5.1); Sodium 144 mmol/L (135-145); Total Protein 7.4 g/dL (6.5-8.0)
[2024-10-11] MEDS: Dextrose 50 % 25 GM/50 ML SYRINGE IVPUSH (20:09)
--- NOTE | 2024-10-11 20:11 | ED.GENADULT ---
HPI - General Adult General Chief complaint: Fall Stated complaint: altered mentalstat / fall Time Seen by Provider: 10/11/24 19:20 Source: EMS Mode of arrival: EMS Limitations: altered mental status History of Present Illness ED Provider: Dr. Fabiola Benavidez HPI narrative: Patient comes to the emergency room via ambulance. Seems that earlier today patient fell out of his electric chair while trying to transfer to a different chair. According to the paramedics, patient seemed to be more altered by the time that they reached the hospital. Patient not speaking clearly or answering questions appropriately. Related Data Home Medications ?Medication ?Instructions ?Recorded ?Confirmed insulin aspart U-100 100 unit/mL 1 sliding scale dose subcut 12/14/20 10/11/24 subcutaneous solution (Novolog USEASDIRECTD U-100 Insulin aspart) multivitamin 1 tab PO DAILY 12/14/20 10/11/24 atorvastatin 40 mg tablet 40 mg PO BEDTIME 06/13/21 10/11/24 budesonide-formoterol HFA 80 2 puff inhalation BID 01/31/23 10/11/24 mcg-4.5 mcg/actuation aerosol inhaler (Symbicort) vitamin B complex 1 tab PO DAILY 01/31/23 10/11/24 losartan 25 mg tablet 25 mg PO DAILY 02/09/23 10/11/24 cholecalciferol (vitamin D3) 125 125 mcg PO DAILY 05/30/23 10/11/24 mcg (5,000 unit) tablet (Vitamin D3) magnesium 250 mg tablet 250 mg PO DAILY 05/30/23 10/11/24 omega-3s 300 [id number] 1 cap PO DAILY 05/30/23 10/11/24 [id number] oil 1,000 mg capsule ([place]-3 Fish Oil) zinc 220 mg PO DAILY 05/30/23 10/11/24 ammonium lactate 12 % topical cream 1 appl topical BID 08/24/23 10/11/24 turmeric 400 mg capsule 400 mg PO DAILY 09/25/23 10/11/24 clotrimazole-betamethasone 1 1 appl topical BID PRN Itching 01/17/24 10/11/24 %-0.05 % topical cream cranberry fruit 400 mg capsule 400 mg PO DAILY 01/17/24 10/11/24 oxycodone 15 mg tablet 15 mg PO Q4H PRN Pain 01/17/24 10/11/24 pregabalin 150 mg capsule 150 mg PO QID 01/17/24 10/11/24 Previous Rx's ?Medication ?Instructions ?Recorded apixaban 5 mg tablet (Eliquis) 5 mg PO BID #60 tabs 02/09/23 isosorbide mononitrate 30 mg 30 mg PO DAILY #30 tabs 06/08/23 tablet,extended release 24 hr ascorbic acid (vitamin C) 1,000 mg 1 g PO DAILY 90 days #90 tabs 09/25/23 tablet methenamine hippurate 1 gram tablet 1 g PO DAILY 90 days #90 tabs 09/25/23 diaper,brief,adult,disposable #120 ea 09/28/23 torsemide 20 mg tablet 20 mg PO DAILY #30 tabs 10/27/23 dicyclomine 10 mg capsule 10 mg PO QIDACHS PRN Pain, Mild 01/21/24 (Pain Scale 1-3) #1 cap docusate sodium 100 mg capsule 100 mg PO BID #10 caps 01/21/24 insulin degludec 100 unit/mL (3 20 unit (0.2 mL) subcut DAILY #15 01/21/24 mL) subcutaneous pen (Tresiba mL FlexTouch U-100 insulin) polyethylene glycol 3350 17 gram 17 g PO DAILY #14 ea 01/21/24 oral powder packet Allergies Allergy/AdvReac Type Severity Reaction Status Date / Time No Known Allergies Allergy Mild N/A Verified 10/11/24 19:51 Review of Systems Review of Systems: Yes Unobtainable due to mental status FOR[facility]LY [facility] Past Medical History Medical History (Updated 10/11/24 @ 23:35 by Fabiola Benavidez MD) Persistent atrial fibrillation Acute on chronic diastolic (congestive) heart failure Urinary tract infection due to Pseudomonas aeruginosa Recurrent UTI History of prostate cancer Acute retention of urine COVID-19 vaccine series completed History of cardioversion Hx of Lyme disease Tubular adenoma of colon History of ST elevation myocardial infarction (STEMI) (HFpEF) heart failure with preserved ejection fraction Cardiac pacemaker in situ (~12/2020) Hepatorenal syndrome Symptomatic bradycardia Ventricular bigeminy Thrombocytopenia PVC (premature ventricular contraction) CHF exacerbation Bifascicular block Pancytopenia Prostate CA Myocardial infarct, old CAD (coronary artery disease) HLD (hyperlipidemia) Diabetes HTN (hypertension) Surgical History History of colonoscopy History of cervical spinal surgery History of radical prostatectomy History of left inguinal hernia repair History of total right knee replacement (TKR) History of lumbar discectomy History of cardiac pacemaker (~12/2020) Social History Social History Household Members: Spouse Household Members Other:: 1 Housing: House Are you a primary child care worker to a significant other at home: No Do you presently have visiting nurse or other home services: Yes Alcohol intake: current Alcohol intake frequency: does not drink Alcohol type: wine Comment: pt refused bed/chair alarm Patient Tobacco Use Status: Former Tobacco user Tobacco use type: Cigarette Years Smoked: 10 Second Hand Smoke Exposure: No Advance Directives: Yes Advance Directives on File: Yes Advance Directives Date on File: 01/04/23 service: No Current occupational status: retired Physical Exam ED Vital Signs: Vital Signs - 24 hr 10/11/24 19:49 10/11/24 21:58 Temperature 93.1 F L 93.4 F L Pulse Rate 70 70 Respiratory Rate 15 20 Blood Pressure 149/91 H 149/84 H Pulse Oximetry 97 98 Oxygen Delivery Method Room Air Room Air BMI result Body Mass Index 30.1 Const Other: Appearance: Alert. Very confused, not making sense, not speaking clearly Eyes: Pupils equal, round and reactive to light. ENT: Pharynx normal. Neck: Normal inspection. Neck supple. No lymph nodes noted. No crepitus CVS: Normal heart rate and rhythm. Pulses normal. Normal S1 and S2 Respiratory: No respiratory distress. Breath sounds normal. No Wheezing. No rales Abdomen: Soft and nontender. No rigidity. No distention. Skin: Skin warm and dry. Normal skin color. Normal skin turgor. Extremities: No lower extremity edema. No Lacerations. No Rash Neuro: Unable to participating cranial nerve assessment Psych: very confused Course Course Course Narrative: On arrival, patient was taken immediately to CT scan to rule out brain bleed. Patient had a fall, patient is on Eliquis All of patient's labs and imaging pending. Patient's glucose is 32. Patient receiving D50 push. We do not have the results of the CT scan yet. However, I went in with the patient for CT scan, does not seem to have any acute brain bleed. Difficult to assess since patient moved during the CT scan. I reviewed patient's medical records, patient has been previously admitted to the hospital for encephalopathy due to urinary tract infections. Patient is empirically being treated with IV fluids based on ideal weight of 62 kg. Patient is obese. Patient was also given ceftriaxone After patient received D50, blood glucose improved than patient's mentation improved. Medications Administered Discontinued Medications Generic Name Dose Route Start Last Admin Trade Name Shantell PRN Reason Stop Dose Admin Ceftriaxone Sodium 1 gm 10/11/24 20:08 10/11/24 20:42 Ceftriaxone Sodium 1 Gm Vial IVPUSH 10/11/24 20:09 1 gm ONCE ONE Administration Dextrose 25 gm 10/11/24 20:06 10/11/24 20:09 Dextrose 50 % 25 Gm/50 Ml Syringe IVPUSH 10/11/24 20:07 25 gm ONCE ONE Administration Sodium Chloride 2,000 mls @ 999 mls/hr 10/11/24 20:08 10/11/24 20:13 Ns IVCONT 10/11/24 22:08 999 mls/hr .Q2H1M ONE Administration Medical Decision Making Medical Decision Making [facility] Narrative: My interpretation of labs: Patient's white blood cell count 6.5, rest of hematology at baseline, chemistry does not show any acute abnormality other than a glucose of 32 which was already addressed, after D50 push patient's glucose 136 and patient feeling better. Patient's troponin 17.1, BNP 219, no signs of pulmonary edema. Urinalysis negative for UTI patient's urine toxicology positive for oxycodone which she gets prescribed. Negative for EtOH, serology negative for influenza a, influenza B RSV and COVID Chest x-ray shows mild bilateral pulmonary opacities which may represent pulmonary edema versus pneumonia. Patient has no coughing, no URI symptoms. Pneumo likely Head CT does not show any acute intracranial hemorrhage Cervical spine shows grade 1 anterolisthesis of C2 on C3, no new/acute fractures Earlier today, patient was complaining of pain in his toes. Especially the great toe on the right. Patient has some excoriations on the dorsum of the toe. However, this does not seem infected. I discussed the patient with Dr. Owens Patient being admitted Differential Diagnosis Differential Diagnoses: The differential diagnosis associated with the presentation includes (Hypoglycemia possible accident medication/insulin overdose, metabolic encephalopathy) Admission/Observation Consideration of admission/observation: Escalation of care including admission/observation considered Consult Healthcare Provider Management of the patient was discussed with: Hospitalist Lab Data MDM Lab Attestation statement: I reviewed the patient's lab results. 10/11/24 19:25 10/11/24 19:25 Labs: Lab Results 10/11/24 10/11/24 10/11/24 Range/Units 19:25 20:06 20:16 WBC 6.5 (4.8-10.8) X10*3/uL RBC 3.92 L (4.60-5.80) X10*6/uL Hgb 10.8 L (14.0-18.0) g/dl Hct 33.3 L (42.0-52.0) % MCV 84.9 (80.0-98.0) fL MCH 27.6 (27.0-33.0) pg MCHC 32.4 (31.0-36.0) g/dl RDW 19.9 H (11.0-16.0) % Plt Count 67 L D (160-400) X10*3/uL MPV 10.6 (9.4-12.4) fL Immature Gran % (Auto) 0.9 H (0.0-0.4) % Neut % (Auto) 65.6 (45-73) % Lymph % (Auto) 20.4 (20-40) % [place] % (Auto) 10.8 (2-11) % Eos % (Auto) 2.0 (0-4) % Baso % (Auto) 0.3 (0-2) % Lymph # (Auto) 1.3 (1.2-4.9) X10*3/uL [place] # (Auto) 0.7 (0.1-1.2) X10*3/uL Eos # (Auto) 0.1 (0.0-0.4) X10*3/uL Baso # (Auto) 0.0 (0.0-0.2) X10*3/uL Abs Immat Gran (auto) 0.06 H (0.00-0.03) X10*3/uL Absolute Neuts (auto) 4.2 (2.0-8.3) x10*3/uL Absolute Nucleated RBC 0.000 (0.0-0.012) X10*3/uL Nucleated RBC % (auto) 0.0 (0.0-0.2) /100WBC PT 18.3 H (10.9-12.4) SEC INR 1.6 H (0.9-1.1) Sodium 144 (135-145) mmol/L Potassium 3.5 (3.3-5.1) mmol/L Chloride 108 (96-108) mmol/L Carbon Dioxide 28 (22-29) mmol/L Anion Gap 12 (12-20) BUN 27 H (9-16) mg/dL Creatinine 0.93 (0.5-1.4) mg/dL Estim Creat Clear Calc 64.8 Estimated GFR > 60 POC Glucose (60-115) mg/dL Random Glucose 32 L* (60-115) mg/dL Calcium 9.5 D (8.4-10.2) mg/dL Magnesium 2.1 (1.6-2.6) mg/dL Total Bilirubin 0.5 (0.0-1.0) mg/dL Direct Bilirubin 0.2 (0.0-0.5) mg/dL AST 51 H (5-37) U/L ALT 40 (0-40) U/L Alkaline Phosphatase 117 (39-117) U/L Troponin I High Sens 17.1 (<3.5-35.0) ng/L B-Natriuretic Peptide 219 H (<100) pg/mL Total Protein 7.4 (6.5-8.0) g/dL Albumin 3.5 (3.5-5.0) g/dL Urine Color Yellow Urine Appearance Clear Urine pH >= 9.0 (5.0-9.0) Ur Specific [place] 1.020 (1.005-1.025) Urine Protein 30 (1+) H (Neg-Trace) mg/dL Urine Glucose (UA) Negative (Negative) mg/dL Urine Ketones Negative (Negative) mg/dL Urine Blood Moderate (2+) H (Negative) Urine Nitrite Negative (Negative) Ur Leukocyte Esterase Negative (Negative) Urine RBC 3-5 H (0-2) /HPF Urine WBC 0-5 (0-5) /HPF Ur Squamous Epith Cells 0-2 (0-2) /HPF Urine Bacteria None Seen (None Seen) Hyaline Casts 0-2 (0-2) /LPF Urine Opiates Screen POSITIVE H (Not Detect) Ur Buprenorphine Scrn Not Detected (Not Detect) ng/mL Ur Oxycodone Screen Positive H (Not Detect) ng/mL Urine Methadone Screen Not Detected (Not Detect) ng/mL Urine Fentanyl Screen Not Detected (Not Detect) Ur Barbiturates Screen Not Detected (Not Detect) Ur Phencyclidine Scrn Not Detected (Not Detect) Ur Amphetamines Screen Not Detected (Not Detect) U Benzodiazepines Scrn Not Detected (Not Detect) Urine Cocaine Screen Not Detected (Not Detect) U Marijuana (THC) Screen Not Detected (Not Detect) Ethyl Alcohol < 10 mg/dL Influenza Type A (PCR) NEGATIVE (Negative) Influenza Type B (PCR) NEGATIVE (Negative) RSV RNA Qual (PCR) NEGATIVE (Negative) SARS-CoV-2 RNA (RT-PCR) NEGATIVE (Negative) 10/11/24 Range/Units 20:34 WBC (4.8-10.8) X10*3/uL RBC (4.60-5.80) X10*6/uL Hgb (14.0-18.0) g/dl Hct (42.0-52.0) % MCV (80.0-98.0) fL MCH (27.0-33.0) pg MCHC (31.0-36.0) g/dl RDW (11.0-16.0) % Plt Count (160-400) X10*3/uL MPV (9.4-12.4) fL Immature Gran % (Auto) (0.0-0.4) % Neut % (Auto) (45-73) % Lymph % (Auto) (20-40) % [place] % (Auto) (2-11) % Eos % (Auto) (0-4) % Baso % (Auto) (0-2) % Lymph # (Auto) (1.2-4.9) X10*3/uL [place] # (Auto) (0.1-1.2) X10*3/uL Eos # (Auto) (0.0-0.4) X10*3/uL Baso # (Auto) (0.0-0.2) X10*3/uL Abs Immat Gran (auto) (0.00-0.03) X10*3/uL Absolute Neuts (auto) (2.0-8.3) x10*3/uL Absolute Nucleated RBC (0.0-0.012) X10*3/uL Nucleated RBC % (auto) (0.0-0.2) /100WBC PT (10.9-12.4) SEC INR (0.9-1.1) Sodium (135-145) mmol/L Potassium (3.3-5.1) mmol/L Chloride (96-108) mmol/L Carbon Dioxide (22-29) mmol/L Anion Gap (12-20) BUN (9-16) mg/dL Creatinine (0.5-1.4) mg/dL Estim Creat Clear Calc Estimated GFR POC Glucose 136 H (60-115) mg/dL Random Glucose (60-115) mg/dL Calcium (8.4-10.2) mg/dL Magnesium (1.6-2.6) mg/dL Total Bilirubin (0.0-1.0) mg/dL Direct Bilirubin (0.0-0.5) mg/dL AST (5-37) U/L ALT (0-40) U/L Alkaline Phosphatase (39-117) U/L Troponin I High Sens (<3.5-35.0) ng/L B-Natriuretic Peptide (<100) pg/mL Total Protein (6.5-8.0) g/dL Albumin (3.5-5.0) g/dL Urine Color Urine Appearance Urine pH (5.0-9.0) Ur Specific [place] (1.005-1.025) Urine Protein (Neg-Trace) mg/dL Urine Glucose (UA) (Negative) mg/dL Urine Ketones (Negative) mg/dL Urine Blood (Negative) Urine Nitrite (Negative) Ur Leukocyte Esterase (Negative) Urine RBC (0-2) /HPF Urine WBC (0-5) /HPF Ur Squamous Epith Cells (0-2) /HPF Urine Bacteria (None Seen) Hyaline Casts (0-2) /LPF Urine Opiates Screen (Not Detect) Ur Buprenorphine Scrn (Not Detect) ng/mL Ur Oxycodone Screen (Not Detect) ng/mL Urine Methadone Screen (Not Detect) ng/mL Urine Fentanyl Screen (Not Detect) Ur Barbiturates Screen (Not Detect) Ur Phencyclidine Scrn (Not Detect) Ur Amphetamines Screen (Not Detect) U Benzodiazepines Scrn (Not Detect) Urine Cocaine Screen (Not Detect) U Marijuana (THC) Screen (Not Detect) Ethyl Alcohol mg/dL Influenza Type A (PCR) (Negative) Influenza Type B (PCR) (Negative) RSV RNA Qual (PCR) (Negative) SARS-CoV-2 RNA (RT-PCR) (Negative) Independent Interpretation I performed an independent interpretation of an: CT Scan Radiology Impression Discussion of test interpretation with radiology: I have reviewed the radiologist's reading. Radiologist Impression: Heart size within normal limits. Atherosclerotic vascular disease of aortic arch. Stable left side dual lead ICD. Interstitial thickening and mild bilateral pulmonary opacities. No significant pleural effusion or pneumothorax. No acute fracture. Degenerative changes of the shoulders. No intra-axial mass, midline shift, hydrocephalus, or acute hemorrhage. Mild atrophy-like change or white matter disease. The visualized paranasal sinuses and mastoid air cells are normal. The orbits are unremarkable. No skull fracture Straightening of normal cervical lordosis. Grade 1 anterolisthesis of C2 on C3 on degenerative basis. Moderate multilevel spondylosis with disc space narrowing, endplate sclerosis, osteophytosis, and facet arthropathy. Partial bony fusion at C3-C4 and C4-C5 levels. Prominent posterior disc osteophyte complex causing moderate to severe spinal canal narrowing at C3-C4 and C5-C6 levels. No acute fractures or dislocations. Visualized intracranial contents are unremarkable. Soft tissues of the neck are normal. Lung apices are clear Independent Historian Clinical information obtained from an independent historian. History obtained from or confirmed by: EMS Critical Care Time Critical Care Time Critical Care Time: Yes Total Critical Care Time: 60 Attestation: I have personally provided critical care time. Time includes review of lab data, radiology results, discussion with consultants, and monitoring for potential decompensation. Intervention performed as documented. Discharge Plan Discharge Clinical Impression: Metabolic encephalopathy, Hypoglycemia Patient Disposition: Admitted As Inpatient Prescriptions: No Action isosorbide mononitrate 30 mg tablet extended release 24 hr 30 mg PO DAILY Qty: 30 6RF (DME) diaper,brief,adult,disposable Misc See Rx Instructions .ROUTE .MEDSUPPLY Qty: 120 4RF Rx Instructions: As directed - 4 per day torsemide 20 mg tablet 20 mg PO DAILY Qty: 30 5RF multivitamin Tablet 1 tab PO DAILY insulin aspart U-100 [Novolog U-100 Insulin aspart] 100 unit/mL Solution 1 sliding scale dose SUBCUT USEASDIRECTD [place]-3 Fish Oil 300-1,000 mg Capsule 1 cap PO DAILY magnesium 250 mg Tablet 250 mg PO DAILY cholecalciferol (vitamin D3) [Vitamin D3] 125 mcg (5,000 unit) Tablet 125 mcg PO DAILY zinc 220 mg PO DAILY oxycodone 15 mg tablet 15 mg PO Q4H PRN (Reason: Pain) clotrimazole-betamethasone 1-0.05 % cream 1 appl TOPICAL BID PRN (Reason: Itching) cranberry fruit 400 mg Capsule 400 mg PO DAILY Rx Instructions: administer with a meal pregabalin 150 mg capsule 150 mg PO QID dicyclomine 10 mg Capsule 10 mg PO QIDACHS PRN (Reason: Pain, Mild (Pain Scale 1-3)) Qty: 1 0RF docusate sodium 100 mg Capsule 100 mg PO BID Qty: 10 0RF polyethylene glycol 3350 17 gram Powder In Packet 17 g PO DAILY Qty: 14 0RF insulin degludec [Tresiba FlexTouch U-100] 100 unit/mL (3 mL) insulin pen 20 unit subcut DAILY Qty: 15 0RF vitamin B complex Tablet 1 tab PO DAILY budesonide-formoterol [Symbicort] 80-4.5 mcg/actuation HFA aerosol inhaler 2 puff inhalation BID ammonium lactate 12 % cream 1 appl topical BID atorvastatin 40 mg tablet 40 mg PO BEDTIME losartan 25 mg tablet 25 mg PO DAILY Eliquis 5 mg tablet 5 mg PO BID Qty: 60 0RF turmeric 400 mg capsule 400 mg PO DAILY methenamine hippurate 1 gram tablet 1 g PO DAILY 90 Days Qty: 90 1RF ascorbic acid (vitamin C) 1,000 mg tablet 1 g PO DAILY 90 Days Qty: 90 1RF Print Language: Georgian
[2024-10-11] MEDS: 0.9 % Sodium Chloride 2,000 ML 999 ML IVCONT (20:13)
[2024-10-11 20:17] LABS: Appearance Urine Clear; Color Urine Yellow; Glucose Urine UA Negative (Negative); Leukocyte Esterase Urine Negative (Negative); Nitrite Urine Negative (Negative); PH >= 9.0 (5.0-9.0); UMIC TRIGGER UACC YES; Urine Blood Moderate (2+) (Negative); Urine Ketones Negative (Negative); Urine Protein 30 (1+) mg/dL (Neg-Trace)
[2024-10-11 20:28] LABS: Amphetamine Screen Urine Not Detected (Not Detect); Barbiturates, Urine Not Detected (Not Detect); Benzodiazepines Screen Urine Not Detected (Not Detect); Buprenorphine Scr Not Detected (Not Detect); Cannabinoid Screen Urine Not Detected (Not Detect); Cocaine Screen Urine Not Detected (Not Detect); Fentanyl, urine Not Detected (Not Detect); Methadone Screen, Urine Not Detected (Not Detect); Opiate Screen Urine POSITIVE (Not Detect); Oxycodone Screen Urine Positive (Not Detect); Phencyclidine Screen Urine Not Detected (Not Detect)
[2024-10-11 20:35] LABS: Bacteria Urine None Seen (None Seen); Hyaline Casts Urine 0-2 /LPF (0-2); Squamous Epithelial Cell Urine 0-2 /HPF (0-2); WBC Urine 0-5 /HPF (0-5)
[2024-10-11] MEDS: cefTRIAXone sodium 1 GM VIAL IVPUSH (20:42)
[2024-10-11 20:50] LABS: Glucose, Whole Blood 136 mg/dL (60-115)
[2024-10-11 21:02] LABS: Influenza A PCR NEGATIVE (Negative); Influenza B PCR NEGATIVE (Negative); Resp Syncy Virus RNA Qual PCR NEGATIVE (Negative); SARS COV2 PCR INHOUSE NEGATIVE (Negative)
[2024-10-11 21:47] LABS: B Type Natriuretic Peptide 219 pg/mL (<100)
[2024-10-11 21:58] VITALS: BP 149/84; PULSE 70; RESP 20; TEMP 34.1; O2SAT 98
--- NOTE | 2024-10-11 23:08 | P.HPHOSP_ITS ---
History of Present Illness Date of Service: 10/11/24 <CARLOS Villalta Last Filed: 10/11/24 23:31> Attending physician on admission: Gerardo Owens <CARLOS Villalta Last Filed: 10/11/24 23:31> Chief Complaint: mechanical fall, hypoglycemia <CARLOS Villalta Last Filed: 10/11/24 23:31> Patient is an 89-year-old male with a past medical history significant for paroxysmal AFib s/p cardioversion on Eliquis, CHF, recurrent UTIs, prostate cancer, STEMI, HTN, insulin-dependent diabetes, CAD and pacemaker, who presented to the ED after a mechanical fall transferring from his electric wheelchair. Patient reports that his is home called EMS some us immediately after therefore he was not on the ground for a long period of time. Unknown if head strike however patient became altered. He was found to be hypoglycemic and he reports that he has not had anything to eat since breakfast because he was busy. He denies any headache, shortness of breath, chest pain, runny nose, congestion, abdominal pain, acute diarrhea, or urinary symptoms including frequency, urgency or dysuria. He does report an infection on his right foot with a severe right foot pain. Has chronic neuropathy but reports this is only ever been on the left foot. <CARLOS Villalta Last Filed: 10/11/24 23:31> Review of Systems 2 Constitutional: Constitutional: Denies body ache(s), Denies fatigue, Denies fever(s) and Denies headache(s) <CARLOS Villalta Last Filed: 10/11/24 23:31> Eyes: Eyes: Denies change in vision and Denies photophobia <CARLOS Villalta Last Filed: 10/11/24 23:31> ENT: Denies headache(s) <CARLOS Villalta Last Filed: 10/11/24 23:31> Cardiovascular: Cardiovascular: Denies chest pain, Denies rapid heart rate, Denies leg edema, Denies lightheadedness and Denies dyspnea <CARLOS Villalta Last Filed: 10/11/24 23:31> Respiratory: Respiratory: Denies chest congestion, Denies cough, Denies dyspnea and Denies wheezing <CARLOS Villalta Last Filed: 10/11/24 23:31> Gastrointestinal: Gastrointestinal: Reports diarrhea (chronic), Denies nausea and Denies vomiting <CALROS Villalta Last Filed: 10/11/24 23:31> Genitourinary: Genitourinary: Denies hematuria, Denies oliguria, Denies difficulty urinating, Denies dysuria and Denies urinary frequency <Gertrudis Cm PA-C - Last Filed: 10/11/24 23:31> Musculoskeletal: Musculoskeletal: Denies myalgias <CARLOS Villalta Last Filed: 10/11/24 23:31> Integumentary/Breasts: Comments: ?R foot infection <CARLOS Villalta Last Filed: 10/11/24 23:31> Neurologic: Reports confusion and Denies headache(s) <RAJENDRA Villalta Last Filed: 10/11/24 23:31> Psychiatric: Psychiatric: Reports confusion <CARLOS Villalta Last Filed: 10/11/24 23:31> Endocrine: Endocrine: Denies fatigue <CARLOS Villalta Last Filed: 10/11/24 23:31> Hematologic/Lymphatic: Hematologic/Lymphatic: Denies easy bleeding and Denies easy bruising <Gertrudis Cm PA-C - Last Filed: 10/11/24 23:31> Allergic/Immunologic: Allergic/Immunologic: Denies wheezing <CARLOS Villalta Last Filed: 10/11/24 23:31> [facility] Medical History: Medical History (Updated 10/11/24 @ 23:31 by Gertrudis Cm PA-C) Persistent atrial fibrillation Acute on chronic diastolic (congestive) heart failure Urinary tract infection due to Pseudomonas aeruginosa Recurrent UTI History of prostate cancer Acute retention of urine COVID-19 vaccine series completed History of cardioversion Hx of Lyme disease Tubular adenoma of colon History of ST elevation myocardial infarction (STEMI) (HFpEF) heart failure with preserved ejection fraction Cardiac pacemaker in situ (~12/2020) Hepatorenal syndrome Symptomatic bradycardia Ventricular bigeminy Thrombocytopenia PVC (premature ventricular contraction) CHF exacerbation Bifascicular block Pancytopenia Prostate CA Myocardial infarct, old CAD (coronary artery disease) HLD (hyperlipidemia) Diabetes HTN (hypertension) <CARLOS Villalta Last Filed: 10/11/24 23:31> Surgical History: Surgical History History of colonoscopy History of cervical spinal surgery History of radical prostatectomy History of left inguinal hernia repair History of total right knee replacement (TKR) History of lumbar discectomy History of cardiac pacemaker (~12/2020) <Gertrudis mC PA-C - Last Filed: 10/11/24 23:31> Social History: Social History Household Members: Spouse Household Members Other:: 1 Housing: House Are you a primary home care scheduler to a significant other at home: No Do you presently have visiting nurse or other home services: Yes Alcohol intake: current Alcohol intake frequency: does not drink Alcohol type: wine Comment: pt refused bed/chair alarm Patient Tobacco Use Status: Former Tobacco user Tobacco use type: Cigarette Years Smoked: 10 Second Hand Smoke Exposure: No Advance Directives: Yes Advance Directives on File: Yes Advance Directives Date on File: 01/04/23 service: No Current occupational status: retired <CARLOS Villalta Last Filed: 10/11/24 23:31> Meds Allergies/Adverse reactions: Allergies Allergy/AdvReac Type Severity Reaction Status Date / Time No Known Allergies Allergy Mild N/A Verified 10/11/24 19:51 <CARLOS Villalta Last Filed: 10/11/24 23:31> Home medications: Home Medications ?Medication ?Instructions ?Recorded ?Confirmed ?Last Taken ?Type insulin aspart U-100 100 unit/mL 1 sliding scale dose subcut 12/14/20 10/11/24 05/30/23 History subcutaneous solution (Novolog USEASDIRECTD U-100 Insulin aspart) multivitamin 1 tab PO DAILY 12/14/20 10/11/24 05/30/23 History atorvastatin 40 mg tablet 40 mg PO BEDTIME 06/13/21 10/11/24 05/29/23 History budesonide-formoterol HFA 80 2 puff inhalation BID 01/31/23 10/11/24 05/30/23 History mcg-4.5 mcg/actuation aerosol inhaler (Symbicort) vitamin B complex 1 tab PO DAILY 01/31/23 10/11/24 05/30/23 History losartan 25 mg tablet 25 mg PO DAILY 02/09/23 10/11/24 05/30/23 History cholecalciferol (vitamin D3) 125 125 mcg PO DAILY 05/30/23 10/11/24 05/30/23 History mcg (5,000 unit) tablet (Vitamin D3) magnesium 250 mg tablet 250 mg PO DAILY 05/30/23 10/11/24 05/30/23 History omega-3s 300 yk-pwf-dcq-other 1 cap PO DAILY 05/30/23 10/11/24 05/30/23 History vpnbo1s-icaz oil 1,000 mg capsule ([place]-3 Fish Oil) zinc 220 mg PO DAILY 05/30/23 10/11/24 05/30/23 History ammonium lactate 12 % topical cream 1 appl topical BID 08/24/23 10/11/24 Unknown History turmeric 400 mg capsule 400 mg PO DAILY 09/25/23 10/11/24 Unknown History clotrimazole-betamethasone 1 1 appl topical BID PRN Itching 01/17/24 10/11/24 Unknown History %-0.05 % topical cream cranberry fruit 400 mg capsule 400 mg PO DAILY 01/17/24 10/11/24 Unknown History oxycodone 15 mg tablet 15 mg PO Q4H PRN Pain 01/17/24 10/11/24 Unknown History pregabalin 150 mg capsule 150 mg PO QID 01/17/24 10/11/24 Unknown History <Gertrudis Cm PA-C - Last Filed: 10/11/24 23:31> Physical Exam 2 Vital Signs and Narrative: Vital Signs: Last Vital Signs Temp 93.4 F L 10/11/24 21:58 Pulse 70 10/11/24 21:58 Resp 20 10/11/24 21:58 BP 149/84 H 10/11/24 21:58 Pulse Ox 98 10/11/24 21:58 O2 Del Method Room Air 10/11/24 21:58 BMI result Body Mass Index 30.1 <Gertrudis Cm PA-C - Last Filed: 10/11/24 23:31> General: AOx3, no acute distress, agitated Resp: CTA bilaterally CVS: S1, S2, RRR GI: +BS, NT, no distention Skin: Warm, dry Neuro: Cranial nerves II-XII grossly intact bilaterally. Motor grossly intact bilaterally Extremities: No LE edema. no visible infection on R foot. Psych: Appropriate affect <Gertrudis Cm PA-C - Last Filed: 10/11/24 23:31> Const: General: confusion <Gertrudis Cm PA-C - Last Filed: 10/11/24 23:31> Orientation/consciousness: confusion <Gertrudisbreonna Cm PA-C - Last Filed: 10/11/24 23:31> Eyes: Direct Ophthalmoscopy: No photophobia <Gertrudis Cm PA-C - Last Filed: 10/11/24 23:31> Neuro: General: confusion <Gertrudis Cm PA-C - Last Filed: 10/11/24 23:31> Results Labs CBC and Chem 7: 10/11/24 19:25 10/11/24 19:25 <Gertrudisbreonna Cm PA-C - Last Filed: 10/11/24 23:31> Labs: Laboratory Results - last 24 hr 10/11/24 10/11/24 10/11/24 19:25 20:06 20:16 MCV 84.9 MCH 27.6 MCHC 32.4 RDW 19.9 H Plt Count 67 L D MPV 10.6 Immature Gran % (Auto) 0.9 H Neut % (Auto) 65.6 Lymph % (Auto) 20.4 Caroline % (Auto) 10.8 Eos % (Auto) 2.0 Baso % (Auto) 0.3 Lymph # (Auto) 1.3 Caroline # (Auto) 0.7 Eos # (Auto) 0.1 Baso # (Auto) 0.0 Abs Immat Gran (auto) 0.06 H Absolute Neuts (auto) 4.2 Absolute Nucleated RBC 0.000 Nucleated RBC % (auto) 0.0 PT 18.3 H INR 1.6 H Anion Gap 12 Estim Creat Clear Calc 64.8 Estimated GFR > 60 POC Glucose Random Glucose 32 L* Calcium 9.5 D Magnesium 2.1 Total Bilirubin 0.5 Direct Bilirubin 0.2 AST 51 H ALT 40 Alkaline Phosphatase 117 B-Natriuretic Peptide 219 H Total Protein 7.4 Albumin 3.5 Urine Color Yellow Urine Appearance Clear Urine pH >= 9.0 Ur Specific [place] 1.020 Urine Protein 30 (1+) H Urine Glucose (UA) Negative Urine Ketones Negative Urine Blood Moderate (2+) H Urine Nitrite Negative Ur Leukocyte Esterase Negative Urine RBC 3-5 H Urine WBC 0-5 Ur Squamous Epith Cells 0-2 Urine Bacteria None Seen Hyaline Casts 0-2 Urine Opiates Screen POSITIVE H Ur Buprenorphine Scrn Not Detected Ur Oxycodone Screen Positive H Urine Methadone Screen Not Detected Urine Fentanyl Screen Not Detected Ur Barbiturates Screen Not Detected Ur Phencyclidine Scrn Not Detected Ur Amphetamines Screen Not Detected U Benzodiazepines Scrn Not Detected Urine Cocaine Screen Not Detected U Marijuana (THC) Screen Not Detected Ethyl Alcohol < 10 Influenza Type A (PCR) NEGATIVE Influenza Type B (PCR) NEGATIVE RSV RNA Qual (PCR) NEGATIVE SARS-CoV-2 RNA (RT-PCR) NEGATIVE 10/11/24 20:34 MCV MCH MCHC RDW Plt Count MPV Immature Gran % (Auto) Neut % (Auto) Lymph % (Auto) Caroline % (Auto) Eos % (Auto) Baso % (Auto) Lymph # (Auto) Caroline # (Auto) Eos # (Auto) Baso # (Auto) Abs Immat Gran (auto) Absolute Neuts (auto) Absolute Nucleated RBC Nucleated RBC % (auto) PT INR Anion Gap Estim Creat Clear Calc Estimated GFR POC Glucose 136 H Random Glucose Calcium Magnesium Total Bilirubin Direct Bilirubin AST ALT Alkaline Phosphatase B-Natriuretic Peptide Total Protein Albumin Urine Color Urine Appearance Urine pH Ur Specific [place] Urine Protein Urine Glucose (UA) Urine Ketones Urine Blood Urine Nitrite Ur Leukocyte Esterase Urine RBC Urine WBC Ur Squamous Epith Cells Urine Bacteria Hyaline Casts Urine Opiates Screen Ur Buprenorphine Scrn Ur Oxycodone Screen Urine Methadone Screen Urine Fentanyl Screen Ur Barbiturates Screen Ur Phencyclidine Scrn Ur Amphetamines Screen U Benzodiazepines Scrn Urine Cocaine Screen U Marijuana (THC) Screen Ethyl Alcohol Influenza Type A (PCR) Influenza Type B (PCR) RSV RNA Qual (PCR) SARS-CoV-2 RNA (RT-PCR) <Gertrudis Cm PA-C - Last Filed: 10/11/24 23:31> Assessment and Plan (1) Acute metabolic encephalopathy due to hypoglycemia: Status: Acute <CARLOS Villalta Last Filed: 10/11/24 23:31> (2) Hypothermia: Status: Acute <Gertrudis Cm PA-C - Last Filed: 10/11/24 23:31> (3) Thrombocytopenia: Status: Acute <CARLOS Villalta Filed: 10/11/24 23:31> Patient is an 89-year-old male with a past medical history significant for paroxysmal AFib s/p cardioversion on Eliquis, CHF, recurrent UTIs, prostate cancer, STEMI, HTN, insulin-dependent diabetes, CAD and pacemaker, who presented to the ED after a mechanical fall transferring from his electric wheelchair. Acute metabolic encephalopathy due to hypoglycemia - no obvious infectious source, WBC normal, hypothemic, blood cultures x2 pending - pt with previous admissions for similar presentation with hypoglycemia due to poor PO intake and continued insulin - head CT and c-spine negative - CXR pending - UA negative - BNP normal - COVID/flu/RSV negative - no obvious infection on R foot as pt reported, check xray for deep infection - check tick panel - mentation improved with D50 - pt has not had anything PO since breakfast, continued to take insulin - hold basal insulin - continue sliding scale insulin - pt given ceftriaxone in ED for presumed UTI, however UA negative and no obvious infectious source so will hold off on further abx at this time - monitor POC Q2H thrombocytopenia - previous thrombocytopenia with anaplasmosis - tick panel ordered - follow CBC hypothermia - check AM cortisol paroxysmal a fib. s/p ablation - EKG with RBBB, no afib - hold anticoagulant due to thrombocytopenia CHF, no acute exacerbation - continue home meds HTN - continue home meds IDDM - hold basal insulin - sliding scale full code VTE prophy: pneumoboots, anticoagulant contraindicated due to thrombocytopenia Pt with acute metabolic encephalopathy with hypoglycemia and hypothermia with concern for infectious etiology requiring admission for further workup and monitoring for at least 2 midnights stay. <Gertrudis Cm PA-C - Last Filed: 10/11/24 23:31> Patient is an 89-year-old male with a past medical history significant for paroxysmal AFib s/p cardioversion on Eliquis, CHF, recurrent UTIs, prostate cancer, STEMI, HTN, insulin-dependent diabetes, CAD and pacemaker, who presented to the ED after a mechanical fall transferring from his electric wheelchair. Acute metabolic encephalopathy due to hypoglycemia - no obvious infectious source, WBC normal, hypothemic, blood cultures x2 pending - pt with previous admissions for similar presentation with hypoglycemia due to poor PO intake and continued insulin - head CT and c-spine negative - CXR pending - UA negative - BNP normal - COVID/flu/RSV negative - no obvious infection on R foot as pt reported, check xray for deep infection - check tick panel - mentation improved with D50 - pt has not had anything PO since breakfast, continued to take insulin - hold basal insulin - continue sliding scale insulin - pt given ceftriaxone in ED for presumed UTI, however UA negative and no obvious infectious source so will hold off on further abx at this time - monitor POC Q2H thrombocytopenia - previous thrombocytopenia with anaplasmosis - tick panel ordered - follow CBC hypothermia - check AM cortisol paroxysmal a fib. s/p ablation - EKG with RBBB, no afib CHF, no acute exacerbation - continue home meds HTN - continue home meds IDDM - hold basal insulin - sliding scale full code VTE prophy: pneumoboots, anticoagulant contraindicated due to thrombocytopenia Pt with acute metabolic encephalopathy with hypoglycemia and hypothermia with concern for infectious etiology requiring admission for further workup and monitoring for at least 2 midnights stay. <Gerardo Owens MD - Last Filed: 10/11/24 23:32> Quality Stroke Does the patient have a stroke diagnosis?: No <Gertrudis Cm PA-C - Last Filed: 10/11/24 23:31> VTE Prior VTE?: No <Gertrudis Cm PA-C - Last Filed: 10/11/24 23:31> VTE Risk Level:: Medical - moderate - high <Gertrudis Cm PA-C - Last Filed: 10/11/24 23:31> VTE Device Contraindication: N/A - Device Ordered <Gertrudis Cm PA-C - Last Filed: 10/11/24 23:31> VTE Drug Contraindication: Treatment Not Indicated <Gertrudis Cm PA-C - Last Filed: 10/11/24 23:31>
[2024-10-12 00:19] VITALS: BP 102/57; PULSE 69; RESP 16; TEMP 35.6; O2SAT 97
[2024-10-12 01:02] LABS: Lactic Acid 0.6 mmol/L (0.5-2.0)
[2024-10-12] MEDS: 0.9 % Sodium Chloride Flush 3 ML SYRINGE IVFLUSH ×4 (01:03→21:34)
[2024-10-12] MEDS: Morphine Sulfate 2 MG/ML CARTRIDGE IVPUSH (01:03)
[2024-10-12 04:39] VITALS: BP 133/78; PULSE 70; RESP 12; TEMP 36.4; O2SAT 97
[2024-10-12 05:11] LABS: MANUAL DIFF FLAG NO
[2024-10-12 05:12] LABS: Basophils Percent Auto 0.5 % (0-2); Eosinophils Percent Auto 0.9 % (0-4); Hematocrit 29.4 % (42.0-52.0); Hemoglobin 9.5 g/dl (14.0-18.0); Imm Gran Abs Auto 0.02 X10*3/uL (0.00-0.03); Imm Gran Pct Auto 0.5 % (0.0-0.4); Lymphocytes Absolute Auto 0.9 X10*3/uL (1.2-4.9); Lymphocytes Percent Auto 19.8 % (20-40); Mean Corpuscular HGB Conc 32.3 g/dl (31.0-36.0); Mean Corpuscular Hemoglobin 27.5 pg (27.0-33.0); Mean Platelet Volume 10.6 fL (9.4-12.4); Monocytes Absolute Auto 0.4 X10*3/uL (0.1-1.2); Monocytes Percent Auto 8.9 % (2-11); Neutrophils Absolute Auto 3.1 x10*3/uL (2.0-8.3); Neutrophils Percent Auto 69.4 % (45-73); Red Blood Count 3.46 X10*6/uL (4.60-5.80); Red Cell Distribution Width 19.9 % (11.0-16.0); White Blood Count 4.4 X10*3/uL (4.8-10.8)
[2024-10-12 05:15] LABS: Platelet Count 60 X10*3/uL (160-400)
[2024-10-12 05:38] LABS: Anion Gap 10 (12-20); Blood Urea Nitrogen 25 mg/dL (9-16); Calcium 8.7 mg/dL (8.4-10.2); Carbon Dioxide 23 mmol/L (22-29); Chloride 112 mmol/L (96-108); Creatinine Clr Calc Pharmacy 64.8; Estimated Glomerular Filt Rate > 60; Glucose Random 124 mg/dL (60-115); Potassium 4.3 mmol/L (3.3-5.1); Sodium 141 mmol/L (135-145)
[2024-10-12 05:38] LABS: Glucose, Whole Blood 111 mg/dL (60-115)
[2024-10-12 05:53] LABS: Cortisol Random 9.9 ug/dL
--- NOTE | 2024-10-12 06:27 | PC.NURSE ---
Pt presented by ambulance after having a fall at home, concern for a bleed d/t pt became altered and not answering questions and grunting, no vitals given to the RN by EMS. Pt labs drawn and brought to CT stat, Rectal temp 93.1, placed on donnie valencia MD, notified and at bedside again to assess patient. Glucose came back and poc was 32. D50 administered per orders, Pt becoming more arousable, alert and oriented X4, speaking in full sentences without difficulty c/o bilateral foot and toe pain. Pt bc X2 and lactic drawn, IV fluids and abx administered. Throughout the night pt Rectal temp improved and pt taken off donnie valencia, rectal temp 97.6 at 0430. Pt has skin tear to L-arm wounds to toes and healing wound and redness to coccyx. notified of pain and ordered for morphine IV; administered. Pt placed in hospital bed, alarm on, pt resting in bed, eyes closed, easily arousable to name, RR even and unlabored, plan of care ongoing.
[2024-10-12] MEDS: Pregabalin 150 MG CAPSULE PO ×4 (08:36→21:31)
[2024-10-12] MEDS: oxyCODONE HCl Immed Release 15 MG TABLET PO ×2 (08:36→21:36)
--- NOTE | 2024-10-12 10:00 | PHA.MEDREC ---
Addendum entered by Nelli Rodriguez RPh 10/12/24 11:03: Reviewed by [facility] Original Note: Pharmacy Consult ? Medication Reconciliation Pharmacy has completed the medication reconciliation. Spoke with patient and used claim history to confirm medications. He reports 48 units of tresiba at bedtime and 8 units of Novolog tidwm. Patient reports taking a laxative with docusate daily but unable to remember the name. He reports using an inhaler daily but doesnt know the name, [facility] reports no inhaler filled within the past year, also called , she cannot find it at home. Patient reports he stopped taking metoprolol and [facility] reports he has not picked up recent rx. Patient was unsure if he was taking isosorbide, last filled x90 DS in May 2024, [facility] reports rx was canceled. Leaving off of med list. Patient reports he last took his medications yesterday afternoon.
--- NOTE | 2024-10-12 10:47 | P.PNIM_ITS ---
Subjective Subjective Date of Service: 10/12/24 Interval History: seen and evaluated this morning feels more alert and interactive no recurrence of low sugar no other events Review of Systems Review of Systems: Yes all other systems are reviewed and are negative Physical Exam 2 Vital Signs: Vital Signs: Last Vital Signs Temp 97.6 F 10/12/24 04:39 Pulse 70 10/12/24 04:39 Resp 12 10/12/24 04:39 BP 133/78 10/12/24 04:39 Pulse Ox 97 10/12/24 04:39 O2 Del Method Room Air 10/12/24 04:39 BMI result Body Mass Index 30.1 Const: Other: Constitutional : interactive, not in distress Cardiovascular : no JVP, no lower extremity edema Respiratory : bilateral chest movement, not in resp distress Gastrointestinal: soft, lax, Non tender Skin : Warm, Dry, forehead squamous cell cancer , multiple bruises Neurological : Alert & oriented , No focal deficit Objective Data Active Medications Acetaminophen (Acetaminophen 325 Mg Tablet) 650 mg PO Q6H PRN PRN Reason: Pain, Mild 1-3,fever,headache Calcium Carbonate (Calcium Carbonate 750 Mg Tab.Chew) 750 mg PO Q4H PRN PRN Reason: Heartburn Dextrose (Dextrose 50 % 25 Gm/50 Ml Syringe) 25 gm IVPUSH Q15M PRN; Protocol PRN Reason: per Hypoglycemia Standing Ord. Glucose (Glucose Gel 15 Gm Gel..Gram.) 15 gm PO Q15M PRN; Protocol PRN Reason: per Hypoglycemia Standing Ord. Magnesium Hydroxide (Milk Of Magnesia 30 Ml Oral.Susp) 30 ml PO DAILY PRN PRN Reason: Constipation Melatonin (Melatonin 3 Mg Tablet) 6 mg PO BEDTIME PRN PRN Reason: Insomnia Ondansetron HCl (Ondansetron Hcl 4 Mg/2 Ml Vial) 4 mg IVPUSH Q8H PRN PRN Reason: Nausea and Vomiting Oxycodone HCl (Oxycodone Hcl Immed Release 15 Mg Tablet) 15 mg PO Q6H PRN PRN Reason: Pain, Severe (Pain Scale 7-10) Last Admin: 10/12/24 08:36 Dose: 15 mg Documented By: JERAMIE Pregabalin (Pregabalin 150 Mg Capsule) 150 mg PO QID [facility] Last Admin: 10/12/24 08:36 Dose: 150 mg Documented By: JERAMIE Sodium Chloride (0.9 % Sodium Chloride Flush 3 Ml Sy[facility]) [facility] Last Admin: 10/12/24 08:36 Dose: 3 ml Documented By: JERAMIE Labs 10/12/24 04:54 10/12/24 04:54 Labs: Laboratory Results - last 24 hr 10/11/24 10/11/24 10/11/24 19:25 20:06 20:16 MCV 84.9 MCH 27.6 MCHC 32.4 RDW 19.9 H Plt Count 67 L D MPV 10.6 Immature Gran % (Auto) 0.9 H Neut % (Auto) 65.6 Lymph % (Auto) 20.4 [place] % (Auto) 10.8 Eos % (Auto) 2.0 Baso % (Auto) 0.3 Lymph # (Auto) 1.3 [place] # (Auto) 0.7 Eos # (Auto) 0.1 Baso # (Auto) 0.0 Abs Immat Gran (auto) 0.06 H Absolute Neuts (auto) 4.2 Absolute Nucleated RBC 0.000 Nucleated RBC % (auto) 0.0 PT 18.3 H INR 1.6 H Anion Gap 12 Estim Creat Clear Calc 64.8 Estimated GFR > 60 POC Glucose Random Glucose 32 L* Lactic Acid Calcium 9.5 D Magnesium 2.1 Total Bilirubin 0.5 Direct Bilirubin 0.2 AST 51 H ALT 40 Alkaline Phosphatase 117 B-Natriuretic Peptide 219 H Total Protein 7.4 Albumin 3.5 Random Cortisol Urine Color Yellow Urine Appearance Clear Urine pH >= 9.0 Ur Specific [place] 1.020 Urine Protein 30 (1+) H Urine Glucose (UA) Negative Urine Ketones Negative Urine Blood Moderate (2+) H Urine Nitrite Negative Ur Leukocyte Esterase Negative Urine RBC 3-5 H Urine WBC 0-5 Ur Squamous Epith Cells 0-2 Urine Bacteria None Seen Hyaline Casts 0-2 Urine Opiates Screen POSITIVE H Ur Buprenorphine Scrn Not Detected Ur Oxycodone Screen Positive H Urine Methadone Screen Not Detected Urine Fentanyl Screen Not Detected Ur Barbiturates Screen Not Detected Ur Phencyclidine Scrn Not Detected Ur Amphetamines Screen Not Detected U Benzodiazepines Scrn Not Detected Urine Cocaine Screen Not Detected U Marijuana (THC) Screen Not Detected Ethyl Alcohol < 10 Influenza Type A (PCR) NEGATIVE Influenza Type B (PCR) NEGATIVE RSV RNA Qual (PCR) NEGATIVE SARS-CoV-2 RNA (RT-PCR) NEGATIVE 10/11/24 10/12/24 10/12/24 20:34 00:40 04:54 MCV 85.0 MCH 27.5 MCHC 32.3 RDW 19.9 H Plt Count 60 L MPV 10.6 Immature Gran % (Auto) 0.5 H Neut % (Auto) 69.4 Lymph % (Auto) 19.8 L [place] % (Auto) 8.9 Eos % (Auto) 0.9 Baso % (Auto) 0.5 Lymph # (Auto) 0.9 L [place] # (Auto) 0.4 Eos # (Auto) 0.0 Baso # (Auto) 0.0 Abs Immat Gran (auto) 0.02 Absolute Neuts (auto) 3.1 Absolute Nucleated RBC 0.000 Nucleated RBC % (auto) 0.0 PT INR Anion Gap 10 L Estim Creat Clear Calc 64.8 Estimated GFR > 60 POC Glucose 136 H Random Glucose 124 H Lactic Acid 0.6 Calcium 8.7 D Magnesium Total Bilirubin Direct Bilirubin AST ALT Alkaline Phosphatase B-Natriuretic Peptide Total Protein Albumin Random Cortisol 9.9 Urine Color Urine Appearance Urine pH Ur Specific [place] Urine Protein Urine Glucose (UA) Urine Ketones Urine Blood Urine Nitrite Ur Leukocyte Esterase Urine RBC Urine WBC Ur Squamous Epith Cells Urine Bacteria Hyaline Casts Urine Opiates Screen Ur Buprenorphine Scrn Ur Oxycodone Screen Urine Methadone Screen Urine Fentanyl Screen Ur Barbiturates Screen Ur Phencyclidine Scrn Ur Amphetamines Screen U Benzodiazepines Scrn Urine Cocaine Screen U Marijuana (THC) Screen Ethyl Alcohol Influenza Type A (PCR) Influenza Type B (PCR) RSV RNA Qual (PCR) SARS-CoV-2 RNA (RT-PCR) 10/12/24 05:35 MCV MCH MCHC RDW Plt Count MPV Immature Gran % (Auto) Neut % (Auto) Lymph % (Auto) [place] % (Auto) Eos % (Auto) Baso % (Auto) Lymph # (Auto) [place] # (Auto) Eos # (Auto) Baso # (Auto) Abs Immat Gran (auto) Absolute Neuts (auto) Absolute Nucleated RBC Nucleated RBC % (auto) PT INR Anion Gap Estim Creat Clear Calc Estimated GFR POC Glucose 111 Random Glucose Lactic Acid Calcium Magnesium Total Bilirubin Direct Bilirubin AST ALT Alkaline Phosphatase B-Natriuretic Peptide Total Protein Albumin Random Cortisol Urine Color Urine Appearance Urine pH Ur Specific [place] Urine Protein Urine Glucose (UA) Urine Ketones Urine Blood Urine Nitrite Ur Leukocyte Esterase Urine RBC Urine WBC Ur Squamous Epith Cells Urine Bacteria Hyaline Casts Urine Opiates Screen Ur Buprenorphine Scrn Ur Oxycodone Screen Urine Methadone Screen Urine Fentanyl Screen Ur Barbiturates Screen Ur Phencyclidine Scrn Ur Amphetamines Screen U Benzodiazepines Scrn Urine Cocaine Screen U Marijuana (THC) Screen Ethyl Alcohol Influenza Type A (PCR) Influenza Type B (PCR) RSV RNA Qual (PCR) SARS-CoV-2 RNA (RT-PCR) Assessment and Plan (1) Hypoglycemia: Status: Acute (2) Thrombocytopenia: Status: Acute (3) Hypothermia: Status: Acute (4) Acute metabolic encephalopathy due to hypoglycemia: Status: Acute Plan Patient is an 89-year-old male with a past medical history significant for paroxysmal AFib s/p cardioversion on Eliquis, CHF, recurrent UTIs, prostate cancer, STEMI, HTN, insulin-dependent diabetes, CAD and pacemaker, who presented to the ED after a mechanical fall transferring from his electric wheelchair. Acute metabolic encephalopathy due to hypoglycemia in diabetic 2 patient Sugar improved head CT and c-spine negative CXR, UA negative, COVID/flu/RSV negative check tick panel He was on Tresiba inj at home ? hold basal insulin sliding scale insulin monitor blood sugar thrombocytopenia previous thrombocytopenia with anaplasmosis tick panel ordered Hold Eliquis follow CBC hypothermia normal AM cortisol paroxysmal a fib. s/p ablation EKG with RBBB, no afib CHF, no acute exacerbation continue home meds HTN continue home meds IDDM hold basal insulin sliding scale full code VTE prophy: pneumoboots, anticoagulant contraindicated due to thrombocytopenia Pt with acute metabolic encephalopathy with hypoglycemia and hypothermia with concern for infectious etiology requiring admission for further workup and monitoring for overnight Quality Stroke Does the patient have a stroke diagnosis?: No VTE Prior VTE?: No VTE Risk Level:: Medical - moderate - high VTE Device Contraindication: N/A - Device Ordered VTE Drug Contraindication: Treatment Not Indicated
[2024-10-12 11:10] LABS: Estimated Average Glucose 169 mg/dL; Hemoglobin A1c % 7.5 % (<6.0); Total Hemoglobin (HGBA1C) 2515.1773 umol/L
[2024-10-12 11:38] VITALS: BP 117/65; PULSE 70; RESP 16; TEMP 36.5; O2SAT 95
[2024-10-12 11:40] LABS: Glucose, Whole Blood 110 mg/dL (60-115)
--- NOTE | 2024-10-12 12:53 | MHC.CM.PN ---
Addendum entered by Rita Gillette 10/12/24 13:26: [facility] has confirmed that Patient is active with them. Original Note: CM met with Patient at bedside, in the ED, and addressed JEAN-BAPTISTE with him (original was given to Patient and a copy will be placed on the chart). Patient lives in a house with his /HCP/Mckenzie and he uses an electric w/c and a walker to assist with mobility. [facility] and has [facility] (he and Mckenzie believe it is through [facility]. Home/resume said services is the goal and CM has initiated and will follow for dc planning. PCP is Dr. Jewel Rebolledo and will transport at dc.
--- NOTE | 2024-10-12 14:02 | MHC.EDTECH ---
pt was found incontinent of urine, zak care was done, male purewick placed, warm blankets and call pal given
[2024-10-12 14:04] VITALS: BP 132/65; PULSE 69; RESP 18; TEMP 36.8; O2SAT 98
[2024-10-12 16:00] VITALS: BP 134/81; PULSE 67; RESP 18; TEMP 36.4; O2SAT 96
[2024-10-12 16:30] VITALS: BMI 26.2
[2024-10-12 16:36] LABS: Glucose, Whole Blood 199 mg/dL (60-115)
--- NOTE | 2024-10-12 19:09 | PC.NURSE ---
Patient arrived to the unit at 1626 in the bed from ED. Patient alert to self and place, confused to situation. Patient on RA sats above 95%, lungs clear. pitting edema to bilateral foot, diabetic ulcer to R foot/toe, per patient has been seen in wound clinic. Patient also has old healed wound to coccyx and redness to buttocks, left forehead small wound, healed. VSS, male purewick draining yellow urine. Patient c/o bilateral leg pain stating takes lyrica at home to help with pain.
[2024-10-12 20:49] LABS: Glucose, Whole Blood 166 mg/dL (60-115)
[2024-10-12] MEDS: Atorvastatin Calcium 40 MG TABLET PO (21:31)
[2024-10-12 23:41] VITALS: BP 127/63; PULSE 72; RESP 18; TEMP 36.8; O2SAT 96
[2024-10-13] MEDS: oxyCODONE HCl Immed Release 15 MG TABLET PO ×2 (03:53→10:41)
[2024-10-13 05:57] LABS: MANUAL DIFF FLAG NO
[2024-10-13 06:00] LABS: Basophils Percent Auto 0.7 % (0-2); Eosinophils Absolute Auto 0.2 X10*3/uL (0.0-0.4); Eosinophils Percent Auto 4.5 % (0-4); Hematocrit 29.5 % (42.0-52.0); Hemoglobin 9.7 g/dl (14.0-18.0); Imm Gran Abs Auto 0.02 X10*3/uL (0.00-0.03); Imm Gran Pct Auto 0.5 % (0.0-0.4); Lymphocytes Absolute Auto 1.3 X10*3/uL (1.2-4.9); Mean Corpuscular HGB Conc 32.9 g/dl (31.0-36.0); Mean Corpuscular Hemoglobin 28.2 pg (27.0-33.0); Mean Corpuscular Volume 85.8 fL (80.0-98.0); Mean Platelet Volume 10.1 fL (9.4-12.4); Monocytes Absolute Auto 0.5 X10*3/uL (0.1-1.2); Monocytes Percent Auto 11.7 % (2-11); Neutrophils Absolute Auto 2.3 x10*3/uL (2.0-8.3); Neutrophils Percent Auto 52.6 % (45-73); Red Blood Count 3.44 X10*6/uL (4.60-5.80); Red Cell Distribution Width 20.1 % (11.0-16.0); White Blood Count 4.4 X10*3/uL (4.8-10.8)
[2024-10-13 06:04] LABS: Platelet Count 57 X10*3/uL (160-400)
[2024-10-13 06:30] LABS: Anion Gap 10 (12-20); Blood Urea Nitrogen 22 mg/dL (9-16); Calcium 8.9 mg/dL (8.4-10.2); Carbon Dioxide 27 mmol/L (22-29); Chloride 111 mmol/L (96-108); Creatinine Clr Calc Pharmacy 59.7; Estimated Glomerular Filt Rate > 60; Glucose Random 56 mg/dL (60-115); Potassium 4.5 mmol/L (3.3-5.1); Sodium 143 mmol/L (135-145)
[2024-10-13] MEDS: Dextrose 50 % 25 GM/50 ML SYRINGE IVPUSH (06:33)
[2024-10-13 07:17] VITALS: BP 127/66; PULSE 72; RESP 18; TEMP 36.6; O2SAT 98
[2024-10-13 07:31] LABS: Glucose, Whole Blood 118 mg/dL (60-115)
[2024-10-13] MEDS: 0.9 % Sodium Chloride Flush 3 ML SYRINGE IVFLUSH ×3 (09:46→20:53)
[2024-10-13] MEDS: Pregabalin 150 MG CAPSULE PO ×4 (09:47→20:51)
[2024-10-13] MEDS: Docusate Sodium 100 MG CAPSULE PO (09:47)
[2024-10-13] MEDS: Cholecalciferol (Vitamin D3) 25 MCG TABLET 125 MCG PO (09:47)
[2024-10-13] MEDS: Cyanocobalamin (Vitamin B-12) 1,000 MCG TABLET 1000 MCG PO (09:47)
[2024-10-13] MEDS: Torsemide 20 MG TABLET PO (09:47)
[2024-10-13] MEDS: Multivitamin TABLET 1 TAB PO (09:47)
--- NOTE | 2024-10-13 11:28 | P.PNIM_ITS ---
Subjective Subjective Date of Service: 10/13/24 Interval History: seen and evaluated this morning feels more alert and interactive Low Glu of 56 this morning no other events Review of Systems Review of Systems: Yes all other systems are reviewed and are negative Physical Exam 2 Vital Signs: Vital Signs: Last Vital Signs Temp 97.8 F 10/13/24 07:17 Pulse 72 10/13/24 07:17 Resp 18 10/13/24 07:17 BP 127/66 10/13/24 07:17 Pulse Ox 98 10/13/24 07:17 O2 Del Method Room Air 10/13/24 07:17 BMI result Body Mass Index 26.2 Const: Other: Constitutional : interactive, not in distress Cardiovascular : no JVP, no lower extremity edema Respiratory : bilateral chest movement, not in resp distress Gastrointestinal: soft, lax, Non tender Skin : Warm, Dry, forehead squamous cell cancer , multiple bruises Neurological : Alert & oriented , No focal deficit Objective Data Active Medications Acetaminophen (Acetaminophen 325 Mg Tablet) 650 mg PO Q6H PRN PRN Reason: Pain, Mild 1-3,fever,headache Atorvastatin Calcium (Atorvastatin Calcium 40 Mg Tablet) 40 mg PO BEDTIME [facility] Last Admin: 10/12/24 21:31 Dose: 40 mg Documented By: VELMA Calcium Carbonate (Calcium Carbonate 750 Mg Tab.Chew) 750 mg PO Q4H PRN PRN Reason: Heartburn Cyanocobalamin (Cyanocobalamin (Vitamin B-12) 1,000 Mcg Tablet) 1,000 mcg PO DAILY [facility] Last Admin: 10/13/24 09:47 Dose: 1,000 mcg Documented By: NIRMALA Dextrose (Dextrose 50 % 25 Gm/50 Ml Syringe) 25 gm IVPUSH Q15M PRN; Protocol PRN Reason: per Hypoglycemia Standing Ord. Last Admin: 10/13/24 06:33 Dose: 25 gm Documented By: VELMA Docusate Sodium (Docusate Sodium 100 Mg Capsule) 100 mg PO DAILY [facility] Last Admin: 10/13/24 09:47 Dose: 100 mg Documented By: NIRMALA Glucose (Glucose Gel 15 Gm Gel..Gram.) 15 gm PO Q15M PRN; Protocol PRN Reason: per Hypoglycemia Standing Ord. Magnesium Hydroxide (Milk Of Magnesia 30 Ml Oral.Susp) 30 ml PO DAILY PRN PRN Reason: Constipation Melatonin (Melatonin 3 Mg Tablet) 6 mg PO BEDTIME PRN PRN Reason: Insomnia Multivitamins/Vitamin C (Multivitamin Tablet) 1 tab PO DAILY [facility] Last Admin: 10/13/24 09:47 Dose: 1 tab Documented By: NIRMALA Ondansetron HCl (Ondansetron Hcl 4 Mg/2 Ml Vial) 4 mg IVPUSH Q8H PRN PRN Reason: Nausea and Vomiting Oxycodone HCl (Oxycodone Hcl Immed Release 15 Mg Tablet) 15 mg PO Q6H PRN PRN Reason: Pain, Severe (Pain Scale 7-10) Last Admin: 10/13/24 10:41 Dose: 15 mg Documented By: NIRMALA Pregabalin (Pregabalin 150 Mg Capsule) 150 mg PO QID [facility] Last Admin: 10/13/24 09:47 Dose: 150 mg Documented By: NIRMALA Sodium Chloride (0.9 % Sodium Chloride Flush 3 Ml Syringe) 3 ml IVFLUSH QSHIFT [facility] Last Admin: 10/13/24 09:46 Dose: 3 ml Documented By: NIRMALA Torsemide (Torsemide 20 Mg Tablet) 20 mg PO DAILY [facility]; Protocol Last Admin: 10/13/24 09:47 Dose: 20 mg Documented By: NIRMALA Vitamin D (Cholecalciferol (Vitamin D3) 25 Mcg Tablet) 125 mcg PO DAILY [facility] Last Admin: 10/13/24 09:47 Dose: 125 mcg Documented By: NIRMALA Labs 10/13/24 05:18 10/13/24 05:18 Labs: Laboratory Results - last 24 hr 10/12/24 10/12/24 10/12/24 11:36 16:32 20:45 MCV MCH MCHC RDW Plt Count MPV Immature Gran % (Auto) Neut % (Auto) Lymph % (Auto) [place] % (Auto) Eos % (Auto) Baso % (Auto) Lymph # (Auto) [place] # (Auto) Eos # (Auto) Baso # (Auto) Abs Immat Gran (auto) Absolute Neuts (auto) Absolute Nucleated RBC Nucleated RBC % (auto) Anion Gap Estim Creat Clear Calc Estimated GFR POC Glucose 110 199 H 166 H Random Glucose Calcium 10/13/24 10/13/24 05:18 07:24 MCV 85.8 MCH 28.2 MCHC 32.9 RDW 20.1 H Plt Count 57 L MPV 10.1 Immature Gran % (Auto) 0.5 H Neut % (Auto) 52.6 Lymph % (Auto) 30.0 [place] % (Auto) 11.7 H Eos % (Auto) 4.5 H Baso % (Auto) 0.7 Lymph # (Auto) 1.3 [place] # (Auto) 0.5 Eos # (Auto) 0.2 Baso # (Auto) 0.0 Abs Immat Gran (auto) 0.02 Absolute Neuts (auto) 2.3 Absolute Nucleated RBC 0.000 Nucleated RBC % (auto) 0.0 Anion Gap 10 L Estim Creat Clear Calc 59.7 Estimated GFR > 60 POC Glucose 118 H Random Glucose 56 L* Calcium 8.9 Microbiology Microbiology Results: Microbiology 10/11/24 20:41 Blood Culture - Preliminary Blood - Venous No growth after 24 hours. 10/11/24 20:30 Blood Culture - Preliminary Blood - Venous No growth after 24 hours. Assessment and Plan (1) Hypoglycemia: Status: Acute (2) Thrombocytopenia: Status: Acute (3) Hypothermia: Status: Acute (4) Acute metabolic encephalopathy due to hypoglycemia: Status: Acute Plan Patient is an 89-year-old male with a past medical history significant for paroxysmal AFib s/p cardioversion on Eliquis, CHF, recurrent UTIs, prostate cancer, STEMI, HTN, insulin-dependent diabetes, CAD and pacemaker, who presented to the ED after a mechanical fall transferring from his electric wheelchair. Acute metabolic encephalopathy due to hypoglycemia in diabetic [address] Sugar [address] head CT and c-spine negative CXR, UA negative, COVID/flu/RSV negative pending tick panel He was on Tresiba inj at home ? hold basal insulin restart sliding scale insulin HbA1c of 7.6 which is lower than before , decrease Insulin on dicharge monitor blood sugar thrombocytopenia previous thrombocytopenia with anaplasmosis tick panel ordered Hold Eliquis follow CBC hypothermia normal AM cortisol paroxysmal a fib. s/p ablation EKG with RBBB, no afib CHF, no acute exacerbation continue home meds HTN continue home meds IDDM hold basal insulin sliding scale full code VTE prophy: pneumoboots, anticoagulant on hold due to thrombocytopenia Pt with acute metabolic encephalopathy with hypoglycemia and hypothermia with concern for infectious etiology requiring admission for further workup and monitoring for overnight Quality Stroke Does the patient have a stroke diagnosis?: No VTE Prior VTE?: No VTE Risk Level:: Medical - moderate - high VTE Device Contraindication: N/A - Device Ordered VTE Drug Contraindication: Treatment Not Indicated
[2024-10-13 11:35] LABS: Glucose, Whole Blood 251 mg/dL (60-115)
[2024-10-13 13:16] VITALS: BMI 26.2
--- NOTE | 2024-10-13 13:22 | MHC.CLN ---
NUTRITION CONSULT FOR SKIN INTEGRITY. DIET=CARDIAC. HX POOR PO NOTED. ADDING ENSURE MAX BID TO PROMOTE SKIN INTEGRITY. PROVIDES 300 KCALS, 60 G PROTEIN. FOLLOW FOR PO INTAKE AND SKIN INTEGRITY. SEE CLINICAL NUTRITION ASSESSMENT 10/13/24.
[2024-10-13 15:38] VITALS: BP 106/56; PULSE 70; RESP 18; TEMP 36.6; O2SAT 98
[2024-10-13 16:28] LABS: Glucose, Whole Blood 228 mg/dL (60-115)
[2024-10-13] MEDS: Insulin Lispro 100 UNIT/ML 3 ML VIAL SUBCUT ×2 (17:18→20:52)
--- NOTE | 2024-10-13 17:54 | HO.WOUND ---
Wound Consult: Initial 89yr old?male admitted to [facility] on 10/11/24 - See progress notes and H&P for detailed history.? Wound consult placed for Bilateral Toes, Coccyx and Left Forehead.? Patient agreeable to assessment and photo documentation.? Chart review reveals patient follows with out pt vascular team recommend continued follow up out pt. He also follows with out patient wound clinic recommend following at time of discharge. Forehead is noted to round elevated lesion with central dried stable scab. He reports he was biopsied at [facility] and referred to Dermatology that he has coming up next week. No topical interventions needed at this time. Sacrum - is noted for intact pink blanchable tissue there is evidence of scar tissue noted and evidence of previous pressure injury. He is aware of previous injury to the area but is unable to recall the time when it was injured. Preventative measures should be employed such as foam dressing, Q2hr turns with use of pillows and ANIBAL mattress. Will place orders below. Right Toes Left Toes Right Heel Bilateral Toes and right heel (Lateral) Etiology: ?Arterial vs Diabetic wound Wound Bed: dry stable black brown eschar Drainage / Odor: None Edges: ? well demarcated [place] wound: ?dry intact tissue? pink red erythema mild swelling to left great toe No Induration, Fluctuance or Warmth noted Pain: pain reported Goals of Treatment: Durafiber to keep dry and stable and dry gauze dressing to protect from trauma Right posterior leg noted for small dime sized wound - dry and open to air - etiology unclear recommend foam dressing to allow for moist wound healing +pp via doppler, +pedal swelling noted. Recommendations: 1. Turn and Reposition every 2 hours and as needed for patient comfort.? Use pillows or wedges to support off loading positions. 2. Off Load all bony prominences with use of pillows and heel boots if needed.? Apply Preventative foams where needed. ? 3. Monitor for incontinence and moisture control, use barrier creams when needed for prevention and treatment. 4. Provide adequate and supplemental nutrition.? 5. When applicable maintain blood glucose levels per Providers order. 6. Order Low air loss pump for mattress. 7.? Bilateral Toes - Elevate heels off of bed surface with pillows. [place] with Betadine allow to dry, apply durafiber ag.? Cover with dry ABD pad and gauze wrap.? Change every other day.? 8. Sacrum - Off Load Pressure with Q2 hr turns and use of pillows - Cleanse with PH balance spray or wipes, pat dry. ?Apply skin prep allow to dry.? Cover with foam dressing to aid in off loading and protection from friction. Change every 5 days and PRN. 9. Right Posterior leg - Cleanse with ns moist gauze, pat dry. Cover with foam dressing. Change every 3 days.
[2024-10-13 19:32] VITALS: BP 105/52; PULSE 70; RESP 18; TEMP 36.6; O2SAT 97
[2024-10-13 20:40] LABS: Glucose, Whole Blood 284 mg/dL (60-115)
[2024-10-13] MEDS: Atorvastatin Calcium 40 MG TABLET PO (20:51)
[2024-10-14] VITALS: BP 118/58; PULSE 69; RESP 18; TEMP 36.7; O2SAT 98
[2024-10-14 07:08] LABS: MANUAL DIFF FLAG NO
[2024-10-14 07:23] LABS: Basophils Percent Auto 0.6 % (0-2); Eosinophils Absolute Auto 0.3 X10*3/uL (0.0-0.4); Hematocrit 33.5 % (42.0-52.0); Hemoglobin 10.8 g/dl (14.0-18.0); Imm Gran Abs Auto 0.04 X10*3/uL (0.00-0.03); Imm Gran Pct Auto 0.7 % (0.0-0.4); Lymphocytes Absolute Auto 1.5 X10*3/uL (1.2-4.9); Mean Corpuscular HGB Conc 32.2 g/dl (31.0-36.0); Mean Corpuscular Hemoglobin 27.3 pg (27.0-33.0); Mean Corpuscular Volume 84.6 fL (80.0-98.0); Mean Platelet Volume 10.7 fL (9.4-12.4); Monocytes Absolute Auto 0.6 X10*3/uL (0.1-1.2); Monocytes Percent Auto 11.1 % (2-11); Neutrophils Percent Auto 55.6 % (45-73); Platelet Count 71 X10*3/uL (160-400); Red Blood Count 3.96 X10*6/uL (4.60-5.80); Red Cell Distribution Width 19.9 % (11.0-16.0); White Blood Count 5.4 X10*3/uL (4.8-10.8)
[2024-10-14] MEDS: Pregabalin 150 MG CAPSULE PO ×2 (07:24→11:51)
[2024-10-14] MEDS: Docusate Sodium 100 MG CAPSULE PO (07:24)
[2024-10-14] MEDS: Cholecalciferol (Vitamin D3) 25 MCG TABLET 125 MCG PO (07:24)
[2024-10-14] MEDS: 0.9 % Sodium Chloride Flush 3 ML SYRINGE IVFLUSH (07:24)
[2024-10-14] MEDS: oxyCODONE HCl Immed Release 15 MG TABLET PO ×2 (07:24→13:29)
[2024-10-14] MEDS: Multivitamin TABLET 1 TAB PO (07:25)
[2024-10-14] MEDS: Torsemide 20 MG TABLET PO (07:25)
[2024-10-14] MEDS: Cyanocobalamin (Vitamin B-12) 1,000 MCG TABLET 1000 MCG PO (07:25)
[2024-10-14 07:42] LABS: Anion Gap 11 (12-20); Blood Urea Nitrogen 22 mg/dL (9-16); Calcium 8.9 mg/dL (8.4-10.2); Carbon Dioxide 28 mmol/L (22-29); Chloride 106 mmol/L (96-108); Creatinine Clr Calc Pharmacy 57.7; Estimated Glomerular Filt Rate > 60; Glucose Random 88 mg/dL (60-115); Potassium 4.3 mmol/L (3.3-5.1); Sodium 141 mmol/L (135-145)
[2024-10-14 07:48] VITALS: BP 121/67; PULSE 70; RESP 18; TEMP 36.4; O2SAT 97
[2024-10-14 07:54] LABS: Glucose, Whole Blood 130 mg/dL (60-115)
[2024-10-14 11:36] LABS: Glucose, Whole Blood 342 mg/dL (60-115)
[2024-10-14] MEDS: Milk of Magnesia 30 ML ORAL.SUSP PO (11:50)
[2024-10-14] MEDS: Insulin Lispro 100 UNIT/ML 3 ML VIAL SUBCUT (11:50)
--- NOTE | 2024-10-14 12:01 | P.DS_ITS ---
DS: Providers Provider Date of Service: 10/14/24 Date of admission: 10/14/24 08:46 Date of discharge: 10/14/24 Primary care physician: Jewel Rebolledo MD Consults: 10/12/24 16:42 Consult to Wound Care Routine Reason for consultation: R foot/toe ulcer/wound, wound to left forehead, pressure injury to coccyx DS: Diagnosis Discharge Diagnosis (1) Hypoglycemia: Status: Acute (2) Thrombocytopenia: Status: Acute (3) Hypothermia: Status: Acute (4) Acute metabolic encephalopathy due to hypoglycemia: Status: Acute (5) Persistent atrial fibrillation: Status: Acute (6) Hypoglycemia due to insulin: Status: Acute DS: Summary Hospital Course Hospital Course: Admission note HPI Patient is an 89-year-old male with a past medical history significant for paroxysmal AFib s/p cardioversion on Eliquis, CHF, recurrent UTIs, prostate cancer, STEMI, HTN, insulin-dependent diabetes, CAD and pacemaker, who presented to the ED after a mechanical fall transferring from his electric wheelchair. Patient reports that his is home called EMS some us immediately after therefore he was not on the ground for a long period of time. Unknown if head strike however patient became altered. He was found to be hypoglycemic and he reports that he has not had anything to eat since breakfast because he was busy. He denies any headache, shortness of breath, chest pain, runny nose, congestion, abdominal pain, acute diarrhea, or urinary symptoms including frequency, urgency or dysuria. He does report an infection on his right foot with a severe right foot pain. Has chronic neuropathy but reports this is only ever been on the left foot. Hospital course admitted for evaluation of Acute metabolic encephalopathy due to hypoglycemia as the patient takes insulin at home for DM2. head CT and c-spine negative. CXR, UA negative, COVID/flu/RSV negative. Monitored with frequent [place]uc[place] that was normal-high blood sugar. Held basal insulin and started SSI. HbA1c of 7.6 which is lower than before , to decrease Tresiba Insulin on dicharge to 25 units only and close monitoring of blood sugar with [facility] following at home. He was noted to have worsening thrombocytopenia this admission [place] [id number] with no reported bleeding. Had previous worst thrombocytopenia with anaplasmosis so tick panel was ordered and still pending. to be followed by PCP. We Held Eliquis during hospital stay and will start him on 2.5mg bid for the time being given his recent fall and risk of major bleeding. hypothermia was evaluated and resolved quickly with no recurrence. no infection identified. normal AM cortisol Has chronic sacral and Right foot wound that was evaluated by wound nurse who recommended local measures. to be followed by [facility] at home. Discharge plan Decrease Tresiba to 25 units for now Continue mealtime insulin Monitor blood sugar for next week 4 times a day and report readings to PCP for further adjustments To do physical therapy at home Hold Eliquis 5 mg and start lower dose of Eliquis 2.5 mg two times a day repeat blood test next week for platelets count. Follow with PCP for Eliquis dose adjustment. Time Attestation Discharge Coordination Time (in mins): 42 Quality: Safe Use of Opioids Does Pt have an Active Cancer Diagnosis on the Problem List?: No Quality: Stroke Does the patient have a stroke diagnosis?: No Physical Exam Vital Signs: Vital Signs: Last Vital Signs Temp 97.5 F 10/14/24 07:48 Pulse 70 10/14/24 07:48 Resp 18 10/14/24 07:48 BP 121/67 10/14/24 07:48 Pulse Ox 97 10/14/24 07:48 O2 Del Method Room Air 10/14/24 07:48 BMI result Body Mass Index 26.2 Const: Other: Constitutional : interactive, not in distress Cardiovascular : no JVP, no lower extremity edema Respiratory : bilateral chest movement, not in resp distress Gastrointestinal: soft, lax, Non tender Skin : Warm, Dry, forehead squamous cell cancer , multiple bruises , Right foot and post leg wound. Neurological : Alert & oriented , No focal deficit DS: Data Data Completed and Pending Completed studies during hospitalization [Text1]: Procedures Insertion of Infusion Device into Superior Vena Cava, Percutaneous Approach (12/29/20) Insertion of Pacemaker Lead into Right Atrium, Percutaneous Approach (12/29/20) Insertion of Pacemaker Lead into Right Ventricle, Percutaneous Approach ( 04/13) Insertion of Pacemaker, Dual Chamber into Chest Subcutaneous Tissue and Fascia, Open Approach (12/29/20) Irrigation of Genitourinary Tract using Irrigating Substance, Via Natural or Artificial Opening (01/04/23) Labs on day of discharge: Laboratory Results - last 24 hr 10/13/24 10/13/24 10/14/24 16:21 20:16 05:34 WBC 5.4 RBC 3.96 L Hgb 10.8 L Hct 33.5 L MCV 84.6 MCH 27.3 MCHC 32.2 RDW 19.9 H Plt Count 71 L MPV 10.7 Immature Gran % (Auto) 0.7 H Neut % (Auto) 55.6 Lymph % (Auto) 27.0 [place] % (Auto) 11.1 H Eos % (Auto) 5.0 H Baso % (Auto) 0.6 Lymph # (Auto) 1.5 [place] # (Auto) 0.6 Eos # (Auto) 0.3 Baso # (Auto) 0.0 Abs Immat Gran (auto) 0.04 H Absolute Neuts (auto) 3.0 Absolute Nucleated RBC 0.000 Nucleated RBC % (auto) 0.0 Sodium 141 Potassium 4.3 Chloride 106 Carbon Dioxide 28 Anion Gap 11 L BUN 22 H Creatinine 0.93 Estim Creat Clear Calc 57.7 Estimated GFR > 60 POC Glucose 228 H 284 H Random Glucose 88 Calcium 8.9 10/14/24 10/14/24 07:50 11:31 WBC RBC Hgb Hct MCV MCH MCHC RDW Plt Count MPV Immature Gran % (Auto) Neut % (Auto) Lymph % (Auto) [place] % (Auto) Eos % (Auto) Baso % (Auto) Lymph # (Auto) [place] # (Auto) Eos # (Auto) Baso # (Auto) Abs Immat Gran (auto) Absolute Neuts (auto) Absolute Nucleated RBC Nucleated RBC % (auto) Sodium Potassium Chloride Carbon Dioxide Anion Gap BUN Creatinine Estim Creat Clear Calc Estimated GFR POC Glucose 130 H 342 H Random Glucose Calcium Preliminary micro results at discharge 10/11/24 20:41 Blood Culture - Preliminary Blood - Venous No growth after 48 hours. 10/11/24 20:30 Blood Culture - Preliminary Blood - Venous No growth after 48 hours. Imaging Chest x-ray: My impression: Foot XR IMPRESSION: 1. No radiographic evidence of acute osseous findings. 2. Soft tissue swelling of the dorsum of the foot and atherosclerotic vascular disease. Head CT IMPRESSION: 1. No acute intracranial findings specifically, no acute intracranial hemorrhage. This document has been electronically signed by: Emerald Perea MD on 10/11/2024 20:50:29 Discharge Plan Discharge Anticipated Discharge Date/Time: 10/14/24 11:43 Patient Disposition: Home Health Service Discharge Diagnosis: Fall Low blood sugar Low Platelets Referrals: Jewel Rebolledo MD [Primary Care Provider] - 1 Week Discharge Medications: New Eliquis 2.5 mg tablet 2.5 mg PO BID Qty: 180 0RF Continued (DME) diaper,brief,adult,disposable Misc See Rx Instructions .ROUTE .MEDSUPPLY Qty: 120 4RF Rx Instructions: As directed - 4 per day torsemide 20 mg tablet 20 mg PO DAILY Qty: 30 5RF insulin aspart U-100 [Novolog U-100 Insulin aspart] 100 unit/mL Solution 8 unit SUBCUT TIDWM [place]-3 Fish Oil 300-1,000 mg Capsule 1 cap PO DAILY cholecalciferol (vitamin D3) [Vitamin D3] 125 mcg (5,000 unit) Tablet 125 mcg PO DAILY oxycodone 15 mg tablet 15 mg PO TID PRN (Reason: Pain) clotrimazole-betamethasone 1-0.05 % cream 1 appl TOPICAL BID PRN (Reason: Itching) pregabalin 150 mg capsule 150 mg PO QID vitamin B complex Tablet 1 tab PO DAILY cyanocobalamin (vitamin B-12) 1,000 mcg Tablet 1,000 mcg PO DAILY docusate sodium 100 mg capsule 100 mg PO DAILY atorvastatin 40 mg tablet 40 mg PO BEDTIME Changed insulin degludec [Tresiba FlexTouch U-100] 100 unit/mL (3 mL) insulin pen 25 unit subcut BEDTIME Qty: 15 0RF Held Eliquis 5 mg tablet 5 mg PO BID Qty: 60 0RF Hold Instructions: Follow with PCP to decide when to restart full dose Discharge Orders: Discharge Order (Routine); Ordered 10/14/24 Ordered By: Santosh Mayes Diet: Diabetic diet Activity on Discharge: As tolerated Stand Alone Forms: Patient Portal Discharge page Print Language: Slovenian Other Ambulatory Orders: Complete Blood Count Auto Diff (Routine) Timeframe: 5 Days Facility: [facility] - Location: Laboratory Ordered By: Santosh Mayes Care Plan Goals: Decrease Tresiba to 25 units for now Continue mealtime insulin Monitor blood sugar for next week 4 times a day and report readings to PCP for further adjustments To do physical therapy at home Hold Eliquis 5 mg and start lower dose of Eliquis 2.5 mg two times a day repeat blood test next week for platelets count. Follow with PCP for Eliquis dose adjustment. Health Concerns: Low blood sugar Plan of Treatment: Decrease Insulin dose Assessment: as above
--- NOTE | 2024-10-14 12:06 | W.MHC.F2F ---
Service Date Service Date: 10/14/24 Encounter Date of encounter: 10/14/24 Reasons for Services Signs and symptoms assessed: Hypoglycemia Right foot wound physical deconditioning Reason for penitentiary: wound care (Elevate heels off of bed surface with pillows. [place] with Betadine allow to dry, apply durafiber ag. Cover with dry ABD pad and gauze wrap. Change every other day. ), diabetic teaching, monitoring of unstable blood sugar and teach disease management Reason for physical therapy: home safety and mobility and therapeutic exercises Homebound: Leaving the home is medically contraindicated at this time without the asist of a device and/or another person due th the listed conditions above and below. Reason homebound: unsteady gait / fall risk Certification: Based on the above findings, I certify that this patient is confined to the home and needs intermittent penitentiary care, physical therapy and/or speech therapy, or continues to need occupational therapy. The patient is under my care, and I have initiated the establishment of the plan of care. The patient will be followed by a physician who will periodically review the plan of care. Time Spent With Patient Time: Total time managing care of this patient today ____ minutes.
[2024-10-14 12:10] VITALS: BP 121/67; PULSE 70; O2SAT 97
--- NOTE | 2024-10-14 12:10 | MHC.CM.PN ---
Addendum entered by Alexa Blum 10/14/24 13:50: CM SPOKE TO PTS DAUGHTER RENÉE, SHE IS AWARE PT DECLINED STR AND WAS OBS SO WOULD NOT HAVE A PAYER SHE CONFIRMS HE WAS ACTIVE WITH [facility] AND WAITING FOR PT TO START SHE IS AWARE CM MESSAGED [facility] TO RESUME NURSING AND GET PT STARTED SHE CONFIRMS PT USES A SCOOTER MOST OF THE TIME AND WILL AMBULATE SHORT DISTANCES WITH A WALKER PT WILL DC HOME TODAY WITH RESUMPTION OF [facility] TO TRANSPORT Addendum entered by Alexa Blum 10/14/24 12:16: KEMAR ATTEMPTED TO CALL PTS , CHARLENE [phone] AND DAUGHTER, RENÉE [phone] TO REVIEW DCP BOTH CALLS WENT TO , MESSAGES LEFT Original Note: PT IS CLEARED FOR DC TODAY PT IS AWARE STR HAD BEEN RECOMMENDED, HOWEVER HE STATES HE IS NOT INTERESTED HE SAYS HE HAS BEEN BEFORE AND DID NOT FEEL IT WAS BENEFICIAL. HE IS ACTIVE WITH [facility] FOR SN AND SAYS HE WAS SUPPOSED TO GET PT BUT THEY NEVER CAME CM HAS REQUESTED ORDERS FOR NURSING AND PT UPON DC PT STATES HIS WILL TRANSPORT
[2024-10-14 12:23] VITALS: BP 126/74; PULSE 72; RESP 18; TEMP 36.4; O2SAT 96
[2024-10-14] MEDS: Insulin Glargine,Hum.rec.anlog 100 UNIT/ML 10 ML VIAL 10 UNIT SUBCUT (12:26)
[2024-10-14 14:55] VITALS: BP 107/60; PULSE 70; RESP 18; TEMP 36.2; O2SAT 96
[2024-10-14 16:58] LABS: A. Phagocytphilium DNA,RT-PCR NOT DETECTED (NOT DETECTED); Babesia Microti DNA, RT-PCR NOT DETECTED (NOT DETECTED); Borrelia Miyamotoi,DNA RT-PCR NOT DETECTED (NOT DETECTED); E.Chaffeensis DNA RT-PCR NOT DETECTED (NOT DETECTED); Lyme(Borrelia ssp)DNA RT-PCR NOT DETECTED (NOT DETECTED)
== END 2024-10-14 16:15 | disposition home health service (06) | DRG 637 ==
LOC: HO.ED 23:35 → HO.EDOVER 23:50 → HO.S3 10-12 14:05
PROVIDERS: Physician Assistant; Admitting Provider Student in an Organized Health Care Education/Training Program; Emergency Provider Emergency Medicine; PCP Internal Medicine; Visit Provider Student in an Organized Health Care Education/Training Program
DX: E11.649 Type 2 diabetes mellitus with hypoglycemia without coma (principal); G93.41 Metabolic encephalopathy; I50.33 Acute on chronic diastolic (congestive) heart failure; I11.0 Hypertensive heart disease with heart failure; I48.0 Paroxysmal atrial fibrillation; D69.6 Thrombocytopenia, unspecified; R68.0 Hypothermia, not associated with low environmental temperature; Z20.822 Contact with and (suspected) exposure to COVID-19; Z87.891 Personal history of nicotine dependence; Z95.0 Presence of cardiac pacemaker; Z79.4 Long term (current) use of insulin; Z79.01 Long term (current) use of anticoagulants; Z79.899 Other long term (current) drug therapy
CPT/HCPCS: 0241U; 36415; 70450; 71045; 72125; 73630; 80048; 80076; 80307; 81001; 82533; 82947; 83036; 83605; 83735; 83880; 84484; 85025; 85610; 87040; 87468; 87469; 87478; 87484; 87798; 93005; 93280; 97116; 97162; 99212; 99221; 99285; J0696; J2270

== ENCOUNTER → 2024-10-11 19:21 | Outpatient (BNV) | payer MEDICARE, SELFPAY | PROVIDERS: Emergency Provider Emergency Medicine; Visit Provider Student in an Organized Health Care Education/Training Program | DX: M47.812 Spondylosis without myelopathy or radiculopathy, cervical region (principal); R41.82 Altered mental status, unspecified; Z79.01 Long term (current) use of anticoagulants; W19.XXXA Unspecified fall, initial encounter | CPT/HCPCS: 70450; 72125 ==

== ENCOUNTER → 2024-10-11 21:30 | Outpatient (BNV) | payer MEDICARE, SELFPAY | PROVIDERS: Emergency Provider Emergency Medicine; Visit Provider Physician Assistant | DX: E16.2 Hypoglycemia, unspecified (principal); D69.6 Thrombocytopenia, unspecified; T68.XXXA Hypothermia, initial encounter; G93.41 Metabolic encephalopathy | CPT/HCPCS: 99223; 99232; 99233; 99239 ==

== ENCOUNTER 2024-10-11 23:08 | Outpatient (BNV) | payer MEDICARE, SELFPAY | END 2024-10-12 | PROVIDERS: Admitting Provider Student in an Organized Health Care Education/Training Program; Emergency Provider Emergency Medicine; Visit Provider Specialist | DX: I70.90 Unspecified atherosclerosis (principal); R22.41 Localized swelling, mass and lump, right lower limb | CPT/HCPCS: 73630 ==

== ENCOUNTER → 2024-11-07 23:59 | Outpatient (BNV) | payer MEDICARE, SELFPAY ==
--- NOTE | 2024-11-07 16:05 | MHC.OFFVIS ---
Intake Visit Reasons: Remote device check- [facility] Allergies No Known Allergies Allergy (Mild, Verified 10/11/24 19:51) N/A [facility] Medical History (Updated 10/19/24 @ 00:01 by Carmelo Ramos) Persistent atrial fibrillation Acute on chronic diastolic (congestive) heart failure Urinary tract infection due to Pseudomonas aeruginosa Recurrent UTI History of prostate cancer Acute retention of urine COVID-19 vaccine series completed History of cardioversion Hx of Lyme disease Tubular adenoma of colon History of ST elevation myocardial infarction (STEMI) (HFpEF) heart failure with preserved ejection fraction Cardiac pacemaker in situ (~12/2020) Hepatorenal syndrome Symptomatic bradycardia Ventricular bigeminy Thrombocytopenia PVC (premature ventricular contraction) CHF exacerbation Bifascicular block Pancytopenia Prostate CA Myocardial infarct, old CAD (coronary artery disease) HLD (hyperlipidemia) Diabetes HTN (hypertension) Surgical History History of colonoscopy History of cervical spinal surgery History of radical prostatectomy History of left inguinal hernia repair History of total right knee replacement (TKR) History of lumbar discectomy History of cardiac pacemaker (~12/2020) Social History Household Members: Spouse Household Members Other:: 1 Housing: House Are you a primary customer care professional to a significant other at home: No Do you presently have visiting nurse or other home services: Yes Alcohol intake: never Comment: pt refused bed/chair alarm Patient Tobacco Use Status: Former Tobacco user Tobacco use type: Cigarette Years Smoked: 10 Second Hand Smoke Exposure: No Advance Directives Date on File: 01/04/23 service: Yes Current occupational status: retired Office Procedures Cardiac Device Check Cardiac Device Check Details: Remote pacemaker report generated 11/07/2024. Pacemaker function is adequate. Persistent atrial fibrillation noted [id number] Cardiac Device Interrogation, pacemaker Procedure code (CPT) selection complete Assessment & Plan Assessment & Plan (1) Cardiac pacemaker in situ: Onset Date: ~12/2020 Comment: ([facility] DCPP 01/03/2021) Code(s): Z95.0 - Presence of cardiac pacemaker Category: Medical Plan: See above Coding Level of Care Code Procedure Only Diagnoses Cardiac pacemaker in situ Z95.0 CPT Codes Cardiac Device Check - Cardiac Device 12: [id number] Cardiac Device Interrogation, pacemaker ([id number])
== END ==
PROVIDERS: PCP Internal Medicine; Visit Provider Internal Medicine Cardiovascular Disease
DX: I48.19 Other persistent atrial fibrillation (principal); Z95.0 Presence of cardiac pacemaker
CPT/HCPCS: 93294

== ENCOUNTER → 2024-12-06 11:53 | Outpatient (BNV) | payer MEDICARE, SELFPAY | PROVIDERS: PCP Internal Medicine; Visit Provider Radiology Diagnostic Radiology | DX: S91.101A Unspecified open wound of right great toe without damage to nail, initial encounter (principal) | CPT/HCPCS: 73660 ==

== ENCOUNTER 2025-03-27 15:15 | Outpatient (RCR) | payer MEDICARE, SELFPAY ==
--- NOTE | ~2025-03-27 | XR_ITS ---
EXAMINATION: XR HALLUX, RIGHT CLINICAL INFORMATION: NONHEALING WOUND COMPARISON: 10/12/2024. TECHNIQUE: 3 views of the right hallux were obtained. FINDINGS: No definite fracture, dislocation, or suspicious bone lesion. No focal osteopenia or permeative bony change to suggest radiographic changes of osteomyelitis. There are moderate degenerative changes in the interphalangeal joint of the hallux. There are vascular calcifications in the soft tissues. There is soft tissue swelling of the hallux. No subcutaneous emphysema. XR/XR toe RT min 2V IMPRESSION: 1. Soft tissue swelling of the hallux without definite radiographic changes of osteomyelitis. Electronically signed by: Cornelio Sawyer MD 12/07/2024 02:33 PM EDT RP
== END 2025-03-27 16:43 | disposition home or self-care (01) ==
LOC: HO.WCC 15:15
PROVIDERS: PCP Internal Medicine; Visit Provider Surgery Surgical Oncology
DX: E11.621 Type 2 diabetes mellitus with foot ulcer (principal); L97.512 Non-pressure chronic ulcer of other part of right foot with fat layer exposed; S50.812A Abrasion of left forearm, initial encounter; S50.311A Abrasion of right elbow, initial encounter; E11.51 Type 2 diabetes mellitus with diabetic peripheral angiopathy without gangrene; C44.329 Squamous cell carcinoma of skin of other parts of face
CPT/HCPCS: 11042; 11043; 11045; 11102; 15275; 73660; 87070; 87073; 87205; 88304; 88305; 97597; 99212; 99213; 99214; 99215; Q4187

== ENCOUNTER 2025-03-28 12:51 | Outpatient (AMB) | payer MEDICARE, SELFPAY ==
--- NOTE | 2025-03-28 12:56 | A.OFFVIS_ITS ---
Vital Signs 03/28/25 12:57 Height 5 ft 10 in BMI Reason not done Patient refused/unable BP 120/82 Blood Pressure Location Lt brachial Position Sitting Pulse 70 Intake Visit Reasons: 6 month Follow up Intake Note: 6 month follow-up with [facility] check Fraternity Adviser Required: No Allergies No Known Allergies Allergy (Mild, Verified 10/11/24 19:51) N/A Medication List - Last Reconciled 03/28/25 by Titi Deluca MD apixaban (Eliquis) 2.5 mg PO BID cholecalciferol (vitamin D3) (Vitamin D3) 125 mcg PO DAILY clotrimazole-betamethasone 1-0.05 % 1 appl topical BID PRN cyanocobalamin (vitamin B-12) 1,000 mcg PO DAILY diaper,brief,adult,disposable As directed - 4 per day insulin aspart U-100 (Novolog U-100 Insulin aspart) 8 units subcut TIDWM insulin degludec (Tresiba FlexTouch U-100 insulin) 25 units (0.25 mL) subcut BEDTIME [id number] oil 300-1,000 mg ([place]-3 Fish Oil) 1 cap PO DAILY pregabalin 150 mg PO QID torsemide 20 mg PO DAILY vitamin B complex 1 tab PO DAILY HPI Comments Details: Corbin comes for follow-up. He is frustrated because he has not had any treatment plan for the lesion on his forehead. He has not had any cardiac complaints. He has difficulty walking outside due to balance issues and with a walker. Inside the house he can not get much to walk. However he does not have any worsening shortness of breath. No orthopnea, PND, leg edema. No falls. No palpitations or irregular heartbeat. No bleeding issues or neurologic events. Takes all his medications. [facility] Medical History (Updated 10/19/24 @ 00:01 by Background Daemon) Persistent atrial fibrillation Acute on chronic diastolic (congestive) heart failure Urinary tract infection due to Pseudomonas aeruginosa Recurrent UTI History of prostate cancer Acute retention of urine COVID-19 vaccine series completed History of cardioversion Hx of Lyme disease Tubular adenoma of colon History of ST elevation myocardial infarction (STEMI) (HFpEF) heart failure with preserved ejection fraction Cardiac pacemaker in situ (~12/2020) Hepatorenal syndrome Symptomatic bradycardia Ventricular bigeminy Thrombocytopenia PVC (premature ventricular contraction) CHF exacerbation Bifascicular block Pancytopenia Prostate CA Myocardial infarct, old CAD (coronary artery disease) HLD (hyperlipidemia) Diabetes HTN (hypertension) Surgical History History of colonoscopy History of cervical spinal surgery History of radical prostatectomy History of left inguinal hernia repair History of total right knee replacement (TKR) History of lumbar discectomy History of cardiac pacemaker (~12/2020) Social History Household Members: Spouse Household Members Other:: 1 Housing: House Are you a primary care services manager to a significant other at home: No Do you presently have visiting nurse or other home services: Yes Alcohol intake: never Comment: pt refused bed/chair alarm Patient Tobacco Use Status: Former Tobacco user Tobacco use type: Cigarette Years Smoked: 10 Second Hand Smoke Exposure: No Advance Directives Date on File: 01/04/23 service: Yes Current occupational status: retired Review of Systems Const Denies chills, Denies fatigue, Denies fever(s), Denies frequent falls, Denies weakness, Denies weight gain and Denies weight loss ENT Denies dizziness Card Denies chest pain, Denies leg edema, Denies lightheadedness, Denies palpitations, Denies dyspnea, Denies dyspnea on exertion, Denies orthopnea and Denies other (loss of consciousness) Resp Denies cough, Denies dyspnea and Denies dyspnea on exertion GI Denies hematochezia and Denies change in stool character Musc Denies abnormal gait, Denies muscle weakness, Denies numbness, Denies radiating pain into limb and Denies tingling Neuro Denies abnormal gait, Denies dizziness, Denies frequent falls, Denies numbness, Denies tingling and Denies weakness Endo Denies fatigue and Denies palpitations Physical Exam Vital Signs: Last Vital Signs Pulse 70 03/28/25 12:57 BP 120/82 03/28/25 12:57 Const General: cooperative, comfortable, no acute distress, alert and awake Nutritional Appearance: overweight and other (Frail elderly man) Orientation/consciousness: patient oriented x3 Limitations: wheelchair Neck Neck: Yes trachea midline, Yes supple and Yes no JVD Resp Effort & Inspection: normal respiratory effort Auscultation: clear to auscultation bilaterally Cardio Jugular venous distension: no JVD Rate: regular rate Rhythm: regular rhythm Heart sounds: S1 normal heart sound present, S2 normal heart sound present, no click, no gallops and no murmurs Skin General skin exam: no rashes or lesions noted and ecchymosis Neuro General: patient oriented x3 and no focal motor deficits Extrem General: No clubbing, No cyanosis and Yes edema Psych Appearance: grossly normal Office Procedures Cardiac Device Check Cardiac Device Check Details: Dual-chamber [facility] pacemaker in place. Programmed in DDI. Underlying atrial fibrillation noted. Ventricular pacing thresholds excellent and in auto capture mode. Ventricular sensing is excellent. Pacing lead impedance is stable. Battery life is excellent [id number] Cardiac Device Check, pacemaker dual lead Procedure code (CPT) selection complete Assessment & Plan Assessment & Plan (1) (HFpEF) heart failure with preserved ejection fraction: Code(s): I50.30 - Unspecified diastolic (congestive) heart failure Category: Medical Plan: Heart failure preserved ejection fraction, clinically euvolemic and well compensated with no worsening symptoms. Currently on torsemide therapy. Advised to continue the same. Most likely cause by his persistent atrial fibrillation. Signs and symptoms of heart failure were discussed. Additional therapy as needed at home. Daily weight monitoring avoidance salt loading was discussed. (2) Persistent atrial fibrillation: Comment: Status post repeat cardioversion, October 2022 on therapy with Multaq Code(s): I48.19 - Other persistent atrial fibrillation Category: Medical Plan: Persistent atrial fibrillation which is now rate controlled. Continue rate control therapy. Has failed rhythm control approach. Continue full oral anticoagulation, currently on Eliquis 2.5 mg b.i.d.. Quarterly renal function test should be pursued. (3) Cardiac pacemaker in situ: Onset Date: ~12/2020 Comment: ([facility] DCPP 01/03/2021) Code(s): Z95.0 - Presence of cardiac pacemaker Category: Medical Plan: Cardiac pacemaker in-situ, working well. Reprogrammed for adequate function. Will follow remotely in 3 months. Follow up in the clinic in 6 months time. Follow up in the clinic in 6 months time, sooner p.r.n.. Thank you for allowing me to partake in his care Orders: Orders Basic Metabolic Panel Today I48.19 - Other persistent atrial fibrillation Medications: Changed From torsemide 20 mg PO DAILY 30 tabs 5RF To torsemide doesn't take when has goes out 20 mg PO DAILY Coding Level of Care Code Est Pt Level 4 (44978) Complex EM visit Add On G2211 Diagnoses (HFpEF) heart failure with preserved ejection fraction I50.30 Persistent atrial fibrillation I48.19 Cardiac pacemaker in situ Z95.0 CPT Codes Cardiac Device Check - Cardiac Device 2: [id number] Cardiac Device Check, pacemaker dual lead ([id number])
[2025-03-28 12:57] VITALS: BP 120/82; PULSE 70
--- OUTSIDE RECORDS SUMMARY | 2025-03-28 13:24 | XMS_ITS | Encounter Summary ---
Author Organization [facility]ly [facility] Address [address] [place] [address] Care Team Providers Care Spice Blender Name Role Phone Pcp, No Primary Care Provider Unavailabl e Encounter Details Date Type Department Care Team (Late st Contact Info) Description 09/29/2022 Scanned Document [facility] Urologic Surgery [address] [place] [address] Sreekanth Lobato MD Social History Tobacco Use Types Packs/Day Years Used Date Smoking Tobacco: Never Assessed Sex and Gender Information Value Date Recorded Sex Assigned at Not on file Legal Sex Male 6:41 PM EST Gender Identity Male 08/19/2023 2:13 PM EST Sexual Orientation Not on file documented as of this encounter Plan of Treatment Not on file documented as of this encounter Visit Diagnoses Not on filedocumented in this encounter Care Teams Spice Blender Relationship Specialty Start Date End Date Pcp, No PCP - General General Medicine 08/19/23 documented as of this encounter
--- OUTSIDE RECORDS SUMMARY | 2025-03-28 13:24 | XMS_ITS | Encounter Summary ---
Author Organization [facility] Address [address] [facility] [address] [place] [id number] Phone Care Team Providers Care Senior Media Buyer Name Role Phone Jewel Rebolledo MD Primary Care Provider [phone] Pcp, Not Required Unavailable Unavailable Wade Seo DO, Justine Unavailable [phone] Luis Aly MD Unavailable [phone] Hodan Rodriguez MD, MPH Unavailable [phone] Encounter Details Date Type Department Care Team (Late st Contact Info) Description 12/08/2024 Procedure Pass [facility], Ct Scan - [facility] [address] [place] [address] Social History Tobacco Use Types Packs/Day Years Used Date Smoking Tobacco: Never Assessed Education Answer Date Recorded Are you interested in more education? Not on stephanie e 12/08/2024 Are you concerned about learning? Not on file 12/08/2024 No 12/08/2024 No 12/08/2024 Digital Access Answer Date Recorded No 12/08/2024 No 12/08/2024 Reliable internet access at home? Not on file 12/08/2024 Device with a working camera? Not on file Sex and Gender Information Value Date Recorded Sex Assigned at Male 12/08/2024 12:51 PM EDT Legal Sex Male 12:50 PM EDT Gender Identity Male 12/08/2024 12:51 PM EDT Sexual Orientation Straight 12/08/2024 12 :51 PM EDT documented as of this encounter Plan of Treatment Upcoming Encounters Date Type Department Care Team (Late st Contact Info) Description 04/13/2025 10:20 AM EDT Office Visit [facility] [address] [facility] [place] [address] Hodan Rodriguez MD, MPH [facility] [address] [address] [email or web address] documented as of this encounter Visit Diagnoses Not on filedocumented in this encounter Care Teams Senior Media Buyer Relationship Specialty Start Date End Date Jewel Rebolledo MD [address] [place] [phone] PCP - General Internal Medicine 12/08/24 Pcp, Not Required [address] [place] [phone] 12/08/24 Serenity Olvera DO [address] [place] [phone] [email or web address] Medical Oncology 12/26/24 Luis Aly MD [address] [place] [phone] [email or web address] Medical Oncology 12/26/24 Hodan Rodriguez MD, MPH [address] [place] [phone] [email or web address] 12/26/24 documented as of this encounter Additional Source Comments The information contained in this document represents components of the legal health record. It is not the complete legal health record.[facility]
--- OUTSIDE RECORDS SUMMARY | 2025-03-28 13:24 | XMS_ITS | Encounter Summary ---
Author Organization [facility] [place] [address] Care Team Providers Care Director Outcomes Name Role Phone Jewel Rebolledo MD Primary Care Provider [phone] Encounter Details Date Type Department Care Team (Late st Contact Info) Description 01/09/2025 Lab Requisition [facility] [address] [facility] [place] [address] Sreekanth Lobato MD [address] [facility] [address] [place] [address] Intrinsic sphincter deficiency (ISD); Urinary tract infection, site not specified Social History Tobacco Use Types Packs/Day Years Used Date Smoking Tobacco: Former Cigarettes Smokeless Tobacco: Never Alcohol Use Standard Drinks/Week Comments Not Currently 0 (1 standard drink = 0.6 oz pur e alcohol) Sex and Gender Information Value Date Recorded Sex Assigned at Not on file Legal Sex Male 2:37 AM EST Gender Identity Not on file Sexual Orientation Not on file documented as of this encounter Plan of Treatment Not on file documented as of this encounter Procedures Procedure Name Priority Date/Time Associated Diagnosis Comments CULTURE URINE Routine 01/09/2025 12:00 AM EDT Intrinsic sphincter deficiency (ISD) Urinary tract infection, site not specified documented in this encounter Results * (ABNORMAL) Culture urine (01/09/2025 12:00 AM EDT) Culture, Urine 10,000-49,000 CFU/mL Escherichia coli(A) SAHRA 01/13/2025 11:16 AM EDT [facility] Culture, Urine 10,000-49,000 CFU/mL Enterococcus faecium(A) SAHRA 01/13/2025 11:16 AM EDT [facility] Comment: Edited result: Previously reported as Gram Positive Cocci on 01/11/2025 at 0921 EDT. Urine Urine specimen obtained by clean catch procedure / Unknown 01/09/2025 01/09/2025 6:08 PM EDT Narrative [facility] - 01/13/2025 11:16 AM EDT Sparse yeast noted Organism Antibiotic Method Susceptibility Escherichia coli Amikacin DISK DIFFUSION Susceptible Escherichia coli Amoxicillin/Clavulanate DISK DIFFUSIO N Resistant Escherichia coli Ampicillin/Sulbactam DISK DIFFUSION Resistant Escherichia coli Cefazolin DISK DIFFUSION Resistant Escherichia coli Cefepime DISK DIFFUSION Susceptible Escherichia coli Cefoxitin DISK DIFFUSION Resistant Escherichia coli Ceftazidime DISK DIFFUSION Resistant Escherichia coli Ceftriaxone DISK DIFFUSION Resistant Escherichia coli Ciprofloxacin DISK DIFFUSION Susceptible Escherichia coli Gentamicin DISK DIFFUSION Susceptible Escherichia coli Levofloxacin DISK DIFFUSION Susceptible Escherichia coli Meropenem DISK DIFFUSION Susceptible Escherichia coli Nitrofurantoin DISK DIFFUSION Susceptible Escherichia coli Piperacillin/Tazobactam DISK DIFFUSIO N Susceptible-dose dependent Escherichia coli Trimethoprim/Sulfame thoxaz ole DISK DIFFUSION Susceptible Enterococcus faecium Benzylpenicillin SAHRA >=64 ug/ml: Resistant Enterococcus faecium Ampicillin SAHRA >=32 ug/ml: Resistant Enterococcus faecium Ciprofloxacin SAHRA >=8 ug/ml: Resistant Enterococcus faecium Levofloxacin SAHRA >=8 ug/ml: Resistant Enterococcus faecium Linezolid SAHRA 2 ug/ml: Susceptible Enterococcus faecium Vancomycin SAHRA <=0.5 ug/ml: Susceptible Enterococcus faecium Tetracycline SAHRA >=16 ug/ml: Resistant Enterococcus faecium Nitrofurantoin SAHRA 128 ug/ml: Resistant us Sreekanth Lobato MD LAB MICROBIOLOGY - GENERA L ORDERABLES Final Result [facility] [address] [place] [address], documented in this encounter Visit Diagnoses Diagnosis Intrinsic sphincter deficiency (ISD) Urinary tract infection, site not specified documented in this encounter Care Teams Director Outcomes Relationship Specialty Start Date End Date Jewel Rebolledo MD [address], [place] PCP - General 09/25/22 documented as of this encounter
--- OUTSIDE RECORDS SUMMARY | 2025-03-28 13:24 | XMS_ITS ---
Author Name [facility] Organization Unknown History of Medication Use Medication Directions Dispensed Refills Start Date End Date Stat us sulfamethoxazole -trimethoprim (BACTRIM DS,SEPTRA DS) 800-160 MG tablet 1 tablet 1 tablet, Oral, Once, On Thu01/13/24 at 1500, For 1 dose, Administer with at least 8 ounces of water, All antimicrobials used at [facility] require an indication. Please complete the following documentation. Medical Prophylaxis 01/13/2024 01/13/2024 complete d metoPROLOL TARTRATE (LOPRESSOR) 50 MG tablet Take 1 tablet (50 mg total) by mouth 2 (two) times a day. 08/28/2023 active budesonide-formo terol (SYMBICORT) 80-4.5 MCG/ACT inhaler Inhale 2 puffs 2 (two) times a day. active ipratropium-albu terol (COMBIVENT RESPIMAT) 20-100 mcg/puff inhaler Inhale 1 puff 4 (four) times a day. active TURMERIC PO Take by mouth. activ e Allergies Allergen Reaction Severity Comment Documented Date Source Statu s IBUPROFEN UNKNOWN/PATIENT AND FAMILY UNABLE TO DEFINE 10/28/2023 [facility] active Problems Problem Status Onset Date Problem Type Date of Resolution Source Frequent urination active EncounterDiagnosisAct [facility] Prophylactic antibiotic active EncounterDiagnosisAct [facility] Stress incontinence of urine active EncounterDiagnosisAct [facility] S/P prostatectomy active EncounterDiagnosisAct [facility] Status post implantation of artificial urinary sphincter active EncounterDiagnosisAct [facility] S/P radiotherapy active EncounterDiagnosisAct [facility] Encounters Encounter Type Encounter Reason Primary Diagnosis Location Date Ambulatory Stress incontinence (female) (male) Stress incontinence (female) (male) [facility] 01/13/2024 Ambulatory Stress incontinence (female) (male) Stress incontinence (female) (male) [facility] 10/28/2023 Ambulatory Frequency of micturition Frequency of micturition [facility] 09/18/2023 Care Team Organization Name Specialty Phone Email Start Date End Da te [facility] 10/29/2023 [facility] PCP An/Sqq 89(V)15 [employer] 09/18/2023 11/09/2024 [facility] NO PCP Primary Care 09/18/2023 09/18/2023
== END 2025-03-28 13:28 | disposition home or self-care (01) ==
LOC: HO.HCS 12:51
PROVIDERS: PCP Internal Medicine; Visit Provider Internal Medicine Cardiovascular Disease
DX: I50.30 Unspecified diastolic (congestive) heart failure (principal); I48.19 Other persistent atrial fibrillation; Z95.0 Presence of cardiac pacemaker
CPT/HCPCS: 93280; 99214; G2211

== ENCOUNTER 2025-03-28 12:51 | Outpatient (REF) | payer MEDICARE, SELFPAY ==
[2025-03-28 14:42] LABS: Anion Gap 12 (12-20); Blood Urea Nitrogen 28 mg/dL (9-16); Calcium 9.1 mg/dL (8.4-10.2); Carbon Dioxide 24 mmol/L (22-29); Chloride 109 mmol/L (96-108); Estimated Glomerular Filt Rate 59; Potassium 4.6 mmol/L (3.3-5.1); Sodium 140 mmol/L (135-145)
== END 2025-03-28 12:52 | disposition home or self-care (01) ==
LOC: HO.LAB 12:51
PROVIDERS: Visit Provider Internal Medicine Cardiovascular Disease
DX: I11.0 Hypertensive heart disease with heart failure (principal); I50.32 Chronic diastolic (congestive) heart failure; I48.19 Other persistent atrial fibrillation; Z79.01 Long term (current) use of anticoagulants; Z95.0 Presence of cardiac pacemaker; Z79.899 Other long term (current) drug therapy
CPT/HCPCS: 36415; 80048; 93280; 99212

== ENCOUNTER 2025-04-11 14:25 | Outpatient (AMB) | payer MEDICARE, SELFPAY ==
--- NOTE | 2025-04-11 14:26 | MHC.PC.OV ---
Vital Signs 04/11/25 14:40 Height 5 ft 4.17 in Weight 160 lb BMI 27.3 BP 96/66 Blood Pressure Location Lt brachial Position Sitting Respiration 20 Pulse 71 Pulse Source Pulse Oximeter Temp 96.8 F Temp Source Temporal Artery Scan Pulse Oximetry (%) 99 Oxygen Delivery Method Room Air Intake Visit Reasons: establish care Remote Medical Coder Required: No Accompanied by: Self / Same As Patient Allergies No Known Allergies Allergy (Mild, Verified 04/11/25 16:31) N/A Medication List - Last Reconciled 04/11/25 by Amisha Abraham PA-C apixaban (Eliquis) 2.5 mg PO BID atorvastatin 40 mg PO BEDTIME blood-glucose sensor (Interface21Style Rob 3 Sensor device) Check glucose 3 times a day with meals blood-glucose,real time analyst,cont (FreeStyle Rob 3 Sherwood) Check glucose 3 times a day with meals cholecalciferol (vitamin D3) (Vitamin D3) 125 mcg PO DAILY clotrimazole-betamethasone 1-0.05 % 1 appl topical BID PRN cyanocobalamin (vitamin B-12) 1,000 mcg PO DAILY cyclobenzaprine 10 mg PO Q8H diaper,brief,adult,disposable As directed - 4 per day insulin aspart U-100 (Novolog FlexPen U-100 Insulin aspart) subcut insulin degludec (Tresiba FlexTouch U-100 insulin) 25 units (0.25 mL) subcut BEDTIME isosorbide mononitrate ER 30 mg PO DAILY krmdp-[id number]-lcg-epa-fish oil 300-1,000 mg (Preston-3 Fish Oil) 1 cap PO DAILY oxycodone 15 mg PO QID PRN pregabalin 150 mg PO QID torsemide 20 mg PO DAILY vitamin B complex 1 tab PO DAILY Tobacco use date assessed: 04/11/25 Fall risk assessment: 1 Fall in past year Last assessed Fall Risk: 04/11/25 Dental Screening Dental Screen Date: 04/11/25 Did you have a dental visit in the last 12 months?: No Did you have a dental problem in the last 6 months where you did not have access to dental care?: No Was dental information given to patient?: Patient has dentist HPI establish care HPI Details The patient is an 89-year-old male presenting for a new patient appointment and management of multiple chronic conditions. The patient has a history of squamous cell carcinoma of the face, initially treated at [facility] and later managed at [facility]. The tumor was deemed unresectable, and neoadjuvant immunotherapy was recommended, but the patient only received two doses before discontinuation due to lack of perceived efficacy. The patient has atrial fibrillation and is managed with a dual chamber [employer] Pacemaker, programmed in DDI mode, with excellent ventricular pacing thresholds and battery life. He is currently on Eliquis 2.5 mg twice daily for anticoagulation. The patient has diabetes mellitus, managed with Novolog insulin and Triceba, with recent A1c of 7.3, down from 7.5 in September. He also takes atorvastatin for hyperlipidemia and reports fluctuating blood glucose levels. The patient reports chronic pain attributed to arthritis, affecting his shoulders, hands, and feet, for which he was previously on oxycodone. He has discontinued oxycodone due to lack of efficacy and is currently on pregabalin, which provides partial relief. The patient underwent prostatectomy for prostate cancer, resulting in stress urinary incontinence, for which he recently had a Proact DST CS procedure at [facility] over the past week. Social History - Family: Lives with , has support from children - Housing: Receives Meals on Wheels - Functional Status: Uses a walker, has visiting nurse assistance [facility] Medical History (Updated 04/11/25 @ 16:49 by Amisha Abraham PA-C) Type 2 diabetes mellitus with hemoglobin A1c goal of less than 7.0% Atrial fibrillation Squamous cell carcinoma of skin of face Arthritis Persistent atrial fibrillation Acute on chronic diastolic (congestive) heart failure Urinary tract infection due to Pseudomonas aeruginosa Recurrent UTI History of prostate cancer Acute retention of urine COVID-19 vaccine series completed History of cardioversion Hx of Lyme disease Tubular adenoma of colon History of ST elevation myocardial infarction (STEMI) (HFpEF) heart failure with preserved ejection fraction Cardiac pacemaker in situ (~12/2020) Hepatorenal syndrome Symptomatic bradycardia Ventricular bigeminy Thrombocytopenia PVC (premature ventricular contraction) CHF exacerbation Bifascicular block Pancytopenia Prostate CA Myocardial infarct, old CAD (coronary artery disease) HLD (hyperlipidemia) Diabetes HTN (hypertension) Surgical History History of colonoscopy History of cervical spinal surgery History of radical prostatectomy History of left inguinal hernia repair History of total right knee replacement (TKR) History of lumbar discectomy History of cardiac pacemaker (~12/2020) Family History Father Stromal tumor of the stomach Mother Diabetes Social History Household Members: Spouse Household Members Other:: 1 Housing: House Are you a primary clinical care manager to a significant other at home: No Do you presently have visiting nurse or other home services: Yes Alcohol intake: current Alcohol intake frequency: does not drink Alcohol type: wine Patient Tobacco Use Status: Former Tobacco user Tobacco use type: Cigarette Second Hand Smoke Exposure: No Advance Directives Date on File: 01/04/23 service: Yes Current occupational status: retired Cognitive needs: Yes (walker) Hearing needs: No Vision needs: Yes (reading/cheaters) Questionnaire PHQ-9 Over the last 2 weeks, how often have you been bothered by any of the following problems? 1. Little interest or pleasure in doing things: not at all 2. Feeling down, depressed, or hopeless: not at all 3. Trouble falling or staying asleep, or sleeping too much: not at all 4. Feeling tired or having little energy: not at all 5. Poor appetite or overeating: not at all 6. Feeling bad about yourself - or that you are a failure or have let yourself or your family down: not at all 7. Trouble concentrating on things, such as reading the newspaper or watching television: not at all 8. Moving or speaking so slowly that other people could have noticed. Or the opposite - being so fidgety or restless that you have been moving around a lot more than usual: not at all 9. Thoughts that you would be better off or of hurting yourself in some way: not at all Total score: 0 Depression Screening Interpretation: Negative Depression Screening Done: Yes 68245 - PHQ-9 Billing: Yes Source: Developed by Drs. Joshua Kline, Bre Dhaliwal, Bill Lynne and colleagues, with an educational henna from [employer]. Thrive Questionnaire Date Thrive assessed: 04/11/25 I am a: Patient What is your living situation today?: I have a steady place to live Within the past 12 months, did the food you bought not last and you didn't have the money to get more?: Never true Within the past 12 months, did you worry whether your food would run out before you got money to buy more?: Never true Do you have trouble paying for medicines?: No Do you have trouble getting transportation to medical appointments?: No Do you have trouble paying your heating and electricity bill?: No Do you have trouble taking care of your child, family member or friend?: No Do you have trouble with day-to-day activities such as bathing, preparing meals, shopping, managing finances, etc.?: No Are you currently unemployed and looking for a job?: No Are you interested in more education?: No Please select the resources that you would like help with: None Currently or been in a relationship where the following occur: No concerns reported THRIVE Score: 0 AUDIT C Alcohol Use Questionnaire (AUDIT-C) 1. How often do you have a drink containing alcohol?: Never 3. How often do you have six or more drinks on one occasion?: Never Total Score: 0 Score Reviewed/Action Taken: No LUDWIN-7 AMB Questionnaire LUDWIN-7 Date LUDWIN - 7 assessed: 04/11/25 Feeling nervous, anxious, or on edge: 0 = Not at all Not being able to stop or control worryin = Not at all Worrying too much about different things: 0 = Not at all Trouble relaxin = Not at all Being so restless that it is hard to sit still: 0 = Not at all Becoming easily annoyed or irritable: 0 = Not at all Feeling afraid as if something awful might happen: 0 = Not at all Total LUDWIN-7 score (0-4 normal; 5-9 mild; 10-14 moderate; 15-21 severe): 0 Source: Developed by Drs. Joshua Kline, Bre Dhaliwal, Bill Lynne and colleagues, with an educational henna from [employer]. LUDWIN-7 Assessment Billing LUDWIN-7 Assessment Tool: LUDWIN-7 Assessment 40708 Review of Systems Const Details: - Cardiovascular: Reports atrial fibrillation. Denies chest pain. - Musculoskeletal: Reports chronic pain in shoulders, hands, and feet. Denies recent trauma. - Endocrine: Reports fluctuating blood glucose levels. - Genitourinary: Reports stress urinary incontinence. All systems reviewed & are unremarkable except as noted in HPI and below Physical exam (Primary Care) Vital Signs: Last Vital Signs Temp 96.8 F 04/11/25 14:40 Pulse 71 04/11/25 14:40 Resp 20 04/11/25 14:40 BP 96/66 04/11/25 14:40 Pulse Ox 99 04/11/25 14:40 Oxygen Delivery Method Room Air 04/11/25 14:40 Care Plan Goal for BP management: <140/90 at Goal BMI result Body Mass Index 27.3 BMI Assessment/Plan discussion: High BMI High, discussed plan: lifestyle, weight reduction, dietary, physical activity and alcohol moderation Tobacco/Smoking Status: Tobacco use Status Tobacco use date assessed 04/11/25 04/11/25 14:32 Patient Tobacco Use Status Former Tobacco user 04/11/25 14:32 Tobacco use type Cigarette 04/11/25 14:32 PHQ-9: PHQ-9 Score PHQ-9: Total score 0 04/11/25 15:38 Depression Screening Interpretation: Negative Thrive Assessment: Date of Thrive Assessment Date Thrive assessed 04/11/25 04/11/25 14:32 Currently or been in a relationship where the following occur: No concerns reported Const Other: Appearance: Alert. Oriented X3. No acute distress. Head: Normal external exam. Normocephalic. Atraumatic. Eyes: Pupils are equal, round, and reactive to light. Extraocular movements intact. Conjunctiva and sclera normal. Eyelids normal. Throat: Pharynx normal. Uvula midline. Moist mucous membranes. Neck: Normal inspection. Neck supple. Full range of motion. No adenopathy. Thyroid Normal. No meningeal signs. No neck mass noted. Cardiovascular: Normal heart rate and rhythm. Heart sound normal. No murmurs noted. Pulses normal throughout. Dual chamber [employer]. Solis Pacemaker in place, programmed in DDI. Underlying atrial fibrillation, ventricular pacing thresholds excellent, and in auto-capture mode. Ventricular sensing is excellent. Pacing lead, impedance is stable. Battery life is excellent. Respiratory: No respiratory distress. Painless inspiration. Breath sounds normal. No wheezes/rales/rhonchi noted. Chest nontender. No accessory muscle usage noted or decreased air movement noted. Abdomen: Soft and nontender. No distention noted. No organomegaly noted. Back: Full range of motion noted. Skin: Skin warm and dry. Normal skin color. Normal skin turgor. Patient has large squamous cell carcinoma lesion to left forehead/eyebrow area chronic drainage noted. No acute infection is noted. No additional lesions, wounds or lacerations noted. Extremities: Extremities exhibit normal range of motion. Bilateral +2 lower extremity swelling. No calf tenderness is noted bilaterally. Neuro: Oriented X 3. No motor deficit. No sensory deficit. Reflexes normal. Results AMB Hemoglobin A1c AMB Hemoglobin A1c 7.3 % Last Edit by IRVING Villanueva on 04/11/25 15:37 Results Reviewed Results Reviewed: Laboratory Last Values Hgb A1c (Clinic) 7.3 % (4.0-6.0) H 04/11/25 15:35 - Labs: A1c 7.3, down from 7.5 in September Coding Level of Care Code New Pt Level 4 (28914) Complex EM visit Add On G2211 Diagnoses Squamous cell carcinoma of skin of face C44.320 Atrial fibrillation I48.91 Type 2 diabetes mellitus with hemoglobin A1c goal of less than 7.0% E11.9 Arthritis M19.90 History of prostate cancer Z85.46 Additional Codes PHQ-9 - 40121 - PHQ-9 Billing: Yes ([id number]) LUDWIN-7 Assessment Billing - LUDWIN-7 Assessment Tool: LUDWIN-7 Assessment 32251 ([id number]) Time Spent (min) 50 Assessment & Plan Assessment & Plan (1) Squamous cell carcinoma of skin of face: Code(s): C44.320 - Squamous cell carcinoma of skin of unspecified parts of face Category: Medical Plan: The patient will follow up with the oncologist for further management of the unresectable squamous cell carcinoma of the face. Previous neoadjuvant immunotherapy was discontinued after two doses due to lack of perceived efficacy. (2) Atrial fibrillation: Comment: On Eliquis Code(s): I48.91 - Unspecified atrial fibrillation Category: Medical Plan: The patient is currently managed with a dual chamber [employer]. Solis Pacemaker and Eliquis 2.5 mg twice daily for anticoagulation. (3) Type 2 diabetes mellitus with hemoglobin A1c goal of less than 7.0%: Code(s): E11.9 - Type 2 diabetes mellitus without complications Category: Medical Plan: The patient's diabetes is managed with Novolog insulin and Tresiba, with a recent A1c of 7.3. The insulin regimen was adjusted to a sliding scale with a recommendation to increase Novolog to 10 units three times a day. (4) Arthritis: Code(s): M19.90 - Unspecified osteoarthritis, unspecified site Category: Medical Plan: The patient reports chronic pain due to arthritis and has discontinued oxycodone due to lack of efficacy. He is currently on pregabalin and will be referred to pain management for further evaluation and management. (5) History of prostate cancer: Code(s): Z85.46 - Personal history of malignant neoplasm of prostate Category: Medical Plan: The patient underwent prostatectomy for prostate cancer and is experiencing stress urinary incontinence. He recently had a Proact DST CS procedure and will follow up with urology. Plan Plan Patient was informed and verbally consented to the use of an ambient scribe for clinic note documentation during this visit. 1. Squamous Cell Carcinoma Of The Face The patient will follow up with the oncologist for further management of the unresectable squamous cell carcinoma of the face. Previous neoadjuvant immunotherapy was discontinued after two doses due to lack of perceived efficacy. 2. Atrial Fibrillation The patient is currently managed with a dual chamber [employer]. Solis Pacemaker and Eliquis 2.5 mg twice daily for anticoagulation. 3. Diabetes Mellitus The patient's diabetes is managed with Novolog insulin and Triceba, with a recent A1c of 7.3. The insulin regimen was adjusted to a sliding scale with a recommendation to increase Novolog to 10 units three times a day. 4. Arthritis The patient reports chronic pain due to arthritis and has discontinued oxycodone due to lack of efficacy. He is currently on pregabalin and will be referred to pain management for further evaluation and management. 5. Prostate Cancer (Status Post Prostatectomy) The patient underwent prostatectomy for prostate cancer and is experiencing stress urinary incontinence. He recently had a Proact DST CS procedure and will follow up with urology. During the visit, we discussed the management of the patient's chronic conditions, including the need for follow-up with oncology for his squamous cell carcinoma and adjustments to his diabetes management plan. We also addressed the discontinuation of oxycodone for arthritis pain and the referral to pain management for alternative therapies. Orders: Orders Comprehensive [place]. Panel Fast Today Z00.00 - Encounter for general adult medical examination without abnormal findings Liver Panel Today Z00.00 - Encounter for general adult medical examination without abnormal findings TSH reflex Free T4 Today Z00.00 - Encounter for general adult medical examination without abnormal findings Complete Blood Count Auto Diff Today Z00.00 - Encounter for general adult medical examination without abnormal findings Magnesium Today Z00.00 - Encounter for general adult medical examination without abnormal findings C Reactive Protein Today Z00.00 - Encounter for general adult medical examination without abnormal findings Vitamin B12 and Folate Today Z00.00 - Encounter for general adult medical examination without abnormal findings Lipid Panel Today Z00.00 - Encounter for general adult medical examination without abnormal findings Vitamin D 25-OH Total Today Z00.00 - Encounter for general adult medical examination without abnormal findings AMB Hemoglobin A1c Today E16.0 - Drug-induced hypoglycemia without coma, T38.3X5A - Adverse effect of insulin and oral hypoglycemic [antidiabetic] drugs, initial encounter Referrals Pain Management Referral M19.90 - Unspecified osteoarthritis, unspecified site Addiction Medicine Referral M19.90 - Unspecified osteoarthritis, unspecified site Medications: New blood-glucose,real time analyst,cont (FreeStyle Rob 3 [place]) Check glucose 3 times a day with meals 1 ea 0RF blood-glucose sensor (FreeStyle Rob 3 Sensor device) Check glucose 3 times a day with meals 1 ea 0RF E11.9 - Type 2 diabetes mellitus without complications blood-glucose,real time analyst,cont (FreeStyle Rob 3 [place]) Check glucose 3 times a day with meals 1 ea 0RF blood-glucose sensor (FreeStyle Rob 3 Sensor device) Check glucose 3 times a day with meals 1 ea 0RF E11.9 - Type 2 diabetes mellitus without complications cyclobenzaprine 10 mg PO Q8H 30 tabs 0RF Patient Instructions: - Follow up with oncology for further management of squamous cell carcinoma. - Continue taking Eliquis as prescribed for atrial fibrillation. - Adjust Novolog insulin to 10 units three times a day as discussed. - Attend pain management appointment for arthritis evaluation. - Follow up with urology as scheduled for stress urinary incontinence.
[2025-04-11 14:40] VITALS: BP 96/66; PULSE 71; RESP 20; TEMP 36; O2SAT 99; BMI 27.3
--- OUTSIDE RECORDS SUMMARY | 2025-04-11 15:44 | XMS_ITS | Encounter Summary ---
Author Organization [facility] [place] [address] Care Team Providers Care Waxing Machine Operator Name Role Phone Jewel Rebolledo MD Primary Care Provider [phone] Encounter Details Date Type Department Care Team (Late st Contact Info) Description 01/09/2025 Lab Requisition [facility] - Main Lab [address] [facility] [place] [address] Sreekanth Lobato MD [address] [facility] [address] [place] [address] Intrinsic sphincter deficiency (ISD); Urinary [...] Escherichia coli(A) SAHRA 01/13/2025 11:16 AM EDT [facility] Culture, Urine 10,000-49,000 CFU/mL Enterococcus faecium(A) SAHRA 01/13/2025 11:16 AM EDT [facility] Comment: Edited result: Previously reported as Gram Positive Cocci on 01/11/2025 at 0921 EDT. Urine Urine specimen obtained by clean catch procedure / Unknown 01/09/2025 01/09/2025 6:08 PM EDT Narrative [facility] - 01/13/2025 11:16 AM EDT [...] MICROBIOLOGY - GENERA L ORDERABLES Final Result [facility] [address] [place] [address], documented in this encounter Visit Diagnoses Diagnosis Intrinsic sphincter deficiency (ISD) Urinary tract infection, site not specified documented in this encounter Care Teams Waxing Machine Operator Relationship Specialty Start Date End Date Jewel Rebolledo MD [address] [place], [place] PCP - General 09/25/22 documented as of this encounter
--- OUTSIDE RECORDS SUMMARY | 2025-04-11 15:44 | XMS_ITS | Encounter Summary ---
Author Organization [facility] Address [address] [place] [address] Care Team Providers Care Salesperson Women'S Dresses Name Role Phone Pcp, No Primary Care Provider Unavailabl e Encounter Details Date Type Department Care Team (Late st Contact Info) Description 09/29/2022 Scanned Document [facility] Urologic Surgery [address] [place] [address] Sreekanth Lobato MD Social History [...] on filedocumented in this encounter Care Teams Salesperson Women'S Dresses Relationship Specialty Start Date End Date Pcp, No PCP - General General Medicine 08/19/23 documented as of this encounter
--- OUTSIDE RECORDS SUMMARY | 2025-04-11 15:45 | XMS_ITS | Encounter Summary ---
Author Organization [facility] Address [address] [facility] [address] [place] [phone] Phone Care Team Providers Care Interior Systems Carpenter Name Role Phone Jewel Rebolledo MD Primary Care Provider [phone] Pcp, Not Required Unavailable Unavailable Wade Seo DO, Justine Unavailable [phone] Luis Aly MD Unavailable [phone] Hodan Rodriguez MD, MPH Unavailable [phone] Encounter Details Date Type Department Care Team (Late st Contact Info) Description 12/08/2024 Procedure Pass [facility], Ct Scan - [facility] [address] [place] [address] Social History Tobacco Use Types Packs/Day Years [...] [facility] [address] [facility] 5th [place] [address] Hodan Rodriguez MD, MPH [facility] [address] [email or web address] documented as of this encounter Visit Diagnoses Not on filedocumented in this encounter Care Teams Interior Systems Carpenter Relationship Specialty Start Date End Date Jewel Rebolledo MD [address] [place] [phone] PCP - General Internal Medicine 12/08/24 Pcp, Not Required [address] [place] [address] 12/08/24 Serenity Olvera DO [address] [place] [id number] [email or web address] Medical Oncology 12/26/24 Luis Aly MD [address] [place] [phone] [email or web address] Medical Oncology 12/26/24 Hodan Rodriguez MD, MPH [address] [place] [phone] [email or web address] Dermatology 12/26/24 documented as of this encounter Additional Source Comments The information contained in this document represents components of the legal health record. It is not the complete legal health record.[facility]
== END 2025-04-11 15:48 | disposition home or self-care (01) ==
LOC: HO.HMCSH 14:25
PROVIDERS: Visit Provider Physician Assistant Medical
DX: C44.320 Squamous cell carcinoma of skin of unspecified parts of face (principal); I48.91 Unspecified atrial fibrillation; E11.9 Type 2 diabetes mellitus without complications; M19.90 Unspecified osteoarthritis, unspecified site; Z85.46 Personal history of malignant neoplasm of prostate; E16.0 Drug-induced hypoglycemia without coma; T38.3X5A Adverse effect of insulin and oral hypoglycemic [antidiabetic] drugs, initial encounter

== ENCOUNTER → 2025-04-11 14:25 | Outpatient (BNVA) | payer MEDICARE, SELFPAY | PROVIDERS: Visit Provider Physician Assistant Medical | DX: C44.320 Squamous cell carcinoma of skin of unspecified parts of face (principal); I48.91 Unspecified atrial fibrillation; E11.9 Type 2 diabetes mellitus without complications; M19.90 Unspecified osteoarthritis, unspecified site; Z85.46 Personal history of malignant neoplasm of prostate | CPT/HCPCS: 83036; 96127; 99202 ==

== ENCOUNTER 2025-04-17 14:33 | Outpatient (AMB) | payer MEDICARE, SELFPAY ==
[2025-04-17 15:00] VITALS: BP 132/78; PULSE 94; O2SAT 95; BMI 27.2
--- NOTE | 2025-04-17 15:00 | A.OFFVIS_ITS ---
Vital Signs 04/17/25 15:00 Height 5 ft 4.7 in Weight 162 lb BMI 27.2 BP 132/78 Pulse 94 Pulse Oximetry (%) 95 Intake Visit Reasons: MAT Intake Allergies No Known Allergies Allergy (Mild, Verified 04/17/25 15:01) N/A [facility] Medical History (Updated 04/17/25 @ 16:26 by Monica Carrillo MD) Chronic pain syndrome Cough Type 2 diabetes mellitus with hemoglobin A1c goal of less than 7.0% Atrial fibrillation Squamous cell carcinoma of skin of face Arthritis Persistent atrial fibrillation Acute on chronic diastolic (congestive) heart failure Urinary tract infection due to Pseudomonas aeruginosa Recurrent UTI History of prostate cancer Acute retention of urine COVID-19 vaccine series completed History of cardioversion Hx of Lyme disease Tubular adenoma of colon History of ST elevation myocardial infarction (STEMI) (HFpEF) heart failure with preserved ejection fraction Cardiac pacemaker in situ (~12/2020) Hepatorenal syndrome Symptomatic bradycardia Ventricular bigeminy Thrombocytopenia PVC (premature ventricular contraction) CHF exacerbation Bifascicular block Pancytopenia Prostate CA Myocardial infarct, old CAD (coronary artery disease) HLD (hyperlipidemia) Diabetes HTN (hypertension) Surgical History History of colonoscopy History of cervical spinal surgery History of radical prostatectomy History of left inguinal hernia repair History of total right knee replacement (TKR) History of lumbar discectomy History of cardiac pacemaker (~12/2020) Family History Father Stromal tumor of the stomach Mother Diabetes Social History Household Members: Spouse Household Members Other:: 1 Housing: House Are you a primary foster care case manager to a significant other at home: No Do you presently have visiting nurse or other home services: Yes Alcohol intake: current Alcohol intake frequency: does not drink Alcohol type: wine Patient Tobacco Use Status: Former Tobacco user Tobacco use type: Cigarette Second Hand Smoke Exposure: No Advance Directives Date on File: 01/04/23 service: Yes Current occupational status: retired Cognitive needs: Yes (walker) Hearing needs: No Vision needs: Yes (reading/cheaters) Review of Systems Const All systems reviewed & are unremarkable except as noted in HPI and below Physical Exam Vital Signs: Last Vital Signs Pulse 94 04/17/25 15:00 BP 132/78 04/17/25 15:00 Pulse Ox 95 04/17/25 15:00 BMI result Body Mass Index 27.2 Const General: cooperative Resp Effort & Inspection: normal respiratory effort Cardio Rate: regular rate GI Inspection: Yes normal to inspection Skin Other: multiple skin lesions on head Assessment & Plan Assessment & Plan (1) Chronic pain syndrome: Code(s): G89.4 - Chronic pain syndrome Category: Medical Plan He has chronic pain disorder,not opioid use disorder (no cravings,disruption to daily activities seeking substance or withdrawal) He has no relief from oxycodone or gabapentin and partial relief from pregabalin. Suboxone would not be helpful in absence of opioid use disorder. Pain management may be helpful or Orthopedics ?more injections. No further appointments made. Coding Level of Care Code New Pt Level 4 (18012) Diagnoses Chronic pain syndrome G89.4 MAT Intake Nursing Intake Reason for visit: chronic pain What are you taking?: last dosed oxycodone 15 mg qid,120 30 day on 01/20 Dr Rebolledo,now pregablin 150 #120 When was your last use?: no oxyn How much?: n/a What is your source of income?: social security What is your current relationship status?: Current PCP: Dr Slade Substance Abuse History Substance Abuse History (includes route, frequency and quantity): Other (took oxys for pain) Age of first use: 60s Details: He has taken oxycodone for pain and stopped in January with no withdrawal. He found them ineffective for pain relief. Social History Domestic Violence concerns: none Do you have a support system?: Current mode of transportation?: car IV Drug Use Have you ever shared needles?: No Recovery History Have you had any periods of recovery?: No Behavioral Health History Do you have a current provider? If so, who?: none diagnosis: none History of self harming thoughts?: No History of homicidal or suicidal intentions?: No Medical Conditions Endocarditis?: No Skin Infection: No Seizure related to withdrawal or overdose: No Head or brain injury: No Hepatitis A (if yes, have you been treated?): No Hepatitis B (if yes, have you been treated?): No HIV (if yes, have you been treated?): No
--- OUTSIDE RECORDS SUMMARY | 2025-04-17 16:15 | XMS_ITS | Encounter Summary ---
Author Organization [facility] [place] [address] Care Team Providers Care Marketing Budget Analyst Name Role Phone Jewel Rebolledo MD Primary Care Provider [phone] Encounter Details Date Type Department Care Team (Latest Contact Info) Description 06/27/[address] [facility] - Main Lab [address] [facility] [place] [address] Lamonte Sagastume MD [address] [place] [address] 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 (CMS/HCC V24, CMS/HCC V28); Unspecified fall, initial encounter; Type 2 diabetes mellitus without complications (CMS/HCC V24, CMS/HCC V28) Social History Tobacco Use Types Packs/Day Years Used Date Smoking Tobacco: Never Assessed Sex and Gender Information Value Date Recorded Sex Assigned at Not on file Legal Sex Male 2:37 AM EST Gender Identity Not on file Sexual Orientation Not on file documented as of this encounter Plan of Treatment Upcoming Encounters Date Type Department Care Team (Late st Contact Info) Description 04/21/2025 11:30 AM EDT Appointment [facility] Infusion Center [address] [address] documented as of this encounter Procedures Procedure Name Priority Date/Time Associated Diagnosis Comments COMPLETE BLOOD COUNT Routine 06/27/2024 4:47 AM EST 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 ([facility]/HCC) Unspecified fall, initial encounter Type 2 diabetes mellitus without complications ([facility]) BASIC METABOLIC PANEL Routine 06/27/2024 4:47 AM EST 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 ([facility]) Unspecified fall, initial encounter Type 2 diabetes mellitus without complications ([facility]) documented in this encounter Results * (ABNORMAL) Complete blood count (06/27/2024 4:47 AM EST) WBC 5.6 4.8 - 10.8 K/mcL LAB HEMETOLOGY METHOD 06/27/2024 11:31 AM [facility] RBC 3.50(L) 4.50 - 5.50 M/mcL LAB HEMETOLOGY METHOD 06/27/2024 11:31 AM [facility] Hemoglobin 9.7(L) 13.5 - 17.5 g/dL LAB HEMETOLOGY METHOD 06/27/2024 11:31 AM [facility] Hematocrit 31.4(L) 42.0 - 54.0 % LAB HEMETOLOGY METHOD 06/27/2024 11:31 AM [facility] MCV 90.0 79.0 - 98.0 FL LAB HEMETOLOGY METHOD 06/27/2024 11:31 AM [facility] MCH 27.8 27.0 - 32.0 pcg LAB HEMETOLOGY METHOD 06/27/2024 11:31 AM [facility] MCHC 30.9(L) 32.0 - 37.0 g/dL LAB HEMETOLOGY METHOD 06/27/2024 11:31 AM [facility] RDW 17.8(H) 11.0 - 15.0 % LAB HEMETOLOGY METHOD 06/27/2024 11:31 AM EST [facility] Platelets 158 130 - 400 K/mcL LAB HEMETOLOGY METHOD 06/27/2024 11:31 AM EST [facility] MPV 10.5 7.0 - 11.0 FL LAB HEMETOLOGY METHOD 06/27/2024 11:31 AM [facility] NRBC 0.0 <1.0 % LAB HEMETOLOGY METHOD 06/27/2024 11:31 AM [facility] NRBC Absolute 0.00 <0.10 K/mcL LAB HEMETOLOGY METHOD 06/27/2024 11:31 AM [facility] Blood Venous blood specimen / Unknown Venipuncture / Unknown 06/27/2024 4:47 AM EST 06/27/2024 10:54 AM EST us Lamonte Sagastume MD LAB BLOOD ORDERABLES Final Res ult [facility] [address] [place] [address], * (ABNORMAL) Basic metabolic panel (06/27/2024 4:47 AM EST) Sodium 140 133 - 145 mmol/L LAB CHEMISTRY METHOD 06/27/2024 11:34 AM [facility] Potassium 4.1 3.5 - 5.5 mmol/L LAB CHEMISTRY METHOD 06/27/2024 11:34 AM [facility] Chloride 103 96 - 110 mmol/L LAB CHEMISTRY METHOD 06/27/2024 11:34 AM [facility] CO2 33(H) 21 - 32 mmol/L LAB CHEMISTRY METHOD 06/27/2024 11:34 AM [facility] Anion Gap 4 3 - 11 LAB CHEMISTRY METHOD 06/27/2024 11:34 AM [facility] Glucose 94 70 - 100 mg/dL LAB CHEMISTRY METHOD 06/27/2024 11:34 AM [facility] BUN 51(H) 5 - 25 mg/dL LAB CHEMISTRY METHOD 06/27/2024 11:34 AM [facility] Creatinine 0.96 0.70 - 1.30 mg/dL LAB CHEMISTRY METHOD 06/27/2024 11:34 AM [facility] eGFR 77 >=60 mL/min/1. 73m2 LAB CHEMISTRY METHOD 06/27/2024 11:34 AM [facility] Comment:Calculation based on the Chronic Kidney Disease Epidemiology Collaboration (CKD-EPI) equation refit without adjustment for race. BUN/Creatinine Ratio 53.1 LAB CHEMISTRY METHOD 06/27/2024 11:34 AM [facility] Calcium 9.1 8.5 - 10.5 mg/dL LAB CHEMISTRY METHOD 06/27/2024 11:34 AM [facility] Blood Venous blood specimen / Unknown Venipuncture / Unknown 06/27/2024 4:47 AM EST 06/27/2024 10:54 AM EST us Lamonte Sagastume MD LAB BLOOD ORDERABLES Final Res ult [facility] [address] [place] [address], documented in this encounter Visit Diagnoses Diagnosis 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 (CMS/HCC V24, CMS/HCC V28) Unspecified fall, initial encounter Type 2 diabetes mellitus without complications (CMS/HCC V24, CMS/HCC V28) documented in this encounter Care Teams Marketing Budget Analyst Relationship Specialty Start Date End Date Jewel Rebolledo MD [address] [place] [address] PCP - General 09/25/22 documented as of this encounter
--- OUTSIDE RECORDS SUMMARY | 2025-04-17 16:15 | XMS_ITS | Encounter Summary ---
Author Organization [facility] [place] [address] Care Team Providers Care Pump Mechanic Name Role Phone Jewel Rebolledo MD Primary Care Provider [phone] Encounter Details Date Type Department Care Team (Latest Contact Info) Description 06/28/2024 Lab Requisition [facility] - Main Lab [address] [place] [phone] Lamonte Sagastume MD [address] [place] [address] Type 2 diabetes mellitus without complications (CMS/HCC [...] Info) Description 04/21/2025 11:30 AM EDT Appointment [facility] [address] [phone] documented as of this encounter Procedures Procedure Name Priority Date/Time Associated Diagnosis Comments COMPLETE BLOOD COUNT Routine 06/28/2024 6:01 AM EST Type 2 diabetes mellitus without complications (CMS/[facility]) PHOSPHORUS Routine 06/28/2024 6:01 AM EST Type [...] LAB CHEMISTRY METHOD 06/28/2024 2:[address] [facility] Blood Venous blood specimen / Unknown Venipuncture / Unknown 06/28/2024 6:01 AM EST 06/28/2024 11:11 AM EST Lamonte Sagastume MD LAB BLOOD ORDERABLES Final Res ult Performing Organization Address [facility]/ZIP Co de Phone Number [facility] [address] [place] [address], [place] [phone] * Phosphorus (06/28/2024 6:01 AM EST) Phosphorus 2.9 2.5 - 4.5 mg/dL LAB CHEMISTRY METHOD 06/28/2024 2:[address] [facility] Blood Venous blood specimen / Unknown Venipuncture / Unknown 06/28/2024 6:01 AM EST 06/28/2024 11:11 AM EST Lamonte Sagastume MD LAB BLOOD ORDERABLES Final Res ult [facility] [address] [place] [address], [place] [phone] * (ABNORMAL) Complete blood count (06/28/2024 6:01 AM EST) [facility] WBC 5.4 4.8 - 10.8 K/mcL LAB HEMETOLOGY METHOD 06/28/2024 12:41 PM [facility] RBC 3.60(L) 4.50 - 5.50 M/mcL LAB HEMETOLOGY METHOD 06/28/2024 12:41 PM [facility] Hemoglobin 9.7(L) 13.5 - 17.5 [...] MD LAB BLOOD ORDERABLES Final Res ult [facility] [address] [place] [address], * (ABNORMAL) Comprehensive metabolic panel (06/28/2024 6:01 [...] [facility] Comment:Calculation based on the Chronic Kidney Disease Epidemiology Collaboration (CKD-EPI) equation refit without adjustment for race. BUN/Creatinine Ratio 46.1 LAB [...] AM EST 06/28/2024 11:11 AM EST us Laomnte Sagastume MD LAB BLOOD ORDERABLES Final Res ult [facility] [address] [place] [address], documented in this encounter Visit Diagnoses Diagnosis Type 2 diabetes mellitus without complications (CMS/HCC V24, CMS/HCC V28) documented in this encounter Care Teams Pump Mechanic Relationship Specialty Start Date End Date Jewel Rebolledo MD [address] [place] [address] PCP - General 09/25/22 documented as of this encounter
--- OUTSIDE RECORDS SUMMARY | 2025-04-17 16:15 | XMS_ITS | Clinical Summary ---
Author Organization [address] [facility] Address [address] [place] [address] Phone Care Team Providers Care Air Battle Manager Name Role Phone Jewel Rebolledo MD Primary Care Provider [phone] Allergies Active Allergy Reactions Criticality Noted Date Comments Naproxen 12/10/2017 Medications ammonium lactate (LAC-HYDRIN) 12 % lotion Apply topically. Act leslie acetaminophen (TylenoL) 325 mg tablet Take 2 tablets (650 mg total) by mouth. 2 Active Eliquis 2.5 mg tablet 5 Active atorvastatin (LIPITOR) 40 mg tablet 2 Active budesonide-form oteroL (SYMBICORT) 80-4.5 mcg/actuation inhaler Inhale by mouth. Act leslie insulin aspart (NovoLOG) 100 unit/mL injection as directed Subcutaneous Active insulin lispro 100 unit/mL injection Inject under the skin. 2 Active pregabalin (LYRICA) 150 mg capsule Take 1 capsule (150 mg total) by mouth 2 (two) times a day. 2 Active torsemide (DEMADEX) 20 mg tablet 5 Active zolpidem (AMBIEN) 10 mg tablet Take 1 tablet (10 mg total) by mouth at bedtime as needed. Active oxyCODONE (ROXICODONE) 15 mg immediate release tablet Activ e OLANZapine (ZyPREXA) 2.5 mg tablet TAKE 1 TABLET BY MOUTH DAILY AT BEDTIME NEEDED FOR INSOMNIA Active metoprolol tartrate (LOPRESSOR) 50 mg tablet Take 1 tablet (50 mg total) by mouth 2 (two) times a day. 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 Encounters Date Type Department Care Team Description 03/20/2025 Lab Requisition [facility] - Main Lab 299 [facility] [place] [phone] Sreekanth Lobato MD Urinary tract infection, site not specified 02/22/2025 Telephone [facility] Hematology Oncology [address] [place] [address] [phone] Jack Russell MD 02/16/2025 Telephone [facility] [address] [place] [address] [phone] Katie Mosqueda RN 01/31/2025 11:21 AM EDT - 01/31/2025 11:59 PM EDT Hospital Encounter [facility] [address] [place] [address] [phone] 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); Squamous cell carcinoma of skin of face Discharge Disposition: Home or Self Care 01/26/2025 11:45 AM EDT Office Visit [facility] Hematology Oncology [address] [place] [address] [phone] Jack Russell MD 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); Hypothyroidism due to drugs from Last 3 Months Social History Tobacco Use Types Packs/Day Years Used Date Smoking Tobacco: Former Cigarettes Smokeless Tobacco: Never Alcohol Use Standard Drinks/Week Comments Not Currently 0 (1 standard drink = 0.6 oz pur e alcohol) Sex and Gender Information Value Date Recorded Sex Assigned at Not on file Legal Sex Male 2:37 AM EST Gender Identity Not on file Sexual Orientation Not on file Obstetrics History Last Filed Vital Signs Vital Sign Reading Time Taken Comments Blood Pressure 118/71 01/31/2025 11:32 AM EDT Pulse 70 01/31/2025 11:32 AM EDT Temperature 36.8 C (98.2 F) 01/31/2025 11:32 AM EDT Respiratory Rate 18 01/31/2025 11:3 2 AM EDT Oxygen Saturation 99% 01/31/2025 11: 32 AM EDT Inhaled Oxygen Concentration - - Weight 74.3 kg (163 lb 12.8 oz) 025 11:43 AM EDT Height 167.6 cm (5' 6 ) 01/26/2025 11:4 3 AM EDT Body Mass Index 26.44 01/26/2025 11:43 AM EDT Plan of Treatment Upcoming Encounters Date Type Department Care Team (Late st Contact Info) Description 04/21/2025 11:30 AM EDT Appointment [facility] [address] [facility] 2nd [place] [address] Health Maintenance Due Date Last Done Comments Diabetes: Annual Foot Exam 1945 Diabetes: Annual Retina Eye Exam 1945 RSV Immunization Adult Patients (1 - 1-dose 75+ series) 2012 Pneumococcal Vaccine: 50+ Years (2 of 2 - PCV) 03/11/2022 03/11/2021 Cholesterol Screening (Lipid Panel) 07/27/2022 Medicare Annual Wellness Visit 07/27/2022 Social Influencers of Health Screening 07/27/2022 COVID-19 Vaccine ( season) 2024 06/14/2021, 10/24/2020, 10/03/2020 Depression Screening 08/24/2024 Diabetes: Blood Sugar Control Test (HGBA1C) 11/28/2024 Influenza Vaccine (#1) 2025 , 05/26/2023, 05/20/2022, Additional history exists Falls Risk Assessment 01/10/2026 01/10/2025 Hypertension/CHF/CAD Annual BMP Blood Test 01/31/2026 01/31/2025, 01/04/2025, 12/15/2024, Additional history exists DTaP,Tdap,and Td Vaccines (2 - Td or Tdap) 04/11/2030 04/11/2020 Zoster Vaccines Completed 06/05/2021, 02/22/2021 HIB Vaccines Aged Out No longer eligi [...] age to complete this topic Meningococcal B Vaccine Aged Out No l onger eligible based on patient's age to complete this topic RSV Immunization Patients Under 20 months Aged Out No longer eligible based on patient's age to complete this topic Varicella Vaccines Aged Out No longer eligible based on patient's age to complete this topic Procedures Procedure Name Priority Date/Time Associated Diagnosis Comments URINALYSIS WITH REFLEX MICROSCOPIC Routine 03/20/2025 12:00 AM EDT Urinary tract infection, site not specified URINALYSIS WITH REFLEX MICROSCOPIC Routine 03/20/2025 12:00 AM EDT Urinary tract infection, site not specified CULTURE URINE Routine 03/20/2025 12:00 AM EDT Urinary tract infection, site not specified CBC WITH AUTO DIFFERENTIAL STAT 01/31/2025 12:04 PM EDT 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 MAGNESIUM STAT 01/31/2025 12:04 PM EDT 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 COMPREHENSIVE METABOLIC PANEL STAT 01/31/2025 12:04 PM EDT 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 CBC AND DIFFERENTIAL STAT 01/31/2025 12:04 PM EDT 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 THYROID STIMULATING HORMONE STAT 01/31/2025 12:04 PM EDT 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 from Last 3 Months Results * (ABNORMAL) Urinalysis with reflex microscopic (03/20/2025 12:00 AM EDT) Specific [place] Urine 1.020 1.003 - 1.030 LAB URINALYSIS - AUTOMATED METHOD 03/20/2025 8:48 PM [facility] pH, Urine 6.0 5.0 - 8.0 pH LAB URINALYSIS - AUTOMATED METHOD 03/20/2025 8:48 PM [facility] Leukocytes, Urine Negative Negative LAB URINALYSIS - AUTOMATED METHOD 03/20/2025 8:48 PM [facility] Nitrite, Urine Negative Negative LAB URINALYSIS - AUTOMATED METHOD 03/20/2025 8:48 PM [facility] Protein, Urine Negative <=Trace mg/dL LAB URINALYSIS - AUTOMATED METHOD 03/20/2025 8:48 PM [facility] Glucose, Urine >=1000(A) Negative mg/dL LAB URINALYSIS - AUTOMATED METHOD 03/20/2025 8:48 PM [facility] Ketones, Urine Negative Negative mg/dL LAB URINALYSIS - AUTOMATED METHOD 03/20/2025 8:48 PM [facility] Urobilinogen , Urine 0.2 0.2 - 1.0 mg/dL LAB URINALYSIS - AUTOMATED METHOD 03/20/2025 8:48 PM [facility] Bilirubin, Urine Negative Negative LAB URINALYSIS - AUTOMATED METHOD 03/20/2025 8:48 PM [facility] Blood, Urine Negative Negative LAB URINALYSIS - AUTOMATED METHOD 03/20/2025 8:48 PM [facility] RBC, Urine 1.6 0 - 4 /HPF LAB URINALYSIS - AUTOMATED METHOD 03/20/2025 8:48 PM [facility] WBC, Urine 1.8 0 - 4 /HPF LAB URINALYSIS - AUTOMATED METHOD 03/20/2025 8:48 PM EDT [facility] Squamous Epithelial, Urine >100(H) 0 - 60 /LPF LAB URINALYSIS - AUTOMATED METHOD 03/20/2025 8:48 PM EDT [facility] Non-Squamous Epithelial, Urine 2-5 Transitional epithelial cells. /LPF 03/20/2025 8:48 PM EDT [facility] Bacteria, Urine Negative Negative /HPF LAB URINALYSIS - AUTOMATED METHOD 03/20/2025 8:48 PM EDT [facility] Hyaline Casts, Urine 0 0 - 3 /LPF LAB URINALYSIS - AUTOMATED METHOD 03/20/2025 8:48 PM EDT [facility] Urine Urinary bladder structure / Unknown Non-blood Collection / Unknown 03/20/2025 03/20/2025 5:56 PM EDT us Sreekanth Lobato MD LAB URINE ORDERABLES Citlaly sarah Result [facility] [address] [place] [address], * (ABNORMAL) Culture urine (03/20/2025 12:00 AM EDT) Culture, Urine <1,000 CFU/mL Proteus mirabilis(A ) SAHRA 03/23/2025 8:28 AM EDT [facility] Comment: The organism value for this result has been updated. These results have been appended to the previously preliminary verified report. Edited result: Previously reported as Proteus species on 03/22/2025 at 1107 EDT. Urine Urinary bladder structure / Unknown Non-blood Collection / Unknown 03/20/2025 03/20/2025 5:56 PM EDT Narrative Organism Antibiotic Method Susceptibility Proteus mirabilis Ampicillin/Sulbactam SAHRA <=2 ug/ml: Susceptible Proteus mirabilis Piperacillin/Tazobactam SAHRA <=4 ug/ml: Susceptible Proteus mirabilis Cefazolin (Urine) SAHRA 4 ug/ml: Susceptible Proteus mirabilis Cefoxitin SAHRA 8 ug/ml: Susceptible Proteus mirabilis Ceftazidime SAHRA <=0.5 ug/ml: Susceptible Proteus mirabilis Ceftriaxone SAHRA <=0.25 ug/ml: Susceptible Proteus mirabilis Cefepime SAHRA <=0.12 ug/ml: Susceptible Proteus mirabilis Meropenem SAHRA 1 ug/ml: Susceptible Proteus mirabilis Amikacin SAHRA 4 ug/ml: Susceptible Proteus mirabilis Gentamicin SAHRA <=1 ug/ml: Susceptible Proteus mirabilis Ciprofloxacin SAHRA <=0.06 ug/ml: Susceptible Proteus mirabilis Levofloxacin SAHRA <=0.12 ug/ml: Susceptible Proteus mirabilis Nitrofurantoin SAHRA 128 ug/ml: Resistant Proteus mirabilis Trimethoprim/Sulfamethoxazole SAHRA <=20 ug/ml: Susceptible Sreekanth Lobato MD LAB MICROBIOLOGY - GENERA L ORDERABLES Final Result [facility] [address] [place] [address], * (ABNORMAL) CBC auto differential (01/31/2025 12:04 PM EDT) WBC 4.6(L) 4.8 - 10.8 K/mcL LAB HEMETOLOGY METHOD 01/31/2025 12:26 PM EDT [facility] RBC 3.80(L) 4.50 - 5.50 M/mcL LAB HEMETOLOGY METHOD 01/31/2025 12:26 PM EDT [facility] Hemoglobin 10.9(L) 13.5 - 17.5 g/dL LAB HEMETOLOGY METHOD 01/31/2025 12:26 PM EDT [facility] Hematocrit 34.6(L) 42.0 - 54.0 % LAB HEMETOLOGY METHOD 01/31/2025 12:26 PM [facility] MCV 91.1 79.0 - 98.0 FL LAB HEMETOLOGY METHOD 01/31/2025 12:26 PM [facility] MCH 28.7 27.0 - 32.0 pcg LAB HEMETOLOGY METHOD 01/31/2025 12:26 PM [facility] MCHC 31.5(L) 32.0 - 37.0 g/dL LAB HEMETOLOGY METHOD 01/31/2025 12:26 PM [facility] RDW 18.1(H) 11.0 - 15.0 % LAB HEMETOLOGY METHOD 01/31/2025 12:26 PM [facility] Platelets 105(L) 130 - 400 K/mcL LAB HEMETOLOGY METHOD 01/31/2025 12:26 PM [facility] MPV 10.2 7.0 - 11.0 FL LAB HEMETOLOGY METHOD 01/31/2025 12:26 PM [facility] NRBC 0.0 <1.0 % LAB HEMETOLOGY METHOD 01/31/2025 12:26 PM [facility] NRBC Absolute 0.00 <0.10 K/mcL LAB HEMETOLOGY METHOD 01/31/2025 12:26 PM [facility] Neutrophils Relative 69.5 % LAB HEMETOLOGY METHOD 01/31/2025 12:26 PM [facility] Lymphocytes Relative 15.5 % LAB HEMETOLOGY METHOD 01/31/2025 12:26 PM [facility] Monocytes Relative 9.8 % LAB HEMETOLOGY METHOD 01/31/2025 12:26 PM [facility] Eosinophils Relative 4.1 % LAB HEMETOLOGY METHOD 01/31/2025 12:26 PM [facility] Basophils Relative 0.7 % LAB HEMETOLOGY METHOD 01/31/2025 12:26 PM EDT [facility] Immature Granulocytes Relative 0.4 % LAB HEMETOLOGY METHOD 01/31/2025 12:26 PM EDT [facility] Neutrophils Absolute 3.18 1.50 - 7.00 K/mcL LAB HEMETOLOGY METHOD 01/31/2025 12:26 PM EDT [facility] Lymphocytes Absolute 0.71(L) 1.00 - 5.00 K/mcL LAB HEMETOLOGY METHOD 01/31/2025 12:26 PM EDT [facility] Monocytes Absolute 0.45 0.20 - 1.00 K/mcL LAB HEMETOLOGY METHOD 01/31/2025 12:26 PM EDT [facility] Eosinophils Absolute 0.19 0.00 - 0.50 K/mcL LAB HEMETOLOGY METHOD 01/31/2025 12:26 PM EDT [facility] Basophils Absolute 0.03 0.00 - 0.20 K/mcL LAB HEMETOLOGY METHOD 01/31/2025 12:26 PM EDT [facility] Immature Granulocytes Absolute 0.02 0.00 - 0.03 K/mcL LAB HEMETOLOGY METHOD 01/31/2025 12:26 PM EDT [facility] Blood Venous blood specimen / Unknown Venipuncture / Unknown 01/31/2025 12:04 PM EDT 01/31/2025 12:14 PM EDT us Subrambk Russell MD LAB BLOOD ORDERABLE S Final Result [facility] [address] [place] [address], * Thyroid stimulating hormone (01/31/2025 12:04 PM EDT) TSH 1.26 0.40 - 4.00 mcIU/mL LAB CHEMISTRY METHOD 01/31/2025 1:53 PM EDT [facility] Blood Venous blood specimen / Unknown Venipuncture / Unknown 01/31/2025 12:04 PM EDT 01/31/2025 12:14 PM EDT us Jack Russell MD LAB BLOOD ORDERABLE S Final Result Performing Organization Address [facility]/ZIP Co de Phone Number [facility] [address] [place] [address], [place] [phone] * Magnesium (01/31/2025 12:04 PM EDT) [facility] Magnesium 2.2 1.9 - 2.6 mg/dL LAB CHEMISTRY METHOD 01/31/2025 12:39 PM EDT [facility] Blood Venous blood specimen / Unknown Venipuncture / Unknown 01/31/2025 12:04 PM EDT 01/31/2025 12:14 PM EDT us Jack Russell MD LAB BLOOD ORDERABLE S Final Result Performing Organization Address [facility] de Phone Number [facility] [address] [place] [address], [place] [phone] * (ABNORMAL) Comprehensive metabolic panel (01/31/2025 12:04 PM EDT) [facility] Sodium 137 133 - 145 mmol/L LAB CHEMISTRY METHOD 01/31/2025 12:39 PM EDT [facility] Potassium 4.4 3.5 - 5.5 mmol/L LAB CHEMISTRY METHOD 01/31/2025 12:39 PM EDT [facility] Chloride 105 96 - 110 mmol/L LAB CHEMISTRY METHOD 01/31/2025 12:39 PM EDT [facility] CO2 27 21 - 32 mmol/L LAB CHEMISTRY METHOD 01/31/2025 12:39 PM [facility] Anion Gap 5 3 - 11 LAB CHEMISTRY METHOD 01/31/2025 12:39 PM [facility] Glucose 263(H) 70 - 100 mg/dL LAB CHEMISTRY METHOD 01/31/2025 12:39 PM [facility] BUN 31(H) 5 - 25 mg/dL LAB CHEMISTRY METHOD 01/31/2025 12:39 PM [facility] Creatinine 1.44(H) 0.70 - 1.30 mg/dL LAB CHEMISTRY METHOD 01/31/2025 12:39 PM [facility] eGFR 47(L) >=60 mL/min/1. 73m2 LAB CHEMISTRY METHOD 01/31/2025 12:39 PM [facility] Comment:Calculation based on the Chronic Kidney Disease Epidemiology Collaboration (CKD-EPI) equation refit without adjustment for race. BUN/Creatinine Ratio 21.5 LAB CHEMISTRY METHOD 01/31/2025 12:39 PM [facility] Calcium 9.1 8.5 - 10.5 mg/dL LAB CHEMISTRY METHOD 01/31/2025 12:39 PM [facility] AST (SGOT) 43(H) 10 - 42 unit/L LAB CHEMISTRY METHOD 01/31/2025 12:39 PM [facility] ALT (SGPT) 34 10 - 60 unit/L LAB CHEMISTRY METHOD 01/31/2025 12:39 PM [facility] Alkaline Phosphatase 159(H) 42 - 121 unit/L LAB CHEMISTRY METHOD 01/31/2025 12:39 PM [facility] Total Protein 6.8 6.0 - 8.0 g/dL LAB CHEMISTRY METHOD 01/31/2025 12:39 PM [facility] Albumin 2.7(L) 3.2 - 5.0 g/dL LAB CHEMISTRY METHOD 01/31/2025 12:39 PM [facility] Total Bilirubin 0.6 0.0 - 1.4 mg/dL LAB CHEMISTRY METHOD 01/31/2025 12:39 PM EDT [facility] Blood Venous blood specimen / Unknown Venipuncture / Unknown 01/31/2025 12:04 PM EDT 01/31/2025 12:14 PM EDT Jack Russell MD LAB BLOOD ORDERABLE S Final Result [facility] [address] [place] [address], [place] [phone] from Last 3 Months Insurance MEDICARE [facility] Advance Directives Documents on File Type Date 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
--- OUTSIDE RECORDS SUMMARY | 2025-04-17 16:15 | XMS_ITS ---
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 Radiation Treatments * No radiation treatments are documented for this patient in [facility]. Treatments may have been administered in another system.
--- OUTSIDE RECORDS SUMMARY | 2025-04-17 16:15 | XMS_ITS | Encounter Summary ---
Author Organization [place] [address] Care Team Providers Care Cotton Stomper Name Role Phone Jewel Rebolledo MD Primary Care Provider [phone] Encounter Details Date Type Department Care Team (Late Contact Info) Description 03/20/[address] [facility] - Main Lab [address] [facility] [place] [address] Sreekanth Lobato MD [address] [facility] [address] [place] [address] Urinary tract infection, site not specified Social [...] Encounters Date Type Department Care Team (Late Contact Info) Description 04/21/2025 11:30 AM EDT Appointment [facility] [address] [phone] documented as of this encounter Procedures Procedure Name Priority Date/Time Associated Diagnosis Comments URINALYSIS WITH REFLEX MICROSCOPIC Routine 03/20/2025 12:00 AM EDT Urinary tract infection, site not specified URINALYSIS WITH REFLEX MICROSCOPIC Routine 03/20/2025 12:00 AM EDT Urinary tract infection, site not specified CULTURE URINE Routine 03/20/2025 12:00 AM EDT Urinary tract infection, site not specified documented in this encounter Results * (ABNORMAL) Urinalysis with reflex microscopic (03/20/2025 12:00 AM EDT) Specific [place] Urine 1.020 1.003 - 1.030 LAB URINALYSIS - AUTOMATED METHOD 03/20/2025 8:48 PM [facility] pH, Urine 6.0 5.0 - 8.0 pH LAB URINALYSIS - AUTOMATED METHOD 03/20/2025 8:48 PM [facility] Leukocytes, Urine Negative Negative LAB URINALYSIS - AUTOMATED METHOD 03/20/2025 8:48 PM [facility] Nitrite, Urine Negative Negative LAB URINALYSIS - AUTOMATED METHOD 03/20/2025 8:48 PM [facility] Protein, Urine Negative <=Trace mg/dL LAB URINALYSIS - AUTOMATED METHOD 03/20/2025 8:48 PM [facility] Glucose, Urine >=1000(A) Negative mg/dL LAB URINALYSIS - AUTOMATED METHOD 03/20/2025 8:48 PM [facility] Ketones, Urine Negative Negative mg/dL LAB URINALYSIS - AUTOMATED METHOD 03/20/2025 8:48 PM [facility] Urobilinogen , Urine 0.2 0.2 - 1.0 mg/dL LAB URINALYSIS - AUTOMATED METHOD 03/20/2025 8:48 PM [facility] Bilirubin, Urine Negative Negative LAB URINALYSIS - AUTOMATED METHOD 03/20/2025 8:48 PM EDT [facility] Blood, Urine Negative Negative LAB URINALYSIS - AUTOMATED METHOD 03/20/2025 8:48 PM EDT [facility] RBC, Urine 1.6 0 - 4 /HPF LAB URINALYSIS - AUTOMATED METHOD 03/20/2025 8:48 PM EDT [facility] WBC, Urine 1.8 0 - 4 /HPF LAB URINALYSIS - AUTOMATED METHOD 03/20/2025 8:48 PM EDT [facility] Squamous Epithelial, Urine >100(H) 0 - 60 /LPF LAB URINALYSIS - AUTOMATED METHOD 03/20/2025 8:48 PM EDT [facility] Non-Squamous Epithelial, Urine 2-5 Transitional epithelial cells. /LPF 03/20/2025 8:48 PM EDT [facility] Bacteria, Urine Negative Negative /HPF LAB URINALYSIS - AUTOMATED METHOD 03/20/2025 8:48 PM EDT [facility] Hyaline Casts, Urine 0 0 - 3 /LPF LAB URINALYSIS - AUTOMATED METHOD 03/20/2025 8:48 PM EDT [facility] Urine Urinary bladder structure / Unknown Non-blood Collection / Unknown 03/20/2025 03/20/2025 5:56 PM EDT Sreekanth Lobato MD LAB URINE ORDERABLES Citlaly sarah Result [facility] [address] [place] [address], * (ABNORMAL) Culture urine (03/20/2025 12:00 AM EDT) Culture, Urine <1,000 CFU/mL Proteus mirabilis(A ) SAHRA 03/23/2025 8:28 AM EDT [facility] Comment: The organism value for this [...] Proteus mirabilis Trimethoprim/Sulfamethoxazole SAHRA <=20 ug/ml: Susceptible us Sreekanth Lobato MD LAB MICROBIOLOGY - GENERA L ORDERABLES Final Result [facility] ([facility]) [facility] [address] [place] [address], documented in this encounter Visit Diagnoses Diagnosis Urinary tract infection, site not specified documented in this encounter Care Teams Cotton Stomper Relationship Specialty Start Date End Date Jewel Rebolledo MD [address] [place] [address] PCP - General 09/25/22 documented as of this encounter
--- OUTSIDE RECORDS SUMMARY | 2025-04-17 16:15 | XMS_ITS | Encounter Summary ---
Author Organization [facility] [place] [address] Care Team Providers Care Take Out Waiter Name Role Phone Jewel Rebolledo MD Primary Care Provider [phone] Encounter Details Date Type Department Care Team (Late Contact Info) Description 01/09/2025 Lab Requisition [facility] - Main Lab [address] [facility] [place] [address] Sreekanth Lobato MD 100 [facility] 120 [place] [address] Intrinsic sphincter deficiency (ISD); Urinary [...] Info) Description 04/21/2025 11:[address] [facility] [address] [address] documented as of this encounter Procedures Procedure Name Priority Date/Time Associated Diagnosis Comments CULTURE URINE Routine 01/09/2025 12:00 AM EDT Intrinsic sphincter deficiency (ISD) Urinary tract infection, site not specified documented in this encounter Results * (ABNORMAL) Culture urine (01/09/2025 12:00 AM EDT) Culture, Urine 10,000-49,000 CFU/mL Escherichia coli(A) SAHRA 01/13/2025 11:[address] [facility] Culture, Urine 10,000-49,000 CFU/mL Enterococcus faecium(A) SAHRA 01/13/2025 11:[address] [facility] Comment: Edited result: Previously reported as Gram Positive Cocci on 01/11/2025 at 0921 EDT. Urine Urine specimen obtained by clean catch procedure / Unknown 01/09/2025 01/09/2025 6:[address] [facility] - 01/13/2025 11:16 AM EDT [...] MICROBIOLOGY - GENERA L ORDERABLES Final Result [facility] [address] [place] [address], documented in this encounter Visit Diagnoses Diagnosis Intrinsic sphincter deficiency (ISD) Urinary tract infection, site not specified documented in this encounter Care Teams Take Out Waiter Relationship Specialty Start Date End Date Jewel Rebolledo MD [address] [place] [address] PCP - General 09/25/22 documented as of this encounter
== END 2025-04-17 15:42 | disposition home or self-care (01) ==
LOC: HO.HCC 14:33
PROVIDERS: Visit Provider Internal Medicine
DX: G89.4 Chronic pain syndrome (principal)
CPT/HCPCS: 99213

== ENCOUNTER 2025-04-17 14:33 | Outpatient (REF) | payer MEDICARE, SELFPAY ==
--- OUTSIDE RECORDS SUMMARY | 2025-04-13 10:20 | XMS_ITS | Encounter Summary ---
Author Organization [facility] Address [address] [place] [address] Phone Care Team Providers Care Manager Stone Name Role Phone Jewel Rebolledo MD Primary Care Provider [phone] Pcp, Not Required Unavailable Unavailable Wade Seo DO, Justine Unavailable [phone] Luis Aly MD Unavailable [phone] Hodan Rodriguez MD, MPH Unavailable [phone] Reason for Referral * MRI/CAT Scan - Closed Specialty Diagnoses / Procedures Referred By Contac t Referred To Contact Radiology Diagnoses Squamous cell carcinoma of forehead Procedures CT Head Hodan Rodriguez MD, MPH [address] [place] [address] Phone: tel: fax: mailto:[email or web address] Referral ID Status Reason Start Date Expiration Date Visits Re quested Visits Authorized [id number] Closed 04/13/2025 1 1 * MRI/CAT Scan - Closed Specialty Diagnoses / Procedures Referred By Contadal t Referred To Contact Radiology Diagnoses Squamous cell carcinoma of forehead Procedures CT Neck Hodan Rodriguez MD, MPH [address] [place] [address] Phone: tel: fax: mailto:[email or web address] Referral ID Status Reason Start Date Expiration Date Visits Re quested Visits Authorized [id number] Closed 04/13/2025 1 1 Encounter Details Date Type Department Care Team (Late st Contact Info) Description 04/13/2025 10:20 AM EDT [facility] [address] [place] [address], 5th [place] [address] Hodan Rodriguez MD, MPH [address], [place] [address] [email or web address] Squamous cell carcinoma of forehead (Primary Dx) Social History Tobacco Use Types Packs/Day Years [...] PM EDT documented as of this encounter Last Filed Vital Signs Vital Sign Reading Time Taken Comments Blood Pressure 119/69 04/13/2025 9:51 AM EDT Pulse 69 04/13/2025 9:51 AM EDT Temperature 36.2 C (97.2 F) 04/13/2025 9:51 AM EDT Respiratory Rate 16 04/13/2025 9:49 AM EDT Oxygen Saturation 100% 04/13/2025 9:51 AM EDT Inhaled Oxygen Concentration - - Weight - - Height - - Body Mass Index - - documented in this encounter Progress Notes * Hodan Rodriguez MD, MPH - 04/13/2025 10:20 AM EDT Patient's name: Jewel Canales Date of : 1935 Date of Visit: 04/13/2025 REASON FOR VISIT: Re-evaluation of a locally advanced SCC PATIENT SUMMARY: Elements of the patient summary section are gathered from previous notes and are here for clinical reference. 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 The patient was seen in November 2024 at [facility]. Iaging review showed the tumor to be abutting bone with some bone remodeling but no clear erosion or invasion; into the eyelid toward the medial canthus; equivocal if V1 is involved where it goes under the orbital rim, otherwise orbit was okay. The patient was recommended to receive 4 cycles of neoadjuvant cemiplimab, which he started at [facility] in December 2024. History of type 1 diabetes, prostate cancer and incontinence. Tumor History -Excisional biopsy 09/06/24: well differentiated squamous cell carcinoma suspicious for superficial invasion - [facility] review of outside pathology showed invasive SCC - CT head/neck 12/17/2024: 1. 3.2 cm x 3.1 cm enhancing mass within the left frontal scalp, consistent with the known squamouscell carcinoma. There is no erosion of the underlying bone. 2. No evidence of cervical adenopathy. 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 Patient has four children. Interval History 04/13/25:The patient returns today with two of his children as well as a daughter in law. The family notes that they are committed to facilitating treatment for the patient. The patient only received 2 cycles of cemiplimab because he was not sure it was working. He notes that he received a phone call and was asked about response and said he didn't know and so they discontinued therapy. He had no toxicity and would be willing to receive more infusions. He missed an apt with Dr. Dias in February because he did not tell his children about the appointment. MEDICAL HISTORY: A full medical history was provided by the patient and reviewed by me including the following information: Medications and allergies as listed below were reviewed by the attending physician. Social history: The patient???s social history were reviewed on 04/13/2025 and no changes were noted. Marital status: Family history: The patient???s family history were reviewed on 04/13/2025 and no changes were noted. Immediate family member(s) diagnosed with skin cancer: no Immediate family member(s) from skin cancer: no Medical History: The patient???s medical history were reviewed on 04/13/2025 and no changes were noted. Teixeira skin type: III: Sometimes cai first but always tans with continued sun exposure (medium skin, usually ) The patient reports a history of radiation therapy. The patient has the follwoing history of non-skin cancer: 1. Prostate, treated 1993, by prostatectomy, radiation The patient reports the following surgeries: 1. Bilateral knee replacement, unknown The patient reports no history of the following: excessive diagnostic X-rays, medical light treatments, arsenic exposure, sunlamp/tanning bed use, and melanoma. Review of body systems: The patient???s review of body systems were reviewed on 04/13/2025 and no changes were noted. Constitutional: no problems Skin: no problems Gastrointestional: no problems Neurological: no problems EENT: no problems Cardiovascular: heart attack and pacemaker Kidney/bladder/urinary: incontinence Lung/pulmonary: no problems Endocrine/hormonal: diabetes Blood/hematologic: no problems Immune system: no problems Emotional: no problems Musculoskeletal: arthritis/joint pain Infections: no problems PHYSICAL EXAMINATION: On physical examination, the patient was healthy-appearing, oriented to time, place, and person, and had a normal affect. Lymph node chains examined were as follows: postauricular nodes, parotid nodes, facial nodes, submandibular nodes, submental nodes, lateral cervical nodes, supraclavicular nodes. No lymphadenopathy was detected. Skin examination: scalp, ears, face, neck, trunk, external genitalia, arms, hands, legs, feet, oralmucosa, and nails. There are no notable findings on clinical examination except for the ones listed below. The patient was not king on exam The patient was not sunburned on exam ASSESSMENT AND PLAN: 1. 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 The patient would be happy to resume therapy while deciding whether to proceed now with surgery or wait an additional 2 cycles given the clinical response. Sugery will either entail Mohs or Mohs with additional surgery in the OR. I will repeat CT head and neck scans today and review the scans at the tumor board. Depending on the results of the scans, Iwill arrange an appointment with Dr. Dias. We will call the patient's daughter (Ly Chavez [phone]) next after the TB discussion to finalize the plan. I reached out to the medical oncologist at [facility] to restart cemiplimab as soon as possible. The patient and family are in agreement with the plan. Discussed importance of applying UVA/UVB protective sunscreen daily to all sun- exposed areas and re-applying every 2 hours when outdoors. Discussed monthly self skin-checks and need to return to clinic immediately if patient notes new, changing or non-healing skin lesions. NEXT VISIT: The patient will be seen again in Pending TB discussion. Hodan Rodriguez M.D. documented in this encounter Plan of Treatment Scheduled Orders Name Type Priority Associated Diagnoses Orde r Schedule Basic metabolic panel Lab Routine Squamous cell carcinoma of forehead Expected: 04/13/2025, Expires: 04/13/2026 documented as of this encounter Results * CT HEAD WITH AND WITHOUT CONTRAST (04/13/2025 12:31 PM EDT) Anatomical Region Laterality Modality Head Computed Tomogra phy Other 04/13/2025 2:43 PM EDT Impressions 04/13/2025 3:08 PM EDT 1. Increased size of the enhancing mass along the left frontal scalp/supraorbital region, now measuring up to 4.3 cm. Increased bony resorption/erosion along the left side of the frontal bone involving the anterior wall of the left frontal sinus. 2. New areas of nodular skin thickening along the more superior frontal scalp, which may represent in-transit metastases. 3. No evidence of intracranial metastatic disease. 4. No lymph node metastases in the neck. Narrative 04/13/2025 3:[address] HEAD WITH AND WITHOUT CONTRAST, CT NECK SOFT TISSUE WITH CONTRAST Referring clinician's provided indication for this examination in Epic: Skin cancer, surveillance; Pt with large SCC on left forehead that did not response to immunotherapy. Please evaluate for metastasis and extent of disease. TECHNIQUE: * Multidetector-row CT of the head was performed without and with intravenous contrast using tailored dose modulation techniques. Images were reconstructed in the axial, coronal, and sagittal planes. * Multidetector-row CT of the neck was performed with intravenous contrast using tailored dose modulation techniques. Images were reconstructed in the axial, coronal, and sagittal planes. COMPARISON: CT HEAD WITH CONTRAST ; CT NECK SOFT TISSUE WITH CONTRAST FINDINGS: CT HEAD: Brain Parenchyma: No evidence of an acute territorial infarct, intraparenchymal hemorrhage or intraparenchymal mass. Scattered hypodensities in the periventricular and subcortical white matter, which are nonspecific but most likely represent chronic microangiopathic changes. No abnormal enhancement. Ventricular System and Extra-Axial Spaces: The ventricles and sulci are prominent. No extra-axial fluid collections. Patent basal cisterns. No hydrocephalus. Osseous and Extracranial Structures: No acute orbital abnormality. Bilateral lens replacements. Mild scattered mucosal thickening in the paranasal sinuses. Small left mastoid effusion. Increased size of the enhancing mass along the left frontal scalp and superior periorbital region, now measuring 4.3 x 1.6 x 3.7 cm (TR x AP x SI). Areas of superficial ulceration along the lateral and superior aspects may represent postsurgical changes from excisional biopsy or necrosis. Increased bony resorption/erosion along the left side of the frontal bone involving the anterior wall of the left frontal sinus. New areas of nodular skin thickening along the more superior frontal scalp (22:98, 137) CT NECK: Aerodigestive Tract: Symmetrical mucosa. Normal epiglottis. No tonsillar enlargement. No peritonsillar or retropharyngeal fluid collection. Lymph Nodes: No lymphadenopathy. Salivary Glands: Normal. Thyroid Gland: Two hypodense nodules in the right lobe of the thyroid measuring up to 5 mm, which do not require further evaluation based on ACR guidelines. Vessels: The major cervical vessels enhance normally. Mild atherosclerotic calcification at the bilateral carotid bifurcations. Lung Apices: Mild subpleural fibrotic changes in the visualized lungs. No focal consolidation or suspicious pulmonary nodule. Bones and Soft Tissues: No acute fracture or suspicious osseous lesion. Moderate to severe multilevel degenerative changes of the cervical spine with partial fusion of the C3, C4 and C5 vertebrae, and anterolisthesis of C2 on C3. Severe degenerative changes of the right glenohumeral joint with a moderate joint effusion. Partially visualized left chest wall cardiac device. Procedure Note Jose David Andrade MD - 04/13/2025 CT HEAD WITH AND WITHOUT CONTRAST, CT NECK SOFT TISSUE WITH CONTRAST Referring clinician's provided indication for this examination in Epic:Skin cancer, surveillance; Pt with large SCC on left forehead that did notresponse to immunotherapy. Please evaluate for metastasis and extent ofdisease. TECHNIQUE: * Multidetector-row CT of the head was performed without and withintravenous contrast using tailored dose modulation techniques. Imageswere reconstructed in the axial, coronal, and sagittal planes. * Multidetector-row CT of the neck was performed with intravenouscontrast using tailored dose modulation techniques. Images werereconstructed in the axial, coronal, and sagittal planes. COMPARISON: CT HEAD WITH CONTRAST ; CT NECK SOFT TISSUE WITHCONTRAST FINDINGS: CT HEAD: Brain Parenchyma: No evidence of an acute territorial infarct,intraparenchymal hemorrhage or intraparenchymal mass. Scatteredhypodensities in the periventricular and subcortical white matter, whichare nonspecific but most likely represent chronic microangiopathicchanges. No abnormal enhancement. Ventricular System and Extra-Axial Spaces: The ventricles and sulci areprominent. No extra-axial fluid collections. Patent basal cisterns. Nohydrocephalus. Osseous and Extracranial Structures: No acute orbital abnormality.Bilateral lens replacements. Mild scattered mucosal thickening in theparanasal sinuses. Small left mastoid effusion. Increased size of theenhancing mass along the left frontal scalp and superior periorbitalregion, now measuring 4.3 x 1.6 x 3.7 cm (TR x AP x SI). Areas ofsuperficial ulceration along the lateral and superior aspects mayrepresent postsurgical changes from excisional biopsy or necrosis.Increased bony resorption/erosion along the left side of the frontal boneinvolving the anterior wall of the left frontal sinus. New areas ofnodular skin thickening along the more superior frontal scalp (22:98,137) CT NECK: Aerodigestive Tract: Symmetrical mucosa. Normal epiglottis. No tonsillarenlargement. No peritonsillar or retropharyngeal fluid collection. Lymph Nodes: No lymphadenopathy. Salivary Glands: Normal. Thyroid Gland: Two hypodense nodules in the right lobe of the thyroidmeasuring up to 5 mm, which do not require further evaluation based on ACRguidelines. Vessels: The major cervical vessels enhance normally. Mild atheroscleroticcalcification at the bilateral carotid bifurcations. Lung Apices: Mild subpleural fibrotic changes in the visualized lungs. Nofocal consolidation or suspicious pulmonary nodule. Bones and Soft Tissues: No acute fracture or suspicious osseous lesion.Moderate to severe multilevel degenerative changes of the cervical spinewith partial fusion of the C3, C4 and C5 vertebrae, and anterolisthesis ofC2 on C3. Severe degenerative changes of the right glenohumeral joint witha moderate joint effusion. Partially visualized left chest wall cardiacdevice. IMPRESSION: 1. Increased size of the enhancing mass along the left frontalscalp/supraorbital region, now measuring up to 4.3 cm. Increased bonyresorption/erosion along the left side of the frontal bone involving theanterior wall of the left frontal sinus. 2. New areas of nodular skin thickening along the more superior frontalscalp, which may represent in-transit metastases. 3. No evidence of intracranial metastatic disease. 4. No lymph node metastases in the neck. us Hodan Rodriguez MD, MPH IMG CT HEAD/NECK Final Resu lt * CT NECK SOFT TISSUE WITH CONTRAST (04/13/2025 12:31 PM EDT) Anatomical Region Laterality Modality Neck Computed Tomogra phy Other 04/13/2025 2:43 PM EDT Impressions 04/13/2025 3:08 PM EDT 1. Increased size of the enhancing mass along the left frontal scalp/supraorbital region, now measuring up to 4.3 cm. Increased bony resorption/erosion along the left side of the frontal bone involving the anterior wall of the left frontal sinus. 2. New areas of nodular skin thickening along the more superior frontal scalp, which may represent in-transit metastases. 3. No evidence of intracranial metastatic disease. 4. No lymph node metastases in the neck. Narrative 04/13/2025 3:[address] HEAD WITH AND WITHOUT CONTRAST, CT NECK SOFT TISSUE WITH CONTRAST Referring clinician's provided indication for this examination in Epic: Skin cancer, surveillance; Pt with large SCC on left forehead that did not response to immunotherapy. Please evaluate for metastasis and extent of disease. TECHNIQUE: * Multidetector-row CT of the head was performed without and with intravenous contrast using tailored dose modulation techniques. Images were reconstructed in the axial, coronal, and sagittal planes. * Multidetector-row CT of the neck was performed with intravenous contrast using tailored dose modulation techniques. Images were reconstructed in the axial, coronal, and sagittal planes. COMPARISON: CT HEAD WITH CONTRAST ; CT NECK SOFT TISSUE WITH CONTRAST FINDINGS: CT HEAD: Brain Parenchyma: No evidence of an acute territorial infarct, intraparenchymal hemorrhage or intraparenchymal mass. Scattered hypodensities in the periventricular and subcortical white matter, which are nonspecific but most likely represent chronic microangiopathic changes. No abnormal enhancement. Ventricular System and Extra-Axial Spaces: The ventricles and sulci are prominent. No extra-axial fluid collections. Patent basal cisterns. No hydrocephalus. Osseous and Extracranial Structures: No acute orbital abnormality. Bilateral lens replacements. Mild scattered mucosal thickening in the paranasal sinuses. Small left mastoid effusion. Increased size of the enhancing mass along the left frontal scalp and superior periorbital region, now measuring 4.3 x 1.6 x 3.7 cm (TR x AP x SI). Areas of superficial ulceration along the lateral and superior aspects may represent postsurgical changes from excisional biopsy or necrosis. Increased bony resorption/erosion along the left side of the frontal bone involving the anterior wall of the left frontal sinus. New areas of nodular skin thickening along the more superior frontal scalp (22:98, 137) CT NECK: Aerodigestive Tract: Symmetrical mucosa. Normal epiglottis. No tonsillar enlargement. No peritonsillar or retropharyngeal fluid collection. Lymph Nodes: No lymphadenopathy. Salivary Glands: Normal. Thyroid Gland: Two hypodense nodules in the right lobe of the thyroid measuring up to 5 mm, which do not require further evaluation based on ACR guidelines. Vessels: The major cervical vessels enhance normally. Mild atherosclerotic calcification at the bilateral carotid bifurcations. Lung Apices: Mild subpleural fibrotic changes in the visualized lungs. No focal consolidation or suspicious pulmonary nodule. Bones and Soft Tissues: No acute fracture or suspicious osseous lesion. Moderate to severe multilevel degenerative changes of the cervical spine with partial fusion of the C3, C4 and C5 vertebrae, and anterolisthesis of C2 on C3. Severe degenerative changes of the right glenohumeral joint with a moderate joint effusion. Partially visualized left chest wall cardiac device. Procedure Note Jose David Andrade MD - 04/13/2025 CT HEAD WITH AND WITHOUT CONTRAST, CT NECK SOFT TISSUE WITH CONTRAST Referring clinician's provided indication for this examination in [facility]:Skin cancer, surveillance; Pt with large SCC on left forehead that did notresponse to immunotherapy. Please evaluate for metastasis and extent ofdisease. TECHNIQUE: * Multidetector-row CT of the head was performed without and withintravenous contrast using tailored dose modulation techniques. Imageswere reconstructed in the axial, coronal, and sagittal planes. * Multidetector-row CT of the neck was performed with intravenouscontrast using tailored dose modulation techniques. Images werereconstructed in the axial, coronal, and sagittal planes. COMPARISON: CT HEAD WITH CONTRAST ; CT NECK SOFT TISSUE WITHCONTRAST FINDINGS: CT HEAD: Brain Parenchyma: No evidence of an acute territorial infarct,intraparenchymal hemorrhage or intraparenchymal mass. Scatteredhypodensities in the periventricular and subcortical white matter, whichare nonspecific but most likely represent chronic microangiopathicchanges. No abnormal enhancement. Ventricular System and Extra-Axial Spaces: The ventricles and sulci areprominent. No extra-axial fluid collections. Patent basal cisterns. Nohydrocephalus. Osseous and Extracranial Structures: No acute orbital abnormality.Bilateral lens replacements. Mild scattered mucosal thickening in theparanasal sinuses. Small left mastoid effusion. Increased size of theenhancing mass along the left frontal scalp and superior periorbitalregion, now measuring 4.3 x 1.6 x 3.7 cm (TR x AP x SI). Areas ofsuperficial ulceration along the lateral and superior aspects mayrepresent postsurgical changes from excisional biopsy or necrosis.Increased bony resorption/erosion along the left side of the frontal boneinvolving the anterior wall of the left frontal sinus. New areas ofnodular skin thickening along the more superior frontal scalp (22:98,137) CT NECK: Aerodigestive Tract: Symmetrical mucosa. Normal epiglottis. No tonsillarenlargement. No peritonsillar or retropharyngeal fluid collection. Lymph Nodes: No lymphadenopathy. Salivary Glands: Normal. Thyroid Gland: Two hypodense nodules in the right lobe of the thyroidmeasuring up to 5 mm, which do not require further evaluation based on ACRguidelines. Vessels: The major cervical vessels enhance normally. Mild atheroscleroticcalcification at the bilateral carotid bifurcations. Lung Apices: Mild subpleural fibrotic changes in the visualized lungs. Nofocal consolidation or suspicious pulmonary nodule. Bones and Soft Tissues: No acute fracture or suspicious osseous lesion.Moderate to severe multilevel degenerative changes of the cervical spinewith partial fusion of the C3, C4 and C5 vertebrae, and anterolisthesis ofC2 on C3. Severe degenerative changes of the right glenohumeral joint witha moderate joint effusion. Partially visualized left chest wall cardiacdevice. IMPRESSION: 1. Increased size of the enhancing mass along the left frontalscalp/supraorbital region, now measuring up to 4.3 cm. Increased bonyresorption/erosion along the left side of the frontal bone involving theanterior wall of the left frontal sinus. 2. New areas of nodular skin thickening along the more superior frontalscalp, which may represent in-transit metastases. 3. No evidence of intracranial metastatic disease. 4. No lymph node metastases in the neck. us Hodan Rodriguez MD, MPH IMG CT XSPECIALTY ORDERABLE S Final Result documented in this encounter Visit Diagnoses Diagnosis Squamous cell carcinoma of forehead- Primary Squamous cell carcinoma of forehead documented in this encounter Care Teams Manager Stone Relationship Specialty Start Date End Date Jewel Rebolledo MD [address] [place] [address] PCP - General Internal Medicine 12/08/24 Pcp, Not Required [address] [place] [address] 12/08/24 Serenity Olvera DO [address] [place] [address] [email or web address] Medical Oncology 12/26/24 Luis Aly MD [address] [place] [email or web address] 12/26/24 Hodan Rodriguez MD, MPH [address] [place] [email or web address] 12/26/24 documented as of this encounter Additional Source Comments The information contained in this document represents components of the legal health record. It is not the complete legal health record.[facility]
--- OUTSIDE RECORDS SUMMARY | 2025-04-13 11:28 | XMS_ITS | Encounter Summary ---
Author Organization [facility] Address [address] [place] [address] Phone Care Team Providers Care Ct Mri Technologist Name Role Phone Jewel Rebolledo MD Primary Care Provider [phone] Pcp, Not Required Unavailable Unavailable Wade Seo DO, Justine Unavailable [phone] Luis Aly MD Unavailable [phone] Hodan Rodriguez MD, MPH Unavailable [phone] Reason for Referral * MRI/CAT Scan - Closed Specialty Diagnoses / Procedures Referred By Contac t Referred To Contact Radiology Diagnoses Squamous cell carcinoma of forehead Procedures CT Head Hodan Rodriguez MD, MPH [address] [place] [address] Phone: tel: fax: mailto:[email or web address] Referral ID Status Reason Start Date Expiration Date Visits Re quested Visits Authorized [id number] Closed 04/13/2025 1 1 * MRI/CAT Scan - Closed Specialty Diagnoses / Procedures Referred By Contadal t Referred To Contact Radiology Diagnoses Squamous cell carcinoma of forehead Procedures CT Neck Hodan Rodriguez MD, MPH [address] [place] [address] Phone: tel: fax: mailto:[email or web address] Referral ID Status Reason Start Date Expiration Date Visits Re quested Visits Authorized [id number] Closed 04/13/2025 1 1 Reason for Visit * MRI/CAT Scan - Closed Specialty Diagnoses / Procedures Referred By Lenora lopez Referred To Contact Radiology Diagnoses Squamous cell carcinoma of forehead Procedures CT Head Hodan Rodriguez MD, MPH [address], [place] [address] Phone: tel: fax: mailto:[email or web address] Referral ID Status Reason Start Date Expiration Date Visits Re quested Visits Authorized [id number] Closed 04/13/2025 1 1 Encounter Details Date Type Department Care Team (Latest Contact Info) Description 04/13/2025 11:28 AM EDT - 04/13/2025 11:59 PM EDT Hospital Encounter [facility], [facility] [place], [place] [address] [facility], [address] [place] [address] Hodan Rodriguez MD, MPH [address] [place] [address] [email or web address] Arrived Discharge Disposition: Home or Self Care Social History Tobacco Use Types Packs/Day Years [...] PM EDT documented as of this encounter Medications at Time of Discharge insulin aspart U-100 (NOVOLOG U-100 INSULIN ASPART) 100 unit/mL injection vial as directed Subcutaneous isosorbide dinitrate (ISORDIL) 30 MG immediate release tablet 1 tablet Orally Twice a day isosorbide mononitrate (IMDUR) 30 MG 24 hr tablet 08/04/2023 LANTUS SOLOSTAR U-100 INSULIN 100 unit/mL (3 mL) InPn injection pen 0.1 ml Subcutaneous Once a day for 30 day(s) losartan (COZAAR) 25 MG tablet 08/04/2023 metoprolol succinate (TOPROL-XL) 25 MG 24 hr tablet metoprolol tartrate (LOPRESSOR) 50 MG tablet Take 1 tablet by mouth 2 (two) times a day. 08/28/2023 OLANZapine (ZYPREXA) 2.5 MG tablet Take 2.5 mg by mouth nightly at bedtime. oxyCODONE HCl 10 mg Tab Take 1 tablet by mouth every 4 (four) hours as needed. documented as of this encounter Plan of Treatment Not on file documented as of this encounter Procedures Procedure Name Priority Date/Time Associated Diagnosis Comments CT NECK SOFT TISSUE WITH CONTRAST Routine 04/13/2025 12:31 PM EDT Squamous cell carcinoma of forehead CT HEAD WITH AND WITHOUT CONTRAST Routine 04/13/2025 12:31 PM EDT Squamous cell carcinoma of forehead documented in this encounter Results * CT HEAD WITH [...] clinician's provided indication for this examination in [facility]:Skin cancer, surveillance; Pt with large [...] Visit Diagnoses Diagnosis Squamous cell carcinoma of forehead documented in this encounter Administered Medications Inactive Administered Medications - up to 3 most recent administrations Medication Order MAR Action Action Date Dose Rate Site iohexoL (OMNIPAQUE-350) 350 mg iodine/mL solution 25-125 mL 25-125 mL, Intravenous, Once as needed, pre procedure/treatment, Starting on Adela 04/13/25 at 1208, For 1 dose, Procedural Contrast/Med Active Now, Each mL contains 755 mg of iohexol equivalent to 350 mg of organic iodine. Given 04/13/2025 12:19 PM EDT 80 mL documented in this encounter Care Teams Ct Mri Technologist Relationship Specialty Start Date End Date Jewel Rebolledo MD [address] [place] [address] PCP - General Internal Medicine 12/08/24 Pcp, Not Required [address] [place] [address] 12/08/24 Serenity Olvera DO [address] [place] [address] [email or web address] Medical Oncology 12/26/24 Luis Aly MD [address] [place] [address] [email or web address] Medical Oncology 12/26/24 Hodan Rodriguez MD, MPH [address] [place] [phone] [email or web address] Dermatology 12/26/24 documented as of this encounter Additional Source Comments The information contained in this document represents components of the legal health record. It is not the complete legal health record.[facility]
--- OUTSIDE RECORDS SUMMARY | 2025-04-13 11:45 | XMS_ITS | Encounter Summary ---
Author Organization [facility] Address [address] [facility] [address] [place] [address] Phone Care Team Providers Care Linen Supervisor Name Role Phone Jewel Rebolledo MD Primary Care Provider [phone] Pcp, Not Required Unavailable Unavailable Wade Seo DO, Justine Unavailable [phone] Luis Aly MD Unavailable [phone] Hodan Rodriguez MD, MPH Unavailable [phone] Encounter Details Date Type Department Care Team (Late st Contact Info) Description 04/13/2025 11:45 AM EDT Infusion [facility], [facility] [place], Imaging Rgxbn-ce-Dg[facility] [address] [facility], [address] [place] [address] Hodan Rodriguez MD, MPH [address] [facility] [address] [address] [email or web address], [email or web address] [address] [place] [address] [email or web address] Arrived Social History Tobacco Use Types Packs/Day Years [...] Procedure Name Priority Date/Time Associated Diagnosis Comments POCT CREATININE/EGFR Routine 04/13/2025 12:00 PM EDT documented in this encounter Results * POCT Creatinine/eGFR (04/13/2025 12:00 PM EDT) Creatinine 1.00 0.50 - 1.20 mg/dl [facility] LIC# [id number] EGFR 73 >59 mL/min/1.[address] [facility] LIC# [id number] Comment:Estimated glomerular filtration rate calculated using the CKD-EPI refit equation. 04/13/2025 12:0 0 PM EDT 04/13/2025 12:02 PM EDT us Hodan Rodriguez MD, MPH POINT OF CARE TEST ORDERABL ES Final Result [facility] LIC# [id number] [address] [place] [address] documented in this encounter Visit Diagnoses Not on filedocumented in this encounter Care Teams Linen Supervisor Relationship Specialty Start Date End Date Jewel Rebolledo MD [address] [place] [address] PCP - General Internal Medicine 12/08/24 Pcp, Not Required [address] [place] [phone] 12/08/24 Serenity Olvera DO [address] [place] [address] [email or web address] 12/26/24 Luis Aly MD [address] [place] [address] [email or web address] 12/26/24 Hodan Rodriguez MD, MPH [address] [place] [address] [email or web address] Dermatology 12/26/24 documented as of this encounter Additional Source Comments The information contained in this document represents components of the legal health record. It is not the complete legal health record.[facility]
--- NOTE | ~2025-04-17 | XR_ITS ---
EXAMINATION: XR CHEST CLINICAL INFORMATION: R05.9 - Cough, unspecified COMPARISON: October 11, 2024 TECHNIQUE: 2 views of the chest were obtained. 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 Heart size is upper limits of normal. Pulmonary vessels appear more distinct than on the prior. Minimal basilar densities partially obscure both hemidiaphragms. Probable trace pleural fluid is present on the right. Chronic posterior lateral right seventh and eighth rib fractures are again noted. XR/XR chest 2V IMPRESSION: Bibasilar atelectasis and trace right pleural effusion. Early pneumonia is not entirely excluded. Electronically signed by: Jori Warren MD 04/17/2025 05:06 PM EDT
[2025-04-17 16:45] LABS: MANUAL DIFF FLAG NO
[2025-04-17 17:11] LABS: Hematocrit 39.9 % (42.0-52.0); Hemoglobin 13.2 g/dl (14.0-18.0); Imm Gran Abs Auto 0.06 X10*3/uL (0.00-0.03); Imm Gran Pct Auto 1.1 % (0.0-0.4); Lymphocytes Absolute Auto 1.0 X10*3/uL (1.2-4.9); Mean Corpuscular HGB Conc 33.1 g/dl (31.0-36.0); Mean Corpuscular Hemoglobin 30.3 pg (27.0-33.0); Mean Corpuscular Volume 91.5 fL (80.0-98.0); NRBC Abs Auto 0.000 X10*3/uL (0.0-0.012); NRBC Pct Auto 0.0 /100WBC (0.0-0.2); Platelet Count 101 X10*3/uL (160-400); Red Blood Count 4.36 X10*6/uL (4.60-5.80); White Blood Count 5.4 X10*3/uL (4.8-10.8)
[2025-04-17 17:42] LABS: Resp Syncy Virus RNA Qual PCR NEGATIVE (Negative); SARS COV2 PCR INHOUSE NEGATIVE (Negative)
--- OUTSIDE RECORDS SUMMARY | 2025-04-17 17:58 | XMS_ITS | Encounter Summary ---
Author Organization [facility] Address [address] [facility] [address] [place] [address] Phone Care Team Providers Care Health Information Tech Name Role Phone Jewel Rebolledo MD Primary Care Provider [phone] Pcp, Not Required Unavailable Unavailable Wade Seo DO, Justine Unavailable [phone] Luis Aly MD Unavailable [phone] Hodan Rodriguez MD, MPH Unavailable [phone] Encounter Details Date Type Department Care Team (Late st Contact Info) Description 12/08/2024 Procedure Pass [facility], Ct Scan - [address] [address] Social History Tobacco Use Types Packs/Day Years [...] on filedocumented in this encounter Care Teams Health Information Tech Relationship Specialty Start Date End Date Jewel Rebolledo MD [address] [place] [address] PCP - General Internal Medicine 12/08/24 Pcp, Not Required [address] [place] [address] 12/08/24 Serenity Olvera DO [address] [place] [address] [email or web address] Medical Oncology 12/26/24 Luis Aly MD [address] [place] [address] Medical Oncology 12/26/24 Hodan Rodriguez MD, MPH [address] [place] [address] [email or web address] Dermatology 12/26/24 documented as of this encounter Additional Source Comments The information contained in this document represents components of the legal health record. It is not the complete legal health record.[facility]
--- OUTSIDE RECORDS SUMMARY | 2025-04-17 17:58 | XMS_ITS | Encounter Summary ---
Author Organization [facility] Address [address] [place] [address] Care Team Providers Care Inward Toll Operator Name Role Phone Pcp, No Primary Care Provider Unavailabl e Reason for Visit * Reason Comments Appointment Encounter Details Date Type Department Care Team (Late st Contact Info) Description 01/13/2024 Telephone [facility] [address] [place] [address] Enoch Cardona MD [address] [phone] Appointment Social History Tobacco Use Types Packs/Day [...] on filedocumented in this encounter Care Teams Inward Toll Operator Relationship Specialty Start Date End Date Pcp, No PCP - General General Medicine 08/19/23 documented as of this encounter
--- OUTSIDE RECORDS SUMMARY | 2025-04-17 17:58 | XMS_ITS | Encounter Summary ---
Author Organization [facility] Address [address] [place] [address] Care Team Providers Care Pattern Grader Name Role Phone Pcp, No Primary Care Provider Unavailabl e Encounter Details Date Type Department Care Team (Late st Contact Info) Description 09/29/2022 Scanned Document [facility] Urologic Surgery [address] [place] [address] Sreekanth Lobato MD Social History [...] on filedocumented in this encounter Care Teams Pattern Grader Relationship Specialty Start Date End Date Pcp, No PCP - General General Medicine 08/19/23 documented as of this encounter
--- OUTSIDE RECORDS SUMMARY | 2025-04-17 17:58 | XMS_ITS | Clinical Summary ---
Author Organization [facility] Address [address] [place] [address] Care Team Providers Care Puncher And Fastener Name Role Phone Pcp, No Primary Care Provider Unavailabl e Allergies Active Allergy Reactions Criticality Noted Date Comments Ibuprofen Unknown/Patient and Family Unable to Define Medium 10/28/2023 Medications metoPROLOL TARTRATE (LOPRESSOR) 50 MG tablet Take 1 tablet (50 mg total) by mouth 2 (two) times a day. 08/28/2023 Active losartan (COZAAR) 25 MG tablet 08/04/2023 Active isosorbide mononitrate (IMDUR) 30 MG 24 hr tablet 08/04/2023 Active furosemide (LASIX) 20 MG tablet TAKE 1 TABLET BY MOUTH DAILY FOR EDEMA 08/11/2023 Active Eliquis 5 MG tablet 07/06/2023 Active atorvastatin (LIPITOR) 40 MG tablet 08/17/2023 Active TURMERIC PO Take by mouth. Active B Complex Vitamins (VITAMIN B-COMPLEX PO) Take by mouth. Active Multiple Vitamins-Mineral s (ZINC PO) Take by mouth. Active [place]-3 Fatty Acids (FISH OIL PO) Take by mouth. Active CRANBERRY PO Take by mouth. Active MAGNESIUM PO Take by mouth. Active Cholecalciferol (VITAMIN D3 PO) Take by mouth. Active Insulin Degludec (TRESIBA FLEXTOUCH SC) Inject under the skin. Active insulin aspart (NovoLOG FlexPen) 100 UNIT/ML prefilled pen injection Inject under the skin 3 (three) times a day before meals. Active budesonide-formo terol (SYMBICORT) 80-4.5 MCG/ACT inhaler Inhale 2 puffs 2 (two) times a day. Active ipratropium-albu terol (COMBIVENT RESPIMAT) 20-100 mcg/puff inhaler [...] Patients (1 - 1-dose 75+ series) 2012 COVID-19 Vaccine ( season) 2024 06/14/2021, 10/24/2020, 10/03/2020 Influenza Vaccine 03/24/2025 05/20/2022, , 05/21/2020, Additional history exists Hepatitis B Vaccines Aged Out No long er eligible based on patient's age to complete this topic Insurance MEDICARE PART A & B BLUE CROSS OUT OF [facility] - PPO Care Teams Puncher And Fastener Relationship Specialty Start Date End Date Pcp, No PCP - General General Medicine 08/19/23
--- OUTSIDE RECORDS SUMMARY | 2025-04-17 17:58 | XMS_ITS | Encounter Summary ---
Author Organization [facility] Address [address] [facility] [address] [place] [address] Phone Care Team Providers Care Tool Machine Shop Supervisor Name Role Phone Jewel Rebolledo MD Primary Care Provider [phone] Pcp, Not Required Unavailable Unavailable Wade Seo DO, Justine Unavailable [phone] Luis Aly MD Unavailable [phone] Hodan Rodriguez MD, MPH Unavailable [phone] Encounter Details Date Type Department Care Team (Late st Contact Info) Description 12/08/2024 Procedure Pass [facility], Ct Scan - [address] [address] Social History Tobacco Use Types Packs/Day Years [...] on filedocumented in this encounter Care Teams Tool Machine Shop Supervisor Relationship Specialty Start Date End Date Jewel Rebolledo MD [address] [place] [address] PCP - General Internal Medicine 12/08/24 Pcp, Not Required [address] [place] [address] 12/08/24 Serenity Olvera DO [address] [place] [address] [email or web address] Medical Oncology 12/26/24 Luis Aly MD [address] [place] [address] Medical Oncology 12/26/24 Hodan Rodriguez MD, MPH [address] [place] [address] [email or web address] [email or web address] 12/26/24 documented as of this encounter Additional Source Comments The information contained in this document represents components of the legal health record. It is not the complete legal health record.[facility]
--- OUTSIDE RECORDS SUMMARY | 2025-04-17 17:58 | XMS_ITS | Encounter Summary ---
Author Organization [facility] Address [address] [facility] [address] [place] [address] Phone Care Team Providers Care Kennel Staff Member Name Role Phone Jewel Rebolledo MD Primary Care Provider [phone] Pcp, Not Required Unavailable Unavailable Wade Seo DO, Justine Unavailable [phone] Luis Aly MD Unavailable [phone] Hodan Rodriguez MD, MPH Unavailable [phone] Encounter Details Date Type Department Care Team (Late st Contact Info) Description 02/27/2025 Telephone [facility] [address] [place] [address] Afua Weiss [address] [place] [address] [address] [place] [address] [email or web address] Social History Tobacco Use Types Packs/Day Years [...] on filedocumented in this encounter Care Teams Kennel Staff Member Relationship Specialty Start Date End Date Jewel Rebolledo MD 96 [place] [address] PCP - General Internal Medicine 12/08/24 Pcp, Not Required [address] [place] [address] 12/08/24 Serenity Olvera DO [address] [place] [address] [email or web address] Medical Oncology 12/26/24 Luis Aly MD [address] [place] [address] [email or web address] Medical Oncology 12/26/24 Hodan Rodriguez MD, MPH [address] [place] [address] [email or web address] Dermatology 12/26/24 documented as of this encounter Additional Source Comments The information contained in this document represents components of the legal health record. It is not the complete legal health record.[facility]
--- OUTSIDE RECORDS SUMMARY | 2025-04-17 17:58 | XMS_ITS | Encounter Summary ---
Author Organization [facility] Address [address] [place] [address] Care Team Providers Care Car Packer Name Role Phone Pcp, No Primary Care Provider Unavailabl e Encounter Details Date Type Department Care Team (Late st Contact Info) Description 01/13/2024 Scanned Document [facility] Urologic Surgery [address] [place] [address] Enoch Cardona MD [address] [id number] Social History Tobacco Use Types Packs/Day Years [...] on filedocumented in this encounter Care Teams Car Packer Relationship Specialty Start Date End Date Pcp, No PCP - General General Medicine 08/19/23 documented as of this encounter
--- OUTSIDE RECORDS SUMMARY | 2025-04-17 17:58 | XMS_ITS | Encounter Summary ---
Author Organization [facility] Address [address] [place] [address] Care Team Providers Care Mine Geologist Name Role Phone Pcp, No Primary Care Provider Unavailabl e Reason for Visit * Reason Comments Appointment Encounter Details Date Type Department Care Team (Late st Contact Info) Description 12/03/2023 Telephone [facility] [address] [place] [address] Enoch Cardona MD [address] [phone] Appointment Social History Tobacco Use Types Packs/Day [...] on filedocumented in this encounter Care Teams Mine Geologist Relationship Specialty Start Date End Date Pcp, No PCP - General General Medicine 08/19/23 documented as of this encounter
--- OUTSIDE RECORDS SUMMARY | 2025-04-17 17:59 | XMS_ITS | Encounter Summary ---
Author Organization [facility] Address [address] [facility] [address] [place] [address] Phone Care Team Providers Care Transition Teacher Name Role Phone Jewel Rebolledo MD Primary Care Provider [phone] Pcp, Not Required Unavailable Unavailable Wade Seo DO, Justine Unavailable [phone] Luis Aly MD Unavailable [phone] Hodan Rodriguez MD, MPH Unavailable [phone] Encounter Details Date Type Department Care Team (Late st Contact Info) Description 02/27/2025 Telephone [facility] Center [address] [place] [address] Afua Weiss [address] [place] [address] [address] [place] [address] [email or web address] Social History Tobacco Use Types [...] PM EDT documented as of this encounter Progress Notes * Afua Weiss - 02/27/2025 4:32 PM EDT Antony, Dr. 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 It is documented on February 23 that [facility] was informed hisdermatology care( skin cancers) would transfer to Dr. De Leon. Patient does not have any past or future appointments with him. She would like to discuss this with you documented in this encounter Plan of Treatment Not on file documented as of this encounter Visit Diagnoses Not on filedocumented in this encounter Care Teams Transition Teacher Relationship Specialty Start Date End Date Jewel Rebolledo MD [address] [place] [address] PCP - General Internal Medicine 12/08/24 Pcp, Not Required [address] [place] [address] 12/08/24 Serenity Olvera DO [address] [place] [address] [email or web address] Medical Oncology 12/26/24 Luis Aly MD [address] [place] [address] Medical Oncology 12/26/24 Hodan Rodriguez MD, MPH [address] [place] [address] [email or web address] 12/26/24 documented as of this encounter Additional Source Comments The information contained in this document represents components of the legal health record. It is not the complete legal health record.[facility]
--- OUTSIDE RECORDS SUMMARY | 2025-04-17 17:59 | XMS_ITS | Encounter Summary ---
Author Organization [facility] Address [address] [facility] [address] [place] [address] Phone Care Team Providers Care Metal Trim Erector Name Role Phone Jewel Rebolledo MD Primary Care Provider [phone] Pcp, Not Required Unavailable Unavailable Wade Seo DO, Justine Unavailable [phone] Luis Aly MD Unavailable [phone] Hodan Rodriguez MD, MPH Unavailable [phone] Encounter Details Date Type Department Care Team (Late st Contact Info) Description 04/13/2025 Procedure Pass [facility], [facility] [place], [place] [address] [facility], Floor [address] [place] [address] Social History Tobacco Use Types Packs/Day Years [...] on filedocumented in this encounter Care Teams Metal Trim Erector Relationship Specialty Start Date End Date Jewel Rebolledo MD [address] [place] [address] PCP - General Internal Medicine 12/08/24 Pcp, Not Required [address] [place] [address] 12/08/24 Serenity Olvera DO [address] [place] [address] [email or web address] Medical Oncology 12/26/24 Luis Aly MD [address] [place] [address] [email or web address] Medical Oncology 12/26/24 Hodan Rodriguez MD, MPH [address] [place] [address] [email or web address] 12/26/24 documented as of this encounter Additional Source Comments The information contained in this document represents components of the legal health record. It is not the complete legal health record.[facility]
--- OUTSIDE RECORDS SUMMARY | 2025-04-17 17:59 | XMS_ITS | Encounter Summary ---
Author Organization [facility] Address [address] [facility] [address] [place] [address] Phone Care Team Providers Care Warehouse Guard Name Role Phone Jewel Rebolledo MD Primary Care Provider [phone] Pcp, Not Required Unavailable Unavailable Wade Seo DO, Justine Unavailable [phone] Luis Aly MD Unavailable [phone] Hodan Rodriguez MD, MPH Unavailable [phone] Encounter Details Date Type Department Care Team (Late st Contact Info) Description 04/13/2025 Procedure Pass [facility], [facility] [place], [place] [address] [facility], Floor [address] [place] [address] Social History Tobacco Use Types Packs/Day Years [...] on filedocumented in this encounter Care Teams Warehouse Guard Relationship Specialty Start Date End Date Jewel Rebolledo MD [address] [place] [address] PCP - General Internal Medicine 12/08/24 Pcp, Not Required [address] [place] [address] 12/08/24 Serenity Olvera DO [address] [place] [address] [email or web address] Medical Oncology 12/26/24 Luis Aly MD [address] [place] [address] Medical Oncology 12/26/24 Hodan Rodriguez MD, MPH [address] [place] [address] [email or web address] Dermatology 12/26/24 documented as of this encounter Additional Source Comments The information contained in this document represents components of the legal health record. It is not the complete legal health record.[facility]
[2025-04-17 18:23] LABS: Folate 12.9 ng/mL (> or = 4.0); Vitamin B12 1760 pg/mL (200-900)
[2025-04-17 18:58] LABS: Alanine Aminotransferase 85 U/L (0-40); Albumin Level 3.7 g/dL (3.5-5.0); Alkaline Phosphatase 175 U/L (39-117); Anion Gap 9 (12-20); Aspartate Amino Transferase 61 U/L (5-37); Blood Urea Nitrogen 24 mg/dL (9-16); Calcium 9.4 mg/dL (8.4-10.2); Carbon Dioxide 29 mmol/L (22-29); Chloride 106 mmol/L (96-108); Cholesterol 109 mg/dL (<200); Estimated Glomerular Filt Rate > 60; HDL Cholesterol 42 mg/dL (>40); Magnesium 2.1 mg/dL (1.6-2.6); Potassium 4.1 mmol/L (3.3-5.1); Sodium 140 mmol/L (135-145); Total Protein 7.0 g/dL (6.5-8.0); Triglycerides 51 mg/dL (<150)
== END 2025-04-17 14:34 | disposition home or self-care (01) ==
LOC: HO.XRAY 14:33
PROVIDERS: Absent Provider Physician Assistant Medical; Visit Provider Internal Medicine
DX: G89.4 Chronic pain syndrome (principal); R05.9 Cough, unspecified; R09.89 Other specified symptoms and signs involving the circulatory and respiratory systems; Z00.00 Encounter for general adult medical examination without abnormal findings; Z79.899 Other long term (current) drug therapy; Z03.818 Encounter for observation for suspected exposure to other biological agents ruled out
CPT/HCPCS: 71046; 80053; 80061; 82248; 82306; 82607; 82746; 83735; 84443; 85025; 86140; 87637; 99212

== ENCOUNTER → 2025-04-17 16:07 | Outpatient (BNV) | payer MEDICARE, SELFPAY | PROVIDERS: Absent Provider Physician Assistant Medical; Visit Provider Radiology Diagnostic Radiology | DX: J98.11 Atelectasis (principal) | CPT/HCPCS: 71046 ==

== ENCOUNTER 2025-05-01 09:42 | Outpatient (REF) | payer MEDICARE, SELFPAY ==
--- OUTSIDE RECORDS SUMMARY | 2025-04-28 11:30 | XMS_ITS | Encounter Summary ---
Author Organization 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 Jack Russell MD [address] [place] [phone] Phone: tel: fax: [address] [address] Phone: tel: fax: Referral ID Status Reason Start Date Expiration Date V isits Requested Visits Authorized [id number] Authorized 01/04/2025 01/04/2026 1 9 Encounter Details Date Type Department Care Team (Latest Contact Info) Description 04/28/2025 11:30 AM EDT Hospital Encounter [address] [address] 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); Drug therapy; Hypothyroidism due to drugs Social History Tobacco Use Types Packs/Day Years [...] on file documented as of this encounter Last Filed Vital Signs Vital Sign Reading Time Taken Comments Blood Pressure 111/58 04/28/2025 11:53 AM EDT Pulse 70 04/28/2025 11:53 AM EDT Temperature 36.3 C (97.3 F) 04/28/2025 11:53 AM EDT Respiratory Rate 18 04/28/2025 11:53 AM EDT Oxygen Saturation 100% 04/28/2025 11:53 AM EDT Inhaled Oxygen Concentration - - Weight 73.2 kg (161 lb 6 oz) 04/28/2025 11:53 AM EDT Height - - Body Mass Index 26.05 01/26/2025 11:43 AM EDT documented in this encounter Progress Notes * Alice Colon RN - 04/28/2025 11:30 AM EDT Patient arrives via wheelchair accompanied by for STAT labs and treatment. Dr. Reyna to chairside to evaluate patient, per Dr. Reyna pending lab results OK to treat. Patient verbalizing frustration with driving back and forth to [place] and the continued growth of his facial tumor. Patient was seen in [place] recently and the decision to remove the tumor is still undecided. Patient self discontinued his immunotherapy in February because he felt it was not working after receiving two infusions. Patient agreeable to restart immunotherapy at this time. Patient sustained a fall about a week ago, patient was hospitalized at [facility] for [address] Reyna made aware. PIV inserted, labs drawn and sentSTAT to lab. Patient resting comfortably in chair with call pal in reach. Labs resulted and sent to Dr. Reyna for review- per Dr. Reyna OK to treat. Patient rested during treatment and ate well for lunch. 1445-Patient completed treatment without incident. PIV removed-intact. Patient's next appointment scheduled and provided to him. Patient stable upon discharge. documented in this encounter Plan of Treatment Upcoming Encounters Date Type Department Care Team (Late st Contact Info) Description 05/19/2025 11:[address] 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 Expected: 05/19/2025, Expires: 05/19/2026 Comprehensive metabolic panel Lab Routine 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 Expected: 05/19/2025, Expires: 05/19/2026 Magnesium Lab Routine 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 Expected: 05/19/2025, Expires: 05/19/2026 Thyroid stimulating hormone Lab STAT 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 Expected: 06/09/2025, Expires: 06/09/2026 CBC and differential Lab Routine 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 Expected: 06/09/2025, Expires: 06/09/2026 Comprehensive metabolic panel Lab Routine 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 Expected: 06/09/2025, Expires: 06/09/2026 Magnesium Lab Routine 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 Expected: 06/09/2025, Expires: 06/09/2026 documented as of this encounter Procedures Procedure Name Priority Date/Time Associated Diagnosis Comments CBC WITH AUTO DIFFERENTIAL STAT 04/28/2025 12:12 PM EDT Squamous cell carcinoma of skin of face CBC AND DIFFERENTIAL STAT 04/28/2025 12:12 PM EDT Squamous cell carcinoma of skin of face THYROID STIMULATING HORMONE STAT 04/28/2025 12:12 PM EDT Squamous cell carcinoma of skin of face Drug therapy COMPREHENSIVE METABOLIC PANEL STAT 04/28/2025 12:12 PM EDT Squamous cell carcinoma of skin of face documented in this encounter Results * (ABNORMAL) CBC auto differential (04/28/2025 12:12 PM EDT) WBC 5.2 4.8 - 10.8 K/mcL LAB HEMETOLOGY METHOD 04/28/2025 1:10 PM EDT [facility] RBC 3.10(L) 4.50 - 5.50 M/mcL LAB HEMETOLOGY METHOD 04/28/2025 1:10 PM EDT [facility] Hemoglobin 9.4(L) 13.5 - 17.5 g/dL LAB [facility] Hematocrit 29.3(L) 42.0 - 54.0 % LAB HEMETOLOGY METHOD [facility]28[facility]2025 [facility] MCV 93.3 79.0 - 98.0 FL LAB HEMETOLOGY METHOD [facility]/28[facility]2025 [facility] MCH 29.9 27.0 - 32.0 pcg LAB HEMETOLOGY METHOD 04/28[facility]2025 [facility] MCHC 32.1 32.0 - 37.0 g/dL LAB HEMETOLOGY METHOD 04/28[facility]2025 [facility] RDW 17.6(H) 11.0 - 15.0 % LAB HEMETOLOGY METHOD 04/28/2025 [facility] Platelets 97(L) 130 - 400 K/mcL LAB HEMETOLOGY METHOD 04/28/2025 [facility] Comment:reviewed by slide MPV 9.8 7.0 - 11.0 FL LAB HEMETOLOGY METHOD 04/28[facility]2025 [facility] NRBC 0.0 <1.0 % LAB HEMETOLOGY METHOD 04/28/2025 1:10 PM EDT [facility] NRBC Absolute 0.00 <0.10 K/mcL LAB HEMETOLOGY METHOD [facility]/28[facility]2025 [facility] Neutrophils Relative 56.4 % LAB HEMETOLOGY METHOD 04/28/2025 1:10 PM EDT [facility] Lymphocytes Relative 19.1 % LAB HEMETOLOGY METHOD 04/28/2025 1:10 PM EDT [facility] Monocytes Relative 10.1 % LAB HEMETOLOGY METHOD [facility]/28[facility]25 [facility] Eosinophils Relative 12.8 % LAB HEMETOLOGY METHOD [facility]/28[facility]2025 [facility] Basophils Relative 0.6 % LAB HEMETOLOGY METHOD [facility]/28[facility]2025 [facility] Immature Granulocytes Relative 1.0 % LAB HEMETOLOGY METHOD 04/28/2025 1:10 PM T [facility] Neutrophils Absolute 2.92 1.50 - 7.00 K/mcL LAB HEMETOLOGY METHOD 04/28/2025 1:10 PM [facility] Lymphocytes Absolute 0.99(L) 1.00 - 5.00 K/mcL LAB HEMETOLOGY METHOD 04/28/2025 1:10 PM EDT [facility] Monocytes Absolute 0.52 0.20 - 1.00 K/mcL LAB HEMETOLOGY METHOD 04/28/2025 1:10 PM EDT [facility] Eosinophils Absolute 0.66(H) 0.00 - 0.50 K/mcL LAB HEMETOLOGY METHOD 04/28/2025 1:10 PM EDT [facility] Basophils Absolute 0.03 0.00 - 0.20 K/mcL LAB HEMETOLOGY METHOD 04/28/2025 1:10 PM EDT [facility] Immature Granulocytes Absolute 0.05(H) 0.00 - 0.03 K/mcL LAB HEMETOLOGY METHOD 04/28/2025 1:10 PM EDT [facility] Blood Venous blood specimen / Unknown Venipuncture / Unknown 04/28/2025 12:12 PM EDT 04/28/2025 12:16 PM EDT us Jack Russell MD LAB BLOOD ORDERABLE S Final Result Performing Organization Address [facility]/ZIP Co de Phone Number [facility] [address] [place] [address], [place] [phone] * Thyroid stimulating hormone (04/28/2025 12:12 PM EDT) TSH 2.29 0.40 - 4.00 mcIU/mL LAB CHEMISTRY METHOD 04/28/2025 1:51 PM EDT [facility] Blood Venous blood specimen / Unknown Venipuncture / Unknown 04/28/2025 12:12 PM EDT 04/28/2025 12:16 PM EDT us Jack Russell MD LAB BLOOD ORDERABLE S Final Result Performing Organization Address City/[facility]/ZIP Co de Phone Number [facility] [address] [place] [address], [place] [phone] * (ABNORMAL) Comprehensive metabolic panel (04/28/2025 12:12 PM EDT) Sodium 137 133 - 145 mmol/L LAB CHEMISTRY METHOD 04/28/2025 12:51 PM EDT [facility] Potassium 4.1 3.5 - 5.5 mmol/L LAB CHEMISTRY METHOD 04/28/2025 12:51 PM EDT [facility] Chloride 106 96 - 110 mmol/L LAB CHEMISTRY METHOD 04/28/2025 12:51 PM [facility] CO2 28 21 - 32 mmol/L LAB CHEMISTRY METHOD 04/28/2025 12:51 PM [facility] Anion Gap 3 3 - 11 LAB CHEMISTRY METHOD 04/28/2025 12:51 PM [facility] Glucose 257(H) 70 - 100 mg/dL LAB CHEMISTRY METHOD 04/28/2025 12:51 PM [facility] BUN 29(H) 5 - 25 mg/dL LAB CHEMISTRY METHOD 04/28/2025 12:51 PM [facility] Creatinine 1.22 0.70 - 1.30 mg/dL LAB CHEMISTRY METHOD 04/28/2025 12:51 PM [facility] eGFR 57(L) >=60 mL/min/1. 73m2 LAB CHEMISTRY METHOD 04/28/2025 12:51 PM [facility] Comment:Calculation based on the Chronic Kidney Disease Epidemiology Collaboration (CKD-EPI) equation refit without adjustment for race. BUN/Creatinine Ratio 23.8 LAB CHEMISTRY METHOD 04/28/2025 12:51 PM [facility] Calcium 8.8 8.5 - 10.5 mg/dL LAB CHEMISTRY METHOD 04/28/2025 12:51 PM [facility] AST (SGOT) 54(H) 10 - 42 unit/L LAB CHEMISTRY METHOD 04/28/2025 12:51 PM [facility] ALT (SGPT) 61(H) 10 - 60 unit/L LAB CHEMISTRY METHOD 04/28/2025 12:51 PM [facility] Alkaline Phosphatase 208(H) 42 - 121 unit/L LAB CHEMISTRY METHOD 04/28/2025 12:51 PM [facility] Total Protein 6.0 6.0 - 8.0 g/dL LAB CHEMISTRY METHOD 04/28/2025 12:51 PM [facility] Albumin 2.9(L) 3.2 - 5.0 g/dL LAB CHEMISTRY METHOD 04/28/2025 12:51 PM EDT [facility] Total Bilirubin 0.5 0.0 - 1.4 mg/dL LAB CHEMISTRY METHOD 04/28/2025 12:51 PM EDT [facility] Blood Venous blood specimen / Unknown Venipuncture / Unknown 04/28/2025 12:12 PM EDT 04/28/2025 12:16 PM EDT Jack Russell MD LAB BLOOD ORDERABLE S Final Result [facility] [address] [place] [address], [place] [phone] documented in this encounter Visit Diagnoses Diagnosis Squamous cell carcinoma of skin of face- Primary Other malignant neoplasm of skin of other and unspecified parts of face Drug therapy Encounter for other specified aftercare 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 DO NOT SHAKE.Indications:Squamous cell carcinoma of skin of face,Hypothyroidism due to drugs New Bag 04/28/2025 2:01 PM EDT 350 mg 514 mL/hr documented in this encounter Orders Medications Ordered That Raymond ht Not Have Been Administered Count Last Ordered Date First Ordered Date cemiplimab-rwlc (LIBTAYO) 35 0 mg in sodium chloride 257 mL chemo IVPB 1 04/28/2025 Appointment Requests Count Last Ordered Date Fi rst Ordered Date ONCBCN CALCULATED LENGTH INF USION APPOINTMENT REQUEST 1 2 04/28/2025 ONCBCN CLINIC APPOINTMENT REQUEST 2 025 documented in this encounter Care Teams Store Grocery Merchandiser Relationship Specialty Start Date End Date Jewel Rebolledo MD [address] [place] PCP - General 09/25/22 documented as of this encounter
--- OUTSIDE RECORDS SUMMARY | 2025-05-01 11:08 | XMS_ITS | Encounter Summary ---
Author Organization [facility] Address [address] [facility] [address] [place] [phone] Phone Care Team Providers Care Post Splitter Name Role Phone Jewel Rebolledo MD Primary Care Provider [phone] Pcp, Not Required Unavailable Unavailable Wade Seo DO, Justine Unavailable [phone] Luis Aly MD Unavailable [phone] Hodan Rodriguez MD, MPH Unavailable [phone] Encounter Details Date Type Department Care Team (Late st Contact Info) Description 12/08/2024 Procedure Pass [facility], Ct Scan - [address] [address] Social History Tobacco Use Types Packs/Day Years [...] Care Team (Late st Contact Info) Description 05/02/2025 9:30 AM EDT Office Visit [facility] [address] [facility]th [place] [address] Francisca Dias MD, MPH [address] [place] [address] [email or web address] documented as of this encounter Visit Diagnoses Not on filedocumented in this encounter Care Teams Post Splitter Relationship Specialty Start Date End Date Jewel Rebolledo MD [address] [place] [phone] PCP - General Internal Medicine 12/08/24 Pcp, Not Required [address] [place] [address] 12/08/24 Serenity Olvera DO [address] [place] [phone] [email or web address] 12/26/24 Luis Aly MD [address] [place] [phone] [email or web address] Medical Oncology 12/26/24 Hodan Rodriguez MD, MPH [address] [place] [phone] [email or web address] Dermatology 12/26/24 documented as of this encounter Additional Source Comments The information contained in this document represents components of the legal health record. It is not the complete legal health record.[facility]
--- OUTSIDE RECORDS SUMMARY | 2025-05-01 11:08 | XMS_ITS | Encounter Summary ---
Author Organization [facility] [place] [address] Care Team Providers Care Perioperative Manager Name Role Phone Jewel Rebolledo MD Primary Care Provider [phone] Encounter Details Date Type Department Care Team (Late Contact Info) Description 03/20/[address] [facility] [address] [facility] [phone] Sreekanth Lobato MD [address] [facility] [address] [place] [address] Urinary tract infection, site not [...] Department Care Team (Late Contact Info) Description 05/19/2025 11:30 AM EDT Appointment [facility] [address] [phone] 06/09/2025 11:30 AM EDT Appointment [facility] [address] [address] documented as of this encounter Procedures Procedure [...] reflex microscopic (03/20/2025 12:00 AM EDT) Specific Bracey Urine 1.020 1.003 - 1.030 LAB URINALYSIS - AUTOMATED METHOD 03/20/2025 8:48 PM [facility] pH, Urine 6.0 5.0 - 8.0 pH LAB URINALYSIS - AUTOMATED METHOD 03/20/2025 8:48 PM [facility] Leukocytes, Urine Negative Negative LAB URINALYSIS - AUTOMATED METHOD 03/20/2025 8:48 PM [facility] Nitrite, Urine Negative Negative LAB URINALYSIS - AUTOMATED METHOD 03/20/2025 8:48 PM [facility] Protein, Urine Negative <=Trace mg/dL LAB URINALYSIS - AUTOMATED METHOD 03/20/2025 8:48 PM [facility] Glucose, Urine >=1000(A) Negative mg/dL LAB URINALYSIS - AUTOMATED METHOD 03/20/2025 8:48 PM [facility] Ketones, Urine Negative Negative mg/dL LAB URINALYSIS - AUTOMATED METHOD 03/20/2025 8:48 PM [facility] Urobilinogen , Urine 0.2 0.2 - 1.0 mg/dL LAB URINALYSIS - AUTOMATED METHOD 03/20/2025 8:48 PM EDT [facility] Bilirubin, Urine Negative Negative LAB URINALYSIS - AUTOMATED METHOD 03/20/2025 8:48 PM EDT [facility] Blood, Urine Negative Negative LAB URINALYSIS - AUTOMATED METHOD 03/20/2025 8:48 PM EDT [facility] RBC, Urine 1.6 0 - 4 /HPF LAB URINALYSIS - AUTOMATED METHOD 03/20/2025 8:48 PM EDT [facility] WBC, Urine 1.8 0 - 4 /HPF LAB URINALYSIS - AUTOMATED METHOD 03/20/2025 8:48 PM EDT [facility] Squamous Epithelial, Urine >100(H) 0 - 60 /LPF LAB URINALYSIS - AUTOMATED METHOD 03/20/2025 8:48 PM EDT [facility] Non-Squamous Epithelial, Urine 2-5 Transitional epithelial cells. /LPF 03/20/2025 8:48 PM EDT [facility] Bacteria, Urine Negative Negative /HPF LAB URINALYSIS - AUTOMATED METHOD 03/20/2025 8:48 PM EDT [facility] Hyaline Casts, Urine 0 0 - 3 /LPF LAB URINALYSIS - AUTOMATED METHOD 03/20/2025 8:48 PM [facility] Urine Urinary bladder structure / Unknown Non-blood Collection / Unknown 03/20/2025 03/20/2025 5:56 PM EDT us Sreekanth Lobato MD LAB URINE ORDERABLES Citlaly l Result [facility] [address] [place] [address], * (ABNORMAL) Culture urine (03/20/2025 12:00 AM EDT) Culture, Urine <1,000 CFU/mL Proteus mirabilis(A ) SAHRA 03/23/2025 8:28 AM EDT [facility] Comment: The organism value for [...] MICROBIOLOGY - GENERA L ORDERABLES Final Result [facility] [address] [place] [address], documented in this encounter Visit Diagnoses Diagnosis Urinary tract infection, site not specified documented in this encounter Care Teams Perioperative Manager Relationship Specialty Start Date End Date Jewel Rebolledo MD [address] [place] [address] PCP - General 09/25/22 documented as of this encounter
--- OUTSIDE RECORDS SUMMARY | 2025-05-01 11:08 | XMS_ITS ---
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 Radiation Treatments * No radiation treatments are documented for this patient in [facility]. Treatments may have been administered in another system.
--- OUTSIDE RECORDS SUMMARY | 2025-05-01 11:08 | XMS_ITS | Encounter Summary ---
Author Organization [facility] [place] [address] Care Team Providers Care Dielectric Testing Machine Operator Name Role Phone Jewel Rebolledo MD Primary Care Provider [phone] Encounter Details Date Type Department Care Team (Late Contact Info) Description 01/09/2025 Lab Requisition [facility] - Main Lab 299 [facility] [place] [address] Sreekanth Lobato MD 100 [facility] 120 [place] [address] Intrinsic sphincter deficiency (ISD); Urinary [...] [facility] [address] [phone] 06/09/2025 11:[address] [facility] [address] [place] [phone] documented as of this encounter Procedures Procedure [...] Enterococcus faecium Nitrofurantoin SAHRA 128 ug/ml: Resistant Sreekanth Lobato MD LAB MICROBIOLOGY - GENERA L ORDERABLES Final Result [facility] [address] [place] [address], documented in this encounter Visit Diagnoses Diagnosis Intrinsic sphincter deficiency (ISD) Urinary tract infection, site not specified documented in this encounter Care Teams Dielectric Testing Machine Operator Relationship Specialty Start Date End Date Jewel Rebolledo MD [address] [place] [address] PCP - General 09/25/22 documented as of this encounter
--- OUTSIDE RECORDS SUMMARY | 2025-05-01 11:08 | XMS_ITS | Encounter Summary ---
Author Organization [facility] Address [address] [place] [address] Care Team Providers Care Wire Mesh Knitter Name Role Phone Pcp, No Primary Care Provider Unavailabl e Encounter Details Date Type Department Care Team (Late st Contact Info) Description 09/29/2022 Scanned Document [facility] Urologic Surgery [address] [place] [address] Sreekanth Lobato MD Social History [...] on filedocumented in this encounter Care Teams Wire Mesh Knitter Relationship Specialty Start Date End Date Pcp, No PCP - General General Medicine 08/19/23 documented as of this encounter
--- OUTSIDE RECORDS SUMMARY | 2025-05-01 11:08 | XMS_ITS | Encounter Summary ---
Author Organization [facility] Address [address] [facility] [address] [place] [address] Phone Care Team Providers Care Brim And Crown Presser Name Role Phone Jewel Rebolledo MD Primary Care Provider [phone] Pcp, Not Required Unavailable Unavailable Wade Seo DO, Justine Unavailable [phone] Luis Aly MD Unavailable [phone] Hodan Rodriguez MD, MPH Unavailable [phone] Encounter Details Date Type Department Care Team (Late st Contact Info) Description 12/08/2024 Procedure Pass [facility], Ct Scan - [address] [address] Social History Tobacco Use Types Packs/Day Years [...] for Head [facility] Ne[facility] Oncology, [facility] [place] [address] [facility]th [place] [address] Francisca Dias MD, MPH [address] [place] [address] [email or web address] documented as of this encounter Visit Diagnoses Not on filedocumented in this encounter Care Teams Brim And Crown Presser Relationship Specialty Start Date End Date Jewel Rebolledo MD [address] [place] [phone] PCP - General Internal Medicine 12/08/24 Pcp, Not Required [address] [place] [phone] 12/08/24 Serenity Olvera DO [address] [place] [phone] [email or web address] 12/26/24 Luis Aly MD [address] [place] [phone] [email or web address] Medical Oncology 12/26/24 Hodan Rodriguez MD, MPH [address] [place] [phone] [email or web address] Dermatology 12/26/24 documented as of this encounter Additional Source Comments The information contained in this document represents components of the legal health record. It is not the complete legal health record.[facility]
--- OUTSIDE RECORDS SUMMARY | 2025-05-01 11:08 | XMS_ITS | Encounter Summary ---
Author Organization [facility] Address [address] [place] [address] Care Team Providers Care Stone Chimney Mason Name Role Phone Pcp, No Primary Care Provider Unavailabl e Encounter Details Date Type Department Care Team (Late st Contact Info) Description 01/13/2024 Scanned Document [facility] Urologic Surgery [address] [place] [address] Enoch Cardona MD [address] [phone] Social History Tobacco Use Types Packs/Day Years [...] on filedocumented in this encounter Care Teams Stone Chimney Mason Relationship Specialty Start Date End Date Pcp, No PCP - General General Medicine 08/19/23 documented as of this encounter
--- OUTSIDE RECORDS SUMMARY | 2025-05-01 11:08 | XMS_ITS | Encounter Summary ---
Author Organization [facility] Address [address] [place] [address] Phone Care Team Providers Care Children'S Program Coordinator Name Role Phone Jewel Rebolledo MD Primary Care Provider [phone] Pcp, Not Required Unavailable Unavailable Wade Seo DO, Justine Unavailable [phone] Luis Aly MD Unavailable [phone] Hodan Rodriguez MD, MPH Unavailable [phone] Encounter Details Date Type Department Care Team (Late st Contact Info) Description 02/27/2025 Telephone [facility] [address] [place] [address] Afua Weiss [address] [place] [address] [address] [place] [address] [email or web address] Social History Tobacco Use Types [...] Visit [facility], [facility] [place] [address]th [place] [address] Francisca Dias MD, MPH [address] [place] [address] [email or web address] documented as of this encounter Visit Diagnoses Not on filedocumented in this encounter Care Teams Children'S Program Coordinator Relationship Specialty Start Date End Date Jewel Rebolledo MD [address] [place] [phone] PCP - General Internal Medicine 12/08/24 Pcp, Not Required [address] [place] [address] 12/08/24 Serenity Olvera DO [address] [place] [phone] [email or web address] Medical Oncology 12/26/24 Luis Aly MD [address] [place] [phone] [email or web address] Medical Oncology 12/26/24 Hodan Rodriguez MD, MPH [address] [place] [phone] [email or web address] [email or web address] 12/26/24 documented as of this encounter Additional Source Comments The information contained in this document represents components of the legal health record. It is not the complete legal health record.[facility]
--- OUTSIDE RECORDS SUMMARY | 2025-05-01 11:08 | XMS_ITS | Clinical Summary ---
Author Organization [address] [facility] Address [address] [place] [address] Phone Care Team Providers Care Metal Furniture Polisher Name Role Phone Jewel Rebolledo MD Primary Care Provider [phone] Allergies Active Allergy Reactions Criticality Noted Date [...] Encounters Date Type Department Care Team Description 04/28/2025 11:30 AM EDT Hospital Encounter [facility] [address] [place] [phone] 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); Drug therapy; Hypothyroidism due to drugs 03/20/2025 Lab Requisition [facility] - Main Lab [address] [place] [phone] Sreekanth Lobato MD Urinary tract infection, site not specified 02/22/2025 Telephone [facility] Hematology Oncology [address] [place] [phone] Jack Russell MD 02/16/2025 Telephone [facility] [address] [place] [phone] Katie Mosqueda RN 01/31/2025 11:21 AM EDT - 01/31/2025 11:59 PM EDT Hospital Encounter [facility] [address] [place] [phone] 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); Squamous cell carcinoma of skin of face Discharge Disposition: Home or Self Care from Last 3 Months Social History Tobacco [...] 6 oz) 04/28/2025 11:53 AM EDT Height 167.6 cm (5' 6 ) 01/26/2025 11:43 AM EDT Body Mass Index 26.05 01/26/2025 11:43 AM EDT Plan of Treatment Upcoming Encounters Date Type Department Care Team (Late st Contact Info) Description 05/19/2025 11:30 AM EDT Appointment [facility] [address] [place] [phone] 06/09/2025 11:[address] [facility] [address] [place] [phone] Health Maintenance Due Date Last Done Comments Diabetes: Annual Foot Exam 1945 Diabetes: Annual Retina Eye Exam 1945 RSV Immunization Adult Patients (1 - 1-dose 75+ series) 2012 Pneumococcal Vaccine: 50+ Years (2 of 2 - PCV) 03/11/2022 03/11/2021 Cholesterol Screening (Lipid Panel) 07/27/2022 Medicare Annual Wellness Visit 07/27/2022 Social Influencers of Health Screening 07/27/2022 Depression Screening 08/24/2024 Diabetes: Blood Sugar Control Test (HGBA1C) 11/28/2024 COVID-19 Vaccine ( season) 2025 06/14/2021, 10/24/2020, 10/03/2020 Influenza Vaccine (#1) 2025 , 05/26/2023, 05/20/2022, Additional history exists Falls Risk Assessment 04/28/2026 04/28/2025 Hypertension/CHF/CAD Annual BMP Blood Test 04/28/2026 04/28/2025, 01/31/2025, 01/04/2025, Additional history exists DTaP,Tdap,and Td Vaccines (2 [...] Squamous cell carcinoma of skin of face URINALYSIS WITH REFLEX MICROSCOPIC Routine 03/20/2025 12:00 [...] from Last 3 Months Results * (ABNORMAL) CBC auto differential (04/28/2025 12:12 PM EDT) Only the most recent of2 resultswithin the time period is included. WBC 5.2 4.8 - 10.8 K/mcL LAB HEMETOLOGY METHOD 04/28/2025 1:10 PM [facility] RBC 3.10(L) 4.50 - 5.50 M/mcL LAB HEMETOLOGY METHOD 04/28/2025 1:10 PM [facility] Hemoglobin 9.4(L) 13.5 - 17.5 g/dL LAB HEMETOLOGY METHOD 04/28[facility]2025 [facility] Hematocrit 29.3(L) 42.0 - 54.0 % LAB HEMETOLOGY METHOD 04/28/2025 1:10 PM [facility] MCV 93.3 79.0 - 98.0 FL LAB HEMETOLOGY METHOD 04/28/2025 1:10 PM [facility] MCH 29.9 27.0 - 32.0 pcg LAB HEMETOLOGY METHOD 04/28/2025 1:10 PM EDT [facility] MCHC 32.1 32.0 - 37.0 g/dL LAB HEMETOLOGY METHOD 04/28/2025 1:10 PM EDT [facility] RDW 17.6(H) 11.0 - 15.0 % LAB HEMETOLOGY METHOD 04/28/2025 1:[facility] Platelets 97(L) 130 - 400 K/mcL LAB HEMETOLOGY METHOD 04/28/2025 1:10 PM EDT [facility] Comment:reviewed by slide MPV 9.8 7.0 - 11.0 FL LAB HEMETOLOGY METHOD 04/28/2025 1:10 PM [facility] NRBC 0.0 <1.0 % LAB HEMETOLOGY METHOD 04/28/2025 1:10 PM [facility] NRBC Absolute 0.00 <0.10 K/mcL LAB HEMETOLOGY METHOD 04/28/2025 1:10 PM [facility] Neutrophils Relative 56.4 % LAB HEMETOLOGY METHOD 04/28/2025 1:10 PM [facility] Lymphocytes Relative 19.1 % LAB HEMETOLOGY METHOD 04/28/2025 1:10 PM [facility] Monocytes Relative 10.1 % LAB HEMETOLOGY METHOD 04/28/2025 1:10 PM [facility] Eosinophils Relative 12.8 % LAB HEMETOLOGY METHOD 04/28/2025 1:10 PM [facility] Basophils Relative 0.6 % LAB HEMETOLOGY METHOD 04/28/2025 1:10 PM [facility] Immature Granulocytes Relative 1.0 % LAB HEMETOLOGY METHOD 04/28/2025 1:10 PM [facility] Neutrophils Absolute 2.92 1.50 - 7.00 K/mcL LAB HEMETOLOGY METHOD 04/28/2025 1:10 PM EDT [facility] Lymphocytes Absolute 0.99(L) 1.00 - 5.00 K/mcL LAB HEMETOLOGY METHOD 04/28/2025 1:10 PM EDT [facility] Monocytes Absolute 0.52 0.20 - 1.00 K/[facility] LAB HEMETOLOGY METHOD 04/28/2025 1:10 PM EDT [facility] Eosinophils Absolute 0.66(H) 0.00 - 0.50 K/mcL LAB HEMETOLOGY METHOD 04/28/2025 1:10 PM EDT [facility] Basophils Absolute 0.03 0.00 - 0.20 K/[facility] LAB HEMETOLOGY METHOD 04/28/2025 1:10 PM EDT [facility] Immature Granulocytes Absolute 0.05(H) 0.00 - 0.03 K/[facility] LAB HEMETOLOGY METHOD 04/28/2025 1:10 PM EDT [facility] Blood Venous blood specimen / Unknown Venipuncture / Unknown 04/28/2025 12:12 PM EDT 04/28/2025 12:16 PM EDT Subrambk Russell MD LAB BLOOD ORDERABLE S Final Result [facility] [address] [place] [address], * Thyroid stimulating hormone (04/28/2025 12:12 PM EDT) Only the most recent of2 resultswithin the time period is included. TSH 2.29 0.40 - 4.00 mcIU/mL LAB CHEMISTRY METHOD 04/28/2025 1:51 PM EDT [facility] Blood Venous blood specimen / Unknown Venipuncture / Unknown 04/28/2025 12:12 PM EDT 04/28/2025 12:16 PM EDT Jack Russell MD LAB BLOOD ORDERABLE S Final Result [facility] [address] [place] [address], [place] [phone] * (ABNORMAL) Comprehensive metabolic panel (04/28/2025 12:12 PM EDT) Only the most recent of2 resultswithin the time period is included. Sodium 137 133 - 145 mmol/L LAB CHEMISTRY METHOD 04/28/2025 12:51 PM [facility] Potassium 4.1 3.5 - 5.5 mmol/L LAB CHEMISTRY METHOD 04/28/2025 12:51 PM [facility] Chloride 106 96 - 110 mmol/L LAB CHEMISTRY METHOD 04/28/2025 12:51 PM [facility] CO2 28 21 - 32 mmol/L LAB CHEMISTRY METHOD 04/28/2025 12:51 PM [facility] Anion Gap 3 3 - 11 LAB CHEMISTRY METHOD 04/28/2025 12:51 PM [facility] Glucose 257(H) 70 - 100 mg/dL LAB CHEMISTRY METHOD 04/28/2025 12:51 PM [facility] BUN 29(H) 5 - 25 mg/dL LAB CHEMISTRY METHOD 04/28/2025 12:51 PM [facility] Creatinine 1.22 0.70 - 1.30 mg/dL LAB CHEMISTRY METHOD 04/28/2025 12:51 PM [facility] eGFR 57(L) >=60 mL/min/1. 73m2 LAB CHEMISTRY METHOD 04/28/2025 12:51 PM [facility] Comment:Calculation based on the Chronic Kidney Disease Epidemiology Collaboration (CKD-EPI) equation refit without adjustment for race. BUN/Creatinine Ratio 23.8 LAB CHEMISTRY METHOD 04/28/2025 12:51 PM EDT [facility] Calcium 8.8 8.5 - 10.5 mg/dL LAB CHEMISTRY METHOD 04/28/2025 12:51 PM [facility] AST (SGOT) 54(H) 10 - 42 unit/L LAB CHEMISTRY METHOD 04/28/2025 12:51 PM [facility] ALT (SGPT) 61(H) 10 - 60 unit/L LAB CHEMISTRY METHOD 04/28/2025 12:51 PM [facility] Alkaline Phosphatase 208(H) 42 - 121 unit/L LAB CHEMISTRY METHOD 04/28/2025 12:51 PM [facility] Total Protein 6.0 6.0 - 8.0 g/dL LAB CHEMISTRY METHOD 04/28/2025 12:51 PM [facility] Albumin 2.9(L) 3.2 - 5.0 g/dL LAB CHEMISTRY METHOD 04/28/2025 12:51 PM [facility] Total Bilirubin 0.5 0.0 - 1.4 mg/dL LAB CHEMISTRY METHOD 04/28/2025 12:51 PM [facility] Blood Venous blood specimen / Unknown Venipuncture / Unknown 04/28/2025 12:12 PM EDT 04/28/2025 12:16 PM EDT us Subramony SubAnnie NATHAN LAB BLOOD ORDERABLE S Final Result [facility] [address] [place] [address], * (ABNORMAL) Urinalysis with reflex microscopic (03/20/2025 12:00 AM EDT) Specific Anderson Urine 1.020 1.003 - 1.030 LAB URINALYSIS - AUTOMATED METHOD 03/20/2025 8:48 PM [facility] pH, Urine 6.0 5.0 - 8.0 pH LAB URINALYSIS - AUTOMATED METHOD 03/20/2025 8:48 PM [facility] Leukocytes, Urine Negative Negative LAB URINALYSIS - AUTOMATED METHOD 03/20/2025 8:48 PM [facility] Nitrite, Urine Negative Negative LAB URINALYSIS - AUTOMATED METHOD 03/20/2025 8:48 PM [facility] Protein, Urine Negative <=Trace mg/dL LAB URINALYSIS - AUTOMATED METHOD 03/20/2025 8:48 PM [facility] Glucose, Urine >=1000(A) Negative mg/dL LAB URINALYSIS - AUTOMATED METHOD 03/20/2025 8:48 PM [facility] Ketones, Urine Negative Negative mg/dL LAB URINALYSIS - AUTOMATED METHOD 03/20/2025 8:48 PM [facility] Urobilinogen , Urine 0.2 0.2 - 1.0 mg/dL LAB URINALYSIS - AUTOMATED METHOD 03/20/2025 8:48 PM [facility] Bilirubin, Urine Negative Negative LAB URINALYSIS - AUTOMATED METHOD 03/20/2025 8:48 PM [facility] Blood, Urine Negative Negative LAB URINALYSIS - AUTOMATED METHOD 03/20/2025 8:48 PM [facility] RBC, Urine 1.6 0 - 4 /HPF LAB URINALYSIS - AUTOMATED METHOD 03/20/2025 8:48 PM [facility] WBC, Urine 1.8 0 - 4 /HPF LAB URINALYSIS - AUTOMATED METHOD 03/20/2025 8:48 PM [facility] Squamous Epithelial, Urine >100(H) 0 - 60 /LPF LAB URINALYSIS - AUTOMATED METHOD 03/20/2025 8:48 PM [facility] Non-Squamous Epithelial, Urine 2-5 Transitional epithelial cells. /LPF 03/20/2025 8:48 PM EDT [facility] Bacteria, Urine Negative Negative /HPF LAB URINALYSIS - AUTOMATED METHOD 03/20/2025 8:48 PM EDT [facility] Hyaline Casts, Urine 0 0 - 3 /LPF LAB URINALYSIS - AUTOMATED METHOD 03/20/2025 8:48 PM EDT [facility] Urine Urinary bladder structure / Unknown Non-blood Collection / Unknown 03/20/2025 03/20/2025 5:56 PM EDT us Sreekanth Lobato MD LAB URINE ORDERABLES Citlaly sarah Result [facility] [address] [place] [address], * (ABNORMAL) Culture urine (03/20/2025 12:00 AM EDT) Culture, Urine <1,000 CFU/mL Proteus mirabilis(A ) SAHRA 03/23/2025 8:28 AM EDT [facility] Comment: The organism value for [...] MICROBIOLOGY - GENERA L ORDERABLES Final Result Performing Organization Address [facility]/ZIP Co de Phone Number [facility] [address] [place] [address], [place] [phone] * Magnesium (01/31/2025 12:04 PM EDT) Magnesium 2.2 1.9 - 2.6 mg/dL LAB CHEMISTRY METHOD 01/31/2025 12:39 PM EDT [facility] Blood Venous blood specimen / Unknown Venipuncture / Unknown 01/31/2025 12:04 PM EDT 01/31/2025 12:14 PM EDT Jack Russell MD LAB BLOOD ORDERABLE S Final Result Performing Organization Address [facility] Co de Phone Number [facility] [address] [place] [address], [place] [phone] from Last 3 Months Insurance MEDICARE [facility] Advance Directives Documents on File Type Date Recorded Patient Extrusion Press Supervisor [facility] Care Decision (hx) 01/27/2024 AD MANDEL DIRECTIVE Care Teams Metal Furniture Polisher Relationship Specialty Start Date End Date Jewel Rebolledo MD [address] [facility] [place] PCP - General 09/25/22
--- OUTSIDE RECORDS SUMMARY | 2025-05-01 11:08 | XMS_ITS | Encounter Summary ---
Author Organization [facility] [place] [address] Care Team Providers Care Purchasing And Claims Supervisor Name Role Phone Jewel Rebolledo MD Primary Care Provider [phone] Encounter Details Date Type Department Care Team (Latest Contact Info) Description 06/27/2024 Lab Requisition [facility] - Main Lab [address] [place] [address] Lamonte Sagastume MD [address] [place] [phone] Direct infection of left ankle and foot [...] Info) Description 05/19/2025 11:30 AM EDT Appointment [facility] [address] [phone] 06/09/2025 11:30 AM EDT Appointment [facility] [address] 2nd [place] [phone] documented as of this encounter Procedures Procedure Name Priority Date/Time Associated Diagnosis Comments COMPLETE BLOOD COUNT Routine 06/27/2024 4:47 AM EST 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 ([facility]/HCC) Unspecified fall, initial encounter Type 2 diabetes mellitus without complications ([facility]) BASIC METABOLIC PANEL Routine 06/27/2024 4:47 AM EST 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 ([facility]/HCC) Unspecified fall, initial encounter Type 2 diabetes mellitus without complications ([facility]) documented in this encounter Results * (ABNORMAL) Complete blood count (06/27/2024 4:47 AM EST) WBC 5.6 4.8 - 10.8 K/mcL LAB HEMETOLOGY METHOD 06/27/2024 11:31 AM [facility] RBC 3.50(L) 4.50 - 5.50 M/mcL LAB HEMETOLOGY METHOD 06/27/2024 11:31 AM [facility] Hemoglobin 9.7(L) 13.5 - 17.5 g/dL LAB HEMETOLOGY METHOD 06/27/2024 11:31 AM [facility] Hematocrit 31.4(L) 42.0 - 54.0 % LAB HEMETOLOGY METHOD 06/27/2024 11:31 AM [facility] MCV 90.0 79.0 - 98.0 FL LAB HEMETOLOGY METHOD 06/27/2024 11:31 AM [facility] MCH 27.8 27.0 - 32.0 pcg LAB HEMETOLOGY METHOD 06/27/2024 11:31 AM [facility] MCHC 30.9(L) 32.0 - 37.0 g/dL LAB HEMETOLOGY METHOD 06/27/2024 11:31 AM EST [facility] RDW 17.8(H) 11.0 - 15.0 % LAB HEMETOLOGY METHOD 06/27/2024 11:31 AM [facility] Platelets 158 130 - 400 K/mcL LAB HEMETOLOGY METHOD 06/27/2024 11:31 AM [facility] MPV 10.5 7.0 - 11.0 FL LAB HEMETOLOGY METHOD 06/27/2024 11:31 AM [facility] NRBC 0.0 <1.0 % LAB HEMETOLOGY METHOD 06/27/2024 11:31 AM [facility] NRBC Absolute 0.00 <0.10 K/mcL LAB HEMETOLOGY METHOD 06/27/2024 11:31 AM [facility] Blood Venous blood specimen / Unknown Venipuncture / Unknown 06/27/2024 4:47 AM EST 06/27/2024 10:54 AM EST us Lamonte Sagastume MD LAB BLOOD ORDERABLES Final Res ult [facility] [address] [place] [address], * (ABNORMAL) Basic metabolic panel (06/27/2024 4:47 AM EST) Sodium 140 133 - 145 mmol/L LAB CHEMISTRY METHOD 06/27/2024 11:34 AM [facility] Potassium 4.1 3.5 - 5.5 mmol/L LAB CHEMISTRY METHOD 06/27/2024 11:34 AM [facility] Chloride 103 96 - 110 mmol/L LAB CHEMISTRY METHOD 06/27/2024 11:34 AM [facility] CO2 33(H) 21 - 32 mmol/L LAB CHEMISTRY METHOD 06/27/2024 11:34 AM [facility] Anion Gap 4 3 - 11 LAB CHEMISTRY METHOD 06/27/2024 11:34 AM [facility] Glucose 94 70 - 100 mg/dL LAB CHEMISTRY METHOD 06/27/2024 11:34 AM [facility] BUN 51(H) 5 - 25 mg/dL LAB CHEMISTRY METHOD 06/27/2024 11:34 AM [facility] Creatinine 0.96 0.70 - 1.30 mg/dL LAB CHEMISTRY METHOD 06/27/2024 11:34 AM [facility] eGFR 77 >=60 mL/min/1. 73m2 LAB CHEMISTRY METHOD 06/27/2024 11:34 AM [facility] Comment:Calculation based on the Chronic Kidney Disease Epidemiology Collaboration (CKD-EPI) equation refit without adjustment for race. 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
--- OUTSIDE RECORDS SUMMARY | 2025-05-01 11:08 | XMS_ITS | Clinical Summary ---
Author Organization [facility] Address [address] [place] [address] Care Team Providers Care Dryer Feeder Name Role Phone Pcp, No Primary Care [...] s (ZINC PO) Take by mouth. Active [place]-3 Fatty Acids (FISH OIL PO) Take by [...] Health Maintenance Due Date Last Done Comments Advance Care Planning 1935 DTaP/Tdap/Td Vaccines (1 - Tdap) 1956 Pneumococcal Vaccines 50+ (1 of 1 - PCV) 1987 Zoster (Shingles) Vaccine (1 of 2) 1987 RSV Vaccine 60 years and older and Patients (1 - 1-dose 75+ series) 2012 Influenza Vaccine 03/24/2025 05/20/2022, , 05/21/2020, Additional history exists COVID-19 Vaccine (2024- season) 2025 06/14/2021, 10/24/2020, 10/03/2020 Hepatitis B Vaccines Aged Out No long er eligible based on patient's age to complete this topic Insurance MEDICARE PART A & B BLUE [place] [facility] - PPO Care Teams Dryer Feeder Relationship Specialty Start Date End Date Pcp, No PCP - General General Medicine 08/19/23
--- OUTSIDE RECORDS SUMMARY | 2025-05-01 11:08 | XMS_ITS | Encounter Summary ---
Author Organization [facility] Address [address] [place] [address] Phone Care Team Providers Care Hematologist Oncologist Name Role Phone Jewel Rebolledo MD Primary Care Provider [phone] Pcp, Not Required Unavailable Unavailable Wade Seo DO, Justine Unavailable [phone] Luis Aly MD Unavailable [phone] Hodan Rodriguez MD, MPH Unavailable [phone] Encounter Details Date Type Department Care Team (Late st Contact Info) Description 02/27/2025 Telephone [facility] [address] [place] [address] Afua Weiss [address] [place] [address] [address] [place] [address] [email or web address] Social History Tobacco Use Types [...] It is documented on February 23 that [facility] was informed hisdermatology care( skin cancers) [...] for Head and Neck Oncology, [facility] [place] [address] [place] [address] Francisca Dias MD, MPH [address] [place] [phone] [email or web address] documented as of this encounter Visit Diagnoses Not on filedocumented in this encounter Care Teams Hematologist Oncologist Relationship Specialty Start Date End Date Jewel Rebolledo MD [address] [place] [phone] PCP - General Internal Medicine 12/08/24 Pcp, Not Required [address] [place] [phone] 12/08/24 Serenity Olvera DO [address] [place] [phone] [email or web address] Medical Oncology 12/26/24 Luis Aly MD [address] [place] [phone] [email or web address] 12/26/24 Hodan Rodriguez MD, MPH [address] [place] [phone] [email or web address] Dermatology 12/26/24 documented as of this encounter Additional Source Comments The information contained in this document represents components of the legal health record. It is not the complete legal health record.[facility]
--- OUTSIDE RECORDS SUMMARY | 2025-05-01 11:08 | XMS_ITS | Clinical Summary ---
Author Organization [facility] Address [address] [facility] [address] [place] [address] Phone Care Team Providers Care Career And Guidance Counselor Name Role Phone Jewel Rebolledo MD Primary Care Provider [phone] Pcp, Not Required Unavailable Unavailable Wade Seo DO, Justine Unavailable [phone] Luis Aly MD Unavailable [phone] Hodan Rodriguez MD, MPH Unavailable [phone] Medications LANTUS SOLOSTAR U-100 INSULIN 100 unit/mL (3 mL) InPn injection pen 0.1 ml Subcutaneous Once a day for 30 day(s) Active insulin aspart U-100 (NOVOLOG U-100 INSULIN ASPART) 100 unit/mL injection vial as directed Subcutaneous Active isosorbide dinitrate (ISORDIL) 30 MG immediate release tablet 1 tablet Orally Twice a day Active isosorbide mononitrate (IMDUR) 30 MG 24 hr tablet 3 Active losartan (COZAAR) 25 MG tablet 3 Active metoprolol succinate (TOPROL-XL) 25 MG 24 hr tablet Acti ve metoprolol tartrate (LOPRESSOR) 50 MG tablet Take 1 tablet by mouth 2 (two) times a day. 4 Active OLANZapine (ZYPREXA) 2.5 MG tablet Take 2.5 mg by mouth nightly at bedtime. Active oxyCODONE HCl 10 mg Tab Take 1 tablet by mouth every 4 (four) hours as needed. Active Active Problems Problem Noted Date Diagnosed Date Squamous cell carcinoma of skin of face 11/17/19 25 Encounters Date Type Department Care Team Description 04/20/2025 Telephone [facility] [address] [place] [address] Rojelio Gallardo MD 04/13/2025 11:45 AM EDT Infusion [facility] Imaging Department, [facility], Imaging [place] [address] [facility], [address] [place] [address] Hodan Rodriguez MD, MPH Diane Molina, TONO 04/13/2025 11:28 AM EDT - 04/13/2025 11:59 PM EDT Hospital Encounter [facility] Imaging Department, [facility], [place] [address] [facility], [address] [place] [address] Hodan Rodriguez MD, MPH Discharge Disposition: Home or Self Care 04/13/2025 10:20 AM EDT Office Visit [facility], [facility] [address] [facility], 5th [place] [address] Hodan Rodriguez MD, MPH Squamous cell carcinoma of forehead (Primary Dx) 04/13/2025 Procedure Pass [facility] Imaging Department, [facility], [place] [address] [facility], [address] [place] [address] 04/13/2025 Procedure Pass [facility] Imaging Department, [facility], [place] [address] [facility], [address] [place] [address] 02/27/2025 Telephone [facility] Center [address] [place] [address] Afua Weiss 02/27/2025 Telephone [facility] Center [address] [address] Afua Weiss 02/22/2025 Telephone [facility], [facility] [address] [facility], 5th [place] [address] Janette Stevenson, RN Care Coordination from Last 3 Months Social History Tobacco [...] Orientation Straight 12/08/2024 12 :51 PM EDT Last Filed Vital Signs Vital Sign Reading Time Taken Comments Blood Pressure 119/69 04/13/2025 9:51 AM EDT Pulse 69 04/13/2025 9:51 AM EDT Temperature 36.2 C (97.2 F) 04/13/2025 9:51 AM EDT Respiratory Rate 16 04/13/2025 9:49 AM EDT Oxygen Saturation 100% 04/13/2025 9:51 AM EDT Inhaled Oxygen Concentration - - Weight - - Height - - Body Mass Index - - Plan of Treatment Upcoming Encounters Date Type Department Care Team (Late st Contact Info) Description 05/02/2025 9:30 AM EDT Office Visit [facility], [facility] [address] [place] [address], 11th [place] [address] Francisca Dias MD, MPH [address] [place] [address] [email or web address] Health Maintenance Due Date Last Done Comments DEPRESSION SCREENING 1947 RSV VACCINE (1 - 1-dose 75+ series) 2012 PNEUMOCOCCAL VACCINES (50+ years) (2 of 2 - PCV) 03/11/2022 03/11/2021 INFLUENZA VACCINE (#1) 2025 4, 05/26/2023, 05/20/2022, Additional history exists COVID-19 VACCINE ( season) 2025 06/14/2021, 10/24/2020, 10/03/2020 POTASSIUM LEVEL 12/15/2025 12/15/2024 CREATININE LEVEL 04/13/2026 04/13/2025, , 12/14/2024 Adult Td,Tdap Booster 04/11/2030 04/11/2020 ZOSTER VACCINES Completed 06/05/2021, 02/22/2021 HEPATITIS A VACCINES Aged Out No long er eligible based on patient's age to complete this topic HIB VACCINES Aged Out No longer eligi ble based on patient's age to complete this topic MENINGOCOCCAL VACCINES (ACWY) Aged Out No longer eligible based on patient's age to complete this topic MENINGOCOCCAL VACCINES (B) Aged Out N o longer eligible based on patient's age to complete this topic Medical Devices Not on file Procedures Procedure Name Priority Date/Time Associated Diagnosis Comments CT HEAD WITH AND WITHOUT CONTRAST Routine 04/13/2025 12:31 PM EDT Squamous cell carcinoma of forehead CT NECK SOFT TISSUE WITH CONTRAST Routine 04/13/2025 12:31 PM EDT Squamous cell carcinoma of forehead POCT CREATININE/EGFR Routine 04/13/2025 12:00 PM EDT COMPREHENSIVE METABOLIC PANEL Routine 12/15/2024 10:05 AM EDT 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 from Last 3 Months or Most Recently Relevant to Health Maintenance Results * CT NECK SOFT TISSUE WITH CONTRAST [...] clinician's provided indication for this examination in [facility]:Skin cancer, surveillance; Pt with [...] IMG CT XSPECIALTY ORDERABLE S Final Result * CT HEAD WITH AND WITHOUT CONTRAST [...] IMG CT HEAD/NECK Final Resu lt * POCT Creatinine/eGFR (04/13/2025 12:00 PM EDT) Creatinine 1.00 0.50 - 1.20 mg/dl [facility] LIC# [id number] EGFR 73 >59 mL/min/1.7 3m2 [facility] LIC# [id number] Comment:Estimated glomerular filtration rate calculated using the CKD-EPI refit equation. 04/13/2025 12:0 0 PM EDT 04/13/2025 12:02 PM EDT us Hodan Rodriguez MD, MPH POINT OF CARE TEST ORDERABL ES Final Result [facility] LIC# [id number] [address] [place] [address] * (ABNORMAL) Comprehensive metabolic panel (12/15/2024 10:05 AM EDT) SODIUM 138 133 - 146 mmol/L [facility] POTASSIUM 3.9 3.3 - 5.1 mmol/L [facility] CHLORIDE 100 96 - 108 mmol/L [facility] CO2 30 21 - 35 mmol/L [facility] BUN 30(H) 6 - 19 mg/dL [facility] CREATININE 1.30 0.5 - 1.5 mg/dL [facility] GLUCOSE 253(H) 70 - 99 mg/dL [facility] ALBUMIN 3.7(L) 3.9 - 4.8 g/dL [facility] TOTAL PROTEIN 7.2 6.5 - 8.0 g/dL [facility] CALCIUM 9.6 8.4 - 10.3 mg/dL [facility] ALKALINE PHOSPHATASE 142(H) 39 - 117 U/L [facility] TOTAL BILIRUBIN 0.6 0.0 - 1.2 mg/dL [facility] AST 32 0 - 37 U/L [facility] ALT 22 0 - 40 U/L [facility] GLOBULIN 3.5 1 - 4.8 g/dL [facility] EGFR 53(L) >59 mL/min/1.7 3m2 [facility] Comment:Estimated glomerular filtration rate calculated using the CKD-EPI refit equation. ANION GAP 12 10 - 20 mmol/L [facility] Blood 12/15/2024 10:0 5 AM EDT 12/15/2024 10:07 AM EDT us Diann Gutierres MD, PhD LAB BLOOD ORD ERABLES Final Result [facility] [address] [place] [address] from Last 3 Months or Most Recently Relevant to Health Maintenance Insurance MEDICARE PART A & B [employer] MEDEX SUPPLEMENT MEDICARE PART A & B [employer] MEDEX SUPPLEMENT MEDICARE PART A & B [employer] MEDEX SUPPLEMENT MEDICARE PART A & B Member Subscriber Plan / Payer (Ef fective 2002-Present) Name:Jewel Canales Member ID:[id number] Relation to Subscriber:Self Name:Jewel Canales Subscriber ID:[id number] Payer ID:[id number] Group ID:Not on file Type:Medicare Address: [employer] [address] [place] [phone] Nominum CROSS MEDEX SUPPLEMENT MEDICARE PART A & B [employer] MEDEX SUPPLEMENT MEDICARE PART A & B [employer] MEDEX SUPPLEMENT Care Teams Career And Guidance Counselor Relationship Specialty Start Date End Date Jewel Rebolledo MD [address] [place] [phone] PCP - General Internal Medicine 12/08/24 Pcp, Not Required [address] [place] [address] 12/08/24 Serenity Olvera DO [address] [place] [phone] [email or web address] Medical Oncology 12/26/24 Luis Aly MD [address] [place] [address] [email or web address] Medical Oncology 12/26/24 Hodan Rodriguez MD, MPH [address] [place] [address] [email or web address] 12/26/24 Additional Source Comments The information contained in this document represents components of the legal health record. It is not the complete legal health record.[facility]
--- OUTSIDE RECORDS SUMMARY | 2025-05-01 11:08 | XMS_ITS | Encounter Summary ---
Author Organization [facility] [place] [address] Care Team Providers Care Correctional Probation Officer Name Role Phone Jewel Rebolledo MD Primary Care Provider [phone] Encounter Details Date Type Department Care Team (Latest Contact Info) Description 06/28/[address] [facility] Lab [address] [place] [phone] Lamonte Sagastume MD [address] [place] [address] Type 2 diabetes mellitus without complications (CMS/HCC [...] Info) Description 05/19/2025 11:30 AM EDT Appointment [facility] [address] [phone] 06/09/2025 11:30 AM EDT Appointment [facility] [address] [phone] documented as of this encounter Procedures Procedure [...] LAB CHEMISTRY METHOD 06/28/2024 2:41 PM EST [facility] Blood Venous blood specimen / Unknown Venipuncture / Unknown 06/28/2024 6:01 AM EST 06/28/2024 11:11 AM EST Lamonte Sagastume MD LAB BLOOD ORDERABLES Final Res ult Performing Organization Address City/[facility]/ZIP Co de Phone Number [facility] [address] [place] [address], [place] [phone] * Phosphorus (06/28/2024 6:01 AM EST) Phosphorus 2.9 2.5 - 4.5 mg/dL LAB CHEMISTRY METHOD 06/28/2024 2:41 PM EST [facility] Blood Venous blood specimen / Unknown Venipuncture / Unknown 06/28/2024 6:01 AM EST 06/28/2024 11:11 AM EST us Lamonte Sagastume MD LAB BLOOD ORDERABLES Final Res ult [facility] [address] [place] [address], * (ABNORMAL) Complete blood count (06/28/2024 6:01 AM EST) [facility] WBC 5.4 4.8 - 10.8 K/mcL LAB HEMETOLOGY METHOD 06/28/2024 12:41 PM [facility] RBC 3.60(L) 4.50 - 5.50 M/mcL LAB HEMETOLOGY METHOD 06/28/2024 12:41 PM [facility] Hemoglobin 9.7(L) 13.5 - 17.5 g/dL LAB HEMETOLOGY METHOD 06/28/2024 12:41 PM [facility] Hematocrit 31.9(L) 42.0 - 54.0 % LAB HEMETOLOGY METHOD 06/28/2024 12:41 PM [facility] MCV 89.9 79.0 - 98.0 FL LAB HEMETOLOGY METHOD 06/28/2024 12:41 PM [facility] MCH 27.3 27.0 - 32.0 pcg LAB HEMETOLOGY METHOD 06/28/2024 12:41 PM [facility] MCHC 30.4(L) 32.0 - 37.0 g/dL LAB HEMETOLOGY METHOD 06/28/2024 12:41 PM [facility] RDW 18.2(H) 11.0 - 15.0 % LAB HEMETOLOGY METHOD 06/28/2024 12:41 PM [facility] Platelets 164 130 - 400 K/mcL LAB HEMETOLOGY METHOD 06/28/2024 12:41 PM [facility] MPV 10.8 7.0 - 11.0 FL LAB HEMETOLOGY METHOD 06/28/2024 12:41 PM [facility] NRBC 0.0 <1.0 % LAB HEMETOLOGY METHOD 06/28/2024 12:41 PM [facility] NRBC Absolute 0.00 <0.10 K/mcL LAB HEMETOLOGY METHOD 06/28/2024 12:41 PM [facility] Blood Venous blood specimen / Unknown Venipuncture / Unknown 06/28/2024 6:01 AM EST 06/28/2024 11:11 AM EST us Lamonte Sagastume MD LAB BLOOD ORDERABLES Final Res ult [facility] [address] [place] [address], * (ABNORMAL) Comprehensive metabolic panel (06/28/2024 6:01 AM EST) Sodium 138 133 - 145 mmol/L LAB CHEMISTRY METHOD 06/28/2024 2:45 PM [facility] Potassium 4.1 3.5 - 5.5 mmol/L LAB CHEMISTRY METHOD 06/28/2024 2:45 PM [facility] Chloride 102 96 - 110 mmol/L LAB CHEMISTRY METHOD 06/28/2024 2:45 PM [facility] CO2 33(H) 21 - 32 mmol/L LAB CHEMISTRY METHOD 06/28/2024 2:45 PM [facility] Anion Gap 3 3 - 11 LAB CHEMISTRY METHOD 06/28/2024 2:45 PM [facility] Glucose 213(H) 70 - 100 mg/dL LAB CHEMISTRY METHOD 06/28/2024 2:45 PM [facility] BUN 47(H) 5 - 25 mg/dL LAB CHEMISTRY METHOD 06/28/2024 2:45 PM [facility] Creatinine 1.02 0.70 - 1.30 mg/dL LAB CHEMISTRY METHOD 06/28/2024 2:45 PM [facility] eGFR 72 >=60 mL/min/1. 73m2 LAB CHEMISTRY METHOD 06/28/2024 2:45 PM [facility] Comment:Calculation based on the Chronic Kidney Disease Epidemiology Collaboration (CKD-EPI) equation refit without adjustment for race. BUN/Creatinine Ratio 46.1 LAB CHEMISTRY METHOD 06/28/2024 2:45 PM [facility] Calcium 8.5 8.5 - 10.5 mg/dL LAB CHEMISTRY METHOD 06/28/2024 2:45 PM [facility] AST (SGOT) 25 10 - 42 unit/L LAB CHEMISTRY METHOD 06/28/2024 2:45 PM [facility] ALT (SGPT) 47 10 - 60 unit/L LAB CHEMISTRY METHOD 06/28/2024 2:45 PM [facility] Alkaline Phosphatase 150(H) 42 - 121 unit/L LAB CHEMISTRY METHOD 06/28/2024 2:45 PM [facility] Total Protein 5.5(L) 6.0 - 8.0 g/dL LAB CHEMISTRY METHOD 06/28/2024 2:45 PM [facility] Albumin 2.7(L) 3.2 - 5.0 g/dL LAB CHEMISTRY METHOD 06/28/2024 2:45 PM [facility] Total Bilirubin 0.3 0.0 - 1.4 mg/dL LAB CHEMISTRY METHOD 06/28/2024 2:45 PM [facility] Blood Venous blood specimen / Unknown Venipuncture / Unknown 06/28/2024 6:01 AM EST 06/28/2024 11:11 AM EST us Lamonte Sagastume MD LAB BLOOD ORDERABLES Final Res ult [facility] [address] [place] [address], [place] [phone] documented in this encounter Visit Diagnoses Diagnosis Type 2 diabetes mellitus without complications (CMS/HCC V24, CMS/HCC V28) documented in this encounter Care Teams Correctional Probation Officer Relationship Specialty Start Date End Date Jewel Rebolledo MD [address] [place] PCP - General 09/25/22 documented as of this encounter
--- OUTSIDE RECORDS SUMMARY | 2025-05-01 11:09 | XMS_ITS | Encounter Summary ---
Author Organization [facility] Address [address] [place] [address] Care Team Providers Care Automotive Machinist Name Role Phone Pcp, No Primary Care Provider Unavailabl e Reason for Visit * Reason Comments Appointment Encounter Details Date Type Department Care Team (Late st Contact Info) Description 01/13/2024 Telephone [facility] Center [address] [place] [address] Enoch Cardona MD [address] [phone] Appointment Social History Tobacco Use Types Packs/Day [...] on filedocumented in this encounter Care Teams Automotive Machinist Relationship Specialty Start Date End Date Pcp, No PCP - General General Medicine 08/19/23 documented as of this encounter
--- OUTSIDE RECORDS SUMMARY | 2025-05-01 11:09 | XMS_ITS | Encounter Summary ---
Author Organization [facility] Address [address] [place] [address] Care Team Providers Care Sweatband Flanger Name Role Phone Pcp, No Primary Care Provider Unavailabl e Reason for Visit * Reason Comments Appointment Encounter Details Date Type Department Care Team (Late st Contact Info) Description 12/03/2023 Telephone [facility] [address] [place] [address] Enoch Cardona MD [address] [phone] Appointment Social History Tobacco Use Types Packs/Day [...] on filedocumented in this encounter Care Teams Sweatband Flanger Relationship Specialty Start Date End Date Pcp, No PCP - General General Medicine 08/19/23 documented as of this encounter
--- OUTSIDE RECORDS SUMMARY | 2025-05-01 11:09 | XMS_ITS | Encounter Summary ---
Author Organization [facility] Address [address] [facility] [address] [place] [address] Phone Care Team Providers Care Forest Ecologist Name Role Phone Jewel Rebolledo MD Primary Care Provider [phone] Pcp, Not Required Unavailable Unavailable Wade Seo DO, Justine Unavailable [phone] Luis Aly MD Unavailable [phone] Hodan Rodriguez MD, MPH Unavailable [phone] Encounter Details Date Type Department Care Team (Late st Contact Info) Description 04/13/2025 Procedure Pass [facility], [facility] [place] [place] [address] [facility], Floor [address] [place] [address] Social History Tobacco Use Types Packs/Day Years [...] for Head and Neck Oncology, [facility] [place] [address] [facility], 11th [place] [address] Francisca Dias MD, MPH [address] [place] [address] [email or web address] documented as of this encounter Visit Diagnoses Not on filedocumented in this encounter Care Teams Forest Ecologist Relationship Specialty Start Date End Date Jewel Rebolledo MD [address] [place] [phone] PCP - General Internal Medicine 12/08/24 Pcp, Not Required [address] [place] [address] 12/08/24 Serenity Olvera DO [address] [place] [phone] [email or web address] Medical [email or web address] 12/26/24 Luis Aly MD [address] [place] [address] Medical Oncology 12/26/24 Hodan Rodriguez MD, MPH [address] [place] [address] [email or web address] 12/26/24 documented as of this encounter Additional Source Comments The information contained in this document represents components of the legal health record. It is not the complete legal health record.[facility]
--- OUTSIDE RECORDS SUMMARY | 2025-05-01 11:09 | XMS_ITS | Encounter Summary ---
Author Organization [facility] Address [address] [facility] [address] [place] [address] Phone Care Team Providers Care Motor Vehicle Emissions Inspector Name Role Phone Jewel Rebolledo MD Primary Care Provider [phone] Pcp, Not Required Unavailable Unavailable Wade Seo DO, Justine Unavailable [phone] Luis Aly MD Unavailable [phone] Hodan Rodriguez MD, MPH Unavailable [phone] Encounter Details Date Type Department Care Team (Late st Contact Info) Description 04/13/2025 Procedure Pass [facility] Imaging Department, [facility] [place] [address] [facility], Floor [address] [place] [address] Social History Tobacco Use Types Packs/Day Years [...] for Head and Neck Oncology, [facility] [place] [address] [facility], 11th [place] [address] Francisca Dias MD, MPH [address] [place] [address] [email or web address] documented as of this encounter Visit Diagnoses Not on filedocumented in this encounter Care Teams Motor Vehicle Emissions Inspector Relationship Specialty Start Date End Date Jewel Rebolledo MD [address] [place] [phone] PCP - General Internal Medicine 12/08/24 Pcp, Not Required [address] [place] [address] 12/08/24 Serenity Olvera DO [address] [place] [phone] [email or web address] 12/26/24 Luis Aly MD [address] [place] [address] Medical Oncology 12/26/24 Hodan Rodriguez MD, MPH [address] [place] [address] [email or web address] [email or web address] 12/26/24 documented as of this encounter Additional Source Comments The information contained in this document represents components of the legal health record. It is not the complete legal health record.[facility]
[2025-05-01 14:10] LABS: MANUAL DIFF FLAG NO
[2025-05-01 14:15] LABS: Hematocrit 30.7 % (42.0-52.0); Hemoglobin 9.9 g/dl (14.0-18.0); Imm Gran Abs Auto 0.03 X10*3/uL (0.00-0.03); Imm Gran Pct Auto 0.6 % (0.0-0.4); Lymphocytes Absolute Auto 1.0 X10*3/uL (1.2-4.9); Mean Corpuscular HGB Conc 32.2 g/dl (31.0-36.0); Mean Corpuscular Hemoglobin 30.1 pg (27.0-33.0); Mean Corpuscular Volume 93.3 fL (80.0-98.0); NRBC Abs Auto 0.000 X10*3/uL (0.0-0.012); NRBC Pct Auto 0.0 /100WBC (0.0-0.2); Platelet Count 105 X10*3/uL (160-400); Red Blood Count 3.29 X10*6/uL (4.60-5.80); White Blood Count 4.9 X10*3/uL (4.8-10.8)
[2025-05-01 14:43] LABS: Magnesium 2.0 mg/dL (1.6-2.6)
== END 2025-05-01 09:43 | disposition home or self-care (01) ==
LOC: HO.HMGCLDS 09:42
PROVIDERS: Visit Provider Physician Assistant Medical
DX: Z00.00 Encounter for general adult medical examination without abnormal findings (principal); E11.9 Type 2 diabetes mellitus without complications
CPT/HCPCS: 36415; 83735; 85025; 96127; 99212

== ENCOUNTER 2025-05-01 13:28 | Outpatient (AMB) | payer MEDICARE, SELFPAY ==
[2025-05-01 13:28] VITALS: BP 132/70; PULSE 70; RESP 16; TEMP 36.4; O2SAT 99; BMI 27.7
--- NOTE | 2025-05-01 13:28 | MHC.PC.OV ---
Vital Signs 05/01/25 13:28 Height 5 ft 4.17 in Weight 162 lb BMI 27.7 BP 132/70 Respiration 16 Pulse 70 Pulse Source Pulse Oximeter Temp 97.5 F Temp Source Temporal Artery Scan Pulse Oximetry (%) 99 Oxygen Delivery Method Room Air Intake Visit Reasons: Hospital Discharge Business Continuity Analyst Required: No Accompanied by: Self / Same As Patient Allergies No Known Allergies Allergy (Mild, Verified 05/01/25 13:29) N/A Tobacco use date assessed: 05/01/25 Dental Screening Dental Screen Date: 04/11/25 [facility] Medical History Chronic pain syndrome Cough Type 2 diabetes mellitus with hemoglobin A1c goal of less than 7.0% Atrial fibrillation Squamous cell carcinoma of skin of face Arthritis Persistent atrial fibrillation Acute on chronic diastolic (congestive) heart failure Urinary tract infection due to Pseudomonas aeruginosa Recurrent UTI History of prostate cancer Acute retention of urine COVID-19 vaccine series completed History of cardioversion Hx of Lyme disease Tubular adenoma of colon History of ST elevation myocardial infarction (STEMI) (HFpEF) heart failure with preserved ejection fraction Cardiac pacemaker in situ (~12/2020) Hepatorenal syndrome Symptomatic bradycardia Ventricular bigeminy Thrombocytopenia PVC (premature ventricular contraction) CHF exacerbation Bifascicular block Pancytopenia Prostate CA Myocardial infarct, old CAD (coronary artery disease) HLD (hyperlipidemia) Diabetes HTN (hypertension) Surgical History History of colonoscopy (~12/04/21) History of cervical spinal surgery History of radical prostatectomy History of left inguinal hernia repair History of total right knee replacement (TKR) History of lumbar discectomy History of cardiac pacemaker (~12/2020) Family History Father Stromal tumor of the stomach Mother Diabetes Social History Household Members: Spouse Household Members Other:: 1 Housing: House Are you a primary care advocate to a significant other at home: No Do you presently have visiting nurse or other home services: Yes Alcohol intake: current Alcohol intake frequency: does not drink Alcohol type: wine Patient Tobacco Use Status: Former Tobacco user Tobacco use type: Cigarette Second Hand Smoke Exposure: No Advance Directives Date on File: 01/04/23 service: Yes Current occupational status: retired Cognitive needs: Yes (walker) Hearing needs: No Vision needs: Yes (reading/cheaters) Questionnaire PHQ-9 Over the last 2 weeks, how often have you been bothered by any of the following problems? 1. Little interest or pleasure in doing things: not at all 2. Feeling down, depressed, or hopeless: not at all 3. Trouble falling or staying asleep, or sleeping too much: not at all 4. Feeling tired or having little energy: not at all 5. Poor appetite or overeating: not at all 6. Feeling bad about yourself - or that you are a failure or have let yourself or your family down: not at all 7. Trouble concentrating on things, such as reading the newspaper or watching television: not at all 8. Moving or speaking so slowly that other people could have noticed. Or the opposite - being so fidgety or restless that you have been moving around a lot more than usual: not at all 9. Thoughts that you would be better off or of hurting yourself in some way: not at all Total score: 0 Depression Screening Interpretation: Negative Depression Screening Done: Yes 39437 - PHQ-9 Billing: Yes Source: Developed by Drs. Joshua Kline, Bre Dhaliwal, Bill Lynne and colleagues, with an educational henna from [employer]. Thrive Questionnaire Date Thrive assessed: 04/11/25 I am a: Patient What is your living situation today?: I have a steady place to live Within the past 12 months, did the food you bought not last and you didn't have the money to get more?: Never true Within the past 12 months, did you worry whether your food would run out before you got money to buy more?: Never true Do you have trouble paying for medicines?: No Do you have trouble getting transportation to medical appointments?: No Do you have trouble paying your heating and electricity bill?: No Do you have trouble taking care of your child, family member or friend?: No Do you have trouble with day-to-day activities such as bathing, preparing meals, shopping, managing finances, etc.?: No Are you currently unemployed and looking for a job?: No Are you interested in more education?: No Please select the resources that you would like help with: None Currently or been in a relationship where the following occur: No concerns reported THRIVE Score: 0 AUDIT C Alcohol Use Questionnaire (AUDIT-C) 1. How often do you have a drink containing alcohol?: Never 3. How often do you have six or more drinks on one occasion?: Never Total Score: 0 Score Reviewed/Action Taken: No LUDWIN-7 AMB Questionnaire LUDWIN-7 Date LUDWIN - 7 assessed: 04/11/25 Feeling nervous, anxious, or on edge: 0 = Not at all Not being able to stop or control worryin = Not at all Worrying too much about different things: 0 = Not at all Trouble relaxin = Not at all Being so restless that it is hard to sit still: 0 = Not at all Becoming easily annoyed or irritable: 0 = Not at all Feeling afraid as if something awful might happen: 0 = Not at all Total LUDWIN-7 score (0-4 normal; 5-9 mild; 10-14 moderate; 15-21 severe): 0 Source: Developed by Drs. Joshua Kline, Bre Dhaliwal, Bill Lynne and colleagues, with an educational henna from [employer]. LUDWIN-7 Assessment Billing LUDWIN-7 Assessment Tool: LUDWIN-7 Assessment 93362 Physical exam (Primary Care) Vital Signs: Last Vital Signs Temp 97.5 F 05/01/25 13:28 Pulse 70 05/01/25 13:28 Resp 16 05/01/25 13:28 BP 132/70 05/01/25 13:28 Pulse Ox 99 05/01/25 13:28 Oxygen Delivery Method Room Air 05/01/25 13:28 BMI result Body Mass Index 27.7 Tobacco/Smoking Status: Tobacco use Status Tobacco use date assessed 05/01/25 05/01/25 13:38 Patient Tobacco Use Status Former Tobacco user 05/01/25 13:38 Tobacco use type Cigarette 05/01/25 13:38 PHQ-9: PHQ-9 Score PHQ-9: Total score 0 05/01/25 13:38 Depression Screening Interpretation: Negative Thrive Assessment: Date of Thrive Assessment Date Thrive assessed 04/11/25 05/01/25 13:38 Currently or been in a relationship where the following occur: No concerns reported Coding Level of Care Code Est Pt Level 4 (16865) Complex EM visit Add On G2211 Diagnoses Type 2 diabetes mellitus with hemoglobin A1c goal of less than 7.0% E11.9 Additional Codes LUDWIN-7 Assessment Billing - LUDWIN-7 Assessment Tool: LUDWIN-7 Assessment 92757 ([id number]) PHQ-9 - 51739 - PHQ-9 Billing: Yes ([id number]) Assessment & Plan Assessment & Plan (1) Type 2 diabetes mellitus with hemoglobin A1c goal of less than 7.0%: Code(s): E11.9 - Type 2 diabetes mellitus without complications Category: Medical Plan: Long acting insulin dosage reduced due to recent fall. Plan History of Present Illness - The patient is an 89-year-old male presenting with a follow-up after a fall with head injury. - The fall occurred at home, likely due to hypoglycemia, and resulted in a head injury requiring hospitalization at [facility]. - The patient was discharged last Thursday and had sutures placed on the neck, which are scheduled for removal at the end of the week. - A CT scan was performed during hospitalization, showing no intracranial bleeding. - The patient has a history of diabetes mellitus, managed with insulin, which was recently adjusted from 25 to 22 units due to episodes of hypoglycemia. - The patient uses a walker for mobility outside the home and an electric wheelchair indoors. - The patient has a pacemaker and reports mild pain in the shoulders, attributed to old age. - The patient also mentioned having cancer, though specific details were not provided. Social History - Mobility: Uses a walker for outdoor mobility and an electric wheelchair indoors. Review of Systems - Neurological: Reports fall with head injury, denies current pain. - Endocrine: Reports episodes of hypoglycemia, managed with insulin adjustment. - Musculoskeletal: Reports mild shoulder pain, attributed to old age. Physical Exam General: Cooperative and healthy appearing Nutritional Appearance: Well nourished Orientation/consciousness: Patient oriented x3 Limitations: No limitations Head: Normal to inspection General: Appearance normal, both eyes and all related structures Neck: Normal visual inspection Chest: Normal palpation of entire chest wall Respiratory: N ormal respiratory effort Neurology: Patient oriented x3, mild pain in shoulders when laying hand down Results - Imaging: CT scan showed no intracranial bleeding. Plan 1. Fall With Head Injury - Follow-up for suture removal at the end of the week. - Monitor for any neurological symptoms post-fall. 2. Hypoglycemia - Insulin dosage adjusted from 25 to 22 units to prevent low blood sugar episodes. 3. Diabetes Mellitus - Continue monitoring blood glucose levels and adjust insulin as needed. 4. Cancer - Further details on cancer management were not discussed. 5. Pacemaker Presence - No specific management changes discussed for pacemaker. Discussion Notes The patient was advised to return for suture removal at the end of the week. Insulin dosage was adjusted to prevent hypoglycemic episodes. Follow-up appointments will be coordinated by the patient's . No new management plans were discussed for the pacemaker or cancer. Patient Instructions - Return for suture removal at the end of the week. - Monitor blood sugar levels and report any episodes of hypoglycemia. - Follow up with regular appointments as scheduled by your . Medications: Changed From insulin degludec (Tresiba FlexTouch U-100 insulin) 25 units (0.25 mL) subcut BEDTIME 15 mL 0RF To insulin degludec (Tresiba FlexTouch U-100 insulin) 22 units (0.22 mL) subcut BEDTIME 15 mL 0RF
== END 2025-05-01 13:58 | disposition home or self-care (01) ==
LOC: HO.HMCSH 13:28
PROVIDERS: PCP Physician Assistant Medical; Visit Provider Internal Medicine
DX: E11.9 Type 2 diabetes mellitus without complications (principal)

== ENCOUNTER 2025-05-05 13:24 | Outpatient (AMB) | payer MEDICARE, SELFPAY ==
--- OUTSIDE RECORDS SUMMARY | 2025-05-02 09:30 | XMS_ITS | Encounter Summary ---
Author Organization [facility] Address [address] [place] [address] Phone Care Team Providers Care Batch And Furnace Operator Name Role Phone Chantal Rebolledo MD Primary Care Provider [phone] Pcp, Not Required Unavailable Unavailable Wade Seo DO, Justine Unavailable [phone] Luis Aly MD Unavailable [phone] Hodan Pacheco MD, MPH Unavailable [phone] Encounter Details Date Type Department Care Team (Late st Contact Info) Description 05/02/2025 9:30 AM EDT Office Visit [facility], [facility] [place] [address] [place] [address], [address] [place] [address] Francisca Dias MD, MPH [address] [place] [address] [email or web address] 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) Social History Tobacco Use Types [...] Sign Reading Time Taken Comments Blood Pressure 121/70 05/02/2025 9:42 AM EDT Pulse 70 05/02/2025 9:42 AM EDT Temperature 36.3 C (97.3 F) 05/02/2025 9:42 AM EDT Respiratory Rate 16 05/02/2025 9:41 AM EDT Oxygen Saturation 100% 05/02/2025 9:42 AM EDT Inhaled Oxygen Concentration - - Weight 73.6 kg (162 lb 4.1 oz) 05/02/2025 9:41 A M EDT Height - - Body Mass Index - - documented in this encounter Progress Notes * Francisca Dias MD, MPH - 05/02/2025 9:30 AM EDT Images from the original note were not included. [address] [place] [id number] ?? [facility] New Patient Consultation Note Date of Encounter: 05/02/2025 Name: Chantal Neal Date of : 1935 Referring provider: Rojelio Gallardo Md [address] [place] [address] PCP: Chantal Rebolledo MD [address] [place] [address] [id number] [facility] HNO Team: Head and Neck Surgery: Francisca Dias MD MPH Medical Oncology: Serenity Olvera DO Radiation Oncology: None Dermatology: Hodan Pacheco MD MPH Chief Complaint: Left frontal forehead SCCa History of Present Illness: Chantal Neal is a 89 y.o. male with history of type 1 diabetes, prostate cancer, status postcardiac pacemaker placement with left frontal forehead squamous cell carcinoma status post 2 cycles immunotherapy (01/10/25) with concern for progression versus residual disease radiographically but with cli nical response now back on immunotherapy. He was initially seen in consultation by the cutaneous oncology center in December 2024. 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 This measured 5 cm with extension to the medial canthus, and abutment of bone with possible V1 p erineural invasion. This was felt to be borderline resectable given concern for possible involvement of the underlying bone. Ultimately recommendation was made to proceed with Cemiplimab locally withclose follow-up after 2 cycles. He was started on immunotherapy on January 10, 2025. This was started locally at [facility]. 2 cycles of treatment were given and ultimately stopped because of unclear response based on local team's assessment. He had no toxicity related to treatment. They were scheduled to see me in February however missed this appointment because he had not told his children and therefore did not have a way to get to his appointment. He came back to see Dr. Pacheco on April 13, 2025. On her assessment there was a clinical response tocemiplimab and additional infusions were recommended. He did have repeat scans on April 13, 2025. This demonstrated increased size of the enhancing massalong the left frontal scalp/supraorbital region measuring up to 4.3 cm with increased bony erosionon the left side of the frontal bone involving the anterior wall of the left frontal sinus, new nodular areas of skin thickening along the more superior frontal scalp felt to possibly represent in-transit metastases, no evidence of intracranial disease or lymph node metastases. His case was discussed at tumor board with recommendation to restart immunotherapy as we felt therewas response clinically after 2 treatments despite progression on imaging. He is now seeing me after restarting immunotherapy to assess response and consider further management options. He is here with his daughter and [id number]. His last immunotherapy was 04/28/25 (Cycle 3). He feels pain and pressure around the mass. Occasional drainage. No fevers or chills. No nasal drainage. I independently reviewed outside records and the findings are summarized above. Review of Systems: Review of Systems All other systems reviewed and negative or noncontributory except for those mentioned above and below. EORTC HN43 Patient Entered Questionnaire Responses - Details and trends available in Rooming and Encounter Summary 05/02/2025 10:06 AM MGB AMB DF EORTC QLQ H&N43 SCORES Problems with Wound Healin (Quite a bit) Problems with Shoulder: 100 (Very much) Problems with Teeth: 0 (Not at all) Problems Opening Mouth: 0 (Not at all) Dry Mouth and Sticky Saliva: 33 (A little) Swallowin (Not at all) Social Eatin (Not at all) Speech: 7 (Not at all) Social Contact: 0 (Not at all) Body Image: 11 (Not at all) Sexuality: 0 (Not at all) Fear of Progression: 50 (Quite a bit) Oncologic History: Oncology History Squamous cell carcinoma of skin of face 11/16/2024 Initial Diagnosis Squamous cell carcinoma of skin of face Past Medical, Family & Social History: below data was updated and reviewed. Allergies: Not on File Past Medical History: Past Medical History: Diagnosis Date Diabetes type 1 Essential (primary) hypertension Malignant neoplasm of prostate Mixed hyperlipidemia Past Surgical History: Past Surgical History: Procedure Laterality Date CARDIAC PACEMAKER PLACEMENT PROSTATECTOMY N/A 1993 Family History: No family history on file. 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 4 children Current Medications: his medications were updated and reviewed in the [facility] chart. Current Outpatient Medications Ordered in [facility] Medication Sig insulin aspart U-100 (NOVOLOG U-100 INSULIN ASPART) 100 unit/mL injection vial Inject 8 Units underthe skin 3 (three) times a day before meals. isosorbide dinitrate (ISORDIL) 30 MG immediate release tablet Take 30 mg by mouth 2 (two) times a day. losartan (COZAAR) 25 MG tablet Take 25 mg by mouth daily. OLANZapine (ZYPREXA) 2.5 MG tablet Take 2.5 mg by mouth nightly at bedtime. TRESIBA FLEXTOUCH U-100 injection pen Inject 22 Units under the skin nightly at bedtime. isosorbide mononitrate (IMDUR) 30 MG 24 hr tablet (Patient not taking: Reported on 05/02/2025) LANTUS SOLOSTAR U-100 INSULIN 100 unit/mL (3 mL) InPn injection pen 0.1 ml Subcutaneous Once a day for 30 day(s) metoprolol succinate (TOPROL-XL) 25 MG 24 hr tablet metoprolol tartrate (LOPRESSOR) 50 MG tablet Take 1 tablet by mouth 2 (two) times a day. oxyCODONE HCl 10 mg Tab Take 1 tablet by mouth every 4 (four) hours as needed. (Patient not taking:Reported on 05/02/2025) ?Physical Exam Vitals: 05/02/25 0942 BP: 121/70 Pulse: 70 Resp: Temp: 36.3 ??C (97.3 ??F) SpO2: 100% General: He is well appearing in no acute distress. Seated in wheelchair for exam. Voice: Normal, good projection, no roughness or breathiness Face Symmetrical movement, House-Brackmann I/ Exophytic mass just lateral to glabella with more ulcerative area more lateral to this over orbitalrim with scant drainage. Mass is fixed to underlying bone. Does not extend to medial canthus Parotid glands normal to palpation Eyes EOMI. Sclera anicteric, conjunctivae pink. Ears: Able to hear examiner in quiet room. Normal to external inspection Nose: Normal to external inspection. Dorsum midline. Oral cavity No trismus Mucosa moist, no mass or lesion appreciated. Tongue mobility normal. Dentition: Unremarkable Oropharynx Tonsils symmetrical, uvula midline, palate elevates symmetrically. Mucosa normal, no mass or lesion appreciated Gag reflex intact. Neck The neck is soft to palpation, no lymphadenopathy or thyromegaly appreciated Shoulder shrug strong and symmetrical Respiratory The breathing is unlabored without stertor or stridor. Cardiovascular Extremities warm and well perfused without edema. Neurologic: He is alert and oriented x3. The mood is good. CN 2-12 grossly intact. Pre-treatment: Post 2 cycles cemiplimab: 05/02/25: ECOG Performance Status: 3 = capable of only limited selfcare, confined to a bed or chair more than50% of waking hours Results: Images, Tests and Data Review Imaging: CT Neck Soft Tissue With Contrast Performed: 04/13/2025 at 12:31 PM Accession Number: [id number] Reason For Exam Pt with large SCC on left forehead that did not response to immunotherapy. Please evaluate for metastasis and extent of disease.; *Skin cancer, staging Exam Images Show images for CT Neck All Patient Images Show images for Chantal Neal Impression 1. Increased size of the enhancing mass [...] No lymph node metastases in the neck. I independently interpreted the imaging in addition to the radiologists report. Chantal Neal's imaging shows the following: - Left frontal mass overlying superior orbital rim with extension into soft tissue overlying orbit and towards medial canthus Pathology: Outside Pathology Review Order: [id number] Collected 09/06/2024 00:00 Status: Final result Next appt: Today at 09:30 AM in [facility] Ne[facility] Oncology (Francisca Dias MD, MPH) Test Result Released: No (inaccessible in Patient Grandy) 0 Result Notes Narrative CASE: [id number] PATIENT: CHANTAL NEAL Date: 1935 Sex: Male [facility] Department of Pathology [address] [place], [place] [address]IA License No.: [id number] Machine Printer: Dr. Harvey Baez MD, PhD Physician: HODAN PACHECO MD, MPH Resident: Marc Temple MD, PhD Pathologist: Gene Lowery MD PATHOLOGIC DIAGNOSIS: CONSULT SLIDE RECEIVED FROM [facility]; [place]. SKIN, FOREHEAD ([id number]; 09/06/2024): Part of an INVASIVE SQUAMOUS CELL CARCINOMA, well differentiated. Impression/Plan: ? Chantal Neal is a 89 y.o. male with history of type 1 diabetes, prostate cancer, status postcardiac pacemaker placement with left frontal forehead squamous cell carcinoma status post 2 cycles immunotherapy (01/10/25) with concern for progression versus residual disease radiographically but with cli nical response now back on immunotherapy (restarted 04/28/25). On exam he is frail appearing in a wheelchair. He has an exophytic and ulcerative mass over the left glabella and supraorbital rim. This is dramatically improved from his original photos, and largelystable appearing from the time after his second infusion. This does appear to erode in to the frontal sinus on imaging. There is no regional spread. We have spoken about him at and I am in agreement that we should continue immunotherapy. I wouldlike to see him further out after 2 more cycles of immunotherapy to assess response. If there is progression, surgery could be possible but likely very morbid for him as it would require frontal sinus resection and more complex reconstruction. Hopefully he would not require an orbital exenteration. He is in agreement with this plan. Daughters will keep me posted if tumor is worsening. Plan: - FU 3-4 weeks to assess response to immunotherapy I personally spent a total of 60 minutes on care for this patient on the date of the encounter. This includes [id number] time during the visit as well as non [id number] time spent on chart review, documentation, and care coordination. This excludes time spent on separately billable services. Future Appointments Date Time Provider Department Center 05/30/2025 1:30 PM Francisca Dias MD, MPH [facility] None Francisca Dias MD MPH FACS Otolaryngology-Head and Neck Surgery [facility] Head [facility] Ne[facility] Oncology and Microvascular Reconstructive Surgery [facility] [phone] Glove Printer of Otolaryngology-Head and Neck Surgery [employer] cc: Rojelio Gallardo MD [address] [place] [address] [facility] [address] Chantal Rebolledo MD [address] [place] [address] / [facility] [id number] documented in this encounter Plan of Treatment Upcoming Encounters Date Type Department Care Team (Late st Contact Info) Description 05/30/2025 1:30 PM EDT Office Visit [facility], [facility] [place] [address], [address] [place] [address] Francisca Dias MD, MPH [address] [place] [id number] [email or web address] documented as of this encounter Visit Diagnoses Diagnosis Squamous cell carcinoma of skin of face- Primary Other malignant neoplasm of skin of other and unspecified parts of face documented in this encounter Care Teams Batch And Furnace Operator Relationship Specialty Start Date End Date Chantal Rebolledo MD [address] [place] [address] PCP - General Internal Medicine 12/08/24 Pcp, Not Required [address] [place] [phone] 12/08/24 Serenity Olvera DO [address] [place] [phone] [email or web address] Medical Oncology 12/26/24 Luis Aly MD [address] [place] [phone] Medical Oncology 12/26/24 Hodan Pacheco MD, MPH [address] [place] [phone] [email or web address] Dermatology 12/26/24 documented as of this encounter Additional Source Comments The information contained in this document represents components of the legal health record. It is not the complete legal health record.[facility]
[2025-05-05 13:39] VITALS: BP 115/56; PULSE 82; RESP 16; TEMP 36.4; O2SAT 97; BMI 27.3
--- NOTE | 2025-05-05 13:39 | MHC.PC.OV ---
Vital Signs 05/05/25 13:39 Height 5 ft 4.17 in Weight 160 lb BMI 27.3 BP 115/56 L Respiration 16 Pulse 82 Pulse Source Pulse Oximeter Temp 97.6 F Temp Source Temporal Artery Scan Pulse Oximetry (%) 97 Oxygen Delivery Method Room Air Intake Visit Reasons: Suture removal Accompanied by: Spouse Allergies No Known Allergies Allergy (Mild, Verified 05/05/25 14:21) N/A Medication List - Last Reconciled 05/05/25 by Amisha Abraham PA-C apixaban (Eliquis) 2.5 mg PO BID atorvastatin 40 mg PO BEDTIME blood-glucose sensor (FreeStyle Rob 3 Plus Sensor device) Check glucose 3 times a day with meals blood-glucose sensor (FreeStyle Rob 3 Sensor device) Check glucose 3 times a day with meals blood-glucose,landfill attendant,cont (FreeStyle Rob 3 [place]) Check glucose 3 times a day with meals cholecalciferol (vitamin D3) (Vitamin D3) 125 mcg PO DAILY clotrimazole-betamethasone 1-0.05 % 1 appl topical BID PRN cyanocobalamin (vitamin B-12) 1,000 mcg PO DAILY cyclobenzaprine 10 mg PO Q8H diaper,brief,adult,disposable As directed - 4 per day insulin aspart U-100 (Novolog FlexPen U-100 Insulin aspart) subcut insulin degludec (Tresiba FlexTouch U-100 insulin) 22 units (0.22 mL) subcut BEDTIME isosorbide mononitrate ER 30 mg PO DAILY aelzi-4d-ejc-epa-fish oil 300-1,000 mg ([place]-3 Fish Oil) 1 cap PO DAILY pregabalin 150 mg PO QID 90 days torsemide 20 mg PO DAILY vitamin B complex 1 tab PO DAILY walker rollator with basket to be used daily Tobacco use date assessed: 05/01/25 Dental Screening Dental Screen Date: 04/11/25 HPI Suture removal HPI Details The patient is an 89-year-old male presenting with the need for stitch removal following a procedure related to skin cancer treatment. The patient has been receiving treatment for skin cancer on the head, which has been ongoing for approximately eight months. The treatment involves receiving injections at [facility] to reduce the tumor size due to its proximity to the eye, making surgical intervention challenging. The patient also has a history of diabetes mellitus, for which he requires regular monitoring and management. He mentioned difficulties in obtaining necessary diabetic supplies due to issues with his phone service and pharmacy coordination. His last A1c was checked last month, showing a level of 7.3%. [facility] Medical History Walker as ambulation aid Chronic pain syndrome Cough Type 2 diabetes mellitus with hemoglobin A1c goal of less than 7.0% Atrial fibrillation Squamous cell carcinoma of skin of face Arthritis Persistent atrial fibrillation Acute on chronic diastolic (congestive) heart failure Urinary tract infection due to Pseudomonas aeruginosa Recurrent UTI History of prostate cancer Acute retention of urine COVID-19 vaccine series completed History of cardioversion Hx of Lyme disease Tubular adenoma of colon History of ST elevation myocardial infarction (STEMI) (HFpEF) heart failure with preserved ejection fraction Cardiac pacemaker in situ (~12/2020) Hepatorenal syndrome Symptomatic bradycardia Ventricular bigeminy Thrombocytopenia PVC (premature ventricular contraction) CHF exacerbation Bifascicular block Pancytopenia Prostate CA Myocardial infarct, old CAD (coronary artery disease) HLD (hyperlipidemia) Diabetes HTN (hypertension) Surgical History History of colonoscopy (~12/04/21) History of cervical spinal surgery History of radical prostatectomy History of left inguinal hernia repair History of total right knee replacement (TKR) History of lumbar discectomy History of cardiac pacemaker (~12/2020) Family History Father Stromal tumor of the stomach Mother Diabetes Social History Household Members: Spouse Household Members Other:: 1 Housing: House Are you a primary infant caregiver to a significant other at home: No Do you presently have visiting nurse or other home services: Yes Alcohol intake: current Alcohol intake frequency: does not drink Alcohol type: wine Patient Tobacco Use Status: Former Tobacco user Tobacco use type: Cigarette Second Hand Smoke Exposure: No Advance Directives Date on File: 01/04/23 service: Yes Current occupational status: retired Cognitive needs: Yes (walker) Hearing needs: No Vision needs: Yes (reading/cheaters) Questionnaire Thrive Questionnaire Date Thrive assessed: 04/11/25 LUDWIN-7 AMB Questionnaire LUDWIN-7 Date LUDWIN - 7 assessed: 04/11/25 Source: Developed by DrsGeovanny Kline, Bre Dhaliwal, Bill Lynne and colleagues, with an educational henna from [employer]. Review of Systems Const Details: - Integumentary: Reports presence of scab and stitches on the head. - Endocrine: Reports difficulty in managing diabetes supplies. All systems reviewed & are unremarkable except as noted in HPI and below Physical exam (Primary Care) Vital Signs: Last Vital Signs Temp 97.6 F 05/05/25 13:39 Pulse 82 05/05/25 13:39 Resp 16 05/05/25 13:39 BP 115/56 L 05/05/25 13:39 Pulse Ox 97 05/05/25 13:39 Oxygen Delivery Method Room Air 05/05/25 13:39 Care Plan Goal for BP management: <140/90 at Goal BMI result Body Mass Index 27.3 BMI Assessment/Plan discussion: High BMI High, discussed plan: lifestyle, weight reduction, dietary, physical activity, alcohol moderation and other Tobacco/Smoking Status: Tobacco use Status Tobacco use date assessed 05/01/25 05/05/25 13:45 Patient Tobacco Use Status Former Tobacco user 05/05/25 13:45 Tobacco use type Cigarette 05/05/25 13:45 Thrive Assessment: Date of Thrive Assessment Date Thrive assessed 04/11/25 05/05/25 13:45 Const Other: Appearance: Alert. Oriented X3. No acute distress. Head: Normal external exam. Normocephalic. Atraumatic. Presence of scab tissue and stitches on the side of the head. Eyes: Pupils are equal, round, and reactive to light. Extraocular movements intact. Conjunctiva and sclera normal. Eyelids normal. Throat: Pharynx normal. Uvula midline. Moist mucous membranes. Neck: Normal inspection. Neck supple. Full range of motion. Cardiovascular: Normal heart rate and rhythm. Respiratory: No respiratory distress. Painless inspiration. Back: No costovertebral angle tenderness. Full range of motion noted. Skin: Skin warm and dry. Normal skin color. Patient noted to have skin cancer tooth frontal forehead with overlying Band-Aid. Patient has 2 well-healing wounds with scabs overlying to the right aspect of his forehead/temporal area. Sutures are in place. No signs of infection, purulent drainage, foul odor or crepitus noted or foreign bodies. Extremities: Extremities exhibit normal range of motion. Neuro: Oriented X 3. Utilizing walker. Coding Level of Care Code Est Pt Level 4 (77771) Complex EM visit Add On G2211 Diagnoses Squamous cell carcinoma of skin of face C44.320 Type 2 diabetes mellitus with hemoglobin A1c goal of less than 7.0% E11.9 Assessment & Plan Assessment & Plan (1) Squamous cell carcinoma of skin of face: Code(s): C44.320 - Squamous cell carcinoma of skin of unspecified parts of face Category: Medical Plan: The patient is undergoing treatment for skin cancer on the head, which involves receiving injections at [facility] to reduce the tumor size due to its proximity to the eye, making surgical intervention challenging. The plan includes continued monitoring and follow-up to assess the effectiveness of the treatment and to determine the next steps in management. (2) Type 2 diabetes mellitus with hemoglobin A1c goal of less than 7.0%: Code(s): E11.9 - Type 2 diabetes mellitus without complications Category: Medical Plan: The patient requires regular monitoring and management of diabetes mellitus, with a recent A1c level of 7.3%. There are issues with obtaining diabetic supplies due to phone service and pharmacy coordination problems, which need to be addressed to ensure proper management. Plan Plan Patient was informed and verbally consented to the use of an ambient scribe for clinic note documentation during this visit. 1. Skin Cancer The patient is undergoing treatment for skin cancer on the head, which involves receiving injections at [facility] to reduce the tumor size due to its proximity to the eye, making surgical intervention challenging. The plan includes continued monitoring and follow-up to assess the effectiveness of the treatment and to determine the next steps in management. 2. Diabetes Mellitus The patient requires regular monitoring and management of diabetes mellitus, with a recent A1c level of 7.3%. There are issues with obtaining diabetic supplies due to phone service and pharmacy coordination problems, which need to be addressed to ensure proper management. During the visit, we discussed the ongoing treatment for the patient's skin cancer, which involves injections to reduce the tumor size due to its proximity to the eye. We also addressed the patient's diabetes management, emphasizing the importance of regular monitoring and resolving issues with obtaining diabetic supplies. Medications: New walker rollator with basket to be used daily 1 ea 0RF I48.0 - Paroxysmal atrial fibrillation, I50.30 - Unspecified diastolic (congestive) heart failure, M19.90 - Unspecified osteoarthritis, unspecified site, W19.XXXA - Unspecified fall, initial encounter, Z99.89 - Dependence on other enabling machines and devices Changed From pregabalin 150 mg PO QID 120 caps 0RF To pregabalin 150 mg PO QID 360 caps 3RF 90 days Refilled apixaban (Eliquis) 2.5 mg PO BID 180 tabs 3RF Patient Instructions: - Keep the wound area clean and dry. Monitor for any signs of infection such as redness or swelling. - Follow up with your healthcare provider for regular diabetes management and monitoring. - Contact your pharmacy or healthcare provider to resolve issues with obtaining diabetic supplies.
--- OUTSIDE RECORDS SUMMARY | 2025-05-05 16:04 | XMS_ITS | Encounter Summary ---
Author Organization [facility] [place] [address] Care Team Providers Care Traffic Reporter Name Role Phone Jewel Rebolledo MD Primary Care Provider [phone] Encounter Details Date Type Department Care Team (Late Contact Info) Description 01/09/2025 Lab Requisition [facility] - Main Lab [address] [facility] [place] [address] Sreekanth Lobato MD 100 [facility] 120 [place] [address] Intrinsic sphincter deficiency (ISD); Urinary [...] Info) Description 05/19/2025 11:30 AM EDT Appointment [facility] [address] [phone] 06/09/2025 11:30 AM EDT Appointment [facility] [address] [place] [phone] documented as of this encounter Procedures Procedure [...] ORDERABLES Final Result [facility] [address] [place] [address], documented in this encounter Visit Diagnoses Diagnosis Intrinsic sphincter deficiency (ISD) Urinary tract infection, site not specified documented in this encounter Care Teams Traffic Reporter Relationship Specialty Start Date End Date Jewel Rebolledo MD [address] [place] [address] PCP - General 09/25/22 documented as of this encounter
--- OUTSIDE RECORDS SUMMARY | 2025-05-05 16:04 | XMS_ITS | Encounter Summary ---
Author Organization [facility] Address [address] [place] [address] Care Team Providers Care [employer] Name Role Phone Pcp, No Primary Care Provider Unavailabl e Encounter Details Date Type Department Care Team (Late st Contact Info) Description 09/29/2022 Scanned Document [facility] Urologic Surgery [address] [place] [address] Sreekanth Lobato MD Social History [...] on filedocumented in this encounter Care Teams [employer] Relationship Specialty Start Date End Date Pcp, No PCP - General General Medicine 08/19/23 documented as of this encounter
--- OUTSIDE RECORDS SUMMARY | 2025-05-05 16:04 | XMS_ITS | Encounter Summary ---
Author Organization [facility] [place] [address] Care Team Providers Care Visor Installer Name Role Phone Jewel Rebolledo MD Primary Care Provider [phone] Encounter Details Date Type Department Care Team (Latest Contact Info) Description 06/28/[address] [facility] - Main Lab [address] [place] [phone] Lamonte Sagastume MD [address] [place] [id number] Type 2 diabetes mellitus without complications (CMS/HCC [...] Description 05/19/2025 11:[address] [facility] [address] [phone] 06/09/2025 11:[address] [facility] [address] [phone] documented as of this encounter Procedures Procedure [...] LAB CHEMISTRY METHOD 06/28/2024 2:41 PM EST [facility] Blood Venous blood specimen / Unknown Venipuncture / Unknown 06/28/2024 6:01 AM EST 06/28/2024 11:11 AM EST Lamonte Sagastume MD LAB BLOOD ORDERABLES Final Res ult Performing Organization Address City/[facility]/ZIP Co de Phone Number [facility] [address] [place] [address], [place] [phone] * Phosphorus (06/28/2024 6:01 AM EST) Phosphorus 2.9 2.5 - 4.5 mg/dL LAB CHEMISTRY METHOD 06/28/2024 2:41 PM EST [facility] Blood Venous blood specimen / Unknown Venipuncture / Unknown 06/28/2024 6:01 AM EST 06/28/2024 11:11 AM EST us Lamonte Sagastume MD LAB BLOOD ORDERABLES Final Res ult [facility] [address] [place] [address], * (ABNORMAL) Complete blood count (06/28/2024 6:01 AM EST) [facility] WBC 5.4 4.8 - 10.8 K/mcL LAB HEMETOLOGY METHOD 06/28/2024 12:41 PM [facility] RBC 3.60(L) 4.50 - 5.50 M/mcL LAB HEMETOLOGY METHOD 06/28/2024 12:41 PM [facility] LAB Hemoglobin 9.7(L) 13.5 - 17.5 g/dL LAB HEMETOLOGY METHOD 06/28/2024 12:41 PM [facility] LAB Hematocrit 31.9(L) 42.0 - 54.0 % LAB HEMETOLOGY METHOD 06/28/2024 12:41 PM [facility] LAB MCV 89.9 79.0 - 98.0 FL LAB HEMETOLOGY METHOD 06/28/2024 12:41 PM [facility] LAB MCH 27.3 27.0 - 32.0 pcg LAB HEMETOLOGY METHOD 06/28/2024 12:41 PM [facility] LAB MCHC 30.4(L) 32.0 - 37.0 g/dL LAB HEMETOLOGY METHOD 06/28/2024 12:41 PM [facility] RDW 18.2(H) 11.0 - 15.0 % LAB HEMETOLOGY METHOD 06/28/2024 12:41 PM [facility] Platelets 164 130 - 400 K/mcL LAB HEMETOLOGY METHOD 06/28/2024 12:41 PM [facility] MPV 10.8 7.0 - 11.0 FL LAB HEMETOLOGY METHOD 06/28/2024 12:41 PM [facility] NRBC 0.0 <1.0 % LAB HEMETOLOGY METHOD 06/28/2024 12:41 PM [facility] NRBC Absolute 0.00 <0.10 K/mcL LAB HEMETOLOGY METHOD 06/28/2024 12:41 PM [facility] Blood Venous blood specimen / Unknown Venipuncture / Unknown 06/28/2024 6:01 AM EST 06/28/2024 11:11 AM EST us Lamonte Sagastume MD LAB BLOOD ORDERABLES Final Res ult [facility] [address] [place] [address], * (ABNORMAL) Comprehensive metabolic panel (06/28/2024 6:01 AM EST) Sodium 138 133 - 145 mmol/L LAB CHEMISTRY METHOD 06/28/2024 2:45 PM [facility] Potassium 4.1 3.5 - 5.5 mmol/L LAB CHEMISTRY METHOD 06/28/2024 2:45 PM [facility] Chloride 102 96 - 110 mmol/L LAB CHEMISTRY METHOD 06/28/2024 2:45 PM [facility] CO2 33(H) 21 - 32 mmol/L LAB CHEMISTRY METHOD 06/28/2024 2:45 PM [facility] Anion Gap 3 3 - 11 LAB CHEMISTRY METHOD 06/28/2024 2:45 PM [facility] Glucose 213(H) 70 - 100 mg/dL LAB CHEMISTRY METHOD 06/28/2024 2:45 PM [facility] BUN 47(H) 5 - 25 mg/dL LAB CHEMISTRY METHOD 06/28/2024 2:45 PM [facility] Creatinine 1.02 0.70 - 1.30 mg/dL LAB CHEMISTRY METHOD 06/28/2024 2:45 PM [facility] LAB eGFR 72 >=60 mL/min/1. 73m2 LAB CHEMISTRY METHOD 06/28/2024 2:45 PM [facility] Comment:Calculation based on the Chronic Kidney Disease Epidemiology Collaboration (CKD-EPI) equation refit without adjustment for race. BUN/Creatinine Ratio 46.1 LAB CHEMISTRY METHOD 06/28/2024 2:45 PM [facility] Calcium 8.5 8.5 - 10.5 mg/dL LAB CHEMISTRY METHOD 06/28/2024 2:45 PM [facility] AST (SGOT) 25 10 - 42 unit/L LAB CHEMISTRY METHOD 06/28/2024 2:45 PM [facility] ALT (SGPT) 47 10 - 60 unit/L LAB CHEMISTRY METHOD 06/28/2024 2:45 PM [facility] Alkaline Phosphatase 150(H) 42 - 121 unit/L LAB CHEMISTRY METHOD 06/28/2024 2:45 PM [facility] Total Protein 5.5(L) 6.0 - 8.0 g/dL LAB CHEMISTRY METHOD 06/28/2024 2:45 PM [facility] Albumin 2.7(L) 3.2 - 5.0 g/dL LAB CHEMISTRY METHOD 06/28/2024 2:45 PM [facility] Total Bilirubin 0.3 0.0 - 1.4 mg/dL LAB CHEMISTRY METHOD 06/28/2024 2:45 PM [facility] Blood Venous blood specimen / Unknown Venipuncture / Unknown 06/28/2024 6:01 AM EST 06/28/2024 11:11 AM EST us Lamonte Sagastume MD LAB BLOOD ORDERABLES Final Res ult [facility] [address] [place] [address], [place] [phone] documented in this encounter Visit Diagnoses Diagnosis Type 2 diabetes mellitus without complications (CMS/HCC V24, CMS/HCC V28) documented in this encounter Care Teams Visor Installer Relationship Specialty Start Date End Date Jewel Rebolledo MD [address] [place] PCP - General 09/25/22 documented as of this encounter
--- OUTSIDE RECORDS SUMMARY | 2025-05-05 16:04 | XMS_ITS | Clinical Summary ---
Author Organization [facility] Address [address] [place] [address] Care Team Providers Care Diabetes Educator Name Role Phone Pcp, No Primary Care [...] s (ZINC PO) Take by mouth. Active Herreid-3 Fatty Acids (FISH OIL PO) Take by [...] Insurance MEDICARE PART A & B [employer] [facility] - PPO Care Teams Diabetes Educator Relationship Specialty Start Date End Date Pcp, No PCP - General General Medicine 08/19/23
--- OUTSIDE RECORDS SUMMARY | 2025-05-05 16:04 | XMS_ITS | Encounter Summary ---
Author Organization [facility] Address [address] [place] [address] Care Team Providers Care Retail Client Solutions Analyst Name Role Phone Pcp, No Primary Care Provider Unavailabl e Encounter Details Date Type Department Care Team (Late st Contact Info) Description 01/13/2024 Scanned Document [facility] Urologic Surgery [address] [place] [address] Enoch Cardona MD [address] [phone] Social History Tobacco Use Types Packs/Day Years [...] on filedocumented in this encounter Care Teams Retail Client Solutions Analyst Relationship Specialty Start Date End Date Pcp, No PCP - General General Medicine 08/19/23 documented as of this encounter
--- OUTSIDE RECORDS SUMMARY | 2025-05-05 16:04 | XMS_ITS | Encounter Summary ---
Author Organization [facility] Address [address] [facility] [address] [place] [address] Phone Care Team Providers Care Slag Dumper Name Role Phone Jewel Rebolledo MD Primary Care Provider [phone] Pcp, Not Required Unavailable Unavailable Wade Seo DO, Justine Unavailable [phone] Luis Aly MD Unavailable [phone] Hodan Rodriguez MD, MPH Unavailable [phone] Encounter Details Date Type Department Care Team (Late st Contact Info) Description 12/08/2024 Procedure Pass [facility], Ct Scan - [address] [address] Social History Tobacco Use Types Packs/Day Years [...] for Head and Neck Oncology, [facility] [place] [address] [facility], [address] [place] [address] Francisca Dias MD, MPH [address] [place] [address] [email or web address] documented as of this encounter Visit Diagnoses Not on filedocumented in this encounter Care Teams Slag Dumper Relationship Specialty Start Date End Date Jewel Rebolledo MD [address] [place] [phone] PCP - General Internal Medicine 12/08/24 Pcp, Not Required [address] [place] [address] 12/08/24 Serenity Olvera DO [address] [place] [address] [email or web address] 12/26/24 Luis Aly MD [address] [place] [phone] [email or web address] Medical Oncology 12/26/24 Hodan Rodriguez MD, MPH [address] [place] [phone] [email or web address] 12/26/24 documented as of this encounter Additional Source Comments The information contained in this document represents components of the legal health record. It is not the complete legal health record.[facility]
--- OUTSIDE RECORDS SUMMARY | 2025-05-05 16:04 | XMS_ITS | Encounter Summary ---
Author Organization [facility] Address [address] [place] [address] Care Team Providers Care Dcs Engineer Name Role Phone Pcp, No Primary Care Provider Unavailabl e Reason for Visit * Reason Comments Appointment Encounter Details Date Type Department Care Team (Late st Contact Info) Description 12/03/2023 Telephone [facility] [address] [place] [address] Enoch Cardona MD [address] [phone] Appointment Social History Tobacco Use Types Packs/Day [...] on filedocumented in this encounter Care Teams Dcs Engineer Relationship Specialty Start Date End Date Pcp, No PCP - General General Medicine 08/19/23 documented as of this encounter
--- OUTSIDE RECORDS SUMMARY | 2025-05-05 16:04 | XMS_ITS | Encounter Summary ---
Author Organization [facility] [place] [address] Care Team Providers Care Windows Server Support Technician Name Role Phone Jewel Rebolledo MD Primary Care Provider [phone] Encounter Details Date Type Department Care Team (Latest Contact Info) Description 06/27/2024 Lab Requisition [facility] - Main Lab [address] [place] [address] Lamonte Sagastume MD [address] [place] [address] Direct infection of left ankle and foot [...] Info) Description 05/19/2025 11:30 AM EDT Appointment [facility] [address] [address] 06/09/2025 11:30 AM EDT Appointment [facility] [address] 2nd [place] [phone] documented as of this encounter Procedures Procedure Name Priority Date/Time Associated Diagnosis Comments COMPLETE BLOOD COUNT Routine 06/27/2024 4:47 AM EST 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 ([facility]/HCC) Unspecified fall, initial encounter Type 2 diabetes mellitus without complications ([facility]) BASIC METABOLIC PANEL Routine 06/27/2024 4:47 AM EST 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 ([facility]/HCC) Unspecified fall, initial encounter Type 2 diabetes mellitus without complications ([facility]) documented in this encounter Results * (ABNORMAL) Complete blood count (06/27/2024 4:47 AM EST) WBC 5.6 4.8 - 10.8 K/mcL LAB HEMETOLOGY METHOD 06/27/2024 11:31 AM [facility] RBC 3.50(L) 4.50 - 5.50 M/mcL LAB HEMETOLOGY METHOD 06/27/2024 11:31 AM [facility] Hemoglobin 9.7(L) 13.5 - 17.5 g/dL LAB HEMETOLOGY METHOD 06/27/2024 11:31 AM [facility] Hematocrit 31.4(L) 42.0 - 54.0 % LAB HEMETOLOGY METHOD 06/27/2024 11:31 AM [facility] MCV 90.0 79.0 - 98.0 FL LAB HEMETOLOGY METHOD 06/27/2024 11:31 AM [facility] MCH 27.8 27.0 - 32.0 pcg LAB HEMETOLOGY METHOD 06/27/2024 11:31 AM [facility] MCHC 30.9(L) 32.0 - 37.0 g/dL LAB HEMETOLOGY METHOD 06/27/2024 11:31 AM EST [facility] RDW 17.8(H) 11.0 - 15.0 % LAB HEMETOLOGY METHOD 06/27/2024 11:31 AM [facility] Platelets 158 130 - 400 K/mcL LAB HEMETOLOGY METHOD 06/27/2024 11:31 AM [facility] MPV 10.5 7.0 - 11.0 FL LAB HEMETOLOGY METHOD 06/27/2024 11:31 AM [facility] NRBC 0.0 <1.0 % LAB HEMETOLOGY METHOD 06/27/2024 11:31 AM [facility] NRBC Absolute 0.00 <0.10 K/mcL LAB HEMETOLOGY METHOD 06/27/2024 11:31 AM [facility] Blood Venous blood specimen / Unknown Venipuncture / Unknown 06/27/2024 4:47 AM EST 06/27/2024 10:54 AM EST us Lamonte Sagastume MD LAB BLOOD ORDERABLES Final Res ult [facility] [address] [place] [address], * (ABNORMAL) Basic metabolic panel (06/27/2024 4:47 AM EST) Sodium 140 133 - 145 mmol/L LAB CHEMISTRY METHOD 06/27/2024 11:34 AM [facility] Potassium 4.1 3.5 - 5.5 mmol/L LAB CHEMISTRY METHOD 06/27/2024 11:34 AM [facility] Chloride 103 96 - 110 mmol/L LAB CHEMISTRY METHOD 06/27/2024 11:34 AM [facility] CO2 33(H) 21 - 32 mmol/L LAB CHEMISTRY METHOD 06/27/2024 11:34 AM [facility] Anion Gap 4 3 - 11 LAB CHEMISTRY METHOD 06/27/2024 11:34 AM [facility] Glucose 94 70 - 100 mg/dL LAB CHEMISTRY METHOD 06/27/2024 11:34 AM [facility] BUN 51(H) 5 - 25 mg/dL LAB CHEMISTRY METHOD 06/27/2024 11:34 AM [facility] Creatinine 0.96 0.70 - 1.30 mg/dL LAB CHEMISTRY METHOD 06/27/2024 11:34 AM [facility] eGFR 77 >=60 mL/min/1. 73m2 LAB CHEMISTRY METHOD 06/27/2024 11:34 AM [facility] Comment:Calculation based on the Chronic Kidney Disease Epidemiology Collaboration (CKD-EPI) equation refit without adjustment for race. BUN/Creatinine Ratio 53.1 LAB CHEMISTRY METHOD 06/27/2024 11:34 AM [facility] Calcium 9.1 8.5 - 10.5 mg/dL LAB CHEMISTRY METHOD 06/27/2024 11:34 AM [facility] Blood Venous blood specimen / Unknown Venipuncture / Unknown 06/27/2024 4:47 AM EST 06/27/2024 10:54 AM EST us Lamonte Sagastume MD LAB BLOOD ORDERABLES Final Res ult [facility] [address] [place] [address], [place] [phone] documented in this encounter Visit Diagnoses Diagnosis 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 (CMS/HCC V24, CMS/HCC V28) Unspecified fall, initial encounter Type 2 diabetes mellitus without complications (CMS/HCC V24, CMS/[facility] V28) documented in this encounter Care Teams Windows Server Support Technician Relationship Specialty Start Date End Date Jewel Rebolledo MD [address] [place] [address] PCP - General 09/25/22 documented as of this encounter
--- OUTSIDE RECORDS SUMMARY | 2025-05-05 16:04 | XMS_ITS | Encounter Summary ---
Author Organization [facility] Address [address] [facility] [address] [place] [address] Phone Care Team Providers Care Christmas Tree Farm Worker Name Role Phone Jewel Rebolledo MD Primary Care Provider [phone] Pcp, Not Required Unavailable Unavailable Wade Seo DO, Justine Unavailable [phone] Luis Aly MD Unavailable [phone] Hodan Rodriguez MD, MPH Unavailable [phone] Encounter Details Date Type Department Care Team (Late st Contact Info) Description 12/08/2024 Procedure Pass [facility], Ct Scan - [address] [address] Social History Tobacco Use Types Packs/Day Years [...] for Head and Neck Oncology, [facility] [place] [address] [facility], 11th [place] [address] Francisca Dias MD, MPH [address] [place] [address] [email or web address] B[facility]S AT [facility] documented as of this encounter Visit Diagnoses Not on filedocumented in this encounter Care Teams Christmas Tree Farm Worker Relationship Specialty Start Date End Date Jewel Rebolledo MD [address] [place] [address] PCP - General Internal Medicine 12/08/24 Pcp, Not Required [address] [place] [address] 12/08/24 Serenity Olvera DO [address] [place] [address] [email or web address] Medical Oncology 12/26/24 Luis Aly MD [address] [place] [address] Medical Oncology 12/26/24 Hodan Rodriguez MD, MPH [address] [place] [address] [email or web address] Dermatology 12/26/24 documented as of this encounter Additional Source Comments The information contained in this document represents components of the legal health record. It is not the complete legal health record.[facility]
--- OUTSIDE RECORDS SUMMARY | 2025-05-05 16:04 | XMS_ITS | Encounter Summary ---
Author Organization [facility] [place] [address] Care Team Providers Care Screen Tacker Name Role Phone Jewel Rebolledo MD Primary Care Provider [phone] Encounter Details Date Type Department Care Team (Late Contact Info) Description 03/20/2025 Lab Requisition [facility] - Main Lab [address] [facility] [place] [phone] Sreekanth Lobato MD [address] [facility] 120 [place] [address] Urinary tract infection, site not [...] Info) Description 05/19/2025 11:30 AM EDT Appointment [facility] Infusion Center [address] [phone] 06/09/2025 11:30 AM EDT Appointment [facility] Infusion Center [address] [address] documented as of this encounter Procedures Procedure [...] reflex microscopic (03/20/2025 12:00 AM EDT) Specific [place] Urine 1.020 1.003 - 1.030 LAB URINALYSIS [...] - AUTOMATED METHOD 03/20/2025 8:48 PM EDT [facility] Bilirubin, Urine Negative Negative LAB URINALYSIS - AUTOMATED METHOD 03/20/2025 8:48 PM EDT [facility] Blood, Urine Negative Negative LAB URINALYSIS - AUTOMATED METHOD 03/20/2025 8:48 PM EDT [facility] RBC, Urine 1.6 0 - 4 /HPF LAB URINALYSIS - AUTOMATED METHOD 03/20/2025 8:48 PM EDT [facility] WBC, Urine 1.8 0 - 4 /HPF LAB URINALYSIS - AUTOMATED METHOD 03/20/2025 8:48 PM EDT [facility] Squamous Epithelial, Urine >100(H) 0 - 60 /LPF LAB URINALYSIS - AUTOMATED METHOD 03/20/2025 8:48 PM EDT [facility] Non-Squamous Epithelial, Urine 2-5 Transitional epithelial cells. /LPF 03/20/2025 8:48 PM EDT [facility] Bacteria, Urine Negative Negative /HPF LAB URINALYSIS - AUTOMATED METHOD 03/20/2025 8:48 PM EDT [facility] Hyaline Casts, Urine 0 0 - 3 /LPF LAB URINALYSIS - AUTOMATED METHOD 03/20/2025 8:48 PM [facility] Urine Urinary bladder structure / Unknown Non-blood Collection / Unknown 03/20/2025 03/20/2025 5:56 PM EDT us Sreekanth Lobato MD LAB URINE ORDERABLES Citlaly l Result [facility] [address] [place] [address], * (ABNORMAL) Culture urine (03/20/2025 12:00 AM EDT) Culture, Urine <1,000 CFU/mL Proteus mirabilis(A ) SAHRA 03/23/2025 8:28 AM EDT [facility] Comment: The organism value [...] Trimethoprim/Sulfamethoxazole SAHRA <=20 ug/ml: Susceptible us Sreekanth Loabto MD LAB MICROBIOLOGY - GENERA L ORDERABLES Final Result [facility] [address] [place] [address], documented in this encounter Visit Diagnoses Diagnosis Urinary tract infection, site not specified documented in this encounter Care Teams Screen Tacker Relationship Specialty Start Date End Date Jewel Rebolledo MD [address] [place] [address] PCP - General 09/25/22 documented as of this encounter
--- OUTSIDE RECORDS SUMMARY | 2025-05-05 16:04 | XMS_ITS | Encounter Summary ---
Author Organization [facility] Address [address] [place] [address] Care Team Providers Care Autism Motor Specialist Name Role Phone Pcp, No Primary Care Provider Unavailabl e Reason for Visit * Reason Comments Appointment Encounter Details Date Type Department Care Team (Late st Contact Info) Description 01/13/2024 Telephone [facility] [address] [place] [address] Enoch Cardona MD [address] [phone] Appointment Social History Tobacco Use Types Packs/Day [...] on filedocumented in this encounter Care Teams Autism Motor Specialist Relationship Specialty Start Date End Date Pcp, No PCP - General General Medicine 08/19/23 documented as of this encounter
--- OUTSIDE RECORDS SUMMARY | 2025-05-05 16:04 | XMS_ITS ---
Author Organization [address] [facility] Address [address] [place] [address] Phone Care Team Providers Care Rn Travel Name Role Phone Jewel Rebolledo MD Primary Care Provider [phone] Active Problems Problem Noted Date Diagnosed Date [...] treatments are documented for this patient in [facility]. Treatments may have been administered in another system.
--- OUTSIDE RECORDS SUMMARY | 2025-05-05 16:05 | XMS_ITS | Clinical Summary ---
Author Organization [facility] Address [address] [facility] [address] [place] [address] Phone Care Team Providers Care Production Recorder Name Role Phone Jewel Rebolledo MD Primary Care Provider [phone] Pcp, Not Required Unavailable Unavailable Wade Seo DO, Justine Unavailable [phone] Luis Aly MD Unavailable [phone] Hodan Rodriguez MD, MPH Unavailable [phone] Medications LANTUS SOLOSTAR U-100 INSULIN 100 unit/mL (3 mL) InPn injection pen 0.1 ml Subcutaneous Once a day for 30 day(s) Active insulin aspart U-100 (NOVOLOG U-100 INSULIN ASPART) 100 unit/mL injection vial Inject 8 Units under the skin 3 (three) times a day before meals. Active isosorbide dinitrate (ISORDIL) 30 MG immediate release tablet Take 30 mg by mouth 2 (two) times a day. Active isosorbide mononitrate (IMDUR) 30 MG 24 hr tablet 3 Active losartan (COZAAR) 25 MG tablet Take 25 mg by mouth daily. 3 Active metoprolol succinate (TOPROL-XL) 25 MG 24 hr tablet Acti ve metoprolol tartrate (LOPRESSOR) 50 MG tablet Take 1 tablet by mouth 2 (two) times a day. 4 Active OLANZapine (ZYPREXA) 2.5 MG tablet Take 2.5 mg by mouth nightly at bedtime. Active oxyCODONE HCl 10 mg Tab Take 1 tablet by mouth every 4 (four) hours as needed. Active TRESIBA FLEXTOUCH U-100 injection pen Inject 22 Units under the skin nightly at bedtime. 5 Active Active Problems Problem Noted Date Diagnosed Date Squamous cell carcinoma of skin of face 11/17/19 25 Encounters Date Type Department Care Team Description 05/02/2025 9:30 AM EDT Office Visit [facility] [place] [address] [facility], 11th [place] [address] Francisca Dias MD, MPH 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) 04/20/2025 Telephone [facility] [address] [place] [address] Rojelio Gallardo MD 04/13/2025 11:45 AM EDT Infusion [facility] Imaging Department, [facility], Imaging [place] [address] [facility], Floor [address]1 [place] [address] Hodan Rodriguez MD, MPH Diane Molina RN 04/13/2025 11:28 AM EDT - 04/13/2025 11:59 PM EDT Hospital Encounter [facility] Imaging Department, [facility], [place] [address] [facility], [address] [place] [address] Hodan Rodriguez MD, MPH Discharge Disposition: Home or Self Care 04/13/2025 10:20 AM EDT Office Visit [facility], [facility] [address] [facility], 5th [place] [address] Hodan Rodriguez MD, MPH Squamous cell carcinoma of forehead (Primary Dx) 04/13/2025 Procedure Pass [place] [facility] Imaging Department, [facility], [place] [address] [facility], Floor [address]1 [place] [address] 04/13/2025 Procedure Pass [facility] Imaging Department, [facility], [place] [address] [facility], Floor [address] [place] [address] 02/27/2025 Telephone [facility] [address] [place] [address] Afua Weiss 02/27/2025 Telephone [facility] Center [address] [place] [address] Afua Weiss 02/22/2025 Telephone [facility], [facility] [place] [address] [facility], 5th [place] [address] Janette Stevenson, RN Care Coordination from Last [...] Visit [facility], [facility] [facility] [place] [address] [facility], 11th [place] [address] Francisca Dias MD, MPH [address] [place] [address] [email or web address] Maintenance Due Date Last Done Comments DEPRESSION SCREENING 1947 RSV VACCINE (1 - 1-dose 75+ series) 2012 PNEUMOCOCCAL VACCINES (50+ years) (2 of 2 - PCV) 03/11/2022 03/11/2021 INFLUENZA VACCINE (#1) 2025 , 05/26/2023, 05/20/2022, Additional history exists COVID-19 VACCINE ( - 2024- season) 2025 06/14/2021, 10/24/2020, 10/03/2020 POTASSIUM LEVEL [...] clinician's provided indication for this examination in [facility]:Skin cancer, surveillance; Pt with large [...] clinician's provided indication for this examination in [facility]: Skin cancer, surveillance; Pt with large SCC [...] clinician's provided indication for this examination in [facility]:Skin cancer, surveillance; Pt with large [...] EDT) Creatinine 1.00 0.50 - 1.20 mg/dl [facility] LIC# [id number] EGFR 73 >59 mL/min/1.7 3m2 [facility] LIC# [id number] Comment:Estimated glomerular filtration rate calculated using the CKD-EPI refit equation. 04/13/2025 12:0 0 PM EDT 04/13/2025 12:02 PM EDT us Hodan Rodriguez MD, MPH POINT OF CARE TEST ORDERABL ES Final Result [facility] LIC# [id number] [address] [place] [address] * (ABNORMAL) Comprehensive metabolic panel (12/15/2024 10:05 AM EDT) SODIUM 138 133 - 146 mmol/L [facility] POTASSIUM 3.9 3.3 - 5.1 mmol/L [facility] CHLORIDE 100 96 - 108 mmol/L [facility] CO2 30 21 - 35 mmol/L [facility] BUN 30(H) 6 - 19 mg/dL [facility] CREATININE 1.30 0.5 - 1.5 mg/dL [facility] GLUCOSE 253(H) 70 - 99 mg/dL [facility] ALBUMIN 3.7(L) 3.9 - 4.8 g/dL [facility] TOTAL PROTEIN 7.2 6.5 - 8.0 g/dL [facility] CALCIUM 9.6 8.4 - 10.3 mg/dL [facility] ALKALINE PHOSPHATASE 142(H) 39 - 117 U/L [facility] TOTAL BILIRUBIN 0.6 0.0 - 1.2 mg/dL [facility] AST 32 0 - 37 U/L [facility] ALT 22 0 - 40 U/L [facility] GLOBULIN 3.5 1 - 4.8 g/dL [facility] EGFR 53(L) >59 mL/min/1.7 3m2 [facility] Comment:Estimated glomerular filtration rate calculated using the CKD-EPI refit equation. ANION GAP 12 10 - 20 mmol/L [facility] Blood 12/15/2024 10:0 5 AM EDT 12/15/2024 10:07 AM EDT us Diann Gutierres MD, PhD LAB BLOOD ORD ERABLES Final Result [address] [address] from Last 3 Months or Most Recently Relevant to Health Maintenance Insurance MEDICARE PART A & B ND Acquisitions [employer] SUPPLEMENT MEDICARE PART A & B [employer] MED[employer] SUPPLEMENT MEDICARE PART A & B [employer] MED[employer] SUPPLEMENT MEDICARE PART A & B [employer] MED[employer] SUPPLEMENT MEDICARE PART A & B [employer] SUPPLEMENT MEDICARE PART A & B Member Subscriber Plan / Payer (Ef fective 2002-Present) Name:Jewel Canales Member ID:[id number] Relation to Subscriber:Self Name:Jewel Canales Subscriber ID:[id number] Payer ID:[id number] Group ID:Not on file Type:Medicare Address: [facility] [employer] [facility] [address] [address] [employer] MEDEX SUPPLEMENT Care Teams Production Recorder Relationship Specialty Start Date End Date Jewel Rebolledo MD [address] [place] [address] PCP - General Internal Medicine 12/08/24 Pcp, Not Required [address] [place] [address] 12/08/24 Serenity Olvera DO [address] [place] [address] [email or web address] Medical Oncology 12/26/24 Luis Aly MD [address] [place] [address] [email or web address] Medical Oncology 12/26/24 Hodan Rodriguez MD, MPH [address] [place] [address] [email or web address] Dermatology 12/26/24 Additional Source Comments The information contained in this document represents components of the legal health record. It is not the complete legal health record.[facility]
--- OUTSIDE RECORDS SUMMARY | 2025-05-05 16:05 | XMS_ITS | Encounter Summary ---
Author Organization [facility] Address [address] [facility] [address] [place] [address] Phone Care Team Providers Care School Program Director Name Role Phone Jewel Rebolledo MD Primary Care Provider [phone] Pcp, Not Required Unavailable Unavailable Wade Seo DO, Justine Unavailable [phone] Luis Aly MD Unavailable [phone] Hodan Rodriguez MD, MPH Unavailable [phone] Encounter Details Date Type Department Care Team (Late st Contact Info) Description 02/27/2025 Telephone [facility] Center [address] [place] [address] Afua Weiss [address] [place] [address] [address] [place] [address] [email or web address] Social History Tobacco Use Types [...] It is documented on February 23 that [facility] was informed hisdermatology care( skin cancers) [...] for Head and Neck Oncology, [facility] [place] [address] [facility], 11th [place] [address] Francisca Dias MD, MPH [address] [place] [phone] [email or web address] documented as of this encounter Visit Diagnoses Not on filedocumented in this encounter Care Teams School Program Director Relationship Specialty Start Date End Date Jewel Rebolledo MD [address] [place] [address] PCP - General Internal Medicine 12/08/24 Pcp, Not Required [address] [place] [address] 12/08/24 Serenity Olvera DO [address] [place] [address] [email or web address] Medical Oncology 12/26/24 Luis Aly MD [address] [place] [phone] [email or web address] 12/26/24 Hodan Rodriguez MD, MPH [address] [place] [phone] [email or web address] Dermatology 12/26/24 documented as of this encounter Additional Source Comments The information contained in this document represents components of the legal health record. It is not the complete legal health record.[facility]
--- OUTSIDE RECORDS SUMMARY | 2025-05-05 16:05 | XMS_ITS | Encounter Summary ---
Author Organization [facility] Address [address] [facility] [address] [place] [address] Phone Care Team Providers Care Supervisor Dry Cell Assembly Name Role Phone Jewel Rebolledo MD Primary Care Provider [phone] Pcp, Not Required Unavailable Unavailable Wade Seo DO, Justine Unavailable [phone] Luis Aly MD Unavailable [phone] Hodan Rodriguez MD, MPH Unavailable [phone] Encounter Details Date Type Department Care Team (Late st Contact Info) Description 04/13/2025 Procedure Pass [place] [facility] Imaging Department, [facility] [facility] [place] [place] [address] [facility], Floor [address] [place] [address] Social History Tobacco Use Types Packs/Day Years [...] Visit [facility], [facility] [facility] [place] [address] [facility], 11th [place] [address] Francisca Dias MD, MPH [address] [place] [address] [email or web address] documented as of this encounter Visit Diagnoses Not on filedocumented in this encounter Care Teams Supervisor Dry Cell Assembly Relationship Specialty Start Date End Date Jewel Rebolledo MD [address] [place] [address] PCP - General Internal Medicine 12/08/24 Pcp, Not Required [address] [place] [address] 12/08/24 Serenity Olvera DO [address] [place] [address] [email or web address] Medical Oncology 12/26/24 Luis Aly MD [address] [place] [address] Medical Oncology 12/26/24 Hodna Rodriguez MD, MPH [address] [place] [address] [email or web address] Dermatology 12/26/24 documented as of this encounter Additional Source Comments The information contained in this document represents components of the legal health record. It is not the complete legal health record.[facility]
--- OUTSIDE RECORDS SUMMARY | 2025-05-05 16:05 | XMS_ITS | Encounter Summary ---
Author Organization [facility] Address [address] [facility] [address] [place] [phone] Phone Care Team Providers Care Voice Teacher Name Role Phone Jewel Rebolledo MD Primary Care Provider [phone] Pcp, Not Required Unavailable Unavailable Wade Seo DO, Justine Unavailable [phone] Luis Aly MD Unavailable [phone] Hodan Rodriguez MD, MPH Unavailable [phone] Encounter Details Date Type Department Care Team (Late st Contact Info) Description 04/13/2025 Procedure Pass [facility], [facility] [place] [place] [address] [facility], Floor [address]1 [place] [address] Social History Tobacco Use Types Packs/Day Years [...] [facility], [facility] [place] [address] [facility], 11th [place] [address] Francisca Dias MD, MPH [address] [place] [address] [email or web address] documented as of this encounter Visit Diagnoses Not on filedocumented in this encounter Care Teams Voice Teacher Relationship Specialty Start Date End Date Jewel Rebolledo MD [address] [place] [phone] PCP - General Internal Medicine 12/08/24 Pcp, Not Required [address] [place] [phone] 12/08/24 Serenity Olvera DO [address] [place] [address] [email or web address] Medical Oncology 12/26/24 Luis Aly MD [address] [place] [phone] Medical Oncology 12/26/24 Hodan Rodriugez MD, MPH [address] [place] [phone] [email or web address] [email or web address] 12/26/24 documented as of this encounter Additional Source Comments The information contained in this document represents components of the legal health record. It is not the complete legal health record.[facility]
--- OUTSIDE RECORDS SUMMARY | 2025-05-05 16:05 | XMS_ITS | Encounter Summary ---
Author Organization [facility] Address [address] [facility] [address] [place] [address] Phone Care Team Providers Care Fishing Instructor Name Role Phone Jewel Rebolledo MD Primary Care Provider [phone] Pcp, Not Required Unavailable Unavailable Wade Seo DO, Justine Unavailable [phone] Luis Aly MD Unavailable [phone] Hodan Rodriguez MD, MPH Unavailable [phone] Encounter Details Date Type Department Care Team (Late st Contact Info) Description 02/27/2025 Telephone [facility] [address] [place] [address] Afua Weiss [address] [place] [address] [address] [place] [address] [email or web address] Social History Tobacco Use Types [...] Visit [facility], [facility] [place] [address] [facility], [address]th [place] [address] Francisca Dias MD, MPH [address] [place] [address] [email or web address] documented as of this encounter Visit Diagnoses Not on filedocumented in this encounter Care Teams Fishing Instructor Relationship Specialty Start Date End Date Jewel Rebolledo MD [address] [place] [phone] PCP - General Internal Medicine 12/08/24 Pcp, Not Required [address] [place] [address] 12/08/24 Serenity Olvera DO [address] [place] [address] [email or web address] Medical Oncology 12/26/24 Luis Aly MD [address] [place] [phone] Medical Oncology 12/26/24 Hodan Rodriguez MD, MPH [address] [place] [phone] [email or web address] Dermatology 12/26/24 documented as of this encounter Additional Source Comments The information contained in this document represents components of the legal health record. It is not the complete legal health record.[facility]
--- OUTSIDE RECORDS SUMMARY | 2025-05-05 16:05 | XMS_ITS | Clinical Summary ---
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); Drug therapy; Hypothyroidism due to drugs Discharge Disposition: Home or Self Care 03/20/2025 Lab Requisition [facility] Lab [address] [facility] [place] [phone] Sreekanth Lobato MD Urinary tract infection, site not specified 02/22/2025 Telephone [facility] Hematology Oncology [address] [place] [phone] Jack Russell MD 02/16/2025 Telephone [facility] [address] [place] [phone] Katie Mosqueda RN from Last 3 Months Social History Tobacco [...] Info) Description 05/19/2025 11:30 AM EDT Appointment [facility] [address] [phone] 06/09/2025 11:30 AM EDT Appointment [facility] [address] [phone] Health Maintenance Due Date Last Done Comments [...] EDT Urinary tract infection, site not specified from Last 3 Months Results * (ABNORMAL) CBC auto differential (04/28/2025 12:12 PM EDT) WBC 5.2 4.8 - 10.8 K/[facility] LAB HEMETOLOGY METHOD 04/28/2025 1:10 PM EDT [facility] RBC 3.10(L) 4.50 - 5.50 M/mcL LAB HEMETOLOGY METHOD [facility] Hemoglobin 9.4(L) 13.5 - 17.5 g/dL LAB HEMETOLOGY METHOD 04/28/2025 1:10 PM EDT [facility] Hematocrit 29.3(L) 42.0 - 54.0 % LAB HEMETOLOGY METHOD 04/28/2025 1:10 [facility] MCV 93.3 79.0 - 98.0 FL LAB HEMETOLOGY METHOD 04/28/2025 1:10 PM [facility] MCH 29.9 27.0 - 32.0 pcg LAB HEMETOLOGY METHOD 04/28/2025 1:10 [facility] MCHC 32.1 32.0 - 37.0 g/dL LAB HEMETOLOGY METHOD 04/28/2025 1:10 PM [facility] RDW 17.6(H) 11.0 - 15.0 % LAB HEMETOLOGY METHOD 04/28/2025 1:10 PM [facility] Platelets 97(L) 130 - 400 K/mcL LAB HEMETOLOGY METHOD 04/28/2025 1:10 PM [facility] Comment:reviewed by slide MPV 9.8 7.0 - 11.0 FL LAB HEMETOLOGY METHOD 04/28/2025 1:10 [facility] NRBC 0.0 <1.0 % LAB HEMETOLOGY METHOD 04/28/2025 1:10 PM [facility] NRBC Absolute 0.00 <0.10 K/mcL LAB HEMETOLOGY METHOD 04/28/2025 1:10 [facility] Neutrophils Relative 56.4 % LAB HEMETOLOGY METHOD 04/28/2025 1:10 PM EDT [facility] Lymphocytes Relative 19.1 % LAB HEMETOLOGY METHOD 04/28/2025 1:10 PM [facility] Monocytes Relative 10.1 % LAB HEMETOLOGY METHOD 04/28/2025 1:10 PM [facility] Eosinophils Relative 12.8 % LAB HEMETOLOGY METHOD 04/28/2025 1:10 PM [facility] Basophils Relative 0.6 % LAB HEMETOLOGY METHOD 04/28/2025 1:10 PM [facility] Immature Granulocytes Relative 1.0 % LAB HEMETOLOGY METHOD 04/28/2025 1:10 PM [facility] Neutrophils Absolute 2.92 1.50 - 7.00 K/mcL LAB HEMETOLOGY METHOD 04/28/2025 1:10 PM [facility] Lymphocytes Absolute 0.99(L) 1.00 - 5.00 K/mcL LAB HEMETOLOGY METHOD 04/28/2025 1:10 PM [facility] Monocytes Absolute 0.52 0.20 - 1.00 K/mcL LAB HEMETOLOGY METHOD 04/28/2025 1:10 PM [facility] Eosinophils Absolute 0.66(H) 0.00 - 0.50 K/mcL LAB HEMETOLOGY METHOD 04/28/2025 1:10 PM [facility] Basophils Absolute 0.03 0.00 - 0.20 K/mcL LAB HEMETOLOGY METHOD 04/28/2025 1:10 PM [facility] Immature Granulocytes Absolute 0.05(H) 0.00 - 0.03 K/mcL LAB HEMETOLOGY METHOD 04/28/2025 1:10 PM [facility] Blood Venous blood specimen / Unknown Venipuncture / Unknown 04/28/2025 12:12 PM EDT 04/28/2025 12:16 PM EDT us Jack Russell MD LAB BLOOD ORDERABLE S Final Result Performing Organization Address [facility]/ZIP Co de Phone Number [facility] [address] [place] [address], [place] [phone] * Thyroid stimulating hormone (04/28/2025 12:12 PM EDT) TSH 2.29 0.40 - 4.00 mcIU/mL LAB CHEMISTRY METHOD 04/28/2025 1:51 PM EDT [facility] Blood Venous blood specimen / Unknown Venipuncture / Unknown 04/28/2025 12:12 PM EDT 04/28/2025 12:16 PM EDT us Jack Russell MD LAB BLOOD ORDERABLE S Final Result Performing Organization Address [facility]/ZIP Co de Phone Number [facility] [address] [place] [address], [place] [phone] * (ABNORMAL) Comprehensive metabolic panel (04/28/2025 12:12 PM EDT) Sodium 137 133 - 145 mmol/L LAB CHEMISTRY METHOD 04/28/2025 12:51 PM EDT [facility] Potassium 4.1 3.5 - 5.5 mmol/L LAB CHEMISTRY METHOD 04/28/2025 12:51 PM EDT [facility] Chloride 106 96 - 110 mmol/L LAB CHEMISTRY METHOD 04/28/2025 12:51 PM EDT [facility] CO2 28 21 - 32 mmol/L LAB CHEMISTRY METHOD 04/28/2025 12:51 PM EDT [facility] Anion Gap 3 3 - 11 LAB CHEMISTRY METHOD 04/28/2025 12:51 PM EDT [facility] Glucose 257(H) 70 - 100 mg/dL LAB CHEMISTRY METHOD 04/28/2025 12:51 PM [facility] BUN 29(H) 5 - 25 mg/dL LAB CHEMISTRY METHOD 04/28/2025 12:51 PM [facility] Creatinine 1.22 0.70 - 1.30 mg/dL LAB CHEMISTRY METHOD 04/28/2025 12:51 PM [facility] eGFR 57(L) >=60 mL/min/1. 73m2 LAB CHEMISTRY METHOD 04/28/2025 12:51 PM [facility] Comment:Calculation based on the Chronic Kidney Disease Epidemiology Collaboration (CKD-EPI) equation refit without adjustment for race. BUN/Creatinine Ratio 23.8 LAB CHEMISTRY METHOD 04/28/2025 12:51 PM [facility] Calcium 8.8 8.5 - 10.5 mg/dL LAB CHEMISTRY METHOD 04/28/2025 12:51 PM [facility] AST (SGOT) 54(H) 10 - 42 unit/L LAB CHEMISTRY METHOD 04/28/2025 12:51 PM [facility] ALT (SGPT) 61(H) 10 - 60 unit/L LAB CHEMISTRY METHOD 04/28/2025 12:51 PM [facility] Alkaline Phosphatase 208(H) 42 - 121 unit/L LAB CHEMISTRY METHOD 04/28/2025 12:51 PM [facility] Total Protein 6.0 6.0 - 8.0 g/dL LAB CHEMISTRY METHOD 04/28/2025 12:51 PM [facility] Albumin 2.9(L) 3.2 - 5.0 g/dL LAB CHEMISTRY METHOD 04/28/2025 12:51 PM [facility] Total Bilirubin 0.5 0.0 - 1.4 mg/dL LAB CHEMISTRY METHOD 04/28/2025 12:51 PM [facility] Blood Venous blood specimen / Unknown Venipuncture / Unknown 04/28/2025 12:12 PM EDT 04/28/2025 12:16 PM EDT Jack Russell MD LAB BLOOD ORDERABLE S Final Result [facility] [address] [place] [address], [place] [phone] * (ABNORMAL) Urinalysis with reflex microscopic (03/20/2025 12:00 AM EDT) Specific [place] Urine 1.020 1.003 - 1.030 LAB URINALYSIS - AUTOMATED METHOD 03/20/2025 8:48 PM EDT [facility] pH, Urine 6.0 5.0 - 8.0 pH LAB URINALYSIS - AUTOMATED METHOD 03/20/2025 8:48 PM EDT [facility] Leukocytes, Urine Negative Negative LAB URINALYSIS - AUTOMATED METHOD 03/20/2025 8:48 PM T [facility] Nitrite, Urine Negative Negative LAB URINALYSIS - AUTOMATED METHOD 03/20/2025 8:48 PM EDT [facility] Protein, Urine Negative <=Trace mg/dL LAB URINALYSIS - AUTOMATED METHOD 03/20/2025 8:48 PM EDT [facility] Glucose, Urine >=1000(A) Negative mg/dL LAB URINALYSIS - AUTOMATED METHOD 03/20/2025 8:48 PM EDT [facility] Ketones, Urine Negative Negative mg/dL LAB URINALYSIS - AUTOMATED METHOD 03/20/2025 8:48 [facility] Urobilinogen , Urine 0.2 0.2 - 1.0 mg/dL LAB URINALYSIS - AUTOMATED METHOD 03/20/2025 8:48 PM [facility] Bilirubin, Urine Negative Negative LAB URINALYSIS - AUTOMATED METHOD 03/20/2025 8:48 PM EDT [facility] Blood, Urine Negative Negative LAB URINALYSIS - AUTOMATED METHOD 03/20/2025 8:48 PM EDT [facility] RBC, Urine 1.6 0 - 4 /HPF LAB URINALYSIS - AUTOMATED METHOD 03/20/2025 8:48 PM EDT [facility] WBC, Urine 1.8 0 - 4 /HPF LAB URINALYSIS - AUTOMATED METHOD 03/20/2025 8:48 PM EDT [facility] Squamous Epithelial, Urine >100(H) 0 - 60 /LPF LAB URINALYSIS - AUTOMATED METHOD 03/20/2025 8:48 PM EDT [facility] Non-Squamous Epithelial, Urine 2-5 Transitional epithelial cells. /LPF 03/20/2025 8:48 PM EDT [facility] Bacteria, Urine Negative Negative /HPF LAB URINALYSIS - AUTOMATED METHOD 03/20/2025 8:48 PM EDT [facility] Hyaline Casts, Urine 0 0 - 3 /LPF LAB URINALYSIS - AUTOMATED METHOD 03/20/2025 8:48 PM EDT [facility] Urine Urinary bladder structure / Unknown Non-blood Collection / Unknown 03/20/2025 03/20/2025 5:56 PM EDT Sreekanth Lobato MD LAB URINE ORDERABLES Citlaly l Result [facility] [address] [place] [address], * (ABNORMAL) Culture urine (03/20/2025 12:00 AM EDT) Culture, Urine <1,000 CFU/mL Proteus mirabilis(A ) SAHRA 03/23/2025 8:28 AM EDT [facility] Comment: The organism value for [...] MICROBIOLOGY - GENERA L ORDERABLES Final Result [facility] ([facility]) [facility] [address] [place] [address], from Last 3 Months Insurance MEDICARE [facility] Advance Directives Documents on File Type Date Recorded 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
== END 2025-05-05 14:15 | disposition home or self-care (01) ==
LOC: HO.HMCSH 13:24
PROVIDERS: PCP Physician Assistant Medical; Visit Provider Physician Assistant Medical
DX: C44.320 Squamous cell carcinoma of skin of unspecified parts of face (principal); E11.9 Type 2 diabetes mellitus without complications

== ENCOUNTER → 2025-05-05 13:24 | Outpatient (BNVA) | payer MEDICARE, SELFPAY | PROVIDERS: PCP Physician Assistant Medical; Visit Provider Physician Assistant Medical | DX: E11.9 Type 2 diabetes mellitus without complications (principal); I48.0 Paroxysmal atrial fibrillation; I50.30 Unspecified diastolic (congestive) heart failure; C44.320 Squamous cell carcinoma of skin of unspecified parts of face; Z99.89 Dependence on other enabling machines and devices; Z91.81 History of falling | CPT/HCPCS: 99212 ==

== ENCOUNTER 2025-05-15 14:00 | Outpatient (AMB) | payer MEDICARE, SELFPAY ==
--- NOTE | 2025-05-15 13:59 | A.OFFVIS_ITS ---
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 Required: No Accompanied by: Spouse Allergies No Known Allergies Allergy (Mild, Verified 05/15/25 14:30) N/A Medication List - Last Reconciled 05/15/25 by Amisha Abraham PA-C apixaban (Eliquis) 2.5 mg PO BID atorvastatin 40 mg PO BEDTIME blood-glucose sensor (FreeStyle Rob 3 Plus Sensor device) Check glucose 3 times a day with meals blood-glucose,conference coordinator,cont (FreeStyle Rob 3 [place]) Check glucose 3 times a day with meals cholecalciferol (vitamin D3) (Vitamin D3) 125 mcg PO DAILY clotrimazole-betamethasone 1-0.05 % 1 appl topical BID PRN cyanocobalamin (vitamin B-12) 1,000 mcg PO DAILY cyclobenzaprine 10 mg PO Q8H diaper,brief,adult,disposable As directed - 4 per day ferrous sulfate 325 mg PO DAILY insulin aspart U-100 (Novolog FlexPen U-100 Insulin aspart) Insulin Lispro (insulin lispro 100 units/mL injectable solution) 7-14 units Subcutaneous Injection 3 times a day before meals << Sliding Scale Comments >>100 - 139 7 units Call if less than 33352 - 179 8 units 180 - 219 9 units 220 - 259 10 units 260 - 299 11 units 300 - 339 12 units 340 - 379 13 units 380 - 419 14 units Call if greater than 40... insulin degludec (Tresiba FlexTouch U-100 insulin) 22 units (0.22 mL) subcut BEDTIME isosorbide mononitrate ER 30 mg PO DAILY iixzw-1w-pta-epa-fish oil 300-1,000 mg (Winston-3 Fish Oil) 1 cap PO DAILY pregabalin 150 mg PO QID 90 days torsemide 20 mg PO DAILY walker rollator with basket to be used daily HPI AWV HPI Details The patient is an 89-year-old male presenting for an annual wellness visit. He has a history of skin cancer, currently undergoing chemotherapy to reduce the tumor size near his left eye, with treatment ongoing for nine months. The patient also has a history of prostate cancer treated with radiation therapy, resulting in urinary incontinence managed with absorbent products. He has been hospitalized multiple times for various conditions, including a bladder issue requiring surgical intervention and management with inserts. He maintains a good appetite, does not drive, and seldom experiences dizziness. The patient is somewhat confident in managing his health and aims to live to 89 years old. Social History - Family Status: for 65 years, w sae assists with transportation and some daily activities. - Exercise: Limited to walking with a wa lker from one room to another. - Substance Use: Denies smoking and repo rts a single instance of alcohol consumption in the past four weeks. - Functional Status: Relies on for transportation, manages personal care with some assistance, and is dependent for traveling. HPI Comments History of Present Illness Details Patient is here for an Annual Wellness Visit today. List of all patient's Health Care Provider's PCP- Amisha Abraham PA-C Industrial Manufacturing Technician- Dr. Deluca Urologist- Dr. Anaya Psychiatric Social Worker Supervisor-[place] Oncologist- [place] Reviewed past medical history- yes Reviewed surgical / hospitalization history- yes Reviewed family history- yes Reviewed current medications- yes Review all current providers patient is actively being followed by- yes Risk Factors Do exercise? Walks daily in house with walker How many days per week? 20 minutes daily Minutes per episode question? 20 minutes daily or more Do hernandez regularly? no Do go to the dentist yearly? yes or every 6 months? yes Do use a seat belt in the vehicle? yes Home safety Throw rugs? no Grab bars? yes Raised toilet seat? yes raised toilets Working smoke detectors? yes Fall risk assessment Fall risk? fall risk over a dozen falls this year Have you had any falls with injuries in the past year? over a dozen Have you had 2 or more falls in the past year? yes Fall risk assessment: fall risk high uses walker Visit History Last Wellness Visit: Date? unknown If diabetic, last diabetic eye exam: Date? Last May going again May 31, 2025 Last hospitalization: If any? Yes recently for many medical conditions Additonal Services needed/Case Management Referrals? Patient denies needing any referrals at this time Education? none at this time Asthma? none at this time COPD? none at this time Diabetes? none at this time Medication management? none at this time End of life planning Discussed advanced directives- Yes Member did not wish to discuss above? No Advanced directives on file? Patient reports he has it at home and should be on file Discussed wishes expressed in advanced directives? Full code at this time per patient Encouraged member to inform others about care preferences. [facility] Medical History (Updated 05/15/25 @ 16:47 by Amisha Abraham PA-C) Encounter for annual wellness exam in Medicare patient Anemia Walker as ambulation aid Chronic pain syndrome Cough Type 2 diabetes mellitus with hemoglobin A1c goal of less than 7.0% Atrial fibrillation Squamous cell carcinoma of skin of face Arthritis Persistent atrial fibrillation Acute on chronic diastolic (congestive) heart failure Urinary tract infection due to Pseudomonas aeruginosa Recurrent UTI History of prostate cancer Acute retention of urine COVID-19 vaccine series completed History of cardioversion Hx of Lyme disease Tubular adenoma of colon History of ST elevation myocardial infarction (STEMI) (HFpEF) heart failure with preserved ejection fraction Cardiac pacemaker in situ (~12/2020) Hepatorenal syndrome Symptomatic bradycardia Ventricular bigeminy Thrombocytopenia PVC (premature ventricular contraction) CHF exacerbation Bifascicular block Pancytopenia Prostate CA Myocardial infarct, old CAD (coronary artery disease) HLD (hyperlipidemia) Diabetes HTN (hypertension) Surgical History History of colonoscopy (~12/04/21) History of cervical spinal surgery History of radical prostatectomy History of left inguinal hernia repair History of total right knee replacement (TKR) History of lumbar discectomy History of cardiac pacemaker (~12/2020) Family History Father Stromal tumor of the stomach Mother Diabetes Social History Household Members: Spouse Household Members Other:: 1 Housing: House Are you a primary day care supervisor to a significant other at home: No Do you presently have visiting nurse or other home services: Yes Alcohol intake: current Patient Tobacco Use Status: Former Tobacco user Tobacco use type: Cigarette Second Hand Smoke Exposure: No Advance Directives Date on File: 01/04/23 service: Yes Current occupational status: retired Cognitive needs: Yes (walker) Hearing needs: No Vision needs: Yes (reading/cheaters) Questionnaire Medicare Wellness Checkup What is your age?: 82 or older What gender do you identify with?: male During the past 4 weeks, how much have you been bothered by emotional problems such as feeling anxious, depressed, irritable, sad or downhearted, and blue?: not at all During the past 4 weeks, has your physical & emotional health limited your social activities with family, friends, neighbors, or groups?: moderately During the past 4 weeks, how much bodily pain have you generally had?: severe pain During the past 4 weeks, was someone available to help you if you needed & wanted help?: yes, as much as I wanted During the past 4 weeks, what was the hardest physical activity you could do for at least 2 minutes?: moderate Can you get to places out of walking distance without help? (For eg., can you travel alone on buses, taxis or drive your car?): No Can you go shopping for groceries or clothes without someone's help?: No Can you prepare your own meals?: Yes Can you do your housework without help?: No Because of any health problems, do you need the help of another person with your personal care needs such as eating, bathing, dressing or getting around the house?: Yes Can you handle your own money without help?: Yes During the past 4 weeks, how would you rate your health in general?: fair During the past 4 weeks how have things been going for you?: very well; could hardly better Are you having difficulties driving your car?: not applicable, I don't use a car Do you always fasten your seat belt when you are in a car?: yes, usually During past 4 weeks, have you been bothered by the following: never: Sexual problems?, Trouble eating well?, Teeth or denture problems? and Problems using the telephone?, seldom: Falling or dizzy when standing up and sometimes: Tiredness or fatigue? Have you fallen 2 or more times in the past year?: Yes Are you afraid of falling?: Yes Are you a smoker?: no During the past 4 weeks, how many drinks of wine, beer, or other alcoholic beverages did you have?: no alcohol at all Do you exercise for about 20 minutes 3 or more times a week?: yes, most of the time Have you been given information to help with the following?: yes: Hazards in your house that might hurt you? and yes: Keeping track of your medications? How often do you have trouble taking medicines the way you have been told to take them?: I always take medicine as prescribed How confident are you that you can control & manage most of your health problems?: somewhat confident What is your race?: White Mini Mental State Exam (MMSE) Orientation What is the (year) (season) (date) (day) (month)?: year, season, date, day and month Where are we (state) (county) (town or city) (hospital) (floor)?: state, county, town or city, hospital/clinic and floor Registration Name of 3 unrelated objects clearly and slowly, then ask patient to repeat all 3 of them. (1st repeat determines score. Make sure they can repeat all three): object 1 (banana ), object 2 (sunrise) and object 3 (chair ) Attention & Calculation (CHOOSE ONE) Ask pt to begin with 100 & count backward by 7. Stop after 5 repeats. If pt cannot ask them to spell the word WORLD backward.: 93 Spell WORLD backwards (DLROW): 2 letters Recall Ask patient to repeat the 3 items from question #3.: object 1 (banana), object 2 (sunrise ) and object 3 (chair) Language Show patient a wristwatch & ask what it is. Repeat for pencil.: watch and pencil Ask the patient to repeat the phrase 'No ifs, ands, or buts' after you.: correct Ask the patient to 'take a piece of paper with their right hand' 'fold paper in half' 'place paper on floor': take paper in right hand, fold paper in half and place paper on floor Print the sentence 'CLOSE YOUR EYES' on a piece. If patient actually closes eyes then score.: followed written direction Give patient a blank piece of paper & ask to write a sentence. Score if it contains a noun & verb.: sentence contains subject and verb Score Score: 27 Activity of Daily Living Bathing - sponge bath, tub bath or shower: receives help in bathing only one body part (such as back or leg) Dressing - getting clothes from closets & drawers, including inner/outer garments & fasteners.: gets clothes & gets completely dressed without help Toileting - going to the 'toilet room' for urine/bowel elimination & cleaning self/arranging clothes: goes to toilet room, cleans self, arranges clothes without help Transfer: moves in & out of bed and chair without help (may use support object) (uses walker ) Continence: has occasional 'accidents' (uses brief) Feeding: feeds self without help Total Score: 0 Information obtained from: patient Using telephone: independent Traveling: dependent Shopping: independent Preparing meals: independent Housework: needs assistance Taking medicine: independent Managing money: independent PHQ-9 Over the last 2 weeks, how often have you been bothered by any of the following problems? 1. Little interest or pleasure in doing things: not at all 2. Feeling down, depressed, or hopeless: not at all 3. Trouble falling or staying asleep, or sleeping too much: not at all 4. Feeling tired or having little energy: not at all 5. Poor appetite or overeating: not at all 6. Feeling bad about yourself - or that you are a failure or have let yourself or your family down: not at all 7. Trouble concentrating on things, such as reading the newspaper or watching television: not at all 8. Moving or speaking so slowly that other people could have noticed. Or the opposite - being so fidgety or restless that you have been moving around a lot more than usual: not at all 9. Thoughts that you would be better off or of hurting yourself in some way: not at all Total score: 0 Depression Screening Interpretation: Negative Depression Screening Done: Yes 12395 - PHQ-9 Billing: Yes Source: Developed by Drs. Joshua Kline, Bre Dhaliwal, Bill Lynne and colleagues, with an educational henna from [employer]. Review of Systems Const Details: - General: Denies significant fatigue, reports good appetite. - Cardiovascular: Denies chest pain, reports pulse consistently low at 58 bpm. - Neurological: Reports occasional dizziness, denies frequent falls but is afraid of falling. - Genitourinary: Reports urinary incontinence, managed with absorbent products. All systems reviewed & are unremarkable except as noted in HPI and below Physical Exam Vital Signs: Last Vital Signs Temp 97.2 F 05/15/25 14:01 Pulse 60 05/15/25 16:33 Resp 16 05/15/25 14:01 BP 119/58 L 05/15/25 14:01 Pulse Ox 100 05/15/25 14:01 Oxygen Delivery Method Room Air 05/15/25 14:01 BMI result Body Mass Index 27.7 Const Other: Appearance: Alert. Oriented X3. No acute distress. Head: Normal external exam. Normocephalic. Atraumatic. Eyes: Pupils are equal, round, and reactive to light. Extraocular movements intact. Conjunctiva and sclera normal. Eyelids normal. Throat: Pharynx normal. Uvula midline. Moist mucous membranes. Neck: Normal inspection. Neck supple. Full range of motion. Cardiovascular: Heart rate is low, consistently 58. Normal heart rhythm. Heart sound normal. No murmurs noted. Pulses normal throughout. Respiratory: No respiratory distress. Painless inspiration. Breath sounds normal. No wheezes/rales/rhonchi noted. Chest nontender. No accessory muscle usage noted or decreased air movement noted. Back: Full range of motion noted. Skin: Skin warm and dry. Normal skin color. Normal skin turgor. Undergoing treatment for skin cancer on the forehead. No additional lesions, lacerations or signs of infection. Extremities: No lower extremity edema. Extremities exhibit normal range of motion. Neuro: Oriented. Walking with a normal steady gait with walker. At baseline. No focal deficits are noted. Moving all extremities. HEENT Other: Hearing screening Whisper test- normal whisper test Eyes Other: vision screening- passed vision screening right eye 20/30 left eye 20/30 bilateral 20/25 and passed colored Other: urinary incontinence? Neuro Other: Patient has good balance although has to hold onto walker. Was unable to perform Romberg without holding onto walker. Was able to walk-in turned test. Was able to rise from the chair from sit to stand although had to use the hand rails from the chair. Is at baseline for his neuro exam. Office Procedures Vision Screening Right Eye: 20/30 Left Eye: 20/30 Bilateral: 20/25 Color: Pass Corrected: Pass [id number] - Vision Screening Flu Questionnaire Does the patient have a severe egg allergy?: No Does the patient have severe life threatening allergies?: No Does the patient have a fever or illness today?: No Has the patient ever had Guillain-Elizabeth Syndrome?: No Has the patient ever had any past reaction to a flu shot?: No Immunizations Fluarix [id number] (PF) 45 mcg (15 mcg x 3)/0.5 mL IM syringe Performing Provider: Amisha Abraham PA-C [facility] Administered by: Ivon Woodward CMA on 05/15/25 14:17 Dose Route Admin Location Dispensed Lot Number Expiration Date NDC Deck Supervisor 0.5 mL IM Right Deltoid 0.5 mL [id number] 02/20/26 [id number] If You Can VIS Given Date VIS Provided VIS Publication Date 05/15/25 Single Vaccine 24 Eligibility Eligibility Date Funding Source Not [facility] Eligible 05/15/25 Private Assessment & Plan Assessment & Plan (1) Encounter for annual wellness exam in Medicare patient: Code(s): Z00.00 - Encounter for general adult medical examination without abnormal findings (2) Squamous cell carcinoma of skin of face: Code(s): C44.320 - Squamous cell carcinoma of skin of unspecified parts of face Plan: The patient is undergoing chemotherapy to reduce the tumor size near his left eye, with treatment ongoing for nine months. The plan includes monitoring the response to treatment and considering surgical options if necessary. (3) Prostate CA: Comment: with prostatectomy & radiation, recent hormone shot to abdomen on , 12/11/20 @ [facility] in [place], [place] due to some extra cells floating around per pt & elevated psa OF 20 Code(s): C61 - Malignant neoplasm of prostate Plan: The patient has a history of prostate cancer treated with radiation therapy, resulting in urinary incontinence. Follow-up care includes managing incontinence and monitoring for any recurrence. (4) Urinary incontinence: Code(s): R32 - Unspecified urinary incontinence Plan: The patient manages urinary incontinence with absorbent products and has inserts to aid bladder control, which require periodic adjustments. Plan Plan Patient was informed and verbally consented to the use of an ambient scribe for clinic note documentation during this visit. 1. Skin Cancer The patient is undergoing chemotherapy to reduce the tumor size near his left eye, with treatment ongoing for nine months. The plan includes monitoring the response to treatment and considering surgical options if necessary. 2. Urinary Incontinence The patient manages urinary incontinence with absorbent products and has inserts to aid bladder control, which require periodic adjustments. 3. Prostate Cancer The patient has a history of prostate cancer treated with radiation therapy, resulting in urinary incontinence. Follow-up care includes managing incontinence and monitoring for any recurrence. During the visit, we discussed the ongoing chemotherapy treatment for skin cancer and the management of urinary incontinence resulting from previous prostate cancer treatment. The patient was informed about the importance of monitoring the response to chemotherapy and considering surgical options if necessary. We also reviewed the need for periodic adjustments to the bladder inserts to manage incontinence effectively. Orders: Orders AMB Vision Screening Today Z01.00 - Encounter for examination of eyes and vision without abnormal findings Influenza [id number] Immunization Today Z23 - Encounter for immunization Medications: Changed From insulin aspart U-100 (Novolog FlexPen U-100 Insulin aspart) subcut To insulin aspart U-100 (Novolog FlexPen U-100 Insulin aspart) Insulin Lispro (insulin lispro 100 units/mL injectable solution) 7-14 units Subcutaneous Injection 3 times a day before meals << Sliding Scale Comments >>100 - 139 7 units Call if less than 18920 - 179 8 units 180 - 219 9 units 220 - 259 10 units 260 - 299 11 units 300 - 339 12 units 340 - 379 13 units 380 - 419 14 units Call if greater than 40... 1 sliding scale dose subcut USEASDIRECTD 15 mL 3RF Patient Instructions: - Continue chemotherapy sessions as scheduled and monitor for any changes in symptoms. - Use absorbent products for urinary incontinence and schedule regular follow- ups for bladder insert adjustments. - Attend all scheduled follow-up appointments and report any new or worsening symptoms to your healthcare provider. Quality Reporting (2020) Depression/Bipolar (159/160/161/177) PHQ-9: Total score: 0 Coding Level of Care Code Medicare Subsequent (G0439) Est Pt Level 4 (05892) Diagnoses Encounter for annual wellness exam in Medicare patient Z00.00 Squamous cell carcinoma of skin of face C44.320 Prostate CA C61 Urinary incontinence R32 CPT Codes Advance Care Planning - Advance Care Planning discussion: On file, no changes ([id number]) Advance Care Planning - Time spent: 1-15 minutes, on File ([id number]) Vision Screening - Vision Screenin - Vision Screening ([id number]) Additional Codes PHQ-9 - 33433 - PHQ-9 Billing: Yes ([id number]) Time Spent (min) 60 Advance Care Planning Advance Care Planning discussion: On file, no changes Who was present: Time spent: 1-15 minutes, on File Did not discuss due to Cultural/Spiritual beliefs: No
[2025-05-15 14:01] VITALS: BP 119/58; PULSE 44; RESP 16; TEMP 36.2; O2SAT 100; BMI 27.7
--- OUTSIDE RECORDS SUMMARY | 2025-05-15 16:28 | XMS_ITS | Encounter Summary ---
Demographics Address [address] [place] [address] Home Phone Preferred Language Maltese
--- OUTSIDE RECORDS SUMMARY | 2025-05-15 16:28 | XMS_ITS | Encounter Summary ---
Demographics Address [address] [place] [address] Home Phone Preferred Language Frisian Marital Status /Civil Union
[2025-05-15 16:33] VITALS: PULSE 60
== END 2025-05-15 15:10 | disposition home or self-care (01) ==
LOC: HO.HMCSH 14:00
PROVIDERS: PCP Physician Assistant Medical; Visit Provider Physician Assistant Medical
DX: Z00.00 Encounter for general adult medical examination without abnormal findings (principal); C44.320 Squamous cell carcinoma of skin of unspecified parts of face; C61 Malignant neoplasm of prostate; R32 Unspecified urinary incontinence; Z23 Encounter for immunization

== ENCOUNTER → 2025-05-15 14:00 | Outpatient (BNVA) | payer MEDICARE, SELFPAY | PROVIDERS: PCP Physician Assistant Medical; Visit Provider Physician Assistant Medical | DX: Z00.00 Encounter for general adult medical examination without abnormal findings (principal); C61 Malignant neoplasm of prostate; R32 Unspecified urinary incontinence; C44.320 Squamous cell carcinoma of skin of unspecified parts of face; Z23 Encounter for immunization | CPT/HCPCS: 90471; 90656; 96127; 99212 ==

== ENCOUNTER 2025-05-31 14:10 | Outpatient (AMB) | payer MEDICARE, SELFPAY ==
[2025-05-31 14:13] VITALS: BP 137/64; PULSE 76; RESP 16; O2SAT 99; BMI 28.0
--- NOTE | 2025-05-31 14:13 | MHC.OFFVIS ---
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 He reports that this pain is related to arthritis. In the past he was receiving intra-articular steroid injection into his shoulders with some alleviation of his pain. Because of his pain he can not sleep normally he can not do activities of daily living and plus-minus able to take care of himself but he can not function normally. He is retired individual. He tried heat application to help his pain as it does not help. He is taking pregabalin and muscle relaxants for his pain. He does not take any NSAIDs. I do not have any images of his joints available for me but I presume it is advanced arthritis. He never had physical therapy. His past medical history significant for atrial fibrillation he is chronically on Eliquis however he can stop this medication for the short procedure. 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 It is too close to his eye. He is status post prostatectomy and stress incontinence with urine. Past surgical history significant for prostatectomy and multiple hospitalizations for diabetes related problems. He denies smoking cigarettes he stopped it 60 years ago, he admits drinking rare glass of wine. He drinks 1 cup of coffee a day he denies recreational drugs. [facility] Medical History (Updated 05/31/25 @ 14:51 by Dexter Levin MD) Encounter for annual wellness exam in Medicare patient Anemia Walker as ambulation aid Chronic pain syndrome Cough Type 2 diabetes mellitus with hemoglobin A1c goal of less than 7.0% Atrial fibrillation Squamous cell carcinoma of skin of face Arthritis Persistent atrial fibrillation Acute on chronic diastolic (congestive) heart failure Urinary tract infection due to Pseudomonas aeruginosa Recurrent UTI History of prostate cancer Acute retention of urine COVID-19 vaccine series completed History of cardioversion Hx of Lyme disease Tubular adenoma of colon History of ST elevation myocardial infarction (STEMI) (HFpEF) heart failure with preserved ejection fraction Cardiac pacemaker in situ (~12/2020) Hepatorenal syndrome Symptomatic bradycardia Ventricular bigeminy Thrombocytopenia PVC (premature ventricular contraction) CHF exacerbation Bifascicular block Pancytopenia Prostate CA Myocardial infarct, old CAD (coronary artery disease) HLD (hyperlipidemia) Diabetes HTN (hypertension) Surgical History History of colonoscopy (~12/04/21) History of cervical spinal surgery History of radical prostatectomy History of left inguinal hernia repair History of total right knee replacement (TKR) History of lumbar discectomy History of cardiac pacemaker (~12/2020) Family History Father Stromal tumor of the stomach Mother Diabetes Social History Household Members: Spouse Household Members Other:: 1 Housing: House Are you a primary hearing healthcare practitioner to a significant other at home: No Do you presently have visiting nurse or other home services: Yes Alcohol intake: current Patient Tobacco Use Status: Former Tobacco user Tobacco use type: Cigarette Second Hand Smoke Exposure: No Advance Directives Date on File: 01/04/23 service: Yes Current occupational status: retired Cognitive needs: Yes (walker) Hearing needs: No Vision needs: Yes (reading/cheaters) Review of Systems Const All systems reviewed & are unremarkable except as noted in HPI and below ENT Reports Normal hearing present Neuro Reports Normal hearing present, Denies Abnormal speech present, Denies confusion and Denies Sensory deficit (Neuro) Psych Denies confusion Physical Exam Const General: no acute distress; No confusion Orientation/consciousness: patient oriented x3 and No confusion HEENT Other: Large squamous cell carcinoma tumor is observe will on top of his left eyebrow. It is covered with large Band-Aid. Eyes General: appearance normal, both eyes and all related structures Pupils: Equal, round and reactive pupils present EOM: EOMs intact bilaterally Neck Neck: Yes full ROM Chest Chest palpation & inspection: normal inspection of the chest Resp Effort & Inspection: normal respiratory effort, able to speak in complete sentences, normal respiratory pattern, no audible wheezes and no cough Cardio Jugular venous distension: no JVD GI Inspection: Yes normal to inspection Neuro General: patient oriented x3, gait normal and No confusion Cranial nerves: Yes CN's II-XII intact bilaterally, Yes Equal, round and reactive pupils present, Yes Normal hearing present and Yes Ability to bilaterally elevate shoulders present Speech: No Abnormal speech present Gait exam (Neuro): Normal gait present Motor exam (neuro): 5/5 motor strength present throughout Sensory Exam: No Sensory deficit (Neuro) Extrem Other: Limited range of motion of the shoulder joints. Osteoarthritis nodules formations are observable on the bilateral hands. General: No pedal edema Psych Speech and movement: Normal speech and movement present Affect: normal affect Attitude: cooperative Thought process: Normal thought process present Thought content: Normal thought content present Insight: Good insight present (Psych) Judgement: Good judgement present (Psych) Assessment & Plan Assessment & Plan (1) Osteoarthritis of shoulders, bilateral: Code(s): M19.011 - Primary osteoarthritis, right shoulder; M19.012 - Primary osteoarthritis, left shoulder Category: Medical (2) Osteoarthritis of hands, bilateral: Code(s): M19.041 - Primary osteoarthritis, right hand; M19.042 - Primary osteoarthritis, left hand Category: Medical (3) Bilateral shoulder pain: Code(s): M25.511 - Pain in right shoulder; M25.512 - Pain in left shoulder Category: Medical Plan I will schedule this patient for bilateral diagnostic as well as therapeutic intra-articular shoulder injection. I will minimize amounts of the steroids and use only 4 mg of dexamethasone divided between bilateral shoulders. This is the injections I can offer this patient. I will prescribe small dose of topical diclofenac once a day to help the pain of this patient. I instructed him to apply once a day to both hands before he goes to bed. Medications: New diclofenac sodium 1.5% Apply minimally amount to bilateral hands at the end of the day as needed. 40 drps topical ONCE PRN 150 mL 0RF pain, severe 30 days Coding Level of Care Code New Pt Level 3 (75730) Diagnoses Osteoarthritis of shoulders, bilateral M19.011; M19.012 Osteoarthritis of hands, bilateral M19.041; M19.042 Bilateral shoulder pain M25.511; M25.512
== END 2025-05-31 14:38 | disposition home or self-care (01) ==
LOC: HO.PMC 14:11
PROVIDERS: PCP Physician Assistant Medical; Referring Provider Physician Assistant Medical; Visit Provider Anesthesiology
DX: M19.011 Primary osteoarthritis, right shoulder (principal); M19.012 Primary osteoarthritis, left shoulder; M19.041 Primary osteoarthritis, right hand; M19.042 Primary osteoarthritis, left hand; M25.511 Pain in right shoulder; M25.512 Pain in left shoulder
CPT/HCPCS: 99204

== ENCOUNTER → 2025-05-31 14:10 | Outpatient (BNVA) | payer MEDICARE, SELFPAY | PROVIDERS: PCP Physician Assistant Medical; Referring Provider Physician Assistant Medical; Visit Provider Anesthesiology | DX: M19.011 Primary osteoarthritis, right shoulder (principal); M19.012 Primary osteoarthritis, left shoulder; M19.041 Primary osteoarthritis, right hand; M19.042 Primary osteoarthritis, left hand; M25.511 Pain in right shoulder; M25.512 Pain in left shoulder | CPT/HCPCS: 99202 ==

== ENCOUNTER 2025-07-04 06:22 | Outpatient (REF) | payer MEDICARE, SELFPAY ==
--- OUTSIDE RECORDS SUMMARY | 2025-06-30 11:30 | XMS_ITS | Encounter Summary ---
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 Jack Russell MD [address] [place] [phone] Phone: tel: fax: [facility] [address] [place] [phone] Phone: tel: fax: Referral ID Status Reason Start Date Expiration Date V isits Requested Visits Authorized [id number] Authorized 01/04/2025 01/04/2026 1 9 Encounter Details Date Type Department Care Team (Latest Contact Info) Description 06/30/2025 11:30 AM EST - 06/30/2025 11:59 PM EST Hospital Encounter [facility] [address] [place] [phone] Jack Russell MD [address] [place] [place] [phone] 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); [...] Info) Description 07/12/2025 11:00 AM EST Appointment [facility] CT Scan [address] [place] [address] 07/12/2025 1:00 PM EST Appointment [facility] CT Scan [address] [place] [address] 07/21/2025 11:30 AM EST Appointment [facility] [address] [phone] 08/11/2025 11:30 AM EST Office Visit [facility] Hematology Oncology [address] [place] [phone] Jack Russell MD [address] [place] [address] documented as of this encounter Procedures Procedure [...] K/mcL LAB HEMETOLOGY METHOD 06/30/2025 12:[address] [facility] RBC 4.00(L) 4.50 - 5.50 M/mcL LAB HEMETOLOGY METHOD 06/30/2025 12:[address] [facility] Hemoglobin 11.8(L) 13.5 - 17.5 g/dL LAB HEMETOLOGY METHOD 06/30/2025 12:[address] [facility] Hematocrit 38.3(L) 42.0 - 54.0 % LAB HEMETOLOGY METHOD 06/30/2025 12:[address] [facility] MCV 95.8 79.0 - 98.0 FL LAB HEMETOLOGY METHOD 06/30/2025 12:[address] [facility] MCH 29.5 27.0 - 32.0 pcg LAB HEMETOLOGY METHOD 06/30/2025 12:[address] [facility] MCHC 30.8(L) 32.0 - 37.0 g/dL LAB HEMETOLOGY METHOD 06/30/2025 12:[address] [facility] RDW 18.7(H) 11.0 - 15.0 % LAB HEMETOLOGY METHOD 06/30/2025 12:[address] [facility] Platelets 69(L) 130 - 400 K/mcL LAB HEMETOLOGY METHOD 06/30/2025 12:[address] [facility] Comment:previously verified by slide MPV 10.5 7.0 - 11.0 FL LAB HEMETOLOGY METHOD 06/30/2025 12:[address] [facility] NRBC 0.0 <1.0 % LAB HEMETOLOGY METHOD 06/30/2025 12:[address] [facility] NRBC Absolute 0.00 <0.10 K/mcL LAB HEMETOLOGY METHOD 06/30/2025 12:[address] [facility] Neutrophils Relative 65.4 % LAB HEMETOLOGY METHOD 06/30/2025 12:[address] [facility] Lymphocytes Relative 23.1 % LAB HEMETOLOGY METHOD 06/30/2025 12:[address] [facility] Monocytes Relative 7.5 % LAB HEMETOLOGY METHOD 06/30/2025 12:[address] [facility] Eosinophils Relative 2.8 % LAB HEMETOLOGY METHOD 06/30/2025 12:[address] [facility] Basophils Relative 0.5 % LAB HEMETOLOGY METHOD 06/30/2025 12:[address] [facility] Immature Granulocytes Relative 0.7 % LAB HEMETOLOGY METHOD 06/30/2025 12:[address] [facility] Neutrophils Absolute 2.78 1.50 - 7.00 K/mcL LAB HEMETOLOGY METHOD 06/30/2025 12:[address] [facility] Lymphocytes Absolute 0.98(L) 1.00 - 5.00 K/mcL LAB HEMETOLOGY METHOD 06/30/2025 12:[address] [facility] Monocytes Absolute 0.32 0.20 - 1.00 K/mcL LAB HEMETOLOGY METHOD 06/30/2025 12:[address] [facility] Eosinophils Absolute 0.12 0.00 - 0.50 K/mcL LAB HEMETOLOGY METHOD 06/30/2025 12:[address] [facility] Basophils Absolute 0.02 0.00 - 0.20 K/mcL LAB HEMETOLOGY METHOD 06/30/2025 12:[address] [facility] Immature Granulocytes Absolute 0.03 0.00 - 0.03 K/mcL LAB HEMETOLOGY METHOD 06/30/2025 12:[address] [facility] Blood Venous blood specimen / Unknown Venipuncture / Unknown 06/30/2025 12:09 PM EST 06/30/2025 12:35 PM EST Subrambk Russell MD LAB BLOOD ORDERABLE S Final Result Performing Organization Address City/[facility]/ZIP Co de Phone Number [facility] [address] [place] [address], [place] [phone] * Magnesium (06/30/2025 12:09 PM EST) [facility] Magnesium 2.0 1.9 - 2.6 mg/dL LAB CHEMISTRY METHOD 06/30/2025 1:[address] [facility] Blood Venous blood specimen / Unknown Venipuncture / Unknown 06/30/2025 12:09 PM EST 06/30/2025 12:35 PM EST Subketan Russell MD LAB BLOOD ORDERABLE S Final Result Performing Organization Address [facility]/ZIP Co de Phone Number [facility] [address] [place] [address], [place] [phone] * (ABNORMAL) Comprehensive metabolic panel (06/30/2025 12:09 PM EST) [facility] Sodium 140 133 - 145 mmol/L LAB CHEMISTRY METHOD 06/30/2025 1:[address] [facility] Potassium 4.5 3.5 - 5.5 mmol/L LAB CHEMISTRY METHOD 06/30/2025 1:[address] [facility] Chloride 107 96 - 110 mmol/L LAB CHEMISTRY METHOD 06/30/2025 1:[address] [facility] CO2 29 21 - 32 mmol/L LAB CHEMISTRY METHOD 06/30/2025 1:[address] [facility] Anion Gap 4 3 - 11 LAB CHEMISTRY METHOD 06/30/2025 1:[address] [facility] Glucose 237(H) 70 - 100 mg/dL LAB CHEMISTRY METHOD 06/30/2025 1:[address] [facility] BUN 24 5 - 25 mg/dL LAB CHEMISTRY METHOD 06/30/2025 1:[address] [facility] Creatinine 1.10 0.70 - 1.30 mg/dL LAB CHEMISTRY METHOD 06/30/2025 1:[address] [facility] eGFR 65 >=60 mL/min/1. 73m2 LAB CHEMISTRY METHOD 06/30/2025 1:[address] [facility] Comment:Calculation based on the Chronic Kidney Disease Epidemiology Collaboration (CKD-EPI) equation refit without adjustment for race. BUN/Creatinine Ratio 21.8 LAB CHEMISTRY METHOD 06/30/2025 1:[address] [facility] Calcium 9.1 8.5 - 10.5 mg/dL LAB CHEMISTRY METHOD 06/30/2025 1:[address] [facility] AST (SGOT) 66(H) 10 - 42 unit/L LAB CHEMISTRY METHOD 06/30/2025 1:[address] [facility] ALT (SGPT) 93(H) 10 - 60 unit/L LAB CHEMISTRY METHOD 06/30/2025 1:[address] [facility] Alkaline Phosphatase 205(H) 42 - 121 unit/L LAB CHEMISTRY METHOD 06/30/2025 1:[address] [facility] Total Protein 6.7 6.0 - 8.0 g/dL LAB CHEMISTRY METHOD 06/30/2025 1:[address] [facility] Albumin 3.2 3.2 - 5.0 g/dL LAB CHEMISTRY METHOD 06/30/2025 1:[address] [facility] Total Bilirubin 0.5 0.0 - 1.4 mg/dL LAB CHEMISTRY METHOD 06/30/2025 1:[address] [facility] Blood Venous blood specimen / Unknown Venipuncture / Unknown 06/30/2025 12:09 PM EST 06/30/2025 12:35 PM EST Jack Russell MD LAB BLOOD ORDERABLE S Final Result Performing Organization Address [facility]/ZIP Co de Phone Number [facility] [address] [place] [address], * Thyroid stimulating hormone (06/30/2025 12:09 PM EST) TSH 2.47 0.40 - 4.00 mcIU/mL LAB CHEMISTRY METHOD 06/30/2025 2:07 PM EST [facility] Blood Venous blood specimen / Unknown Venipuncture / Unknown 06/30/2025 12:09 PM EST 06/30/2025 12:35 PM EST Jack Russell MD LAB BLOOD ORDERABLE S Final Result Performing Organization Address [facility]/ZIP Co de Phone Number [facility] [address] [place] [address], documented in this encounter Visit Diagnoses Diagnosis [...] 06/30/2025 documented in this encounter Care Teams Cover Stitch Machine Operator Relationship Specialty Start Date End Date Jewel Rebolledo MD [address] [facility] ROLAND Coats PCP - General 09/25/22 documented as of this encounter
--- NOTE | ~2025-07-04 | FL_ITS ---
EXAMINATION: FLUOROSCOPY GUIDANCE FOR NEEDLE PLACEMENT CLINICAL INFORMATION: M19.011 - Primary osteoarthritis, right shoulder COMPARISON: None available. TECHNIQUE: Fluoroscopy guidance provided for pain management procedure. FINDINGS: Images demonstrate needle placement and contrast injection over the bilateral shoulder joints. FLUOROSCOPY TIME: 23 seconds DOSE AREA PRODUCT: 155 mgy/meter squared. 4 submitted fluoroscopic images. FL/FL guidance in treatment room IMPRESSION: Fluoroscopy guidance for pain management procedure. Electronically signed by: Mena Hernandez MD 07/04/2025 02:37 PM JENY
--- OUTSIDE RECORDS SUMMARY | 2025-07-04 06:24 | XMS_ITS | Encounter Summary ---
Author Organization [facility] [place] [address] Care Team Providers Care Trade Manager Name Role Phone Jewel Rebolledo MD Primary Care Provider [phone] Encounter Details Date Type Department Care Team (Latest Contact Info) Description 06/28/2024 Lab Requisition [facility] - Main Lab [address] [place] [phone] Lamonte Sagastume MD [address] [place] [phone] Type 2 diabetes mellitus without complications (CMS/HCC [...] AM EDT documented as of this encounter Plan of Treatment Upcoming Encounters Date Type Department Care Team (Late st Contact Info) Description 07/12/2025 11:00 AM EST Appointment [facility] CT Scan [address] [place] [phone] 07/12/2025 1:00 PM EST Appointment [facility] CT Scan [address] [place] [address] 07/21/2025 11:30 AM EST Appointment [facility] [address] [phone] 08/11/2025 11:30 AM EST Office Visit [facility] Hematology Oncology [address] [place] [phone] Jack Russell MD [address] [place] [address] documented as of this encounter Procedures Procedure Name Priority Date/Time Associated Diagnosis Comments COMPLETE BLOOD COUNT Routine 06/28/2024 6:01 AM EST Type 2 diabetes mellitus without complications ([facility]/HCC) PHOSPHORUS Routine 06/28/2024 6:01 AM EST Type 2 diabetes mellitus without complications (CMS/HCC) MAGNESIUM Routine 06/28/2024 6:01 AM EST Type 2 diabetes mellitus without complications ([facility]/HCC) COMPREHENSIVE METABOLIC PANEL Routine 06/28/2024 6:01 AM EST Type 2 diabetes mellitus without complications ([facility]/HCC) documented in this encounter Results * Magnesium (06/28/2024 6:01 AM EST) Magnesium 2.3 1.9 - 2.6 mg/dL LAB CHEMISTRY METHOD 06/28/2024 2:41 PM EST [facility] Blood Venous blood specimen / Unknown Venipuncture / Unknown 06/28/2024 6:01 AM EST 06/28/2024 11:11 AM EST us Lamonte Sagastume MD LAB BLOOD ORDERABLES Final Res ult [facility] [address] [place] [address], * Phosphorus (06/28/2024 6:01 AM EST) Phosphorus 2.9 2.5 - 4.5 mg/dL LAB CHEMISTRY METHOD 06/28/2024 2:41 PM [facility] Blood Venous blood specimen / Unknown Venipuncture / Unknown 06/28/2024 6:01 AM EST 06/28/2024 11:11 AM EST us Lamonte Sagastume MD LAB BLOOD ORDERABLES Final Res ult [facility] [address] [place] [address], * (ABNORMAL) Complete blood count (06/28/2024 6:01 AM EST) Pathologist [facility] WBC 5.4 4.8 - 10.8 K/mcL LAB HEMETOLOGY METHOD 06/28/2024 12:41 PM [facility] RBC 3.60(L) 4.50 - 5.50 M/[facility] LAB HEMETOLOGY METHOD 06/28/2024 12:41 PM [facility] Hemoglobin 9.7(L) 13.5 - 17.5 g/dL LAB HEMETOLOGY METHOD 06/28/2024 12:41 PM [facility] Hematocrit 31.9(L) 42.0 - 54.0 % LAB HEMETOLOGY METHOD 06/28/2024 12:41 PM [facility] MCV 89.9 79.0 - 98.0 FL LAB HEMETOLOGY METHOD 06/28/2024 12:41 PM [facility] MCH 27.3 27.0 - 32.0 pcg LAB HEMETOLOGY METHOD 06/28/2024 12:41 PM [facility] MCHC 30.4(L) 32.0 - 37.0 g/dL LAB HEMETOLOGY METHOD 06/28/2024 12:41 PM [facility] RDW 18.2(H) 11.0 - 15.0 % LAB HEMETOLOGY METHOD 06/28/2024 12:41 PM [facility] Platelets 164 130 - 400 K/mcL LAB HEMETOLOGY METHOD 06/28/2024 12:41 PM [facility] MPV 10.8 7.0 - 11.0 FL LAB HEMETOLOGY METHOD 06/28/2024 12:41 PM [facility] NRBC 0.0 <1.0 % LAB HEMETOLOGY METHOD 06/28/2024 12:41 PM [facility] NRBC Absolute 0.00 <0.10 K/mcL LAB HEMETOLOGY METHOD 06/28/2024 12:41 PM [facility] Blood Venous blood specimen / Unknown Venipuncture / Unknown 06/28/2024 6:01 AM EST 06/28/2024 11:11 AM EST us Lamonte Sagastume MD LAB BLOOD ORDERABLES Final Res ult [facility] [address] [place] [address], [place] [phone] * (ABNORMAL) Comprehensive metabolic panel (06/28/2024 6:01 AM EST) Sodium 138 133 - 145 mmol/L LAB CHEMISTRY METHOD 06/28/2024 2:45 PM [facility] Potassium 4.1 3.5 - 5.5 mmol/L LAB CHEMISTRY METHOD 06/28/2024 2:45 PM [facility] Chloride 102 96 - 110 mmol/L LAB CHEMISTRY METHOD 06/28/2024 2:45 PM [facility] CO2 33(H) 21 - 32 mmol/L LAB CHEMISTRY METHOD 06/28/2024 2:45 PM [facility] Anion Gap 3 3 - 11 LAB CHEMISTRY METHOD 06/28/2024 2:45 PM [facility] Glucose 213(H) 70 - 100 mg/dL LAB CHEMISTRY METHOD 06/28/2024 2:45 PM [facility] BUN 47(H) 5 - 25 mg/dL LAB CHEMISTRY METHOD 06/28/2024 2:45 PM [facility] Creatinine 1.02 0.70 - 1.30 mg/dL LAB CHEMISTRY METHOD 06/28/2024 2:45 PM [facility] eGFR 72 >=60 mL/min/1. 73m2 LAB CHEMISTRY METHOD 06/28/2024 2:45 PM [facility] Comment:Calculation based on the Chronic Kidney Disease Epidemiology Collaboration (CKD-EPI) equation refit without adjustment for race. BUN/Creatinine Ratio 46.1 LAB CHEMISTRY METHOD 06/28/2024 2:45 PM [facility] Calcium 8.5 8.5 - 10.5 mg/dL LAB CHEMISTRY METHOD 06/28/2024 2:45 PM [facility] AST (SGOT) 25 10 - 42 unit/L LAB CHEMISTRY METHOD 06/28/2024 2:45 PM [facility] ALT (SGPT) 47 10 - 60 unit/L LAB CHEMISTRY METHOD 06/28/2024 2:45 PM [facility] Alkaline Phosphatase 150(H) 42 - 121 unit/L LAB CHEMISTRY METHOD 06/28/2024 2:45 PM [facility] Total Protein 5.5(L) 6.0 - 8.0 g/dL LAB CHEMISTRY METHOD 06/28/2024 2:45 PM [facility] Albumin 2.7(L) 3.2 - 5.0 g/dL LAB CHEMISTRY METHOD 06/28/2024 2:45 PM [facility] Total Bilirubin 0.3 0.0 - 1.4 mg/dL LAB CHEMISTRY METHOD 06/28/2024 2:45 PM EST [facility] Blood Venous blood specimen / Unknown Venipuncture / Unknown 06/28/2024 6:01 AM EST 06/28/2024 11:11 AM EST us Lamonte Sagastume MD LAB BLOOD ORDERABLES Final Res ult [facility] [address] [place] [address], documented in this encounter Visit Diagnoses Diagnosis Type 2 diabetes mellitus without complications (CMS/HCC V24, CMS/HCC V28) documented in this encounter Care Teams Trade Manager Relationship Specialty Start Date End Date Jewel Rebolledo MD [address] [place] [address] PCP - General 09/25/22 documented as of this encounter
--- OUTSIDE RECORDS SUMMARY | 2025-07-04 06:24 | XMS_ITS | Encounter Summary ---
Author Organization [facility] Address [address] [place] [address] Care Team Providers Care Sustainable Landscape Architect Name Role Phone Pcp, No Primary Care Provider Unavailabl e Encounter Details Date Type Department Care Team (Late st Contact Info) Description 09/29/2022 Scanned Document [facility] Urologic Surgery [address] [place] [address] Sreekanth Lobato MD Social History [...] on filedocumented in this encounter Care Teams Sustainable Landscape Architect Relationship Specialty Start Date End Date Pcp, No PCP - General General Medicine 08/19/23 documented as of this encounter
--- OUTSIDE RECORDS SUMMARY | 2025-07-04 06:24 | XMS_ITS | Encounter Summary ---
Author Organization [facility] [place] [address] Care Team Providers Care Tractor Sweeper Operator Name Role Phone Jewel Rebolledo MD Primary Care Provider Encounter Details Date Type Department Care Team (Late Contact Info) Description 01/09/2025 Lab Requisition [facility] - Main Lab [address] [place] [address] Sreekanth Lobato MD [address] [facility] [address] [place] [address] Intrinsic sphincter deficiency (ISD); Urinary [...] Department Care Team (Late Contact Info) Description 07/12/2025 11:00 AM EST Appointment [facility] CT Scan [address] [place] [address] 07/12/2025 1:00 PM EST Appointment [facility] CT Scan [address] [place] [phone] 07/21/2025 11:30 AM EST Appointment [facility] [address] [address] 08/11/2025 11:30 AM EST Office Visit [facility] Hematology Oncology [address] [place] [address] Jack Russell MD [address] [place] [phone] documented as of this encounter Procedures Procedure [...] MICROBIOLOGY - GENERA L ORDERABLES Final Result [facility] [address] [place] [address], documented in this encounter Visit Diagnoses Diagnosis Intrinsic sphincter deficiency (ISD) Urinary tract infection, site not specified documented in this encounter Care Teams Tractor Sweeper Operator Relationship Specialty Start Date End Date Jewel Rebolledo MD [address] [place] [address] PCP - General 09/25/22 documented as of this encounter
--- OUTSIDE RECORDS SUMMARY | 2025-07-04 06:25 | XMS_ITS | Encounter Summary ---
Author Organization [facility] Address [address] [place] [address] Phone Care Team Providers Care Transition Advisor Name Role Phone Jewel Rebolledo MD Primary Care Provider [phone] Pcp, Not Required Unavailable Unavailable Wade Seo DO, Justine Unavailable [phone] Luis Aly MD Unavailable [phone] Hodan Rodriguez MD, MPH Unavailable [phone] Encounter Details Date Type Department Care Team (Late st Contact Info) Description 04/13/2025 Procedure [facility], [facility] [place], [place] [address] [facility], Floor [address] [place] [address] Social History Tobacco Use Types Packs/Day Years [...] filedocumented in this encounter Care Teams Transition Advisor Relationship Specialty Start Date End Date Jewel Rebolledo MD [address] [place] [address] PCP - General Internal Medicine 12/08/24 Pcp, Not Required [address] [place] [address] 12/08/24 Serenity Olvera DO [address] [place] [address] [place] [address] [email or web address] Medical Oncology 12/26/24 Luis Aly MD [address] [place] [address] Medical Oncology 12/26/24 Hodan Rodriguez MD, MPH [address] [place] [phone] [email or web address] 12/26/24 documented as of this encounter Additional Source Comments The information contained in this document represents components of the legal health record. It is not the complete legal health record.[facility]
--- OUTSIDE RECORDS SUMMARY | 2025-07-04 06:25 | XMS_ITS | Data Portability ---
Author Organization [facility], [facility] Address [address] [place] [address] Assessment Encounter Date Assessment Date Assessment LastModified by Organization Details LastModified Time 11/26/2023 11/26/2023 chief complaint: Left ankle deformity HPI: Patient is an 86-year-old male who presents today for Follow-up on his chronic left ankle deformity. I performed a left septic ankle irrigation and debridement in 06/10/22. He healed from that and has done reasonably well for his ankle. Prior to his septic ankle he had chronic left hindfoot problems. He initially was seen by Dr. Morton and use. That fusion was revised by Dr. Rowe. He appeared to healed effusion but has persistent pain in the ankle. He has a flat foot valgus alignment. He previously saw Dr. Field and was to follow-up with her, but has not. She prescribed an AFO to help with his alignment. He is not wearing that today. He is complaining of pain in the ankle and in the leg. He states that he does not want to do another operation. He has not had any recurrence of infection in the ankle or foot. Past family, medical, social history and review of systems has been reviewed, updated and is located in the patient s chart. Examination:The patient is well appearing and in no apparent distress. Alert and oriented x3. Seated in a wheelchair. Left ankle with appropriately healing surgical incision, no surrounding erythema or drainage. No evidence of acute infectious process today. No dehiscence or pus able to be expressed. EHL/FHL/18/GS intact, sensation intact in all toes with mild baseline neuropathy. He has a valgus alignment of the hindfoot. He does not have braces with him today. X-ray: Left ankle series shows left hindfoot fusions and ankle joint space narrowing consistent with osteoarthritis. There is no loosening of hardware. He has a valgus alignment of the hindfoot. No significant change [id number]. Impression: Chronic left hindfoot deformity post-fusion Plan: Discussed findings with the patient. I reviewed the longer history of his ankle. Prior to the infection, he was seeing Dr. Field in the office. He has previously had surgery done by Dr. Morton and Dr. Rowe. He had an AFO brace ordered. He Is not currently using the brace. He would like to follow-up in with Dr. Field to review his chronic Hindfoot problems. He understands there may not be a simple solution for his issues. He stated that he does not want to do more surgery. [facility] speech recognition traffic survey technician software was used to create portions of this document. An attempt at proofreading has been made to minimize errors. Please call for corrections. [email or web address] Not available 11/26/2023 12:33:13 Plan of Treatment Reminders Order Date Submit Date Provider Last Modified By Organization Details Last Modified Time Details Appointments None recorded. Lab None recorded. Referral None recorded. Procedures None recorded. Surgeries None recorded. Imaging XR, ankle, 3 or more view - RM 101--3V ANKLE WB, 2V FOOT WB 2023 024 [facility], [address], [address], [place], [address], 4 15:13:02 XR, foot, 2 view 2023 024 [facility], [address], [address], [place], [address], 4 15:13:02 XR, shoulder, 2 or more view - Recheck bilateral shoulders , room 306 2023 024 [facility], [address], [address], [place], [address], 4 12:35:38 XR, foot, 3 or more view - 309 3V L FOOT 2023 024 [facility], [address], [address], [place], [address], 4 09:56:01 XR, ankle, 3 or more view - 309 -3V L ANKLE 2023 024 [facility], [address], [address], [place], [address], 4 09:56:01 Medication Orders None recorded. Patient TargetsNo targets recorded. Patient InstructionsNo instructions recorded. Reason for Referral None Reported. Results Created Date Observation Date Name Description Value Unit Range Abnormal Flag Note LastModifiedBy Organization Detail LastModifiedTime 04/22/2004/09/2022 delphine blount/marian orellana tic resul t No observ ation record ed. [email or web address] Not Available 03/26 23:31:59 Result Notes None recorded. 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 Problem Code: M19.272; Problem Code Type: ICD-10; Status: 'A'; Not Available [facility] 4 10:56:23 Acquired pes planus of left foot 715261118804 108 Active 2015 Problem Code: M21.42; Problem Code Type: ICD-10; Status: 'A'; Not Available [facility] 4 10:56:24 Muscle contractu re 08485043 Active 2015 Problem Code: M62.472; Problem Code Type: ICD-10; Status: 'A'; Not Available [facility] 4 10:56:24 Knee joint prosthesi s present 305749024687 Active 2015 Problem Code: Z96.653; Problem Code Type: ICD-10; Status: 'A'; Not Available [facility] 4 10:56:24 Follow-up orthopedi c assessmen t 852600580 Active 2015 Problem Code: Z47.89; Problem Code Type: ICD-10; Status: 'A'; Not Available [facility] 4 10:56:24 Pain in left foot 650287600268 107 Active 2023 TRISTA garland [place] - [facility] 4 10:53:13 Bilateral shoulder joint pain 143124790174 73812 Active 2023 HERMELINDO garland [place] - [facility] 12:17:16 Problem Notes None recorded. Medical Equipment None Reported. Allergies No known drug allergies Medications Name Sig Start Date Stop Date Status Note LastModified by Organization Details LastModified Time amoxicillin 500 mg capsule TAKE FOUR CAPS ONE HOUR BEFORE DENTAL APPOINTME NT BY MOUTH active Not Available Not Available No t Available atorvastati n 40 mg tablet active Not Available Not Available Not Available prednisone 10 mg tablet PLEASE SEE ATTACHED FOR DETAILED DIRECTION S 11/25 completed Not Available Not Available Not Available doxycycline hyclate 100 mg capsule TAKE 1 CAPSULE BY MOUTH TWICE A DAY FOR 10 DAYS 11/25 completed Not Available Not Available Not Available cefuroxime axetil 250 mg tablet TAKE 1 TABLET BY MOUTH EVERY 12 HOURS 11/25 completed Not Available Not Available Not Available torsemide 20 mg tablet TAKE 1 TABLET BY MOUTH DAILY 11/25 completed Not Available Not Available Not Available fluconazole 150 mg tablet active Not Available Not Available Not Available phenazopyri dine 200 mg tablet TAKE 1 TABLET BY MOUTH 3 TIMES DAILY WITH MEALS-INS WONT COVER 11/25 completed Not Available Not Available Not Available isosorbide mononitrate ER 30 mg tablet,exte nded release 24 hr TAKE 1 TABLET BY MOUTH EVERY DAY 11/25 completed Not Available Not Available Not Available levofloxaci n 250 mg tablet TAKE 1 TABLET BY MOUTH EVERY DAY 11/25 completed Not Available Not Available Not Available ciprofloxac in 500 mg tablet TAKE 1 TABLET BY MOUTH EVERY 12 HOURS FOR 7 DAYS 11/25 completed Not Available Not Available Not Available sulfamethox azole 800 mg-trimetho prim 160 mg tablet TAKE 1 TABLET BY MOUTH TWICE A DAY active Not Available Not Available No t Available olanzapine 2.5 mg tablet TAKE 1 TABLET BY MOUTH DAILY AT BEDTIME NEEDED FOR INSOMNIA active Not Available Not Available No t Available oxycodone 15 mg tablet active Not Available Not Available Not Available methenamine hippurate 1 gram tablet 11/25 completed Not Available Not Available Not Available linezolid 600 mg tablet TAKE 1 TABLET BY MOUTH TWICE A DAY 11/25 completed Not Available Not Available Not Available hydrocortis one 1 % topical cream APPLY TOPICALLY 2 TIMES A DAY NEEDED FOR RASH FOR 2 WEEKS 11/25 completed Not Available Not Available Not Available cephalexin 500 mg capsule TAKE 1 CAPSULE BY MOUTH TWICE A DAY 11/25 completed Not Available Not Available Not Available pseudoephed rine-guaife nesin ER 80-700 mg tablet,exte nded release as directed 1 - 2 TABS PO Q 4 HRS PRN PAIN. DO NOT DRIVE ON THIS MEDICATIO N. MUST LAST 5 DAYS 11/26 completed Statu s: 'Disc ontin ued'; Not Available Not Available Not Available clotrimazol e-betametha sone 1 %-0.05 % topical cream APPLY TO AFFECTED AREA TWICE A DAY IN THE MORNING AND IN THE EVENING 11/25 completed Not Available Not Available Not Available losartan 25 mg tablet active Not Available Not Available No t Available metoprolol tartrate 50 mg tablet TAKE 1 TABLET BY MOUTH TWICE A DAY active Not Available Not Available No t Available ammonium lactate 12 % topical cream 1 APPLICATI ON EXTERNALL Y TWICE A DAY 30 DAYS 11/25 completed Not Available Not Available Not Available furosemide 20 mg tablet TAKE 1 TABLET BY MOUTH DAILY FOR EDEMA 11/25 completed Not Available Not Available Not Available metoprolol succinate ER 25 mg tablet,exte nded release 24 hr active Not Available Not Available Not Available cefuroxime axetil 500 mg tablet TAKE 1 TABLET BY MOUTH TWICE A DAY FOR 7 DAYS 11/25 completed Not Available Not Available Not Available levofloxaci n 500 mg tablet TAKE 1 TABLETS DAILY FOR 5 DAYS 11/25 completed Not Available Not Available Not Available zolpidem 10 mg tablet TAKE 1 TABLET BY MOUTH AT BEDTIME NEEDED active Not Available Not Available No t Available clotrimazol e 1 % topical cream APPLY TOPICALLY 2 TIMES A DAY FOR 2 WEEKS 11/25 completed Not Available Not Available Not Available doxycycline hyclate 100 mg tablet 11/25 completed Not Available Not Available Not Available amoxicillin 875 mg-potassiu m clavulanate 125 mg tablet TAKE 1 TABLET BY MOUTH TWICE A DAY active Not Available Not Available No t Available oxycodone 5 mg tablet TAKE 1 TO 2 TABLETS BY MOUTH EVERY 4 HOURS NEEDED FOR PAIN 11/25 completed Not Available Not Available Not Available pregabalin 150 mg capsule TAKE 1 CAPSULE BY MOUTH TWICE A DAY active Not Available Not Available No t Available Symbicort 80 mcg-4.5 mcg/actuati on HFA aerosol inhaler 11/25 completed Not Available Not Available Not Available oxycodone 10 mg tablet TAKE 1 TABLET BY MOUTH EVERY 4 HOURS NEEDED active Not Available Not Available No t Available diclofenac 1 % topical gel APPLY TO AFFECTED AREA(S) 1-2 TIMES DAILY 11/25 completed Not Available Not Available Not Available Multaq 400 mg tablet 11/25 completed Not Available Not Available Not Available Combivent Respimat 20 mcg-100 mcg/actuati on solution for inhalation active Not Available Not Available N ot Available Eliquis 5 mg tablet active Not Available Not Available No t Available FreeStyle Rob 2 Sensor kit CHECK BLOOD SUGAR 3 TIMES A DAY AND NEEDED 11/25 completed Not Available Not Available Not Available Vitals Date Recorded Body height Body mass index (BMI) Body weight Provider Name and Address Organization Details Last Updated DateTime 11/26/2023 170.18 cm 25.8 kg/m2 94859.74 g TRISTA OCASIO [facility] 11/26/2023 11:03:06 Date Recorded Body height Body mass index (BMI) Body weight Provider Name and Address Organization Details Last Updated DateTime 12/28/2023 170.18 cm 25.8 kg/m2 90111.74 g HERMELINDO ALEXANDER [facility] 12/28/2023 12:16:39 Date Recorded Body height Body mass index (BMI) Body weight Provider Name and Address Organization Details Last Updated DateTime 01/01/2024 170.18 cm 25.8 kg/m2 79995.74 g MIGDALIA Wallace [place] [facility] 01/01/2024 14:54:46 Social History None recorded. Functional Status None recorded. Mental Status None recorded. Family History Nothing Reported. Medical History No medical history recorded. Past Encounters Encounter ID Performer Location Encounter Start Date Encounter Closed Date Diagnosis/Indication Diagnosis SNOMED-CT Code Diagnosis ICD10 Code Diagnosis IMO Codes Diagnosis Note [id number] [facility] [address] [facility] [place] [address] 11/26/2023 10:38:57 12/17/2023 09:56:01 Instability of joint of left ankle 0878727287 004814 M25.372 Pain in left foot 249288 3488 70260 M79.672 Acquired p es planus of left foot 2018054093 34300 M21.42 [id number] CARLOS Singleton [address] [place] [address] 12/28/2023 11:59:59 01/21/2024 15:03:51 Bilateral shoulder joint pain [id number] 3932140 M25.283 [id number] MD Amy Virk [address] [facility] [place] [address] 01/01/2024 14:44:47 01/25/2024 14:33:53 Ankle pain 896480721 M25.579 M25.572 Arthritis of left ankle 6679820882 799874 M13.872 Health Concerns Section Related Observation LastModified by Organization Detai ls LastModified Time None Recorded Concern Status LastModified by Organization Details LastModified Time None Recorded Advance Directives Directive None Recorded Payers Insurance Date Sequence Insurance Name Policy Number Policy Ozuna Covered Member ID Ozuna Member ID Guarantor Name 01/01/2024 1 [place] [employer] Jewel Colbert Parent [id number] Jewel Colbert Parent 01/26/2024 2 [place] [id number] Jewel Colbert Parent [id number] Jewel Colbert Parent Notes Date Note Type Note Provider Name and Address Organization Details Recorded Time 12/28/2023 text/html I am seeing the patient today under the supervision of Dr. Means who was available but who did not see the patient. History is taken from the patient HPI: Patient here today pleasant 88-year-old male walker dependent concerning severe bilateral shoulder pain. He has had this for many years and it has gradually become worse. He has irreparable rotator cuff tears which go back prior to 2014. He is an insulin-dependent diabetic as well. His shoulder pain has worsened over the years. He has to significantly load bear on his arms with his walker in order to ambulate. He has numerous other orthopedic issues which were not addressed today. Currently on oxycodone from his primary care Dr. Rebolledo which she tells me used to be helpful but unfortunately is not working very well anymore. Patient complains of right shoulder pain worse than left shoulder pain. Patient indicates to me he is unable to elevate his right arm at all and can barely elevate his left arm. He tells me his pain keeps him up all night long. Past family, medical, social history and review of systems has been reviewed, updated and is located in the patient s chart. EXAMINATION: Patient has absolutely no elevation of his right arm. Passively I can take it to about 90 degrees but he has too much pain to go further. He has notable crepitus and grinding in his right shoulder joint. He is unable to resist me to resisted maneuvers of supra or infraspinatus testing. He did not tolerate midrange manipulations. He complains of neck irritability and pain with range of motion. He had full strength resisted testing of deltoid biceps and triceps strength. He has finger abduction and adduction intact. He has noted to have a little bit of wasting of his thenar eminence on his right hand. Left shoulder forward elevation is better than his right shoulder. He can go to about 110 on his own and I can passively take him to about 150 degrees. He fires his cuff with provocative weakness and pain to testing of the infraspinatus and supraspinatus on the left as well. He did not tolerate midrange manipulations. He has significant subacromial crepitus and pain with passive range of motion as well. He is alert oriented and appropriate. He has a depressed affect today and complains significantly of the pain he is feeling. X-RAYS: Were ordered, obtained and independently reviewed today in our office. There were 4 views of the bilateral shoulders performed in the findings are as follows: Right shoulder shows end-stage glenohumeral arthritis with superior migration of the head of the humerus and a very thinned acromion as a result of the superior migration. He has degenerative changes noted at the footprint of the supraspinatus as well as significant sclerosis of his head of his humerus. Left shoulder shows end-stage glenohumeral arthritis with superior migration as well but not quite as severe as the right. He has degenerative changes of the greater tuberosity on his left shoulder as well. DIAGNOSIS: End-stage right shoulder glenohumeral arthritis, rotator cuff arthropathy End-stage left shoulder glenohumeral arthritis and rotator cuff arthropathy. MEDICAL DECISION MAKING: The patient's pain generator is his chronic bilateral rotator cuff tears and end-stage glenohumeral arthritis. Unfortunately from an orthopedic perspective he is not a surgical candidate due to his advanced age, need to load bear on his extremities and the loss of bone stock of his right acromion. Patient presented to Dr. Balderas concerning a possible geniculate artery embolization procedure to his shoulders. I will communicate with Dr. Balderas my findings today. Patient indicates to me that his [facility] nurse suggested him possibly being on OxyContin. I would urged the patient to have a conversation with Dr. Rebolledo pertaining to this. Patient is in need of significant pain control since surgical options are not a possibility. Unfortunately I am not able to provide chronic pain management services from my office. Today's visit involved examining the patient, reviewing the history, reviewing the radiographic studies, counseling the patient regarding treatment options, and the administrative tasks including placing orders, preparing patient information and home handouts and preparing the visit note. This note was generated with [facility] speech recognition traffic survey technician dictation software. Please excuse any errors that may have been overlooked during review of this note. Sometimes, these errors may affect the content or meaning of a given sentence. Please call for corrections. Josefina Hollis PA-C [address] [place] [address], [place], [address], [facility] - [facility] 12/28/2023 13:05:17 01/01/2024 text/html CHIEF COMPLAINT: Follow-up left ankle pain and deformity HISTORY OF PRESENT ILLNESS: Patient presents today for follow-up evaluation of his ongoing left ankle pain and deformity. He has a complicated past surgical history involving the left ankle and hindfoot. He is status post left talonavicular and subtalar arthrodes[place] [address] Acuna. 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 He is now status post left revision triple arthrodesis with deltoid repair by Dr. Rowe in 2017. Unfortunately, he was at last visit noted to have an undercorrected hindfoot which had resulted in substantial worsening valgus tilt of the ankle. The patient was adamantly opposed to surgery. We elected to pursue conservative treatment in the form of bracing. I prescribed him a posterior shell hinged AFO brace. Although the patient did get the brace made, he reports that after having the brace for a couple weeks he developed severe bilateral lower extremity swelling and was unable to fit in the brace. He has really not wear the brace at all. His main complaint today is similar to previous pain at the anterior and lateral aspect of the ankle joint. He is also having painful swelling of both limbs. He does have a history of some type of vascular intervention on the right side. Pertinent past medical history includes diabetes, peripheral neuropathy, and a pacemaker placement. He is currently on Eliquis. Past family, medical, social history and review of systems has been reviewed, updated and is located in the patient's chart. PHYSICAL EXAM:Patient in no acute distress, alert and oriented. Mood and affect appropriateOn standing examination there is severe, increased valgus of the hindfoot on the left. There is notable valgus through both the ankle and the subtalar joint, as well as abduction now union of the talonavicular jointThere is tenderness to palpation anteriorly at the tibiotalar jointThere is no pain with passive range of motion of the ankleHis ankle valgus is not passively reducibleThere is diffusely decreased sensation to the mid tibia. Sensory losses in stocking-glove pattern consistent with peripheral neuropathyThere is extremely weak plantarflexion and a palpably overlengthened AchillesToes are warm and well-perfused with palpable DP and PT pulses X-rays ordered, obtained and reviewed at [facility]: AP, lateral, oblique weightbearing imaging of the left foot and ankle were obtained in clinic today. Imaging demonstrates interval progression of valgus tilt of the ankle joint. There is no bony erosion of the lateral tibial plafond with [id number] contact at the superior lateral ankle joint as well as in the lateral gutter there is retained hardware in place traversing the triple joint complex. No evidence of nonunion again noted is undercorrected talonavicular joint with increased valgus of the subtalar joint. 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 He is adamantly opposed to further surgery. Although I personally do think he would benefit from an ankle fusion and potential realignment procedure through the transverse tarsal joints, the patient does not want to consider surgery as a treatment option I suspect there is a component of vascular disease contributing to his swelling. We will place a referral to [facility] for further workup. I recommended use of the compression stocking and a retrial of the posterior shell hinged AFO brace The patient will follow-up as needed with us. I see no need for further orthopedic evaluation unless the brace proves ineffective in managing his pain or if he decides to pursue surgical treatment Natalia Field MD [address] [place], [place] [address], [place], [address], [facility] 01/03/2024 16:03:01
--- OUTSIDE RECORDS SUMMARY | 2025-07-04 06:25 | XMS_ITS | Encounter Summary ---
Author Organization [facility] Address [address] [place] [address] Phone Care Team Providers Care Pnp Name Role Phone Jewel Rebolledo MD Primary Care Provider [phone] Pcp, Not Required Unavailable Unavailable Wade Seo DO, Justine Unavailable [phone] Luis Aly MD Unavailable [phone] Hodan Rodriguez MD, MPH Unavailable [phone] Encounter Details Date Type Department Care Team (Late st Contact Info) Description 02/27/2025 Telephone [facility] Center [address] [place] [address] Afua Weiss [address] [place] [address] [address] [place] [address] [email or web address] Social History Tobacco Use Types [...] on filedocumented in this encounter Care Teams Pnp Relationship Specialty Start Date End Date Jewel Rebolledo MD [address] [place] [address] PCP - General Internal Medicine 12/08/24 Pcp, Not Required [address] [place] [address] 12/08/24 Serenity Olvera DO [address] [place] [phone] [email or web address] Medical Oncology 12/26/24 Luis Aly MD [address] [place] [phone] [email or web address] Medical Oncology 12/26/24 Hodan Rodriguez MD, MPH [address] [place] [address] [email or web address] Dermatology 12/26/24 documented as of this encounter Additional Source Comments The information contained in this document represents components of the legal health record. It is not the complete legal health record.[facility]
--- OUTSIDE RECORDS SUMMARY | 2025-07-04 06:25 | XMS_ITS | Encounter Summary ---
Author Organization [facility] Address [address] [place] [address] Phone Care Team Providers Care Heavy Mobile Equipment Repairer Name Role Phone Jewel Rebolledo MD Primary Care Provider [phone] Pcp, Not Required Unavailable Unavailable Wade Seo DO, Justine Unavailable [phone] Luis Aly MD Unavailable [phone] Hodan Rodriguez MD, MPH Unavailable [phone] Encounter Details Date Type Department Care Team (Late st Contact Info) Description 12/08/2024 Procedure Pass [facility], Ct Scan - [address] [address] Social History Tobacco Use Types Packs/Day Years [...] on filedocumented in this encounter Care Teams Heavy Mobile Equipment Repairer Relationship Specialty Start Date End Date Jewel Rebolledo MD [address] [place] [address] PCP - General Internal Medicine 12/08/24 Pcp, Not Required [address] [place] [address] 12/08/24 Serenity Olvera DO [address] [place] [phone] [email or web address] Medical Oncology 12/26/24 Luis Aly MD [address] [place] [address] [email or web address] Medical [email or web address] 12/26/24 Hodan Rodriguez MD, MPH [address] [place] [phone] [email or web address] Dermatology 12/26/24 documented as of this encounter Additional Source Comments The information contained in this document represents components of the legal health record. It is not the complete legal health record.[facility]
--- OUTSIDE RECORDS SUMMARY | 2025-07-04 06:25 | XMS_ITS | Encounter Summary ---
Author Organization [facility] Address [address] [place] [address] Care Team Providers Care Custom Protection Officer Name Role Phone Pcp, No Primary Care Provider Unavailabl e Encounter Details Date Type Department Care Team (Late st Contact Info) Description 01/13/2024 Scanned Document [facility] Urologic Surgery [address] [place] [address] Enoch Cardona MD [address] [id number] Social History Tobacco Use Types Packs/Day Years [...] on filedocumented in this encounter Care Teams Custom Protection Officer Relationship Specialty Start Date End Date Pcp, No PCP - General General Medicine 08/19/23 documented as of this encounter
--- OUTSIDE RECORDS SUMMARY | 2025-07-04 06:25 | XMS_ITS | Clinical Summary ---
Author Organization [facility] Address [address] [place] [address] Care Team Providers Care Rn Mds Coordinator Name Role Phone Pcp, No Primary Care [...] s (ZINC PO) Take by mouth. Active [place]-3 Fatty Acids (FISH OIL PO) Take by [...] Vaccine (1 of 2) 1987 RSV Vaccine 50 years and older and Patients (1 - 1-dose 75+ series) 2012 Influenza Vaccine 03/24/2025 05/20/2022, , 05/21/2020, Additional history exists COVID-19 Vaccine (2024- season) 2025 06/14/2021, 10/24/2020, 10/03/2020 Hepatitis B Vaccines Aged Out No long er eligible based on patient's age to complete this topic Insurance MEDICARE PART A & B [employer] [facility] - PPO Care Teams Rn Mds Coordinator Relationship Specialty Start Date End Date Pcp, No PCP - General General Medicine 08/19/23
--- OUTSIDE RECORDS SUMMARY | 2025-07-04 06:25 | XMS_ITS | Encounter Summary ---
Author Organization [facility] Address [address] [place] [address] Phone Care Team Providers Care Storage Garage Attendant Name Role Phone Jewel Rebolledo MD Primary Care Provider [phone] Pcp, Not Required Unavailable Unavailable Wade Seo DO, Justine Unavailable [phone] Luis Aly MD Unavailable [phone] Hodan Rodriguez MD, MPH Unavailable [phone] Encounter Details Date Type Department Care Team (Late st Contact Info) Description 04/13/2025 Procedure Pass [facility], [facility] [place], [place] [address] [facility] [place] [address] Social History Tobacco Use Types Packs/Day Years [...] on filedocumented in this encounter Care Teams Storage Garage Attendant Relationship Specialty Start Date End Date Jewel Rebolledo MD [address] [place] [phone] PCP - General Internal Medicine 12/08/24 Pcp, Not Required [address] [place] [address] 12/08/24 Serenity Olvera DO [address] [place] [address] [place] [address] [email or web address] Medical [email or web address] 12/26/24 Luis Aly MD [address] [place] [phone] Medical Oncology 12/26/24 Hodan Rodriguez MD, MPH [address] [place] [address] [email or web address] Dermatology 12/26/24 documented as of this encounter Additional Source Comments The information contained in this document represents components of the legal health record. It is not the complete legal health record.[facility]
--- OUTSIDE RECORDS SUMMARY | 2025-07-04 06:25 | XMS_ITS | Clinical Summary ---
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 Encounters Date Type Department Care Team Description 06/30/2025 11:30 AM EST - 06/30/2025 11:59 PM EST Hospital Encounter [address] [address] Jack Russell MD 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); Squamous cell carcinoma of skin of face Discharge Disposition: Home or Self Care 06/09/2025 11:45 AM EDT Office Visit [facility] Hematology Oncology [address] [place] [phone] Jack Russell MD 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); Hypothyroidism due to drugs; Anemia complicating neoplastic disease; Anxiety 06/09/2025 11:30 AM EDT - 06/09/2025 11:59 PM EDT Hospital Encounter [address] [address] 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); Squamous cell carcinoma of skin of face; Acquired hypothyroidism Discharge Disposition: Home or Self Care 05/23/[address] [address] Juanis Mcneill RN 05/19/2025 11:30 AM EDT - 05/19/2025 11:59 PM EDT Hospital Encounter [address] [address] Jack Russell MD 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); Squamous cell carcinoma of skin of face Discharge Disposition: Home or Self Care 05/19/2025 10:00 AM EDT Office Visit [facility] Hematology Oncology [address] [place] [address] Jack Russell MD 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); Hypothyroidism due to drugs; Anemia complicating neoplastic disease; Anxiety 04/28/2025 11:30 AM EDT - 04/28/2025 11:59 PM EDT Hospital Encounter [facility] [address] [address] 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); Drug therapy; Hypothyroidism due to drugs Discharge Disposition: Home or Self Care from [...] Orientation Straight 05/19/2025 8: 50 AM EDT Obstetrics History Last Filed Vital Signs Vital Sign Reading Time Taken Comments Blood Pressure 142/87 06/30/2025 11:44 AM EST Pulse 72 06/30/2025 11:44 AM EST Temperature 35.9 C (96.7 F) 06/30/2025 11:44 AM EST Respiratory Rate 18 05/19/2025 11:54 AM EDT Oxygen Saturation 100% 06/30/2025 11:44 AM EST Inhaled Oxygen Concentration - - Weight 76.2 kg (168 lb) 06/30/2025 11:44 AM EST Height 167.6 cm (5' 6 ) 06/09/2025 12:08 PM EDT Body Mass Index 27.12 06/09/2025 12:08 PM EDT Plan of Treatment Upcoming Encounters Date Type Department Care Team (Late st Contact Info) Description 07/12/2025 11:00 AM EST Appointment [facility] CT Scan [address] [place] [address] 07/12/2025 1:00 PM EST Appointment [facility] CT Scan [address] [place] [phone] 07/21/2025 11:30 AM EST Appointment [facility] [address] [phone] 08/11/2025 11:30 AM EST Office Visit [facility] Hematology Oncology [address] [place] [phone] Jack Russell MD [address] [place] [phone] Health Maintenance Due Date Last Done Comments [...] Vaccine ( season) 2025 06/14/2021, 10/24/2020, 10/03/2020 Falls Risk Assessment 06/30/2026 06/30/2025 Hypertension/CHF/CAD Annual BMP Blood Test 06/30/2026 06/30/2025, 06/09/2025, 05/19/2025, Additional history exists DTaP,Tdap,and Td Vaccines (2 - Td or Tdap) 04/11/2030 04/11/2020 Zoster Vaccines Completed 06/05/2021, 02/22/2021 Influenza Vaccine Completed 05/15/2025, , 05/26/2023, Additional history exists HIB Vaccines Aged Out No longer eligi [...] of face Hypothyroidism due to drugs CBC WITH AUTO DIFFERENTIAL STAT 06/09/2025 12:35 PM EDT 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 MAGNESIUM STAT 06/09/2025 12:35 PM EDT 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 COMPREHENSIVE METABOLIC PANEL STAT 06/09/2025 12:35 PM EDT 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 CBC AND DIFFERENTIAL STAT 06/09/2025 12:35 PM EDT 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 THYROID STIMULATING HORMONE Routine 06/09/2025 12:35 PM EDT Squamous cell carcinoma of skin of face Acquired hypothyroidism CBC WITH AUTO DIFFERENTIAL STAT 05/19/2025 12:22 PM EDT 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 MAGNESIUM STAT 05/19/2025 12:22 PM EDT 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 COMPREHENSIVE METABOLIC PANEL STAT 05/19/2025 12:22 PM EDT 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 CBC AND DIFFERENTIAL STAT 05/19/2025 12:22 PM EDT 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 THYROID STIMULATING HORMONE STAT 05/19/2025 12:22 PM EDT 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 WBC 4.3(L) 4.8 - 10.8 K/mcL LAB HEMETOLOGY METHOD 06/30/2025 12:49 PM EST [facility] RBC 4.00(L) 4.50 - 5.50 M/mcL LAB HEMETOLOGY METHOD 06/30/2025 12:[address] [facility] Hemoglobin 11.8(L) 13.5 - 17.5 g/dL LAB HEMETOLOGY METHOD 06/30/2025 12:[address] [facility] Hematocrit 38.3(L) 42.0 - 54.0 % LAB HEMETOLOGY METHOD 06/30/2025 12:[address] [facility] MCV 95.8 79.0 - 98.0 FL LAB HEMETOLOGY METHOD 06/30/2025 12:[address] [facility] MCH 29.5 27.0 - 32.0 pcg LAB HEMETOLOGY METHOD 06/30/2025 12:[address] [facility] MCHC 30.8(L) 32.0 - 37.0 g/dL LAB HEMETOLOGY METHOD 06/30/2025 12:[address] [facility] RDW 18.7(H) 11.0 - 15.0 % LAB HEMETOLOGY METHOD 06/30/2025 12:[address] [facility] Platelets 69(L) 130 - 400 K/mcL LAB HEMETOLOGY METHOD 06/30/2025 12:[address] [facility] Comment:previously verified by slide MPV 10.5 7.0 - 11.0 FL LAB HEMETOLOGY METHOD 06/30/2025 12:[address] [facility] NRBC 0.0 <1.0 % LAB HEMETOLOGY METHOD 06/30/2025 12:[address] [facility] NRBC Absolute 0.00 <0.10 K/mcL LAB HEMETOLOGY METHOD 06/30/2025 12:[address] [facility] Neutrophils Relative 65.4 % LAB HEMETOLOGY METHOD 06/30/2025 12:[address] [facility] Lymphocytes Relative 23.1 % LAB HEMETOLOGY METHOD 06/30/2025 12:49 PM EST [facility] Monocytes Relative 7.5 % LAB HEMETOLOGY METHOD 06/30/2025 12:[address] [facility] Eosinophils Relative 2.8 % LAB HEMETOLOGY METHOD 06/30/2025 12:[address] [facility] Basophils Relative 0.5 % LAB HEMETOLOGY METHOD 06/30/2025 12:[address] [facility] Immature Granulocytes Relative 0.7 % LAB HEMETOLOGY METHOD 06/30/2025 12:[address] [facility] Neutrophils Absolute 2.78 1.50 - 7.00 K/mcL LAB HEMETOLOGY METHOD 06/30/2025 12:[address] [facility] Lymphocytes Absolute 0.98(L) 1.00 - 5.00 K/mcL LAB HEMETOLOGY METHOD 06/30/2025 12:[address] [facility] Monocytes Absolute 0.32 0.20 - 1.00 K/mcL LAB HEMETOLOGY METHOD 06/30/2025 12:[address] [facility] Eosinophils Absolute 0.12 0.00 - 0.50 K/mcL LAB HEMETOLOGY METHOD 06/30/2025 12:[address] [facility] Basophils Absolute 0.02 0.00 - 0.20 K/mcL LAB HEMETOLOGY METHOD 06/30/2025 12:[address] [facility] Immature Granulocytes Absolute 0.03 0.00 - 0.03 K/mcL LAB HEMETOLOGY METHOD 06/30/2025 12:[address] [facility] Blood Venous blood specimen / Unknown Venipuncture / Unknown 06/30/2025 12:09 PM EST 06/30/2025 12:35 PM EST us Subramony Drew NATHAN LAB BLOOD ORDERABLE S Final Result [facility] [address] [place] [address], * Thyroid stimulating hormone (06/30/2025 12:09 PM EST) Only the most recent of4 resultswithin the time period is included. TSH 2.47 0.40 - 4.00 mcIU/mL LAB CHEMISTRY METHOD 06/30/2025 2:07 PM EST [facility] Blood Venous blood specimen / Unknown Venipuncture / Unknown 06/30/2025 12:09 PM EST 06/30/2025 12:35 PM EST us Jack Russell MD LAB BLOOD ORDERABLE S Final Result Performing Organization Address City/[facility]/ZIP Co de Phone Number [facility] [address] [place] [address], * Magnesium (06/30/2025 12:09 PM EST) Only the most recent of3 resultswithin the time period is included. [facility] Magnesium 2.0 1.9 - 2.6 mg/dL LAB CHEMISTRY METHOD 06/30/2025 1:08 PM EST [facility] Blood Venous blood specimen / Unknown Venipuncture / Unknown 06/30/2025 12:09 PM EST 06/30/2025 12:35 PM EST us Jack Russell MD LAB BLOOD ORDERABLE S Final Result [facility] [address] [place] [address], * (ABNORMAL) Comprehensive metabolic panel (06/30/2025 12:09 PM EST) Only the most recent of4 resultswithin the time period is included. Sodium 140 133 - 145 mmol/L LAB CHEMISTRY METHOD 06/30/2025 1:[address] [facility] Potassium 4.5 3.5 - 5.5 mmol/L LAB CHEMISTRY METHOD 06/30/2025 1:[address] [facility] Chloride 107 96 - 110 mmol/L LAB CHEMISTRY METHOD 06/30/2025 1:[address] [facility] CO2 29 21 - 32 mmol/L LAB CHEMISTRY METHOD 06/30/2025 1:[address] [facility] Anion Gap 4 3 - 11 LAB CHEMISTRY METHOD 06/30/2025 1:[address] [facility] Glucose 237(H) 70 - 100 mg/dL LAB CHEMISTRY METHOD 06/30/2025 1:[address] [facility] BUN 24 5 - 25 mg/dL LAB CHEMISTRY METHOD 06/30/2025 1:[address] [facility] Creatinine 1.10 0.70 - 1.30 mg/dL LAB CHEMISTRY METHOD 06/30/2025 1:[address] [facility] eGFR 65 >=60 mL/min/1. 73m2 LAB CHEMISTRY METHOD 06/30/2025 1:[address] [facility] Comment:Calculation based on the Chronic Kidney Disease Epidemiology Collaboration (CKD-EPI) equation refit without adjustment for race. BUN/Creatinine Ratio 21.8 LAB CHEMISTRY METHOD 06/30/2025 1:[address] [facility] Calcium 9.1 8.5 - 10.5 mg/dL LAB CHEMISTRY METHOD 06/30/2025 1:[address] [facility] AST (SGOT) 66(H) 10 - 42 unit/L LAB CHEMISTRY METHOD 06/30/2025 1:[address] [facility] ALT (SGPT) 93(H) 10 - 60 unit/L LAB CHEMISTRY METHOD 06/30/2025 1:[address] [facility] Alkaline Phosphatase 205(H) 42 - 121 unit/L LAB CHEMISTRY METHOD 06/30/2025 1:[address] [facility] Total Protein 6.7 6.0 - 8.0 g/dL LAB CHEMISTRY METHOD 06/30/2025 1:09 PM EST [facility] Albumin 3.2 3.2 - 5.0 g/dL LAB CHEMISTRY METHOD 06/30/2025 1:09 PM EST [facility] Total Bilirubin 0.5 0.0 - 1.4 mg/dL LAB CHEMISTRY METHOD 06/30/2025 1:09 PM EST [facility] Blood Venous blood specimen / Unknown Venipuncture / Unknown 06/30/2025 12:09 PM EST 06/30/2025 12:35 PM EST Jack Russell MD LAB BLOOD ORDERABLE S Final Result [facility] [address] [place] [address], from Last 3 Months Insurance MEDICARE [employer] Advance Directives Documents on File Type Date Recorded Patient Contracts Analyst Expl anation Health Care Decision (hx) 01/27/2024 CHATO MANDEL DIRECTIVE Care Teams Nutrition Director Relationship Specialty Start Date End Date Jewel Rebolledo [facility] [address] [facility] [place] P[facility] - General 09/25/22
--- OUTSIDE RECORDS SUMMARY | 2025-07-04 06:25 | XMS_ITS | Clinical Summary ---
Author Organization [facility] Address [address] [address] Phone Care Team Providers Care Knitting Machine Fixer Head Name Role Phone Jewel Rebolledo MD Primary Care Provider [phone] Pcp, Not Required Unavailable Unavailable Wade Seo DO, Justine Unavailable [phone] Luis Aly MD Unavailable [phone] Hodan Rodriguez MD, MPH Unavailable [phone] Medications LANTUS SOLOSTAR U-100 INSULIN 100 unit/mL [...] Units under the skin nightly at bedtime. Active Active Problems Problem Noted Date Diagnosed Date Squamous cell carcinoma of skin of face 11/17/19 Encounters Date Type Department Care Team Description 06/19/2025 Telephone [facility], [address], [address] [place] [address] Francisca Dias MD, MPH 05/30/2025 1:30 PM EDT [facility], [address], [address] [place] [address] Francisca Dias MD, MPH 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) 05/02/2025 9:30 AM EDT Office Visit [facility], [facility] [address] [facility], [address] [place] [address] Francisca Dias MD, MPH 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) 04/20/2025 Telephone [place] [id number] [facility] [address] [address] Rojelio Gallardo MD 04/13/2025 11:45 AM EDT Infusion [facility] Imaging Department, [facility], Imaging [facility] [address] [facility] [address], [address] [place] [address] Hodan Rodriguez MD, MPH Diane Molina RN 04/13/2025 11:28 AM EDT - 04/13/2025 11:59 PM EDT Hospital Encounter [facility] Imaging Department, [facility], [place] [address], [address] [place] [address] Hodan Rodriguez MD, MPH Discharge Disposition: Home or Self Care 04/13/2025 10:20 AM EDT Office Visit [facility], [facility] [address] [facility], 5th [place] [address] Hodan Rodriguez MD, MPH Squamous cell carcinoma of forehead (Primary Dx) 04/13/2025 Procedure Pass [facility] Imaging Department, [facility], [place] [address] [facility], [address] [place] [address] 04/13/2025 Procedure Pass [facility] Imaging Department, [facility], [place] [address] [facility], [address] [place] [address] from Last 3 Months Social History Tobacco [...] Sign Reading Time Taken Comments Blood Pressure 101/57 05/30/2025 12:44 PM EDT Pulse 70 05/30/2025 12:44 PM EDT Temperature 35.9 C (96.7 F) 05/30/2025 12:39 PM EDT Respiratory Rate 16 05/30/2025 12:39 PM EDT Oxygen Saturation 100% 05/30/2025 12:44 PM EDT Inhaled Oxygen Concentration - - Weight 73.6 kg (162 lb 4.1 oz) 05/02/2025 9:41 A M EDT Height - - Body Mass Index - - Plan of Treatment Health Maintenance Due Date Last Done Comments DEPRESSION SCREENING 1947 RSV VACCINE (1 - 1-dose 75+ series) 2012 PNEUMOCOCCAL VACCINES (50+ years) (2 of 2 - PCV) 03/11/2022 03/11/2021 COVID-19 VACCINE (4 - 2024- season) 2025 06/14/2021, 10/24/2020, 10/03/2020 POTASSIUM LEVEL 12/15/2025 12/15/2024 CREATININE LEVEL 04/13/2026 04/13/2025, , 12/14/2024 Adult Td,Tdap Booster 04/11/2030 04/11/2020 ZOSTER VACCINES Completed 06/05/2021, 02/22/2021 INFLUENZA VACCINE Completed 05/15/2025, , 05/26/2023, Additional history exists HEPATITIS A VACCINES Aged Out No long er eligible based on patient's age to complete this topic HIB VACCINES Aged Out No longer eligi ble based on patient's age to complete this topic IPV VACCINES Aged Out No longer eligi ble [...] 04/13/2025 12:00 PM EDT COMPREHENSIVE METABOLIC PANEL (CMP) Routine 12/15/2024 10:05 AM EDT Squamous cell [...] EDT) Creatinine 1.00 0.50 - 1.20 mg/dl [facility] LIC# [id number] EGFR 73 >59 mL/min/1.7 3m2 [facility] LIC# [id number] Comment:Estimated glomerular filtration rate calculated using the CKD-EPI refit equation. 04/13/2025 12:0 0 PM EDT 04/13/2025 12:02 PM EDT us Hodan Rodriguez MD, MPH POINT OF CARE TEST ORDERABL ES Final Result [facility] LIC# [id number] [address] [place] [address] * (ABNORMAL) Comprehensive metabolic panel (12/15/2024 10:05 AM EDT) SODIUM 138 133 - 146 mmol/L [facility] POTASSIUM 3.9 3.3 - 5.1 mmol/L [facility] CHLORIDE 100 96 - 108 mmol/L [facility] CO2 30 21 - 35 mmol/L [facility] BUN 30(H) 6 - 19 mg/dL [facility] CREATININE 1.30 0.5 - 1.5 mg/dL [facility] GLUCOSE 253(H) 70 - 99 mg/dL [facility] ALBUMIN 3.7(L) 3.9 - 4.8 g/dL [facility] TOTAL PROTEIN 7.2 6.5 - 8.0 g/dL [facility] CALCIUM 9.6 8.4 - 10.3 mg/dL [facility] ALKALINE PHOSPHATASE 142(H) 39 - 117 U/L [facility] TOTAL BILIRUBIN 0.6 0.0 - 1.2 mg/dL [facility] AST 32 0 - 37 U/L [facility] ALT 22 0 - 40 U/L [facility] GLOBULIN 3.5 1 - 4.8 g/dL [facility] EGFR 53(L) >59 mL/min/1.7 3m2 [facility] Comment:Estimated glomerular filtration rate calculated using the CKD-EPI refit equation. ANION GAP 12 10 - 20 mmol/L [facility] Blood 12/15/2024 10:0 5 AM EDT 12/15/2024 10:07 AM EDT Diann Gutierres MD, PhD LAB BLOOD BKR ORDERABLES Final Result [facility] [address] [place] [address] from Last 3 Months or Most Recently Relevant to Health Maintenance Insurance MEDICARE PART A & B [employer] MED[employer] SUPPLEMENT MEDICARE PART A & B [employer] MEDEX SUPPLEMENT MEDICARE PART A & B [employer] MED[employer] SUPPLEMENT MEDICARE PART A & B [employer] SUPPLEMENT MEDICARE PART A & B [employer] SUPPLEMENT MEDICARE PART A & B [employer] MEDEX SUPPLEMENT Care Teams Knitting Machine Fixer Head Relationship Specialty Start Date End Date Jewel Rebolledo MD [address] [place] [address] PCP - General Internal Medicine 12/08/24 Pcp, Not Required [address] [place] [address] 12/08/24 Serenity Olvera DO [address] [place] [address] [place] [address] [email or web address] Medical Oncology 12/26/24 Luis Aly MD [address] [place] [address] [email or web address] 12/26/24 Hodan Rodriguez MD, MPH [address] [place] [phone] [email or web address] Dermatology 12/26/24 Additional Source Comments The information contained in this document represents components of the legal health record. It is not the complete legal health record.[facility]
--- OUTSIDE RECORDS SUMMARY | 2025-07-04 06:25 | XMS_ITS ---
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
--- OUTSIDE RECORDS SUMMARY | 2025-07-04 06:25 | XMS_ITS | Encounter Summary ---
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 CT Scan [address] [place] [address] 07/12/2025 1:[address] [facility] CT Scan [address] [place] [address] 07/21/2025 11:[address] [facility] Infusion Center [address] [address] 08/11/2025 11:30 AM EST Office Visit 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 ([facility]) Unspecified fall, initial encounter Type 2 diabetes mellitus without complications ([facility]) BASIC METABOLIC PANEL Routine 06/27/2024 4:47 AM EST 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 ([facility]) Unspecified fall, initial encounter Type 2 diabetes mellitus without complications ([facility]) documented in this encounter Results * (ABNORMAL) Complete blood count (06/27/2024 4:47 AM EST) WBC 5.6 4.8 - 10.8 K/[facility] LAB HEMETOLOGY METHOD 06/27/2024 11:31 AM EST [facility] LAB RBC 3.50(L) 4.50 - 5.50 M/[facility] LAB HEMETOLOGY METHOD 06/27/2024 11:31 AM EST [facility] LAB Hemoglobin 9.7(L) 13.5 - 17.5 g/dL LAB HEMETOLOGY METHOD 06/27/2024 11:31 AM EST [facility] LAB Hematocrit 31.4(L) 42.0 - 54.0 % LAB HEMETOLOGY METHOD 06/27/2024 11:31 AM EST [facility] LAB MCV 90.0 79.0 - 98.0 FL LAB HEMETOLOGY METHOD 06/27/2024 11:31 AM [facility] LAB MCH 27.8 27.0 - 32.0 pcg LAB HEMETOLOGY METHOD 06/27/2024 11:31 AM EST [facility] LAB MCHC 30.9(L) 32.0 - 37.0 g/dL LAB HEMETOLOGY METHOD 06/27/2024 11:31 AM [facility] LAB RDW 17.8(H) 11.0 - 15.0 % LAB HEMETOLOGY METHOD 06/27/2024 11:31 AM [facility] LAB Platelets 158 130 - 400 K/mcL LAB HEMETOLOGY METHOD 06/27/2024 11:31 AM EST [facility] LAB MPV 10.5 7.0 - 11.0 FL LAB HEMETOLOGY METHOD 06/27/2024 11:31 AM [facility] LAB NRBC 0.0 <1.0 % LAB HEMETOLOGY METHOD 06/27/2024 11:31 AM [facility] LAB NRBC Absolute 0.00 <0.10 K/mcL LAB HEMETOLOGY METHOD 06/27/2024 11:31 AM [facility] LAB Blood Venous blood specimen / Unknown Venipuncture / Unknown 06/27/2024 4:47 AM EST 06/27/2024 10:54 AM EST us Lamonte Sagastume MD LAB BLOOD ORDERABLES Final Res ult [facility] [address] [place] [address], * (ABNORMAL) Basic metabolic panel (06/27/2024 4:47 AM EST) Sodium 140 133 - 145 mmol/L LAB CHEMISTRY METHOD 06/27/2024 11:34 AM [facility] LAB Potassium 4.1 3.5 - 5.5 mmol/L LAB CHEMISTRY METHOD 06/27/2024 11:34 AM [facility] LAB Chloride 103 96 - 110 mmol/L LAB CHEMISTRY METHOD 06/27/2024 11:34 AM [facility] LAB CO2 33(H) 21 - 32 mmol/L LAB CHEMISTRY METHOD 06/27/2024 11:34 AM [facility] LAB Anion Gap 4 3 - 11 LAB CHEMISTRY METHOD 06/27/2024 11:34 AM [facility] LAB Glucose 94 70 - 100 mg/dL LAB CHEMISTRY METHOD 06/27/2024 11:34 AM [facility] LAB BUN 51(H) 5 - 25 mg/dL LAB CHEMISTRY METHOD 06/27/2024 11:34 AM [facility] LAB Creatinine 0.96 0.70 - 1.30 mg/dL LAB CHEMISTRY METHOD 06/27/2024 11:34 AM [facility] LAB eGFR 77 >=60 mL/min/1. 73m2 LAB CHEMISTRY METHOD 06/27/2024 11:34 AM [facility] LAB Comment:Calculation based on the Chronic Kidney Disease Epidemiology Collaboration (CKD-EPI) equation refit without adjustment for race. 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 ([facility] V24, [facility] V28) Unspecified fall, initial encounter Type 2 diabetes mellitus without complications ([facility] V24, [facility] V28) documented in this encounter Care Teams Visual Merchandising Coordinator Relationship Specialty Start Date End Date Jewel Rebolledo MD [address] [place] [address] PCP - General 09/25/22 documented as of this encounter
--- OUTSIDE RECORDS SUMMARY | 2025-07-04 06:25 | XMS_ITS | Encounter Summary ---
Author Organization [facility] [place] [address] Care Team Providers Care Sterilisation Technician Name Role Phone Jewel Rebolledo MD Primary Care Provider [phone] Encounter Details Date Type Department Care Team (Late Contact Info) Description 03/20/2025 Lab Requisition [facility] - Main Lab [address] [place] [address] Sreekanth Lobato MD [address] [facility] [address] [place] [address] Urinary tract infection, site not [...] Info) Description 07/12/2025 11:00 AM EST Appointment [facility] CT Scan [address] [place] [address] 07/12/2025 1:00 PM EST Appointment [facility] CT Scan [address] [place] [address] 07/21/2025 11:30 AM EST Appointment [facility] Infusion Center [address] [address] 08/11/2025 11:30 AM EST Office Visit [facility] Hematology Oncology [address] [place] [address] Jack Russell MD [address] [place] [address] documented as of this encounter Procedures Procedure [...] reflex microscopic (03/20/2025 12:00 AM EDT) Specific [place] Urine 1.020 1.003 - 1.030 LAB URINALYSIS - AUTOMATED METHOD 03/20/2025 8:48 PM EDT [facility] LAB pH, Urine 6.0 5.0 - 8.0 pH LAB URINALYSIS - AUTOMATED METHOD 03/20/2025 8:48 PM T [facility] Leukocytes, Urine Negative Negative LAB URINALYSIS - AUTOMATED METHOD 03/20/2025 8:48 PM T [facility] Nitrite, Urine Negative Negative LAB URINALYSIS - AUTOMATED METHOD 03/20/2025 8:48 PM [facility] Protein, Urine Negative <=Trace mg/dL LAB URINALYSIS - AUTOMATED METHOD 03/20/2025 8:48 PM [facility] LAB Glucose, Urine >=1000(A) Negative mg/dL LAB URINALYSIS - AUTOMATED METHOD 03/20/2025 8:48 PM [facility] LAB Ketones, Urine Negative Negative mg/dL LAB URINALYSIS - AUTOMATED METHOD 03/20/2025 8:48 PM [facility] LAB Urobilinogen , Urine 0.2 0.2 - 1.0 mg/dL LAB URINALYSIS - AUTOMATED METHOD 03/20/2025 8:48 PM [facility] Bilirubin, Urine Negative Negative LAB URINALYSIS - AUTOMATED METHOD 03/20/2025 8:48 PM [facility] Blood, Urine Negative Negative LAB URINALYSIS - AUTOMATED METHOD 03/20/2025 8:48 PM [facility] RBC, Urine 1.6 0 - 4 /HPF LAB URINALYSIS - AUTOMATED METHOD 03/20/2025 8:48 PM [facility] WBC, Urine 1.8 0 - 4 /HPF LAB URINALYSIS - AUTOMATED METHOD 03/20/2025 8:48 PM [facility] Squamous Epithelial, Urine >100(H) 0 - 60 /LPF LAB URINALYSIS - AUTOMATED METHOD 03/20/2025 8:48 PM [facility] Non-Squamous Epithelial, Urine 2-5 Transitional epithelial cells. /LPF 03/20/2025 8:48 PM [facility] Bacteria, Urine Negative Negative /HPF LAB URINALYSIS - AUTOMATED METHOD 03/20/2025 8:48 PM [facility] Hyaline Casts, Urine 0 0 - 3 /LPF LAB URINALYSIS - AUTOMATED METHOD 03/20/2025 8:48 PM [facility] Urine Urinary bladder structure / Unknown Non-blood Collection / Unknown 03/20/2025 03/20/2025 5:56 PM EDT us Sreekanth Lobato MD LAB URINE ORDERABLES Citlaly sarah Result [facility] [address] [place] [address], [place] [phone] * (ABNORMAL) Culture urine (03/20/2025 12:00 AM EDT) Culture, Urine <1,000 CFU/mL Proteus mirabilis(A ) SAHRA 03/23/2025 8:28 AM EDT [facility] Comment: The organism value for [...] - GENERA L ORDERABLES Final Result [facility] [address] [place] [address], documented in this encounter Visit Diagnoses Diagnosis Urinary tract infection, site not specified documented in this encounter Care Teams Sterilisation Technician Relationship Specialty Start Date End Date Jewel Rebolledo MD [address] [place] [address] PCP - General 09/25/22 documented as of this encounter
--- OUTSIDE RECORDS SUMMARY | 2025-07-04 06:25 | XMS_ITS | Encounter Summary ---
Author Organization [facility] Address [address] [facility] [address] [place] [address] Phone Care Team Providers Care Environmental Analyst Name Role Phone Jewel Rebolledo MD Primary Care Provider [phone] Pcp, Not Required Unavailable Unavailable Wade Seo DO, Justine Unavailable [phone] Luis Aly MD Unavailable [phone] Hodan Rodriguez MD, MPH Unavailable [phone] Encounter Details Date Type Department Care Team (Late st Contact Info) Description 12/08/2024 Procedure Pass [facility], Ct Scan - [address] [address] Social History Tobacco Use Types Packs/Day Years [...] on filedocumented in this encounter Care Teams Environmental Analyst Relationship Specialty Start Date End Date Jewel Rebolledo MD [address] [place] [address] PCP - General Internal Medicine 12/08/24 Pcp, Not Required [address] [place] [phone] 12/08/24 Serenity Olvera DO [address] [place] [phone] [email or web address] 12/26/24 Luis Aly MD [address] [place] [id number] [email or web address] 12/26/24 Hodan Rodriguez MD, MPH [address] [place] [phone] [email or web address] [email or web address] 12/26/24 documented as of this encounter Additional Source Comments The information contained in this document represents components of the legal health record. It is not the complete legal health record.[facility]
== END 2025-07-04 06:23 | disposition home or self-care (01) ==
LOC: CF 06:22
PROVIDERS: Visit Provider Anesthesiology
DX: M19.011 Primary osteoarthritis, right shoulder (principal); M19.012 Primary osteoarthritis, left shoulder
CPT/HCPCS: 20610; J1100; J2003; J2795; Q9967

== ENCOUNTER 2025-07-04 13:40 | Outpatient (AMB) | payer MEDICARE, SELFPAY ==
--- OUTSIDE RECORDS SUMMARY | 2025-06-30 11:30 | XMS_ITS | Encounter Summary ---
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 Jack Russell MD [address] [place] [phone] Phone: tel: fax: [facility] [address] [place] [phone] Phone: tel: fax: Referral ID Status Reason Start Date Expiration Date V isits Requested Visits Authorized [id number] Authorized 01/04/2025 01/04/2026 1 9 Encounter Details Date Type Department Care Team (Latest Contact Info) Description 06/30/2025 11:30 AM EST - 06/30/2025 11:59 PM EST Hospital Encounter [facility] [address] [place] [phone] Jack Russell MD [address] [place] [phone] 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); Squamous cell carcinoma of skin of face Discharge Disposition: Home or Self Care Social History Tobacco Use Types Packs/Day Years Used Date Smoking Tobacco: Former Cigarettes Smokeless Tobacco: Never Alcohol Use Standard Drinks/Week Comments Not Currently 0 (1 standard drink = 0.6 oz pur e alcohol) Sex and Gender Information Value Date Recorded Sex Assigned at Male 05/19/2025 8:50 AM EDT Legal Sex Male 2:37 AM EST Gender Identity Male 05/19/2025 8:50 AM EDT Sexual Orientation Straight 05/19/2025 8: 50 AM EDT documented as of this encounter Last Filed Vital Signs Vital Sign Reading Time Taken Comments Blood Pressure 142/87 06/30/2025 11:44 AM EST Pulse 72 06/30/2025 11:44 AM EST Temperature 35.9 C (96.7 F) 06/30/2025 11:44 AM EST Respiratory Rate - - Oxygen Saturation 100% 06/30/2025 11:44 AM EST Inhaled Oxygen Concentration - - Weight 76.2 kg (168 lb) 06/30/2025 11:44 AM EST Height - - Body Mass Index 27.12 06/09/2025 12:08 PM EDT documented in this encounter Medications at Time of Discharge acetaminophen (TylenoL) 325 mg tablet Take 2 tablets (650 mg total) by mouth. 06/13/2022 ammonium lactate (LAC-HYDRIN) 12 % lotion Apply topically. atorvastatin (LIPITOR) 40 mg tablet 06/10/2022 budesonide-formo teroL (SYMBICORT) 80-4.5 mcg/actuation inhaler Inhale by mouth. Eliquis 2.5 mg tablet 10/14/2024 insulin aspart (NovoLOG) 100 unit/mL injection as directed Subcutaneous insulin lispro 100 unit/mL injection Inject under the skin. 06/13/2022 metoprolol tartrate (LOPRESSOR) 50 mg tablet Take 1 tablet (50 mg total) by mouth 2 (two) times a day. OLANZapine (ZyPREXA) 2.5 mg tablet TAKE 1 TABLET BY MOUTH DAILY AT BEDTIME NEEDED FOR INSOMNIA oxyCODONE (ROXICODONE) 15 mg immediate release tablet pregabalin (LYRICA) 150 mg capsule Take 1 capsule (150 mg total) by mouth 2 (two) times a day. 06/10/2022 torsemide (DEMADEX) 20 mg tablet 12/15/2024 zolpidem (AMBIEN) 10 mg tablet Take 1 tablet (10 mg total) by mouth at bedtime as needed. documented as of this encounter Discharge Disposition Disposition Code Departure Means Destination Home or Self Care documented in this encounter Progress Notes * Alice Colon RN - 06/30/2025 11:30 AM EST Images from the original note were not included. Patient arrives via wheelchair accompanied by for STAT labs and treatment. Patient reporting he feels his tumor has gotten larger. He is also concerned regarding the spot on top of his head thathe feels looks like a horn. Patient states his eyes have been more itchy and watery lately, he states he does have seasonal allergies. I recommended he try an over the counter allergy medicine suchas Claritin for this. Patient also reporting chronic pain in his shoulders, he states he is due forcortisone injections soon. Patient also complaining on 06/02 pain in his backside. Patient initially stating he thinks he has a hemorrhoid but then stating it is more in the area of his tailbone making it difficult to sit and lay down. Patient does have VNA at home but states he washes himself upand gets himself dressed so no one has assessed the area. Assessed at chairside and does appear to be at least stage 2 pressure ulcer. Patient states he is using a barrier cream on the area and does try to alternate which side he sits/lays on. Patient has been incontinent and changing brief every 2hours. PIV inserted without difficulty, labs drawn and sent to lab. Patient resting comfortably in chair with call pal in reach. Labs resulted and reviewed with Dr. Shaunna warner MD OK to treat. 1537-Patient completed treatment without incident. PIV removed-intact. Patient grossly incontinent of urine, patient helped to the bathroom and cleaned and changed into new brief and hospital pants. Patient's next appointment scheduled and provided to him. Patient stable upon discharge. documented in this encounter Plan of Treatment Upcoming Encounters Date Type Department Care Team (Late st Contact Info) Description 07/12/2025 11:00 AM EST Appointment [facility] [address] [place] [phone] 07/12/2025 1:00 PM EST Appointment [facility] [address] [place] [phone] 07/21/2025 11:30 AM EST Appointment [facility] [address] [phone] 08/11/2025 11:30 AM EST Office Visit [facility] [address] [place] [phone] Jack Russell MD [address] [place] [phone] documented as of this encounter Procedures Procedure Name Priority Date/Time Associated Diagnosis Comments CBC WITH AUTO DIFFERENTIAL STAT 06/30/2025 12:09 PM EST 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 CBC AND DIFFERENTIAL STAT 06/30/2025 12:09 PM EST 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 THYROID STIMULATING HORMONE STAT 06/30/2025 12:09 PM EST 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 MAGNESIUM STAT 06/30/2025 12:09 PM EST 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 COMPREHENSIVE METABOLIC PANEL STAT 06/30/2025 12:09 PM EST 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 documented in this encounter Results * (ABNORMAL) CBC auto differential (06/30/2025 12:09 PM EST) WBC 4.3(L) 4.8 - 10.8 K/mcL LAB HEMETOLOGY METHOD 06/30/2025 12:49 PM [facility] RBC 4.00(L) 4.50 - 5.50 M/mcL LAB HEMETOLOGY METHOD 06/30/2025 12:49 PM [facility] Hemoglobin 11.8(L) 13.5 - 17.5 g/dL LAB HEMETOLOGY METHOD 06/30/2025 12:49 PM [facility] Hematocrit 38.3(L) 42.0 - 54.0 % LAB HEMETOLOGY METHOD 06/30/2025 12:49 PM [facility] MCV 95.8 79.0 - 98.0 FL LAB HEMETOLOGY METHOD 06/30/2025 12:49 PM [facility] MCH 29.5 27.0 - 32.0 pcg LAB HEMETOLOGY METHOD 06/30/2025 12:49 PM [facility] MCHC 30.8(L) 32.0 - 37.0 g/dL LAB HEMETOLOGY METHOD 06/30/2025 12:49 PM [facility] RDW 18.7(H) 11.0 - 15.0 % LAB HEMETOLOGY METHOD 06/30/2025 12:49 PM [facility] Platelets 69(L) 130 - 400 K/mcL LAB HEMETOLOGY METHOD 06/30/2025 12:49 PM [facility] Comment:previously verified by slide MPV 10.5 7.0 - 11.0 FL LAB HEMETOLOGY METHOD 06/30/2025 12:49 PM [facility] NRBC 0.0 <1.0 % LAB HEMETOLOGY METHOD 06/30/2025 12:49 PM [facility] NRBC Absolute 0.00 <0.10 K/mcL LAB HEMETOLOGY METHOD 06/30/2025 12:49 PM [facility] Neutrophils Relative 65.4 % LAB HEMETOLOGY METHOD 06/30/2025 12:49 PM [facility] Lymphocytes Relative 23.1 % LAB HEMETOLOGY METHOD 06/30/2025 12:49 PM [facility] Monocytes Relative 7.5 % LAB HEMETOLOGY METHOD 06/30/2025 12:49 PM [facility] Eosinophils Relative 2.8 % LAB HEMETOLOGY METHOD 06/30/2025 12:49 PM [facility] Basophils Relative 0.5 % LAB HEMETOLOGY METHOD 06/30/2025 12:49 PM [facility] Immature Granulocytes Relative 0.7 % LAB HEMETOLOGY METHOD 06/30/2025 12:49 PM [facility] Neutrophils Absolute 2.78 1.50 - 7.00 K/mcL LAB HEMETOLOGY METHOD 06/30/2025 12:49 PM [facility] Lymphocytes Absolute 0.98(L) 1.00 - 5.00 K/mcL LAB HEMETOLOGY METHOD 06/30/2025 12:49 PM [facility] Monocytes Absolute 0.32 0.20 - 1.00 K/mcL LAB HEMETOLOGY METHOD 06/30/2025 12:49 PM [facility] Eosinophils Absolute 0.12 0.00 - 0.50 K/mcL LAB HEMETOLOGY METHOD 06/30/2025 12:49 PM [facility] Basophils Absolute 0.02 0.00 - 0.20 K/mcL LAB HEMETOLOGY METHOD 06/30/2025 12:49 PM [facility] Immature Granulocytes Absolute 0.03 0.00 - 0.03 K/mcL LAB HEMETOLOGY METHOD 06/30/2025 12:49 PM [facility] Blood Venous blood specimen / Unknown Venipuncture / Unknown 06/30/2025 12:09 PM EST 06/30/2025 12:35 PM EST Subrambk Russell MD LAB BLOOD ORDERABLE S Final Result Performing Organization Address City/[facility]/ZIP Co de Phone Number [facility] [address] [place] [address], [place] [phone] * Magnesium (06/30/2025 12:09 PM EST) [facility] Magnesium 2.0 1.9 - 2.6 mg/dL LAB CHEMISTRY METHOD 06/30/2025 1:08 PM [facility] Blood Venous blood specimen / Unknown Venipuncture / Unknown 06/30/2025 12:09 PM EST 06/30/2025 12:35 PM EST Subketan Russell MD LAB BLOOD ORDERABLE S Final Result Performing Organization Address [facility]/ZIP Co de Phone Number [facility] [address] [place] [address], [place] [phone] * (ABNORMAL) Comprehensive metabolic panel (06/30/2025 12:09 PM EST) [facility] Sodium 140 133 - 145 mmol/L LAB CHEMISTRY METHOD 06/30/2025 1:09 PM [facility] Potassium 4.5 3.5 - 5.5 mmol/L LAB CHEMISTRY METHOD 06/30/2025 1:09 PM [facility] Chloride 107 96 - 110 mmol/L LAB CHEMISTRY METHOD 06/30/2025 1:09 PM [facility] CO2 29 21 - 32 mmol/L LAB CHEMISTRY METHOD 06/30/2025 1:09 PM [facility] Anion Gap 4 3 - 11 LAB CHEMISTRY METHOD 06/30/2025 1:09 PM [facility] Glucose 237(H) 70 - 100 mg/dL LAB CHEMISTRY METHOD 06/30/2025 1:09 PM [facility] BUN 24 5 - 25 mg/dL LAB CHEMISTRY METHOD 06/30/2025 1:09 PM [facility] Creatinine 1.10 0.70 - 1.30 mg/dL LAB CHEMISTRY METHOD 06/30/2025 1:09 PM [facility] eGFR 65 >=60 mL/min/1. 73m2 LAB CHEMISTRY METHOD 06/30/2025 1:09 PM [facility] Comment:Calculation based on the Chronic Kidney Disease Epidemiology Collaboration (CKD-EPI) equation refit without adjustment for race. BUN/Creatinine Ratio 21.8 LAB CHEMISTRY METHOD 06/30/2025 1:09 PM [facility] Calcium 9.1 8.5 - 10.5 mg/dL LAB CHEMISTRY METHOD 06/30/2025 1:09 PM [facility] AST (SGOT) 66(H) 10 - 42 unit/L LAB CHEMISTRY METHOD 06/30/2025 1:09 PM [facility] ALT (SGPT) 93(H) 10 - 60 unit/L LAB CHEMISTRY METHOD 06/30/2025 1:09 PM [facility] Alkaline Phosphatase 205(H) 42 - 121 unit/L LAB CHEMISTRY METHOD 06/30/2025 1:09 PM [facility] Total Protein 6.7 6.0 - 8.0 g/dL LAB CHEMISTRY METHOD 06/30/2025 1:09 PM [facility] Albumin 3.2 3.2 - 5.0 g/dL LAB CHEMISTRY METHOD 06/30/2025 1:09 PM [facility] Total Bilirubin 0.5 0.0 - 1.4 mg/dL LAB CHEMISTRY METHOD 06/30/2025 1:09 PM [facility] Blood Venous blood specimen / Unknown Venipuncture / Unknown 06/30/2025 12:09 PM EST 06/30/2025 12:35 PM EST Jack Russell MD LAB BLOOD ORDERABLE S Final Result Performing Organization Address [facility]/ZIP Co de Phone Number [facility] [address] [place] [address], * Thyroid stimulating hormone (06/30/2025 12:09 PM EST) TSH 2.47 0.40 - 4.00 mcIU/mL LAB CHEMISTRY METHOD 06/30/2025 2:07 PM EST [facility] Blood Venous blood specimen / Unknown Venipuncture / Unknown 06/30/2025 12:09 PM EST 06/30/2025 12:35 PM EST Jack Russell MD LAB BLOOD ORDERABLE S Final Result Performing Organization Address [facility]/ZIP Co de Phone Number [facility] [address] [place] [address], documented in this encounter Visit Diagnoses Diagnosis 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 DO NOT SHAKE.Indications:Squamous cell carcinoma of skin of face,Hypothyroidism due to drugs New Bag 06/30/2025 3:07 PM EST 350 mg 514 mL/hr documented in this encounter Orders Medications Ordered That Raymond ht Not Have Been Administered Count Last Ordered Date First Ordered Date cemiplimab-rwlc (LIBTAYO) 35 0 mg in sodium chloride 257 mL chemo IVPB 1 06/30/2025 Appointment Requests Count Last Ordered Date Fi rst Ordered Date ONCBCN CALCULATED LENGTH INF USION APPOINTMENT REQUEST 1 06/30/2025 documented in this encounter Care Teams Route Inspector Relationship Specialty Start Date End Date Jewel Rebolledo MD [address] [facility] [place] PCP - General 09/25/22 documented as of this encounter
[2025-07-04 13:42] VITALS: BP 107/55; PULSE 77; RESP 16; O2SAT 100
--- NOTE | 2025-07-04 13:42 | MHC.OFFVIS ---
Vital Signs 07/04/25 13:42 Height 5 ft 4.17 in BP 107/55 L Blood Pressure Location Lt brachial Position Sitting Respiration 16 Pulse 77 Pulse Source Pulse Oximeter Pulse Oximetry (%) 100 Oxygen Delivery Method Room Air Intake Visit Reasons: Bilateral shoulder injections, 4 mg dexa Allergies No Known Allergies Allergy (Mild, Verified 05/31/25 14:18) N/A [facility] Medical History (Updated 05/31/25 @ 14:51 by Dexter Levin MD) Encounter for annual wellness exam in Medicare patient Anemia Walker as ambulation aid Chronic pain syndrome Cough Type 2 diabetes mellitus with hemoglobin A1c goal of less than 7.0% Atrial fibrillation Squamous cell carcinoma of skin of face Arthritis Persistent atrial fibrillation Acute on chronic diastolic (congestive) heart failure Urinary tract infection due to Pseudomonas aeruginosa Recurrent UTI History of prostate cancer Acute retention of urine COVID-19 vaccine series completed History of cardioversion Hx of Lyme disease Tubular adenoma of colon History of ST elevation myocardial infarction (STEMI) (HFpEF) heart failure with preserved ejection fraction Cardiac pacemaker in situ (~12/2020) Hepatorenal syndrome Symptomatic bradycardia Ventricular bigeminy Thrombocytopenia PVC (premature ventricular contraction) CHF exacerbation Bifascicular block Pancytopenia Prostate CA Myocardial infarct, old CAD (coronary artery disease) HLD (hyperlipidemia) Diabetes HTN (hypertension) Surgical History History of colonoscopy (~12/04/21) History of cervical spinal surgery History of radical prostatectomy History of left inguinal hernia repair History of total right knee replacement (TKR) History of lumbar discectomy History of cardiac pacemaker (~12/2020) Family History Father Stromal tumor of the stomach Mother Diabetes Social History Household Members: Spouse Household Members Other:: 1 Housing: House Are you a primary career technical education teacher to a significant other at home: No Do you presently have visiting nurse or other home services: Yes Alcohol intake: current Patient Tobacco Use Status: Former Tobacco user Tobacco use type: Cigarette Second Hand Smoke Exposure: No Advance Directives Date on File: 01/04/23 service: Yes Current occupational status: retired Cognitive needs: Yes (walker) Hearing needs: No Vision needs: Yes (reading/cheaters) Physical Exam Vital Signs: Last Vital Signs Pulse 77 07/04/25 13:42 Resp 16 07/04/25 13:42 BP 107/55 L 07/04/25 13:42 Pulse Ox 100 07/04/25 13:42 Oxygen Delivery Method Room Air 07/04/25 13:42 Assessment & Plan Assessment & Plan (1) Osteoarthritis of shoulders, bilateral: Code(s): M19.011 - Primary osteoarthritis, right shoulder; M19.012 - Primary osteoarthritis, left shoulder Category: Medical (2) Bilateral shoulder pain: Code(s): M25.511 - Pain in right shoulder; M25.512 - Pain in left shoulder Category: Medical Plan Bilateral glenohumeral joints local anesthetic and minimal steroid injection. Jewel is very pleasant 89 years old gentleman years old presented today in my office for the bilateral intra articular shoulder injection. She was positioned prone on operating table with bilateral shoulders slightly alleviated on a towel. The posterior surface of the shoulder as well as posterior surface of the neck and posterior surface of the upper back were prepped with ChloraPrep and draped with sterile self adhesive utility towels. C-arm was brought over the operating field and silhouette of the bilateral joints was demonstrated on the screen. 22 gauge 3-1/2 inch needle was inserted through the skin and advanced to were the silhouette of the joint in tunnel vision fashion. When the tip of the needle entered the capsule of the joint injection of the contrast performed demonstrating arthrogram 1st on the right and then on the left. After that4 cc of ropivacaine0.5% mixed with dexamethasone 5 mg mg was performed into the each joint. Upon completion of the injection the needle was removed and Band-Aid was applied. The patient tolerated procedure well. Orders: Orders FL guidance in treatment room Today M19.011 - Primary osteoarthritis, right shoulder, M19.012 - Primary osteoarthritis, left shoulder Coding Level of Care Code Procedure Only Diagnoses Osteoarthritis of shoulders, bilateral M19.011; M19.012 Bilateral shoulder pain M25.511; M25.512
--- OUTSIDE RECORDS SUMMARY | 2025-07-04 15:18 | XMS_ITS | Encounter Summary ---
Author Organization [facility] Address [address] [place] [address] Care Team Providers Care Ceramic Coater Machine Name Role Phone Pcp, No Primary Care Provider Unavailabl e Encounter Details Date Type Department Care Team (Late st Contact Info) Description 01/13/2024 Scanned Document [facility] Urologic Surgery [address] [place] [address] Enoch Cardona MD [address] [phone] Social History Tobacco Use Types Packs/Day Years [...] on filedocumented in this encounter Care Teams Ceramic Coater Machine Relationship Specialty Start Date End Date Pcp, No PCP - General General Medicine 08/19/23 documented as of this encounter
--- OUTSIDE RECORDS SUMMARY | 2025-07-04 15:18 | XMS_ITS | Encounter Summary ---
Author Organization [facility] [place] [address] Care Team Providers Care Pre Sales Technical Consultant Name Role Phone Jewel Rebolledo MD Primary Care Provider [phone] Encounter Details Date Type Department Care Team (Late Contact Info) Description 03/20/2025 Lab Requisition [facility] - Main Lab [address] [place] [address] Sreekanth Lobato MD 100 [facility] [address] [place] [address] Urinary tract infection, site not [...] Info) Description 07/12/2025 11:00 AM EST Appointment [facility] CT Scan [address] [place] [address] 07/12/2025 1:00 PM EST Appointment [facility] CT Scan [address] [place] [address] 07/21/2025 11:30 AM EST Appointment [facility] Infusion Center [address] [address] 08/11/2025 11:30 AM EST Office Visit [facility] Hematology Oncology [address] [place] [address] Jack Russell MD [address] [place] [address] documented as of this encounter Procedures Procedure [...] reflex microscopic (03/20/2025 12:00 AM EDT) Specific [place] Urine 1.020 1.003 - 1.030 LAB URINALYSIS - AUTOMATED METHOD 03/20/2025 8:48 PM EDT [facility] pH, Urine 6.0 5.0 - 8.0 pH LAB URINALYSIS - AUTOMATED METHOD 03/20/2025 8:48 PM T [facility] Leukocytes, Urine Negative Negative LAB URINALYSIS - AUTOMATED METHOD 03/20/2025 8:48 PM T [facility] Nitrite, Urine Negative Negative LAB URINALYSIS - AUTOMATED METHOD 03/20/2025 8:48 PM [facility] Protein, Urine Negative <=Trace mg/dL LAB URINALYSIS - AUTOMATED METHOD 03/20/2025 8:48 PM [facility] Glucose, Urine >=1000(A) Negative mg/dL LAB URINALYSIS - AUTOMATED METHOD 03/20/2025 8:48 PM [facility] Ketones, Urine Negative Negative mg/dL LAB URINALYSIS - AUTOMATED METHOD 03/20/2025 8:48 PM [facility] Urobilinogen , Urine 0.2 0.2 - 1.0 mg/dL LAB URINALYSIS - AUTOMATED METHOD 03/20/2025 8:48 PM [facility] Bilirubin, Urine Negative Negative LAB URINALYSIS - AUTOMATED METHOD 03/20/2025 8:48 PM [facility] Blood, Urine Negative Negative LAB URINALYSIS - AUTOMATED METHOD 03/20/2025 8:48 PM [facility] RBC, Urine 1.6 0 - 4 /HPF LAB URINALYSIS - AUTOMATED METHOD 03/20/2025 8:48 PM [facility] WBC, Urine 1.8 0 - 4 /HPF LAB URINALYSIS - AUTOMATED METHOD 03/20/2025 8:48 PM [facility] Squamous Epithelial, Urine >100(H) 0 - 60 /LPF LAB URINALYSIS - AUTOMATED METHOD 03/20/2025 8:48 PM [facility] Non-Squamous Epithelial, Urine 2-5 Transitional epithelial cells. /LPF 03/20/2025 8:48 PM [facility] Bacteria, Urine Negative Negative /HPF LAB URINALYSIS - AUTOMATED METHOD 03/20/2025 8:48 PM [facility] Hyaline Casts, Urine 0 0 - 3 /LPF LAB URINALYSIS - AUTOMATED METHOD 03/20/2025 8:48 PM [facility] Urine Urinary bladder structure / Unknown Non-blood Collection / Unknown 03/20/2025 03/20/2025 5:56 PM EDT us Sreekanth Lobato MD LAB URINE ORDERABLES Citlaly sarah Result [facility] [address] [place] [address], [place] [phone] * (ABNORMAL) Culture urine (03/20/2025 12:00 AM EDT) Culture, Urine <1,000 CFU/mL Proteus mirabilis(A ) SAHRA 03/23/2025 8:28 AM EDT [facility] Comment: The organism value for [...] - GENERA L ORDERABLES Final Result [facility] [address] [place] [address], documented in this encounter Visit Diagnoses Diagnosis Urinary tract infection, site not specified documented in this encounter Care Teams Pre Sales Technical Consultant Relationship Specialty Start Date End Date Jewel Rebolledo MD [address] [place] [address] PCP - General 09/25/22 documented as of this encounter
--- OUTSIDE RECORDS SUMMARY | 2025-07-04 15:18 | XMS_ITS | Encounter Summary ---
Author Organization [facility] Address [address] [place] [address] Care Team Providers Care Soda Worker Name Role Phone Pcp, No Primary Care Provider Unavailabl e Encounter Details Date Type Department Care Team (Late st Contact Info) Description 09/29/2022 Scanned Document [facility] Urologic Surgery [address] [place] [address] Sreekanth Lobato MD Social History [...] on filedocumented in this encounter Care Teams Soda Worker Relationship Specialty Start Date End Date Pcp, No PCP - General General Medicine 08/19/23 documented as of this encounter
--- OUTSIDE RECORDS SUMMARY | 2025-07-04 15:18 | XMS_ITS | Encounter Summary ---
Author Organization [facility] [place] [address] Care Team Providers Care Technical Solution Architect Name Role Phone Jewel Rebolledo MD Primary Care Provider Encounter Details Date Type Department Care Team (Latest Contact Info) Description 06/28/2024 Lab Requisition [facility] - Main Lab [address] [place] [phone] Lamonte Sagastume MD [address] [place] [id number] Type 2 diabetes mellitus without complications (CMS/HCC [...] Info) Description 07/12/2025 11:00 AM EST Appointment [facility] CT Scan [address] [place] [phone] 07/12/2025 1:00 PM EST Appointment [facility] CT Scan [address] [place] [address] 07/21/2025 11:30 AM EST Appointment [facility] Infusion Center [address] [phone] 08/11/2025 11:30 AM EST Office Visit [facility] Hematology Oncology [address] [place] [phone] Jack Russell MD [address] [place] [address] documented as of this encounter Procedures Procedure Name Priority Date/Time Associated Diagnosis Comments COMPLETE BLOOD COUNT Routine 06/28/2024 6:01 AM EST Type 2 diabetes mellitus without complications ([facility]/HCC) PHOSPHORUS Routine 06/28/2024 6:01 AM EST Type 2 diabetes mellitus without complications (CMS/HCC) MAGNESIUM Routine 06/28/2024 6:01 AM EST Type 2 diabetes mellitus without complications ([facility]/HCC) COMPREHENSIVE METABOLIC PANEL Routine 06/28/2024 6:01 AM EST Type 2 diabetes mellitus without complications ([facility]/HCC) documented in this encounter Results * Magnesium (06/28/2024 6:01 AM EST) Magnesium 2.3 1.9 - 2.6 mg/dL LAB CHEMISTRY METHOD 06/28/2024 2:41 PM EST [facility] Blood Venous blood specimen / Unknown Venipuncture / Unknown 06/28/2024 6:01 AM EST 06/28/2024 11:11 AM EST us Lamonte Sagastume MD LAB BLOOD ORDERABLES Final Res ult [facility] [address] [place] [address], * Phosphorus (06/28/2024 6:01 AM EST) Phosphorus 2.9 2.5 - 4.5 mg/dL LAB CHEMISTRY METHOD 06/28/2024 2:41 PM [facility] Blood Venous blood specimen / Unknown Venipuncture / Unknown 06/28/2024 6:01 AM EST 06/28/2024 11:11 AM EST us Lamonte Sagastume MD LAB BLOOD ORDERABLES Final Res ult [facility] [address] [place] [address], * (ABNORMAL) Complete blood count (06/28/2024 6:01 AM EST) Pathologist [facility] WBC 5.4 4.8 - 10.8 K/mcL LAB HEMETOLOGY METHOD 06/28/2024 12:41 PM [facility] RBC 3.60(L) 4.50 - 5.50 M/[facility] LAB HEMETOLOGY METHOD 06/28/2024 12:41 PM [facility] Hemoglobin 9.7(L) 13.5 - 17.5 g/dL LAB HEMETOLOGY METHOD 06/28/2024 12:41 PM [facility] Hematocrit 31.9(L) 42.0 - 54.0 % LAB HEMETOLOGY METHOD 06/28/2024 12:41 PM [facility] MCV 89.9 79.0 - 98.0 FL LAB HEMETOLOGY METHOD 06/28/2024 12:41 PM [facility] MCH 27.3 27.0 - 32.0 pcg LAB HEMETOLOGY METHOD 06/28/2024 12:41 PM [facility] MCHC 30.4(L) 32.0 - 37.0 g/dL LAB HEMETOLOGY METHOD 06/28/2024 12:41 PM [facility] RDW 18.2(H) 11.0 - 15.0 % LAB HEMETOLOGY METHOD 06/28/2024 12:41 PM [facility] Platelets 164 130 - 400 K/mcL LAB HEMETOLOGY METHOD 06/28/2024 12:41 PM [facility] MPV 10.8 7.0 - 11.0 FL LAB HEMETOLOGY METHOD 06/28/2024 12:41 PM [facility] NRBC 0.0 <1.0 % LAB HEMETOLOGY METHOD 06/28/2024 12:41 PM [facility] NRBC Absolute 0.00 <0.10 K/mcL LAB HEMETOLOGY METHOD 06/28/2024 12:41 PM [facility] Blood Venous blood specimen / Unknown Venipuncture / Unknown 06/28/2024 6:01 AM EST 06/28/2024 11:11 AM EST us Lamonte Sagastume MD LAB BLOOD ORDERABLES Final Res ult [facility] [address] [place] [address], [place] [phone] * (ABNORMAL) Comprehensive metabolic panel (06/28/2024 6:01 AM EST) Sodium 138 133 - 145 mmol/L LAB CHEMISTRY METHOD 06/28/2024 2:45 PM [facility] Potassium 4.1 3.5 - 5.5 mmol/L LAB CHEMISTRY METHOD 06/28/2024 2:45 PM [facility] Chloride 102 96 - 110 mmol/L LAB CHEMISTRY METHOD 06/28/2024 2:45 PM [facility] CO2 33(H) 21 - 32 mmol/L LAB CHEMISTRY METHOD 06/28/2024 2:45 PM [facility] Anion Gap 3 3 - 11 LAB CHEMISTRY METHOD 06/28/2024 2:45 PM [facility] Glucose 213(H) 70 - 100 mg/dL LAB CHEMISTRY METHOD 06/28/2024 2:45 PM [facility] BUN 47(H) 5 - 25 mg/dL LAB CHEMISTRY METHOD 06/28/2024 2:45 PM [facility] Creatinine 1.02 0.70 - 1.30 mg/dL LAB CHEMISTRY METHOD 06/28/2024 2:45 PM [facility] eGFR 72 >=60 mL/min/1. 73m2 LAB CHEMISTRY METHOD 06/28/2024 2:45 PM [facility] Comment:Calculation based on the Chronic Kidney Disease Epidemiology Collaboration (CKD-EPI) equation refit without adjustment for race. BUN/Creatinine Ratio 46.1 LAB CHEMISTRY METHOD 06/28/2024 2:45 PM [facility] Calcium 8.5 8.5 - 10.5 mg/dL LAB CHEMISTRY METHOD 06/28/2024 2:45 PM [facility] AST (SGOT) 25 10 - 42 unit/L LAB CHEMISTRY METHOD 06/28/2024 2:45 PM [facility] ALT (SGPT) 47 10 - 60 unit/L LAB CHEMISTRY METHOD 06/28/2024 2:45 PM [facility] Alkaline Phosphatase 150(H) 42 - 121 unit/L LAB CHEMISTRY METHOD 06/28/2024 2:45 PM [facility] Total Protein 5.5(L) 6.0 - 8.0 g/dL LAB CHEMISTRY METHOD 06/28/2024 2:45 PM [facility] Albumin 2.7(L) 3.2 - 5.0 g/dL LAB CHEMISTRY METHOD 06/28/2024 2:45 PM [facility] Total Bilirubin 0.3 0.0 - 1.4 mg/dL LAB CHEMISTRY METHOD 06/28/2024 2:45 PM EST [facility] Blood Venous blood specimen / Unknown Venipuncture / Unknown 06/28/2024 6:01 AM EST 06/28/2024 11:11 AM EST us Lamonte Sagastume MD LAB BLOOD ORDERABLES Final Res ult [facility] [address] [place] [address], documented in this encounter Visit Diagnoses Diagnosis Type 2 diabetes mellitus without complications (CMS/HCC V24, CMS/HCC V28) documented in this encounter Care Teams Technical Solution Architect Relationship Specialty Start Date End Date Jewel Rebolledo MD [address] [place] [address] PCP - General 09/25/22 documented as of this encounter
--- OUTSIDE RECORDS SUMMARY | 2025-07-04 15:18 | XMS_ITS | Encounter Summary ---
Author Organization [facility] [place] [address] Care Team Providers Care Factory Focus Technician Name Role Phone Jewel Rebolledo MD Primary Care Provider [phone] Encounter Details Date Type Department Care Team (Latest Contact Info) Description 06/27/2024 Lab Requisition [facility] - Main Lab [address] [place] [address] Lamonte Sagastume MD [address] [place] [phone] 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 (CMS/HCC V24, CMS/HCC V28); Unspecified fall, initial encounter; Type 2 diabetes mellitus without complications (CMS/HCC V24, CMS/[facility] V28) Social History Tobacco Use Types Packs/Day [...] Info) Description 07/12/2025 11:00 AM EST Appointment [facility] CT Scan [address] [place] [address] 07/12/2025 1:00 PM EST Appointment [facility] CT Scan [address] [place] [address] 07/21/2025 11:30 AM EST Appointment [facility] Infusion Center [address] [address] 08/11/2025 11:30 AM EST Office Visit [facility] Hematology Oncology [address] [place] [address] Jack Russell MD [address] [place] [address] documented as of this encounter Procedures Procedure Name Priority Date/Time Associated Diagnosis Comments COMPLETE BLOOD COUNT Routine 06/27/2024 4:47 AM EST 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 ([facility]) Unspecified fall, initial encounter Type 2 diabetes mellitus without complications ([facility]) BASIC METABOLIC PANEL Routine 06/27/2024 4:47 AM EST 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 ([facility]) Unspecified fall, initial encounter Type 2 diabetes mellitus without complications ([facility]) documented in this encounter Results * (ABNORMAL) Complete blood count (06/27/2024 4:47 AM EST) WBC 5.6 4.8 - 10.8 K/[facility] LAB HEMETOLOGY METHOD 06/27/2024 11:31 AM EST [facility] RBC 3.50(L) 4.50 - 5.50 M/[facility] LAB HEMETOLOGY METHOD 06/27/2024 11:31 AM EST [facility] Hemoglobin 9.7(L) 13.5 - 17.5 g/dL LAB HEMETOLOGY METHOD 06/27/2024 11:31 AM EST [facility] Hematocrit 31.4(L) 42.0 - 54.0 % LAB HEMETOLOGY METHOD 06/27/2024 11:31 AM EST [facility] MCV 90.0 79.0 - 98.0 FL LAB HEMETOLOGY METHOD 06/27/2024 11:31 AM [facility] MCH 27.8 27.0 - 32.0 pcg LAB HEMETOLOGY METHOD 06/27/2024 11:31 AM EST [facility] MCHC 30.9(L) 32.0 - 37.0 g/dL LAB HEMETOLOGY METHOD 06/27/2024 11:31 AM [facility] RDW 17.8(H) 11.0 - 15.0 % LAB HEMETOLOGY METHOD 06/27/2024 11:31 AM [facility] Platelets 158 130 - 400 K/mcL LAB HEMETOLOGY METHOD 06/27/2024 11:31 AM EST [facility] MPV 10.5 7.0 - 11.0 [...] MD LAB BLOOD ORDERABLES Final Res ult [facility] [address] [place] [address], * (ABNORMAL) Basic metabolic panel (06/27/2024 4:47 [...] LAB BLOOD ORDERABLES Final Res ult [facility] [address] [place] [address], documented in this encounter Visit Diagnoses Diagnosis 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 ([facility] V24, [facility] V28) Unspecified fall, initial encounter Type 2 diabetes mellitus without complications ([facility] V24, [facility] V28) documented in this encounter Care Teams Factory Focus Technician Relationship Specialty Start Date End Date Jewel Rebolledo MD [address] [place] [address] PCP - General 09/25/22 documented as of this encounter
--- OUTSIDE RECORDS SUMMARY | 2025-07-04 15:18 | XMS_ITS | Encounter Summary ---
Author Organization [facility] [place] [address] Care Team Providers Care Stock Checkerer Name Role Phone Jewel Rebolledo MD Primary Care Provider [phone] Encounter Details Date Type Department Care Team (Late Contact Info) Description 01/09/2025 Lab Requisition [facility] - Main Lab [address] [place] [address] Sreekanth Lobato MD 100 [facility] [address] [place] [address] Intrinsic sphincter deficiency (ISD); Urinary [...] Info) Description 07/12/2025 11:00 AM EST Appointment [facility] CT Scan [address] [place] [address] 07/12/2025 1:00 PM EST Appointment [facility] CT Scan [address] [place] [phone] 07/21/2025 11:30 AM EST Appointment [facility] Infusion Center [address] [phone] 08/11/2025 11:30 AM EST Office Visit [facility] Hematology Oncology [address] [place] [address] Jack Russell MD [address] [place] [phone] documented as of this encounter Procedures Procedure Name Priority Date/Time Associated Diagnosis Comments CULTURE URINE Routine 01/09/2025 12:00 AM EDT Intrinsic sphincter deficiency (ISD) Urinary tract infection, site not specified documented in this encounter Results * (ABNORMAL) Culture urine (01/09/2025 12:00 AM EDT) Culture, Urine 10,000-49,000 CFU/mL Escherichia coli(A) SAHRA 01/13/2025 11:16 AM EDT [facility] Culture, Urine 10,000-49,000 CFU/mL Enterococcus faecium(A) SAHRA 01/13/2025 11:16 AM EDT [facility] Comment: Edited result: Previously reported as Gram Positive Cocci on 01/11/2025 at 0921 EDT. Urine Urine specimen obtained by clean catch procedure / Unknown 01/09/2025 01/09/2025 6:08 PM EDT Narrative [facility] - 01/13/2025 11:16 AM EDT [...] MICROBIOLOGY - GENERA L ORDERABLES Final Result [facility] [address] [place] [address], documented in this encounter Visit Diagnoses Diagnosis Intrinsic sphincter deficiency (ISD) Urinary tract infection, site not specified documented in this encounter Care Teams Stock Checkerer Relationship Specialty Start Date End Date Jewel Rebolledo MD [address] [place] [address] PCP - General 09/25/22 documented as of this encounter
--- OUTSIDE RECORDS SUMMARY | 2025-07-04 15:19 | XMS_ITS | Encounter Summary ---
Author Organization [facility] Address [address] [facility] [address] [place] [address] Phone Care Team Providers Care Sample Weaver Name Role Phone Jewel Rebolledo MD Primary Care Provider [phone] Pcp, Not Required Unavailable Unavailable Wade Seo DO, Justine Unavailable [phone] Luis Aly MD Unavailable [phone] Hodan Rodriguez MD, MPH Unavailable [phone] Encounter Details Date Type Department Care Team (Late st Contact Info) Description 12/08/2024 Procedure Pass [facility], Ct Scan - [address] [address] Social History Tobacco Use Types Packs/Day Years [...] on filedocumented in this encounter Care Teams Sample Weaver Relationship Specialty Start Date End Date Jewel Rebolledo MD [address] [place] [address] PCP - General Internal Medicine 12/08/24 Pcp, Not Required [address] [place] [address] 12/08/24 Serenity Olvera DO [address] [place] [address] [email or web address] Medical Oncology 12/26/24 Luis Aly MD [address] [place] [address] [email or web address] Medical Oncology 12/26/24 Hodan Rodriguez MD, MPH [address] [place] [address] [email or web address] Dermatology 12/26/24 documented as of this encounter Additional Source Comments The information contained in this document represents components of the legal health record. It is not the complete legal health record.[facility]
--- OUTSIDE RECORDS SUMMARY | 2025-07-04 15:19 | XMS_ITS | Clinical Summary ---
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); Squamous cell carcinoma of skin of face Discharge Disposition: Home or Self Care 06/09/2025 11:45 AM EDT Office Visit [facility] Hematology Oncology [address] [place] [address] Jack Russell MD 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); Hypothyroidism due to drugs; Anemia complicating neoplastic disease; Anxiety 06/09/2025 11:30 AM EDT - 06/09/2025 11:59 PM EDT Hospital Encounter [address] [address] 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); Squamous cell carcinoma of skin of face; Acquired hypothyroidism Discharge Disposition: Home or Self Care 05/23/[address] [address] Juanis Mcneill RN 05/19/2025 11:30 AM EDT - 05/19/2025 11:59 PM EDT Hospital Encounter [address] [address] Jack Russell MD 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); Squamous cell carcinoma of skin of face Discharge Disposition: Home or Self Care 05/19/2025 10:00 AM EDT Office Visit [facility] Hematology Oncology [address] [place] [address] Jack Russell MD 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); Hypothyroidism due to drugs; Anemia complicating neoplastic disease; Anxiety 04/28/2025 11:30 AM EDT - 04/28/2025 11:59 PM EDT Hospital Encounter [facility] Infusion Center [address] [address] Squamous cell carcinoma of skin of face [...] Info) Description 07/12/2025 11:00 AM EST Appointment [facility] CT Scan [address] [place] [address] 07/12/2025 1:00 PM EST Appointment [facility] CT Scan [address] [place] [phone] 07/21/2025 11:30 AM EST Appointment [facility] Infusion Center [address] [phone] 08/11/2025 11:30 AM EST Office Visit [facility] Hematology Oncology [address] [place] [phone] Jack Russell MD [address] [place] [phone] Health Maintenance Due Date Last Done Comments [...] LAB HEMETOLOGY METHOD 06/30/2025 12:49 PM EST [facility] RBC 4.00(L) 4.50 - [...] LAB HEMETOLOGY METHOD 06/30/2025 12:49 PM EST [facility] Monocytes Relative 7.5 % [...] NATHAN LAB BLOOD ORDERABLE S Final Result [facility] [address] [place] [address], * Thyroid stimulating hormone (06/30/2025 12:09 PM EST) Only the most recent of4 resultswithin the time period is included. TSH 2.47 0.40 - 4.00 mcIU/mL LAB CHEMISTRY METHOD 06/30/2025 2:07 PM EST [facility] Blood Venous blood specimen / Unknown Venipuncture / Unknown 06/30/2025 12:09 PM EST 06/30/2025 12:35 PM EST us Jack Russell MD LAB BLOOD ORDERABLE S Final Result Performing Organization Address City/[facility]/ZIP Co de Phone Number [facility] [address] [place] [address], * Magnesium (06/30/2025 12:09 PM EST) Only the most recent of3 resultswithin the time period is included. [facility] Magnesium 2.0 1.9 - 2.6 mg/dL LAB CHEMISTRY METHOD 06/30/2025 1:08 PM EST [facility] Blood Venous blood specimen / Unknown Venipuncture / Unknown 06/30/2025 12:09 PM EST 06/30/2025 12:35 PM EST us Jack Russell MD LAB BLOOD ORDERABLE S Final Result [facility] [address] [place] [address], * (ABNORMAL) Comprehensive metabolic panel (06/30/2025 12:09 [...] LAB CHEMISTRY METHOD 06/30/2025 1:09 PM EST [facility] Albumin 3.2 3.2 - 5.0 g/dL LAB CHEMISTRY METHOD 06/30/2025 1:09 PM EST [facility] Total Bilirubin 0.5 0.0 - 1.4 mg/dL LAB CHEMISTRY METHOD 06/30/2025 1:09 PM EST [facility] Blood Venous blood specimen / Unknown Venipuncture / Unknown 06/30/2025 12:09 PM EST 06/30/2025 12:35 PM EST Jack Russell MD LAB BLOOD ORDERABLE S Final Result [facility] [address] [place] [address], from Last 3 Months Insurance MEDICARE [facility] Advance Directives Documents on File Type Date Recorded Patient Manager Medicare Expl anation Health Care Decision (hx) 01/27/2024 CHATO MANDEL DIRECTIVE Care Teams Assistant To The Dean Relationship Specialty Start Date End Date Jewel Rebolledo MD [address] [facility] - General 09/25/22
--- OUTSIDE RECORDS SUMMARY | 2025-07-04 15:19 | XMS_ITS | Clinical Summary ---
Author Organization [facility] Address [address] [place] [address] Care Team Providers Care Church Warden Name Role Phone Pcp, No Primary Care [...] s (ZINC PO) Take by mouth. Active [place]-3 Fatty Acids (FISH OIL PO) Take by [...] Insurance MEDICARE PART A & B [employer] [place] [employer] [facility] - PPO Care Teams Church Warden Relationship Specialty Start Date End Date Pcp, No PCP - General General Medicine 08/19/23
--- OUTSIDE RECORDS SUMMARY | 2025-07-04 15:19 | XMS_ITS | Encounter Summary ---
Author Organization [facility] Address [address] [facility] [address] [place] [address] Phone Care Team Providers Care Car Shifter Name Role Phone Jewel Rebolledo MD Primary Care Provider [phone] Pcp, Not Required Unavailable Unavailable Wade Seo DO, Justine Unavailable [phone] Luis Aly MD Unavailable [phone] Hodan Rodriguez MD, MPH Unavailable [phone] Encounter Details Date Type Department Care Team (Late st Contact Info) Description 12/08/2024 Procedure Pass , Ct Scan - [address] [address] Social History Tobacco Use Types Packs/Day Years [...] filedocumented in this encounter Care Teams Car Shifter Relationship Specialty Start Date End Date Jewel Rebolledo MD [address] [place] [address] PCP - General Internal Medicine 12/08/24 Pcp, Not Required [address] [place] [address] 12/08/24 Serenity Olvera DO [address] [place] [address] [email or web address] Medical Oncology 12/26/24 Luis Aly MD [address] [place] [address] [email or web address] Medical [email or web address] 12/26/24 Hodan Rodriguez MD, MPH [address] [place] [address] [email or web address] Dermatology 12/26/24 documented as of this encounter Additional Source Comments The information contained in this document represents components of the legal health record. It is not the complete legal health record.[facility]
--- OUTSIDE RECORDS SUMMARY | 2025-07-04 15:19 | XMS_ITS | Clinical Summary ---
Author Organization [facility] Address [address] [facility] [address] [place] [address] Phone Care Team Providers Care Bar And Filler Assembler Name Role Phone Jewel Rebolledo MD Primary Care Provider [phone] Pcp, Not Required Unavailable Unavailable Wade Seo DO, Justine Unavailable [phone] Luis Aly MD Unavailable [phone] Hodan Rodriguez MD, MPH Unavailable [phone] Medications LANTUS SOLOSTAR U-100 INSULIN 100 unit/mL [...] Type Department Care Team Description 06/19/2025 Telephone [facility], [address] [place] [address] Francisca Dias MD, MPH 05/30/2025 1:30 PM EDT [facility], [address], [address] [place] [address] Francisca Dias MD, MPH 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) 05/02/2025 9:30 AM EDT [facility] [address] [facility], [address] [place] [address] Francisca Dias MD, MPH 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) 04/20/2025 Telephone [place] [phone] [facility] [address], [place] [address] Rojelio Gallardo MD 04/13/2025 11:45 AM EDT Infusion [facility] Imaging Department, [facility], [id number] [address] [facility], [address] [place] [address] Hodan Rodriguez MD, MPH Diane Molina RN 04/13/2025 11:28 AM EDT - 04/13/2025 11:59 PM EDT Hospital Encounter [facility] [place] [address] [facility], [address] [place] [address] Hodan Rodriguez MD, MPH Discharge Disposition: Home or Self Care 04/13/2025 10:20 AM EDT [facility] [address] [facility], 5th [place] [address] Hodan Rodriguez MD, MPH Squamous cell carcinoma of forehead (Primary Dx) 04/13/2025 Procedure [address] [facility] [place] [address] [facility], [address] [place] [address] 04/13/2025 Procedure Pass [facility] [place] [address] [facility], [address] [place] [address] from Last 3 Months Social History Tobacco [...] clinician's provided indication for this examination in [facility]:Skin cancer, surveillance; Pt with large SCC on [...] clinician's provided indication for this examination in [facility]:Skin cancer, surveillance; Pt with large SCC on [...] EDT) Creatinine 1.00 0.50 - 1.20 mg/dl [facility] LIC# [id number] EGFR 73 >59 mL/min/1.7 3m2 [facility] LIC# [id number] Comment:Estimated glomerular filtration rate calculated using the CKD-EPI refit equation. 04/13/2025 12:0 0 PM EDT 04/13/2025 12:02 PM EDT us Hodan Rodriguez MD, MPH POINT OF CARE TEST ORDERABL ES Final Result [facility] LIC# [id number] [address] [place] [address] * (ABNORMAL) Comprehensive metabolic panel (12/15/2024 10:05 AM EDT) SODIUM 138 133 - 146 mmol/L [facility] POTASSIUM 3.9 3.3 - 5.1 mmol/L [facility] CHLORIDE 100 96 - 108 mmol/L [facility] CO2 30 21 - 35 mmol/L [facility] BUN 30(H) 6 - 19 mg/dL [facility] CREATININE 1.30 0.5 - 1.5 mg/dL [facility] GLUCOSE 253(H) 70 - 99 mg/dL [facility] ALBUMIN 3.7(L) 3.9 - 4.8 g/dL [facility] TOTAL PROTEIN 7.2 6.5 - 8.0 g/dL [facility] CALCIUM 9.6 8.4 - 10.3 mg/dL [facility] ALKALINE PHOSPHATASE 142(H) 39 - 117 U/L [facility] TOTAL BILIRUBIN 0.6 0.0 - 1.2 mg/dL [facility] AST 32 0 - 37 U/L [facility] ALT 22 0 - 40 U/L [facility] GLOBULIN 3.5 1 - 4.8 g/dL [facility] EGFR 53(L) >59 mL/min/1.7 3m2 [facility] Comment:Estimated glomerular filtration rate calculated using the CKD-EPI refit equation. ANION GAP 12 10 - 20 mmol/L [facility] Blood 12/15/2024 10:0 5 AM EDT 12/15/2024 10:07 AM EDT Diann Gutierres MD, PhD LAB BLOOD BKR ORDERABLES Final Result [facility] [address] [place] [address] from Last 3 Months or Most Recently Relevant to Health Maintenance Insurance MEDICARE PART A & B [employer] SUPPLEMENT MEDICARE PART A & B [employer] MEDEX SUPPLEMENT MEDICARE PART A & B [employer] SUPPLEMENT MEDICARE PART A & B [employer] SUPPLEMENT MEDICARE PART A & B [employer] SUPPLEMENT MEDICARE PART A & B [employer] MEDEX SUPPLEMENT Care Teams Bar And Filler Assembler Relationship Specialty Start Date End Date Jewel Rebolledo MD [address] [place] [address] PCP - General Internal Medicine 12/08/24 Pcp, Not Required [address] [place] [address] 12/08/24 Serenity Olvera DO [address] [place] [address] [place] [address] [email or web address] Medical Oncology 12/26/24 Luis Aly MD [address] [place] [address] [email or web address] 12/26/24 Hodan Rodriguez MD, MPH [address] [place] [address] [email or web address] Dermatology 12/26/24 Additional Source Comments The information contained in this document represents components of the legal health record. It is not the complete legal health record.[facility]
--- OUTSIDE RECORDS SUMMARY | 2025-07-04 15:19 | XMS_ITS | Encounter Summary ---
Author Organization [facility] Address [address] [facility] [address] [place] [address] Phone Care Team Providers Care Hat Lining Paster Name Role Phone Jewel Rebolledo MD Primary Care Provider [phone] Pcp, Not Required Unavailable Unavailable Wade Seo DO, Justine Unavailable [phone] Luis Aly MD Unavailable [phone] Hodan Rodriguez MD, MPH Unavailable [phone] Encounter Details Date Type Department Care Team (Late st Contact Info) Description 04/13/2025 Procedure Pass [facility], [facility] [place], [place] [address] [facility], [address] [place] [address] Social History Tobacco Use Types Packs/Day Years [...] on filedocumented in this encounter Care Teams Hat Lining Paster Relationship Specialty Start Date End Date Jewel Rebolledo MD [address] [place] [address] PCP - General Internal Medicine 12/08/24 Pcp, Not Required [address] [place] [address] 12/08/24 Serenity Olvera DO [address] [place] [address] [place] [address] [email or web address] Medical Oncology 12/26/24 Luis Aly MD [address] [place] [address] Medical Oncology 12/26/24 Hodan Rodriguez MD, MPH [address] [place] [address] [email or web address] Dermatology 12/26/24 documented as of this encounter Additional Source Comments The information contained in this document represents components of the legal health record. It is not the complete legal health record.[facility]
--- OUTSIDE RECORDS SUMMARY | 2025-07-04 15:19 | XMS_ITS ---
Author Organization [address] [facility] Address [address] [place] [address] Phone Care Team Providers Care Touch Up Painter Name Role Phone Jewel Rebolledo MD Primary Care Provider [phone] Active Problems Problem Noted Date Diagnosed Date [...]
--- OUTSIDE RECORDS SUMMARY | 2025-07-04 15:19 | XMS_ITS | Encounter Summary ---
Author Organization [facility] Address [address] [place] [address] Phone Care Team Providers Care Lacer And Tier Name Role Phone Jewel Rebolledo MD Primary Care Provider [phone] Pcp, Not Required Unavailable Unavailable Wade Seo DO, Justine Unavailable [phone] Luis Aly MD Unavailable [phone] Hodan Rodriguez MD, MPH Unavailable [phone] Encounter Details Date Type Department Care Team (Late st Contact Info) Description 04/13/2025 Procedure Pass [facility] Imaging Department, [facility] [place], [place] [address] [facility], [address] [place] [address] Social History Tobacco Use Types Packs/Day Years [...] on filedocumented in this encounter Care Teams Lacer And Tier Relationship Specialty Start Date End Date Jewel Rebolledo MD [address] [place] [address] PCP - General Internal Medicine 12/08/24 Pcp, Not Required [address] [place] [address] 12/08/24 Serenity Olvera DO [address] [place] [address] [place] [address] [email or web address] Medical Oncology 12/26/24 Luis Aly MD [address] [place] [address] Medical Oncology 12/26/24 Hodan Rodriguez MD, MPH [address] [place] [address] [email or web address] Dermatology 12/26/24 documented as of this encounter Additional Source Comments The information contained in this document represents components of the legal health record. It is not the complete legal health record.[facility]
--- OUTSIDE RECORDS SUMMARY | 2025-07-04 15:19 | XMS_ITS | Encounter Summary ---
Author Organization [facility] Address [address] [facility] [address] [place] [address] Phone Care Team Providers Care Research Programmer Name Role Phone Jewel Rebolledo MD Primary Care Provider [phone] Pcp, Not Required Unavailable Unavailable Wade Seo DO, Justine Unavailable [phone] Luis Aly MD Unavailable [phone] Hodan Rodriguez MD, MPH Unavailable [phone] Encounter Details Date Type Department Care Team (Late st Contact Info) Description 02/27/2025 Telephone [facility] Center [address] [place] [address] Afua Weiss [address] [place] [address] [address] [place] [address] [email or web address] Social History Tobacco Use Types [...] on filedocumented in this encounter Care Teams Research Programmer Relationship Specialty Start Date End Date Jewel Rebolledo MD [address] [place] [address] PCP - General Internal Medicine 12/08/24 Pcp, Not Required [address] [place] [address] 12/08/24 Serenity Olvera DO [address] [place] [address] [email or web address] Medical Oncology 12/26/24 Luis Aly MD [address] [place] [address] [email or web address] Medical Oncology 12/26/24 Hodan Rodriguez MD, MPH [address] [place] [address] [email or web address] Dermatology 12/26/24 documented as of this encounter Additional Source Comments The information contained in this document represents components of the legal health record. It is not the complete legal health record.[facility]
== END 2025-07-04 14:39 | disposition home or self-care (01) ==
LOC: HO.PMCPRC 13:40
PROVIDERS: PCP Physician Assistant Medical; Visit Provider Anesthesiology
DX: M25.511 Pain in right shoulder (principal); M25.512 Pain in left shoulder; M19.011 Primary osteoarthritis, right shoulder; M19.012 Primary osteoarthritis, left shoulder
CPT/HCPCS: 20610; 77002

== ENCOUNTER 2025-07-26 14:28 | Outpatient (AMB) | payer MEDICARE, SELFPAY ==
[2025-07-26 14:30] VITALS: BP 129/60; PULSE 84; RESP 14; TEMP 36.4; O2SAT 99; BMI 28.3
--- NOTE | 2025-07-26 14:30 | MHC.PC.OV ---
Vital Signs 07/26/25 14:30 Height 5 ft 4.17 in Weight 166 lb BMI 28.3 BP 129/60 Blood Pressure Location Lt brachial Position Sitting Respiration 14 Pulse 84 Pulse Source Pulse Oximeter Temp 97.6 F Temp Source Temporal Artery Scan Pulse Oximetry (%) 99 Oxygen Delivery Method Room Air Intake Visit Reasons: Routine 2 Month F/U Beam Worker Required: No Accompanied by: Spouse Allergies No Known Allergies Allergy (Mild, Verified 07/26/25 15:27) N/A Medication List - Last Reconciled 07/26/25 by Amisha Abraham PA-C apixaban (Eliquis) 2.5 mg PO BID atorvastatin 40 mg PO BEDTIME blood-glucose sensor (BehalfStyle Rob 3 Plus Sensor device) Check glucose 3 times a day with meals blood-glucose,steward/stewardess,cont (FreeStyle Rob 3 [place]) Check glucose 3 times a day with meals cephalexin 500 mg PO BID 10 days cholecalciferol (vitamin D3) (Vitamin D3) 125 mcg PO DAILY clotrimazole-betamethasone 1-0.05 % 1 appl topical BID PRN cyanocobalamin (vitamin B-12) 1,000 mcg PO DAILY cyclobenzaprine 10 mg PO Q8H diaper,brief,adult,disposable As directed - 4 per day diclofenac sodium 1.5% 40 drps topical ONCE PRN 30 days doxycycline monohydrate 100 mg PO BID 10 days erythromycin 0.5 inches ophthalmic (eye) QID ferrous sulfate 325 mg PO DAILY insulin aspart U-100 (Novolog FlexPen U-100 Insulin aspart) 1 sliding scale dose subcut USEASDIRECTD insulin degludec (Tresiba FlexTouch U-100 insulin) 22 units (0.22 mL) subcut BEDTIME isosorbide mononitrate ER 30 mg PO DAILY loratadine (Claritin) 10 mg PO DAILY [id number] oil 300-1,000 mg ([place]-3 Fish Oil) 1 cap PO DAILY pregabalin 150 mg PO QID 90 days torsemide 20 mg PO DAILY walker rollator with basket to be used daily Tobacco use date assessed: 05/01/25 Dental Screening Dental Screen Date: 04/11/25 HPI HPI Comments History of Present Illness Details History of Present Illness The patient is an 89-year-old individual presenting for evaluation of a new-onset left eye swelling and pain. The patient has a history of skin cancer on the forehead, which is treated with chemotherapy infusions at [facility], as surgery was not an option due to the lesion's proximity to the eye. The lesion is described as sometimes shrinking and growing, and has a scabby appearance. The current problem began recently with the left eye becoming red, swollen, and more painful than normal, which has affected the patient's vision. The patient reports attempting to drain the lesions on the head by pressing on them. In addition, the patient has a history of diabetes and is managed by an conductor pullman at [facility], with an upcoming appointment next week. The patient's Hemoglobin A1c has recently increased to 8.0 from 7.3, and the patient reports high blood sugars at night. The patient also reports symptoms of watery eyes and a runny nose, as well as a sore on the buttocks that was previously noted at [facility] but not treated. Social History - Functional Status: The patient has impaired mobility and requires a walker. - Transportation: The patient is dependent on a milk drying machine operator for transportation, who does not drive at night. [facility] Medical History (Updated 07/26/25 @ 15:58 by Amisha Abraham PA-C) Gait abnormality Allergic rhinitis Periorbital cellulitis Pressure ulcer of left buttock, stage 1 Encounter for annual wellness exam in Medicare patient Anemia Walker as ambulation aid Chronic pain syndrome Cough Type 2 diabetes mellitus with hemoglobin A1c goal of less than 7.0% Atrial fibrillation Squamous cell carcinoma of skin of face Arthritis Persistent atrial fibrillation Acute on chronic diastolic (congestive) heart failure Urinary tract infection due to Pseudomonas aeruginosa Recurrent UTI History of prostate cancer Acute retention of urine COVID-19 vaccine series completed History of cardioversion Hx of Lyme disease Tubular adenoma of colon History of ST elevation myocardial infarction (STEMI) (HFpEF) heart failure with preserved ejection fraction Cardiac pacemaker in situ (~12/2020) Hepatorenal syndrome Symptomatic bradycardia Ventricular bigeminy Thrombocytopenia PVC (premature ventricular contraction) CHF exacerbation Bifascicular block Pancytopenia Prostate CA Myocardial infarct, old CAD (coronary artery disease) HLD (hyperlipidemia) Diabetes HTN (hypertension) Surgical History History of colonoscopy (~12/04/21) History of cervical spinal surgery History of radical prostatectomy History of left inguinal hernia repair History of total right knee replacement (TKR) History of lumbar discectomy History of cardiac pacemaker (~12/2020) Family History Father Stromal tumor of the stomach Mother Diabetes Social History Household Members: Spouse Household Members Other:: 1 Housing: House Are you a primary nurse care manager to a significant other at home: No Do you presently have visiting nurse or other home services: Yes Alcohol intake: current Patient Tobacco Use Status: Former Tobacco user Tobacco use type: Cigarette Second Hand Smoke Exposure: No Advance Directives Date on File: 01/04/23 service: Yes Current occupational status: retired Cognitive needs: Yes (walker) Hearing needs: No Vision needs: Yes (reading/cheaters) Questionnaire PHQ-9 Over the last 2 weeks, how often have you been bothered by any of the following problems? 1. Little interest or pleasure in doing things: not at all 2. Feeling down, depressed, or hopeless: not at all 3. Trouble falling or staying asleep, or sleeping too much: not at all 4. Feeling tired or having little energy: not at all 5. Poor appetite or overeating: not at all 6. Feeling bad about yourself - or that you are a failure or have let yourself or your family down: not at all 7. Trouble concentrating on things, such as reading the newspaper or watching television: not at all 8. Moving or speaking so slowly that other people could have noticed. Or the opposite - being so fidgety or restless that you have been moving around a lot more than usual: not at all 9. Thoughts that you would be better off or of hurting yourself in some way: not at all Total score: 0 Depression Screening Interpretation: Negative Depression Screening Done: Yes 92773 - PHQ-9 Billing: Yes Source: Developed by Drs. Joshua Kline, Bre Dhaliwal, Bill Lynne and colleagues, with an educational henna from [employer]. Thrive Questionnaire Date Thrive assessed: 04/11/25 I am a: Patient What is your living situation today?: I have a steady place to live Within the past 12 months, did the food you bought not last and you didn't have the money to get more?: Never true Within the past 12 months, did you worry whether your food would run out before you got money to buy more?: Never true Do you have trouble paying for medicines?: No Do you have trouble getting transportation to medical appointments?: No Do you have trouble paying your heating and electricity bill?: No Do you have trouble taking care of your child, family member or friend?: No Do you have trouble with day-to-day activities such as bathing, preparing meals, shopping, managing finances, etc.?: No Are you currently unemployed and looking for a job?: No Are you interested in more education?: No Please select the resources that you would like help with: None Currently or been in a relationship where the following occur: No concerns reported THRIVE Score: 0 AUDIT C Alcohol Use Questionnaire (AUDIT-C) 1. How often do you have a drink containing alcohol?: Never 3. How often do you have six or more drinks on one occasion?: Never Total Score: 0 Score Reviewed/Action Taken: No LUDWIN-7 AMB Questionnaire LUDWIN-7 Date LUDWIN - 7 assessed: 04/11/25 Feeling nervous, anxious, or on edge: 0 = Not at all Not being able to stop or control worryin = Not at all Worrying too much about different things: 0 = Not at all Trouble relaxin = Not at all Being so restless that it is hard to sit still: 0 = Not at all Becoming easily annoyed or irritable: 0 = Not at all Feeling afraid as if something awful might happen: 0 = Not at all Total LUDWIN-7 score (0-4 normal; 5-9 mild; 10-14 moderate; 15-21 severe): 0 Source: Developed by Drs. Joshua Kline, Bre Dhaliwal, Bill Lynne and colleagues, with an educational henna from [employer]. LUDWIN-7 Assessment Billing LUDWIN-7 Assessment Tool: LUDWIN-7 Assessment 91892 Review of Systems Narrative Review of Systems - Eyes: Reports decreased vision in the left eye, redness, and swelling. Reports watery eyes. Reports pain around the eye, which is worse than normal. - HEENT: Reports rhinorrhea. - Integumentary: Reports multiple lumps on the head and a sore on the buttocks. - Allergies: Denies medication allergies. Const All systems reviewed & are unremarkable except as noted in HPI and below Physical exam (Primary Care) Vital Signs: Last Vital Signs Temp 97.6 F 07/26/25 14:30 Pulse 84 07/26/25 14:30 Resp 14 07/26/25 14:30 BP 129/60 07/26/25 14:30 Pulse Ox 99 07/26/25 14:30 Oxygen Delivery Method Room Air 07/26/25 14:30 Care Plan Goal for BP management: <140/90 at Goal BMI result Body Mass Index 28.3 BMI Assessment/Plan discussion: High BMI High, discussed plan: lifestyle, weight reduction, dietary, physical activity, alcohol moderation and other Tobacco/Smoking Status: Tobacco use Status Tobacco use date assessed 05/01/25 07/26/25 14:32 Patient Tobacco Use Status Former Tobacco user 07/26/25 14:32 Tobacco use type Cigarette 07/26/25 14:32 PHQ-9: PHQ-9 Score PHQ-9: Total score 0 07/26/25 14:50 Depression Screening Interpretation: Negative Thrive Assessment: Date of Thrive Assessment Date Thrive assessed 04/11/25 07/26/25 14:32 Currently or been in a relationship where the following occur: No concerns reported Narrative Physical Exam Appearance: Alert. Oriented X3. No acute distress. Head: Normal external exam. Normocephalic. Atraumatic. Eyes: Pupils are equal, round, and reactive to light. Extraocular movements intact. Conjunctiva and sclera normal. Patient has large squamous cell carcinoma to forehead/left-sided. To the left upper eyelid patient has soft tissue swelling, erythema and tenderness to palpation. Concern for preseptal cellulitis to left eye around the cancer. No pain with extraocular movements. Throat: Pharynx normal. Uvula midline. Moist mucous membranes. Neck: Normal inspection. Neck supple. Full range of motion Cardiovascular: Normal heart rate and rhythm. Heart sound normal. No murmurs noted. Pulses normal throughout. Respiratory: No respiratory distress. Painless inspiration. Breath sounds normal. No wheezes/rales/rhonchi noted. Chest nontender. No accessory muscle usage noted or decreased air movement noted. Back: Full range of motion noted. Skin: Skin warm and dry. Normal skin color. Normal skin turgor. Lesion on forehead being treated with chemotherapy infusions. Extremities: Extremities exhibit normal range of motion. Neuro: Oriented X 3. No motor deficit. No sensory deficit. Reflexes normal. Results AMB Hemoglobin A1c AMB Hemoglobin A1c 8.0 % Last Edit by IRVING Villanueva on 07/26/25 14:51 Results Reviewed Results Reviewed: Laboratory Last Values Hgb A1c (Clinic) 8.0 % (4.0-6.0) H 07/26/25 14:33 - Labs: Hemoglobin A1c is 8.0, which is an increase from 7.3 in March. Coding Level of Care Code Est Pt Level 5 (16852) Complex visit Add On G2211 Diagnoses Periorbital cellulitis L03.213 Squamous cell carcinoma of skin of face C44.320 Type 2 diabetes mellitus with hemoglobin A1c goal of less than 7.0% E11.9 Pressure ulcer of left buttock, stage 1 L89.321 Allergic rhinitis J30.9 Gait abnormality R26.9 Additional Codes LUDWIN-7 Assessment Billing - LUDWIN-7 Assessment Tool: LUDWIN-7 Assessment 91181 ([id number]) PHQ-9 - 50156 - PHQ-9 Billing: Yes ([id number]) Time Spent (min) 75 Assessment & Plan Assessment & Plan (1) Periorbital cellulitis: Code(s): L03.213 - Periorbital cellulitis Category: Medical Plan: The patient's red, swollen, and painful left eye is concerning for periorbital cellulitis, possibly a complication from the patient attempting to drain the adjacent skin cancer lesion. Intact extraocular movements make deeper septal cellulitis less likely at this time. The patient was strongly advised to go to the hospital, but due to logistical issues, a temporizing plan was initiated. Plan includes a 10-day course of oral antibiotics with both Keflex 500 mg four times a day and Doxycycline twice a day, along with a topical antibiotic ointment for the eye. The patient was instructed to seek immediate hospital care at [facility] if symptoms worsen within 24 hours, particularly if the eye swells completely shut. The patient's caregiver will contact the patient's oncologist at [facility] in the morning to coordinate care, and a follow-up appointment is scheduled here in one week as a safety measure. (2) Squamous cell carcinoma of skin of face: Code(s): C44.320 - Squamous cell carcinoma of skin of unspecified parts of face Category: Medical Plan: The patient has an established diagnosis of skin cancer on the head, managed with chemotherapy infusions at [facility]. The patient was counseled against manipulating or draining the lesions, as this can worsen the condition and lead to infection. Follow-up will continue with the oncology team at [facility]. (3) Type 2 diabetes mellitus with hemoglobin A1c goal of less than 7.0%: Code(s): E11.9 - Type 2 diabetes mellitus without complications Category: Medical Plan: The patient's A1c has risen to 8.0 from 7.3, which is likely related to the acute infection. As the patient has an endocrinology appointment next week, no changes were made to the current insulin regimen (Trecebo 32 units at bedtime and a Novolog sliding scale). A printout of the A1c result was provided for the upcoming appointment, and all other current prescriptions will be refilled. (4) Pressure ulcer of left buttock, stage 1: Code(s): L89.321 - Pressure ulcer of left buttock, stage 1 Category: Medical Plan: The patient reports a sore on the buttocks, which is identified as a Stage 1 pressure ulcer. A referral will be made to the Wound Care clinic at [facility] for further evaluation and management. (5) Allergic rhinitis: Code(s): J30.9 - Allergic rhinitis, unspecified Category: Medical Plan: The patient's symptoms of chronic rhinorrhea and watery eyes are suggestive of allergies. Prescribed a trial of daily Claritin to assess for symptomatic improvement. (6) Gait abnormality: Code(s): R26.9 - Unspecified abnormalities of gait and mobility Category: Medical Plan: The patient has impaired mobility requiring a walker. A reprinted prescription for a walker was provided with instructions to obtain it from a medical supply store. Plan Plan Patient was informed and verbally consented to the use of an ambient scribe for clinic note documentation during this visit. 1. Periorbital Cellulitis The patient's red, swollen, and painful left eye is concerning for periorbital cellulitis, possibly a complication from the patient attempting to drain the adjacent skin cancer lesion. Intact extraocular movements make deeper septal cellulitis less likely at this time. The patient was strongly advised to go to the hospital, but due to logistical issues, a temporizing plan was initiated. Plan includes a 10-day course of oral antibiotics with both Keflex 500 mg four times a day and Doxycycline twice a day, along with a topical antibiotic ointment for the eye. The patient was instructed to seek immediate hospital care at [facility] if symptoms worsen within 24 hours, particularly if the eye swells completely shut. The patient's caregiver will contact the patient's oncologist at [facility] in the morning to coordinate care, and a follow-up appointment is scheduled here in one week as a safety measure. 2. Skin Cancer Of Head The patient has an established diagnosis of skin cancer on the head, managed with chemotherapy infusions at [facility]. The patient was counseled against manipulating or draining the lesions, as this can worsen the condition and lead to infection. Follow-up will continue with the oncology team at [facility]. 3. Type 2 Diabetes Mellitus The patient's A1c has risen to 8.0 from 7.3, which is likely related to the acute infection. As the patient has an endocrinology appointment next week, no changes were made to the current insulin regimen (Trecebo 32 units at bedtime and a Novolog sliding scale). A printout of the A1c result was provided for the upcoming appointment, and all other current prescriptions will be refilled. 4. Pressure Ulcer The patient reports a sore on the buttocks, which is identified as a Stage 1 pressure ulcer. A referral will be made to the Wound Care clinic at [facility] for further evaluation and management. 5. Allergic Rhinitis The patient's symptoms of chronic rhinorrhea and watery eyes are suggestive of allergies. Prescribed a trial of daily Claritin to assess for symptomatic improvement. 6. Gait Abnormality The patient has impaired mobility requiring a walker. A reprinted prescription for a walker was provided with instructions to obtain it from a medical supply store. Discussion Notes I explained to the patient that I am concerned about a serious infection around the left eye called periorbital cellulitis. I discussed the risks, including potential blindness if the infection spreads behind the eye, and recommended an immediate visit to the hospital for a possible CT scan and IV antibiotics. Due to the patient's reluctance to go to the ER today, we agreed on a temporizing plan with oral antibiotics, but I stressed that if the eye worsens or closes completely within 24 hours, a hospital visit is mandatory. We developed a plan for the patient's milk drying machine operator to call the patient's oncology team at [facility] tomorrow morning to coordinate care, as they are most familiar with the patient's complex history related to the skin cancer. I also advised against manipulating the skin lesions to prevent further infection. Regarding the elevated A1c, I explained it was likely due to the infection and provided the results for the upcoming endocrinology appointment, advising no change to the current regimen. Finally, I informed the patient of a referral to wound care for the pressure sore on the buttocks. Orders: Orders AMB Hemoglobin A1c Today E11.9 - Type 2 diabetes mellitus without complications Referrals Wound Care Referral L89.321 - Pressure ulcer of left buttock, stage 1 Medications: New erythromycin 0.5 inches ophthalmic (eye) QID 3.5 grams 1RF doxycycline monohydrate 100 mg PO BID 20 tabs 0RF 10 days cephalexin 500 mg PO BID 20 caps 0RF 10 days loratadine (Claritin) 10 mg PO DAILY 90 tabs 3RF Refilled walker rollator with basket to be used daily 1 ea 0RF I48.0 - Paroxysmal atrial fibrillation, I50.30 - Unspecified diastolic (congestive) heart failure, M19.90 - Unspecified osteoarthritis, unspecified site, W19.XXXA - Unspecified fall, initial encounter, Z99.89 - Dependence on other enabling machines and devices Patient Instructions: Patient Instructions - Go to the hospital emergency room immediately if your eye swelling gets worse or if your eye closes completely in the next 24 hours. - rotary planer set up operator your prescriptions from [facility] today. This includes two antibiotics (Keflex, Doxycycline), an allergy pill (Claritin), and an eye ointment. - Start taking the antibiotics as prescribed. One is four times a day and the other is twice a day. - Apply the ointment to your infected eye by pulling down the lower eyelid and rubbing it in. - Call your cancer doctor at [facility] tomorrow morning to tell them about the eye infection and the antibiotics you started. - You have a follow-up appointment here in one week. Please keep it if you are not seen by your doctor at [facility] before then. - Take the allergy pill once a day for your runny nose and watery eyes. - Bring the printed copy of your recent blood sugar (A1c) test to your diabetes doctor appointment next week. - Do not press on or squeeze the sores on your head. - You will be referred to the [place] [facility] for the sore on your bottom. They will contact you to schedule an appointment. - Take the new walker prescription to a medical supply store to get a walker.
--- OUTSIDE RECORDS SUMMARY | 2025-07-26 17:18 | XMS_ITS | Data Portability ---
Author Organization [facility], [facility] Address [address] [place] [address] Assessment Encounter Date Assessment Date Assessment LastModified [...] alignment of the hindfoot. No significant change [id number]. Impression: Chronic left hindfoot deformity post-fusion Plan: [...] does not want to do more surgery. [facility] [place] speech recognition flute grinder software was used to create portions of [...] WB, 2V FOOT WB 2023 024 love [facility], [address], [place], [address], 4 15:13:02 XR, foot, 2 view 2023 024 hgnathan [facility], [address], [place], [address], 4 15:13:02 XR, shoulder, 2 or more view - Recheck bilateral shoulders , room 306 2023 024 [facility], [address], [place], [address], 4 12:35:38 XR, foot, 3 or more view - 309 3V L FOOT 2023 024 [facility] Office, [address], [address], [place], [address], 4 09:56:01 XR, ankle, 3 or more view - 309 -3V L ANKLE 2023 024 [facility] Office, [address], [address], [place], [address], 4 09:56:01 Medication Orders None recorded. 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 Problem Code: M19.272; Problem Code Type: ICD-10; Status: 'A'; Not Available [facility] 4 10:56:23 Acquired pes planus of left foot 706205687595 108 Active 2015 Problem Code: M21.42; Problem Code Type: ICD-10; Status: 'A'; Not Available [facility] 4 10:56:24 Muscle contractu re 27432849 Active 2015 Problem Code: M62.472; Problem Code Type: ICD-10; Status: 'A'; Not Available [facility] 4 10:56:24 Knee joint prosthesi s present 645618979074 Active 2015 Problem Code: Z96.653; Problem Code Type: ICD-10; Status: 'A'; Not Available [facility] 4 10:56:24 Follow-up orthopedi c assessmen t 147738784 Active 2015 Problem Code: Z47.89; Problem Code Type: ICD-10; Status: 'A'; Not Available [facility] 4 10:56:24 Pain in left foot 804832110585 107 Active 2023 TRISTA garland [place] - [facility] 4 10:53:13 Bilateral shoulder joint pain 224155082023 33290 Active 2023 HERMELINDO garland [place] - [facility] 12:17:16 Problem Notes None recorded. Medical Equipment [...] Updated DateTime 11/26/2023 170.18 cm 25.8 kg/m2 14100.74 g TRISTA OCASIO [facility] 11/26/2023 11:03:06 Date Recorded Body height Body mass index (BMI) Body weight Provider Name and Address Organization Details Last Updated DateTime 12/28/2023 170.18 cm 25.8 kg/m2 45786.74 g HERMELINDO ALEXANDER [facility] 12/28/2023 12:16:39 Date Recorded Body height Body mass index (BMI) Body weight Provider Name and Address Organization Details Last Updated DateTime 01/01/2024 170.18 cm 25.8 kg/m2 14904.74 g MIGDALIA Wallace [place] - [facility] 01/01/2024 14:54:46 Social History None recorded. Functional Status None recorded. Mental Status None recorded. Family History Nothing Reported. Medical History No medical history recorded. Past Encounters Encounter ID Performer Location Encounter Start Date Encounter Closed Date Diagnosis/Indication Diagnosis SNOMED-CT Code Diagnosis ICD10 Code Diagnosis IMO Codes Diagnosis Note [id number] [facility] [address] [facility] [place] [address] 11/26/2023 10:38:57 12/17/2023 09:56:01 Instability of joint of left ankle 9793046031 237246 M25.372 Pain in left foot 254097 6168 22229 M79.672 Acquired p es planus of left foot 4002555941 51975 M21.42 [id number] CARLOS Singleton 3rd floor [address] [place] [address] 12/28/2023 11:59:59 01/21/2024 15:03:51 Bilateral shoulder joint pain 3344304032 5775438 M25.322 [id number] MD Amy Virk 1st Floor [address] [facility] [place] [address] 01/01/2024 14:44:47 01/25/2024 14:33:53 Ankle pain 195399049 M25.579 M25.572 Arthritis of left ankle 4933942872 716740 M13.872 Health Concerns Section Related Observation LastModified by Organization Detai ls LastModified Time None Recorded Concern Status LastModified by Organization Details LastModified Time None Recorded Advance Directives Directive None Recorded Payers Insurance Date Sequence Insurance Name Policy Number Policy Ozuna Covered Member ID Ozuna Member ID Guarantor Name 01/01/2024 1 [place] [employer] Jewel Colbert Parent [id number] Jewel Colbert Parent 01/26/2024 2 [place] [id number] Jewel Colbert Parent [id number] Jewel Colbert Parent Notes Date Note [...] visit note. This note was generated with [facility] speech recognition flute grinder dictation software. Please excuse any errors that may have been overlooked during review of this note. Sometimes, these errors may affect the content or meaning of a given sentence. Please call for corrections. Josefina Hollis PA-C [address] [place] [address], [place], [address], [facility] - [facility] 12/28/2023 13:05:17 01/01/2024 text/html [...] pulses X-rays ordered, obtained and reviewed at [facility]: AP, lateral, oblique weightbearing imaging of the left foot and ankle were obtained in clinic today. Imaging demonstrates interval progression of valgus tilt of the ankle joint. There is no bony erosion of the lateral tibial plafond with hykm-dy-bong contact at the superior lateral ankle joint [...] swelling. We will place a referral to [facility] for further workup. I recommended use of the compression stocking and a retrial of the posterior shell hinged AFO brace The patient will follow-up as needed with us. I see no need for further orthopedic evaluation unless the brace proves ineffective in managing his pain or if he decides to pursue surgical treatment Natalia Field MD [address] [place], [place] [address], [place], [address], [facility] - [facility] 01/03/2024 16:03:01
== END 2025-07-26 15:25 | disposition home or self-care (01) ==
LOC: HO.HMCSH 14:28
PROVIDERS: PCP Physician Assistant Medical; Visit Provider Physician Assistant Medical
DX: E11.9 Type 2 diabetes mellitus without complications (principal); L03.213 Periorbital cellulitis; C44.320 Squamous cell carcinoma of skin of unspecified parts of face; L89.321 Pressure ulcer of left buttock, stage 1; J30.9 Allergic rhinitis, unspecified; R26.9 Unspecified abnormalities of gait and mobility

== ENCOUNTER → 2025-07-26 14:28 | Outpatient (BNVA) | payer MEDICARE, SELFPAY | PROVIDERS: PCP Physician Assistant Medical; Visit Provider Physician Assistant Medical | DX: L03.213 Periorbital cellulitis (principal); C44.320 Squamous cell carcinoma of skin of unspecified parts of face; E11.9 Type 2 diabetes mellitus without complications; L89.321 Pressure ulcer of left buttock, stage 1; J30.9 Allergic rhinitis, unspecified; R26.9 Unspecified abnormalities of gait and mobility; Z13.31 Encounter for screening for depression | CPT/HCPCS: 83036; 96127; 99212 ==

== ENCOUNTER 2025-08-02 11:13 | Outpatient (AMB) | payer MEDICARE, SELFPAY ==
--- NOTE | 2025-08-02 11:17 | MHC.OFFVIS ---
Vital Signs 08/02/25 11:18 Height 5 ft 4.17 in Weight 166 lb BMI 28.3 BP 134/6 L Blood Pressure Location Rt brachial Position Sitting Respiration 16 Pulse 70 Pulse Source Pulse Oximeter Pulse Oximetry (%) 99 Oxygen Delivery Method Room Air Intake Visit Reasons: S/P Bilateral shoulder steroid injections 07/04/25 Phlebotomy Coordinator Required: No Accompanied by: Self / Same As Patient Allergies No Known Allergies Allergy (Mild, Verified 08/02/25 11:18) N/A HPI Comments Details: Jewel is back in my office after diagnostic and therapeutic intra-articular bilateral shoulder injections. He reports no help from the injections. Unfortunately for this patient who is very advanced at his age and has very advanced cancer diagnosis unlikely I can offer anything else. The implantable devices probably would not be good idea because with his skin cancer he has limited ability to heal the wounds, he is prone to keratoses, he is prone to infections. I will prescribe him diclofenac ointment so he can not use diclofenac on his shoulders. Prior: very pleasant 89 years old gentleman who presents today in my office with complains on multiple pain generators including pain in bilateral shoulders pain in bilateral elbows pain in bilateral hands. He reports that this pain is related to arthritis. In the past he was receiving intra-articular steroid injection into his shoulders with some alleviation of his pain. Because of his pain he can not sleep normally he can not do activities of daily living and plus-minus able to take care of himself but he can not function normally. He is retired individual. He tried heat application to help his pain as it does not help. He is taking pregabalin and muscle relaxants for his pain. He does not take any NSAIDs. I do not have any images of his joints available for me but I presume it is advanced arthritis. He never had physical therapy. His past medical history significant for atrial fibrillation he is chronically on Eliquis however he can stop this medication for the short procedure. 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 It is too close to his eye. He is status post prostatectomy and stress incontinence with urine. Past surgical history significant for prostatectomy and multiple hospitalizations for diabetes related problems. He denies smoking cigarettes he stopped it 60 years ago, he admits drinking rare glass of wine. He drinks 1 cup of coffee a day he denies recreational drugs. [facility] Medical History (Updated 07/31/25 @ 15:58 by Amisha Abraham PA-C) Pure hypercholesterolemia, unspecified Gait abnormality Allergic rhinitis Periorbital cellulitis Pressure ulcer of left buttock, stage 1 Encounter for annual wellness exam in Medicare patient Anemia Walker as ambulation aid Chronic pain syndrome Cough Type 2 diabetes mellitus with hemoglobin A1c goal of less than 7.0% Atrial fibrillation Squamous cell carcinoma of skin of face Arthritis Persistent atrial fibrillation Acute on chronic diastolic (congestive) heart failure Urinary tract infection due to Pseudomonas aeruginosa Recurrent UTI History of prostate cancer Acute retention of urine COVID-19 vaccine series completed History of cardioversion Hx of Lyme disease Tubular adenoma of colon History of ST elevation myocardial infarction (STEMI) (HFpEF) heart failure with preserved ejection fraction Cardiac pacemaker in situ (~12/2020) Hepatorenal syndrome Symptomatic bradycardia Ventricular bigeminy Thrombocytopenia PVC (premature ventricular contraction) CHF exacerbation Bifascicular block Pancytopenia Prostate CA Myocardial infarct, old CAD (coronary artery disease) HLD (hyperlipidemia) Diabetes HTN (hypertension) Surgical History History of colonoscopy (~12/04/21) History of cervical spinal surgery History of radical prostatectomy History of left inguinal hernia repair History of total right knee replacement (TKR) History of lumbar discectomy History of cardiac pacemaker (~12/2020) Family History Father Stromal tumor of the stomach Mother Diabetes Social History Household Members: Spouse Household Members Other:: 1 Housing: House Are you a primary geriatric personal care aide to a significant other at home: No Do you presently have visiting nurse or other home services: Yes Alcohol intake: current Patient Tobacco Use Status: Former Tobacco user Tobacco use type: Cigarette Second Hand Smoke Exposure: No Advance Directives Date on File: 01/04/23 service: Yes Current occupational status: retired Cognitive needs: Yes (walker) Hearing needs: No Vision needs: Yes (reading/cheaters) Review of Systems Const All systems reviewed & are unremarkable except as noted in HPI and below ENT Reports Normal hearing present Neuro Reports Normal hearing present, Denies Abnormal speech present, Denies confusion and Denies Sensory deficit (Neuro) Psych Denies confusion Physical Exam Vital Signs: Last Vital Signs Pulse 70 08/02/25 11:18 Resp 16 08/02/25 11:18 BP 134/6 L 08/02/25 11:18 Pulse Ox 99 08/02/25 11:18 Oxygen Delivery Method Room Air 08/02/25 11:18 BMI result Body Mass Index 28.3 Const General: no acute distress; No confusion Orientation/consciousness: patient oriented x3 and No confusion HEENT Other: Large squamous cell carcinoma tumor is observe will on top of his left eyebrow. It is covered with large Band-Aid. Eyes General: appearance normal, both eyes and all related structures Pupils: Equal, round and reactive pupils present EOM: EOMs intact bilaterally Neck Neck: Yes full ROM Chest Chest palpation & inspection: normal inspection of the chest Resp Effort & Inspection: normal respiratory effort, able to speak in complete sentences, normal respiratory pattern, no audible wheezes and no cough Cardio Jugular venous distension: no JVD GI Inspection: Yes normal to inspection Neuro General: patient oriented x3, gait normal and No confusion Cranial nerves: Yes CN's II-XII intact bilaterally, Yes Equal, round and reactive pupils present, Yes Normal hearing present and Yes Ability to bilaterally elevate shoulders present Speech: No Abnormal speech present Gait exam (Neuro): Normal gait present Motor exam (neuro): 5/5 motor strength present throughout Sensory Exam: No Sensory deficit (Neuro) Extrem Other: Limited range of motion of the shoulder joints. Osteoarthritis nodules formations are observable on the bilateral hands. General: No pedal edema Psych Speech and movement: Normal speech and movement present Affect: normal affect Attitude: cooperative Thought process: Normal thought process present Thought content: Normal thought content present Insight: Good insight present (Psych) Judgement: Good judgement present (Psych) Assessment & Plan Assessment & Plan (1) Osteoarthritis of shoulders, bilateral: Code(s): M19.011 - Primary osteoarthritis, right shoulder; M19.012 - Primary osteoarthritis, left shoulder Category: Medical (2) Osteoarthritis of hands, bilateral: Code(s): M19.041 - Primary osteoarthritis, right hand; M19.042 - Primary osteoarthritis, left hand Category: Medical (3) Bilateral shoulder pain: Code(s): M25.511 - Pain in right shoulder; M25.512 - Pain in left shoulder Category: Medical Plan No help with injecjion of the bilateral shoulder with steroids. This is unfortunately the last thing which I can offer to this patient. With his advanced diagnosis of skin cancer advanced age unlikely implantable devices will be a good idea. I will prescribe him diclofenac ointment to apply to his shoulders. Medications: Discontinued nihdn-2e-phr-epa-fish oil 300-1,000 mg (Goodell-3 Fish Oil) Discontinued Reason: Order Resumed & Rx - Auto Discontinued 1 cap PO DAILY 90 caps 3RF Coding Level of Care Code Est Pt Level 3 (55114) Diagnoses Osteoarthritis of shoulders, bilateral M19.011; M19.012 Osteoarthritis of hands, bilateral M19.041; M19.042 Bilateral shoulder pain M25.511; M25.512
[2025-08-02 11:18] VITALS: BP 134/6; PULSE 70; RESP 16; O2SAT 99; BMI 28.3
== END 2025-08-02 11:42 | disposition home or self-care (01) ==
LOC: HO.PMC 11:13
PROVIDERS: PCP Physician Assistant Medical; Visit Provider Anesthesiology
DX: M19.011 Primary osteoarthritis, right shoulder (principal); M19.012 Primary osteoarthritis, left shoulder; M19.041 Primary osteoarthritis, right hand; M19.042 Primary osteoarthritis, left hand; M25.511 Pain in right shoulder; M25.512 Pain in left shoulder
CPT/HCPCS: 99213

== ENCOUNTER → 2025-08-02 11:13 | Outpatient (BNVA) | payer MEDICARE, SELFPAY | PROVIDERS: PCP Physician Assistant Medical; Visit Provider Anesthesiology | DX: M19.012 Primary osteoarthritis, left shoulder (principal); M19.011 Primary osteoarthritis, right shoulder; M19.041 Primary osteoarthritis, right hand; M25.511 Pain in right shoulder; M25.512 Pain in left shoulder | CPT/HCPCS: 99212 ==

== ENCOUNTER 2025-08-04 11:28 | Outpatient (AMB) | payer MEDICARE, SELFPAY ==
--- NOTE | 2025-08-04 11:43 | MHC.PC.OV ---
Vital Signs 08/04/25 11:51 Height 5 ft 4.17 in Weight 166 lb BMI 28.3 BP 114/58 L Blood Pressure Location Lt brachial Position Sitting Respiration 16 Pulse 70 Pulse Source Pulse Oximeter Temp 97.3 F Temp Source Temporal Artery Scan Pulse Oximetry (%) 98 Oxygen Delivery Method Room Air Intake Visit Reasons: 1 WK follow up Studio Manager Required: No Accompanied by: Spouse Allergies No Known Allergies Allergy (Mild, Verified 08/04/25 12:27) N/A Medication List - Last Reconciled 08/04/25 by Amisha Abraham PA-C apixaban (Eliquis) 2.5 mg PO BID atorvastatin 40 mg PO BEDTIME blood-glucose sensor (PredectStyle Rob 3 Plus Sensor device) Check glucose 3 times a day with meals blood-glucose,pipe chipper,cont (FreeStyle Rob 3 [place]) Check glucose 3 times a day with meals cephalexin 500 mg PO BID 10 days cholecalciferol (vitamin D3) (Vitamin D3) 125 mcg PO DAILY clotrimazole-betamethasone 1-0.05 % 1 appl topical BID PRN cyanocobalamin (vitamin B-12) 1,000 mcg PO DAILY cyclobenzaprine 10 mg PO Q8H diaper,brief,adult,disposable As directed - 4 per day diclofenac sodium 1.5% 40 drps topical ONCE PRN 30 days doxycycline monohydrate 100 mg PO BID 10 days erythromycin 0.5 inches ophthalmic (eye) QID ferrous sulfate 325 mg PO DAILY insulin aspart U-100 (Novolog FlexPen U-100 Insulin aspart) 1 sliding scale dose subcut USEASDIRECTD insulin glargine (Lantus Solostar U-100 Insulin) 22 units (0.22 mL) subcut BID isosorbide mononitrate ER 30 mg PO DAILY loratadine (Claritin) 10 mg PO DAILY mupirocin 2% 1 appl topical DAILY omega-3 acid ethyl esters (Lovaza) 1 cap PO BID 90 days omega-3 acid ethyl esters 1 cap PO BID 90 days pregabalin 150 mg PO QID 90 days torsemide 20 mg PO DAILY walker rollator with basket to be used daily Tobacco use date assessed: 05/01/25 Dental Screening Dental Screen Date: 04/11/25 HPI HPI Comments History of Present Illness Details History of Present Illness The patient is an 89-year-old male presenting for a follow-up visit for management of squamous cell carcinoma of the forehead and diabetes. He is currently being treated by Oncology at [facility]. He reports that the cancer on his forehead is getting worse and is scheduled for radiation therapy. He was prescribed Keflex and doxycycline a week ago for a possible superimposed skin infection (periorbital cellulitis), but he is unsure if the antibiotics are helping. The lesion produces a significant amount of serosanguinous drainage, which is yellow with a little bit of red. The patient has been pushing on the area to express the fluid, which provides some relief from the pressure and swelling over his eye. He also reports blurry vision and is unable to see much. Regarding his diabetes, he is being followed by [facility] endocrinology, his regimen includes Tresiba 22 units at bedtime and NovoLog on a sliding scale with meals. He reports that he has run out of his diabetes supplies. Although is heading to the pharmacy to ensure that it is there to supervisor opening and picking he believes. The patient was seen at [facility] last week for the forehead head lesion, but he states they did not perform any procedure and only commented that his current treatment was not working and he needed radiation. He is scheduled for possible radiation or discussion for radiation treatment next week at [facility]. Social History - A visiting nurse comes once a week. - He is accompanied by his , who is involved in his care. - He uses a walker for ambulation [facility] Medical History (Updated 08/04/25 @ 12:43 by Amisha Abraham PA-C) Abscess of forehead Cellulitis of forehead Pure hypercholesterolemia, unspecified Gait abnormality Allergic rhinitis Periorbital cellulitis Pressure ulcer of left buttock, stage 1 Encounter for annual wellness exam in Medicare patient Anemia Walker as ambulation aid Chronic pain syndrome Cough Type 2 diabetes mellitus with hemoglobin A1c goal of less than 7.0% Atrial fibrillation Squamous cell carcinoma of skin of face Arthritis Persistent atrial fibrillation Acute on chronic diastolic (congestive) heart failure Urinary tract infection due to Pseudomonas aeruginosa Recurrent UTI History of prostate cancer Acute retention of urine COVID-19 vaccine series completed History of cardioversion Hx of Lyme disease Tubular adenoma of colon History of ST elevation myocardial infarction (STEMI) (HFpEF) heart failure with preserved ejection fraction Cardiac pacemaker in situ (~12/2020) Hepatorenal syndrome Symptomatic bradycardia Ventricular bigeminy Thrombocytopenia PVC (premature ventricular contraction) CHF exacerbation Bifascicular block Pancytopenia Prostate CA Myocardial infarct, old CAD (coronary artery disease) HLD (hyperlipidemia) Diabetes HTN (hypertension) Surgical History History of colonoscopy (~12/04/21) History of cervical spinal surgery History of radical prostatectomy History of left inguinal hernia repair History of total right knee replacement (TKR) History of lumbar discectomy History of cardiac pacemaker (~12/2020) Family History Father Stromal tumor of the stomach Mother Diabetes Social History Household Members: Spouse Household Members Other:: 1 Housing: House Are you a primary ambulatory care nurse to a significant other at home: No Do you presently have visiting nurse or other home services: Yes Alcohol intake: current Patient Tobacco Use Status: Former Tobacco user Tobacco use type: Cigarette Second Hand Smoke Exposure: No Advance Directives Date on File: 01/04/23 service: Yes Current occupational status: retired Cognitive needs: Yes (walker) Hearing needs: No Vision needs: Yes (reading/cheaters) Questionnaire PHQ-9 Over the last 2 weeks, how often have you been bothered by any of the following problems? 1. Little interest or pleasure in doing things: not at all 2. Feeling down, depressed, or hopeless: not at all 3. Trouble falling or staying asleep, or sleeping too much: not at all 4. Feeling tired or having little energy: not at all 5. Poor appetite or overeating: not at all 6. Feeling bad about yourself - or that you are a failure or have let yourself or your family down: not at all 7. Trouble concentrating on things, such as reading the newspaper or watching television: not at all 8. Moving or speaking so slowly that other people could have noticed. Or the opposite - being so fidgety or restless that you have been moving around a lot more than usual: not at all 9. Thoughts that you would be better off or of hurting yourself in some way: not at all Total score: 0 Depression Screening Interpretation: Negative Depression Screening Done: Yes 51333 - PHQ-9 Billing: Yes Source: Developed by Drs. Joshua Kline, Bre Dhaliwal, Bill Lynne and colleagues, with an educational henna from [employer]. Thrive Questionnaire Date Thrive assessed: 04/11/25 I am a: Patient What is your living situation today?: I have a steady place to live Within the past 12 months, did the food you bought not last and you didn't have the money to get more?: Never true Within the past 12 months, did you worry whether your food would run out before you got money to buy more?: Never true Do you have trouble paying for medicines?: No Do you have trouble getting transportation to medical appointments?: No Do you have trouble paying your heating and electricity bill?: No Do you have trouble taking care of your child, family member or friend?: No Do you have trouble with day-to-day activities such as bathing, preparing meals, shopping, managing finances, etc.?: No Are you currently unemployed and looking for a job?: No Are you interested in more education?: No Please select the resources that you would like help with: None Currently or been in a relationship where the following occur: No concerns reported THRIVE Score: 0 AUDIT C Alcohol Use Questionnaire (AUDIT-C) 1. How often do you have a drink containing alcohol?: Never 3. How often do you have six or more drinks on one occasion?: Never Total Score: 0 Score Reviewed/Action Taken: No LUDWIN-7 AMB Questionnaire LUDWIN-7 Date LUDWIN - 7 assessed: 04/11/25 Source: Developed by Drs. Joshua Kline, Bill Wilkins and colleagues, with an educational henna from [employer]. Review of Systems Narrative Review of Systems - General: Reports feeling lousy. - Head: Reports worsening cancer symptoms. - Eyes: Reports blurry vision. - Musculoskeletal: Reports pain in both arms. Const All systems reviewed & are unremarkable except as noted in HPI and below Physical exam (Primary Care) Vital Signs: Last Vital Signs Temp 97.3 F 08/04/25 11:51 Pulse 70 08/04/25 11:51 Resp 16 08/04/25 11:51 BP 114/58 L 08/04/25 11:51 Pulse Ox 98 08/04/25 11:51 Oxygen Delivery Method Room Air 08/04/25 11:51 Care Plan Goal for BP management: <140/90 at Goal BMI result Body Mass Index 28.3 Tobacco/Smoking Status: Tobacco use Status Tobacco use date assessed 05/01/25 08/04/25 11:46 Patient Tobacco Use Status Former Tobacco user 08/04/25 11:46 Tobacco use type Cigarette 08/04/25 11:46 PHQ-9: PHQ-9 Score PHQ-9: Total score 0 08/04/25 11:53 Depression Screening Interpretation: Negative Thrive Assessment: Date of Thrive Assessment Date Thrive assessed 04/11/25 08/04/25 11:46 Currently or been in a relationship where the following occur: No concerns reported Narrative Physical Exam Appearance: Alert. Oriented X3. No acute distress. Head: Normal external exam. Normocephalic. Atraumatic. However, there is a noted a large squamous cell carcinoma lesion on the forehead, which is draining pus and blood. The area is swollen and painful. Eyes: Pupils are equal, round, and reactive to light. Extraocular movements intact. Conjunctiva and sclera normal. Left upper eyelid mildly erythematous with soft tissue swelling and warmth to touch. Right upper eyelid appears normal. Bilateral lower eyelids within normal limits. Vision is reported as blurry, and there is difficulty seeing due to the swelling and pain associated with the carcinoma. Throat: Pharynx normal. Uvula midline. Moist mucous membranes. Neck: Normal inspection. Neck supple. Full range of motion. Cardiovascular: Normal heart rate and rhythm. Respiratory: No respiratory distress. Painless inspiration. Back: Full range of motion noted. Skin: Skin warm and dry. Normal skin color. Normal skin turgor. No rashes/lesions/lacerations noted, except for the carcinoma on the forehead. Extremities: Extremities exhibit normal range of motion. Office Procedures Incision and Drainage Incision and drainage performed by: Amisha Abraham Informed consent given: Yes (Verbal consent) Time out checklist: patient, procedure, site marked/identified, positioning of patient and allergies confirmed Time out staff in room: Yes Time out verified: Yes Time out date: 08/04/25 Time out time: 11:30 Location: Forehead Anesthesia: other (Topical spray) Incision with: other (Manual expression) Drainage quality: purulent, serous and bloody Probed cavity: Yes Culture taken: No Lesion: erythema, drainage, fluctuance, induration and necrosis Lesion size (cm): 5 Hemostasis: pressure Cavity management: irrigated Dressing: gauze Patient tolerated procedure: with pain Complications: No Coding Level of Care Code Est Pt Level 5 (73304) Add On Problem Visit Only Diagnoses Squamous cell carcinoma of skin of face C44.320 Cellulitis of forehead L03.211 Abscess of forehead L02.01 Type 2 diabetes mellitus with hemoglobin A1c goal of less than 7.0% E11.9 CPT Codes Office Procedure ([id number]) Additional Codes PHQ-9 - 03148 - PHQ-9 Billing: Yes ([id number]) Time Spent (min) 75 Assessment & Plan Assessment & Plan (1) Squamous cell carcinoma of skin of face: Code(s): C44.320 - Squamous cell carcinoma of skin of unspecified parts of face Category: Medical Plan: The patient presents with worsening squamous cell carcinoma on his forehead, which appears larger with significant purulent drainage, indicating a superimposed infection despite a one-week course of Keflex and doxycycline. The plan is to continue the oral antibiotics (Keflex and doxycycline). A debridement of scabs and drainage of pus was performed in-office after an attempt to numb the area was unsuccessful, resulting in significant pain for the patient. Wound care instructions were provided to the patient's , including cleaning with normal saline, applying a new prescription for Bactroban (topical antibiotic) onto Xeroform gauze, and covering with additional dressings. Arrangements will be made to increase visiting nurse services to three times a week for dressing changes. The patient is scheduled for radiation therapy, which was recommended as his current treatment is not working. The patient has pain medication at home to manage the pain. (2) Cellulitis of forehead: Code(s): L03.211 - Cellulitis of face Category: Medical Plan: Patient to continue Keflex, doxycycline, Bactroban. Will advise to follow up with wound care as scheduled. Will also reach out to our social science analyst to reach out to the patient's VNA services to add wound care every other day or daily and possibly a STUFFED CASING TIER. In any additional services they will need. (3) Abscess of forehead: Code(s): L02.01 - Cutaneous abscess of face Category: Medical Plan: Patient had incision and drainage of abscess of forehead today. Tolerated procedure well. No complications. (4) Type 2 diabetes mellitus with hemoglobin A1c goal of less than 7.0%: Code(s): E11.9 - Type 2 diabetes mellitus without complications Category: Medical Plan: The patient's current diabetes regimen is Tresiba 22 units once daily at bedtime and NovoLog via a sliding scale before meals. The patient has run out of his diabetes supplies, and a call will be made to the pharmacy to ensure the prescription was received. Although the patient is currently being followed by [facility] endocrinology. Plan Plan Patient was informed and verbally consented to the use of an ambient scribe for clinic note documentation during this visit. 1. Squamous Cell Carcinoma Of Skin Of Forehead With Superimposed Infection The patient presents with worsening squamous cell carcinoma on his forehead, which appears larger with significant purulent drainage, indicating a superimposed infection despite a one-week course of Keflex and doxycycline. The plan is to continue the oral antibiotics (Keflex and doxycycline). A debridement of scabs and drainage of pus was performed in-office after an attempt to numb the area was unsuccessful, resulting in significant pain for the patient. Wound care instructions were provided to the patient's , including cleaning with normal saline, applying a new prescription for Bactroban (topical antibiotic) onto Xeroform gauze, and covering with additional dressings. Arrangements will be made to increase visiting nurse services to three times a week for dressing changes. The patient is scheduled for radiation therapy, which was recommended as his current treatment is not working. The patient has pain medication at home to manage the pain. 2. Diabetes Mellitus The patient's current diabetes regimen is Tresiba 22 units once daily at bedtime and NovoLog via a sliding scale before meals. The patient has run out of his diabetes supplies, and a call will be made to the pharmacy to ensure the prescription was received. 3. Follow-Up The patient will follow up in one week to re-evaluate the forehead wound. Discussion Notes I discussed with the patient and his the findings from today's examination. I explained that while the redness around his eye has improved, the cancer itself appears larger and is clearly infected with a lot of pus. I performed an in-office drainage and debridement procedure to remove scabs and express a significant amount of pus, which caused him considerable pain despite attempts to numb the area. I provided his with detailed wound care instructions, including cleaning the wound daily with normal saline, applying topical Bactroban to Xeroform gauze, and dressing the wound to manage drainage and promote healing. I will contact his visiting nurse agency to request an increase in visits to three times a week for dressing changes. I advised them to continue the oral antibiotics and explained that I will send a new prescription for the topical antibiotic. We scheduled a follow-up appointment in one week to monitor the wound. Medications: New mupirocin 2% 1 appl topical DAILY 22 grams 3RF Patient Instructions: Patient Instructions - Continue taking your oral antibiotics, Keflex and doxycycline, as prescribed. - A new prescription for Bactroban ointment will be sent to your pharmacy. - Please have your change the dressing on your forehead once a day. - Wound care steps: 1. Clean the area with normal saline. 2. Apply the Bactroban antibiotic ointment to the yellow Xeroform gauze. 3. Place the yellow gauze on the wound. 4. Cover with a non-adherent pad and then regular gauze, and secure with tape. - We will try to arrange for a visiting nurse to come three times a week to help with dressing changes. - Continue your diabetes medications: Tresiba 22 units at bedtime and NovoLog with meals. - You have a follow-up appointment here in one week. - You may experience some bleeding today because the wound was cleaned out.
[2025-08-04 11:51] VITALS: BP 114/58; PULSE 70; RESP 16; TEMP 36.3; O2SAT 98; BMI 28.3
== END 2025-08-04 12:17 | disposition home or self-care (01) ==
LOC: HO.HMCSH 11:28
PROVIDERS: PCP Physician Assistant Medical; Visit Provider Physician Assistant Medical
DX: C44.320 Squamous cell carcinoma of skin of unspecified parts of face (principal); L03.211 Cellulitis of face; L02.01 Cutaneous abscess of face; E11.9 Type 2 diabetes mellitus without complications

== ENCOUNTER → 2025-08-04 11:28 | Outpatient (BNVA) | payer MEDICARE, SELFPAY | PROVIDERS: PCP Physician Assistant Medical; Visit Provider Physician Assistant Medical | DX: C44.329 Squamous cell carcinoma of skin of other parts of face (principal); L03.211 Cellulitis of face; L02.01 Cutaneous abscess of face; E11.9 Type 2 diabetes mellitus without complications; Z13.31 Encounter for screening for depression | CPT/HCPCS: 96127; 97597; 99212 ==

== ENCOUNTER → 2025-08-09 15:20 | Outpatient (BNV) | payer MEDICARE, SELFPAY | PROVIDERS: PCP Physician Assistant Medical; Visit Provider Internal Medicine Cardiovascular Disease | DX: Z45.018 Encounter for adjustment and management of other part of cardiac pacemaker (principal) | CPT/HCPCS: 93294 ==